=== PATIENT | male | born 1960 | race Caucasian/White ===

== ENCOUNTER 2016-11-18 17:39 | Inpatient (IN) | payer BC ==
[~2016-11-18] VITALS: Ht 177.8 cm; Wt 108.8 kg
[~2016-11-18 17:39] MED LIST: ASPEC325 PO; ATOR-26 PO; CALC500T64 PO; CLB200 PO; CLOP1TAB15 PO; CYM/30 PO; LISI-461 PO; METO-217 PO; OXYSR10 PO; RXC5 PO; SNK PO
--- NOTE | 2016-11-18 18:05 | EMERGENCY ROOM VISIT NOTE ---
History Report prepared by Shannan: Shiv Richter Under the Supervision of: Dr. Albert Pearson M.D. First contact with patient: 17:56 Chief Complaint: ABDOMINAL PAIN Stated Complaint: REFERRED BY DR FOR TEST FOR PANCREATITIS Nursing Triage Summary: Pt presents with epigastric pain since Sat night. states pt had similar sx 6 yrs ago and had 100% blockage in heart. Denies radiation of pain. N/V/D. Pt states he drinks etoh and has high chol and PCP was concerned for pancreatitis. History of Present Illness The patient is a 56 year old male who presents to the Emergency Room with complaints of persistent epigastric pain that started two nights ago. The pain is temporarily relieves with Tums. The pain is not worsened with exertion or when he takes a deep breath. The pain is similar to when he had 100% blockage of the LAD in 2008. The patient had two stents placed. The patient saw his PCP earlier today and was referred to the ED. The patient is on Plavix. He did not take Aspirin today. The patient is on Meloxicam for arthritis. He continues to smoke. Source of History: patient Onset: two nights ago Position: abdomen (epigastric) Timing: other (persistent) Modifying Factors (Worsening): other (NOT worsened with exertion or breathing) Modifying Factors (Relieving): antacids Review of Systems See HPI for pertinent positives & negatives. A total of 10 systems reviewed and were otherwise negative. 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 (15) Myocardial infarction (16) OBESITY, NOS (17) 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 Family History Cancer Diabetes mellitus Heart disease Hypertension Social History Smoking Status: Current Every Day Smoker Alcohol Use: occasionally Drug Use: none Marital Status: Housing Status: lives with family Occupation Status: employed Current/Historical Medications Scheduled Cholecalciferol (Vitamin D3), 5,000 UNITS PO DAILY Clopidogrel (Plavix), 75 MG PO DAILY Coenzyme Q10 (Ubidecarenone) (Coq10), 200 MG PO DAILY Duloxetine HCl (Cymbalta), 60 MG PO DAILY Fenofibrate (Tricor), 160 MG PO DAILY Lisinopril (Zestril), 40 MG PO DAILY Meloxicam (Mobic), 15 MG PO DAILY Metformin Hcl (Glucophage), 1,000 MG PO BID Metoprolol Succinate (Toprol Xl), 50 MG PO DAILY Pravastatin (Pravachol ), 10 MG PO DAILY Turmeric (Curcuma Longa) (Turmeric), 500 MG PO BID Scheduled PRN Omeprazole (Prilosec), 20 MG PO DAILY PRN for GI Upset Tramadol (Ultram), 50 MG PO Q8H PRN for Pain Allergies Coded Allergies: Penicillins (Verified Allergy, Unknown, AMOXICILLIN-RASH, 05/09/14) Adhesives (Unverified Adverse Reaction, Intermediate, Rash, 01/23/15) Physical Exam Vital Signs Date Time Temp Pulse Resp B/P (MAP) Pulse Ox O2 Delivery O2 Flow Rate FiO2 11/18/16 21:25 71 15 168/88 96 Room Air 11/18/16 19:34 76 19 168/88 96 Room Air 11/18/16 18:24 76 11/18/16 18:20 95 Room Air 11/18/16 18:20 95 Room Air 11/18/16 17:53 37.3 76 18 155/84 95 Room Air Physical Exam GENERAL: Patient is a healthy-appearing well-nourished [] HEAD: Normocephalic atraumatic EYES: Ocular movements intact pupils equal and react to light OROPHARYNX mucous membranes are moist no exudates present no erythema or edema present NECK: Supple no nuchal rigidity CHEST: Good equal expansion LUNGS: Clear and equal to auscultation CARDIAC: Normal S1 and S2 ABDOMEN: Tender in the epigastrium. BACK: No CVA tenderness EXTREMITIES: No pain upon palpation normal muscle strength in all groups no clubbing cyanosis or edema NEURO: Patient is following commands and answering questions appropriately. Alert and oriented x3 Cranial Nerves 2-12 grossly intact Medical Decision & Procedures ER Provider Diagnostic Interpretation: X-ray results as stated below per interpretation by me and the radiologist: Radiology results as stated below per my review and radiologist interpretation: CHEST ONE VIEW PORTABLE HISTORY: Atypical CHEST PAIN COMPARISON: Chest 12/29/2014. FINDINGS: The lungs are clear. Cardiac silhouette is normal in size. No pleural effusions. No pneumothorax. Cervical spinal fusion hardware is again noted. IMPRESSION: No acute process. Electronically signed by: Que Cabral M.D. 11/18/2016 6:27 PM Dictated Date/Time: 11/18/2016 6:26 PM ABDOMEN AND PELVIS CT WITH IV CONTRAST CT DOSE: 860.73 mGy.cm HISTORY: Pt c/o epigastric pain TECHNIQUE: Multiaxial CT images of the abdomen and pelvis were performed following the use of intravenous contrast. COMPARISON STUDY: Abdomen and pelvis CT 11/10/2009. FINDINGS: The lung bases are clear. There are few scattered subcentimeter hypodense lesions within the liver. These are too small to characterize but likely represent cysts. The gallbladder, pancreas, spleen, adrenal glands are unremarkable. Moderate calcified plaque within the normal caliber abdominal aorta. The kidneys enhance normally. No hydronephrosis. Mild bilateral perinephric edema. This is similar to the prior study. There is minimal fat stranding adjacent to the posterior wall of the gastric antrum/duodenal bulb. This is best seen on image 162. No pneumoperitoneum. No pneumatosis. No retroperitoneal lymphadenopathy. Normal bladder. No evidence for bowel obstruction. Normal appendix. IMPRESSION: 1. There is minimal fat stranding adjacent to the posterior wall of the gastric antrum/duodenal bulb. This raises the possibility of peptic ulcer disease or a gastritis/duodenitis. Endoscopy is recommended for further evaluation. 2. No evidence for bowel obstruction. 3. Mild bilateral perinephric edema, unchanged. Electronically signed by: Que Cabral M.D. 11/18/2016 8:16 PM Dictated Date/Time: 11/18/2016 8:08 PM Laboratory Results Test 11/18/16 18:28 Erythrocyte Sedimentation Rate 15 mm/hr (0-14) Estimated Average Glucose 148 mg/dl Hemoglobin A1c 6.8 % (4.5-5.6) Phosphorus Level 3.7 mg/dl (2.5-4.9) Total Creatine Kinase 115 U/L (39-308) Creatine Kinase MB < 0.5 ng/ml (0.5-3.6) Creatine Kinase MB Ratio (0-3.0) Troponin I < 0.015 ng/ml (0-0.045) Amylase Level 36 U/L (25-115) Lipase 119 U/L (73-393) 25-Hydroxy Vitamin D Total 41.3 ng/ml (30-100) Thyroid Stimulating Hormone (TSH) 0.958 uIu/ml (0.300-4.500) Labs reviewed by ED physician. Medications Administered Medications (Trade) Dose Ordered Sig/Sanchez Route Start Time Stop Time Status Last Admin Dose Admin Nitroglycerin (Nitrostat Tab) 0.4 mg PRN PRN SL 11/18/16 18:15 11/19/16 02:43 DC 11/18/16 19:08 0.4 MG Famotidine (Pepcid Tab) 20 mg NOW STAT PO 11/18/16 19:18 11/18/16 19:20 DC 11/18/16 19:30 20 MG Sucralfate (Carafate Tab) 1 gm NOW STAT PO 11/18/16 19:18 11/18/16 19:20 DC 11/18/16 19:29 1 GM Sodium Chloride 1,000 ml @ 999 mls/hr Q1H1M STAT IV 11/18/16 19:18 11/18/16 20:18 DC 11/18/16 19:18 999 MLS/HR Lidocaine HCl (Viscous Lidocaine 2% Soln) 20 ml STK-MED ONCE .ROUTE 11/18/16 19:26 11/18/16 19:27 DC 11/18/16 19:30 20 ML Al Hydroxide/Mg Hydroxide (Maalox Susp) 30 ml STK-MED ONCE .ROUTE 11/18/16 19:27 11/18/16 19:28 DC 11/18/16 19:30 30 ML Hydromorphone HCl (Dilaudid Inj) 1 mg NOW STAT IV 11/18/16 19:55 11/18/16 19:57 DC 11/18/16 20:02 1 MG Ondansetron HCl (Zofran Inj) 4 mg NOW STAT IV 11/18/16 19:55 11/18/16 19:57 DC 11/18/16 20:01 4 MG Hydromorphone HCl (Dilaudid Inj) 1 mg NOW STAT IV 11/18/16 20:28 11/18/16 20:29 DC 11/18/16 20:57 1 MG Metoclopramide HCl (Reglan Inj) 10 mg NOW STAT IV 11/18/16 20:28 11/18/16 20:29 DC 11/18/16 20:56 10 MG Pantoprazole Sodium (Protonix IV Bolus/Drip) 1 ea NOW STAT IV 11/18/16 21:28 11/18/16 21:29 DC 11/18/16 21:28 1 EA Pantoprazole Sodium 80 mg/ Dextrose 120 ml @ 480 mls/hr TODAY@2145 IV 11/18/16 21:45 11/18/16 21:59 DC 11/18/16 21:50 480 MLS/HR Pantoprazole Sodium 40 mg/ Dextrose 100 ml @ 20 mls/hr Q5H IV 11/18/16 22:00 11/19/16 02:59 DC 11/19/16 01:47 20 MLS/HR ECG Indication: chest pain Rate (beats per minute): 71 Rhythm: normal sinus Findings: no acute ischemic change, no ectopy, other (old septal infarct) ED Course 1757: Past medical records reviewed. The patient was evaluated in room B11b. A complete history and physical examination was performed. 1814: Nitrostat 0.4 mg SL. 1917: NSS 1000 ml @ 999 mls/hr, Carafate 1 gm PO, Pepcid 20 mg PO, GI Cocktail 24 ml PO. 2019: Reassessed the patient. He would like to stay in the hospital as he still has significant pain. 2027: Reglan 10 mg IV, Dilaudid 1 mg IV. 2114: The patient will be [facility] Decision Differential diagnosis: Etiologies such as cardiac ischemia, aortic dissection, pulmonary embolism, pneumonia, pneumothorax, musculoskeletal, infections, pericarditis, myocarditis , esophageal rupture, gastrointestinal, as well as others were entertained. Blood Pressure Screening: Patient was found to have an elevated blood pressure and was referred to their primary care doctor for recheck and further treatment Medication Reconciliation: I attest that I have personally reviewed the patient' s current medication list This is a 56-year-old male who presents emergency department complaining of severe epigastric pain. The patient notes that he had the same pain when he had a LAD lesion several years ago. Because of this he was given nitroglycerin in the emergency department which did not affect the patient's pain. He has a normal EKG as well as normal CK-MB and troponin. The patient began complaining of even more increased pain therefore he was given a GI cocktail, Pepcid and Carafate with no improvement in his symptoms. He was also given 1 mg of Dilaudid 2, Zofran and Phenergan. Based on my inability to get the patient's pain under control as well as the CAT scan finding as above I did discuss case with the hospitalist service who agreed to admit the patient. The patient also has an elevation in his calcium level Consults Time Called: 2104 Consulting Physician[facility] Con[facility]lin[facility] Returned Call: 2114 The patient will be evaluated. Impression Primary Impression: Epigastric abdominal pain Additional Impression: Ulcer Scribe Attestation The scribe's documentation has been prepared under my direction and personally reviewed by me in its entirety. I confirm that the note above accurately reflects all work, treatment, procedures, and medical decision making performed by me. Departure Information Dispostion Being Evaluated By Hospitalist Referrals Nitish Lam M.D. (PCP) Patient Instructions [facility] Problem Qualifiers
[2016-11-18] MEDS ORDERED: NITROGLYCERIN 0.4 MG SL PER TAB CHARGE SL PRN (18:15)
--- NOTE | 2016-11-18 18:29 | DIAGNOSTIC IMAGING REPORT ---
CHEST ONE VIEW PORTABLE HISTORY: Atypical CHEST PAIN COMPARISON: Chest 12/29/2014. FINDINGS: The lungs are clear. Cardiac silhouette is normal in size. No pleural effusions. No pneumothorax. Cervical spinal fusion hardware is again noted. IMPRESSION: No acute process. Electronically signed by: Que Cabral M.D. 11/18/2016 6:27 PM Dictated Date/Time: 11/18/2016 6:26 PM
[2016-11-18 18:46] LABS: BASO % 0.5 %; BASO ABS # 0.04 K/uL (0-0.2); COMPLETE YES; EOS % 0.6 %; HEMATOCRIT 41.7 % (42-52); IG% 0.5 %; LYMPH % 24.6 %; LYMPH ABS # 2.11 K/uL (1.2-3.4); MEAN CELL VOLUME 93.3 fL (80-100); MEAN CORPUSCULAR HEMOGLOBIN 33.1 pg (25-34); MEAN CORPUSCULAR HGB CONC 35.5 g/dl (32-36); MEAN PLATELET VOLUME 10.6 fL (7.4-10.4); MONO % 7.1 %; NEUT % 66.7 %; PLATELET COUNT 291 K/uL (130-400); RED BLOOD COUNT 4.47 M/uL (4.7-6.1); WHITE BLOOD COUNT 8.56 K/uL (4.8-10.8)
[2016-11-18 19:06] LABS: BLOOD UREA NITROGEN 12 mg/dl (7-18); BUN/CREATININE RATIO 11.3 (10-20); CARBON DIOXIDE 26 mmol/L (21-32); CHLORIDE 102 mmol/L (98-107); GLUCOSE 138 mg/dl (70-99); POTASSIUM 3.9 mmol/L (3.5-5.1); SODIUM 137 mmol/L (136-145)
[2016-11-18 19:11] LABS: ALKALINE PHOSPHATASE 68 U/L (45-117); ALT/SGPT 28 U/L (12-78); AST/SGOT 16 U/L (15-37)
[2016-11-18] MEDS ORDERED: LISI40TA PO (19:16)
[2016-11-18] MEDS ORDERED: GLC/500 PO (19:17)
[2016-11-18] MEDS ORDERED: MELO15TA4 PO (19:17)
[2016-11-18] MEDS ORDERED: SUCRALFATE 1 GM TAB PO STA (19:18)
[2016-11-18] MEDS ORDERED: SODIUM CHLORIDE 0.9% 1000ML 1,000 ML IV STA (19:18)
[2016-11-18] MEDS ORDERED: GI COCKTAIL PO STA (19:18)
[2016-11-18] MEDS ORDERED: FAMOTIDINE 20 MG TAB PO STA (19:18)
[2016-11-18] MEDS ORDERED: FENO1TAB PO (19:19)
[2016-11-18] MEDS ORDERED: COEN1CAP7 PO (19:20)
[2016-11-18] MEDS ORDERED: CHOLCAP5 PO (19:23)
[2016-11-18] MEDS ORDERED: TRAM-10 PO (19:24)
[2016-11-18] MEDS ORDERED: PRLSR20 PO (19:25)
[2016-11-18] MEDS ORDERED: TURM1CAP4 PO (19:26)
[2016-11-18] MEDS ORDERED: LIDOCAINE HCL 2% VISC SOLN 20 ML UDC ONE (19:26)
[2016-11-18] MEDS ORDERED: ALUMINUM/MAGNESIUM SUSP 30 ML UDC ONE (19:27)
[2016-11-18] MEDS ORDERED: PRAV20TA PO (19:31)
[2016-11-18 19:54] LABS: AMYLASE 36 U/L (25-115)
[2016-11-18] MEDS ORDERED: HYDROmorphone INJ 1 MG/ML SYR IV STA ×2 (19:55→20:28)
[2016-11-18] MEDS ORDERED: ONDANSETRON INJ 2 MG/ML 2 ML VIAL IV STA (19:55)
[2016-11-18] MEDS ORDERED: OPTIRAY 320 IV PRN (20:00)
--- NOTE | 2016-11-18 20:17 | DIAGNOSTIC IMAGING REPORT ---
ABDOMEN AND PELVIS CT WITH IV CONTRAST CT DOSE: 860.73 mGy.cm HISTORY: Pt c/o epigastric pain TECHNIQUE: Multiaxial CT images of the abdomen and pelvis were performed following the use of intravenous contrast. COMPARISON STUDY: Abdomen and pelvis CT 11/10/2009. FINDINGS: The lung bases are clear. There are few scattered subcentimeter hypodense lesions within the liver. These are too small to characterize but likely represent cysts. The gallbladder, pancreas, spleen, adrenal glands are unremarkable. Moderate calcified plaque within the normal caliber abdominal aorta. The kidneys enhance normally. No hydronephrosis. Mild bilateral perinephric edema. This is similar to the prior study. There is minimal fat stranding adjacent to the posterior wall of the gastric antrum/duodenal bulb. This is best seen on image 162. No pneumoperitoneum. No pneumatosis. No retroperitoneal lymphadenopathy. Normal bladder. No evidence for bowel obstruction. Normal appendix. IMPRESSION: 1. There is minimal fat stranding adjacent to the posterior wall of the gastric antrum/duodenal bulb. This raises the possibility of peptic ulcer disease or a gastritis/duodenitis. Endoscopy is recommended for further evaluation. 2. No evidence for bowel obstruction. 3. Mild bilateral perinephric edema, unchanged. Electronically signed by: Que Cabral M.D. 11/18/2016 8:16 PM Dictated Date/Time: 11/18/2016 8:08 PM
[2016-11-18] MEDS ORDERED: METOCLOPRAMIDE HCL INJ 5 MG/ML 2 ML VIAL IV STA (20:28)
[2016-11-18] MEDS ORDERED: PANTOprazole INJ 80 MG in DEXTROSE 5% 100ML IV SCH (21:45)
[2016-11-18] MEDS ORDERED: PANTOprazole INJ 40 MG in DEXTROSE 5% 100ML IV SCH (22:00)
[2016-11-18] MEDS ORDERED: NSS + 20MEQ KCL 1000ML 1,000 ML IV SCH (22:12)
[2016-11-18] MEDS ORDERED: ONDANSETRON INJ 2 MG/ML 2 ML VIAL IV PRN (22:15)
[2016-11-18] MEDS ORDERED: GLUCOSE 40% GEL 15 GM TUBE PO PRN (22:30)
[2016-11-18] MEDS ORDERED: GLUCOSE 10 TABS/TUBE PO PRN (22:30)
[2016-11-18] MEDS ORDERED: DEXTROSE 50% 50 ML SYR IV PRN (22:30)
[2016-11-18] MEDS ORDERED: GLUCAGON FOR INJ 1 MG VIAL SQ PRN (22:30)
--- NOTE | 2016-11-18 22:36 | History and Physical ---
History & Physical Date & Time of Service: Nov 18, 2016 at 22:18 Chief Complaint: Referred By For Test For Pancreatitis Primary Care Physician: Nitish Lam M.D. History of Present Illness Source: patient The patient is a 56-year-old male who presents to the emergency department with severe epigastric pain and bloating, which has been accompanied by nausea and vomiting the past 2 nights, who had been seen by his PCP early in the day today , and was referred to the ED for assessment. The patient had an LAD blockage in 2008 that required 2 stents, was concerned that his symptoms might be indicative of a heart issue. He has not had any recent travels or sick exposures. Has not had any change in dietary intake preceding these symptoms, but has had decreased oral intake since that time due to early satiety. He has not had any blood in stool, but has also had loose stools, and has not noted any blood in vomitus. Past Medical/Surgical History Medical Problems: (1) ANXIETY STATE NOS Status: Chronic (2) ASTHMA, UNSPECIFIED Status: Chronic (3) CHR AIRWAY OBSTRUCT NEC Status: Chronic (4) CORON ATHEROSCLER NOS TYPE VESSEL, [place] OR GRAFT Status: Chronic (5) DIAB JOVITA WO COMPL, TYPE II OR UNSPEC TYPE, NOT UNCNTRLD Status: Chronic (6) DIVERTICULOSIS COLON (W/O MENT OF HEMORRHAGE) Status: Chronic (7) ESOPHAGEAL REFLUX Status: Chronic (8) FAM HX-DIABETES MELLITUS Status: Chronic (9) FAMILY HISTORY OF OTHER CARDIOVASCULAR DISEASES Status: Chronic (10) FAMILY HX-MALIGNANCY NOS Status: Chronic (11) HYPERLIPIDEMIA NEC/NOS Status: Chronic (12) HYPERTENSION NOS Status: Chronic (13) 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 Status: Chronic (14) Myocardial infarction Status: Resolved (15) OBESITY, NOS Status: Chronic (16) 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 Family History Cancer Diabetes mellitus Heart disease Hypertension Social History Smoking Status: Current Every Day Smoker Smokeless Tobacco Use: No Alcohol Use: none Drug Use: none Marital Status: Housing status: lives with family Occupational Status: employed Immunizations History of Influenza Vaccine: No History of Tetanus Vaccine?: No History of Pneumococcal: No History of Hepatitis B Vaccine: No Multi-Drug Resistant Organisms History of MDRO: No Allergies Coded Allergies: Penicillins (Verified Allergy, Unknown, AMOXICILLIN-RASH, 05/09/14) Adhesives (Unverified Adverse Reaction, Intermediate, Rash, 01/23/15) Home Medications Scheduled Cholecalciferol (Vitamin D3), 5,000 UNITS PO DAILY Clopidogrel (Plavix), 75 MG PO DAILY Coenzyme Q10 (Ubidecarenone) (Coq10), 200 MG PO DAILY Duloxetine HCl (Cymbalta), 60 MG PO DAILY Fenofibrate (Tricor), 160 MG PO DAILY Lisinopril (Zestril), 40 MG PO DAILY Meloxicam (Mobic), 15 MG PO DAILY Metformin Hcl (Glucophage), 1,000 MG PO BID Metoprolol Succinate (Toprol Xl), 50 MG PO DAILY Pravastatin (Pravachol ), 10 MG PO DAILY Turmeric (Curcuma Longa) (Turmeric), 500 MG PO BID Scheduled PRN Omeprazole (Prilosec), 20 MG PO DAILY PRN for GI Upset Tramadol (Ultram), 50 MG PO Q8H PRN for Pain Review of Systems The patient denies chest pain, shortness of breath, palpitations, lower extremity swelling, sore throat, fevers, chills, sweats, weight change, pelvic pain, blood in urine or stool, dysuria, urinary frequency or urgency, lightheadedness, dizziness, headache, memory loss, rash, abnormal bruising or bleeding, imbalance, focal or generalized weakness, numbness or tingling in arms or legs, arthralgias or myalgias, back or neck pain, night sweats, or allergy symptoms. The review of systems is otherwise negative other than for that already noted above, and at least 10 systems have been reviewed. Physical Exam Vital Signs Date Time Temp Pulse Resp B/P (MAP) Pulse Ox O2 Delivery O2 Flow Rate FiO2 11/18/16 21:25 71 15 168/88 96 Room Air 11/18/16 19:34 76 19 168/88 96 Room Air 11/18/16 18:24 76 11/18/16 18:20 95 Room Air 11/18/16 18:20 95 Room Air 11/18/16 17:53 37.3 76 18 155/84 95 Room Air The patient is awake, well-developed and adequately nourished, alert and oriented 3, normocephalic and atraumatic, lying in bed and in no acute distress. HEENT--PERRL, EOMI, mucous membranes and oropharynx dry. Neck--supple, no JVD or bruits, thyroid normal, trachea midline, no adenopathy. Heart--normal S1 and S2, no extra beats, no murmurs, rubs or gallops. Lungs--clear bilaterally but decreased throughout, no respiratory distress, no accessory muscle use. Abdomen--normal bowel sounds and soft, nontender and nondistended, no hernias or masses, no organomegaly and obese. Extremities--no cyanosis, clubbing or edema. There are good distal pulses b/l. Dermatologic--normal skin turgor, normal color, warm and dry, no abnormal lymph nodes, no rash. Neurologic--cranial nerves II through XII grossly intact. Rheumatologic--normal range of motion, nontender, muscles and joints. Psychiatric--normal affect. Diagnostics Laboratory Results Results Past 24 Hours Test 11/18/16 18:28 11/18/16 22:06 11/18/16 22:10 Range/Units White Blood Count 8.56 4.8-10.8 K/uL Red Blood Count 4.47 4.7-6.1 M/uL Hemoglobin 14.8 14.0-18.0 g/dL Hematocrit 41.7 42-52 % Mean Corpuscular Volume 93.3 80-100 fL Mean Corpuscular Hemoglobin 33.1 25-34 pg Mean Corpuscular Hemoglobin Concent 35.5 32-36 g/dl Platelet Count 291 130-400 K/uL Mean Platelet Volume 10.6 7.4-10.4 fL Neutrophils (%) (Auto) 66.7 % Lymphocytes (%) (Auto) 24.6 % Monocytes (%) (Auto) 7.1 % Eosinophils (%) (Auto) 0.6 % Basophils (%) (Auto) 0.5 % Neutrophils # (Auto) 5.71 1.4-6.5 K/uL Lymphocytes # (Auto) 2.11 1.2-3.4 K/uL Monocytes # (Auto) 0.61 0.11-0.59 K/uL Eosinophils # (Auto) 0.05 0-0.5 K/uL Basophils # (Auto) 0.04 0-0.2 K/uL RDW Standard Deviation 44.2 36.4-46.3 fL RDW Coefficient of Variation 13.0 11.5-14.5 % Immature Granulocyte % (Auto) 0.5 % Immature Granulocyte # (Auto) 0.04 0.00-0.02 K/uL Sodium Level 137 136-145 mmol/L Potassium Level 3.9 3.5-5.1 mmol/L Chloride Level 102 98-107 mmol/L Carbon Dioxide Level 26 21-32 mmol/L Anion Gap 9.0 3-11 mmol/L Blood Urea Nitrogen 12 7-18 mg/dl Creatinine 1.10 0.60-1.40 mg/dl Est Creatinine Clear Calc Drug Dose 90.5 ml/min Estimated GFR () 85.3 Estimated GFR (Non- 73.6 BUN/Creatinine Ratio 11.3 10-20 Random Glucose 138 70-99 mg/dl Calcium Level 12.0 8.5-10.1 mg/dl Total Bilirubin 0.4 0.2-1 mg/dl Direct Bilirubin < 0.1 0-0.2 mg/dl Aspartate Amino Transf (AST/SGOT) 16 15-37 U/L Alanine Aminotransferase (ALT/SGPT) 28 12-78 U/L Alkaline Phosphatase 68 45-117 U/L Total Creatine Kinase 115 39-308 U/L Creatine Kinase MB < 0.5 0.5-3.6 ng/ml Creatine Kinase MB Ratio 0-3.0 Troponin I < 0.015 0-0.045 ng/ml Total Protein 7.7 6.4-8.2 gm/dl Albumin 4.1 3.4-5.0 gm/dl Amylase Level 36 25-115 U/L Lipase 119 73-393 U/L Diagnostic Radiology Patient Name: RAKEL GAXIOLA Unit Number: [id number] Dictated: 11/18/161825 Transcribed: 11/18/161825 [facility] Printed Date/Time: [~ rep prt dt]/[~ rep prt tm] [~ rep ct labl] - [~ rep ct ivnm] [facility] Radiology Department [place], [place] [address] Dictated: 11/18/161825 Transcribed: 11/18/161825 [facility] Printed Date/Time: [~ rep prt dt]/[~ rep prt tm] [~ rep ct labl] - [~ rep ct ivnm] CHEST ONE VIEW PORTABLE HISTORY: Atypical CHEST PAIN COMPARISON: Chest 12/29/2014. FINDINGS: The lungs are clear. Cardiac silhouette is normal in size. No pleural effusions. No pneumothorax. Cervical spinal fusion hardware is again noted. IMPRESSION: No acute process. Electronically signed by: Que Cabral M.D. 11/18/2016 6:27 PM Dictated Date/Time: 11/18/2016 6:26 PM The status of this report is Signed. Draft = Not yet reviewed or approved by Radiologist. Signed = Reviewed and approved by Radiologist. <AttendingPhy></AttendingPhy> <FamilyPhy>Nitish Lam M.D.</FamilyPhy > <PrimaryPhy>Nitish Lam M.D.</PrimaryPhy> <UnitNumber>[id number]</ UnitNumber> <VisitNumber>[id number]</VisitNumber> <PatientName>RAKEL GAXIOLA JR</PatientName> <DateOfBirth>1960</DateOfBirth> <Location>[facility]</ Location> <ServiceDate>11/18/16</ServiceDate> <MNE>ESINDI</MNE> <OrderingPhy> Albert Pearson MD</OrderingPhy> <OrderingPhyMNE>f rep ord dr null</ OrderingPhyMNE> <DictatingPhyMNE>f rep dict dr null</DictatingPhyMNE> <CCListMNE> f rep ct asae</CCListMNE> <AdmittingPhyMNE>f pt admit dr null</AdmittingPhyMNE> < AttendingPhyMNE>f pt attend dr null</AttendingPhyMNE> <ConsultingPhyMNE>f pt consult dr null</ConsultingPhyMNE> <FamilyPhyMNE>f pt fam dr null</FamilyPhyMNE> <OtherPhyMNE>f pt other dr null</OtherPhyMNE> < PrimaryPhyMNE>f pt prim care dr null</PrimaryPhyMNE> <ReferringPhyMNE>f pt referring dr null</ReferringPhyMNE> Patient Name: RAKEL GAXIOLA JR Unit Number: [id number] Dictated: 11/18/162007 Transcribed: 11/18/162007 [facility] Printed Date/Time: [~ rep prt dt]/[~ rep prt tm] [~ rep ct labl] - [~ rep ct ivnm] [facility] [place] [address] Dictated: 11/18/162007 Transcribed: 11/18/162007 [facility] Printed Date/Time: [~ rep prt dt]/[~ rep prt tm] [~ rep ct labl] - [~ rep ct ivnm] ABDOMEN AND PELVIS CT WITH IV CONTRAST CT DOSE: 860.73 mGy.cm HISTORY: Pt c/o epigastric pain TECHNIQUE: Multiaxial CT images of the abdomen and pelvis were performed following the use of intravenous contrast. COMPARISON STUDY: Abdomen and pelvis CT 11/10/2009. FINDINGS: The lung bases are clear. There are few scattered subcentimeter hypodense lesions within the liver. These are too small to characterize but likely represent cysts. The gallbladder, pancreas, spleen, adrenal glands are unremarkable. Moderate calcified plaque within the normal caliber abdominal aorta. The kidneys enhance normally. No hydronephrosis. Mild bilateral perinephric edema. This is similar to the prior study. There is minimal fat stranding adjacent to the posterior wall of the gastric antrum/duodenal bulb. This is best seen on image 162. No pneumoperitoneum. No pneumatosis. No retroperitoneal lymphadenopathy. Normal bladder. No evidence for bowel obstruction. Normal appendix. IMPRESSION: 1. There is minimal fat stranding adjacent to the posterior wall of the gastric antrum/duodenal bulb. This raises the possibility of peptic ulcer disease or a gastritis/duodenitis. Endoscopy is recommended for further evaluation. 2. No evidence for bowel obstruction. 3. Mild bilateral perinephric edema, unchanged. Electronically signed by: Que Cabral M.D. 11/18/2016 8:16 PM Dictated Date/Time: 11/18/2016 8:08 PM The status of this report is Signed. Draft = Not yet reviewed or approved by Radiologist. Signed = Reviewed and approved by Radiologist. <AttendingPhy></AttendingPhy> <FamilyPhy>Nitish Lam M.D.</FamilyPhy > <PrimaryPhy>Nitish Lam M.D.</PrimaryPhy> <UnitNumber>[id number]</ UnitNumber> <VisitNumber>[id number]</VisitNumber> <PatientName>RAKEL GAXIOLA JR</PatientName> <DateOfBirth>1960</DateOfBirth> <Location>C.ED[facility]</ Location> <ServiceDate>11/18/16</ServiceDate> <MNE>ESINDI</MNE> <OrderingPhy> Albert Pearson MD</OrderingPhy> <OrderingPhyMNE>f rep ord dr null</ OrderingPhyMNE> <DictatingPhyMNE>f rep dict dr null</DictatingPhyMNE> <CCListMNE> f rep ct asae</CCListMNE> <AdmittingPhyMNE>f pt admit dr null</AdmittingPhyMNE> < AttendingPhyMNE>f pt attend dr null</AttendingPhyMNE> <ConsultingPhyMNE>f pt consult dr null</ConsultingPhyMNE> <FamilyPhyMNE>f pt fam dr null</FamilyPhyMNE> <OtherPhyMNE>f pt other dr null</OtherPhyMNE> < PrimaryPhyMNE>f pt prim care dr null</PrimaryPhyMNE> <ReferringPhyMNE>f pt referring dr null</ReferringPhyMNE> EKG EKG shows normal sinus rhythm at 71 bpm, old septal [place], no change compared to . Impression Assessment and Plan Epigastric abdominal pain/CT of abdomen and pelvis with questionable peptic ulcer disease versus gastritis or duodenitis--the patient be admitted to the medical floor with nothing by mouth after midnight except meds status. We'll start him on a Protonix bolus and then drip, normal saline with KCl 20 mEq at 100 mils per hour. We'll consult gastroenterology for possible EGD. Hypercalcemia--calcium was normal last year, and admission labs today show a calcium of 12.0. We'll treat him with pamidronate 60 mg IV x 1 tonight, and hydrate as noted above. We'll check a sedimentation rate, STEPHANIE, PTH, TSH, GOOD level, calcium and phosphorus. Order CT of the chest without contrast. Follow serial BMP and magnesium levels. 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 We'll order an MRI the brain to assess for pituitary tumor. Workup also includes for hyperparathyroidism, and possible Alix-Mcgrath syndrome. Separately, he is having laboratories to assess for sarcoidosis. CAD/hypertension/LAD stents 2 in 2008--continue Plavix 75 mg by mouth daily, lisinopril 40 mg by mouth daily and metoprolol succinate 50 mg by mouth daily. Hold meloxicam 15 mg by mouth daily. We'll follow on telemetry for serial cardiac enzymes and cardiac rhythm monitoring. Diabetes mellitus--hold metformin 1000 mg by mouth twice a day. Check a hemoglobin A1c. Place on Accu-Cheks before meals and at bedtime with NovoLog coverage. Hyperlipidemia--tinny Pravachol 10 mg by mouth daily and fenofibrate 160 mg by mouth daily. Depression/myalgias--continue duloxetine 60 mg by mouth daily, CoQ10 200 mg by mouth daily and vitamin D3 5000 into Patrick units by mouth daily. Hold turmeric due to nonformulary status. Level of Care Telemetry Advanced Directives Existing Advance Directive: No Existing Living Will: No Existing Power of Wax Pattern Coater: No Resuscitation Status FULL RESUSCITATION VTE Prophylaxis VTE Risk Assessment Done? Y/N: Yes Risk Level: Moderate Given or contraindicated: SCD's Social Service Consult None Apply
[2016-11-18 22:56] LABS: CALCIUM 11.9 mg/dl (8.5-10.1); PHOSPHORUS 3.7 mg/dl (2.5-4.9); THYROID STIMULATING HORMONE 0.958 uIu/ml (0.300-4.500)
[2016-11-19] VITALS (9 sets, daily range): BP systolic 111–127; BP diastolic 67–78; PULSE 56–67; TEMP 36.5–37; O2SAT 92–97; Ht 177.8 cm; Wt 108.8 kg
[2016-11-19] MEDS: INSULIN ASPART 100 UNITS/ML 3 ML PEN SC SCH ×5 (00:57→21:49)
[2016-11-19] MEDS ORDERED: NURSING VERBAL MED ORDER ONE ×2 (01:30→01:45)
[2016-11-19] MEDS ORDERED: PAMIDRONATE DISODIUM IV INJ 60 MG in SODIUM CHLORIDE 0.9% 1000ML 1,000 ML IV ONE (01:45)
[2016-11-19] MEDS ORDERED: GADAVIST IV PRN (02:00)
[2016-11-19] MEDS ORDERED: MoRPHine SULFATE 2 MG/ML CARP ONE (02:04)
[2016-11-19] MEDS: PANTOprazole INJ 40 MG in DEXTROSE 5% 100ML IV SCH ×2 (05:23→07:32)
[2016-11-19] MEDS: MoRPHine SULFATE 2 MG/ML CARP IV PRN ×3 (05:23→10:03)
[2016-11-19 05:51] LABS: BASO % 0.6 %; BASO ABS # 0.04 K/uL (0-0.2); COMPLETE YES; EOS % 0.9 %; HEMATOCRIT 38.3 % (42-52); IG% 0.3 %; LYMPH % 30.5 %; LYMPH ABS # 1.94 K/uL (1.2-3.4); MEAN CELL VOLUME 94.8 fL (80-100); MEAN CORPUSCULAR HEMOGLOBIN 31.4 pg (25-34); MEAN CORPUSCULAR HGB CONC 33.2 g/dl (32-36); MEAN PLATELET VOLUME 10.4 fL (7.4-10.4); MONO % 10.8 %; NEUT % 56.9 %; PLATELET COUNT 243 K/uL (130-400); RED BLOOD COUNT 4.04 M/uL (4.7-6.1); WHITE BLOOD COUNT 6.36 K/uL (4.8-10.8)
[2016-11-19 06:24] LABS: ESTIMATED AVERAGE GLUCOSE 148 mg/dl; HA1C FLAG Normal (Normal)
[2016-11-19 06:26] LABS: BUN/CREATININE RATIO 14.4 (10-20); CREATININE 1.1 mg/dl (0.60-1.40); MAGNESIUM 2.2 mg/dl (1.8-2.4); POTASSIUM 4.1 mmol/L (3.5-5.1)
--- NOTE | 2016-11-19 08:18 | Gastrointestinal Consultation ---
Gastrointestinal Consultation Date of Consultation: Nov 19, 2016 Attending Physician: Dr. Conklin Consulting Physician: Dr. Gross Reason for Consultation: Epigastric pain History of Present Illness Patient is a 56 year old male with a PMHX of CAD who presented to the ER yesterday with complaints of severe epigastric pain and bloating for the previous 2 days. He did have associated nausea and vomiting, however, he denied any hematemesis, melena or hematochezia. He does have a history of cardiac cath with stent placement, however, his Troponin was unremarkable. His initial H/H was 14.8/41.7. He does admit to daily Ibuprofen use. He underwent CT Abd/pelvis for further evaluation and was noted to have questionable peptic ulcer disease. He was subsequently admitted to the PCU and started on a Protonix gtt. At the time I saw the patient, he stated that he was feeling much better. He did still complain of mid-epigastric abdominal pain 4/10 in intensity, described as sharp and constant, non-radiating, without exacerbating factors. He denied any melena or hematemesis. He further denies any history of undergoing an EGD in the past. He denies any further complaints. Past Medical/Surgical History Medical Problems: (1) Epigastric abdominal pain Status: Acute (2) Ulcer Status: Acute Past Surgical History: None Family History Cancer Diabetes mellitus Heart disease Hypertension Social History Smoking Status: Current Some Day Smoker Alcohol Use: occasionally Drug Use: none Marital Status: Housing Status: lives with family Occupation Status: employed Allergies Coded Allergies: Penicillins (Verified Allergy, Unknown, AMOXICILLIN-RASH, 05/09/14) Adhesives (Unverified Adverse Reaction, Intermediate, Rash, 01/23/15) Current Medications Home Meds and Scripts Medications Dose Route/Sig Max Daily Dose Days Date Category Pravachol (Pravastatin Sodium) 20 Mg Tab 10 Mg PO DAILY 11/18/16 Reported Turmeric (Turmeric (Curcuma Longa)) 500 Mg Cap 500 Mg PO BID 11/18/16 Reported Prilosec (Omeprazole) 20 Mg Capcr 20 Mg PO DAILY PRN 11/18/16 Reported Ultram (Tramadol HCl) 50 Mg Tab 50 Mg PO Q8H PRN 11/18/16 Reported Vitamin D3 (Cholecalciferol) 5,000 Unit Cap 5,000 Units PO DAILY 11/18/16 Reported Coq10 (Coenzyme Q10 (Ubidecarenone)) 200 Mg Cap 200 Mg PO DAILY 11/18/16 Reported Tricor (Fenofibrate) 160 Mg Tab 160 Mg PO DAILY 11/18/16 Reported Glucophage (Metformin Hcl) 500 Mg Tab 1,000 Mg PO BID 11/18/16 Reported Mobic (Meloxicam) 15 Mg Tab 15 Mg PO DAILY 11/18/16 Reported Zestril (Lisinopril) 40 Mg Tab 40 Mg PO DAILY 11/18/16 Reported Cymbalta (Duloxetine HCl) 30 Mg Cap 60 Mg PO DAILY 01/23/15 Reported Toprol Xl (Metoprolol Succinate) 50 Mg Tabcr 50 Mg PO DAILY 03/29/14 Reported Plavix (Clopidogrel Bisulfate) 75 Mg Tab 75 Mg PO DAILY 03/29/14 Reported Review of Systems Constitutional: No fever, No chills Eyes: No eye pain ENT: No unusual epistaxis Respiratory: No cough, No sputum, No shortness of breath Cardiac: No chest pain, No palpitations Abdomen: No nausea, No vomiting, No diarrhea, No GI bleeding, No dysphagia, No odynophagia, No acolic stools, No jaundice, No dark urine Male : No dysuria, No hematuria Neuro: No weakness, No numbness/tingling Psych: No depression symptoms Heme: No abnormal bleeding/bruising Endo: No fatigue Skin: No rash Physical Exam Date Time Temp Pulse Resp B/P (MAP) Pulse Ox O2 Delivery O2 Flow Rate FiO2 11/19/16 07:53 36.5 60 16 121/73 (89) 96 Room Air 11/19/16 04:00 Room Air 11/19/16 03:13 36.7 65 17 123/71 (88) 96 Room Air 11/19/16 01:07 37.0 67 20 122/78 92 Room Air 11/18/16 22:49 69 15 124/67 93 Room Air 11/18/16 21:25 71 15 168/88 96 Room Air 11/18/16 19:34 76 19 168/88 96 Room Air 11/18/16 18:24 76 11/18/16 18:20 95 Room Air 11/18/16 18:20 95 Room Air 11/18/16 17:53 37.3 76 18 155/84 95 Room Air General Appearance: no apparent distress, + obese Eyes: PERRL, EOMI ENT: hearing grossly normal Neck: supple, no adenopathy Respiratory/Chest: lungs clear Cardiovascular: regular rate, rhythm, no edema, no murmur Abdomen: soft, + tenderness (midepigastric) Extremities: no pedal edema Neurologic/Psych: alert, normal mood/affect, oriented x 3 Skin: normal color Laboratory Results Last 24 Hours Test 11/18/16 18:28 11/18/16 22:48 11/19/16 00:49 11/19/16 05:13 White Blood Count 8.56 K/uL 6.36 K/uL Red Blood Count 4.47 M/uL 4.04 M/uL Hemoglobin 14.8 g/dL 12.7 g/dL Hematocrit 41.7 % 38.3 % Mean Corpuscular Volume 93.3 fL 94.8 fL Mean Corpuscular Hemoglobin 33.1 pg 31.4 pg Mean Corpuscular Hemoglobin Concent 35.5 g/dl 33.2 g/dl Platelet Count 291 K/uL 243 K/uL Mean Platelet Volume 10.6 fL 10.4 fL Neutrophils (%) (Auto) 66.7 % 56.9 % Lymphocytes (%) (Auto) 24.6 % 30.5 % Monocytes (%) (Auto) 7.1 % 10.8 % Eosinophils (%) (Auto) 0.6 % 0.9 % Basophils (%) (Auto) 0.5 % 0.6 % Neutrophils # (Auto) 5.71 K/uL 3.61 K/uL Lymphocytes # (Auto) 2.11 K/uL 1.94 K/uL Monocytes # (Auto) 0.61 K/uL 0.69 K/uL Eosinophils # (Auto) 0.05 K/uL 0.06 K/uL Basophils # (Auto) 0.04 K/uL 0.04 K/uL RDW Standard Deviation 44.2 fL 45.2 fL RDW Coefficient of Variation 13.0 % 13.0 % Immature Granulocyte % (Auto) 0.5 % 0.3 % Immature Granulocyte # (Auto) 0.04 K/uL 0.02 K/uL Erythrocyte Sedimentation Rate 15 mm/hr Sodium Level 137 mmol/L 140 mmol/L Potassium Level 3.9 mmol/L 4.1 mmol/L Chloride Level 102 mmol/L 106 mmol/L Carbon Dioxide Level 26 mmol/L 27 mmol/L Anion Gap 9.0 mmol/L 7.0 mmol/L Blood Urea Nitrogen 12 mg/dl 16 mg/dl Creatinine 1.10 mg/dl 1.10 mg/dl Est Creatinine Clear Calc Drug Dose 90.5 ml/min 90.4 ml/min Estimated GFR () 85.3 85.3 Estimated GFR (Non- 73.6 73.6 BUN/Creatinine Ratio 11.3 14.4 Random Glucose 138 mg/dl 127 mg/dl Estimated Average Glucose 148 mg/dl Hemoglobin A1c 6.8 % Calcium Level 11.9 mg/dl Phosphorus Level 3.7 mg/dl Total Bilirubin 0.4 mg/dl 0.4 mg/dl Direct Bilirubin < 0.1 mg/dl 0.1 mg/dl Aspartate Amino Transf (AST/SGOT) 16 U/L 16 U/L Alanine Aminotransferase (ALT/SGPT) 28 U/L 23 U/L Alkaline Phosphatase 68 U/L 57 U/L Total Creatine Kinase 115 U/L Creatine Kinase MB < 0.5 ng/ml Creatine Kinase MB Ratio Troponin I < 0.015 ng/ml Total Protein 7.7 gm/dl 6.4 gm/dl Albumin 4.1 gm/dl 3.4 gm/dl Amylase Level 36 U/L Lipase 119 U/L 25-Hydroxy Vitamin D Total 41.3 ng/ml Thyroid Stimulating Hormone (TSH) 0.958 uIu/ml Parathyroid Hormone (Intact) < 5.5 pg/mL Bedside Glucose 133 mg/dl Prothrombin Time 11.0 SECONDS Prothromb Time International Ratio 1.0 Activated Partial Thromboplast Time 25.2 SECONDS Partial Thromboplastin Ratio 1.0 Magnesium Level 2.2 mg/dl Test 11/19/16 06:48 Bedside Glucose 126 mg/dl Impression Impression: Patient is a 56 year old male with history of CAD who presented with Midepigastric abdominal pain with chronic NSAID use, and CT imaging showing questinable PUD. Plan: Continue Protonix gtt at this time Perform EGD today for further evaluation
--- NOTE | 2016-11-19 08:21 | DIAGNOSTIC IMAGING REPORT ---
CT SCAN OF THE CHEST WITHOUT IV CONTRAST CLINICAL HISTORY: Hypercalcemia. COMPARISON STUDY: Chest radiograph dated 11/18/2016. TECHNIQUE: CT scan of the thorax was performed from the thoracic inlet to the upper abdomen. Images are reviewed in the axial, sagittal, and coronal planes. IV contrast was not administered for this examination as per the referring clinician. CT DOSE: 739.29 mGy.cm FINDINGS: Thyroid: Imaged portions of the thyroid gland are normal in size and attenuation. Thoracic aorta: There is atherosclerotic calcification of the thoracic aorta, which is normal in caliber and demonstrates standard 3-vessel arch anatomy. Heart: The heart is normal in size and without pericardial effusion. The coronary arteries are densely calcified. The pulmonary trunk is mildly dilated, measuring 3.5 cm. This suggests pulmonary artery hypertension. Lungs and pleural spaces: Mild paraseptal emphysematous change is seen at the lung apices. No airspace consolidation or pleural effusion is identified. The trachea and central airways are clear. There are scattered tiny calcified granulomas. No concerning pulmonary lesion is identified. Mediastinum: There is no mediastinal lymphadenopathy. Leslie: Not well assessed without IV contrast. Axillae: There is no axillary lymphadenopathy. Upper abdomen: Excreted contrast is seen within the partially imaged left renal collecting system. There is cortical retention of contrast suggesting acute renal injury. A tiny hiatal hernia is identified. Adrenal glands are normal in appearance. Mild hepatic steatosis is suggested. Skeletal structures: No lytic or blastic bony lesions are seen. Fusion hardware is seen in the lower cervical spine. Degenerative changes noted throughout the thoracic spine. IMPRESSION: 1. Mild emphysema. 2. There is no airspace consolidation. 3. No mediastinal lymphadenopathy is seen. 4. There is excreted contrast present within the partially imaged left renal collecting system. There is cortical retention of contrast with a striated appearance suggesting acute renal injury. Correlation with clinical findings and serum creatinine levels will be required. Electronically signed by: Kevon Hwang M.D. 11/19/2016 8:20 AM Dictated Date/Time: 11/19/2016 8:16 AM
--- NOTE | 2016-11-19 09:08 | DIAGNOSTIC IMAGING REPORT ---
MRI OF THE BRAIN COMBO PITUITARY GLAND PROTOCOL CLINICAL HISTORY: Generalized abdominal pain. Vomiting. Dizziness. COMPARISON STUDY: TECHNIQUE: MRI of the brain was performed utilizing various T1 and T2-weighted sequences in the axial, sagittal, and coronal planes. Contrast-enhanced sequences were acquired following the administration of 10 cc of Gadavist. Additional high-resolution imaging of the pituitary gland is performed both pre and postcontrast. This includes dynamic postcontrast coronal imaging. FINDINGS: Brain parenchyma: There is mild patchy subcortical and periventricular microangiopathic disease. There is no hemorrhage or mass effect. There is no restricted diffusion to suggest acute ischemia. No enhancing mass lesion is identified on the postcontrast images. Tidwell-white matter differentiation is preserved. No extra-axial fluid collection is seen. The cerebellar tonsils are normal in configuration. Ventricles, sulci, and cisterns: Normal in configuration. Pituitary and sella: The pituitary gland and sella are normal in appearance. There is no evidence of pituitary lesion/microadenoma. Intracranial vasculature: Normal flow voids are maintained at the skull base. Orbits: The bony orbits are grossly intact. Orbital contents are normal in appearance. Sinuses and mastoids: Clear. Calvarium: Unremarkable. Cervical cord: Partially visualized cervical spinal cord is normal in morphology and signal intensity. IMPRESSION: 1. No acute intracranial abnormality. 2. No pituitary lesion is identified. Electronically signed by: Kevon Hwang M.D. 11/19/2016 9:07 AM Dictated Date/Time: 11/19/2016 8:27 AM
--- NOTE | 2016-11-19 12:56 | GI REPORT ---
Procedure Date: 11/19/2016 12:23 PM Procedure: Upper GI endoscopy Indications: Epigastric abdominal pain Medicines: Monitored Anesthesia Care Complications: No immediate complications. Estimated Blood Loss: Estimated blood loss: none. Procedure: Pre-Anesthesia Assessment: - Prior to the procedure, a History and Physical was performed, and patient medications and allergies were reviewed. The patient's tolerance of previous anesthesia was also reviewed. The risks and benefits of the procedure and the sedation options and risks were discussed with the patient. All questions were answered, and informed consent was obtained. Prior Anticoagulants: The patient has taken Plavix (clopidogrel), last dose was 1 day prior to procedure. ASA Grade Assessment: III - A patient with severe systemic disease. After reviewing the risks and benefits, the patient was deemed in satisfactory condition to undergo the procedure. After obtaining informed consent, the endoscope was passed under direct vision. Throughout the procedure, the patient's blood pressure, pulse, and oxygen saturations were monitored continuously. The scope was introduced through the mouth, and advanced to the second part of duodenum. The upper GI endoscopy was accomplished without difficulty. The patient tolerated the procedure well. Findings: The esophagus was normal. Localized moderate inflammation characterized by erythema was found in the gastric antrum. Biopsies were taken with a cold forceps for Helicobacter pylori testing. One non-bleeding cratered gastric ulcer with no stigmata of bleeding was found at the pylorus. The lesion was 10 mm in largest dimension. The examined duodenum was normal. Impression: - Normal esophagus. - Gastritis. Biopsied. - Non-bleeding gastric ulcer with no stigmata of bleeding. - Normal examined duodenum. Recommendation: - [facility] care. - Advance diet as tolerated. - Stop Protonix gtt. - Use Protonix (pantoprazole) 40 mg PO BID. Eduardo Gross DO 11/19/2016 12:55:21 PM This report has been signed electronically. Note Initiated On: 11/19/2016 12:23 PM I attest to the content of the Intraoperative Record and orders documented therein, exceptions below
[2016-11-19] MEDS ORDERED: ESMOLOL HCL 10 MG/ML 10 ML VIAL ONE (12:57)
[2016-11-19] MEDS ORDERED: PROPOFOL IV EMULSION 10 MG/ML 20 ML VIAL IV ONE (12:57)
[2016-11-19] MEDS ORDERED: LIDOCAINE HCL 2% 2 ML VIAL (20MG/ML) ONE (12:57)
[2016-11-19 13:24] LABS: CALCIUM 9.8 mg/dl (8.5-10.1)
--- NOTE | 2016-11-19 13:28 | Anesthesiology Progress Note ---
Anesthesia Post Op Note Date & Time Nov 19, 2016 at 13:28 Vital Signs Pain Intensity: 0 Vital Signs Past 12 Hours Date Time Temp Pulse Resp B/P (MAP) Pulse Ox O2 Delivery O2 Flow Rate FiO2 11/19/16 13:14 57 18 123/62 (82) 96 Room Air 11/19/16 12:59 69 18 95/60 (72) 96 Room Air 11/19/16 11:58 36.7 69 20 123/62 (82) 95 Room Air 11/19/16 11:45 Room Air 11/19/16 11:14 36.8 57 18 118/73 (88) 97 Room Air 11/19/16 10:22 36.5 60 16 121/73 96 Room Air 11/19/16 08:00 Room Air 11/19/16 07:53 36.5 60 16 121/73 (89) 96 Room Air 11/19/16 04:00 Room Air 11/19/16 03:13 36.7 65 17 123/71 (88) 96 Room Air Notes Mental Status: alert / awake / arousable, participated in evaluation Pt Amnestic to Procedure: Yes Nausea / Vomiting: adequately controlled Pain: adequately controlled Airway Patency, RR, SpO2: stable & adequate BP & HR: stable & adequate Hydration State: stable & adequate Anesthetic Complications: no major complications apparent
--- NOTE | 2016-11-19 15:54 | Progress Note ---
Subjective Date of Service: Nov 19, 2016. Subjective Pt evaluation today including: conversation w/ patient, physical exam, lab review, review of studies, conversation w/ wardrobe image consultant, review of inpatient medication list Pain: epigastric pain PO Intake: NPO Voiding: no voiding problems patient was c/o epigastric pain, 5 out of 10, relieved with Morphine EGD today, 10mm gastric ulcer, gastritis, biopsies taken transfer to medical no other issues other than the epigastric pain Problem List Medical Problems: (1) Epigastric abdominal pain Status: Acute (2) Ulcer Status: Acute Review of Systems Abdomen: + pain (epigastric) All Other Systems: Reviewed and Negative Medications Current Inpatient Medications Medications (Trade) Dose Ordered Sig/Sanchez Route Start Time Stop Time Status Last Admin Dose Admin Ioversol (Optiray 320) 121 ml UD PRN IV 11/18/16 20:00 11/22/16 19:59 Ondansetron HCl (Zofran Inj) 4 mg Q6H PRN IV 11/18/16 22:15 12/18/16 22:14 Insulin Aspart (novoLOG ASPART) SLIDING SCALE If C... ACHS SC 11/18/16 23:45 12/18/16 23:44 Glucose (Glucose 40% Gel) UD PRN PO 11/18/16 22:30 12/18/16 22:29 Glucose (Glucose Chew Tab) 1 tabs UD PRN PO 11/18/16 22:30 12/18/16 22:29 Dextrose (Dextrose 50% 50ML Syringe) 50 ml UD PRN IV 11/18/16 22:30 12/18/16 22:29 Glucagon (Glucagon Inj) 1 mg UD PRN SQ 11/18/16 22:30 12/18/16 22:29 Gadobutrol (Gadavist) 10 mmol UD PRN IV 11/19/16 02:00 11/23/16 01:59 Morphine Sulfate (MoRPHine SULFATE INJ) 2 mg Q2H PRN IV 11/19/16 02:45 12/03/16 02:44 11/19/16 10:03 2 MG Pantoprazole Sodium (Protonix Tab) 40 mg BID PO 11/19/16 20:00 12/19/16 20:59 Sucralfate (Carafate Susp) 1 gm ACHS PO 11/19/16 16:15 12/19/16 16:14 Objective Vital Signs Date Time Temp Pulse Resp B/P (MAP) Pulse Ox O2 Delivery O2 Flow Rate FiO2 11/19/16 15:35 36.7 56 18 127/76 (93) 96 Room Air 11/19/16 15:11 36.6 60 18 95 11/19/16 13:40 36.6 60 18 111/70 (84) 95 Room Air 11/19/16 13:29 59 18 108/62 (77) 96 Room Air 11/19/16 13:14 57 18 123/62 (82) 96 Room Air 11/19/16 12:59 69 18 95/60 (72) 96 Room Air 11/19/16 11:58 36.7 69 20 123/62 (82) 95 Room Air 11/19/16 11:45 Room Air 11/19/16 11:14 36.8 57 18 118/73 (88) 97 Room Air 11/19/16 10:22 36.5 60 16 121/73 96 Room Air 11/19/16 08:00 Room Air 11/19/16 07:53 36.5 60 16 121/73 (89) 96 Room Air 11/19/16 04:00 Room Air 11/19/16 03:13 36.7 65 17 123/71 (88) 96 Room Air 11/19/16 01:07 37.0 67 20 122/78 92 Room Air 11/18/16 22:49 69 15 124/67 93 Room Air 11/18/16 21:25 71 15 168/88 96 Room Air 11/18/16 19:34 76 19 168/88 96 Room Air 11/18/16 18:24 76 11/18/16 18:20 95 Room Air 11/18/16 18:20 95 Room Air 11/18/16 17:53 37.3 76 18 155/84 95 Room Air Physical Exam General Appearance: WD/WN, no apparent distress Neck: supple, no adenopathy, no JVD, trachea midline Respiratory/Chest: chest non-tender, lungs clear, normal breath sounds, no respiratory distress, no accessory muscle use Cardiovascular: regular rate, rhythm, no edema, no gallop, no JVD, no murmur Abdomen: normal bowel sounds, soft, no organomegaly, + tenderness (epigastric) Extremities: normal range of motion, non-tender, normal inspection, no pedal edema, no calf tenderness, pelvis stable 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, no motor/sensory deficits, alert, normal mood/affect, oriented x 3 Skin: normal color, warm/dry, no rash Lymphatic: no adenopathy Laboratory Results Last 24 Hours Test 11/18/16 18:28 11/18/16 22:48 11/19/16 00:49 11/19/16 05:13 White Blood Count 8.56 K/uL 6.36 K/uL Red Blood Count 4.47 M/uL 4.04 M/uL Hemoglobin 14.8 g/dL 12.7 g/dL Hematocrit 41.7 % 38.3 % Mean Corpuscular Volume 93.3 fL 94.8 fL Mean Corpuscular Hemoglobin 33.1 pg 31.4 pg Mean Corpuscular Hemoglobin Concent 35.5 g/dl 33.2 g/dl Platelet Count 291 K/uL 243 K/uL Mean Platelet Volume 10.6 fL 10.4 fL Neutrophils (%) (Auto) 66.7 % 56.9 % Lymphocytes (%) (Auto) 24.6 % 30.5 % Monocytes (%) (Auto) 7.1 % 10.8 % Eosinophils (%) (Auto) 0.6 % 0.9 % Basophils (%) (Auto) 0.5 % 0.6 % Neutrophils # (Auto) 5.71 K/uL 3.61 K/uL Lymphocytes # (Auto) 2.11 K/uL 1.94 K/uL Monocytes # (Auto) 0.61 K/uL 0.69 K/uL Eosinophils # (Auto) 0.05 K/uL 0.06 K/uL Basophils # (Auto) 0.04 K/uL 0.04 K/uL RDW Standard Deviation 44.2 fL 45.2 fL RDW Coefficient of Variation 13.0 % 13.0 % Immature Granulocyte % (Auto) 0.5 % 0.3 % Immature Granulocyte # (Auto) 0.04 K/uL 0.02 K/uL Erythrocyte Sedimentation Rate 15 mm/hr Sodium Level 137 mmol/L 140 mmol/L Potassium Level 3.9 mmol/L 4.1 mmol/L Chloride Level 102 mmol/L 106 mmol/L Carbon Dioxide Level 26 mmol/L 27 mmol/L Anion Gap 9.0 mmol/L 7.0 mmol/L Blood Urea Nitrogen 12 mg/dl 16 mg/dl Creatinine 1.10 mg/dl 1.10 mg/dl Est Creatinine Clear Calc Drug Dose 90.5 ml/min 90.4 ml/min Estimated GFR () 85.3 85.3 Estimated GFR (Non- 73.6 73.6 BUN/Creatinine Ratio 11.3 14.4 Random Glucose 138 mg/dl 127 mg/dl Estimated Average Glucose 148 mg/dl Hemoglobin A1c 6.8 % Calcium Level 11.9 mg/dl 9.8 mg/dl Phosphorus Level 3.7 mg/dl Total Bilirubin 0.4 mg/dl 0.4 mg/dl Direct Bilirubin < 0.1 mg/dl 0.1 mg/dl Aspartate Amino Transf (AST/SGOT) 16 U/L 16 U/L Alanine Aminotransferase (ALT/SGPT) 28 U/L 23 U/L Alkaline Phosphatase 68 U/L 57 U/L Total Creatine Kinase 115 U/L Creatine Kinase MB < 0.5 ng/ml Creatine Kinase MB Ratio Troponin I < 0.015 ng/ml Total Protein 7.7 gm/dl 6.4 gm/dl Albumin 4.1 gm/dl 3.4 gm/dl Amylase Level 36 U/L Lipase 119 U/L 25-Hydroxy Vitamin D Total 41.3 ng/ml Thyroid Stimulating Hormone (TSH) 0.958 uIu/ml Parathyroid Hormone (Intact) < 5.5 pg/mL Bedside Glucose 133 mg/dl Prothrombin Time 11.0 SECONDS Prothromb Time International Ratio 1.0 Activated Partial Thromboplast Time 25.2 SECONDS Partial Thromboplastin Ratio 1.0 Magnesium Level 2.2 mg/dl Test 11/19/16 06:48 Bedside Glucose 126 mg/dl Assessment and Plan 56 yo male with epigastric pain of several days duration, vomiting several days ago - Epigastric pain: 10mm gastric ulcer, no stigmata of bleeding, gastritis change protonix to PO, start carafate QID, advance diet check labs in the AM, likely d/c tomorrow transfer to medical - Acute anemia: mild, drop to 12 from 14, no evidence of active bleeding on EGD , repeat H/H tomorrow - Hypercalcemia: now normal with fluids and epidronate PTH low so not hyperparathyroidism, Vitamin D normal GOOD and PTrp still pending suspect work up will be completed outpatient CT chest - no adenopathy CAD/hypertension/LAD stents 2 in 2008--continue Plavix 75 mg by mouth daily, lisinopril 40 mg by mouth daily and metoprolol succinate 50 mg by mouth daily no signs of ischemia, transfer to medical Diabetes mellitus--hold metformin 1000 mg by mouth twice a day. diabetic diet and Novolog SS Hyperlipidemia- Pravachol 10 mg by mouth daily and fenofibrate 160 mg by mouth daily. Depression/myalgias--continue duloxetine 60 mg by mouth daily, CoQ10 200 mg by mouth daily and vitamin D3 5000 IU daily
[2016-11-19] MEDS: SUCRALFATE 1 GM/10 ML UDC PO SCH ×2 (18:43→22:00)
[2016-11-19] MEDS: PANTOprazole SOD 40 MG TAB PO SCH (20:22)
[2016-11-20] MEDS ORDERED: NURSING VERBAL MED ORDER ONE (01:30)
[2016-11-20] MEDS ORDERED: ZOLPIDEM TARTRATE 5 MG TAB ONE (02:00)
[2016-11-20] MEDS ORDERED: ZOLPIDEM TARTRATE 5 MG TAB PO SCH (02:15)
[2016-11-20] MEDS: SUCRALFATE 1 GM/10 ML UDC PO SCH (07:14)
[2016-11-20 07:15] VITALS: BP 132/75; PULSE 62; TEMP 36.7; O2SAT 98
[2016-11-20] MEDS: PANTOprazole SOD 40 MG TAB PO SCH (08:25)
[2016-11-20] MEDS: INSULIN ASPART 100 UNITS/ML 3 ML PEN SC SCH (08:30)
[2016-11-20] MEDS ORDERED: PRT40 PO (09:58)
[2016-11-20] MEDS ORDERED: CRFUDL PO (09:58)
--- NOTE | 2016-11-20 10:04 | Discharge Instructions ---
Discharge Instructions Date of Service Nov 20, 2016. Admission Reason for Admission: Epigastic Abdominal Pain, Hypercalcemia Discharge Discharge Diagnosis / Problem: Gastric ulcer, hypercalcemia Discharge Goals Goal(s): Decrease discomfort, Improve function, Improve disease control Activity Recommendations Activity Limitations: resume your previous activity Lifting Limitations: none Exercise/Sports Limitations: as tolerated May Resume Sexual Activity: when tolerated Shower/Bathe: no limitations Driving or Machine Use: no limitations . Instructions / Follow-Up Instructions / Follow-Up Medications: - PROTONIX: take twice a day for 4 weeks then take once a day indefinitely - CARAFATE: take with meals and at bedtime for next 7 days, coats stomach and allows ulcer to heal Peptic ulcer: 10mm, no signs of bleeding, also with some gastritis, treat with Protonix and Carafate H pylori (bacteria that causes ulcers) testing is still pending, if it returns positive I will call in a script for antibiotics and I will notify you you need to follow up with Dr. Gross in 6-8 weeks for repeat EGD to document healing avoid NSAIDs (Advil, Aleve, Meloxicam) as these can cause ulcers avoid alcohol for one month Hypercalcemia (high calcium): suspect this was due to ingestion of large amounts of calcium work up for secondary causes was initiated, all negative your calcium is now normal FOLLOW UP - Dr. Lam in 7-10 days, please call for an appointment - Dr. Gross for repeat EGD in 6-8 weeks, please call his office to schedule, [phone] Current Hospital Diet Patient's current hospital diet: Diabetes Type 2 Diet Discharge Diet Recommended Diet: AHA Diet (Heart Healthy), Diabetes Type 2 Diet Procedures Procedures Performed: EGD with Bx's Pending Studies Studies pending at discharge: yes List of pending studies: pathology results from biopsy, H pylori testing, GOOD level, PTH related peptide Laboratory Results Hemoglobin A1c Test 11/18/16 18:28 Range/Units Estimated Average Glucose 148 mg/dl Hemoglobin A1c 6.8 H 4.5-5.6 % Medical Emergencies . Who to Call and When: Medical Emergencies: If at any time you feel your situation is an emergency, please call 911 immediately. . Non-Emergent Contact Non-Emergency issues call your: Primary Care Provider Call Non-Emergent contact if: your pain is worsening, you have any medication questions . . "Provider Documentation" section prepared by Rm Thornton. . VTE Core Measure Inpt VTE Proph given/why not?: SCD's [place] Drug Monitoring Program Search Results: no issues identified
--- NOTE | 2016-11-20 10:11 | Discharge Summary ---
Discharge Summary Date of Service Nov 20, 2016. Discharge Summary Admission Date: Nov 18, 2016 at 22:09 Discharge Date: Nov 20, 2016 Discharge Disposition: Home Principal Diagnosis: Peptic ulcer disease Problems/Secondary Diagnoses: Hypercalcemia Immunizations: Have You Had Influenza Vaccine: No History of Tetanus Vaccine?: No History of Pneumococcal: No History of Hepatitis B Vaccine: No Procedures: EGD on 11/19 with biopsies Consultations: Gastroenterology Medication Reconciliation New Medications: Pantoprazole (Pantoprazole Sodium) 40 Mg Tab 40 MG PO BID, #60 TAB 1 Refill Sucralfate (Sucralfate) 1 Gm/10 Ml Susp 10 ML PO ACHS, #280 ML 0 Refills Continued Medications: Cholecalciferol (Vitamin D3) 5,000 Unit Cap 5000 UNITS PO DAILY Clopidogrel (Plavix) 75 Mg Tab 75 MG PO DAILY, TAB Coenzyme Q10 (Ubidecarenone) (Coq10) 200 Mg Cap 200 MG PO DAILY Duloxetine HCl (Cymbalta) 30 Mg Cap 60 MG PO DAILY Fenofibrate (Tricor) 160 Mg Tab 160 MG PO DAILY, TAB Lisinopril (Zestril) 40 Mg Tab 40 MG PO DAILY, TAB Metformin Hcl (Glucophage) 500 Mg Tab 1000 MG PO BID, TAB Metoprolol Succinate (Toprol Xl) 50 Mg Tabcr 50 MG PO DAILY, TAB Pravastatin (Pravachol ) 20 Mg Tab 10 MG PO DAILY, TAB Tramadol (Ultram) 50 Mg Tab 50 MG PO Q8H PRN for Pain, TAB Turmeric (Curcuma Longa) (Turmeric) 500 Mg Cap 500 MG PO BID Discontinued Medications: Meloxicam (Mobic) 15 Mg Tab 15 MG PO DAILY, TAB Omeprazole (Prilosec) 20 Mg Capcr 20 MG PO DAILY PRN for GI Upset, CAP Discharge Exam Patient feeling well this AM, no epigastric pain, eating well, no nausea or vomiting. Discussed the H pylori is pending, will call if positive. Discussed the hypercalcemia work up, patient admitted that he was ingesting a large amount of Tums prior to admission. Review of Systems: Constitutional: No fever, No chills, No sweats, No weight loss, No weakness , No fatigue, No problem reported Eyes: No worsening of vision, No eye pain, No redness, No discharge, No diplopia, No problem reported ENT: No hearing loss, No unusual epistaxis, No nasal symptoms, No sore throat, No tinnitus, No dental problems, No trouble swallowing, No problem reported Respiratory: No cough, No sputum, No wheezing, No shortness of breath, No dyspnea on exertion, No dyspnea at rest, No hemoptysis, No problem reported Cardiovascular: No chest pain, No orthopnea, No PND, No edema, No claudication, No palpitations, No problem reported Abdomen: No pain, No nausea, No vomiting, No diarrhea, No constipation, No GI bleeding, No problem reported Musculoskeletal: No joint pain, No muscle pain, No swelling, No calf pain, No problem reported Genitourinary - Male: No hematuria, No dysuria, No urinary frequency, No urinary urgency, No urinary hesitancy, No urinary retention, No urinary incontinence, No penile discharge, No lesions, No impotence, No problem reported Neurologic: No memory loss, No paralysis, No weakness, No numbness/tingling , No vertigo, No balance problems, No problem reported Psychiatric: No depression symptoms, No anhedonism, No anxiety, No insomnia , No substance abuse, No problem reported Endocrine: No fatigue, No excessive thirst, No excessive urination, No problem reported Hematologic / Lymphatic: No abnormal bleeding/bruising, No clotting problems , No swollen lymph nodes, No night sweats, No problem reported Integumentary: No rash, No itch, No new/changing skin lesions, No color change, No bleeding, No problem reported Physical Exam: General Appearance: WD/WN, no apparent distress Eyes: normal inspection, EOMI, sclerae normal ENT: normal ENT inspection, hearing grossly normal, pharynx normal Neck: supple, no adenopathy, no JVD, trachea midline Respiratory/Chest: chest non-tender, lungs clear, normal breath sounds, no respiratory distress, no accessory muscle use Cardiovascular: regular rate, rhythm, no edema, no gallop, no JVD, no murmur , normal peripheral pulses Abdomen / GI: normal bowel sounds, non tender, soft, no organomegaly Extremities: normal inspection, no calf tenderness, normal capillary refill , no pedal edema, normal range of motion, pelvis stable 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, no motor/sensory deficits , alert, normal mood/affect, normal reflexes, oriented x 3 Skin: normal color, warm/dry, no rash Hospital Course 56 yo male with epigastric pain of several days duration, vomiting several days ago - Epigastric pain, peptic ulcer disease, single gastric ulcer: 10mm gastric ulcer, no stigmata of bleeding, gastritis change protonix to PO BID, start carafate QID, advance diet will d/c on Protonix 40mg BID x 4 weeks then once a day Carafate QID x 7 days will follow up on H pylori testing and call patient if positive and initiate triple therapy should have repeat EGD in 6-[address] Gross to document healing, provided with office number instructed to avoid NSAIDs and alcohol - Acute anemia: mild, drop to 12 from 14, no evidence of active bleeding on EGD , likely from fluids - Hypercalcemia: now normal with fluids and epidronate on admission in [facility], likely due to large amount of Tums ingested prior to admission , taking them for several days in large quantity for epigastric pain PTH low so not hyperparathyroidism, Vitamin D normal GOOD and PTrp still pending, PCP can follow up but doubt they will be the cause suspect work up will be completed outpatient CT chest - no adenopathy CAD/hypertension/LAD stents 2 in 2008--continue Plavix 75 mg by mouth daily, lisinopril 40 mg by mouth daily and metoprolol succinate 50 mg by mouth daily no signs of ischemia, transfer to medical Diabetes mellitus-- resume metformin 1000 mg by mouth twice a day. diabetic diet and Novolog SS Hyperlipidemia- Pravachol 10 mg by mouth daily and fenofibrate 160 mg by mouth daily. Depression/myalgias--continue duloxetine 60 mg by mouth daily, CoQ10 200 mg by mouth daily and vitamin D3 5000 IU daily Total Time Spent: Greater than 30 minutes This includes examination of the patient, discharge planning, medication reconciliation, and communication with other providers. Discharge Instructions Please refer to the electronic Patient Visit Report (Discharge Instructions) for additional information. Follow-Up Dr. Lam in one week Dr. Gross in 6-8 weeks Additional Copies To Eduardo Gross D.O.; Nitish Lam M.D.
[2016-11-20 10:48] VITALS: BP 132/75; PULSE 62; TEMP 36.7; O2SAT 98
== END 2016-11-20 12:17 | disposition home or self-care (01) | DRG 384 ==
LOC: C.EDB 17:40 → C.2T 22:09 → ENRESERV 22:25 → C.MS4W 11-19 15:32
PROVIDERS: ADMIT Hospitalist; ATTEND Internal Medicine
PROC: 0DB68ZX Excision of Stomach, Via Natural or Artificial Opening Endoscopic, Diagnostic (ICD-10-PCS; principal; 2016-11-19 11:55)
DX: K25.9 Gastric ulcer, unspecified as acute or chronic, without hemorrhage or perforation (principal); K29.70 Gastritis, unspecified, without bleeding; D64.9 Anemia, unspecified; E83.52 Hypercalcemia; T47.1X5A Adverse effect of other antacids and anti-gastric-secretion drugs, initial encounter; I10 Essential (primary) hypertension; I25.10 Atherosclerotic heart disease of native coronary artery without angina pectoris; E11.9 Type 2 diabetes mellitus without complications; E78.5 Hyperlipidemia, unspecified; M19.90 Unspecified osteoarthritis, unspecified site; M79.1 Myalgia; F32.9 Major depressive disorder, single episode, unspecified; F17.200 Nicotine dependence, unspecified, uncomplicated; I25.2 Old myocardial infarction; Z95.5 Presence of coronary angioplasty implant and graft; Z79.84 Long term (current) use of oral hypoglycemic drugs; Z79.1 Long term (current) use of non-steroidal anti-inflammatories (NSAID); Z79.02 Long term (current) use of antithrombotics/antiplatelets; Z79.891 Long term (current) use of opiate analgesic; Z79.899 Other long term (current) drug therapy

== ENCOUNTER → 2016-12-10 | Outpatient (CLI) | payer BC ==
[~2016-12-10] VITALS: Ht 177.8 cm; Wt 111.0 kg
[~2016-12-10] MED LIST changes: -ASPEC325 PO; -ATOR-26 PO; -CALC500T64 PO; +CHOLCAP5 PO; -CLB200 PO; +COEN1CAP7 PO; +CRFUDL PO; +FENO1TAB PO; +GLC/500 PO; -LISI-461 PO; +LISI40TA PO; -OXYSR10 PO; +PRAV20TA PO; +PRT40 PO; -RXC5 PO; -SNK PO; +TRAM-10 PO; +TURM1CAP4 PO
[2016-12-10 15:45] VITALS: BP 134/80; PULSE 74; Ht 177.8 cm; Wt 111.0 kg
== END | disposition home or self-care (01) ==
LOC: C.NEUR 14:45
PROVIDERS: ATTEND Internal Medicine Pulmonary Disease
DX: R53.83 Other fatigue (principal); R06.83 Snoring; R06.81 Apnea, not elsewhere classified; M25.512 Pain in left shoulder; M25.511 Pain in right shoulder; G89.29 Other chronic pain

== ENCOUNTER → 2016-12-16 | Outpatient (CLI) | payer BC ==
--- NOTE | 2016-12-19 16:13 | POLYSOMNOGRAPH REPORT ---
CLINICAL DATA: 56-year-old male with BMI of 35.[address] Lam and myself for a history of fatigue, snoring, witnessed apneic episodes, and fragmented sleep architecture with significant chronic shoulder pain at night. On the evening of 12/16/2016, a home sleep apnea test was performed using a [employer] type 3 monitor. RECORDING RESULTS: Total recording time was 10 hours. The patient's monitoring time and estimated sleep time was 7.1 hours. RESPIRATORY DATA: Mild sleep apnea was documented. The LANCE was 14.3. There were 32 obstructive apneic episodes and 70 hypopneic episodes. The longest respiratory event was 43 seconds. OXIMETRY DATA: Significant nocturnal hypoxemia was seen. Oxygen prabha was 73%. Mean saturation was 90%. Time below 89% was 116 minutes. HEART RATE DATA: Heart rates ranged from 41-72 beats per minute. SNORING DATA: Snoring was recorded throughout the night. GERMAN TUTOR'S COMMENTS: The patient had hypopneas and apneas seen throughout the night. His oxygen saturations often ran in the mid to high 80s. IMPRESSION: Mild sleep apnea/hypopnea with significant nocturnal hypoxemia. RECOMMENDATIONS: The patient may benefit from a repeat sleep study with CPAP, use of auto CPAP, or use of an oral appliance. Clinical correlation is needed. LAURY
== END | disposition home or self-care (01) ==
LOC: C.NEUR 15:25
PROVIDERS: ATTEND Internal Medicine Pulmonary Disease
DX: G47.30 Sleep apnea, unspecified (principal); M25.512 Pain in left shoulder; M25.511 Pain in right shoulder; R06.83 Snoring; R53.83 Other fatigue; G89.29 Other chronic pain

== ENCOUNTER → 2017-01-03 | Outpatient (CLI) | payer BC ==
[~2017-01-03] VITALS: Ht 177.8 cm; Wt 111.7 kg
[2017-01-03 13:45] VITALS: BP 124/73; PULSE 72; Ht 177.8 cm; Wt 111.7 kg
== END | disposition home or self-care (01) ==
LOC: C.NEUR 13:15
PROVIDERS: ATTEND Physician Assistant
DX: G47.30 Sleep apnea, unspecified (principal); R10.11 Right upper quadrant pain; R10.13 Epigastric pain; D64.9 Anemia, unspecified; I25.10 Atherosclerotic heart disease of native coronary artery without angina pectoris; Z79.899 Other long term (current) drug therapy; E55.9 Vitamin D deficiency, unspecified; I49.3 Ventricular premature depolarization; I25.2 Old myocardial infarction

== ENCOUNTER → 2017-05-14 | Outpatient (CLI) | payer BC ==
[~2017-05-14] MED LIST changes: +ASPI-232 PO; +PRLSR20 PO
[2017-05-14 17:24] LABS: SYNOVIAL FLUID APPEARANCE BLOODY; SYNOVIAL FLUID COLOR RED; SYNOVIAL FLUID MONONUC RELAT 55.6 %; SYNOVIAL FLUID POLYNUC RELAT 44.4 %
== END | disposition home or self-care (01) ==
LOC: C.LAB 14:33
PROVIDERS: ATTEND Physician Assistant Medical
DX: Z96.652 Presence of left artificial knee joint (principal)

== ENCOUNTER → 2017-05-16 | Outpatient (CLI) | payer BC ==
[~2017-05-16] MED LIST changes: +ACET-24 PO; +ASPEC325 PO; +CLB200 PO; +ONDA8TAB6 PO; +OXYSR10 PO; +RXC5 PO; +SENN-61 PO
[2017-05-16 10:01] LABS: BASO % 0.7 %; BASO ABS # 0.05 K/uL (0-0.2); EOS % 1.4 %; HEMATOCRIT 40.9 % (42-52); IG# 0.04 K/uL (0.00-0.02); LYMPH % 21.7 %; MEAN CELL VOLUME 92.7 fL (80-100); MEAN CORPUSCULAR HEMOGLOBIN 31.7 pg (25-34); MEAN CORPUSCULAR HGB CONC 34.2 g/dl (32-36); MEAN PLATELET VOLUME 10.2 fL (7.4-10.4); MONO % 9.5 %; MONO ABS # 0.66 K/uL (0.11-0.59); NEUT % 66.1 %; NEUT ABS # 4.57 K/uL (1.4-6.5); PLATELET COUNT 298 K/uL (130-400); RED CELL DISTRIBUTION WIDTH CV 13.2 % (11.5-14.5); RED CELL DISTRIBUTION WIDTH SD 44.5 fL (36.4-46.3); WHITE BLOOD COUNT 6.92 K/uL (4.8-10.8)
[2017-05-16 10:08] LABS: INR 0.9 (0.9-1.1); PTT PATIENT 28.5 SECONDS (21.0-31.0)
[2017-05-16 10:23] LABS: HEMOGLOBIN A1C 6.5 % (4.5-5.6)
[2017-05-16 11:24] LABS: ALBUMIN 3.8 gm/dl (3.4-5.0); BLOOD UREA NITROGEN 21 mg/dl (7-18); CALCIUM 9.4 mg/dl (8.5-10.1); CARBON DIOXIDE 29 mmol/L (21-32); CREATININE 0.97 mg/dl (0.60-1.40); GLUCOSE 123 mg/dl (70-99); POTASSIUM 4.6 mmol/L (3.5-5.1); SODIUM 133 mmol/L (136-145)
== END | disposition home or self-care (01) ==
LOC: C.LAB 08:42
PROVIDERS: ATTEND Orthopaedic Surgery
DX: M54.12 Radiculopathy, cervical region (principal); T46.6X1A Poisoning by antihyperlipidemic and antiarteriosclerotic drugs, accidental (unintentional), initial encounter; M79.1 Myalgia

== ENCOUNTER → 2017-05-20 | Outpatient (CLI) | payer BC ==
[~2017-05-20] MED LIST changes: -ACET-24 PO; -ASPEC325 PO; -CLB200 PO; -ONDA8TAB6 PO; -OXYSR10 PO; -RXC5 PO; -SENN-61 PO
--- NOTE | 2017-05-20 14:59 | DIAGNOSTIC IMAGING REPORT ---
BONE SCAN 3 PHASE LIMITED CLINICAL HISTORY: LEFT KNEE PAIN pain TECHNIQUE: Multi phase evaluation following the administration of 27.2 mCi technetium 99m HDP. COMPARISON STUDY: None FINDINGS: Dynamic images demonstrate a slight degree of increased vascularity to the left knee region. Blood pool images show increased activity about the left knee. Static images demonstrate a mild increase in activity primarily of the medial femoral condyle of the left knee and to lesser extent tibial plateau. IMPRESSION: Findings suggesting early loosening of the patient's left knee prosthetic. The above report was generated using voice recognition software. It may contain grammatical, syntax or spelling errors. Electronically signed by: Lee Fox M.D. 05/20/2017 2:58 PM Dictated Date/Time: 05/20/2017 2:55 PM
== END | disposition home or self-care (01) ==
LOC: C.NUCL 11:05
PROVIDERS: ATTEND Physician Assistant Medical
DX: M25.562 Pain in left knee (principal); Z96.652 Presence of left artificial knee joint

== ENCOUNTER 2017-06-02 08:32 | Inpatient (IN) | payer BC, OTHER ==
[2017-05-16 08:55] VITALS: BMI 34.0
--- NOTE | 2017-05-16 09:40 | PAT Medication Instructions ---
Service Date May 16, 2017. Current Home Medication List Cholecalciferol (Vitamin D3), 5,000 UNITS PO QAM Clopidogrel (Plavix), 75 MG PO QAM Coenzyme Q10 (Ubidecarenone) (Coq10), 200 MG PO QAM Duloxetine HCl (Cymbalta), 60 MG PO QAM Fenofibrate (Tricor), 160 MG PO QAM Lisinopril (Zestril), 40 MG PO QAM Metformin Hcl (Glucophage), 1,000 MG PO BID Metoprolol Succinate (Toprol Xl), 50 MG PO QAM Omeprazole (Prilosec), 40 MG PO BID Tramadol (Ultram), 100 MG PO Q8H PRN for Pain Medication Instructions For Your Scheduled Surgery - Hold the following medications 2 weeks prior to surgery: Coenzyme Q10 (Ubidecarenone) (Coq10), 200 MG PO QAM - Hold the following medications per your patient safety sitter's instructions (must be held at least 7 days for spinal anesthesia): Clopidogrel (Plavix), 75 MG PO QAM - Hold the following medications 24 hours prior to surgery: Fenofibrate (Tricor), 160 MG PO QAM (do not take the morning of surgery or the day before) - Hold the following medications 48 hours prior to surgery: Metformin Hcl (Glucophage), 1,000 MG PO BID - Hold the following medications the morning of surgery: Lisinopril (Zestril), 40 MG PO QAM Cholecalciferol (Vitamin D3), 5,000 UNITS PO QAM - Take the following medications the morning of surgery with a sip of water: Omeprazole (Prilosec), 40 MG PO BID Duloxetine HCl (Cymbalta), 60 MG PO QAM Tramadol (Ultram), 100 MG PO Q8H PRN for Pain (if needed) Metoprolol Succinate (Toprol Xl), 50 MG PO QAM - Take the following medications as scheduled the night before surgery: Omeprazole (Prilosec), 40 MG PO BID Tramadol (Ultram), 100 MG PO Q8H PRN for Pain (if needed) If you have any questions please call us at [phone] or [phone] or [phone]
--- NOTE | 2017-05-29 14:31 | HISTORY & PHYSICAL EXAMINATION ---
DATE OF ADMISSION: 06/02/2017 CHIEF COMPLAINT: Painful left total knee arthroplasty. HISTORY OF PRESENT ILLNESS: Mr. Becker is a 57-year-old male who had his knee replaced in 2014. The patient has had chronic pain since his surgery; however, over the last few weeks, his pain has gotten significantly worse. He has questionable history of a fall. He is rating his pain at 8/10. Recent x-rays in the office are showing loosening of his patella component. He has been wearing a brace with minimal relief. He is now scheduled for patellar revision with potential exploration and synovectomy and possible revision of the complete joint. PAST MEDICAL HISTORY: Hypertension, hypercholesterolemia, and borderline diabetes. He denies heart disease or DVT. PAST SURGICAL HISTORY: Arthroscopy of left knee, lumbar surgery x2, cardiac stent placement, prostate surgery in 2000, cervical in 2012 and bilateral knee replacements in 2014. SOCIAL HISTORY: The patient drinks 3-4 drinks per day. He smokes half pack a day x20 years. He lives in a single story home. He is . 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 FAMILY HISTORY: Negative for DVT. MEDICATIONS: Metformin 500 mg b.i.d., fenofibrate 160 mg daily, duloxetine 60 mg daily, lisinopril 40 mg daily, metoprolol 50 mg daily, Plavix 75 mg daily, omeprazole 40 mg 2 tablets twice daily, and CoQ10 of 100 mg 2 tablets daily. ALLERGIES: AMOXICILLIN CAUSES RASH. REVIEW OF SYSTEMS: See HPI. Ten other systems reviewed, all negative. PHYSICAL EXAMINATION: VITAL SIGNS: Height 5 feet 10 inches, weight 238 pounds, BMI 35. GENERAL: This is a well-developed and well-nourished male, who is alert and oriented x3. Mood and affect are appropriate. HEENT: Normocephalic and atraumatic. Mucous membranes are moist and intact. NECK: Supple without lymphadenopathy. HEART: Regular rate and rhythm without murmurs, rubs or gallops. LUNGS: Clear to auscultation without wheezes or rhonchi. ABDOMEN: Soft and nontender. Bowel sounds are equal and active. EXTREMITIES: No ecchymosis, redness or warmth. He has a midline incision. He has moderate effusion. His incision is slightly lateral. Range of motion is from 0-110 and reproduces the pain. He has crepitus with range of motion. He is neurovascularly intact. X-RAY EXAMINATION: AP and lateral views show a posterior stabilized knee in adequate position, femoral and tibial components. Patellar component is loose from the bone and is displaced. Patella is thin and potentially avascular. LABORATORY RESULTS: Sed rate is 9. CRP is 3.4. Cultures were no growth and bone scan has questionable lucency. IMPRESSION: Patellar loosening, left total knee replacement. PLAN: The patient will be admitted for exploration and revision of the left knee patellar component and possible poly exchange. He will resume his Plavix postoperatively with aspirin [address] Lam. Medical Language Specialist is Dr. Dhaliwal. He is going to have home physical therapy versus outpatient physical therapy pending his progress.
[~2017-06-02] VITALS: Ht 177.8 cm; Wt 108.5 kg
[2017-06-02] VITALS (8 sets, daily range): BP systolic 104–136; BP diastolic 64–73; PULSE 67–80; TEMP 36.7–36.8; O2SAT 94–97; Ht 177.8 cm; Wt 108.5 kg
[2017-06-02] MEDS: TRANEXAMIC ACID INJ 1,000 MG in SYRINGE 0 ML IV SCH ×2 (06:30→10:25)
[~2017-06-02 08:32] MED LIST changes: +ACETAMINOPHEN 500 MG TAB PO SCH; +BUPIVACAINE 0.5 % 5 MG/1 ML PF 10ML VIAL ONE; +CEFAZOLIN 2000MG IV PUSH 10 ML IV SCH; +CLINDAMYCIN 600 MG/54 ML D5W 54 ML IV SCH; -CRFUDL PO; +CeleBREX 200 MG CAP PO SCH; +DEXAMETHASONE 4 MG TAB PO SCH; +FAMOTIDINE 20 MG TAB PO SCH; +GABAPENTIN 300 MG CAP PO SCH; +LACTATED RINGER'S 1000ML 1,000 ML IV SCH; +LACTATED RINGER'S 1000ML 500 ML IV SCH; +METOCLOPRAMIDE HCL 10 MG TAB PO SCH; -PRAV20TA PO; -PRT40 PO; +ROPIVACAINE 5MG/ML 30 ML 150 MG, BUPIVACAINE 0.5% MPF INJ 30 ML, EpINEphrine HCL INJ 0.... INFIL SCH; -TURM1CAP4 PO
--- NOTE | 2017-06-02 09:05 | History & Physical Bridge Note ---
H&P Re-Evaluation Bridge Note: I have examined the patient, reviewed the History & Physical and in the interval since the performance of the History & Physical I have noted the following changes of clinical significance: No changes noted
[2017-06-02] MEDS ORDERED: MIDAZOLAM HCL 1 MG/ML 2ML VIAL ONE (09:10)
[2017-06-02] MEDS ORDERED: FENTANYL CITRATE INJ 50 MCG/1 ML 2 ML VIAL ONE (09:10)
[2017-06-02] MEDS ORDERED: ORTHO JOINT ANESTHETIC ONE (09:25)
[2017-06-02] MEDS ORDERED: POVIDONE-IODINE OP SOLN 30 ML BTL ONE (09:26)
[2017-06-02] MEDS ORDERED: BACITRACIN 50000 UNIT VIAL ONE (09:26)
[2017-06-02] MEDS ORDERED: ATROPINE SULFATE 0.1 MG/ML 5ML SYR IV PRN (10:00)
[2017-06-02] MEDS ORDERED: EpHEDrine SULFATE INJ 50 MG/ML AMP IV PRN (10:00)
[2017-06-02] MEDS ORDERED: ONDANSETRON INJ 2 MG/ML 2 ML VIAL IV PRN ×2 (10:00→12:30)
[2017-06-02] MEDS ORDERED: FENTANYL CITRATE INJ 50 MCG/1 ML 2 ML VIAL IV PRN (10:00)
[2017-06-02] MEDS ORDERED: LACTATED RINGER'S 1000ML 1,000 ML IV SCH (10:00)
[2017-06-02] MEDS ORDERED: EpHEDrine SULFATE 50MG/5ML SYR ONE (11:31)
[2017-06-02] MEDS ORDERED: PROPOFOL IV EMULSION 10 MG/ML 20 ML VIAL IV ONE (11:31)
--- NOTE | 2017-06-02 12:22 | [facility] Post Operative Brief Note ---
Immediate Operative Summary Operative Date Jun 02, 2017. Pre-Operative Diagnosis Failure internal prosthesis, Aseptic loosening left knee Post-Operative Diagnosis Same as preoperative diagnosis Procedure(s) Performed Left Knee Patellar Revision Total Knee Arthroplasty, Poly Exchange Surgeon Dr. Blair Scholastic Aptitude Test Grader Surgeon(s) Julia Villafuerte PA-C Estimated Blood Loss 25cc Findings see dictated op note Specimens Routine culture & Sensitivity, anerobic culture and stat gram stain set to lab at 11:30 of three separate swabs of Left knee synovial fluid. A. Explanted hardware left knee Drains hmv x2 Complication(s) None Disposition Recovery Room / PACU
[2017-06-02] MEDS ORDERED: PHARMACY GLYCEMIC MGMT CONSULT PRN (12:23)
[2017-06-02] MEDS ORDERED: MoRPHine SULFATE 2 MG/ML CARP IV PRN (12:30)
--- NOTE | 2017-06-02 12:55 | DIAGNOSTIC IMAGING REPORT ---
LEFT KNEE 2 VIEWS HISTORY: AP/LATERAL IN PACU LEFT KNEE COMPARISON: None. FINDINGS: There is no fracture or dislocation. Soft tissues are unremarkable. No radiopaque foreign bodies. IMPRESSION: No fractures. Electronically signed by: Que Cabral M.D. 06/02/2017 12:54 PM Dictated Date/Time: 06/02/2017 12:53 PM
--- NOTE | 2017-06-02 13:43 | Anesthesiology Progress Note ---
Anesthesia Post Op Note Date & Time Jun 02, 2017 at 13:43 Vital Signs Pain Intensity: 0 Vital Signs Past 12 Hours Date Time Temp Pulse Resp B/P (MAP) Pulse Ox O2 Delivery O2 Flow Rate FiO2 06/02/17 13:23 36.9 06/02/17 13:21 66 18 120/62 95 06/02/17 13:21 67 18 06/02/17 13:16 64 15 111/57 99 06/02/17 13:16 65 15 06/02/17 13:11 64 16 06/02/17 13:11 63 16 106/61 98 06/02/17 13:06 63 16 111/55 96 06/02/17 13:06 64 16 06/02/17 13:01 64 13 06/02/17 13:01 63 13 101/57 97 06/02/17 12:56 64 20 105/58 96 06/02/17 12:56 64 20 06/02/17 12:51 66 19 98/59 96 06/02/17 12:51 65 19 06/02/17 12:46 63 22 111/63 96 06/02/17 12:46 64 22 06/02/17 12:41 64 22 101/59 99 06/02/17 12:41 64 22 06/02/17 12:39 99/56 06/02/17 12:36 36.7 64 16 101/59 98 Nasal Cannula 3 06/02/17 09:11 36.7 67 18 134/64 97 Room Air Notes Mental Status: alert / awake / arousable, participated in evaluation Pt Amnestic to Procedure: Yes Nausea / Vomiting: adequately controlled Pain: adequately controlled Airway Patency, RR, SpO2: stable & adequate BP & HR: stable & adequate Hydration State: stable & adequate Neuraxial Anesthesia: was administered, sensory block is resolving Anesthetic Complications: no major complications apparent
--- NOTE | 2017-06-02 13:56 | Pharmacy Progress Note ---
Glycemic Control Intl Consult Date of Service Jun 02, 2017. Scope Glycemic Pharmacist consulted by Dr Blair on 06/02/17 for glycemic control and to write orders per [facility] inpatient glycemic control protocol Objective Weight (Kilograms): 108.50 Accuchecks BSG (last 24hrs): Test 06/02/17 09:06 06/02/17 12:42 Bedside Glucose 146 mg/dl (70-99) 143 mg/dl (70-99) HbA1c 6.5% on 05/16/17 Recent Pertinent Medications Outpatient Anti-diabetic Regimen: * Metformin 1,000mg PO BIDM Risk Factors for Insulin Resistance: * Steroids * Recent Surgery * Diet Assessment & Plan ASSESSMENT: * 57yo T2DM male with excellent outpatient control on Metformin per recent A1c. * Pt is maintained on oral antidiabetic agents as an outpatient * Oral agents are not recommended for inpatient use d/t drug interactions, changing PO intake, and difficulty titrating for acute hyper/hypoglycemia. ADA recommends re-initiating outpatient oral agents 1-2 days prior to discharge if/ when appropriate if they were held on admission. * Will hold oral agents for admission and utilize SQ basal bolus insulin regimen which is the recommended regimen for inpatient glycemic control. * Will initiate weight based insulin dosing for insulin antonia patient and titrate based on BSG trends. * Will start basal insulin if BSG >180 mg/dl PLAN FOR INPATIENT GLYCEMIC CONTROL: * Holding outpatient oral diabetes medications * Resume POD # 1 AM after renal function assessed and PO intake adequate * Basal insulin with Lantus 20 units if BSG >180 mg/dl * Bolus insulin * NovoLog per scale ACHS or Q6hrs while NPO * Goal Range: Low 110 mg/dL - High 140 mg/dL * Correction Factor: 20 mg/dL/unit * Nutritional / Prandial insulin per carb ratio of 1 unit per 7 grams CHO consumed * Please note that the plan above was derived based on current level of insulin resistance and hospital stress. These recommendations are appropriate for inpatient admission only. Plan of care upon discharge will need to be reassessed to avoid potential outpatient hypo/hyperglycemia. Thank you.
[2017-06-02] MEDS ORDERED: DEXTROSE 50% 50 ML SYR IV PRN (14:15)
[2017-06-02] MEDS ORDERED: GLUCOSE 10 TABS/TUBE PO PRN (14:15)
[2017-06-02] MEDS ORDERED: GLUCOSE 40% GEL 15 GM TUBE PO PRN (14:15)
[2017-06-02] MEDS ORDERED: GLUCAGON FOR INJ 1 MG VIAL SQ PRN (14:15)
--- NOTE | 2017-06-02 14:55 | [facility] Operative Report ---
Operative Report Operative Date Jun 02, 2017. Pre-Operative Diagnosis Failure internal prosthesis, Aseptic loosening left knee Post-Operative Diagnosis Same as preoperative diagnosis Procedure(s) Performed Left Knee Patellar Revision Total Knee Arthroplasty, Poly Exchange Surgeon Dr. Blair Fingerprinter Surgeon(s) Julia Villafuerte PA-C Estimated Blood Loss 25cc Findings see dictated op note Specimens Routine culture & Sensitivity, anerobic culture and stat gram stain set to lab at 11:30 of three separate swabs of Left knee synovial fluid. A. Explanted hardware left knee Drains hmv x2 Complication(s) None Disposition Recovery Room / PACU Indications A 57-year-old male presented with a significant history of left knee pain status post left total knee arthroplasty and found to have a loose patellar component as seen on x-ray. He reported a fall prior to his office visit. The patient was adequately worked up for infection which was ruled out based off inflammatory labs and intra-articular synovial fluid aspiration. I have indicated the patient for a revision left total knee arthroplasty patellar component, synovectomy and polyethylene exchange, the risks and benefits and complications of the procedure include but are not limited to infection bleeding damage to bone nerves vessels surrounding soft tissue, blood clots loss of function leg length discrepancy dislocation failure of the components need for additional surgery and . The patient wished to proceed with surgery at this time and informed consent was obtained. Appropriate clearances were obtained. Description of Procedure Following induction of spinal anesthesia, a tourniquet was applied to the proximal aspect of the thigh and the patient's left leg was prepped and draped in the usual sterile manner. A timeout was performed and site maurice verified. Limb was exsanguinated with an esmarch bandage and tourniquet was inflated to 300 mmHg. A longitudinal midline incision was made over the anterior knee in line with the previous incision. Subcutaneous tissue was sharply dissected down to fascia. Electrocautery was used for hemostasis. Next a parapatellar arthrotomy was performed and loose patellar button was encountered. Next synovectomy was performed to remove excess scar tissue to aid in visualization of the patella button and knee joint, including medial and lateral gutters. The patella was everted and the knee was flexed. A rod retractor was used to expose the synovium above on the anterior aspect of the femur and removed down to bone. Next, the anterior fat pad was removed to aid in visualization. The medial face of the tibia was cleared of soft tissue first with a bovie and a cisse elevator. This tissue was retracted posteriorly using a blunt hohmann. The tibial articulating surface was removed utilizing osteotome and mallet. A trial size 5-6x15 tibia articular tray was placed and varus-valgus balance assessed in 0 degrees of extension and 30, 60 and 90 degrees of flexion. A final tibial articular surface size 15 was chosen. Assess was once again gained to the patella and caliper utilized to measure width which was 11mm thick at the thinnest point. Utilizing oscillating saw a free hand bone cut was performed on the patellar surface, caliper was once again used to check width which was 11mm thick. A size 38 patella button was selected and the patella pegs drilled. Trial patella button was placed and tracking was assessed. The knee was found to be well balanced, well aligned with excellent patella tracking. The trials were removed and final components were obtained and assembled. The knee was irrigated copiously with sterile saline solution mixed with bacitracin. Access to the proximal tibia was once again obtained utilizing two bent camron restractors. The final tibial articular surface was placed and final size 38 patella button [address] into place. The knee was injected with the remaining Orthomix solution and irrigated once more with sterile saline solution mixed with bacitracin. Two size 10 hmv drains were placed intra- articular via stab incisions. The capsulotomy was closed with #1 Vicryl followed by subcutaneous closure with 2-0 Vicryl suture. Skin closure was performed using sam followed by xeroform, 4 x 4s and daniela wrap. The patient tolerated the procedure well and was taken to the PACU in stable condition. Due to the complex nature of the procedure, the entire surgery was performed with the operational assistance of Alisha Villafuerte PA-C. The medical assistant float, under direct supervision, was involved in the actual performance of all aspects of the surgical procedure including hemostasis, tissue retraction and incision, instrument management, patient positioning, and wound closure. I attest to the content of the Intraoperative Record and any orders documented therein. Any exceptions are noted below. I attest to the content of the Intraoperative Record and any orders documented therein. Any exceptions are noted below.
[2017-06-02] MEDS: SODIUM CHLORIDE 0.9% 1000ML 1,000 ML IV SCH (15:32)
[2017-06-02] MEDS ORDERED: PHARMACY GLYCEMIC MGMT CONSULT STA (15:34)
--- NOTE | 2017-06-02 16:33 | Orthopedic Progress Note ---
Orthopedic Progress Note Date of Service Jun 02, 2017. Subjective Additional Notes: Postoperative progress note Patient seen at bedside, comfortable, no acute issues, pain well controlled, still under the effects of spinal anesthesia. Objective No apparent distress Still under the effects of regional block, limited physical exam Vascular intact +2 D/P pulse, compartments soft nontender, dressing clean dry and intact, Hemovac drain and intact. Date Time Temp Pulse Resp B/P (MAP) Pulse Ox O2 Delivery O2 Flow Rate FiO2 06/02/17 15:50 67 16 136/71 (92) 06/02/17 14:54 76 16 121/73 (89) 06/02/17 14:20 67 20 136/72 (93) 94 Nasal Cannula 2.0 06/02/17 13:50 Nasal Cannula 2.0 06/02/17 13:50 96 Nasal Cannula 2.0 06/02/17 13:50 36.8 67 16 108/67 (81) 96 Nasal Cannula 2.0 06/02/17 13:35 36.9 122/74 06/02/17 13:23 36.9 06/02/17 13:21 66 18 120/62 95 06/02/17 13:21 67 18 06/02/17 13:16 64 15 111/57 99 06/02/17 13:16 65 15 06/02/17 13:11 64 16 06/02/17 13:11 63 16 106/61 98 06/02/17 13:06 63 16 111/55 96 06/02/17 13:06 64 16 06/02/17 13:01 64 13 06/02/17 13:01 63 13 101/57 97 06/02/17 12:56 64 20 105/58 96 06/02/17 12:56 64 20 06/02/17 12:51 66 19 98/59 96 06/02/17 12:51 65 19 06/02/17 12:46 63 22 111/63 96 06/02/17 12:46 64 22 06/02/17 12:41 64 22 101/59 99 06/02/17 12:41 64 22 06/02/17 12:39 99/56 06/02/17 12:36 36.7 64 16 101/59 98 Nasal Cannula 3 06/02/17 09:11 36.7 67 18 134/64 97 Room Air Assessment & Plan Assessment: s/p Revision L TKA patellar component, poly exchange Plan: -clinda x 24 -DVT PPX - plavix/asa bid -DC drain POD#1 -WBAT LLE -PT/OT -Neuro checks -Pain controlled -am labs -PO XR - Well aligned, well fixed prothesis, no fracture/dislocation
[2017-06-02] MEDS ORDERED: LANTUS PER UNIT CHARGE SQ SCH (17:15)
[2017-06-02] MEDS: CLINDAMYCIN IV 600 MG in DEXTROSE 5% 50ML 50 ML IV SCH (18:11)
[2017-06-02] MEDS: INSULIN ASPART 100 UNITS/ML 3 ML PEN SC SCH ×2 (18:17→21:42)
[2017-06-02] MEDS ORDERED: SENNA 8.6 MG TAB PO SCH (21:00)
[2017-06-02] MEDS ORDERED: ACETAMINOPHEN 500 MG TAB PO SCH (21:00)
[2017-06-02] MEDS: OXYCODONE HCL 10 MG TABCR (OXYCONTIN) PO SCH (21:37)
[2017-06-02] MEDS: ASPIRIN 325 MG ECTAB PO SCH (21:37)
[2017-06-02] MEDS: ACETAMINOPHEN 500 MG TAB PO SCH (21:37)
[2017-06-02] MEDS: DOCUSATE SODIUM 100 MG CAP PO SCH (21:37)
[2017-06-02] MEDS: OXYCODONE HCL IR 5 MG TAB (IMMEDIATE RELEASE) PO PRN (23:21)
--- NOTE | 2017-06-02 23:56 | Progress Note ---
Subjective Date of Service: Jun 02, 2017. Subjective Pt evaluation today including: conversation w/ patient Patient reports feeling well. He reports his pain medicine is working. Patient would like to be discharged tomorrow, Problem List Medical Problems: (1) Epigastric abdominal pain Status: Acute (2) Ulcer Status: Acute Review of Systems Constitutional: No fever, No chills Respiratory: No cough, No sputum Cardiac: No chest pain, No orthopnea Abdomen: No pain Musculoskeletal: + joint pain Male : No dysuria, No urinary frequency Neurologic: No memory loss Heme: No abnormal bleeding/bruising Endo: No fatigue Skin: No see HPI, No rash, No itch All Other Systems: Reviewed and Negative Medications Current Inpatient Medications Medications (Trade) Dose Ordered Sig/Sanchez Route Start Time Stop Time Status Last Admin Dose Admin Lactated Ringer's 1,000 ml @ 15 mls/hr Q24H IV 06/02/17 06:00 06/03/17 05:59 Lactated Ringer's 1,000 ml @ 60 mls/hr [id number] IV 06/02/17 10:00 07/02/17 09:59 Clopidogrel Bisulfate (plAVix TAB) 75 mg QAM PO 06/03/17 09:00 07/03/17 08:59 Duloxetine HCl (Cymbalta Cap) 60 mg QAM PO 06/03/17 09:00 07/03/17 08:59 Lisinopril (Zestril Tab) 40 mg QAM PO 06/03/17 09:00 07/03/17 08:59 Metformin HCl (Glucophage Tab) 1,000 mg BIDM PO 06/03/17 08:30 07/03/17 08:29 Metoprolol Succinate (Toprol Xl Tab) 50 mg QAM PO 06/03/17 09:00 07/03/17 08:59 Sodium Chloride 1,000 ml @ 100 mls/hr Q10H IV 06/02/17 14:30 06/03/17 14:29 06/02/17 15:32 100 MLS/HR Clindamycin Phosphate 600 mg/ Dextrose 54 ml @ 100 mls/hr Q8H IV 06/02/17 18:00 06/03/17 02:33 06/02/17 18:11 100 MLS/HR Oxycodone HCl (Roxicodone Immediate Rel Tab) 1 TABLET FOR PAIN RATING... Q4H PRN PO 06/02/17 12:30 06/16/17 12:29 06/02/17 23:21 10 MG Oxycodone HCl (Oxycontin Tab) 10 mg Q12 PO 06/02/17 21:00 06/16/17 20:59 06/02/17 21:37 10 MG Morphine Sulfate (MoRPHine SULFATE INJ) 4 mg Q4 PRN IV 06/02/17 12:30 06/16/17 12:29 Senna (Senokot Tab) 17.2 mg HS PO 06/02/17 21:00 07/02/17 20:59 06/02/17 21:37 17.2 MG Docusate Sodium (coLACE CAP) 100 mg BID PO 06/02/17 21:00 07/02/17 20:59 06/02/17 21:37 100 MG Diphenhydramine HCl (Benadryl Cap) 25 mg Q8H PRN PO 06/02/17 12:30 07/02/17 12:29 Multivitamins (Multivitamin Tab) 1 tab QAM PO 06/03/17 09:00 07/03/17 08:59 Ondansetron HCl (Zofran Inj) 4 mg Q6H PRN IV 06/02/17 12:30 07/02/17 12:29 Pantoprazole Sodium (Protonix Tab) 40 mg QAM PO 06/03/17 09:00 06/07/17 08:59 Aspirin (Ecotrin Tab) 325 mg BID PO 06/02/17 21:00 07/02/17 20:59 06/02/17 21:37 325 MG Miscellaneous Information (Consult Glycemic Management Pharmacy) 1 ea UD PRN N/A 06/02/17 12:23 07/02/17 12:22 Insulin Aspart (novoLOG ASPART) SLIDING SCALE ACHS SC 06/02/17 17:15 07/02/17 17:14 06/02/17 21:42 3 UNITS Glucose (Glucose 40% Gel) 15-30 GRAMS 15 GRAMS... UD PRN PO 06/02/17 14:15 07/02/17 14:14 Glucose (Glucose Chew Tab) 4-8 Tablets 4 Tabl... UD PRN PO 06/02/17 14:15 07/02/17 14:14 Dextrose (Dextrose 50% 50ML Syringe) 25-50ML OF 50% DW IV FOR... UD PRN IV 06/02/17 14:15 07/02/17 14:14 Glucagon (Glucagon Inj) 1 mg UD PRN SQ 06/02/17 14:15 07/02/17 14:14 Acetaminophen (Tylenol Tab) 1,000 mg Q8H PO 06/02/17 22:00 07/02/17 21:59 06/02/17 21:37 1,000 MG Objective Vital Signs Date Time Temp Pulse Resp B/P (MAP) Pulse Ox O2 Delivery O2 Flow Rate FiO2 06/02/17 23:00 36.7 74 18 104/65 (78) 97 Room Air 06/02/17 21:00 95 Room Air 06/02/17 19:10 36.7 80 18 129/70 (89) 97 Nasal Cannula 2.0 06/02/17 15:50 67 16 136/71 (92) 06/02/17 14:54 76 16 121/73 (89) 06/02/17 14:20 67 20 136/72 (93) 94 Nasal Cannula 2.0 06/02/17 13:50 Nasal Cannula 2.0 06/02/17 13:50 96 Nasal Cannula 2.0 06/02/17 13:50 36.8 67 16 108/67 (81) 96 Nasal Cannula 2.0 06/02/17 13:35 36.9 122/74 06/02/17 13:23 36.9 06/02/17 13:21 66 18 120/62 95 06/02/17 13:21 67 18 06/02/17 13:16 64 15 111/57 99 06/02/17 13:16 65 15 06/02/17 13:11 64 16 06/02/17 13:11 63 16 106/61 98 06/02/17 13:06 63 16 111/55 96 06/02/17 13:06 64 16 06/02/17 13:01 64 13 06/02/17 13:01 63 13 101/57 97 06/02/17 12:56 64 20 105/58 96 06/02/17 12:56 64 20 06/02/17 12:51 66 19 98/59 96 06/02/17 12:51 65 19 06/02/17 12:46 63 22 111/63 96 06/02/17 12:46 64 22 06/02/17 12:41 64 22 101/59 99 06/02/17 12:41 64 22 06/02/17 12:39 99/56 06/02/17 12:36 36.7 64 16 101/59 98 Nasal Cannula 3 06/02/17 09:11 36.7 67 18 134/64 97 Room Air Physical Exam General Appearance: WD/WN, no apparent distress Neck: supple, no adenopathy Respiratory/Chest: chest non-tender, lungs clear, normal breath sounds Cardiovascular: regular rate, rhythm, no edema Abdomen: normal bowel sounds, non tender, soft Extremities: no pedal edema (left knee: dressing dry, hemovac in place) Neurologic/Psychiatric: no motor/sensory deficits, alert, oriented x 3 Skin: normal color Lymphatic: no adenopathy Laboratory Results Last 24 Hours Test 06/02/17 09:06 06/02/17 09:34 06/02/17 12:42 06/02/17 17:04 Bedside Glucose 146 mg/dl 143 mg/dl 198 mg/dl Hepatitis C Antibody Screen NEG Test 06/02/17 20:48 Bedside Glucose 181 mg/dl Assessment and Plan DM2 will continue with current meds. will have patient on insulin sliding scale guy continue with his current dose of metformin. Depression: Continue Cymbalta 60 mg daily GERD, GI prophylaxis: Protonix while inpatient- resume Prilosec at discharge DVT prophylaxis: ASA 325 mg BID as per surgical team
[2017-06-03] MEDS: SODIUM CHLORIDE 0.9% 1000ML 1,000 ML IV SCH ×2 (01:27→09:58)
[2017-06-03] MEDS: CLINDAMYCIN IV 600 MG in DEXTROSE 5% 50ML 50 ML IV SCH (01:33)
[2017-06-03] MEDS ORDERED: NURSING DECISION MEDICATION ORDER SCH (02:30)
[2017-06-03 03:14] VITALS: BP 130/67; PULSE 71; TEMP 36.8; O2SAT 97
[2017-06-03] MEDS: OXYCODONE HCL IR 5 MG TAB (IMMEDIATE RELEASE) PO PRN ×3 (04:13→12:09)
[2017-06-03] MEDS: ACETAMINOPHEN 500 MG TAB PO SCH ×2 (05:39→13:18)
[2017-06-03 06:53] LABS: HEMATOCRIT 32.1 % (42-52); HEMOGLOBIN 10.9 g/dL (14.0-18.0); MEAN CELL VOLUME 93.9 fL (80-100); MEAN CORPUSCULAR HEMOGLOBIN 31.9 pg (25-34); MEAN PLATELET VOLUME 10.9 fL (7.4-10.4); PLATELET COUNT 233 K/uL (130-400); RED CELL DISTRIBUTION WIDTH CV 13.1 % (11.5-14.5); RED CELL DISTRIBUTION WIDTH SD 44.7 fL (36.4-46.3); WHITE BLOOD COUNT 10.92 K/uL (4.8-10.8)
[2017-06-03 07:34] LABS: CALCIUM 8.5 mg/dl (8.5-10.1); CREATININE 0.9 mg/dl (0.60-1.40); POTASSIUM 4.4 mmol/L (3.5-5.1)
[2017-06-03 07:50] VITALS: BP 127/72; PULSE 64; TEMP 36.6; O2SAT 97
--- NOTE | 2017-06-03 07:52 | Orthopedic Progress Note ---
Orthopedic Progress Note Date of Service Jun 03, 2017. Subjective Post OP Day: 1 Reports: feeling well, Denies: chest pain, SOB, nausea / vomiting, light headedness, calf pain Objective calves soft nontender, N/V intact, capillary refill less than 2 sec., dressing C /D/I, A&O x3, toes mobile, hemovac drainage (80/120 CC PER SHIFT) Date Time Temp Pulse Resp B/P (MAP) Pulse Ox O2 Delivery O2 Flow Rate FiO2 06/03/17 03:14 36.8 71 18 130/67 (88) 97 Room Air 06/02/17 23:15 Room Air 06/02/17 23:00 36.7 74 18 104/65 (78) 97 Room Air 06/02/17 21:00 95 Room Air 06/02/17 19:10 36.7 80 18 129/70 (89) 97 Nasal Cannula 2.0 06/02/17 15:50 67 16 136/71 (92) 06/02/17 14:54 76 16 121/73 (89) 06/02/17 14:20 67 20 136/72 (93) 94 Nasal Cannula 2.0 06/02/17 13:50 Nasal Cannula 2.0 06/02/17 13:50 96 Nasal Cannula 2.0 06/02/17 13:50 36.8 67 16 108/67 (81) 96 Nasal Cannula 2.0 06/02/17 13:35 36.9 122/74 06/02/17 13:23 36.9 06/02/17 13:21 66 18 120/62 95 06/02/17 13:21 67 18 06/02/17 13:16 64 15 111/57 99 06/02/17 13:16 65 15 06/02/17 13:11 64 16 06/02/17 13:11 63 16 106/61 98 06/02/17 13:06 63 16 111/55 96 06/02/17 13:06 64 16 06/02/17 13:01 64 13 06/02/17 13:01 63 13 101/57 97 06/02/17 12:56 64 20 105/58 96 06/02/17 12:56 64 20 06/02/17 12:51 66 19 98/59 96 06/02/17 12:51 65 19 06/02/17 12:46 63 22 111/63 96 06/02/17 12:46 64 22 06/02/17 12:41 64 22 101/59 99 06/02/17 12:41 64 22 06/02/17 12:39 99/56 06/02/17 12:36 36.7 64 16 101/59 98 Nasal Cannula 3 06/02/17 09:11 36.7 67 18 134/64 97 Room Air Laboratory Results 24 Hours: Test 06/03/17 06:05 Hematocrit 32.1 % Hemoglobin 10.9 g/dL Prothromb Time International Ratio 1.0 Prothrombin Time 10.6 SECONDS Assessment & Plan Assessment: s/p Revision L TKA patellar component, poly exchange Plan: -clinda x 24 -DVT PPX - plavix/asa bid -DC drain POD#1 -WBAT LLE -PT/OT -Neuro checks -Pain controlled -am labs -PO XR - Well aligned, well fixed prothesis, no fracture/dislocation PAIN MANAGEMENT- GAYATHRI, OXYCONTIN, TYLENOL DC PLANNING- LIKELY DC HOME TODAY IF PAIN CONTROLLED.
[2017-06-03] MEDS ORDERED: SENN-61 PO (07:55)
[2017-06-03] MEDS ORDERED: ACET-24 PO (07:55)
[2017-06-03] MEDS ORDERED: OXYSR10 PO (07:55)
[2017-06-03] MEDS ORDERED: RXC5 PO (07:55)
[2017-06-03] MEDS ORDERED: ASPEC325 PO (07:55)
[2017-06-03] MEDS ORDERED: ONDA8TAB6 PO (07:55)
[2017-06-03] MEDS ORDERED: CLB200 PO (07:55)
--- NOTE | 2017-06-03 07:57 | Discharge Instructions ---
Discharge Instructions Date of Service Jun 03, 2017. Admission Reason for Admission: Left Knee Mechanical Loosening Of Internal Prosthe Discharge Discharge Diagnosis / Problem: SP LEFT TKA POLY EXCHANGE/PATELLA REVISION Discharge Goals Goal(s): Decrease discomfort, Improve function, Increase independence Activity Recommendations Activity Limitations: per Instructions/Follow-up section . Instructions / Follow-Up Instructions / Follow-Up ACTIVITY RECOMMENDATIONS: SELF CARE INSTRUCTIONS AFTER TOTAL KNEE REPLACEMENT A. You may need to continue a physical therapy program after discharge from the hospital. There are several options available to you. Your doctor will assist you in selecting the best one for you. 1. An out-patient facility 2 to 3 times a week for therapy or home therapy. 2. Continue working on all exercises taught to you in the hospital. Your goals should be to increase bending of your knee to 90 degrees and beyond and to fully straighten your knee. B. You may progress at your own pace from walking with a walker or crutches to a cane; then to no assistive devices. C. Make walking a part of your daily routine. Be up as much as comfortable with rest periods throughout the day. Rest with leg elevation is very important. Use the ice wrap frequently for the first 3-4 weeks. D. There are no restrictions on activities. You may ride in a car, shop, participate in cert pharmacy tech and all social activities. E. Wear the long elastic stockings (LE hose) 20 hours a day for 2 weeks after surgery. They can be removed several times a day for laundering and for a bath. F. You may shower, no tub baths until cleared by your doctor. SPECIAL CARE INSTRUCTIONS: VERY IMPORTANT TO READ AND REVIEW A. There are a few signs you need to watch for after you are home. Call [facility] if you notice any of the followin. Increased severe knee pain. Some pain is expected especially when you exercise. 2. Increased swelling in your leg or knee; pain or swelling of the calf muscle in either lower leg. 3. Any fluid drainage from the incision. 4. Shortness of breath or chest pain. B. Please call [facility] at if you have any concerns or questions about your operation or recovery. The doctor or his nurse will return your call promptly. C. You must take antibiotics before dental work, bladder, bowel or other surgery. Your doctor will provide you with a permanent care to carry describing this precaution. IMPORTANT: * REMEMBER TO TAKE ASPIRIN 325 MG, TWICE DAILY FOR 4 WEEKS UNLESS OTHERWISE DIRECTED. THIS IS YOUR BLOOD THINNER. * HIGH RISK PATIENTS MAY BE PRESCRIBED A STRONGER BLOOD THINNER. THIS WILL BE PROVIDED AT DISCHARGE. * CALL IF INCREASED PAIN, REDNESS, DRAINAGE OR FEVER GREATER THAT 101. * WEAR LE HOSE 20 HOURS PER DAY FOR 2 WEEKS. Standard sam/no adhesive- Please keep incision clean and dry. You may shower. Sam should be removed in 10-14 days at the office. This appointment is likely already scheduled for you. Please call if any increased redness, drainage, or swelling. FOLLOW UP VISIT: If appointment is not already scheduled: Please call [facility] to make a follow-up appointment for 2 weeks after your surgery at . Current Hospital Diet Patient's current hospital diet: Diabetes Type 2 Diet Discharge Diet Recommended Diet: Regular Diet Procedures Procedures Performed: Left Knee Patellar Revision Total Knee Arthroplasty, Poly Exchange Pending Studies Studies pending at discharge: no Laboratory Results Hemoglobin A1c Test 05/16/17 09:48 Range/Units Estimated Average Glucose 140 mg/dl Hemoglobin A1c 6.5 H 4.5-5.6 % Medical Emergencies . Who to Call and When: Medical Emergencies: If at any time you feel your situation is an emergency, please call 911 immediately. . Non-Emergent Contact Non-Emergency issues call your: Surgeon . "Provider Documentation" section prepared by Mckenzie Villafuerte. . VTE Core Measure Inpt VTE Proph given/why not?: Other Anticoagulation, T.E.D. Stockings, SCD's [place] Drug Monitoring Program Search Results: no issues identified
--- NOTE | 2017-06-03 08:12 | Anesthesiology Progress Note ---
Anesthesia Post Op Note Date & Time Jun 03, 2017 at 08:11 Vital Signs Pain Intensity: 5.0 Vital Signs Past 12 Hours Date Time Temp Pulse Resp B/P (MAP) Pulse Ox O2 Delivery O2 Flow Rate FiO2 06/03/17 07:50 36.6 64 16 127/72 (90) 97 Room Air 06/03/17 03:14 36.8 71 18 130/67 (88) 97 Room Air 06/02/17 23:15 Room Air 06/02/17 23:00 36.7 74 18 104/65 (78) 97 Room Air 06/02/17 21:00 95 Room Air Notes Mental Status: alert / awake / arousable, participated in evaluation Pt Amnestic to Procedure: Yes Nausea / Vomiting: adequately controlled Pain: adequately controlled Airway Patency, RR, SpO2: stable & adequate BP & HR: stable & adequate Hydration State: stable & adequate Neuraxial Anesthesia: was administered, sensory block resolved Anesthetic Complications: no major complications apparent
[2017-06-03] MEDS ORDERED: METFORMIN HCL 500 MG TAB PO SCH ×2 (08:30)
[2017-06-03] MEDS: OXYCODONE HCL 10 MG TABCR (OXYCONTIN) PO SCH (08:59)
[2017-06-03] MEDS: DOCUSATE SODIUM 100 MG CAP PO SCH (08:59)
[2017-06-03] MEDS ORDERED: DULOXETINE (CYMBALTA) 30 MG CAP PO SCH (09:00)
[2017-06-03] MEDS ORDERED: METOPROLOL SUCC 50MG EXT REL TAB PO SCH (09:00)
[2017-06-03] MEDS: ASPIRIN 325 MG ECTAB PO SCH (09:00)
[2017-06-03] MEDS ORDERED: LISINOPRIL 40 MG TAB PO SCH (09:00)
[2017-06-03] MEDS ORDERED: PANTOprazole SOD 40 MG TAB PO SCH (09:00)
[2017-06-03] MEDS ORDERED: CLOPIDOGREL BISULFATE 75 MG TAB PO SCH (09:00)
[2017-06-03] MEDS ORDERED: MULTIVITAMIN TAB PO SCH (09:00)
[2017-06-03] MEDS: INSULIN ASPART 100 UNITS/ML 3 ML PEN SC SCH ×2 (09:01→12:00)
[2017-06-03 10:47] VITALS: BP 127/72; PULSE 64; TEMP 36.6; O2SAT 97
[2017-06-03 11:10] VITALS: BP 123/71; PULSE 66; TEMP 36.7; O2SAT 97
--- NOTE | 2017-06-03 11:10 | Hospitalist Progress Note ---
Hospitalist Progress Note Date of Service Jun 03, 2017. (Juani Gambino ., MOHANC) Subjective Pt evaluation today including: conversation w/ patient, physical exam, lab review, review of inpatient medication list Voiding: no voiding problems Patient resting in bed. Eating and drinking OK. +flatus postop, no BM. Pain is well controlled. Worked w/ PT w/out significant difficulty. Patient denies any fever, chills, sweats, lightheadedness, dizziness, vision changes, CP, palpitations, edema, SOB, wheezing, cough, abdominal pain, nausea, vomiting, diarrhea, urinary symptoms, melena, numbness/tingling, weakness, anxiety/depression, active bleeding, or new skin discoloration/changes. (Juani Gambino ., MOHANC) Medications Current Inpatient Medications Medications (Trade) Dose Ordered Sig/Sanchez Route Start Time Stop Time Status Last Admin Dose Admin Clopidogrel Bisulfate (plAVix TAB) 75 mg QAM PO 06/03/17 09:00 07/03/17 08:59 Duloxetine HCl (Cymbalta Cap) 60 mg QAM PO 06/03/17 09:00 07/03/17 08:59 06/03/17 09:00 60 MG Lisinopril (Zestril Tab) 40 mg QAM PO 06/03/17 09:00 07/03/17 08:59 06/03/17 09:00 40 MG Metoprolol Succinate (Toprol Xl Tab) 50 mg QAM PO 06/03/17 09:00 07/03/17 08:59 06/03/17 09:00 50 MG Sodium Chloride 1,000 ml @ 100 mls/hr Q10H IV 06/02/17 14:30 06/03/17 14:29 06/03/17 01:27 100 MLS/HR Oxycodone HCl (Roxicodone Immediate Rel Tab) 1 TABLET FOR PAIN RATING... Q4H PRN PO 06/02/17 12:30 06/16/17 12:29 06/03/17 08:04 10 MG Oxycodone HCl (Oxycontin Tab) 10 mg Q12 PO 06/02/17 21:00 06/16/17 20:59 06/03/17 08:59 10 MG Morphine Sulfate (MoRPHine SULFATE INJ) 4 mg Q4 PRN IV 06/02/17 12:30 06/16/17 12:29 06/03/17 10:15 4 MG Senna (Senokot Tab) 17.2 mg HS PO 06/02/17 21:00 07/02/17 20:59 06/02/17 21:37 17.2 MG Docusate Sodium (coLACE CAP) 100 mg BID PO 06/02/17 21:00 07/02/17 20:59 06/03/17 08:59 100 MG Diphenhydramine HCl (Benadryl Cap) 25 mg Q8H PRN PO 06/02/17 12:30 07/02/17 12:29 Multivitamins (Multivitamin Tab) 1 tab QAM PO 06/03/17 09:00 07/03/17 08:59 06/03/17 09:01 1 TAB Ondansetron HCl (Zofran Inj) 4 mg Q6H PRN IV 06/02/17 12:30 07/02/17 12:29 Pantoprazole Sodium (Protonix Tab) 40 mg QAM PO 06/03/17 09:00 06/07/17 08:59 06/03/17 08:59 40 MG Aspirin (Ecotrin Tab) 325 mg BID PO 06/02/17 21:00 07/02/17 20:59 06/03/17 09:00 325 MG Miscellaneous Information (Consult Glycemic Management Pharmacy) 1 ea UD PRN N/A 06/02/17 12:23 07/02/17 12:22 Insulin Aspart (novoLOG ASPART) SLIDING SCALE ACHS SC 06/02/17 17:15 07/02/17 17:14 06/02/17 21:42 3 UNITS Glucose (Glucose 40% Gel) 15-30 GRAMS 15 GRAMS... UD PRN PO 06/02/17 14:15 07/02/17 14:14 Glucose (Glucose Chew Tab) 4-8 Tablets 4 Tabl... UD PRN PO 06/02/17 14:15 07/02/17 14:14 Dextrose (Dextrose 50% 50ML Syringe) 25-50ML OF 50% DW IV FOR... UD PRN IV 06/02/17 14:15 07/02/17 14:14 Glucagon (Glucagon Inj) 1 mg UD PRN SQ 06/02/17 14:15 07/02/17 14:14 Acetaminophen (Tylenol Tab) 1,000 mg Q8H PO 06/02/17 22:00 07/02/17 21:59 06/03/17 05:39 1,000 MG Metformin HCl (Glucophage Tab) 1,000 mg BIDM PO 06/03/17 08:30 07/03/17 08:29 06/03/17 08:59 1,000 MG (Juani Gambino, PAEdith) Objective Vital Signs Date Time Temp Pulse Resp B/P (MAP) Pulse Ox O2 Delivery O2 Flow Rate FiO2 06/03/17 10:47 36.6 64 16 97 Room Air 06/03/17 07:50 36.6 64 16 127/72 (90) 97 Room Air 06/03/17 07:20 Room Air 06/03/17 03:14 36.8 71 18 130/67 (88) 97 Room Air 06/02/17 23:15 Room Air 06/02/17 23:00 36.7 74 18 104/65 (78) 97 Room Air 06/02/17 21:00 95 Room Air 06/02/17 19:10 36.7 80 18 129/70 (89) 97 Nasal Cannula 2.0 06/02/17 15:50 67 16 136/71 (92) 06/02/17 14:54 76 16 121/73 (89) 06/02/17 14:20 67 20 136/72 (93) 94 Nasal Cannula 2.0 06/02/17 13:50 Nasal Cannula 2.0 06/02/17 13:50 96 Nasal Cannula 2.0 06/02/17 13:50 36.8 67 16 108/67 (81) 96 Nasal Cannula 2.0 06/02/17 13:35 36.9 122/74 06/02/17 13:23 36.9 06/02/17 13:21 66 18 120/62 95 06/02/17 13:21 67 18 06/02/17 13:16 64 15 111/57 99 06/02/17 13:16 65 15 06/02/17 13:11 64 16 06/02/17 13:11 63 16 106/61 98 06/02/17 13:06 63 16 111/55 96 06/02/17 13:06 64 16 06/02/17 13:01 64 13 06/02/17 13:01 63 13 101/57 97 06/02/17 12:56 64 20 105/58 96 06/02/17 12:56 64 20 06/02/17 12:51 66 19 98/59 96 06/02/17 12:51 65 19 06/02/17 12:46 63 22 111/63 96 06/02/17 12:46 64 22 06/02/17 12:41 64 22 101/59 99 06/02/17 12:41 64 22 06/02/17 12:39 99/56 06/02/17 12:36 36.7 64 16 101/59 98 Nasal Cannula 3 (Juani Gambino, PA-C) Physical Exam General Appearance: no apparent distress, + obese Eyes: normal inspection, PERRL ENT: hearing grossly normal Neck: supple Respiratory/Chest: lungs clear, no respiratory distress, no accessory muscle use Cardiovascular: regular rate, rhythm Abdomen: normal bowel sounds, non tender, soft Extremities: no pedal edema, no calf tenderness, + pertinent finding (LLE wrapped in GOOD bandage; hemovac w/ bloody output ) Neurologic/Psychiatric: no motor/sensory deficits, alert, normal mood/affect, oriented x 3 Skin: normal color, warm/dry, no rash (Juani Gambino ., PA-C) Laboratory Results Last 24 Hours Test 06/02/17 12:42 06/02/17 17:04 06/02/17 20:48 06/03/17 06:05 Bedside Glucose 143 mg/dl 198 mg/dl 181 mg/dl White Blood Count 10.92 K/uL Red Blood Count 3.42 M/uL Hemoglobin 10.9 g/dL Hematocrit 32.1 % Mean Corpuscular Volume 93.9 fL Mean Corpuscular Hemoglobin 31.9 pg Mean Corpuscular Hemoglobin Concent 34.0 g/dl RDW Standard Deviation 44.7 fL RDW Coefficient of Variation 13.1 % Platelet Count 233 K/uL Mean Platelet Volume 10.9 fL Prothrombin Time 10.6 SECONDS Prothromb Time International Ratio 1.0 Sodium Level 135 mmol/L Potassium Level 4.4 mmol/L Chloride Level 104 mmol/L Carbon Dioxide Level 24 mmol/L Anion Gap 7.0 mmol/L Blood Urea Nitrogen 22 mg/dl Creatinine 0.90 mg/dl Est Creatinine Clear Calc Drug Dose 109.0 ml/min Estimated GFR () 108.0 Estimated GFR (Non- 93.2 BUN/Creatinine Ratio 24.2 Random Glucose 147 mg/dl Calcium Level 8.5 mg/dl Test 06/03/17 07:54 Bedside Glucose 133 mg/dl (Juani Gambino PA-C) Assessment and Plan Patient is a pleasant 57 y/o male, with PMHx of HTN, HLD, T2DM, CAD s/p [place] in 2007, depression, and GERD, s/p revision L TKA patellar component by Dr. Blair on 06/02. s/p revision L TKA patellar component by Dr. Blair on 06/02: - Surgical management, pain management, PT/OT, and DVT prophylaxis as per primary team - Bowel regimen ordered - Encourage incentive spirometer - Postop CBC and PRP- STABLE HTN, HLD, T2DM, CAD s/p [place] w/ cardiac stents in 2007- follows w/ [facility]: Continue ASA, Plavix 75 mg daily, Lisinopril 40 mg daily, Toprol XL 50 mg daily T2DM- hgbA1c 6.5% in 04/2017: - Continue Metformin 1,000 mg BID - BSG ACHS and ISS while inpatient Depression: Continue Cymbalta 60 mg daily GERD, GI prophylaxis: Protonix while inpatient- resume Prilosec at discharge DVT prophylaxis: ASA 325 mg BID as per surgical team Code Status: LEVEL I, FULL Dispo: As per primary team- planning for discharge to home later today (Juani Gambino PA-C) History Physician Plugger Man Supervision Note: patient left before i could see him today. Discussed with CARLEE Gambino and agree with findings and plan as documented in the note. Any exceptions or clarifications are listed here: None Documented By: Misty Munoz (Misty Munoz MD)
--- NOTE | 2017-06-09 08:40 | DISCHARGE SUMMARY ---
DISCHARGE DIAGNOSIS: Mechanical loosening, left knee replacement. SECONDARY DIAGNOSES: Type 2 diabetes. CONSULTS: Norberto Kidd MD. COMPLICATIONS: None. PROCEDURE: The patient underwent revision patellar component and poly exchange, left total knee replacement. BRIEF HISTORY: Please see previously dictated history and physical. HOSPITAL SUMMARY: The patient was admitted on the above day for the above procedure. Procedure went without complication. Postop day 1, the patient was feeling well without complaints. He denied chest pain or shortness of breath. Vital signs were stable. He was afebrile. Dressing was clean, dry and intact. He was neurovascularly intact. Calves were soft and nontender. Hemovac drained 80 and 120 mL per shift. Hemoglobin was 10.9. The patient began physical therapy per protocol. He was on clindamycin x24 hours. He was on aspirin and Plavix for DVT prophylaxis. Two cultures showed no growth. One culture showed a coag negative staph. The patient began physical therapy per protocol. He was discharged to home later that day in stable condition. For further review please see the chart. Lab, x-ray data and discharge instructions as per chart.
== END 2017-06-03 14:20 | disposition home health service (06) | DRG 465 ==
LOC: C.ACU 08:32 → C.3E 12:30 → ENRESERV 13:17
PROVIDERS: ADMIT Orthopaedic Surgery; ATTEND Orthopaedic Surgery
PROC: 0SPD09Z Removal of Liner from Left Knee Joint, Open Approach (ICD-10-PCS; principal; 2017-06-02 11:00)
PROC: 0SUD09C Supplement Left Knee Joint with Liner, Patellar Surface, Open Approach (ICD-10-PCS; principal; 2017-06-02 11:00)
DX: T84.033A Mechanical loosening of internal left knee prosthetic joint, initial encounter (principal); Y83.1 Surgical operation with implant of artificial internal device as the cause of abnormal reaction of the patient, or of later complication, without mention of misadventure at the time of the procedure; I10 Essential (primary) hypertension; E11.9 Type 2 diabetes mellitus without complications; K21.9 Gastro-esophageal reflux disease without esophagitis; I25.10 Atherosclerotic heart disease of native coronary artery without angina pectoris; I25.2 Old myocardial infarction; F32.9 Major depressive disorder, single episode, unspecified; F17.200 Nicotine dependence, unspecified, uncomplicated; Z79.899 Other long term (current) drug therapy; Z79.84 Long term (current) use of oral hypoglycemic drugs; Z79.02 Long term (current) use of antithrombotics/antiplatelets; Z96.652 Presence of left artificial knee joint

== ENCOUNTER → 2017-06-11 | Outpatient (CLI) | payer OTHER ==
[~2017-06-11] MED LIST changes: +ACET-24 PO; -ACETAMINOPHEN 500 MG TAB PO SCH; +ASPEC325 PO; -ASPI-232 PO; -BUPIVACAINE 0.5 % 5 MG/1 ML PF 10ML VIAL ONE; -CEFAZOLIN 2000MG IV PUSH 10 ML IV SCH; +CLB200 PO; -CLINDAMYCIN 600 MG/54 ML D5W 54 ML IV SCH; -CeleBREX 200 MG CAP PO SCH; -DEXAMETHASONE 4 MG TAB PO SCH; -FAMOTIDINE 20 MG TAB PO SCH; -GABAPENTIN 300 MG CAP PO SCH; -LACTATED RINGER'S 1000ML 1,000 ML IV SCH; -LACTATED RINGER'S 1000ML 500 ML IV SCH; -METOCLOPRAMIDE HCL 10 MG TAB PO SCH; +ONDA8TAB6 PO; +OXYSR10 PO; -ROPIVACAINE 5MG/ML 30 ML 150 MG, BUPIVACAINE 0.5% MPF INJ 30 ML, EpINEphrine HCL INJ 0.... INFIL SCH; +RXC5 PO; +SENN-61 PO; -TRAM-10 PO
[2017-06-11 15:40] LABS: BASO ABS # 0.07 K/uL (0-0.2); EOS % 2.9 %; HEMATOCRIT 37.1 % (42-52); HEMOGLOBIN 12.5 g/dL (14.0-18.0); IG# 0.04 K/uL (0.00-0.02); LYMPH % 24.2 %; LYMPH ABS # 1.69 K/uL (1.2-3.4); MEAN CELL VOLUME 94.2 fL (80-100); MEAN CORPUSCULAR HEMOGLOBIN 31.7 pg (25-34); MEAN CORPUSCULAR HGB CONC 33.7 g/dl (32-36); MEAN PLATELET VOLUME 11.3 fL (7.4-10.4); MONO % 7.9 %; MONO ABS # 0.55 K/uL (0.11-0.59); NEUT % 63.4 %; NEUT ABS # 4.42 K/uL (1.4-6.5); PLATELET COUNT 347 K/uL (130-400); RED CELL DISTRIBUTION WIDTH CV 13.5 % (11.5-14.5); RED CELL DISTRIBUTION WIDTH SD 46.3 fL (36.4-46.3); WHITE BLOOD COUNT 6.97 K/uL (4.8-10.8)
[2017-06-11 15:54] LABS: ALBUMIN 3.6 gm/dl (3.4-5.0); BLOOD UREA NITROGEN 20 mg/dl (7-18); CALCIUM 9.1 mg/dl (8.5-10.1); CARBON DIOXIDE 23 mmol/L (21-32); CREATININE 1.26 mg/dl (0.60-1.40); GLUCOSE 161 mg/dl (70-99); POTASSIUM 4.2 mmol/L (3.5-5.1); SODIUM 137 mmol/L (136-145)
[2017-06-11 15:58] LABS: ALKALINE PHOSPHATASE 63 U/L (45-117); ALT/SGPT 37 U/L (12-78); AST/SGOT 17 U/L (15-37); TOTAL PROTEIN 7.1 gm/dl (6.4-8.2)
== END | disposition home or self-care (01) ==
LOC: C.LAB1850 14:36
PROVIDERS: ATTEND Internal Medicine Infectious Disease
DX: T84.54XA Infection and inflammatory reaction due to internal left knee prosthesis, initial encounter (principal); X58.XXXA Exposure to other specified factors, initial encounter

== ENCOUNTER 2019-10-19 08:39 | Inpatient (IN) ==
--- NOTE | 2019-10-07 09:36 | Anesthesiology Consultation ---
Date of Service October 07, 2019 Assessment & Plan (1) Encounter for pre-operative examination: - Travel assessment (as of RN phone interview 08/16/19): negative/RN attempting to obtain more up to date assessment. - Check BMP/BSG AM DOS (most recent out of date) Chart Review Chart Review: Acceptable Risk for Surgery and Patient NOT seen in Pre Admission Testing History Surgery Operation Date: 10/19/19 07:45 Proposed Procedures p L2-S1 Decompression Fusion, Spinal Cord Monitoring - Naresh Khalil DO Height/Weight Height: 5 ft 10 in Weight: 111.13 kg Allergies Allergy/AdvReac Type Severity Reaction Status Date / Time [id number] Reductase Allergy Intermediate body aches Verified 08/16/19 12:04 Inhibitor latex Allergy Mild Rash Verified 08/16/19 12:04 Penicillins Allergy Mild Rash Verified 08/16/19 12:04 gemfibrozil Allergy Verified 09/27/19 10:39 adhesive AdvReac Mild Rash Verified 08/16/19 12:04 Medications Home Medications Medication Instructions Recorded Confirmed Last Taken aspirin 325 mg PO QAM 03/16/19 08/16/19 03/30/19 08:00 cholecalciferol (vitamin D3) 5,000 unit PO QAM 03/16/19 08/16/19 03/30/19 08:00 [Vitamin D3] coQ10 (ubiquinol) 200 mg PO QAM 03/16/19 08/16/19 03/30/19 08:00 lisinopril 40 mg PO QAM 03/16/19 08/16/19 03/31/19 06:30 metformin 1,000 mg PO QAM 03/16/19 08/16/19 03/30/19 08:00 metoprolol succinate 50 mg PO QAM 03/16/19 08/16/19 03/31/19 06:30 duloxetine 60 mg capsule,delayed 60 mg PO QAM #90 cap 03/17/19 08/16/19 03/31/19 06:30 release glimepiride 1 mg tablet 1 mg PO QAM #90 tab 06/29/19 08/16/19 Unknown omeprazole 40 mg capsule,delayed 40 mg PO QAM #90 cap 08/04/19 08/16/19 Unknown release fenofibrate 160 mg PO QAM 08/16/19 08/16/19 Unknown tramadol 50 mg tablet 100 mg PO BID #120 tab 08/30/19 Unknown Past Medical History Medical History (Updated 10/07/19 @ 09:36 by Isela Mckeon) Degenerative disc disease Diabetes mellitus, type 2 GERD (gastroesophageal reflux disease) Hyperlipidemia Hypertension Myocardial infarction 2009 - 2 stents/follows with [facility] cardiology Osteoarthritis Sleep apnea no device Past Family History Family History Mother Family history of diabetes mellitus Father Family history of diabetes mellitus Denies family history of Ovarian cancer Prostate cancer Myocardial infarction Breast cancer Colorectal cancer Past Surgical History Surgical History Fusion of spine CERVICAL History of colonoscopy History of esophagogastroduodenoscopy (EGD) History of heart artery stent 2008>2 STENTS AT [facility] (FOLLOWED BY DR. NASCIMENTO) History of lumbar surgery X 2 History of nasal septoplasty History of total knee replacement RT/LEFT (LEFT REVISION) Hx of transurethral resection of prostate Social History Smoking Status: Current every day smoker tobacco type: cigarettes Smoking cigarettes per day: 6-10 CIG DAILY Do You Dip or Chew Tobacco: Yes (4-5 CANS WEEKLY) Hx Alcohol Use: Yes Alcohol type: beer alcohol intake frequency: 3 or more drinks per day Alcohol Intake Frequency Comment: 6-8 BEERS DAILY Hx Substance Use: No substance use type: does not use Testing Laboratory Results 10/01/19 WBC 8.14 H/H 13.4/40.1 PLATELETS 338 07/23/19 SODIUM 132 POTASSIUM 5.1 CHLORIDE 97 CO2 30 BUN 23 CREATININE 1.06 GLUCOSE 135 HGBA1C 6.5% Electrocardiogram Date: 10/01/19 Findings: + NSR @ (71) Chest X-Ray Date: 10/01/19 Findings: + NAD Stress Test Date: 08/31/14 Negative for ischemia at 74% MPHR by echo and EKG. Baseline echo with normal LV function. No significant valvular disease. EF 60-65%.
--- NOTE | 2019-10-08 13:08 | History & Physical Report ---
Date of Service October 08, 2019 Assessment & Plan (1) Neurogenic claudication due to lumbar spinal stenosis: At this time patient is failed extensive course of nonoperative care is presenting with worsening neurologic decline and progressive weakness we are recommending urgent multilevel lumbar decompression fusion and hopefully avoid permanent long-term neurologic sequelae. Surgery would require a lumbar decompression and fusion L4-5 L5-S1 and possibly L2-3 L3-4. Risk benefits pros cons and alternatives were outlined in detail. Present on Admission?: Yes History of Present Illness Chief Complaint: Back and bilateral leg pain Primary Care Provider: Nitish Lam MD This is a 59-year-old male who presents with worsening back and bilateral leg pain left worse than right. He does have a history of previous lumbar surgery. Unfortunately had a marked decline in status over the past several months now with evidence of weakness affecting the lower extremities. On extensive course of nonoperative care without improvement. Allergies Allergy/AdvReac Type Severity Reaction Status Date / Time Zdmfnus-Ezr-Kfv Reductase Allergy Intermediate body aches Verified 08/16/19 12:04 Inhibitor latex Allergy Mild Rash Verified 08/16/19 12:04 Penicillins Allergy Mild Rash Verified 08/16/19 12:04 gemfibrozil Allergy Verified 09/27/19 10:39 adhesive AdvReac Mild Rash Verified 08/16/19 12:04 Home Medications Home Medications Medication Instructions Recorded Confirmed Type aspirin 325 mg PO QAM 03/16/19 08/16/19 History cholecalciferol (vitamin D3) 5,000 unit PO QAM 03/16/19 08/16/19 History [Vitamin D3] coQ10 (ubiquinol) 200 mg PO QAM 03/16/19 08/16/19 History lisinopril 40 mg PO QAM 03/16/19 08/16/19 History metformin 1,000 mg PO QAM 03/16/19 08/16/19 History metoprolol succinate 50 mg PO QAM 03/16/19 08/16/19 History duloxetine 60 mg capsule,delayed 60 mg PO QAM #90 cap 03/17/19 08/16/19 Rx release glimepiride 1 mg tablet 1 mg PO QAM #90 tab 06/29/19 08/16/19 Rx omeprazole 40 mg capsule,delayed 40 mg PO QAM #90 cap 08/04/19 08/16/19 Rx release fenofibrate 160 mg PO QAM 08/16/19 08/16/19 History tramadol 50 mg tablet 100 mg PO BID #120 tab 08/30/19 Rx Past Med/Surg History Medical History (Updated 10/08/19 @ 13:08 by Naresh Khalil, ) Degenerative disc disease Diabetes mellitus, type 2 GERD (gastroesophageal reflux disease) Hyperlipidemia Hypertension Myocardial infarction 2008 - 2 stents/follows with [facility] cardiology Osteoarthritis Sleep apnea no device Surgical History (Updated 10/08/19 @ 08:41 by Darren Nance PA-C) Fusion of spine CERVICAL History of colonoscopy History of esophagogastroduodenoscopy (EGD) History of heart artery stent 2009>2 STENTS AT [facility] (FOLLOWED BY DR. NASCIMENTO) History of lumbar surgery X 2 History of nasal septoplasty History of total knee replacement RT/LEFT (LEFT REVISION) Hx of transurethral resection of prostate Family History Mother Family history of diabetes mellitus Father Family history of diabetes mellitus Denies family history of Ovarian cancer Prostate cancer Myocardial infarction Breast cancer Colorectal cancer Social History Preferred Language: Congolese Communication Ability: Effective Portable Router Operator Required: No Beliefs That Will Affect Care: None Current Living Situation: Spouse Feels Safe at Home: Yes Smoking Status: Current every day smoker Tobacco Type: cigarettes ; Age Started Using Tobacco: 18 ; Cigarettes Per Day: 6-10 CIG DAILY ; Second Hand Exposure: Yes ; Hx Alcohol Use: Yes Alcohol type: beer Hx Substance Use: No Physical Exam Physical Exam: Patient is alert and oriented Exam is obvious distress. Ambulates with a stooped posture. Bench exam reveals developing foot drop on the left lower extremity compared to the right. Quadriceps are symmetric and intact. There is diminished deep tendon reflexes bilaterally. Heart is regular rate and rhythm Lungs clear to auscultation Results & Data Diagnostic Findings MRI lumbar spine demonstrates significant multilevel spondylosis with evidence of retrolisthesis L4-5 L5-S1 and bilateral neuroforaminal disease. There is evidence of acute disc herniation L4-5 with caudal migration. There is significant central lateral recess stenosis L4-5 L5-S1 as well as L2-3.
[~2019-10-19 08:39] MED LIST changes: -ACET-24 PO; -ASPEC325 PO; -CHOLCAP5 PO; -CLB200 PO; +CLINDAMYCIN 600 MG/54 ML BAG IV SCH; -CLOP1TAB15 PO; -COEN1CAP7 PO; -CYM/30 PO; -FENO1TAB PO; +GABAPENTIN 600 MG DOSE PO SCH; -GLC/500 PO; -LISI40TA PO; -METO-217 PO; -ONDA8TAB6 PO; -OXYSR10 PO; -PRLSR20 PO; +ROCURONIUM BROMIDE 10 MG/ML 5 ML VIAL ONE; -RXC5 PO; -SENN-61 PO; +SODIUM CHLORIDE 0.9% 250 ML IV PRN
[2019-10-19] MEDS ORDERED: GLYCOPYRROLATE 0.2 MG/ML VIAL ONE (09:22)
[2019-10-19] MEDS ORDERED: PROPOFOL IV EMULSION 10 MG/ML 20 ML VIAL IV ONE (09:22)
[2019-10-19] MEDS ORDERED: fentaNYL citrate 100 MCG/2 ML VIAL ONE ×4 (09:22→14:07)
[2019-10-19] MEDS ORDERED: ONDANSETRON INJ 2 MG/ML 2 ML VIAL ONE (09:22)
[2019-10-19] MEDS ORDERED: NEOSTIGMINE METHYLSULFATE 5 MG/5 ML SYR ONE (09:22)
[2019-10-19] MEDS ORDERED: DEXAMETHASONE SOD INJ 4 MG/ML VIAL ONE (09:22)
[2019-10-19] MEDS ORDERED: LIDOCAINE HCL 2% 2 ML VIAL/AMP(20MG/ML) INFIL ONE (09:22)
[2019-10-19] MEDS ORDERED: MIDAZOLAM HCL 1 MG/ML 2ML VIAL ONE (09:22)
--- NOTE | 2019-10-19 09:30 | History & Physical Bridge Note ---
Date of Service October 19, 2019 History & Physical Bridge Note I have examined the patient, reviewed the History & Physical and in the interval since the performance of the History & Physical I have noted the following changes of clinical significance: no changes noted
[2019-10-19 09:47] LABS: BUN Creatinine Ratio 13.6 (10-20); Calcium 9.2 mg/dl (8.5-10.1); Est GFR (Non-African American) 87.2; Potassium 4.3 mmol/L (3.5-5.1)
[2019-10-19] MEDS ORDERED: METOCLOPRAMIDE HCL INJ 5 MG/ML 2 ML VIAL IV PRN ×2 (09:48→16:05)
[2019-10-19] MEDS ORDERED: ONDANSETRON INJ 2 MG/ML 2 ML VIAL IV PRN ×2 (09:48→16:05)
[2019-10-19] MEDS ORDERED: ePHEDrine sulfate 50 MG/ML AMP IV PRN (09:48)
[2019-10-19] MEDS ORDERED: ATROPINE SULFATE 0.1 MG/ML 10ML SYR IV PRN (09:48)
[2019-10-19] MEDS ORDERED: PROMETHAZINE HCL 12.5 MG in SODIUM CHLORIDE 0.9% 50 ML IV PRN ×2 (09:48→16:05)
[2019-10-19] MEDS: LACTATED RINGER'S 1,000 ML IV SCH (09:51)
[2019-10-19] MEDS ORDERED: BUPIVACAINE/EPINEPHRINE 0.25% 1:200,000 30 ML VIAL ONE (09:54)
[2019-10-19] MEDS ORDERED: BACITRACIN INJ 50,000 UNIT VIAL ONE (09:54)
[2019-10-19] MEDS ORDERED: HYDROmorphone INJ 2 MG/ML SYR/VIAL ONE (10:46)
[2019-10-19] MEDS ORDERED: LABETALOL HCL IV 5 MG/ML 20ML IV ONE (10:56)
[2019-10-19] MEDS ORDERED: FLOSEAL HEMOSTATIC MATRIX 10ML TOP ONE (11:42)
[2019-10-19] MEDS ORDERED: ePHEDrine sulfate 50 MG/ML AMP ONE (11:43)
[2019-10-19] MEDS ORDERED: PHENYLEPHRINE 100MCG/ML 5ML SYR ONE (11:43)
[2019-10-19] MEDS ORDERED: ROCURONIUM BROMIDE 10 MG/ML 5 ML VIAL ONE (13:24)
--- NOTE | 2019-10-19 13:33 | Operative Report ---
Post Operative Report Pre & Post Diagnosis Operation Date: 10/19/19 10:05 Pre-Op Diagnosis: Spinal Stenosis, Neurogenic Claudication Post-Op Diagnosis: Spinal Stenosis, Neurogenic Claudication I identified the patient and participated in the time-out.: Yes Procedure Operation Date: 10/19/19 10:05 Actual procedure #1 revision decompression with bilateral medial facetectomies and foraminotomies L3-4 L4-5 L5-S1. #2 posterior spinal fusion L2-3, L3-4, L4-5 and L5-S1. #3 placement posterior segmental instrumentation from L2-S1. #4 interbody fusion L4-5 and L5-S1. #5 placed of titanium 12 x 26 mm cage at L4-5 and 10 x 26 mm at L5-S1. #6 placement locally harvested morselized autograft in the posterior lateral gutters. #7 placement infuse collagen sponge bone master graft in the posterior lateral gutters and ostial amp and interbody space. Surgeon Naresh Khalil, DO Outside Sales Engineer Rachel Vu Estimated Blood Loss 300 Findings See Below Patient is 5 foot 10 inches tall weighing over 113 kg with a BMI in excess of 35. The patient's body habitus did add significant technical difficulty requiring our deepest retractors and longest instruments in order to perform his procedure. This added at least 40% increase to the operative time. Specimens None Indications This is a 59-year-old male known to me the presents with marked decline in neurologic status and subsequently here for the above-mentioned procedure. Description of Procedure Patient was met with identified informed consent obtained. Patient was then taken to the operative suite underwent intubation placed in a prone position the Brock table on top Angel frame. All bony prominences well-padded eyes inspected to ensure no external pressure placed upon them. This point the lumbar spine was prepped and draped in a normal sterile fashion. Sharp dissection with the assistance of Bovie cautery was performed down to and exposing the lamina and transverse processes of L2 L3-L4-L5 and sacral ala bilaterally. From a caudal to cephalad fashion revision complete laminectomy of L5 L4 and L3 was performed including bilateral medial facetectomies and foraminotomies addressing severe spinal stenosis is Sidney Olson is evidence of disc material in the foramen of L4 and L5 on the left. After complete decompression pedicle screws were then placed in L 2 L3-L4-L5 and the S1 bilaterally with with the assistance of fluoroscopy. The appropriate size diana was placed. By way of a transforaminal approach on the left complete discectomy of L5-S1 was performed endplates curetted to subcortical bleeding bone and a 10 x 26 mm titanium cage filled with osteo-bone graft tapped in position. Then pr oceeded L4-[address] of a transforaminal approach on the left complete discectomy was performed endplates curetted to subcortical bleeding bone and a 12 x 26 mm titanium cage filled with osteo-bone graft tapped in position. The rods were then locked in final position bilaterally. The transverse processes of L2 L3-L4-L5 and sacral ala were then burred to subcortical bleeding bone. Infuse collagen sponge master graft and local autograft was then placed in the posterior lateral gutters. 15 round MASON drain inserted. The incision was then closed with 1 Vicryl in the fascia 2-0 Vicryl subcutaneously and 4 Monocryl for final skin closure. Steri-Strip sterile dressings placed. Patient will continue PACU stable addition. Please note spinal cord monitoring was utilized that the procedure no changes noted. Lastly Rcahel Vu was present throughout the entire procedure involved the patient positioning complex portions of the surgery and final skin closure. I attest to the content of the Intraoperative Record and any orders documented therein. Any exceptions are noted below.
--- NOTE | 2019-10-19 14:10 | Fluoroscopy Report ---
FL lumbar spine 2-3V CLINICAL HISTORY: L2-S1 DECOMPRESSION AND FUSION COMPARISON STUDY: None. FLUOROSCOPY TIME: 34 seconds. 3 fluoroscopic spot images. FINDINGS: L2-S1 posterior decompression fusion with pedicle screws and rods. Hardware appears intact. No fractures identified. IMPRESSION: Fluoroscopy provided for L2-S1 posterior decompression and fusion. ACT 112: Negative or not required by law. Electronically signed by: Que Cabral M.D. 10/19/2019 2:09 PM
[2019-10-19] MEDS: fentaNYL citrate 100 MCG/2 ML VIAL IV PRN ×2 (14:25→14:31)
[2019-10-19] MEDS: HYDROmorphone INJ 2 MG/ML SYR/VIAL IV PRN ×4 (14:39→15:06)
[2019-10-19] MEDS ORDERED: METOPROLOL TARTRATE 1 MG/ML VIAL IV ONE (14:42)
[2019-10-19] MEDS ORDERED: METOPROLOL TARTRATE 1 MG/ML VIAL IV STA (14:43)
--- NOTE | 2019-10-19 14:53 | Anesthesiology Progress Note ---
Date of Service October 19, 2019 Anesthesia Post Procedure Vital Signs Vital Signs: Temp Pulse Resp BP Pulse Ox 10/19/19 09:11 37.2 C 79 18 184/82 H 96 Pain Intensity Left Lower Back: Pain Intensity: 5 Transfer of Care Handoff Completed per policy Notes Mental Status: alert / awake / arousable and participated in evaluation Patient Amnestic to Procedure: Yes Nausea / Vomiting: adequately controlled Pain: adequately controlled Airway Patency, RR, SpO2: stable & adequate BP & HR: stable & adequate Hydration State: stable & adequate Anesthetic Complications: no major complications apparent
--- NOTE | 2019-10-19 14:53 | Anesthesiology Progress Note ---
Date of Service October 19, 2019 Anesthesia Post Procedure Vital Signs Vital Signs: Temp Pulse Pulse Pulse Resp BP BP 10/19/19 14:45 102 H 130/83 10/19/19 14:20 112 H 20 10/19/19 14:13 37.4 C 107 H 12 10/19/19 09:11 37.2 C 79 18 184/82 H BP Pulse Ox 10/19/19 14:45 10/19/19 14:20 133/85 99 10/19/19 14:13 148/85 H 99 10/19/19 09:11 96 Pain Intensity Left Lower Back: Pain Intensity: 5 Lower Back: Pain Intensity: 7 Transfer of Care Handoff Completed per policy Notes Mental Status: alert / awake / arousable and participated in evaluation Patient Amnestic to Procedure: Yes Nausea / Vomiting: adequately controlled Pain: adequately controlled Airway Patency, RR, SpO2: stable & adequate BP & HR: stable & adequate Hydration State: stable & adequate Anesthetic Complications: no major complications apparent
[2019-10-19] MEDS ORDERED: LORazepam 0.5 MG TAB PO PRN (16:05)
[2019-10-19] MEDS ORDERED: NALOXONE HCL 0.4 MG/1 ML VIAL/CARP IV PRN (16:05)
[2019-10-19] MEDS ORDERED: ACETAMINOPHEN 500 MG TAB PO PRN (16:05)
[2019-10-19] MEDS ORDERED: bisacodyL 10 MG SUPP PR PRN (16:05)
[2019-10-19] MEDS ORDERED: SOD PHOSPHATE/SOD BIPHOSPHATE ENEMA 132 ML BTL PR PRN (16:05)
[2019-10-19] MEDS ORDERED: HYDROmorphone INJ 0.5 MG/0.5 ML SYR IV PRN (16:05)
[2019-10-19] MEDS ORDERED: LORazepam 0.5 MG/1 ML VIAL IV PRN (16:05)
[2019-10-19] MEDS ORDERED: FAMOTIDINE 20 MG TAB PO PRN (16:05)
[2019-10-19] MEDS ORDERED: DO NOT ADMINISTER FLU VACCINE PRN (16:05)
[2019-10-19] MEDS ORDERED: ONDANSETRON 4 MG OD TAB PO PRN (16:05)
[2019-10-19] MEDS ORDERED: ALUMINUM/MAGNESIUM SUSP 30 ML UDC PO PRN (16:05)
[2019-10-19] MEDS ORDERED: DO NOT ADMINISTER PNEUMOCOCCAL VACCINE PRN (16:05)
[2019-10-19] MEDS ORDERED: ACETAMINOPHEN 1,000 MG/100 ML VIAL IV PRN (16:05)
[2019-10-19] MEDS ORDERED: MAGNESIUM HYDROXIDE SUSP 30 ML UDC PO PRN (16:05)
[2019-10-19] MEDS: SODIUM CHLORIDE 0.9% 1000ML 1,000 ML IV SCH ×2 (16:25→22:55)
[2019-10-19] MEDS ORDERED: PHARMACY GLYCEMIC MGMT CONSULT PRN (16:34)
[2019-10-19] MEDS ORDERED: GLUCAGON FOR INJ 1 MG VIAL SQ PRN (16:45)
[2019-10-19] MEDS ORDERED: CARBOHYDRATES FOR HYPOGLYCEMIA PO PRN (16:45)
[2019-10-19] MEDS ORDERED: DEXTROSE 50% 50 ML SYRINGE IV PRN (16:45)
[2019-10-19] MEDS ORDERED: GLUCOSE 40% GEL 15 GM TUBE PO PRN (16:45)
[2019-10-19] MEDS ORDERED: GLUCOSE 10 TABS/TUBE PO PRN (16:45)
[2019-10-19] MEDS: HYDROmorphone INJ 1 MG/ML SYRINGE IV PRN ×2 (16:53→20:10)
[2019-10-19] MEDS ORDERED: INSULIN GLARGINE SOLOSTAR 100 UNITS/ML 3 ML PEN SC ONE (17:00)
--- NOTE | 2019-10-19 17:56 | Hospitalist Consultation ---
Date of Consultation October 19, 2019 Assessment & Plan (1) Neurogenic claudication due to lumbar spinal stenosis: S/p L3/L4, L4/L5, & L5/S1 spinal fusion with Dr. Khalil on 10/18. - EBL was 300 mL -> At risk for post-operative acute blood loss anemia; trend CBC. - Routine post-operative care per primary team - DVT prophylaxis per primary team once bleeding risk deemed acceptable. (2) Diabetes mellitus, type 2: A1c was 6.5% in 06/2019. - Will hold home oral meds to prevent hypoglycemia - Sliding scale insulin (3) CAD in [place] artery: Prior [place]. - Continue ASA & beta-felicity per cardiology recs prior to surgery. - Will hold ACEi tomorrow until we are sure he doesn't have an increase in his Cr post-operatively. (4) Current smoker: Will offer nicotine patch. (5) Anxiety and depression: - Continue duloxetine (6) DVT prophylaxis: - SCDs and early ambulation. - Presently on ASA 81 mg PO daily for cardiac health; can increase or adjust per primary team. History of Present Illness Attending Physician: Naresh Khalil, History of Present Illness 59yo M w/ hx of CAD and spinal stenosis who presents as a medical consult after L3/L4, L4/L5, & L5/S1 spinal fusion. Surgery went well without any major issues. At present the patient has some back pain, but otherwise is in good spirits. Has ROM of the legs and no other pain. Appetite good. Reports no fevers/chills, chest pain, shortness of breath, abdominal pain, nausea, or vomiting. Allergies Allergy/AdvReac Type Severity Reaction Status Date / Time gemfibrozil Allergy Intermediate BODY ACHES Verified 10/19/19 09:06 Neujzng-Ojx-Jlj Reductase Allergy Intermediate body aches Verified 10/19/19 09:06 Inhibitor latex Allergy Mild Rash Verified 10/19/19 09:06 Penicillins Allergy Mild Rash Verified 10/19/19 09:06 adhesive AdvReac Mild Rash Verified 10/19/19 09:06 Home Medications Home Medications Medication Instructions Recorded Confirmed Type cholecalciferol (vitamin D3) 5,000 unit PO QAM 03/16/19 10/19/19 History [Vitamin D3] coQ10 (ubiquinol) 200 mg PO QAM 03/16/19 10/19/19 History lisinopril 40 mg PO QAM 03/16/19 10/19/19 History metformin 1,000 mg PO QAM 03/16/19 10/19/19 History metoprolol succinate 50 mg PO QAM 03/16/19 10/19/19 History duloxetine 60 mg capsule,delayed 60 mg PO QAM #90 cap 03/17/19 10/19/19 Rx release glimepiride 1 mg tablet 1 mg PO QAM #90 tab 06/29/19 10/19/19 Rx omeprazole 40 mg capsule,delayed 40 mg PO QAM #90 cap 08/04/19 10/19/19 Rx release fenofibrate 160 mg PO QAM 08/16/19 10/19/19 History aspirin 81 mg PO QAM 10/13/19 10/19/19 History evolocumab 140 mg/mL subcutaneous 140 mg SQ .COMPLEX 90 Days #2 ml 10/15/19 10/19/19 Rx pen injector tramadol 150 mg PO BID 10/19/19 10/19/19 History Patient History Medical History Degenerative disc disease Diabetes mellitus, type 2 GERD (gastroesophageal reflux disease) Hyperlipidemia Hypertension Myocardial infarction 2009 - 2 stents/follows with [facility] cardiology Osteoarthritis Sleep apnea no device Surgical History Fusion of spine CERVICAL History of colonoscopy History of esophagogastroduodenoscopy (EGD) History of heart artery stent 2009>2 STENTS AT [facility] (FOLLOWED BY DR. NASCIMENTO) History of lumbar surgery X 2 History of nasal septoplasty History of total knee replacement RT/LEFT (LEFT REVISION) Hx of transurethral resection of prostate Family History Mother Family history of diabetes mellitus Father Family history of diabetes mellitus Denies family history of Ovarian cancer Prostate cancer Myocardial infarction Breast cancer Colorectal cancer Social History Preferred Language: [place] Human Resources Consultant Required: No Beliefs That Will Affect Care: None marital status: Current Living Situation: Spouse Feels Safe at Home: Yes Safety Concerns: Feels Safe At This Time Smoking Status: Current every day smoker Tobacco Type: cigarettes ; Age Started Using Tobacco: 18 ; Cigarettes Per Day: 6-10 CIG DAILY ; Do You Dip or Chew Tobacco: Yes (4-5 CANS WEEKLY) ; Second Hand Exposure: Yes ; Tobacco Cessation Education Requested by Patient: No Hx Alcohol Use: Yes Alcohol type: beer Hx Substance Use: No Dental Care, Regularly: Yes Physical Activity Frequency: Does not Exercise Review of Systems Review of Systems: All systems reviewed & are unremarkable except as noted in HPI & below Physical Exam Constitutional: WD/WN, vitals as above Eyes: EOM intact bilaterally; no conjunctival abnormality ENMT: external ear and nose normal, oropharynx normal Neck: trachea midline, no thyromegaly normal visual inspection Respiratory: normal respiratory effort, lungs clear to auscultation no respiratory distress Cardiovascular: RRR, no murmur, no edema Gastrointestinal (Abdomen): Inspection/Auscultation: abdomen normal to inspection; abdomen not distended Musculoskeletal: no cyanosis or clubbing, extremities motor strength 5/5 Skin: no rashes, warm and dry Neurologic: moves all extremities and awake Psychiatric: Orientation: alert, oriented to person and cooperative Results & Data Results & Data ([facility]) Vital Signs (Past 12 Hours) Vital Signs Temp Pulse Pulse Pulse Pulse Resp BP 10/19/19 16:57 36.9 C 87 16 10/19/19 16:22 36.7 C 82 16 10/19/19 15:50 36.8 C 86 14 10/19/19 15:30 85 12 10/19/19 15:20 37.1 C 89 14 10/19/19 15:10 90 12 10/19/19 15:00 90 17 10/19/19 14:50 91 H 12 10/19/19 14:45 102 H 130/83 10/19/19 14:40 94 H 12 10/19/19 14:30 100 H 15 10/19/19 14:20 112 H 20 10/19/19 14:13 37.4 C 107 H 12 10/19/19 09:11 37.2 C 79 18 BP BP Pulse Ox 10/19/19 16:57 143/75 H 97 10/19/19 16:22 139/75 97 10/19/19 15:50 130/67 97 10/19/19 15:30 112/87 95 10/19/19 15:20 126/74 96 10/19/19 15:10 103/84 96 10/19/19 15:00 130/80 95 10/19/19 14:50 153/74 H 94 10/19/19 14:45 10/19/19 14:40 125/88 92 10/19/19 14:30 120/84 93 10/19/19 14:20 133/85 99 10/19/19 14:13 148/85 H 99 10/19/19 09:11 184/82 H 96 PG Care Time/CCT Total # of Minutes Spent Total Time Spent with Patient: Total time spent is greater than 50% in coordination of care (as documented) at patient's floor/unit and/or counseling patient: Coding Level of Care Code 78743 Inpt Consult Level 4 Diagnoses Neurogenic claudication due to lumbar spinal stenosis M48.062 Diabetes mellitus, type 2 E11.9 CAD in [place] artery I25.10 Current smoker F17.200 Anxiety and depression F41.9; F32.9 DVT prophylaxis Z29.9
[2019-10-19] MEDS: KETOROLAC 30 MG/ML VIAL IV SCH ×2 (18:20→23:52)
[2019-10-19] MEDS: CLINDAMYCIN 600 MG in DEXTROSE 5% 50 ML IV SCH (18:26)
[2019-10-19] MEDS: INSULIN ASPART 100 UNITS/ML 3 ML PEN SC SCH ×3 (18:35→23:48)
[2019-10-19] MEDS: OXYCODONE HCL IR 5 MG TAB (IMMEDIATE RELEASE) PO PRN ×2 (18:49→22:53)
[2019-10-19] MEDS: DOCUSATE SODIUM/SENNA 50/8.6MG TAB PO SCH (20:14)
[2019-10-20] MEDS: TRAMADOL HCL 50 MG TABLET PO PRN ×2 (00:57→04:53)
[2019-10-20] MEDS: CLINDAMYCIN 600 MG in DEXTROSE 5% 50 ML IV SCH (01:02)
[2019-10-20] MEDS: OXYCODONE HCL IR 5 MG TAB (IMMEDIATE RELEASE) PO PRN ×5 (04:07→22:55)
[2019-10-20] MEDS: INSULIN ASPART 100 UNITS/ML 3 ML PEN SC SCH ×5 (04:14→20:48)
[2019-10-20] MEDS: SODIUM CHLORIDE 0.9% 1000ML 1,000 ML IV SCH (05:59)
[2019-10-20] MEDS: KETOROLAC 30 MG/ML VIAL IV SCH ×2 (06:06→11:33)
[2019-10-20] MEDS: POLYETHYLENE (MIRALAX) 17 GM PACK PO SCH ×4 (06:06→23:49)
[2019-10-20 06:07] LABS: Basophils # (auto) 0.04 K/uL (0-0.2); Basophils % (auto) 0.4 %; Eosinophils # (auto) 0.02 K/uL (0-0.5); Eosinophils % (auto) 0.2 %; Hematocrit (blood only) 30.4 % (42-52); Hemoglobin 9.6 g/dL (14.0-18.0); Immature Granulocytes # (auto) 0.06 K/uL (0.00-0.02); Immature Granulocytes % (auto) 0.6 %; Lymphocytes # (auto) 1.57 K/uL (1.2-3.4); Lymphocytes % (auto) 16.5 %; Mean Corpuscular Hemoglobin 33.1 pg (25-34); Mean Corpuscular Hgb Conc 31.6 g/dL (32-36); Mean Corpuscular Volume 104.8 fL (80-100); Mean Platelet Volume 10.7 fL (7.4-10.4); Monocytes # (auto) 0.99 K/uL (0.11-0.59); Monocytes % (auto) 10.4 %; Neutrophils # (auto) 6.81 K/uL (1.4-6.5); Neutrophils % (auto) 71.9 %; Platelet Count 288 K/uL (130-400); RDW Coefficient of Variation 14.1 % (11.5-14.5); RDW Standard Deviation 53.4 fL (36.4-46.3); White Blood Count 9.49 K/uL (4.8-10.8)
[2019-10-20] MEDS: HYDROmorphone INJ 1 MG/ML SYRINGE IV PRN ×5 (06:23→23:51)
[2019-10-20 06:46] LABS: BUN Creatinine Ratio 14.9 (10-20); Calcium 8.1 mg/dl (8.5-10.1); Creatinine Clr Calc Pharmacy 81.5 ml/min; Est GFR (African American) 75.2; Est GFR (Non-African American) 64.9; Potassium 4.4 mmol/L (3.5-5.1)
[2019-10-20] MEDS: CHOLECALCIFEROL 1,000 UNITS 25 MCG TAB PO SCH (08:20)
[2019-10-20] MEDS: PANTOprazole 40 MG TAB PO SCH (08:20)
[2019-10-20] MEDS: DULOXETINE HCL 60 MG CAP PO SCH (08:20)
[2019-10-20] MEDS: METOPROLOL SUCC 50MG EXT REL TAB PO SCH (08:20)
--- NOTE | 2019-10-20 08:20 | Orthopedic Progress Note ---
Date of Service October 20, 2019 Assessment & Plan (1) Neurogenic claudication due to lumbar spinal stenosis: This time initiate physical therapy advance his bowel regiment monitor his MASON output anticipate discharge home in the next few days. Present on Admission?: Yes Admission and Anticipated Discharge Date Admission Date: October 19, 2019 Subjective Back pain controlled leg symptoms improved. Physical Exam Physical Exam: On exam patient is in bed. He appears comfortable. Is good strength testing. He does have foot drop on the left this has been established. Results & Data ([facility]) Vital Signs (Past 12 Hours) Vital Signs Temp Pulse Resp BP Pulse Ox 10/20/19 07:42 36.9 C 86 18 157/88 H 93 10/20/19 03:29 36.6 C 89 16 129/77 98 10/19/19 23:24 36.6 C 93 H 16 126/72 98 10/19/19 21:23 36.9 C 94 H 18 138/77 96
[2019-10-20] MEDS: LACTATED RINGER'S 1,000 ML IV SCH (08:21)
[2019-10-20] MEDS: FENOFIBRATE NANOCRYSTALLIZED 145 MG TABLET PO SCH (08:21)
[2019-10-20] MEDS: ASPIRIN 81 MG ECTAB PO SCH (08:22)
[2019-10-20] MEDS: DEXAMETHASONE SOD PHOSPHATE 8 MG in SYRINGE 0 ML IV SCH (08:48)
[2019-10-20] MEDS ORDERED: NON-FORMULARY MEDICATION (Coq10 (Ubiquinol) 200 MG) PO SCH (09:00)
[2019-10-20] MEDS ORDERED: GLIMEPIRIDE 2 MG TAB PO SCH (09:00)
[2019-10-20] MEDS ORDERED: lisinopriL 40 MG TAB PO SCH (09:00)
--- NOTE | 2019-10-20 14:36 | Pharmacy Report ---
Glycemic Control Consultation - Date of Service October 20, 2019 - Scope Scope: Glycemic Pharmacist consulted for glycemic control and to write orders per [facility] inpatient glycemic control protocol. - Objective Weight: 113.2 kg Accuchecks BSG (last 24hrs): Laboratory Data (last 24hrs): 10/20/19 05:50 Potassium 4.4 Carbon Dioxide 27 Anion Gap 5.0 Creatinine 1.20 Est Cr Clr Drug Dosing 81.5 - Recent Pertinent Medications Outpatient Anti-diabetic Regimen: * Metformin 1000 mg PO QAM * Glimepiride 1 mg PO QAM * A1c = 6.5% on 07/23/2019 The patient is currently receiving: * Basal insulin: Lantus 20 units SQ x 1 * Correctional Insulin: Novolog Correction per scale ACHS Goal Range: Low 110 mg/dL - High 140 mg/dL Correction Factor: 15 mg/dL/unit * Prandial insulin: Per carb ratio of 1 unit per 5 grams CHO consumed Risk Factors for Insulin Resistance: * Steroids: Dexamethasone 8 mg IV Daily * Recent Surgery: POD #1 Spinal Decompression * Diet: T2DM - Assessment & Plan Assessment & Plan: ASSESSMENT: * 59 yo M admitted secondary to spinal stenosis now POD #1 s/p L3/L4, L4/L5, & L5/S1 spinal fusion * A1c from end June 2019 was 6.5% * Pre-op BSG was 195 mg/dL and patient received 8 mg IV dexamethasone prior to procedure * Pharmacy consulted post-op and BSG was 175 mg/dL. Patient was given 20 units of Lantus (0.18 units/kg) and started on Novolog with a CF/CR of 15/5. * Fasting BSG this AM was 137 mg/dL, acceptable. Patient was started on Dexamethasone 8 mg IV daily starting this AM (end date unknown). * Lunchtime BSG was 180 mg/dL so will transition patient to once daily Lantus at HS * Continue current Novolog parameters, will add overnight checks tonight PLAN FOR INPATIENT GLYCEMIC CONTROL: * Holding outpatient oral diabetes medications * Basal insulin * Lantus per scale SQ HS * 20 units for BSG 180 mg/dL or less (0.18 u/kg) * 25 units for BSG greater than 180 mg/dL (0.22 u/kg) * Bolus insulin * NovoLog per scale ACHS or Q6hrs while NPO * Goal Range: Low 110 mg/dL - High 140 mg/dL * Correction Factor: 15 mg/dL/unit * Nutritional / Prandial insulin per carb ratio of 1 unit per 5 grams CHO consumed * Please note that the plan above was derived based on current level of insulin resistance and hospital stress. These recommendations are appropriate for inpatient admission only. Plan of care upon discharge will need to be reassessed to avoid potential outpatient hypo/hyperglycemia. Thank you.
--- NOTE | 2019-10-20 15:56 | Hospitalist Progress Note ---
Date of Service October 20, 2019 Assessment & Plan (1) Neurogenic claudication due to lumbar spinal stenosis: S/p L3/L4, L4/L5, & L5/S1 spinal fusion with Dr. Khalil on 10/18. - EBL was 300 mL -> At risk for post-operative acute blood loss anemia - Hgb dropped from 13.4 to 9.6. Will give IV iron. - Routine post-operative care per primary team - DVT prophylaxis per primary team once bleeding risk deemed acceptable. (2) Diabetes mellitus, type 2: A1c was 6.5% in 06/2019. - Will hold home oral meds to prevent hypoglycemia - Sliding scale insulin -> Sugars largely acceptable. Will tighten meal-time coverage slightly today, then can leave it alone until discharged. (3) CAD in the [place] artery: Prior [place]. - Continue ASA & beta-felicity per cardiology recs prior to surgery. - Restart ACEi tomorrow. (4) Current smoker: Can offer nicotine patch. (5) Anxiety and depression: - Continue duloxetine (6) DVT prophylaxis: - SCDs and early ambulation. - Presently on ASA 81 mg PO daily for cardiac health; can increase or adjust per primary team. Admission and Anticipated Discharge Date Admission Date: October 19, 2019 Subjective He is doing well overall. No major concerns. Back pain is better today. Already up and walking around. Reports no fevers/chills, chest pain, shortness of breath, abdominal pain, nausea, or vomiting. Physical Exam Constitutional: WD/WN, vitals as above Eyes: EOM intact bilaterally; no conjunctival abnormality ENMT: external ear and nose normal, oropharynx normal Neck: trachea midline, no thyromegaly normal visual inspection Respiratory: normal respiratory effort, lungs clear to auscultation no respiratory distress Cardiovascular: RRR, no murmur, no edema Gastrointestinal (Abdomen): Inspection/Auscultation: abdomen normal to inspection; abdomen not distended Musculoskeletal: no cyanosis or clubbing, extremities motor strength 5/5 Spine: + lumbar spine abnormal to inspection (Drain in place.) Skin: no rashes, warm and dry Neurologic: moves all extremities and awake Psychiatric: Orientation: alert, oriented to person and cooperative Results & Data Results & Data ([facility]) Vital Signs (Past 12 Hours) Vital Signs Temp Pulse Resp BP Pulse Ox 10/20/19 15:08 36.9 C 73 18 158/78 H 93 10/20/19 14:06 95 10/20/19 07:42 36.9 C 86 18 157/88 H 93 PG Care Time/CCT Total # of Minutes Spent Total Time Spent with Patient: Total time spent is greater than 50% in coordination of care (as documented) at patient's floor/unit and/or counseling patient: Coding Level of Care Code 90253 Subseq Hosp Care Lvl 3 Diagnoses Neurogenic claudication due to lumbar spinal stenosis M48.062 Diabetes mellitus, type 2 E11.9 CAD in the [place] artery I25.10 Current smoker F17.200 Anxiety and depression F41.9; F32.9 DVT prophylaxis Z29.9
[2019-10-20] MEDS: IRON SUCROSE 200 MG in 0.9 % SODIUM CHLORIDE 100 ML IV SCH (16:49)
[2019-10-20] MEDS: DOCUSATE SODIUM/SENNA 50/8.6MG TAB PO SCH (20:41)
[2019-10-20] MEDS: INSULIN GLARGINE SOLOSTAR 100 UNITS/ML 3 ML PEN SC SCH (20:47)
[2019-10-21] MEDS: INSULIN ASPART 100 UNITS/ML 3 ML PEN SC SCH ×6 (00:52→21:36)
[2019-10-21] MEDS: OXYCODONE HCL IR 5 MG TAB (IMMEDIATE RELEASE) PO PRN ×4 (02:58→18:15)
[2019-10-21] MEDS: HYDROmorphone INJ 1 MG/ML SYRINGE IV PRN ×4 (05:49→21:31)
[2019-10-21] MEDS: POLYETHYLENE (MIRALAX) 17 GM PACK PO SCH ×3 (05:51→18:14)
[2019-10-21 06:29] LABS: Hematocrit (blood only) 29.1 % (42-52); Hemoglobin 9.4 g/dL (14.0-18.0); Mean Corpuscular Hemoglobin 33.5 pg (25-34); Mean Corpuscular Hgb Conc 32.3 g/dL (32-36); Mean Corpuscular Volume 103.6 fL (80-100); Mean Platelet Volume 11.1 fL (7.4-10.4); Platelet Count 277 K/uL (130-400); RDW Coefficient of Variation 13.8 % (11.5-14.5); RDW Standard Deviation 52.4 fL (36.4-46.3); Red Blood Count 2.81 M/uL (4.7-6.1); White Blood Count 9.94 K/uL (4.8-10.8)
[2019-10-21] MEDS: CHOLECALCIFEROL 1,000 UNITS 25 MCG TAB PO SCH (08:12)
[2019-10-21] MEDS: PANTOprazole 40 MG TAB PO SCH (08:13)
[2019-10-21] MEDS: ASPIRIN 81 MG ECTAB PO SCH (08:13)
[2019-10-21] MEDS: METOPROLOL SUCC 50MG EXT REL TAB PO SCH (08:13)
[2019-10-21] MEDS: lisinopriL 40 MG TAB PO SCH (08:13)
[2019-10-21] MEDS: FENOFIBRATE NANOCRYSTALLIZED 145 MG TABLET PO SCH (08:13)
[2019-10-21] MEDS: DULOXETINE HCL 60 MG CAP PO SCH (08:13)
[2019-10-21] MEDS: DEXAMETHASONE SOD PHOSPHATE 8 MG in SYRINGE 0 ML IV SCH (08:14)
[2019-10-21] MEDS: IRON SUCROSE 200 MG in 0.9 % SODIUM CHLORIDE 100 ML IV SCH (08:15)
--- NOTE | 2019-10-21 08:16 | Orthopedic Progress Note ---
Date of Service October 21, 2019 Assessment & Plan (1) Neurogenic claudication due to lumbar spinal stenosis: This time we will continue physical therapy monitor his MASON output and advance his bowel regiment. Hopefully he will be ready for discharge home in the next few days. Present on Admission?: Yes Admission and Anticipated Discharge Date Admission Date: October 19, 2019 Subjective Patient still complaining of significant back pain. Leg pain has improved. Physical Exam Physical Exam: On exam he has good strength testing. Results & Data ([facility]) Vital Signs (Past 12 Hours) Vital Signs Temp Pulse Resp BP Pulse Ox 10/21/19 08:09 162/87 H 10/21/19 07:30 36.9 C 85 16 190/87 H 97 10/20/19 22:53 36.8 C 76 16 147/77 H 92
[2019-10-21] MEDS: LACTATED RINGER'S 1,000 ML IV SCH (08:23)
[2019-10-21] MEDS: INSULIN GLARGINE SOLOSTAR 100 UNITS/ML 3 ML PEN SC SCH (21:35)
[2019-10-21] MEDS: DOCUSATE SODIUM/SENNA 50/8.6MG TAB PO SCH (21:36)
[2019-10-22] MEDS: POLYETHYLENE (MIRALAX) 17 GM PACK PO SCH ×3 (00:02→12:47)
[2019-10-22] MEDS: OXYCODONE HCL IR 5 MG TAB (IMMEDIATE RELEASE) PO PRN ×3 (00:02→11:33)
[2019-10-22] MEDS: DEXAMETHASONE SOD PHOSPHATE 8 MG in SYRINGE 0 ML IV SCH (09:07)
[2019-10-22] MEDS: PANTOprazole 40 MG TAB PO SCH (09:08)
[2019-10-22] MEDS: DULOXETINE HCL 60 MG CAP PO SCH (09:08)
[2019-10-22] MEDS: ASPIRIN 81 MG ECTAB PO SCH (09:08)
[2019-10-22] MEDS: FENOFIBRATE NANOCRYSTALLIZED 145 MG TABLET PO SCH (09:09)
[2019-10-22] MEDS: CHOLECALCIFEROL 1,000 UNITS 25 MCG TAB PO SCH (09:10)
[2019-10-22] MEDS: lisinopriL 40 MG TAB PO SCH (09:11)
[2019-10-22] MEDS: METOPROLOL SUCC 50MG EXT REL TAB PO SCH (09:12)
[2019-10-22] MEDS: INSULIN ASPART 100 UNITS/ML 3 ML PEN SC SCH ×2 (09:14→12:49)
--- NOTE | 2019-10-22 09:30 | Discharge Summary ---
Date of Service October 22, 2019 Admission HPI Per Admitting Provider This is a 59-year-old male who presents with worsening back and bilateral leg pain left worse than right. He does have a history of previous lumbar surgery. Unfortunately had a marked decline in status over the past several months now with evidence of weakness affecting the lower extremities. On extensive course of nonoperative care without improvement. Principal Diagnosis Lumbar spinal stenosis with neurogenic claudication Discharge Data Allergies Allergy/AdvReac Type Severity Reaction Status Date / Time gemfibrozil Allergy Intermediate BODY ACHES Verified 10/19/19 09:06 Hooxjko-Eah-Rrd Reductase Allergy Intermediate body aches Verified 10/19/19 09:06 Inhibitor latex Allergy Mild Rash Verified 10/19/19 09:06 Penicillins Allergy Mild Rash Verified 10/19/19 09:06 adhesive AdvReac Mild Rash Verified 10/19/19 09:06 Consultations 10/19/19 16:05 Consult Case Management - Discharge Planning Routine Consult Hospitalist Routine Procedures Performed Operation Date: 10/19/19 10:05 Actual Procedures p L2-S1 Decompression Fusion, Interbodies at L4-L5 and L5-S1, Spinal Cord Monitoring(Not Applicable) - Naresh Khalil DO Ordered Studies 10/19/19 10:05 FL fluoroscopy <1hr Routine FL lumbar spine 2-3V Routine Hospital Course (1) Neurogenic claudication due to lumbar spinal stenosis: Patient underwent multilevel lumbar decompression fusion tolerated this well was taken to orthopedic floor possibly. Postop day 1 back pain is controlled leg symptoms improved. Rest the postop day #2 on postop day 3 was ambulating well. Strength intact. MASON drain decreasing probably. Pain well controlled. Subsequently discharged home. Discharge orders and instructions found in the chart for further review. Total Time Total Time Spent Total Time Spent (In Minutes): 20 minutes Discharge Plan Discharge Items Patient Disposition: Home - Self-Care Reason For Visit: Spinal Stenosis, Lumbar Region without Neurogenic Discharge Diagnosis: Lumbar spinal stenosis with neurogenic claudication Activity: As commented below Non-emergency contact: Primary Care Provider Call non-emergency contact if: you have any medication questions Follow-up/Referrals: Eb Lam MD [Primary Care Provider] - Diet: Regular Addtl Attending Provider Instructions: ACTIVITY RECOMMENDATIONS: SELF CARE INSTRUCTIONS AFTER THORACIC/LUMBAR FUSIONS 1. You may walk to your tolerance. It is good exercise for your legs and back. Expect some back and intermittent leg aches and pains. 2. You may perform "counter-top" level activities (make a sandwich, leah with a project, etc.). 3. No bending or lifting of more than 10 pounds or back twisting of any nature (roll like a log when turning in bed). 4. You may ride in a car for 20-30 minutes at a time. No driving until after your first visit with your doctor. 5. Frequent changes of position and restricting sitting to 30 minutes at a time will help limit the amount of back spasms and stiffness you may experience. 6. You may discontinue the use of ambulatory aids (cane, crutches, etc.) once your strength and confidence allow. 7. You may networking administrator the shower and let water strike your incision when you arrive home at least once daily. Do not take a tub bath, sit in a hot tub or go into a swimming pool until after your first recheck in the office. SPECIAL CARE INSTRUCTIONS: VERY IMPORTANT TO READ AND REVIEW A. Your surgical incision has been closed with a cosmetic suture under the skin that will dissolve in about 6 weeks. In 14 days, you can use a pair of clean scissors and cut the suture that is left outside of the skin at the ends of your incision. 1. The small skin tapes can be removed 7 days after surgery if they have not fallen off by that point. 2. You may keep the wound open to air as much as possible to promote healing after post-op day number 5 unless told otherwise by your doctor. 3. If you think the wound looks like it is becoming infected (redness or worsening drainage) and/or you are experiencing fever, chill or worsening back pain and muscle spasms, contact the office so that we may evaluate you as soon as possible. B. Complications are uncommon, but please contact us if you have any signs or symptoms of: 1. wound infection (fever higher than 102.5 degrees F, redness, separation of wound, drainage, or increasing pain from the incision) 2. blood clots in legs (pain, swelling, redness and warmth in legs) 3. urinary tract infection (fever higher than 102.5 degrees F, burning upon urination or increased frequency of urination) 4. nerve problems (inability to walk on your toes or heels, numbness, loss of bowel or bladder control) 5. any other symptoms that concern you C. Please call the office at if you have any concerns or questions about your operation or recovery. D. No smoking! Smoking drastically decreases the chance of a solid fusion. E. Do not take any anti-inflammatory medications (Indocin, Advil, Motrin, Aspirin, Naprosyn, etc.) as these may inhibit the chance of a solid fusion. Tylenol is okay to take for pain. MANAGING PAIN AFTER SPINAL SURGERY 1. Narcotic medication is intended for short-term use and will be provided for surgical pain. Surgical pain usually lasts for a period of 4-6 weeks. Narcotic medication includes Percocet, Vicodin, Darvocet, Tylenol #3 or Lortab. 2. Longer-term pain is more appropriately treated with non-narcotic medication such as Tylenol ES. 3. Muscle spasm is not appropriately treated with narcotics. Muscle relaxers such as Soma, Flexeril or Skelaxin can be used along with Tylenol ES. 4. Remember that we all live with some "aches and pains". This is not unusual or uncommon after an injury or as we get older. a. Back pain is expected and may include muscle spasms for 4 to 6 weeks after surgery. The pain should gradually improve. If the pain worsens for no apparent reason, please contact the office. b. Intermittent leg pain may also be experienced and should not be concerned about unless it worsens for no apparent reason. If so, please contact the office. 5. We will provide appropriate medication within the normal guidelines of their prescribed use. We will also be very cautious and aware of potential abuse and extended duration of patients' medication needs. a. Pain medications are for your comfort and to assist with sleep and rest so that the tissue can heal. They are not provided in order to return to normal activity and should not be used through the day. To do so or worsening pain at night can result from ongoing tissue damage and development of tolerance to the prescribed medicine. 6. Please allow 2-3 days to process refills. Prescriptions will not be mailed but must be picked up at the office. FOLLOW UP VISIT: Keep your scheduled follow-up appointment. Any questions, please call the office at . Pending Studies at Discharge: No Stand-Alone Forms: My [facility], Smoking Cessation Medications and DC Order Prescriptions: New oxycodone 5 mg tablet 5 mg PO Q6H PRN (Reason: pain, severe) Qty: 30 RF: 0 tramadol 50 mg tablet 50 mg PO Q6H PRN (Reason: pain, moderate) Qty: 30 RF: 0 Continued duloxetine 60 mg capsule,delayed release(DR/EC) 60 mg PO QAM Qty: 90 RF: 3 glimepiride 1 mg tablet 1 mg PO QAM Qty: 90 RF: 3 omeprazole 40 mg capsule,delayed release(DR/EC) 40 mg PO QAM Qty: 90 RF: 3 Repatha SureClick 140 mg/mL pen injector 140 mg SQ .COMPLEX 90 Days Qty: 2 RF: 5 metformin 500 mg tablet 1,000 mg PO QAM RF: 0 metoprolol succinate 50 mg tablet extended release 24 hr 50 mg PO QAM RF: 0 lisinopril 40 mg tablet 40 mg PO QAM RF: 0 cholecalciferol (vitamin D3) [Vitamin D3] 5,000 unit Tablet 5,000 unit PO QAM RF: 0 coQ10 (ubiquinol) 200 mg Capsule 200 mg PO QAM RF: 0 fenofibrate 160 mg tablet 160 mg PO QAM RF: 0 aspirin 81 mg Tablet,Delayed Release (Dr/Ec) 81 mg PO QAM RF: 0 tramadol 50 mg tablet 150 mg PO BID RF: 0 Discharge Orders: Discharge Order (Routine); Ordered 10/22/19 Ordered By: Naresh Bolivar/Other Patient Handouts: Diabetes and Drinking Alcohol, Diabetes Electrode Cleaner Complications, Diabetes Resources, Blood Sugar Check, Diabetes Healthy Meals, Diabetes Eating Out, Diabetes Keep Feet Healthy, Diabetes Inspect Feet, Diabetes Body Care, Diabetes Activity Tips, Diabetes Manage A1C Test, Diabetes Exercise Plan, Diabetes and High Blood Pressure Admission Data Admit Date/Time: 10/19/19 14:41 Attending Provider: Naresh Khalil Admit Provider: Naresh Khalil Primary Care Provider: Eb Lam Other Providers: Travis Fermin
[2019-10-22] MEDS: IRON SUCROSE 200 MG in 0.9 % SODIUM CHLORIDE 100 ML IV SCH (09:53)
[2019-10-22] MEDS: LACTATED RINGER'S 1,000 ML IV SCH (10:21)
== END 2019-10-22 13:52 | disposition home or self-care (01) | DRG 455 ==
LOC: ASU 08:39 → 3E 14:41

== ENCOUNTER 2021-02-16 21:34 | Inpatient (IN) ==
[2021-02-16] MEDS ORDERED: SODIUM CHLORIDE 0.9% 1000ML 1,000 ML IV SCH (22:15)
[2021-02-16 22:35] LABS: iSTAT Creatinine 1.1 mg/dl (0.6-1.3); iSTAT Hemoglobin 12.6 g/dl (14.0-18.0); iSTAT Ionized Calcium 1.28 mmol/l (1.12-1.32)
[2021-02-16] MEDS ORDERED: STAT IV Infusion **Titration per Protocol STA (22:43)
[2021-02-16] MEDS ORDERED: dilTIAZem HCl 5 MG/ML 5 ML VIAL IV STA ×2 (22:43→22:51)
[2021-02-16 22:45] LABS: Basophils # (auto) 0.02 K/uL (0-0.2); Basophils % (auto) 0.2 %; Eosinophils # (auto) 0.01 K/uL (0-0.5); Eosinophils % (auto) 0.1 %; Hematocrit (blood only) 34.6 % (42-52); Hemoglobin 11.4 g/dL (14.0-18.0); Immature Granulocytes # (auto) 0.18 K/uL (0.00-0.02); Immature Granulocytes % (auto) 2.1 %; Lymphocytes # (auto) 1.42 K/uL (1.2-3.4); Lymphocytes % (auto) 16.2 %; Mean Corpuscular Hemoglobin 35.4 pg (25-34); Mean Corpuscular Hgb Conc 32.9 g/dL (32-36); Mean Corpuscular Volume 107.5 fL (80-100); Mean Platelet Volume 11.1 fL (7.4-10.4); Monocytes # (auto) 0.74 K/uL (0.11-0.59); Monocytes % (auto) 8.4 %; Neutrophils # (auto) 6.41 K/uL (1.4-6.5); Platelet Count 366 K/uL (130-400); RDW Coefficient of Variation 14.2 % (11.5-14.5); RDW Standard Deviation 56.6 fL (36.4-46.3); Red Blood Count 3.22 M/uL (4.7-6.1); White Blood Count 8.78 K/uL (4.8-10.8)
[2021-02-16] MEDS ORDERED: dilTIAZem HCL 125 MG in DEXTROSE 5% 100 ML IV SCH (22:45)
[2021-02-16] MEDS ORDERED: LORazepam 1 MG/2 ML VIAL IV STA (22:52)
[2021-02-16 22:55] LABS: Partial Thromboplastin Time 26.7 Seconds (21.0-31.0)
[2021-02-16 22:55] LABS: Appearance Urine Clear (Clear); Bilirubin Urine Negative (Negative); Blood Urine Negative (Negative); Color Urine Yellow; Glucose Urine UA 1+ (Negative); Ketones Urine Negative (Negative); Leukocyte Esterase Urine Negative (Negative); Nitrite Urine Negative (Negative); Protein Urine Negative (Negative); Specific Gravity Urine 1.006 (1.000-1.030); Urobilinogen Urine Negative (Negative)
[2021-02-16 23:00] LABS: Alanine Aminotransferase 21 U/L (12-78); Albumin Level 3.5 gm/dl (3.4-5.0); Aspartate Aminotransferase 14 U/L (15-37); BUN Creatinine Ratio 16.1 (10-20); Blood Urea Nitrogen 19 mg/dl (7-18); Calcium 8.9 mg/dl (8.5-10.1); Carbon Dioxide 20 mmol/L (21-32); Chloride 101 mmol/L (98-107); Creatinine Clr Calc Pharmacy 83.8 ml/min; Est GFR (African American) 77.8 ml/min; Est GFR (Non-African American) 67.1 ml/min; Glucose 187 mg/dl (70-99); Lipase 155 U/L (73-393); Magnesium 1.6 mg/dl (1.8-2.4); Potassium 3.8 mmol/L (3.5-5.1); Sodium 131 mmol/L (136-145)
[2021-02-16 23:05] LABS: Alkaline Phosphatase 50 U/L (45-117); Bilirubin,Total < 0.1 mg/dl (0.2-1); Globulin 3.6 gm/dl (2.5-4.0); Total Protein 7.1 gm/dl (6.4-8.2); Troponin I < 0.015 ng/ml (0-0.045)
--- NOTE | 2021-02-16 23:30 | XRay Report ---
SINGLE VIEW CHEST CLINICAL HISTORY: Sepsis. FINDINGS: 2 AP, portable, semierect chest radiographs are compared to study dated 10/01/2019. The exami nation is degraded by portable technique and patient rotation. The heart is enlarged noting atheros clerotic calcification of the thoracic aorta. The pulmonary vasculature is noncongested. The lungs an d pleural spaces are clear. No pneumothorax is seen. The skeletal structures are osteopenic. The bony thorax is grossly intact. Fusion hardware is noted in the lower cervical spine. IMPRESSION: Cardiomegaly with no active disease in the chest. ACT 112: Negative or not required by law. Electronically signed by: Kevon Hwang M.D. 02/16/2021 11:29 PM
[2021-02-16 23:48] LABS: Amphetamines+Metham, Urine Neg (Neg); Barbiturates, Urine Neg (Neg); Benzodiazepine, Urine Neg (Neg); Cocaine, Urine Neg (Neg); MDMA (Ecstacy), Urine Neg (Neg); Methadone, Urine Neg (Neg); Opiate, Urine Neg (Neg); Phencyclidine, Urine Neg (Neg)
[2021-02-16] MEDS ORDERED: OPTIRAY 320 125ml IV ONE (23:59)
--- NOTE | 2021-02-17 00:03 | Emergency Department Note ---
History of Present Illness General Chief Complaint: Cardiac Assessment Stated Complaint: SEVERE HEART BURN PAIN IN LOWER JAW/LOW B/P Time Seen by Provider: 02/16/21 22:01 History of Present Illness Provider Complaint: chest pain Onset (ago): hour(s) 1 Duration: constant Onset: during rest Pain Location: substernal Pain Radiation: abdomen Severity: moderate Maximum Pain Intensity: 7 Current Pain Intensity: 7 Quality: + sharp Relieved By: + nothing Exacerbated By: + nothing Context: no recent illness, no recent surgery, no recent immobilization, no recent travel, no trauma/injury, no new medications or no history of DVT/PE Associated symptoms: + nausea and + diaphoresis; no vomiting, no dyspnea, no sense of impending doom, no syncope, no palpitations, no fever, no cough or no leg swelling Patient drinks 7-8 beers/day. Last beer at 1700. polyuria. Home Medications Medication Instructions Recorded Confirmed Type coQ10 (ubiquinol) 200 mg capsule 200 mg PO QAM 03/16/19 02/17/21 History aspirin 81 mg tablet,delayed 81 mg PO QAM 10/13/19 02/17/21 History release metformin 500 mg tablet,extended 2,000 mg PO QAM #360 tab 05/01/20 02/17/21 Rx release 24 hr glimepiride 1 mg tablet 1 mg PO QAM #90 tab 07/03/20 02/17/21 Rx fenofibrate 160 mg tablet 160 mg PO QAM #90 tab 08/01/20 02/17/21 Rx lisinopril 40 mg tablet 40 mg PO QAM #90 tab 11/02/20 02/17/21 Rx acetaminophen 650 mg 1,300 mg PO UD PRN 12/06/20 02/17/21 History tablet,extended release hydrochlorothiazide 12.5 mg capsule 12.5 mg PO QAM 12/06/20 02/17/21 History omeprazole 40 mg capsule,delayed 40 mg PO UD #30 cap 12/13/20 02/17/21 Rx release tadalafil 10 mg tablet 5 mg PO QAM #45 tab 01/08/21 02/17/21 Rx metoprolol succinate 50 mg 50 mg PO QAM #90 tab 01/17/21 02/17/21 Rx tablet,extended release 24 hr duloxetine 60 mg capsule,delayed 60 mg PO QAM #90 cap 01/24/21 02/17/21 Rx release alirocumab 150 mg/mL subcutaneous 150 mg SUBCUT Q14D #2 ml 02/07/21 02/17/21 Rx pen injector (Praluent Pen) tramadol 50 mg tablet 100 mg PO BID #120 tab 02/14/21 02/17/21 Rx clotrimazole-betamethasone 1 See Rx Instructions TOPICAL BID PRN 02/17/21 02/17/21 History %-0.05 % topical cream Allergies Allergy/AdvReac Type Severity Reaction Status Date / Time latex Allergy Unknown Rash Verified 02/17/21 01:11 Penicillins Allergy Unknown Rash Verified 02/17/21 01:11 Tedcukh-Ivs-Psj Reductase AdvReac Intermediate body aches Verified 02/17/21 01:11 Inhibitor adhesive AdvReac Unknown Rash Verified 02/17/21 01:11 gemfibrozil AdvReac Unknown BODY ACHES Verified 02/17/21 01:11 NSAIDS (Non-Steroidal AdvReac Unknown TOLD NOT Verified 02/17/21 01:11 Anti-Inflamma TO TAKE - HX STOMACH ULCER Past Med/Surg History Medical History Degenerative disc disease Diabetes mellitus, type 2 GERD (gastroesophageal reflux disease) History of anesthesia reaction WITH BACK SURGERY 2004 - DISORIENTED, PULLED CATHETER OUT ([facility]) History of gastric ulcer Hyperlipidemia Hypertension Low iron Myocardial infarction 2009 - 2 stents/follows with [facility] cardiology Osteoarthritis Sleep apnea "MODERATE-MILD" no device Surgical History Fusion of spine CERVICAL, "HAVE 80% OF MOTION" History of colonoscopy History of esophagogastroduodenoscopy (EGD) History of heart artery stent 2009>2 STENTS AT [facility] (FOLLOWED BY DR. NASCIMENTO) History of lumbar surgery X 3 - 2004, 2006, 2019 History of nasal septoplasty History of total knee replacement RT/LEFT (LEFT REVISION) Hx of transurethral resection of prostate Family History Mother Family history of diabetes mellitus Father Family history of diabetes mellitus Denies family history of Ovarian cancer Prostate cancer Myocardial infarction Breast cancer Colorectal cancer Social History Smoking Status: Current every day smoker Tobacco Type: Cigarettes Age Started Using Tobacco: 18; Cigarettes Per Day: 6 PER DAY/ADVISED NPO; Second Hand Exposure: Yes; Hx Alcohol Use: Yes Alcohol type: beer Hx Substance Use: No Preferred Language: Belarusian Communication Ability: Effective Visual Impairment: No Limitations Eap Clinician Required: No Beliefs That Will Affect Care: None marital status: Current Living Situation: Spouse Feels Safe at Home: Yes Childhood Exposure to Second-Hand Smoke: Yes Dental Care, Regularly: Yes Physical Activity Frequency: Does not Exercise Seatbelt Use: always Sunscreen Use: No Assistive Devices: Glasses and Walker Review of Systems A total of 10 systems reviewed and were otherwise negative Physical Exam Vital Signs Vital Signs - 24 hr 02/16/21 21:35 02/16/21 21:45 02/16/21 22:48 Temperature 36.3 C L Temperature Source Temporal Artery Scan Pulse Rate 155 H Pulse Rate [Apical] Pulse Rate from SpO2 Sensor Respiratory Rate 18 Respiratory Effort / Characteristics Non-Labored Spontaneous Respiratory Depth Normal Respiratory Pattern Blood Pressure 92/49 L Blood Pressure [Left Arm] Blood Pressure Mean 63 Blood Pressure Mean [Left Arm] Pulse Oximetry 93 96 95 Oxygen Delivery Method Room Air Room Air Room Air Sepsis New/Unexplained Change in Mental Status N/A Sepsis Action Taken by Nursing No Action Required 02/16/21 22:50 02/16/21 23:00 02/16/21 23:10 Temperature Temperature Source Pulse Rate 140 H 144 H 130 H Pulse Rate [Apical] Pulse Rate from SpO2 Sensor Respiratory Rate 20 22 26 H Respiratory Effort / Characteristics Respiratory Depth Respiratory Pattern Blood Pressure 115/66 118/72 112/65 Blood Pressure [Left Arm] Blood Pressure Mean 82 87 80 Blood Pressure Mean [Left Arm] Pulse Oximetry 94 95 94 Oxygen Delivery Method Sepsis New/Unexplained Change in Mental Status Sepsis Action Taken by Nursing 02/16/21 23:21 02/16/21 23:58 02/17/21 00:02 Temperature Temperature Source Pulse Rate 135 H 124 H 144 H Pulse Rate [Apical] 135 H Pulse Rate from SpO2 Sensor 131 H 130 H Respiratory Rate 20 18 22 Respiratory Effort / Characteristics Non-Labored Spontaneous Respiratory Depth Normal Respiratory Pattern Regular Blood Pressure 123/65 Blood Pressure [Left Arm] 136/88 Blood Pressure Mean 84 Blood Pressure Mean [Left Arm] 104 Pulse Oximetry 94 95 95 Oxygen Delivery Method Room Air Sepsis New/Unexplained Change in Mental Status Sepsis Action Taken by Nursing 02/17/21 00:32 02/17/21 01:00 Temperature Temperature Source Pulse Rate 154 H 103 H Pulse Rate [Apical] Pulse Rate from SpO2 Sensor 108 H Respiratory Rate 24 22 Respiratory Effort / Characteristics Respiratory Depth Respiratory Pattern Blood Pressure 111/78 Blood Pressure [Left Arm] Blood Pressure Mean 89 Blood Pressure Mean [Left Arm] Pulse Oximetry 96 Oxygen Delivery Method Sepsis New/Unexplained Change in Mental Status Sepsis Action Taken by Nursing Physical Exam HENT: Exam performed. - Head: Normocephalic and atraumatic. - Right Ear: External ear normal. No mastoid tenderness. - Left Ear: External ear normal. No mastoid tenderness. - Mouth/Throat: The oropharynx is clear and moist. No trismus in the jaw. No dental abscesses or uvula swelling. No oropharyngeal exudate or tonsillar abs cesses. EYES: Conjunctivae and EOM are normal. Pupils are equal, round, and reactive to light. Right eye exhibits no discharge. Left eye exhibits no discharge. No scleral icterus. NECK: Normal range of motion. Neck supple. No JVD present. No spinous process tenderness present. No carotid bruit present. No rigidity. No tracheal deviation and normal range of motion present. No Brudzinski's sign and no Kernig's sign noted. CV: Tachycardic rate, irregular rhythm, normal heart sounds and intact distal pulses. There is no peripheral edema. Palpable radial pulses bue. PULM/CHEST: Effort normal and breath sounds normal. No respiratory distress. No stridor. He has no wheezes. He has no rales. - Chest Wall: He exhibits no tenderness. ABD: The abdomen is soft. Abdomen distended. Pain on palpation the epigastric area. MUSC/SKEL: Normal range of motion. There is no peripheral edema, tenderness or deformity. LYMPH: No cervical adenopathy. NEURO: He is alert and oriented to person, place, and time. He has normal strength. No cranial nerve deficit or sensory deficit. Coordination and gait no rmal. GCS eye subscore is 4. GCS verbal subscore is 5. GCS motor subscore is 6. Cerebellar tests wnl. SKIN: Diaphoretic. PSYCH: He has a normal mood and affect. Behavior is normal. Judgment and thought content normal. Course Course 2200: The patient was evaluated in room C10. A complete history and physical exam was performed Cardiac monitoring: An order was placed for continuous cardiac monitoring. The monitor shows a rate of atrial flutter with 150 rhythm Large-bore IV access was obtained and IV fluids were started. On recheck of blood pressure in his room his blood pressure was stable in both upper extremities. Cardizem boluses ordered to help the patient's ventricular rate. Patient be started on Cardizem drip. CTA of the chest and abdomen ordered to rule out dissection. Ativan also ordered for the patient. 0011: Vital signs improved on Cardizem drip after 2 L IV fluid and 1 mg Ativan.. Ventricular rate stable. Labs show magnesium 1.6. Magnesium replacement started in the emergency department. Lactic acid 2.3. Urine drug screen negative. Troponin and procalcitonin negative. Serum alcohol level 46.2. Is thought that the patient could be going through alcohol withdrawal leading to his tachycardia. Awaiting CT results. We will continue to monitor the patient. We will plan on admitting the patient. 0024: Vital signs stable on Cardizem drip. CTA of the chest and abdomen is negative for dissection. Patient will be [facility] team for atrial flutter with RVR and most likely alcohol withdrawal. Dr. Urena will be notified. Administered Medications Diltiazem HCl 125 mg/ Dextrose 125 mls @ 5 mls/hr IV .Q24H [facility]; Protocol Stop: 03/18/21 22:44 Last Titration: 02/16/21 23:59 Dose: 7.5 mg/hr, 7.5 mls/hr Documented by: [id number] Cosigned by: [id number] Admin: 02/16/21 23:08 Dose: 5 mg/hr, 5 mls/hr Documented by: [id number] Cosigned by: [id number] Discontinued Medications Diltiazem HCl (Diltiazem Hcl 5 Mg/Ml 5 Ml Vial) 20 mg IV NOW STA Stop: 02/16/21 22:44 Last Admin: 02/16/21 22:47 Dose: 20 mg Documented by: [id number] Cosigned by: [id number] Diltiazem HCl (Diltiazem Hcl 5 Mg/Ml 5 Ml Vial) 25 mg IV NOW STA Stop: 02/16/21 22:52 Last Admin: 02/16/21 22:57 Dose: 25 mg Documented by: [id number] Cosigned by: [id number] Sodium Chloride (Nss 1000ml) 1,000 mls @ 999 mls/hr IV .Q1H1M [facility] Stop: 02/16/21 23:15 Last Infusion: 02/16/21 23:51 Dose: 0 mls/hr Documented by: [id number] Admin: 02/16/21 22:48 Dose: 999 mls/hr Documented by: [id number] Lorazepam (Ativan) 1 mg in 2 mls @ 2 mls/min IV NOW STA Stop: 02/16/21 22:53 Last Admin: 02/16/21 22:57 Dose: 2 mls/min Documented by: [id number] Magnesium Sulfate/Dextrose (Magnesium Sulfate / D5w) 1 gm in 100 mls @ 100 mls/hr IV Q1H [facility] Stop: 02/17/21 01:02 Last Admin: 02/17/21 00:05 Dose: 100 mls/hr Documented by: [id number] Ioversol (Optiray 320 125ml) 120 ml IV ONCE ONE Stop: 02/17/21 00:00 Last Admin: 02/16/21 23:59 Dose: 120 ml Documented by: [id number] Medical Decision Making Laboratory Data Result diagrams: 02/16/21 22:14 02/16/21 22:14 Labs: Lab Results 02/16/21 02/16/21 02/16/21 Range/Units 22:14 22:14 22:14 WBC 8.78 (4.8-10.8) K/uL RBC 3.22 L (4.7-6.1) M/uL Hgb 11.4 L (14.0-18.0) g/dL POC Hgb (14.0-18.0) g/dl Hct 34.6 L (42-52) % POC Hct (42-52) % MCV 107.5 H (80-100) fL MCH 35.4 H (25-34) pg MCHC 32.9 (32-36) g/dL RDW Std Deviation 56.6 H (36.4-46.3) fL RDW Coeff of Kvng 14.2 (11.5-14.5) % Plt Count 366 (130-400) K/uL MPV 11.1 H (7.4-10.4) fL Immature Gran % (Auto) 2.1 % Neut % (Auto) 73.0 % Lymph % (Auto) 16.2 % [place] % (Auto) 8.4 % Eos % (Auto) 0.1 % Baso % (Auto) 0.2 % Neut # (Auto) 6.41 (1.4-6.5) K/uL Lymph # (Auto) 1.42 (1.2-3.4) K/uL [place] # (Auto) 0.74 H (0.11-0.59) K/uL Eos # (Auto) 0.01 (0-0.5) K/uL Baso # (Auto) 0.02 (0-0.2) K/uL Immature Gran # (Auto) 0.18 H (0.00-0.02) K/uL PT (9.0-12.0) Seconds INR (0.9-1.1) APTT (21.0-31.0) Seconds PTT Ratio POC Sodium (135-144) mmol/L Sodium 131 L (136-145) mmol/L POC Potassium (3.3-5.0) mmol/L Potassium 3.8 (3.5-5.1) mmol/L POC Chloride (101-112) mmol/L Chloride 101 (98-107) mmol/L Carbon Dioxide 20 L (21-32) mmol/L POC Total CO2 (24-31) mmol/L Anion Gap 9.0 (3-11) POC Anion Gap (16-25) mmol/L POC BUN (7-18) mg/dl BUN 19 H (7-18) mg/dl Creatinine 1.16 (0.6-1.4) mg/dl POC Creatinine (0.6-1.3) mg/dl Est Cr Clr Drug Dosing 83.8 ml/min Est GFR ( Amer) 77.8 ml/min Est GFR (Non-Af Amer) 67.1 ml/min BUN/Creatinine Ratio 16.1 (10-20) Glucose 187 H (70-99) mg/dl POC Glucose (other) (70-99) mg/dl Lactate (0.4-2.0) mmol/L Calcium 8.9 (8.5-10.1) mg/dl POC Ioniz Calcium Sky (1.12-1.32) mmol/l Magnesium 1.6 L (1.8-2.4) mg/dl Total Bilirubin < 0.1 L (0.2-1) mg/dl AST 14 L (15-37) U/L ALT 21 (12-78) U/L Alkaline Phosphatase 50 (45-117) U/L Troponin I < 0.015 (0-0.045) ng/ml Total Protein 7.1 (6.4-8.2) gm/dl Albumin 3.5 (3.4-5.0) gm/dl Globulin 3.6 (2.5-4.0) gm/dl Albumin/Globulin Ratio 1.0 (0.9-2) Lipase 155 (73-393) U/L Procalcitonin < 0.05 (0-0.5) ng/ml Urine Color Urine Appearance (Clear) Urine pH (4.5-7.5) Ur Specific [place] (1.000-1.030) Urine Protein (Negative) Urine Glucose (UA) (Negative) Urine Ketones (Negative) Urine Blood (Negative) Urine Nitrite (Negative) Urine Bilirubin (Negative) Urine Urobilinogen (Negative) Ur Leukocyte Esterase (Negative) Urine Opiates Screen (Neg) Ur Methadone, Qual (Neg) Urine Barbiturates (Neg) Ur Phencyclidine (PCP) (Neg) U Amphetamin/Meth Scrn (Neg) MDMA (Ecstasy) Screen (Neg) U Benzodiazepines Scrn (Neg) Ur Cocaine Metabolite (Neg) U Marijuana (THC) Screen (Neg) Ethyl Alcohol mg/dL (0-3) mg/dl COVID-19 Eval Order SARS-CoV-2 (PCR) (Negative) 02/16/21 02/16/21 02/16/21 Range/Units 22:14 22:14 22:14 WBC (4.8-10.8) K/uL RBC (4.7-6.1) M/uL Hgb (14.0-18.0) g/dL POC Hgb (14.0-18.0) g/dl Hct (42-52) % POC Hct (42-52) % MCV (80-100) fL MCH (25-34) pg MCHC (32-36) g/dL RDW Std Deviation (36.4-46.3) fL RDW Coeff of Kvng (11.5-14.5) % Plt Count (130-400) K/uL MPV (7.4-10.4) fL Immature Gran % (Auto) % Neut % (Auto) % Lymph % (Auto) % [place] % (Auto) % Eos % (Auto) % Baso % (Auto) % Neut # (Auto) (1.4-6.5) K/uL Lymph # (Auto) (1.2-3.4) K/uL [place] # (Auto) (0.11-0.59) K/uL Eos # (Auto) (0-0.5) K/uL Baso # (Auto) (0-0.2) K/uL Immature Gran # (Auto) (0.00-0.02) K/uL PT 10.0 (9.0-12.0) Seconds INR 1.0 (0.9-1.1) APTT 26.7 (21.0-31.0) Seconds PTT Ratio 1.0 POC Sodium (135-144) mmol/L Sodium (136-145) mmol/L POC Potassium (3.3-5.0) mmol/L Potassium (3.5-5.1) mmol/L POC Chloride (101-112) mmol/L Chloride (98-107) mmol/L Carbon Dioxide (21-32) mmol/L POC Total CO2 (24-31) mmol/L Anion Gap (3-11) POC Anion Gap (16-25) mmol/L POC BUN (7-18) mg/dl BUN (7-18) mg/dl Creatinine (0.6-1.4) mg/dl POC Creatinine (0.6-1.3) mg/dl Est Cr Clr Drug Dosing ml/min Est GFR ( Amer) ml/min Est GFR (Non-Af Amer) ml/min BUN/Creatinine Ratio (10-20) Glucose (70-99) mg/dl POC Glucose (other) (70-99) mg/dl Lactate 2.3 H* (0.4-2.0) mmol/L Calcium (8.5-10.1) mg/dl POC Ioniz Calcium Sky (1.12-1.32) mmol/l Magnesium (1.8-2.4) mg/dl Total Bilirubin (0.2-1) mg/dl AST (15-37) U/L ALT (12-78) U/L Alkaline Phosphatase (45-117) U/L Troponin I (0-0.045) ng/ml Total Protein (6.4-8.2) gm/dl Albumin (3.4-5.0) gm/dl Globulin (2.5-4.0) gm/dl Albumin/Globulin Ratio (0.9-2) Lipase (73-393) U/L Procalcitonin (0-0.5) ng/ml Urine Color Urine Appearance (Clear) Urine pH (4.5-7.5) Ur Specific [place] (1.000-1.030) Urine Protein (Negative) Urine Glucose (UA) (Negative) Urine Ketones (Negative) Urine Blood (Negative) Urine Nitrite (Negative) Urine Bilirubin (Negative) Urine Urobilinogen (Negative) Ur Leukocyte Esterase (Negative) Urine Opiates Screen (Neg) Ur Methadone, Qual (Neg) Urine Barbiturates (Neg) Ur Phencyclidine (PCP) (Neg) U Amphetamin/Meth Scrn (Neg) MDMA (Ecstasy) Screen (Neg) U Benzodiazepines Scrn (Neg) Ur Cocaine Metabolite (Neg) U Marijuana (THC) Screen (Neg) Ethyl Alcohol mg/dL 46.2 H (0-3) mg/dl COVID-19 Eval Order SARS-CoV-2 (PCR) (Negative) 02/16/21 02/16/21 02/16/21 Range/Units 22:20 22:46 22:46 WBC (4.8-10.8) K/uL RBC (4.7-6.1) M/uL Hgb (14.0-18.0) g/dL POC Hgb 12.6 L (14.0-18.0) g/dl Hct (42-52) % POC Hct 37 L (42-52) % MCV (80-100) fL MCH (25-34) pg MCHC (32-36) g/dL RDW Std Deviation (36.4-46.3) fL RDW Coeff of Kvng (11.5-14.5) % Plt Count (130-400) K/uL MPV (7.4-10.4) fL Immature Gran % (Auto) % Neut % (Auto) % Lymph % (Auto) % [place] % (Auto) % Eos % (Auto) % Baso % (Auto) % Neut # (Auto) (1.4-6.5) K/uL Lymph # (Auto) (1.2-3.4) K/uL [place] # (Auto) (0.11-0.59) K/uL Eos # (Auto) (0-0.5) K/uL Baso # (Auto) (0-0.2) K/uL Immature Gran # (Auto) (0.00-0.02) K/uL PT (9.0-12.0) Seconds INR (0.9-1.1) APTT (21.0-31.0) Seconds PTT Ratio POC Sodium 131 L (135-144) mmol/L Sodium (136-145) mmol/L POC Potassium 4.0 (3.3-5.0) mmol/L Potassium (3.5-5.1) mmol/L POC Chloride 98 L (101-112) mmol/L Chloride (98-107) mmol/L Carbon Dioxide (21-32) mmol/L POC Total CO2 18 L (24-31) mmol/L Anion Gap (3-11) POC Anion Gap 20.0 (16-25) mmol/L POC BUN 20 H (7-18) mg/dl BUN (7-18) mg/dl Creatinine (0.6-1.4) mg/dl POC Creatinine 1.1 (0.6-1.3) mg/dl Est Cr Clr Drug Dosing ml/min Est GFR ( Amer) ml/min Est GFR (Non-Af Amer) ml/min BUN/Creatinine Ratio (10-20) Glucose (70-99) mg/dl POC Glucose (other) 192 H (70-99) mg/dl Lactate (0.4-2.0) mmol/L Calcium (8.5-10.1) mg/dl POC Ioniz Calcium Sky 1.28 (1.12-1.32) mmol/l Magnesium (1.8-2.4) mg/dl Total Bilirubin (0.2-1) mg/dl AST (15-37) U/L ALT (12-78) U/L Alkaline Phosphatase (45-117) U/L Troponin I (0-0.045) ng/ml Total Protein (6.4-8.2) gm/dl Albumin (3.4-5.0) gm/dl Globulin (2.5-4.0) gm/dl Albumin/Globulin Ratio (0.9-2) Lipase (73-393) U/L Procalcitonin (0-0.5) ng/ml Urine Color Urine Appearance (Clear) Urine pH (4.5-7.5) Ur Specific [place] (1.000-1.030) Urine Protein (Negative) Urine Glucose (UA) (Negative) Urine Ketones (Negative) Urine Blood (Negative) Urine Nitrite (Negative) Urine Bilirubin (Negative) Urine Urobilinogen (Negative) Ur Leukocyte Esterase (Negative) Urine Opiates Screen (Neg) Ur Methadone, Qual (Neg) Urine Barbiturates (Neg) Ur Phencyclidine (PCP) (Neg) U Amphetamin/Meth Scrn (Neg) MDMA (Ecstasy) Screen (Neg) U Benzodiazepines Scrn (Neg) Ur Cocaine Metabolite (Neg) U Marijuana (THC) Screen (Neg) Ethyl Alcohol mg/dL (0-3) mg/dl COVID-19 Eval Order Covid19 at [facility] SARS-CoV-2 (PCR) NEGATIVE (Negative) 02/16/21 02/16/21 02/17/21 Range/Units Unknown Unknown 00:36 WBC (4.8-10.8) K/uL RBC (4.7-6.1) M/uL Hgb (14.0-18.0) g/dL POC Hgb (14.0-18.0) g/dl Hct (42-52) % POC Hct (42-52) % MCV (80-100) fL MCH (25-34) pg MCHC (32-36) g/dL RDW Std Deviation (36.4-46.3) fL RDW Coeff of Kvng (11.5-14.5) % Plt Count (130-400) K/uL MPV (7.4-10.4) fL Immature Gran % (Auto) % Neut % (Auto) % Lymph % (Auto) % [place] % (Auto) % Eos % (Auto) % Baso % (Auto) % Neut # (Auto) (1.4-6.5) K/uL Lymph # (Auto) (1.2-3.4) K/uL [place] # (Auto) (0.11-0.59) K/uL Eos # (Auto) (0-0.5) K/uL Baso # (Auto) (0-0.2) K/uL Immature Gran # (Auto) (0.00-0.02) K/uL PT (9.0-12.0) Seconds INR (0.9-1.1) APTT (21.0-31.0) Seconds PTT Ratio POC Sodium (135-144) mmol/L Sodium (136-145) mmol/L POC Potassium (3.3-5.0) mmol/L Potassium (3.5-5.1) mmol/L POC Chloride (101-112) mmol/L Chloride (98-107) mmol/L Carbon Dioxide (21-32) mmol/L POC Total CO2 (24-31) mmol/L Anion Gap (3-11) POC Anion Gap (16-25) mmol/L POC BUN (7-18) mg/dl BUN (7-18) mg/dl Creatinine (0.6-1.4) mg/dl POC Creatinine (0.6-1.3) mg/dl Est Cr Clr Drug Dosing ml/min Est GFR ( Amer) ml/min Est GFR (Non-Af Amer) ml/min BUN/Creatinine Ratio (10-20) Glucose (70-99) mg/dl POC Glucose (other) (70-99) mg/dl Lactate 1.8 (0.4-2.0) mmol/L Calcium (8.5-10.1) mg/dl POC Ioniz Calcium Sky (1.12-1.32) mmol/l Magnesium (1.8-2.4) mg/dl Total Bilirubin (0.2-1) mg/dl AST (15-37) U/L ALT (12-78) U/L Alkaline Phosphatase (45-117) U/L Troponin I (0-0.045) ng/ml Total Protein (6.4-8.2) gm/dl Albumin (3.4-5.0) gm/dl Globulin (2.5-4.0) gm/dl Albumin/Globulin Ratio (0.9-2) Lipase (73-393) U/L Procalcitonin (0-0.5) ng/ml Urine Color Yellow Urine Appearance Clear (Clear) Urine pH 6.0 (4.5-7.5) Ur Specific [place] 1.006 (1.000-1.030) Urine Protein Negative (Negative) Urine Glucose (UA) 1+ H (Negative) Urine Ketones Negative (Negative) Urine Blood Negative (Negative) Urine Nitrite Negative (Negative) Urine Bilirubin Negative (Negative) Urine Urobilinogen Negative (Negative) Ur Leukocyte Esterase Negative (Negative) Urine Opiates Screen Neg (Neg) Ur Methadone, Qual Neg (Neg) Urine Barbiturates Neg (Neg) Ur Phencyclidine (PCP) Neg (Neg) U Amphetamin/Meth Scrn Neg (Neg) MDMA (Ecstasy) Screen Neg (Neg) U Benzodiazepines Scrn Neg (Neg) Ur Cocaine Metabolite Neg (Neg) U Marijuana (THC) Screen Neg (Neg) Ethyl Alcohol mg/dL (0-3) mg/dl COVID-19 Eval Order SARS-CoV-2 (PCR) (Negative) Imaging Data Chest x-ray: Radiologist's impression: SINGLE VIEW CHEST CLINICAL HISTORY: Sepsis. FINDINGS: 2 AP, portable, semierect chest radiographs are compared to study dated 10/01/2019. The examination is degraded by portable technique and patient rotation. The heart is enlarged noting atherosclerotic calcification of the thoracic aorta. The pulmonary vasculature is noncongested. The lungs and pleural spaces are clear. No pneumothorax is seen. The skeletal structures are osteopenic. The bony thorax is grossly intact. Fusion hardware is noted in the lower cervical spine. IMPRESSION: Cardiomegaly with no active disease in the chest. ACT 112: Negative or not required by law. Electronically signed by: Kevon Hwang M.D. 02/16/2021 11:29 PM Dictated: 02/16/[id number]: 02/16/212327 CT scan - chest: Radiologist's impression: CT ANGIOGRAM OF THE CHEST COMBO; CT ANGIOGRAM OF THE ABDOMEN AND PELVIS CLINICAL HISTORY: Atypical chest pain. Generalized abdominal pain. COMPARISON STUDY: Chest CT dated 11/19/2016. Abdominal CT dated 11/18/2016. TECHNIQUE: Unenhanced CT scan of the chest is performed. Subsequently, following the IV administration of 120 cc of Optiray 320, CT angiogram of the chest, abdomen, and pelvis was performed from the thoracic inlet to the proximal femora. Images are reviewed in the axial, sagittal, and coronal planes. 3-D MIPS images are created and assessed. IV contrast was administered without complication. A dose lowering technique was utilized adhering to the principles of ALARA. The abdominal examination is modestly degraded by motion artifact. CT DOSE: 2405.40 mGy.cm FINDINGS: CHEST: Thyroid: Imaged portions of the thyroid gland are normal in size and attenuation. Thoracic aorta: No intramural hematoma is seen on the unenhanced series. There is atherosclerotic calcification of the thoracic aorta, which is normal in course and caliber. The aortic arch demonstrates standard 3-vessel anatomy. No dissection is seen. The arch vessels are widely patent. Pulmonary vasculature: The pulmonary trunk is normal in caliber. There are no filling defects within the main, lobar, or segmental pulmonary arteries to s uggest pulmonary embolus. Heart: The heart is top normal in size and without pericardial effusion. The coronary arteries are densely calcified. Lungs and pleural spaces: Minimal emphysematous change is seen at the apices. No airspace consolidation or pleural effusion is identified. The trachea and central airways are clear. There are scattered punctate calcified granulomas. A 2 mm left upper lobe pulmonary nodule on image #115 is unchanged from 2017 and of doubtful significance. Minimal calcified pleural plaque is seen on the right. Mediastinum: There is no mediastinal lymphadenopathy. Leslie: Clear. Axillae: There is no axillary lymphadenopathy. Bony thorax: The skeletal structures appear osteopenic. Fusion hardware is noted in the lower cervical spine. No lytic or blastic bony lesions are identified. ABDOMEN AND PELVIS: Liver: The contrast-enhanced liver is normal in size, contour, and attenuation. There is no intrahepatic biliary ductal dilatation. The main portal veins appear patent. Gallbladder: Contracted. Spleen: Normal in size and attenuation. Pancreas: Unremarkable. Adrenal glands: Unremarkable. Kidneys: The contrast enhanced kidneys are normal in size and without hydronephrosis. The kidneys enhance symmetrically. Abdominal aorta and iliac arteries: The abdominal aorta is normal in course and caliber. There is advanced atherosclerotic calcification of the abdominal aorta and iliac arteries. The abdominal aorta and iliac arteries are patent. No dissection is seen. Major branches of the abdominal aorta: The celiac trunk, superior mesenteric, and inferior mesenteric arteries are widely patent. The splenic artery is patent. There is a replaced right hepatic artery which arises from the superior mesenteric artery. Single bilateral renal arteries are widely patent. Stomach and bowel: There is a small hiatal hernia. There is moderate colonic fecal retention. No bowel obstruction is seen. Question wall thickening and hyperemia involving the second and third portions of the duodenum with surrounding infiltration. This is suboptimally assessed due to motion artifact. The appendix is well-visualized and normal. Peritoneum: There is no intraperitoneal free air or abdominal ascites. Lymphadenopathy: None. Pelvic viscera: The bladder, prostate, and seminal vesicles are normal as visualized. Skeletal structures: The skeletal structures appear osteopenic. There is postoperative change from spinal fusion seen from L2-S1. Lucency around the left interpedicular screw at S1 suggests loosening. No lytic or blastic lesions are seen. IMPRESSION: 1. Unremarkable CT angiogram of the thoracic aorta. 2. There is no evidence of pulmonary embolus in the main, lobar, or segmental pulmonary arteries. 3. Mild emphysema. 4. There is no airspace consolidation or pleural effusion. 5. Unremarkable CT angiogram of the abdominal aorta and its major branches. 6. Question mild wall thickening with surrounding inflammation involving the duodenum. Correlate clinically for evidence of duodenitis or possibly ulcer disease. This could be further assessed with endoscopy if clinically warranted. 7. Lucency around the left interpedicular screw at S1 suggests loosening. 8. Additional findings as above. ACT 112: Negative or not required by law. Electronically signed by: Kevon Hwang M.D. 02/17/2021 12:20 AM Dictated: 02/17/21 0001Transcribed: 02/17/21 0001 ECG Data Additional Comments: EKG #1 at 2153: Sinus tachycardia with a rate of 152. LA QRS and QTc intervals are within normal limits. Mild ST elevation in lead aVR mild ST depression in leads V4 through V6. EKG #2 at 2237: Atrial flutter with 2-1 conduction with a ventricular rate of 146. QRS [address] elevation or ST depression. EKG #3 at 2229: Atrial flutter with 2-1 conduction with a ventricular rate of 145. QRS [address] elevation or ST depression. EKG #4 at 2230: Atrial flutter with 2-1 conduction with ventricular rate of 142. QRS and QTc intervals are within normal limits and no ST elevation or ST depression. PVCs present. MDM Narrative 2201: The patient was evaluated in room C10. A complete history and physical exam was performed Cardiac monitoring: An order was placed for continuous cardiac monitoring. The monitor shows a rate of atrial flutter with 150 rhythm Large-bore IV access was obtained and IV fluids were started. On recheck of blood pressure in his room his blood pressure was stable in both upper extr emities. Cardizem boluses ordered to help the patient's ventricular rate. Patient be started on Cardizem drip. CTA of the chest and abdomen ordered to rule out dissection. Ativan also ordered for the patient. 0011: Vital signs improved on Cardizem drip after 2 L IV fluid and 1 mg Ativan.. Ventricular rate stable. Labs show magnesium 1.6. Magnesium replacement started in the emergency department. Lactic acid 2.3. Urine drug screen negative. Troponin and procalcitonin negative. Serum alcohol level 46.2. Is thought that the patient could be going through alcohol withdrawal leading to his tachycardia. Awaiting CT results. We will continue to monitor the patient. We will plan on admitting the patient. 0024: Vital signs stable on Cardizem drip. CTA of the chest and abdomen is ne gative for dissection. [facility] team for atrial flutter with RVR and most likely alcohol withdrawal. Dr. Urena will be notified. Impression & Plan Atrial flutter with rapid ventricular response, Alcohol abuse with withdrawal Critical Care Time Critical Care Time: Yes Total Critical Care Time: 62 I have personally spent greater than 62 minutes of critical care time in the direct management of this patient. This includes bedside care, interpretation of diagnostic studies, and testing, discussion with consultants, patient, and family members, and other required patient management activities. This 62 minutes is in excess of all separately billable procedures. Discharge Plan Visit Data Chief Complaint: Cardiac Assessment Stated Complaint: SEVERE HEART BURN PAIN IN LOWER JAW/LOW B/P ED Provider: Rafael Phelan Discharge Problem: Atrial flutter with rapid ventricular response, Alcohol abuse with withdrawal Patient Disposition: Admitted As Inpatient Forms Stand Alone Forms: My [facility] Prescriptions Prescriptions: No Action metformin 500 mg tablet extended release 24 hr 2,000 mg PO QAM Qty: 360 RF: 3 glimepiride 1 mg tablet 1 mg PO QAM Qty: 90 RF: 3 fenofibrate 160 mg tablet 160 mg PO QAM Qty: 90 RF: 3 lisinopril 40 mg tablet 40 mg PO QAM Qty: 90 RF: 3 omeprazole 40 mg capsule,delayed release(DR/EC) 40 mg PO UD Qty: 30 RF: 11 tadalafil 10 mg tablet 5 mg PO QAM Qty: 45 RF: 3 metoprolol succinate 50 mg tablet extended release 24 hr 50 mg PO QAM Qty: 90 RF: 3 duloxetine 60 mg capsule,delayed release(DR/EC) 60 mg PO QAM Qty: 90 RF: 3 Praluent Pen 150 mg/mL pen injector 150 mg subcut Q14D Qty: 2 RF: 11 tramadol 50 mg tablet 100 mg PO BID Qty: 120 RF: 0 coQ10 (ubiquinol) 200 mg Capsule 200 mg PO QAM RF: 0 aspirin 81 mg Tablet,Delayed Release (Dr/Ec) 81 mg PO QAM RF: 0 hydrochlorothiazide 12.5 mg capsule 12.5 mg PO QAM RF: 0 acetaminophen 650 mg Tablet Extended Release 1,300 mg PO UD PRN (Reason: ARTHRITIS PAIN) RF: 0 clotrimazole-betamethasone 1-0.05 % cream See Rx Instructions topical BID PRN (Reason: flare ups) RF: 0 Referrals Referrals: Nitish Lam MD [Primary Care Provider] -
[2021-02-17] MEDS: MAGNESIUM SULFATE / D5W 1 GM/100 ML BAG IV SCH ×2 (00:05→01:19)
--- NOTE | 2021-02-17 00:21 | CT Scan Report ---
CT ANGIOGRAM OF THE CHEST COMBO; CT ANGIOGRAM OF THE ABDOMEN AND PELVIS CLINICAL HISTORY: Atypical chest pain. Generalized abdominal pain. COMPARISON STUDY: Chest CT dated 11/19/2016. Abdominal CT dated 11/18/2016. TECHNIQUE: Unenhanced CT scan of the chest is performed. Subsequently, following the IV administratio n of 120 cc of Optiray 320, CT angiogram of the chest, abdomen, and pelvis was performed from the tho racic inlet to the proximal femora. Images are reviewed in the axial, sagittal, and coronal planes. 3 -D MIPS images are created and assessed. IV contrast was administered without complication. A dose lo wering technique was utilized adhering to the principles of ALARA. The abdominal examination is modes tly degraded by motion artifact. CT DOSE: 2405.40 mGy.cm FINDINGS: CHEST: Thyroid: Imaged portions of the thyroid gland are normal in size and attenuation. Thoracic aorta: No intramural hematoma is seen on the unenhanced series. There is atherosclerotic griselda cification of the thoracic aorta, which is normal in course and caliber. The aortic arch demonstrates standard 3-vessel anatomy. No dissection is seen. The arch vessels are widely patent. Pulmonary vasculature: The pulmonary trunk is normal in caliber. There are no filling defects within the main, lobar, or segmental pulmonary arteries to suggest pulmonary embolus. Heart: The heart is top normal in size and without pericardial effusion. The coronary arteries are de nsely calcified. Lungs and pleural spaces: Minimal emphysematous change is seen at the apices. No airspace consolidati on or pleural effusion is identified. The trachea and central airways are clear. There are scattered punctate calcified granulomas. A 2 mm left upper lobe pulmonary nodule on image #115 is unchanged fro 2017 and of doubtful significance. Minimal calcified pleural plaque is seen on the right. Mediastinum: There is no mediastinal lymphadenopathy. Leslie: Clear. Axillae: There is no axillary lymphadenopathy. Bony thorax: The skeletal structures appear osteopenic. Fusion hardware is noted in the lower cervica l spine. No lytic or blastic bony lesions are identified. ABDOMEN AND PELVIS: Liver: The contrast-enhanced liver is normal in size, contour, and attenuation. There is no intrahepa tic biliary ductal dilatation. The main portal veins appear patent. Gallbladder: Contracted. Spleen: Normal in size and attenuation. Pancreas: Unremarkable. Adrenal glands: Unremarkable. Kidneys: The contrast enhanced kidneys are normal in size and without hydronephrosis. The kidneys enh ance symmetrically. Abdominal aorta and iliac arteries: The abdominal aorta is normal in course and caliber. There is adv anced atherosclerotic calcification of the abdominal aorta and iliac arteries. The abdominal aorta an d iliac arteries are patent. No dissection is seen. Major branches of the abdominal aorta: The celiac trunk, superior mesenteric, and inferior mesenteric arteries are widely patent. The splenic artery is patent. There is a replaced right hepatic artery w hich arises from the superior mesenteric artery. Single bilateral renal arteries are widely patent. Stomach and bowel: There is a small hiatal hernia. There is moderate colonic fecal retention. No reji l obstruction is seen. Question wall thickening and hyperemia involving the second and third portions of the duodenum with surrounding infiltration. This is suboptimally assessed due to motion artifact. The appendix is well-visualized and normal. Peritoneum: There is no intraperitoneal free air or abdominal ascites. Lymphadenopathy: None. Pelvic viscera: The bladder, prostate, and seminal vesicles are normal as visualized. Skeletal structures: The skeletal structures appear osteopenic. There is postoperative change from sp inal fusion seen from L2-S1. Lucency around the left interpedicular screw at S1 suggests loosening. N o lytic or blastic lesions are seen. IMPRESSION: 1. Unremarkable CT angiogram of the thoracic aorta. 2. There is no evidence of pulmonary embolus in the main, lobar, or segmental pulmonary arteries. 3. Mild emphysema. 4. There is no airspace consolidation or pleural effusion. 5. Unremarkable CT angiogram of the abdominal aorta and its major branches. 6. Question mild wall thickening with surrounding inflammation involving the duodenum. Correlate clin ically for evidence of duodenitis or possibly ulcer disease. This could be further assessed with endo scopy if clinically warranted. 7. Lucency around the left interpedicular screw at S1 suggests loosening. 8. Additional findings as above. ACT 112: Negative or not required by law. Electronically signed by: Kevon Hwang M.D. 02/17/2021 12:20 AM
--- NOTE | 2021-02-17 00:53 | History & Physical Report ---
Date of Service February 17, 2021 Assessment & Plan (1) Atrial flutter with rapid ventricular response: Plan: 60 yo M current smoker with hx CAD s/p stent placement, alcohol abuse, BPH, peptic ulcer disease admitted for new onset atrial flutter with rvr. Aflutter with RVR - as noted on telemetry and EKG - initially started on diltiazem drip in ER without improvement - converted to sinus rhythm and improvement in HR from 150 to 100s with metoprolol tartrate 5 mg IV x2. - PCU monitoring - may require increased beta blockade on discharge or BID dosing instead of current daily regimen - mag 1.6, repleted in ER - troponin negative - TTE - BMP AM Alcohol Abuse - currently drinks 6-8 beers per day. - last drink 5 pm 02/16 - ETOH 46.2, UDS negative - AWSS at risk protocol - lipase 155 - macrocytic anemia (11.4/107.5) - B12, folate levels pending - cbc AM Elevated Lactate - 2.3 in ER, down to 1.8 with heart rate control and fluids - secondary to poor forward flow, low suspicion for infection or ischemic injury JJ - CPAP HS - likely mixed JJ + obesity hypoventilation given BMI 38 - upper extremity venous dopplers for assessment of SVC syndrome given ruborous discoloration PUD - continue omeprazole daily - would benefit from education of disease triggering foods/beverages including alcohol - mild duodenal thickening noted on CT A/P, likely chronic. Chronic Conditions DM2: hold oral medications, SSI HTN: cont lisinopril, metoprolol, hctz CAD: cont ASA, statin Arthritis: continue home tramadol 50 bid DVT PPX: lovenox FEN/GI: heart healthy, carb count diet, continue PPI as above Code Status: FUll Code DIspo: PCU (2) Alcohol abuse with withdrawal: (3) BPH (benign prostatic hyperplasia): (4) Current smoker: (5) CAD in [place] artery: History of Present Illness Primary Care Provider: Nitish Lam MD 60 yo M with hx CAD s/p bare metal stent placement, alcohol abuse, lumbar spine stenosis, BPH, who came to the ER today for acute onset chest pain. He describes the pain as being "heartburn", sharp, mid chest. Says the pain is similar to the pain he had in 2008 when he needed to get stents placed in his heart. he tried to drink some milk and creme to alleviate the pain but didn't find any improvement. He also noticed some jaw pain around the same time, and took his blood pressure and saw it was in the 90s-100s/60s which concerned him. No nausea/vomiting/diarrhea. Mild stomach bloating but no pain. No headache/vision change/numbness/tingling/lightheadedness. No shortness of breath. No palpitations, just that heart rate "feels abnormal". No hx abnormal heart rhythms. notes that he has been tested for sleep apnea and has "mild" apnea, but doesn't use cpap at home. Denies apneic events, overnight SOB. Allergies Allergy/AdvReac Type Severity Reaction Status Date / Time latex Allergy Unknown Rash Verified 02/17/21 01:11 Penicillins Allergy Unknown Rash Verified 02/17/21 01:11 Pxnvbws-Llb-Uzd Reductase AdvReac Intermediate body aches Verified 02/17/21 01:11 Inhibitor adhesive AdvReac Unknown Rash Verified 02/17/21 01:11 gemfibrozil AdvReac Unknown BODY ACHES Verified 02/17/21 01:11 NSAIDS (Non-Steroidal AdvReac Unknown TOLD NOT Verified 02/17/21 01:11 Anti-Inflamma TO TAKE - HX STOMACH ULCER Home Medications Medication Instructions Recorded Confirmed Type coQ10 (ubiquinol) 200 mg capsule 200 mg PO QAM 03/16/19 02/17/21 History aspirin 81 mg tablet,delayed 81 mg PO QAM 10/13/19 02/17/21 History release metformin 500 mg tablet,extended 2,000 mg PO QAM #360 tab 05/01/20 02/17/21 Rx release 24 hr glimepiride 1 mg tablet 1 mg PO QAM #90 tab 07/03/20 02/17/21 Rx fenofibrate 160 mg tablet 160 mg PO QAM #90 tab 08/01/20 02/17/21 Rx lisinopril 40 mg tablet 40 mg PO QAM #90 tab 11/02/20 02/17/21 Rx acetaminophen 650 mg 1,300 mg PO UD PRN 12/06/20 02/17/21 History tablet,extended release hydrochlorothiazide 12.5 mg capsule 12.5 mg PO QAM 12/06/20 02/17/21 History omeprazole 40 mg capsule,delayed 40 mg PO UD #30 cap 12/13/20 02/17/21 Rx release tadalafil 10 mg tablet 5 mg PO QAM #45 tab 01/08/21 02/17/21 Rx metoprolol succinate 50 mg 50 mg PO QAM #90 tab 01/17/21 02/17/21 Rx tablet,extended release 24 hr duloxetine 60 mg capsule,delayed 60 mg PO QAM #90 cap 01/24/21 02/17/21 Rx release alirocumab 150 mg/mL subcutaneous 150 mg SUBCUT Q14D #2 ml 02/07/21 02/17/21 Rx pen injector (Praluent Pen) tramadol 50 mg tablet 100 mg PO BID #120 tab 02/14/21 02/17/21 Rx clotrimazole-betamethasone 1 See Rx Instructions TOPICAL BID PRN 02/17/21 02/17/21 History %-0.05 % topical cream Past Med/Surg History Medical History (Updated 02/17/21 @ 19:35 by Armand Renae MD) CAD in [place] artery s/p stent Degenerative disc disease Diabetes mellitus, type 2 GERD (gastroesophageal reflux disease) History of anesthesia reaction WITH BACK SURGERY 2004 - DISORIENTED, PULLED CATHETER OUT ([facility]) History of gastric ulcer Hyperlipidemia Hypertension Low iron Myocardial infarction Osteoarthritis Sleep apnea "MODERATE-MILD" no device Surgical History (Updated 02/17/21 @ 19:26 by Armand Renae MD) Fusion of spine CERVICAL, "HAVE 80% OF MOTION" History of colonoscopy History of esophagogastroduodenoscopy (EGD) History of heart artery stent History of lumbar surgery X 3 - 2004, 2006, 2019 History of nasal septoplasty History of total knee replacement RT/LEFT (LEFT REVISION) Hx of transurethral resection of prostate Family History Mother Family history of diabetes mellitus Father Family history of diabetes mellitus Denies family history of Ovarian cancer Prostate cancer Myocardial infarction Breast cancer Colorectal cancer Social History (Updated 02/17/21 @ 01:47 by Noy Martinez MD) Smoking Status: Current every day smoker Tobacco Type: Cigarettes Age Started Using Tobacco: 18; Cigarettes Per Day: 6; Second Hand Exposure: No; Do You Dip or Chew Tobacco: No; Tobacco Cessation Education Requested by Patient: No Hx Alcohol Use: Yes Alcohol type: beer Alcohol type Comment: 6-8 beers Hx Substance Use: No Preferred Language: Estonian Communication Ability: Effective Visual Impairment: No Limitations Bet Taker Required: No Beliefs That Will Affect Care: None marital status: Current Living Situation: Spouse Other Information That Helps Us Care for You: No Feels Safe at Home: Yes Safety Concerns: Feels Safe At This Time Childhood Exposure to Second-Hand Smoke: Yes Dental Care, Regularly: Yes Physical Activity Frequency: Does not Exercise Seatbelt Use: always Sunscreen Use: No Assistive Devices: Glasses Review of Systems Review of Systems: All systems reviewed & are unremarkable except as noted in Subjective Physical Exam Physical Exam: Constitutional: obese, in NAD, uncomfortable appearing Skin:rubrous skin coloring in upper chest and neck/head Eyes: EOMI, pupils equal and reactive bilaterally, no scleral icterus Cardiac: tachycardic, irregular rhythm, no m/r/g Pulm: CTA BL, no wheezes, rhonchi, crackles or rubs, breathing easily on room air Abd: soft, nontender, distended, normal bowel sounds, no rebound or guarding Extremities: 2+ peripheral pulses, no edema. large calves BL. negative camron's sign. Neuro: no focal deficits, moving all 4 limbs, A&Ox3 Results & Data Results & Data ([facility]) Vital Signs (Past 12 Hours) Vital Signs Temp Pulse Pulse Resp BP BP Pulse Ox 02/17/21 00:02 144 H 22 123/65 95 02/16/21 23:58 124 H 18 95 02/16/21 23:21 135 H 135 H 20 136/88 94 02/16/21 23:10 130 H 26 H 112/65 94 02/16/21 23:00 144 H 22 118/72 95 02/16/21 22:50 140 H 20 115/66 94 02/16/21 22:48 95 02/16/21 21:45 36.3 C L 155 H 18 92/49 L 96 02/16/21 21:35 93 Laboratory Results Laboratory Results WBC 8.78 K/uL (4.8-10.8) 02/16/21 22:14 RBC 3.22 M/uL (4.7-6.1) L 02/16/21 22:14 Hgb 11.4 g/dL (14.0-18.0) L 02/16/21 22:14 POC Hgb 12.6 g/dl (14.0-18.0) L 02/16/21 22:20 Hct 34.6 % (42-52) L 02/16/21 22:14 POC Hct 37 % (42-52) L 02/16/21 22:20 MCV 107.5 fL (80-100) H 02/16/21 22:14 MCH 35.4 pg (25-34) H 02/16/21 22:14 MCHC 32.9 g/dL (32-36) 02/16/21 22:14 RDW Std Deviation 56.6 fL (36.4-46.3) H 02/16/21 22:14 RDW Coeff of Kvng 14.2 % (11.5-14.5) 02/16/21 22:14 Plt Count 366 K/uL (130-400) 02/16/21 22:14 MPV 11.1 fL (7.4-10.4) H 02/16/21 22:14 Immature Gran % (Auto) 2.1 % 02/16/21 22:14 Neut % (Auto) 73.0 % 02/16/21 22:14 Lymph % (Auto) 16.2 % 02/16/21 22:14 Sullivan % (Auto) 8.4 % 02/16/21 22:14 Eos % (Auto) 0.1 % 02/16/21 22:14 Baso % (Auto) 0.2 % 02/16/21 22:14 Neut # (Auto) 6.41 K/uL (1.4-6.5) 02/16/21 22:14 Lymph # (Auto) 1.42 K/uL (1.2-3.4) 02/16/21 22:14 Sullivan # (Auto) 0.74 K/uL (0.11-0.59) H 02/16/21 22:14 Eos # (Auto) 0.01 K/uL (0-0.5) 02/16/21 22:14 Baso # (Auto) 0.02 K/uL (0-0.2) 02/16/21 22:14 Immature Gran # (Auto) 0.18 K/uL (0.00-0.02) H 02/16/21 22:14 PT 10.0 Seconds (9.0-12.0) 02/16/21 22:14 INR 1.0 (0.9-1.1) 02/16/21 22:14 APTT 26.7 Seconds (21.0-31.0) 02/16/21 22:14 PTT Ratio 1.0 02/16/21 22:14 POC Sodium 131 mmol/L (135-144) L 02/16/21 22:20 Sodium 131 mmol/L (136-145) L 02/16/21 22:14 POC Potassium 4.0 mmol/L (3.3-5.0) 02/16/21 22:20 Potassium 3.8 mmol/L (3.5-5.1) 02/16/21 22:14 POC Chloride 98 mmol/L (101-112) L 02/16/21 22:20 Chloride 101 mmol/L (98-107) 02/16/21 22:14 Carbon Dioxide 20 mmol/L (21-32) L 02/16/21 22:14 POC Total CO2 18 mmol/L (24-31) L 02/16/21 22:20 Anion Gap 9.0 (3-11) 02/16/21 22:14 POC Anion Gap 20.0 mmol/L (16-25) 02/16/21 22:20 POC BUN 20 mg/dl (7-18) H 02/16/21 22:20 BUN 19 mg/dl (7-18) H 02/16/21 22:14 Creatinine 1.16 mg/dl (0.6-1.4) 02/16/21 22:14 POC Creatinine 1.1 mg/dl (0.6-1.3) 02/16/21 22:20 Est Cr Clr Drug Dosing 83.8 ml/min 02/16/21 22:14 Est GFR ( Amer) 77.8 ml/min 02/16/21 22:14 Est GFR (Non-Af Amer) 67.1 ml/min 02/16/21 22:14 BUN/Creatinine Ratio 16.1 (10-20) 02/16/21 22:14 Glucose 187 mg/dl (70-99) H 02/16/21 22:14 POC Glucose (other) 192 mg/dl (70-99) H 02/16/21 22:20 Lactate 1.8 mmol/L (0.4-2.0) 02/17/21 00:36 Calcium 8.9 mg/dl (8.5-10.1) 02/16/21 22:14 POC Ioniz Calcium Sky 1.28 mmol/l (1.12-1.32) 02/16/21 22:20 Magnesium 1.6 mg/dl (1.8-2.4) L 02/16/21 22:14 Total Bilirubin < 0.1 mg/dl (0.2-1) L 02/16/21 22:14 AST 14 U/L (15-37) L 02/16/21 22:14 ALT 21 U/L (12-78) 02/16/21 22:14 Alkaline Phosphatase 50 U/L (45-117) 02/16/21 22:14 Troponin I < 0.015 ng/ml (0-0.045) 02/16/21 22:14 Total Protein 7.1 gm/dl (6.4-8.2) 02/16/21 22:14 Albumin 3.5 gm/dl (3.4-5.0) 02/16/21 22:14 Globulin 3.6 gm/dl (2.5-4.0) 02/16/21 22:14 Albumin/Globulin Ratio 1.0 (0.9-2) 02/16/21 22:14 Lipase 155 U/L (73-393) 02/16/21 22:14 Procalcitonin < 0.05 ng/ml (0-0.5) 02/16/21 22:14 Urine Color Yellow 02/16/21 Unknown Urine Appearance Clear (Clear) 02/16/21 Unknown Urine pH 6.0 (4.5-7.5) 02/16/21 Unknown Ur Specific [place] 1.006 (1.000-1.030) 02/16/21 Unknown Urine Protein Negative (Negative) 02/16/21 Unknown Urine Glucose (UA) 1+ (Negative) H 02/16/21 Unknown Urine Ketones Negative (Negative) 02/16/21 Unknown Urine Blood Negative (Negative) 02/16/21 Unknown Urine Nitrite Negative (Negative) 02/16/21 Unknown Urine Bilirubin Negative (Negative) 02/16/21 Unknown Urine Urobilinogen Negative (Negative) 02/16/21 Unknown Ur Leukocyte Esterase Negative (Negative) 02/16/21 Unknown Urine Opiates Screen Neg (Neg) 02/16/21 Unknown Ur Methadone, Qual Neg (Neg) 02/16/21 Unknown Urine Barbiturates Neg (Neg) 02/16/21 Unknown Ur Phencyclidine (PCP) Neg (Neg) 02/16/21 Unknown U Amphetamin/Meth Scrn Neg (Neg) 02/16/21 Unknown MDMA (Ecstasy) Screen Neg (Neg) 02/16/21 Unknown U Benzodiazepines Scrn Neg (Neg) 02/16/21 Unknown Ur Cocaine Metabolite Neg (Neg) 02/16/21 Unknown U Marijuana (THC) Screen Neg (Neg) 02/16/21 Unknown Ethyl Alcohol mg/dL 46.2 mg/dl (0-3) H 02/16/21 22:14 COVID-19 Eval Order Covid19 at [facility] 02/16/21 22:46 SARS-CoV-2 (PCR) NEGATIVE (Negative) 02/16/21 22:46 Impressions Chest X-Ray 02/16/21 22:07 SINGLE VIEW CHEST CLINICAL HISTORY: Sepsis. FINDINGS: 2 AP, portable, semierect chest radiographs are compared to study dated 10/01/2019. The examination is degraded by portable technique and patient rotation. The heart is enlarged noting atherosclerotic calcification of the thoracic aorta. The pulmonary vasculature is noncongested. The lungs and pleural spaces are clear. No pneumothorax is seen. The skeletal structures are osteopenic. The bony thorax is grossly intact. Fusion hardware is noted in the lower cervical spine. IMPRESSION: Cardiomegaly with no active disease in the chest. ACT 112: Negative or not required by law. Electronically signed by: Kevon Hwang M.D. 02/16/2021 11:29 PM Chest CTA 02/16/21 22:08 CT ANGIOGRAM OF THE CHEST COMBO; CT ANGIOGRAM OF THE ABDOMEN AND PELVIS CLINICAL HISTORY: Atypical chest pain. Generalized abdominal pain. COMPARISON STUDY: Chest CT dated 11/19/2016. Abdominal CT dated 11/18/2016. TECHNIQUE: Unenhanced CT scan of the chest is performed. Subsequently, following the IV administration of 120 cc of Optiray 320, CT angiogram of the chest, abdomen, and pelvis was performed from the thoracic inlet to the proximal femora. Images are reviewed in the axial, sagittal, and coronal planes. 3-D MIPS images are created and assessed. IV contrast was administered without complication. A dose lowering technique was utilized adhering to the principles of ALARA. The abdominal examination is modestly degraded by motion artifact. CT DOSE: 2405.40 mGy.cm FINDINGS: CHEST: Thyroid: Imaged portions of the thyroid gland are normal in size and attenuation. Thoracic aorta: No intramural hematoma is seen on the unenhanced series. There is atherosclerotic calcification of the thoracic aorta, which is normal in course and caliber. The aortic arch demonstrates standard 3-vessel anatomy. No dissection is seen. The arch vessels are widely patent. Pulmonary vasculature: The pulmonary trunk is normal in caliber. There are no filling defects within the main, lobar, or segmental pulmonary arteries to suggest pulmonary embolus. Heart: The heart is top normal in size and without pericardial effusion. The coronary arteries are densely calcified. Lungs and pleural spaces: Minimal emphysematous change is seen at the apices. No airspace consolidation or pleural effusion is identified. The trachea and central airways are clear. There are scattered punctate calcified granulomas. A 2 mm left upper lobe pulmonary nodule on image #115 is unchanged from 2017 and of doubtful significance. Minimal calcified pleural plaque is seen on the right. Mediastinum: There is no mediastinal lymphadenopathy. Leslie: Clear. Axillae: There is no axillary lymphadenopathy. Bony thorax: The skeletal structures appear osteopenic. Fusion hardware is noted in the lower cervical spine. No lytic or blastic bony lesions are identified. ABDOMEN AND PELVIS: Liver: The contrast-enhanced liver is normal in size, contour, and attenuation. There is no intrahepatic biliary ductal dilatation. The main portal veins appear patent. Gallbladder: Contracted. Spleen: Normal in size and attenuation. Pancreas: Unremarkable. Adrenal glands: Unremarkable. Kidneys: The contrast enhanced kidneys are normal in size and without hydronephrosis. The kidneys enhance symmetrically. Abdominal aorta and iliac arteries: The abdominal aorta is normal in course and caliber. There is advanced atherosclerotic calcification of the abdominal aorta and iliac arteries. The abdominal aorta and iliac arteries are patent. No dissection is seen. Major branches of the abdominal aorta: The celiac trunk, superior mesenteric, and inferior mesenteric arteries are widely patent. The splenic artery is patent. There is a replaced right hepatic artery which arises from the superior mesenteric artery. Single bilateral renal arteries are widely patent. Stomach and bowel: There is a small hiatal hernia. There is moderate colonic fecal retention. No bowel obstruction is seen. Question wall thickening and hyperemia involving the second and third portions of the duodenum with surrounding infiltration. This is suboptimally assessed due to motion artifact. The appendix is well-visualized and normal. Peritoneum: There is no intraperitoneal free air or abdominal ascites. Lymphadenopathy: None. Pelvic viscera: The bladder, prostate, and seminal vesicles are normal as visualized. Skeletal structures: The skeletal structures appear osteopenic. There is postoperative change from spinal fusion seen from L2-S1. Lucency around the left interpedicular screw at S1 suggests loosening. No lytic or blastic lesions are seen. IMPRESSION: 1. Unremarkable CT angiogram of the thoracic aorta. 2. There is no evidence of pulmonary embolus in the main, lobar, or segmental pulmonary arteries. 3. Mild emphysema. 4. There is no airspace consolidation or pleural effusion. 5. Unremarkable CT angiogram of the abdominal aorta and its major branches. 6. Question mild wall thickening with surrounding inflammation involving the duodenum. Correlate clinically for evidence of duodenitis or possibly ulcer disease. This could be further assessed with endoscopy if clinically warranted. 7. Lucency around the left interpedicular screw at S1 suggests loosening. 8. Additional findings as above. ACT 112: Negative or not required by law. Electronically signed by: Kevon Hwang M.D. 02/17/2021 12:20 AM Supervising Physician Co-Signing Physician Notes Attending addendum: I have physically seen this patient, have supervised the medical residents activities, and agree with the H&P unless as otherwise noted. Assessment and Plan: Atrial flutter with RVR, 2-1 block- The patient will be admitted to telemetry for serial cardiac enzymes, serial EKG's, cardiac rhythm monitoring and a 2-D echocardiogram with Dopplers. Patient has been started on a Cardizem drip by the ED after getting diltiazem 25 mg and then 20 mg IV pushes, without significant effect. Medicine added Lopressor 5 mg IV x2, and patient converted to normal sinus rhythm while in the ED Optimize magnesium, being 1.6 upon admission, and be given 2 g of magnesium sulfate IV. We will recheck BMP and magnesium levels in a.m. Presently on metoprolol succinate 50 mg every morning, and would add 25 mg dose at bedtime for better 24-hour coverage, and decrease lisinopril to 20 mg daily. Consult cardiology Alcohol abuse/withdrawal- Place on AWSS protocol Thiamine 100 mg p.o. every morning Folic acid 1 mg p.o. every morning Nephrocaps 1 p.o. every morning Remaining orders and notations as noted Resident Activity Tracking Resident Involvement: Resident Care Provided Care Provided: Adult Hospital Medicine
[2021-02-17] MEDS ORDERED: METOPROLOL TARTRATE 1 MG/ML VIAL IV STA ×2 (01:10→01:18)
[2021-02-17] MEDS ORDERED: LORazepam 1 MG/2 ML VIAL IV PRN (02:23)
[2021-02-17] MEDS: METOPROLOL TARTRATE 1 MG/ML VIAL IV PRN ×2 (04:01→05:36)
[2021-02-17 07:16] LABS: Albumin Level 3.3 gm/dl (3.4-5.0); BUN Creatinine Ratio 16.8 (10-20); Creatinine Clr Calc Pharmacy 87.9 ml/min; Est GFR (African American) 82.9 ml/min; Est GFR (Non-African American) 71.6 ml/min; Potassium 4.9 mmol/L (3.5-5.1)
[2021-02-17 07:20] LABS: Albumin Globulin Ratio 0.9 (0.9-2); Bilirubin,Total 0.2 mg/dl (0.2-1); Globulin 3.5 gm/dl (2.5-4.0); Total Protein 6.8 gm/dl (6.4-8.2)
[2021-02-17 07:34] LABS: Basophils # (auto) 0.04 K/uL (0-0.2); Basophils % (auto) 0.5 %; Eosinophils # (auto) 0.01 K/uL (0-0.5); Eosinophils % (auto) 0.1 %; Hematocrit (blood only) 34.4 % (42-52); Immature Granulocytes # (auto) 0.15 K/uL (0.00-0.02); Lymphocytes # (auto) 1.38 K/uL (1.2-3.4); Lymphocytes % (auto) 18.8 %; Mean Corpuscular Hemoglobin 34.6 pg (25-34); Mean Corpuscular Volume 108.2 fL (80-100); Mean Platelet Volume 11.1 fL (7.4-10.4); Monocytes # (auto) 0.82 K/uL (0.11-0.59); Monocytes % (auto) 11.2 %; Neutrophils # (auto) 4.94 K/uL (1.4-6.5); Neutrophils % (auto) 67.4 %; Platelet Count 355 K/uL (130-400); RDW Coefficient of Variation 14.5 % (11.5-14.5); RDW Standard Deviation 57.5 fL (36.4-46.3); Red Blood Count 3.18 M/uL (4.7-6.1); White Blood Count 7.34 K/uL (4.8-10.8)
[2021-02-17] MEDS: ASPIRIN 81 MG ECTAB PO SCH (08:37)
[2021-02-17] MEDS: FENOFIBRATE NANOCRYSTALLIZED 145 MG TABLET PO SCH (08:37)
[2021-02-17] MEDS: hydroCHLOROthiazide 25 MG TAB PO SCH (08:37)
[2021-02-17] MEDS: DULoxetine HCL 60 MG CAP PO SCH (08:37)
[2021-02-17] MEDS: lisinopril 40 MG TAB PO SCH (08:37)
[2021-02-17] MEDS: METOPROLOL SUCC 50MG EXT REL TAB PO SCH (08:37)
[2021-02-17] MEDS: PANTOprazole 40 MG TAB PO SCH (08:37)
[2021-02-17] MEDS: traMADol HCL 50 MG TABLET PO SCH ×2 (08:43→21:17)
[2021-02-17] MEDS ORDERED: Heparin IV Adult Wt-Based Standard *NO* Bolus Protocol IV ONE (10:00)
[2021-02-17] MEDS ORDERED: METOPROLOL SUCC 50MG EXT REL TAB PO STA (10:09)
[2021-02-17 10:40] LABS: Folate (Folic Acid) 11.3 ng/ml (>5.38)
[2021-02-17 11:08] LABS: Partial Thromboplastin Ratio 0.9; Partial Thromboplastin Time 24.4 Seconds (21.0-31.0); Prothrombin Time 10.3 Seconds (9.0-12.0)
[2021-02-17] MEDS: HEPARIN SODIUM/DEXTROSE 25,000 UNITS/500 ML BAG IV SCH (11:21)
[2021-02-17] MEDS ORDERED: STAT IV Infusion **Titration per Protocol STA (14:13)
[2021-02-17] MEDS: dilTIAZem HCL 125 MG in DEXTROSE 5% 100 ML IV SCH (15:18)
--- NOTE | 2021-02-17 16:33 | Communication Note ---
Date of Service: February 17, 2021 Admitted after mid-night Seen this am. Recheck troponin level ordered. continue b felicity. Started on IV heparin drip after discussion with cardio. Monitor for any sign of GI bleed. RVR continues - added extra 50mgs metoprolol succinate for total 100mgs Still with persistent RVR - cardizem started Has h/o mild sleep apnea - will get nocturnal pulse oximetry H/o - AUD - discussed naltrexone. will discuss further and need for D and A counselling. Chronic back pain - self medicates with alcohol - Will further discuss other options to limit alc use.
[2021-02-17 18:25] LABS: Partial Thromboplastin Ratio 1.4; Partial Thromboplastin Time 35.9 Seconds (21.0-31.0)
[2021-02-17] MEDS ORDERED: HEPARIN SOD (PORCINE) 1000 UNIT/ML IV ONE (19:00)
--- NOTE | 2021-02-17 19:15 | Cardiology Consultation ---
Date of Consultation February 17, 2021 Assessment & Plan (1) Atrial flutter with rapid ventricular response: (2) CAD in [place] artery: (3) History of heart artery stent: (4) Alcohol abuse: (5) Elevated troponin: (6) Chest pain: (7) Current smoker: (8) Hypertension: (9) Hyperlipidemia: ASSESSMENT/PLAN: 1. Atrial flutter with rapid ventricular response: We discussed the diagnosis. We discussed potential treatment strategies. Atrial flutter is typically difficult to rate control. It is difficult to know the true onset as he is no longer symptomatic but remains in atrial flutter. Recommended anticoagulation in the form of heparin drip. Discussed transesophageal echo and cardioversion later this hospital stay if he does not spontaneously convert. Beta-felicity has been titrated. Recommended diltiazem drip if no improvement, which was then started by hospitalist service. Also discussed atrial flutter ablation, which would then negate the need for chronic anticoagulation therapy. Anticoagulate for stroke risk reduction but given his history of alcohol abuse and gastric ulcers, monitor closely for bleeding. 2. Elevated troponin: Likely due to demand ischemia in the setting of atrial flutter with rapid ventricular response. Had symptoms concerning for prior angina, which have subsided. Will consider ischemic evaluation at some point in the future. 3. CAD s/p LAD PCI: Had symptoms consistent with prior angina but has had similar symptoms in the past which appeared also to be due to GI etiology. Continue aspirin 81 mg daily indefinitely. Intolerant to statin therapy. Continue PCSK9 inhibitor. Continue beta-felicity and GOOD-inhibitor. 4. Alcohol abuse: Discussed the fact that alcohol abuse can cause atrial arrhythmia such as atrial flutter. Recommended that he refrain from consuming alcohol and at the very least consume no more than 1 or 2 per day if unable to quit. 5. Tobacco abuse: Recommended that he stop smoking. 6. Chest pain: Plan as above. May be related to atrial flutter with rapid ventricular response. Presentation less likely acute coronary syndrome. Echocardiogram ordered. 7. Hypertension: Blood pressure well controlled on average while hospitalized. Continue current plan. 8. Dyslipidemia: Severely elevated LDL but per records has not tolerated statin therapy. He has been prescribed Praluent. Fasting lipid profile ordered for the morning. 9. Sleep apnea: Discussed the fact that untreated sleep apnea can lead to atrial flutter. Recommended appropriate therapy. 10. Disposition: Cardiology will continue to follow. Plan of care discussed with of the primary hospitalist service earlier today shortly after patient was evaluated. Patient's was called as per patient request. We discussed his presentation and treatment plan. Highly complex medical issues for which GLADYS, cardioversion, atrial flutter ablation were considered and discussed. Thank you for allowing me to participate in the care of your patient. Please call for any other questions or concerns. Sincerely, Chao Renae M.D. History of Present Illness Reason for Consultation: Atrial flutter Requesting Physician: Debbi Singh MD Attending Physician: Debbi Singh MD History of Present Illness Mr. Becker is a pleasant 60-year-old gentleman with a history significant for CAD s/p mid LAD PCI x2, hypertension, carotid artery stenosis, dyslipidemia, type 2 diabetes, gastric ulcer, lumbar stenosis, sleep apnea (declined CPAP), and alcohol abuse. He has a history of statin intolerance secondary to severe myalgias. His primary poiser balance is Dr. Dhaliwal. He has had the following studies/procedures: 1. Cardiac catheterization June 2007: Presented with acute anterolateral [place]. 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 Luminal irregularities within circumflex and ramus. Mid RCA 30%. 2. Echo 10/12/2020: Normal LV size, wall motion, systolic function. EF 60- 65%. Mild LVH. No significant valvular abnormalities. He was admitted on 02/17/2021 after presenting to the emergency department with substernal chest discomfort described as indigestion that felt the same as prior angina in 2007. It radiated to the jaw and was associated shortness of breath. He denies diaphoresis. Symptoms occurred while laying in bed watching TV. Symptom onset began after trying to clear phlegm from his throat. Apparently this is a chronic issue and he uses ice cubes to help ease his throat. When the symptoms occurred, he also drank milk and then coffee cream a but no improvement of symptoms noted. Symptoms persisted for approximately 30 minutes. He then checked his blood pressure and his systolic pressure was in the 90s. He recalls feeling bloated. He denies syncope, near-syncope, palpitations, edema. Symptoms of chest discomfort persisted for 2 hours before resolving. When he was seen this morning, he felt back to baseline. He has had indigestion intermittently since 2008. At 1 point he underwent EGD and was diagnosed with gastric ulcers. On presentation in the emergency department, he was noted to be in atrial flutter with rapid ventricular response. He received diltiazem, including diltiazem drip without significant improvement. According to admitting records, he converted to sinus rhythm but remained tachycardic. Available ECGs for personal review, did not demonstrate sinus rhythm, but rather continued atrial flutter. Despite remaining in atrial flutter with rapid ventricular response at the time of today's visit this morning, he was asymptomatic and felt back to baseline. He admits that he consumes 6-10 beers per day. He also smokes approximately 6 cigarettes per day. He denies a history of melena, hematochezia, hematuria, hematemesis. He has been diagnosed with sleep apnea but does not use CPAP. Review of systems: As above. Review of systems otherwise negative/unremarkable. Family history: Positive CAD history. Social history: Smokes 6 cigarettes per day. Has smoked up to 1 pack per day in the past. Consume 6-10 beers daily. Has consume significant alcohol for years. Denies drug abuse. Lives at home with his . He has 4 children. 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 He was unaccompanied. Allergies Allergy/AdvReac Type Severity Reaction Status Date / Time latex Allergy Unknown Rash Verified 02/17/21 01:11 Penicillins Allergy Unknown Rash Verified 02/17/21 01:11 Zilgxoc-Sdo-Jrv Reductase AdvReac Intermediate body aches Verified 02/17/21 01:11 Inhibitor adhesive AdvReac Unknown Rash Verified 02/17/21 01:11 gemfibrozil AdvReac Unknown BODY ACHES Verified 02/17/21 01:11 NSAIDS (Non-Steroidal AdvReac Unknown TOLD NOT Verified 02/17/21 01:11 Anti-Inflamma TO TAKE - HX STOMACH ULCER Home Medications Medication Instructions Recorded Confirmed Type coQ10 (ubiquinol) 200 mg capsule 200 mg PO QAM 03/16/19 02/17/21 History aspirin 81 mg tablet,delayed 81 mg PO QAM 10/13/19 02/17/21 History release metformin 500 mg tablet,extended 2,000 mg PO QAM #360 tab 05/01/20 02/17/21 Rx release 24 hr glimepiride 1 mg tablet 1 mg PO QAM #90 tab 07/03/20 02/17/21 Rx fenofibrate 160 mg tablet 160 mg PO QAM #90 tab 08/01/20 02/17/21 Rx lisinopril 40 mg tablet 40 mg PO QAM #90 tab 11/02/20 02/17/21 Rx acetaminophen 650 mg 1,300 mg PO UD PRN 12/06/20 02/17/21 History tablet,extended release hydrochlorothiazide 12.5 mg capsule 12.5 mg PO QAM 12/06/20 02/17/21 History omeprazole 40 mg capsule,delayed 40 mg PO UD #30 cap 12/13/20 02/17/21 Rx release tadalafil 10 mg tablet 5 mg PO QAM #45 tab 01/08/21 02/17/21 Rx metoprolol succinate 50 mg 50 mg PO QAM #90 tab 01/17/21 02/17/21 Rx tablet,extended release 24 hr duloxetine 60 mg capsule,delayed 60 mg PO QAM #90 cap 01/24/21 02/17/21 Rx release alirocumab 150 mg/mL subcutaneous 150 mg SUBCUT Q14D #2 ml 02/07/21 02/17/21 Rx pen injector (Praluent Pen) tramadol 50 mg tablet 100 mg PO BID #120 tab 02/14/21 02/17/21 Rx clotrimazole-betamethasone 1 See Rx Instructions TOPICAL BID PRN 02/17/21 02/17/21 History %-0.05 % topical cream Patient History Medical History (Updated 02/17/21 @ 19:35 by Armand Renae MD) CAD in [place] artery s/p stent Degenerative disc disease Diabetes mellitus, type 2 GERD (gastroesophageal reflux disease) History of anesthesia reaction WITH BACK SURGERY 2004 - DISORIENTED, PULLED CATHETER OUT ([facility]) History of gastric ulcer Hyperlipidemia Hypertension Low iron Myocardial infarction Osteoarthritis Sleep apnea "MODERATE-MILD" no device Surgical History (Updated 02/17/21 @ 19:26 by Armand Renae MD) Fusion of spine CERVICAL, "HAVE 80% OF MOTION" History of colonoscopy History of esophagogastroduodenoscopy (EGD) History of heart artery stent History of lumbar surgery X 3 - 2004, 2006, 2019 History of nasal septoplasty History of total knee replacement RT/LEFT (LEFT REVISION) Hx of transurethral resection of prostate Family History Mother Family history of diabetes mellitus Father Family history of diabetes mellitus Denies family history of Ovarian cancer Prostate cancer Myocardial infarction Breast cancer Colorectal cancer Social History (Updated 02/17/21 @ 01:47 by Noy Martinez MD) Smoking Status: Current every day smoker Tobacco Type: Cigarettes Age Started Using Tobacco: 18; Cigarettes Per Day: 6; Second Hand Exposure: No; Do You Dip or Chew Tobacco: No; Tobacco Cessation Education Requested by Patient: No Hx Alcohol Use: Yes Alcohol type: beer Alcohol type Comment: 6-8 beers Hx Substance Use: No Preferred Language: Turkmen Communication Ability: Effective Visual Impairment: No Limitations Mirror Framer Required: No Beliefs That Will Affect Care: None marital status: Current Living Situation: Spouse Other Information That Helps Us Care for You: No Feels Safe at Home: Yes Safety Concerns: Feels Safe At This Time Childhood Exposure to Second-Hand Smoke: Yes Dental Care, Regularly: Yes Physical Activity Frequency: Does not Exercise Seatbelt Use: always Sunscreen Use: No Assistive Devices: Glasses Physical Exam Physical Exam: Gen.: No acute distress. Alert and oriented. HEENT: Anicteric sclera. Neck: Thick neck. No bruits. Normal carotid upstrokes bilaterally. Cardiac: PMI was nonpalpable. No ventricular heave. Irregularly irregular and tachycardic. Normal S1-S2. No murmurs, rubs, or gallops. Pulmonary: Clear to auscultation bilaterally without wheezes, rales, or rhonchi. Abdomen: Soft, nontender, nondistended, with normoactive bowel sounds. No bruits noted. Extremities: 2+ radial pulses bilaterally. 2+ posterior tibialis pulses bilaterally. No edema or cyanosis. Psychiatric: Affect appears appropriate. Results & Data ([facility]) Vital Signs (Past 12 Hours) Vital Signs Temp Pulse Resp BP Pulse Ox 02/17/21 18:24 101 H 02/17/21 18:08 147/73 H 02/17/21 15:44 36.6 C 154 H 18 113/87 95 02/17/21 11:47 36.7 C 155 H 22 146/80 H 97 02/17/21 08:38 36.5 C 150 H 18 125/63 95 Laboratory Results Laboratory Results - last 24 hr 02/16/21 02/16/21 02/16/21 22:14 22:14 22:14 WBC 8.78 RBC 3.22 L Hgb 11.4 L POC Hgb Hct 34.6 L POC Hct MCV 107.5 H MCH 35.4 H MCHC 32.9 RDW Std Deviation 56.6 H RDW Coeff of Kvng 14.2 Plt Count 366 MPV 11.1 H Immature Gran % (Auto) 2.1 Neut % (Auto) 73.0 Lymph % (Auto) 16.2 [place] % (Auto) 8.4 Eos % (Auto) 0.1 Baso % (Auto) 0.2 Neut # (Auto) 6.41 Lymph # (Auto) 1.42 [place] # (Auto) 0.74 H Eos # (Auto) 0.01 Baso # (Auto) 0.02 Immature Gran # (Auto) 0.18 H Absolute Nucleated RBC Nucleated RBC % (auto) Neutrophils % (Manual) Band Neutrophils % Lymphocytes % (Manual) Prolymphocyte % Reactive Lymphs % (Man) Monocytes % (Manual) Eosinophils % (Manual) Basophils % (Manual) Metamyelocytes % (Man) Myelocytes % (Man) Promyelocytes % (Man) Blast Cells % (Manual) Plasma Cell % (Manual) Other Cells % Nucleated RBC % Neutrophils # (Manual) Band Neutrophils # Total Absolute Neuts Lymphocytes # (Manual) Prolymphocyte # Reactive Lymphs # Total Abs Lymphocytes Monocytes # (Manual) Eosinophils # (Manual) Basophils # (Manual) Metamyelocytes # (Man) Myelocytes # (Manual) Promyelocytes # (Man) Blast Cells # (Man) Plasma Cell # (Manual) Other Cells # Nucleated RBCs # (Man) Hypersegmented Neuts Hyposegmented Neuts Hypogranular Neuts Large Granular Lymphs # Lrg Granular Lymphs Hairy Cells Smudge Cells Toxic Granulation Toxic Vacuolation Dohle Bodies Atif Rods Platelet Estimate Hypogranular Platelets Clumped Platelets Giant Platelets Platelet Satelliting RBC Morphology Polychromasia Hypochromasia Poikilocytosis Basophilic Stippling Anisocytosis Microcytosis Macrocytosis Spherocytes Pappenheimer Bodies Sickle Cells Target Cells Tear Drop Cells Ovalocytes Stomatocytes Jose Armando Bodies Echinocytes Acanthocytes (Spur) Rouleaux RBC Agglutinates Schistocytes RBC Morph Comment Sezary Cell PT INR APTT PTT Ratio POC Sodium Sodium 131 L POC Potassium Potassium 3.8 POC Chloride Chloride 101 Carbon Dioxide 20 L POC Total CO2 Anion Gap 9.0 POC Anion Gap POC BUN BUN 19 H Creatinine 1.16 POC Creatinine Est Cr Clr Drug Dosing 83.8 Est GFR ( Amer) 77.8 Est GFR (Non-Af Amer) 67.1 BUN/Creatinine Ratio 16.1 Glucose 187 H POC Glucose POC Glucose (other) Lactate Calcium 8.9 POC Ioniz Calcium Sky Magnesium 1.6 L Total Bilirubin < 0.1 L AST 14 L ALT 21 Alkaline Phosphatase 50 Troponin I < 0.015 Total Protein 7.1 Albumin 3.5 Globulin 3.6 Albumin/Globulin Ratio 1.0 Lipase 155 Vitamin B12 Folate Procalcitonin < 0.05 Specimen Hemolysis Urine Color Urine Appearance Urine pH Ur Specific [place] Urine Protein Urine Glucose (UA) Urine Ketones Urine Blood Urine Nitrite Urine Bilirubin Urine Urobilinogen Ur Leukocyte Esterase Urine Opiates Screen Ur Methadone, Qual Urine Barbiturates Ur Phencyclidine (PCP) U Amphetamin/Meth Scrn MDMA (Ecstasy) Screen U Benzodiazepines Scrn Ur Cocaine Metabolite U Marijuana (THC) Screen Ethyl Alcohol mg/dL COVID-19 Eval Order SARS-CoV-2 (PCR) Hepatitis C Ab Screen 02/16/21 02/16/21 02/16/21 22:14 22:14 22:14 WBC RBC Hgb POC Hgb Hct POC Hct MCV MCH MCHC RDW Std Deviation RDW Coeff of Kvng Plt Count MPV Immature Gran % (Auto) Neut % (Auto) Lymph % (Auto) [place] % (Auto) Eos % (Auto) Baso % (Auto) Neut # (Auto) Lymph # (Auto) [place] # (Auto) Eos # (Auto) Baso # (Auto) Immature Gran # (Auto) Absolute Nucleated RBC Nucleated RBC % (auto) Neutrophils % (Manual) Band Neutrophils % Lymphocytes % (Manual) Prolymphocyte % Reactive Lymphs % (Man) Monocytes % (Manual) Eosinophils % (Manual) Basophils % (Manual) Metamyelocytes % (Man) Myelocytes % (Man) Promyelocytes % (Man) Blast Cells % (Manual) Plasma Cell % (Manual) Other Cells % Nucleated RBC % Neutrophils # (Manual) Band Neutrophils # Total Absolute Neuts Lymphocytes # (Manual) Prolymphocyte # Reactive Lymphs # Total Abs Lymphocytes Monocytes # (Manual) Eosinophils # (Manual) Basophils # (Manual) Metamyelocytes # (Man) Myelocytes # (Manual) Promyelocytes # (Man) Blast Cells # (Man) Plasma Cell # (Manual) Other Cells # Nucleated RBCs # (Man) Hypersegmented Neuts Hyposegmented Neuts Hypogranular Neuts Large Granular Lymphs # Lrg Granular Lymphs Hairy Cells Smudge Cells Toxic Granulation Toxic Vacuolation Dohle Bodies Atif Rods Platelet Estimate Hypogranular Platelets Clumped Platelets Giant Platelets Platelet Satelliting RBC Morphology Polychromasia Hypochromasia Poikilocytosis Basophilic Stippling Anisocytosis Microcytosis Macrocytosis Spherocytes Pappenheimer Bodies Sickle Cells Target Cells Tear Drop Cells Ovalocytes Stomatocytes Miranda-[place] Bodies Echinocytes Acanthocytes (Spur) Rouleaux RBC Agglutinates Schistocytes RBC Morph Comment Sezary Cell PT 10.0 INR 1.0 APTT 26.7 PTT Ratio 1.0 POC Sodium Sodium POC Potassium Potassium POC Chloride Chloride Carbon Dioxide POC Total CO2 Anion Gap POC Anion Gap POC BUN BUN Creatinine POC Creatinine Est Cr Clr Drug Dosing Est GFR ( Amer) Est GFR (Non-Af Amer) BUN/Creatinine Ratio Glucose POC Glucose POC Glucose (other) Lactate 2.3 H* Calcium POC Ioniz Calcium Sky Magnesium Total Bilirubin AST ALT Alkaline Phosphatase Troponin I Total Protein Albumin Globulin Albumin/Globulin Ratio Lipase Vitamin B12 Folate Procalcitonin Specimen Hemolysis Urine Color Urine Appearance Urine pH Ur Specific [place] Urine Protein Urine Glucose (UA) Urine Ketones Urine Blood Urine Nitrite Urine Bilirubin Urine Urobilinogen Ur Leukocyte Esterase Urine Opiates Screen Ur Methadone, Qual Urine Barbiturates Ur Phencyclidine (PCP) U Amphetamin/Meth Scrn MDMA (Ecstasy) Screen U Benzodiazepines Scrn Ur Cocaine Metabolite U Marijuana (THC) Screen Ethyl Alcohol mg/dL 46.2 H COVID-19 Eval Order SARS-CoV-2 (PCR) Hepatitis C Ab Screen 02/16/21 02/16/21 02/16/21 22:20 22:46 22:46 WBC RBC Hgb POC Hgb 12.6 L Hct POC Hct 37 L MCV MCH MCHC RDW Std Deviation RDW Coeff of Kvng Plt Count MPV Immature Gran % (Auto) Neut % (Auto) Lymph % (Auto) [place] % (Auto) Eos % (Auto) Baso % (Auto) Neut # (Auto) Lymph # (Auto) [place] # (Auto) Eos # (Auto) Baso # (Auto) Immature Gran # (Auto) Absolute Nucleated RBC Nucleated RBC % (auto) Neutrophils % (Manual) Band Neutrophils % Lymphocytes % (Manual) Prolymphocyte % Reactive Lymphs % (Man) Monocytes % (Manual) Eosinophils % (Manual) Basophils % (Manual) Metamyelocytes % (Man) Myelocytes % (Man) Promyelocytes % (Man) Blast Cells % (Manual) Plasma Cell % (Manual) Other Cells % Nucleated RBC % Neutrophils # (Manual) Band Neutrophils # Total Absolute Neuts Lymphocytes # (Manual) Prolymphocyte # Reactive Lymphs # Total Abs Lymphocytes Monocytes # (Manual) Eosinophils # (Manual) Basophils # (Manual) Metamyelocytes # (Man) Myelocytes # (Manual) Promyelocytes # (Man) Blast Cells # (Man) Plasma Cell # (Manual) Other Cells # Nucleated RBCs # (Man) Hypersegmented Neuts Hyposegmented Neuts Hypogranular Neuts Large Granular Lymphs # Lrg Granular Lymphs Hairy Cells Smudge Cells Toxic Granulation Toxic Vacuolation Dohle Bodies Atif Rods Platelet Estimate Hypogranular Platelets Clumped Platelets Giant Platelets Platelet Satelliting RBC Morphology Polychromasia Hypochromasia Poikilocytosis Basophilic Stippling Anisocytosis Microcytosis Macrocytosis Spherocytes Pappenheimer Bodies Sickle Cells Target Cells Tear Drop Cells Ovalocytes Stomatocytes Miranda-[place] Bodies Echinocytes Acanthocytes (Spur) Rouleaux RBC Agglutinates Schistocytes RBC Morph Comment Sezary Cell PT INR APTT PTT Ratio POC Sodium 131 L Sodium POC Potassium 4.0 Potassium POC Chloride 98 L Chloride Carbon Dioxide POC Total CO2 18 L Anion Gap POC Anion Gap 20.0 POC BUN 20 H BUN Creatinine POC Creatinine 1.1 Est Cr Clr Drug Dosing Est GFR ( Amer) Est GFR (Non-Af Amer) BUN/Creatinine Ratio Glucose POC Glucose POC Glucose (other) 192 H Lactate Calcium POC Ioniz Calcium Sky 1.28 Magnesium Total Bilirubin AST ALT Alkaline Phosphatase Troponin I Total Protein Albumin Globulin Albumin/Globulin Ratio Lipase Vitamin B12 Folate Procalcitonin Specimen Hemolysis Urine Color Urine Appearance Urine pH Ur Specific [place] Urine Protein Urine Glucose (UA) Urine Ketones Urine Blood Urine Nitrite Urine Bilirubin Urine Urobilinogen Ur Leukocyte Esterase Urine Opiates Screen Ur Methadone, Qual Urine Barbiturates Ur Phencyclidine (PCP) U Amphetamin/Meth Scrn MDMA (Ecstasy) Screen U Benzodiazepines Scrn Ur Cocaine Metabolite U Marijuana (THC) Screen Ethyl Alcohol mg/dL COVID-19 Eval Order Covid19 at [facility] SARS-CoV-2 (PCR) NEGATIVE Hepatitis C Ab Screen 02/16/21 02/16/21 02/17/21 Unknown Unknown 00:36 WBC RBC Hgb POC Hgb Hct POC Hct MCV MCH MCHC RDW Std Deviation RDW Coeff of Kvng Plt Count MPV Immature Gran % (Auto) Neut % (Auto) Lymph % (Auto) [place] % (Auto) Eos % (Auto) Baso % (Auto) Neut # (Auto) Lymph # (Auto) [place] # (Auto) Eos # (Auto) Baso # (Auto) Immature Gran # (Auto) Absolute Nucleated RBC Nucleated RBC % (auto) Neutrophils % (Manual) Band Neutrophils % Lymphocytes % (Manual) Prolymphocyte % Reactive Lymphs % (Man) Monocytes % (Manual) Eosinophils % (Manual) Basophils % (Manual) Metamyelocytes % (Man) Myelocytes % (Man) Promyelocytes % (Man) Blast Cells % (Manual) Plasma Cell % (Manual) Other Cells % Nucleated RBC % Neutrophils # (Manual) Band Neutrophils # Total Absolute Neuts Lymphocytes # (Manual) Prolymphocyte # Reactive Lymphs # Total Abs Lymphocytes Monocytes # (Manual) Eosinophils # (Manual) Basophils # (Manual) Metamyelocytes # (Man) Myelocytes # (Manual) Promyelocytes # (Man) Blast Cells # (Man) Plasma Cell # (Manual) Other Cells # Nucleated RBCs # (Man) Hypersegmented Neuts Hyposegmented Neuts Hypogranular Neuts Large Granular Lymphs # Lrg Granular Lymphs Hairy Cells Smudge Cells Toxic Granulation Toxic Vacuolation Dohle Bodies Atif Rods Platelet Estimate Hypogranular Platelets Clumped Platelets Giant Platelets Platelet Satelliting RBC Morphology Polychromasia Hypochromasia Poikilocytosis Basophilic Stippling Anisocytosis Microcytosis Macrocytosis Spherocytes Pappenheimer Bodies Sickle Cells Target Cells Tear Drop Cells Ovalocytes Stomatocytes Miranda-[place] Bodies Echinocytes Acanthocytes (Spur) Rouleaux RBC Agglutinates Schistocytes RBC Morph Comment Sezary Cell PT INR APTT PTT Ratio POC Sodium Sodium POC Potassium Potassium POC Chloride Chloride Carbon Dioxide POC Total CO2 Anion Gap POC Anion Gap POC BUN BUN Creatinine POC Creatinine Est Cr Clr Drug Dosing Est GFR ( Amer) Est GFR (Non-Af Amer) BUN/Creatinine Ratio Glucose POC Glucose POC Glucose (other) Lactate 1.8 Calcium POC Ioniz Calcium Sky Magnesium Total Bilirubin AST ALT Alkaline Phosphatase Troponin I Total Protein Albumin Globulin Albumin/Globulin Ratio Lipase Vitamin B12 Folate Procalcitonin Specimen Hemolysis Urine Color Yellow Urine Appearance Clear Urine pH 6.0 Ur Specific [place] 1.006 Urine Protein Negative Urine Glucose (UA) 1+ H Urine Ketones Negative Urine Blood Negative Urine Nitrite Negative Urine Bilirubin Negative Urine Urobilinogen Negative Ur Leukocyte Esterase Negative Urine Opiates Screen Neg Ur Methadone, Qual Neg Urine Barbiturates Neg Ur Phencyclidine (PCP) Neg U Amphetamin/Meth Scrn Neg MDMA (Ecstasy) Screen Neg U Benzodiazepines Scrn Neg Ur Cocaine Metabolite Neg U Marijuana (THC) Screen Neg Ethyl Alcohol mg/dL COVID-19 Eval Order SARS-CoV-2 (PCR) Hepatitis C Ab Screen 02/17/21 02/17/21 02/17/21 05:59 05:59 05:59 WBC Cancelled RBC Cancelled Hgb Cancelled POC Hgb Hct Cancelled POC Hct MCV Cancelled MCH Cancelled MCHC Cancelled RDW Std Deviation Cancelled RDW Coeff of Kvng Cancelled Plt Count Cancelled MPV Cancelled Immature Gran % (Auto) Cancelled Neut % (Auto) Cancelled Lymph % (Auto) Cancelled [place] % (Auto) Cancelled Eos % (Auto) Cancelled Baso % (Auto) Cancelled Neut # (Auto) Cancelled Lymph # (Auto) Cancelled [place] # (Auto) Cancelled Eos # (Auto) Cancelled Baso # (Auto) Cancelled Immature Gran # (Auto) Cancelled Absolute Nucleated RBC Cancelled Nucleated RBC % (auto) Cancelled Neutrophils % (Manual) Cancelled Band Neutrophils % Cancelled Lymphocytes % (Manual) Cancelled Prolymphocyte % Cancelled Reactive Lymphs % (Man) Cancelled Monocytes % (Manual) Cancelled Eosinophils % (Manual) Cancelled Basophils % (Manual) Cancelled Metamyelocytes % (Man) Cancelled Myelocytes % (Man) Cancelled Promyelocytes % (Man) Cancelled Blast Cells % (Manual) Cancelled Plasma Cell % (Manual) Cancelled Other Cells % Cancelled Nucleated RBC % Cancelled Neutrophils # (Manual) Cancelled Band Neutrophils # Cancelled Total Absolute Neuts Cancelled Lymphocytes # (Manual) Cancelled Prolymphocyte # Cancelled Reactive Lymphs # Cancelled Total Abs Lymphocytes Cancelled Monocytes # (Manual) Cancelled Eosinophils # (Manual) Cancelled Basophils # (Manual) Cancelled Metamyelocytes # (Man) Cancelled Myelocytes # (Manual) Cancelled Promyelocytes # (Man) Cancelled Blast Cells # (Man) Cancelled Plasma Cell # (Manual) Cancelled Other Cells # Cancelled Nucleated RBCs # (Man) Cancelled Hypersegmented Neuts Cancelled Hyposegmented Neuts Cancelled Hypogranular Neuts Cancelled Large Granular Lymphs Cancelled # Lrg Granular Lymphs Cancelled Hairy Cells Cancelled Smudge Cells Cancelled Toxic Granulation Cancelled Toxic Vacuolation Cancelled Dohle Bodies Cancelled Atif Rods Cancelled Platelet Estimate Cancelled Hypogranular Platelets Cancelled Clumped Platelets Cancelled Giant Platelets Cancelled Platelet Satelliting Cancelled RBC Morphology Cancelled Polychromasia Cancelled Hypochromasia Cancelled Poikilocytosis Cancelled Basophilic Stippling Cancelled Anisocytosis Cancelled Microcytosis Cancelled Macrocytosis Cancelled Spherocytes Cancelled Pappenheimer Bodies Cancelled Sickle Cells Cancelled Target Cells Cancelled Tear Drop Cells Cancelled Ovalocytes Cancelled Stomatocytes Cancelled Miranda-[place] Bodies Cancelled Echinocytes Cancelled Acanthocytes (Spur) Cancelled Rouleaux Cancelled RBC Agglutinates Cancelled Schistocytes Cancelled RBC Morph Comment Cancelled Sezary Cell Cancelled PT INR APTT PTT Ratio POC Sodium Sodium 138 D POC Potassium Potassium 4.9 D POC Chloride Chloride 107 Carbon Dioxide 23 POC Total CO2 Anion Gap 8.0 POC Anion Gap POC BUN BUN 18 Creatinine 1.10 POC Creatinine Est Cr Clr Drug Dosing 87.9 Est GFR ( Amer) 82.9 Est GFR (Non-Af Amer) 71.6 BUN/Creatinine Ratio 16.8 Glucose 149 H POC Glucose POC Glucose (other) Lactate Calcium 9.0 POC Ioniz Calcium Sky Magnesium Total Bilirubin 0.2 AST 18 ALT 20 Alkaline Phosphatase 48 Troponin I Total Protein 6.8 Albumin 3.3 L Globulin 3.5 Albumin/Globulin Ratio 0.9 Lipase Vitamin B12 Cancelled Folate Cancelled Procalcitonin Specimen Hemolysis Urine Color Urine Appearance Urine pH Ur Specific Stevenson Urine Protein Urine Glucose (UA) Urine Ketones Urine Blood Urine Nitrite Urine Bilirubin Urine Urobilinogen Ur Leukocyte Esterase Urine Opiates Screen Ur Methadone, Qual Urine Barbiturates Ur Phencyclidine (PCP) U Amphetamin/Meth Scrn MDMA (Ecstasy) Screen U Benzodiazepines Scrn Ur Cocaine Metabolite U Marijuana (THC) Screen Ethyl Alcohol mg/dL COVID-19 Eval Order SARS-CoV-2 (PCR) Hepatitis C Ab Screen 02/17/21 02/17/21 02/17/21 05:59 07:01 07:46 WBC 7.34 RBC 3.18 L Hgb 11.0 L POC Hgb Hct 34.4 L POC Hct MCV 108.2 H MCH 34.6 H MCHC 32.0 RDW Std Deviation 57.5 H RDW Coeff of Kvng 14.5 Plt Count 355 MPV 11.1 H Immature Gran % (Auto) 2.0 Neut % (Auto) 67.4 Lymph % (Auto) 18.8 [place] % (Auto) 11.2 Eos % (Auto) 0.1 Baso % (Auto) 0.5 Neut # (Auto) 4.94 Lymph # (Auto) 1.38 [place] # (Auto) 0.82 H Eos # (Auto) 0.01 Baso # (Auto) 0.04 Immature Gran # (Auto) 0.15 H Absolute Nucleated RBC Nucleated RBC % (auto) Neutrophils % (Manual) Band Neutrophils % Lymphocytes % (Manual) Prolymphocyte % Reactive Lymphs % (Man) Monocytes % (Manual) Eosinophils % (Manual) Basophils % (Manual) Metamyelocytes % (Man) Myelocytes % (Man) Promyelocytes % (Man) Blast Cells % (Manual) Plasma Cell % (Manual) Other Cells % Nucleated RBC % Neutrophils # (Manual) Band Neutrophils # Total Absolute Neuts Lymphocytes # (Manual) Prolymphocyte # Reactive Lymphs # Total Abs Lymphocytes Monocytes # (Manual) Eosinophils # (Manual) Basophils # (Manual) Metamyelocytes # (Man) Myelocytes # (Manual) Promyelocytes # (Man) Blast Cells # (Man) Plasma Cell # (Manual) Other Cells # Nucleated RBCs # (Man) Hypersegmented Neuts Hyposegmented Neuts Hypogranular Neuts Large Granular Lymphs # Lrg Granular Lymphs Hairy Cells Smudge Cells Toxic Granulation Toxic Vacuolation Dohle Bodies Atif Rods Platelet Estimate Hypogranular Platelets Clumped Platelets Giant Platelets Platelet Satelliting RBC Morphology Polychromasia Hypochromasia Poikilocytosis Basophilic Stippling Anisocytosis Microcytosis Macrocytosis Spherocytes Pappenheimer Bodies Sickle Cells Target Cells Tear Drop Cells Ovalocytes Stomatocytes Miranda-[place] Bodies Echinocytes Acanthocytes (Spur) Rouleaux RBC Agglutinates Schistocytes RBC Morph Comment Sezary Cell PT INR APTT PTT Ratio POC Sodium Sodium POC Potassium Potassium POC Chloride Chloride Carbon Dioxide POC Total CO2 Anion Gap POC Anion Gap POC BUN BUN Creatinine POC Creatinine Est Cr Clr Drug Dosing Est GFR ( Amer) Est GFR (Non-Af Amer) BUN/Creatinine Ratio Glucose POC Glucose 184 H POC Glucose (other) Lactate Calcium POC Ioniz Calcium Sky Magnesium Total Bilirubin AST ALT Alkaline Phosphatase Troponin I Total Protein Albumin Globulin Albumin/Globulin Ratio Lipase Vitamin B12 Folate Procalcitonin Specimen Hemolysis Urine Color Urine Appearance Urine pH Ur Specific Stevenson Urine Protein Urine Glucose (UA) Urine Ketones Urine Blood Urine Nitrite Urine Bilirubin Urine Urobilinogen Ur Leukocyte Esterase Urine Opiates Screen Ur Methadone, Qual Urine Barbiturates Ur Phencyclidine (PCP) U Amphetamin/Meth Scrn MDMA (Ecstasy) Screen U Benzodiazepines Scrn Ur Cocaine Metabolite U Marijuana (THC) Screen Ethyl Alcohol mg/dL COVID-19 Eval Order SARS-CoV-2 (PCR) Hepatitis C Ab Screen Pending 02/17/21 02/17/21 02/17/21 09:03 09:03 10:22 WBC RBC Hgb POC Hgb Hct POC Hct MCV MCH MCHC RDW Std Deviation RDW Coeff of Kvng Plt Count MPV Immature Gran % (Auto) Neut % (Auto) Lymph % (Auto) [place] % (Auto) Eos % (Auto) Baso % (Auto) Neut # (Auto) Lymph # (Auto) [place] # (Auto) Eos # (Auto) Baso # (Auto) Immature Gran # (Auto) Absolute Nucleated RBC Nucleated RBC % (auto) Neutrophils % (Manual) Band Neutrophils % Lymphocytes % (Manual) Prolymphocyte % Reactive Lymphs % (Man) Monocytes % (Manual) Eosinophils % (Manual) Basophils % (Manual) Metamyelocytes % (Man) Myelocytes % (Man) Promyelocytes % (Man) Blast Cells % (Manual) Plasma Cell % (Manual) Other Cells % Nucleated RBC % Neutrophils # (Manual) Band Neutrophils # Total Absolute Neuts Lymphocytes # (Manual) Prolymphocyte # Reactive Lymphs # Total Abs Lymphocytes Monocytes # (Manual) Eosinophils # (Manual) Basophils # (Manual) Metamyelocytes # (Man) Myelocytes # (Manual) Promyelocytes # (Man) Blast Cells # (Man) Plasma Cell # (Manual) Other Cells # Nucleated RBCs # (Man) Hypersegmented Neuts Hyposegmented Neuts Hypogranular Neuts Large Granular Lymphs # Lrg Granular Lymphs Hairy Cells Smudge Cells Toxic Granulation Toxic Vacuolation Dohle Bodies Atif Rods Platelet Estimate Hypogranular Platelets Clumped Platelets Giant Platelets Platelet Satelliting RBC Morphology Polychromasia Hypochromasia Poikilocytosis Basophilic Stippling Anisocytosis Microcytosis Macrocytosis Spherocytes Pappenheimer Bodies Sickle Cells Target Cells Tear Drop Cells Ovalocytes Stomatocytes Miranda-[place] Bodies Echinocytes Acanthocytes (Spur) Rouleaux RBC Agglutinates Schistocytes RBC Morph Comment Sezary Cell PT 10.3 INR 1.0 APTT 24.4 PTT Ratio 0.9 POC Sodium Sodium POC Potassium Potassium POC Chloride Chloride Carbon Dioxide POC Total CO2 Anion Gap POC Anion Gap POC BUN BUN Creatinine POC Creatinine Est Cr Clr Drug Dosing Est GFR ( Amer) Est GFR (Non-Af Amer) BUN/Creatinine Ratio Glucose POC Glucose POC Glucose (other) Lactate Calcium POC Ioniz Calcium Sky Magnesium Total Bilirubin AST ALT Alkaline Phosphatase Troponin I 0.711 H* Total Protein Albumin Globulin Albumin/Globulin Ratio Lipase Vitamin B12 367 Folate 11.30 Procalcitonin Specimen Hemolysis Urine Color Urine Appearance Urine pH Ur Specific [place] Urine Protein Urine Glucose (UA) Urine Ketones Urine Blood Urine Nitrite Urine Bilirubin Urine Urobilinogen Ur Leukocyte Esterase Urine Opiates Screen Ur Methadone, Qual Urine Barbiturates Ur Phencyclidine (PCP) U Amphetamin/Meth Scrn MDMA (Ecstasy) Screen U Benzodiazepines Scrn Ur Cocaine Metabolite U Marijuana (THC) Screen Ethyl Alcohol mg/dL COVID-19 Eval Order SARS-CoV-2 (PCR) Hepatitis C Ab Screen 02/17/21 02/17/21 18:05 18:05 WBC RBC Hgb POC Hgb Hct POC Hct MCV MCH MCHC RDW Std Deviation RDW Coeff of Kvng Plt Count MPV Immature Gran % (Auto) Neut % (Auto) Lymph % (Auto) [place] % (Auto) Eos % (Auto) Baso % (Auto) Neut # (Auto) Lymph # (Auto) [place] # (Auto) Eos # (Auto) Baso # (Auto) Immature Gran # (Auto) Absolute Nucleated RBC Nucleated RBC % (auto) Neutrophils % (Manual) Band Neutrophils % Lymphocytes % (Manual) Prolymphocyte % Reactive Lymphs % (Man) Monocytes % (Manual) Eosinophils % (Manual) Basophils % (Manual) Metamyelocytes % (Man) Myelocytes % (Man) Promyelocytes % (Man) Blast Cells % (Manual) Plasma Cell % (Manual) Other Cells % Nucleated RBC % Neutrophils # (Manual) Band Neutrophils # Total Absolute Neuts Lymphocytes # (Manual) Prolymphocyte # Reactive Lymphs # Total Abs Lymphocytes Monocytes # (Manual) Eosinophils # (Manual) Basophils # (Manual) Metamyelocytes # (Man) Myelocytes # (Manual) Promyelocytes # (Man) Blast Cells # (Man) Plasma Cell # (Manual) Other Cells # Nucleated RBCs # (Man) Hypersegmented Neuts Hyposegmented Neuts Hypogranular Neuts Large Granular Lymphs # Lrg Granular Lymphs Hairy Cells Smudge Cells Toxic Granulation Toxic Vacuolation Dohle Bodies Atif Rods Platelet Estimate Hypogranular Platelets Clumped Platelets Giant Platelets Platelet Satelliting RBC Morphology Polychromasia Hypochromasia Poikilocytosis Basophilic Stippling Anisocytosis Microcytosis Macrocytosis Spherocytes Pappenheimer Bodies Sickle Cells Target Cells Tear Drop Cells Ovalocytes Stomatocytes Miranda-[place] Bodies Echinocytes Acanthocytes (Spur) Rouleaux RBC Agglutinates Schistocytes RBC Morph Comment Sezary Cell PT INR APTT 35.9 H PTT Ratio 1.4 POC Sodium Sodium POC Potassium Potassium POC Chloride Chloride Carbon Dioxide POC Total CO2 Anion Gap POC Anion Gap POC BUN BUN Creatinine POC Creatinine Est Cr Clr Drug Dosing Est GFR ( Amer) Est GFR (Non-Af Amer) BUN/Creatinine Ratio Glucose POC Glucose POC Glucose (other) Lactate Calcium POC Ioniz Calcium Sky Magnesium Total Bilirubin AST ALT Alkaline Phosphatase Troponin I 0.632 H* Total Protein Albumin Globulin Albumin/Globulin Ratio Lipase Vitamin B12 Folate Procalcitonin Specimen Hemolysis Urine Color Urine Appearance Urine pH Ur Specific [place] Urine Protein Urine Glucose (UA) Urine Ketones Urine Blood Urine Nitrite Urine Bilirubin Urine Urobilinogen Ur Leukocyte Esterase Urine Opiates Screen Ur Methadone, Qual Urine Barbiturates Ur Phencyclidine (PCP) U Amphetamin/Meth Scrn MDMA (Ecstasy) Screen U Benzodiazepines Scrn Ur Cocaine Metabolite U Marijuana (THC) Screen Ethyl Alcohol mg/dL COVID-19 Eval Order SARS-CoV-2 (PCR) Hepatitis C Ab Screen Diagnostic Findings Telemetry personally reviewed: Atrial flutter versus atrial fibrillation. ECGs personally reviewed: ECG 02/16/2021 at 10:31 p.m.: Atrial flutter 142 bpm with PVC versus aberrantly conducted complex. ECG 02/16/2021 at 9:53 p.m.: Atrial flutter with 2-1 av block at 152 bpm. ECG 02/16/2021 at 10:30 p.m.: Atrial flutter with 2-1 av conduction at 145 bpm. CTA chest/abdomen/pelvis: Unremarkable thoracic aorta. No PE. Mild emphysema. Question mild wall thickening surrounding duodenum per Radiology. Medications Administered Aspirin (Aspirin 81 Mg Ectab) 81 mg PO [facility] Stop: 03/19/21 08:59 Last Admin: 02/17/21 08:37 Dose: 81 mg Documented by: [id number] Duloxetine HCl (Duloxetine Hcl 60 Mg Cap) 60 mg PO [facility] Stop: 03/19/21 08:59 Last Admin: 02/17/21 08:37 Dose: 60 mg Documented by: [id number] Fenofibrate (Fenofibrate Nanocrystallized 145 Mg Tablet) 145 mg PO [facility] Stop: 03/19/21 08:59 Last Admin: 02/17/21 08:37 Dose: 145 mg Documented by: [id number] Hydrochlorothiazide (Hydrochlorothiazide 25 Mg Tab) 12.5 mg PO [facility] Stop: 03/19/21 08:59 Last Admin: 02/17/21 08:37 Dose: 12.5 mg Documented by: [id number] Heparin Sodium/Dextrose (Heparin Sodium/Dextrose) 25,000 units in 500 mls @ 36 mls/hr IV .[id number] [facility]; Protocol Stop: 03/19/21 10:14 Last Titration: 02/17/21 19:09 Dose: 1,800 units/hr, 36 mls/hr Documented by: [id number] Cosigned by: [id number] Titration: 02/17/21 18:31 Dose: 1,800 units/hr, 36 mls/hr Documented by: [id number] Cosigned by: [id number] Admin: 02/17/21 11:21 Dose: 1,600 units/hr, 32 mls/hr Documented by: [id number] Cosigned by: [id number] Diltiazem HCl 125 mg/ Dextrose 125 mls @ 15 mls/hr IV .[id number] [facility]; Protocol Stop: 03/19/21 14:14 Last Titration: 02/17/21 19:09 Dose: 15 mg/hr, 15 mls/hr Documented by: [id number] Cosigned by: [id number] Titration: 02/17/21 17:30 Dose: 15 mg/hr, 15 mls/hr Documented by: [id number] Cosigned by: [id number] Titration: 02/17/21 16:00 Dose: 10 mg/hr, 10 mls/hr Documented by: [id number] Cosigned by: [id number] Admin: 02/17/21 15:18 Dose: 5 mg/hr, 5 mls/hr Documented by: [id number] Cosigned by: [id number] [facility] 40 Mg Tab) [facility] [place]: 03/19/21 08:59 Last Admin: 02/17/21 08:37 Dose: 40 mg Documented by: [id number] Metoprolol Succinate (Metoprolol Succ 50mg Ext Rel Tab) [facility] [place]: 03/19/21 08:59 Last Admin: 02/17/21 08:37 Dose: 50 mg Documented by: [id number] Metoprolol Tartrate (Metoprolol Tartrate 1 Mg/Ml Vial) 5 mg IV Q5M PRN PRN Reason: hr>120 Stop: 03/19/21 03:47 Last Admin: 02/17/21 05:36 Dose: 5 mg Documented by: [id number] Admin: 02/17/21 04:01 Dose: 5 mg Documented by: [id number] Pantoprazole Sodium (Pantoprazole 40 Mg Tab) 40 mg PO DAILY [facility] Stop: 03/19/21 08:59 Last Admin: 02/17/21 08:37 Dose: 40 mg Documented by: [id number] Tramadol HCl (Tramadol Hcl 50 Mg Tablet) 100 mg PO BID [facility] Stop: 03/19/21 08:59 Last Admin: 02/17/21 08:43 Dose: 100 mg Documented by: [id number] Discontinued Medications Diltiazem HCl (Diltiazem Hcl 5 Mg/Ml 5 Ml Vial) 20 mg IV NOW STA Stop: 02/16/21 22:44 Last Admin: 02/16/21 22:47 Dose: 20 mg Documented by: [id number] Cosigned by: [id number] Diltiazem HCl (Diltiazem Hcl 5 Mg/Ml 5 Ml Vial) 25 mg IV NOW STA Stop: 02/16/21 22:52 Last Admin: 02/16/21 22:57 Dose: 25 mg Documented by: [id number] Cosigned by: [id number] Sodium Chloride (Nss 1000ml) 1,000 mls @ 999 mls/hr IV .Q1H1M [facility] Stop: 02/16/21 23:15 Last Infusion: 02/16/21 23:51 Dose: 0 mls/hr Documented by: [id number] Admin: 02/16/21 22:48 Dose: 999 mls/hr Documented by: [id number] Diltiazem HCl 125 mg/ Dextrose 125 mls @ 5 mls/hr IV .Q24H [facility]; Protocol Stop: 03/18/21 22:44 Last Titration: 02/17/21 02:55 Dose: 0 mg/hr, 0 mls/hr Documented by: [id number] Cosigned by: [id number] Titration: 02/16/21 23:59 Dose: 7.5 mg/hr, 7.5 mls/hr Documented by: [id number] Cosigned by: [id number] Admin: 02/16/21 23:08 Dose: 5 mg/hr, 5 mls/hr Documented by: [id number] Cosigned by: [id number] Lorazepam (Ativan) 1 mg in 2 mls @ 2 mls/min IV NOW STA Stop: 02/16/21 22:53 Last Admin: 02/16/21 22:57 Dose: 2 mls/min Documented by: [id number] Magnesium Sulfate/Dextrose (Magnesium Sulfate / D5w) 1 gm in 100 mls @ 100 mls/hr IV Q1H [facility] Stop: 02/17/21 01:02 Last Infusion: 02/17/21 03:25 Dose: 0 mls/hr Documented by: [id number] Admin: 02/17/21 01:19 Dose: 100 mls/hr Documented by: [id number] Infusion: 02/17/21 01:19 Dose: 0 mls/hr Documented by: [id number] Admin: 02/17/21 00:05 Dose: 100 mls/hr Documented by: [id number] Ioversol (Optiray 320 125ml) 120 ml IV ONCE ONE Stop: 02/17/21 00:00 Last Admin: 02/16/21 23:59 Dose: 120 ml Documented by: [id number] Metoprolol Succinate (Metoprolol Succ 50mg Ext Rel Tab) 50 mg PO NOW STA Stop: 02/17/21 10:10 Last Admin: 02/17/21 12:20 Dose: 50 mg Documented by: [id number] Metoprolol Tartrate (Metoprolol Tartrate 1 Mg/Ml Vial) 5 mg IV NOW STA Stop: 02/17/21 01:11 Last Admin: 02/17/21 01:19 Dose: 5 mg Documented by: [id number] Metoprolol Tartrate (Metoprolol Tartrate 1 Mg/Ml Vial) 5 mg IV NOW STA Stop: 02/17/21 01:19 Last Admin: 02/17/21 01:24 Dose: 5 mg Documented by: [id number] Miscellaneous (Stat Iv Infusion Titration Per Protocol) 1 ea N/A NOW STA Stop: 02/16/21 22:44 Last Admin: 02/17/21 01:24 Dose: Not Given Documented by: [id number] PG Care Time/CCT Total # of Minutes Spent Total Time Spent with Patient: Total time spent is greater than 50% in coordination of care (as documented) at patient's floor/unit and/or counseling patient: Coding Level of Care Code 45786 Inpt Consult Level 5 Diagnoses Atrial flutter with rapid ventricular response I48.92 CAD in [place] artery I25.10 History of heart artery stent Z95.5 Alcohol abuse F10.10 Elevated troponin R77.8 Chest pain R07.9 Current smoker F17.200 Hypertension I10 Hyperlipidemia E78.5
--- NOTE | 2021-02-17 21:36 | Billing Data ---
Date of Service February 17, 2021 Coding Level of Care Code 30657 Initial Inpt Care Lvl 3
--- NOTE | 2021-02-17 22:10 | XCELERA ---
[id number] [id number]
[2021-02-18] MEDS: dilTIAZem HCL 125 MG in DEXTROSE 5% 100 ML IV SCH ×3 (02:12→20:25)
[2021-02-18] MEDS: HEPARIN SODIUM/DEXTROSE 25,000 UNITS/500 ML BAG IV SCH ×3 (02:12→15:54)
[2021-02-18 02:15] LABS: Chol HDL Ratio 2; Cholesterol 130 mg/dl (0-200); HDL Cholesterol 56 mg/dl; LDL Cholesterol Calculated 48 mg/dl; Triglycerides 130 mg/dl (0-150); VLDL Cholesterol 26 mg/dl
[2021-02-18 02:20] LABS: Partial Thromboplastin Ratio 2.6
[2021-02-18 03:02] LABS: Partial Thromboplastin Time 67.8 Seconds (21.0-31.0)
--- NOTE | 2021-02-18 06:54 | Electrocardiogram Report ---
Test Reason : Blood Pressure : / mmHG Vent. Rate : 152 BPM Atrial Rate : 152 BPM P-R Int : 128 ms QRS Dur : 082 ms QT Int : 268 ms P-R-T Axes : 000 048 052 degrees QTc Int : 426 ms Atrial flutter with 2:1 A-V conduction Septal infarct , age undetermined Abnormal ECG When compared with ECG of 01-OCT-2019 11:00, Vent. rate has increased BY [address] now depressed in Inferior leads Atrial flutter has replaced Sinus rhythm Confirmed by Armand Renae ([id number]) on 02/18/2021 6:54:13 AM Referred By: REFERRED SELF Confirmed By:Armand Renae
--- NOTE | 2021-02-18 06:57 | Electrocardiogram Report ---
Test Reason : Blood Pressure : / mmHG Vent. Rate : 145 BPM Atrial Rate : 290 BPM P-R Int : 000 ms QRS Dur : 078 ms QT Int : 278 ms P-R-T Axes : 043 050 043 degrees QTc Int : 431 ms Atrial flutter with 2:1 A-V conduction Septal infarct (cited on or before 16-FEB-2021) Abnormal ECG When compared with ECG of 16-FEB-2021 21:53, ST no longer depressed in Inferior leads Confirmed by Armand Renae ([id number]) on 02/18/2021 6:56:35 AM Referred By: REFERRED SELF Confirmed By:Armand Renae
--- NOTE | 2021-02-18 06:57 | Electrocardiogram Report ---
Test Reason : Blood Pressure : / mmHG Vent. Rate : 142 BPM Atrial Rate : 147 BPM P-R Int : 000 ms QRS Dur : 080 ms QT Int : 278 ms P-R-T Axes : 000 045 039 degrees QTc Int : 427 ms Atrial flutter with rapid ventricular response with premature ventricular or aberrantly conducted com plexes Septal infarct (cited on or before 16-FEB-2021) Abnormal ECG When compared with ECG of 16-FEB-2021 22:30, Premature ventricular complexes are now Present Confirmed by Armand Renae ([id number]) on 02/18/2021 6:57:15 AM Referred By: REFERRED SELF Confirmed By:Armand Renae
[2021-02-18] MEDS: PANTOprazole 40 MG TAB PO SCH (08:13)
[2021-02-18] MEDS: FENOFIBRATE NANOCRYSTALLIZED 145 MG TABLET PO SCH (08:13)
[2021-02-18] MEDS: hydroCHLOROthiazide 25 MG TAB PO SCH (08:13)
[2021-02-18] MEDS: lisinopril 40 MG TAB PO SCH (08:14)
[2021-02-18] MEDS: DULoxetine HCL 60 MG CAP PO SCH (08:14)
[2021-02-18] MEDS: METOPROLOL SUCC 50MG EXT REL TAB PO SCH (08:14)
[2021-02-18] MEDS: ASPIRIN 81 MG ECTAB PO SCH (08:14)
[2021-02-18] MEDS: traMADol HCL 50 MG TABLET PO SCH ×2 (08:17→20:26)
[2021-02-18 09:53] LABS: Partial Thromboplastin Time 52.7 Seconds (21.0-31.0)
--- NOTE | 2021-02-18 10:05 | Ultrasound Report ---
ULTRASOUND BILATERAL UPPER EXTREMITY VENOUS CLINICAL HISTORY: Upper extremity edema. COMPARISON STUDY: CT angiogram of the chest dated 02/16/2021. TECHNIQUE: Real-time, grayscale, and color Doppler sonography of the deep veins of the right and left upper extremity is performed to assess the central venous structures. Compression and augmentation w ere utilized. FINDINGS: There is no sonographic evidence of deep venous thrombosis identified in the imaged portion s of the right or left upper extremity. The internal jugular and axillary veins are patent and normal ly compressible bilateral. Imaged portions of the subclavian veins are normal in caliber and patent b ilaterally. IMPRESSION: There is no sonographic evidence of deep venous thrombosis identified in the imaged vesse ls of the right or left upper extremity. ACT 112: Negative or not required by law. Electronically signed by: Kevon Hwang M.D. 02/18/2021 10:04 AM
--- NOTE | 2021-02-18 14:37 | Cardiology Progress Note ---
Date of Service February 18, 2021 Assessment & Plan (1) Atrial flutter with rapid ventricular response: (2) CAD in [place] artery: (3) History of heart artery stent: (4) Alcohol abuse: (5) Elevated troponin: (6) Chest pain: (7) Current smoker: (8) Hypertension: (9) Hyperlipidemia: Plan: ASSESSMENT/PLAN: 1. Atrial flutter with rapid ventricular response: Remains in atrial flutter. Heart rate better controlled with diltiazem drip and oral beta-felicity. Continue current regimen for now. Recommended transesophageal echo and cardioversion tomorrow. He was agreeable. Risks and benefits of the procedures were discussed with him in detail. Long-term, could consider ablation, especially for recurrence. Continue anticoagulation for stroke risk reduction. On discharge, would consider Eliquis. 2. Elevated troponin: Likely due to demand ischemia in the setting of atrial flutter with rapid ventricular response. Had symptoms concerning for prior angina, which have subsided. Peak troponin was 0.7. Given his history, would recommend noninvasive ischemic evaluation, which can be done as an outpatient. 3. CAD s/p LAD PCI: Had symptoms consistent with prior angina but has had similar symptoms in the past which appeared also to be due to GI etiology. No further chest discomfort. Continue aspirin 81 mg daily indefinitely. Intolerant to statin therapy. Continue PCSK9 inhibitor. Continue beta-felicity and GOOD-inhibitor. 4. Alcohol abuse: Recommended that he stop consuming alcohol given significant alcohol consumption, which can lead to atrial arrhythmia such as atrial flutter. Also, we discussed the fact that alcohol can continue to cause issues such as gastritis and ulceration. 5. Tobacco abuse: Recommended that he stop smoking. 6. Chest pain: Plan as above. May be related to atrial flutter with rapid ventricular response. Presentation less likely acute coronary syndrome. Outpatient noninvasive ischemic evaluation recommended. 7. Hypertension: Blood pressure remains well controlled. No changes made today . 8. Dyslipidemia: LDL was severely elevated in September of 2020 but now at goal, less than 70, while on PCSK9 inhibitor. 9. Sleep apnea: As per primary service.. 10. Disposition: Cardiology will continue to follow. Plan of care discussed with of the primary hospitalist service. Follow-up with Dr. Dhaliwal on discharge. Admission and Anticipated Discharge Date Admission Date: February 17, 2021 Subjective Patient was seen this morning. Has occasional palpitations and states that he has had intermittent palpitations over time. No further chest discomfort. He denies shortness of breath, syncope, near-syncope, edema, or bleeding. He was alone in his hospital room. Review of systems: As above. Physical Exam Physical Exam: Gen.: No acute distress. Alert and oriented. HEENT: Anicteric sclera. Neck: Thick neck. Cardiac: No ventricular heave. Irregularly irregular with normal rate. Normal S1-S2. No murmurs, rubs, or gallops. Pulmonary: Clear to auscultation bilaterally without wheezes, rales, or rhonchi. Abdomen: Soft, nontender, nondistended, with normoactive bowel sounds. No bruits noted. Extremities: 2+ radial pulses bilaterally. 2+ posterior tibialis pulses bilaterally. No edema or cyanosis. Psychiatric: Affect appears appropriate. Results & Data ([facility]) Vital Signs (Past 12 Hours) Vital Signs Temp Pulse Resp BP Pulse Ox 02/18/21 11:51 36.7 C 80 20 125/75 95 02/18/21 10:02 160/76 H 02/18/21 08:00 36.8 C 68 18 139/71 96 02/18/21 04:00 36.7 C 69 18 122/77 93 Laboratory Results Laboratory Results - last 24 hr 02/17/21 02/17/21 02/18/21 18:05 18:05 01:32 APTT 35.9 H 67.8 H* PTT Ratio 1.4 2.6 Troponin I 0.632 H* Triglycerides Cholesterol LDL Cholesterol, Calc VLDL Cholesterol, Calc HDL Cholesterol Cholesterol/HDL Ratio 02/18/21 02/18/21 01:32 09:10 APTT 52.7 H* PTT Ratio 2.0 Troponin I Triglycerides 130 Cholesterol 130 LDL Cholesterol, Calc 48 VLDL Cholesterol, Calc 26 HDL Cholesterol 56 Cholesterol/HDL Ratio 2 Diagnostic Findings telemetry personally reviewed: Atrial flutter with improved heart rate, but still episodes of tachycardia. ECG personally reviewed 02/18/2021 8:10 a.m.: Atrial flutter 117 bpm. Possible septal infarct. Echo 02/17/2021: Normal LV size. EF 50-55%. No regional wall motion abnormalities. Moderate LVH. No significant valvular abnormalities. Medications Administered Current Inpatient Medications Aspirin (Aspirin 81 Mg Ectab) 81 mg PO [facility] Stop: 03/19/21 08:59 Last Admin: 02/18/21 08:14 Dose: 81 mg Documented by: Duloxetine HCl (Duloxetine Hcl 60 Mg Cap) 60 mg PO [facility] Stop: 03/19/21 08:59 Last Admin: 02/18/21 08:14 Dose: 60 mg Documented by: Fenofibrate (Fenofibrate Nanocrystallized 145 Mg Tablet) 145 mg PO [facility] Stop: 03/19/21 08:59 Last Admin: 02/18/21 08:13 Dose: 145 mg Documented by: Hydrochlorothiazide (Hydrochlorothiazide 25 Mg Tab) 12.5 mg PO [facility] Stop: 03/19/21 08:59 Last Admin: 02/18/21 08:13 Dose: 12.5 mg Documented by: Lorazepam (Ativan) 1 mg in 2 mls @ 2 mls/min IV ONE PRN; Protocol PRN Reason: EtoH Withdrawal AWSS 6-10 Stop: 03/19/21 02:22 Heparin Sodium/Dextrose (Heparin Sodium/Dextrose) 25,000 units in 500 mls @ 34 mls/hr IV .[id number] [facility]; Protocol Stop: 03/19/21 10:14 Last Titration: 02/18/21 09:55 Dose: 1,700 units/hr, 34 mls/hr Documented by: Diltiazem HCl 125 mg/ Dextrose 125 mls @ 10 mls/hr IV .[id number] [facility]; Protocol Stop: 03/19/21 14:14 Last Titration: 02/18/21 10:02 Dose: 10 mg/hr, 10 mls/hr Documented by: Lisinopril (Lisinopril 40 Mg Tab) 40 mg PO [facility] Stop: 03/19/21 08:59 Last Admin: 02/18/21 08:14 Dose: 40 mg Documented by: Metoprolol Succinate (Metoprolol Succ 50mg Ext Rel Tab) 50 mg PO [facility] Stop: 03/19/21 08:59 Last Admin: 02/18/21 08:14 Dose: 50 mg Documented by: Metoprolol Tartrate (Metoprolol Tartrate 1 Mg/Ml Vial) 5 mg IV Q5M PRN PRN Reason: hr>120 Stop: 03/19/21 03:47 Last Admin: 02/17/21 05:36 Dose: 5 mg Documented by: Pantoprazole Sodium (Pantoprazole 40 Mg Tab) 40 mg PO DAILY [facility] Stop: 03/19/21 08:59 Last Admin: 02/18/21 08:13 Dose: 40 mg Documented by: Tramadol HCl (Tramadol Hcl 50 Mg Tablet) 100 mg PO BID [facility] Stop: 03/19/21 08:59 Last Admin: 02/18/21 08:17 Dose: 100 mg Documented by: PG Care Time/CCT Total # of Minutes Spent Total Time Spent with Patient: Total time spent is greater than 50% in coordination of care (as documented) at patient's floor/unit and/or counseling patient: Coding Level of Care Code 93342 Subseq Hosp Care Lvl 3 Diagnoses Atrial flutter with rapid ventricular response I48.92 CAD in [place] artery I25.10 History of heart artery stent Z95.5 Alcohol abuse F10.10 Elevated troponin R77.8 Chest pain R07.9 Current smoker F17.200 Hypertension I10 Hyperlipidemia E78.5
--- NOTE | 2021-02-18 15:37 | Hospitalist Progress Note ---
Date of Service February 18, 2021 Assessment & Plan (1) Atrial flutter with rapid ventricular response: Plan: 60 yo M current smoker with hx CAD s/p stent placement, alcohol abuse, BPH, peptic ulcer disease admitted for new onset atrial flutter with rvr. Aflutter with RVR - Received Diltiazem drip in ED. Converted to NSR. Back in A flutter and started on Diltiazem drip with multiple IV metoprolol doses. - IV heparin drip. - Continue metoprolol succinate 50mgs. - For possible GLADYS and cardioversion in am. Troponin elevation with h/o CAD s/p stent - Sec to demand ischemia - continue statin, asa, b felicity, ACEi, alirocumab, fenofibrate Elevated Lactate - Likely from poor perfusion from RVR. No concern of sepsis Mild JJ - Not on CPAP due to JJ being mild - Nocturnal oximetry with lowest SaQ2 of 84%. Alcohol Use Ds - currently drinks 6-8 beers per day. - last drink 5 pm 02/16 - ETOH 46.2, UDS negative - AWSS at risk protocol - No concern of withdrawal. - Discussed risks associated of a flutter and PUD. PUD - continue omeprazole daily - mild duodenal thickening noted on CT A/P, likely chronic. - No sign of bleeding while on IV heparin drip. Chronic back pain - self medicates with alcohol. - On cymbalta and tramadol. DM2: hold oral medications, SSI HTN: cont lisinopril, metoprolol, hctz Arthritis: continue home tramadol 50 bid DVT PPX: lovenox FEN/GI: heart healthy, carb count diet, continue PPI as above Code Status: FUll Code DIspo: PCU (2) Alcohol abuse with withdrawal: (3) BPH (benign prostatic hyperplasia): (4) Current smoker: (5) CAD in [place] artery: Admission and Anticipated Discharge Date Admission Date: February 17, 2021 Subjective Didn't get much sleep overnight. No chest pain, shortness of breath, fever. Physical Exam Constitutional: WD/WN, vitals as above Respiratory: normal respiratory effort, lungs clear to auscultation Cardiovascular: RRR, no murmur, no edema Psychiatric: A+Ox3, euthymic affect Results & Data Results & Data ([facility]) Vital Signs (Past 12 Hours) Vital Signs Temp Pulse Resp BP Pulse Ox 02/18/21 11:51 36.7 C 80 20 125/75 95 02/18/21 10:02 160/76 H 02/18/21 08:00 36.8 C 68 18 139/71 96 02/18/21 04:00 36.7 C 69 18 122/77 93
[2021-02-19] MEDS: HEPARIN SODIUM/DEXTROSE 25,000 UNITS/500 ML BAG IV SCH (05:56)
[2021-02-19] MEDS: dilTIAZem HCL 125 MG in DEXTROSE 5% 100 ML IV SCH (05:57)
--- NOTE | 2021-02-19 06:22 | Electrocardiogram Report ---
Test Reason : Blood Pressure : / mmHG Vent. Rate : 117 BPM Atrial Rate : 330 BPM P-R Int : 000 ms QRS Dur : 082 ms QT Int : 282 ms P-R-T Axes : 000 039 -43 degrees QTc Int : 393 ms Atrial flutter with variable A-V block with premature ventricular or aberrantly conducted complexes Septal infarct (cited on or before 16-FEB-2021) Abnormal ECG When compared with ECG of 16-FEB-2021 22:31, No significant change Confirmed by Armand Renae ([id number]) on 02/19/2021 6:22:13 AM Referred By: REFERRED SELF Confirmed By:Armand Renae
[2021-02-19] MEDS: lisinopril 40 MG TAB PO SCH (08:10)
[2021-02-19] MEDS: ASPIRIN 81 MG ECTAB PO SCH (08:10)
[2021-02-19] MEDS: DULoxetine HCL 60 MG CAP PO SCH (08:10)
[2021-02-19] MEDS: hydroCHLOROthiazide 25 MG TAB PO SCH (08:10)
[2021-02-19] MEDS: PANTOprazole 40 MG TAB PO SCH (08:10)
[2021-02-19] MEDS: METOPROLOL SUCC 50MG EXT REL TAB PO SCH (08:10)
[2021-02-19] MEDS: FENOFIBRATE NANOCRYSTALLIZED 145 MG TABLET PO SCH (08:11)
[2021-02-19] MEDS: traMADol HCL 50 MG TABLET PO SCH (08:12)
[2021-02-19 09:23] LABS: Partial Thromboplastin Ratio 1.8
[2021-02-19 09:29] LABS: Partial Thromboplastin Time 47.8 Seconds (21.0-31.0)
[2021-02-19] MEDS ORDERED: LIDOCAINE 2% 2 ML VIAL/AMP(20MG/ML) INFIL ONE (10:26)
[2021-02-19] MEDS ORDERED: PROPOFOL IV EMULSION 10 MG/ML 20 ML VIAL IV ONE (10:26)
[2021-02-19] MEDS ORDERED: PHENYLEPHRINE HCL 10 MG/ML VIAL ONE (10:28)
--- NOTE | 2021-02-19 10:28 | Anesthesiology Consultation ---
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 History Surgery Operation Date: 02/19/21 11:00 Proposed Procedures p Transesophageal Echo w/Anesthesia - Armand Renae MD s Cardioversion Development Lead w/Anesthesia - Armand Renae MD Height/Weight Height: 5 ft 10 in Weight: 108.4 kg Allergies Allergy/AdvReac Type Severity Reaction Status Date / Time latex Allergy Unknown Rash Verified 02/17/21 01:11 Penicillins Allergy Unknown Rash Verified 02/17/21 01:11 Ssndrfi-Icu-Wvl Reductase AdvReac Intermediate body aches Verified 02/17/21 01:11 Inhibitor adhesive AdvReac Unknown Rash Verified 02/17/21 01:11 gemfibrozil AdvReac Unknown BODY ACHES Verified 02/17/21 01:11 NSAIDS (Non-Steroidal AdvReac Unknown TOLD NOT Verified 02/17/21 01:11 Anti-Inflamma TO TAKE - HX STOMACH ULCER Medications Home Medications Medication Instructions Recorded Confirmed Last Taken coQ10 (ubiquinol) 200 mg capsule 200 mg PO QAM 03/16/19 02/17/21 12/12/20 aspirin 81 mg tablet,delayed 81 mg PO QAM 10/13/19 02/17/21 12/13/20 06:00 release metformin 500 mg tablet,extended 2,000 mg PO QAM #360 tab 05/01/20 02/17/21 12/12/20 release 24 hr glimepiride 1 mg tablet 1 mg PO QAM #90 tab 07/03/20 02/17/21 12/12/20 fenofibrate 160 mg tablet 160 mg PO QAM #90 tab 08/01/20 02/17/21 12/11/20 lisinopril 40 mg tablet 40 mg PO QAM #90 tab 11/02/20 02/17/21 12/13/20 06:00 acetaminophen 650 mg 1,300 mg PO UD PRN 12/06/20 02/17/21 12/12/20 tablet,extended release hydrochlorothiazide 12.5 mg capsule 12.5 mg PO QAM 12/06/20 02/17/21 12/12/20 omeprazole 40 mg capsule,delayed 40 mg PO UD #30 cap 12/13/20 02/17/21 Unknown release tadalafil 10 mg tablet 5 mg PO QAM #45 tab 01/08/21 02/17/21 Unknown metoprolol succinate 50 mg 50 mg PO QAM #90 tab 01/17/21 02/17/21 Unknown tablet,extended release 24 hr duloxetine 60 mg capsule,delayed 60 mg PO QAM #90 cap 01/24/21 02/17/21 Unknown release alirocumab 150 mg/mL subcutaneous 150 mg SUBCUT Q14D #2 ml 02/07/21 02/17/21 Unknown pen injector (Praluent Pen) tramadol 50 mg tablet 100 mg PO BID #120 tab 02/14/21 02/17/21 Unknown clotrimazole-betamethasone 1 See Rx Instructions TOPICAL BID PRN 02/17/21 02/17/21 Unknown %-0.05 % topical cream Active Medications Generic Name Dose Route Start Last Admin Trade Name Freq PRN Reason Stop Dose Admin Aspirin 81 mg 02/17/21 09:00 02/19/21 08:10 Aspirin 81 Mg Ectab PO 03/19/21 08:59 81 mg QAM [facility] Administration Duloxetine HCl 60 mg 02/17/21 09:00 02/19/21 08:10 Duloxetine Hcl 60 Mg Cap PO 03/19/21 08:59 60 mg QAM [facility] Administration Fenofibrate 145 mg 02/17/21 09:00 02/19/21 08:11 Fenofibrate Nanocrystallized 145 Mg Tablet PO 03/19/21 08:59 145 mg QAM [facility] Administration Hydrochlorothiazide 12.5 mg 02/17/21 09:00 02/19/21 08:10 Hydrochlorothiazide 25 Mg Tab PO 03/19/21 08:59 12.5 mg QAM [facility] Administration Heparin Sodium/Dextrose 25,000 units in 500 mls @ 34 mls/hr 02/17/21 10:15 05:56 Heparin Sodium/Dextrose IV 03/19/21 10:14 1,700 units/hr .[id number] [facility] 34 mls/hr Administration Protocol 1,700 UNITS/HR Diltiazem HCl 125 mg/ Dextrose 125 mls @ 10 mls/hr 02/17/21 14:15 02/19/21 06:59 IV 03/19/21 14:14 10 mg/hr .[id number] [facility] 10 mls/hr Titration Protocol 10 MG/HR Lisinopril 40 mg 02/17/21 09:00 02/19/21 08:10 Lisinopril 40 Mg Tab PO 03/19/21 08:59 40 mg QAM [facility] Administration Metoprolol Succinate 50 mg 02/17/21 09:00 02/19/21 08:10 Metoprolol Succ 50mg Ext Rel Tab PO 03/19/21 08:59 50 mg QAM [facility] Administration Metoprolol Tartrate 5 mg 02/17/21 03:48 02/17/21 05:36 Metoprolol Tartrate 1 Mg/Ml Vial IV 03/19/21 03:47 5 mg Q5M PRN Administration hr>120 Pantoprazole Sodium 40 mg 02/17/21 09:00 02/19/21 08:10 Pantoprazole 40 Mg Tab PO 03/19/21 08:59 40 mg DAILY [facility] Administration Tramadol HCl 100 mg 02/17/21 09:00 02/19/21 08:12 Tramadol Hcl 50 Mg Tablet PO 03/19/21 08:59 100 mg BID [facility] Administration Past Medical History Medical History CAD in [place] artery s/p stent Degenerative disc disease Diabetes mellitus, type 2 GERD (gastroesophageal reflux disease) History of anesthesia reaction WITH BACK SURGERY 2004 - DISORIENTED, PULLED CATHETER OUT ([facility]) History of gastric ulcer Hyperlipidemia Hypertension Low iron Myocardial infarction Osteoarthritis Sleep apnea "MODERATE-MILD" no device Past Family History Family History Mother Family history of diabetes mellitus Father Family history of diabetes mellitus Denies family history of Ovarian cancer Prostate cancer Myocardial infarction Breast cancer Colorectal cancer Past Surgical History Surgical History Fusion of spine CERVICAL, "HAVE 80% OF MOTION" History of colonoscopy History of esophagogastroduodenoscopy (EGD) History of heart artery stent History of lumbar surgery X 3 - 2004, 2006, 2019 History of nasal septoplasty History of total knee replacement RT/LEFT (LEFT REVISION) Hx of transurethral resection of prostate Social History Smoking Status: Current every day smoker tobacco type: cigarettes Smoking cigarettes per day: 6 Do You Dip or Chew Tobacco: No Hx Alcohol Use: Yes Alcohol type: beer alcohol intake frequency: 3 or more drinks per day Alcohol Intake Frequency Comment: 6-10 beers daily Hx Substance Use: No substance use type: does not use Physical Exam Vital Signs Last Vital Signs Temp 98.4 F 02/19/21 07:25 Pulse 88 02/19/21 07:25 Resp 19 02/19/21 07:25 BP 131/77 02/19/21 07:25 Pulse Ox 94 02/19/21 07:25 Testing Laboratory Results 02/17/21 07:01 02/17/21 05:59 PT 10.3 Seconds (9.0-12.0) 02/17/21 10:22 INR 1.0 (0.9-1.1) 02/17/21 10:22 APTT 47.8 Seconds (21.0-31.0) H* 02/19/21 08:49 Urine Color Yellow 02/16/21 Unknown Urine Appearance Clear (Clear) 02/16/21 Unknown Urine pH 6.0 (4.5-7.5) 02/16/21 Unknown Ur Specific [place] 1.006 (1.000-1.030) 02/16/21 Unknown Urine Protein Negative (Negative) 02/16/21 Unknown Urine Glucose (UA) 1+ (Negative) H 02/16/21 Unknown Urine Ketones Negative (Negative) 02/16/21 Unknown Urine Nitrite Negative (Negative) 02/16/21 Unknown Ur Leukocyte Esterase Negative (Negative) 02/16/21 Unknown 02/16/21 22:14 Aerobic Blood Culture - Preliminary Blood No growth in Aerobic bottle after 48 hours. Anaerobic Blood Culture - Preliminary No growth in Anaerobic bottle after 48 hours. 02/16/21 22:14 Aerobic Blood Culture - Preliminary Blood No growth in Aerobic bottle after 48 hours. Anaerobic Blood Culture - Preliminary No growth in Anaerobic bottle after 48 hours. Laboratory Tests 02/16/21 22:46 SARS-CoV-2 (PCR) NEGATIVE Electrocardiogram Date: 02/18/21 Atrial flutter with variable A-V block with premature ventricular or aberrantly conducted complexes, rate 117 bpm Septal infarct (cited on or before 16-FEB-2021) Abnormal ECG When compared with ECG of 16-FEB-2021 22:31, No significant change Confirmed by Armand Renae ([id number]) on 02/19/2021 6:22:13 AM Chest X-Ray Date: 02/16/21 IMPRESSION: Cardiomegaly with no active disease in the chest. Echocardiogram Date: 02/17/21 Normal LV size with low-normal systolic function. EF 50-55%. No regional wall motion abnormalties. Moderate concentric LVH. No significant valvular abnormalities visualized Rhythm is atrial fulutter with RVR Compared to prior study on 10/12/2020, LV systolic function is now low-normal. Rhythm now appears to be atrial flutter with RVR.
[2021-02-19] MEDS ORDERED: CANNULA ONE (10:44)
--- NOTE | 2021-02-19 11:24 | Cardioversion ---
Date of Service February 19, 2021 PG Electrical Cardioversion Rp Electrical Cardioversion Report Procedure: DC cardioversion (elective) Indication: Atrial flutter with rapid ventricular response Anticoagulation: Heparin drip Consent: Informed written consent was obtained prior to the procedure. Sedation: Provided by Anesthesiology Time out: Performed Transesophageal echo: No left atrial thrombus visualized. Procedural details: Following transesophageal echo, and once he was sufficiently sedated, 100 joules were delivered in a synchronized fashion which successfully converted atrial flutter to sinus rhythm. He tolerated the procedure well. He remained hemodynamically stable. He was able to move all 4 extremities following the procedure. Plan: 1. Continue anticoagulation without interruption for at least 4 weeks. 2. Continue beta-felicity therapy. 3. Discontinue diltiazem drip. Coding Level of Care Code Cardioversion, elective Additional Codes Electrical Cardioversion Report ([id number])
--- NOTE | 2021-02-19 11:50 | Anesthesiology Progress Note ---
Date of Service February 19, 2021 Anesthesia Post Procedure Vital Signs Vital Signs: Temp Pulse Pulse Resp BP BP Pulse Ox 02/19/21 11:30 75 16 111/70 98 02/19/21 11:15 81 16 108/71 98 02/19/21 10:42 85 17 131/90 98 02/19/21 07:25 98.4 F 88 19 131/77 94 02/19/21 04:22 97.9 F 83 20 111/73 96 02/19/21 00:10 98.6 F 85 20 126/78 96 02/18/21 23:36 86 17 99 02/18/21 19:31 97.7 F 86 18 120/63 99 02/18/21 15:00 98.2 F 76 18 115/69 95 02/18/21 11:51 98.1 F 80 20 125/75 95 Transfer of Care Handoff Completed per policy Notes Mental Status: alert / awake / arousable and participated in evaluation Patient Amnestic to Procedure: Yes Nausea / Vomiting: adequately controlled Pain: adequately controlled Airway Patency, RR, SpO2: stable & adequate BP & HR: stable & adequate Hydration State: stable & adequate Anesthetic Complications: no major complications apparent and Pt Satisfied with anesthetic care
--- NOTE | 2021-02-19 11:53 | Cardiology Progress Note ---
Date of Service February 19, 2021 Assessment & Plan (1) Atrial flutter with rapid ventricular response: (2) CAD in [place] artery: (3) History of heart artery stent: (4) Alcohol abuse: (5) Elevated troponin: (6) Chest pain: (7) Current smoker: (8) Hypertension: (9) Hyperlipidemia: Plan: ASSESSMENT/PLAN: 1. Atrial flutter with rapid ventricular response: He underwent successful cardioversion. Continue beta-felicity on discharge. For recurrence, would c onsider atrial flutter ablation. Could also consider ablation given high risk of recurrent arrhythmia given his alcoholism and sleep apnea. Also concern for long-term anticoagulation therapy given gastric ulcers in the past and ablation could indicate the need for indefinite anticoagulation. Recommend Eliquis 5 mg twice daily on discharge with no interruption of anticoagulation therapy for at least 4 weeks following cardioversion, for stroke risk reduction. 2. Elevated troponin: Likely due to demand ischemia in the setting of atrial flutter with rapid ventricular response. Had symptoms concerning for prior angina, which have subsided. Peak troponin was 0.7. Given his history, would recommend noninvasive ischemic evaluation, which can be done as an outpatient. 3. CAD s/p LAD PCI: Had symptoms consistent with prior angina but has had similar symptoms in the past which appeared also to be due to GI etiology. No further chest discomfort with improved heart rate. Continue aspirin 81 mg daily indefinitely. Intolerant to statin therapy. Continue PCSK9 inhibitor. Continue beta-felicity and GOOD-inhibitor. 4. Alcohol abuse: Recommended that he stop consuming alcohol given significant alcohol consumption, which can lead to atrial arrhythmia such as atrial flutter. Also, we discussed the fact that alcohol can continue to cause issues such as gastritis and ulceration. 5. Tobacco abuse: Stop smoking. 6. Chest pain: Plan as above. May be related to atrial flutter with rapid ventricular response. Presentation less likely acute coronary syndrome. 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 Dhaliwal. 7. Hypertension: Blood pressure remains well controlled. No changes made today. 8. Dyslipidemia: LDL was severely elevated in September of 2020 but now at goal, less than 70, while on PCSK9 inhibitor. 9. Sleep apnea: As per primary service. He did tolerate CPAP overnight for 3 hours and stated that he is willing to try CPAP as an outpatient. 10. Disposition: Can be discharged later today from a cardiology perspective if no contraindication or new event. Patient care communicated with primary hospitalist service, Dr. Villanueva. Follow-up with Dr. Dhaliwal on discharge in 1 week. Admission and Anticipated Discharge Date Admission Date: February 17, 2021 Subjective Patient underwent cardioversion today following transesophageal echo. There was no left atrial appendage thrombus visualized. Cardioversion was successful in converting to sinus rhythm. He tolerated the procedure well. He has not had any further chest pain, shortness of breath, syncope, near-syncope, edema, or bleeding. Has only rare palpitations, prior to cardioversion. [place] well following cardioversion. His was updated via telephone. Review of systems: As above. Physical Exam Physical Exam: Gen.: No acute distress. Alert and oriented. HEENT: Anicteric sclera. Neck: Thick neck. Cardiac: No ventricular heave. Irregularly irregular with normal rate (prior to cardioversion). Normal S1-S2. No murmurs, rubs, or gallops. Pulmonary: Clear to auscultation bilaterally without wheezes, rales, or rhonchi. Abdomen: Soft, nontender, nondistended, with normoactive bowel sounds. No bruits noted. Extremities: 2+ radial pulses bilaterally. 2+ posterior tibialis pulses bilaterally. No significant pitting edema or cyanosis. Psychiatric: Affect appears appropriate. Results & Data ([facility]) Vital Signs (Past 12 Hours) Vital Signs Temp Pulse Resp BP BP Pulse Ox 02/19/21 11:30 75 16 111/70 98 02/19/21 11:15 81 16 108/71 98 02/19/21 10:42 85 17 131/90 98 02/19/21 07:25 36.9 C 88 19 131/77 94 02/19/21 04:22 36.6 C 83 20 111/73 96 02/19/21 00:10 37 C 85 20 126/78 96 Laboratory Results Laboratory Results - last 24 hr 02/19/21 08:49 APTT 47.8 H* PTT Ratio 1.8 Diagnostic Findings Transesophageal echo 02/19/2021: Preliminary review demonstrated normal LV systolic function. Trace to mild mitral regurgitation. No left atrial appendage thrombus. Cardioversion 02/19/2021: Successful conversion to sinus rhythm with 100 joules. Medications Administered Current Inpatient Medications Aspirin (Aspirin 81 Mg Ectab) 81 mg PO [facility] Stop: 03/19/21 08:59 Last Admin: 02/19/21 08:10 Dose: 81 mg Documented by: Duloxetine HCl (Duloxetine Hcl 60 Mg Cap) [facility] Stop: 03/19/21 08:59 Last Admin: 02/19/21 08:10 Dose: 60 mg Documented by: Fenofibrate (Fenofibrate Nanocrystallized 145 Mg Tablet) 145 mg PO [facility] Stop: 03/19/21 08:59 Last Admin: 02/19/21 08:11 Dose: 145 mg Documented by: Hydrochlorothiazide (Hydrochlorothiazide 25 Mg Tab) 12.5 mg PO [facility] Stop: 03/19/21 08:59 Last Admin: 02/19/21 08:10 Dose: 12.5 mg Documented by: Lorazepam (Ativan) 1 mg in 2 mls @ 2 mls/min IV ONE PRN; Protocol PRN Reason: EtoH Withdrawal AWSS 6-10 Stop: 03/19/21 02:22 Heparin Sodium/Dextrose (Heparin Sodium/Dextrose) 25,000 units in 500 mls @ 34 mls/hr IV .[id number] [facility]; Protocol Stop: 03/19/21 10:14 Last Admin: 02/19/21 05:56 Dose: 1,700 units/hr, 34 mls/hr Documented by: Diltiazem HCl 125 mg/ Dextrose 125 mls @ 10 mls/hr IV .[id number] [facility]; Protocol Stop: 03/19/21 14:14 Last Titration: 02/19/21 06:59 Dose: 10 mg/hr, 10 mls/hr Documented by: Lisinopril (Lisinopril 40 Mg Tab) 40 mg PO [facility] Stop: 03/19/21 08:59 Last Admin: 02/19/21 08:10 Dose: 40 mg Documented by: Metoprolol Succinate (Metoprolol Succ 50mg Ext Rel Tab) [facility] Stop: 03/19/21 08:59 Last Admin: 02/19/21 08:10 Dose: 50 mg Documented by: Metoprolol Tartrate (Metoprolol Tartrate 1 Mg/Ml Vial) 5 mg IV Q5M PRN PRN Reason: hr>120 Stop: 03/19/21 03:47 Last Admin: 02/17/21 05:36 Dose: 5 mg Documented by: Pantoprazole Sodium (Pantoprazole 40 Mg Tab) 40 mg PO DAILY [facility] Stop: 03/19/21 08:59 Last Admin: 02/19/21 08:10 Dose: 40 mg Documented by: Tramadol HCl (Tramadol Hcl 50 Mg Tablet) 100 mg PO BID [facility] Stop: 03/19/21 08:59 Last Admin: 02/19/21 08:12 Dose: 100 mg Documented by: PG Care Time/CCT Total # of Minutes Spent Total Time Spent with Patient: Total time spent is greater than 50% in coordination of care (as documented) at patient's floor/unit and/or counseling patient: Coding Level of Care Code 26084 Subseq Hosp Care Lvl 3 Diagnoses Atrial flutter with rapid ventricular response I48.92 CAD in [place] artery I25.10 History of heart artery stent Z95.5 Alcohol abuse F10.10 Elevated troponin R77.8 Chest pain R07.9 Current smoker F17.200 Hypertension I10 Hyperlipidemia E78.5
--- NOTE | 2021-02-19 13:11 | Discharge Summary ---
Date of Service February 19, 2021 Admission HPI Per Admitting Provider 60 yo M with hx CAD s/p bare metal stent placement, alcohol abuse, lumbar spine stenosis, BPH, who came to the ER today for acute onset chest pain. He describes the pain as being "heartburn", sharp, mid chest. Says the pain is similar to the pain he had in 2008 when he needed to get stents placed in his heart. he tried to drink some milk and creme to alleviate the pain but didn't find any improvement. He also noticed some jaw pain around the same time, and took his blood pressure and saw it was in the 90s-100s/60s which concerned him. No nausea/vomiting/diarrhea. Mild stomach bloating but no pain. No heada finesse/vision change/numbness/tingling/lightheadedness. No shortness of breath. No palpitations, just that heart rate "feels abnormal". No hx abnormal heart rhythms. notes that he has been tested for sleep apnea and has "mild" apnea, but doesn't use cpap at home. Denies apneic events, overnight SOB. Admission Exam Per Admitting Provider Constitutional: obese, in NAD, uncomfortable appearing Skin:rubrous skin coloring in upper chest and neck/head Eyes: EOMI, pupils equal and reactive bilaterally, no scleral icterus Cardiac: tachycardic, irregular rhythm, no m/r/g Pulm: CTA BL, no wheezes, rhonchi, crackles or rubs, breathing easily on room air Abd: soft, nontender, distended, normal bowel sounds, no rebound or guarding Extremities: 2+ peripheral pulses, no edema. large calves BL. negative camron's sign. Neuro: no focal deficits, moving all 4 limbs, A&Ox3 Principal Diagnosis Aflutter Discharge Exam General: Well appearing, age appropriate Heart: RRR, +S1 S2, no murmurs/gallops/rubs Lungs: cta b/l, no wheezes/rales/rhonchi Abd: soft, NT/ND, +BS Extremities: no swelling, no rashes Discharge Data Allergies Allergy/AdvReac Type Severity Reaction Status Date / Time latex Allergy Unknown Rash Verified 02/17/21 01:11 Penicillins Allergy Unknown Rash Verified 02/17/21 01:11 Fucgawd-Exa-Eob Reductase AdvReac Intermediate body aches Verified 02/17/21 01:11 Inhibitor adhesive AdvReac Unknown Rash Verified 02/17/21 01:11 gemfibrozil AdvReac Unknown BODY ACHES Verified 02/17/21 01:11 NSAIDS (Non-Steroidal AdvReac Unknown TOLD NOT Verified 02/17/21 01:11 Anti-Inflamma TO TAKE - HX STOMACH ULCER Consultations 02/17/21 00:23 ED Decision to Admit Stat 02/17/21 07:42 Consult Cardiology Routine 02/18/21 14:40 Consult Anesthesiology Routine 02/19/21 08:00 Consult Anesthesiology Routine Procedures Performed Operation Date: 02/19/21 11:00 Actual Procedures s Cardioversion - Armand Renae MD p Echo Transesophageal - Armand Renae MD Ordered Studies 02/16/21 22:08 CT angio abdomen pelvis w con Urgent CT angio chest wo/w con Urgent 02/18/21 US venous doppler UE BI Routine Hospital Course (1) Atrial flutter with rapid ventricular response: 60 yo M current smoker with hx CAD s/p stent placement, alcohol abuse, BPH, peptic ulcer disease admitted for new onset atrial flutter with rvr. Aflutter with RVR Noted on telemetry and EKG in ED. Initially started on diltiazem drip in ER without improvement. Converted to sinus rhythm and improvement in HR from 150 to 100s with metoprolol tartrate 5 mg IV x2. Converted back to aflutter. TTE EF 50- 55%, GLADYS no left atrial thrombus visualized. Patient underwent cardioversion converted to sinus rhythm, patient tolerated well no complaints. Patient started at 5mg Eliquis BID for 4 wks, can continue home dose aspirin metoprolol. Patient educated that his aflutter may spontaneously return and the next step may be ablation. Alcohol Abuse Currently drinks 6-8 beers per day. Advised to reduce ETOH intake to less than 3-4 drinks daily. Educated patient that alcohol is cardiotoxic and may have contributed to his aflutter. Elevated Lactate 2.3 in ER, down to 1.8 with heart rate control and fluids. Secondary to poor forward flow, low suspicion for infection or ischemic injury. JJ On CPAP HS in hospital, does not have at home. Likely mixed JJ + obesity hypoventilation given BMI 38. Upper extremity venous dopplers negative. Patient expressed improvement of sleep post use of CPAP. Patient advised to follow with PCP and get a sleep study, educated that JJ may have contributed to his heart strain which led to aflutter and that CPAP may help reduce his risk of recurrence. PUD Continue omeprazole daily. Would benefit from education of disease triggering foods/beverages including alcohol. Mild duodenal thickening noted on CT A/P, likely chronic. Chronic Conditions DM2: continue home regiment HTN: cont lisinopril, metoprolol, hctz CAD: cont ASA, statin Arthritis: continue home tramadol 50 bid (2) Alcohol abuse with withdrawal: (3) BPH (benign prostatic hyperplasia): (4) Current smoker: (5) CAD in [place] artery: Total Time Total Time Spent Total Time Spent (In Minutes): >30 Discharge Plan Discharge Items Patient Disposition: Home - Self-Care Reason For Visit: AFLUTTER, WITHDRAWAL Discharge Diagnosis: Aflutter Activity: Resume your previous activity Non-emergency contact: Primary Care Provider Call non-emergency contact if: your symptoms worsen and you have a fever Follow-up/Referrals: Nitish Lam MD [Primary Care Provider] - 02/23/21 11:30 am (with Sherif BEJARANO) Diet: Regular and Heart Healthy Addtl Attending Provider Instructions: You were admitted to the hospital for aflutter. Your heart was beating in an irregular rhythm, which was causing your chest discomfort. We performed cardio version on your heart, which shocked it back into a normal rhythm. To prevent the risk of blood clotting and stroke after your procedure, we are adding a blood thinner to your medication list. Please take Eliquis twice a day for 4 weeks, and follow up with your family doctor. Please see your family doctor to get a sleep study performed. You have obstructive sleep apnea, which can be contributing to the onset of your irregular heart rhythm. Obtaining a CPAP will help reduce the chance of getting aflutter again in the future and help you sleep better. Please try to reduce your alcohol intake to less than 3-4 beers daily. Alcohol is toxic to the heart, and could have contributed to the onset of your irregular heart rhythm. A discharge summary will be sent to your primary care physician to ensure continuity of care. Please bring this discharge summary with you to your next office appointment so that your provider can review it at that time. Follow-up appointments: Make a follow-up appointment with your PCP within the next week. It is very important that you follow up with them shortly after discharge from the hospital. Keep all your follow-up appointments as already scheduled. If you cannot make an appointment, notify your provider. Medications: Your medication list has been reviewed and reconciled upon discharge to ensure accuracy and continuity of care. An updated list of all your medications is included with your hospital discharge paperwork. Please review this list closely, and make note of any changes. * We sent a new medication called Eliquis to your pharmacy. Take Eliquis 5mg one tablet twice a day for 4 weeks. * Please continue taking the rest of your home medications as usual Take your medications as instructed; do not skip a dose of your medicines. Make sure all of your doctors know every medicine you are taking (including gqpb-bch-qrsfatb medicines, vitamins, and supplements). Call your primary care provider before taking any new medicines (including gwds-ces-qsplqba medicines, vitamins, and supplements), because some of these may interact with your current medications, or may make your symptoms worse. Tell your primary care provider if you cannot afford your medications. CONTACT YOUR PRIMARY CARE PROVIDER if you experience any of the following: trouble breathing, chest tightness, palpitations Difficulty following your treatment plan, or difficulty taking medications CALL 911 OR GO TO THE EMERGENCY DEPARTMENT if you experience any of the following: Sudden, severe abdominal pain or nausea/vomiting Severe chest pain, or chest pain that radiates (moves) to your jaw or arm Sudden, severe shortness of breath or difficulty breathing Thank you for allowing us to participate in your care. ACTIVITY RECOMMENDATIONS: Resume activities as tolerated with no limitations unless specified. __ No lifting over _10_ pounds for 24 hours. __ Do not engage in vigorous exercise, sexual activity, or sports for 24 hours. __ Do not drive or operate any motorized equipment for 24 hours. __ You may return to work/school tomorrow. __ Nothing to eat or drink until gag reflex returns. __ No HOT or WARM liquids for _8_ hours. __ Avoid "scratchy" foods such as potato chips or pretzels for 24 hours following procedure. SPECIAL CARE: If you experience coughing up or vomiting of blood, contact 911 Pending Studies at Discharge: No Stand-Alone Forms: [facility] [place], Smoking Cessation Medications and DC Order Prescriptions: New Eliquis 5 mg tablet 5 mg PO BID 28 Days Qty: 56 RF: 0 thiamine HCl (vitamin B1) 100 mg tablet 100 mg PO DAILY Qty: 30 RF: 0 folic acid 1 mg tablet 1,000 mcg PO DAILY Qty: 30 RF: 0 Continued metformin 500 mg tablet extended release 24 hr 2,000 mg PO QAM Qty: 360 RF: 3 glimepiride 1 mg tablet 1 mg PO QAM Qty: 90 RF: 3 fenofibrate 160 mg tablet 160 mg PO QAM Qty: 90 RF: 3 lisinopril 40 mg tablet 40 mg PO QAM Qty: 90 RF: 3 omeprazole 40 mg capsule,delayed release(DR/EC) 40 mg PO UD Qty: 30 RF: 11 tadalafil 10 mg tablet 5 mg PO QAM Qty: 45 RF: 3 metoprolol succinate 50 mg tablet extended release 24 hr 50 mg PO QAM Qty: 90 RF: 3 duloxetine 60 mg capsule,delayed release(DR/EC) 60 mg PO QAM Qty: 90 RF: 3 Praluent Pen 150 mg/mL pen injector 150 mg subcut Q14D Qty: 2 RF: 11 tramadol 50 mg tablet 100 mg PO BID Qty: 120 RF: 0 coQ10 (ubiquinol) 200 mg Capsule 200 mg PO QAM RF: 0 aspirin 81 mg Tablet,Delayed Release (Dr/Ec) 81 mg PO QAM RF: 0 hydrochlorothiazide 12.5 mg capsule 12.5 mg PO QAM RF: 0 acetaminophen 650 mg Tablet Extended Release 1,300 mg PO UD PRN (Reason: ARTHRITIS PAIN) RF: 0 clotrimazole-betamethasone 1-0.05 % cream See Rx Instructions topical BID PRN (Reason: flare ups) RF: 0 Discharge Orders: Discharge Order (Routine); Ordered 02/19/21 Ordered By: Norberto Villanueva Admission Data Admit Date/Time: 02/17/21 00:51 Attending Provider: Amandeep Salamanca Admit Provider: Noy Martinez Primary Care Provider: Nitish Lam Other Providers: Orville Conklin ; Armand Renae ; Claudia Fortune ; Russel Chaparro ; Shavon Chaparro ; Roland Morgan ; Rodger Herbert ; Marquita Ramsey ; Adelita Rees ; Luci Correa ; Roland Correa V ; Isela Candelaria ; Franny Leone ; Cele Lyons ; Claudia Barnes ; Michael Hassan ; John Baldwin ; Yamilet Harden ; Que Harden ; Angie Santa ; Rm Garcia ; Mckenzie Jean ; Karo Hackett ; Lainey Sy. ; Jose Carlos Alonzo ; Deborah Hoffman ; Mannie Goins ; Rigoberto Oviedo ; Eb Mcarthur ; Veronique Weir ; Nel Huston ; Eb Staley ; Steven Ramirez ; Tong Barron ; Dejon Corral ; Jones Corral ; Red Leon ; Mannie Burden Jr ; Nury Eugene ; Johan Goznalez ; Buster Herrera ; Kelley Roldan ; Roland Giang ; Ezra Guerrero ; Cira Guzman ; Maya Helm ; Isela Mcekon ; Emma Eller ; Lee Eller ; Isha Simmons ; Yoan Cervantes ; Cristina Thornton ; Isha Barone ; John Gates ; Claudette Cha ; Fabian White ; Dina Augustin Other Interventions: Discharge Summary Assessment (RN) Last Done: 02/19/21 16:22 Supervising Physician Co-Signing Physician Notes I personally examined the patient and verified all gerber points of history and exam, discussed case, and agree with decision making with Dr Glaser. Feeling better. Feeling up to going home. Successful cardioversion. Answered all questions to the best my ability. Vitals noted, in general he is awake and alert pleasant no distress. HEENT normocephalic atraumatic mucous membranes moist. Breathing unlabored no accessory muscle use good effort. Skin shows no rashes no pallor or icterus. Neuro without focal deficits. New onset a [place]ow sinus rhythm post cardioversion. Home on metoprolol, anticoagulation. Outpatient follow-up with cardiologyanticipate ablation at some point. Discussed alcohol cessation versus at least cutting down, discussed treating sleep apnea. Alcohol abuseno signs or symptoms of withdrawal while here, discussed cessation versus least cutting down. Thiamine and folate. Sleep apneaexpresses good understanding of the need to treat, unfortunately appears he will need a repeat sleep study since his previous one was years agowe will ask to have this arranged. Stable for home, otherwise as above. Resident Activity Tracking Resident Involvement: Resident Care Provided Care Provided: Adult Hospital Medicine
--- NOTE | 2021-02-19 14:54 | XCELERA ---
[id number] [id number]
[2021-02-19] MEDS ORDERED: APIXABAN 5 MG TABLET PO STA (16:03)
--- NOTE | 2021-02-19 17:48 | Billing Data ---
Date of Service February 19, 2021 Coding Level of Care Code D/C DAY MANAGEMENT >30 MINS
--- NOTE | 2021-02-21 05:59 | Electrocardiogram Report ---
Test Reason : Blood Pressure : / mmHG Vent. Rate : 076 BPM Atrial Rate : 076 BPM P-R Int : 144 ms QRS Dur : 082 ms QT Int : 354 ms P-R-T Axes : 000 041 028 degrees QTc Int : 398 ms Normal sinus rhythm Poor R wave progression, consider anterior RI vs. lead placement vs. LVH When compared with ECG of 18-FEB-2021 08:10, Sinus rhythm has replaced Atrial flutter Atrial fibrillation Vent. rate has decreased BY [address] no longer depressed in Inferior leads Confirmed by Armand Renae ([id number]) on 02/21/2021 5:58:35 AM Referred By: REFERRED SELF Confirmed By:Armand Renae
== END 2021-02-19 16:47 | disposition home or self-care (01) | DRG 309 ==
LOC: ED 21:34 → SUATTDRO 02-17 00:51 → 2S 02-17 00:51

== ENCOUNTER 2022-05-08 10:28 | Inpatient (IN) ==
--- NOTE | 2022-04-24 09:15 | PAT Medication Instructions ---
Medication Instructions Date of Service April 24, 2022 Home Medications Medication Instructions Recorded tadalafil 10 mg tablet 5 mg PO QAM sexual activity #45 01/08/21 tabs lisinopril 40 mg tablet 40 mg PO QAM #90 tabs 05/01/21 metformin 500 mg tablet,extended 2,000 mg PO QAM #360 tabs 05/28/21 release 24 hr glimepiride 1 mg tablet 1 mg PO QAM #90 tabs 07/09/21 fenofibrate 160 mg tablet 160 mg PO QAM #90 tabs 07/17/21 ketoconazole 2 % topical cream See Rx Instructions topical DAILY 10/15/21 #30 grams duloxetine 60 mg capsule,delayed 60 mg PO QAM #90 caps 01/21/22 release metoprolol succinate 50 mg 50 mg PO QAM #90 tabs 03/18/22 tablet,extended release 24 hr alirocumab 150 mg/mL subcutaneous 150 mg subcut Q14D #2 mL 03/21/22 pen injector (Praluent Pen) tramadol 50 mg tablet 100 mg PO BID #120 tabs 04/03/22 coQ10 (ubiquinol) 200 mg capsule 200 mg PO QAM acetaminophen 650 mg tablet,extended release 1,300 mg PO UD PRN tadalafil 10 mg tablet 5 mg PO QAM lisinopril 40 mg tablet 40 mg PO QAM metformin 500 mg tablet,extended release 24 hr 2,000 mg PO QAM glimepiride 1 mg tablet 1 mg PO QAM fenofibrate 160 mg tablet 160 mg PO QAM ketoconazole 2 % topical cream See Rx Instructions topical DAILY duloxetine 60 mg capsule,delayed release 60 mg PO QAM metoprolol succinate 50 mg tablet,extended release 24 hr 50 mg PO QAM alirocumab 150 mg/mL subcutaneous pen injector (Praluent Pen) 150 mg subcut Q14D tramadol 50 mg tablet 100 mg PO BID clopidogrel 75 mg tablet 75 mg PO QAM folic acid 400 mcg tablet 0.4 mg PO QAM mecobalamin (vitamin B12) 1,000 mcg chewable tablet 1,000 mcg PO QAM metoprolol succinate 25 mg tablet,extended release 24 hr 25 mg PO HS pantoprazole 40 mg tablet,delayed release 40 mg PO QAM ASK your prescriber and surgeon alirocumab 150 mg/mL subcutaneous pen injector (Praluent Pen) 150 mg subcut Q14D clopidogrel 75 mg tablet 75 mg PO QAM STOP taking 2 weeks before surgery coQ10 (ubiquinol) 200 mg capsule 200 mg PO QAM STOP taking 48 hours before surgery fenofibrate 160 mg tablet 160 mg PO QAM STOP taking 24 hours before surgery ketoconazole 2 % topical cream See Rx Instructions topical DAILY DO NOT take the morning of surgery tadalafil 10 mg tablet 5 mg PO QAM lisinopril 40 mg tablet 40 mg PO QAM metformin 500 mg tablet,extended release 24 hr 2,000 mg PO QAM glimepiride 1 mg tablet 1 mg PO QAM folic acid 400 mcg tablet 0.4 mg PO QAM mecobalamin (vitamin B12) 1,000 mcg chewable tablet 1,000 mcg PO QAM Take morning of surgery With a small sip of water, OTHERWISE NOTHING TO EAT OR DRINK AFTER MIDNIGHT: acetaminophen 650 mg tablet,extended release 1,300 mg PO UD PRN(if needed) duloxetine 60 mg capsule,delayed release 60 mg PO QAM metoprolol succinate 50 mg tablet,extended release 24 hr 50 mg PO QAM tramadol 50 mg tablet 100 mg PO BID pantoprazole 40 mg tablet,delayed release 40 mg PO QAM Take evening before surgery tramadol 50 mg tablet 100 mg PO BID metoprolol succinate 25 mg tablet,extended release 24 hr 25 mg PO HS Other Notes If you have any questions please call us at [phone] or [phone] or [phone] or [phone]
--- NOTE | 2022-05-02 09:40 | Anesthesiology Consultation ---
Date of Service May 02, 2022 Assessment & Plan (1) Encounter for pre-operative examination: Chart Review Chart Review: Acceptable Risk for Surgery (pending signed cardio note from 04/25/22 and PCP note from 05/03/22 ) and Patient seen in Pre Admission Testing -Awaiting signed cardio note from 04/25/22 -Awaiting PCP note from 05/03/22 - Check BSG AM DOS Pt has high pain tolerance- concerned with pain control post op Drinks >6 beers daily Per PAT appt on 05/02/22, patient denies any recent travel or large group activities. Pt tested Covid positive 03/18/22 with home test- Preop PCR Covid test done 04/26/22=negative. Pt is vaccinated for Covid. Educated on importance of using Covid precautions one week prior to surgery Teaching & Discussion Pre-Anesthesia Teaching/Discussion Notes: Instructed NPO after midnight before surgery,except medications with 15 cc of water. Medication instructions provided according to the PAT guidelines. History Surgery Operation Date: 05/08/22 12:55 Proposed Procedures p Left Femoral Endarterectomy with Patch, - Tyrese Garcia MD s Left Lower Extremity Angiogram with Lithotripsy Popliteal Artery - Tyrese Garcia MD Height/Weight Height: 5 ft 10 in Weight: 111.9 kg Allergies Allergy/AdvReac Type Severity Reaction Status Date / Time latex Allergy Unknown Rash Verified 04/25/22 15:36 Penicillins Allergy Unknown Rash Verified 04/25/22 15:36 [id number]-GTJ-[id number] Reductase AdvReac Intermediate body aches Verified 04/25/22 15:36 Inhibitor [Pcofiwz-Vnz-Ihh Reductase Inhibitor] adhesive AdvReac Unknown Rash Verified 04/25/22 15:36 gemfibrozil AdvReac Unknown BODY ACHES Verified 04/25/22 15:36 NSAIDS (Non-Steroidal AdvReac Unknown TOLD NOT Verified 04/25/22 15:36 Anti-Inflamma TO TAKE - HX STOMACH ULCER Medications Home Medications Medication Instructions Recorded Confirmed Last Taken coQ10 (ubiquinol) 200 mg capsule 200 mg PO QAM 03/16/19 04/25/22 03/10/22 06:00 acetaminophen 650 mg 1,300 mg PO UD PRN ARTHRITIS PAIN 12/06/20 04/25/22 04/09/22 12:00 tablet,extended release tadalafil 10 mg tablet 5 mg PO QAM sexual activity #45 01/08/21 04/25/22 04/03/22 15:00 tabs lisinopril 40 mg tablet 40 mg PO QAM #90 tabs 05/01/21 04/25/22 04/10/22 08:00 glimepiride 1 mg tablet 1 mg PO QAM #90 tabs 07/09/21 04/25/22 04/10/22 08:00 fenofibrate 160 mg tablet 160 mg PO QAM #90 tabs 07/17/21 04/25/22 04/10/22 08:00 ketoconazole 2 % topical cream See Rx Instructions topical DAILY 10/15/21 04/25/22 04/07/22 15:00 #30 grams duloxetine 60 mg capsule,delayed 60 mg PO QAM #90 caps 01/21/22 04/25/22 04/10/22 08:00 release metoprolol succinate 50 mg 50 mg PO QAM #90 tabs 03/18/22 04/25/22 04/10/22 08:00 tablet,extended release 24 hr alirocumab 150 mg/mL subcutaneous 150 mg subcut Q14D #2 mL 03/21/22 04/25/22 04/05/22 15:00 pen injector (Praluent Pen) tramadol 50 mg tablet 100 mg PO BID #120 tabs 04/03/22 04/25/22 04/10/22 08:00 clopidogrel 75 mg tablet 75 mg PO QAM 04/23/22 04/25/22 Unknown folic acid 400 mcg tablet 0.4 mg PO QAM 04/23/22 04/25/22 Unknown mecobalamin (vitamin B12) 1,000 1,000 mcg PO QAM 04/23/22 04/25/22 Unknown mcg chewable tablet metoprolol succinate 25 mg 25 mg PO HS 04/23/22 04/25/22 Unknown tablet,extended release 24 hr pantoprazole 40 mg tablet,delayed 40 mg PO QAM 04/23/22 04/25/22 Unknown release metformin 500 mg tablet,extended 2,000 mg PO QAM #360 tabs 04/24/22 04/25/22 Unknown release 24 hr Past Medical History Medical History (Updated 05/03/22 @ 08:52 by Maya Polanco PA-C) Alcohol abuse Pt admits to >6 beers daily Bilateral carotid artery stenosis Per 11/2021 Carotid Doppler: 50-69% stenosis of right ICA, less than 50% stenosis of left ICA, greater than 50% stenosis of right ECA Antegrade flow in both vertebral arteries CAD in [place] artery s/p LAD stent () Degenerative disc disease Diabetes mellitus, type 2 Hgb A1C 6.6 on 04/24/22 GERD (gastroesophageal reflux disease) Well controlled and stable History of anesthesia reaction WITH BACK SURGERY 2004 - DISORIENTED, PULLED CATHETER OUT ([facility]) History of anxiety History of chronic back pain Neurogenic claudication due to lumbar stenosis (had recent nerve stimulator trial- plans for permanent stimulator after revascularization of left LE) History of COVID-19 03/18/2022, home test, not hosp; sinus drainage, sinus headache, cough>resolved in 6 days. Covid test PCR 04/26/22= negative History of gastric ulcer No recent issues Hyperlipidemia Hypertension Low iron Myocardial infarction Anterolateral CT- 2008, [place], had cardiac cath; f/u [facility] Paroxysmal atrial flutter 01/2021- with excessive alcohol intake- felt to be contributing component No AC. No recurrence per PCP records Peripheral arterial disease Severe occlusive disease- reason for procedure Tolerates Plavix better than ASA Sleep apnea "Mild to moderate"-cpap Exercise / Class Metabolic Activity II 4-5 Yardwork/Stairs/Walk up hill (one flight of stairs - no chest pain or SOB ) Past Family History Family History Mother Family history of diabetes mellitus Father Family history of diabetes mellitus Denies family history of Ovarian cancer Prostate cancer Myocardial infarction Breast cancer Colorectal cancer Past Surgical History Surgical History (Updated 05/02/22 @ 10:55 by Maya Polanco PA-C) Fusion of spine CERVICAL, "HAVE 80% OF MOTION" History of colonoscopy History of esophagogastroduodenoscopy (EGD) History of heart artery stent 2006 or 2007, x1 stent, [place]; f/u [facility] History of lumbar surgery X 3 - 2005, 2006, 2019 History of nasal septoplasty History of total knee replacement RT/LEFT (LEFT REVISION) Hx of cataract extraction rt/lt. Hx of transurethral resection of prostate Past Anesthesia History No Hx of Anesthesia Complications (with exception to remote hx of confusion/disoriention with lumbar surgery - no subsequent issues ) and No Family Hx of Anesthesia Complications History of PONV No Hx of PONV and No Hx of Motion Sickness Social History Smoking Status: Current every day smoker tobacco type: cigarettes Smoking cigarettes per day: 6 cigs Do You Dip or Chew Tobacco: Yes (1 can/3-4 days; advised) Hx Alcohol Use: Yes Alcohol type: beer alcohol intake frequency: 3 or more drinks per day (>6 beers/day ) Hx Substance Use: No substance use type: does not use Review of Systems Rash to foot- no signs of infection per patient- follow with PCP 05/03/22 Patient denies chest pain, shortness of breath, dyspnea on exertion, cough, wheezing, palpitations. No hx of seizures, stroke. No hx of blood clots or blood transfusions Physical Exam Vital Signs VITALS BP 123/77 P 78 TEMP 98.4 SP02 95% RESP 16 Constitutional no acute distress ENMT Mouth: no TMJ clicking Thyromental Distance: > or= 3.5 Finger Breadths (3.5) Mallampati Class: III Neck + limited neck extension (severe ) Respiratory normal respiratory effort; no respiratory distress Auscultation: lungs clear to auscultation bilaterally; no wheezes Cardiovascular Rate/Rhythm: regular rate and regular rhythm Heart Sounds: no murmur Vessels: no carotid bruit Musculoskeletal Spine: + pain with cervical ROM (mild ) Extremities: extremities normal to inspection Psychiatric Orientation: alert Lab Results Anesthesia Preop Results Results Anesthesia Widget: WBC 6.24 K/ul (4.8-10.8) 05/02/22 Hgb 10.8 g/dl (14.0-18.0) L 05/02/22 Hct 32.3 % (40.1-51.0) L 05/02/22 Plt 300 K/uL (130-400) 05/02/22 Na 132 mmol/L (136-145) L 05/02/22 K 5.1 mmol/L (3.5-5.1) 05/02/22 Cl 95 mmol/L (98-107) L 05/02/22 CO2 28 mmol/L (21-32) 05/02/22 BUN 14 mg/dl (6-23) 05/02/22 Creat 0.90 mg/dl (0.6-1.4) 05/02/22 Glucose Level 143 mg/dl (70-99(Fasting)) H 05/02/22 PT 10.8 Seconds (9.0-12.0) 05/02/22 PTT 27.5 Seconds (21.0-31.0) 05/02/22 INR 1.0 (0.9-1.1) 05/02/22 HA1c 6.6 % (4.5-5.6) H 04/24/22 Blood Type O Positive 05/02/22 Antibody Screen NEGATIVE 05/02/22 Testing Electrocardiogram Date: 05/02/22 Unusual P axis, possible ectopic rhythm at 77bpm When compared to EKG from Feb 19, 2021- no significant change per cardio. Chest X-Ray Date: 05/02/22 Findings: + NAD Echocardiogram Date: 02/17/21 Other Findings: no diastolic dysfunction GLADYS Normal LV size with low-normal systolic function. EF 50-55%. No regional wall motion abnormalities. Moderate concentric LVH. No significant valvular abnormalities visualized Rhythm is atrial flutter with RVR Compared to prior study on 10/12/2020, LV systolic function is now low-normal. Rhythm now appears to be atrial flutter with RVR. Other Testing Carotid doppler 12/06/21= 50-69% stenosis of right ICA, <50% stenosis of left ICA, >50% stenosis of right ECA. Antegrade flow in both vertebral arteries. No significant change since 10/06/20. COVID-19 Risk Screen Screening Information COVID-19 Screen Date: 05/02/22 Exposure 21 Days Family/Household +COVID Last 21 Days: No Exposure 10 Days Any COVID Exposure Last 10 Days: No Symptoms Last 10 Days Experienced COVID Sx Last 10 Days: No + COVID 0-90 Days COVID + in Last 0-90 Days: Yes + COVID Test 0-10 Day: No + COVID Test 11-90 Day: Yes Date/Place of COVID-19 Test: 03/18/22 Home test What were Your COVID-19 Symptoms: Nasal drainage, sinus headache, coughing Currently Having Symptoms Related to COVID: No Were You Hospitalized due to COVID-19 and Where: No COVID Testing Site COVID-19 Preop/Pre-Procedure Testing Site: [facility] (04/26/22= negative PCR ) Risk Plan COVID Risk Plan: Last 11-90D + CoV Test Patient Education COVID Preop Screening Education Complete: Yes
[~2022-05-08 10:28] MED LIST changes: -CLINDAMYCIN 600 MG/54 ML BAG IV SCH; +CLINDAMYCIN/D5W 900 MG/50 ML BAG IV SCH; +ESMOLOL HCL INJ 10 MG/ML 10ML VIAL IV ONE; -GABAPENTIN 600 MG DOSE PO SCH; -ROCURONIUM BROMIDE 10 MG/ML 5 ML VIAL ONE; +SODIUM CHLORIDE 0.9% 1000ML 1,000 ML IV SCH; -SODIUM CHLORIDE 0.9% 250 ML IV PRN
[2022-05-08 11:24] LABS: BUN Creatinine Ratio 15.1 (10-20); Calcium 9.3 mg/dl (8.5-10.1); Creatinine Clr Calc Pharmacy 108.7 ml/min; Est GFR (African American) 106.2 ml/min; Est GFR (Non-African American) 91.6 ml/min; Potassium 4.6 mmol/L (3.5-5.1)
--- NOTE | 2022-05-08 12:33 | History & Physical Report ---
Date of Service May 08, 2022 History of Present Illness Primary Care Provider: Nitish Lam MD [facility] [id number] History & Physical Report Signed with Moi Patient:RAKEL GAXIOLA JR Admit Date:04/03/22 MR#:[id number] Att Phy:Tyrese Garcia M.D. Acct ID:[id number] Tina Phy:Nitish Lam MD Date:1960 Fam Phy: Age:62 Location:[facility] Sex:M Room/Bed: cc: ~ *NOTICE TO RECEIVING GREEN PARTY/AGENCY This information is strictly Confidential and protected under [place] law. [place] law prohibits you from making any further disclosure of this information unless further disclosure is expressly permitted by the written consent of the person to whom it pertains or is authorized by law. A general authorization for the release of medical or other information is not sufficient for this purpose. Hospital accepts no responsibility if the information is made available to any other person, INCLUDING THE PATIENT. ADDENDUM 04/10/22 075ddendum April 10, 2022 07:52 Patient does appear to have chronic symptoms of neuropathy/neurogenic claudication. Additionally he also has developed left calf claudication symptoms which seem to be consistent with arterial insufficiency. It is likely that he has a combination of neurogenic and arterial symptoms. His imaging does demonstrate significant disease. We recommends that the patient consider undergoing an aortogram with runoff and possible left leg arterial intervention. We did discuss with the patient that this would likely only alleviate the left calf claudication and that he would likely continue to have the numbness tingling and other pain symptoms that he is experiencing due to his neurogenic issues. Patient expresses understanding of this. The procedure, risks, benefits, and alternatives were discussed. Patient understood and agreed to the procedure. Addendum Signed By: <Electronically signed by Tyrese Garcia MD> 04/10/22753 Addendum Cosigned By: Created: 04/10/22 Date of Service April 10, 2022 History of Present Illness Chief Complaint: Left leg claudication Primary Care Provider: Nitish Lam MD History of Present Illness I the pleasure of seeing Rakel today for evaluation of his left lower extremity claudication. As you know he is a 61-year-old gentleman who in 2020 had back surgery. He does complain of discomfort in his buttocks hips and after his surgery was shooting down to his lateral aspect of his left leg with tingling in his toes. Over the last 10 months he has developed pain in his left calf when walking. He claims he has to walk at a slow pace or flat-footed and he can walk a little further. If he did not walk flat-footed or at a slow pace he could probably make it 30 or 40 feet before he has to stop. He does complain of cramping at night but no distinct pain at night in his foot. Denies any ulcerations of either lower extremity. He denies any pain in his right lower extremity associated with walking. He did have an ultrasound which showed a occlusive lesion in the left lower extremity at the popliteal level and a stenotic region also in the groin level. He claims he has had this study yearly and this year it is changed from what it was previously. He does have a history of hypertension, dyslipidemia, and diabetes. He does have coronary occlusive disease and has 2 coronary stents placed in 2008. He did have a history of history of met in 2020 of having atrial flutter. This was attributed to excessive alcohol intake at that time. He also has a history of carotid artery occlusive disease which is asymptomatic and is in the range of 50 to 69%. Review of Systems 10 systems were reviewed. The only positive findings was an irregular heartbeat other than that the other positive findings are in his HPI. Physical Exam Vitals & Measurements HR: 94 (Monitored) BP: 174/60 SpO2: 97% WT: 108.4 kg Input and Output - Last 24 hours (Last 8 hours) No I/O Data Found: On exam patient is awake alert oriented x3. Is no apparent distress. His blood pressure is 182/62 on the left and 174/60 on the right. His radials carotids and supratemporal's are +2 bilaterally. No carotid bruits lungs are clear his heart had a regular rate and rhythm on exam today. Abdominal exam is benign I cannot appreciate a widened aortic pulse. Femoral pulses are +2 bilaterally. Right lower extremity has +1 dorsalis pedis and posterior tibial pulses. Left lower extremity cannot appreciate pulses below the groin. He does have slight decreased capillary refill on the left when compared to the right. His musculature of his left lower extremity is also smaller than the musculature on the right most likely neurogenic in origin. Neurologic exams however is grossly intact to motor and sensory function. Assessment/Plan 1. Atherosclerosis of [place] arteries of extremities with intermittent claudication, left leg At this point I think he has a combination of neurogenic and arterial claudication of the lower extremities. He has the left leg has a significant contribution from his vascular disease for his claudication of the calf. I did order a CT angiogram to get a better idea of the lesions of the left lower extremity. Further treatment will be determined by the results of the CAT scan. Thank you very much for letting us participate in the care of this patient. Allergies Allergy/AdvReac Type Severity Reaction Status Date / Time latex Allergy Unknown Rash Verified 10/19/21 09:15 Penicillins Allergy Unknown Rash Verified 10/19/21 09:15 Erelefv-LWX-CgN Reductase AdvReac Intermediate body aches Verified 10/19/21 09:15 Inhibitor [Zyyveav-Cqe-Vvi Reductase Inhibitor] adhesive AdvReac Unknown Rash Verified 10/19/21 09:15 gemfibrozil AdvReac Unknown BODY ACHES Verified 10/19/21 09:15 NSAIDS (Non-Steroidal AdvReac Unknown TOLD NOT Verified 10/19/21 09:15 Anti-Inflamma TO TAKE - HX STOMACH ULCER Home Medications Medication Instructions Recorded Confirmed Type coQ10 (ubiquinol) 200 mg capsule 200 mg PO QAM 03/16/19 2 History acetaminophen 650 mg 1,300 mg PO UD PRN ARTHRITIS PAIN 12/06/2011/07 History tablet,extended release tadalafil 10 mg tablet 5 mg PO QAM sexual activity #45 01/08/2110/24 Rx tabs clotrimazole-betamethasone 1 See Rx Instructions topical BID 02/17/21 11/07/21 History %-0.05 % topical cream PRN flare ups folic acid 1 mg tablet 200 mcg PO DAILY 02/27/21 11/07/21 History thiamine HCl (vitamin B1) 100 mg 250 mg PO DAILY 02/27/21 2 History tablet lisinopril 40 mg tablet 40 mg PO QAM #90 tabs 05/01/21 11/07/21 Rx metformin 500 mg tablet,extended 2,000 mg PO QAM #360 tabs 05/28/21 0 11/07/21 Rx release 24 hr metoprolol succinate 25 mg 25 mg PO .COMPLEX #90 tabs 05/28/21 Rx tablet,extended release 24 hr glimepiride 1 mg tablet 1 mg PO QAM #90 tabs 07/09/21 11/07/21 Rx fenofibrate 160 mg tablet 160 mg PO QAM #90 tabs 07/17/21 11/07/21 Rx ketoconazole 2 % topical cream See Rx Instructions topical DAILY 10/15/21 11/07/21 Rx #30 grams mecobalamin (vitamin B12) 1,000 1,000 mcg PO DAILY #30 tabs 10/16/21 11/07/21 Rx mcg chewable tablet aspirin 81 mg tablet,delayed 81 mg PO .every other day 11/07/2111/07 History release omeprazole 40 mg capsule,delayed See Rx Instructions .Route 01/15/22 Rx release .COMPLEX #30 caps duloxetine 60 mg capsule,delayed 60 mg PO QAM #90 caps 01/21/22 Rx release metoprolol succinate 50 mg 50 mg PO QAM #90 tabs 03/18/22 Rx tablet,extended release 24 hr alirocumab 150 mg/mL subcutaneous 150 mg subcut Q14D #2 mL 03/21/22 Rx pen injector (Praluent Pen) tramadol 50 mg tablet 100 mg PO BID #120 tabs 04/03/22 Rx Past Med/Surg History Medical History Alcohol abuse with withdrawal Atrial flutter with rapid ventricular response CAD in [place] artery Chest pain Degenerative disc disease Diabetes mellitus, type 2 Elevated troponin GERD (gastroesophageal reflux disease) History of anesthesia reaction History of gastric ulcer Hyperlipidemia Hypertension Low iron Myocardial infarction Osteoarthritis Sleep apnea Surgical History Fusion of spine History of colonoscopy History of esophagogastroduodenoscopy (EGD) History of heart artery stent History of lumbar surgery History of nasal septoplasty History of total knee replacement Hx of transurethral resection of prostate Family History Mother Family history of diabetes mellitusFather Family history of diabetes mellitusDenies family history of Ovarian cancer Prostate cancer Myocardial infarction Breast cancer Colorectal cancer Social History Smoking Status: Current every day smoker Tobacco Type: Cigarettes Age Started Using Tobacco: 18; Cigarettes Per Day: 6; Second Hand Exposure: No; Hx Alcohol Use: Yes Alcohol type: beer Alcohol type Comment: 6-8 beers Hx Substance Use: No Preferred Language: [place] Communication Ability: Effective Visual Impairment: No Limitations Derrick Man Required: No Beliefs That Will Affect Care: None marital status: Current Living Situation: Spouse How many Children do You have: 4 Feels Safe at Home: Yes Childhood Exposure to Second-Hand Smoke: Yes Dental Care, Regularly: Yes Physical Activity Frequency: Does not Exercise Seatbelt Use: always Sunscreen Use: No Assistive Devices: Cane and Walker Signed By: <Electronically signed by Tyrese Garcia MD> 04/10/22751 Created:04/10/22 075 The status of this report isSigned. Draft = Not yet reviewed or approved by Medical Physician. Signed = Reviewed and approved by Medical Physician. Allergies Allergy/AdvReac Type Severity Reaction Status Date / Time latex Allergy Unknown Rash Verified 05/08/22 10:53 Penicillins Allergy Unknown Rash Verified 05/08/22 10:53 Xacirno-JKP-VsA Reductase AdvReac Intermediate body aches Verified 05/08/22 10:53 Inhibitor [Dfbcthv-Bgg-Mqi Reductase Inhibitor] adhesive AdvReac Unknown Rash Verified 05/08/22 10:53 gemfibrozil AdvReac Unknown BODY ACHES Verified 05/08/22 10:53 NSAIDS (Non-Steroidal AdvReac Unknown TOLD NOT Verified 05/08/22 10:53 Anti-Inflamma TO TAKE - HX STOMACH ULCER Home Medications Medication Instructions Recorded Confirmed Type coQ10 (ubiquinol) 200 mg capsule 200 mg PO QAM 03/16/19 05/08/22 History acetaminophen 650 mg 1,300 mg PO UD PRN ARTHRITIS PAIN 12/06/20 05/08/22 History tablet,extended release lisinopril 40 mg tablet 40 mg PO QAM #90 tabs 05/01/21 05/08/22 Rx glimepiride 1 mg tablet 1 mg PO QAM #90 tabs 07/09/21 05/08/22 Rx fenofibrate 160 mg tablet 160 mg PO QAM #90 tabs 07/17/21 05/08/22 Rx ketoconazole 2 % topical cream See Rx Instructions topical DAILY 10/15/21 05/03/22 Rx #30 grams duloxetine 60 mg capsule,delayed 60 mg PO QAM #90 caps 01/21/22 05/08/22 Rx release metoprolol succinate 50 mg 50 mg PO QAM #90 tabs 03/18/22 05/08/22 Rx tablet,extended release 24 hr alirocumab 150 mg/mL subcutaneous 150 mg subcut Q14D #2 mL 03/21/22 05/08/22 Rx pen injector (Praluent Pen) tramadol 50 mg tablet 100 mg PO BID #120 tabs 04/03/22 05/08/22 Rx clopidogrel 75 mg tablet 75 mg PO QAM 04/23/22 05/08/22 History folic acid 400 mcg tablet 0.4 mg PO QAM 04/23/22 05/08/22 History mecobalamin (vitamin B12) 1,000 1,000 mcg PO QAM 04/23/22 05/03/22 History mcg chewable tablet metoprolol succinate 25 mg 25 mg PO HS 04/23/22 05/08/22 History tablet,extended release 24 hr pantoprazole 40 mg tablet,delayed 40 mg PO QAM 04/23/22 05/08/22 History release metformin 500 mg tablet,extended 2,000 mg PO QAM #360 tabs 04/24/22 05/08/22 Rx release 24 hr oxycodone-acetaminophen 5 mg-325 1 tab PO Q6H PRN pain #30 tabs 05/03/22 05/08/22 Rx mg tablet (Percocet) triamcinolone acetonide 0.1 % 1 applic topical BID #30 grams 05/07/22 Rx topical cream Past Med/Surg History Medical History Alcohol abuse Pt admits to >6 beers daily Bilateral carotid artery stenosis Per 11/2021 Carotid Doppler: 50-69% stenosis of right ICA, less than 50% stenosis of left ICA, greater than 50% stenosis of right ECA Antegrade flow in both vertebral arteries CAD in [place] artery s/p LAD stent () Degenerative disc disease Diabetes mellitus, type 2 Hgb A1C 6.6 on 04/24/22 GERD (gastroesophageal reflux disease) Well controlled and stable History of anesthesia reaction WITH BACK SURGERY 2004 - DISORIENTED, PULLED CATHETER OUT ([facility]) History of anxiety History of chronic back pain Neurogenic claudication due to lumbar stenosis (had recent nerve stimulator trial- plans for permanent stimulator after revascularization of left LE) History of COVID-19 03/18/2022, home test, not hosp; sinus drainage, sinus headache, cough>resolved in 6 days. Covid test PCR 04/26/22= negative History of gastric ulcer No recent issues Hyperlipidemia Hypertension Low iron Myocardial infarction Anterolateral [place]- 2008, [place], had cardiac cath; f/u [facility] Paroxysmal atrial flutter 01/2021- with excessive alcohol intake- felt to be contributing component No AC. No recurrence per PCP records Peripheral arterial disease Severe occlusive disease- reason for procedure Tolerates Plavix better than ASA Sleep apnea "Mild to moderate"-cpap Sore throat Surgical History Fusion of spine CERVICAL, "HAVE 80% OF MOTION" History of colonoscopy History of esophagogastroduodenoscopy (EGD) History of heart artery stent 2006 or 2007, x1 stent, [place]; f/u [facility] History of lumbar surgery X 3 - 2004, 2006, 2019 History of nasal septoplasty History of total knee replacement RT/LEFT (LEFT REVISION) Hx of cataract extraction rt/lt. Hx of transurethral resection of prostate Family History Mother Family history of diabetes mellitus Father Family history of diabetes mellitus Denies family history of Ovarian cancer Prostate cancer Myocardial infarction Breast cancer Colorectal cancer Social History Smoking Status: Current every day smoker Tobacco Type: Cigarettes Age Started Using Tobacco: 18; Cigarettes Per Day: 6-10; Second Hand Exposure: Yes ( smokes); Do You Dip or Chew Tobacco: Yes (1 can/3-4 days; advised); Tobacco Cessation Education Requested by Patient: No Hx Alcohol Use: Yes Alcohol type: beer Alcohol type Comment: 6-8 beers Hx Substance Use: No Preferred Language: [place] Communication Ability: Effective Visual Impairment: No Limitations Derrick Man Required: No Beliefs That Will Affect Care: None marital status: Current Living Situation: Spouse How many Children do You have: 4 Other Information That Helps Us Care for You: No Feels Safe at Home: Yes Safety Concerns: Feels Safe At This Time Childhood Exposure to Second-Hand Smoke: Yes Dental Care, Regularly: Yes Physical Activity Frequency: Does not Exercise Seatbelt Use: always Sunscreen Use: No Assistive Devices: Cane and CPAP Results & Data ([facility]) Vital Signs (Past 12 Hours) Vital Signs Temp Pulse Resp BP BP Pulse Ox O2 Del Method 05/08/22 11:04 36.9 C 78 18 134/74 150/80 H 95 Room Air
--- NOTE | 2022-05-08 12:34 | History & Physical Bridge Note ---
Date of Service May 08, 2022 History & Physical Bridge Note I have examined the patient, reviewed the History & Physical and in the interval since the performance of the History & Physical I have noted the following changes of clinical significance: no changes noted
[2022-05-08] MEDS ORDERED: LIDOCAINE 1% LOCAL 20 ML VIAL ONE (12:53)
[2022-05-08] MEDS ORDERED: BUPIVACAINE/EPINEPHRINE 0.5% MPF 1:200,000 30 ML VIAL ONE (12:53)
[2022-05-08] MEDS ORDERED: GELATIN SPONGE SZ 100 ONE (12:53)
[2022-05-08] MEDS ORDERED: THROMBIN FOR SOLN 20000 UNIT KIT ONE (12:53)
[2022-05-08] MEDS ORDERED: ceFAZolin 330 MG/ML 1 GM VIAL ONE (12:53)
[2022-05-08] MEDS ORDERED: HEPARIN (PORCINE) 1000 UNIT/ML 10 ML (CATH LAB USE ONLY) ONE (12:53)
[2022-05-08] MEDS ORDERED: PAPAVERINE HCL INJ 30 MG/ML 2 ML VIAL ONE (12:53)
[2022-05-08] MEDS ORDERED: PROPOFOL IV EMULSION 10 MG/ML 20 ML VIAL IV ONE (13:28)
[2022-05-08] MEDS ORDERED: ONDANSETRON INJ 2 MG/ML 2 ML VIAL ONE (13:28)
[2022-05-08] MEDS ORDERED: fentaNYL citrate 100 MCG/2 ML VIAL ONE ×2 (13:28→14:29)
[2022-05-08] MEDS ORDERED: DEXAMETHASONE SOD INJ 4 MG/ML VIAL ONE (13:28)
[2022-05-08] MEDS ORDERED: LIDOCAINE 2% MPF LOCAL 5 ML VIAL INFIL ONE (13:28)
[2022-05-08] MEDS ORDERED: MIDAZOLAM HCL 1 MG/ML 2ML VIAL ONE (13:28)
[2022-05-08] MEDS ORDERED: HEPARIN SOD (PORCINE) 1000 UNIT/ML ONE ×2 (13:43→16:06)
[2022-05-08] MEDS ORDERED: ePHEDrine sulfate 50 MG/ML AMP IV PRN (14:17)
[2022-05-08] MEDS ORDERED: ONDANSETRON INJ 2 MG/ML 2 ML VIAL IV PRN ×2 (14:17→18:01)
[2022-05-08] MEDS ORDERED: PROMETHAZINE HCL 6.25 MG in SODIUM CHLORIDE 0.9% 50 ML IV PRN (14:17)
[2022-05-08] MEDS ORDERED: ATROPINE SULFATE 0.1 MG/ML 10ML SYR IV PRN (14:17)
[2022-05-08] MEDS ORDERED: PHENYLEPHRINE HCL 10 MG/ML VIAL ONE (14:39)
[2022-05-08] MEDS ORDERED: KETAMINE 50 MG/5 ML SYRINGE ONE (14:47)
[2022-05-08] MEDS ORDERED: HYDROmorphone INJ 2 MG/ML SYR/VIAL ONE ×2 (15:18→17:18)
[2022-05-08] MEDS ORDERED: PROTAMINE SULFATE 10 MG/ML 5 ML VIAL IV ONE (16:06)
[2022-05-08] MEDS ORDERED: VISIPAQUE IV PRN (16:09)
--- NOTE | 2022-05-08 16:49 | Post Operative Brief Note ---
Immediate Post Op Note v1 Date of Surgery May 08, 2022 Pre & Post Diagnosis Operation Date: 05/08/22 13:00 Pre-Op Diagnosis: Severe stenosis of his left common femoral artery, short occlusion in the distal superficial femoral artery proximal popliteal artery. 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 I identified the patient and participated in the time-out.: Yes Procedure Operation Date: 05/08/22 13:00 Actual Procedures p Left Femoral Endarterectomy with Bovine Patch,(Left) - Tyrese Garcia MD s Left Lower Extremity Angiogram with Lithotripsy Popliteal and superficial femoral artery Artery(Left) - Tyrese Garcia MD Surgeon Tyrese Garcia MD Manager Occupational Chanda,PAC Estimated Blood Loss 100 Findings Consistent with Post-Op Diagnosis Drains Rodríguez Catheter Anesthesia Type General Complications none Disposition Accompanied Patient To Recovery: No Disposition: Recovery Room
[2022-05-08] MEDS: fentaNYL citrate 100 MCG/2 ML VIAL IV PRN ×4 (16:59→17:14)
[2022-05-08] MEDS: HYDROmorphone INJ 0.5 MG/0.5 ML SYR IV PRN ×2 (17:19→17:24)
--- NOTE | 2022-05-08 17:51 | Anesthesiology Progress Note ---
Date of Service May 08, 2022 Anesthesia Post Procedure Vital Signs Vital Signs: Temp Pulse Resp BP BP Pulse Ox O2 Del Method 05/08/22 17:35 36.4 C L 81 16 125/68 99 Oxymask 05/08/22 17:25 85 16 132/80 100 Oxymask 05/08/22 17:15 80 16 156/82 H 99 Oxymask 05/08/22 17:05 80 18 159/87 H 100 Oxymask 05/08/22 16:48 36.4 C L 84 18 183/89 H 100 Oxymask 05/08/22 11:04 36.9 C 78 18 134/74 150/80 H 95 Room Air O2 Flow Rate 05/08/22 17:35 5 05/08/22 17:25 5 05/08/22 17:15 5 05/08/22 17:05 5 05/08/22 16:48 5 05/08/22 11:04 Pain Intensity Left Foot: Pain Intensity: 8 Transfer of Care Handoff Completed per policy Notes Mental Status: alert / awake / arousable and participated in evaluation Patient Amnestic to Procedure: Yes Nausea / Vomiting: adequately controlled Pain: adequately controlled Airway Patency, RR, SpO2: stable & adequate BP & HR: stable & adequate Hydration State: stable & adequate Anesthetic Complications: no major complications apparent and Pt Satisfied with anesthetic care
[2022-05-08] MEDS ORDERED: PHARMACY GLYCEMIC MGMT CONSULT PRN (18:01)
[2022-05-08] MEDS ORDERED: ACETAMINOPHEN 325 MG TAB PO PRN (18:55)
[2022-05-08] MEDS: oxyCODONE/ACETAMINOPHEN 5mg/325mg TAB PO PRN (19:02)
[2022-05-08] MEDS ORDERED: GLUCOSE 10 TAB/TUBE PO PRN (19:15)
[2022-05-08] MEDS ORDERED: GLUCOSE 40% GEL 15 GM TUBE PO PRN (19:15)
[2022-05-08] MEDS ORDERED: CARBOHYDRATES FOR HYPOGLYCEMIA PO PRN (19:15)
[2022-05-08] MEDS ORDERED: GLUCAGON FOR INJ 1 MG VIAL IM PRN (19:15)
[2022-05-08] MEDS ORDERED: DEXTROSE 50% 50 ML SYRINGE IV PRN (19:15)
[2022-05-08] MEDS: D5W AND 1/2NSS 1,000 ML IV SCH ×2 (19:30→21:01)
--- NOTE | 2022-05-08 19:34 | Critical Care Consultation ---
Date of Consultation May 08, 2022 Assessment & Plan (1) Statin intolerance: (2) Contact dermatitis: (3) PAD (peripheral artery disease): (4) Neuropathy: (5) Bilateral carotid artery stenosis: (6) Paroxysmal atrial flutter: (7) Current smoker: (8) Sleep apnea: (9) Diabetes mellitus, type 2: Plan Reason Critically Ill: 62 YOM s/p Vascular endarterectomy of left femoral with patch. To ICU for postoperative monitoring. Neuro - Nueropathy legs, Depression CAM ICU: Negative - Continue Duloxetine, hold Tramadol as you have - Acute pain control with Dilaudid for severe pain and oxycodone/tylenol for mild to moderate pain Cardiac - HX CAD, PAF, HTN, HLD, PAD - history of statin intolerance continue home fenofibrate - Continue GOOD as long as renal indices remain normal - ECG preoperative reviewed- telemetry overnight- ECG for any anginal complaints - electrolyte protocol - PAD- ASA/Plavix per vascular Respiratory - JJ, - Continue home CPAP- 13 cm H20 at home- use while napping and/or sleeping GI - GERD - Continue with PPI RENAL/LYTES - No acute needs - ICU electrolyte protocol - - No acute needs [] ENDO - DM II - Hold oral agents - ICU hyperglycemic protocol goal <180mg/dl HEME - No acute needs ID - Contact Dermatitis - Present prior to admission from soaking foot and using a menthol cream at home- continue ketoconazole cream currently ordered LINES/IV ACCESS - PIV- continue use of these lines DVT PROPHYLAXIS - SCDs, ASA/PLavix DISPO: ICU overnight for vascular checks and hemodyanmics I have personally spent 40 minutes of critical care time in the direct management of this patient. This is a life/limb threatening event. This includes time spent evaluating patient, direct bedside care, chart review, placing orders, interpretation of diagnostic studies, discussion with consultants, patient, and family members, as well as other required patient management activities. This time is exclusive of all separately billable procedures, and separate from and in addition to any other critical care service time. Thank you for allowing us to participate in the care of this patient. Please refer to my attending physician's documentation for any further recommendations. History of Present Illness Reason for Consultation: S/P left femoral endarterectomy with bovie patch Requesting Physician: DR. Simoni Attending Physician: Tyrese Garcia MD History of Present Illness 62 YOM s/p left femoral endarterectomy with bovine patch performed on 05/08/22. Patient recovered and transferred to ICU for continuation of care. Airway was managed with LMA during the case, with GA, Ketamine, Midazolam and Fentanyl. Patient was evaluated in the ICU. Patient is awake, not on supplemental oxygen, and hemodynamics are regular without any vasoactive or rate controlling medications on. His left leg is warm and pulses are palpable and dopplerable. Will add on his home CPAP for when he is sleeping, napping. Patient has medical history of CAD- stent [id number], history of PAF- last reported episode 2020- underwent cardioversion and is not on any chronic anti coagulation, Stable Carotid Artery Stenosis- last imaged 04/16, HTN, HLD, DMII, JJ, chronic neuropathic pain and PAD. Reports no anginal symptom. Allergies Allergy/AdvReac Type Severity Reaction Status Date / Time latex Allergy Unknown Rash Verified 05/08/22 10:53 Penicillins Allergy Unknown Rash Verified 05/08/22 10:53 Udgpyke-STZ-HxP Reductase AdvReac Intermediate body aches Verified 05/08/22 10:53 Inhibitor [Flzpdvt-Ruh-Rtq Reductase Inhibitor] adhesive AdvReac Unknown Rash Verified 05/08/22 10:53 gemfibrozil AdvReac Unknown BODY ACHES Verified 05/08/22 10:53 NSAIDS (Non-Steroidal AdvReac Unknown TOLD NOT Verified 05/08/22 10:53 Anti-Inflamma TO TAKE - HX STOMACH ULCER Home Medications Medication Instructions Recorded Confirmed Type coQ10 (ubiquinol) 200 mg capsule 200 mg PO QAM 03/16/19 05/08/22 History acetaminophen 650 mg 1,300 mg PO UD PRN ARTHRITIS PAIN 12/06/20 05/08/22 History tablet,extended release lisinopril 40 mg tablet 40 mg PO QAM #90 tabs 05/01/21 05/08/22 Rx glimepiride 1 mg tablet 1 mg PO QAM #90 tabs 07/09/21 05/08/22 Rx fenofibrate 160 mg tablet 160 mg PO QAM #90 tabs 07/17/21 05/08/22 Rx ketoconazole 2 % topical cream See Rx Instructions topical DAILY 10/15/21 Rx #30 grams duloxetine 60 mg capsule,delayed 60 mg PO QAM #90 caps 01/21/22 05/08/22 Rx release metoprolol succinate 50 mg 50 mg PO QAM #90 tabs 03/18/22 05/08/22 Rx tablet,extended release 24 hr alirocumab 150 mg/mL subcutaneous 150 mg subcut Q14D #2 mL 03/21/22 05/08/22 Rx pen injector (Praluent Pen) tramadol 50 mg tablet 100 mg PO BID #120 tabs 04/03/22 05/08/22 Rx clopidogrel 75 mg tablet 75 mg PO QAM 04/23/22 05/08/22 History folic acid 400 mcg tablet 0.4 mg PO QAM 04/23/22 05/08/22 History mecobalamin (vitamin B12) 1,000 1,000 mcg PO QAM 04/23/22 05/03/22 History mcg chewable tablet metoprolol succinate 25 mg 25 mg PO HS 04/23/22 05/08/22 History tablet,extended release 24 hr pantoprazole 40 mg tablet,delayed 40 mg PO QAM 04/23/22 05/08/22 History release metformin 500 mg tablet,extended 2,000 mg PO QAM #360 tabs 04/24/22 05/08/22 Rx release 24 hr oxycodone-acetaminophen 5 mg-325 1 tab PO Q6H PRN pain #30 tabs 05/03/22 05/08/22 Rx mg tablet (Percocet) triamcinolone acetonide 0.1 % 1 applic topical BID #30 grams 05/07/22 Rx topical cream Patient History Medical History Alcohol abuse Pt admits to >6 beers daily Bilateral carotid artery stenosis Per 11/2021 Carotid Doppler: 50-69% stenosis of right ICA, less than 50% stenosis of left ICA, greater than 50% stenosis of right ECA Antegrade flow in both vertebral arteries CAD in [place] artery s/p LAD stent () Degenerative disc disease Diabetes mellitus, type 2 Hgb A1C 6.6 on 04/24/22 GERD (gastroesophageal reflux disease) Well controlled and stable History of anesthesia reaction WITH BACK SURGERY 2004 - DISORIENTED, PULLED CATHETER OUT ([facility]) History of anxiety History of chronic back pain Neurogenic claudication due to lumbar stenosis (had recent nerve stimulator trial- plans for permanent stimulator after revascularization of left LE) History of COVID-19 03/18/2022, home test, not hosp; sinus drainage, sinus headache, cough>resolved in 6 days. Covid test PCR 04/26/22= negative History of gastric ulcer No recent issues Hyperlipidemia Hypertension Low iron Myocardial infarction Anterolateral [place]- 2009, [place], had cardiac cath; f/u asa [facility] Paroxysmal atrial flutter 01/2021- with excessive alcohol intake- felt to be contributing component No AC. No recurrence per PCP records Peripheral arterial disease Severe occlusive disease- reason for procedure Tolerates Plavix better than ASA Sleep apnea "Mild to moderate"-cpap Sore throat Surgical History Fusion of spine CERVICAL, "HAVE 80% OF MOTION" History of colonoscopy History of esophagogastroduodenoscopy (EGD) History of heart artery stent 2006 or 2007, x1 stent, [place]; f/u asa [facility] History of lumbar surgery X 3 - 2004, 2006, 2019 History of nasal septoplasty History of total knee replacement RT/LEFT (LEFT REVISION) Hx of cataract extraction rt/lt. Hx of transurethral resection of prostate Family History Mother Family history of diabetes mellitus Father Family history of diabetes mellitus Denies family history of Ovarian cancer Prostate cancer Myocardial infarction Breast cancer Colorectal cancer Social History Smoking Status: Current every day smoker Tobacco Type: Cigarettes Age Started Using Tobacco: 18; Cigarettes Per Day: 6-10; Second Hand Exposure: Yes ( smokes); Do You Dip or Chew Tobacco: Yes (1 can/3-4 days; advised); Tobacco Cessation Education Requested by Patient: No Hx Alcohol Use: Yes Alcohol type: beer Alcohol type Comment: 6-8 beers Hx Substance Use: No Preferred Language: Surinamese Communication Ability: Effective Visual Impairment: No Limitations Android Ui Developer Required: No Beliefs That Will Affect Care: None marital status: Current Living Situation: Spouse How many Children do You have: 4 Other Information That Helps Us Care for You: No Feels Safe at Home: Yes Safety Concerns: Feels Safe At This Time Childhood Exposure to Second-Hand Smoke: Yes Dental Care, Regularly: Yes Physical Activity Frequency: Does not Exercise Seatbelt Use: always Sunscreen Use: No Assistive Devices: Cane and CPAP Review of Systems Review of Systems: REVIEW OF SYSTEMS: Constitutional: No fever, sweats or chills Eyes: No diplopia, no worsening or blurred vision ENT: normal hearing, no trouble swallowing Respiratory: (+) JJ, No cough, sputum, dyspnea at rest or on exertion Cardiovascular: No chest pain, tightness or palpitations Abdomen: No pain, nausea, vomiting, diarrhea or constipation Musculoskeletal:(+) chronic leg pain, Neurologic: (+) neuropathy, No weakness, numbness/tingling, or balance problems Psychiatric: No anxiety or depression Skin: (+) erythremia and skin peeling left foot Physical Exam Physical Exam: PHYSICAL EXAM: General: awake, alert, no apparent distress Head: Normocephalic, atraumatic ENT: PERRL, EOMI, no pharyngeal exudate, mucous membranes moist Neuro: AAO x 3, speech clear and appropriate, strength intact bilaterally 5/5, sensation intact and equal all extremities and dermatomes, no pronator drift Chest: equal rise and fall of the chest, no accessory muscle use, no heaves or thrills, Clear to auscultation, on room air, Cardiac: Regular rate and rhythm, telemetry reviewed- NSR, skin warm dry, cap refill <3 seconds, peripheral pulses +2 no JVD, no murmur, trace edema GI: NABS x 4 quadrants, soft, nontender to palpation, no rebound, guarding or tenderness : Spontaneously voiding, no pain, no CVA tenderness, Extremities: Normal inspection, no peripheral edema or erythema, calfs nontender to palpation Psych: Normal mood and affect Skin: erythema and peeling of skin to left lower foot present on admission Results & Data Results & Data ([facility]) Vital Signs (Past 12 Hours) Vital Signs Temp Pulse Pulse Resp BP BP Pulse Ox 05/08/22 18:01 05/08/22 18:20 72 15 98 05/08/22 18:13 73 16 99 05/08/22 18:00 36.6 C 77 14 134/92 99 05/08/22 17:35 36.4 C L 81 16 125/68 99 05/08/22 17:25 85 16 132/80 100 05/08/22 17:15 80 16 156/82 H 99 05/08/22 17:05 80 18 159/87 H 100 05/08/22 16:48 36.4 C L 84 18 183/89 H 100 05/08/22 11:04 36.9 C 78 18 134/74 150/80 H 95 O2 Del Method O2 Flow Rate 05/08/22 18:01 Oxymask 3 05/08/22 18:20 05/08/22 18:13 05/08/22 18:00 Oxymask 3 05/08/22 17:35 Oxymask 5 05/08/22 17:25 Oxymask 5 05/08/22 17:15 Oxymask 5 05/08/22 17:05 Oxymask 5 05/08/22 16:48 Oxymask 5 05/08/22 11:04 Room Air Laboratory Results Abnormal lab results 05/08/22 05/08/22 05/08/22 Range/Units 10:50 10:50 11:12 Glucose 152 H (70-99(Fasting)) mg/dl POC Glucose 161 H (70-99) mg/dl Crossmatch See Detail 05/08/22 05/08/22 Range/Units 16:52 19:11 Glucose (70-99(Fasting)) mg/dl POC Glucose 181 H 175 H (70-99) mg/dl Crossmatch Medications Administered Home Medications coQ10 (ubiquinol) 200 mg capsule 200 mg PO QAM 03/16/19 [History Confirmed 05/08/22] acetaminophen 650 mg tablet,extended release 1,300 mg PO UD PRN ARTHRITIS PAIN 12/06/20 [History Confirmed 05/08/22] lisinopril 40 mg tablet 40 mg PO QAM #90 tabs 05/01/21 [Rx Confirmed 05/08/22] glimepiride 1 mg tablet 1 mg PO QAM #90 tabs 07/09/21 [Rx Confirmed 05/08/22] fenofibrate 160 mg tablet 160 mg PO QAM #90 tabs 07/17/21 [Rx Confirmed 05/08/22] ketoconazole 2 % topical cream See Rx Instructions topical DAILY #30 grams 10/15/21 [Rx Confirmed 05/03/22] duloxetine 60 mg capsule,delayed release 60 mg PO QAM #90 caps 01/21/22 [Rx Confirmed 05/08/22] metoprolol succinate 50 mg tablet,extended release 24 hr 50 mg PO QAM #90 tabs 03/18/22 [Rx Confirmed 05/08/22] alirocumab 150 mg/mL subcutaneous pen injector (Praluent Pen) 150 mg subcut Q14D #2 mL 03/21/22 [Rx Confirmed 05/08/22] tramadol 50 mg tablet 100 mg PO BID #120 tabs 04/03/22 [Rx Confirmed 05/08/22] clopidogrel 75 mg tablet 75 mg PO QAM 04/23/22 [History Confirmed 05/08/22] folic acid 400 mcg tablet 0.4 mg PO QAM 04/23/22 [History Confirmed 05/08/22] mecobalamin (vitamin B12) 1,000 mcg chewable tablet 1,000 mcg PO QAM 04/23/22 [History Confirmed 05/03/22] metoprolol succinate 25 mg tablet,extended release 24 hr 25 mg PO HS 04/23/22 [History Confirmed 05/08/22] pantoprazole 40 mg tablet,delayed release 40 mg PO QAM 04/23/22 [History Conf irmed 05/08/22] metformin 500 mg tablet,extended release 24 hr 2,000 mg PO QAM #360 tabs 04/24/22 [Rx Confirmed 05/08/22] oxycodone-acetaminophen 5 mg-325 mg tablet (Percocet) 1 tab PO Q6H PRN pain #30 tabs 05/03/22 [Rx Confirmed 05/08/22] triamcinolone acetonide 0.1 % topical cream 1 applic topical BID #30 grams 05/07/22 [Rx] Active Medications Acetaminophen (Acetaminophen 325 Mg Tab) 650 mg PO Q12H PRN PRN Reason: ARTHRITIS PAIN Stop: 06/07/22 18:54 Atropine Sulfate (Atropine Sulfate 0.1 Mg/Ml 10ml Syr) 0.5 mg IV Q1M PRN PRN Reason: PACU Use-HR<40 &/or Bradycardi Stop: 05/08/22 22:17 Clopidogrel Bisulfate (Clopidogrel Bisulfate 75 Mg Tab) 75 mg PO QAM [facility] Stop: 06/08/22 08:59 Cyanocobalamin (Cyanocobalamin (B-12) 500 Mcg Tablet) 1,000 mcg PO QAM [facility] Stop: 06/08/22 08:59 Dextrose (Dextrose 50% 50 Ml Syringe) 25 - 50 ml IV UD PRN; Protocol PRN Reason: Hypoglycemia Protocol Stop: 06/07/22 19:14 Duloxetine HCl (Duloxetine Hcl 60 Mg Cap) 60 mg PO QAM [facility] Stop: 06/08/22 08:59 Ephedrine Sulfate (Ephedrine Sulfate 50 Mg/Ml Amp) 5 mg IV Q5M PRN PRN Reason: PACU Use Only-SBP<90 mmHg Stop: 05/08/22 22:17 Fentanyl Citrate (Fentanyl Citrate 100 Mcg/2 Ml Vial) 50 mcg IV Q5M PRN PRN Reason: PACU Use Only-Pain Stop: 05/08/22 22:17 Last Admin: 05/08/22 17:14 Dose: 50 mcg Folic Acid (Folic Acid 400 Mcg Tab) [facility] [place] Stop: 06/08/22 08:59 Glucagon (Glucagon For Inj 1 Mg Vial) 1 mg IM UD PRN; Protocol PRN Reason: Hypoglycemia Protocol Stop: 06/07/22 19:14 Glucose (Glucose 40% Gel 15 Gm Tube) 15 - 30 gm PO UD PRN; Protocol PRN Reason: Hypoglycemia Protocol Stop: 06/07/22 19:14 Glucose (Glucose 10 Tab/Tube) 4 - 8 tab PO UD PRN; Protocol PRN Reason: Hypoglycemia Protocol Stop: 06/07/22 19:14 Hydromorphone HCl (Hydromorphone Inj 0.5 Mg/0.5 Ml Syr) 0.5 mg IV Q5M PRN PRN Reason: Pain Stop: 05/08/22 22:00 Last Admin: 05/08/22 17:24 Dose: 0.5 mg Promethazine HCl 6.25 mg/ (Sodium Chloride) 50.25 mls @ 204 mls/hr IV ONCE PRN PRN Reason: PACU Use Only-Nausea/Vomiting Stop: 05/08/22 22:17 Clindamycin Phosphate (Cleocin/D5w) 600 mg in 50 mls @ 100 mls/hr IV Q8H [facility] Stop: 05/09/22 04:29 Dextrose/Sodium Chloride (D5w And 1/2nss) 1,000 mls @ 125 mls/hr IV .Q8H [facility] Stop: 06/07/22 18:44 Last Admin: 05/08/22 19:30 Dose: Not Given Insulin Aspart (Insulin Aspart Per Unit) 0 units SC ACHS [facility] Stop: 06/07/22 19:59 Insulin Aspart (Insulin Aspart Per Unit) 0 units SC 0000,0400 [facility] Stop: 05/09/22 04:01 Iodixanol (Visipaque) 50 ml IV UD PRN PRN Reason: Interaction Checking Stop: 05/12/22 16:08 Last Admin: 05/08/22 16:10 Dose: 50 ml Ketoconazole (Ketoconazole 2% Cr 15 Gm Tube) 1 appln EXT HS [facility] Stop: 05/19/22 20:59 Lisinopril (Lisinopril 40 Mg Tab) 40 mg PO QAM [facility] Stop: 06/08/22 08:59 Metoprolol Succinate (Metoprolol Succ 25mg Ext Rel Tab) 25 mg PO HS [facility] Stop: 06/07/22 20:59 Metoprolol Succinate (Metoprolol Succ 50mg Ext Rel Tab) 50 mg PO [facility] Stop: 06/08/22 08:59 Miscellaneous (Order Awaiting Action (Fenofibrate 160 Mg Tablet)) 1 each N/A QS [facility] Stop: 06/08/22 00:00 Miscellaneous (Carbohydrates For Hypoglycemia ) 15 - 30 gm PO UD PRN PRN Reason: Hypoglycemia Treatment Stop: 06/07/22 19:14 Miscellaneous Information (Pharmacy Glycemic Mgmt Consult) 1 each N/A UD PRN; Protocol PRN Reason: Consult Stop: 06/07/22 18:00 Morphine Sulfate (Morphine Sulfate 4 Mg/Ml 1 Ml Carp\\Vial) 1 - 4 mg IV Q2H PRN PRN Reason: Severe Pain Stop: 05/22/22 18:00 Ondansetron HCl (Ondansetron Inj 2 Mg/Ml 2 Ml Vial) 4 mg IV ONCE PRN PRN Reason: PACU Use Only-Nausea/Vomiting Stop: 05/08/22 22:17 Ondansetron HCl (Ondansetron Inj 2 Mg/Ml 2 Ml Vial) 4 mg IV Q6H PRN PRN Reason: Nausea And Vomiting Stop: 06/07/22 18:00 Oxycodone/Acetaminophen (Oxycodone/Acetaminophen 5mg/325mg Tab) 1 tab PO Q6H PRN PRN Reason: MILD TO MODERATE pain Stop: 05/22/22 18:00 Last Admin: 05/08/22 19:02 Dose: 1 tab Pantoprazole Sodium (Pantoprazole 40 Mg Tab) 40 mg PO QAM [facility] Stop: 06/08/22 08:59 ECG Additional Comments: 02-MAY-2022 09:58:47- Reviewed- Unusual P axis, possible ectopic atrial rhythm Abnormal ECG When compared with ECG of 19-FEB-2021 11:12, No significant change Coding Level of Care Code Critical Care 1st 30-74 mins Diagnoses Statin intolerance Z78.9 Contact dermatitis L24.4 Contact dermatitis trigger: drugs in contact with skin Contact dermatitis type: irritant PAD (peripheral artery disease) I73.9 Neuropathy G62.9 Bilateral carotid artery stenosis I65.23 Paroxysmal atrial flutter I48.92 Current smoker F17.200 Sleep apnea G47.30 Diabetes mellitus, type 2 E11.9 (1) Contact dermatitis Contact dermatitis trigger: drugs in contact with skin Contact dermatitis typ e: irritant Qualified Code(s): L24.4 - Irritant contact dermatitis due to drugs in contact with skin
[2022-05-08] MEDS: INSULIN ASPART PER UNIT SC SCH ×2 (19:59→23:10)
[2022-05-08] MEDS: METOPROLOL SUCC 25MG EXT REL TAB PO SCH (20:00)
[2022-05-08] MEDS: CLINDAMYCIN/D5W 600 MG/50 ML BAG IV SCH (20:23)
[2022-05-08] MEDS: MoRPHine SULFATE 4 MG/ML 1 ML CARP\\VIAL IV PRN (21:09)
[2022-05-09] MEDS: oxyCODONE/ACETAMINOPHEN 5mg/325mg TAB PO PRN ×4 (00:13→19:36)
[2022-05-09] MEDS: MoRPHine SULFATE 4 MG/ML 1 ML CARP\\VIAL IV PRN ×8 (02:12→23:50)
[2022-05-09] MEDS: CLINDAMYCIN/D5W 600 MG/50 ML BAG IV SCH (03:59)
[2022-05-09] MEDS: INSULIN ASPART PER UNIT SC SCH ×5 (04:21→20:53)
[2022-05-09 05:06] LABS: Basophils # (auto) 0.04 K/uL (0-0.2); Basophils % (auto) 0.5 %; Hemoglobin 8.5 g/dl (14.0-18.0); Immature Granulocytes # (auto) 0.15 K/uL (0.00-0.02); Immature Granulocytes % (auto) 1.8 %; Lymphocytes # (auto) 1.31 K/uL (1.2-3.4); Lymphocytes % (auto) 16.2 %; Mean Corpuscular Hemoglobin 35.4 pg (25.0-34.0); Mean Corpuscular Hgb Conc 32.7 g/dL (32.0-36.0); Mean Corpuscular Volume 108.3 fL (80.0-100.0); Mean Platelet Volume 11.1 fL (9.4-12.4); Monocytes # (auto) 0.78 K/uL (0.24-0.82); Monocytes % (auto) 9.6 %; Neutrophils # (auto) 5.83 K/uL (1.4-6.5); Neutrophils % (auto) 71.9 %; Platelet Count 274 K/uL (130-400); RDW Coefficient of Variation 14.6 % (11.5-14.5); RDW Standard Deviation 57.9 fL (36.4-46.3); White Blood Count 8.11 K/ul (4.8-10.8)
[2022-05-09 05:36] LABS: BUN Creatinine Ratio 14.1 (10-20); Calcium 7.9 mg/dl (8.5-10.1); Creatinine Clr Calc Pharmacy 101.6 ml/min; Est GFR (African American) 101.5 ml/min; Est GFR (Non-African American) 87.6 ml/min; Potassium 4.5 mmol/L (3.5-5.1)
[2022-05-09] MEDS: lisinopril 40 MG TAB PO SCH (08:00)
[2022-05-09] MEDS: FOLIC ACID 400 MCG TAB PO SCH (08:00)
[2022-05-09] MEDS: CYANOCOBALAMIN (B-12) 500 MCG TABLET PO SCH (08:00)
[2022-05-09] MEDS: METOPROLOL SUCC 50MG EXT REL TAB PO SCH (08:00)
[2022-05-09] MEDS: PANTOprazole 40 MG TAB PO SCH (08:00)
[2022-05-09] MEDS: CLOPIDOGREL BISULFATE 75 MG TAB PO SCH (08:00)
[2022-05-09] MEDS: DULoxetine HCL 60 MG CAP PO SCH (08:00)
--- NOTE | 2022-05-09 08:04 | Critical Care Progress Note ---
Date of Service May 09, 2022 Assessment & Plan (1) Claudication of left lower extremity: Plan: Reason Critically Ill: 62 YOM s/p Vascular endarterectomy of left femoral with patch. To ICU for postoperative monitoring. Neuro - [facility] ICU: Negative Depression - Continue Duloxetine, hold Tramadol as you have Nueropathy legs - Acute pain control with Dilaudid for severe pain and oxycodone/tylenol for mild to moderate pain Cardiac - HX CAD, PAD - ASA/Plavix per vascular PAF - ECG for any anginal complaints HLD - history of statin intolerance continue home fenofibrate HTN - Continue GOOD as long as renal indices remain normal Respiratory - JJ -Continue home CPAP- 13 cm H20 at home- use while napping and/or sleeping GI - GERD - Continue with PPI RENAL/LYTES - - No acute needs - ICU electrolyte protocol - - No acute needs ENDO - DM II - Hold oral agents - ICU hyperglycemic protocol goal <180mg/dl HEME - No acute needs ID - Contact Dermatitis - Present prior to admission from soaking foot and using a menthol cream at home- continue ketoconazole cream currently ordered LINES/IV ACCESS - PIV- continue use of these lines DVT PROPHYLAXIS - SCDs, ASA/PLavix Thank you for allowing us to participate in this patient's care. Please refer to Dr. Saunders's notes for further details. Patient stable for downgrade from ICU at this time. (2) PAD (peripheral artery disease): (3) Diabetes mellitus, type 2: (4) Sleep apnea: (5) Hyperlipidemia: (6) Hypertension: (7) CAD in [place] artery: Admission and Anticipated Discharge Date Admission Date: May 08, 2022 Supervising Physician Co-Signing Physician Notes Dr. Glaser was resident physician during care of patient. I separately evaluated patient for gerber portions of the history and the exam. I was present during the critical portion of medical decision making, and I discussed the case with the resident. I generally agree with the findings and plan. Stable, Critical Care will sign off Subjective Patient seen at bedside, calm comfortable cooperative, complains of some pain in left leg incision site, otherwise feels slightly better in his left leg. Denies headache dizziness SOB CP abd pain nausea vomitting. Review of Systems Review of Systems: All systems reviewed & are unremarkable except as noted in HPI & below Physical Exam Constitutional: well developed, well nourished, + obese, cooperative and com fortable Eyes: PERRL, conjunctivae normal, anicteric sclerae ENMT: external ear and nose normal, oropharynx normal Neck: trachea midline, no thyromegaly Respiratory: normal respiratory effort, lungs clear to auscultation Cardiovascular: Rate/Rhythm: regular rate and regular rhythm Extremities: no edema Gastrointestinal (Abdomen): Inspection/Auscultation: abdomen normal to inspection Percussion/Palpation: abdomen soft; abdomen nontender Skin: incision on left leg groin covered by vacuum. Left foot toes mild erythema and peeling with red border noted. Sensation intact on LLE Results & Data Results [facility]) Vital Signs (Past 12 Hours) Vital Signs Temp Pulse Resp BP Pulse Ox O2 Del Method FiO2 05/09/22 05:30 66 18 124/56 L 93 05/09/22 05:00 63 18 95/62 L 96 Room Air 05/09/22 04:00 67 14 104/57 L 95 Room Air 05/09/22 03:01 63 17 90 Room Air 05/09/22 03:00 63 15 98/58 L 91 Room Air 05/09/22 02:00 65 13 122/68 95 05/09/22 01:00 65 13 99/63 L 94 05/09/22 00:01 67 15 108/59 L 92 05/09/22 00:00 77 05/08/22 23:00 73 15 105/82 97 Room Air 05/08/22 22:37 70 12 99/64 L 92 Room Air 05/08/22 23:18 69 14 96 21 05/08/22 22:11 36.5 C 05/08/22 22:01 70 12 94/45 L 94 05/08/22 21:00 79 19 120/57 L 93 Resident Activity Tracking Resident Involvement: Resident Care Provided Care Provided: Adult Hospital Medicine
[2022-05-09] MEDS ORDERED: NON-FORMULARY MEDICATION (Coq10 (Ubiquinol) 200 mg Capsule) PO SCH (09:00)
[2022-05-09] MEDS ORDERED: GLIMEPIRIDE 2 MG TAB PO SCH (09:00)
--- NOTE | 2022-05-09 10:23 | Surgery Progress Note ---
Date of Service May 09, 2022 Assessment & Plan (1) PAD (peripheral artery disease): Plan: Patient is postoperative day 1 from his left femoral artery endarterectomy and patch as well as lithotripsy of his left superficial femoral artery and popliteal artery. He is doing well with good Doppler signals of the foot and loss of the numbness and tingling in his left foot. We will transfer him to the floor and have him go OT and PT therapy (2) Acute blood loss anemia: Plan: He did have a drop in hemoglobin secondary to surgery. He is not symptomatic from his blood loss anemia at this point. This will be followed conservatively Admission and Anticipated Discharge Date Admission Date: May 08, 2022 Subjective Patient is complaining of [id number] in the left medial thigh. He claims that the numbness tingling of his left foot has totally resolved. Physical Exam Constitutional: WD/WN, vitals as above Respiratory: normal respiratory effort; no respiratory distress Cardiovascular: Rate/Rhythm: regular rate and regular rhythm Extremities: normal capillary refill Good Doppler signals in left foot. Gastrointestinal (Abdomen): Inspection/Auscultation: abdomen normal to inspection Musculoskeletal: no cyanosis or clubbing, extremities motor strength 5/5 Skin: + incision (Prevena dressing in place and working well) Neurologic: moves all extremities Psychiatric: Orientation: alert and oriented x 3 Results & Data ([facility]) Vital Signs (Past 12 Hours) Vital Signs Temp Pulse Resp BP Pulse Ox O2 Del Method FiO2 05/09/22 10:00 82 26 H 133/57 L 96 Room Air 05/09/22 09:00 76 18 96 Room Air 05/09/22 09:00 152/68 H 05/09/22 08:00 79 15 96 05/09/22 08:00 135/69 05/09/22 07:00 69 24 98 Room Air 05/09/22 07:00 157/81 H 05/09/22 06:00 66 14 94 05/09/22 07:10 67 05/09/22 08:00 36.8 C 05/09/22 05:30 66 18 124/56 L 93 05/09/22 05:00 63 18 95/62 L 96 Room Air 05/09/22 04:00 67 14 104/57 L 95 Room Air 05/09/22 03:01 63 17 90 Room Air 05/09/22 03:00 63 15 98/58 L 91 Room Air 05/09/22 02:00 65 13 122/68 95 05/09/22 01:00 65 13 99/63 L 94 05/09/22 00:01 67 15 108/59 L 92 05/09/22 00:00 77 05/08/22 23:00 73 15 105/82 97 Room Air 05/08/22 22:37 70 12 99/64 L 92 Room Air 05/08/22 23:18 69 14 96 21
--- NOTE | 2022-05-09 10:53 | Pharmacy Report ---
Pharmacy Glycemic Short Note 2 - Date of Service May 09, 2022 - Glycemic Short BSG Results (Last 24 hours): 05/08/22 05/08/22 05/08/22 10:50 11:12 16:52 Glucose 152 H POC Glucose 161 H 181 H 05/08/22 05/08/22 05/09/22 19:11 23:05 04:03 Glucose POC Glucose 175 H 164 H 151 H 05/09/22 05/09/22 04:32 07:26 Glucose 135 H POC Glucose 150 H OUTPATIENT ANTIDIABETIC REGIMEN: * Metformin ER 1000 mg PO AM * Glimepiride 1 mg PO AM * HbA1c: 6.6% (04/24/22) ASSESSMENT: * 62 yo M admitted postoperatively following an endarterectomy by Dr. Garcia. Pharmacy has been consulted to assist with inpatient glycemic management. Patient is a well controlled type 2 diabetic on two oral antidiabetic medications as an outpatient. * Stressors are stable postoperatively. Patient is ordered and tolerating a type 2 diabetic diet. Did receive a single dose of IV dexamethasone 4 mg intraoperatively. * Started on Novolog only based on weight/stress of 2 by second shift pharmacist last evening. Received 14 units of Novolog overnight and BSGs were 175-164 mg/dL. * Fasting BSG was 150 mg/dL this AM - acceptable. Expect BSGs to start to normalize over the next 24 hours as Dexamethasone wears off. Will hold off on basal. Continue with current Novolog orders. Plan to transition to orals and sign off once the patient has been 48 hours removed from receiving contrast dye. PLAN FOR INPATIENT GLYCEMIC CONTROL: * Hold outpatient oral diabetes medications * Basal insulin * None * Bolus insulin * NovoLog per scale ACHS or Q6hrs while NPO * Goal Range: Low 110 mg/dL - High 140 mg/dL * Correction Factor: 20 mg/dL/unit * Nutritional / Prandial insulin per carb ratio of 1 unit per 7 grams CHO consumed
[2022-05-09] MEDS: METOPROLOL SUCC 25MG EXT REL TAB PO SCH (20:54)
[2022-05-09] MEDS ORDERED: KETOCONAZOLE 2% CR 15 GM TUBE EXT SCH (21:00)
[2022-05-10] MEDS: oxyCODONE/ACETAMINOPHEN 5mg/325mg TAB PO PRN ×2 (01:24→08:30)
[2022-05-10 05:10] LABS: Hematocrit (blood only) 27.7 % (40.1-51.0); Hemoglobin 8.9 g/dl (14.0-18.0); Mean Corpuscular Hemoglobin 35.3 pg (25.0-34.0); Mean Corpuscular Hgb Conc 32.1 g/dL (32.0-36.0); Mean Corpuscular Volume 109.9 fL (80.0-100.0); Nucleated RBC # (auto) 0.02 K/uL (0-0); Nucleated RBC % (auto) 0.3 %; Platelet Count 287 K/uL (130-400); RDW Coefficient of Variation 14.8 % (11.5-14.5); RDW Standard Deviation 59.5 fL (36.4-46.3); Red Blood Count 2.52 M/uL (4.63-6.08); White Blood Count 6.24 K/ul (4.8-10.8)
[2022-05-10 05:39] LABS: BUN Creatinine Ratio 12.4 (10-20); Calcium 8.4 mg/dl (8.5-10.1); Creatinine Clr Calc Pharmacy 106.3 ml/min; Est GFR (African American) 104.7 ml/min; Est GFR (Non-African American) 90.4 ml/min; Potassium 4.3 mmol/L (3.5-5.1)
[2022-05-10] MEDS: MoRPHine SULFATE 4 MG/ML 1 ML CARP\\VIAL IV PRN (05:44)
[2022-05-10] MEDS: INSULIN ASPART PER UNIT SC SCH ×2 (07:09→11:01)
[2022-05-10] MEDS: lisinopril 40 MG TAB PO SCH (08:29)
[2022-05-10] MEDS: DULoxetine HCL 60 MG CAP PO SCH (08:29)
[2022-05-10] MEDS: CYANOCOBALAMIN (B-12) 500 MCG TABLET PO SCH (08:29)
[2022-05-10] MEDS: FOLIC ACID 400 MCG TAB PO SCH (08:29)
[2022-05-10] MEDS: CLOPIDOGREL BISULFATE 75 MG TAB PO SCH (08:29)
[2022-05-10] MEDS: METOPROLOL SUCC 50MG EXT REL TAB PO SCH (08:29)
[2022-05-10] MEDS: PANTOprazole 40 MG TAB PO SCH (08:29)
[2022-05-10] MEDS ORDERED: FENOFIBRATE NANOCRYSTALLIZED 145 MG TABLET PO SCH (09:00)
--- NOTE | 2022-05-10 09:10 | Surgery Progress Note ---
Date of Service May 10, 2022 Assessment & Plan (1) PAD (peripheral artery disease): Plan: Patient is postoperative day 2 from his left femoral artery endarterectomy and patch as well as lithotripsy of his left superficial femoral artery and popliteal artery. He is doing well with good Doppler signals of the foot and loss of the numbness and tingling in his left foot. Discusssed [facility] for d/c home today. (2) Acute blood loss anemia: Plan: He did have a drop in hemoglobin secondary to surgery. He is asymptomatic. Admission and Anticipated Discharge Date Admission Date: May 08, 2022 Subjective 62 yo m POD #2 after L common femoral endarterectomy with bovine patch and lithotripsy of L sfa and pop arteries, seen inf/u today. Pt states still some tingling, but improved. No new complaints. Has ambulated in room. Review of Systems Review of Systems: All systems reviewed & are unremarkable except as noted in HPI & below Physical Exam Constitutional: WD/WN, vitals as above Respiratory: normal respiratory effort; no respiratory distress Cardiovascular: Rate/Rhythm: regular rate and regular rhythm Extremities: normal capillary refill Gastrointestinal (Abdomen): Inspection/Auscultation: abdomen normal to inspection Musculoskeletal: no cyanosis or clubbing, extremities motor strength 5/5 Skin: + incision (Prevena dressing in place and working well) Neurologic: moves all extremities Psychiatric: Orientation: alert and oriented x 3 Results & Data ([facility]) Vital Signs (Past 12 Hours) Vital Signs Temp BP Pulse Ox Pulse Ox O2 Del Method O2 Del Method 05/10/22 06:00 94 05/10/22 05:00 95 05/10/22 04:19 151/71 H 05/10/22 04:19 95 Room Air 05/10/22 04:00 95 05/10/22 04:19 151/71 H Room Air 05/10/22 03:00 95 05/10/22 02:00 93 05/10/22 01:00 93 05/10/22 00:00 93 05/09/22 23:00 94 05/10/22 00:21 36.7 C 05/09/22 23:59 93 Room Air 05/09/22 22:00 95 Room Air 05/09/22 22:08 36.7 C
--- NOTE | 2022-05-10 10:19 | Discharge Summary ---
Date of Service May 10, 2022 Admission HPI Per Admitting Provider [facility], [id number] History & Physical Report Signed with Moi Patient:RAKEL GAXIOLA JR Admit Date:04/03/22 MR#:[id number] Att Phy:Tyrese Garcia M.D. Acct ID:[id number] Tina Phy:Nitish Lam MD Date:1960 Fam Phy: Age:62 Location:[facility] Sex:M Room/Bed: cc: ~ *NOTICE TO RECEIVING GREEN PARTY/AGENCY This information is strictly Confidential and protected under [place] law. [place] law prohibits you from making any further disclosure of this information unless further disclosure is expressly permitted by the written consent of the person to whom it pertains or is authorized by law. A general authorization for the release of medical or other information is not sufficient for this purpose. Hospital accepts no responsibility if the information is made available to any other person, INCLUDING THE PATIENT. ADDENDUM 04/10/22 075ddendum April 10, 2022 07:52 Patient does appear to have chronic symptoms of neuropathy/neurogenic claudication. Additionally he also has developed left calf claudication symptoms which seem to be consistent with arterial insufficiency. It is likely that he has a combination of neurogenic and arterial symptoms. His imaging does demonstrate significant disease. We recommends that the patient consider undergoing an aortogram with runoff and possible left leg arterial intervention. We did discuss with the patient that this would likely only alleviate the left calf claudication and that he would likely continue to have the numbness tingling and other pain symptoms that he is experiencing due to his neurogenic issues. Patient expresses understanding of this. The procedure, risks, benefits, and alternatives were discussed. Patient understood and agreed to the procedure. Addendum Signed By: <Electronically signed by Tyrese Garcia MD> 04/10/22 075 Addendum Cosigned By: Created: 04/10/22 Date of Service April 10, 2022 History of Present Illness Chief Complaint: Left leg claudication Primary Care Provider: Nitish Lam MD History of Present Illness I the pleasure of seeing Rakel today for evaluation of his left lower extremity claudication. As you know he is a 61-year-old gentleman who in 2020 had back surgery. He does complain of discomfort in his buttocks hips and after his surgery was shooting down to his lateral aspect of his left leg with tingling in his toes. Over the last 10 months he has developed pain in his left calf when walking. He claims he has to walk at a slow pace or flat-footed and he can walk a little further. If he did not walk flat-footed or at a slow pace he could probably make it 30 or 40 feet before he has to stop. He does complain of cramping at night but no distinct pain at night in his foot. Denies any ulcerations of either lower extremity. He denies any pain in his right lower extremity associated with walking. He did have an ultrasound which showed a occlusive lesion in the left lower extremity at the popliteal level and a stenotic region also in the groin level. He claims he has had this study yearly and this year it is changed from what it was previously. He does have a history of hypertension, dyslipidemia, and diabetes. He does have coronary occlusive disease and has 2 coronary stents placed in 2008. He did have a history of history of met in 2020 of having atrial flutter. This was attributed to excessive alcohol intake at that time. He also has a history of carotid artery occlusive disease which is asymptomatic and is in the range of 50 to 69%. Review of Systems 10 systems were reviewed. The only positive findings was an irregular heartbeat other than that the other positive findings are in his HPI. Physical Exam Vitals & Measurements HR: 94 (Monitored) BP: 174/60 SpO2: 97% WT: 108.4 kg Input and Output - Last 24 hours (Last 8 hours) No I/O Data Found: On exam patient is awake alert oriented x3. Is no apparent distress. His blood pressure is 182/62 on the left and 174/60 on the right. His radials carotids and supratemporal's are +2 bilaterally. No carotid bruits lungs are clear his heart had a regular rate and rhythm on exam today. Abdominal exam is benign I cannot appreciate a widened aortic pulse. Femoral pulses are +2 bilaterally. Right lower extremity has +1 dorsalis pedis and posterior tibial pulses. Left lower extremity cannot appreciate pulses below the groin. He does have slight decreased capillary refill on the left when compared to the right. His musculature of his left lower extremity is also smaller than the musculature on the right most likely neurogenic in origin. Neurologic exams however is grossly intact to motor and sensory function. Assessment/Plan 1. Atherosclerosis of [place] arteries of extremities with intermittent c laudication, left leg At this point I think he has a combination of neurogenic and arterial claudication of the lower extremities. He has the left leg has a significant contribution from his vascular disease for his claudication of the calf. I did order a CT angiogram to get a better idea of the lesions of the left lower extremity. Further treatment will be determined by the results of the CAT scan. Thank you very much for letting us participate in the care of this patient. Allergies Allergy/AdvReac Type Severity Reaction Status Date / Time latex Allergy Unknown Rash Verified 10/19/21 09:15 Penicillins Allergy Unknown Rash Verified 10/19/21 09:15 Kwqpmxs-BNS-UqF Reductase AdvReac Intermediate body aches Verified 10/19/21 09:15 Inhibitor [Pypagvb-Pso-Nme Reductase Inhibitor] adhesive AdvReac Unknown Rash Verified 10/19/21 09:15 gemfibrozil AdvReac Unknown BODY ACHES Verified 10/19/21 09:15 NSAIDS (Non-Steroidal AdvReac Unknown TOLD NOT Verified 10/19/21 09:15 Anti-Inflamma TO TAKE - HX STOMACH ULCER Home Medications Medication Instructions Recorded Confirmed Type coQ10 (ubiquinol) 200 mg capsule 200 mg PO QAM 03/16/19 2 History acetaminophen 650 mg 1,300 mg PO UD PRN ARTHRITIS PAIN 12/06/2011/07 History tablet,extended release tadalafil 10 mg tablet 5 mg PO QAM sexual activity #45 01/08/2110/24 Rx tabs clotrimazole-betamethasone 1 See Rx Instructions topical BID 02/17/21 11/07/21 History %-0.05 % topical cream PRN flare ups folic acid 1 mg tablet 200 mcg PO DAILY 02/27/21 11/07/21 History thiamine HCl (vitamin B1) 100 mg 250 mg PO DAILY 02/27/21 2 History tablet lisinopril 40 mg tablet 40 mg PO QAM #90 tabs 05/01/21 11/07/21 Rx metformin 500 mg tablet,extended 2,000 mg PO QAM #360 tabs 05/28/21 0 11/07/21 Rx release 24 hr metoprolol succinate 25 mg 25 mg PO .COMPLEX #90 tabs 05/28/21 Rx tablet,extended release 24 hr glimepiride 1 mg tablet 1 mg PO QAM #90 tabs 07/09/21 11/07/21 Rx fenofibrate 160 mg tablet 160 mg PO QAM #90 tabs 07/17/21 11/07/21 Rx ketoconazole 2 % topical cream See Rx Instructions topical DAILY 10/15/21 11/07/21 Rx #30 grams mecobalamin (vitamin B12) 1,000 1,000 mcg PO DAILY #30 tabs 10/16/21 11/07/21 Rx mcg chewable tablet aspirin 81 mg tablet,delayed 81 mg PO .every other day 11/07/2111/07 History release omeprazole 40 mg capsule,delayed See Rx Instructions .Route 01/15/22 Rx release .COMPLEX #30 caps duloxetine 60 mg capsule,delayed 60 mg PO QAM #90 caps 01/21/22 Rx release metoprolol succinate 50 mg 50 mg PO QAM #90 tabs 03/18/22 Rx tablet,extended release 24 hr alirocumab 150 mg/mL subcutaneous 150 mg subcut Q14D #2 mL 03/21/22 Rx pen injector (Praluent Pen) tramadol 50 mg tablet 100 mg PO BID #120 tabs 04/03/22 Rx Past Med/Surg History Medical History Alcohol abuse with withdrawal Atrial flutter with rapid ventricular response CAD in [place] artery Chest pain Degenerative disc disease Diabetes mellitus, type 2 Elevated troponin GERD (gastroesophageal reflux disease) History of anesthesia reaction History of gastric ulcer Hyperlipidemia Hypertension Low iron Myocardial infarction Osteoarthritis Sleep apnea Surgical History Fusion of spine History of colonoscopy History of esophagogastroduodenoscopy (EGD) History of heart artery stent History of lumbar surgery History of nasal septoplasty History of total knee replacement Hx of transurethral resection of prostate Family History Mother Family history of diabetes mellitusFather Family history of diabetes mellitusDenies family history of Ovarian cancer Prostate cancer Myocardial infarction Breast cancer Colorectal cancer Social History Smoking Status: Current every day smoker Tobacco Type: Cigarettes Age Started Using Tobacco: 18; Cigarettes Per Day: 6; Second Hand Exposure: No; Hx Alcohol Use: Yes Alcohol type: beer Alcohol type Comment: 6-8 beers Hx Substance Use: No Preferred Language: Romanian Communication Ability: Effective Visual Impairment: No Limitations Hr Analyst Required: No Beliefs That Will Affect Care: None marital status: Current Living Situation: Spouse How many Children do You have: 4 Feels Safe at Home: Yes Childhood Exposure to Second-Hand Smoke: Yes Dental Care, Regularly: Yes Physical Activity Frequency: Does not Exercise Seatbelt Use: always Sunscreen Use: No Assistive Devices: Cane and Walker Signed By: <Electronically signed by Tyrese Garcia MD> 04/10/22 075 Created:04/10/22 075 The status of this report isSigned. Draft = Not yet reviewed or approved by Medical Physician. Signed = Reviewed and approved by Medical Physician. Admission Exam Per Admitting Provider On exam patient is awake alert oriented x3. Is no apparent distress. His blood pressure is 182/62 on the left and 174/60 on the right. His radials carotids and supratemporal's are +2 bilaterally. No carotid bruits lungs are clear his heart had a regular rate and rhythm on exam today. Abdominal exam is benign I cannot appreciate a widened aortic pulse. Femoral pulses are +2 bilaterally. Right lower extremity has +1 dorsalis pedis and posterior tibial pulses. Left lower extremity cannot appreciate pulses below the groin. He does have slight decreased capillary refill on the left when compared to the right. His musculature of his left lower extremity is also smaller than the musculature on the right most likely neurogenic in origin. Neurologic exams however is grossly intact to motor and sensory function. Principal Diagnosis 1. s/p L common femoral endarterectomy with bovine patch, lithotripsy of SFA and Popliteal arteries 2. Severe PAD with claudication Discharge Exam Constitutional WD/WN, vitals as above Respiratory normal respiratory effort; no respiratory distress Cardiovascular Rate/Rhythm: regular rate and regular rhythm Extremities: normal capillary refill Gastrointestinal (Abdomen) Inspection/Auscultation: abdomen normal to inspection Musculoskeletal no cyanosis or clubbing, extremities motor strength 5/5 Skin + incision (Prevena dressing in place and working well) Neurologic moves all extremities Psychiatric Orientation: alert and oriented x 3 Discharge Data Allergies Allergy/AdvReac Type Severity Reaction Status Date / Time latex Allergy Unknown Rash Verified 05/08/22 10:53 Penicillins Allergy Unknown Rash Verified 05/08/22 10:53 Fkvlidp-KUK-ImM Reductase AdvReac Intermediate body aches Verified 05/08/22 10:53 Inhibitor [Wbjcvvk-Ixj-Nge Reductase Inhibitor] adhesive AdvReac Unknown Rash Verified 05/08/22 10:53 gemfibrozil AdvReac Unknown BODY ACHES Verified 05/08/22 10:53 NSAIDS (Non-Steroidal AdvReac Unknown TOLD NOT Verified 05/08/22 10:53 Anti-Inflamma TO TAKE - HX STOMACH ULCER Consultations 05/08/22 18:51 Consult Hide Spreader Routine Procedures Performed Operation Date: 05/08/22 13:00 Actual Procedures p Left Femoral Endarterectomy with Bovine Patch,(Left) - Tyrese Garcia MD s Left Lower Extremity Angiogram with Lithotripsy Popliteal Artery and Superficial Femoral Artery (Left) - Tyrese Garcia MD Ordered Studies 05/08/22 11:13 EV angio LE LT Routine Hospital Course (1) PAD (peripheral artery disease): Patient is postoperative day 2 from his left femoral artery endarterectomy and patch as well as lithotripsy of his left superficial femoral artery and popliteal artery. He is doing well with good Doppler signals of the foot and loss of the numbness and tingling in his left foot. Discus[facility]ed [facility] for d/c home today. (2) Acute blood loss anemia: He did have a drop in hemoglobin secondary to surgery. He is asymptomatic. Total Time Total Time Spent Total Time Spent (In Minutes): 0 Discharge Plan Discharge Items Patient Disposition: Home - Self-Care Reason For Visit: Peripheral Artery Disease Discharge Diagnosis: 1. s/p LLE common femoral artery endarterectomy with bovine patch, lithotripsy of SFA and pop arteries 2. Severe PAD Condition on Discharge: Good Activity: Per Instructions section Non-emergency contact: Primary Care Provider and Surgeon Call non-emergency contact if: you have any medication questions, your pain is worsening, your pain is concerning for you, you have a fever, your wound has increased redness and your wound has increased drainage Follow-up/Referrals: Nitish Lam MD [Primary Care Provider] - 05/21/22 1:00 pm (Follow up with PCP within 2 weeks Will be seen by Dr Groves at the [facility]) Tyrese Garcia MD [Physician] - (Follow up with Dr Garcia or Xochitl Cruz PA-C in 2 weeks for staple removal. Office aware patient to follow up on Friday ) Diet: Carb Consistent or DM2 and Heart Healthy Addtl Attending Provider Instructions: ACTIVITY RECOMMENDATIONS: May shower, no bathing No lifting more than 10 lbs You have an incisional wound vac to Left groin. This is a single use unit. When the battery dies and the purple foam expands, remove the dressing and place in garbage. Call office if any questions. SPECIAL CARE INSTRUCTIONS: Call your doctor if: * Temperature above 101 degrees * Pain not relieved by pain medicine ordered * There is increased drainage or redness from any incision * You have any unanswered questions or concerns. Pending Studies at Discharge: No Stand-Alone Forms: [facility], Smoking Cessation Medications and DC Order Prescriptions: Continued glimepiride 1 mg tablet 1 mg PO QAM Qty: 90 3RF fenofibrate 160 mg tablet 160 mg PO QAM Qty: 90 3RF duloxetine 60 mg capsule,delayed release(DR/EC) 60 mg PO QAM Qty: 90 3RF metoprolol succinate 50 mg tablet extended release 24 hr 50 mg PO QAM Qty: 90 3RF Praluent Pen 150 mg/mL pen injector 150 mg subcut Q14D Qty: 2 11RF Rx Instructions: inject into abdomen, thigh, or upper arm (deltoid muscle); rotate sites triamcinolone acetonide 0.1 % cream 1 applic topical BID Qty: 30 1RF ketoconazole 2 % cream See Rx Instructions topical DAILY Qty: 30 1RF Rx Instructions: Apply a small amount to affected foot and leg at bedtime x 2 weeks topical daily; lisinopril 40 mg tablet 40 mg PO QAM Qty: 90 3RF metformin 500 mg tablet extended release 24 hr 2,000 mg PO QAM Qty: 360 3RF coQ10 (ubiquinol) 200 mg Capsule 200 mg PO QAM acetaminophen 650 mg Tablet Extended Release 1,300 mg PO UD PRN (Reason: ARTHRITIS PAIN) Label Comments: takes at least 2 tablets every day. folic acid 400 mcg Tablet 0.4 mg PO QAM clopidogrel 75 mg tablet 75 mg PO QAM Label Comments: just started on 04/20/22 pantoprazole 40 mg tablet,delayed release (DR/EC) 40 mg PO QAM metoprolol succinate 25 mg tablet extended release 24 hr 25 mg PO HS Rx Instructions: 25 mg PO daily bedtime; mecobalamin (vitamin B12) 1,000 mcg tablet,chewable 1,000 mcg PO QAM oxycodone-acetaminophen [Percocet] 5-325 mg tablet 1 tab PO Q6H PRN (Reason: pain) Qty: 30 0RF Discontinued tramadol 50 mg tablet 100 mg PO BID Qty: 120 0RF Discharge Orders: Discharge Order (Routine); Ordered 05/10/22 Ordered By: Xochitl Cruz Admission Data Admit Date/Time: 05/08/22 12:34 Attending Provider: Tyrese Garcia Admit Provider: Tyrese Garcia Primary Care Provider: Nitish Lam Other Providers: Fabian Saunders ; [facility],Home [facility] Other Interventions: Discharge Summary Assessment (RN) Last Done: 05/10/22 09:21
--- NOTE | 2022-06-03 10:06 | Operative Report ---
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 I identified the patient and participated in the time-out.: Yes Procedure Operation Date: 05/08/22 13:00 Actual Procedures p Left Femoral Endarterectomy with Bovine Patch,(Left) - Tyrese Garcia MD s Left Lower Extremity Angiogram with Lithotripsy Popliteal Artery and Superficial Femoral Artery (Left) - Tyrese Garcia MD Surgeon Tyrese Garcia MD Radiation Monitor Chanda,PAC Estimated Blood Loss 100 Findings Consistent with Post-Op Diagnosis Specimens None Anesthesia Type General Complications none Disposition Accompanied Patient To Recovery: No Disposition: Recovery Room Indications This is a 62-year-old gentleman with severe claudication which is limiting his daily activity of the left lower extremity. He was found to have severe stenosis of the left common femoral artery as well as the mid popliteal artery and a stenosis in the distal superficial femoral artery. Endarterectomy of left common femoral artery was recommended as well as intervention on the lower lesions. I have discussed the risks options and benefits of the procedure with the patient. The patient understands the risks options and benefits and agrees to the procedure. Description of Procedure The patient was taken the op room and placed supine position. Left lower extremities were prepped draped in sterile manner. Patient was identified and a timeout was performed. Longitudinal incision was made in the left groin. This was carried down to where the common femoral artery was identified. Is isolated being the ligament down to the bifurcation. Patient was heparinized at that time. The artery itself was severely calcified throughout there was a soft area of the distal external iliac artery just beneath the inguinal ligament. The common femoral was clamped as well as the profunda and superficial femoral artery. A longitudinal arteriotomy was started from the top of the calcification of the common femoral artery to the distal end. This revealed a heavily calcified common femoral artery which is barely open. Endarterectomies and started in the appropriate plane. Once all the plaque was removed, all loose debris and flaps were removed. The distal and the brachial vein was tacked down with 7-0 Prolene's. The arteriotomy was then closed with a bovine patch and 6-0 Prolene suture. After closure was completed clamps removed excellent flow through the common femoral artery. We then punctured the bovine patch inserted a micropuncture sheath. Arteriography left lower extremity showed the lesions of the popliteal artery and distal superficial femoral artery. An 035 wire was inserted into sheath through these lesions and the sheath exchanged to a 5 Palestinian sheath. We then used a 5 x 4 lithotripsy balloon in the popliteal and a 6 x 4 lithotripsy balloon on the superficial femoral artery with excellent results. Residual narrowing was less than 10% of both areas. Excellent flow was seen to the foot with palpable pulses. At this point the sheath was then pulled and the puncture site closed with interrupted 6-0 Prolene. After adequate stasis was noted the wounds were closed in usual fashion using running 2-0 Vicryl suture for the femoral sheath and a 3-0 Vicryl subcutaneous layer. Nahun were used for skin edges. A Prevena graft was then placed on the incision.The patient left the operation room in satisfactory condition and tolerated the procedure well. All needle and sponge counts were correct at the end of the procedure. Xochitl Cruz Pac assisted due to lack of resident availability and was necessary for positioning, draping, retraction, wound closure deep layers, subcutaneous tissue, and skin closure and was necessary for assisting with the case. I attest to the content of the Intraoperative Record and any orders documented therein. Any exceptions are noted below.
== END 2022-05-10 11:22 | disposition home health service (06) | DRG 253 ==
LOC: ASU 10:28 → 1E 12:34

== ENCOUNTER 2022-07-29 07:25 | Inpatient (IN) ==
[2022-07-29] MEDS ORDERED: dilTIAZem HCl 5 MG/ML 5 ML VIAL IV ONE (07:37)
[2022-07-29] MEDS ORDERED: MAGNESIUM SULFATE 1GM / D5W BAG IV ONE (07:45)
[2022-07-29] MEDS ORDERED: STAT IV Infusion **Titration per Protocol STA (07:48)
[2022-07-29] MEDS ORDERED: dilTIAZem HCl 5 MG/ML 5 ML VIAL IV STA (07:48)
[2022-07-29] MEDS ORDERED: SODIUM CHLORIDE 0.9% 1000ML 1,000 ML IV ONE (07:50)
[2022-07-29] MEDS ORDERED: MAGNESIUM SULFATE / D5W 1 GM/100 ML BAG IV STA (07:50)
[2022-07-29 08:02] LABS: Hematocrit (blood only) 30.3 % (42.0-52.0); Mean Corpuscular Hemoglobin 34.1 pg (25.0-34.0); Mean Corpuscular Volume 103.4 fL (80.0-100.0); Mean Platelet Volume 11.3 fL (9.4-12.4); Nucleated RBC # (auto) 0.02 K/uL (0-0.12); Nucleated RBC % (auto) 0.3 %; Platelet Count 322 K/uL (130-400); RDW Coefficient of Variation 15.4 % (11.5-14.5); Red Blood Count 2.93 M/uL (4.70-6.10); White Blood Count 6.52 K/ul (4.8-10.8)
[2022-07-29] MEDS: dilTIAZem HCL 125 MG in DEXTROSE 5% 100 ML IV SCH ×2 (08:06→18:45)
--- NOTE | 2022-07-29 08:19 | Emergency Department Note ---
Impression & Plan Atrial flutter with rapid ventricular response, Elevated troponin, Alcohol use, Abnormal CBC ED Provider Note NAME: RAKEL GAXIOLA JR AGE: 62 SEX: M : 1960 ARRIVES VIA: Walk-In INFORMANT: [Patient] ED PROVIDER(S): [Kevon Richardson MD] CHIEF COMPLAINT: Cardiac assessment HISTORY OF PRESENT ILLNESS: The patient is a 62-year-old male who presents to the ED from same-day surgery. He was there to have a spinal stimulator placed. The patient was found to be in a rapid A-fib/a flutter on ECG. He was sent to our ED. Patient did take his metoprolol this morning. He has been holding his Plavix for the last 4 days. He has a history of previous A-fib/a flutter and states eventually, he was cardioverted. The patient does not feel any different than normal. He was not short of breath, he did not have palpitations, there has been no chest pain. The patient does use alcohol daily. He typically drinks about 6 beers a day. Last alcohol intake was yesterday afternoon. He cannot recall ever having withdrawal symptoms if not drinking alcohol. PMHx/PSHx: See Below SOCIAL HISTORY: See Below. PHYSICAL EXAM: GENERAL: Patient is in no acute distress. HEENT: No acute trauma, normocephalic atraumatic, mucous membranes moist, no nasal congestion. NECK: No stridor, no adenopathy, no meningismus, trachea is midline. LUNGS: Clear to auscultation bilaterally, no wheeze, no rhonchi, breath sounds equal. HEART: Tachycardic and fairly regular, no murmurs heard. ABDOMEN: Soft, nontender, bowel sounds positive, no peritonitis. EXTREMITIES: No cyanosis, full range of motion of all the joints without pain or difficulty, no signs for acute trauma. NEUROLOGIC: Oriented x 3, no acute motor or sensory deficits, no focal weakness. SKIN: No rash, no jaundice, no diaphoresis. DIFFERENTIAL DIAGNOSIS: A-fib or a flutter, alcohol withdrawal, electrolyte imbalance, anemia, d ehydration, SVT, V. tach, IA, among others. EMERGENCY DEPARTMENT COURSE/PROCEDURES: Prior/Outside records reviewed: None. ECG per my interpretation: Indication was tachycardia. The ECG shows what appears to be atrial flutter with a 2-1 block. The rate is 154. There is some nonspecific ST change diffusely. There is a potential old septal infarct. There is no obvious ST elevation, no PVCs. The QTc is 384. Continuous Cardiac Monitoring per my interpretation: An order was placed for continuous cardiac monitoring. The monitor shows a rate of 151 with rapid atrial flutter. Critical Care Note: I have personally spent 53 minutes of critical care time in the direct management of this patient. This includes bedside care, interpretation of diagnostic studies, and testing, discussion with consultants, patient, and family members, and other required patient management activities. This 53 minutes is in excess of all separately billable procedures. MEDICAL DECISION MAKING: There is no leukocytosis. The patient does have an anemia with a hemoglobin of 10, this is baseline for the patient. There was a normal platelet count. No renal failure or significant electrolyte abnormality. No concerning liver enzyme elevation. The patient appeared to be in a euthyroid state. ECG showed atrial flutter with a rapid rate and 2-[address] elevation. Cardiac enzyme testing x1 was slightly elevated, this would be consistent with the tachycardia and potentially cardiac injury. COVID test returned negative. Chest film per my review did not show pneumonia or CHF. On exam, the patient was resting comfortably, he had no complaints. Patient received IV Lopressor, 5 mg was given, a second 5 mg dose was ordered. He was given a bolus of IV diltiazem and placed on a diltiazem drip. He was given a liter of IV saline. He was given 1 g of IV magnesium. After discussing things with cardiology, the patient received 0.25 mg of IV digoxin. The patient's tachycardia has been persistent despite numerous medications. He will require a hospital stay and further work-up. I am concerned that his alcohol use on a daily basis and the lack of alcohol today may be contributing to his presentation/tachycardia. I did speak with cardiology, Dr. Martino. Cardioversion was not indicated as the length of time he has been in this rhythm is unclear. I did speak with the patient about a hospital stay, I did talk with case manag rut. The on-call hospitalist was consulted. Of note, the patient had blast cells on his CBC differential, pathology recommended a hematology/oncology consult, this finding was likely incidental an d unrelated to his presentation. DISPOSITION: The patient's findings and presentation warrant a hospital stay. Past Med/Surg History Medical History Alcohol abuse Pt admits to >6 beers daily Bilateral carotid artery stenosis Per 11/2021 Carotid Doppler: 50-69% stenosis of right ICA, less than 50% stenosis of left ICA, greater than 50% stenosis of right ECA Antegrade flow in both vertebral arteries CAD in [place] artery s/p LAD stent () Chronic anemia Degenerative disc disease Diabetes mellitus, type 2 GERD (gastroesophageal reflux disease) Well controlled and stable History of anxiety History of chronic back pain Neurogenic claudication due to lumbar stenosis History of COVID-19 03/18/2022>resolved History of gastric ulcer No recent issues Hyperlipidemia Hypertension Low iron Myocardial infarction Anterolateral [place]- 2008, [place], had cardiac cath; f/u asa ovalle Neuropathy Paroxysmal atrial flutter 01/2021- with excessive alcohol intake- felt to be contributing component No AC. No recurrence per PCP records Peripheral arterial disease Severe occlusive disease- reason for procedure Tolerates Plavix better than ASA Sleep apnea "Mild to moderate"-cpap (has not been using for months) Surgical History Fusion of spine CERVICAL, "HAVE 80% OF MOTION" History of anesthesia reaction WITH BACK SURGERY 2004 - DISORIENTED, PULLED CATHETER OUT ([facility]) History of colonoscopy History of endarterectomy Left Femoral Endarterectomy with Bovine Patch History of esophagogastroduodenoscopy (EGD) History of heart artery stent 2006 or 2007, x1 stent, [place]; f/u asa ovalle History of lumbar surgery X 3 - 2004, 2006, 2019 History of nasal septoplasty History of total knee replacement RT/LEFT (LEFT REVISION) Hx of cataract extraction rt/lt. Hx of transurethral resection of prostate Family History Mother Family history of diabetes mellitus Father Family history of diabetes mellitus Other No family history of adverse response to anesthesia Denies family history of Ovarian cancer Prostate cancer Myocardial infarction Breast cancer Colorectal cancer Social History Smoking Status: Current every day smoker Tobacco Type: Cigarettes Age Started Using Tobacco: 18; Cigarettes Per Day: 6 cigs >ADVISED; Second Hand Exposure: Yes ( SMOKES); Hx Alcohol Use: Yes Alcohol type: beer Alcohol type Comment: 6-8 beers Hx Substance Use: No Preferred Language: [place] Communication Ability: Effective Visual Impairment: No Limitations Urogynecology Physician Required: No Beliefs That Will Affect Care: None marital status: Current Living Situation: Spouse How many Children do You have: 4 Feels Safe at Home: Yes Safety Concerns: Feels Safe At This Time Childhood Exposure to Second-Hand Smoke: Yes Dental Care, Regularly: Yes Physical Activity Frequency: Does not Exercise Seatbelt Use: always Sunscreen Use: No Assistive Devices: CPAP and Glasses Allergies Allergies Allergy/AdvReac Type Severity Reaction Status Date / Time latex Allergy Mild Rash Verified 07/23/22 09:18 Penicillins Allergy Mild Rash Verified 07/23/22 09:18 gemfibrozil AdvReac Intermediate BODY ACHES Verified 07/23/22 09:18 [id number] Reductase AdvReac Intermediate body aches Verified 07/23/22 09:18 Inhibitor [Ryjvkav-Mia-Aet Reductase Inhibitor] adhesive AdvReac Mild Rash Verified 07/23/22 09:18 NSAIDS (Non-Steroidal AdvReac Unknown TOLD NOT Verified 07/23/22 09:18 Anti-Inflamma TO TAKE - HX STOMACH ULCER Home Meds Home Medications Medication Instructions Recorded Confirmed acetaminophen 650 mg 1,300 mg PO UD PRN ARTHRITIS PAIN 12/06/20 07/29/22 tablet,extended release folic acid 400 mcg tablet 0.4 mg PO QAM 04/23/22 07/29/22 mecobalamin (vitamin B12) 1,000 1,000 mcg PO QAM 04/23/22 07/29/22 mcg chewable tablet Previous Rx's Medication Instructions Recorded fenofibrate 160 mg tablet 160 mg PO QAM #90 tabs 07/17/21 duloxetine 60 mg capsule,delayed 60 mg PO QAM #90 caps 01/21/22 release alirocumab 150 mg/mL subcutaneous 150 mg subcut Q14D #2 mL 03/21/22 pen injector (Praluent Pen) metformin 500 mg tablet,extended 2,000 mg PO QAM #360 tabs 04/24/22 release 24 hr tramadol 50 mg tablet 100 mg PO BID #120 tabs 06/05/22 glimepiride 1 mg tablet 1 mg PO QAM #30 tabs 06/20/22 lisinopril 40 mg tablet 40 mg PO QAM #30 tabs 06/20/22 metoprolol succinate 50 mg 50 mg PO QAM #30 tabs 06/20/22 tablet,extended release 24 hr clotrimazole-betamethasone 1 1 applic topical BID 2 weeks #45 07/03/22 %-0.05 % topical cream grams gabapentin 400 mg capsule 800 mg PO TID #180 caps 07/03/22 metoprolol succinate 25 mg 25 mg PO HS #90 tabs 07/03/22 tablet,extended release 24 hr clopidogrel 75 mg tablet 75 mg PO QAM #90 tabs 07/19/22 pantoprazole 40 mg tablet,delayed 40 mg PO QAM #90 tabs 07/19/22 release Results & Data (ED) Vital Signs Vital Signs - 24 hr 07/29/22 07:27 07/29/22 07:36 07/29/22 07:41 Temperature 37.4 C Temperature Source Oral Pulse Rate 153 H 152 H 153 H Pulse Rate [Left] Pulse Rhythm Regular Pulse Rhythm [Left] Pulse Strength Normal Pulse Strength [Left] Respiratory Rate 17 21 Respiratory Effort / Characteristics Non-Labored Respiratory Depth Normal Respiratory Pattern Regular Blood Pressure 116/56 L 103/74 Blood Pressure [Left Arm] Blood Pressure Mean 76 83 Blood Pressure Mean [Left Arm] Blood Pressure Position Lying Blood Pressure Position [Left Arm] Pulse Oximetry 96 95 Oxygen Delivery Method Room Air Room Air Sepsis Recent Fever Within 48 Hours No Sepsis New/Unexplained Change in Mental Status No Sepsis Action Taken by Nursing No Action Required 07/29/22 07:52 07/29/22 07:53 07/29/22 07:58 Temperature Temperature Source Pulse Rate 153 H 151 H 152 H Pulse Rate [Left] Pulse Rhythm Pulse Rhythm [Left] Pulse Strength Pulse Strength [Left] Respiratory Rate 20 22 20 Respiratory Effort / Characteristics Respiratory Depth Respiratory Pattern Blood Pressure 114/66 114/80 103/75 Blood Pressure [Left Arm] Blood Pressure Mean 82 91 84 Blood Pressure Mean [Left Arm] Blood Pressure Position Blood Pressure Position [Left Arm] Pulse Oximetry 94 94 94 Oxygen Delivery Method Room Air Room Air Room Air Sepsis Recent Fever Within 48 Hours Sepsis New/Unexplained Change in Mental Status Sepsis Action Taken by Nursing 07/29/22 08:15 07/29/22 08:31 07/29/22 08:31 Temperature Temperature Source Pulse Rate 153 H 152 H 152 H Pulse Rate [Left] Pulse Rhythm Pulse Rhythm [Left] Pulse Strength Pulse Strength [Left] Respiratory Rate 20 17 Respiratory Effort / Characteristics Respiratory Depth Respiratory Pattern Blood Pressure 100/82 103/68 103/68 Blood Pressure [Left Arm] Blood Pressure Mean 88 79 Blood Pressure Mean [Left Arm] Blood Pressure Position Blood Pressure Position [Left Arm] Pulse Oximetry 94 93 Oxygen Delivery Method Room Air Room Air Sepsis Recent Fever Within 48 Hours Sepsis New/Unexplained Change in Mental Status Sepsis Action Taken by Nursing 07/29/22 08:40 07/29/22 09:19 07/29/22 09:00 Temperature Temperature Source Pulse Rate 152 H 150 H Pulse Rate [Left] 150 H Pulse Rhythm Pulse Rhythm [Left] Regular Pulse Strength Pulse Strength [Left] Normal Respiratory Rate 17 20 17 Respiratory Effort / Characteristics Non-Labored Respiratory Depth Normal Respiratory Pattern Regular Blood Pressure 103/71 Blood Pressure [Left Arm] 110/73 Blood Pressure Mean 81 Blood Pressure Mean [Left Arm] 85 Blood Pressure Position Blood Pressure Position [Left Arm] Lying Pulse Oximetry 93 98 94 Oxygen Delivery Method Room Air Room Air Room Air Sepsis Recent Fever Within 48 Hours Sepsis New/Unexplained Change in Mental Status Sepsis Action Taken by Nursing 07/29/22 09:10 07/29/22 10:15 07/29/22 10:24 Temperature Temperature Source Pulse Rate 151 H Pulse Rate [Left] 152 H 152 H Pulse Rhythm Pulse Rhythm [Left] Pulse Strength Pulse Strength [Left] Respiratory Rate 16 16 16 Respiratory Effort / Characteristics Non-Labored Respiratory Depth Normal Respiratory Pattern Blood Pressure Blood Pressure [Left Arm] 92/71 L 98/70 L Blood Pressure Mean Blood Pressure Mean [Left Arm] 78 79 Blood Pressure Position Blood Pressure Position [Left Arm] Pulse Oximetry 93 95 95 Oxygen Delivery Method Room Air Room Air Room Air Sepsis Recent Fever Within 48 Hours Sepsis New/Unexplained Change in Mental Status Sepsis Action Taken by Nursing 07/29/22 09:30 07/29/22 09:40 07/29/22 09:45 Temperature Temperature Source Pulse Rate 150 H 151 H 152 H Pulse Rate [Left] Pulse Rhythm Pulse Rhythm [Left] Pulse Strength Pulse Strength [Left] Respiratory Rate 15 17 16 Respiratory Effort / Characteristics Respiratory Depth Respiratory Pattern Blood Pressure 111/77 99/76 L 98/75 L Blood Pressure [Left Arm] Blood Pressure Mean 88 83 82 Blood Pressure Mean [Left Arm] Blood Pressure Position Blood Pressure Position [Left Arm] Pulse Oximetry 94 94 93 Oxygen Delivery Method Room Air Sepsis Recent Fever Within 48 Hours Sepsis New/Unexplained Change in Mental Status Sepsis Action Taken by Nursing 07/29/22 09:50 07/29/22 10:00 07/29/22 10:05 Temperature Temperature Source Pulse Rate 152 H 152 H 152 H Pulse Rate [Left] Pulse Rhythm Pulse Rhythm [Left] Pulse Strength Pulse Strength [Left] Respiratory Rate 16 16 17 Respiratory Effort / Characteristics Respiratory Depth Respiratory Pattern Blood Pressure 107/76 110/69 107/70 Blood Pressure [Left Arm] Blood Pressure Mean 86 82 82 Blood Pressure Mean [Left Arm] Blood Pressure Position Blood Pressure Position [Left Arm] Pulse Oximetry 93 91 Oxygen Delivery Method Room Air Room Air Sepsis Recent Fever Within 48 Hours Sepsis New/Unexplained Change in Mental Status Sepsis Action Taken by Nursing 07/29/22 10:15 07/29/22 10:15 07/29/22 10:20 Temperature Temperature Source Pulse Rate 141 H 152 H Pulse Rate [Left] Pulse Rhythm Pulse Rhythm [Left] Pulse Strength Pulse Strength [Left] Respiratory Rate 13 17 Respiratory Effort / Characteristics Respiratory Depth Respiratory Pattern Blood Pressure 92/71 L 92/71 L Blood Pressure [Left Arm] Blood Pressure Mean 78 78 Blood Pressure Mean [Left Arm] Blood Pressure Position Blood Pressure Position [Left Arm] Pulse Oximetry 93 92 Oxygen Delivery Method Room Air Room Air Sepsis Recent Fever Within 48 Hours Sepsis New/Unexplained Change in Mental Status Sepsis Action Taken by Nursing 07/29/22 10:24 07/29/22 10:24 07/29/22 10:30 Temperature Temperature Source Pulse Rate 141 H Pulse Rate [Left] Pulse Rhythm Pulse Rhythm [Left] Pulse Strength Pulse Strength [Left] Respiratory Rate 16 Respiratory Effort / Characteristics Respiratory Depth Respiratory Pattern Blood Pressure 93/63 L 81/61 L Blood Pressure [Left Arm] Blood Pressure Mean 73 67 Blood Pressure Mean [Left Arm] Blood Pressure Position Blood Pressure Position [Left Arm] Pulse Oximetry Oxygen Delivery Method Sepsis Recent Fever Within 48 Hours Sepsis New/Unexplained Change in Mental Status Sepsis Action Taken by Nursing 07/29/22 10:30 07/29/22 10:32 07/29/22 10:32 Temperature Temperature Source Pulse Rate 130 H 150 H Pulse Rate [Left] Pulse Rhythm Pulse Rhythm [Left] Pulse Strength Pulse Strength [Left] Respiratory Rate 17 27 H Respiratory Effort / Characteristics Respiratory Depth Respiratory Pattern Blood Pressure 103/65 103/65 Blood Pressure [Left Arm] Blood Pressure Mean 77 77 Blood Pressure Mean [Left Arm] Blood Pressure Position Blood Pressure Position [Left Arm] Pulse Oximetry 92 96 Oxygen Delivery Method Room Air Room Air Sepsis Recent Fever Within 48 Hours Sepsis New/Unexplained Change in Mental Status Sepsis Action Taken by Nursing 07/29/22 10:35 07/29/22 10:35 07/29/22 10:39 Temperature Temperature Source Pulse Rate 152 H Pulse Rate [Left] Pulse Rhythm Pulse Rhythm [Left] Pulse Strength Pulse Strength [Left] Respiratory Rate 25 H Respiratory Effort / Characteristics Respiratory Depth Respiratory Pattern Blood Pressure 94/69 L 97/73 L Blood Pressure [Left Arm] Blood Pressure Mean 77 81 Blood Pressure Mean [Left Arm] Blood Pressure Position Blood Pressure Position [Left Arm] Pulse Oximetry 93 Oxygen Delivery Method Room Air Sepsis Recent Fever Within 48 Hours Sepsis New/Unexplained Change in Mental Status Sepsis Action Taken by Nursing 07/29/22 10:39 07/29/22 10:40 07/29/22 10:40 Temperature Temperature Source Pulse Rate 130 H 140 H Pulse Rate [Left] Pulse Rhythm Pulse Rhythm [Left] Pulse Strength Pulse Strength [Left] Respiratory Rate 15 18 Respiratory Effort / Characteristics Respiratory Depth Respiratory Pattern Blood Pressure 93/68 L Blood Pressure [Left Arm] Blood Pressure Mean 76 Blood Pressure Mean [Left Arm] Blood Pressure Position Blood Pressure Position [Left Arm] Pulse Oximetry 94 93 Oxygen Delivery Method Room Air Room Air Sepsis Recent Fever Within 48 Hours Sepsis New/Unexplained Change in Mental Status Sepsis Action Taken by Jail Medications Current Medication List: was personally reviewed by me Laboratory Data Attestation: I reviewed the patient's lab results. 07/29/22 07:35 07/29/22 07:35 Lab Results 07/29/22 07/29/22 07/29/22 Range/Units 07:35 07:35 07:35 WBC 6.52 (4.8-10.8) K/ul RBC 2.93 L (4.70-6.10) M/uL Hgb 10.0 L (14.0-18.0) g/dl Hct 30.3 L (42.0-52.0) % MCV 103.4 H (80.0-100.0) fL MCH 34.1 H (25.0-34.0) pg MCHC 33.0 (32.0-36.0) g/dL RDW Std Deviation 59.0 H (36.4-46.3) fL RDW Coeff of Kvng 15.4 H (11.5-14.5) % Plt Count 322 (130-400) K/uL MPV 11.3 (9.4-12.4) fL Absolute Nucleated RBC 0.02 (0-0.12) K/uL Nucleated RBC % (auto) 0.3 % Neutrophils % (Manual) 72 % Lymphocytes % (Manual) 15 % Monocytes % (Manual) 5 % Eosinophils % (Manual) 3 % Basophils % (Manual) 1 % Metamyelocytes % (Man) 1 % Myelocytes % (Man) 3 % Blast Cells % (Manual) 1 % Neutrophils # (Manual) 4.69 (1.40-6.50) K/uL Total Absolute Neuts 4.69 (1.4-6.5) K/uL Lymphocytes # (Manual) 0.98 L (1.2-3.4) K/uL Total Abs Lymphocytes 0.98 L (1.2-3.4) K/uL Monocytes # (Manual) 0.33 (0.11-0.59) K/uL Eosinophils # (Manual) 0.20 (0-0.50) K/uL Basophils # (Manual) 0.07 (0-0.2) K/uL Metamyelocytes # (Man) 0.07 H (0-0) K/uL Myelocytes # (Manual) 0.20 H (0-0) K/uL Blast Cells # (Man) 0.07 H (0-0) K/uL Blood Smear Review Polychromasia 1+ Sodium 136 (136-145) mmol/L Potassium 4.6 (3.5-5.1) mmol/L Chloride 101 (98-107) mmol/L Carbon Dioxide 29 (21-32) mmol/L Anion Gap 6 (3-11) BUN 18 (6-23) mg/dl Creatinine 0.91 (0.6-1.4) mg/dl Est Cr Clr Drug Dosing 94.0 ml/min Est GFR ( Amer) 102.9 ml/min Est GFR (Non-Af Amer) 88.8 ml/min BUN/Creatinine Ratio 19.8 (10-20) Glucose 170 H (70-99(Fasting)) mg/dl Calcium 9.7 (8.5-10.1) mg/dl Magnesium 2.0 (1.7-2.4) mg/dl Total Bilirubin 0.3 (0.2-1.0) mg/dl AST 14 (13-39) U/L ALT 13 (7-52) U/L Alkaline Phosphatase 57 (34-104) U/L Troponin I High Sens 168.9 H* (0-20) pg/ml Total Protein 7.0 (6.0-8.3) gm/dl Albumin 4.0 (3.4-5.0) gm/dl Globulin 3.0 (2.5-4.0) gm/dl Albumin/Globulin Ratio 1.3 (0.9-2) TSH 1.196 (0.300-4.500) uIu/ml SARS-CoV-2, RNA, NAAT (NEGATIVE) 07/29/22 Range/Units 07:35 WBC (4.8-10.8) K/ul RBC (4.70-6.10) M/uL Hgb (14.0-18.0) g/dl Hct (42.0-52.0) % MCV (80.0-100.0) fL MCH (25.0-34.0) pg MCHC (32.0-36.0) g/dL RDW Std Deviation (36.4-46.3) fL RDW Coeff of Kvng (11.5-14.5) % Plt Count (130-400) K/uL MPV (9.4-12.4) fL Absolute Nucleated RBC (0-0.12) K/uL Nucleated RBC % (auto) % Neutrophils % (Manual) % Lymphocytes % (Manual) % Monocytes % (Manual) % Eosinophils % (Manual) % Basophils % (Manual) % Metamyelocytes % (Man) % Myelocytes % (Man) % Blast Cells % (Manual) % Neutrophils # (Manual) (1.40-6.50) K/uL Total Absolute Neuts (1.4-6.5) K/uL Lymphocytes # (Manual) (1.2-3.4) K/uL Total Abs Lymphocytes (1.2-3.4) K/uL Monocytes # (Manual) (0.11-0.59) K/uL Eosinophils # (Manual) (0-0.50) K/uL Basophils # (Manual) (0-0.2) K/uL Metamyelocytes # (Man) (0-0) K/uL Myelocytes # (Manual) (0-0) K/uL Blast Cells # (Man) (0-0) K/uL Blood Smear Review Polychromasia Sodium (136-145) mmol/L Potassium (3.5-5.1) mmol/L Chloride (98-107) mmol/L Carbon Dioxide (21-32) mmol/L Anion Gap (3-11) BUN (6-23) mg/dl Creatinine (0.6-1.4) mg/dl Est Cr Clr Drug Dosing ml/min Est GFR ( Amer) ml/min Est GFR (Non-Af Amer) ml/min BUN/Creatinine Ratio (10-20) Glucose (70-99(Fasting)) mg/dl Calcium (8.5-10.1) mg/dl Magnesium (1.7-2.4) mg/dl Total Bilirubin (0.2-1.0) mg/dl AST (13-39) U/L ALT (7-52) U/L Alkaline Phosphatase (34-104) U/L Troponin I High Sens (0-20) pg/ml Total Protein (6.0-8.3) gm/dl Albumin (3.4-5.0) gm/dl Globulin (2.5-4.0) gm/dl Albumin/Globulin Ratio (0.9-2) TSH (0.300-4.500) uIu/ml SARS-CoV-2, RNA, NAAT NEGATIVE (NEGATIVE) Administered Medications Gabapentin (Gabapentin 400 Mg Cap) 800 mg PO TID LULU Stop: 08/28/22 13:59 Last Admin: 07/29/22 14:43 Dose: 800 mg Documented By: PAU Diltiazem HCl 125 mg/ Dextrose 125 mls @ 10 mls/hr IV .[id number] LULU; Protocol Stop: 08/28/22 07:59 Last Titration: 07/29/22 15:00 Dose: 10 mg/hr, 10 mls/hr Documented By: PAU Co-signed By: MOISE Titration: 07/29/22 09:32 Dose: 15 mg/hr, 15 mls/hr Documented By: SABRINA Co-signed By: SRIKANTH Titration: 07/29/22 08:46 Dose: 10 mg/hr, 10 mls/hr Documented By: SABRINA Co-signed By: SRIKANTH Admin: 07/29/22 08:06 Dose: 5 mg/hr, 5 mls/hr Documented By: SABRINA Co-signed By: SRIKANTH Thiamine HCl 100 mg/ Syringe 10 mls @ 2 mls/min IV QAM LULU Stop: 08/28/22 11:14 Last Admin: 07/29/22 14:43 Dose: 2 mls/min Documented By: PAU Folic Acid 1 mg/ Syringe 10 mls @ 5 mls/min IV QAM LULU Stop: 08/28/22 11:14 Last Admin: 07/29/22 14:43 Dose: 5 mls/min Documented By: PAU Insulin Aspart (Insulin Aspart Per Unit) 0 units SC Q6H LULU Stop: 08/28/22 11:14 Last Admin: 07/29/22 13:35 Dose: Not Given Documented By: PAU Discontinued Medications Diltiazem HCl (Diltiazem Hcl 5 Mg/Ml 5 Ml Vial) Confirm Administered Dose 25 mg IV .STK-MED ONE Stop: 07/29/22 07:38 Last Admin: 07/29/22 07:53 Dose: Not Given Documented By: SABRINA Diltiazem HCl (Diltiazem Hcl 5 Mg/Ml 5 Ml Vial) 10 mg IV NOW STA Stop: 07/29/22 07:49 Last Admin: 07/29/22 07:51 Dose: 10 mg Documented By: SABRINA Co-signed By: SRIKANTH Magnesium Sulfate/Dextrose (Magnesium Sulfate / D5w) 1 gm in 100 mls @ 100 mls/hr IV NOW STA Stop: 07/29/22 08:49 Last Infusion: 07/29/22 09:00 Dose: 0 mls/hr Documented By: Admin: 07/29/22 07:53 Dose: 100 mls/hr Documented By: SABRINA Sodium Chloride (Nss 1000ml) 1,000 mls @ 999 mls/hr IV .Q1H1M ONE Stop: 07/29/22 08:50 Last Infusion: 07/29/22 09:00 Dose: 0 mls/hr Documented By: Admin: 07/29/22 07:53 Dose: 999 mls/hr Documented By: SABRINA Digoxin 250 mcg/ Syringe 10 mls @ 2 mls/min IV ONE ONE Stop: 07/29/22 10:56 Last Admin: 07/29/22 11:35 Dose: 2 mls/min Documented By: MARIZA Digoxin 250 mcg/ Syringe 10 mls @ 2 mls/min IV ONE ONE Stop: 07/29/22 15:34 Last Admin: 07/29/22 15:46 Dose: 2 mls/min Documented By: PAU Magnesium Sulfate/Dextrose (Magnesium Sulfate 1gm / D5w Bag) Confirm Administered Dose 1 gm IV .STK-MED ONE Stop: 07/29/22 07:46 Last Admin: 07/29/22 07:53 Dose: Not Given Documented By: SABRINA Metoprolol Tartrate (Metoprolol Tartrate 1 Mg/Ml Vial) 5 mg IV NOW STA Stop: 07/29/22 08:30 Last Admin: 07/29/22 08:31 Dose: 5 mg Documented By: SABRINA Metoprolol Tartrate (Metoprolol Tartrate 1 Mg/Ml Vial) Confirm Administered Dose 5 mg IV .STK-MED ONE Stop: 07/29/22 08:31 Last Admin: 07/29/22 08:47 Dose: Not Given Documented By: SABRINA Metoprolol Tartrate (Metoprolol Tartrate 1 Mg/Ml Vial) 5 mg IV NOW STA Stop: 07/29/22 10:13 Last Admin: 07/29/22 10:17 Dose: 2.5 mg Documented By: SRIKANTH Miscellaneous (Stat Iv Infusion Titration Per Protocol) 1 each N/A NOW STA Stop: 07/29/22 07:49 Last Admin: 07/29/22 08:07 Dose: Not Given Documented By: SABRINA Imaging Data Radiologist's Impression: Chest X-Ray 07/29/22 07:50 SINGLE VIEW CHEST CLINICAL HISTORY: Generalized weakness FINDINGS: 2 AP, portable, upright chest radiographs are compared to study dated 06/26/2022 and correlated with chest CT dated 02/16/2021. The examination is degraded by portable technique and apical lordotic positioning. The heart is enlarged noting atherosclerotic calcification of the thoracic aorta. The pulmonary vasculature is noncongested. The lungs and pleural spaces are clear noting mild bibasilar scarring/atelectasis. No pneumothorax is seen. The bony thorax is grossly intact. IMPRESSION: Cardiomegaly with no acute cardiopulmonary abnormality identified. ACT 112: Negative or not required by law. Electronically signed by: Kevon Hwang M.D. 07/29/2022 8:30 AM Discharge Plan Visit Data Chief Complaint: Cardiac Assessment Stated Complaint: AFIB ED Provider: Kevon Richardson Discharge Problem: Atrial flutter with rapid ventricular response, Elevated troponin, Alcohol use, Abnormal CBC Patient Disposition: Admitted As Inpatient Condition: Fair Discharge Instructions Interventions: ED Discharge Assessment Last Done: 07/29/22 12:35
[2022-07-29 08:22] LABS: Albumin Globulin Ratio 1.3 (0.9-2); BUN Creatinine Ratio 19.8 (10-20); Bilirubin,Total 0.3 mg/dl (0.2-1.0); Calcium 9.7 mg/dl (8.5-10.1); Est GFR (African American) 102.9 ml/min; Est GFR (Non-African American) 88.8 ml/min; Potassium 4.6 mmol/L (3.5-5.1)
[2022-07-29] MEDS ORDERED: METOPROLOL TARTRATE 1 MG/ML VIAL IV STA ×2 (08:29→10:12)
[2022-07-29] MEDS ORDERED: METOPROLOL TARTRATE 1 MG/ML VIAL IV ONE (08:30)
--- NOTE | 2022-07-29 08:31 | XRay Report ---
SINGLE VIEW CHEST CLINICAL HISTORY: Generalized weakness FINDINGS: 2 AP, portable, upright chest radiographs are compared to study dated 06/26/2022 and correlat ed with chest CT dated 02/16/2021. The examination is degraded by portable technique and apical lordot ic positioning. The heart is enlarged noting atherosclerotic calcification of the thoracic aorta. The pulmonary vasculature is noncongested. The lungs and pleural spaces are clear noting mild bibasilar scarring/atelectasis. No pneumothorax is seen. The bony thorax is grossly intact. IMPRESSION: Cardiomegaly with no acute cardiopulmonary abnormality identified. ACT 112: Negative or not required by law. Electronically signed by: Kevon Hwang M.D. 07/29/2022 8:30 AM
[2022-07-29 09:17] LABS: Troponin I High Sensitivity 168.9 pg/ml (0-20)
[2022-07-29 10:30] LABS: ALC (manual) 0.98 K/uL (1.2-3.4); ANC (manual) 4.69 K/uL (1.4-6.5); Basophils # (manual) 0.07 K/uL (0-0.2); Basophils % (manual) 1 %; Blast # (manual) 0.07 K/uL (0-0); Blast Cells % (manual) 1 %; Eosinophils % (manual) 3 %; Lymphocytes # (manual) 0.98 K/uL (1.2-3.4); Lymphocytes % (manual) 15 %; Metamyelocytes # (manual) 0.07 K/uL (0-0); Metamyelocytes % (manual) 1 %; Monocytes # (manual) 0.33 K/uL (0.11-0.59); Monocytes % (manual) 5 %; Myelocytes % (manual) 3 %; Neutrophils # (manual) 4.69 K/uL (1.40-6.50); Neutrophils % (manual) 72 %; Polychromasia 1+
[2022-07-29] MEDS ORDERED: DIGOXIN 250 MCG in SYRINGE 9 ML IV ONE ×2 (10:52→15:30)
--- NOTE | 2022-07-29 11:01 | History & Physical Report ---
Date of Service July 29, 2022 Assessment & Plan (1) Atrial flutter with rapid ventricular response: Plan: -Admit to the PCU on tele -The patient is currently afebrile, hemodynamically stable, stable on RA but still with HR in the 140's -Patient is currently on the Diltiazem drip running at 15 mg/hr, coordinating with Nursing Staff to give the initial 250 mcg of Dig JODI -Consulted and spoke with Cardiology, appreciate their help >Continue Dilt drip and give 250 mcg Dig, monitor for improvement >They will evaluate shortly -Will keep patient NPO besides meds until he is evaluated by Cardiology -Will keep cardioversion equipment at bedside in case of hemodynamic instability -Will discuss possible anticoagulation with Cardiology and Dr. Khalil -Hold lisinopril and home metoprolol for now until his HR is controlled -BL SCD's to start for DVT PPX, will add chemical anticoagulation when confirmed with Cards and Dr. Khalil -AM CBC, CMP, PT/INR (2) Elevated troponin: Plan: -Initial high sensitivity trop elevated at 168 -Patient has been asymptomatic, signs of ST depression in the lateral and inferior leads, likely due to demand -Will repeat another high sensitivity trop STAT and trend until it begins to decline -Continue to monitor on tele -FU Cards consult (3) Alcohol abuse: Plan: -Patient noted to drink approximately 6 beers daily, last drink was reported as yesterday afternoon -Recent AWSS score was 3, will start AWSS protocol for possible withdrawal -Will give 100 mg IV thiamine and 1mg IV folic acid, continue in the am -Continue to monitor on tele (4) PAD (peripheral artery disease): Plan: -Continue to hold plavix for now as he was scheduled for lumbar spinal stim placement with Dr. Khalil -Will discussed anticoagulation with Cards and Dr. Khalil (5) Neuropathy: Plan: -Continue Gabapentin (6) Hyperlipidemia: Plan: -Intolerant to statins -Is on Praluent and fenofibrate, hold for now (7) Diabetes mellitus, type 2: Plan: -Hold metformin and glimepiride -Last A1c in 03/2022 was 6.6 -Monitor BSG q6h while NPO, goal is 110-140 -Will start with 5 units Lantus BID, Correction factor of 45 with carb ratio of 15 -Start DM II diet when cleared to eat (8) Macrocytic anemia: Plan: -Stable at 103, has been improving -Continue home B12 -Restart PO folic acid when able to tolerate PO intake (9) Current smoker: Plan: -Approximately 1/2 PPD -Denies the need for nicotine patch at this time -Continue to stress cessation (10) Neurogenic claudication: Plan: -Continue Gabapentin and tramadol Plan The patient was discussed with Dr. Hopkins at the time of the admission History of Present Illness Chief Complaint: Afib/A-flutter Primary Care Provider: Nitish Lam MD Jackson is a 60-year-old gentleman with a history significant for CAD s/p mid LAD PCI x2, atrial flutter s/p cardioversion, peripheral arterial disease s/p L common femoral endarterectomy with bovine patch and lithotripsy of SFA and Popliteal arteries (on Plavix), carotid artery stenosis, hypertension, dyslipidemia (intolerant to statin therapy), type 2 diabetes, gastric ulcer, lumbar stenosis with neurogenic claudication, sleep apnea (declined CPAP), and current alcohol abuse who presented to the [facility] ED from [id number] on 07/29/22 after being found in atrial flutter. Per chart review, the patient was scheduled to have a lumbar spinal stimulator placed with Dr. Khalil today. Upon arrival to [id number] he was found to be in atrial flutter and was sent to the ED. In the ED the patient was found to be afebrile, hemodynamically stable, stable on RA, but tachycardic with HR in the 150s. Labs were significant for a WBC WNL, stable Hgb at 10.0, stable platelets at 322, MCV of 103, stable Cr of 0.91, stable electrolytes, glucose of 179, LFTs WNL, initial high sensitivity trop of 168, TSH WNL, and covid 19 screen negative. Chest xray was read as Cardiomegaly with no acute cardiopulmonary abnormality identified.. Initial ECG shows atrial flutter with a 2:1 AV conduction, ST depressions in the inferior and lateral leads. The patient was initially given 5 mg IV Lopressor, 1L NSS, and 1gm IV magnesium without resolution of his tachycardia. He was then given 10 mg IV diltiazem and required a diltiazem drip at 15 gm/hr. The patient was given an additional 5 mg IV Lopressor but his HR remained in the 130's-140's. The ED staff spoke with Cardiology who recommended 250 mcg of IV Digoxin and to continue the Diltiazem drip until his rate is controlled. At the time of the exam the patient was resting in bed in no acute distress with his and Granddaughter sitting bedside. He states that he has been in his normal state of health when he arrived to the [id number] this am. He confirmed that he took his am dose of 50 mg PO metoprolol succinate. He has been asymptomatic throughout the day including at the time of my exam with his HR in the 140's-150's. He denies recent fevers, chills, chest pain, SOB, heart palpitations, nausea, vomiting, diarrhea, dysuria, hematuria, LE swelling and recent trauma. His las dose of Plavix was on 07/24/22. When asked about his drinking the patient confirms that he drinks approximately 6 beers daily, his last drink was yesterday afternoon. He denies a previous history of serious alcohol withdrawal symptoms including withdrawal seizures. He is still smoking approximately 1/2 PPD and is not interested in nicotine patches while here. Please refer to Dr. Hopkins's attestation for any changes to the treatment plan Allergies Allergy/AdvReac Type Severity Reaction Status Date / Time latex Allergy Mild Rash Verified 07/23/22 09:18 Penicillins Allergy Mild Rash Verified 07/23/22 09:18 gemfibrozil AdvReac Intermediate BODY ACHES Verified 07/23/22 09:18 Jifajti-ZPK-VyD Reductase AdvReac Intermediate body aches Verified 07/23/22 09:18 Inhibitor [Gucibbs-Ejp-Cws Reductase Inhibitor] adhesive AdvReac Mild Rash Verified 07/23/22 09:18 NSAIDS (Non-Steroidal AdvReac Unknown TOLD NOT Verified 07/23/22 09:18 Anti-Inflamma TO TAKE - HX STOMACH ULCER Home Medications Medication Instructions Recorded Confirmed Type acetaminophen 650 mg 1,300 mg PO UD PRN ARTHRITIS PAIN 12/06/20 07/29/22 History tablet,extended release fenofibrate 160 mg tablet 160 mg PO QAM #90 tabs 07/17/21 07/29/22 Rx duloxetine 60 mg capsule,delayed 60 mg PO QAM #90 caps 01/21/22 07/29/22 Rx release alirocumab 150 mg/mL subcutaneous 150 mg subcut Q14D #2 mL 03/21/22 07/29/22 Rx pen injector (Praluent Pen) folic acid 400 mcg tablet 0.4 mg PO QAM 04/23/22 07/29/22 History mecobalamin (vitamin B12) 1,000 1,000 mcg PO QAM 04/23/22 07/29/22 History mcg chewable tablet metformin 500 mg tablet,extended 2,000 mg PO QAM #360 tabs 04/24/22 07/29/22 Rx release 24 hr tramadol 50 mg tablet 100 mg PO BID #120 tabs 06/05/22 07/29/22 Rx glimepiride 1 mg tablet 1 mg PO QAM #30 tabs 06/20/22 07/29/22 Rx lisinopril 40 mg tablet 40 mg PO QAM #30 tabs 06/20/22 07/29/22 Rx metoprolol succinate 50 mg 50 mg PO QAM #30 tabs 06/20/22 07/29/22 Rx tablet,extended release 24 hr clotrimazole-betamethasone 1 1 applic topical BID 2 weeks #45 07/03/22 07/29/22 Rx %-0.05 % topical cream grams gabapentin 400 mg capsule 800 mg PO TID #180 caps 07/03/22 07/29/22 Rx metoprolol succinate 25 mg 25 mg PO HS #90 tabs 07/03/22 07/29/22 Rx tablet,extended release 24 hr clopidogrel 75 mg tablet 75 mg PO QAM #90 tabs 07/19/22 07/29/22 Rx pantoprazole 40 mg tablet,delayed 40 mg PO QAM #90 tabs 07/19/22 07/29/22 Rx release Past Med/Surg History Medical History Alcohol abuse Pt admits to >6 beers daily Bilateral carotid artery stenosis Per 11/2021 Carotid Doppler: 50-69% stenosis of right ICA, less than 50% stenosis of left ICA, greater than 50% stenosis of right ECA Antegrade flow in both vertebral arteries CAD in [place] artery s/p LAD stent () Chronic anemia Degenerative disc disease Diabetes mellitus, type 2 GERD (gastroesophageal reflux disease) Well controlled and stable History of anxiety History of chronic back pain Neurogenic claudication due to lumbar stenosis History of COVID-19 03/18/2022>resolved History of gastric ulcer No recent issues Hyperlipidemia Hypertension Low iron Myocardial infarction Anterolateral [place]- [place], [place], had cardiac cath; f/u [facility] Neuropathy Paroxysmal atrial flutter 01/2021- with excessive alcohol intake- felt to be contributing component No AC. No recurrence per PCP records Peripheral arterial disease Severe occlusive disease- reason for procedure Tolerates Plavix better than ASA Sleep apnea "Mild to moderate"-cpap (has not been using for months) Surgical History Fusion of spine CERVICAL, "HAVE 80% OF MOTION" History of anesthesia reaction WITH BACK SURGERY 2004 - DISORIENTED, PULLED CATHETER OUT ([facility]) History of colonoscopy History of endarterectomy Left Femoral Endarterectomy with Bovine Patch History of esophagogastroduodenoscopy (EGD) History of heart artery stent 2006 or 2007, x1 stent, [place]; f/u [facility] History of lumbar surgery X 3 - 2004, 2006, 2019 History of nasal septoplasty History of total knee replacement RT/LEFT (LEFT REVISION) Hx of cataract extraction rt/lt. Hx of transurethral resection of prostate Family History Mother Family history of diabetes mellitus Father Family history of diabetes mellitus Other No family history of adverse response to anesthesia Denies family history of Ovarian cancer Prostate cancer Myocardial infarction Breast cancer Colorectal cancer Social History Smoking Status: Current every day smoker Tobacco Type: Cigarettes Age Started Using Tobacco: 18; Cigarettes Per Day: 6 cigs >ADVISED; Second Hand Exposure: Yes ( SMOKES); Hx Alcohol Use: Yes Alcohol type: beer Alcohol type Comment: 6-8 beers Hx Substance Use: No Preferred Language: Czech Communication Ability: Effective Visual Impairment: No Limitations 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 Required: No Beliefs That Will Affect Care: None marital status: Current Living Situation: Spouse How many Children do You have: 4 Feels Safe at Home: Yes Safety Concerns: Feels Safe At This Time Childhood Exposure to Second-Hand Smoke: Yes Dental Care, Regularly: Yes Physical Activity Frequency: Does not Exercise Seatbelt Use: always Sunscreen Use: No Assistive Devices: CPAP and Glasses Review of Systems Review of Systems: Denies current fever, chills, headache, changes in vision, hearing, taste, and smell, chest pain, SOB, cough, abdominal pain, nausea, vomiting, diarrhea, hematemesis, melena, dysuria, hematuria, and recent falls. All systems have been reviewed and are otherwise negative. Physical Exam Physical Exam: Physical Exam: General: In no acute distress, stated age, well-nourished, good hygiene, non- toxic appearing HEENT: Normocephalic, atraumatic, no scleral icterus, pupils around round, symmetrical, and reactive to light, moist mucus membranes, trachea midline, no thyromegaly Chest/Pulm: No respiratory distress, symmetrical chest expansion, scattered expiratory wheezing noted Cardiac: tachycardic rate, regular rhythm, no murmurs noted Abdomen: Negative for ascites and bruising, normoactive bowel sounds, soft, non-tender to palpation throughout Musculoskeletal: Symmetrical and without signs of acute trauma, upper and lower extremities with full ROM, no atrophy, spasticity, or flaccidity Extremities: Radial, dorsalis pedis, and posterior tibial pulses are intact and symmetrical, no edema noted in the BL LE's Skin: Warm, dry, no rashes , lesions, or scars noted Neuro: Alert and oriented to person, place, month, year, and president, no focal defects, CN II-XII tested and intact, no tremors noted Psych: No acute distress, calm and cooperative during the exam Results & Data Results & Data ([facility]) Vital Signs (Past 12 Hours) Vital Signs Temp Pulse Pulse Resp BP BP Pulse Ox 07/29/22 10:40 140 H 18 93 07/29/22 10:40 93/68 L 07/29/22 10:39 130 H 15 94 07/29/22 10:39 97/73 L 07/29/22 10:35 94/69 L 07/29/22 10:35 152 H 25 H 93 07/29/22 10:32 103/65 07/29/22 10:32 150 H 27 H 103/65 96 07/29/22 10:30 130 H 17 92 07/29/22 10:30 81/61 L 07/29/22 10:24 141 H 16 07/29/22 10:24 93/63 L 07/29/22 10:20 152 H 17 92 07/29/22 10:15 141 H 13 92/71 L 93 07/29/22 10:15 92/71 L 07/29/22 10:05 152 H 17 107/70 07/29/22 10:00 152 H 16 110/69 91 07/29/22 09:50 152 H 16 107/76 93 07/29/22 09:45 152 H 16 98/75 L 93 07/29/22 09:40 151 H 17 99/76 L 94 07/29/22 09:30 150 H 15 111/77 94 07/29/22 10:24 152 H 16 98/70 L 95 07/29/22 10:15 152 H 16 92/71 L 95 07/29/22 09:10 151 H 16 93 07/29/22 09:00 150 H 17 94 07/29/22 09:19 150 H 20 110/73 98 07/29/22 08:40 152 H 17 103/71 93 07/29/22 08:31 152 H 17 103/68 93 07/29/22 08:31 152 H 103/68 07/29/22 08:15 153 H 20 100/82 94 07/29/22 07:58 152 H 20 103/75 94 07/29/22 07:53 151 H 22 114/80 94 07/29/22 07:52 153 H 20 114/66 94 07/29/22 07:41 153 H 07/29/22 07:36 152 H 21 103/74 95 07/29/22 07:27 37.4 C 153 H 17 116/56 L 96 O2 Del Method 07/29/22 10:40 Room Air 07/29/22 10:40 07/29/22 10:39 Room Air 07/29/22 10:39 07/29/22 10:35 07/29/22 10:35 Room Air 07/29/22 10:32 07/29/22 10:32 Room Air 07/29/22 10:30 Room Air 07/29/22 10:30 07/29/22 10:24 07/29/22 10:24 07/29/22 10:20 Room Air 07/29/22 10:15 Room Air 07/29/22 10:15 07/29/22 10:05 07/29/22 10:00 Room Air 07/29/22 09:50 Room Air 07/29/22 09:45 Room Air 07/29/22 09:40 07/29/22 09:30 07/29/22 10:24 Room Air 07/29/22 10:15 Room Air 07/29/22 09:10 Room Air 07/29/22 09:00 Room Air 07/29/22 09:19 Room Air 07/29/22 08:40 Room Air 07/29/22 08:31 Room Air 07/29/22 08:31 07/29/22 08:15 Room Air 07/29/22 07:58 Room Air 07/29/22 07:53 Room Air 07/29/22 07:52 Room Air 07/29/22 07:41 07/29/22 07:36 Room Air 07/29/22 07:27 Room Air Laboratory Results Abnormal lab results 07/29/22 07/29/22 Range/Units 07:35 07:35 RBC 2.93 L (4.70-6.10) M/uL Hgb 10.0 L (14.0-18.0) g/dl Hct 30.3 L (42.0-52.0) % MCV 103.4 H (80.0-100.0) fL MCH 34.1 H (25.0-34.0) pg RDW Std Deviation 59.0 H (36.4-46.3) fL RDW Coeff of Kvng 15.4 H (11.5-14.5) % Lymphocytes # (Manual) 0.98 L (1.2-3.4) K/uL Total Abs Lymphocytes 0.98 L (1.2-3.4) K/uL Metamyelocytes # (Man) 0.07 H (0-0) K/uL Myelocytes # (Manual) 0.20 H (0-0) K/uL Blast Cells # (Man) 0.07 H (0-0) K/uL Glucose 170 H (70-99(Fasting)) mg/dl Troponin I High Sens 168.9 H* (0-20) pg/ml Diagnostic Findings Chest X-Ray 07/29/22 07:50 SINGLE VIEW CHEST CLINICAL HISTORY: Generalized weakness FINDINGS: 2 AP, portable, upright chest radiographs are compared to study dated 06/26/2022 and correlated with chest CT dated 02/16/2021. The examination is degraded by portable technique and apical lordotic positioning. The heart is enlarged noting atherosclerotic calcification of the thoracic aorta. The pulmonary vasculature is noncongested. The lungs and pleural spaces are clear noting mild bibasilar scarring/atelectasis. No pneumothorax is seen. The bony thorax is grossly intact. IMPRESSION: Cardiomegaly with no acute cardiopulmonary abnormality identified. ACT 112: Negative or not required by law. Electronically signed by: Kevon Hwang M.D. 07/29/2022 8:30 AM ECG Additional Comments: Atrial flutter with 2:1 A-V conduction Septal infarct (cited on or before 26-JUN-2022) Abnormal ECG When compared with ECG of 26-JUN-2022 10:25, Atrial flutter has replaced Ectopic atrial rhythm Vent. rate has increased BY [address] now depressed in Inferior leads ST now depressed in Lateral leads Nonspecific T wave abnormality now evident in Lateral leads Code Status & VTE Plan Code Status Full code VTE Prophylaxis Plan VTE Prophylaxis will be ordered: Yes Supervising Physician Co-Signing Physician Notes Patient seen and examined, chart reviewed, case discussed with Albert Kelly PA-C and I agree with the assessment and plan as above except as otherwise noted Labs and images reviewed 58-year-old male with past medical history of CAD, PCI, atrial flutter with cardioversion, PAD, femoral endarterectomy, and alcohol use who presented after being found in atrial flutter. Patient was scheduled to have a lumbar spinal stimulator placed, this has been deferred due to a flutter. At bedside rate is improved to [id number], regular w/ flutter on monitor. No lightheadedness/diz ziness, normotensive. Patient has received Lopressor, IV magnesium, and diltiazem with diltiazem drip started. No history of reduced ejection fraction. We will continue diltiazem drip above, being loaded with digoxin at this time. On AWSS, continue. Agree with management above. PG Care Time/CCT Total # of Minutes Spent Total Time Spent with Patient: Total time spent is greater than 50% in coordination of care (as documented) at patient's floor/unit and/or counseling patient: Coding [place] [address] INT INP/OBS CARE 3/75MIN Patient Type Established Medical Decision Making High Complexity Diagnoses Atrial flutter with rapid ventricular response I48.92 Elevated troponin R77.8 Alcohol abuse F10.10 PAD (peripheral artery disease) I73.9 Neuropathy G62.9 Hyperlipidemia E78.5 Diabetes mellitus, type 2 E11.9 Macrocytic anemia D53.9 Current smoker F17.200 Neurogenic claudication G95.19
[2022-07-29] MEDS ORDERED: LORazepam 2 MG/1 ML VIAL IV PRN ×3 (11:04)
[2022-07-29] MEDS ORDERED: Ativan IV Alcohol Withdrawal--Active Protocol IV PRN (11:04)
[2022-07-29] MEDS ORDERED: GLUCAGON FOR INJ 1 MG VIAL SQ PRN (11:06)
[2022-07-29] MEDS ORDERED: GLUCOSE 40% GEL 15 GM TUBE PO PRN (11:06)
[2022-07-29] MEDS ORDERED: CARBOHYDRATES FOR HYPOGLYCEMIA PO PRN (11:06)
[2022-07-29] MEDS ORDERED: DEXTROSE 50% 50 ML SYRINGE IV PRN (11:06)
[2022-07-29] MEDS ORDERED: GLUCOSE 10 TAB/TUBE PO PRN (11:06)
--- NOTE | 2022-07-29 12:14 | Cardiology Consultation ---
Date of Consultation July 29, 2022 Assessment & Plan (1) Atrial flutter with rapid ventricular response: (2) CAD in [place] artery: (3) Elevated troponin: (4) Hyperlipidemia: (5) Hypertension: Plan 1. Atrial flutter: He has had recurrence of atrial flutter but the time course is not clear. He believes it is recent due to the fact that his heart rate was unchanged by his recollection several days ago, but the vital sign cuffs, especially the wrist cuffs, may not give an accurate measure and I am concerned that heart rate in the mid 90s seems a bit fast. We know that he was in sinus rhythm a month ago but cannot be confident in between. I would recommend an tempt at rate control, if possible I would try to wait a month on anticoagulation before considering cardioversion. If we cannot do that we can consider GLADYS guided cardioversion. So far intravenous diltiazem (currently 10 mics per minute) and several doses of intravenous metoprolol as well as 1 dose of intravenous digoxin have slowed but not rate controlled his rhythm. I am giving an additional dose of digoxin and will check in several hours to see whether he should get another and I will check a digoxin level in the morning. I am going to continue intravenous diltiazem and make sure he is on an oral beta-felicity starting this evening. Atrial flutter ablation is probably a good alternative in the future. 2. Coronary disease: He has known coronary disease, he does not have symptoms of chest discomfort therefore I do not think this is an acute coronary syndrome. 3. Elevated troponin: This is probably due to demand ischemia due to the fast heart rate. 4. Hyperlipidemia: I understand he is statin intolerant, he does not appear to be on anything for cholesterol. His total cholesterol was 177 in March 2022 with an LDL of 83 and HDL of 54 which is quite good. 5. Hypertension: His blood pressure is quite labile here and may be somewhat inaccurate. He does not have symptoms of hypotension despite low readings. History of Present Illness Reason for Consultation: Atrial flutter with rapid ventricular response Attending Physician: Stu Hopkins MD History of Present Illness This is a 62-year-old male who follows as an outpatient with Dr. Dhaliwal in our office. He has a history of hypertension, hyperlipidemia, peripheral arterial disease as well as carotid arterial disease. He also has known coronary artery disease including an LAD stent in the past. He also has a history of atrial flutter, this was identified in January 2021 and he had a GLADYS guided cardioversion at the time. To my knowledge he did not have specific treatment for it but has had no known recurrence until recently (although since he is virtually asymptomatic currently he may have recurrences that we are unaware of). He is not on an anticoagulant, I believe he was on it for short time following cardioversion and lthough it was recommended in January 2021 but due to the risk of GI bleeding it was discontinued by April 2021. As of July 03, 2022 his heart rate was not elevated and I suspect he was not in atrial flutter, the last electrocardiogram was June 26, 2022 and that showed sinus rhythm. He presented to the emergency room on July 29, 2022 from the [facility]. He was there to have a spinal stimulator placed but was found to be tachycardic and electrocardiography showed typical atrial flutter with 2-1 AV conduction. He was referred to the emergency room. He was evidently asymptomatic. In the emergency room he received intravenous metoprolol, intravenous diltiazem bolus and infusion as well as digoxin 0.25 mg IV (following lack of success with the other agents). His heart rate slowed somewhat but has remained quite elevated. At the time of my evaluation on telemetry he reports feeling quite well and notes that he could not feel the arrhythmia at this time although he did the last time. He notes that he checks his vital signs every several days with a wrist cuff and reported that has not been elevated, however he recalls that 2 days before admission he checked it and his heart rate was in the 90s. That seems a little bit high but he tells me it usually is that high. He has no lightheadedness, dizziness, palpitations or chest discomfort. He has noted no change in his exercise ability. Allergies Allergy/AdvReac Type Severity Reaction Status Date / Time latex Allergy Mild Rash Verified 07/23/22 09:18 Penicillins Allergy Mild Rash Verified 07/23/22 09:18 gemfibrozil AdvReac Intermediate BODY ACHES Verified 07/23/22 09:18 Ipdfhrk-ZKZ-ThW Reductase AdvReac Intermediate body aches Verified 07/23/22 09:18 Inhibitor [Kzfudyg-Mra-Zmj Reductase Inhibitor] adhesive AdvReac Mild Rash Verified 07/23/22 09:18 NSAIDS (Non-Steroidal AdvReac Unknown TOLD NOT Verified 07/23/22 09:18 Anti-Inflamma TO TAKE - HX STOMACH ULCER Home Medications Medication Instructions Recorded Confirmed Type acetaminophen 650 mg 1,300 mg PO UD PRN ARTHRITIS PAIN 12/06/20 07/29/22 History tablet,extended release fenofibrate 160 mg tablet 160 mg PO QAM #90 tabs 07/17/21 07/29/22 Rx duloxetine 60 mg capsule,delayed 60 mg PO QAM #90 caps 01/21/22 07/29/22 Rx release alirocumab 150 mg/mL subcutaneous 150 mg subcut Q14D #2 mL 03/21/22 07/29/22 Rx pen injector (Praluent Pen) folic acid 400 mcg tablet 0.4 mg PO QAM 04/23/22 07/29/22 History mecobalamin (vitamin B12) 1,000 1,000 mcg PO QAM 04/23/22 07/29/22 History mcg chewable tablet metformin 500 mg tablet,extended 2,000 mg PO QAM #360 tabs 04/24/22 07/29/22 Rx release 24 hr tramadol 50 mg tablet 100 mg PO BID #120 tabs 06/05/22 07/29/22 Rx glimepiride 1 mg tablet 1 mg PO QAM #30 tabs 06/20/22 07/29/22 Rx lisinopril 40 mg tablet 40 mg PO QAM #30 tabs 06/20/22 07/29/22 Rx metoprolol succinate 50 mg 50 mg PO QAM #30 tabs 06/20/22 07/29/22 Rx tablet,extended release 24 hr clotrimazole-betamethasone 1 1 applic topical BID 2 weeks #45 07/03/22 07/29/22 Rx %-0.05 % topical cream grams gabapentin 400 mg capsule 800 mg PO TID #180 caps 07/03/22 07/29/22 Rx metoprolol succinate 25 mg 25 mg PO HS #90 tabs 07/03/22 07/29/22 Rx tablet,extended release 24 hr clopidogrel 75 mg tablet 75 mg PO QAM #90 tabs 07/19/22 07/29/22 Rx pantoprazole 40 mg tablet,delayed 40 mg PO QAM #90 tabs 07/19/22 07/29/22 Rx release Patient History Medical History Alcohol abuse Pt admits to >6 beers daily Bilateral carotid artery stenosis Per 11/2021 Carotid Doppler: 50-69% stenosis of right ICA, less than 50% stenosis of left ICA, greater than 50% stenosis of right ECA Antegrade flow in both vertebral arteries CAD in [place] artery s/p LAD stent () Chronic anemia Degenerative disc disease Diabetes mellitus, type 2 GERD (gastroesophageal reflux disease) Well controlled and stable History of anxiety History of chronic back pain Neurogenic claudication due to lumbar stenosis History of COVID-19 03/18/2022>resolved History of gastric ulcer No recent issues Hyperlipidemia Hypertension Low iron Myocardial infarction Anterolateral [place]- [place], had cardiac cath; f/u [facility] Neuropathy Paroxysmal atrial flutter 01/2021- with excessive alcohol intake- felt to be contributing component No AC. No recurrence per PCP records Peripheral arterial disease Severe occlusive disease- reason for procedure Tolerates Plavix better than ASA Sleep apnea "Mild to moderate"-cpap (has not been using for months) Surgical History Fusion of spine CERVICAL, "HAVE 80% OF MOTION" History of anesthesia reaction WITH BACK SURGERY 2004 - DISORIENTED, PULLED CATHETER OUT ([facility]) History of colonoscopy History of endarterectomy Left Femoral Endarterectomy with Bovine Patch History of esophagogastroduodenoscopy (EGD) History of heart artery stent 2006 or 2007, x1 stent, [place]; f/u [facility] History of lumbar surgery X 3 - 2004, 2006, 2019 History of nasal septoplasty History of total knee replacement RT/LEFT (LEFT REVISION) Hx of cataract extraction rt/lt. Hx of transurethral resection of prostate Family History Mother Family history of diabetes mellitus Father Family history of diabetes mellitus Other No family history of adverse response to anesthesia Denies family history of Ovarian cancer Prostate cancer Myocardial infarction Breast cancer Colorectal cancer Social History Smoking Status: Current every day smoker Tobacco Type: Cigarettes Age Started Using Tobacco: 18; Cigarettes Per Day: 6 cigs >ADVISED; Second Hand Exposure: Yes ( SMOKES); Hx Alcohol Use: Yes Alcohol type: beer Alcohol type Comment: 6-8 beers Hx Substance Use: No Preferred Language: Norwegian Communication Ability: Effective Visual Impairment: No Limitations Gre Tutor Required: No Beliefs That Will Affect Care: None marital status: Current Living Situation: Spouse How many Children do You have: 4 Feels Safe at Home: Yes Safety Concerns: Feels Safe At This Time Childhood Exposure to Second-Hand Smoke: Yes Dental Care, Regularly: Yes Physical Activity Frequency: Does not Exercise Seatbelt Use: always Sunscreen Use: No Assistive Devices: CPAP and Glasses Review of Systems Review of Systems: All systems reviewed & are unremarkable except as noted in HPI & below Physical Exam Physical Exam: Constitutional: Alert, cooperative and in no distress. HEENT: Unremarkable Neck: No jugular venous distention, carotid pulses are irregular but otherwise normal and equal bilaterally without bruits. Pulmonary: Clear to auscultation bilaterally. Cardiac: Irregular rhythm with no murmur, gallop or rub. Abdomen: Soft, nontender with normal bowel sounds. Extremities: No edema. Distal pulses intact. Neurologic: No focal findings. Gait is steady. Skin: No rash, ecchymoses or petechiae. Results & Data ([facility]) Vital Signs (Past 12 Hours) Vital Signs Temp Pulse Pulse Resp BP BP Pulse Ox 07/29/22 11:35 131 H 07/29/22 11:14 141 H 07/29/22 10:40 140 H 18 93 07/29/22 10:40 93/68 L 07/29/22 10:39 130 H 15 94 07/29/22 10:39 97/73 L 07/29/22 10:35 94/69 L 07/29/22 10:35 152 H 25 H 93 07/29/22 10:32 103/65 07/29/22 10:32 150 H 27 H 103/65 96 07/29/22 10:30 130 H 17 92 07/29/22 10:30 81/61 L 07/29/22 10:24 141 H 16 07/29/22 10:24 93/63 L 07/29/22 10:20 152 H 17 92 07/29/22 10:15 141 H 13 92/71 L 93 07/29/22 10:15 92/71 L 07/29/22 10:05 152 H 17 107/70 07/29/22 10:00 152 H 16 110/69 91 07/29/22 09:50 152 H 16 107/76 93 07/29/22 09:45 152 H 16 98/75 L 93 07/29/22 09:40 151 H 17 99/76 L 94 07/29/22 09:30 150 H 15 111/77 94 07/29/22 10:24 152 H 16 98/70 L 95 07/29/22 10:15 152 H 16 92/71 L 95 07/29/22 09:10 151 H 16 93 07/29/22 09:00 150 H 17 94 07/29/22 09:19 150 H 20 110/73 98 07/29/22 08:40 152 H 17 103/71 93 07/29/22 08:31 152 H 17 103/68 93 07/29/22 08:31 152 H 103/68 07/29/22 08:15 153 H 20 100/82 94 07/29/22 07:58 152 H 20 103/75 94 07/29/22 07:53 151 H 22 114/80 94 07/29/22 07:52 153 H 20 114/66 94 07/29/22 07:41 153 H 07/29/22 07:36 152 H 21 103/74 95 07/29/22 07:27 37.4 C 153 H 17 116/56 L 96 O2 Del Method 07/29/22 11:35 07/29/22 11:14 07/29/22 10:40 Room Air 07/29/22 10:40 07/29/22 10:39 Room Air 07/29/22 10:39 07/29/22 10:35 07/29/22 10:35 Room Air 07/29/22 10:32 07/29/22 10:32 Room Air 07/29/22 10:30 Room Air 07/29/22 10:30 07/29/22 10:24 07/29/22 10:24 07/29/22 10:20 Room Air 07/29/22 10:15 Room Air 07/29/22 10:15 07/29/22 10:05 07/29/22 10:00 Room Air 07/29/22 09:50 Room Air 07/29/22 09:45 Room Air 07/29/22 09:40 07/29/22 09:30 07/29/22 10:24 Room Air 07/29/22 10:15 Room Air 07/29/22 09:10 Room Air 07/29/22 09:00 Room Air 07/29/22 09:19 Room Air 07/29/22 08:40 Room Air 07/29/22 08:31 Room Air 07/29/22 08:31 07/29/22 08:15 Room Air 07/29/22 07:58 Room Air 07/29/22 07:53 Room Air 07/29/22 07:52 Room Air 07/29/22 07:41 07/29/22 07:36 Room Air 07/29/22 07:27 Room Air Laboratory Results Cardiac Enzymes 07/29/22 07/29/22 Range/Units 07:35 11:39 AST 14 (13-39) U/L Troponin I High Sens 168.9 H* 181.0 H* (0-20) pg/ml CBC 07/29/22 Range/Units 07:35 WBC 6.52 (4.8-10.8) K/ul RBC 2.93 L (4.70-6.10) M/uL Hgb 10.0 L (14.0-18.0) g/dl Hct 30.3 L (42.0-52.0) % Plt Count 322 (130-400) K/uL Comprehensive Metabolic Panel 07/29/22 Range/Units 07:35 Sodium 136 (136-145) mmol/L Potassium 4.6 (3.5-5.1) mmol/L Chloride 101 (98-107) mmol/L Carbon Dioxide 29 (21-32) mmol/L BUN 18 (6-23) mg/dl Creatinine 0.91 (0.6-1.4) mg/dl Glucose 170 H (70-99(Fasting)) mg/dl Calcium 9.7 (8.5-10.1) mg/dl AST 14 (13-39) U/L ALT 13 (7-52) U/L Alkaline Phosphatase 57 (34-104) U/L Total Protein 7.0 (6.0-8.3) gm/dl Albumin 4.0 (3.4-5.0) gm/dl Intake and Output 07/29/22 07/29/22 07/29/22 06:59 14:59 22:59 Intake Total 1111.000 / 1193.000 82 / 1193.000 Balance 1111.000 / 1193.000 82 / 1193.000 Intake: IV 1111.000 / 1193.000 82 / 1193.000 Magnesium Sulfate / D5w 1 gm In 100 / 100 100 ml @ 100 mls/hr IV NOW STA Rx#:[id number] Sodium Chloride 0.9% 1000ML 1, 1000 / 1000 000 ml @ 999 mls/hr IV .Q1H1M ONE Rx#:[id number] dilTIAZem HCL 125 mg In 11.000 / 93.000 82 / 93.000 Dextrose 5% 100 ml @ 5 MG/HR 5 mls/hr IV .Q24H LULU Rx#: [id number] Other: Weight 93.1 kg Weight Measurement Method Built in [facility] Patient Weight 07/30/22 06:59 Weight 93.1 kg Diagnostic Findings Telemetry: Predominantly atrial flutter with 2-1 AV conduction, gradual decrease with addition of rate controlling medications. PG Care Time/CCT Total # of Minutes Spent Total Time Spent with Patient: Total time spent is greater than 50% in coordination of care (as documented) at patient's floor/unit and/or counseling patient: Coding Level of Care Code 10253 INT INP/OBS CARE 3/75MIN Diagnoses Atrial flutter with rapid ventricular response I48.92 CAD in [place] artery I25.10 Elevated troponin R77.8 Hyperlipidemia E78.5 Hyperlipidemia type: unspecified Hypertension I10 Hypertension type: primary hypertension (4) Hyperlipidemia Hyperlipidemia type: unspecified Qualified Code(s): E78.5 - Hyperlipidemia, unspecified (5) Hypertension Hypertension type: primary hypertension Qualified Code(s): I10 - Essential (primary) hypertension
[2022-07-29] MEDS: INSULIN ASPART PER UNIT SC SCH ×3 (13:35→20:51)
[2022-07-29] MEDS: FOLIC ACID 1 MG in SYRINGE 9.8 ML IV SCH (14:43)
[2022-07-29] MEDS: THIAMINE HCL 100 MG in SYRINGE 9 ML IV SCH (14:43)
[2022-07-29] MEDS: GABAPENTIN 400 MG CAP PO SCH ×2 (14:43→20:07)
[2022-07-29] MEDS ORDERED: Nursing to Pharmacy Communication SCH (17:30)
[2022-07-29] MEDS: METOPROLOL TARTRATE 50 MG TAB PO SCH (20:07)
[2022-07-29] MEDS: APIXABAN 5 MG TABLET PO SCH (20:07)
[2022-07-29] MEDS: traMADol HCL 50 MG TABLET PO SCH (20:08)
[2022-07-29] MEDS: LANTUS PER UNIT CHARGE SQ SCH (20:55)
[2022-07-30] MEDS: dilTIAZem HCL 125 MG in DEXTROSE 5% 100 ML IV SCH (05:54)
[2022-07-30 06:45] LABS: Hematocrit (blood only) 29.4 % (42.0-52.0); Hemoglobin 9.4 g/dl (14.0-18.0); Mean Corpuscular Hemoglobin 33.7 pg (25.0-34.0); Mean Corpuscular Volume 105.4 fL (80.0-100.0); Mean Platelet Volume 11.2 fL (9.4-12.4); Platelet Count 304 K/uL (130-400); RDW Coefficient of Variation 15.5 % (11.5-14.5); RDW Standard Deviation 59.8 fL (36.4-46.3); Red Blood Count 2.79 M/uL (4.70-6.10)
[2022-07-30 07:07] LABS: Albumin Globulin Ratio 1.2 (0.9-2); Albumin Level 3.6 gm/dl (3.4-5.0); BUN Creatinine Ratio 15.1 (10-20); Bilirubin,Total 0.3 mg/dl (0.2-1.0); Calcium 9.2 mg/dl (8.5-10.1); Creatinine Clr Calc Pharmacy 92.5 ml/min; Est GFR (African American) 100.2 ml/min; Est GFR (Non-African American) 86.5 ml/min; Globulin 2.9 gm/dl (2.5-4.0); Potassium 4.3 mmol/L (3.5-5.1); Total Protein 6.5 gm/dl (6.0-8.3)
[2022-07-30 07:14] LABS: Troponin I High Sensitivity 198.1 pg/ml (0-20)
[2022-07-30 07:21] LABS: INR 1.1 (0.9-1.1); Prothrombin Time 11.3 Seconds (9.0-12.0)
--- NOTE | 2022-07-30 08:41 | Hospitalist Progress Note ---
Date of Service July 30, 2022 Assessment & Plan (1) Atrial flutter with rapid ventricular response: Plan: acute on chronic unstable, cardiology has adjusted meds -Diltiazem drip running at 15 mg/hr, coordinating with Nursing Staff to give the initial 250 mcg of Dig JODI - continue po metoprolol , hold lisinopril to allow some bp leniency -on apixiban for ac - (2) Elevated troponin: Plan: acute moderate risk -Initial high sensitivity trop elevated at 168 peaked at 261 -demand ischemia due to rate (3) Alcohol abuse: Plan: acute on chronic potential serious risk Patient noted to drink approximately 6 beers daily, last drink was reported as yesterday afternoon -Recent AWSS score was 3, will start AWSS protocol for possible withdrawal -Will give 100 mg IV thiamine and 1mg IV folic acid, continue in the am -Continue to monitor on tele (4) PAD (peripheral artery disease): Plan: -Continue to hold plavix for now as he was scheduled for lumbar spinal stim placement with Dr. Khalil (5) Neuropathy: Plan: -Continue Gabapentin (6) Hyperlipidemia: Plan: -Intolerant to statins -Is on Praluent and fenofibrate, hold for now (7) Diabetes mellitus, type 2: Plan: -Hold metformin and glimepiride -Last A1c in 03/2022 was 6.6 -Monitor BSG q6h while NPO, goal is 110-140 -Will start with 5 units Lantus BID, Correction factor of 45 with carb ratio of 15 -Start DM II diet when cleared to eat (8) Macrocytic anemia: Plan: -Stable at 103, has been improving -Continue home B12 -Restart PO folic acid when able to tolerate PO intake (9) Current smoker: Plan: -Approximately 1/2 PPD -Denies the need for nicotine patch at this time -Continue to stress cessation Plan The patient was discussed with Dr. Hopkins at the time of the admission Admission and Anticipated Discharge Date Admission Date: July 29, 2022 Results & Data Results & Data ([facility]) Vital Signs (Past 12 Hours) Vital Signs Temp Pulse Resp BP Pulse Ox O2 Del Method 07/30/22 07:50 97.9 F 107 H 18 124/72 96 Room Air 07/30/22 05:55 78 138/84 07/30/22 03:52 77 138/81 07/30/22 03:14 98.2 F 79 15 100/65 95 Room Air 07/29/22 23:26 78 103/67 07/29/22 22:14 98.4 F 101 H 16 113/78 95 Room Air 07/29/22 20:48 88 110/69 PG Care Time/CCT Total # of Minutes Spent Total Time Spent with Patient: Total time spent is greater than 50% in coordination of care (as documented) at patient's floor/unit and/or counseling patient: Coding Diagnoses Atrial flutter with rapid ventricular response I48.92 Elevated troponin R77.8 Alcohol abuse F10.10 PAD (peripheral artery disease) I73.9 Neuropathy G62.9 Hyperlipidemia E78.5 Hyperlipidemia type: unspecified Diabetes mellitus, type 2 E11.9 Macrocytic anemia D53.9 Current smoker F17.200 (6) Hyperlipidemia Hyperlipidemia type: unspecified Qualified Code(s): E78.5 - Hyperlipidemia, unspecified
[2022-07-30] MEDS ORDERED: PANTOprazole 40 MG TAB PO SCH (09:00)
[2022-07-30] MEDS ORDERED: DULoxetine HCL 60 MG CAP PO SCH (09:00)
[2022-07-30] MEDS ORDERED: dilTIAZem HCL 240 MG CAPCR PO SCH (09:00)
[2022-07-30] MEDS ORDERED: CYANOCOBALAMIN (B-12) 500 MCG TABLET PO SCH (09:00)
[2022-07-30] MEDS: INSULIN ASPART PER UNIT SC SCH ×2 (09:49→13:05)
[2022-07-30] MEDS: GABAPENTIN 400 MG CAP PO SCH ×2 (09:54→13:05)
[2022-07-30] MEDS: THIAMINE HCL 100 MG in SYRINGE 9 ML IV SCH (09:55)
[2022-07-30] MEDS: METOPROLOL TARTRATE 50 MG TAB PO SCH (09:55)
[2022-07-30] MEDS: APIXABAN 5 MG TABLET PO SCH (09:55)
[2022-07-30] MEDS: FOLIC ACID 1 MG in SYRINGE 9.8 ML IV SCH (09:55)
[2022-07-30] MEDS: traMADol HCL 50 MG TABLET PO SCH (09:58)
[2022-07-30] MEDS: LANTUS PER UNIT CHARGE SQ SCH (10:21)
--- NOTE | 2022-07-30 15:44 | Cardiology Progress Note ---
Date of Service July 30, 2022 Assessment & Plan (1) Atrial flutter with rapid ventricular response: (2) CAD in [place] artery: (3) Elevated troponin: (4) Hyperlipidemia: (5) Hypertension: Plan 1. Atrial flutter: He has had recurrence of atrial flutter but the time course is not clear. He believes it is recent due to the fact that his heart rate was unchanged by his recollection several days ago, but the vital sign cuffs, especially the wrist cuffs, may not give an accurate measure and I am concerned that heart rate in the mid 90s seems a bit fast. We know that he was in sinus rhythm a month ago but cannot be confident in between. I would recommend an tempt at rate control, if possible I would try to wait a month on anticoagulation before considering cardioversion. If we cannot do that we can consider [facility]ADYS guided cardioversion. So far intravenous diltiazem (currently 10 mics per minute) and several doses of intravenous metoprolol as well as 1 dose of intravenous digoxin have slowed but not rate controlled his rhythm. I am giving an additional dose of digoxin and will check in several hours to see whether he should get another and I will check a digoxin level in the morning. I am going to continue intravenous diltiazem and make sure he is on an oral beta -felicity starting this evening. Atrial flutter ablation is probably a good alternative in the future. 2. Coronary disease: He has known coronary disease, he does not have symptoms of chest discomfort therefore I do not think this is an acute coronary syndrome. 3. Elevated troponin: This is probably due to demand ischemia due to the fast heart rate. 4. Hyperlipidemia: I understand he is statin intolerant, he does not appear to be on anything for cholesterol. His total cholesterol was 177 in March 2022 with an LDL of 83 and HDL of 54 which is quite good. 5. Hypertension: His blood pressure is quite labile here and may be somewhat inaccurate. He does not have symptoms of hypotension despite low readings. Admission and Anticipated Discharge Date Admission Date: July 29, 2022 Subjective He is feeling well today, he remains unaware of his heart rhythm and has no complaints. He is tolerating his medications well. Physical Exam Physical Exam: Constitutional: Alert, cooperative and in no distress. HEENT: Unremarkable Neck: No jugular venous distention, carotid pulses are irregular but otherwise normal and equal bilaterally without bruits. Pulmonary: Clear to auscultation bilaterally. Cardiac: Irregular rhythm with no murmur, gallop or rub. Abdomen: Soft, nontender with normal bowel sounds. Extremities: No edema. Distal pulses intact. Neurologic: No focal findings. Gait is steady. Skin: No rash, ecchymoses or petechiae. Results & Data ([facility]) Vital Signs (Past 12 Hours) Vital Signs Temp Pulse Pulse Resp BP Pulse Ox O2 Del Method 07/30/22 11:26 37.2 C 100 H 18 117/70 94 Room Air 07/30/22 10:44 82 07/30/22 07:50 36.6 C 107 H 18 124/72 96 Room Air 07/30/22 05:55 78 138/84 07/30/22 03:52 77 138/81 Laboratory Results Cardiac Enzymes 07/29/22 07/29/22 07/30/22 Range/Units 17:11 22:56 06:10 AST 14 (13-39) U/L Troponin I High Sens 212.1 H* 261.4 H* D 198.1 H* D (0-20) pg/ml 07/30/22 Range/Units 11:27 AST (13-39) U/L Troponin I High Sens 147.7 H* D (0-20) pg/ml Coagulation 07/30/22 Range/Units 06:10 PT 11.3 (9.0-12.0) Seconds CBC 07/30/22 Range/Units 06:10 WBC 5.20 (4.8-10.8) K/ul RBC 2.79 L (4.70-6.10) M/uL Hgb 9.4 L (14.0-18.0) g/dl Hct 29.4 L (42.0-52.0) % Plt Count 304 (130-400) K/uL Comprehensive Metabolic Panel 07/30/22 Range/Units 06:10 Sodium 137 (136-145) mmol/L Potassium 4.3 (3.5-5.1) mmol/L Chloride 104 (98-107) mmol/L Carbon Dioxide 29 (21-32) mmol/L BUN 14 (6-23) mg/dl Creatinine 0.93 (0.6-1.4) mg/dl Glucose 148 H (70-99(Fasting)) mg/dl Calcium 9.2 (8.5-10.1) mg/dl AST 14 (13-39) U/L ALT 14 (7-52) U/L Alkaline Phosphatase 55 (34-104) U/L Total Protein 6.5 (6.0-8.3) gm/dl Albumin 3.6 (3.4-5.0) gm/dl Intake and Output 07/30/22 07/30/22 07/30/22 06:59 14:59 22:59 Intake Total 120.25 / 1590.000 45 / 45 Output Total 1100 / 1600 800 / 800 Balance -979.75 / -10.000 -755 / -755 Intake: IV 120.25 / 1350.000 45 / 45 dilTIAZem HCL 125 mg In 120.25 / 250.000 45 / 45 Dextrose 5% 100 ml @ 10 MG/HR 10 mls/hr IV .[id number] [facility]ULU Rx#: [id number] Output: Urine 1100 / 1600 800 / 800 Other: # Unmeasured Voids 1 Weight 94.2 kg Weight Measurement Method Built in [facility] Diagnostic Findings Telemetry: Atrial flutter, heart rate remains quite well controlled from around 7 PM until now. PG Care Time/CCT Total # of Minutes Spent Total Time Spent with Patient: Total time spent is greater than 50% in coordination of care (as documented) at patient's floor/unit and/or counseling patient: Coding Diagnoses Atrial flutter with rapid ventricular response I48.92 CAD in [place] artery I25.10 Elevated troponin R77.8 Hyperlipidemia E78.5 Hyperlipidemia type: unspecified Hypertension I10 Hypertension type: primary hypertension (4) Hyperlipidemia Hyperlipidemia type: unspecified Qualified Code(s): E78.5 - Hyperlipidemia, unspecified (5) Hypertension Hypertension type: primary hypertension Qualified Code(s): I10 - Essential (primary) hypertension
--- NOTE | 2022-07-30 16:37 | Discharge Summary ---
Date of Service July 30, 2022 Admission HPI Per Admitting Provider Jackson is a 60-year-old gentleman with a history significant for CAD s/p mid LAD PCI x2, atrial flutter s/p cardioversion, peripheral arterial disease s/p L common femoral endarterectomy with bovine patch and lithotripsy of SFA and Popliteal arteries (on Plavix), carotid artery stenosis, hypertension, dyslipidemia (intolerant to statin therapy), type 2 diabetes, gastric ulcer, lumbar stenosis with neurogenic claudication, sleep apnea (declined CPAP), and current alcohol abuse who presented to the [facility] ED from [facility] 07[facility]22 after being found in atrial flutter. Per chart review, the patient was scheduled to have a lumbar spinal stimulator placed with Dr. Khalil today. Upon arrival to [facility] he was found to be in atrial flutter and was sent to the ED. In the ED the patient was found to be afebrile, hemodynamically stable, stable on RA, but tachycardic with HR in the 150s. Labs were significant for a WBC WNL, stable Hgb at 10.0, stable platelets at 322, MCV of 103, stable Cr of 0.91, stable electrolytes, glucose of 179, LFTs WNL, initial high sensitivity trop of 168, TSH WNL, and covid 19 screen negative. Chest xray was read as Cardiomegaly with no acute cardiopulmonary abnormality identified.. Initial ECG shows atrial flutter with a 2:1 AV conduction, ST depressions in the inferior and lateral leads. The patient was initially given 5 mg IV Lopressor, 1L NSS, and 1gm IV magnesium without resolution of his tachycardia. He was then given 10 mg IV diltiazem and required a diltiazem drip at 15 gm/hr. The patient was given an additional 5 mg IV Lopressor but his HR remained in the 130's-140's. The ED staff spoke with Cardiology who recommended 250 mcg of IV Digoxin and to continue the Diltiazem drip until his rate is controlled. At the time of the exam the patient was resting in bed in no acute distress with his and Granddaughter sitting bedside. He states that he has been in his normal state of health when he arrived to [id number] this am. He confirmed that he took his am dose of 50 mg PO metoprolol succinate. He has been asymptomatic throughout the day including at the time of my exam with his HR in the 140's-150's. He denies recent fevers, chills, chest pain, SOB, heart palpitations, nausea, vomiting, diarrhea, dysuria, hematuria, LE swelling and recent trauma. His las dose of Plavix was on 07/24/22. When asked about his drinking the patient confirms that he drinks approximately 6 beers daily, his last drink was yesterday afternoon. He denies a previous history of serious alcohol withdrawal symptoms including withdrawal seizures. He is still smoking approximately 1/2 PPD and is not interested in nicotine patches while here. Please refer to Dr. Hopkins's attestation for any changes to the treatment plan Principal Diagnosis Atrial flutternow rate controlled Tobacco and alcohol abuse Discharge Exam Patient is awake alert. Card exam is regular rate is 100 or below. Lungs are clear Discharge Data Allergies Allergy/AdvReac Type Severity Reaction Status Date / Time latex Allergy Mild Rash Verified 07/23/22 09:18 Penicillins Allergy Mild Rash Verified 07/23/22 09:18 gemfibrozil AdvReac Intermediate BODY ACHES Verified 07/23/22 09:18 Niglpuy-FWE-UzA Reductase AdvReac Intermediate body aches Verified 07/23/22 09:18 Inhibitor [Xaszxpa-Zmi-Mdj Reductase Inhibitor] adhesive AdvReac Mild Rash Verified 07/23/22 09:18 NSAIDS (Non-Steroidal AdvReac Unknown TOLD NOT Verified 07/23/22 09:18 Anti-Inflamma TO TAKE - HX STOMACH ULCER Consultations 07/29/22 10:55 ED Decision to Admit Stat 07/29/22 11:06 Consult Cardiology Routine Atrial flutter: He has had recurrence of atrial flutter but the time course is not clear. He believes it is recent due to the fact that his heart rate was unchanged by his recollection several days ago, but the vital sign cuffs, especially the wrist cuffs, may not give an accurate measure and I am concerned that heart rate in the mid 90s seems a bit fast. We know that he was in sinus rhythm a month ago but cannot be confident in between. I would recommend an tempt at rate control, if possible I would try to wait a month on anticoagulation before considering cardioversion. If we cannot do that we can consider GLADYS guided cardioversion. So far intravenous diltiazem (currently 10 mics per minute) and several doses of intravenous metoprolol as well as 1 dose of intravenous digoxin have slowed his rhythm. atrial flutter ablation is probably a good alternative in the future. Hospital Course (1) Atrial flutter with rapid ventricular response: acute on chronic unstable, cardiology has adjusted meds Patient will be on metoprolol 50 twice daily Cardizem extended release to 40 and digoxin 0.125 have rate controlled as an outpatient for approximately 1 month and then consideration for further treatments by electrophysiology. -on apixiban for ac 30-day coupon given at discharge - (2) Elevated troponin: acute moderate risk -Initial high sensitivity trop elevated at 168 peaked at 261 -demand ischemia due to rate (3) Alcohol abuse: acute on chronic potential serious risk Patient noted to drink approximately 6 beers daily, last drink was reported as yesterday afternoon Patient recommended alcohol cessation to improve his ability to stay in sinus rhythm if he converts (4) PAD (peripheral artery disease): - patient returns to Plavix use postponing any lumbar back surgery based upon his recent cardiac instability (5) Neuropathy: -Continue Gabapentin (6) Hyperlipidemia: -Intolerant to statins -Is on Praluent and fenofibrate, (7) Diabetes mellitus, type 2: Resume metformin and glimepiride -Last A1c in 03/2022 was 6.6 - (8) Macrocytic anemia: -Stable at 103, has been improving -Continue home B12 Multiple vitamin with iron and folic acid at [facility] (9) Current smoker: -Approximately 1/2 PPD -Denies the need for nicotine patch at this time -Continue to stress cessation Total Time Total Time Spent Total Time Spent (In Minutes): It required greater than 30 minutes to prepare this patient for discharge Discharge Plan Discharge Items Patient Disposition: Home - Self-Care Reason For Visit: A FLUTTER Discharge Diagnosis: atrial flutter Condition on Discharge: Fair Activity: Per Instructions section Non-emergency contact: Primary Care Provider Call non-emergency contact if: your symptoms worsen Follow-up/Referrals: Nitish Lam MD [Primary Care Provider] - Diet: Heart Healthy Addtl Attending Provider Instructions: You admitted to the hospital with a rapid heart rhythm called atrial flutter. Atrial flutter can be difficult if your heart rate goes fast but medications have been prescribed to control your heart rate. Further discussion with cardiology about other ways to combat this heart rhythm will be undertaken as an outpatient setting once your heart stabilizes on these medications and you are on a blood thinner for 30 days. Please return to the hospital if you feel lightheaded you feel pressure in your chest or you can sense a rapid heartbeat or feel extremely fatigued. Medication Instructions: Apixaban Your condition is typically treated with an anticoagulant. Anticoagulants will thin your blood to help prevent new clots. * You should take her medication exactly as directed. * Never skip a dose. * Never take a double dose. If you miss a dose, take it as soon as you remember. Call your Primary Care doctor if you experience any of the following: * Swelling or Pain in your leg * Sudden, continuous pain deep in a muscle * Pain that worsens when you are active or when you stand still for a long time * Chest Pain * Sudden Shortness of Breath * Rapid or pounding heart beat * Fainting * Dizziness * Cough with blood or bloody sputum * Sweating more than normal * Bruises * Heavy or uncontrolled bleeding * Blood in your urine, stool or vomit * Black or tarry stools Caring for Your Self at Home: * Avoid sitting, standing or lying down for long periods without moving your legs and feet * When traveling by car, stop to get out and move around at least once every 3 hours * On long airplane, train or bus rides, get up and move around when possible * If you can't get up, wiggle your toes and tighten your calves to keep your blood moving Follow Up: It is important for you to keep your follow up appointments with your medical provider. We recommended that you make every attempt to stop drinking alcohol and smoking Pending Studies at Discharge: No Stand-Alone Forms: My [facility], Smoking Cessation Medications and DC Order Prescriptions: New diltiazem HCl 240 mg Capsule,Extended Release 24hr 240 mg PO QAM Qty: 30 0RF metoprolol tartrate 50 mg Tablet 50 mg PO BID Qty: 60 0RF Eliquis 5 mg Tablet 5 mg PO BID Qty: 60 0RF digoxin 125 mcg (0.125 mg) tablet 125 mcg PO DAILY Qty: 30 5RF Continued fenofibrate 160 mg tablet 160 mg PO QAM Qty: 90 3RF duloxetine 60 mg capsule,delayed release(DR/EC) 60 mg PO QAM Qty: 90 3RF Praluent Pen 150 mg/mL pen injector 150 mg subcut Q14D Qty: 2 11RF Rx Instructions: inject into abdomen, thigh, or upper arm (deltoid muscle); rotate sites tramadol 50 mg tablet 100 mg PO BID Qty: 120 0RF glimepiride 1 mg tablet 1 mg PO QAM Qty: 30 1RF lisinopril 40 mg tablet 40 mg PO QAM Qty: 30 1RF metoprolol succinate 50 mg tablet extended release 24 hr 50 mg PO QAM Qty: 30 1RF pantoprazole 40 mg tablet,delayed release (DR/EC) 40 mg PO QAM Qty: 90 1RF clopidogrel 75 mg tablet 75 mg PO QAM Qty: 90 1RF metformin 500 mg tablet extended release 24 hr 2,000 mg PO QAM Qty: 360 3RF gabapentin 400 mg capsule 800 mg PO TID Qty: 180 5RF clotrimazole-betamethasone 1-0.05 % cream 1 applic topical BID 14 Days Qty: 45 0RF acetaminophen 650 mg Tablet Extended Release 1,300 mg PO UD PRN (Reason: ARTHRITIS PAIN) Patient Comments: takes at least 2 tablets every day. folic acid 400 mcg Tablet 0.4 mg PO QAM mecobalamin (vitamin B12) 1,000 mcg tablet,chewable 1,000 mcg PO QAM Discontinued metoprolol succinate 25 mg tablet extended release 24 hr 25 mg PO HS Qty: 90 3RF Rx Instructions: 25 mg PO daily bedtime; Discharge Orders: Discharge Order (Routine); Ordered 07/30/22 Ordered By: Norberto Kidd Admission Data Admit Date/Time: 07/29/22 11:03 Attending Provider: Norberto Kidd Admit Provider: Stu Hopkins Primary Care Provider: Nitish Lam Other Providers: Stu Hopkins ; Stephen Martino Other Interventions: Discharge Summary Assessment (RN) Last Done: 07/30/22 16:13 Coding Level of Care Code 08285 INP/OBS DISCH >30 MIN Diagnoses Atrial flutter with rapid ventricular response I48.92 Elevated troponin R77.8 Alcohol abuse F10.10 PAD (peripheral artery disease) I73.9 Neuropathy G62.9 Hyperlipidemia E78.5 Hyperlipidemia type: unspecified Diabetes mellitus, type 2 E11.9 Macrocytic anemia D53.9 Current smoker F17.200
== END 2022-07-30 17:27 | disposition home or self-care (01) | DRG 309 ==
LOC: ED 07:25 → SUATTDRO 11:03 → 4W 11:03

== ENCOUNTER 2023-03-11 18:20 | Inpatient (IN) ==
[2023-03-11] MEDS ORDERED: SODIUM CHLORIDE 0.9% 1,000 ML IV STA (18:31)
--- NOTE | 2023-03-11 18:31 | ED Triage Note ---
Date of Service March 11, 2023 History of Present Illness This patient was briefly evaluated while in triage. An abbreviated physical exam was performed. This patient is a 62-year-old Male who presents to the ED for evaluation of tachycardia and irregular heart rate. Pt. recently here for atrial fibrillation approximately 2 weeks ago. Pt. BP has been low and he has been dizzy all day. Does take Eliquis. Physical Exam VITALS: Vitals are noted on the nurse's note and reviewed by myself. GENERAL: This is a 62 year old male, in no acute distress, nondiaphoretic, well- developed well-nourished. SKIN: No obvious rashes, edema, erythema HEAD: Normocephalic atraumatic. EYES: Conjunctivae without injection, sclerae without icterus. NECK: No JVD. LUNGS: No retractions or accessory muscle use. MUSCULOSKELETAL: Normal gait. NEURO: Patient was alert and oriented to person place and time. No focal neurological deficits. Initial orders for labs and / or imaging were placed and patient was placed in the waiting area until a bed is available. Please see further documentation for the full ED course.
[2023-03-11] MEDS ORDERED: SODIUM CHLORIDE 0.9% 1,000 ML IV ONE (19:00)
[2023-03-11] MEDS ORDERED: MULTI-VITAMIN INFUSION 10 ML, THIAMINE HCL 100 MG, FOLIC ACID 1 MG in SODIUM CHLORIDE 0... IV ONE (19:00)
[2023-03-11] MEDS ORDERED: THIAMINE HCL 200 MG in SODIUM CHLORIDE 0.9% 50 ML IV STA (19:00)
[2023-03-11] MEDS ORDERED: METOPROLOL TARTRATE 1 MG/ML VIAL IV STA ×3 (19:00→19:46)
[2023-03-11 19:02] LABS: Basophils # (auto) 0.09 K/uL (0.00-0.20); Basophils % (auto) 0.8 %; Eosinophils # (auto) 0.09 K/uL (0.00-0.50); Eosinophils % (auto) 0.8 %; Hematocrit (blood only) 29.4 % (42.0-52.0); Hemoglobin 9.6 g/dl (14.0-18.0); Immature Granulocytes # (auto) 0.24 K/uL (0.01-0.20); Immature Granulocytes % (auto) 2.1 %; Lymphocytes # (auto) 1.72 K/uL (1.20-3.40); Lymphocytes % (auto) 15.2 %; Mean Corpuscular Hemoglobin 34.9 pg (25.0-34.0); Mean Corpuscular Hgb Conc 32.7 g/dL (32.0-36.0); Mean Corpuscular Volume 106.9 fL (80.0-100.0); Mean Platelet Volume 11.3 fL (9.4-12.4); Monocytes # (auto) 0.89 K/uL (0.11-0.59); Monocytes % (auto) 7.9 %; Neutrophils # (auto) 8.26 K/uL (1.40-6.50); Neutrophils % (auto) 73.2 %; Platelet Count 243 K/uL (130-400); RDW Coefficient of Variation 15.3 % (11.5-14.5); RDW Standard Deviation 59.8 fL (36.4-46.3); Red Blood Count 2.75 M/uL (4.70-6.10); White Blood Count 11.29 K/ul (4.8-10.8)
[2023-03-11 19:16] LABS: iSTAT Creatinine 1.1 mg/dl (0.6-1.3); iSTAT Hemoglobin 9.5 g/dl (14.0-18.0); iSTAT Ionized Calcium 1.25 mmol/l (1.12-1.32); iSTAT Potassium 4.2 mmol/L (3.3-5.0)
[2023-03-11 19:19] LABS: Albumin Globulin Ratio 1.3 (0.9-2); BUN Creatinine Ratio 21.7 (10-20); Bilirubin,Total 0.2 mg/dl (0.2-1.0); Calcium 9.9 mg/dl (8.6-10.3); Est GFR (African American) 73.6 ml/min; Est GFR (Non-African American) 63.5 ml/min; Magnesium 1.6 mg/dl (1.7-2.4); Potassium 4.2 mmol/L (3.5-5.1)
[2023-03-11 19:29] LABS: Phosphorus 3.6 mg/dl (2.5-4.9)
[2023-03-11 19:30] LABS: Partial Thromboplastin Ratio 0.9; Partial Thromboplastin Time 26.6 Seconds (21.0-31.0); Prothrombin Time 10.7 Seconds (9.0-12.0)
[2023-03-11 19:35] LABS: Thyroid Stimulating Hormone 1.33 uIu/ml (0.300-4.500)
[2023-03-11 19:37] LABS: Troponin I High Sensitivity 109.5 pg/ml (0-20)
[2023-03-11] MEDS: MAGNESIUM SULFATE / D5W 1 GM/100 ML BAG IV SCH ×4 (19:42→23:45)
[2023-03-11] MEDS ORDERED: DIGOXIN 0.125 MG TAB PO ONE (19:48)
[2023-03-11] MEDS ORDERED: ASPIRIN CHEW 324 MG PO STA (19:48)
--- NOTE | 2023-03-11 20:02 | Emergency Department Note ---
Impression & Plan Atrial flutter with rapid ventricular response, Elevated troponin, On apixaban therapy, Alcohol abuse ED Provider Note NAME: RAKEL GAXIOLA JR AGE: 62 SEX: M ARRIVES VIA: Walk-In INFORMANT: Patient ED PROVIDER(S): Maxime Fernandez MD CHIEF COMPLAINT: Back pain, dizziness PLAN: Disposition: Admit MEDICAL DECISION MAKING: The patient is a pleasant 62-year-old gentleman with a past medical history of paroxysmal atrial flutter on digoxin, diltiazem, Toprol and Eliquis, hypertension, hyperlipidemia, sleep apnea, PAD, alcohol abuse, chronic pain/arthritis on tramadol who presents to the emergency department via walk-in, accompanied by his for evaluation of ongoing lightheadedness and upper back pain that he noticed around 1230 today. He denies having any chest pain or shortness of breath. He reports he has been having intermittent indigestion over the past couple of days and had single episode of nausea and vomiting over the weekend that resolved. Patient was admitted to this facility from 02/26-03/01 for atrial fibrillation with RVR where electrical cardioversion was planned following [facility] however it was noted that he spontaneously cardioverted during his procedure and so this was not required. Patient reports he has been taking his medications as prescribed and has not missed any doses. He reports he is due her for his medications this evening which he notes his alarm to take his medications went off when he was in triage. He denies any fevers, chills, cough, congestion, diarrhea. On arrival to the emergency department the patient was found to be tachycardic to 160s with hypotension 70s/40s when presenting to triage. Patient was taken to critical care bay where he was evaluated further. Blood pressure was somewhat better upon arriving critical care bay further with initiation of IV fluid hydration. EKG demonstrates atrial flutter with RVR at [address] abnormalities without overt ST elevation. Patient was treated with initial 5 mg of IV Lopressor which improved heart rate to the 130s and improvement in blood pressure initially though fluctuating somewhat but responsive to additional fluids. He was additionally given 5 mg of IV Lopressor x2 for total of 15 mg with heart rate still in the 110s-120s though blood pressure more stable. Patient received total of 2 L normal saline and had been given additional liter maintenance with banana bag. Repeat EKG was improved with atrial flutter with variable AV block at [address] abnormality without overt ST elevation or depression. Chest x-ray performed and suspect increased cardiomegaly related to positional artifact and otherwise no acute cardiopulmonary process per my preliminary review. WBC 11.2, nonspecific. H/H similar to prior. Platelets within normal limits. Chemistry without metabolic acidosis. Sodium 129 suspected to be related to patient's alcoholism with osmolality pending. Chemistry without metabolic acidosis. LFTs are normal. Magnesium 1.6 with IV repletion provided. High- sensitivity troponin initially 109, nonspecific with delta 2.5-hour high- sensitivity troponin downtrending to 90. Medical alcohol was undetectable. Given the patient's tachycardia and complaint of back pain CT of the chest with dissection protocol was performed and was negative for PE or acute aortic pathology. Upon return from CT patient's heart rate still tachycardic in the 110s and so that diltiazem bolus of 5 mg with drip initiated. Patient had also been given full dose aspirin as well as his home dose of digoxin. The patient is agree with plan for admission for further management. Case was discussed [facility] with GIANA Fraga hospitalist, who will evaluate the patient for admission. Triage Nursing notes reviewed and agree them. Prior/outside medical records reviewed Vital Signs: reviewed Differential diagnosis: Premature contractions, electrolyte abnormality, cardiac dysrhythmia, thyroid dysfunction, pulmonary embolism, infection, gastrointestinal, as well as other pathologies. ER treatment provided: See below. Diagnostics interpreted by me: ECG 1843: Atrial flutter with RVR 161 bpm, no ectopy, ST abnormality, no overt ST elevation, QTc 369, QRS 84. ECG 2025: Atrial flutter with RVR, 121 bpm, ST abnormality, no overt ST elevation, QTc 408, QRS 84. Cardiac Monitoring: An order for continuous cardiac monitoring was placed and demonstrated atrial flutter with RVR, 161 bpm. Laboratory studies: See below Imaging studies: See below Consultation(s): [facility] with GIANA Fraga hospitalist HPI: The patient is a pleasant 62-year-old gentleman with a past medical history of paroxysmal atrial flutter on digoxin, diltiazem, Toprol and Eliquis, hypertension, hyperlipidemia, sleep apnea, PAD, alcohol abuse, chronic pain/arthritis on tramadol who presents to the emergency department via walk-in, accompanied by his for evaluation of ongoing lightheadedness and upper back pain that he noticed around 1230 today. He denies having any chest pain or shortness of breath. He reports he has been having intermittent indigestion over the past couple of days and had single episode of nausea and vomiting over the weekend that resolved. Patient was admitted to this facility from 02/26-03/01 for atrial fibrillation with RVR where electrical cardioversion was planned following [facility] however it was noted that he spontaneously cardioverted during his procedure and so this was not required. Patient reports he has been taking his medications as prescribed and has not missed any doses. He reports he is due her for his medications this evening which he notes his alarm to take his medications went off when he was in triage. He denies any fevers, chills, cough, congestion, diarrhea. ROS: See above HPI for pertinent positives & negatives. A total of 10 systems reviewed and were otherwise negative. VITALS:See Below PHYSICAL EXAMINATION: GENERAL: Awake, alert, fatigued-appearing, in no distress HENT: Normocephalic, atraumatic. Oropharynx with dry mucous membranes and otherwise unremarkable. EYES: Normal conjunctiva. Sclera non-icteric. NECK: Supple. No nuchal rigidity. FROM. No JVD. RESPIRATORY: Clear to auscultation. CARDIAC: Tachycardic rate, normal rhythm. Extremities warm and well perfused. Pulses equal. ABDOMEN: Soft, non-distended. No tenderness to palpation. No rebound or guarding. No masses. RECTAL: Deferred. MUSCULOSKELETAL: Chest examination reveals no tenderness. The back is symmetrical on inspection without obvious abnormality. There is no CVA tenderness to palpation. No joint edema. LOWER EXTREMITIES: Calves are equal size bilaterally and non-tender. No edema. No discoloration. NEURO: Normal sensorium. No sensory or motor deficits noted. SKIN: No rash or jaundice noted. ED COURSE: Critical Care: I have personally spent greater than 75 minutes of critical care time in the direct management of this patient. This includes bedside care, interpretation of diagnostic studies, and testing, discussion with consultants, patient, and family members, and other required patient management activities. This 75 minutes is in excess of all separately billable procedures. Maxime Fernandez MD Past Med/Surg History Medical History Alcohol abuse Pt admits to >6 beers daily Bilateral carotid artery stenosis Per 11/2021 Carotid Doppler: 50-69% stenosis of right ICA, less than 50% stenosis of left ICA, greater than 50% stenosis of right ECA Antegrade flow in both vertebral arteries CAD in [place] artery s/p LAD stent x2 () Chronic anemia Degenerative disc disease Diabetes mellitus, type 2 Encounter for pre-operative examination GERD (gastroesophageal reflux disease) Well controlled and stable History of anxiety History of cardioversion 01/2021, [facility]; F/U [facility] History of chronic back pain Neurogenic claudication due to lumbar stenosis History of COVID-19 03/18/2022>resolved History of gastric ulcer No recent issues Hx of transesophageal echocardiography ([facility]) for monitoring 01/2021, [facility] Hyperlipidemia Hypertension Low iron Myocardial infarction Anterolateral SC- 2008, [place], had cardiac cath; f/u [facility] Neuropathy Otalgia, right ear Paroxysmal atrial flutter 01/2021- s/p cardoversion- with excessive alcohol intake- felt to be contributing component. No AC. No recurrence per PCP records 07/29/22- - Recurrence in preop area prior to surgery - sent from ACU to ED- admitted to [facility] 07/29/22-07/30/22 Peripheral arterial disease Severe occlusive disease S/p L common femoral endarterectomy with bovine patch and lithotripsy of SFA and Popliteal arteries Sleep apnea "Mild to moderate"-cpap (has not been using for months) Surgical History Fusion of spine CERVICAL, "HAVE 80% OF MOTION" History of anesthesia reaction WITH BACK SURGERY 2004 - DISORIENTED, PULLED CATHETER OUT ([facility]) History of colonoscopy History of endarterectomy Left Femoral Endarterectomy with Bovine Patch History of esophagogastroduodenoscopy (EGD) History of heart artery stent 2006 or 2007, x1 stent, [place]; f/u [facility] History of lumbar surgery X 3 - 2004, 2006, 2019 History of nasal septoplasty History of total knee replacement RT/LEFT (LEFT REVISION) Hx of cataract extraction rt/lt. Hx of transurethral resection of prostate Family History Mother Family history of diabetes mellitus Father Family history of diabetes mellitus Other No family history of adverse response to anesthesia Denies family history of Ovarian cancer Prostate cancer Myocardial infarction Breast cancer Colorectal cancer Social History Smoking Status: Current every day smoker Tobacco Type: Cigarettes Age Started Using Tobacco: 18; Cigarettes Per Day: 10; Second Hand Exposure: Yes ( SMOKES); Do You Dip or Chew Tobacco: No; Hx Alcohol Use: Yes Alcohol type: beer Alcohol type Comment: 6-8 beers Hx Substance Use: No Preferred Language: [place] Communication Ability: Effective Visual Impairment: No Limitations Alterations Expert Required: No Beliefs That Will Affect Care: None marital status: Current Living Situation: Spouse Current Living Situation Comment: Lives at home with How many Children do You have: 4 Feels Safe at Home: Yes Childhood Exposure to Second-Hand Smoke: Yes Dental Care, Regularly: Yes Physical Activity Frequency: Does not Exercise Seatbelt Use: always Sunscreen Use: No Assistive Devices: Cane and CPAP Allergies Allergies Allergy/AdvReac Type Severity Reaction Status Date / Time latex Allergy Mild Rash Verified 03/11/23 20:06 Penicillins Allergy Mild Rash Verified 03/11/23 20:06 gemfibrozil AdvReac Intermediate BODY ACHES Verified 03/11/23 20:06 [id number]-[id number] Reductase AdvReac Intermediate body aches Verified 03/11/23 20:06 Inhibitor [[id number]-[id number] Reductase Inhibitor] adhesive AdvReac Mild Rash Verified 03/11/23 20:06 NSAIDS (Non-Steroidal AdvReac Unknown TOLD NOT Verified 03/11/23 20:06 Anti-Inflamma TO TAKE - HX STOMACH ULCER Home Meds Home Medications Medication Instructions Recorded Confirmed acetaminophen 650 mg 650 mg PO UD PRN ARTHRITIS PAIN 12/06/20 03/11/23 tablet,extended release folic acid 400 mcg tablet 0.4 mg PO QAM 04/23/22 03/11/23 cholecalciferol (vitamin D3) 125 125 mcg PO QAM 08/14/22 03/11/23 mcg (5,000 unit) capsule cyanocobalamin (vitamin B-12) 1,000 mcg PO QAM 08/26/22 03/11/23 1,000 mcg tablet (Vitamin B-12) digoxin 125 mcg (0.125 mg) tablet 125 mcg PO HS 02/26/23 03/11/23 diltiazem HCl 240 mg 240 mg PO HS 02/26/23 03/11/23 capsule,extended release 24 hr Previous Rx's Medication Instructions Recorded metformin 500 mg tablet,extended 2,000 mg PO QAM #360 tabs 08/13/22 release 24 hr duloxetine 60 mg capsule,delayed 60 mg PO QAM #90 caps 09/11/22 release gabapentin 400 mg capsule 800 mg PO TID #180 caps 12/16/22 pantoprazole 40 mg tablet,delayed 40 mg PO QAM #90 tabs 01/13/23 release clopidogrel 75 mg tablet (Plavix) 75 mg PO DAILY #30 tabs 01/22/23 aspirin 81 mg chewable tablet 81 mg PO QAM #90 tabs 01/28/23 apixaban 5 mg tablet (Eliquis) 5 mg PO BID #180 tabs 01/29/23 glimepiride 1 mg tablet 1 mg PO QAM #90 tabs 02/03/23 lisinopril 40 mg tablet 40 mg PO QAM #90 tabs 02/03/23 metoprolol tartrate 50 mg tablet 50 mg PO BID #180 tabs 02/03/23 tramadol 50 mg tablet 100 mg PO BID #120 tabs 02/03/23 alirocumab 150 mg/mL subcutaneous 150 mg subcut Q14D #2 mL 02/05/23 pen injector (Praluent Pen) tamsulosin 0.4 mg capsule 0.4 mg PO DAILY #90 caps 03/06/23 Results & Data (ED) Vital Signs Vital Signs - 24 hr 03/11/23 18:30 03/11/23 18:53 03/11/23 18:57 Temperature 36.7 C Temperature Source Temporal Artery Scan Pulse Rate 161 H Pulse Rate [Right Foot] 157 H 158 H Pulse Rate from SpO2 Sensor Respiratory Rate 22 22 22 Respiratory Effort / Characteristics Non-Labored Non-Labored Spontaneous Respiratory Depth Normal Normal Blood Pressure 76/46 L Blood Pressure [Right Arm] 95/68 L 102/72 Blood Pressure Mean 56 Blood Pressure Mean [Right Arm] 77 82 Pulse Oximetry 97 97 Oxygen Delivery Method Room Air Room Air Sepsis Recent Fever Within 48 Hours No Sepsis New/Unexplained Change in Mental Status No Sepsis Action Taken by Nursing No Action Required 03/11/23 19:07 03/11/23 19:09 03/11/23 19:20 Temperature Temperature Source Pulse Rate 150 H Pulse Rate [Right Foot] 157 H Pulse Rate from SpO2 Sensor Respiratory Rate 18 Respiratory Effort / Characteristics Non-Labored Respiratory Depth Normal Blood Pressure 118/66 Blood Pressure [Right Arm] 84/59 L Blood Pressure Mean Blood Pressure Mean [Right Arm] 67 Pulse Oximetry 95 Oxygen Delivery Method Room Air Room Air Sepsis Recent Fever Within 48 Hours Sepsis New/Unexplained Change in Mental Status Sepsis Action Taken by Nursing 03/11/23 18:51 03/11/23 18:51 03/11/23 18:55 Temperature Temperature Source Pulse Rate 157 H 159 H Pulse Rate [Right Foot] Pulse Rate from SpO2 Sensor Respiratory Rate 22 20 Respiratory Effort / Characteristics Respiratory Depth Blood Pressure 95/68 L Blood Pressure [Right Arm] Blood Pressure Mean 81 Blood Pressure Mean [Right Arm] Pulse Oximetry Oxygen Delivery Method Sepsis Recent Fever Within 48 Hours Sepsis New/Unexplained Change in Mental Status Sepsis Action Taken by Nursing 03/11/23 18:56 03/11/23 18:56 03/11/23 19:00 Temperature Temperature Source Pulse Rate 157 H Pulse Rate [Right Foot] Pulse Rate from SpO2 Sensor Respiratory Rate 22 Respiratory Effort / Characteristics Respiratory Depth Blood Pressure 102/72 88/66 L Blood Pressure [Right Arm] Blood Pressure Mean 86 75 Blood Pressure Mean [Right Arm] Pulse Oximetry 100 Oxygen Delivery Method Sepsis Recent Fever Within 48 Hours Sepsis New/Unexplained Change in Mental Status Sepsis Action Taken by Nursing 03/11/23 19:00 03/11/23 19:05 03/11/23 19:05 Temperature Temperature Source Pulse Rate 157 H 158 H Pulse Rate [Right Foot] Pulse Rate from SpO2 Sensor Respiratory Rate 18 17 Respiratory Effort / Characteristics Respiratory Depth Blood Pressure 83/63 L Blood Pressure [Right Arm] Blood Pressure Mean 70 Blood Pressure Mean [Right Arm] Pulse Oximetry Oxygen Delivery Method Sepsis Recent Fever Within 48 Hours Sepsis New/Unexplained Change in Mental Status Sepsis Action Taken by Nursing 03/11/23 19:07 03/11/23 19:07 03/11/23 19:10 Temperature Temperature Source Pulse Rate 157 H 156 H Pulse Rate [Right Foot] Pulse Rate from SpO2 Sensor 157 H 156 H Respiratory Rate 20 20 Respiratory Effort / Characteristics Respiratory Depth Blood Pressure 84/59 L Blood Pressure [Right Arm] Blood Pressure Mean 65 Blood Pressure Mean [Right Arm] Pulse Oximetry 95 97 Oxygen Delivery Method Sepsis Recent Fever Within 48 Hours Sepsis New/Unexplained Change in Mental Status Sepsis Action Taken by Nursing 03/11/23 19:13 03/11/23 19:13 03/11/23 19:15 Temperature Temperature Source Pulse Rate 151 H Pulse Rate [Right Foot] Pulse Rate from SpO2 Sensor 151 H Respiratory Rate 22 Respiratory Effort / Characteristics Respiratory Depth Blood Pressure 96/73 L 118/66 Blood Pressure [Right Arm] Blood Pressure Mean 88 88 Blood Pressure Mean [Right Arm] Pulse Oximetry 99 Oxygen Delivery Method Sepsis Recent Fever Within 48 Hours Sepsis New/Unexplained Change in Mental Status Sepsis Action Taken by Nursing 03/11/23 19:15 03/11/23 19:31 03/11/23 19:20 Temperature Temperature Source Pulse Rate 149 H 128 H Pulse Rate [Right Foot] Pulse Rate from SpO2 Sensor 150 H Respiratory Rate 20 Respiratory Effort / Characteristics Respiratory Depth Blood Pressure 104/71 118/77 Blood Pressure [Right Arm] Blood Pressure Mean 92 Blood Pressure Mean [Right Arm] Pulse Oximetry 98 Oxygen Delivery Method Sepsis Recent Fever Within 48 Hours Sepsis New/Unexplained Change in Mental Status Sepsis Action Taken by Nursing 03/11/23 19:20 03/11/23 19:25 03/11/23 19:25 Temperature Temperature Source Pulse Rate 153 H 137 H Pulse Rate [Right Foot] Pulse Rate from SpO2 Sensor Respiratory Rate 20 20 Respiratory Effort / Characteristics Respiratory Depth Blood Pressure 111/73 Blood Pressure [Right Arm] Blood Pressure Mean 91 Blood Pressure Mean [Right Arm] Pulse Oximetry 98 98 Oxygen Delivery Method Room Air Sepsis Recent Fever Within 48 Hours Sepsis New/Unexplained Change in Mental Status Sepsis Action Taken by Nursing 03/11/23 19:30 03/11/23 19:30 03/11/23 19:34 Temperature Temperature Source Pulse Rate 128 H 120 H Pulse Rate [Right Foot] Pulse Rate from SpO2 Sensor Respiratory Rate 18 20 Respiratory Effort / Characteristics Respiratory Depth Blood Pressure 104/71 Blood Pressure [Right Arm] Blood Pressure Mean 85 Blood Pressure Mean [Right Arm] Pulse Oximetry 96 94 Oxygen Delivery Method Sepsis Recent Fever Within 48 Hours Sepsis New/Unexplained Change in Mental Status Sepsis Action Taken by Nursing 03/11/23 19:35 03/11/23 19:35 03/11/23 19:40 Temperature Temperature Source Pulse Rate 120 H 121 H Pulse Rate [Right Foot] Pulse Rate from SpO2 Sensor Respiratory Rate 20 19 Respiratory Effort / Characteristics Respiratory Depth Blood Pressure 104/64 Blood Pressure [Right Arm] Blood Pressure Mean 75 Blood Pressure Mean [Right Arm] Pulse Oximetry 93 95 Oxygen Delivery Method Sepsis Recent Fever Within 48 Hours Sepsis New/Unexplained Change in Mental Status Sepsis Action Taken by Nursing 03/11/23 19:41 03/11/23 19:41 03/11/23 19:59 Temperature Temperature Source Pulse Rate 120 H 127 H Pulse Rate [Right Foot] Pulse Rate from SpO2 Sensor Respiratory Rate 22 Respiratory Effort / Characteristics Respiratory Depth Blood Pressure 102/55 L 119/68 Blood Pressure [Right Arm] Blood Pressure Mean 79 Blood Pressure Mean [Right Arm] Pulse Oximetry 96 Oxygen Delivery Method Room Air Sepsis Recent Fever Within 48 Hours Sepsis New/Unexplained Change in Mental Status Sepsis Action Taken by Nursing 03/11/23 19:45 03/11/23 19:46 03/11/23 19:46 Temperature Temperature Source Pulse Rate 141 H 143 H Pulse Rate [Right Foot] Pulse Rate from SpO2 Sensor Respiratory Rate 16 20 Respiratory Effort / Characteristics Respiratory Depth Blood Pressure 114/73 Blood Pressure [Right Arm] Blood Pressure Mean 74 Blood Pressure Mean [Right Arm] Pulse Oximetry 92 96 Oxygen Delivery Method Sepsis Recent Fever Within 48 Hours Sepsis New/Unexplained Change in Mental Status Sepsis Action Taken by Nursing 03/11/23 19:50 03/11/23 20:14 03/11/23 19:53 Temperature Temperature Source Pulse Rate 127 H 126 H Pulse Rate [Right Foot] Pulse Rate from SpO2 Sensor Respiratory Rate 17 Respiratory Effort / Characteristics Respiratory Depth Blood Pressure 132/96 Blood Pressure [Right Arm] Blood Pressure Mean 98 Blood Pressure Mean [Right Arm] Pulse Oximetry 97 Oxygen Delivery Method Sepsis Recent Fever Within 48 Hours Sepsis New/Unexplained Change in Mental Status Sepsis Action Taken by Nursing 03/11/23 19:53 03/11/23 19:55 03/11/23 19:56 Temperature Temperature Source Pulse Rate 120 H 127 H Pulse Rate [Right Foot] Pulse Rate from SpO2 Sensor Respiratory Rate 20 22 Respiratory Effort / Characteristics Respiratory Depth Blood Pressure 119/68 Blood Pressure [Right Arm] Blood Pressure Mean 88 Blood Pressure Mean [Right Arm] Pulse Oximetry 97 95 Oxygen Delivery Method Sepsis Recent Fever Within 48 Hours Sepsis New/Unexplained Change in Mental Status Sepsis Action Taken by Nursing 03/11/23 19:56 03/11/23 20:00 03/11/23 20:00 Temperature Temperature Source Pulse Rate 128 H 126 H Pulse Rate [Right Foot] Pulse Rate from SpO2 Sensor Respiratory Rate 17 17 Respiratory Effort / Characteristics Respiratory Depth Blood Pressure 92/67 L Blood Pressure [Right Arm] Blood Pressure Mean 75 Blood Pressure Mean [Right Arm] Pulse Oximetry 96 96 Oxygen Delivery Method Room Air Sepsis Recent Fever Within 48 Hours Sepsis New/Unexplained Change in Mental Status Sepsis Action Taken by Nursing 03/11/23 20:01 03/11/23 20:01 03/11/23 20:05 Temperature Temperature Source Pulse Rate 127 H Pulse Rate [Right Foot] Pulse Rate from SpO2 Sensor 137 H Respiratory Rate 16 Respiratory Effort / Characteristics Respiratory Depth Blood Pressure 90/70 L 88/57 L Blood Pressure [Right Arm] Blood Pressure Mean 78 67 Blood Pressure Mean [Right Arm] Pulse Oximetry 96 Oxygen Delivery Method Sepsis Recent Fever Within 48 Hours Sepsis New/Unexplained Change in Mental Status Sepsis Action Taken by Nursing 03/11/23 20:05 03/11/23 20:10 03/11/23 20:10 Temperature Temperature Source Pulse Rate 128 H 127 H Pulse Rate [Right Foot] Pulse Rate from SpO2 Sensor 125 H 144 H Respiratory Rate 17 26 H Respiratory Effort / Characteristics Respiratory Depth Blood Pressure 92/67 L Blood Pressure [Right Arm] Blood Pressure Mean 78 Blood Pressure Mean [Right Arm] Pulse Oximetry 96 96 Oxygen Delivery Method Sepsis Recent Fever Within 48 Hours Sepsis New/Unexplained Change in Mental Status Sepsis Action Taken by Nursing 03/11/23 20:15 03/11/23 20:16 03/11/23 20:16 Temperature Temperature Source Pulse Rate 126 H 119 H Pulse Rate [Right Foot] Pulse Rate from SpO2 Sensor Respiratory Rate 19 18 Respiratory Effort / Characteristics Respiratory Depth Blood Pressure 92/57 L Blood Pressure [Right Arm] Blood Pressure Mean 69 Blood Pressure Mean [Right Arm] Pulse Oximetry 96 96 Oxygen Delivery Method Sepsis Recent Fever Within 48 Hours Sepsis New/Unexplained Change in Mental Status Sepsis Action Taken by Nursing 03/11/23 20:20 03/11/23 20:21 03/11/23 20:21 Temperature Temperature Source Pulse Rate 118 H 119 H Pulse Rate [Right Foot] Pulse Rate from SpO2 Sensor Respiratory Rate 20 18 Respiratory Effort / Characteristics Respiratory Depth Blood Pressure 97/64 L Blood Pressure [Right Arm] Blood Pressure Mean 75 Blood Pressure Mean [Right Arm] Pulse Oximetry 96 97 Oxygen Delivery Method Room Air Sepsis Recent Fever Within 48 Hours Sepsis New/Unexplained Change in Mental Status Sepsis Action Taken by Nursing 03/11/23 20:25 03/11/23 20:26 03/11/23 20:26 Temperature Temperature Source Pulse Rate 117 H 118 H Pulse Rate [Right Foot] Pulse Rate from SpO2 Sensor Respiratory Rate 20 21 Respiratory Effort / Characteristics Respiratory Depth Blood Pressure 117/89 Blood Pressure [Right Arm] Blood Pressure Mean 95 Blood Pressure Mean [Right Arm] Pulse Oximetry 96 96 Oxygen Delivery Method Room Air Sepsis Recent Fever Within 48 Hours Sepsis New/Unexplained Change in Mental Status Sepsis Action Taken by Nursing 03/11/23 18:51 03/11/23 20:30 03/11/23 20:30 Temperature Temperature Source Pulse Rate 158 H 125 H Pulse Rate [Right Foot] Pulse Rate from SpO2 Sensor Respiratory Rate 19 Respiratory Effort / Characteristics Respiratory Depth Blood Pressure 106/50 L Blood Pressure [Right Arm] Blood Pressure Mean 76 Blood Pressure Mean [Right Arm] Pulse Oximetry 96 Oxygen Delivery Method Sepsis Recent Fever Within 48 Hours Sepsis New/Unexplained Change in Mental Status Sepsis Action Taken by Nursing 03/11/23 20:50 03/11/23 20:53 03/11/23 20:53 Temperature Temperature Source Pulse Rate 124 H 118 H Pulse Rate [Right Foot] Pulse Rate from SpO2 Sensor Respiratory Rate 20 19 Respiratory Effort / Characteristics Respiratory Depth Blood Pressure 129/81 Blood Pressure [Right Arm] Blood Pressure Mean 100 Blood Pressure Mean [Right Arm] Pulse Oximetry 97 96 Oxygen Delivery Method Room Air Room Air Sepsis Recent Fever Within 48 Hours Sepsis New/Unexplained Change in Mental Status Sepsis Action Taken by Nursing 03/11/23 21:00 03/11/23 21:01 03/11/23 21:01 Temperature Temperature Source Pulse Rate 126 H 118 H Pulse Rate [Right Foot] Pulse Rate from SpO2 Sensor Respiratory Rate 18 20 Respiratory Effort / Characteristics Respiratory Depth Blood Pressure 146/75 H Blood Pressure [Right Arm] Blood Pressure Mean 97 Blood Pressure Mean [Right Arm] Pulse Oximetry 95 96 Oxygen Delivery Method Sepsis Recent Fever Within 48 Hours Sepsis New/Unexplained Change in Mental Status Sepsis Action Taken by Nursing 03/11/23 21:15 03/11/23 21:15 03/11/23 21:39 Temperature Temperature Source Pulse Rate 118 H 117 H Pulse Rate [Right Foot] Pulse Rate from SpO2 Sensor Respiratory Rate 17 Respiratory Effort / Characteristics Respiratory Depth Blood Pressure 117/78 Blood Pressure [Right Arm] Blood Pressure Mean 93 Blood Pressure Mean [Right Arm] Pulse Oximetry 96 Oxygen Delivery Method Room Air Sepsis Recent Fever Within 48 Hours Sepsis New/Unexplained Change in Mental Status Sepsis Action Taken by Nursing 03/11/23 21:39 03/11/23 21:39 Temperature Temperature Source Pulse Rate 117 H 118 H Pulse Rate [Right Foot] Pulse Rate from SpO2 Sensor Respiratory Rate Respiratory Effort / Characteristics Respiratory Depth Blood Pressure Blood Pressure [Right Arm] Blood Pressure Mean Blood Pressure Mean [Right Arm] Pulse Oximetry Oxygen Delivery Method Sepsis Recent Fever Within 48 Hours Sepsis New/Unexplained Change in Mental Status Sepsis Action Taken by Nursing Laboratory Data 03/11/23 18:47 03/11/23 18:47 Lab Results 03/11/23 03/11/23 03/11/23 Range/Units 18:47 18:47 18:47 WBC 11.29 H (4.8-10.8) K/ul RBC 2.75 L (4.70-6.10) M/uL Hgb 9.6 L (14.0-18.0) g/dl POC Hgb (14.0-18.0) g/dl Hct 29.4 L (42.0-52.0) % POC Hct (42-52) % MCV 106.9 H (80.0-100.0) fL MCH 34.9 H (25.0-34.0) pg MCHC 32.7 (32.0-36.0) g/dL RDW Std Deviation 59.8 H (36.4-46.3) fL RDW Coeff of Kvng 15.3 H (11.5-14.5) % Plt Count 243 (130-400) K/uL MPV 11.3 (9.4-12.4) fL Immature Gran % (Auto) 2.1 % Neut % (Auto) 73.2 % Lymph % (Auto) 15.2 % [place] % (Auto) 7.9 % Eos % (Auto) 0.8 % Baso % (Auto) 0.8 % Neut # (Auto) 8.26 H (1.40-6.50) K/uL Lymph # (Auto) 1.72 (1.20-3.40) K/uL [place] # (Auto) 0.89 H (0.11-0.59) K/uL Eos # (Auto) 0.09 (0.00-0.50) K/uL Baso # (Auto) 0.09 (0.00-0.20) K/uL Immature Gran # (Auto) 0.24 H (0.01-0.20) K/uL PT 10.7 (9.0-12.0) Seconds INR 1.0 (0.9-1.1) APTT 26.6 (21.0-31.0) Seconds PTT Ratio 0.9 POC Sodium (135-144) mmol/L Sodium 129 L (136-145) mmol/L POC Potassium (3.3-5.0) mmol/L Potassium 4.2 (3.5-5.1) mmol/L POC Chloride (101-112) mmol/L Chloride 99 (98-107) mmol/L Carbon Dioxide 21 (21-32) mmol/L POC Total CO2 (24-31) mmol/L Anion Gap 9 (3-11) POC Anion Gap (16-25) mmol/L POC BUN (7-18) mg/dl BUN 26 H (6-23) mg/dl Creatinine 1.20 (0.6-1.4) mg/dl POC Creatinine (0.6-1.3) mg/dl Est Cr Clr Drug Dosing 80.0 ml/min Est GFR ( Amer) 73.6 ml/min Est GFR (Non-Af Amer) 63.5 ml/min BUN/Creatinine Ratio 21.7 H (10-20) Glucose 150 H (70-99(Fasting)) mg/dl POC Glucose (other) (70-99) mg/dl Osmolality (280-300) mOsm/kg Calcium 9.9 (8.6-10.3) mg/dl POC Ioniz Calcium Sky (1.12-1.32) mmol/l Phosphorus 3.6 (2.5-4.9) mg/dl Magnesium 1.6 L (1.7-2.4) mg/dl Total Bilirubin 0.2 (0.2-1.0) mg/dl AST 13 (13-39) U/L ALT 16 (7-52) U/L Alkaline Phosphatase 65 (34-104) U/L Troponin I High Sens 109.5 H* (0-20) pg/ml Total Protein 7.0 (6.0-8.3) gm/dl Albumin 4.0 (3.4-5.0) gm/dl Globulin 3.0 (2.5-4.0) gm/dl Albumin/Globulin Ratio 1.3 (0.9-2) TSH 1.330 (0.300-4.500) uIu/ml Urine Osmolality (500-800) mOsm/kg Ur Random Sodium mmol/L Digoxin (0.8-2.0) ng/ml Ethyl Alcohol mg/dL (<10.0) mg/dl 03/11/23 03/11/23 03/11/23 Range/Units 18:47 18:47 18:47 WBC (4.8-10.8) K/ul RBC (4.70-6.10) M/uL Hgb (14.0-18.0) g/dl POC Hgb (14.0-18.0) g/dl Hct (42.0-52.0) % POC Hct (42-52) % MCV (80.0-100.0) fL MCH (25.0-34.0) pg MCHC (32.0-36.0) g/dL RDW Std Deviation (36.4-46.3) fL RDW Coeff of Kvng (11.5-14.5) % Plt Count (130-400) K/uL MPV (9.4-12.4) fL Immature Gran % (Auto) % Neut % (Auto) % Lymph % (Auto) % [place] % (Auto) % Eos % (Auto) % Baso % (Auto) % Neut # (Auto) (1.40-6.50) K/uL Lymph # (Auto) (1.20-3.40) K/uL [place] # (Auto) (0.11-0.59) K/uL Eos # (Auto) (0.00-0.50) K/uL Baso # (Auto) (0.00-0.20) K/uL Immature Gran # (Auto) (0.01-0.20) K/uL PT (9.0-12.0) Seconds INR (0.9-1.1) APTT (21.0-31.0) Seconds PTT Ratio POC Sodium (135-144) mmol/L Sodium (136-145) mmol/L POC Potassium (3.3-5.0) mmol/L Potassium (3.5-5.1) mmol/L POC Chloride (101-112) mmol/L Chloride (98-107) mmol/L Carbon Dioxide (21-32) mmol/L POC Total CO2 (24-31) mmol/L Anion Gap (3-11) POC Anion Gap (16-25) mmol/L POC BUN (7-18) mg/dl BUN (6-23) mg/dl Creatinine (0.6-1.4) mg/dl POC Creatinine (0.6-1.3) mg/dl Est Cr Clr Drug Dosing ml/min Est GFR ( Amer) ml/min Est GFR (Non-Af Amer) ml/min BUN/Creatinine Ratio (10-20) Glucose (70-99(Fasting)) mg/dl POC Glucose (other) (70-99) mg/dl Osmolality (280-300) mOsm/kg Calcium (8.6-10.3) mg/dl POC Ioniz Calcium Sky (1.12-1.32) mmol/l Phosphorus Cancelled (2.5-4.9) mg/dl Magnesium (1.7-2.4) mg/dl Total Bilirubin (0.2-1.0) mg/dl AST (13-39) U/L ALT (7-52) U/L Alkaline Phosphatase (34-104) U/L Troponin I High Sens (0-20) pg/ml Total Protein (6.0-8.3) gm/dl Albumin (3.4-5.0) gm/dl Globulin (2.5-4.0) gm/dl Albumin/Globulin Ratio (0.9-2) TSH (0.300-4.500) uIu/ml Urine Osmolality (500-800) mOsm/kg Ur Random Sodium mmol/L Digoxin 0.4 L (0.8-2.0) ng/ml Ethyl Alcohol mg/dL < 10.0 (<10.0) mg/dl 03/11/23 03/11/23 03/11/23 Range/Units 18:47 19:03 20:06 WBC (4.8-10.8) K/ul RBC (4.70-6.10) M/uL Hgb (14.0-18.0) g/dl POC Hgb 9.5 L (14.0-18.0) g/dl Hct (42.0-52.0) % POC Hct 28 L (42-52) % MCV (80.0-100.0) fL MCH (25.0-34.0) pg MCHC (32.0-36.0) g/dL RDW Std Deviation (36.4-46.3) fL RDW Coeff of Kvng (11.5-14.5) % Plt Count (130-400) K/uL MPV (9.4-12.4) fL Immature Gran % (Auto) % Neut % (Auto) % Lymph % (Auto) % [place] % (Auto) % Eos % (Auto) % Baso % (Auto) % Neut # (Auto) (1.40-6.50) K/uL Lymph # (Auto) (1.20-3.40) K/uL [place] # (Auto) (0.11-0.59) K/uL Eos # (Auto) (0.00-0.50) K/uL Baso # (Auto) (0.00-0.20) K/uL Immature Gran # (Auto) (0.01-0.20) K/uL PT (9.0-12.0) Seconds INR (0.9-1.1) APTT (21.0-31.0) Seconds PTT Ratio POC Sodium 131 L (135-144) mmol/L Sodium (136-145) mmol/L POC Potassium 4.2 (3.3-5.0) mmol/L Potassium (3.5-5.1) mmol/L POC Chloride 100 L (101-112) mmol/L Chloride (98-107) mmol/L Carbon Dioxide (21-32) mmol/L POC Total CO2 22 L (24-31) mmol/L Anion Gap (3-11) POC Anion Gap 15.0 L (16-25) mmol/L POC BUN 24 H (7-18) mg/dl BUN (6-23) mg/dl Creatinine (0.6-1.4) mg/dl POC Creatinine 1.1 (0.6-1.3) mg/dl Est Cr Clr Drug Dosing ml/min Est GFR ( Amer) ml/min Est GFR (Non-Af Amer) ml/min BUN/Creatinine Ratio (10-20) Glucose (70-99(Fasting)) mg/dl POC Glucose (other) 136 H (70-99) mg/dl Osmolality 279 L (280-300) mOsm/kg Calcium (8.6-10.3) mg/dl POC Ioniz Calcium Sky 1.25 (1.12-1.32) mmol/l Phosphorus (2.5-4.9) mg/dl Magnesium (1.7-2.4) mg/dl Total Bilirubin (0.2-1.0) mg/dl AST (13-39) U/L ALT (7-52) U/L Alkaline Phosphatase (34-104) U/L Troponin I High Sens (0-20) pg/ml Total Protein (6.0-8.3) gm/dl Albumin (3.4-5.0) gm/dl Globulin (2.5-4.0) gm/dl Albumin/Globulin Ratio (0.9-2) TSH (0.300-4.500) uIu/ml Urine Osmolality 279 L (500-800) mOsm/kg Ur Random Sodium mmol/L Digoxin (0.8-2.0) ng/ml Ethyl Alcohol mg/dL (<10.0) mg/dl 03/11/23 03/11/23 Range/Units 20:06 21:26 WBC (4.8-10.8) K/ul RBC (4.70-6.10) M/uL Hgb (14.0-18.0) g/dl POC Hgb (14.0-18.0) g/dl Hct (42.0-52.0) % POC Hct (42-52) % MCV (80.0-100.0) fL MCH (25.0-34.0) pg MCHC (32.0-36.0) g/dL RDW Std Deviation (36.4-46.3) fL RDW Coeff of Kvng (11.5-14.5) % Plt Count (130-400) K/uL MPV (9.4-12.4) fL Immature Gran % (Auto) % Neut % (Auto) % Lymph % (Auto) % [place] % (Auto) % Eos % (Auto) % Baso % (Auto) % Neut # (Auto) (1.40-6.50) K/uL Lymph # (Auto) (1.20-3.40) K/uL [place] # (Auto) (0.11-0.59) K/uL Eos # (Auto) (0.00-0.50) K/uL Baso # (Auto) (0.00-0.20) K/uL Immature Gran # (Auto) (0.01-0.20) K/uL PT (9.0-12.0) Seconds INR (0.9-1.1) APTT (21.0-31.0) Seconds PTT Ratio POC Sodium (135-144) mmol/L Sodium (136-145) mmol/L POC Potassium (3.3-5.0) mmol/L Potassium (3.5-5.1) mmol/L POC Chloride (101-112) mmol/L Chloride (98-107) mmol/L Carbon Dioxide (21-32) mmol/L POC Total CO2 (24-31) mmol/L Anion Gap (3-11) POC Anion Gap (16-25) mmol/L POC BUN (7-18) mg/dl BUN (6-23) mg/dl Creatinine (0.6-1.4) mg/dl POC Creatinine (0.6-1.3) mg/dl Est Cr Clr Drug Dosing ml/min Est GFR ( Amer) ml/min Est GFR (Non-Af Amer) ml/min BUN/Creatinine Ratio (10-20) Glucose (70-99(Fasting)) mg/dl POC Glucose (other) (70-99) mg/dl Osmolality (280-300) mOsm/kg Calcium (8.6-10.3) mg/dl POC Ioniz Calcium Sky (1.12-1.32) mmol/l Phosphorus (2.5-4.9) mg/dl Magnesium (1.7-2.4) mg/dl Total Bilirubin (0.2-1.0) mg/dl AST (13-39) U/L ALT (7-52) U/L Alkaline Phosphatase (34-104) U/L Troponin I High Sens 90.2 H* D (0-20) pg/ml Total Protein (6.0-8.3) gm/dl Albumin (3.4-5.0) gm/dl Globulin (2.5-4.0) gm/dl Albumin/Globulin Ratio (0.9-2) TSH (0.300-4.500) uIu/ml Urine Osmolality (500-800) mOsm/kg Ur Random Sodium 38 mmol/L Digoxin (0.8-2.0) ng/ml Ethyl Alcohol mg/dL (<10.0) mg/dl Administered Medications Diltiazem HCl 125 mg/ Dextrose 125 mls @ 10 mls/hr IV .[id number] [facility]; Protocol Stop: 04/10/23 21:14 Last Titration: 03/11/23 22:50 Dose: 10 mg/hr, 10 mls/hr Documented By: KIANNA Co-signed By: SHANTE Admin: 03/11/23 21:41 Dose: 5 mg/hr, 5 mls/hr Documented By: KIANNA Co-signed By: JADYN Insulin Aspart (Insulin Aspart Per Unit Charge) 0 units SC Q6 [facility] Stop: 04/10/23 22:44 Last Admin: 03/11/23 23:47 Dose: Not Given Documented By: KIANNA Discontinued Medications Aspirin (Aspirin Chew 324 Mg) 324 mg PO NOW STA Stop: 03/11/23 19:49 Last Admin: 03/11/23 19:57 Dose: 324 mg Documented By: JADYN Digoxin (Digoxin 0.125 Mg Tab) 0.125 mg PO NOW ONE Stop: 03/11/23 19:49 Last Admin: 03/11/23 20:14 Dose: 0.125 mg Documented By: JADYN Diltiazem HCl (Diltiazem Hcl 5 Mg/Ml 5 Ml Vial) 5 mg IV NOW STA; Protocol Stop: 03/11/23 21:10 Last Admin: 03/11/23 21:41 Dose: 5 mg Documented By: KIANNA Co-signed By: JADYN Sodium Chloride (Nss) 1,000 mls @ 999 mls/hr IV .Q1H1M STA Stop: 03/11/23 19:31 Last Infusion: 03/11/23 19:40 Dose: 0 mls/hr Documented By: Admin: 03/11/23 18:55 Dose: 999 mls/hr Documented By: ELIZABETH Sodium Chloride (Nss) 1,000 mls @ 999 mls/hr IV .Q1H1M ONE Stop: 03/11/23 20:00 Last Infusion: 03/11/23 20:00 Dose: 0 mls/hr Documented By: Admin: 03/11/23 19:12 Dose: 999 mls/hr Documented By: JADYN Multivitamins 10 ml/ Thiamine HCl 100 mg/ Folic Acid 1 mg/Sodium Chloride 1,011 .2 mls @ 500 mls/hr IV .Q2H2M ONE Stop: 03/11/23 21:01 Last Infusion: 03/12/23 00:37 Dose: 0 mls/hr Documented By: Admin: 03/11/23 20:54 Dose: 500 mls/hr Documented By: JADYN Thiamine HCl 200 mg/ Sodium (Chloride) 52 mls @ 210 mls/hr IV NOW STA Stop: 03/11/23 19:14 Last Infusion: 03/11/23 20:17 Dose: 0 mls/hr Documented By: Admin: 03/11/23 20:01 Dose: 210 mls/hr Documented By: JADYN Magnesium Sulfate/Dextrose (Magnesium Sulfate / D5w) 1 gm in 100 mls @ 100 mls/hr IV Q1H [facility] Stop: 03/11/23 21:27 Last Infusion: 03/11/23 22:09 Dose: 0 mls/hr Documented By: Admin: 03/11/23 20:54 Dose: 100 mls/hr Documented By: Infusion: 03/11/23 20:42 Dose: 100 mls/hr Documented By: Admin: 03/11/23 19:42 Dose: 100 mls/hr Documented By: JADYN Magnesium Sulfate/Dextrose (Magnesium Sulfate / D5w) 1 gm in 100 mls @ 100 mls/hr IV Q1H [facility] Stop: 03/12/23 00:06 Last Infusion: 03/12/23 00:47 Dose: 0 mls/hr Documented By: Admin: 03/11/23 23:45 Dose: 100 mls/hr Documented By: Infusion: 03/11/23 23:41 Dose: 100 mls/hr Documented By: Admin: 03/11/23 22:41 Dose: 100 mls/hr Documented By: KIANNA Ioversol (Optiray 320 500ml) 105 ml IV ONCE ONE Stop: 03/11/23 20:39 Last Admin: 03/11/23 20:38 Dose: 105 ml Documented By: LILIYA Metoprolol Tartrate (Metoprolol Tartrate 1 Mg/Ml Vial) 5 mg IV NOW STA Stop: 03/11/23 19:01 Last Admin: 03/11/23 19:20 Dose: 5 mg Documented By: JADYN Metoprolol Tartrate (Metoprolol Tartrate 1 Mg/Ml Vial) 5 mg IV NOW STA Stop: 03/11/23 19:28 Last Admin: 03/11/23 19:31 Dose: 5 mg Documented By: JADYN Metoprolol Tartrate (Metoprolol Tartrate 1 Mg/Ml Vial) 5 mg IV NOW STA Stop: 03/11/23 19:47 Last Admin: 03/11/23 19:59 Dose: 5 mg Documented By: JADYN Miscellaneous (Stat Iv Infusion Titration Per Protocol) 1 each N/A NOW STA Stop: 03/11/23 21:10 Last Admin: 03/11/23 23:47 Dose: Not Given Documented By: KIANNA Imaging Data Radiologist's Impression: Chest CTA 03/11/23 19:56 Exam(s): CTA CHEST W/WO Contrast IV Amt: 105 ml optiray 320 EXAM: CT Angiography Chest Without and With Intravenous Contrast CLINICAL HISTORY: Reason for exam: back pain, atrial flutter rvr, trop. TECHNIQUE: Axial computed tomographic angiography images of the chest without and with intravenous contrast. Automated exposure control was utilized for the study. A dose lowering technique was utilized adhering to the principles of ALARA. MIP reconstructed images were created and reviewed. CONTRAST: Patient received 105 ml optiray 320 of IV contrast COMPARISON: No relevant prior studies available. FINDINGS: Pulmonary arteries: No pulmonary embolism. Aorta: Normal caliber aorta. No dissection. Lungs: Unremarkable. Pleural space: Unremarkable. Heart: Unremarkable. Bones/joints: No acute fracture. Soft tissues: Unremarkable. Lymph nodes: Unremarkable. Tubes, lines and devices: Spinal stimulator terminates within the mid thoracic spinal canal. IMPRESSION: 1. No pulmonary embolism. 2. Normal caliber aorta. No dissection. Electronically signed by: Andrzej Garcia MD 03/11/23 21:31 PM Discharge Plan Visit Data Chief Complaint: Tachycardia Stated Complaint: LOW BP, HIGH HEART RATE ED Provider: Maxime Fernandez Discharge Problem: Atrial flutter with rapid ventricular response, Elevated troponin, On apixaban therapy, Alcohol abuse Patient Disposition: Against Medical Advice Discharge Instructions Interventions: ED Discharge Assessment Last Done: 03/12/23 01:03
--- NOTE | 2023-03-11 20:20 | History & Physical Report ---
Date of Service March 11, 2023 Assessment & Plan (1) Atrial flutter with rapid ventricular response: Plan: -Admit to the PCU on tele -Currently stable on diltiazem drip at 5 mg/hr -Patient has a hx of atrial flutter with rapid ventricular response, was recently admitted to [facility] with plans for cardioversion but subsequently spontaneously converted to NSR during his GLADYS -Patient has alcohol abuse, tobacco abuse, and has been non-compliant with his HS CPAP, which could all contribute to his condition -Also noted to have a mag level of 1.6 on arrival -Continue Diltiazem drip overnight -Will make him NPO at midnight for possible Cardioversion tomorrow -Cardiology consult placed -Continue Eliquis and metoprolol -Hold PO diltiazem while on Dilt drip -Eliquis for DVT PPX -HH, DMII diet with free water restriction then NPO at midnight -AM CBC, BMP, Mag, PT/INR (2) Elevated troponin: Plan: -Initial high sen trop elevated at 109, 2 hour repeat is in process -Patient has been without chest discomfort, dizziness and back pain have resolved since his HR has been controlled -Likely due to demand from atrial flutter -Continue Eliquis, will monitor high sen trop q6h overnight -Cardiology consult placed -Repeat ECG for any new chest discomfort -Continue to monitor on tele (3) Alcohol abuse: Plan: -Currently drinking 4 beers daily -Last drink was this afternoon around 3 pm -Negative alcohol level in the ED, no sings of withdrawal at this time -Patient denies a hx of withdrawal symptoms when he stops drinking -Continue banana bag -Will continue home B12 and folic acid -Will start PO thiamine tomorrow -Will start AWSS at risk protocol with IV ativan -Patient states he is interested in continuing to cut back on his drinking, continue to stress the importance of cessation (4) Hypomagnesemia: Plan: -1.6 today -Likely due to chronic alcohol use and poor nutrition -S/P 2gm IV mag sulfate in the ED -Will give another 2gm IV mag sulfate to get mag to 2.0 -Monitor am mag level (5) Hyponatremia: Plan: -Sodium at 129 today -Workup started in the ED is consistent with beer potomania -S/P 2L NSS in the ED for hypotension -Will start free water restriction and will monitor repeat sodium level with next troponin level -Monitor am sodium level (6) Diabetes mellitus, type 2: Plan: -Hold metformin and glimepiride -Monitor BSG q6h overnight while NPO, goal is 110-160 -Start CF of 50 q6h for now, will hold basal insulin for now -Adjust regimen as neded (7) Sleep apnea: Plan: -Patient would like to wait and restart HS CPAP when he is home (8) Hypertension: Plan: -Stable -Hold lisinopril while on Dilt drip to avoid hypotension (9) History of heart artery stent: Plan: -Continue aspirin and plavix (10) Anxiety and depression: Plan: -Continue Duloxetine (11) Bilateral carotid artery stenosis: Plan: -Continue aspirin and plavix Plan The patient was discussed with Dr. Mcdonald at the time of the admission History of Present Illness Chief Complaint: Tachycardia, dizziness Primary Care Provider: Nitish Lam MD Jackson Becker is a 62yo male with PMH of A-fib on Eliquis, a flutter with RVR (w/ cardioversion in 2020), CAD s/p anterolateral TX and stents placed in 2007, PAD s/p femoral artery stents Dec 2022, sleep apnea, HLD, DMII, tobacco abuse, and alcohol abuse who presented to the [facility] ED on 03/11 due to recurrent tachycardia with dizziness. In the ED he was noted to be tachycardic with HR in the 160's and systolic BP in the 70's, however, he was reportedly mentating well. Labs were significant for a leukocytosis of 11, stable chronic anemia, sodium of 129, mag of 1.6, initial high sen trop of 109. ECG showed atrial flutter with HR in the 160's. CTA of the chest was negative for PE with normal caliber aorta and clear lungs. The patient was initially given 2L NSS, 324 mg Aspirin, his afternoon dose of Dig, and 3 doses of 5 mg IV metoprolol with improvement of his HR to the 110's. Prior to admission the patient was also ordered a banana bag, given 2gm IV mag-sulfate, and started on a diltiazem drip. At the time of the exam the patient was lying in bed in no acute distress. His HR is currently in the low 110's while on 5 mg/hr of the diltiazem drip. He states that he has been trying to cut back on his drinking since his last admission. He is currently down to 4 beers daily, from 6+ prior to his last admission. He states that he was relaxing earlier this afternoon when he suddenly developed dizziness and back pain, which are his typical symptoms when he goes into atrial flutter. Due to these symptoms he came to the ED. He confirms that he took his am medications including Eliquis and metoprolol. He also confirms that he has not missed a dose of Eliquis since his last discharge as he setup an alarm on his phone to remind him to take it. He denies current chest pain, SOB, lightheadedness, dizziness, abd pain, nausea, vomiting, diarrhea, dysuria, hematuria, melena, LE swelling, and recent trauma. When asked, he states that he has not experienced withdrawal symptoms in the past when he stops drinking. He did not experience withdrawal symptoms during his last admission. He confirms he is a full code and would want his to make medical decisions for him if he cannot make them himself. Please refer to Dr. Mcdonald's attestation for any changes to the treatment plan Allergies Allergy/AdvReac Type Severity Reaction Status Date / Time latex Allergy Mild Rash Verified 03/11/23 20:06 Penicillins Allergy Mild Rash Verified 03/11/23 20:06 gemfibrozil AdvReac Intermediate BODY ACHES Verified 03/11/23 20:06 [id number] Reductase AdvReac Intermediate body aches Verified 03/11/23 2 0:06 Inhibitor [Sfbiord-Oso-Qtt Reductase Inhibitor] adhesive AdvReac Mild Rash Verified 03/11/23 20:06 NSAIDS (Non-Steroidal AdvReac Unknown TOLD NOT Verified 03/11/23 20:06 Anti-Inflamma TO TAKE - HX STOMACH ULCER Home Medications Medication Instructions Recorded Confirmed Type acetaminophen 650 mg 650 mg PO UD PRN ARTHRITIS PAIN 12/06/20 03/11/23 History tablet,extended release folic acid 400 mcg tablet 0.4 mg PO QAM 04/23/22 03/11/23 History metformin 500 mg tablet,extended 2,000 mg PO QAM #360 tabs 08/13/22 03/11/23 Rx release 24 hr cholecalciferol (vitamin D3) 125 125 mcg PO QAM 08/14/22 03/11/23 History mcg (5,000 unit) capsule cyanocobalamin (vitamin B-12) 1,000 mcg PO QAM 08/26/22 03/11/23 History 1,000 mcg tablet (Vitamin B-12) duloxetine 60 mg capsule,delayed 60 mg PO QAM #90 caps 09/11/22 03/11/23 Rx release gabapentin 400 mg capsule 800 mg PO TID #180 caps 12/16/22 03/11/23 Rx pantoprazole 40 mg tablet,delayed 40 mg PO QAM #90 tabs 01/13/23 03/11/23 Rx release clopidogrel 75 mg tablet (Plavix) 75 mg PO DAILY #30 tabs 01/22/23 03/11/23 Rx aspirin 81 mg chewable tablet 81 mg PO QAM #90 tabs 01/28/23 03/11/23 Rx apixaban 5 mg tablet (Eliquis) 5 mg PO BID #180 tabs 01/29/23 03/11/23 Rx glimepiride 1 mg tablet 1 mg PO QAM #90 tabs 02/03/23 03/11/23 Rx lisinopril 40 mg tablet 40 mg PO QAM #90 tabs 02/03/23 03/11/23 Rx metoprolol tartrate 50 mg tablet 50 mg PO BID #180 tabs 02/03/23 03/11/23 Rx tramadol 50 mg tablet 100 mg PO BID #120 tabs 02/03/23 03/11/23 Rx alirocumab 150 mg/mL subcutaneous 150 mg subcut Q14D #2 mL 02/05/23 03/11/23 Rx pen injector (Praluent Pen) digoxin 125 mcg (0.125 mg) tablet 125 mcg PO HS 02/26/23 03/11/23 History diltiazem HCl 240 mg 240 mg PO HS 02/26/23 03/11/23 History capsule,extended release 24 hr tamsulosin 0.4 mg capsule 0.4 mg PO DAILY #90 caps 03/06/23 03/11/23 Rx Past Med/Surg History Medical History Alcohol abuse Pt admits to >6 beers daily Bilateral carotid artery stenosis Per 11/2021 Carotid Doppler: 50-69% stenosis of right ICA, less than 50% stenosis of left ICA, greater than 50% stenosis of right ECA Antegrade flow in both vertebral arteries CAD in [place] artery s/p LAD stent x2 () Chronic anemia Degenerative disc disease Diabetes mellitus, type 2 Encounter for pre-operative examination GERD (gastroesophageal reflux disease) Well controlled and stable History of anxiety History of cardioversion 01/2021, [facility]; F/U [facility] History of chronic back pain Neurogenic claudication due to lumbar stenosis History of COVID-19 03/18/2022>resolved History of gastric ulcer No recent issues Hx of transesophageal echocardiography (GLADYS) for monitoring 01/2021, [facility] Hyperlipidemia Hypertension Low iron Myocardial infarction Anterolateral TX- 2008, [place], had cardiac cath; f/u asa ovalle Neuropathy Otalgia, right ear Paroxysmal atrial flutter 01/2021- s/p cardoversion- with excessive alcohol intake- felt to be contributing component. No AC. No recurrence per PCP records 07/29/22- - Recurrence in preop area prior to surgery - sent from ACU to ED- admitted to [facility] 07/29/22-07/30/22 Peripheral arterial disease Severe occlusive disease S/p L common femoral endarterectomy with bovine patch and lithotripsy of SFA and Popliteal arteries Sleep apnea "Mild to moderate"-cpap (has not been using for months) Surgical History Fusion of spine CERVICAL, "HAVE 80% OF MOTION" History of anesthesia reaction WITH BACK SURGERY 2004 - DISORIENTED, PULLED CATHETER OUT ([facility]) History of colonoscopy History of endarterectomy Left Femoral Endarterectomy with Bovine Patch History of esophagogastroduodenoscopy (EGD) History of heart artery stent 2006 or 2007, x1 stent, [place]; f/u [facility] History of lumbar surgery X 3 - 2004, 2006, 2019 History of nasal septoplasty History of total knee replacement RT/LEFT (LEFT REVISION) Hx of cataract extraction rt/lt. Hx of transurethral resection of prostate Family History Mother Family history of diabetes mellitus Father Family history of diabetes mellitus Other No family history of adverse response to anesthesia Denies family history of Ovarian cancer Prostate cancer Myocardial infarction Breast cancer Colorectal cancer Social History Smoking Status: Current every day smoker Tobacco Type: Cigarettes Age Started Using Tobacco: 18; Cigarettes Per Day: 10; Second Hand Exposure: Yes ( SMOKES); Do You Dip or Chew Tobacco: No; Hx Alcohol Use: Yes Alcohol type: beer Alcohol type Comment: 6-8 beers Hx Substance Use: No Preferred Language: Finnish Communication Ability: Effective Visual Impairment: No Limitations Professional Security Officer Required: No Beliefs That Will Affect Care: None marital status: Current Living Situation: Spouse Current Living Situation Comment: Lives at home with How many Children do You have: 4 Feels Safe at Home: Yes Childhood Exposure to Second-Hand Smoke: Yes Dental Care, Regularly: Yes Physical Activity Frequency: Does not Exercise Seatbelt Use: always Sunscreen Use: No Assistive Devices: Cane and CPAP Physical Exam Physical Exam: Physical Exam: General: In no acute distress, stated age, morbidly obese, non-toxic appearing HEENT: Normocephalic, atraumatic, no scleral icterus, pupils around round, symmetrical, and reactive to light, moist mucus membranes, trachea midline, no thyromegaly Chest/Pulm: No respiratory distress, symmetrical chest expansion, clear breath sounds throughout Cardiac: irregular rate and rhythm, no murmurs noted Abdomen: Negative for ascites and bruising, normoactive bowel sounds, soft, non-tender to palpation throughout Musculoskeletal: Symmetrical and without signs of acute trauma, upper and lower extremities with full ROM, no atrophy, spasticity, or flaccidity Extremities: Radial, dorsalis pedis, and posterior tibial pulses are intact and symmetrical, no edema noted in the BL LE's Skin: Warm, dry, no rashes , lesions, or scars noted Neuro: Alert and oriented to person, place, month, year, and president, no focal defects, CN II-XII tested and intact, finger to nose test negative, no tremors noted Psych: No acute distress, calm and cooperative during the exam Results & Data Results & Data Vital Signs (Past 12 Hours) Vital Signs Temp Pulse Pulse Resp BP BP Pulse Ox 03/11/23 20:10 127 H 26 H 96 03/11/23 20:10 92/67 L 03/11/23 20:05 128 H 17 96 03/11/23 20:05 88/57 L 03/11/23 20:01 90/70 L 03/11/23 20:01 127 H 16 96 03/11/23 20:00 126 H 17 96 03/11/23 20:00 92/67 L 03/11/23 19:56 128 H 17 96 03/11/23 19:56 119/68 03/11/23 19:55 127 H 22 95 03/11/23 19:53 120 H 20 97 03/11/23 19:53 132/96 03/11/23 20:14 126 H 03/11/23 19:50 127 H 17 97 03/11/23 19:46 143 H 20 96 03/11/23 19:46 114/73 03/11/23 19:45 141 H 16 92 03/11/23 19:59 127 H 119/68 03/11/23 19:41 120 H 22 96 03/11/23 19:41 102/55 L 03/11/23 19:40 121 H 19 95 03/11/23 19:35 120 H 20 93 03/11/23 19:35 104/64 03/11/23 19:34 120 H 20 94 03/11/23 19:30 128 H 18 96 03/11/23 19:30 104/71 03/11/23 19:25 137 H 20 98 03/11/23 19:25 111/73 03/11/23 19:20 153 H 20 98 03/11/23 19:20 118/77 03/11/23 19:31 128 H 104/71 03/11/23 19:15 149 H 20 98 03/11/23 19:15 118/66 03/11/23 19:13 96/73 L 03/11/23 19:13 151 H 22 99 03/11/23 19:10 156 H 20 97 03/11/23 19:07 157 H 20 95 03/11/23 19:07 84/59 L 03/11/23 19:05 158 H 17 03/11/23 19:05 83/63 L 03/11/23 19:00 157 H 18 03/11/23 19:00 88/66 L 03/11/23 18:56 157 H 22 100 03/11/23 18:56 102/72 03/11/23 18:55 159 H 20 03/11/23 18:51 157 H 22 03/11/23 18:51 95/68 L 03/11/23 19:20 150 H 118/66 03/11/23 19:09 03/11/23 19:07 157 H 18 84/59 L 95 03/11/23 18:57 158 H 22 102/72 03/11/23 18:53 157 H 22 95/68 L 97 03/11/23 18:30 36.7 C 161 H 22 76/46 L 97 O2 Del Method 03/11/23 20:10 03/11/23 20:10 03/11/23 20:05 03/11/23 20:05 03/11/23 20:01 03/11/23 20:01 03/11/23 20:00 Room Air 03/11/23 20:00 03/11/23 19:56 03/11/23 19:56 03/11/23 19:55 03/11/23 19:53 03/11/23 19:53 03/11/23 20:14 03/11/23 19:50 03/11/23 19:46 03/11/23 19:46 03/11/23 19:45 03/11/23 19:59 03/11/23 19:41 Room Air 03/11/23 19:41 03/11/23 19:40 03/11/23 19:35 03/11/23 19:35 03/11/23 19:34 03/11/23 19:30 03/11/23 19:30 03/11/23 19:25 Room Air 03/11/23 19:25 03/11/23 19:20 03/11/23 19:20 03/11/23 19:31 03/11/23 19:15 03/11/23 19:15 03/11/23 19:13 03/11/23 19:13 03/11/23 19:10 03/11/23 19:07 03/11/23 19:07 03/11/23 19:05 03/11/23 19:05 03/11/23 19:00 03/11/23 19:00 03/11/23 18:56 03/11/23 18:56 03/11/23 18:55 03/11/23 18:51 03/11/23 18:51 03/11/23 19:20 03/11/23 19:09 Room Air 03/11/23 19:07 Room Air 03/11/23 18:57 03/11/23 18:53 Room Air 03/11/23 18:30 Room Air Laboratory Results Abnormal lab results 03/11/23 03/11/23 03/11/23 Range/Units 18:47 18:47 18:47 WBC 11.29 H (4.8-10.8) K/ul RBC 2.75 L (4.70-6.10) M/uL Hgb 9.6 L (14.0-18.0) g/dl POC Hgb (14.0-18.0) g/dl Hct 29.4 L (42.0-52.0) % POC Hct (42-52) % MCV 106.9 H (80.0-100.0) fL MCH 34.9 H (25.0-34.0) pg RDW Std Deviation 59.8 H (36.4-46.3) fL RDW Coeff of Kvng 15.3 H (11.5-14.5) % Neut # (Auto) 8.26 H (1.40-6.50) K/uL [place] # (Auto) 0.89 H (0.11-0.59) K/uL Immature Gran # (Auto) 0.24 H (0.01-0.20) K/uL POC Sodium (135-144) mmol/L Sodium 129 L (136-145) mmol/L POC Chloride (101-112) mmol/L POC Total CO2 (24-31) mmol/L POC Anion Gap (16-25) mmol/L POC BUN (7-18) mg/dl BUN 26 H (6-23) mg/dl BUN/Creatinine Ratio 21.7 H (10-20) Glucose 150 H (70-99(Fasting)) mg/dl POC Glucose (other) (70-99) mg/dl Osmolality 279 L (280-300) mOsm/kg Magnesium 1.6 L (1.7-2.4) mg/dl Troponin I High Sens 109.5 H* (0-20) pg/ml Urine Osmolality (500-800) mOsm/kg 03/11/23 03/11/23 Range/Units 19:03 20:06 WBC (4.8-10.8) K/ul RBC (4.70-6.10) M/uL Hgb (14.0-18.0) g/dl POC Hgb 9.5 L (14.0-18.0) g/dl Hct (42.0-52.0) % POC Hct 28 L (42-52) % MCV (80.0-100.0) fL MCH (25.0-34.0) pg RDW Std Deviation (36.4-46.3) fL RDW Coeff of Kvng (11.5-14.5) % Neut # (Auto) (1.40-6.50) K/uL [place] # (Auto) (0.11-0.59) K/uL Immature Gran # (Auto) (0.01-0.20) K/uL POC Sodium 131 L (135-144) mmol/L Sodium (136-145) mmol/L POC Chloride 100 L (101-112) mmol/L POC Total CO2 22 L (24-31) mmol/L POC Anion Gap 15.0 L (16-25) mmol/L POC BUN 24 H (7-18) mg/dl BUN (6-23) mg/dl BUN/Creatinine Ratio (10-20) Glucose (70-99(Fasting)) mg/dl POC Glucose (other) 136 H (70-99) mg/dl Osmolality (280-300) mOsm/kg Magnesium (1.7-2.4) mg/dl Troponin I High Sens (0-20) pg/ml Urine Osmolality 279 L (500-800) mOsm/kg Diagnostic Findings Chest CTA 03/11/23 19:56 Exam(s): CTA CHEST W/WO Contrast IV Amt: 105 ml optiray 320 EXAM: CT Angiography Chest Without and With Intravenous Contrast CLINICAL HISTORY: Reason for exam: back pain, atrial flutter rvr, trop. TECHNIQUE: Axial computed tomographic angiography images of the chest without and with intravenous contrast. Automated exposure control was utilized for the study. A dose lowering technique was utilized adhering to the principles of ALARA. MIP reconstructed images were created and reviewed. CONTRAST: Patient received 105 ml optiray 320 of IV contrast COMPARISON: No relevant prior studies available. FINDINGS: Pulmonary arteries: No pulmonary embolism. Aorta: Normal caliber aorta. No dissection. Lungs: Unremarkable. Pleural space: Unremarkable. Heart: Unremarkable. Bones/joints: No acute fracture. Soft tissues: Unremarkable. Lymph nodes: Unremarkable. Tubes, lines and devices: Spinal stimulator terminates within the mid thoracic spinal canal. IMPRESSION: 1. No pulmonary embolism. 2. Normal caliber aorta. No dissection. Electronically signed by: Andrzej Garcia MD 03/11/23 21:31 PM ECG Additional Comments: Atrial flutter with variable A-V block Abnormal QRS-T angle, consider primary T wave abnormality Abnormal ECG When compared with ECG of 11-MAR-2023 18:43, (u nconfirmed) Atrial flutter has replaced Sinus rhythm Criteria for Anterior infarct are no longer Present ST no longer depressed in Inferior leads ST no longer depressed in Lateral leads T wave inversion no longer evident in Lateral leads Code Status & VTE Plan Code Status full code VTE Prophylaxis Plan VTE Prophylaxis will be ordered: Yes Supervising Physician Co-Signing Physician Notes Patient seen and examined, chart reviewed, case discussed with SAÚL Kelly and I agree with the assessment and plan as documented above. In brief, patient is a 62yo male with history of atrial fibrillation/flutter on Eliquis anticoagulation, CAD s/p anterolateral TX, PAD, DM presenting with dizziness. Patient with initial heart rate in the 160's with blood pressure in the 70's. He was administered IVF with improvement in BP. EKG confirmed presence of atrial flutter. Patient was adminstered banana bag, Mg sulfate, Metoprolol and Diltiazem drip in the ER. Presently with improved heart rate. Blood pressure stable He has no additional complaints at this time. Feels improved Follows with Cardiology - Dr. Dhaliwal Daily EtOH intake which he is cutting back on On exam he is resting comfortably, NAD Skin - intact, no rash HEENT - MMM, Neck supple, no JVD Heart - +S1/S2, fairly regular, tachycardic, atrial flutter noted on monitor Lungs - CTA Abd - soft, NT/ND Ext - warm, well perfused, 2+ pulses Labs and images reviewed. Hgb low at 8.1 Hct 24.8 Trop 90 --> 110.6 Assessment/Plan - 62yo male with atrial flutter with RVR, improved on Diltiazem drip -Admit to PCU -Continue Diltiazem drip -Continue Eliquis anticoagulation - patient reports compliance, no missed doses -Continue home metoprolol -NPO after midnight -Cardiology consultation - possible cardioversion in AM -Consider additional digoxin dosing - subtherapeutic at 0.4 Hyponatremia - Na 129 --> 134 -Free water restriction -Monitor Na Remainder of plan as above PG Care Time/CCT Total # of Minutes Spent Total Time Spent with Patient: Total time spent is greater than 50% in coordination of care (as documented) at patient's floor/unit and/or counseling patient: C[place] [address] INT INP/OBS CARE 3/75MIN Patient Type Established Medical Decision Making High Complexity Diagnoses Atrial flutter with rapid ventricular response I48.92 Elevated troponin R77.8 Alcohol abuse F10.10 Hypomagnesemia E83.42 Hyponatremia E87.1 Diabetes mellitus, type 2 E11.9 Sleep apnea G47.30 Hypertension I10 Hypertension type: primary hypertension History of heart artery stent Z95.5 Anxiety and depression F41.9; F32.9 Bilateral carotid artery stenosis I65.23 (8) Hypertension Hypertension type: primary hypertension Qualified Code(s): I10 - Essential (primary) hypertension
[2023-03-11] MEDS ORDERED: OPTIRAY 320 500ml IV ONE (20:38)
[2023-03-11] MEDS ORDERED: dilTIAZem HCl 5 MG/ML 5 ML VIAL IV STA (21:09)
[2023-03-11] MEDS ORDERED: STAT IV Infusion **Titration per Protocol STA (21:09)
--- NOTE | 2023-03-11 21:32 | CT Scan Report ---
Exam(s): CTA CHEST W/WO Contrast IV Amt: 105 ml optiray 320 EXAM: CT Angiography Chest Without and With Intravenous Contrast CLINICAL HISTORY: Reason for exam: back pain, atrial flutter rvr, trop. TECHNIQUE: Axial computed tomographic angiography images of the chest without and with intravenous contrast. Automated exposure control was utilized for the study. A dose lowering technique was utilized adhering to the principles of ALARA. MIP reconstructed images were created and reviewed. CONTRAST: Patient received 105 ml optiray 320 of IV contrast COMPARISON: No relevant prior studies available. FINDINGS: Pulmonary arteries: No pulmonary embolism. Aorta: Normal caliber aorta. No dissection. Lungs: Unremarkable. Pleural space: Unremarkable. Heart: Unremarkable. Bones/joints: No acute fracture. Soft tissues: Unremarkable. Lymph nodes: Unremarkable. Tubes, lines and devices: Spinal stimulator terminates within the mid thoracic spinal canal. IMPRESSION: 1. No pulmonary embolism. 2. Normal caliber aorta. No dissection. Electronically signed by: Andrzej Garcia MD 03/11/23 21:31 PM
[2023-03-11] MEDS: dilTIAZem HCL 125 MG in DEXTROSE 5% 100 ML IV SCH (21:41)
[2023-03-11] MEDS ORDERED: LORazepam 2 MG/1 ML VIAL IV PRN (22:11)
[2023-03-11] MEDS ORDERED: GLUCOSE 40% GEL 15 GM TUBE PO PRN (22:23)
[2023-03-11] MEDS ORDERED: GLUCAGON FOR INJ 1 MG VIAL SQ PRN (22:23)
[2023-03-11] MEDS ORDERED: GLUCOSE 10 TAB/TUBE PO PRN (22:23)
[2023-03-11] MEDS ORDERED: CARBOHYDRATES FOR HYPOGLYCEMIA PO PRN (22:23)
[2023-03-11] MEDS ORDERED: DEXTROSE 50% 50 ML SYRINGE IV PRN (22:23)
[2023-03-11] MEDS: INSULIN ASPART PER UNIT CHARGE SC SCH (23:47)
[2023-03-12] MEDS ORDERED: ACETAMINOPHEN 325 MG TAB PO PRN (01:03)
[2023-03-12 02:34] LABS: Basophils # (auto) 0.06 K/uL (0.00-0.20); Basophils % (auto) 0.8 %; Eosinophils # (auto) 0.16 K/uL (0.00-0.50); Eosinophils % (auto) 2.2 %; Hematocrit (blood only) 24.8 % (42.0-52.0); Hemoglobin 8.1 g/dl (14.0-18.0); Immature Granulocytes # (auto) 0.15 K/uL (0.01-0.20); Immature Granulocytes % (auto) 2.1 %; Lymphocytes # (auto) 1.55 K/uL (1.20-3.40); Lymphocytes % (auto) 21.6 %; Mean Corpuscular Hemoglobin 35.1 pg (25.0-34.0); Mean Corpuscular Hgb Conc 32.7 g/dL (32.0-36.0); Mean Corpuscular Volume 107.4 fL (80.0-100.0); Mean Platelet Volume 11.2 fL (9.4-12.4); Monocytes # (auto) 0.62 K/uL (0.11-0.59); Monocytes % (auto) 8.6 %; Neutrophils # (auto) 4.63 K/uL (1.40-6.50); Neutrophils % (auto) 64.7 %; Platelet Count 226 K/uL (130-400); RDW Coefficient of Variation 15.4 % (11.5-14.5); RDW Standard Deviation 60.4 fL (36.4-46.3); Red Blood Count 2.31 M/uL (4.70-6.10); White Blood Count 7.17 K/ul (4.8-10.8)
[2023-03-12 02:56] LABS: BUN Creatinine Ratio 25.9 (10-20); Creatinine Clr Calc Pharmacy 114.4 ml/min; Est GFR (African American) 108.9 ml/min; Est GFR (Non-African American) 93.9 ml/min; Magnesium 2.5 mg/dl (1.7-2.4); Potassium 4.6 mmol/L (3.5-5.1)
[2023-03-12 03:00] LABS: INR 0.9 (0.9-1.1); Prothrombin Time 10.3 Seconds (9.0-12.0)
[2023-03-12] MEDS: INSULIN ASPART PER UNIT CHARGE SC SCH ×3 (06:08→17:11)
--- NOTE | 2023-03-12 07:37 | XRay Report ---
XR chest 1V portable CLINICAL HISTORY: Dysrhythmia. COMPARISON STUDY: Chest CT August 14, 2022. Chest radiograph February 26, 2023. FINDINGS: Postoperative findings within the spine are incidentally noted. There is no pneumothorax or pleural effusion. There is cardiomegaly without evidence for pulmonary edema. Intracanalicular devic e is incidentally noted. There is no consolidation. IMPRESSION: No acute cardiopulmonary findings. Cardiomegaly. ACT 112: Negative or not required by law. Electronically signed by: Tobin Acuna M.D. 03/12/2023 7:36 AM
[2023-03-12] MEDS: APIXABAN 5 MG TABLET PO SCH ×2 (09:00→20:05)
[2023-03-12] MEDS: SODIUM CHLORIDE 0.9% 1,000 ML IV SCH ×2 (09:00→21:26)
[2023-03-12] MEDS: ASPIRIN 81 MG ECTAB PO SCH (09:01)
[2023-03-12] MEDS: CLOPIDOGREL BISULFATE 75 MG TAB PO SCH (09:01)
[2023-03-12] MEDS: CYANOCOBALAMIN (B-12) 500 MCG TABLET PO SCH (09:02)
[2023-03-12] MEDS: DULoxetine HCL 60 MG CAP PO SCH (09:02)
[2023-03-12] MEDS: GABAPENTIN 400 MG CAP PO SCH ×3 (09:03→20:05)
[2023-03-12] MEDS: METOPROLOL TARTRATE 50 MG TAB PO SCH ×2 (09:03→20:06)
[2023-03-12] MEDS: FOLIC ACID 400 MCG TAB PO SCH (09:03)
[2023-03-12] MEDS: PANTOprazole 40 MG TAB PO SCH (09:04)
[2023-03-12] MEDS: TAMSULOSIN HCL 0.4 MG CAP PO SCH (09:04)
[2023-03-12] MEDS: THIAMINE HCL 100 MG TAB PO SCH (09:04)
--- NOTE | 2023-03-12 09:06 | Cardiology Consultation ---
Date of Consultation March 12, 2023 Assessment & Plan (1) Atrial flutter with rapid ventricular response: Mr. Becker is a 62-year-old male with a history of CAD s/p Anterolateral [place] s/p Mid LAD PCI x 2, Paroxysmal Atrial Flutter s/p Cardioversion, PAD s/p L Common Femoral Endarterectomy with Bovine Patch, SFA and Popliteal Arteries, Carotid Artery Stenosis, Hypertension, Dyslipidemia, Type 2 Diabetes Mellitus, Gastric Ulcer, Anemia, Lumbar Spinal Stenosis, Sleep Apnea (refused CPAP), Alcohol Abuse, and Statin Intolerance secondary to severe myalgias who presented to [facility] ER yesterday with Atrial Flutter with RVR, Hypotension, Hypomagnesemia, Hyponatremia, and an Elevated High Sensitivity Troponin I. He complained of ongoing lightheadedness and upper back pain that had its onset around 1230 yesterday. He denied having any associated chest pain or shortness of breath. He has been having intermittent indigestion over the past couple of days and had a single episode of nausea and vomiting over the weekend that resolved. Patient was previously admitted to this facility from 02/26/23 thro [facility] 03/01/23 for atrial fibrillation with RVR where electrical cardioversion was planned following a GLADYS -- however the patient spontaneously cardioverted back to a NSR during the GLADYS -- so a Cardioversion was not required. Patient has been taking his medications as prescribed and has not missed any doses. On arrival to the ER the patient was found to be tachycardic with a HR in the 160s and hypotensive with BP in the 70s/40s in triage. Patient was taken to critical care bay where he was evaluated further. Blood pressure was somewhat better upon arriving in the critical care bay with initiation of IV fluid hydration. EKG demonstrated atrial flutter with RVR at [address] abnormalities without overt ST elevation. Patient was initially treated with 5 mg of IV Lopressor which improved his heart rate to the 130s and improvement in blood pressure initially although BP was fluctuating but it responsive to additional fluids. He was additionally given 5 mg of IV Lopressor x 2 for total of 15 mg with heart rate still in the 110s-120s and his blood pressure was more stable. Patient received total of 2 L normal saline and had been given additional liter maintenance with banana bag. Repeat EKG was improved with atrial flutter with variable AV block at [address] abnormality without overt ST elevation or depression. CXR 03/11/23 showed cardiomegaly. WBC 11.2. Hgb was 9.6 g/dL on admission and is 8.1 g/dL this morning -- may have a dilutional component. Platelets within normal limits. Serum sodium is low. LFTs are normal. Magnesium 1.6 mg/dL so IV Magnesium was given. High-sensitivity troponin initially 109 pg/mL with nonspecific with delta 2.5-hour high-sensitivity troponin downtrending to 90 pg/mL. Medical alcohol was undetectable. Given the patient's tachycardia and complaint of back pain CT of the Chest with dissection protocol was performed and was negative for PE or acute aortic pathology. Upon return from CT patient's heart rate still tachycardic in the 110s and so an IV bolus of Diltiazem 5 mg was given and Diltiazem drip was started. Patient was also given a dose of Aspirin 325 mg as well as his usual home dose of Digoxin. Serum Digoxin level was subtherapeutic on admission. He is currently maintained on Eliquis 5 mg b.i.d. -- he denies missing any doses of this medication in the last 4 weeks. This does not appear to be typical right sided atrial flutter. Catheter based ablation will likely be the most beneficial in the long run however this would need to be done at [facility] -- however the best strategy right now would be an elective electrical cardioversion. Recommend the followin. Continue IV Diltiazem drip for the time being. 2. Continue Metoprolol Tartrate 50 mg b.i.d.. 3. As his Digoxin Level is subtherapeutic -- Give IV Digoxin 500 mcg now followed by 250 mcg in 6 hours. 4. Resume oral Digoxin 125 mcg daily as of 03/13/23. 5. Continue Eliquis 5 mg b.i.d. without interruption. 6. Hypomagnesemia has been corrected, serum Mg level today is 2.5 mg/dL. 7. Arrange for Cardioversion -- if not this afternoon, tomorrow morning. (2) Elevated troponin: He has a known history of CAD s/p Mid LAD stents x 2 and presented in rapid atrial flutter. -- HS Troponin I levels are 109.5, 90.2, and 110.6 pg/mL. -- These are not trending in a fashion consistent with myocardial injury. -- Continue usual cardiac regimen including beta felicity, aspirin, ACEI, and PCSK9 inhibitor. (3) CAD in [place] artery: CAD s/p Anterolateral [place] s/p Mid LAD Drug Eluting Stents. -- Continue usual cardiac regimen including beta felicity, aspirin, ACEI, and PCSK9 inhibitor. (4) Hypertension: He was markedly hypotensive on presentation but his BP has improved with IVF's and improved heart rate control. -- Continue IVF's as needed. (5) Hyperlipidemia: -- Continue Praluent 150 mg SQ injection every 2 weeks. (6) Statin intolerance: -- Avoid statins due to severe myalgias. -- Continue PCSK9 inhibitor. We will continue to closely follow this patient while hospitalized and he already has a follow-up appointment scheduled with [facility] Cardiology. We will refer him to the EP Dept at [facility] for atrial flutter ablation at his follow-up appointment. History of Present Illness Attending Physician: Aleks Billy MD History of Present Illness Mr. Becker is a 62-year-old male with a history of CAD s/p Anterolateral [place] s/p Mid LAD PCI x 2, Paroxysmal Atrial Flutter s/p Cardioversion, PAD s/p L Common Femoral Endarterectomy with Bovine Patch, SFA and Popliteal Arteries, Carotid Artery Stenosis, Hypertension, Dyslipidemia, Type 2 Diabetes Mellitus, Gastric Ulcer, Anemia, Lumbar Spinal Stenosis, Sleep Apnea (refused CPAP), Alcohol Abuse, and Statin Intolerance secondary to severe myalgias who presented to [facility] ER yesterday for evaluation of ongoing lightheadedness and upper back pain that he noticed around 1230 yesterday. He denied having any chest pain or shortness of breath. He has been having intermittent indigestion over the past couple of days and had a single episode of nausea and vomiting over the weekend that resolved. Patient was previously admitted to this facility from 02/26/23 through 03/01/23 for atrial fibrillation with RVR where electrical cardioversion was planned following a GLADYS -- however the patient spontaneously cardioverted back to a NSR during the GLADYS -- so a Cardioversion was not required. Patient has been taking his medications as prescribed and has not missed any doses. On arrival to the ER the patient was found to be tachycardic with a HR in the 160s and hypotensive with BP in the 70s/40s in triage. Patient was taken to critical care bay where he was evaluated further. Blood pressure was somewhat better upon arriving in the critical care bay with initiation of IV fluid hydration. EKG demonstrated atrial flutter with RVR at [address] abnormalities without overt ST elevation. Patient was initially treated with 5 mg of IV Lopressor which improved his heart rate to the 130s and improvement in blood pressure initially although BP was fluctuating but it responsive to additional fluids. He was additionally given 5 mg of IV Lopressor x 2 for total of 15 mg with heart rate still in the 110s-120s and his blood pressure was more stable. Patient received total of 2 L normal saline and had been given additional liter maintenance with banana bag. Repeat EKG was improved with atrial flutter with variable AV block at [address] abnormality without overt ST elevation or depression. CXR 03/11/23 showed cardiomegaly. WBC 11.2. Hgb was 9.6 g/dL on admission and is 8.1 g/dL this morning. Platelets within normal limits. Serum sodium is low. LFTs are normal. Magnesium 1.6 mg/dL so IV Magnesium was given. High- sensitivity troponin initially 109 pg/mL with nonspecific with delta 2.5-hour high-sensitivity troponin downtrending to 90 pg/mL. Medical alcohol was undetec table. Given the patient's tachycardia and complaint of back pain CT of the Chest with dissection protocol was performed and was negative for PE or acute aortic pathology. Upon return from CT patient's heart rate still tachycardic in the 110s and so an IV bolus of Diltiazem 5 mg was given and Diltiazem drip was started. Patient was also given a dose of Aspirin 325 mg as well as his usual home dose of Digoxin. Serum Digoxin level was subtherapeutic. Historically, the patient was not on chronic anticoagulation therapy due to his history of gastric ulcers, iron deficiency anemia, and chronic alcohol abuse. However he is currently maintained on Eliquis 5 mg b.i.d. -- he denies missing any doses of this medication in the last 4 weeks. He has had the following studies/procedures: 1. Cardiac Catheterization June 2007: Presented with acute anterolateral KY. Mid LAD 100% and underwent PCI with 3 x 15 [employer] Project [employer] BMS and 2.5 x 18 mm Micro [employer] Project [employer]. Luminal irregularities within LCx and Ramus. Mid RCA 30% stenosis. 2. Echo 10/12/2020: Normal LV size, wall motion, systolic function. EF 60%- 65%. Mild LVH. No significant valvular abnormalities. 3. Carotid Ultrasound 10/06/2020 with 50%-69% bilateral internal carotid artery stenoses. 4.GLADYS Guided Cardioversion 02/19/21: No thrombus noted. Successful conversion of atrial flutter to sinus rhythm. 5. Aortic and LLE Angiography 04/10/2022: No significant stenoses in the aorta or iliac arteries. Severe left common femoral arterial stenosis. Occlusion of left popliteal artery. Reconstitution distal vessels via collateral flow. Allergies Allergy/AdvReac Type Severity Reaction Status Date / Time latex Allergy Mild Rash Verified 03/11/23 20:06 Penicillins Allergy Mild Rash Verified 03/11/23 20:06 gemfibrozil AdvReac Intermediate BODY ACHES Verified 03/11/23 20:06 [id number]-[id number] Reductase AdvReac Intermediate body aches Verified 03/11/23 20:06 Inhibitor [Ltvonrz-Rpf-Amx Reductase Inhibitor] adhesive AdvReac Mild Rash Verified 03/11/23 20:06 NSAIDS (Non-Steroidal AdvReac Unknown TOLD NOT Verified 03/11/23 20:06 Anti-Inflamma TO TAKE - HX STOMACH ULCER Home Medications Medication Instructions Recorded Confirmed Type acetaminophen 650 mg 650 mg PO UD PRN ARTHRITIS PAIN 12/06/20 03/11/23 History tablet,extended release folic acid 400 mcg tablet 0.4 mg PO QAM 04/23/22 03/11/23 History metformin 500 mg tablet,extended 2,000 mg PO QAM #360 tabs 08/13/22 03/11/23 Rx release 24 hr cholecalciferol (vitamin D3) 125 125 mcg PO QAM 08/14/22 03/11/23 History mcg (5,000 unit) capsule cyanocobalamin (vitamin B-12) 1,000 mcg PO QAM 08/26/22 03/11/23 History 1,000 mcg tablet (Vitamin B-12) duloxetine 60 mg capsule,delayed 60 mg PO QAM #90 caps 09/11/22 03/11/23 Rx release gabapentin 400 mg capsule 800 mg PO TID #180 caps 12/16/22 03/11/23 Rx pantoprazole 40 mg tablet,delayed 40 mg PO QAM #90 tabs 01/13/23 03/11/23 Rx release clopidogrel 75 mg tablet (Plavix) 75 mg PO DAILY #30 tabs 01/22/23 03/11/23 Rx aspirin 81 mg chewable tablet 81 mg PO QAM #90 tabs 01/28/23 03/11/23 Rx apixaban 5 mg tablet (Eliquis) 5 mg PO BID #180 tabs 01/29/23 03/11/23 Rx glimepiride 1 mg tablet 1 mg PO QAM #90 tabs 02/03/23 03/11/23 Rx lisinopril 40 mg tablet 40 mg PO QAM #90 tabs 02/03/23 03/11/23 Rx metoprolol tartrate 50 mg tablet 50 mg PO BID #180 tabs 02/03/23 03/11/23 Rx tramadol 50 mg tablet 100 mg PO BID #120 tabs 02/03/23 03/11/23 Rx alirocumab 150 mg/mL subcutaneous 150 mg subcut Q14D #2 mL 02/05/23 03/11/23 Rx pen injector (Praluent Pen) digoxin 125 mcg (0.125 mg) tablet 125 mcg PO HS 02/26/23 03/11/23 History diltiazem HCl 240 mg 240 mg PO HS 02/26/23 03/11/23 History capsule,extended release 24 hr tamsulosin 0.4 mg capsule 0.4 mg PO DAILY #90 caps 03/06/23 03/11/23 Rx Patient History Medical History Alcohol abuse Pt admits to >6 beers daily Bilateral carotid artery stenosis Per 11/2021 Carotid Doppler: 50-69% stenosis of right ICA, less than 50% stenosis of left ICA, greater than 50% stenosis of right ECA Antegrade flow in both vertebral arteries CAD in [place] artery s/p LAD stent x2 () Chronic anemia Degenerative disc disease Diabetes mellitus, type 2 Encounter for pre-operative examination GERD (gastroesophageal reflux disease) Well controlled and stable History of anxiety History of cardioversion 01/2021, [facility]; F/U [facility] History of chronic back pain Neurogenic claudication due to lumbar stenosis History of COVID-19 03/18/2022>resolved History of gastric ulcer No recent issues Hx of transesophageal echocardiography (GLADYS) for monitoring 01/2021, [facility] Hyperlipidemia Hypertension Low iron Myocardial infarction Anterolateral [place]- 2008, [place], had cardiac cath; f/u asa oval[facility] Neuropathy Otalgia, right ear Paroxysmal atrial flutter 01/2021- s/p cardoversion- with excessive alcohol intake- felt to be contr ibuting component. No AC. No recurrence per PCP records 07/29/22- - Recurrence in preop area prior to surgery - sent from ACU to ED- admitted to [facility] 07/29/22-07/30/22 Peripheral arterial disease Severe occlusive disease S/p L common femoral endarterectomy with bovine patch and lithotripsy of SFA and Popliteal arteries Sleep apnea "Mild to moderate"-cpap (has not been using for months) Surgical History Fusion of spine CERVICAL, "HAVE 80% OF MOTION" History of anesthesia reaction WITH BACK SURGERY 2004 - DISORIENTED, PULLED CATHETER OUT ([facility]) History of colonoscopy History of endarterectomy Left Femoral Endarterectomy with Bovine Patch History of esophagogastroduodenoscopy (EGD) History of heart artery stent 2006 or 2007, x1 stent, [place]; f/u [facility] History of lumbar surgery X 3 - 2004, 2006, 2019 History of nasal septoplasty History of total knee replacement RT/LEFT (LEFT REVISION) Hx of cataract extraction rt/lt. Hx of transurethral resection of prostate Family History Mother Family history of diabetes mellitus Father Family history of diabetes mellitus Other No family history of adverse response to anesthesia Denies family history of Ovarian cancer Prostate cancer Myocardial infarction Breast cancer Colorectal cancer Social History Smoking Status: Current every day smoker Tobacco Type: Cigarettes Age Started Using Tobacco: 18; Cigarettes Per Day: 10; Second Hand Exposure: Yes ( SMOKES); Do You Dip or Chew Tobacco: No; Hx Alcohol Use: Yes Alcohol type: beer Alcohol type Comment: 6-8 beers Hx Substance Use: No Preferred Language: [place] Communication Ability: Effective Visual Impairment: No Limitations Technical Producer Required: No Beliefs That Will Affect Care: None marital status: Current Living Situation: Spouse Current Living Situation Comment: Lives at home with How many Children do You have: 4 Feels Safe at Home: Yes Childhood Exposure to Second-Hand Smoke: Yes Dental Care, Regularly: Yes Physical Activity Frequency: Does not Exercise Seatbelt Use: always Sunscreen Use: No Assistive Devices: Cane and CPAP Physical Exam Physical Exam: BP is 150/70, HR 80's and 90's on ekg monitor. GENERAL: Patient in no acute distress. HEENT: Head is atraumatic, normocephalic. EOM's intact. Facies symmetric. No perioral cyanosis. NECK: No JVD. JVP is not elevated. Carotid upstrokes are + 2 bilaterally without bruits. CHEST/LUNGS: Clear to auscultation throughout all lung burgos. No wheezes, rales, or crackles. CVS: S1 and S2 are regular without murmurs, gallops, or rubs. PMI is nonpalpable. No lifts, heaves, or thrills. No abdominal aortic or renal bruits. ABDOMINAL EXAM: Bowel sounds are present. No masses, organomegaly, or tenderness. EXTREMITIES: No clubbing or cyanosis. No leg edema. Intact radial pulses bilaterally. NEUROLOGIC EXAM: Patient is awake, alert, and oriented. Pleasant and cooperati ve. Answers questions appropriately. Speech is clear. EKG 03/12/23: -- Atrial flutter with variable AV block, noon-specific T wave abnormality. -- Abnormal EKG. Results & Data Vital Signs (Past 12 Hours) Vital Signs Temp Pulse Pulse Pulse Resp BP BP 03/12/23 08:46 36.6 C 116 H 18 131/85 03/12/23 08:00 93 H 18 151/84 H 03/12/23 07:10 126 H 03/12/23 05:00 104 H 23 137/72 03/11/23 22:55 119 H 03/12/23 03:00 91 H 19 137/82 03/12/23 01:03 03/12/23 01:00 101 H 18 136/83 03/12/23 01:00 03/12/23 00:00 100 H 15 120/76 10/17/23 23:00 111 H 03/11/23 22:43 137 H 24 134/75 03/11/23 21:39 118 H 03/11/23 21:39 117 H 03/11/23 21:39 117 H 03/11/23 21:15 118 H 17 03/11/23 21:15 117/78 03/11/23 21:01 146/75 H 03/11/23 21:01 118 H 20 03/11/23 21:00 126 H 18 Pulse Ox O2 Del Method O2 Del Method 03/12/23 08:46 97 Room Air 03/12/23 08:00 96 Room Air 03/12/23 07:10 03/12/23 05:00 95 Room Air 03/11/23 22:55 03/12/23 03:00 97 Room Air 03/12/23 01:03 Room Air 03/12/23 01:00 95 Room Air 03/12/23 01:00 Room Air 03/12/23 00:00 95 03/11/23 23:00 03/11/23 22:43 97 03/11/23 21:39 03/11/23 21:39 03/11/23 21:39 03/11/23 21:15 96 Room Air 03/11/23 21:15 03/11/23 21:01 03/11/23 21:01 96 03/11/23 21:00 95 Laboratory Results Laboratory Results - last 24 hr 03/11/23 03/11/23 03/11/23 18:47 18:47 18:47 WBC 11.29 H RBC 2.75 L Hgb 9.6 L POC Hgb Hct 29.4 L POC Hct MCV 106.9 H MCH 34.9 H MCHC 32.7 RDW Std Deviation 59.8 H RDW Coeff of Kvng 15.3 H Plt Count 243 MPV 11.3 Immature Gran % (Auto) 2.1 Neut % (Auto) 73.2 Lymph % (Auto) 15.2 [place] % (Auto) 7.9 Eos % (Auto) 0.8 Baso % (Auto) 0.8 Neut # (Auto) 8.26 H Lymph # (Auto) 1.72 [place] # (Auto) 0.89 H Eos # (Auto) 0.09 Baso # (Auto) 0.09 Immature Gran # (Auto) 0.24 H PT 10.7 INR 1.0 APTT 26.6 PTT Ratio 0.9 POC Sodium Sodium 129 L POC Potassium Potassium 4.2 POC Chloride Chloride 99 Carbon Dioxide 21 POC Total CO2 Anion Gap 9 POC Anion Gap POC BUN BUN 26 H Creatinine 1.20 POC Creatinine Est Cr Clr Drug Dosing 80.0 Est GFR ( Amer) 73.6 Est GFR (Non-Af Amer) 63.5 BUN/Creatinine Ratio 21.7 H Glucose 150 H POC Glucose POC Glucose (other) Osmolality Calcium 9.9 POC Ioniz Calcium Sky Phosphorus 3.6 Magnesium 1.6 L Total Bilirubin 0.2 AST 13 ALT 16 Alkaline Phosphatase 65 Troponin I High Sens 109.5 H* Total Protein 7.0 Albumin 4.0 Globulin 3.0 Albumin/Globulin Ratio 1.3 TSH 1.330 Urine Osmolality Ur Random Sodium Digoxin Ethyl Alcohol mg/dL 03/11/23 03/11/23 03/11/23 18:47 18:47 18:47 WBC RBC Hgb POC Hgb Hct POC Hct MCV MCH MCHC RDW Std Deviation RDW Coeff of Kvng Plt Count MPV Immature Gran % (Auto) Neut % (Auto) Lymph % (Auto) [place] % (Auto) Eos % (Auto) Baso % (Auto) Neut # (Auto) Lymph # (Auto) [place] # (Auto) Eos # (Auto) Baso # (Auto) Immature Gran # (Auto) PT INR APTT PTT Ratio POC Sodium Sodium POC Potassium Potassium POC Chloride Chloride Carbon Dioxide POC Total CO2 Anion Gap POC Anion Gap POC BUN BUN Creatinine POC Creatinine Est Cr Clr Drug Dosing Est GFR ( Amer) Est GFR (Non-Af Amer) BUN/Creatinine Ratio Glucose POC Glucose POC Glucose (other) Osmolality Calcium POC Ioniz Calcium Sky Phosphorus Cancelled Magnesium Total Bilirubin AST ALT Alkaline Phosphatase Troponin I High Sens Total Protein Albumin Globulin Albumin/Globulin Ratio TSH Urine Osmolality Ur Random Sodium Digoxin 0.4 L Ethyl Alcohol mg/dL < 10.0 03/11/23 03/11/23 03/11/23 18:47 19:03 20:06 WBC RBC Hgb POC Hgb 9.5 L Hct POC Hct 28 L MCV MCH MCHC RDW Std Deviation RDW Coeff of Kvng Plt Count MPV Immature Gran % (Auto) Neut % (Auto) Lymph % (Auto) [place] % (Auto) Eos % (Auto) Baso % (Auto) Neut # (Auto) Lymph # (Auto) [place] # (Auto) Eos # (Auto) Baso # (Auto) Immature Gran # (Auto) PT INR APTT PTT Ratio POC Sodium 131 L Sodium POC Potassium 4.2 Potassium POC Chloride 100 L Chloride Carbon Dioxide POC Total CO2 22 L Anion Gap POC Anion Gap 15.0 L POC BUN 24 H BUN Creatinine POC Creatinine 1.1 Est Cr Clr Drug Dosing Est GFR ( Amer) Est GFR (Non-Af Amer) BUN/Creatinine Ratio Glucose POC Glucose POC Glucose (other) 136 H Osmolality 279 L Calcium POC Ioniz Calcium Sky 1.25 Phosphorus Magnesium Total Bilirubin AST ALT Alkaline Phosphatase Troponin I High Sens Total Protein Albumin Globulin Albumin/Globulin Ratio TSH Urine Osmolality 279 L Ur Random Sodium Digoxin Ethyl Alcohol mg/dL 03/11/23 03/11/23 03/11/23 20:06 21:26 22:36 WBC RBC Hgb POC Hgb Hct POC Hct MCV MCH MCHC RDW Std Deviation RDW Coeff of Kvng Plt Count MPV Immature Gran % (Auto) Neut % (Auto) Lymph % (Auto) [place] % (Auto) Eos % (Auto) Baso % (Auto) Neut # (Auto) Lymph # (Auto) [place] # (Auto) Eos # (Auto) Baso # (Auto) Immature Gran # (Auto) PT INR APTT PTT Ratio POC Sodium Sodium POC Potassium Potassium POC Chloride Chloride Carbon Dioxide POC Total CO2 Anion Gap POC Anion Gap POC BUN BUN Creatinine POC Creatinine Est Cr Clr Drug Dosing Est GFR ( Amer) Est GFR (Non-Af Amer) BUN/Creatinine Ratio Glucose POC Glucose 129 H POC Glucose (other) Osmolality Calcium POC Ioniz Calcium Sky Phosphorus Magnesium Total Bilirubin AST ALT Alkaline Phosphatase Troponin I High Sens 90.2 H* D Total Protein Albumin Globulin Albumin/Globulin Ratio TSH Urine Osmolality Ur Random Sodium 38 Digoxin Ethyl Alcohol mg/dL 03/12/23 03/12/23 03/12/23 02:21 02:21 02:21 WBC 7.17 RBC 2.31 L Hgb 8.1 L POC Hgb Hct 24.8 L POC Hct MCV 107.4 H MCH 35.1 H MCHC 32.7 RDW Std Deviation 60.4 H RDW Coeff of Kvng 15.4 H Plt Count 226 MPV 11.2 Immature Gran % (Auto) 2.1 Neut % (Auto) 64.7 Lymph % (Auto) 21.6 [place] % (Auto) 8.6 Eos % (Auto) 2.2 Baso % (Auto) 0.8 Neut # (Auto) 4.63 Lymph # (Auto) 1.55 [place] # (Auto) 0.62 H Eos # (Auto) 0.16 Baso # (Auto) 0.06 Immature Gran # (Auto) 0.15 PT INR APTT PTT Ratio POC Sodium Sodium Cancelled POC Potassium Potassium POC Chloride Chloride Carbon Dioxide POC Total CO2 Anion Gap POC Anion Gap POC BUN BUN Creatinine POC Creatinine Est Cr Clr Drug Dosing Est GFR ( Amer) Est GFR (Non-Af Amer) BUN/Creatinine Ratio Glucose POC Glucose POC Glucose (other) Osmolality Calcium POC Ioniz Calcium Sky Phosphorus Magnesium Total Bilirubin AST ALT Alkaline Phosphatase Troponin I High Sens 110.6 H* D Total Protein Albumin Globulin Albumin/Globulin Ratio TSH Urine Osmolality Ur Random Sodium Digoxin Ethyl Alcohol mg/dL 03/12/23 03/12/23 03/12/23 02:21 02:21 05:51 WBC RBC Hgb POC Hgb Hct POC Hct MCV MCH MCHC RDW Std Deviation RDW Coeff of Kvng Plt Count MPV Immature Gran % (Auto) Neut % (Auto) Lymph % (Auto) [place] % (Auto) Eos % (Auto) Baso % (Auto) Neut # (Auto) Lymph # (Auto) [place] # (Auto) Eos # (Auto) Baso # (Auto) Immature Gran # (Auto) PT 10.3 INR 0.9 APTT PTT Ratio POC Sodium Sodium 134 L POC Potassium Potassium 4.6 POC Chloride Chloride 106 Carbon Dioxide 23 POC Total CO2 Anion Gap 5 POC Anion Gap POC BUN BUN 21 Creatinine 0.81 D POC Creatinine Est Cr Clr Drug Dosing 114.4 Est GFR ( Amer) 108.9 Est GFR (Non-Af Amer) 93.9 BUN/Creatinine Ratio 25.9 H Glucose 152 H POC Glucose 138 H POC Glucose (other) Osmolality Calcium 9.0 POC Ioniz Calcium Sky Phosphorus Magnesium 2.5 H Total Bilirubin AST ALT Alkaline Phosphatase Troponin I High Sens Total Protein Albumin Globulin Albumin/Globulin Ratio TSH Urine Osmolality Ur Random Sodium Digoxin Ethyl Alcohol mg/dL Diagnostic Findings CXR 03/11/23: -- No acute cardiopulmonary findings. -- Cardiomegaly. CTA CHEST 03/11/23: Pulmonary arteries: No pulmonary embolism. Aorta: Normal caliber aorta. No dissection. Lungs: Unremarkable. Pleural space: Unremarkable. Heart: Unremarkable. Bones/joints: No acute fracture. Soft tissues: Unremarkable. Lymph nodes: Unremarkable. Tubes, lines and devices: Spinal stimulator terminates within the mid thoracic spinal canal. IMPRESSION: 1. No pulmonary embolism. 2. Normal caliber aorta. No dissection. Medications Administered Medication List Apixaban (Apixaban 5 Mg Tablet) 5 mg PO BID [facility] Stop: 04/11/23 08:59 Last Admin: 03/12/23 09:00 Dose: 5 mg Documented By: JACY Aspirin (Aspirin 81 Mg Ectab) 81 mg PO [facility] Stop: 04/11/23 08:59 Last Admin: 03/12/23 09:01 Dose: 81 mg Documented By: JACY Clopidogrel Bisulfate (Clopidogrel Bisulfate 75 Mg Tab) 75 mg PO DAILY [facility] Stop: 04/11/23 08:59 Last Admin: 03/12/23 09:01 Dose: 75 mg Documented By: JACY Cyanocobalamin (Cyanocobalamin (B-12) 500 Mcg Tablet) 1,000 mcg PO [facility] Stop: 04/11/23 08:59 Last Admin: 03/12/23 09:02 Dose: 1,000 mcg Documented By: JACY Duloxetine HCl (Duloxetine Hcl 60 Mg Cap) 60 mg PO M [facility] Stop: 04/11/23 08:59 Last Admin: 03/12/23 09:02 Dose: 60 mg Documented By: JACY Folic Acid (Folic Acid 400 Mcg Tab) 400 mcg PO M [facility] Stop: 04/11/23 08:59 Last Admin: 03/12/23 09:03 Dose: 400 mcg Documented By: JACY Gabapentin (Gabapentin 400 Mg Cap) 800 mg PO TID [facility] Stop: 04/11/23 08:59 Last Admin: 03/12/23 09:03 Dose: 800 mg Documented By: JACY Diltiazem HCl 125 mg/ Dextrose 125 mls @ 10 mls/hr IV .[id number] [facility]; Protocol Stop: 04/10/23 21:14 Last Titration: 03/11/23 22:50 Dose: 10 mg/hr, 10 mls/hr Documented By: KIANNA Co-signed By: SHANTE Admin: 03/11/23 21:41 Dose: 5 mg/hr, 5 mls/hr Documented By: KIANNA Co-signed By: JADYN Sodium Chloride (Nss) 1,000 mls @ 80 mls/hr IV .[id number] [facility] Stop: 04/11/23 08:14 Last Admin: 03/12/23 09:00 Dose: 80 mls/hr Documented By: JACY Insulin Aspart (Insulin Aspart Per Unit Charge) 0 units SC Q6 [facility] Stop: 04/10/23 22:44 Last Admin: 03/12/23 06:08 Dose: Not Given Documented By: KIANNA Co-signed By: DEMI Admin: 03/11/23 23:47 Dose: Not Given Documented By: KIANNA Metoprolol Tartrate (Metoprolol Tartrate 50 Mg Tab) 50 mg PO BID [facility] Stop: 04/11/23 08:59 Last Admin: 03/12/23 09:03 Dose: 50 mg Documented By: JACY Pantoprazole Sodium ([facility]oprazole 40 Mg Tab) [facility]: 04/11/23 08:59 Last Admin: 03/12/23 09:04 Dose: 40 mg Documented By: JACY Tamsulosin HCl (Tamsulosin Hcl 0.4 Mg Cap) 0.4 mg PO DAILY [facility] Stop: 04/11/23 08:59 Last Admin: 03/12/23 09:04 Dose: 0.4 mg Documented By: JACY Thiamine HCl (Thiamine Hcl 100 Mg Tab) 100 mg PO QAM [facility] Stop: 04/11/23 08:59 Last Admin: 03/12/23 09:04 Dose: 100 mg Documented By: JACY Tramadol HCl (Tramadol Hcl 50 Mg Tablet) 100 mg PO BID [facility] Stop: 04/11/23 08:59 Last Admin: 03/12/23 09:10 Dose: 100 mg Documented By: JACY Discontinued Medications Aspirin (Aspirin Chew 324 Mg) 324 mg PO NOW STA Stop: 03/11/23 19:49 Last Admin: 03/11/23 19:57 Dose: 324 mg Documented By: JADYN Digoxin (Digoxin 0.125 Mg Tab) 0.125 mg PO NOW ONE Stop: 03/11/23 19:49 Last Admin: 03/11/23 20:14 Dose: 0.125 mg Documented By: JADYN Diltiazem HCl (Diltiazem Hcl 5 Mg/Ml 5 Ml Vial) 5 mg IV NOW STA; Protocol Stop: 03/11/23 21:10 Last Admin: 03/11/23 21:41 Dose: 5 mg Documented By: KIANNA Co-signed By: JADYN Sodium Chloride (Nss) 1,000 mls @ 999 mls/hr IV .Q1H1M STA Stop: 03/11/23 19:31 Last Infusion: 03/11/23 19:40 Dose: 0 mls/hr Documented By: Admin: 03/11/23 18:55 Dose: 999 mls/hr Documented By: ELIZABETH Sodium Chloride (Nss) 1,000 mls @ 999 mls/hr IV .Q1H1M ONE Stop: 03/11/23 20:00 Last Infusion: 03/11/23 20:00 Dose: 0 mls/hr Documented By: Admin: 03/11/23 19:12 Dose: 999 mls/hr Documented By: JADYN Multivitamins 10 ml/ Thiamine HCl 100 mg/ Folic Acid 1 mg/Sodium Chloride 1,011.2 mls @ 500 mls/hr IV .Q2H2M ONE Stop: 03/11/23 21:01 Last Infusion: 03/12/23 00:37 Dose: 0 mls/hr Documented By: Admin: 03/11/23 20:54 Dose: 500 mls/hr Documented By: JADYN Thiamine HCl 200 mg/ Sodium (Chloride) 52 mls @ 210 mls/hr IV NOW STA Stop: 03/11/23 19:14 Last Infusion: 03/11/23 20:17 Dose: 0 mls/hr Documented By: Admin: 03/11/23 20:01 Dose: 210 mls/hr Documented By: JADYN Magnesium Sulfate/Dextrose (Magnesium Sulfate / D5w) 1 gm in 100 mls @ 100 mls/hr IV Q1H [facility] Stop: 03/11/23 21:27 Last Infusion: 03/11/23 22:09 Dose: 0 mls/hr Documented By: Admin: 03/11/23 20:54 Dose: 100 mls/hr Documented By: Infusion: 03/11/23 20:42 Dose: 100 mls/hr Documented By: Admin: 03/11/23 19:42 Dose: 100 mls/hr Documented By: JADYN Magnesium Sulfate/Dextrose (Magnesium Sulfate / D5w) 1 gm in 100 mls @ 100 mls/hr IV Q1H [facility] Stop: 03/12/23 00:06 Last Infusion: 03/12/23 00:47 Dose: 0 mls/hr Documented By: Admin: 03/11/23 23:45 Dose: 100 mls/hr Documented By: Infusion: 03/11/23 23:41 Dose: 100 mls/hr Documented By: Admin: 03/11/23 22:41 Dose: 100 mls/hr Documented By: KIANNA Ioversol (Optiray 320 500ml) 105 ml IV ONCE ONE Stop: 03/11/23 20:39 Last Admin: 03/11/23 20:38 Dose: 105 ml Documented By: LILIYA Lorazepam (Lorazepam 2 Mg/1 Ml Vial) 1 mg IV ONE PRN; Protocol PRN Reason: EtoH Withdrawal AWSS 6-10 Last Admin: 03/12/23 08:55 Dose: 1 mg Documented By: JACY Metoprolol Tartrate (Metoprolol Tartrate 1 Mg/Ml Vial) 5 mg IV NOW STA Stop: 03/11/23 19:01 Last Admin: 03/11/23 19:20 Dose: 5 mg Documented By: JADYN Metoprolol Tartrate (Metoprolol Tartrate 1 Mg/Ml Vial) 5 mg IV NOW STA Stop: 03/11/23 19:28 Last Admin: 03/11/23 19:31 Dose: 5 mg Documented By: JADYN Metoprolol Tartrate (Metoprolol Tartrate 1 Mg/Ml Vial) 5 mg IV NOW STA Stop: 03/11/23 19:47 Last Admin: 03/11/23 19:59 Dose: 5 mg Documented By: JADYN Miscellaneous (Stat Iv Infusion Titration Per Protocol) 1 each N/A NOW STA Stop: 03/11/23 21:10 Last Admin: 03/11/23 23:47 Dose: Not Given Documented By: KIANNA PG Care Time/CCT Total # of Minutes Spent Total Time Spent with Patient: Total time spent is greater than 50% in coordination of care (as documented) at patient's floor/unit and/or counseling patient:54 Coding [place] [address] IN/OBS CONSULT LVL 5,80M Patient Type Established History Comprehensive Exam Comprehensive Medical Decision Making High Complexity Diagnoses Atrial flutter with rapid ventricular response I48.92 Elevated troponin R77.8 CAD in [place] artery I25.10 Hypertension I10 Hypertension type: primary hypertension Hyperlipidemia E78.5 Hyperlipidemia type: unspecified Statin intolerance Z78.9 Time Spent (min) 84 (4) Hypertension Hypertension type: primary hypertension Qualified Code(s): I10 - Essential (primary) hypertension (5) Hyperlipidemia Hyperlipidemia type: unspecified Qualified Code(s): E78.5 - Hyperlipidemia, unspecified
[2023-03-12] MEDS: traMADol HCL 50 MG TABLET PO SCH ×2 (09:10→20:05)
[2023-03-12] MEDS ORDERED: DIGOXIN 500 MCG in SYRINGE 8 ML IV STA (09:39)
[2023-03-12] MEDS: dilTIAZem HCL 125 MG in DEXTROSE 5% 100 ML IV SCH (10:54)
--- NOTE | 2023-03-12 14:11 | Electrocardiogram Report ---
Test Reason : Blood Pressure : / mmHG Vent. Rate : 161 BPM Atrial Rate : 000 BPM P-R Int : 000 ms QRS Dur : 084 ms QT Int : 226 ms P-R-T Axes : 000 019 223 degrees QTc Int : 369 ms Atrial flutter with 2 to 1 block Anterior infarct , age undetermined Abnormal ECG When compared with ECG of 28-FEB-2023 13:35, Atrial flutter has replaced Ectopic atrial rhythm Vent. rate has increased BY [address] more depressed Lateral leads Confirmed by Stephen Martino ([id number]) on 03/12/2023 2:11:33 PM Referred By: REFERRED SELF Confirmed By:Stephen Martino
--- NOTE | 2023-03-12 14:14 | Electrocardiogram Report ---
Test Reason : Blood Pressure : / mmHG Vent. Rate : 121 BPM Atrial Rate : 312 BPM P-R Int : 000 ms QRS Dur : 084 ms QT Int : 288 ms P-R-T Axes : 000 032 -32 degrees QTc Int : 408 ms Atrial flutter with variable A-V block Abnormal ECG When compared with ECG of 11-MAR-2023 18:43, (unconfirmed) HR has decreased Criteria for Anterior infarct are no longer Present ST no longer depressed in Lateral leads Confirmed by Stephen Martino ([id number]) on 03/12/2023 2:14:21 PM Referred By: REFERRED SELF Confirmed By:Stephen Martino
--- NOTE | 2023-03-12 14:46 | Hospitalist Progress Note ---
Date of Service March 12, 2023 Assessment & Plan (1) Atrial flutter with rapid ventricular response: Plan: Continue diltiazem drip. Addi is on hold. He has been seen by cardiology. DC cardioversion will be done later today. (2) Elevated troponin: Plan: Probably rate related supply/demand mismatch. No evidence of acute coronary syndrome. Telemetry. (3) Alcohol abuse: Plan: Counseled to stop drinking alcohol. Supportive care (4) Hypomagnesemia: Plan: Corrected with parenteral replacement. Serial labs (5) Hyponatremia: Plan: Mild. Improved to 134. Serial labs (6) Diabetes mellitus, type 2: Plan: Holding metformin and glimepiride . ADA diet. Sliding scale coverage (7) Sleep apnea: Plan: Patient would like to wait and restart HS CPAP when he is home (8) Hypertension: Plan: Stable . Holding lisinopril while on Dilt drip to avoid hypotension (9) History of heart artery stent: Plan: Stable Continue aspirin and plavix (10) Anxiety and depression: Plan: Stable. Continue Duloxetine Plan Hopeful discharge to home tomorrow, March 13 Admission and Anticipated Discharge Date Admission Date: March 11, 2023 Subjective Alert and oriented. Hemodynamically stable. He has been seen by cardiology. DC cardioversion will be done later today, March 12. IV fluids have been started. Thyroid profile is pending. He remains on a diltiazem drip Review of Systems Review of Systems: Constitutional-no fever or chills ENT-no blurred vision, no double vision, no epistaxis, no sore throat Respiratory-no cough, no wheezing, no shortness of breath Cardiac- no chest pain, no syncope GI-no nausea, vomiting, diarrhea, melena, hematochezia -no urinary retention, no urinary incontinence, no dysuria, no hematuria Musculoskeletal-no joint pain, no muscle tenderness Skin-no bruising, no rashes, no pruritus Neuro-no isolated weakness, no paresthesia, no weakness Psych-no depression, no anxiety Physical Exam 2 Physical Exam: General-alert and oriented x3, no fevers, no chills HEENT-head atraumatic and normocephalic, pupils equal and reactive to light, extraocular muscles intact Neck-no lymphadenopathy or thyromegaly, trachea midline Chest-clear to auscultation percussion. No rales wheezing or rhonchi Cardiac-tachycardic irregular rhythm, normal S1 and S2 Abdomen-normal bowel sounds, nontender, no hepatosplenomegaly Extremities-no cyanosis, clubbing, or edema Neuro-cranial nerves II through XII intact, motor and sensory function within normal limits, strength symmetrical , no focal deficits Psych-normal affect, normal mood Results & Data Results & Data Vital Signs (Past 12 Hours) Vital Signs Temp Pulse Pulse Pulse Resp BP Pulse Ox 03/12/23 14:00 83 14 118/70 97 03/12/23 13:00 82 14 109/63 96 03/12/23 11:00 81 19 135/76 95 03/12/23 10:00 95 H 24 139/80 03/12/23 09:00 129 H 23 150/70 H 97 03/12/23 10:49 92 H 03/12/23 08:46 36.6 C 116 H 18 131/85 97 03/12/23 08:00 93 H 18 151/84 H 96 03/12/23 07:10 126 H 03/12/23 05:00 104 H 23 137/72 95 03/12/23 03:00 91 H 19 137/82 97 O2 Del Method 03/12/23 14:00 Room Air 03/12/23 13:00 Room Air 03/12/23 11:00 Room Air 03/12/23 10:00 Room Air 03/12/23 09:00 Room Air 03/12/23 10:49 03/12/23 08:46 Room Air 03/12/23 08:00 Room Air 03/12/23 07:10 03/12/23 05:00 Room Air 03/12/23 03:00 Room Air Laboratory Results 03/12/23 02:21 03/12/23 02:21 PG Care Time/CCT Total # of Minutes Spent Total Time Spent with Patient: Total time spent is greater than 50% in coordination of care (as documented) at patient's floor/unit and/or counseling patient: Coding Level of Care Code 05446 SUB INP/OBS CARE 3/50MIN Diagnoses Atrial flutter with rapid ventricular response I48.92 Elevated troponin R77.8 Alcohol abuse F10.10 Hypomagnesemia E83.42 Hyponatremia E87.1 Diabetes mellitus, type 2 E11.9 Sleep apnea G47.30 Hypertension I10 Hypertension type: primary hypertension History of heart artery stent Z95.5 Anxiety and depression F41.9; F32.9 (8) Hypertension Hypertension type: primary hypertension Qualified Code(s): I10 - Essential (primary) hypertension
[2023-03-12] MEDS ORDERED: DIGOXIN 250 MCG in SYRINGE 9 ML IV ONE (15:15)
[2023-03-12] MEDS ORDERED: DIGOXIN 0.125 MG TAB PO SCH (21:00)
[2023-03-12] MEDS ORDERED: INSULIN ASPART PER UNIT CHARGE SC SCH (21:00)
[2023-03-12] MEDS ORDERED: LORazepam 2 MG/1 ML VIAL IV PRN (21:30)
[2023-03-13 03:40] LABS: Basophils # (auto) 0.05 K/uL (0.00-0.20); Basophils % (auto) 0.8 %; Eosinophils # (auto) 0.23 K/uL (0.00-0.50); Eosinophils % (auto) 3.6 %; Hematocrit (blood only) 23.8 % (42.0-52.0); Hemoglobin 7.7 g/dl (14.0-18.0); Immature Granulocytes # (auto) 0.12 K/uL (0.01-0.20); Immature Granulocytes % (auto) 1.9 %; Lymphocytes # (auto) 1.36 K/uL (1.20-3.40); Lymphocytes % (auto) 21.1 %; Mean Corpuscular Hemoglobin 34.7 pg (25.0-34.0); Mean Corpuscular Hgb Conc 32.4 g/dL (32.0-36.0); Mean Corpuscular Volume 107.2 fL (80.0-100.0); Mean Platelet Volume 10.7 fL (9.4-12.4); Monocytes # (auto) 0.58 K/uL (0.11-0.59); Neutrophils # (auto) 4.12 K/uL (1.40-6.50); Neutrophils % (auto) 63.6 %; Platelet Count 211 K/uL (130-400); RDW Coefficient of Variation 15.2 % (11.5-14.5); RDW Standard Deviation 59.5 fL (36.4-46.3); Red Blood Count 2.22 M/uL (4.70-6.10); White Blood Count 6.46 K/ul (4.8-10.8)
[2023-03-13 04:02] LABS: RBC Morphology Unremarkable
[2023-03-13 04:34] LABS: BUN Creatinine Ratio 21.7 (10-20); Calcium 8.1 mg/dl (8.6-10.3); Creatinine Clr Calc Pharmacy 134.3 ml/min; Est GFR (African American) 116.3 ml/min; Est GFR (Non-African American) 100.3 ml/min; Magnesium 1.8 mg/dl (1.7-2.4); Potassium 4.5 mmol/L (3.5-5.1)
[2023-03-13] MEDS ORDERED: INSULIN ASPART PER UNIT CHARGE SC SCH ×2 (06:00→11:30)
[2023-03-13] MEDS: SODIUM CHLORIDE 0.9% 1,000 ML IV SCH (08:42)
[2023-03-13] MEDS: PANTOprazole 40 MG TAB PO SCH (08:43)
[2023-03-13] MEDS: THIAMINE HCL 100 MG TAB PO SCH (08:43)
[2023-03-13] MEDS: APIXABAN 5 MG TABLET PO SCH (08:43)
[2023-03-13] MEDS: CLOPIDOGREL BISULFATE 75 MG TAB PO SCH (08:43)
[2023-03-13] MEDS: ASPIRIN 81 MG ECTAB PO SCH (08:43)
[2023-03-13] MEDS: METOPROLOL TARTRATE 50 MG TAB PO SCH (08:44)
[2023-03-13] MEDS: CYANOCOBALAMIN (B-12) 500 MCG TABLET PO SCH (08:44)
[2023-03-13] MEDS: GABAPENTIN 400 MG CAP PO SCH ×2 (08:44→13:23)
[2023-03-13] MEDS: FOLIC ACID 400 MCG TAB PO SCH (08:45)
[2023-03-13] MEDS: TAMSULOSIN HCL 0.4 MG CAP PO SCH (08:47)
[2023-03-13] MEDS: DULoxetine HCL 60 MG CAP PO SCH (08:48)
[2023-03-13] MEDS: traMADol HCL 50 MG TABLET PO SCH (08:52)
--- NOTE | 2023-03-13 11:08 | Discharge Summary ---
Date of Service March 13, 2023 Admission HPI Per Admitting Provider Jackson Becker is a 62yo male with PMH of A-fib on Eliquis, a flutter with RVR (w/ cardioversion in 2020), CAD s/p anterolateral VT and stents placed in 2007, PAD s/p femoral artery stents Dec 2022, sleep apnea, HLD, DMII, tobacco abuse, and alcohol abuse who presented to the [facility] ED on 03/11 due to recurrent tachycardia with dizziness. In the ED he was noted to be tachycardic with HR in the 160's and systolic BP in the 70's, however, he was reportedly mentating well. Labs were significant for a leukocytosis of 11, stable chronic anemia, sodium of 129, mag of 1.6, initial high sen trop of 109. ECG showed atrial flutter with HR in the 160's. CTA of the chest was negative for PE with normal caliber aorta and clear lungs. The patient was initially given 2L NSS, 324 mg Aspirin, his afternoon dose of Dig, and 3 doses of 5 mg IV metoprolol with improvement of his HR to the 110's. Prior to admission the patient was also ordered a banana bag, given 2gm IV mag-sulfate, and started on a diltiazem drip. At the time of the exam the patient was lying in bed in no acute distress. His HR is currently in the low 110's while on 5 mg/hr of the diltiazem drip. He states that he has been trying to cut back on his drinking since his last admission. He is currently down to 4 beers daily, from 6+ prior to his last admission. He states that he was relaxing earlier this afternoon when he suddenly developed dizziness and back pain, which are his typical symptoms when he goes into atrial flutter. Due to these symptoms he came to the ED. He confirms that he took his am medications including Eliquis and metoprolol. He also confirms that he has not missed a dose of Eliquis since his last discharge as he setup an alarm on his phone to remind him to take it. He denies current chest pain, SOB, lightheadedness, dizziness, abd pain, nausea, vomiting, diarrhea, dysuria, hematuria, melena, LE swelling, and recent trauma. When asked, he states that he has not experienced withdrawal symptoms in the past when he stops drinking. He did not experience withdrawal symptoms during his last admission. He confirms he is a full code and would want his to make medical decisions for him if he cannot make them himself. Please refer to Dr. Mcdonald's attestation for any changes to the treatment plan Principal Diagnosis Atrial flutter with rapid ventricular rate, hyponatremia, hypomagnesemia, demand ischemia Discharge Exam General-alert and oriented x3, no fevers, no chills HEENT-head atraumatic and normocephalic, pupils equal and reactive to light, extraocular muscles intact Neck-no lymphadenopathy or thyromegaly, trachea midline Chest-clear to auscultation percussion. No rales wheezing or rhonchi Cardiac-tachycardic irregular rhythm, normal S1 and S2 Abdomen-normal bowel sounds, nontender, no hepatosplenomegaly Extremities-no cyanosis, clubbing, or edema Neuro-cranial nerves II through XII intact, motor and sensory function within normal limits, strength symmetrical , no focal deficits Psych-normal affect, normal mood Discharge Data Allergies Allergy/AdvReac Type Severity Reaction Status Date / Time latex Allergy Mild Rash Verified 03/11/23 20:06 Penicillins Allergy Mild Rash Verified 03/11/23 20:06 gemfibrozil AdvReac Intermediate BODY ACHES Verified 03/11/23 20:06 Gkqkxap-MUQ-IbD Reductase AdvReac Intermediate body aches Verified 03/11/23 20:06 Inhibitor [Skpepxm-Szz-Jmz Reductase Inhibitor] adhesive AdvReac Mild Rash Verified 03/11/23 20:06 NSAIDS (Non-Steroidal AdvReac Unknown TOLD NOT Verified 03/11/23 20:06 Anti-Inflamma TO TAKE - HX STOMACH ULCER Consultations 03/11/23 21:04 ED Decision to Admit Stat 03/11/23 22:18 Consult Cardiology Routine Ordered Studies 03/11/23 19:56 CT angio chest dissec wo/w con Stat Hospital Course (1) Atrial flutter with rapid ventricular response: He was treated while hospitalized with a diltiazem drip. He converted back to normal sinus rhythm before electrical cardioversion could be done. Eliquis has been restarted. He is stable for discharge home today, March 13 .appreciate cardiology consultation and recommendations (2) Elevated troponin: Probably rate related supply/demand mismatch. No evidence of acute coronary syndrome. Telemetry. (3) Alcohol abuse: Counseled to stop drinking alcohol. Supportive care (4) Hypomagnesemia: Corrected with parenteral replacement. Serial labs (5) Hyponatremia: Mild. Asymptomatic. (6) Diabetes mellitus, type 2: Holding metformin and glimepiride while hospitalized. Restart at discharge. ADA diet. Sliding scale coverage (7) Sleep apnea: Patient would like to wait and restart HS CPAP when he is home (8) Hypertension: Stable . Lisinopril will be restarted at discharge. (9) History of heart artery stent: Stable Continue aspirin and plavix (10) Anxiety and depression: Stable. Continue Duloxetine Plan Home today, March 13 Total Time Total Time Spent Total Time Spent (In Minutes): 40-minute Discharge Plan Discharge Items Patient Disposition: Home - Self-Care Reason For Visit: ATRIAL FLUTTER Discharge Diagnosis: Recurrent atrial flutter with rapid ventricular rate, demand ischemia, hyponatremia, hypomagnesemia Activity: Resume your previous activity Non-emergency contact: Primary Care Provider and Comic Book Writer Call non-emergency contact if: you have any medication questions and your symptoms worsen Follow-up/Referrals: Nitish Lam MD [Primary Care Provider] - Diet: Carb Consistent or DM2 and Heart Healthy Addtl Attending Provider Instructions: Follow-up with cardiology as recommended Pending Studies at Discharge: No Stand-Alone Forms: [employer], Smoking Cessation Medications and DC Order Prescriptions: Continued metformin 500 mg tablet extended release 24 hr 2,000 mg PO QAM Qty: 360 3RF duloxetine 60 mg capsule,delayed release(DR/EC) 60 mg PO QAM Qty: 90 3RF gabapentin 400 mg capsule 800 mg PO TID Qty: 180 5RF pantoprazole 40 mg tablet,delayed release (DR/EC) 40 mg PO QAM Qty: 90 1RF aspirin 81 mg tablet,chewable 81 mg PO QAM Qty: 90 3RF Eliquis 5 mg tablet 5 mg PO BID Qty: 180 3RF tramadol 50 mg tablet 100 mg PO BID Qty: 120 0RF metoprolol tartrate 50 mg tablet 50 mg PO BID Qty: 180 3RF lisinopril 40 mg tablet 40 mg PO QAM Qty: 90 3RF glimepiride 1 mg tablet 1 mg PO QAM Qty: 90 3RF Praluent Pen 150 mg/mL pen injector 150 mg subcut Q14D Qty: 2 11RF Rx Instructions: inject into abdomen, thigh, or upper arm (deltoid muscle); rotate sites tamsulosin 0.4 mg capsule 0.4 mg PO DAILY Qty: 90 3RF cholecalciferol (vitamin D3) 125 mcg (5,000 unit) capsule 125 mcg PO QAM acetaminophen 650 mg Tablet Extended Release 650 mg PO UD PRN (Reason: ARTHRITIS PAIN) Patient Comments: takes at least 2 tablets every day. cyanocobalamin (vitamin B-12) [Vitamin B-12] 1,000 mcg Tablet 1,000 mcg PO QAM clopidogrel [Plavix] 75 mg tablet 75 mg PO DAILY Qty: 30 0RF folic acid 400 mcg Tablet 0.4 mg PO QAM diltiazem HCl 240 mg capsule,extended release 24hr 240 mg PO HS digoxin 125 mcg (0.125 mg) tablet 125 mcg PO HS Discharge Orders: Discharge Order (Routine); Ordered 03/13/23 Ordered By: Aleks Billy Admission Data Admit Date/Time: 03/11/23 22:00 Attending Provider: Aleks Billy Admit Provider: Nel Mcdonald Primary Care Provider: Nitish Lam Other Providers: Nel Mcdonald ; Nitish Casillas Coding Level of Care Code 82619 INP/OBS DISCH >30 MIN Diagnoses Atrial flutter with rapid ventricular response I48.92 Elevated troponin R77.8 Alcohol abuse F10.10 Hypomagnesemia E83.42 Hyponatremia E87.1 Diabetes mellitus, type 2 E11.9 Sleep apnea G47.30 Hypertension I10 Hypertension type: primary hypertension History of heart artery stent Z95.5 Anxiety and depression F41.9; F32.9
--- NOTE | 2023-03-13 11:26 | Cardiology Progress Note ---
Date of Service March 13, 2023 Assessment & Plan (1) Atrial flutter with rapid ventricular response: (2) Hypomagnesemia: (3) Macrocytic anemia: (4) Alcohol abuse: Plan 62-year-old man with recurrent atrial flutter who presented with rapid ventricular response and hypotension. Fortunately, rhythm returned to sinus overnight. Precipitating factors likely chronic alcohol use with hypomagnesemia, counseled patient on importance of alcohol abstinence or at least reduction in alcohol intake. Would recommend oral magnesium supplement (e.g., magnesium chloride 64 mg twice daily) upon discharge given probability of ongoing alcohol use and risk of recurrent hypomagnesemia. His renal function is normal so the risk of hypermagnesemia is low. His outpatient regiment was diltiazem 240 mg daily, metoprolol 50 mg twice daily, and digoxin 125 mcg daily. Would shift from calcium channel felicity to higher dose of beta-felicity to reduce the risk of recurrent hypotension should he have recurrent atrial flutter. Wean off IV diltiazem, increase metoprolol to 100 mg twice daily, continue digoxin. If he remains in sinus on beta-felicity and digoxin, would not immediately restart diltiazem (to reduce risk of recurrent hypotension). Worsening anemia (hemoglobin dropped from 9.6 to 7.7) may be dilutional, but follow-up will be necessary to ensure he does not profoundly anemic prior to any cardiac procedure (such as a flutter ablation). Poor candidate for antiarrhythmics given tendency to electrolyte abnormalities, alcohol use, medication noncompliance. His atrial flutter was determined to be a type that would require tertiary care intervention, will arrange for electrophysiology evaluation at [facility] as outpatient. Admission and Anticipated Discharge Date Admission Date: March 11, 2023 Subjective Feels better today. Rhythm converted last evening from atrial flutter to sinus with PACs/PVCs rate 70 to 80 bpm. He denies any chest pain, dyspnea, subjective palpitations (not noted even when in a flutter). No somatic complaints currently Physical Exam Physical Exam: No distress. BP normotensive. Pulse 76 bpm and regular. Skin: no ecchymoses or generalized lesions. HEENT: unremarkable. Neck: JVP at the clavicle at 90 degrees, no carotid bruits. Lungs: clear. Cardiac: regular rhythm, normal S1-2, no murmur. Abdomen: benign. Extremities: no edema, pulses intact. Neurologic: normal affect and conversation, nonfocal. Results & Data Vital Signs (Past 12 Hours) Vital Signs Temp Pulse Pulse Resp BP Pulse Ox O2 Del Method 03/13/23 09:00 77 03/13/23 07:08 97.9 F 73 19 125/77 94 Room Air 03/13/23 03:04 97.9 F 76 21 122/67 96 Room Air Laboratory Results Sodium 135, potassium 4.5, BUN 15, creatinine 0.69. Magnesium 1.8. Troponin 49077 range on 8 draws over the past 2 days with flat trajectory. Hemoglobin 7.7, normal white count and platelet count. Diagnostic Findings ECG showed sinus rhythm with PACs and possible old septal infarct. Compared with yesterday, sinus rhythm has replaced atrial flutter. PG Care Time/CCT Total # of Minutes Spent Total Time Spent with Patient: Total time spent is greater than 50% in coordination of care (as documented) at patient's floor/unit and/or counseling patient: Coding Level of Care Code 23725 SUB INP/OBS CARE 3/50MIN Diagnoses Atrial flutter with rapid ventricular response I48.92 Hypomagnesemia E83.42 Macrocytic anemia D53.9 Alcohol abuse F10.10
[2023-03-13] MEDS ORDERED: METOPROLOL TARTRATE 50 MG TAB PO STA (12:14)
--- NOTE | 2023-03-13 13:01 | Electrocardiogram Report ---
Test Reason : Blood Pressure : / mmHG Vent. Rate : 084 BPM Atrial Rate : 084 BPM P-R Int : 164 ms QRS Dur : 094 ms QT Int : 334 ms P-R-T Axes : 053 042 -34 degrees QTc Int : 394 ms Sinus rhythm with frequent Premature atrial complexes Possible Old Septal infarct Abnormal ECG When compared with ECG of 11-MAR-2023 20:26, Sinus rhythm has replaced Atrial flutter HR has decreased by 37 bpm Confirmed by Chi Guido ([id number]) on 03/13/2023 1:01:35 PM Referred By: REFERRED SELF Confirmed By:Chi Guido
== END 2023-03-13 16:34 | disposition home or self-care (01) | DRG 309 ==
LOC: ED 18:20 → EDINP 22:00 → SUATTDRO 22:00 → 2S 03-12 01:03
DX: Z96.89 Presence of other specified functional implants; F17.210 Nicotine dependence, cigarettes, uncomplicated; Z79.01 Long term (current) use of anticoagulants; I48.92 Unspecified atrial flutter; Z98.1 Arthrodesis status; I25.2 Old myocardial infarction; Z91.040 Latex allergy status; I73.9 Peripheral vascular disease, unspecified; Z88.0 Allergy status to penicillin; Z96.653 Presence of artificial knee joint, bilateral; Z95.5 Presence of coronary angioplasty implant and graft; E83.42 Hypomagnesemia; Z86.16 Personal history of COVID-19; I25.10 Atherosclerotic heart disease of native coronary artery without angina pectoris; I24.89 Other forms of acute ischemic heart disease; I48.0 Paroxysmal atrial fibrillation; E11.51 Type 2 diabetes mellitus with diabetic peripheral angiopathy without gangrene; F10.10 Alcohol abuse, uncomplicated; I65.23 Occlusion and stenosis of bilateral carotid arteries; E78.5 Hyperlipidemia, unspecified; I10 Essential (primary) hypertension; G47.30 Sleep apnea, unspecified; E87.1 Hypo-osmolality and hyponatremia; F41.8 Other specified anxiety disorders; I44.30 Unspecified atrioventricular block

== ENCOUNTER 2023-03-21 18:54 | Inpatient (IN) ==
[2023-03-21] MEDS ORDERED: SODIUM CHLORIDE 0.9% 1,000 ML IV STA (19:11)
[2023-03-21] MEDS ORDERED: STAT IV Infusion **Titration per Protocol STA (19:11)
[2023-03-21] MEDS ORDERED: MAGNESIUM SULFATE / D5W 1 GM/100 ML BAG IV STA ×2 (19:11→22:48)
--- NOTE | 2023-03-21 19:20 | Emergency Department Note ---
Impression & Plan Atrial fibrillation with rapid ventricular response ED Provider Note NAME: RAKEL GAXIOLA JR AGE: 63 SEX: M : 1960 ARRIVES VIA: Walk-In INFORMANT: Patient, ED PROVIDER(S): Bandar Paulson DO CHIEF COMPLAINT: Palpitations HPI: The patient is a 63-year-old male who presented to the emergency department for an evaluation of palpitations. The patient has a history of paroxysmal atrial fibrillation. He states that earlier today he felt that he was going into atrial fibrillation. He started having dizziness upon standing and weakne ss. The patient describes near syncope. The patient denies having any rectal bleeding. He does complain of some chest discomfort especially on the right side. He denies having any lower extremity swelling greater than usual. He states that he has been compliant with his outpatient medications. This is the third time that he has had this problem. ROS: See above HPI for pertinent positives & negatives. A total of 10 systems reviewed and were otherwise negative. PAST MEDICAL HISTORY: See Below PAST SURGICAL HISTORY: See Below FAMILY HISTORY: See Below SOCIAL HISTORY: See Below HOME MEDICATIONS: See Below ALLERGIES: See Below VITALS: See Below PHYSICAL EXAMINATION: GENERAL: Patient is awake alert in no acute distress patient is resting comfortably and showing no signs of anxiety EYES: The conjunctivae are clear. The pupils are round and reactive. EARS, NOSE, MOUTH AND THROAT: The nose is without any evidence of any deformity. NECK: The neck is nontender and supple. RESPIRATORY: Normal respiratory effort is noted there is no evidence of wheezing rhonchi or rales CARDIOVASCULAR: Tachycardic and irregular heart sounds were noted to auscultation. There is no definite murmur. GASTROINTESTINAL: The abdomen is soft. Abdomen is nontender. MUSCULOSKELETAL/EXTREMITIES: There is no evidence of gross deformity full range of motion is noted in the hips and shoulders. SKIN: There is no obvious evidence of any rash. There are no petechiae, pallor or cyanosis noted. NEUROLOGIC: Patient is awake alert and oriented x3. MEDICAL DECISION MAKING: The patient is a 63-year-old male who has a history of paroxysmal atrial fibrillation who presented to the emergency department for fast heart rate. The patient has a history of similar episode in the past. He was treated with IV fluids IV magnesium and IV Cardizem in the emergency department. His blood pressure was low initially. For this reason he was placed on a Cardizem drip. The patient was reevaluated multiple times. He was improved with his heart rate as well as his symptoms. I discussed the patient's laboratory and radiographic studies with him. The patient was felt to be a good candidate for inpatient management. For this reason the [facility] hospitalist was notified about the patient. Triage Nursing notes reviewed. Prior medical records reviewed Vital Signs: reviewed and remarkable for tachycardia. Differential diagnosis: Premature contractions, electrolyte abnormality, cardiac dysrhythmia, thyroid dysfunction, pulmonary embolism, infection, gastrointestinal, as well as other pathologies. ER treatment provided: See below Diagnostics interpreted by me: ECG: EKG was obtained in the emergency department. My interpretation is atrial fibrillation with RVR at 150 bpm. Anterior Q waves were noted. Nonspecific ST segment abnormalities were noted. This was compared to a tracing from March 13, 2023. Sinus rhythm has been replaced with atrial fibrillation Cardiac Monitoring: An order was placed for continuous cardiac monitoring. The monitor shows a rate of 126 bpm with atrial fibrillation and RVR. Laboratory studies: As stated above and show below. Imaging studies: See below. Radiographic imaging was reviewed by myself Consultation(s): I discussed this case with Dr. Conklin. He is agreed to evaluate the patient in the emergency department for further management and disposition. ED COURSE: Procedures: none Critical Care: I have personally spent greater than 40 minutes of critical care time in the direct management of this patient. This includes bedside care, interpretation of diagnostic studies, and testing, discussion with consultants, patient, and family members, and other required patient management activities. This 40 minutes is in excess of all separately billable procedures. Past Med/Surg History Medical History Alcohol abuse Pt admits to >6 beers daily Bilateral carotid artery stenosis Per 11/2021 Carotid Doppler: 50-69% stenosis of right ICA, less than 50% stenosis of left ICA, greater than 50% stenosis of right ECA Antegrade flow in both vertebral arteries CAD in [place] artery s/p LAD stent x2 () Chronic anemia Degenerative disc disease Diabetes mellitus, type 2 Encounter for pre-operative examination GERD (gastroesophageal reflux disease) Well controlled and stable History of anxiety History of cardioversion 01/2021, [facility]; F/U [facility]YEN History of chronic back pain Neurogenic claudication due to lumbar stenosis History of COVID-19 03/18/2022>resolved History of gastric ulcer No recent issues Hx of transesophageal echocardiography (GLADYS) for monitoring 01/2021, [facility] Hyperlipidemia Hypertension Low iron Myocardial infarction Anterolateral DC- 2008, [facility], had cardiac cath; f/u asa ovalle Neuropathy Otalgia, right ear Paroxysmal atrial flutter 01/2021- s/p cardoversion- with excessive alcohol intake- felt to be contributing component. No AC. No recurrence per PCP records 07/29/22- - Recurrence in preop area prior to surgery - sent from ACU to ED- admitted to [facility] 07/29/22-07/30/22 Peripheral arterial disease Severe occlusive disease S/p L common femoral endarterectomy with bovine patch and lithotripsy of SFA and Popliteal arteries Sleep apnea "Mild to moderate"-cpap (has not been using for months) Surgical History Fusion of spine CERVICAL, "HAVE 80% OF MOTION" History of anesthesia reaction WITH BACK SURGERY 2004 - DISORIENTED, PULLED CATHETER OUT ([facility]) History of colonoscopy History of endarterectomy Left Femoral Endarterectomy with Bovine Patch History of esophagogastroduodenoscopy (EGD) History of heart artery stent 2006 or 2007, x1 stent, ASA; f/u [facility]a ovalle History of lumbar surgery X 3 - 2004, 2006, 2019 History of nasal septoplasty History of total knee replacement RT/LEFT (LEFT REVISION) Hx of cataract extraction rt/lt. Hx of transurethral resection of prostate Family History Mother Family history of diabetes mellitus Father Family history of diabetes mellitus Other No family history of adverse response to anesthesia Denies family history of Ovarian cancer Prostate cancer Myocardial infarction Breast cancer Colorectal cancer Social History Smoking Status: Current some day smoker Tobacco Type: Cigarettes Age Started Using Tobacco: 18; Cigarettes Per Day: 10; Second Hand Exposure: Yes ( SMOKES); Do You Dip or Chew Tobacco: No; Hx Alcohol Use: Yes Alcohol type: beer Alcohol type Comment: 6-8 beers Hx Substance Use: No Preferred Language: Slovenian Communication Ability: Effective Visual Impairment: No Limitations Director Of Vendor Management Required: No Beliefs That Will Affect Care: None marital status: Current Living Situation: Spouse Current Living Situation Comment: Lives at home with How many Children do You have: 4 Feels Safe at Home: Yes Childhood Exposure to Second-Hand Smoke: Yes Dental Care, Regularly: Yes Physical Activity Frequency: Does not Exercise Seatbelt Use: always Sunscreen Use: No Assistive Devices: Cane, CPAP and Walker Allergies Allergies Allergy/AdvReac Type Severity Reaction Status Date / Time latex Allergy Mild Rash Verified 03/11/23 20:06 Penicillins Allergy Mild Rash Verified 03/11/23 20:06 gemfibrozil AdvReac Intermediate BODY ACHES Verified 03/11/23 20:06 Tdtrvak-VNF-BiB Reductase AdvReac Intermediate body aches Verified 03/11/23 20:06 Inhibitor [Inlephy-Kny-Wul Reductase Inhibitor] adhesive AdvReac Mild Rash Verified 03/11/23 20:06 NSAIDS (Non-Steroidal AdvReac Unknown TOLD NOT Verified 03/11/23 20:06 Anti-Inflamma TO TAKE - HX STOMACH ULCER Home Meds Home Medications Medication Instructions Recorded Confirmed acetaminophen 650 mg 650 mg PO UD PRN ARTHRITIS PAIN 12/06/20 03/21/23 tablet,extended release folic acid 400 mcg tablet 0.4 mg PO QAM 04/23/22 03/21/23 cholecalciferol (vitamin D3) 125 125 mcg PO QAM 08/14/22 03/21/23 mcg (5,000 unit) capsule cyanocobalamin (vitamin B-12) 1,000 mcg PO QAM 08/26/22 03/21/23 1,000 mcg tablet (Vitamin B-12) digoxin 125 mcg (0.125 mg) tablet 125 mcg PO HS 02/26/23 03/21/23 diltiazem HCl 240 mg 240 mg PO HS 02/26/23 03/21/23 capsule,extended release 24 hr Previous Rx's Medication Instructions Recorded metformin 500 mg tablet,extended 2,000 mg PO QAM #360 tabs 08/13/22 release 24 hr duloxetine 60 mg capsule,delayed 60 mg PO QAM #90 caps 09/11/22 release gabapentin 400 mg capsule 800 mg PO TID #180 caps 12/16/22 pantoprazole 40 mg tablet,delayed 40 mg PO QAM #90 tabs 01/13/23 release clopidogrel 75 mg tablet (Plavix) 75 mg PO DAILY #30 tabs 01/22/23 apixaban 5 mg tablet (Eliquis) 5 mg PO BID #180 tabs 01/29/23 glimepiride 1 mg tablet 1 mg PO QAM #90 tabs 02/03/23 lisinopril 40 mg tablet 40 mg PO QAM #90 tabs 02/03/23 tramadol 50 mg tablet 100 mg PO BID #120 tabs 02/03/23 alirocumab 150 mg/mL subcutaneous 150 mg subcut Q14D #2 mL 02/05/23 pen injector (Praluent Pen) tamsulosin 0.4 mg capsule 0.4 mg PO DAILY #90 caps 03/06/23 magnesium oxide 400 mg PO BID #60 caps 03/13/23 metoprolol tartrate 100 mg tablet 100 mg PO BID #60 tabs 03/13/23 Results & Data (ED) Vital Signs Vital Signs - 24 hr 03/21/23 18:59 03/21/23 19:48 03/21/23 19:50 Temperature 36.9 C Temperature Source Oral Pulse Rate 155 H 153 H Pulse Rate [Apical] 129 H Pulse Rhythm [Apical] Pulse Strength [Apical] Respiratory Rate 18 18 Respiratory Effort / Characteristics Non-Labored Spontaneous Respiratory Depth Normal Blood Pressure 72/47 L Blood Pressure [Right Arm] 103/64 Blood Pressure Mean 55 Blood Pressure Mean [Right Arm] 77 Pulse Oximetry 96 94 Oxygen Delivery Method Room Air Room Air Sepsis Recent Fever Within 48 Hours No Sepsis New/Unexplained Change in Mental Status No Sepsis Action Taken by Nursing Physician Notified 03/21/23 19:51 03/21/23 20:05 03/21/23 20:20 Temperature Temperature Source Pulse Rate Pulse Rate [Apical] 132 H 125 H Pulse Rhythm [Apical] Pulse Strength [Apical] Respiratory Rate 19 18 Respiratory Effort / Characteristics Respiratory Depth Blood Pressure Blood Pressure [Right Arm] 104/63 96/65 L Blood Pressure Mean Blood Pressure Mean [Right Arm] 76 75 Pulse Oximetry 94 94 92 Oxygen Delivery Method Room Air Room Air Room Air Sepsis Recent Fever Within 48 Hours Sepsis New/Unexplained Change in Mental Status Sepsis Action Taken by Nursing 03/21/23 20:35 03/21/23 20:50 03/21/23 21:05 Temperature Temperature Source Pulse Rate Pulse Rate [Apical] 111 H 104 H 147 H Pulse Rhythm [Apical] Regular Pulse Strength [Apical] Normal Respiratory Rate 20 18 18 Respiratory Effort / Characteristics Respiratory Depth Blood Pressure Blood Pressure [Right Arm] 128/75 108/67 102/65 Blood Pressure Mean Blood Pressure Mean [Right Arm] 92 80 77 Pulse Oximetry 93 95 92 Oxygen Delivery Method Room Air Room Air Sepsis Recent Fever Within 48 Hours Sepsis New/Unexplained Change in Mental Status Sepsis Action Taken by Nursing 03/21/23 21:20 03/21/23 21:35 03/21/23 21:50 Temperature Temperature Source Pulse Rate Pulse Rate [Apical] 147 H 124 H 126 H Pulse Rhythm [Apical] Pulse Strength [Apical] Respiratory Rate 18 18 18 Respiratory Effort / Characteristics Respiratory Depth Blood Pressure Blood Pressure [Right Arm] 104/71 107/73 121/91 Blood Pressure Mean Blood Pressure Mean [Right Arm] 82 84 101 Pulse Oximetry 95 95 93 Oxygen Delivery Method Room Air Room Air Sepsis Recent Fever Within 48 Hours Sepsis New/Unexplained Change in Mental Status Sepsis Action Taken by [facility] Medications Current Medication List: was personally reviewed by me Laboratory Data Attestation: I reviewed the patient's lab results. 03/21/23 Unknown 03/21/23 Unknown Lab Results 03/21/23 03/21/23 03/21/23 Range/Units 20:19 Unknown Unknown WBC 8.32 (4.8-10.8) K/ul RBC 2.72 L (4.70-6.10) M/uL Hgb 9.3 L (14.0-18.0) g/dl Hct 28.4 L (42.0-52.0) % MCV 104.4 H (80.0-100.0) fL MCH 34.2 H (25.0-34.0) pg MCHC 32.7 (32.0-36.0) g/dL RDW Std Deviation 57.8 H (36.4-46.3) fL RDW Coeff of Kvng 14.9 H (11.5-14.5) % Plt Count 337 (130-400) K/uL MPV 10.5 (9.4-12.4) fL Immature Gran % (Auto) 1.9 % Neut % (Auto) 62.9 % Lymph % (Auto) 20.3 % [place] % (Auto) 12.4 % Eos % (Auto) 1.7 % Baso % (Auto) 0.8 % Neut # (Auto) 5.23 (1.40-6.50) K/uL Lymph # (Auto) 1.69 (1.20-3.40) K/uL [place] # (Auto) 1.03 H (0.11-0.59) K/uL Eos # (Auto) 0.14 (0.00-0.50) K/uL Baso # (Auto) 0.07 (0.00-0.20) K/uL Immature Gran # (Auto) 0.16 (0.01-0.20) K/uL Absolute Nucleated RBC 0.02 (0.00-0.12) K/uL Nucleated RBC % (auto) 0.2 % PT 11.2 (9.0-12.0) Seconds INR 1.0 (0.9-1.1) APTT 27.5 (21.0-31.0) Seconds PTT Ratio 1.0 Sodium (136-145) mmol/L Potassium (3.5-5.1) mmol/L Chloride (98-107) mmol/L Carbon Dioxide (21-32) mmol/L Anion Gap (3-11) BUN (6-23) mg/dl Creatinine (0.6-1.4) mg/dl Est Cr Clr Drug Dosing ml/min Est GFR ( Amer) ml/min Est GFR (Non-Af Amer) ml/min BUN/Creatinine Ratio (10-20) Glucose (70-99(Fasting)) mg/dl Calcium (8.6-10.3) mg/dl Magnesium (1.7-2.4) mg/dl Total Bilirubin (0.2-1.0) mg/dl AST (13-39) U/L ALT (7-52) U/L Alkaline Phosphatase (34-104) U/L Troponin I High Sens (0-20) pg/ml Total Protein (6.0-8.3) gm/dl Albumin (3.4-5.0) gm/dl Globulin (2.5-4.0) gm/dl Albumin/Globulin Ratio (0.9-2) TSH (0.300-4.500) uIu/ml Ethyl Alcohol mg/dL < 10.0 (<10.0) mg/dl 03/21/23 Range/Units Unknown WBC (4.8-10.8) K/ul RBC (4.70-6.10) M/uL Hgb (14.0-18.0) g/dl Hct (42.0-52.0) % MCV (80.0-100.0) fL MCH (25.0-34.0) pg MCHC (32.0-36.0) g/dL RDW Std Deviation (36.4-46.3) fL RDW Coeff of Kvng (11.5-14.5) % Plt Count (130-400) K/uL MPV (9.4-12.4) fL Immature Gran % (Auto) % Neut % (Auto) % Lymph % (Auto) % [place] % (Auto) % Eos % (Auto) % Baso % (Auto) % Neut # (Auto) (1.40-6.50) K/uL Lymph # (Auto) (1.20-3.40) K/uL [place] # (Auto) (0.11-0.59) K/uL Eos # (Auto) (0.00-0.50) K/uL Baso # (Auto) (0.00-0.20) K/uL Immature Gran # (Auto) (0.01-0.20) K/uL Absolute Nucleated RBC (0.00-0.12) K/uL Nucleated RBC % (auto) % PT (9.0-12.0) Seconds INR (0.9-1.1) APTT (21.0-31.0) Seconds PTT Ratio Sodium 133 L (136-145) mmol/L Potassium 3.9 (3.5-5.1) mmol/L Chloride 100 (98-107) mmol/L Carbon Dioxide 24 (21-32) mmol/L Anion Gap 9 (3-11) BUN 14 (6-23) mg/dl Creatinine 1.11 (0.6-1.4) mg/dl Est Cr Clr Drug Dosing 83.3 ml/min Est GFR ( Amer) 80.3 ml/min Est GFR (Non-Af Amer) 69.3 ml/min BUN/Creatinine Ratio 12.6 (10-20) Glucose 100 H (70-99(Fasting)) mg/dl Calcium 9.3 (8.6-10.3) mg/dl Magnesium 1.7 (1.7-2.4) mg/dl Total Bilirubin 0.3 (0.2-1.0) mg/dl AST 13 (13-39) U/L ALT 14 (7-52) U/L Alkaline Phosphatase 69 (34-104) U/L Troponin I High Sens 12.4 (0-20) pg/ml Total Protein 6.8 (6.0-8.3) gm/dl Albumin 3.8 (3.4-5.0) gm/dl Globulin 3.0 (2.5-4.0) gm/dl Albumin/Globulin Ratio 1.3 (0.9-2) TSH 2.148 (0.300-4.500) uIu/ml Ethyl Alcohol mg/dL (<10.0) mg/dl Administered Medications Diltiazem HCl 125 mg/ Dextrose 125 mls @ 5 mls/hr IV .Q24H [facility]; Protocol Stop: 04/20/23 19:14 Last Titration: 03/21/23 21:11 Dose: 10 mg/hr, 10 mls/hr Documented By: ANDREA Co-signed By: ACC Admin: 03/21/23 19:54 Dose: 5 mg/hr, 5 mls/hr Documented By: ANDREA Co-signed By: MARIZA Discontinued Medications Sodium Chloride (Nss) 1,000 mls @ 999 mls/hr IV .Q1H1M STA Stop: 03/21/23 20:11 Last Infusion: 03/21/23 21:05 Dose: 999 mls/hr Documented By: Admin: 03/21/23 19:32 Dose: 999 mls/hr Documented By: MARIZA Magnesium Sulfate/Dextrose (Magnesium Sulfate / D5w) 1 gm in 100 mls @ 100 mls/hr IV NOW STA Stop: 03/21/23 20:10 Last Infusion: 03/21/23 21:05 Dose: 100 mls/hr Documented By: Admin: 03/21/23 19:32 Dose: 100 mls/hr Documented By: MARIZA Sodium Chloride (Nss) 500 mls @ 999 mls/hr IV .Q31M ONE Stop: 03/21/23 21:47 Last Admin: 03/21/23 21:26 Dose: 999 mls/hr Documented By: ANDREA Sodium Chloride (Nss) 500 mls @ 999 mls/hr IV .Q31M ONE Stop: 03/21/23 21:53 Last Admin: 03/21/23 21:55 Dose: 999 mls/hr Documented By: ANDREA Lorazepam (Lorazepam 2 Mg/1 Ml Vial) 1 mg IV NOW STA Stop: 03/21/23 21:24 Last Admin: 03/21/23 21:55 Dose: 1 mg Documented By: ANDREA Imaging Data Attestation: I personally reviewed and interpreted this imaging study as follows: My Impression: 1 view chest x-ray was obtained in the emergency department. My interpretation is no free air or definite infiltrate, final report below. Radiologist's Impression: Chest X-Ray 03/21/23 19:11 XR chest 1V portable HISTORY: 63 years-old Male Dysrhythmia COMPARISON: 03/11/2023 TECHNIQUE: AP view of the chest FINDINGS: Cardiac silhouette is enlarged. No pneumothorax, pleural effusion, airspace consolidation or pulmonary edema. Degenerative changes of the shoulders and spine. Cervical spinal fusion hardware. IMPRESSION: No acute process. ACT 112: Negative or not required by law. The above report was generated using voice recognition software. It may contain grammatical, syntax or spelling errors. Electronically signed by: Juan Cid M.D. 03/21/2023 9:12 PM Discharge Plan Visit Data Chief Complaint: Tachycardia Stated Complaint: HEART FLUTTER, HYPOTENSION ED Provider: Bandar Paulson Discharge Problem: Atrial fibrillation with rapid ventricular response Patient Disposition: Being Evaluated by Hospitalist Forms Stand Alone Forms: My [facility] Prescriptions Prescriptions: No Action metformin 500 mg tablet extended release 24 hr 2,000 mg PO QAM Qty: 360 3RF duloxetine 60 mg capsule,delayed release(DR/EC) 60 mg PO QAM Qty: 90 3RF gabapentin 400 mg capsule 800 mg PO TID Qty: 180 5RF pantoprazole 40 mg tablet,delayed release (DR/EC) 40 mg PO QAM Qty: 90 1RF Eliquis 5 mg tablet 5 mg PO BID Qty: 180 3RF tramadol 50 mg tablet 100 mg PO BID Qty: 120 0RF lisinopril 40 mg tablet 40 mg PO QAM Qty: 90 3RF glimepiride 1 mg tablet 1 mg PO QAM Qty: 90 3RF Praluent Pen 150 mg/mL pen injector 150 mg subcut Q14D Qty: 2 11RF Rx Instructions: inject into abdomen, thigh, or upper arm (deltoid muscle); rotate sites tamsulosin 0.4 mg capsule 0.4 mg PO DAILY Qty: 90 3RF cholecalciferol (vitamin D3) 125 mcg (5,000 unit) capsule 125 mcg PO QAM acetaminophen 650 mg Tablet Extended Release 650 mg PO UD PRN (Reason: ARTHRITIS PAIN) Patient Comments: takes at least 2 tablets every day. cyanocobalamin (vitamin B-12) [Vitamin B-12] 1,000 mcg Tablet 1,000 mcg PO QAM clopidogrel [Plavix] 75 mg tablet 75 mg PO DAILY Qty: 30 0RF metoprolol tartrate 100 mg tablet 100 mg PO BID Qty: 60 0RF magnesium oxide 400 mg magnesium capsule 400 mg PO BID Qty: 60 0RF folic acid 400 mcg Tablet 0.4 mg PO QAM diltiazem HCl 240 mg capsule,extended release 24hr 240 mg PO HS digoxin 125 mcg (0.125 mg) tablet 125 mcg PO HS Referrals Referrals: Nitish Lam MD [Primary Care Provider] -
[2023-03-21] MEDS: dilTIAZem HCL 125 MG in DEXTROSE 5% 100 ML IV SCH (19:54)
[2023-03-21 20:01] LABS: Basophils # (auto) 0.07 K/uL (0.00-0.20); Basophils % (auto) 0.8 %; Eosinophils # (auto) 0.14 K/uL (0.00-0.50); Eosinophils % (auto) 1.7 %; Hematocrit (blood only) 28.4 % (42.0-52.0); Hemoglobin 9.3 g/dl (14.0-18.0); Immature Granulocytes # (auto) 0.16 K/uL (0.01-0.20); Immature Granulocytes % (auto) 1.9 %; Lymphocytes # (auto) 1.69 K/uL (1.20-3.40); Lymphocytes % (auto) 20.3 %; Mean Corpuscular Hemoglobin 34.2 pg (25.0-34.0); Mean Corpuscular Hgb Conc 32.7 g/dL (32.0-36.0); Mean Corpuscular Volume 104.4 fL (80.0-100.0); Mean Platelet Volume 10.5 fL (9.4-12.4); Monocytes # (auto) 1.03 K/uL (0.11-0.59); Monocytes % (auto) 12.4 %; Neutrophils # (auto) 5.23 K/uL (1.40-6.50); Neutrophils % (auto) 62.9 %; Nucleated RBC # (auto) 0.02 K/uL (0.00-0.12); Nucleated RBC % (auto) 0.2 %; Platelet Count 337 K/uL (130-400); RDW Coefficient of Variation 14.9 % (11.5-14.5); RDW Standard Deviation 57.8 fL (36.4-46.3); Red Blood Count 2.72 M/uL (4.70-6.10); White Blood Count 8.32 K/ul (4.8-10.8)
[2023-03-21 20:19] LABS: Partial Thromboplastin Time 27.5 Seconds (21.0-31.0); Prothrombin Time 11.2 Seconds (9.0-12.0)
[2023-03-21 20:22] LABS: Albumin Globulin Ratio 1.3 (0.9-2); Albumin Level 3.8 gm/dl (3.4-5.0); BUN Creatinine Ratio 12.6 (10-20); Bilirubin,Total 0.3 mg/dl (0.2-1.0); Calcium 9.3 mg/dl (8.6-10.3); Creatinine Clr Calc Pharmacy 83.3 ml/min; Est GFR (African American) 80.3 ml/min; Est GFR (Non-African American) 69.3 ml/min; Magnesium 1.7 mg/dl (1.7-2.4); Potassium 3.9 mmol/L (3.5-5.1); Total Protein 6.8 gm/dl (6.0-8.3)
[2023-03-21 20:28] LABS: Troponin I High Sensitivity 12.4 pg/ml (0-20)
[2023-03-21 20:37] LABS: Thyroid Stimulating Hormone 2.148 uIu/ml (0.300-4.500)
--- NOTE | 2023-03-21 21:13 | XRay Report ---
XR chest 1V portable HISTORY: 63 years-old Male Dysrhythmia COMPARISON: 03/11/2023 TECHNIQUE: AP view of the chest FINDINGS: Cardiac silhouette is enlarged. No pneumothorax, pleural effusion, airspace consolidation or pulmonar y edema. Degenerative changes of the shoulders and spine. Cervical spinal fusion hardware. IMPRESSION: No acute process. ACT 112: Negative or not required by law. The above report was generated using voice recognition software. It may contain grammatical, syntax o r spelling errors. Electronically signed by: Juan Cid M.D. 03/21/2023 9:12 PM
[2023-03-21] MEDS ORDERED: SODIUM CHLORIDE 0.9% 500 ML IV ONE ×3 (21:17→22:03)
[2023-03-21] MEDS ORDERED: LORazepam 2 MG/1 ML VIAL IV STA (21:23)
[2023-03-21] MEDS ORDERED: DIGOXIN 125 MCG in SYRINGE 9.5 ML IV ONE (22:21)
[2023-03-21] MEDS ORDERED: POTASSIUM CHLORIDE 10 MEQ TABCR PO STA (22:21)
[2023-03-21] MEDS ORDERED: LACTATED RINGER'S 500 ML IV ONE (22:43)
--- NOTE | 2023-03-21 23:12 | History & Physical Report ---
Date of Service March 21, 2023 Assessment & Plan (1) Atrial fibrillation with rapid ventricular response: Plan: -AF w/ RVR likely multifactorial in etiology- alcohol abuse, sleep apnea, electrolyte deficiencies, subtherapeutic digoxin level -S/p 3L fluid repletion, digoxin 125 mcg, magnesium 2 g IV, diltiazem infusion in ER -Continue metoprolol 100 mg BID, digoxin 125 mcg HS, diltiazem infusion ongoing -Rate control appears to be gradually improving to HR 100s -GLADYS done on 02/28 without atrial appendage thrombus identified -Maintain K > 4, Mg > 2 -Telemetry monitoring -Cardiology consulted (2) Hypotension: Plan: -Noted borderline hypotension to 90s/60s after diltiazem infusion and then to 80s/50s while on diltiazem infusion -S/p 3L fluid repletion, started on maintenance IVF with LR -BP improving with fluid repletion -Holding home lisinopril, tamsulosin -Will continue diltiazem, metoprolol for rate control (3) Hyponatremia: Plan: -Mild hyponatremia with Na 133 on admission -Likely beer potomania -Monitor BMP (4) Hypomagnesemia: Plan: -Chronic hypomagnesemia, likely contributory to AF w/ RVR -Continue home magnesium PO supplementation -S/p Mg 2 g IV in ER -Maintain Mg > 4 given CAD -Monitor Mg (5) Alcohol use: Plan: -Ongoing significant alcohol abuse, likely contributory to AF w/ RVR -Blood alcohol level normal on admission -Pt not currently in alcohol intoxication, but will continue folate and add thiamine, MVI -Suspect he will need AWSS protocol during hospitalization (6) Macrocytic anemia: Plan: -Hgb 9.3 on admission, MCV 104 -Likely due to alcohol abuse, folate deficiency -Continue folic acid repletion -Monitor CBC (7) CAD in [place] artery: Plan: -Continue Plavix, metoprolol -Not on statin due to intolerance -Holding lisinopril for hypotension -Stable, no ACS at present suspected (8) Diabetes mellitus, type 2: Plan: -Holding metformin, glimepiride -Lantus 5u BID, SSI -Continue duloxetine, gabapentin for neuropathy (9) Anxiety and depression: Plan: -Continue duloxetine (10) Hypertension: Plan: -Chronic hypertension on multiple medications -Continue diltiazem infusion, metoprolol with hold parameters -Holding lisinopril and Flomax -BP stable, improving with fluid repletion (11) Sleep apnea: Plan: -History of JJ noted, may be contributory to AF -CPAP Hs (12) BPH (benign prostatic hyperplasia): Plan: -Holding Flomax for hypotension (13) GERD (gastroesophageal reflux disease): Plan: -Continue pantoprazole Plan FENGI: NPO in case of cardioversion Code status: Full DVT prophylaxis: Eliquis Isolation: None Disposition: PCU History of Present Illness Chief Complaint: Lightheadedness Primary Care Provider: Nitish Lam MD Pt is 63 yo M with PMH pAF on Eliquis requiring cardioversion in the past, alcohol abuse, CAD s/p PCI with SAE, chronic macrocytic anemia, DM2, GERD, anxiety, chronic back pain, HTN, JJ presenting with lightheadedness. Pt was recently admitted 03/11-03/13 for atrial fibrillation w/ RVR which resolved with diltiazem. Metoprolol 50 mg BID increased to 100 mg BID on discharge. Initially felt well though today, pt reports onset of palpitations in afternoon with dizziness and lightheadedness causing him to nearly fall. He denied having any overt chest pain at the time. Pt looked at his wrist watch which indicated tachycardia and he came to ER for further evaluation. Pt arrived to ER in AF w/ RVR to HR 140s, BP 90s/60s (after initiation of diltiazem). Initial evaluation significant for Hgb 9.3, Na 133, K 3.9, Mg 1.7, negative troponin, normal TSH, digoxin level 0.5. CXR negative. EKG demonstrating AF w/ RVR and rate [address] segment abnormalities without overt elevations/depressions. ER interventions include 2.5L NSS repletion, 0.5L LR bolus, magnesium 2 g IV, Ativan 1 mg IV, KCl 10 meq, digoxin 125 mcg IV, diltiazem infusion. Pt sleeping on evaluation. Upon awakening, he reported feeling somewhat better but still having palpitations. States he has been adherent to all medications including Eliquis since discharge. Allergies Allergy/AdvReac Type Severity Reaction Status Date / Time latex Allergy Mild Rash Verified 03/11/23 20:06 Penicillins Allergy Mild Rash Verified 03/11/23 20:06 gemfibrozil AdvReac Intermediate BODY ACHES Verified 03/11/23 20:06 [id number] Reductase AdvReac Intermediate body aches Verified 03/11/23 20:06 Inhibitor [Jdyeney-Aok-Xnt Reductase Inhibitor] adhesive AdvReac Mild Rash Verified 03/11/23 20:06 NSAIDS (Non-Steroidal AdvReac Unknown TOLD NOT Verified 03/11/23 20:06 Anti-Inflamma TO TAKE - HX STOMACH ULCER Home Medications Medication Instructions Recorded Confirmed Type acetaminophen 650 mg 650 mg PO UD PRN ARTHRITIS PAIN 12/06/20 03/21/23 History tablet,extended release folic acid 400 mcg tablet 0.4 mg PO QAM 04/23/22 03/21/23 History metformin 500 mg tablet,extended 2,000 mg PO QAM #360 tabs 08/13/22 03/21/23 Rx release 24 hr cholecalciferol (vitamin D3) 125 125 mcg PO QAM 08/14/22 03/21/23 History mcg (5,000 unit) capsule cyanocobalamin (vitamin B-12) 1,000 mcg PO QAM 08/26/22 03/21/23 History 1,000 mcg tablet (Vitamin B-12) duloxetine 60 mg capsule,delayed 60 mg PO QAM #90 caps 09/11/22 03/21/23 Rx release gabapentin 400 mg capsule 800 mg PO TID #180 caps 12/16/22 03/21/23 Rx pantoprazole 40 mg tablet,delayed 40 mg PO QAM #90 tabs 01/13/23 03/21/23 Rx release clopidogrel 75 mg tablet (Plavix) 75 mg PO DAILY #30 tabs 01/22/23 03/21/23 Rx apixaban 5 mg tablet (Eliquis) 5 mg PO BID #180 tabs 01/29/23 03/21/23 Rx glimepiride 1 mg tablet 1 mg PO QAM #90 tabs 02/03/23 03/21/23 Rx lisinopril 40 mg tablet 40 mg PO QAM #90 tabs 02/03/23 03/21/23 Rx tramadol 50 mg tablet 100 mg PO BID #120 tabs 02/03/23 03/21/23 Rx alirocumab 150 mg/mL subcutaneous 150 mg subcut Q14D #2 mL 02/05/23 03/21/23 Rx pen injector (Praluent Pen) digoxin 125 mcg (0.125 mg) tablet 125 mcg PO HS 02/26/23 03/21/23 History diltiazem HCl 240 mg 240 mg PO HS 02/26/23 03/21/23 History capsule,extended release 24 hr tamsulosin 0.4 mg capsule 0.4 mg PO DAILY #90 caps 03/06/23 03/21/23 Rx magnesium oxide 400 mg PO BID #60 caps 03/13/23 03/21/23 Rx metoprolol tartrate 100 mg tablet 100 mg PO BID #60 tabs 03/13/23 03/21/23 Rx Past Med/Surg History Medical History (Updated 03/21/23 @ 23:40 by Francine Whelan MD) Alcohol abuse Pt admits to >6 beers daily Bilateral carotid artery stenosis Per 11/2021 Carotid Doppler: 50-69% stenosis of right ICA, less than 50% stenosis of left ICA, greater than 50% stenosis of right ECA Antegrade flow in both vertebral arteries CAD in [place] artery s/p LAD stent x2 () Chronic anemia Degenerative disc disease Diabetes mellitus, type 2 Encounter for pre-operative examination GERD (gastroesophageal reflux disease) Well controlled and stable History of anxiety History of cardioversion 01/2021, [facility]; F/U [facility] History of chronic back pain Neurogenic claudication due to lumbar stenosis History of COVID-19 03/18/2022>resolved History of gastric ulcer No recent issues Hx of transesophageal echocardiography (GLADYS) for monitoring 01/2021, [facility] Hyperlipidemia Hypertension Low iron Myocardial infarction Anterolateral DC- 2008, [place], had cardiac cath; f/u [facility] Neuropathy Otalgia, right ear Paroxysmal atrial flutter 01/2021- s/p cardoversion- with excessive alcohol intake- felt to be contributing component. No AC. No recurrence per PCP records 07/29/22- - Recurrence in preop area prior to surgery - sent from ACU to ED- admitted to [facility] 07/29/22-07/30/22 Peripheral arterial disease Severe occlusive disease S/p L common femoral endarterectomy with bovine patch and lithotripsy of SFA and Popliteal arteries Sleep apnea "Mild to moderate"-cpap (has not been using for months) Surgical History Fusion of spine CERVICAL, "HAVE 80% OF MOTION" History of anesthesia reaction WITH BACK SURGERY 2005 - DISORIENTED, PULLED CATHETER OUT ([facility]) History of colonoscopy History of endarterectomy Left Femoral Endarterectomy with Bovine Patch History of esophagogastroduodenoscopy (EGD) History of heart artery stent 2006 or 2008, x1 stent, [place]; f/u [facility] History of lumbar surgery X 3 - 2004, 2006, 2019 History of nasal septoplasty History of total knee replacement RT/LEFT (LEFT REVISION) Hx of cataract extraction rt/lt. Hx of transurethral resection of prostate Family History Mother Family history of diabetes mellitus Father Family history of diabetes mellitus Other No family history of adverse response to anesthesia Denies family history of Ovarian cancer Prostate cancer Myocardial infarction Breast cancer Colorectal cancer Social History Smoking Status: Current every day smoker Tobacco Type: Cigarettes Age Started Using Tobacco: 18; Cigarettes Per Day: 10; Second Hand Exposure: Yes ( SMOKES); Do You Dip or Chew Tobacco: No; Hx Alcohol Use: Yes Alcohol type: beer Alcohol type Comment: 6-8 beers Hx Substance Use: No Preferred Language: Mongolian Communication Ability: Effective Visual Impairment: No Limitations 3Rd Grade Teacher Required: No Beliefs That Will Affect Care: None marital status: Current Living Situation: Spouse Current Living Situation Comment: Lives at home with How many Children do You have: 4 Feels Safe at Home: Yes Childhood Exposure to Second-Hand Smoke: Yes Dental Care, Regularly: Yes Physical Activity Frequency: Does not Exercise Seatbelt Use: always Sunscreen Use: No Assistive Devices: Cane, CPAP and Walker Review of Systems Review of Systems: Per HPI/Subjective Physical Exam Physical Exam: General: sleeping, no acute distress HEENT: PERRL, conjunctivae clear without injection, anicteric sclerae, moist mucous membranes Neck: supple, trachea midline, no thyromegaly, no JVD, no cervical lymphadenopathy CV: Irregular rhythm with tachycardia, normal S1 and S2, no murmurs Resp: CTAB, no increased work of breathing, no crackles or wheezes Abd: Soft, nontender, nondistended, no guarding or rebound, no hepatosplenomegaly Neuro: AOx3 though drowsy, no focal motor or sensory deficits Skin: no rashes or lesions, warm and dry Ext: no LE peripheral edema Results & Data Results & Data Vital Signs (Past 12 Hours) Vital Signs Temp Pulse Pulse Resp BP BP Pulse Ox 03/21/23 23:00 138 H 18 107/65 94 03/21/23 23:02 138 H 03/21/23 22:45 124 H 16 92/68 L 92 03/21/23 22:20 146 H 16 92 03/21/23 22:05 141 H 16 121/80 92 03/21/23 21:50 126 H 18 121/91 93 03/21/23 21:35 124 H 18 107/73 95 03/21/23 21:20 147 H 18 104/71 95 03/21/23 21:05 147 H 18 102/65 92 03/21/23 20:50 104 H 18 108/67 95 03/21/23 20:35 111 H 20 128/75 93 03/21/23 20:20 125 H 18 96/65 L 92 03/21/23 20:05 132 H 19 104/63 94 03/21/23 19:51 94 03/21/23 19:50 129 H 18 103/64 94 03/21/23 19:48 153 H 03/21/23 18:59 36.9 C 155 H 18 72/47 L 96 O2 Del Method 03/21/23 23:00 Room Air 03/21/23 23:02 03/21/23 22:45 Room Air 03/21/23 22:20 Room Air 03/21/23 22:05 03/21/23 21:50 Room Air 03/21/23 21:35 Room Air 03/21/23 21:20 03/21/23 21:05 03/21/23 20:50 Room Air 03/21/23 20:35 Room Air 03/21/23 20:20 Room Air 03/21/23 20:05 Room Air 03/21/23 19:51 Room Air 03/21/23 19:50 Room Air 03/21/23 19:48 03/21/23 18:59 Room Air Supervising Physician Co-Signing Physician Notes Attending addendum: I have physically seen this patient, have supervised the medical residents activities, and agree with the H&P unless as otherwise noted. Assessment and Plan: Atrial fibrillation with RVR/PAF history/hypertension/relative hypotension The patient will be admitted to telemetry for serial cardiac enzymes, serial EKG's, cardiac rhythm monitoring and a 2-D echocardiogram with Dopplers. Status post 3 L normal saline from the ED Continue Cardizem drip IV for now, but may need to DC due to declining blood pressures Digoxin level 0.5 on 125 mcg p.o. daily Give digoxin 0.25 mg IV now Continue metoprolol tartrate with hold parameters, give additional fluid boluses as noted to improve blood pressure Continue apixaban, clopidogrel Hold lisinopril and Cardizem CD for now Replete potassium to greater than 4 and magnesium to greater than 2 Diabetes mellitus- Insulin glargine with coverage scale as noted Check hemoglobin A1c Alcohol abuse- Thiamine and folic acid supplementation as noted AWSS protocol Resident Activity Tracking Resident Involvement: Resident Care Provided Care Provided: Adult Hospital Medicine (10) Hypertension Hypertension type: primary hypertension Qualified Code(s): I10 - Essential (primary) hypertension
[2023-03-21] MEDS ORDERED: DIGOXIN 250 MCG in SYRINGE 9 ML IV ONE (23:15)
[2023-03-22] MEDS ORDERED: GLUCOSE 10 TAB/TUBE PO PRN (00:40)
[2023-03-22] MEDS ORDERED: DEXTROSE 50% 50 ML SYRINGE IV PRN (00:40)
[2023-03-22] MEDS ORDERED: GLUCOSE 40% GEL 15 GM TUBE PO PRN (00:40)
[2023-03-22] MEDS ORDERED: GLUCAGON FOR INJ 1 MG VIAL SQ PRN (00:40)
[2023-03-22] MEDS ORDERED: CARBOHYDRATES FOR HYPOGLYCEMIA PO PRN (00:40)
[2023-03-22] MEDS: LACTATED RINGER'S 1,000 ML IV SCH ×2 (01:46→14:03)
[2023-03-22] MEDS: dilTIAZem HCL 125 MG in DEXTROSE 5% 100 ML IV SCH (04:57)
--- NOTE | 2023-03-22 05:31 | Billing Data ---
Date of Service March 22, 2023 Coding Level of Care Code 66870 INT INP/OBS CARE
[2023-03-22] MEDS: INSULIN ASPART PER UNIT CHARGE SC SCH ×4 (06:22→21:03)
--- NOTE | 2023-03-22 06:51 | Hospitalist Progress Note ---
Date of Service March 22, 2023 Assessment & Plan (1) Atrial fibrillation with rapid ventricular response: Plan: -AF w/ RVR likely multifactorial in etiology- alcohol abuse, sleep apnea, electrolyte deficiencies, subtherapeutic digoxin level -S/p 3L fluid repletion, digoxin 125 mcg, magnesium 2 g IV, diltiazem infusion in ER -Continue metoprolol 100 mg BID, digoxin 125 mcg HS, diltiazem infusion ongoing -GLADYS done on 02/28 without atrial appendage thrombus identified -Maintain K > 4, Mg > 2 -Telemetry monitoring, converted back to sinus rhythm on 03/22. -Cardiology consulted -Awaiting recommendations. (2) Hypotension: Plan: -Noted borderline hypotension to 90s/60s after diltiazem infusion and then to 80s/50s while on diltiazem infusion -S/p 3L fluid repletion, started on maintenance IVF with LR -BP improving with fluid repletion -Holding home lisinopril, tamsulosin -Will continue diltiazem, metoprolol for rate control (3) Hyponatremia: Plan: -Mild hyponatremia with Na 133 on admission -Likely beer potomania -Resolved (4) Hypomagnesemia: Plan: -Chronic hypomagnesemia, likely contributory to AF w/ RVR -Continue home magnesium PO supplementation -S/p Mg 2 g IV in ER -Maintain Mg > 4 given CAD -Resolved, will continue to monitor magnesium in daily labs. (5) Alcohol use: Plan: -Ongoing significant alcohol abuse, likely contributory to AF w/ RVR -Blood alcohol level normal on admission -Pt not currently in alcohol intoxication, but will continue folate and add thiamine, MVI -Suspect he will need AWSS protocol during hospitalization (6) Macrocytic anemia: Plan: -Hgb 9.3 on admission, MCV 104 -Likely due to alcohol abuse, folate deficiency -Continue folic acid repletion -Monitor CBC (7) CAD in [place] artery: Plan: -Continue Plavix, metoprolol -Not on statin due to intolerance -Holding lisinopril for hypotension -Stable, no ACS at present suspected (8) Diabetes mellitus, type 2: Plan: -Holding metformin, glimepiride -Lantus 5u BID, SSI -Continue duloxetine, gabapentin for neuropathy (9) Anxiety and depression: Plan: -Continue duloxetine (10) Hypertension: Plan: -Chronic hypertension on multiple medications -Continue diltiazem infusion, metoprolol with hold parameters -Holding lisinopril and Flomax -BP stable, improving with fluid repletion (11) Sleep apnea: Plan: -History of JJ noted, may be contributory to AF -CPAP Hs (12) BPH (benign prostatic hyperplasia): Plan: -Holding Flomax for hypotension (13) GERD (gastroesophageal reflux disease): Plan: -Continue pantoprazole Plan FENGI: NPO in case of cardioversion Code status: Full DVT prophylaxis: Eliquis Isolation: None Disposition: PCU Admission and Anticipated Discharge Date Admission Date: March 21, 2023 Supervising Physician Co-Signing Physician Notes I personally examined the patient and verified all gerber points of history and exam, discussed case, and agree with decision making with Dr Del Real feeling okay. Cardiology input appreciated. No new complaints now. Vitals noted, in general he is awake and alert pleasant no distress. HEENT normocep halic atraumatic mucous membranes moist. Cardio shows him to be in a flutter at about 66 on the monitor right before enter the room. Atrial flutternow rate controlled. Cardiology notes he will have a need for rhythm management, and given his prior track record certainly seems reasonable. Alcohol use and sleep apnea may be contributing to the refractory difficulties with controlling his rhythms. Appreciate cardiology input. Otherwise as above Subjective Patient seen bedside this morning. No issues or concerns at this time. States that his dizziness has passed and he feels better today. Review of Systems Review of Systems: All systems reviewed & are unremarkable except as noted in Subjective Physical Exam Physical Exam: Constitutional: well-appearing, no acute distress HEENT: PERRL, conjunctivae clear without injection, anicteric sclerae, moist mucous membranes Neck: supple, trachea midline, no thyromegaly, no JVD, no cervical lymphadenopathy CV: Irregular rhythm with tachycardia, normal S1 and S2, no murmurs Resp: CTAB, no increased work of breathing, no crackles or wheezes Abd: Soft, nontender, nondistended, no guarding or rebound, no hepatosplenomegaly Neuro: AOx3 though drowsy, no focal motor or sensory deficits Skin: no rashes or lesions, warm and dry Ext: no LE peripheral edema Results & Data Results & Data Vital Signs (Past 12 Hours) Vital Signs Temp Pulse Pulse Resp BP BP BP 03/22/23 04:11 36.5 C 77 20 119/62 03/22/23 00:40 36.8 C 95 H 18 112/58 L 03/22/23 00:40 03/22/23 00:50 03/22/23 00:50 86 03/22/23 00:50 36.8 C 98 H 16 112/58 L 03/21/23 23:06 135 H 03/21/23 23:45 99 H 18 115/66 03/21/23 23:00 138 H 18 107/65 03/21/23 23:02 138 H 03/21/23 22:45 124 H 16 92/68 L 03/21/23 22:20 146 H 16 03/21/23 22:05 141 H 16 121/80 03/21/23 21:50 126 H 18 121/91 03/21/23 21:35 124 H 18 107/73 03/21/23 21:20 147 H 18 104/71 03/21/23 21:05 147 H 18 102/65 03/21/23 20:50 104 H 18 108/67 03/21/23 20:35 111 H 20 128/75 03/21/23 20:20 125 H 18 96/65 L 03/21/23 20:05 132 H 19 104/63 03/21/23 19:51 03/21/23 19:50 129 H 18 103/64 03/21/23 19:48 153 H 03/21/23 18:59 36.9 C 155 H 18 72/47 L Pulse Ox Pulse Ox Pulse Ox O2 Del Method O2 Del Method O2 Del Method 03/22/23 04:11 96 Room Air 03/22/23 00:40 91 Room Air 03/22/23 00:40 91 Room Air 03/22/23 00:50 95 Room Air 03/22/23 00:50 03/22/23 00:50 95 Room Air 03/21/23 23:06 03/21/23 23:45 94 Room Air 03/21/23 23:00 94 Room Air 03/21/23 23:02 03/21/23 22:45 92 Room Air 03/21/23 22:20 92 Room Air 03/21/23 22:05 92 03/21/23 21:50 93 Room Air 03/21/23 21:35 95 Room Air 03/21/23 21:20 95 03/21/23 21:05 92 03/21/23 20:50 95 Room Air 03/21/23 20:35 93 Room Air 03/21/23 20:20 92 Room Air 03/21/23 20:05 94 Room Air 03/21/23 19:51 94 Room Air 03/21/23 19:50 94 Room Air 03/21/23 19:48 03/21/23 18:59 96 Room Air Resident Activity Tracking Resident Involvement: Resident Care Provided Care Provided: Adult Hospital Medicine (10) Hypertension Hypertension type: primary hypertension Qualified Code(s): I10 - Essential (primary) hypertension
[2023-03-22 07:01] LABS: Hematocrit (blood only) 26.4 % (42.0-52.0); Hemoglobin 8.2 g/dl (14.0-18.0); Mean Corpuscular Hemoglobin 33.3 pg (25.0-34.0); Mean Corpuscular Hgb Conc 31.1 g/dL (32.0-36.0); Mean Corpuscular Volume 107.3 fL (80.0-100.0); Mean Platelet Volume 10.7 fL (9.4-12.4); Platelet Count 285 K/uL (130-400); RDW Coefficient of Variation 15.1 % (11.5-14.5); RDW Standard Deviation 58.5 fL (36.4-46.3); Red Blood Count 2.46 M/uL (4.70-6.10); White Blood Count 5.56 K/ul (4.8-10.8)
[2023-03-22 07:28] LABS: BUN Creatinine Ratio 16.5 (10-20); Calcium 8.5 mg/dl (8.6-10.3); Creatinine Clr Calc Pharmacy 108.4 ml/min; Est GFR (Non-African American) 91.4 ml/min; Magnesium 2.2 mg/dl (1.7-2.4); Potassium 4.5 mmol/L (3.5-5.1)
--- NOTE | 2023-03-22 07:43 | Electrocardiogram Report ---
Test Reason : Blood Pressure : / mmHG Vent. Rate : 150 BPM Atrial Rate : 000 BPM P-R Int : 000 ms QRS Dur : 088 ms QT Int : 276 ms P-R-T Axes : 000 021 -50 degrees QTc Int : 436 ms atriaal flutter with rapid ventricular response Poor R wave progression, consider anterior TN vs. lead placement vs. LVH Marked ST abnormality, possible inferior subendocardial injury Abnormal ECG When compared with ECG of 13-MAR-2023 08:30, atrial flutter has replaced Sinus rhythm Vent. rate has increased BY 66 BPM Confirmed by Nitish Casillas ([id number]) on 03/22/2023 7:43:38 AM Referred By: REFERRED SELF Confirmed By:Oz Casillas
[2023-03-22] MEDS: LANTUS PER UNIT CHARGE SQ SCH ×2 (08:43→21:03)
[2023-03-22] MEDS: MAGNESIUM OXIDE 400 MG TAB PO SCH ×2 (08:44→20:16)
[2023-03-22] MEDS: PANTOprazole 40 MG TAB PO SCH (08:44)
[2023-03-22] MEDS: GABAPENTIN 400 MG CAP PO SCH ×3 (08:44→20:15)
[2023-03-22] MEDS: METOPROLOL TARTRATE 100 MG TAB PO SCH ×2 (08:44→20:16)
[2023-03-22] MEDS: APIXABAN 5 MG TABLET PO SCH ×2 (08:45→20:17)
[2023-03-22] MEDS: CLOPIDOGREL BISULFATE 75 MG TAB PO SCH (08:45)
[2023-03-22] MEDS: DULoxetine HCL 60 MG CAP PO SCH (08:45)
[2023-03-22] MEDS: FOLIC ACID 400 MCG TAB PO SCH (08:45)
[2023-03-22] MEDS: THIAMINE HCL 100 MG TAB PO SCH ×2 (08:48→20:16)
--- NOTE | 2023-03-22 12:54 | Cardiology Consultation ---
Date of Consultation March 22, 2023 Assessment & Plan (1) Atrial flutter with rapid ventricular response: (2) CAD in lummi artery: (3) Peripheral arterial disease: (4) Ectopic atrial rhythm: Plan 1. Atrial flutter: He has history of atrial flutter. He appears to have had 4- 5 episodes over a few years. However, 3 admissions this month for atrial flutter. I think we need to adopt a new strategy. He has been referred for catheter-based therapy which would be the best treatment overall. While his EKG suggests an atypical atrial flutter, there is still a high likelihood that this represents isthmus dependent right atrial flutter. As such, I offered him the option of EP testing and ablation locally perhaps even in the next few days. However, he has an appointment to meet one of the electrophysiologists later this week at [facility] and prefers to simply continue with that option. In the past he has always converted spontaneously to a sinus rhythm. Hopefully he will convert on his own again. Otherwise, we can plan a cardioversion on Friday. I think he will benefit from antiarrhythmic therapy as well. He seems to have more frequent recurrences resulting in hospitalization. There are few options given his history of coronary disease. I did mention sotalol and dofetilide which would require him to stay in the hospital for 2-3 more days. He was more anxious to be discharged on an oral medication that does not require prolonged hospitalization. I think dronedarone would be a reasonable option although the efficacy may be questionable. We will continue his systemic anticoagulation. At this point his diltiazem infusion has been discontinued due to relative bradycardia. We will continue him on his metoprolol, reduce his digoxin and start dronedarone. 2. Ectopic atrial rhythm: Documented in the past. No overt symptoms. Adequate rates. 3. Coronary disease: No recent symptoms. Cardiac biomarkers normal. Continue aggressive secondary prevention. History of Present Illness Reason for Consultation: Atrial flutter Attending Physician: Amandeep Salamanca DO History of Present Illness The patient is a 63-year-old gentleman with a history of coronary artery disease having previously suffered an anterolateral myocardial infarction, peripheral vascular disease, diabetes, alcohol abuse and atrial flutter. The patient has been hospitalized twice previously this month for atrial flutter. On both occasions he converted spontaneously and was discharged home on a regimen of rate control. Based on the appearance of the atrial flutter on EKG he was referred to [facility] for possible ablation. Patient states he was feeling well until yesterday when he began to experience symptoms of dizziness. He recognized this as a symptom of atrial flutter. He has a blood pressure cuff at home and when he checked his pulse and blood pressure his blood pressure was low and his pulse was high. He presented to the emergency room where he was found to have atrial flutter and rapid ventricular rate. The patient was started on a diltiazem infusion and admitted to the hospital. He is otherwise maintaining his usual level of activity. In between episodes he does not generally have significant dizziness or lightheadedness. He did not report any associated chest discomfort or significant breathing difficulty. This morning he claims to be feeling well. He has not been out of bed yet, but did report getting up to the bedside commode. No associated dizziness. No chest pain. No current sense of palpitation. Allergies Allergy/AdvReac Type Severity Reaction Status Date / Time latex Allergy Mild Rash Verified 03/11/23 20:06 Penicillins Allergy Mild Rash Verified 03/11/23 20:06 gemfibrozil AdvReac Intermediate BODY ACHES Verified 03/11/23 20:06 Uuznnly-PUT-NgE Reductase AdvReac Intermediate body aches Verified 03/11/23 20:06 Inhibitor [Dbazhma-Aui-Yvv Reductase Inhibitor] adhesive AdvReac Mild Rash Verified 03/11/23 20:06 NSAIDS (Non-Steroidal AdvReac Unknown TOLD NOT Verified 03/11/23 20:06 Anti-Inflamma TO TAKE - HX STOMACH ULCER Home Medications Medication Instructions Recorded Confirmed Type acetaminophen 650 mg 650 mg PO UD PRN ARTHRITIS PAIN 12/06/20 03/21/23 History tablet,extended release folic acid 400 mcg tablet 0.4 mg PO QAM 04/23/22 03/21/23 History metformin 500 mg tablet,extended 2,000 mg PO QAM #360 tabs 08/13/22 03/21/23 Rx release 24 hr cholecalciferol (vitamin D3) 125 125 mcg PO QAM 08/14/22 03/21/23 History mcg (5,000 unit) capsule cyanocobalamin (vitamin B-12) 1,000 mcg PO QAM 08/26/22 03/21/23 History 1,000 mcg tablet (Vitamin B-12) duloxetine 60 mg capsule,delayed 60 mg PO QAM #90 caps 09/11/22 03/21/23 Rx release gabapentin 400 mg capsule 800 mg PO TID #180 caps 12/16/22 03/21/23 Rx pantoprazole 40 mg tablet,delayed 40 mg PO QAM #90 tabs 01/13/23 03/21/23 Rx release clopidogrel 75 mg tablet (Plavix) 75 mg PO DAILY #30 tabs 01/22/23 03/21/23 Rx apixaban 5 mg tablet (Eliquis) 5 mg PO BID #180 tabs 01/29/23 03/21/23 Rx glimepiride 1 mg tablet 1 mg PO QAM #90 tabs 02/03/23 03/21/23 Rx lisinopril 40 mg tablet 40 mg PO QAM #90 tabs 02/03/23 03/21/23 Rx tramadol 50 mg tablet 100 mg PO BID #120 tabs 02/03/23 03/21/23 Rx alirocumab 150 mg/mL subcutaneous 150 mg subcut Q14D #2 mL 02/05/23 03/21/23 Rx pen injector (Praluent Pen) digoxin 125 mcg (0.125 mg) tablet 125 mcg PO HS 02/26/23 03/21/23 History diltiazem HCl 240 mg 240 mg PO HS 02/26/23 03/21/23 History capsule,extended release 24 hr tamsulosin 0.4 mg capsule 0.4 mg PO DAILY #90 caps 03/06/23 03/21/23 Rx magnesium oxide 400 mg PO BID #60 caps 03/13/23 03/21/23 Rx metoprolol tartrate 100 mg tablet 100 mg PO BID #60 tabs 03/13/23 03/21/23 Rx Patient History Medical History (Updated 03/21/23 @ 23:40 by Francine Whelan MD) Alcohol abuse Pt admits to >6 beers daily Bilateral carotid artery stenosis Per 11/2021 Carotid Doppler: 50-69% stenosis of right ICA, less than 50% stenosis of left ICA, greater than 50% stenosis of right ECA Antegrade flow in both vertebral arteries CAD in lummi artery s/p LAD stent x2 () Chronic anemia Degenerative disc disease Diabetes mellitus, type 2 Encounter for pre-operative examination GERD (gastroesophageal reflux disease) Well controlled and stable History of anxiety History of cardioversion 01/2021, [facility]; F/U ASA NGUYEN History of chronic back pain Neurogenic claudication due to lumbar stenosis History of COVID-19 03/18/2022>resolved History of gastric ulcer No recent issues Hx of transesophageal echocardiography (GLADYS) for monitoring 01/2021, [facility] Hyperlipidemia Hypertension Low iron Myocardial infarction Anterolateral SD- 2008, [place], had cardiac cath; f/u asa ovalle Neuropathy Otalgia, right ear Paroxysmal atrial flutter 01/2021- s/p cardoversion- with excessive alcohol intake- felt to be contributing component. No AC. No recurrence per PCP records 07/29/22- - Recurrence in preop area prior to surgery - sent from ACU to ED- admitted to [facility] 07/29/22-07/30/22 Peripheral arterial disease Severe occlusive disease S/p L common femoral endarterectomy with bovine patch and lithotripsy of SFA and Popliteal arteries Sleep apnea "Mild to moderate"-cpap (has not been using for months) Surgical History Fusion of spine CERVICAL, "HAVE 80% OF MOTION" History of anesthesia reaction WITH BACK SURGERY 2004 - DISORIENTED, PULLED CATHETER OUT ([facility]) History of colonoscopy History of endarterectomy Left Femoral Endarterectomy with Bovine Patch History of esophagogastroduodenoscopy (EGD) History of heart artery stent 2006 or 2007, x1 stent, [place]; f/u asa ovalle History of lumbar surgery X 3 - 2004, 2006, 2019 History of nasal septoplasty History of total knee replacement RT/LEFT (LEFT REVISION) Hx of cataract extraction rt/lt. Hx of transurethral resection of prostate Family History Mother Family history of diabetes mellitus Father Family history of diabetes mellitus Other No family history of adverse response to anesthesia Denies family history of Ovarian cancer Prostate cancer Myocardial infarction Breast cancer Colorectal cancer Social History Smoking Status: Current every day smoker Tobacco Type: Cigarettes Age Started Using Tobacco: 18; Cigarettes Per Day: 10; Second Hand Exposure: Yes ( SMOKES); Do You Dip or Chew Tobacco: No; Hx Alcohol Use: Yes Alcohol type: beer Alcohol type Comment: 6-8 beers Hx Substance Use: No Preferred Language: Chinese Communication Ability: Effective Visual Impairment: No Limitations Manager Application Required: No Beliefs That Will Affect Care: None marital status: Current Living Situation: Spouse Current Living Situation Comment: Lives at home with How many Children do You have: 4 Feels Safe at Home: Yes Childhood Exposure to Second-Hand Smoke: Yes Dental Care, Regularly: Yes Physical Activity Frequency: Does not Exercise Seatbelt Use: always Sunscreen Use: No Assistive Devices: CPAP, Walker and Other Physical Exam Physical Exam: The patient is alert and oriented. Mood and affect appeared normal. He answered all questions appropriately. HEENT: Pupils are equal and reactive to light and accommodation. Extraocular movements are intact. The sclerae are anicteric. Neuro: Cranial nerves intact Neck: Patient's neck is supple. He has palpable carotid pulses bilaterally without bruits on auscultation. There is no evidence of jugular venous distention. The thyroid is not enlarged. Lungs: Clear to auscultation bilaterally. He has good air movement without use of accessory muscles. No rales wheezes or rhonchi. Cardiac: Heart demonstrates a regular rate and rhythm. Normal S1 and S2. No murmurs on examination. Pulses: The patient has palpable radial pulses bilaterally that are equal in intensity Extremities: There was no evidence of hypoperfusion. There is no cyanosis or clubbing. There is no edema. Skin: I did not appreciate any rashes on examination today. Atrial fibrillation Results & Data Vital Signs (Past 12 Hours) Vital Signs Temp Pulse Pulse Resp BP BP Pulse Ox 03/22/23 12:04 36.9 C 61 18 104/54 L 94 03/22/23 07:51 36.4 C L 76 18 148/69 H 96 03/22/23 04:11 36.5 C 77 20 119/62 96 03/22/23 00:50 03/22/23 00:50 86 03/22/23 00:50 36.8 C 98 H 16 112/58 L 95 Pulse Ox O2 Del Method O2 Del Method 03/22/23 12:04 Room Air 03/22/23 07:51 Room Air 03/22/23 04:11 Room Air 03/22/23 00:50 95 Room Air 03/22/23 00:50 03/22/23 00:50 Room Air Laboratory Results Abnormal Lab Results 03/21/23 03/21/23 03/21/23 20:19 Unknown Unknown WBC 8.32 RBC 2.72 L Hgb 9.3 L Hct 28.4 L MCV 104.4 H MCH 34.2 H MCHC 32.7 RDW Std Deviation 57.8 H RDW Coeff of Kvng 14.9 H Plt Count 337 MPV 10.5 Immature Gran % (Auto) 1.9 Neut % (Auto) 62.9 Lymph % (Auto) 20.3 [place] % (Auto) 12.4 Eos % (Auto) 1.7 Baso % (Auto) 0.8 Neut # (Auto) 5.23 Lymph # (Auto) 1.69 [place] # (Auto) 1.03 H Eos # (Auto) 0.14 Baso # (Auto) 0.07 Immature Gran # (Auto) 0.16 Absolute Nucleated RBC 0.02 Nucleated RBC % (auto) 0.2 PT 11.2 INR 1.0 APTT 27.5 PTT Ratio 1.0 Sodium Potassium Chloride Carbon Dioxide Anion Gap BUN Creatinine Est Cr Clr Drug Dosing Est GFR ( Amer) Est GFR (Non-Af Amer) BUN/Creatinine Ratio Glucose POC Glucose Calcium Magnesium Total Bilirubin AST ALT Alkaline Phosphatase Troponin I High Sens Total Protein Albumin Globulin Albumin/Globulin Ratio TSH Digoxin Ethyl Alcohol mg/dL < 10.0 03/21/23 03/21/23 03/22/23 Unknown Unknown 06:07 WBC RBC Hgb Hct MCV MCH MCHC RDW Std Deviation RDW Coeff of Kvng Plt Count MPV Immature Gran % (Auto) Neut % (Auto) Lymph % (Auto) [place] % (Auto) Eos % (Auto) Baso % (Auto) Neut # (Auto) Lymph # (Auto) [place] # (Auto) Eos # (Auto) Baso # (Auto) Immature Gran # (Auto) Absolute Nucleated RBC Nucleated RBC % (auto) PT INR APTT PTT Ratio Sodium 133 L Potassium 3.9 Chloride 100 Carbon Dioxide 24 Anion Gap 9 BUN 14 Creatinine 1.11 Est Cr Clr Drug Dosing 83.3 Est GFR ( Amer) 80.3 Est GFR (Non-Af Amer) 69.3 BUN/Creatinine Ratio 12.6 Glucose 100 H POC Glucose 145 H Calcium 9.3 Magnesium 1.7 Total Bilirubin 0.3 AST 13 ALT 14 Alkaline Phosphatase 69 Troponin I High Sens 12.4 Total Protein 6.8 Albumin 3.8 Globulin 3.0 Albumin/Globulin Ratio 1.3 TSH 2.148 Digoxin 0.5 L Ethyl Alcohol mg/dL 03/22/23 03/22/23 03/22/23 06:10 06:10 11:48 WBC 5.56 RBC 2.46 L Hgb 8.2 L Hct 26.4 L MCV 107.3 H MCH 33.3 MCHC 31.1 L RDW Std Deviation 58.5 H RDW Coeff of Kvng 15.1 H Plt Count 285 MPV 10.7 Immature Gran % (Auto) Neut % (Auto) Lymph % (Auto) [place] % (Auto) Eos % (Auto) Baso % (Auto) Neut # (Auto) Lymph # (Auto) [place] # (Auto) Eos # (Auto) Baso # (Auto) Immature Gran # (Auto) Absolute Nucleated RBC Nucleated RBC % (auto) PT INR APTT PTT Ratio Sodium 140 Potassium 4.5 Chloride 107 Carbon Dioxide 28 Anion Gap 5 BUN 14 Creatinine 0.85 Est Cr Clr Drug Dosing 108.4 Est GFR ( Amer) 106.0 Est GFR (Non-Af Amer) 91.4 BUN/Creatinine Ratio 16.5 Glucose 131 H POC Glucose 150 H Calcium 8.5 L Magnesium 2.2 Total Bilirubin AST ALT Alkaline Phosphatase Troponin I High Sens Total Protein Albumin Globulin Albumin/Globulin Ratio TSH Digoxin Ethyl Alcohol mg/dL PG Care Time/CCT Total # of Minutes Spent Total Time Spent with Patient: Total time spent is greater than 50% in coordination of care (as documented) at patient's floor/unit and/or counseling patient: Coding Level of Care Code 69375 IN/OBS CONSULT LVL 4,60M Diagnoses Atrial flutter with rapid ventricular response I48.92 CAD in lummi artery I25.10 Peripheral arterial disease I73.9 Ectopic atrial rhythm I49.1
--- NOTE | 2023-03-22 18:18 | Billing Data ---
Date of Service March 22, 2023 Coding Level of Care Code 48206 SUB INP/OBS CARE
[2023-03-22] MEDS ORDERED: DIGOXIN 0.125 MG TAB PO SCH (21:00)
[2023-03-22] MEDS ORDERED: LORazepam 1 MG TAB PO PRN (22:32)
[2023-03-23 06:49] LABS: Hematocrit (blood only) 25.8 % (42.0-52.0); Hemoglobin 8.4 g/dl (14.0-18.0); Mean Corpuscular Hemoglobin 34.7 pg (25.0-34.0); Mean Corpuscular Hgb Conc 32.6 g/dL (32.0-36.0); Mean Corpuscular Volume 106.6 fL (80.0-100.0); Mean Platelet Volume 10.8 fL (9.4-12.4); Platelet Count 297 K/uL (130-400); RDW Coefficient of Variation 15.2 % (11.5-14.5); RDW Standard Deviation 59.4 fL (36.4-46.3); Red Blood Count 2.42 M/uL (4.70-6.10); White Blood Count 5.82 K/ul (4.8-10.8)
--- NOTE | 2023-03-23 07:19 | Hospitalist Progress Note ---
Date of Service March 23, 2023 Assessment & Plan (1) Atrial fibrillation with rapid ventricular response: Plan: -AF w/ RVR likely multifactorial in etiology- alcohol abuse, sleep apnea, electrolyte deficiencies, subtherapeutic digoxin level -S/p 3L fluid repletion, digoxin 125 mcg, magnesium 2 g IV, diltiazem infusion in ER -Continue metoprolol 100 mg BID, digoxin 125 mcg HS, diltiazem infusion ongoing -GLADYS done on 02/28 without atrial appendage thrombus identified -Maintain K > 4, Mg > 2 -Telemetry monitoring, converted back to sinus rhythm on 03/22. -Cardiology consulted (2) Hypotension: Plan: -Noted borderline hypotension to 90s/60s after diltiazem infusion and then to 80s/50s while on diltiazem infusion -S/p 3L fluid repletion, started on maintenance IVF with LR -BP improving with fluid repletion -Holding home lisinopril, tamsulosin -Will continue diltiazem, metoprolol for rate control (3) Hyponatremia: Plan: -Mild hyponatremia with Na 133 on admission -Likely beer potomania -Resolved (4) Hypomagnesemia: Plan: -Chronic hypomagnesemia, likely contributory to AF w/ RVR -Continue home magnesium PO supplementation -S/p Mg 2 g IV in ER -Maintain Mg > 4 given CAD -Resolved, will continue to monitor magnesium in daily labs. (5) Alcohol use: Plan: -Ongoing significant alcohol abuse, likely contributory to AF w/ RVR -Blood alcohol level normal on admission -Pt not currently in alcohol intoxication, but will continue folate and add thiamine, MVI -Suspect he will need AWSS protocol during hospitalization (6) Macrocytic anemia: Plan: -Hgb 9.3 on admission, MCV 104 -Likely due to alcohol abuse, folate deficiency -Continue folic acid repletion -Monitor CBC (7) CAD in circle artery: Plan: -Continue Plavix, metoprolol -Not on statin due to intolerance -Holding lisinopril for hypotension -Stable, no ACS at present suspected (8) Diabetes mellitus, type 2: Plan: -Holding metformin, glimepiride -Lantus 5u BID, SSI -Continue duloxetine, gabapentin for neuropathy (9) Anxiety and depression: Plan: -Continue duloxetine (10) Hypertension: Plan: -Chronic hypertension on multiple medications -Continue diltiazem infusion, metoprolol with hold parameters -Holding lisinopril and Flomax -BP stable, improving with fluid repletion (11) Sleep apnea: Plan: -History of JJ noted, may be contributory to AF -CPAP Hs (12) BPH (benign prostatic hyperplasia): Plan: -Holding Flomax for hypotension (13) GERD (gastroesophageal reflux disease): Plan: -Continue pantoprazole Plan FENGI: NPO in case of cardioversion Code status: Full DVT prophylaxis: Eliquis Isolation: None Disposition: PCU Admission and Anticipated Discharge Date Admission Date: March 21, 2023 Results & Data Results & Data Vital Signs (Past 12 Hours) Vital Signs Temp Pulse Pulse Resp BP Pulse Ox O2 Del Method 03/23/23 03:16 36.8 C 68 18 94/55 L 96 Room Air 03/22/23 22:51 36.5 C 65 20 104/65 98 Room Air 03/22/23 21:03 77 03/22/23 19:52 36.7 C 77 18 114/59 L 94 Room Air (10) Hypertension Hypertension type: primary hypertension Qualified Code(s): I10 - Essential (primary) hypertension
[2023-03-23 07:23] LABS: Albumin Globulin Ratio 1.3 (0.9-2); Albumin Level 3.6 gm/dl (3.4-5.0); BUN Creatinine Ratio 14.9 (10-20); Bilirubin,Total 0.2 mg/dl (0.2-1.0); Calcium 8.9 mg/dl (8.6-10.3); Creatinine Clr Calc Pharmacy 123.5 ml/min; Est GFR (African American) 112.2 ml/min; Est GFR (Non-African American) 96.8 ml/min; Globulin 2.7 gm/dl (2.5-4.0); Magnesium 2.1 mg/dl (1.7-2.4); Potassium 4.4 mmol/L (3.5-5.1); Total Protein 6.3 gm/dl (6.0-8.3)
[2023-03-23] MEDS: LANTUS PER UNIT CHARGE SQ SCH (09:05)
[2023-03-23] MEDS: THIAMINE HCL 100 MG TAB PO SCH (09:06)
[2023-03-23] MEDS: APIXABAN 5 MG TABLET PO SCH (09:06)
[2023-03-23] MEDS: GABAPENTIN 400 MG CAP PO SCH (09:06)
[2023-03-23] MEDS: INSULIN ASPART PER UNIT CHARGE SC SCH (09:06)
[2023-03-23] MEDS: METOPROLOL TARTRATE 100 MG TAB PO SCH (09:06)
[2023-03-23] MEDS: MAGNESIUM OXIDE 400 MG TAB PO SCH (09:07)
[2023-03-23] MEDS: CLOPIDOGREL BISULFATE 75 MG TAB PO SCH (09:07)
[2023-03-23] MEDS: PANTOprazole 40 MG TAB PO SCH (09:07)
[2023-03-23] MEDS: DULoxetine HCL 60 MG CAP PO SCH (09:07)
[2023-03-23] MEDS: FOLIC ACID 400 MCG TAB PO SCH (09:07)
--- NOTE | 2023-03-23 10:34 | Discharge Summary ---
Date of Service March 23, 2023 Admission HPI Per Admitting Provider Pt is 63 yo M with PMH pAF on Eliquis requiring cardioversion in the past, alcohol abuse, CAD s/p PCI with SAE, chronic macrocytic anemia, DM2, GERD, anxiety, chronic back pain, HTN, JJ presenting with lightheadedness. Pt was recently admitted 03/11-03/13 for atrial fibrillation w/ RVR which resolved with diltiazem. Metoprolol 50 mg BID increased to 100 mg BID on discharge. Initially felt well though today, pt reports onset of palpitations in afternoon with dizziness and lightheadedness causing him to nearly fall. He denied having any overt chest pain at the time. Pt looked at his wrist watch which indicated tachycardia and he came to ER for further evaluation. Pt arrived to ER in AF w/ RVR to HR 140s, BP 90s/60s (after initiation of diltiazem). Initial evaluation significant for Hgb 9.3, Na 133, K 3.9, Mg 1.7, negative troponin, normal TSH, digoxin level 0.5. CXR negative. EKG demonstrating AF w/ RVR and rate [address] segment abnormalities without overt elevations/depressions. ER interventions include 2.5L NSS repletion, 0.5L LR bolus, magnesium 2 g IV, Ativan 1 mg IV, KCl 10 meq, digoxin 125 mcg IV, diltiazem infusion. Pt sleeping on evaluation. Upon awakening, he reported feeling somewhat better but still having palpitations. States he has been adherent to all medications including Eliquis since discharge. Admission Exam Per Admitting Provider General: sleeping, no acute distress HEENT: PERRL, conjunctivae clear without injection, anicteric sclerae, moist mucous membranes Neck: supple, trachea midline, no thyromegaly, no JVD, no cervical lymphadenopathy CV: Irregular rhythm with tachycardia, normal S1 and S2, no murmurs Resp: CTAB, no increased work of breathing, no crackles or wheezes Abd: Soft, nontender, nondistended, no guarding or rebound, no hepatosplenomegaly Neuro: AOx3 though drowsy, no focal motor or sensory deficits Skin: no rashes or lesions, warm and dry Ext: no LE peripheral edema Principal Diagnosis . Atrial flutter with RVR Discharge Exam Constitutional: well-appearing, no acute distress HEENT: NCAT, no conjunctival injection CV: regular rhythm, no murmur appreciated, extremities well-perfused, no LE edema Resp: CTABL, no wheezes/rales/rhonchi appreciated, no increased work of breathing GI: soft, nondistended, nontender, BS normoactive MSK: no gross deformities appreciated Skin: warm, dry, no rash appreciated Neuro: alert, oriented, no focal neurologic deficit appreciated Discharge Data Allergies Allergy/AdvReac Type Severity Reaction Status Date / Time latex Allergy Mild Rash Verified 03/11/23 20:06 Penicillins Allergy Mild Rash Verified 03/11/23 20:06 gemfibrozil AdvReac Intermediate BODY ACHES Verified 03/11/23 20:06 Oulqanu-HWW-UaN Reductase AdvReac Intermediate body aches Verified 03/11/23 20:06 Inhibitor [Oallqqn-Dae-Ggg Reductase Inhibitor] adhesive AdvReac Mild Rash Verified 03/11/23 20:06 NSAIDS (Non-Steroidal AdvReac Unknown TOLD NOT Verified 03/11/23 20:06 Anti-Inflamma TO TAKE - HX STOMACH ULCER Consultations 03/21/23 21:59 ED Decision to Admit Stat 03/22/23 00:40 Consult Cardiology Routine Ordered Studies Chest X-Ray 03/21/23 19:11 XR chest 1V portable HISTORY: 63 years-old Male Dysrhythmia COMPARISON: 03/11/2023 TECHNIQUE: AP view of the chest FINDINGS: Cardiac silhouette is enlarged. No pneumothorax, pleural effusion, airspace consolidation or pulmonary edema. Degenerative changes of the shoulders and spine. Cervical spinal fusion hardware. IMPRESSION: No acute process. ACT 112: Negative or not required by law. The above report was generated using voice recognition software. It may contain grammatical, syntax or spelling errors. Electronically signed by: Juan Cid M.D. 03/21/2023 9:12 PM Hospital Course (1) Atrial fibrillation with rapid ventricular response: (2) Hypotension: (3) Hyponatremia: (4) Hypomagnesemia: (5) Alcohol use: (6) Macrocytic anemia: (7) CAD in [place] artery: (8) Diabetes mellitus, type 2: (9) Anxiety and depression: (10) Hypertension: (11) Sleep apnea: (12) BPH (benign prostatic hyperplasia): (13) GERD (gastroesophageal reflux disease): Plan #Atrial flutter with rapid ventricular response: -AF w/ RVR likely multifactorial in etiology- alcohol abuse, sleep apnea, electrolyte deficiencies, subtherapeutic digoxin level -S/p 3L fluid repletion, digoxin 125 mcg, magnesium 2 g IV, diltiazem infusion in ER -Continue metoprolol 100 mg BID, digoxin 125 mcg HS, diltiazem infusion ongoing -GLADYS done on 02/28 without atrial appendage thrombus identified -Maintain K > 4, Mg > 2 -Telemetry monitoring, converted back to sinus rhythm on 03/22. -Cardiology consulted -start dronedarone 400 mg twice daily -Discontinue diltiazem -Discontinue digoxin -Continue metoprolol tartrate 50 mg twice daily -Full cardiac recommendations were received after discharge. Patient's paperwork may reflect a difference in above. Called patient after discharge and updated his discharge instructions as stated above. #Hypotension -Noted borderline hypotension to 90s/60s after diltiazem infusion and then to 80s/50s while on diltiazem infusion -S/p 3L fluid repletion, started on maintenance IVF with LR -BP improving with fluid repletion -Held held home lisinopril, tamsulosin on admission. #Hyponatremia -Mild hyponatremia with Na 133 on admission -Likely beer potomania -Resolved #Hypomagnesemia -Chronic hypomagnesemia, likely contributory to AF w/ RVR -Continue home magnesium PO supplementation -S/p Mg 2 g IV in ER -Maintain Mg > 4 given CAD -Resolved #Alcohol use -Ongoing significant alcohol abuse, likely contributory to AF w/ RVR -Blood alcohol level normal on admission -Pt not currently in alcohol intoxication, but will continue folate and add thiamine, MVI -Suspect he will need AWSS protocol during hospitalization #Macrocytic anemia -Hgb 9.3 on admission, MCV 104 -Likely due to alcohol abuse, folate deficiency -Continue folic acid repletion #CAD in [place] artery -Continue Plavix, metoprolol -Not on statin due to intolerance -Holding lisinopril for hypotension -Stable, no ACS at present suspected #Diabetes mellitus, type 2 -Held metformin, glimepiride during admission. -Lantus 5u BID, SSI -Continue duloxetine, gabapentin for neuropathy #Anxiety and depression -Continue duloxetine #Hypertension -Chronic hypertension on multiple medications -Continue diltiazem infusion, metoprolol with hold parameters -Holding lisinopril and Flomax -BP stable, improving with fluid repletion #Sleep apnea -History of JJ noted, may be contributory to AF -CPAP Hs #BPH (benign prostatic hyperplasia) -Holding Flomax for hypotension #GERD (gastroesophageal reflux disease) -Continue pantoprazole Total Time Total Time Spent Total Time Spent (In Minutes): <30 Discharge Plan Discharge Items Patient Disposition: Home - Self-Care Reason For Visit: AF W/ RVR Discharge Diagnosis: Atrial flutter with rapid ventricular response Activity: Resume your previous activity Non-emergency contact: Primary Care Provider and Certified Vehicle Fire Investigator Call non-emergency contact if: you have any medication questions, your pain is unusual for you and your temperature is above 101.5 Follow-up/Referrals: Nitish Lam MD [Primary Care Provider] - Diet: Carb Consistent or DM2 and Heart Healthy Addtl Attending Provider Instructions: You were admitted to the hospital for atrial flutter with rapid ventricular response. You received medications and converted back to a normal heart rhythm, also known as sinus rhythm. A discharge summary will be sent to your primary care physician to ensure continuity of care. Please bring this discharge summary with you to your next office appointment so that your provider can review it at that time. Follow-up appointments: * Make a follow-up appointment with your PCP within the next week. It is very important that you follow up with them shortly after discharge from the hospital. * You had a cardiology appointment with Dr. Dhaliwal (phlebotomy director) on 03/25/2023 at 3:30 PM. It is very important that you keep this appointment. If you are unable to make this appointment please call their office to reschedule this appointment. * Keep all your follow-up appointments as already scheduled. If you cannot make an appointment, notify your provider. Medications: Your medication list has been reviewed and reconciled upon discharge to ensure accuracy and continuity of care. An updated list of all your medications is included with your hospital discharge paperwork. Please review this list closely, and make note of any changes. * We sent a new medication called Multaq to your pharmacy. Take Multaq 400 mg twice a day. * We sent a new medication called thiamine to your pharmacy. Take thiamine 100 mg twice a day. * Please stop your digoxin at this time. * If you have any issues filling these prescriptions, please call [phone] and ask to leave a message for Dr. Del Real. * Take your medications as instructed; do not skip a dose of your medicines. Make sure all of your doctors know every medicine you are taking (including asrt-ccg-vchywip medicines, vitamins, and supplements). Call your primary care provider before taking any new medicines (including over- the-counter medicines, vitamins, and supplements), because some of these may interact with your current medications, or may make your symptoms worse. Tell your primary care provider if you cannot afford your medications. CONTACT YOUR PRIMARY CARE PROVIDER if you experience any of the following: * Worsening of symptoms * Fever, chills, or fatigue * Difficulty following your treatment plan, or difficulty taking medications CALL 911 OR GO TO THE EMERGENCY DEPARTMENT if you experience any of the following: * Sudden, severe abdominal pain or nausea/vomiting * Severe chest pain, or chest pain that radiates (moves) to your jaw or arm * Sudden, severe shortness of breath or difficulty breathing Thank you for allowing us to participate in your care. Pending Studies at Discharge: No Stand-Alone Forms: My [facility], Smoking Cessation Medications and DC Order Prescriptions: New thiamine HCl (vitamin B1) 100 mg Tablet 100 mg PO BID 30 Days Qty: 60 0RF Multaq 400 mg tablet 400 mg PO BID Qty: 30 0RF Rx Instructions: must administer with a meal/food Continued metformin 500 mg tablet extended release 24 hr 2,000 mg PO QAM Qty: 360 3RF duloxetine 60 mg capsule,delayed release(DR/EC) 60 mg PO QAM Qty: 90 3RF gabapentin 400 mg capsule 800 mg PO TID Qty: 180 5RF pantoprazole 40 mg tablet,delayed release (DR/EC) 40 mg PO QAM Qty: 90 1RF Eliquis 5 mg tablet 5 mg PO BID Qty: 180 3RF tramadol 50 mg tablet 100 mg PO BID Qty: 120 0RF lisinopril 40 mg tablet 40 mg PO QAM Qty: 90 3RF glimepiride 1 mg tablet 1 mg PO QAM Qty: 90 3RF Praluent Pen 150 mg/mL pen injector 150 mg subcut Q14D Qty: 2 11RF Rx Instructions: inject into abdomen, thigh, or upper arm (deltoid muscle); rotate sites tamsulosin 0.4 mg capsule 0.4 mg PO DAILY Qty: 90 3RF cholecalciferol (vitamin D3) 125 mcg (5,000 unit) capsule 125 mcg PO QAM acetaminophen 650 mg Tablet Extended Release 650 mg PO UD PRN (Reason: ARTHRITIS PAIN) Patient Comments: takes at least 2 tablets every day. cyanocobalamin (vitamin B-12) [Vitamin B-12] 1,000 mcg Tablet 1,000 mcg PO QAM clopidogrel [Plavix] 75 mg tablet 75 mg PO DAILY Qty: 30 0RF metoprolol tartrate 100 mg tablet 100 mg PO BID Qty: 60 0RF magnesium oxide 400 mg magnesium capsule 400 mg PO BID Qty: 60 0RF folic acid 400 mcg Tablet 0.4 mg PO QAM diltiazem HCl 240 mg capsule,extended release 24hr 240 mg PO HS Discontinued digoxin 125 mcg (0.125 mg) tablet 125 mcg PO HS Discharge Orders: Discharge Order (Routine); Ordered 03/23/23 Ordered By: Kevon Del Real Admission Data Admit Date/Time: 03/21/23 22:58 Attending Provider: Amandeep Salamanca Admit Provider: Francine Whelan Primary Care Provider: Nitish Lam Other Providers: Orville Conklin ; Darren Nance ; Chi Guido ; Bandar Bearden ; Tong Iniguez ; Stephen Martino ; Alec Dhaliwal Jr ; Armand Renae ; Dot Funes ; Annette Holder ; Nitish Smith ; Nitish Casillas ; Aleks Kauffman ; Mckenzie Villafuerte ; Bernice Wright ; Harry Cruz ; Saad Hyde ; Tong Cabral V. ; James Marino Other Interventions: Discharge Summary Assessment (RN) Last Done: 03/23/23 11:22 Supervising Physician Co-Signing Physician Notes I personally examined the patient and verified all gerber points of history and exam, discussed case, and agree with decision making with Dr Del Real Feels good, feels up to going home. Converted to sinus rhythm.. Vitals noted, in general he is awake and alert pleasant no distress. HEENT normocephalic atraumatic mucous membranes moist. Breathing unlabored no accessory muscle use good effort. Skin shows no rashes no pallor or icterus. Atrial flutternow rate controlled. Cardiology notes he will have a need for rhythm management, and given his prior track record certainly seems reasonable. He will pursue this at [place]. Alcohol use and sleep apnea may be contributing to the refractory difficulties with controlling his rhythms- we discussed this, and he has just recently started using his CPAP again, emphasized importance and applauded his efforts, and he has started to try to cut down on drinkingagain emphasized importance and applauded his efforts. Appreciate cardiology input. Otherwise as above
--- NOTE | 2023-03-23 11:40 | Cardiology Progress Note ---
Date of Service March 23, 2023 Assessment & Plan (1) Atrial flutter with rapid ventricular response: (2) CAD in [place] artery: (3) Peripheral arterial disease: (4) Ectopic atrial rhythm: Plan 1. Atrial flutter: As has been his pattern, he spontaneously converted back to a sinus rhythm. Overall rate control seems adequate yesterday with discontinuation of diltiazem. Given the frequent recurrence, would seem reasonable to initiate antiarrhythmic therapy. The patient was not interested in staying in the hospital for few days to have loading of sotalol or dofetilide. I think we will try dronedarone given its ease of use. Perhaps less efficacious. However, he does have an appointment to discuss catheter based therapy later this week and hopefully he will only need the medication for few weeks. I think he would be fine for discharge today Will start dronedarone 400 mg twice daily Discontinue diltiazem Discontinue digoxin Continue metoprolol tartrate 50 mg twice daily (patient had significant dizziness with higher doses) 2. Ectopic atrial rhythm: Documented in the past. No overt symptoms. Adequate rates. 3. Coronary disease: No recent symptoms. Continue aggressive secondary prevention. Admission and Anticipated Discharge Date Admission Date: March 21, 2023 Subjective This morning patient claimed he feeling well. He was told that he converted back to sinus rhythm. He did not appear to be overtly aware. He has been ambulatory. No current dyspnea or chest pain. No sense of palpitation. No significant dizziness. Review of Systems Review of Systems: Per HPI Physical Exam Physical Exam: The patient is alert and oriented. Mood and affect appeared normal. He answered all questions appropriately. HEENT: Pupils are equal and reactive to light and accommodation. Extraocular movements are intact. The sclerae are anicteric. Neuro: Cranial nerves intact Lungs: Clear to auscultation bilaterally. He has good air movement without use of accessory muscles. No rales wheezes or rhonchi. Cardiac: Heart demonstrates a regular rate and rhythm. Normal S1 and S2. No murmurs on examination. Extremities: There was no evidence of hypoperfusion. There is no cyanosis or clubbing. Skin: I did not appreciate any rashes on examination today. Results & Data Vital Signs (Past 12 Hours) Vital Signs Temp Pulse Resp BP BP Pulse Ox O2 Del Method 03/23/23 11:22 36.9 C 78 18 162/73 H 112/58 L 97 03/23/23 07:47 36.9 C 78 18 162/73 H 97 Room Air 03/23/23 03:16 36.8 C 68 18 94/55 L 96 Room Air Laboratory Results Abnormal Lab Results 03/22/23 03/22/23 03/22/23 11:48 16:46 20:19 WBC RBC Hgb Hct MCV MCH MCHC RDW Std Deviation RDW Coeff of Kvng Plt Count MPV Sodium Potassium Chloride Carbon Dioxide Anion Gap BUN Creatinine Est Cr Clr Drug Dosing Est GFR ( Amer) Est GFR (Non-Af Amer) BUN/Creatinine Ratio Glucose POC Glucose 150 H 109 H 106 H Calcium Magnesium Total Bilirubin AST ALT Alkaline Phosphatase Total Protein Albumin Globulin Albumin/Globulin Ratio 03/23/23 03/23/23 03/23/23 05:26 05:26 07:31 WBC 5.82 RBC 2.42 L Hgb 8.4 L Hct 25.8 L MCV 106.6 H MCH 34.7 H MCHC 32.6 RDW Std Deviation 59.4 H RDW Coeff of Kvng 15.2 H Plt Count 297 MPV 10.8 Sodium 139 Potassium 4.4 Chloride 106 Carbon Dioxide 28 Anion Gap 5 BUN 11 Creatinine 0.74 Est Cr Clr Drug Dosing 123.5 Est GFR ( Amer) 112.2 Est GFR (Non-Af Amer) 96.8 BUN/Creatinine Ratio 14.9 Glucose 115 H POC Glucose 136 H Calcium 8.9 Magnesium 2.1 Total Bilirubin 0.2 AST 11 L ALT 11 Alkaline Phosphatase 59 Total Protein 6.3 Albumin 3.6 Globulin 2.7 Albumin/Globulin Ratio 1.3 PG Care Time/CCT Total # of Minutes Spent Total Time Spent with Patient: Total time spent is greater than 50% in coordination of care (as documented) at patient's floor/unit and/or counseling patient: Coding Level of Care Code 01889 SUB INP/OBS CARE 2/35MIN Diagnoses Atrial flutter with rapid ventricular response I48.92 CAD in [place] artery I25.10 Peripheral arterial disease I73.9 Ectopic atrial rhythm I49.1
--- NOTE | 2023-03-23 19:46 | Billing Data ---
Date of Service March 23, 2023 Coding Level of Care Code 30955 IN/OBS DISCH 30 MIN/LESS
[2023-03-23] MEDS ORDERED: METOPROLOL TARTRATE 50 MG TAB PO SCH (21:00)
== END 2023-03-23 11:53 | disposition home or self-care (01) | DRG 309 ==
LOC: ED 18:54 → 2S 22:58 → SUATTDRO 22:58 → 2S 23:56
DX: I48.0 Paroxysmal atrial fibrillation; K21.9 Gastro-esophageal reflux disease without esophagitis; Z88.6 Allergy status to analgesic agent; Z83.3 Family history of diabetes mellitus; Z91.040 Latex allergy status; Z95.5 Presence of coronary angioplasty implant and graft; I48.92 Unspecified atrial flutter; I25.10 Atherosclerotic heart disease of native coronary artery without angina pectoris; F10.10 Alcohol abuse, uncomplicated; E11.40 Type 2 diabetes mellitus with diabetic neuropathy, unspecified; Z79.01 Long term (current) use of anticoagulants; G47.30 Sleep apnea, unspecified; F17.210 Nicotine dependence, cigarettes, uncomplicated; I10 Essential (primary) hypertension; E83.42 Hypomagnesemia; E87.1 Hypo-osmolality and hyponatremia; Z86.16 Personal history of COVID-19; E11.51 Type 2 diabetes mellitus with diabetic peripheral angiopathy without gangrene; D53.9 Nutritional anemia, unspecified; Z98.1 Arthrodesis status; N40.0 Benign prostatic hyperplasia without lower urinary tract symptoms; Z79.84 Long term (current) use of oral hypoglycemic drugs; I25.2 Old myocardial infarction

== ENCOUNTER 2023-05-28 06:55 | Inpatient (IN) ==
--- NOTE | 2023-05-21 09:16 | Anesthesiology Consultation ---
Date of Service May 21, 2023 Assessment & Plan (1) Encounter for pre-operative examination: Plan - check BSG, CBC with diff, BMP, coags, type and screen and EKG STAT am DOS if not completed prior to surgery. Per Sam with surgeon's office, they are going to call patient to remind him to have testing done prior to surgery. - PCP office visit 04/29/23 [place]: "...Medically complex patient here today for routine follow up. Reviewed his multiple problems as noted in HPI...cold sensation in the right lower leg from about the ankle down whenever his leg is elevated or he lays on his right side. This is concerning for decreased blood flow. He is scheduled to see Dr. Garcia next week and plans to follow up with him. He is to have imaging that day as well...increased neuropathy symptoms in his feet as well with hypersensitivity rather than loss of sensation. He is already on Cymbalta 60mg daily and gabapentin 800mg TID. He called neurology to establish with someone there and I advised that is reasonable. His implanted ne rve stimulator does not affect his neuropathy symptoms. Says he only gets benefits down to the thighs from that...cardiac ablation for A-flutter in 03/2023 and states he has had no recurrence of the arrhythmia since then. He remains on long-term Eliquis 5mg BID as well as plavix. Will plan to repeat carotid u/s. Last done 11/2021...has decreased his ETOH consumption to 3-4 beers per day. I recommended cessation altogether due to blood dyscrasias seeming to stem from the alcohol...due to have repeat labs for hematology prior to his next appointment with them in early May,. Did receive 2 units of IV iron from hematology in February,..." - I contacted patient who confirmed that ablation was done 04/09/23, states dizziness and lightheadedness have resolved since ablation; carotid imaging is scheduled after surgery 06/03/23. Case discussed in detail with Dr. Goins who advised patient is acceptable to proceed as scheduled prior to carotid imaging. - cardiology office visit 04/09/23: "...EPS/possible ablation for symptomatic AFL..." - Per heading machine operator on 05/15/2023: No known infectious disease contacts, current infectious disease symptoms in past 10 days or COVID positive test result in the past 30 days. Chart Review Chart Review: Acceptable Risk for Surgery (pending anesthesiologist evaluation am DOS) and Patient NOT seen in Pre Admission Testing History Surgery Operation Date: 05/28/23 07:30 Proposed Procedures p Right Common Femoral Artery Endarterectomy with Patch - Tyrese Garcia MD Height/Weight Height: 5 ft 10 in Weight: 107.955 kg Allergies Allergy/AdvReac Type Severity Reaction Status Date / Time latex Allergy Mild Rash Verified 05/15/23 13:03 Penicillins Allergy Mild Rash Verified 05/15/23 13:03 dronedarone AdvReac Intermediate Fatigued Verified 05/15/23 13:03 gemfibrozil AdvReac Intermediate BODY ACHES Verified 05/15/23 13:03 Nrzjurn-OSM-DqM Reductase AdvReac Intermediate body aches Verified 05/15/23 13:03 Inhibitor [Xflicgj-Wra-Bbz Reductase Inhibitor] adhesive AdvReac Mild Rash Verified 05/15/23 13:03 NSAIDS (Non-Steroidal AdvReac Unknown TOLD NOT Verified 05/15/23 13:03 Anti-Inflamma TO TAKE - HX STOMACH ULCER Medications Home Medications Medication Instructions Recorded Confirmed Last Taken acetaminophen 650 mg 650 mg PO UD PRN ARTHRITIS PAIN 12/06/20 05/15/23 01/20/23 17:00 tablet,extended release folic acid 400 mcg tablet 0.4 mg PO QAM 04/23/22 05/15/23 03/21/23 08:00 metformin 500 mg tablet,extended 2,000 mg (4 x 500 mg) PO QAM #360 08/13/22 05/15/23 03/21/23 08:00 release 24 hr tabs cholecalciferol (vitamin D3) 125 125 mcg PO QAM 08/14/22 05/15/23 01/22/23 06:15 mcg (5,000 unit) capsule cyanocobalamin (vitamin B-12) 1,000 mcg PO QAM 08/26/22 05/15/23 01/22/23 06:15 1,000 mcg tablet (Vitamin B-12) duloxetine 60 mg capsule,delayed 60 mg PO QAM #90 caps 09/11/22 05/15/23 03/21/23 08:00 release gabapentin 400 mg capsule 800 mg (2 x 400 mg) PO TID #180 12/16/22 05/15/23 03/21/23 18:30 caps pantoprazole 40 mg tablet,delayed 40 mg PO QAM #90 tabs 01/13/23 05/15/23 03/21/23 08:00 release clopidogrel 75 mg tablet (Plavix) 75 mg PO DAILY #30 tabs 01/22/23 05/15/23 03/21/23 08:00 apixaban 5 mg tablet (Eliquis) 5 mg PO BID #180 tabs 01/29/23 05/15/23 Unknown glimepiride 1 mg tablet 1 mg PO QAM #90 tabs 02/03/23 05/15/23 03/21/23 09:00 lisinopril 40 mg tablet 40 mg PO QAM #90 tabs 02/03/23 05/15/23 03/21/23 08:00 alirocumab 150 mg/mL subcutaneous 150 mg subcut Q14D #2 mL 02/05/23 05/15/23 03/14/23 pen injector (Praluent Pen) tamsulosin 0.4 mg capsule 0.4 mg PO DAILY #90 caps 03/06/23 05/15/23 03/21/23 magnesium oxide 400 mg PO BID #60 caps 03/13/23 05/15/23 03/21/23 18:30 metoprolol tartrate 100 mg tablet 50 mg PO BID 03/25/23 05/15/23 Unknown tramadol 50 mg tablet 100 mg (2 x 50 mg) PO BID #120 tabs 04/11/23 05/15/23 Unknown doxepin 10 mg capsule 10 mg PO DAILY #30 caps 05/15/23 05/15/23 Unknown Past Medical History Medical History (Updated 05/21/23 @ 09:13 by Kelley Roldan PA-C) Presence of neurostimulator Hx of atrial flutter ablation done [place] [facility] [place] neuropathy History of cardioversion 01/2021, [facility]; F/U DR. [place], [place] Hx of transesophageal echocardiography (GLADYS) for monitoring 01/2021, [facility] Chronic anemia Neuropathy Peripheral arterial disease Severe occlusive disease S/p L common femoral endarterectomy with bovine patch and lithotripsy of SFA and Popliteal arteries , status post bilateral common iliac artery [facility] and stents. History of chronic back pain Neurogenic claudication due to lumbar stenosis History of COVID-19 03/18/2022>resolved History of anxiety Paroxysmal atrial flutter 01/2021- s/p cardoversion- with excessive alcohol intake- felt to be contributing component. No AC. No recurrence per PCP records 07/29/22- - Recurrence in preop area prior to surgery - sent from ACU to ED- admitted to [facility] 07/29/22-07/30/22 Alcohol abuse Pt admits to >4 beers daily Bilateral carotid artery stenosis Per 11/2021 Carotid Doppler: 50-69% stenosis of right ICA, less than 50% stenosis of left ICA, greater than 50% stenosis of right ECA Antegrade flow in both vertebral arteries CAD in [place] artery s/p LAD stent x2 () History of gastric ulcer No recent issues Degenerative disc disease GERD (gastroesophageal reflux disease) Well controlled and stable Diabetes mellitus, type 2 NIDDM Hypertension Hyperlipidemia Sleep apnea "Mild to moderate"-cpap has not been using recently due to getting up multiple times per night Myocardial infarction Anterolateral [place]- 2008, [place], had cardiac cath; f/u asa ovalle Past Family History Family History Mother Family history of diabetes mellitus Father Family history of diabetes mellitus Other No family history of adverse response to anesthesia Denies family history of Ovarian cancer Prostate cancer Myocardial infarction Breast cancer Colorectal cancer Past Surgical History Surgical History History of cardiac radiofrequency ablation 04/09/2023 [facility] [place] S/P insertion of iliac artery stent History of endarterectomy Left Femoral Endarterectomy with Bovine Patch Hx of cataract extraction rt/lt. History of anesthesia reaction WITH BACK SURGERY 2004 - DISORIENTED, PULLED CATHETER OUT ([facility]) Fusion of spine CERVICAL, "HAVE 80% OF MOTION" History of lumbar surgery X 3 - 2004, 2006, 2019 History of total knee replacement RT/LEFT (LEFT REVISION) Hx of transurethral resection of prostate History of esophagogastroduodenoscopy (EGD) History of colonoscopy History of nasal septoplasty History of heart artery stent 2006 or 2007, x1 stent, [place]; f/u asa ovalle Social History Smoking Status: Current every day smoker tobacco type: cigarettes Smoking cigarettes per day: 10 PER DAY - ADVISED Do You Dip or Chew Tobacco: Yes (ADVISED) Hx Alcohol Use: Yes Alcohol type: beer alcohol intake frequency: 3 or more drinks per day Hx Substance Use: No substance use type: does not use Testing Chest X-Ray Date: 03/21/23 *1view* No acute process. Echocardiogram Date: 02/28/23 GLADYS: no thrombus is detected in the left atrial appendage Transthoracic echo 02/17/21 EF 50-55% No regional wall motion abnormalities Moderate cLVH No significant valvular abnormalities Other Testing Chest CTA 03/11/23 1. No pulmonary embolism. 2. Normal caliber aorta. No dissection. Carotid doppler 12/06/21 1. 50-69% stenosis right ICA. 2. < 50% stenosis left ICA. 3. > 50% stenosis of the right external carotid artery.
[~2023-05-28 06:55] MED LIST changes: -ESMOLOL HCL INJ 10 MG/ML 10ML VIAL IV ONE; +LACTATED RINGER'S 1,000 ML BAG IV SCH; -SODIUM CHLORIDE 0.9% 1000ML 1,000 ML IV SCH
[2023-05-28] MEDS ORDERED: ONDANSETRON INJ 2 MG/ML 2 ML VIAL IV PRN ×2 (07:03→12:45)
[2023-05-28] MEDS ORDERED: ATROPINE SULFATE 0.1 MG/ML 10ML SYR IV PRN (07:03)
[2023-05-28] MEDS ORDERED: BUPIVACAINE 0.5 % 5 MG/1 ML MPF 30ML VIAL ONE (07:06)
[2023-05-28] MEDS ORDERED: HEPARIN (PORCINE) 1000 UNIT/ML 10 ML (CATH LAB USE ONLY) ONE (07:06)
[2023-05-28] MEDS ORDERED: PAPAVERINE HCL INJ 30 MG/ML 2 ML VIAL ONE (07:06)
[2023-05-28] MEDS ORDERED: GELATIN SPONGE SZ 100 ONE (07:07)
[2023-05-28] MEDS ORDERED: THROMBIN FOR SOLN 20000 UNIT KIT ONE (07:07)
[2023-05-28] MEDS ORDERED: LIDOCAINE 1% LOCAL 20 ML VIAL ONE (07:07)
[2023-05-28] MEDS ORDERED: ceFAZolin 330 MG/ML 1 GM VIAL ONE (07:07)
[2023-05-28] MEDS ORDERED: MIDAZOLAM HCL 1 MG/ML 2ML VIAL ONE (07:19)
[2023-05-28] MEDS ORDERED: fentaNYL citrate PF 100 MCG/2 ML VIAL ONE ×2 (07:19→10:20)
--- NOTE | 2023-05-28 07:22 | History & Physical Bridge Note ---
Date of Service May 28, 2023 History & Physical Bridge Note I have examined the patient, reviewed the History & Physical and in the interval since the performance of the History & Physical I have noted the following changes of clinical significance: no changes noted
--- NOTE | 2023-05-28 07:22 | History & Physical Report ---
Date of Service May 28, 2023 History of Present Illness Primary Care Provider: Nitish Lam MD May 12, 2023 Name: RAKEL BECKER Patient Number: [id number] : [id number] Date of Service: 05/12/[address] Lam, We had the pleasure of seeing Mr. Becker today at our vascular surgery clinic. As you know, he is a 63 year old male with history of aortoiliac stenosis and PAD s/p bilateral common iliac artery stents and left common femoral artery endarterectomy (CFEA), DM2, lower extremity neuropathy (below the ankles), depression, discectomy, hypertension, hyperlipidemia, tobacco use, obstructive sleep apnea, CAD and atrial flutter s/p recent ablation (04/09/23, Dr. Li at [facility] [place]) who follows with us regarding his peripheral artery disease. He states that he has increased sensitivity of his right foot as well as cramping pain of his right calf. He states that at time his right foot feels cool since about two months ago and he has to put warm blankets on it for it to feel better. His left calf pain has resolved since he had the iliac stents and left CFEA. He can walk about 50 feet before he has significant pain of his right calf and cramping. He states sometimes it takes days for the pain to completely resolve. He is retired but sometimes has the pain even with activities of daily living, including elevating his legs on the recliner at home. He is on Eliquis and Plavix. Physical Exam: He is awake, alert and oriented x3. He is cooperative with exam. BP is 126/38. HR is 87. There is no increased work of breathing on RA, Sat 96%. Lungs are clear. His heart has a regular, rate and rhythm. His abdomen is soft, nontender, nondistended. There is no pulsatile mass. Bilateral groins have palpable femoral pulses. Left groin has a well healed scar with no evidence of erythema or drainage. Bilateral lower extremities are warm and well perfused. There is no discoloration of the lower extremities. There is some dependent rubor (R>L). No pulsatile masses appreciated behind the knees bilaterally. He has AT and PT signals bilaterally, although these are biphasic on the right. Motor strength is 5/5 on BLE. Sensation is preserved but decreased below the level of the ankle bilaterally. He does have hyperalgesia of the right foot. No wounds visible on BLE. Noninvasive studies April Aortoiliac and LE duplex: No aortic aneurysm. Bilateral FUAD stents are patent with no evidence of stenosis. B/l e xternal iliac arteries and left TECHNICAL PRODUCT MANAGER are patent with no stenosis. Right common femoral artery has 75-99% stenosis with monophasic flow distally. No significant stenosis of distal iliac, femoral or tibial vessels except peroneal which has occlusion at level of the ankle, but otherwise patent. The right SHAUNA is 0.53 (from 0.43). The left lower extremity duplex shows no evidence of restenosis of L CFEA and 50-74% stenosis of the distal SFA. Left SHAUNA is 0.68 Assessment/Plan: 1. Right lower extremity claudication 63 year old M with history of bilateral lower extremity claudication s/p bilateral FUAD stenting and L CFEA who now presents with right calf cramping and pain, as well as R foot hyperalgesia. On exam, there are no open wounds. No rest pain. No evidence of CLTI. On most recent ultrasound, SHAUNA is 0.53 on the right and 0.68 on the left. There is significant right TECHNICAL PRODUCT MANAGER stenosis of 75-99%. There is no discoloration of the RLE. At this time, we recommend right femoral artery endarterectomy with bovine pericardial patch. Risks and benefits were discussed and patient is in agreement with this. He is on Eliquis and Plavix. Thank you for allowing us to participate in the care of this patient. Please do not hesitate to contact us with any questions or concerns. I saw and evaluated the patient. Discussed with the resident and agree with the resident's findings and plan as documented in the resident's note. Signature Line Electronic Signature on File CC: Nitish Lam MD [address] [place] [id number] * Alta Corado MD Author Signature Dt/Tm: 05/12/2023 03:04 PM Resident, Division of Vascular Surgery Electronically Reviewed/Signed by: MD Paramjit Valadezigner Signature Dt/Tm: 05/12/2023 03:06 PM Retail Coverage Merchandiser [facility], [address] [place] [address] RV Result Type: .Outpt Ltr Date of Service: May 12, 2023 14:45 EST Authorization Status: Final Author or Import Date: Siddharth Corado MD, Alta on May 12, 2023 14:48 EST Verified By: MD Radha, Tyrese Harper on May 12, 2023 15:06 EST Encounter info: [id number], [place] [id number], Clinic, 05/12/2023 - 05/12/2023 Allergies Allergy/AdvReac Type Severity Reaction Status Date / Time latex Allergy Mild Rash Verified 05/28/23 07:11 Penicillins Allergy Mild Rash Verified 05/28/23 07:11 dronedarone AdvReac Intermediate Fatigued Verified 05/28/23 07:11 gemfibrozil AdvReac Intermediate BODY ACHES Verified 05/28/23 07:11 Siffnul-YDB-CnY Reductase AdvReac Intermediate body aches Verified 05/28/23 07:11 Inhibitor [Menncrp-Jsy-Fcn Reductase Inhibitor] adhesive AdvReac Mild Rash Verified 05/28/23 07:11 NSAIDS (Non-Steroidal AdvReac Unknown TOLD NOT Verified 05/28/23 07:11 Anti-Inflamma TO TAKE - HX STOMACH ULCER Home Medications Medication Instructions Recorded Confirmed Type acetaminophen 650 mg 650 mg PO UD PRN ARTHRITIS PAIN 12/06/20 05/28/23 History tablet,extended release folic acid 400 mcg tablet 0.4 mg PO QAM 04/23/22 05/28/23 History metformin 500 mg tablet,extended 2,000 mg (4 x 500 mg) PO QAM #360 08/13/22 05/28/23 Rx release 24 hr tabs cholecalciferol (vitamin D3) 125 125 mcg PO QAM 08/14/22 05/28/23 History mcg (5,000 unit) capsule cyanocobalamin (vitamin B-12) 1,000 mcg PO QAM 08/26/22 05/28/23 History 1,000 mcg tablet (Vitamin B-12) gabapentin 400 mg capsule 800 mg (2 x 400 mg) PO TID #180 12/16/22 05/28/23 Rx caps pantoprazole 40 mg tablet,delayed 40 mg PO QAM #90 tabs 01/13/23 05/28/23 Rx release clopidogrel 75 mg tablet (Plavix) 75 mg PO DAILY #30 tabs 01/22/23 05/28/23 Rx apixaban 5 mg tablet (Eliquis) 5 mg PO BID #180 tabs 01/29/23 05/28/23 Rx glimepiride 1 mg tablet 1 mg PO QAM #90 tabs 02/03/23 05/28/23 Rx lisinopril 40 mg tablet 40 mg PO QAM #90 tabs 02/03/23 05/28/23 Rx alirocumab 150 mg/mL subcutaneous 150 mg subcut Q14D #2 mL 02/05/23 05/28/23 Rx pen injector (Praluent Pen) tamsulosin 0.4 mg capsule 0.4 mg PO DAILY #90 caps 03/06/23 05/28/23 Rx magnesium oxide 400 mg PO BID #60 caps 03/13/23 05/28/23 Rx metoprolol tartrate 100 mg tablet 50 mg PO BID 03/25/23 05/28/23 History tramadol 50 mg tablet 100 mg (2 x 50 mg) PO BID #120 tabs 04/11/23 05/28/23 Rx doxepin 10 mg capsule 10 mg PO DAILY #30 caps 05/15/23 05/28/23 Rx duloxetine 60 mg capsule,delayed 60 mg PO QAM 05/28/23 05/28/23 History release (Cymbalta) Past Med/Surg History Medical History Presence of neurostimulator Hx of atrial flutter ablation done 01/2023 [facility] [place] Diabetic neuropathy History of cardioversion 01/2021, [facility]; F/U DR. 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 History of chronic back pain Neurogenic claudication due to lumbar stenosis History of COVID-19 03/18/2022>resolved History of anxiety Paroxysmal atrial flutter 01/2021- s/p cardoversion- with excessive alcohol intake- felt to be contributing component. No AC. No recurrence per PCP records 07/29/22- - Recurrence in preop area prior to surgery - sent from ACU to ED- admitted to [facility] 07/29/22-07/30/22 Alcohol abuse Pt admits to >4 beers daily Bilateral carotid artery stenosis Per 11/2021 Carotid Doppler: 50-69% stenosis of right ICA, less than 50% stenosis of left ICA, greater than 50% stenosis of right ECA Antegrade flow in both vertebral arteries CAD in [place] artery s/p LAD stent x2 () History of gastric ulcer No recent issues Degenerative disc disease GERD (gastroesophageal reflux disease) Well controlled and stable Diabetes mellitus, type 2 NIDDM Hypertension Hyperlipidemia Sleep apnea "Mild to moderate"-cpap has not been using recently due to getting up multiple times per night Myocardial infarction Anterolateral [place]- 2008, [place], had cardiac cath; f/u asa ovalle Surgical History History of cardiac radiofrequency ablation 04/09/2023 [facility] [place] for a-flutter S/P insertion of iliac artery stent History of endarterectomy Left Femoral Endarterectomy with Bovine Patch Hx of cataract extraction rt/lt. History of anesthesia reaction WITH BACK SURGERY 2004 - DISORIENTED, PULLED CATHETER OUT ([facility]) Fusion of spine CERVICAL, "HAVE 80% OF MOTION" History of lumbar surgery X 3 - 2004, 2006, 2019 History of total knee replacement RT/LEFT (LEFT REVISION) Hx of transurethral resection of prostate History of esophagogastroduodenoscopy (EGD) History of colonoscopy History of nasal septoplasty History of heart artery stent 2006 or 2007, x1 stent, [place]; f/u asa ovalle Family History Mother Family history of diabetes mellitus Father Family history of diabetes mellitus Other No family history of adverse response to anesthesia Denies family history of Ovarian cancer Prostate cancer Myocardial infarction Breast cancer Colorectal cancer Social History Smoking Status: Current every day smoker Tobacco Type: Cigarettes and Smokeless Tobacco (Dip or Chew) Age Started Using Tobacco: 18; Cigarettes Per Day: 10 PER DAY - ADVISED; Second Hand Exposure: Yes ( SMOKES); Do You Dip or Chew Tobacco: Yes (ADVISED); Tobacco Cessation Education Requested by Patient: No Hx Alcohol Use: Yes Alcohol type: beer Alcohol type Comment: 6-8 beers Hx Substance Use: No Preferred Language: Panamanian Communication Ability: Effective Visual Impairment: No Limitations Sizing Sponger Required: No Beliefs That Will Affect Care: None marital status: Current Living Situation: Spouse Current Living Situation Comment: Lives at home with How many Children do You have: 4 Other Information That Helps Us Care for You: No Feels Safe at Home: Yes Safety Concerns: Feels Safe At This Time Childhood Exposure to Second-Hand Smoke: Yes Dental Care, Regularly: Yes Physical Activity Frequency: Does not Exercise Seatbelt Use: always Sunscreen Use: No Assistive Devices: Cane and CPAP
[2023-05-28] MEDS ORDERED: ONDANSETRON INJ 2 MG/ML 2 ML VIAL ONE (07:23)
[2023-05-28] MEDS ORDERED: DEXAMETHASONE SOD INJ 4 MG/ML VIAL ONE (07:23)
[2023-05-28] MEDS ORDERED: ROCURONIUM BROMIDE 10 MG/ML 5 ML VIAL IV ONE ×2 (07:23→09:08)
[2023-05-28] MEDS ORDERED: LIDOCAINE 2% 2 ML VIAL/AMP(20MG/ML) INFIL ONE (07:23)
[2023-05-28] MEDS ORDERED: PROPOFOL IV EMULSION 10 MG/ML 20 ML VIAL IV ONE (07:23)
[2023-05-28] MEDS ORDERED: ALBUMIN HUMAN 5% 12.5 GM/250 ML VIAL IV ONE (07:25)
[2023-05-28 07:26] LABS: Basophils # (auto) 0.12 K/uL (0.00-0.20); Basophils % (auto) 1.5 %; Eosinophils # (auto) 0.15 K/uL (0.00-0.50); Eosinophils % (auto) 1.9 %; Hematocrit (blood only) 37.9 % (42.0-52.0); Hemoglobin 12.3 g/dl (14.0-18.0); Immature Granulocytes # (auto) 0.21 K/uL (0.01-0.20); Immature Granulocytes % (auto) 2.7 %; Lymphocytes # (auto) 1.66 K/uL (1.20-3.40); Lymphocytes % (auto) 21.3 %; Mean Corpuscular Hemoglobin 34.4 pg (25.0-34.0); Mean Corpuscular Hgb Conc 32.5 g/dL (32.0-36.0); Mean Corpuscular Volume 105.9 fL (80.0-100.0); Mean Platelet Volume 11.8 fL (9.4-12.4); Monocytes # (auto) 0.84 K/uL (0.11-0.59); Monocytes % (auto) 10.8 %; Neutrophils # (auto) 4.81 K/uL (1.40-6.50); Neutrophils % (auto) 61.8 %; Platelet Count 277 K/uL (130-400); RDW Coefficient of Variation 16.5 % (11.5-14.5); RDW Standard Deviation 65.1 fL (36.4-46.3); Red Blood Count 3.58 M/uL (4.70-6.10); White Blood Count 7.79 K/ul (4.8-10.8)
[2023-05-28 07:40] LABS: BUN Creatinine Ratio 23.9 (10-20); Calcium 9.4 mg/dl (8.6-10.3); Creatinine Clr Calc Pharmacy 80.8 ml/min; Est GFR (African American) 78.6 ml/min; Est GFR (Non-African American) 67.8 ml/min; Potassium 4.8 mmol/L (3.5-5.1)
[2023-05-28 07:51] LABS: Partial Thromboplastin Time 28 Seconds (21-31); Prothrombin Time 10.7 Seconds (9.0-12.0)
[2023-05-28] MEDS ORDERED: HEPARIN SOD (PORCINE) 1000 UNIT/ML ONE (08:52)
[2023-05-28] MEDS ORDERED: PROTAMINE SULFATE 10 MG/ML 5 ML VIAL IV ONE (09:41)
[2023-05-28] MEDS ORDERED: SUGAMMADEX SODIUM 200 MG/2 ML VIAL IV ONE (09:42)
--- NOTE | 2023-05-28 10:18 | Operative Report ---
Post Operative Report Pre & Post Diagnosis Operation Date: 05/28/23 07:30 Pre-Op Diagnosis: Right Common Femoral Artery Stenosis Post-Op Diagnosis: Right Common Femoral Artery Stenosis I identified the patient and participated in the time-out.: Yes Procedure Operation Date: 05/28/23 07:30 Actual Procedures p Right Common Femoral Artery Endarterectomy with Bovine Patch Angioplasty(Right) - Tyrese Garcia MD Surgeon Tyrese Garcia MD Grout Pump Operator Chanda,LUZ MARIA Estimated Blood Loss 50 Findings Consistent with Post-Op Diagnosis Specimens right common femoral artery plaque Anesthesia Type General Complications none Disposition Accompanied Patient To Recovery: No Indications This is a 63-year-old gentleman who has severe claudication right lower extremity. He was found to have a severe stenosis of his right common femoral artery on CT angiogram. Right common femoral artery endarterectomy with patch angioplasty was recommended. I have discussed the risks options and benefits of the procedure with the patient. The patient understands the risks options and benefits and agrees to the procedure. Description of Procedure The patient was taken to the operating room and placed supine position. after general anesthesia was accomplished the patient was prepped and draped in the usual fashion. A timeout was performed and the patient was identified. A longitudinal incision was made in the right groin. This was carried down to the common femoral artery. This was isolated from the inguinal ligament down through the superficial femoral artery beyond the the plaque which extended down from the common femoral. The profunda was also freed up. A Star closure device was seen in overlying the common femoral artery proximally. This was removed. Once everything was isolated the patient was heparinized. The common femoral artery was then clamped above the plaque. The superficial femoral was clamped below the plaque and the profunda femoral artery was also clamped. Longitudinal arteriotomy was started on the common femoral artery. This was extended upward to the inguinal ligament and downward to beyond the plaque on the superficial femoral artery. There is a large plaque seen in the distal common femoral artery overlying the origin of both the superficial femoral and profundofemoral artery. The lumen was barely patent. Endarterectomy was then started in appropriate plane. This was carried upward. Nice further breakoff point was seen proximally. Good inflow was noted. The endograft was then carried down distally. The plaque pulled out of the profundofemoral artery nicely. The superficial femoral artery was endarterectomized down to beyond the large plaque which was extended down from the common femoral artery. A nice further breakoff point was seen distally. Good backbleeding was noted. All loose debris was then removed. Tacking stitch was then placed in the posterior wall of the superficial femoral artery at its origin to tack down the piece of loose plaque that was seen at that level. This would lead flow surface was irrigated. No loose flaps were noted. A bovine patch was then brought to the operative field was trimmed the appropriate fashion and sewn in place with a 6-0 Prolene suture. Prior to completing this closure backbleeding for bleeding was allowed to occur. The flow site was then irrigated heparinized saline. The final few sutures were then placed and securely tied. Clamps and removed. There is excellent Doppler signals heard in the profunda and superficial femoral arteries distally. Adequate hemostasis was then obtained. We did need 3 interrupted repair sutures in between the suture line to control some small amount of bleeding between these placed sutures. After this was done after hemostasis was seen. The wound was irrigated. The wound was then closed in usual fashion using running 2-0 Vicryl for the femoral sheath and 3-0 Vicryl for subcutaneous layer. Nahun were used for the skin. A Prevena dressing was then placed over the wound.The patient left the operation room in satisfactory condition and tolerated the procedure well. All needle and sponge counts were correct at the end of the procedure. Xochitl Cruz Pac assisted due to lack of resident availability and was necessary for positioning, draping, retraction, wound closure deep layers, subcutaneous tissue, and skin closure and was necessary for assisting with the case. I attest to the content of the Intraoperative Record and any orders documented therein. Any exceptions are noted below.
[2023-05-28] MEDS ORDERED: HYDROmorphone INJ 2 MG/ML SYR/VIAL ONE (10:21)
[2023-05-28] MEDS ORDERED: INSULIN ASPART PER UNIT CHARGE SC STA (10:33)
[2023-05-28] MEDS ORDERED: HYDROmorphone INJ 1 MG/ML SYRINGE IV PRN (10:36)
[2023-05-28] MEDS ORDERED: ACETAMINOPHEN 1,000 MG/100 ML VIAL IV STA (10:38)
[2023-05-28] MEDS: fentaNYL citrate PF 100 MCG/2 ML VIAL IV PRN ×4 (10:43→10:59)
[2023-05-28] MEDS: ePHEDrine sulfate 50 MG/ML AMP IV PRN ×4 (11:02→11:40)
--- NOTE | 2023-05-28 11:16 | Electrocardiogram Report ---
Test Reason : Blood Pressure : / mmHG Vent. Rate : 068 BPM Atrial Rate : 068 BPM P-R Int : 154 ms QRS Dur : 088 ms QT Int : 368 ms P-R-T Axes : 000 046 053 degrees QTc Int : 391 ms Poor data quality, interpretation may be adversely affected Unusual P axis, possible ectopic atrial rhythm Poor R wave progression, consider anterior OH vs. lead placement vs. LVH Abnormal ECG When compared with ECG of 21-MAR-2023 19:24, Significant changes have occurred Confirmed by Bandar Bearden ([id number]) on 05/28/2023 11:15:55 AM Referred By: Tyrese Garcia Confirmed By:Bandar Bearden
--- NOTE | 2023-05-28 12:19 | Anesthesiology Progress Note ---
Date of Service May 28, 2023 Anesthesia Post Procedure Vital Signs Vital Signs: Temp Pulse Resp BP Pulse Ox O2 Del Method O2 Flow Rate 05/28/23 12:05 36.7 C 71 24 90/51 L 96 Nasal Cannula 2 05/28/23 11:55 67 26 H 96/45 L 97 Nasal Cannula 2 05/28/23 11:45 67 23 93/45 L 95 Nasal Cannula 2 05/28/23 11:35 76 15 93/49 L 97 Nasal Cannula 2 05/28/23 11:25 67 21 93/51 L 97 Nasal Cannula 2 05/28/23 11:15 66 16 89/50 L 97 Nasal Cannula 2 05/28/23 11:05 65 16 117/64 94 Nasal Cannula 2 05/28/23 10:55 67 16 88/48 L 95 Nasal Cannula 2 05/28/23 10:45 66 15 96/53 L 99 Nasal Cannula 2 05/28/23 10:35 80 23 107/58 L 99 Nasal Cannula 2 05/28/23 10:29 36.1 C L 67 16 134/65 100 Oxymask 6 05/28/23 07:16 36.6 C 66 20 143/66 H 96 Room Air Pain Intensity Right Groin: Pain Intensity: 4 Transfer of Care Handoff Completed per policy Notes Mental Status: alert / awake / arousable Patient Amnestic to Procedure: Yes Nausea / Vomiting: adequately controlled Pain: adequately controlled Airway Patency, RR, SpO2: stable & adequate BP & HR: stable & adequate Hydration State: stable & adequate Anesthetic Complications: no major complications apparent and Pt Satisfied with anesthetic care
[2023-05-28] MEDS ORDERED: ACETAMINOPHEN 325 MG TAB PO PRN (13:10)
[2023-05-28] MEDS: oxyCODONE/ACETAMINOPHEN 5mg/325mg TAB PO PRN ×3 (14:10→22:29)
[2023-05-28] MEDS: LACTATED RINGER'S 1,000 ML IV SCH ×2 (14:14→22:30)
[2023-05-28] MEDS: GABAPENTIN 400 MG CAP PO SCH ×2 (14:14→20:09)
[2023-05-28] MEDS: MoRPHine SULFATE 4 MG/ML 1 ML CARP\\VIAL IV PRN (16:06)
[2023-05-28] MEDS: CLINDAMYCIN/D5W 600 MG/50 ML BAG IV SCH (16:07)
[2023-05-28] MEDS: MAGNESIUM OXIDE 400 MG TAB PO SCH (20:09)
[2023-05-28] MEDS: METOPROLOL TARTRATE 50 MG TAB PO SCH (20:09)
[2023-05-29] MEDS: CLINDAMYCIN/D5W 600 MG/50 ML BAG IV SCH (00:09)
[2023-05-29] MEDS: MoRPHine SULFATE 4 MG/ML 1 ML CARP\\VIAL IV PRN ×2 (00:46→08:43)
[2023-05-29] MEDS: oxyCODONE/ACETAMINOPHEN 5mg/325mg TAB PO PRN ×3 (04:36→14:18)
[2023-05-29] MEDS: LACTATED RINGER'S 1,000 ML IV SCH (06:27)
[2023-05-29] MEDS ORDERED: metFORMIN HCL ER 500 MG TABCR PO SCH (07:30)
[2023-05-29] MEDS ORDERED: GLIMEPIRIDE 2 MG TAB PO SCH (07:30)
[2023-05-29 07:35] LABS: Hematocrit (blood only) 29.4 % (42.0-52.0); Hemoglobin 9.2 g/dl (14.0-18.0); Mean Corpuscular Hemoglobin 34.5 pg (25.0-34.0); Mean Corpuscular Hgb Conc 31.3 g/dL (32.0-36.0); Mean Corpuscular Volume 110.1 fL (80.0-100.0); Mean Platelet Volume 11.7 fL (9.4-12.4); Platelet Count 195 K/uL (130-400); RDW Coefficient of Variation 17.1 % (11.5-14.5); RDW Standard Deviation 70.4 fL (36.4-46.3); Red Blood Count 2.67 M/uL (4.70-6.10); White Blood Count 10.74 K/ul (4.8-10.8)
[2023-05-29 08:00] LABS: Basophils # (auto) 0.06 K/uL (0.00-0.20); Basophils % (auto) 0.6 %; Eosinophils # (auto) 0.03 K/uL (0.00-0.50); Eosinophils % (auto) 0.3 %; Immature Granulocytes # (auto) 0.09 K/uL (0.01-0.20); Immature Granulocytes % (auto) 0.8 %; Lymphocytes # (auto) 1.61 K/uL (1.20-3.40); Monocytes # (auto) 1.15 K/uL (0.11-0.59); Monocytes % (auto) 10.7 %; Neutrophils % (auto) 72.6 %; Poikilocytosis Present; Stomatocytes 1+
[2023-05-29] MEDS: MAGNESIUM OXIDE 400 MG TAB PO SCH (08:32)
[2023-05-29] MEDS: GABAPENTIN 400 MG CAP PO SCH ×2 (08:32→13:17)
[2023-05-29] MEDS: METOPROLOL TARTRATE 50 MG TAB PO SCH (08:34)
[2023-05-29] MEDS ORDERED: CLOPIDOGREL BISULFATE 75 MG TAB PO SCH (09:00)
[2023-05-29] MEDS ORDERED: CHOLECALCIFEROL 5,000 UNITS 125 MCG TAB PO SCH (09:00)
[2023-05-29] MEDS ORDERED: lisinopril 40 MG TAB PO SCH (09:00)
[2023-05-29] MEDS ORDERED: FOLIC ACID 400 MCG TAB PO SCH (09:00)
[2023-05-29] MEDS ORDERED: TAMSULOSIN HCL 0.4 MG CAP PO SCH (09:00)
[2023-05-29] MEDS ORDERED: APIXABAN 5 MG TABLET PO SCH (09:00)
[2023-05-29] MEDS ORDERED: DOXEPIN HCL 10 MG CAPSULE PO SCH (09:00)
[2023-05-29] MEDS ORDERED: DULoxetine HCL 60 MG CAP PO SCH (09:00)
[2023-05-29] MEDS ORDERED: CYANOCOBALAMIN (B-12) 500 MCG TABLET PO SCH (09:00)
[2023-05-29] MEDS ORDERED: PANTOprazole 40 MG TAB PO SCH (09:00)
[2023-05-29] MEDS ORDERED: traMADol HCL 50 MG TABLET PO PRN (11:36)
--- NOTE | 2023-05-29 14:15 | Surgery Progress Note ---
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 Doing well. No claudication. Will d/c home today. Admission and Anticipated Discharge Date Admission Date: May 28, 2023 Subjective Patient without complaint. Walked around floor three times without claudication Physical Exam Constitutional: WD/WN, vitals as above Respiratory: normal respiratory effort; no respiratory distress Cardiovascular: Rate/Rhythm: regular rate and regular rhythm Extremities: normal capillary refill good pedal doppler pulses Skin: + incision (prevena dressing in place) Neurologic: CN's II-XI intact bilaterally and moves all extremities Results & Data Vital Signs (Past 12 Hours) Vital Signs Temp Pulse Resp BP Pulse Ox O2 Del Method 05/29/23 11:43 36.5 C 62 18 120/69 96 Room Air 05/29/23 07:33 36.9 C 68 18 147/75 H 97 Room Air 05/29/23 04:31 73 117/73 05/29/23 02:29 36.7 C 75 16 94/50 L 96 Room Air
--- NOTE | 2023-05-30 08:35 | Discharge Summary ---
Date of Service May 30, 2023 Admission HPI Per Admitting Provider May 12, 2023 Name: RAKEL BECKER Patient Number: [id number] : 1960 Date of Service: 05/12/[address] Lam, We had the pleasure of seeing Mr. Becker today at our vascular surgery clinic. As you know, he is a 63 year old male with history of aortoiliac stenosis and PAD s/p bilateral common iliac artery stents and left common femoral artery endarterectomy (CFEA), DM2, lower extremity neuropathy (below the ankles), depression, discectomy, hypertension, hyperlipidemia, tobacco use, obstructive sleep apnea, CAD and atrial flutter s/p recent ablation (04/09/23, Dr. Li at [facility]) who follows with us regarding his peripheral artery disease. He states that he has increased sensitivity of his right foot as well as cramping pain of his right calf. He states that at time his right foot feels cool since about two months ago and he has to put warm blankets on it for it to feel better. His left calf pain has resolved since he had the iliac stents and left CFEA. He can walk about 50 feet before he has significant pain of his right calf and cramping. He states sometimes it takes days for the pain to completely resolve. He is retired but sometimes has the pain even with activities of daily living, including elevating his legs on the recliner at home. He is on Eliquis and Plavix. Physical Exam: He is awake, alert and oriented x3. He is cooperative with exam. BP is 126/38. HR is 87. There is no increased work of breathing on RA, Sat 96%. Lungs are clear. His heart has a regular, rate and rhythm. His abdomen is soft, nontender, nondistended. There is no pulsatile mass. Bilateral groins have palpable femoral pulses. Left groin has a well healed scar with no evidence of erythema or drainage. Bilateral lower extremities are warm and well perfused. There is no discoloration of the lower extremities. There is some dependent rubor (R>L). No pulsatile masses appreciated behind the knees bilaterally. He has AT and PT signals bilaterally, although these are biphasic on the right. Motor strength is 5/5 on BLE. Sensation is preserved but decreased below the level of the ankle bilaterally. He does have hyperalgesia of the right foot. No wounds visible on BLE. Noninvasive studies April Aortoiliac and LE duplex: No aortic aneurysm. Bilateral FUAD stents are patent with no evidence of stenosis. B/l external iliac arteries and left ENGINEERING OPERATOR are patent with no stenosis. Right common femoral artery has 75-99% stenosis with monophasic flow distally. No significant stenosis of distal iliac, femoral or tibial vessels except peroneal which has occlusion at level of the ankle, but otherwise patent. The right SHAUNA is 0.53 (from 0.43). The left lower extremity duplex shows no evidence of restenosis of L CFEA and 50-74% stenosis of the distal SFA. Left SHAUNA is 0.68 Assessment/Plan: 1. Right lower extremity claudication 63 year old M with history of bilateral lower extremity claudication s/p bilateral FUAD stenting and L CFEA who now presents with right calf cramping and pain, as well as R foot hyperalgesia. On exam, there are no open wounds. No rest pain. No evidence of CLTI. On most recent ultrasound, SHAUNA is 0.53 on the right and 0.68 on the left. There is significant right ENGINEERING OPERATOR stenosis of 75-99%. There is no discoloration of the RLE. At this time, we recommend right femoral artery endarterectomy with bovine pericardial patch. Risks and benefits were discussed and patient is in agreement with this. He is on Eliquis and Plavix. Thank you for allowing us to participate in the care of this patient. Please do not hesitate to contact us with any questions or concerns. I saw and evaluated the patient. Discussed with the resident and agree with the resident's findings and plan as documented in the resident's note. Signature Line Electronic Signature on File CC: Nitish Lam MD [address] [place] [id number] * Alta Corado MD Author Signature Dt/Tm: 05/12/2023 03:04 PM Resident, Division of Vascular Surgery Electronically Reviewed/Signed by: MD Paramjit Valadezigner Signature Dt/Tm: 05/12/2023 03:06 PM Muck Boss Jeremi [facility] [place] [address], [address] [place] [address] RV Result Type: .Outpt Ltr Date of Service: May 12, 2023 14:45 EST Authorization Status: Final Author or Import Date: Siddharth Corado MD, Alta on May 12, 2023 14:48 EST Verified By: MD Radha, Tyrese Harper on May 12, 2023 15:06 EST Encounter info: [id number], JUSTIN SCAries, Clinic, 05/12/2023 - 05/12/2023 Admission Exam Per Admitting Provider Physical Exam: He is awake, alert and oriented x3. He is cooperative with exam. BP is 126/38. HR is 87. There is no increased work of breathing on RA, Sat 96%. Lungs are clear. His heart has a regular, rate and rhythm. His abdomen is soft, nontender, nondistended. There is no pulsatile mass. Bilateral groins have palpable femoral pulses. Left groin has a well healed scar with no evidence of erythema or drainage. Bilateral lower extremities are warm and well perfused. There is no discoloration of the lower extremities. There is some dependent rubor (R>L). No pulsatile masses appreciated behind the knees bilaterally. He has AT and PT signals bilaterally, although these are biphasic on the right. Motor strength is 5/5 on BLE. Sensation is preserved but decreased below the level of the ankle bilaterally. He does have hyperalgesia of the right foot. No wounds visible on BLE. Principal Diagnosis 1. s/p R ENGINEERING OPERATOR endarterectomy with bovine patch angioplasty 2. R ENGINEERING OPERATOR occlusion Discharge Exam Constitutional WD/WN, vitals as above Respiratory normal respiratory effort; no respiratory distress Cardiovascular Rate/Rhythm: regular rate and regular rhythm Extremities: normal capillary refill Skin + incision (prevena dressing in place) Neurologic CN's II-XI intact bilaterally and moves all extremities Discharge Data Allergies Allergy/AdvReac Type Severity Reaction Status Date / Time latex Allergy Mild Rash Verified 05/28/23 07:11 Penicillins Allergy Mild Rash Verified 05/28/23 07:11 dronedarone AdvReac Intermediate Fatigued Verified 05/28/23 07:11 gemfibrozil AdvReac Intermediate BODY ACHES Verified 05/28/23 07:11 Nerfdxq-LRI-UpC Reductase AdvReac Intermediate body aches Verified 05/28/23 07:11 Inhibitor [Elvwono-Azs-Jlp Reductase Inhibitor] adhesive AdvReac Mild Rash Verified 05/28/23 07:11 NSAIDS (Non-Steroidal AdvReac Unknown TOLD NOT Verified 05/28/23 07:11 Anti-Inflamma TO TAKE - HX STOMACH ULCER Procedures Performed Operation Date: 05/28/23 07:30 Actual Procedures p Right Common Femoral Artery Endarterectomy with Bovine Patch Angioplasty(Right) - Tyrese Garcia MD Hospital Course (1) Peripheral vascular disease: Patient POD 1 of right warp coiler endart with patch. Doing well. No claudication. Will d/c home today. Total Time Total Time Spent Total Time Spent (In Minutes): 0 Discharge Plan Discharge Items Patient Disposition: Home - Self-Care Reason For Visit: Right Common Femoral Artery Stenosis Discharge Diagnosis: Right common femoral artery stenosis Activity: Per Instructions section Non-emergency contact: Surgeon Call non-emergency contact if: your temperature is above 101.5, your wound has increased redness, your wound has increased drainage and your wound pain has increased Follow-up/Referrals: Nitish Lam MD [Primary Care Provider] - Diet: Carb Consistent or DM2 and Heart Healthy Addtl Attending Provider Instructions: ACTIVITY RECOMMENDATIONS: Leave dressing vac in place until suction no longer functions. Then remove and replace with 4x4 and tape if any drainage SPECIAL CARE INSTRUCTIONS: Call your doctor if: * Temperature above 101 degrees * Pain not relieved by pain medicine ordered * There is increased drainage or redness from any incision * You have any unanswered questions or concerns. Call [phone] to schedule a follow up appointment if one not already scheduled. Pending Studies at Discharge: No Stand-Alone Forms: My [facility] Zadspace, Smoking Cessation Medications and DC Order Prescriptions: New oxycodone 5 mg capsule 5 mg PO Q6H PRN (Reason: pain) Qty: 30 0RF Continued metformin 500 mg tablet extended release 24 hr 2,000 mg PO QAM Qty: 360 3RF gabapentin 400 mg capsule 800 mg PO TID Qty: 180 5RF pantoprazole 40 mg tablet,delayed release (DR/EC) 40 mg PO QAM Qty: 90 1RF Eliquis 5 mg tablet 5 mg PO BID Qty: 180 3RF lisinopril 40 mg tablet 40 mg PO QAM Qty: 90 3RF glimepiride 1 mg tablet 1 mg PO QAM Qty: 90 3RF Praluent Pen 150 mg/mL pen injector 150 mg subcut Q14D Qty: 2 11RF Rx Instructions: inject into abdomen, thigh, or upper arm (deltoid muscle); rotate sites tramadol 50 mg tablet 100 mg PO BID Qty: 120 0RF tamsulosin 0.4 mg capsule 0.4 mg PO DAILY Qty: 90 3RF doxepin 10 mg capsule 10 mg PO DAILY Qty: 30 2RF metoprolol tartrate 100 mg tablet 50 mg PO BID cholecalciferol (vitamin D3) 125 mcg (5,000 unit) capsule 125 mcg PO QAM acetaminophen 650 mg Tablet Extended Release 650 mg PO UD PRN (Reason: ARTHRITIS PAIN) Patient Comments: takes at least 2 tablets every day. cyanocobalamin (vitamin B-12) [Vitamin B-12] 1,000 mcg Tablet 1,000 mcg PO QAM clopidogrel [Plavix] 75 mg tablet 75 mg PO DAILY Qty: 30 0RF magnesium oxide 400 mg magnesium capsule 400 mg PO BID Qty: 60 0RF duloxetine [Cymbalta] 60 mg capsule,delayed release(DR/EC) 60 mg PO QAM folic acid 400 mcg Tablet 0.4 mg PO QAM Discharge Orders: Discharge Order (Routine); Ordered 05/29/23 Ordered By: Tyrese Garcia Admission Data Admit Date/Time: 05/28/23 07:22 Attending Provider: Tyrese Garcia Admit Provider: Tyrese Garcia Primary Care Provider: Nitish Lam Other Interventions: Discharge Summary Assessment (RN) Last Done: 05/29/23 15:20
== END 2023-05-29 16:06 | disposition home or self-care (01) | DRG 254 ==
LOC: ASU 06:55 → 3E 07:22

== ENCOUNTER 2023-07-26 14:12 | Inpatient (IN) ==
--- NOTE | 2023-07-26 15:10 | XRay Report ---
XR chest 1V portable HISTORY: 63 years-old Male Fever COMPARISON: 03/21/2023 TECHNIQUE: Supine AP view of the chest FINDINGS: Cardiac silhouette is enlarged. No pneumothorax, pleural effusion, airspace consolidation or pulmonar y edema. Degenerative changes of the shoulders and spine. Partially imaged stimulator leads overlie t he mid thoracic spine with battery pack projected over the left upper quadrant abdomen. Cervical spin al fusion hardware. IMPRESSION: No acute process. ACT 112: Negative or not required by law. The above report was generated using voice recognition software. It may contain grammatical, syntax o r spelling errors. Electronically signed by: Juan Cid M.D. 07/26/2023 3:09 PM
[2023-07-26 15:11] LABS: Basophils # (auto) 0.05 K/uL (0.00-0.20); Basophils % (auto) 0.4 %; Eosinophils # (auto) 0.04 K/uL (0.00-0.50); Eosinophils % (auto) 0.4 %; Hematocrit (blood only) 27.6 % (42.0-52.0); Hemoglobin 8.7 g/dl (14.0-18.0); Immature Granulocytes # (auto) 0.18 K/uL (0.01-0.20); Immature Granulocytes % (auto) 1.6 %; Lymphocytes % (auto) 8.8 %; Mean Corpuscular Hemoglobin 33.2 pg (25.0-34.0); Mean Corpuscular Hgb Conc 31.5 g/dL (32.0-36.0); Mean Corpuscular Volume 105.3 fL (80.0-100.0); Mean Platelet Volume 11.4 fL (9.4-12.4); Monocytes % (auto) 9.7 %; Neutrophils # (auto) 8.95 K/uL (1.40-6.50); Neutrophils % (auto) 79.1 %; Nucleated RBC # (auto) 0.02 K/uL (0.00-0.12); Nucleated RBC % (auto) 0.2 %; Platelet Count 278 K/uL (130-400); RDW Coefficient of Variation 15.9 % (11.5-14.5); RDW Standard Deviation 61.4 fL (36.4-46.3); Red Blood Count 2.62 M/uL (4.70-6.10); White Blood Count 11.32 K/ul (4.8-10.8)
[2023-07-26] MEDS: ACETAMINOPHEN 1,000 MG/100 ML VIAL IV STA (15:14)
[2023-07-26] MEDS: SODIUM CHLORIDE 0.9% 1,000 ML IV STA (15:16)
[2023-07-26] MEDS: CEFEPIME 2,000 MG/20 ML VIAL IV STA (15:22)
--- NOTE | 2023-07-26 15:22 | XRay Report ---
XR knee LT 1 or 2V routine HISTORY: 63 years-old Male ? septic joint chronic left knee pain COMPARISON: 06/02/2017 TECHNIQUE: 2 views of the left knee FINDINGS: Moderate-sized joint effusion. Total joint arthroplasty with patellar resurfacing. No acute fracture or dislocation. Arterial calcifications. Lucency is noted at the interface with the dorsal patella an d the patellar hardware with tiny adjacent subcentimeter bone fragments. IMPRESSION: 1. No acute fracture or dislocation. 2. Total joint arthroplasty with possible loosening of the patellar hardware. 3. Moderate-sized joint effusion. ACT 112: Negative or not required by law. The above report was generated using voice recognition software. It may contain grammatical, syntax o r spelling errors. Electronically signed by: Juan Cid M.D. 07/26/2023 3:21 PM
--- NOTE | 2023-07-26 15:36 | Emergency Department Note ---
Impression & Plan Encephalopathy, Peripheral vascular disease, Fever, Effusion of knee joint, left, History of total knee arthroplasty ED Provider Note CHIEF COMPLAINT: left knee pain, fever, delirium HISTORY OF PRESENT ILLNESS: This 63-year-old male patient with past medical history of peripheral arterial disease, bilateral total knee arthroplasty, lumbar laminectomy, alcohol use, atrial flutter, smoking presents emergency department with his and daughter, stating he has had a fever for about 24 hours. Today he became a bit delirious periodically. The patient has been complaining of severe left knee pain and swelling. This is a site of previous total knee arthroplasty and revision secondary to hardware loosening. Patient states he follows with [facility] for [place]ics and [place]. They note he took a COVID test several days ago that was negative. The bruising on his lower extremities they state is normal because he is on blood thinners due to atrial flutter. There was a fall several days ago after the patient tripped over his dog however it was unwitnessed. The patient reported to family that he did not hit his head. No one else in the house is sick. REVIEW OF SYSTEMS: A review of systems was performed with positives and pertinent negatives listed in the history of present illness. 10 systems were reviewed and are otherwise negative. ALLERGIES: see below MEDICATIONS: see below PMH: see below SOCIAL HISTORY: see below DDx: Septic joint, Lyme disease, anaplasmosis, hemarthrosis, viral etiology such as influenza, COVID, UTI, pneumonia , intracranial hemorrhage,among others PHYSICAL EXAM: Vital signs reviewed. General: somewhat ill-appearing 63-year-old male, no significant distress. HEENT: No scleral icterus, PERRLA, neck supple. Moist mucous membranes Cardiovascular: Regular rate and rhythm, no extra sounds. Pulmonary: Clear to auscultation bilaterally, normal work of breathing. Abdomen: Soft, nontender, nondistended, positive bowel sounds. Musculoskeletal: Atraumatic, left knee with significant effusion and tenderness to palpation. Previous surgical scars indicated on both knees, well-healed. Patient is uncomfortable with any movement of the left lower extremity due to knee pain. Neurovascularly intact distally. Neurologic: Patient awake alert and pleasantly confused although answers most questions appropriately. Answers slowly and sometimes makes statements out of context. Skin: Warm, dry, ecchymosis noted to all 4 extremities anteriorly in various stages of healing. Skin changes indicating arterial insufficiency noted in the left greater than right distal lower extremities. EMERGENCY DEPARTMENT COURSE/MDM: This patient was evaluated and appeared to be in no significant distress. IV access was obtained and laboratory work was drawn. Patient was placed on the rn cardiac. He was placed on nasal cannula oxygen for supplementation. Patient is noted to be febrile. Tylenol 1000 mg IV was administered. Blood cultures were obtained. Patient's lactate is within normal limits. Sed rate and CRP are noted to be elevated. WBC is slightly elevated at 11.3. Respiratory bio fire panel is negative. UA is negative. Patient was hydrated with normal saline solution, covered with IV cefepime and vancomycin. Head CT was performed due to the recent fall and delirium, the study is negative for acute intracranial hemorrhage. Patient's mentioned that he has a CTA neck pending this week and asked that we perform the testing today. As the patient will likely be hospitalized and is altered at times, I did oblige. Patient has significant atherosclerosis through the carotid, internal carotid arteries as well as vertebral arteries. He does follow with Dr. Garcia of vascular surgery. The left the x-ray did reveal patellar as well as joint effusion. Given the patient's fever and significant left knee tenderness, joint aspiration was performed. This was sent to the lab for further testing. Patient was medicated with IV morphine and Zofran for his continued discomfort. Patient's blood pressures remained over 100 systolic with the exception of 1 drop to 96. His mental status did seem to be clearing once the fever was treated. The patient and family were updated to the findings and plan. Dr. Eduardo of orthopedic surgery was consulted as the left knee joint is likely infected. Case was discussed with the hospitalist service for admission and further management. Patient/family expressed understanding of the plan and agreed. PROCEDURE: Left knee effusion aspiration. Please see details below. This procedure was significant for purulent fluid, approximately 30 mL drawn and sent to the lab. MONITORING: An order for cardiac monitoring was placed and the patient is noted to be in a atrial fib vs sinus tach with PAC at 111 beats per minute. RADIOLOGY: chest x-ray to my interpretation reveals no evidence of focal lung consolidation or failure. Otherwise defer to radiology. Left knee x-ray to my interpretation reveals evidence of total knee arthroplasty and joint effusion. See radiology's read below. Head CT to my review reveals no evidence of acute intracranial process, otherwise refer to radiology's over read below. CT angiogram of the neck per radiology: IMPRESSION: 1. Extensive atherosclerosis of the carotid bulbs results in high-grade narrowing of the proximal cervical segments of the internal carotid arteries. 2. High-grade stenosis at the origin of the vertebral arteries. 3. 4 mm solid nodule noted within the apical segment right upper lobe. Six-month follow-up chest CT recommended. EKG: to my interpretation reveals likely atrial fibrillation with RVR versus sinus rhythm with frequent PACs at 105 bpm. Poor quality baseline for interpretation. DISPOSITION: Admission I have personally spent greater than 50 minutes of critical care time in the direct management of this patient. This includes bedside care, interpretation of diagnostic studies, and testing, discussion with consultants, patient, and family members, and other required patient management activities. This 50 minutes is in excess of all separately billable procedures. Past Med/Surg History Medical History (Updated 07/28/23 @ 07:31 by Luci Coles MD) Hx of atrial flutter ablation done 01/2023 [facility] [place] Nocturia Presence of neurostimulator Diabetic neuropathy History of cardioversion 01/2021, [facility]; F/U DR. NASCIMENTO, OR Hx of transesophageal echocardiography (GLADYS) for monitoring 01/2021, [facility] Chronic anemia Neuropathy Peripheral arterial disease Severe occlusive disease S/p L common femoral endarterectomy with bovine patch and lithotripsy of SFA and Popliteal arteries , status post bilateral common iliac artery COLLAR PADDER BLINDSTITCH and stents. History of chronic back pain Neurogenic claudication due to lumbar stenosis History of COVID-19 03/18/2022>resolved 06/28/23 + home test - congestion. Tx with pill. Resolved. No current s/s. History of anxiety Paroxysmal atrial flutter 01/2021- s/p cardoversion- with excessive alcohol intake- felt to be contributing component. No AC. No recurrence per PCP records 07/29/22- - Recurrence in preop area prior to surgery - sent from ACU to ED- admitted to [facility] 07/29/22-07/30/22 Alcohol abuse Pt admits to >4 beers daily Bilateral carotid artery stenosis Per 11/2021 Carotid Doppler: 50-69% stenosis of right ICA, less than 50% stenosis of left ICA, greater than 50% stenosis of right ECA Antegrade flow in both vertebral arteries CAD in [place] artery s/p LAD stent x2 () History of gastric ulcer No recent issues Degenerative disc disease GERD (gastroesophageal reflux disease) Well controlled and stable Diabetes mellitus, type 2 NIDDM Hypertension Hyperlipidemia Sleep apnea "Mild to moderate"-cpap has not been using for sometimes/recently been trying to get back to using. Has trouble tolerating mask. Myocardial infarction Anterolateral MS- 2008, [place], had cardiac cath; f/u [facility] Surgical History (Updated 07/28/23 @ 07:31 by Luci Coles MD) Presence of neurostimulator 2022 History of cardiac radiofrequency ablation 04/09/2023 [facility] for a-flutter S/P insertion of iliac artery stent Dec 2022? about 6 mon ago/ Dr. Garcia/2 stents. History of endarterectomy Left Femoral Endarterectomy with Bovine Patch 05/08/2022 & right side done 05/28/2023 Hx of cataract extraction rt/lt. History of anesthesia reaction WITH BACK SURGERY 2004 - DISORIENTED, PULLED CATHETER OUT ([facility]) Fusion of spine CERVICAL, "HAVE 80% OF MOTION" History of lumbar surgery X 3 - 2004, 2006, 2019 History of total knee replacement RT/LEFT (LEFT REVISION) Hx of transurethral resection of prostate History of esophagogastroduodenoscopy (EGD) History of colonoscopy History of nasal septoplasty History of heart artery stent 2006 or 2007, x2 stent, [place]; f/u [facility] Family History Mother Family history of diabetes mellitus Father Family history of diabetes mellitus Other No family history of adverse response to anesthesia Denies family history of Ovarian cancer Prostate cancer Myocardial infarction Breast cancer Colorectal cancer Social History Smoking Status: Current every day smoker Tobacco Type: Cigarettes Age Started Using Tobacco: 18; Cigarettes Per Day: 10 cigs per day/advised npo; Second Hand Exposure: No; Do You Dip or Chew Tobacco: No; Tobacco Cessation Education Requested by Patient: No Hx Alcohol Use: Yes Alcohol type: beer Alcohol type Comment: 6-8 beers Hx Substance Use: No Preferred Language: Maori Communication Ability: Effective Visual Impairment: No Limitations 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 Required: No Beliefs That Will Affect Care: None marital status: Current Living Situation: Spouse Current Living Situation Comment: Lives at home with How many Children do You have: 4 Other Information That Helps Us Care for You: No Feels Safe at Home: Yes Safety Concerns: Feels Safe At This Time Childhood Exposure to Second-Hand Smoke: Yes Dental Care, Regularly: Yes Physical Activity Frequency: Does not Exercise Seatbelt Use: always Sunscreen Use: No Assistive Devices: CPAP, Glasses and Walker Allergies Allergies Allergy/AdvReac Type Severity Reaction Status Date / Time latex Allergy Unknown Rash Verified 07/18/23 11:58 Penicillins Allergy Unknown Rash Verified 07/18/23 11:58 adhesive AdvReac Unknown Rash Verified 07/18/23 11:58 dronedarone AdvReac Unknown Fatigued Verified 07/18/23 11:58 gemfibrozil AdvReac Unknown BODY ACHES Verified 07/18/23 11:58 NSAIDS (Non-Steroidal AdvReac Unknown TOLD NOT Verified 07/18/23 11:58 Anti-Inflamma TO TAKE - HX STOMACH ULCER [id number] Reductase AdvReac Unknown body aches Verified 07/18/23 11:58 Inhibitor [Mqevmfk-Fpu-Kso Reductase Inhibitor] Home Meds Home Medications Medication Instructions Recorded Confirmed acetaminophen 650 mg 650 mg PO UD PRN ARTHRITIS PAIN 12/06/20 07/26/23 tablet,extended release folic acid 400 mcg tablet 0.4 mg PO QAM 04/23/22 07/26/23 cholecalciferol (vitamin D3) 125 125 mcg PO QAM 08/14/22 07/26/23 mcg (5,000 unit) capsule cyanocobalamin (vitamin B-12) 1,000 mcg PO QAM 08/26/22 07/26/23 1,000 mcg tablet (Vitamin B-12) metoprolol tartrate 100 mg tablet 50 mg PO BID 03/25/23 07/26/23 clopidogrel 75 mg tablet (Plavix) 75 mg PO QAM 07/18/23 07/26/23 doxepin 10 mg capsule 10 mg PO HS 07/18/23 07/26/23 magnesium oxide 400 mg PO QAM 07/18/23 07/26/23 tamsulosin 0.4 mg capsule 0.4 mg PO HS 07/18/23 07/26/23 Previous Rx's Medication Instructions Recorded glimepiride 1 mg tablet 1 mg PO QAM #90 tabs 02/03/23 lisinopril 40 mg tablet 40 mg PO QAM #90 tabs 02/03/23 tramadol 50 mg tablet 100 mg (2 x 50 mg) PO BID #120 tabs 06/09/23 gabapentin 400 mg capsule 800 mg (2 x 400 mg) PO TID #180 06/25/23 caps apixaban 5 mg tablet (Eliquis) 5 mg PO BID #180 tabs 06/30/23 duloxetine 60 mg capsule,delayed 60 mg PO QAM #90 caps 07/02/23 release (Cymbalta) metformin 500 mg tablet,extended 2,000 mg (4 x 500 mg) PO QAM #360 07/02/23 release 24 hr tabs pantoprazole 40 mg tablet,delayed 40 mg PO QAM #90 tabs 07/02/23 release evolocumab 140 mg/mL subcutaneous 140 mg subcut .every 2 weeks #6 mL 07/15/23 pen injector ([employer]) Results & Data (ED) Vital Signs Vital Signs - 24 hr 07/26/23 14:45 07/26/23 14:56 07/26/23 16:04 Temperature 38.4 C H Temperature Source Oral Pulse Rate 104 H 95 H Pulse Rate [Apical] 111 H Respiratory Rate 24 28 H Respiratory Effort / Characteristics Respiratory Depth Respiratory Pattern Regular Blood Pressure 165/68 H Blood Pressure [Left Arm] 144/88 H Blood Pressure Mean 100 Blood Pressure Mean [Left Arm] 106 Pulse Oximetry 93 89 L Oxygen Delivery Method Room Air Room Air Oxygen Flow Rate Sepsis Recent Fever Within 48 Hours Yes Sepsis New/Unexplained Change in Mental Status N/A Sepsis Action Taken by Nursing Physician Notified 07/26/23 16:25 Temperature Temperature Source Pulse Rate Pulse Rate [Apical] 92 H Respiratory Rate 22 Respiratory Effort / Characteristics Non-Labored Respiratory Depth Normal Respiratory Pattern Regular Blood Pressure Blood Pressure [Left Arm] 116/62 Blood Pressure Mean Blood Pressure Mean [Left Arm] 80 Pulse Oximetry 97 Oxygen Delivery Method Nasal Cannula Oxygen Flow Rate 2 Sepsis Recent Fever Within 48 Hours Sepsis New/Unexplained Change in Mental Status Sepsis Action Taken by Detention Medications Current Medication List: was personally reviewed by me Laboratory Data Attestation: I reviewed the patient's lab results. 07/28/23 00:31 07/28/23 05:46 Lab Results 07/26/23 07/26/23 07/26/23 Range/Units 14:52 14:55 15:20 WBC 11.32 H (4.8-10.8) K/ul RBC 2.62 L (4.70-6.10) M/uL Hgb 8.7 L (14.0-18.0) g/dl Hct 27.6 L (42.0-52.0) % MCV 105.3 H (80.0-100.0) fL MCH 33.2 (25.0-34.0) pg MCHC 31.5 L (32.0-36.0) g/dL RDW Std Deviation 61.4 H (36.4-46.3) fL RDW Coeff of Kvng 15.9 H (11.5-14.5) % Plt Count 278 (130-400) K/uL MPV 11.4 (9.4-12.4) fL Immature Gran % (Auto) 1.6 % Neut % (Auto) 79.1 % Lymph % (Auto) 8.8 % [place] % (Auto) 9.7 % Eos % (Auto) 0.4 % Baso % (Auto) 0.4 % Neut # (Auto) 8.95 H (1.40-6.50) K/uL Lymph # (Auto) 1.00 L (1.20-3.40) K/uL [place] # (Auto) 1.10 H (0.11-0.59) K/uL Eos # (Auto) 0.04 (0.00-0.50) K/uL Baso # (Auto) 0.05 (0.00-0.20) K/uL Immature Gran # (Auto) 0.18 (0.01-0.20) K/uL Absolute Nucleated RBC 0.02 (0.00-0.12) K/uL Nucleated RBC % (auto) 0.2 % ESR 53 H (0-20) mm/hr Sodium 130 L (136-145) mmol/L Potassium 4.0 (3.5-5.1) mmol/L Chloride 96 L (98-107) mmol/L Carbon Dioxide 25 (21-32) mmol/L Anion Gap 9 (3-11) BUN 20 (6-23) mg/dl Creatinine 0.98 (0.6-1.4) mg/dl Est Cr Clr Drug Dosing 83.6 ml/min Est GFR ( Amer) 93.4 ml/min Est GFR (Non-Af Amer) 80.6 ml/min BUN/Creatinine Ratio 20.4 H (10-20) Glucose 137 H (70-99(Fasting)) mg/dl Lactate 1.1 (0.4-2.0) mmol/L Calcium 8.9 (8.6-10.3) mg/dl Total Bilirubin 0.3 (0.2-1.0) mg/dl AST 16 (13-39) U/L ALT 12 (7-52) U/L Alkaline Phosphatase 67 (34-104) U/L Troponin I High Sens 13.1 (0-20) pg/ml C-Reactive Protein 16.45 H (0-0.5) mg/dl Total Protein 7.0 (6.0-8.3) gm/dl Albumin 3.8 (3.4-5.0) gm/dl Globulin 3.2 (2.5-4.0) gm/dl Albumin/Globulin Ratio 1.2 (0.9-2) Procalcitonin 0.12 (0-0.5) ng/ml Urine Color Yellow Urine Appearance Clear (Clear) Urine pH 5.5 (4.5-7.5) Ur Specific [place] 1.020 (1.000-1.030) Urine Protein 1+ H (Negative) Urine Glucose (UA) Negative (Negative) Urine Ketones Negative (Negative) Urine Blood Negative (Negative) Urine Nitrite Negative (Negative) Urine Bilirubin Negative (Negative) Urine Urobilinogen Negative (Negative) Ur Leukocyte Esterase Negative (Negative) Urine WBC (Auto) 1-5 (0-5) /hpf Urine RBC (Auto) 0-4 (0-4) /hpf U Hyaline Cast (Auto) 1-5 (0-5) /lpf U Epithel Cells (Auto) 0-5 (0-5) /lpf Urine Bacteria (Auto) Negative (Negative) Fluid Comment Synovial Source Synovial Color Synovial Appearance Synovial WBC (Auto) (0-200) /ul Synovial RBC (Auto) /uL Synovial Polynuclear % % Synovial Mononuclear % % Synovial Crystals Adenovirus (PCR) (NotDetected) Anaplasma Smear See Comment B. pertussis DNA (PCR) (NotDetected) B.parapertussis DNA PCR (NotDetected) Lyme Disease Screen Negative (Negative) C. pneumoniae DNA (PCR) (NotDetected) Coronavirus OC43 (PCR) (NotDetected) Coronavirus HKU1 (PCR) (NotDetected) Coronavirus 229E (PCR) (NotDetected) SARS-CoV-2 (PCR) (NotDetected) Coronavirus NL63 (PCR) (NotDetected) Enterococc faecalis PCR DETECTED A (NotDetected) Human Metapneumovir PCR (NotDetected) Influenza Type A (PCR) (NotDetected) Influenza Type B (PCR) (NotDetected) M. pneumoniae (PCR) (NotDetected) Parainfluenza 1 (PCR) (NotDetected) Parainfluenza 2 (PCR) (NotDetected) Parainfluenza 3 (PCR) (NotDetected) Parainfluenza 4 (PCR) (NotDetected) RSV (PCR) (NotDetected) Entero/Rhino (PCR) (NotDetected) Aaron/B-Vanco Res Genes VRE Not Detected (NotDetected) Bld Cult ID Panel PCR See PCR Comment (NotDetected) 07/26/23 07/26/23 Range/Units 15:27 16:51 WBC (4.8-10.8) K/ul RBC (4.70-6.10) M/uL Hgb (14.0-18.0) g/dl Hct (42.0-52.0) % MCV (80.0-100.0) fL MCH (25.0-34.0) pg MCHC (32.0-36.0) g/dL RDW Std Deviation (36.4-46.3) fL RDW Coeff of Kvng (11.5-14.5) % Plt Count (130-400) K/uL MPV (9.4-12.4) fL Immature Gran % (Auto) % Neut % (Auto) % Lymph % (Auto) % [place] % (Auto) % Eos % (Auto) % Baso % (Auto) % Neut # (Auto) (1.40-6.50) K/uL Lymph # (Auto) (1.20-3.40) K/uL [place] # (Auto) (0.11-0.59) K/uL Eos # (Auto) (0.00-0.50) K/uL Baso # (Auto) (0.00-0.20) K/uL Immature Gran # (Auto) (0.01-0.20) K/uL Absolute Nucleated RBC (0.00-0.12) K/uL Nucleated RBC % (auto) % ESR (0-20) mm/hr Sodium (136-145) mmol/L Potassium (3.5-5.1) mmol/L Chloride (98-107) mmol/L Carbon Dioxide (21-32) mmol/L Anion Gap (3-11) BUN (6-23) mg/dl Creatinine (0.6-1.4) mg/dl Est Cr Clr Drug Dosing ml/min Est GFR ( Amer) ml/min Est GFR (Non-Af Amer) ml/min BUN/Creatinine Ratio (10-20) Glucose (70-99(Fasting)) mg/dl Lactate (0.4-2.0) mmol/L Calcium (8.6-10.3) mg/dl Total Bilirubin (0.2-1.0) mg/dl AST (13-39) U/L ALT (7-52) U/L Alkaline Phosphatase (34-104) U/L Troponin I High Sens (0-20) pg/ml C-Reactive Protein (0-0.5) mg/dl Total Protein (6.0-8.3) gm/dl Albumin (3.4-5.0) gm/dl Globulin (2.5-4.0) gm/dl Albumin/Globulin Ratio (0.9-2) Procalcitonin (0-0.5) ng/ml Urine Color Urine Appearance (Clear) Urine pH (4.5-7.5) Ur Specific [place] (1.000-1.030) Urine Protein (Negative) Urine Glucose (UA) (Negative) Urine Ketones (Negative) Urine Blood (Negative) Urine Nitrite (Negative) Urine Bilirubin (Negative) Urine Urobilinogen (Negative) Ur Leukocyte Esterase (Negative) Urine WBC (Auto) (0-5) /hpf Urine RBC (Auto) (0-4) /hpf U Hyaline Cast (Auto) (0-5) /lpf U Epithel Cells (Auto) (0-5) /lpf Urine Bacteria (Auto) (Negative) Fluid Comment Synovial Source Left Knee Synovial Color Kayli Synovial Appearance Cloudy Synovial WBC (Auto) 22589 H (0-200) /ul Synovial RBC (Auto) 05343 /uL Synovial Polynuclear % 78.3 % Synovial Mononuclear % 21.7 % Synovial Crystals Adenovirus (PCR) Not Detected (NotDetected) Anaplasma Smear B. pertussis DNA (PCR) Not Detected (NotDetected) B.parapertussis DNA PCR Not Detected (NotDetected) Lyme Disease Screen (Negative) C. pneumoniae DNA (PCR) Not Detected (NotDetected) Coronavirus OC43 (PCR) Not Detected (NotDetected) Coronavirus HKU1 (PCR) Not Detected (NotDetected) Coronavirus 229E (PCR) Not Detected (NotDetected) SARS-CoV-2 (PCR) Not Detected (NotDetected) Coronavirus NL63 (PCR) Not Detected (NotDetected) Enterococc faecalis PCR (NotDetected) Human Metapneumovir PCR Not Detected (NotDetected) Influenza Type A (PCR) Not Detected (NotDetected) Influenza Type B (PCR) Not Detected (NotDetected) M. pneumoniae (PCR) Not Detected (NotDetected) Parainfluenza 1 (PCR) Not Detected (NotDetected) Parainfluenza 2 (PCR) Not Detected (NotDetected) Parainfluenza 3 (PCR) Not Detected (NotDetected) Parainfluenza 4 (PCR) Not Detected (NotDetected) RSV (PCR) Not Detected (NotDetected) Entero/Rhino (PCR) Not Detected (NotDetected) Aaron/B-Vanco Res Genes (NotDetected) Bld Cult ID Panel PCR (NotDetected) Administered Medications Acetaminophen (Acetaminophen 325 Mg Tab) 650 mg PO Q4H PRN PRN Reason: Pain or Fever Stop: 08/25/23 21:45 Last Admin: 07/27/23 18:56 Dose: 650 mg Documented By: Admin: 07/27/23 02:29 Dose: 650 mg Documented By: SND Clopidogrel Bisulfate (Clopidogrel Bisulfate 75 Mg Tab) 75 mg PO QAM [facility] Stop: 08/26/23 08:59 Last Admin: 07/27/23 08:24 Dose: 75 mg Documented By: Cyanocobalamin (Cyanocobalamin (B-12) 500 Mcg Tablet) 1,000 mcg PO QAM [facility] Stop: 08/26/23 08:59 Last Admin: 07/27/23 08:23 Dose: 1,000 mcg Documented By: Doxepin HCl (Doxepin Hcl 10 Mg Capsule) 10 mg PO HS [facility] Stop: 08/25/23 21:45 Last Admin: 07/27/23 21:08 Dose: 10 mg Documented By: Admin: 07/26/23 23:06 Dose: 10 mg Documented By: GABY Duloxetine HCl (Duloxetine Hcl 60 Mg Cap) [facility] [place] Stop: 08/26/23 08:59 Last Admin: 07/27/23 08:24 Dose: 60 mg Documented By: Folic Acid (Folic Acid 400 Mcg Tab) [facility] [place] Stop: 08/26/23 08:59 Last Admin: 07/27/23 08:23 Dose: 400 mcg Documented By: Gabapentin (Gabapentin 800 Mg Tab) 800 mg PO TID [facility] Stop: 08/25/23 21:45 Last Admin: 07/27/23 21:08 Dose: 800 mg Documented By: Admin: 07/27/23 14:45 Dose: 800 mg Documented By: Admin: 07/27/23 08:22 Dose: 800 mg Documented By: Admin: 07/26/23 23:05 Dose: 800 mg Documented By: GABY Hydromorphone HCl (Hydromorphone Inj 0.5 Mg/0.5 Ml Syr) 0.25 mg IV Q4H PRN PRN Reason: Pain Stop: 08/10/23 12:02 Last Admin: 07/28/23 06:09 Dose: 0.25 mg Documented By: Admin: 07/28/23 00:40 Dose: 0.25 mg Documented By: Admin: 07/27/23 19:45 Dose: 0.25 mg Documented By: Admin: 07/27/23 15:43 Dose: 0.25 mg Documented By: Potassium Chloride/Sodium Chloride (Normal Saline W/20 Meq Kcl) 20 meq in 1,000 mls @ 50 mls/hr IV .Q20H LULU; Protocol Stop: 08/25/23 17:59 Last Admin: 07/28/23 04:44 Dose: 50 mls/hr Documented By: Infusion: 07/28/23 04:43 Dose: Infused Documented By: Admin: 07/27/23 15:09 Dose: 100 mls/hr Documented By: Infusion: 07/27/23 15:09 Dose: Infused Documented By: Admin: 07/27/23 06:09 Dose: 100 mls/hr Documented By: Infusion: 07/27/23 05:04 Dose: Infused Documented By: Admin: 07/26/23 19:04 Dose: 100 mls/hr Documented By: LUIS Heparin Sodium/Dextrose (Heparin Sodium/Dextrose) 25,000 units in 500 mls @ 0 mls/hr IV .Q0M LLUU; Protocol Stop: 08/25/23 18:29 Last Titration: 07/28/23 05:55 Dose: 0 units/hr, 0 mls/hr Documented By: GABY Co-signed By: GIBSON Admin: 07/27/23 17:41 Dose: 1,100 units/hr, 22 mls/hr Documented By: Co-signed By: SAE Titration: 07/27/23 17:41 Dose: Infused Documented By: Co-signed By: SAE Titration: 07/27/23 07:26 Dose: 1,100 units/hr, 22 mls/hr Documented By: GABY Co-signed By: Titration: 07/27/23 04:39 Dose: 1,100 units/hr, 22 mls/hr Documented By: GABY Co-signed By: DE Titration: 07/27/23 02:38 Dose: 0 units/hr, 0 mls/hr Documented By: GABY Co-signed By: DE Admin: 07/26/23 19:18 Dose: 1,400 units/hr, 28 mls/hr Documented By: LUIS Co-signed By: BLAIR Cefepime HCl 2,000 mg/ Syringe 20 mls @ 5 mls/min IV Q8H LULU; Protocol Stop: 09/07/23 00:00 Last Admin: 07/27/23 23:56 Dose: 5 mls/min Documented By: Admin: 07/27/23 15:43 Dose: 5 mls/min Documented By: Admin: 07/27/23 08:17 Dose: 5 mls/min Documented By: Admin: 07/26/23 23:31 Dose: 5 mls/min Documented By: GABY Vancomycin HCl 1,500 mg/ (Sodium Chloride) 530 mls @ 200 mls/hr IV Q12H [facility] Stop: 09/07/23 05:59 Last Admin: 07/28/23 06:10 Dose: 200 mls/hr Documented By: Infusion: 07/27/23 21:01 Dose: Infused Documented By: Admin: 07/27/23 17:46 Dose: 200 mls/hr Documented By: Insulin Aspart (Insulin Aspart Per Unit Charge) 0 units SC ACHS [facility] Stop: 08/25/23 21:45 Last Admin: 07/27/23 20:54 Dose: Not Given Documented By: Admin: 07/27/23 17:41 Dose: 5 units Documented By: Co-signed By: SAE Admin: 07/27/23 12:40 Dose: Not Given Documented By: Admin: 07/27/23 08:35 Dose: Not Given Documented By: Admin: 07/26/23 21:56 Dose: Not Given Documented By: GABY Magnesium Oxide (Magnesium Oxide 400 Mg Tab) [facility] [place] Stop: 08/26/23 08:59 Last Admin: 07/27/23 08:22 Dose: 400 mg Documented By: Metoprolol Tartrate (Metoprolol Tartrate 50 Mg Tab) 50 mg PO BID [facility] [place] Stop: 08/25/23 21:45 Last Admin: 07/27/23 21:07 Dose: 50 mg Documented By: Admin: 07/27/23 08:24 Dose: 50 mg Documented By: Admin: 07/26/23 21:56 Dose: Not Given Documented By: GABY Nicotine (Nicotine 14 Mg/24 Hr Patch) [facility] [place] Stop: 08/26/23 12:44 Last Admin: 07/27/23 15:08 Dose: 14 mg Documented By: Pantoprazole Sodium (Pantoprazole 40 Mg Tab) [facility] [place] Stop: 08/26/23 08:59 Last Admin: 07/27/23 08:23 Dose: 40 mg Documented By: Tamsulosin HCl (Tamsulosin Hcl 0.4 Mg Cap) 0.4 mg PO HS [facility] [place] Stop: 08/25/23 21:45 Last Admin: 07/27/23 21:08 Dose: 0.4 mg Documented By: Admin: 07/26/23 23:05 Dose: 0.4 mg Documented By: GABY Tramadol HCl (Tramadol Hcl 50 Mg Tablet) 100 mg PO BID [facility] [place] Stop: 08/25/23 21:45 Last Admin: 07/27/23 21:08 Dose: 100 mg Documented By: Admin: 07/27/23 08:23 Dose: 100 mg Documented By: Admin: 07/26/23 23:21 Dose: 100 mg Documented By: GABY Vitamin D (Cholecalciferol 125 Mcg (5,000 Units) Tab) 125 mcg PO QAM [facility] [place] Stop: 08/26/23 08:59 Last Admin: 07/27/23 08:25 Dose: 125 mcg Documented By: Discontinued Medications Acetaminophen (Acetaminophen 500 Mg Tab) 1,000 mg PO ONCE ONE Stop: 07/27/23 18:18 Last Admin: 07/27/23 19:00 Dose: 1,000 mg Documented By: Colchicine (Colchicine 0.6 Mg Tab) 0.6 mg PO BID [facility] [place] Stop: 08/25/23 21:29 Last Admin: 07/27/23 08:25 Dose: 0.6 mg Documented By: Admin: 07/26/23 23:06 Dose: 0.6 mg Documented By: GABY Fentanyl Citrate (Fentanyl Citrate Pf 100 Mcg/2 Ml Vial) 25 mcg IV NOW STA Stop: 07/26/23 19:56 Last Admin: 07/26/23 20:11 Dose: 25 mcg Documented By: LUIS Hydromorphone HCl (Hydromorphone Inj 0.5 Mg/0.5 Ml Syr) 0.25 mg IV NOW STA Stop: 07/27/23 10:47 Last Admin: 07/27/23 11:18 Dose: 0.25 mg Documented By: Sodium Chloride (Nss) 1,000 mls @ 999 mls/hr IV .Q1H1M STA Stop: 07/26/23 15:53 Last Infusion: 07/26/23 16:23 Dose: Infused Documented By: Admin: 07/26/23 15:16 Dose: 999 mls/hr Documented By: WILFRED Acetaminophen (Ofirmev) 1,000 mg in 100 mls @ 400 mls/hr IV NOW STA Stop: 07/26/23 15:07 Last Infusion: 07/26/23 16:23 Dose: Infused Documented By: Admin: 07/26/23 15:14 Dose: 400 mls/hr Documented By: WILFRED Cefepime HCl (Maxipime) 2,000 mg in 20 mls @ 5 mls/min IV NOW STA; Protocol Stop: 07/26/23 14:56 Last Admin: 07/26/23 15:22 Dose: 5 mls/min Documented By: WILFRED Vancomycin HCl 2,250 mg/ (Sodium Chloride) 545 mls @ 200 mls/hr IV NOW ONE Stop: 07/26/23 19:36 Last Infusion: 07/26/23 22:32 Dose: Infused Documented By: Admin: 07/26/23 18:18 Dose: 200 mls/hr Documented By: WILFRED Sodium Chloride (Nss) 1,000 mls @ 150 mls/hr IV .Q6H40M [facility] [place] Stop: 08/25/23 17:14 Last Admin: 07/26/23 18:36 Dose: Not Given Documented By: LUIS Vancomycin HCl 1,250 mg/ (Sodium Chloride) 275 mls @ 200 mls/hr IV Q12H [facility] [place] Stop: 09/07/23 05:59 Last Infusion: 07/27/23 07:58 Dose: Infused Documented By: Admin: 07/27/23 06:26 Dose: 200 mls/hr Documented By: GABY Magnesium Sulfate/Dextrose (Magnesium Sulfate / D5w) 1 gm in 100 mls @ 50 mls/hr IV Q2H [facility] [place] Stop: 07/27/23 11:59 Last Infusion: 07/27/23 12:33 Dose: Infused Documented By: Admin: 07/27/23 10:20 Dose: 50 mls/hr Documented By: Infusion: 07/27/23 10:20 Dose: Infused Documented By: Admin: 07/27/23 08:36 Dose: 50 mls/hr Documented By: Ioversol (Optiray 320 125ml) 117 ml IV ONCE ONE Stop: 07/26/23 15:51 Last Admin: 07/26/23 15:51 Dose: 117 ml Documented By: CHACHA Lidocaine HCl (Lidocaine 1% Local 20 Ml Vial) 10 ml INFIL NOW ONE Stop: 07/26/23 15:25 Last Admin: 07/26/23 16:44 Dose: 10 ml Documented By: MIAN Miscellaneous (Heparin~Stop Order) 1 each N/A ONE ONE Stop: 07/28/23 06:01 Last Admin: 07/28/23 06:09 Dose: 1 each Documented By: GABY Morphine Sulfate (Morphine Sulfate 4 Mg/Ml 1 Ml Carp\\Vial) 4 mg IV NOW STA Stop: 07/26/23 16:20 Last Admin: 07/26/23 16:44 Dose: 4 mg Documented By: WILFRED Morphine Sulfate (Morphine Sulfate 2 Mg/Ml Carp) 1 mg IV NOW STA Stop: 07/27/23 00:49 Last Admin: 07/27/23 01:04 Dose: 1 mg Documented By: GABY Morphine Sulfate (Morphine Sulfate 2 Mg/Ml Carp) 2 mg IV Q3H PRN PRN Reason: Pain Stop: 08/10/23 07:58 Last Admin: 07/27/23 08:14 Dose: 2 mg Documented By: Ondansetron HCl (Ondansetron Inj 2 Mg/Ml 2 Ml Vial) 4 mg IV NOW STA Stop: 07/26/23 16:20 Last Admin: 07/26/23 16:44 Dose: 4 mg Documented By: WILFRED Pneumococcal 20-Valent Conj Vacc (Pneumococcal Vaccine (Pcv20) 20-Cheri Conj-Dip Crm/Pf 0.5 Ml Syr) 0.5 ml IM .ONCE ONE Stop: 07/26/23 22:20 Last Admin: 07/27/23 08:07 Dose: Not Given Documented By: Imaging Data Radiologist's Impression: Chest X-Ray 07/26/23 14:54 XR chest 1V portable HISTORY: 63 years-old Male Fever COMPARISON: 03/21/2023 TECHNIQUE: Supine AP view of the chest FINDINGS: Cardiac silhouette is enlarged. No pneumothorax, pleural effusion, airspace consolidation or pulmonary edema. Degenerative changes of the shoulders and spine. Partially imaged stimulator leads overlie the mid thoracic spine with battery pack projected over the left upper quadrant abdomen. Cervical spinal fusion hardware. IMPRESSION: No acute process. ACT 112: Negative or not required by law. The above report was generated using voice recognition software. It may contain grammatical, syntax or spelling errors. Electronically signed by: Juan Cid M.D. 07/26/2023 3:[address] 07/26/23 15:00 CT head/brain wo con CLINICAL HISTORY: 63 years-old Male with AMS, fever recent fall. Acute fever with altered mental status. TECHNIQUE: Multiple axial CT images of the head were obtained without contrast. A dose lowering technique was utilized adhering to the principles of ALARA. COMPARISON: CTA neck of same day FINDINGS: No acute intracranial hemorrhage, midline shift, intracranial mass, hydrocephalus, territorial ischemia or abnormal extra-axial collection. And involutional changes with suggestion of mild chronic microvascular ischemic disease. The calvarium is intact. The paranasal sinuses, mastoid air cells, and middle ear cavities are clear. IMPRESSION: No acute intracranial abnormality. ACT 112: Negative or not required by law. The above report was generated using voice recognition software. It may contain grammatical, syntax or spelling errors. Electronically signed by: Juan Cid M.D. 07/26/2023 4:13 PM Knee X-Ray 07/26/23 15:00 XR knee LT 1 or 2V routine HISTORY: 63 years-old Male ? septic joint chronic left knee pain COMPARISON: 06/02/2017 TECHNIQUE: 2 views of the left knee FINDINGS: Moderate-sized joint effusion. Total joint arthroplasty with patellar resurfacing. No acute fracture or dislocation. Arterial calcifications. Lucency is noted at the interface with the dorsal patella and the patellar hardware with tiny adjacent subcentimeter bone fragments. IMPRESSION: 1. No acute fracture or dislocation. 2. Total joint arthroplasty with possible loosening of the patellar hardware. 3. Moderate-sized joint effusion. ACT 112: Negative or not required by law. The above report was generated using voice recognition software. It may contain grammatical, syntax or spelling errors. Electronically signed by: Juan Cid M.D. 07/26/2023 3:21 PM Neck CTA 07/26/23 15:40 CT angio neck with con CLINICAL HISTORY: 63 years-old Male with per vascular surg, R carotid occlusion. History of right carotid occlusion COMPARISON STUDY: CT cervical spine 02/18/2013, CTA chest 03/11/2023 TECHNIQUE: Following the IV administration of 118 of Optiray, CT angiogram of the neck was performed from the aortic arch to the skull base. Images are reviewed in the axial, sagittal, and coronal planes. 3-D MIPS images are created and assessed. IV contrast was administered without complication. All measurements were calculated based on NASCET criteria. A dose lowering technique was utilized adhering to the principles of ALARA. CT DOSE: 1161.24 mGy.cm FINDINGS: Three-vessel morphology of the thoracic aortic arch. Patency of the innominate and image subclavian arteries. Common carotid arteries are patent. Severe calcified plaque of the carotid bulbs and proximal cervical segments results in 70% stenosis of the left ICA on image 236 and 80% stenosis of the right ICA on image 227. There is greater than 50% stenosis involving the cavernous, clinoid and supraclinoid segments of the internal carotid arteries. The vertebral arteries are codominant. A high-grade stenosis at the origins of the vertebral arteries appears chronic. No pneumothorax. 4 mm solid nodule in the right lung apex on image 82 previously measured 2 mm. Unremarkable soft tissues. Degenerative changes of the cervical spine with anterior fusion hardware. IMPRESSION: 1. Extensive atherosclerosis of the carotid bulbs results in high-grade narrowing of the proximal cervical segments of the internal carotid arteries. 2. High-grade stenosis at the origin of the vertebral arteries. 3. 4 mm solid nodule noted within the apical segment right upper lobe. Six-month follow-up chest CT recommended. ACT 112: Negative or not required by law. The above report was generated using voice recognition software. It may contain grammatical, syntax or spelling errors. Electronically signed by: Juan Cid M.D. 07/26/2023 4:23 PM Discharge Plan Visit Data Chief Complaint: Fever Stated Complaint: knee pain, fever, chills ED Provider: Luci Coles Discharge Problem: Encephalopathy, Peripheral vascular disease, Fever, Effusion of knee joint, left, History of total knee arthroplasty Patient Disposition: Admitted As Inpatient Discharge Instructions Interventions: ED Discharge Assessment Last Done: 07/26/23 21:21 Procedures Joint Aspiration/Injection Joint Asp./Inject. 1: Side of body: left Joint Aspirated: knee Ultrasound Guidance: No Skin Prep: Povidone-Iodine1% Local Anesthetic: lidocaine 1% Amount of anesthesia used (mL): 1 Needle Size Used: 18G Fluid Obtained: turbid Total fluid obtained (mL): 30 Patient Tolerated Procedure: well Complications: none Discharge Problem: Fever Qualifiers: Fever type: due to other condition Qualified Code(s): R50.81 - Fever presenting with conditions classified elsewhere History of total knee arthroplasty Qualifiers: Laterality: left Qualified Code(s): Z96.652 - Presence of left artificial knee joint
[2023-07-26 15:38] LABS: Appearance Urine Clear (Clear); Bacteria Urine Automated Negative (Negative); Bilirubin Urine Negative (Negative); Blood Urine Negative (Negative); Color Urine Yellow; Epithelial Cell Urine Auto 0-5 /lpf (0-5); Glucose Urine UA Negative (Negative); Ketones Urine Negative (Negative); Leukocyte Esterase Urine Negative (Negative); Nitrite Urine Negative (Negative); Protein Urine 1+ (Negative); RBC Urine Automated 0-4 /hpf (0-4); Urobilinogen Urine Negative (Negative); pH Urine 5.5 (4.5-7.5)
[2023-07-26 15:45] LABS: Albumin Globulin Ratio 1.2 (0.9-2); Albumin Level 3.8 gm/dl (3.4-5.0); BUN Creatinine Ratio 20.4 (10-20); Bilirubin,Total 0.3 mg/dl (0.2-1.0); Calcium 8.9 mg/dl (8.6-10.3); Creatinine Clr Calc Pharmacy 83.6 ml/min; Est GFR (African American) 93.4 ml/min; Est GFR (Non-African American) 80.6 ml/min; Globulin 3.2 gm/dl (2.5-4.0)
[2023-07-26] MEDS: OPTIRAY 320 125ml IV ONE (15:51)
[2023-07-26 15:52] LABS: Troponin I High Sensitivity 13.1 pg/ml (0-20)
--- NOTE | 2023-07-26 16:15 | CT Scan Report ---
CT head/brain wo con CLINICAL HISTORY: 63 years-old Male with AMS, fever recent fall. Acute fever with altered mental sta tus. TECHNIQUE: Multiple axial CT images of the head were obtained without contrast. A dose lowering tech nique was utilized adhering to the principles of ALARA. COMPARISON: CTA neck of same day FINDINGS: No acute intracranial hemorrhage, midline shift, intracranial mass, hydrocephalus, territorial ischem ia or abnormal extra-axial collection. And involutional changes with suggestion of mild chronic micro vascular ischemic disease. The calvarium is intact. The paranasal sinuses, mastoid air cells, and middle ear cavities are clear . IMPRESSION: No acute intracranial abnormality. ACT 112: Negative or not required by law. The above report was generated using voice recognition software. It may contain grammatical, syntax o r spelling errors. Electronically signed by: Juan Cid M.D. 07/26/2023 4:13 PM
--- NOTE | 2023-07-26 16:25 | CT Scan Report ---
CT angio neck with con CLINICAL HISTORY: 63 years-old Male with per vascular surg, R carotid occlusion. History of right carotid occlusion COMPARISON STUDY: CT cervical spine 02/18/2013, CTA chest 03/11/2023 TECHNIQUE: Following the IV admi nistration of 118 of Optiray, CT angiogram of the neck was performed from the aortic arch to the skul l base. Images are reviewed in the axial, sagittal, and coronal planes. 3-D MIPS images are created a nd assessed. IV contrast was administered without complication. All measurements were calculated base d on NASCET criteria. A dose lowering technique was utilized adhering to the principles of ALARA. CT DOSE: 1161.24 mGy.cm FINDINGS: Three-vessel morphology of the thoracic aortic arch. Patency of the innominate and image temple bclavian arteries. Common carotid arteries are patent. Severe calcified plaque of the carotid bulbs a nd proximal cervical segments results in 70% stenosis of the left ICA on image 236 and 80% stenosis o f the right ICA on image 227. There is greater than 50% stenosis involving the cavernous, clinoid and supraclinoid segments of the internal carotid arteries. The vertebral arteries are codominant. A hig h-grade stenosis at the origins of the vertebral arteries appears chronic. No pneumothorax. 4 mm solid nodule in the right lung apex on image 82 previously measured 2 mm. Unrem arkable soft tissues. Degenerative changes of the cervical spine with anterior fusion hardware. IMPRESSION: 1. Extensive atherosclerosis of the carotid bulbs results in high-grade narrowing of the proximal cer vical segments of the internal carotid arteries. 2. High-grade stenosis at the origin of the vertebral arteries. 3. 4 mm solid nodule noted within the apical segment right upper lobe. Six-month follow-up chest CT r ecommended. ACT 112: Negative or not required by law. The above report was generated using voice recognition software. It may contain grammatical, syntax o r spelling errors. Electronically signed by: Juan Cid M.D. 07/26/2023 4:23 PM
[2023-07-26] MEDS: MoRPHine SULFATE 4 MG/ML 1 ML CARP\\VIAL IV STA (16:44)
[2023-07-26] MEDS: ONDANSETRON INJ 2 MG/ML 2 ML VIAL IV STA (16:44)
[2023-07-26] MEDS: LIDOCAINE 1% LOCAL 20 ML VIAL INFIL ONE (16:44)
[2023-07-26 16:48] LABS: C Reactive Protein 16.45 mg/dl (0-0.5)
[2023-07-26] MEDS ORDERED: VANCOMYCIN CONSULT ACTIVE PRN ×2 (16:53→21:46)
[2023-07-26 16:58] LABS: Adenovirus PCR Not Detected (NotDetected); Bordetella parapertussis PCR Not Detected (NotDetected); Bordetella pertussis PCR Not Detected (NotDetected); Chlamydia pneumoniae PCR Not Detected (NotDetected); Coronavirus 229E PCR Not Detected (NotDetected); Coronavirus CoV-2 (COVID19)PCR Not Detected (NotDetected); Coronavirus HKU1 PCR Not Detected (NotDetected); Coronavirus NL63 PCR Not Detected (NotDetected); Coronavirus OC43PCR Not Detected (NotDetected); Human Metapneumovirus PCR Not Detected (NotDetected); Influenza A PCR Not Detected (NotDetected); Influenza B PCR Not Detected (NotDetected); Mycoplasma pneumoniae PCR Not Detected (NotDetected); Parainfluenza Virus 1 PCR Not Detected (NotDetected); Parainfluenza Virus 2 PCR Not Detected (NotDetected); Parainfluenza Virus 3 PCR Not Detected (NotDetected); Parainfluenza Virus 4 PCR Not Detected (NotDetected); Respiratory Syncytial VirusPCR Not Detected (NotDetected); Rhinovirus/Enterovirus PCR Not Detected (NotDetected)
[2023-07-26 17:22] LABS: Appearance Synovial Fluid Cloudy; Color Synovial Fluid Amber; Mononuclear WBC Synovial 21.7 %; Polynuclear WBC Synovial 78.3 %; RBC Synovial Fluid Auto 20000 /uL; Source Synovial Fluid Left Knee; WBC Synovial Fluid Auto 36520 /ul (0-200)
--- NOTE | 2023-07-26 18:09 | History & Physical Report ---
Date of Service July 26, 2023 Assessment & Plan (1) Painful total knee replacement, left: (2) Idiopathic polyneuropathy: (3) Stenosis of both vertebral arteries: (4) Peripheral vascular disease: (5) On apixaban therapy: (6) Chronic anticoagulation: (7) Alcohol use: (8) Tobacco use disorder: (9) Anxiety and depression: Plan Painful left TKA- Emergency department reports draining 120 cc of puslike material Follow culture and sensitivity Follow blood culture and sensitivity Tickborne studies Empiric treatment with colchicine for possible gout Empiric antibiotics with vancomycin and cefepime IV Acetaminophen 650 mg by mouth every 6 hours as needed for mild pain or fever Tramadol 100 mg p.o. twice daily continued from outpatient setting Pain management options are limited due to patient's relatively low blood pressure Orthopedic surgery Dr. Alesha caruso As been consulted. If surgery is to be performed, it would not likely be performed before 48 hours due to use of apixaban Consult vascular surgery Dr. Garcia Consult cardiology Dr. 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 twice daily with hold parameters Continue clopidogrel 75 mg every morning Hold apixaban, with last dosing 6:30 in the morning, and start heparin drip at 6:30 PM this evening Tobacco use/alcohol use- Stressed the importance to patient and family have complete cessation Family reports he has been smoking more lately to help deal with the stress of his situation History of Present Illness Chief Complaint: The patient presents to the emergency department due to worsening left knee pain and swelling that began from a fall a few days ago, and today developed fever and disorientation and confusion Primary Care Provider: Nitish Lam MD The patient is a 63-year-old male with a past medical history including idiopathic polyneuropathy, right ICA stenosis, peripheral vascular disease, atrial fibrillation with RVR, hyponatremia, chronic anticoagulation with apixaban, 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 The patient presents to the emergency department due to concerns regarding worsening left knee swelling afte r a fall a few days ago, and today developed a temperature and became disoriented and confused. Allergies Allergy/AdvReac Type Severity Reaction Status Date / Time latex Allergy Unknown Rash Verified 07/18/23 11:58 Penicillins Allergy Unknown Rash Verified 07/18/23 11:58 adhesive AdvReac Unknown Rash Verified 07/18/23 11:58 dronedarone AdvReac Unknown Fatigued Verified 07/18/23 11:58 gemfibrozil AdvReac Unknown BODY ACHES Verified 07/18/23 11:58 NSAIDS (Non-Steroidal AdvReac Unknown TOLD NOT Verified 07/18/23 11:58 Anti-Inflamma TO TAKE - HX STOMACH ULCER Gtjoxzi-[id number]-TiQ Reductase AdvReac Unknown body aches Verified 07/18/23 11:58 Inhibitor [Qtvppav-Yzw-Mry Reductase Inhibitor] Home Medications Medication Instructions Recorded Confirmed Type acetaminophen 650 mg 650 mg PO UD PRN ARTHRITIS PAIN 12/06/20 07/26/23 History tablet,extended release folic acid 400 mcg tablet 0.4 mg PO QAM 04/23/22 07/26/23 History cholecalciferol (vitamin D3) 125 125 mcg PO QAM 08/14/22 07/26/23 History mcg (5,000 unit) capsule cyanocobalamin (vitamin B-12) 1,000 mcg PO QAM 08/26/22 07/26/23 History 1,000 mcg tablet (Vitamin B-12) glimepiride 1 mg tablet 1 mg PO QAM #90 tabs 02/03/23 07/26/23 Rx lisinopril 40 mg tablet 40 mg PO QAM #90 tabs 02/03/23 07/26/23 Rx metoprolol tartrate 100 mg tablet 50 mg PO BID 03/25/23 07/26/23 History tramadol 50 mg tablet 100 mg (2 x 50 mg) PO BID #120 tabs 06/09/23 07/26/23 Rx gabapentin 400 mg capsule 800 mg (2 x 400 mg) PO TID #180 06/25/23 07/26/23 Rx caps apixaban 5 mg tablet (Eliquis) 5 mg PO BID #180 tabs 06/30/23 07/26/23 Rx duloxetine 60 mg capsule,delayed 60 mg PO QAM #90 caps 07/02/23 07/26/23 Rx release (Cymbalta) metformin 500 mg tablet,extended 2,000 mg (4 x 500 mg) PO QAM #360 07/02/23 07/26/23 Rx release 24 hr tabs pantoprazole 40 mg tablet,delayed 40 mg PO QAM #90 tabs 07/02/23 07/26/23 Rx release evolocumab 140 mg/mL subcutaneous 140 mg subcut .every 2 weeks #6 mL 07/15/23 07/26/23 Rx pen injector (Sally Bentonick) clopidogrel 75 mg tablet (Plavix) 75 mg PO QAM 07/18/23 07/26/23 History doxepin 10 mg capsule 10 mg PO HS 07/18/23 07/26/23 History magnesium oxide 400 mg PO QAM 07/18/23 07/26/23 History tamsulosin 0.4 mg capsule 0.4 mg PO HS 07/18/23 07/26/23 History Past Med/Surg History Medical History (Updated 07/27/23 @ 05:18 by Orville Conklin MD) Nocturia Presence of neurostimulator Hx of atrial flutter ablation done 01/2023 [facility] [place] Diabetic neuropathy History of cardioversion 01/2021, [facility]; F/U DR. [place] Hx of transesophageal echocardiography (GLADYS) for monitoring 01/2021, 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 History of chronic back pain Neurogenic claudication due to lumbar stenosis History of COVID-19 03/18/2022>resolved 06/28/23 + home test - congestion. Tx with pill. Resolved. No current s/s. History of anxiety Paroxysmal atrial flutter 01/2021- s/p cardoversion- with excessive alcohol intake- felt to be contributing component. No AC. No recurrence per PCP records 07/29/22- - Recurrence in preop area prior to surgery - sent from ACU to ED- admitted to [facility] 07/29/22-07/30/22 Alcohol abuse Pt admits to >4 beers daily Bilateral carotid artery stenosis Per 11/2021 Carotid Doppler: 50-69% stenosis of right ICA, less than 50% stenosis of left ICA, greater than 50% stenosis of right ECA Antegrade flow in both vertebral arteries CAD in [place] artery s/p LAD stent x2 () History of gastric ulcer No recent issues Degenerative disc disease GERD (gastroesophageal reflux disease) Well controlled and stable Diabetes mellitus, type 2 NIDDM Hypertension Hyperlipidemia Sleep apnea "Mild to moderate"-cpap has not been using for sometimes/recently been trying to get back to using. Has trouble tolerating mask. Myocardial infarction Anterolateral SC- 2008, [place], had cardiac cath; f/u [facility] Surgical History (Updated 07/18/23 @ 12:20 by Brian Da Silva RN) Presence of neurostimulator 2022 History of cardiac radiofrequency ablation 04/09/2023 [facility] [place] for a-flutter S/P insertion of iliac artery stent Dec 2022? about 6 mon ago/ Dr. Garcia/2 stents. History of endarterectomy Left Femoral Endarterectomy with Bovine Patch 05/08/2022 & right side done 05/28/2023 Hx of cataract extraction rt/lt. History of anesthesia reaction WITH BACK SURGERY 2004 - DISORIENTED, PULLED CATHETER OUT ([facility]) Fusion of spine CERVICAL, "HAVE 80% OF MOTION" History of lumbar surgery X 3 - 2004, 2006, 2019 History of total knee replacement RT/LEFT (LEFT REVISION) Hx of transurethral resection of prostate History of esophagogastroduodenoscopy (EGD) History of colonoscopy History of nasal septoplasty History of heart artery stent 2006 or 2007, x2 stent, [place]; f/u [facility] Family History Mother Family history of diabetes mellitus Father Family history of diabetes mellitus Other No family history of adverse response to anesthesia Denies family history of Ovarian cancer Prostate cancer Myocardial infarction Breast cancer Colorectal cancer Social History Smoking Status: Current every day smoker Tobacco Type: Cigarettes Age Started Using Tobacco: 18; Cigarettes Per Day: 10 cigs per day/advised npo; Second Hand Exposure: No; Do You Dip or Chew Tobacco: No; Tobacco Cessation Education Requested by Patient: No Hx Alcohol Use: Yes Alcohol type: beer Alcohol type Comment: 6-8 beers Hx Substance Use: No Preferred Language: Yi Communication Ability: Effective Visual Impairment: No Limitations Claims Counsel Required: No Beliefs That Will Affect Care: None marital status: Current Living Situation: Spouse Current Living Situation Comment: Lives at home with How many Children do You have: 4 Other Information That Helps Us Care for You: No Feels Safe at Home: Yes Safety Concerns: Feels Safe At This Time Childhood Exposure to Second-Hand Smoke: Yes Dental Care, Regularly: Yes Physical Activity Frequency: Does not Exercise Seatbelt Use: always Sunscreen Use: No Assistive Devices: CPAP, Glasses and Walker Review of Systems Review of Systems: The patient denies chest pain, palpitations, shortness of breath, dyspnea on exertion, cough, sore throat, nausea, vomiting, diarrhea , constipation, abdominal pain, pelvic pain, blood in urine or stool, dysuria, lightheadedness, dizziness, headache, memory loss, loss of consciousness, abnormal bruising or bleeding, focal or generalized weakness, numbness or tingling in arms , or night sweats. The review of systems is otherwise negative other than for that already noted above, and at least 10 systems have been reviewed. Physical Exam Physical Exam: The patient is awake, alert and oriented 3, well developed and well nourished, normocephalic and atraumatic, lying in bed and in no acute distress. HEENT--PERRL, EOMI, mucous membranes and oropharynx dry. Neck--supple. No JVD. No bruits. Thyroid normal, trachea midline, no adenopathy. Heart--normal S1 and S2. No murmurs, rubs or gallops. Lungs--clear bilaterally, no respiratory distress, no accessory muscle use. Abdomen--normal bowel sounds and soft. Nontender. Nondistended, no hernias or masses, no organomegaly. Extremities--No edema. Dermatologic--no rash Neurologic--cranial nerves II through XII grossly intact. Rheumatologic--normal range of motion except for left knee Psychiatric--normal affect. Results & Data Results & Data Vital Signs (Past 12 Hours) Vital Signs Temp Pulse Pulse Resp BP BP Pulse Ox 07/26/23 16:25 92 H 22 116/62 97 07/26/23 16:04 95 H 07/26/23 14:56 111 H 28 H 144/88 H 89 L 07/26/23 14:45 38.4 C H 104 H 24 165/68 H 93 O2 Del Method O2 Flow Rate 07/26/23 16:25 Nasal Cannula 2 07/26/23 16:04 07/26/23 14:56 Room Air 07/26/23 14:45 Room Air Laboratory Results Laboratory Results WBC 9.26 K/ul (4.8-10.8) 07/27/23 01:33 RBC 2.12 M/uL (4.70-6.10) L 07/27/23 01:33 Hgb 7.1 g/dl (14.0-18.0) L 07/27/23 01:33 Hct 22.5 % (42.0-52.0) L 07/27/23 01:33 MCV 106.1 fL (80.0-100.0) H 07/27/23 01:33 MCH 33.5 pg (25.0-34.0) 07/27/23 01:33 MCHC 31.6 g/dL (32.0-36.0) L 07/27/23 01:33 RDW Std Deviation 63.1 fL (36.4-46.3) H 07/27/23 01:33 RDW Coeff of Kvng 16.2 % (11.5-14.5) H 07/27/23 01:33 Plt Count 259 K/uL (130-400) 07/27/23 01:33 MPV 10.9 fL (9.4-12.4) 07/27/23 01:33 Immature Gran % (Auto) 1.4 % 07/27/23 01:33 Neut % (Auto) 68.2 % 07/27/23 01:33 Lymph % (Auto) 14.0 % 07/27/23 01:33 [place] % (Auto) 16.0 % 07/27/23 01:33 Eos % (Auto) 0.1 % 07/27/23 01:33 Baso % (Auto) 0.3 % 07/27/23 01:33 Neut # (Auto) 6.31 K/uL (1.40-6.50) 07/27/23 01:33 Lymph # (Auto) 1.30 K/uL (1.20-3.40) 07/27/23 01:33 [place] # (Auto) 1.48 K/uL (0.11-0.59) H 07/27/23 01:33 Eos # (Auto) 0.01 K/uL (0.00-0.50) 07/27/23 01:33 Baso # (Auto) 0.03 K/uL (0.00-0.20) 07/27/23 01:33 Immature Gran # (Auto) 0.13 K/uL (0.01-0.20) 07/27/23 01:33 Absolute Nucleated RBC 0.02 K/uL (0.00-0.12) 07/27/23 01:33 Nucleated RBC % (auto) 0.2 % 07/27/23 01:33 Polychromasia 1+ 07/27/23 01:33 ESR 53 mm/hr (0-20) H 07/26/23 14:55 PT 12.5 Seconds (9.0-12.0) H 07/26/23 19:03 INR 1.2 (0.9-1.1) H 07/26/23 19:03 APTT 36 Seconds (21-31) H 07/26/23 19:03 PTT Ratio 1.3 07/26/23 19:03 Heparin Anti-Xa, Unfract 1.05 IU/ml (0.3-0.7) H* 07/27/23 01:33 Sodium 130 mmol/L (136-145) L 07/27/23 01:33 Potassium 3.8 mmol/L (3.5-5.1) 07/27/23 01:33 Chloride 99 mmol/L (98-107) 07/27/23 01:33 Carbon Dioxide 23 mmol/L (21-32) 07/27/23 01:33 Anion Gap 8 (3-11) 07/27/23 01:33 BUN 15 mg/dl (6-23) 07/27/23 01:33 Creatinine 0.79 mg/dl (0.6-1.4) 07/27/23 01:33 Est Cr Clr Drug Dosing 119.7 ml/min 07/27/23 01:33 Est GFR ( Amer) 109.2 ml/min 07/27/23 01:33 Est GFR (Non-Af Amer) 94.2 ml/min 07/27/23 01:33 BUN/Creatinine Ratio 19.0 (10-20) 07/27/23 01:33 Glucose 103 mg/dl (70-99(Fasting)) H 07/27/23 01:33 POC Glucose 104 mg/dl (70-99) H 07/26/23 21:49 Lactate 1.1 mmol/L (0.4-2.0) 07/26/23 15:20 Calcium 7.8 mg/dl (8.6-10.3) L 07/27/23 01:33 Magnesium 1.4 mg/dl (1.7-2.4) L 07/27/23 01:33 Total Bilirubin 0.3 mg/dl (0.2-1.0) 07/27/23 01:33 AST 12 U/L (13-39) L 07/27/23 01:33 ALT 9 U/L (7-52) 07/27/23 01:33 Alkaline Phosphatase 54 U/L (34-104) 07/27/23 01:33 Troponin I High Sens 13.1 pg/ml (0-20) 07/26/23 14:52 C-Reactive Protein 16.45 mg/dl (0-0.5) H 07/26/23 14:52 Total Protein 6.0 gm/dl (6.0-8.3) 07/27/23 01:33 Albumin 3.2 gm/dl (3.4-5.0) L 07/27/23 01:33 Globulin 2.8 gm/dl (2.5-4.0) 07/27/23 01:33 Albumin/Globulin Ratio 1.1 (0.9-2) 07/27/23 01:33 Procalcitonin 0.12 ng/ml (0-0.5) 07/26/23 14:52 Urine Color Yellow 07/26/23 14:55 Urine Appearance Clear (Clear) 07/26/23 14:55 Urine pH 5.5 (4.5-7.5) 07/26/23 14:55 Ur Specific [place] 1.020 (1.000-1.030) 07/26/23 14:55 Urine Protein 1+ (Negative) H 07/26/23 14:55 Urine Glucose (UA) Negative (Negative) 07/26/23 14:55 Urine Ketones Negative (Negative) 07/26/23 14:55 Urine Blood Negative (Negative) 07/26/23 14:55 Urine Nitrite Negative (Negative) 07/26/23 14:55 Urine Bilirubin Negative (Negative) 07/26/23 14:55 Urine Urobilinogen Negative (Negative) 07/26/23 14:55 Ur Leukocyte Esterase Negative (Negative) 07/26/23 14:55 Urine WBC (Auto) 1-5 /hpf (0-5) 07/26/23 14:55 Urine RBC (Auto) 0-4 /hpf (0-4) 07/26/23 14:55 U Hyaline Cast (Auto) 1-5 /lpf (0-5) 07/26/23 14:55 U Epithel Cells (Auto) 0-5 /lpf (0-5) 07/26/23 14:55 Urine Bacteria (Auto) Negative (Negative) 07/26/23 14:55 Fluid Comment 07/26/23 16:51 Synovial Source Left Knee 07/26/23 16:51 Synovial Color Kayli 07/26/23 16:51 Synovial Appearance Cloudy 07/26/23 16:51 Synovial WBC (Auto) 42655 /ul (0-200) H 07/26/23 16:51 Synovial RBC (Auto) 76894 /uL 07/26/23 16:51 Synovial Polynuclear % 78.3 % 07/26/23 16:51 Synovial Mononuclear % 21.7 % 07/26/23 16:51 Adenovirus (PCR) Not Detected (NotDetected) 07/26/23 15:27 Anaplasma Smear See Comment 07/26/23 14:52 B. pertussis DNA (PCR) Not Detected (NotDetected) 07/26/23 15:27 B.parapertussis DNA PCR Not Detected (NotDetected) 07/26/23 15:27 Lyme Disease Screen Negative (Negative) 07/26/23 14:52 C. pneumoniae DNA (PCR) Not Detected (NotDetected) 07/26/23 15:27 Coronavirus OC43 (PCR) Not Detected (NotDetected) 07/26/23 15:27 Coronavirus HKU1 (PCR) Not Detected (NotDetected) 07/26/23 15:27 Coronavirus 229E (PCR) Not Detected (NotDetected) 07/26/23 15:27 SARS-CoV-2 (PCR) Not Detected (NotDetected) 07/26/23 15:27 Coronavirus NL63 (PCR) Not Detected (NotDetected) 07/26/23 15:27 Enterococc faecalis PCR DETECTED (NotDetected) A 07/26/23 14:52 Human Metapneumovir PCR Not Detected (NotDetected) 07/26/23 15:27 Influenza Type A (PCR) Not Detected (NotDetected) 07/26/23 15:27 Influenza Type B (PCR) Not Detected (NotDetected) 07/26/23 15:27 M. pneumoniae (PCR) Not Detected (NotDetected) 07/26/23 15:27 Parainfluenza 1 (PCR) Not Detected (NotDetected) 07/26/23 15:27 Parainfluenza 2 (PCR) Not Detected (NotDetected) 07/26/23 15:27 Parainfluenza 3 (PCR) Not Detected (NotDetected) 07/26/23 15:27 Parainfluenza 4 (PCR) Not Detected (NotDetected) 07/26/23 15:27 RSV (PCR) Not Detected (NotDetected) 07/26/23 15:27 Entero/Rhino (PCR) Not Detected (NotDetected) 07/26/23 15:27 Aaron/B-Vanco Res Genes VRE Not Detected (NotDetected) 07/26/23 14:52 Bld Cult ID Panel PCR See PCR Comment (NotDetected) 07/26/23 14:52 Impressions Chest X-Ray 07/26/23 14:54 XR chest 1V portable HISTORY: 63 years-old Male Fever COMPARISON: 03/21/2023 TECHNIQUE: Supine AP view of the chest FINDINGS: Cardiac silhouette is enlarged. No pneumothorax, pleural effusion, airspace consolidation or pulmonary edema. Degenerative changes of the shoulders and spine. Partially imaged stimulator leads overlie the mid thoracic spine with battery pack projected over the left upper quadrant abdomen. Cervical spinal fusion hardware. IMPRESSION: No acute process. ACT 112: Negative or not required by law. The above report was generated using voice recognition software. It may contain grammatical, syntax or spelling errors. Electronically signed by: Juan Cid M.D. 07/26/2023 3:[address] 07/26/23 15:00 CT head/brain wo con CLINICAL HISTORY: 63 years-old Male with AMS, fever recent fall. Acute fever with altered mental status. TECHNIQUE: Multiple axial CT images of the head were obtained without contrast. A dose lowering technique was utilized adhering to the principles of ALARA. COMPARISON: CTA neck of same day FINDINGS: No acute intracranial hemorrhage, midline shift, intracranial mass, h ydrocephalus, territorial ischemia or abnormal extra-axial collection. And involutional changes with suggestion of mild chronic microvascular ischemic disease. The calvarium is intact. The paranasal sinuses, mastoid air cells, and middle ear cavities are clear. IMPRESSION: No acute intracranial abnormality. ACT 112: Negative or not required by law. The above report was generated using voice recognition software. It may contain grammatical, syntax or spelling errors. Electronically signed by: Juan Cid M.D. 07/26/2023 4:13 PM Knee X-Ray 07/26/23 15:00 XR knee LT 1 or 2V routine HISTORY: 63 years-old Male ? septic joint chronic left knee pain COMPARISON: 06/02/2017 TECHNIQUE: 2 views of the left knee FINDINGS: Moderate-sized joint effusion. Total joint arthroplasty with patellar resurfacing. No acute fracture or dislocation. Arterial calcifications. Lucency is noted at the interface with the dorsal patella and the patellar hardware with tiny adjacent subcentimeter bone fragments. IMPRESSION: 1. No acute fracture or dislocation. 2. Total joint arthroplasty with possible loosening of the patellar hardware. 3. Moderate-sized joint effusion. ACT 112: Negative or not required by law. The above report was generated using voice recognition software. It may contain grammatical, syntax or spelling errors. Electronically signed by: Juan Cid M.D. 07/26/2023 3:21 PM Neck CTA 07/26/23 15:40 CT angio neck with con CLINICAL HISTORY: 63 years-old Male with per vascular surg, R carotid occlusion. History of right carotid occlusion COMPARISON STUDY: CT cervical spine 02/18/2013, CTA chest 03/11/2023 TECHNIQUE: Following the IV administration of 118 of Optiray, CT angiogram of the neck was performed from the aortic arch to the skull base. Images are reviewed in the axial, sagittal, and coronal planes. 3-D MIPS images are created and assessed. IV contrast was administered without complication. All measurements were calculated based on NASCET criteria. A dose lowering technique was utilized adhering to the principles of ALARA. CT DOSE: 1161.24 mGy.cm FINDINGS: Three-vessel morphology of the thoracic aortic arch. Patency of the innominate and image subclavian arteries. Common carotid arteries are patent. Severe calcified plaque of the carotid bulbs and proximal cervical segments results in 70% stenosis of the left ICA on image 236 and 80% stenosis of the right ICA on image 227. There is greater than 50% stenosis involving the cavernous, clinoid and supraclinoid segments of the internal carotid arteries. The vertebral arteries are codominant. A high-grade stenosis at the origins of the vertebral arteries appears chronic. No pneumothorax. 4 mm solid nodule in the right lung apex on image 82 previously measured 2 mm. Unremarkable soft tissues. Degenerative changes of the cervical spine with anterior fusion hardware. IMPRESSION: 1. Extensive atherosclerosis of the carotid bulbs results in high-grade narrowing of the proximal cervical segments of the internal carotid arteries. 2. High-grade stenosis at the origin of the vertebral arteries. 3. 4 mm solid nodule noted within the apical segment right upper lobe. Six-month follow-up chest CT recommended. ACT 112: Negative or not required by law. The above report was generated using voice recognition software. It may contain grammatical, syntax or spelling errors. Electronically signed by: Juan Cid M.D. 07/26/2023 4:23 PM Code Status & VTE Plan Code Status Full code VTE Prophylaxis Plan VTE Prophylaxis will be ordered: Yes PG Care Time/CCT Total # of Minutes Spent Total Time Spent with Patient: Total time spent is greater than 50% in coordination of care (as documented) at patient's floor/unit and/or counseling patient: Coding Level of Care Code 64392 INT INP/OBS CARE 375MIN Diagnoses Painful total knee replacement, left T84.84XA; Z96.652 Idiopathic polyneuropathy G60.9 Stenosis of both vertebral arteries I65.03 Peripheral vascular disease I73.9 On apixaban therapy Z79.01 Chronic anticoagulation Z79.01 Alcohol use Z78.9 Tobacco use disorder F17.200 Anxiety and depression F41.9; F32.9
[2023-07-26] MEDS ORDERED: Heparin IV Adult Wt-Based Standard *NO* INITIAL Bolus Protocol IV SCH (18:15)
[2023-07-26] MEDS: VANCOMYCIN HCL 2,250 MG in SODIUM CHLORIDE 0.9% 500 ML IV ONE (18:18)
[2023-07-26] MEDS: SODIUM CHLORIDE 0.9% 1,000 ML IV SCH (18:36)
[2023-07-26] MEDS: NSS + 20MEQ KCL 20 MEQ/1,000 ML BAG IV SCH (19:04)
[2023-07-26] MEDS: HEPARIN SODIUM/DEXTROSE 25,000 UNITS/500 ML BAG IV SCH (19:18)
[2023-07-26 19:50] LABS: INR 1.2 (0.9-1.1); Partial Thromboplastin Ratio 1.3; Partial Thromboplastin Time 36 Seconds (21-31); Prothrombin Time 12.5 Seconds (9.0-12.0)
[2023-07-26] MEDS: fentaNYL citrate PF 100 MCG/2 ML VIAL IV STA (20:11)
[2023-07-26] MEDS ORDERED: ONDANSETRON INJ 2 MG/ML 2 ML VIAL IV PRN (21:46)
[2023-07-26] MEDS ORDERED: GLUCOSE 40% GEL 15 GM TUBE PO PRN (21:46)
[2023-07-26] MEDS ORDERED: CARBOHYDRATES FOR HYPOGLYCEMIA PO PRN (21:46)
[2023-07-26] MEDS ORDERED: GLUCAGON FOR INJ 1 MG VIAL SQ PRN (21:46)
[2023-07-26] MEDS ORDERED: GLUCOSE 10 TAB/TUBE PO PRN (21:46)
[2023-07-26] MEDS ORDERED: DEXTROSE 50% 50 ML SYRINGE IV PRN (21:46)
[2023-07-26] MEDS: INSULIN ASPART PER UNIT CHARGE SC SCH (21:56)
[2023-07-26] MEDS: METOPROLOL TARTRATE 50 MG TAB PO SCH (21:56)
[2023-07-26] MEDS: GABAPENTIN 800 MG TAB PO SCH (23:05)
[2023-07-26] MEDS: TAMSULOSIN HCL 0.4 MG CAP PO SCH (23:05)
[2023-07-26] MEDS: DOXEPIN HCL 10 MG CAPSULE PO SCH (23:06)
[2023-07-26] MEDS: COLCHICINE 0.6 MG TAB PO SCH (23:06)
[2023-07-26] MEDS: traMADol HCL 50 MG TABLET PO SCH (23:21)
[2023-07-26] MEDS: CEFEPIME 2,000 MG in SYRINGE 0 ML IV SCH (23:31)
[2023-07-27] MEDS: MoRPHine SULFATE 2 MG/ML CARP IV STA (01:04)
[2023-07-27 01:56] LABS: Basophils # (auto) 0.03 K/uL (0.00-0.20); Basophils % (auto) 0.3 %; Eosinophils # (auto) 0.01 K/uL (0.00-0.50); Eosinophils % (auto) 0.1 %; Hematocrit (blood only) 22.5 % (42.0-52.0); Hemoglobin 7.1 g/dl (14.0-18.0); Immature Granulocytes # (auto) 0.13 K/uL (0.01-0.20); Immature Granulocytes % (auto) 1.4 %; Mean Corpuscular Hemoglobin 33.5 pg (25.0-34.0); Mean Corpuscular Hgb Conc 31.6 g/dL (32.0-36.0); Mean Corpuscular Volume 106.1 fL (80.0-100.0); Mean Platelet Volume 10.9 fL (9.4-12.4); Monocytes # (auto) 1.48 K/uL (0.11-0.59); Neutrophils # (auto) 6.31 K/uL (1.40-6.50); Neutrophils % (auto) 68.2 %; Nucleated RBC # (auto) 0.02 K/uL (0.00-0.12); Nucleated RBC % (auto) 0.2 %; Platelet Count 259 K/uL (130-400); RDW Coefficient of Variation 16.2 % (11.5-14.5); RDW Standard Deviation 63.1 fL (36.4-46.3); Red Blood Count 2.12 M/uL (4.70-6.10); White Blood Count 9.26 K/ul (4.8-10.8)
[2023-07-27 02:07] LABS: Albumin Globulin Ratio 1.1 (0.9-2); Albumin Level 3.2 gm/dl (3.4-5.0); Bilirubin,Total 0.3 mg/dl (0.2-1.0); Calcium 7.8 mg/dl (8.6-10.3); Creatinine Clr Calc Pharmacy 119.7 ml/min; Est GFR (African American) 109.2 ml/min; Est GFR (Non-African American) 94.2 ml/min; Globulin 2.8 gm/dl (2.5-4.0); Magnesium 1.4 mg/dl (1.7-2.4); Potassium 3.8 mmol/L (3.5-5.1)
[2023-07-27] MEDS: ACETAMINOPHEN 325 MG TAB PO PRN (02:29)
[2023-07-27 02:30] LABS: ANTI-Xa, UFH(UnfractionatedHep 1.05 IU/ml (0.3-0.7)
[2023-07-27 02:31] LABS: Polychromasia 1+
[2023-07-27 04:54] LABS: A calco-baum cmplx NotReported Not Detected (NotDetected); Bact fragilis Not Reported Not Detected (NotDetected); Blood Culture Id Panel See PCR Comment (NotDetected); C auris Not Reported Not Detected (NotDetected); Calbicans Not Reported Not Detected (NotDetected); Candida glabrata Not Reported Not Detected (NotDetected); Candida krusei Not Reported Not Detected (NotDetected); Cneoformans/gatti Not Reported Not Detected (NotDetected); Cparapsilosis Not Reported Not Detected (NotDetected); E cloacae compx Not Reported Not Detected (NotDetected); Efaecalis Not Reported DETECTED (NotDetected); Efaecium Not Reported Not Detected (NotDetected); Enterobacterales Not Reported Not Detected (NotDetected); Escherichia coli Not Reported Not Detected (NotDetected); H influenzae Not Reported Not Detected (NotDetected); K aerogenes Not Reported Not Detected (NotDetected); Koxytoca Not Reported Not Detected (NotDetected); Kpneumoniae grp Not Reported Not Detected (NotDetected); Lmonocyt Not Reported Not Detected (NotDetected); N meningitidis Not Reported Not Detected (NotDetected); P aeruginosa Not Reported Not Detected (NotDetected); Proteus spp Not Reported Not Detected (NotDetected); Salmonella spp Not Reported Not Detected (NotDetected); Smarcescens Not Reported Not Detected (NotDetected); Staph lugdunensis Not Reported Not Detected (NotDetected); Staph spp. Not Reported Not Detected (NotDetected); Staphaureus Not Reported Not Detected (NotDetected); Staphepi Not Reported Not Detected (NotDetected); Stenmaltophilia Not Reported Not Detected (NotDetected); Strep agal(GrpB) Not Reported Not Detected (NotDetected); Strep pneum Not Reported Not Detected (NotDetected); Strep pyog (GrpA) Not Reported Not Detected (NotDetected); Strep spp Not Reported Not Detected (NotDetected); VanAB Resistant Gene VRE Not Detected (NotDetected)
[2023-07-27 05:07] LABS: Enterococcus faecalis DETECTED (NotDetected)
[2023-07-27] MEDS ORDERED: SODIUM CHLORIDE 0.9% 250 ML IV PRN ×2 (05:15→18:16)
--- NOTE | 2023-07-27 05:57 | Communication Note ---
Notified of hemoglobin=7.1. Consent for transfusion obtained and 1 unit pRBC ordered. Also notified of +blood cultures, both vials growing Enterococcus faecalis, not VRE. On vancomycin/cefepime. TTE ordered. Will need f/u cultures. Date of Service: July 27, 2023
[2023-07-27] MEDS: VANCOMYCIN HCL 1,250 MG in SODIUM CHLORIDE 0.9% 250 ML IV SCH (06:26)
[2023-07-27] MEDS ORDERED: VANCOMYCIN HCL 1,750 MG in SODIUM CHLORIDE 0.9% 500 ML IV SCH (07:00)
[2023-07-27] MEDS: PNEUMOCOCCAL VACCINE (PCV20) 20-VAL CONJ-DIP CRM/PF 0.5 ML SYR IM ONE (08:07)
[2023-07-27] MEDS: MoRPHine SULFATE 2 MG/ML CARP IV PRN (08:14)
[2023-07-27] MEDS: MAGNESIUM OXIDE 400 MG TAB PO SCH (08:22)
[2023-07-27] MEDS: CYANOCOBALAMIN (B-12) 500 MCG TABLET PO SCH (08:23)
[2023-07-27] MEDS: FOLIC ACID 400 MCG TAB PO SCH (08:23)
[2023-07-27] MEDS: PANTOprazole 40 MG TAB PO SCH (08:23)
[2023-07-27] MEDS: CLOPIDOGREL BISULFATE 75 MG TAB PO SCH (08:24)
[2023-07-27] MEDS: DULoxetine HCL 60 MG CAP PO SCH (08:24)
[2023-07-27] MEDS: CHOLECALCIFEROL 125 MCG (5,000 UNITS) TAB PO SCH (08:25)
--- NOTE | 2023-07-27 08:29 | Electrocardiogram Report ---
Test Reason : Blood Pressure : / mmHG Vent. Rate : 105 BPM Atrial Rate : 000 BPM P-R Int : 000 ms QRS Dur : 086 ms QT Int : 308 ms P-R-T Axes : 000 028 -01 degrees QTc Int : 407 ms Poor data quality, interpretation may be adversely affected Atrial fibrillation with rapid ventricular response Abnormal ECG When compared with ECG of 28-MAY-2023 07:11, Atrial fibrillation has replaced Ectopic atrial rhythm Vent. rate has increased BY 37 BPM Confirmed by Chi Guido ([id number]) on 07/27/2023 8:29:02 AM Referred By: REFERRED SELF Confirmed By:Chi Guido
[2023-07-27] MEDS: MAGNESIUM SULFATE / D5W 1 GM/100 ML BAG IV SCH (08:36)
--- NOTE | 2023-07-27 09:15 | Orthopedic Progress Note ---
Date of Service July 27, 2023 Assessment & Plan (1) Painful total knee replacement, left: Plan: The knee joint fluid aspirated was not bloody. I asked the pathologist to examine for crystals today. He has a [employer] journey implant done August [address], [address] Woods. Size and implants are available. He is anemic today and will be receiving blood.. Spoke with Dr. Nikunj Roque and reviewed the situation with him. Patient will need to be medically optimized and has consultation with cardiology today. Blood cultures have grown out gram-positive cocci. Identification pending. Left knee joint likely acutely infected. Cultures will be available later today or tomorrow. He needs to be medically optimized and receive blood today. Also he will need to be off of his Eliquis for 4 doses which will be tomorrow. Kcentra not felt to be an option. His heparin drip will need to be stopped prior to surgery. He is placed on the schedule for tomorrow. Admission and Anticipated Discharge Date Admission Date: July 26, 2023 Subjective Reports continued pain in his left knee. He would like stronger pain medication. I think his medication has been limited because of blood pressure and perfusion concerns. Physical Exam Physical Exam: The knee is not red warm or swollen. It is tender mainly superior and lateral. He cannot bend the knee or lift his leg. He can flex and extend his ankle toes invert and jeff with 4+ to 5- out of 5 strength limited by pain. The leg is not swollen. Results & Data Vital Signs (Past 12 Hours) Vital Signs Temp Pulse Pulse Resp BP BP Pulse Ox 07/27/23 07:45 36.7 C 77 18 104/65 99 07/27/23 07:41 84 07/27/23 04:06 36.8 C 90 20 106/63 90 07/26/23 23:05 37.7 C H 94 H 20 135/71 90 07/26/23 22:32 07/26/23 22:20 95 H 07/26/23 21:48 37.4 C 86 18 110/66 96 07/26/23 21:45 88 O2 Del Method O2 Flow Rate 07/27/23 07:45 Nasal Cannula 4.0 07/27/23 07:41 07/27/23 04:06 Room Air 07/26/23 23:05 Room Air 07/26/23 22:32 Room Air 07/26/23 22:20 07/26/23 21:48 Room Air 07/26/23 21:45 Laboratory Results Laboratory Results WBC 9.26 K/ul (4.8-10.8) 07/27/23 01:33 RBC 2.12 M/uL (4.70-6.10) L 07/27/23 01:33 Hgb 7.1 g/dl (14.0-18.0) L 07/27/23 01:33 Hct 22.5 % (42.0-52.0) L 07/27/23 01:33 MCV 106.1 fL (80.0-100.0) H 07/27/23 01:33 MCH 33.5 pg (25.0-34.0) 07/27/23 01:33 MCHC 31.6 g/dL (32.0-36.0) L 07/27/23 01:33 RDW Std Deviation 63.1 fL (36.4-46.3) H 07/27/23 01:33 RDW Coeff of Kvng 16.2 % (11.5-14.5) H 07/27/23 01:33 Plt Count 259 K/uL (130-400) 07/27/23 01:33 MPV 10.9 fL (9.4-12.4) 07/27/23 01:33 Immature Gran % (Auto) 1.4 % 07/27/23 01:33 Neut % (Auto) 68.2 % 07/27/23 01:33 Lymph % (Auto) 14.0 % 07/27/23 01:33 Nolan % (Auto) 16.0 % 07/27/23 01:33 Eos % (Auto) 0.1 % 07/27/23 01:33 Baso % (Auto) 0.3 % 07/27/23 01:33 Neut # (Auto) 6.31 K/uL (1.40-6.50) 07/27/23 01:33 Lymph # (Auto) 1.30 K/uL (1.20-3.40) 07/27/23 01:33 Nolan # (Auto) 1.48 K/uL (0.11-0.59) H 07/27/23 01:33 Eos # (Auto) 0.01 K/uL (0.00-0.50) 07/27/23 01:33 Baso # (Auto) 0.03 K/uL (0.00-0.20) 07/27/23 01:33 Immature Gran # (Auto) 0.13 K/uL (0.01-0.20) 07/27/23 01:33 Absolute Nucleated RBC 0.02 K/uL (0.00-0.12) 07/27/23 01:33 Nucleated RBC % (auto) 0.2 % 07/27/23 01:33 Polychromasia 1+ 07/27/23 01:33 ESR 53 mm/hr (0-20) H 07/26/23 14:55 PT 12.5 Seconds (9.0-12.0) H 07/26/23 19:03 INR 1.2 (0.9-1.1) H 07/26/23 19:03 APTT 36 Seconds (21-31) H 07/26/23 19:03 PTT Ratio 1.3 07/26/23 19:03 Heparin Anti-Xa, Unfract 1.05 IU/ml (0.3-0.7) H* 07/27/23 01:33 Sodium 130 mmol/L (136-145) L 07/27/23 01:33 Potassium 3.8 mmol/L (3.5-5.1) 07/27/23 01:33 Chloride 99 mmol/L (98-107) 07/27/23 01:33 Carbon Dioxide 23 mmol/L (21-32) 07/27/23 01:33 Anion Gap 8 (3-11) 07/27/23 01:33 BUN 15 mg/dl (6-23) 07/27/23 01:33 Creatinine 0.79 mg/dl (0.6-1.4) 07/27/23 01:33 Est Cr Clr Drug Dosing 119.7 ml/min 07/27/23 01:33 Est GFR ( Amer) 109.2 ml/min 07/27/23 01:33 Est GFR (Non-Af Amer) 94.2 ml/min 07/27/23 01:33 BUN/Creatinine Ratio 19.0 (10-20) 07/27/23 01:33 Glucose 103 mg/dl (70-99(Fasting)) H 07/27/23 01:33 POC Glucose 123 mg/dl (70-99) H 07/27/23 07:43 Lactate 1.1 mmol/L (0.4-2.0) 07/26/23 15:20 Uric Acid 6.5 mg/dl (2.6-7.2) 07/27/23 06:37 Calcium 7.8 mg/dl (8.6-10.3) L 07/27/23 01:33 Magnesium 1.4 mg/dl (1.7-2.4) L 07/27/23 01:33 Total Bilirubin 0.3 mg/dl (0.2-1.0) 07/27/23 01:33 AST 12 U/L (13-39) L 07/27/23 01:33 ALT 9 U/L (7-52) 07/27/23 01:33 Alkaline Phosphatase 54 U/L (34-104) 07/27/23 01:33 Troponin I High Sens 13.1 pg/ml (0-20) 07/26/23 14:52 C-Reactive Protein 16.45 mg/dl (0-0.5) H 07/26/23 14:52 Total Protein 6.0 gm/dl (6.0-8.3) 07/27/23 01:33 Albumin 3.2 gm/dl (3.4-5.0) L 07/27/23 01:33 Globulin 2.8 gm/dl (2.5-4.0) 07/27/23 01:33 Albumin/Globulin Ratio 1.1 (0.9-2) 07/27/23 01:33 Procalcitonin 0.12 ng/ml (0-0.5) 07/26/23 14:52 Urine Color Yellow 07/26/23 14:55 Urine Appearance Clear (Clear) 07/26/23 14:55 Urine pH 5.5 (4.5-7.5) 07/26/23 14:55 Ur Specific [place] 1.020 (1.000-1.030) 07/26/23 14:55 Urine Protein 1+ (Negative) H 07/26/23 14:55 Urine Glucose (UA) Negative (Negative) 07/26/23 14:55 Urine Ketones Negative (Negative) 07/26/23 14:55 Urine Blood Negative (Negative) 07/26/23 14:55 Urine Nitrite Negative (Negative) 07/26/23 14:55 Urine Bilirubin Negative (Negative) 07/26/23 14:55 Urine Urobilinogen Negative (Negative) 07/26/23 14:55 Ur Leukocyte Esterase Negative (Negative) 07/26/23 14:55 Urine WBC (Auto) 1-5 /hpf (0-5) 07/26/23 14:55 Urine RBC (Auto) 0-4 /hpf (0-4) 07/26/23 14:55 U Hyaline Cast (Auto) 1-5 /lpf (0-5) 07/26/23 14:55 U Epithel Cells (Auto) 0-5 /lpf (0-5) 07/26/23 14:55 Urine Bacteria (Auto) Negative (Negative) 07/26/23 14:55 Fluid Comment 07/26/23 16:51 Synovial Source Left Knee 07/26/23 16:51 Synovial Color Kayli 07/26/23 16:51 Synovial Appearance Cloudy 07/26/23 16:51 Synovial WBC (Auto) 65339 /ul (0-200) H 07/26/23 16:51 Synovial RBC (Auto) 63381 /uL 07/26/23 16:51 Synovial Polynuclear % 78.3 % 07/26/23 16:51 Synovial Mononuclear % 21.7 % 07/26/23 16:51 Adenovirus (PCR) Not Detected (NotDetected) 07/26/23 15:27 Anaplasma Smear See Comment 07/26/23 14:52 B. pertussis DNA (PCR) Not Detected (NotDetected) 07/26/23 15:27 B.parapertussis DNA PCR Not Detected (NotDetected) 07/26/23 15:27 Lyme Disease Screen Negative (Negative) 07/26/23 14:52 C. pneumoniae DNA (PCR) Not Detected (NotDetected) 07/26/23 15:27 Coronavirus OC43 (PCR) Not Detected (NotDetected) 07/26/23 15:27 Coronavirus HKU1 (PCR) Not Detected (NotDetected) 07/26/23 15:27 Coronavirus 229E (PCR) Not Detected (NotDetected) 07/26/23 15:27 SARS-CoV-2 (PCR) Not Detected (NotDetected) 07/26/23 15:27 Coronavirus NL63 (PCR) Not Detected (NotDetected) 07/26/23 15:27 Enterococc faecalis PCR DETECTED (NotDetected) A 07/26/23 14:52 Human Metapneumovir PCR Not Detected (NotDetected) 07/26/23 15:27 Influenza Type A (PCR) Not Detected (NotDetected) 07/26/23 15:27 Influenza Type B (PCR) Not Detected (NotDetected) 07/26/23 15:27 M. pneumoniae (PCR) Not Detected (NotDetected) 07/26/23 15:27 Parainfluenza 1 (PCR) Not Detected (NotDetected) 07/26/23 15:27 Parainfluenza 2 (PCR) Not Detected (NotDetected) 07/26/23 15:27 Parainfluenza 3 (PCR) Not Detected (NotDetected) 07/26/23 15:27 Parainfluenza 4 (PCR) Not Detected (NotDetected) 07/26/23 15:27 RSV (PCR) Not Detected (NotDetected) 07/26/23 15:27 Entero/Rhino (PCR) Not Detected (NotDetected) 07/26/23 15:27 Aaron/B-Vanco Res Genes VRE Not Detected (NotDetected) 07/26/23 14:52 Bld Cult ID Panel PCR See PCR Comment (NotDetected) 07/26/23 14:52 Blood Type O Positive 07/27/23 06:37 Antibody Screen NEGATIVE 07/27/23 06:37 Crossmatch See Detail 07/27/23 06:37 Impressions Chest X-Ray 07/26/23 14:54 XR chest 1V portable HISTORY: 63 years-old Male Fever COMPARISON: 03/21/2023 TECHNIQUE: Supine AP view of the chest FINDINGS: Cardiac silhouette is enlarged. No pneumothorax, pleural effusion, airspace consolidation or pulmonary edema. Degenerative changes of the shoulders and spine. Partially imaged stimulator leads overlie the mid thoracic spine with battery pack projected over the left upper quadrant abdomen. Cervical spinal fusion hardware. IMPRESSION: No acute process. ACT 112: Negative or not required by law. The above report was generated using voice recognition software. It may contain grammatical, syntax or spelling errors. Electronically signed by: Juan Cid M.D. 07/26/2023 3:[address] 07/26/23 15:00 CT head/brain wo con CLINICAL HISTORY: 63 years-old Male with AMS, fever recent fall. Acute fever with altered mental status. TECHNIQUE: Multiple axial CT images of the head were obtained without contrast. A dose lowering technique was utilized adhering to the principles of ALARA. COMPARISON: CTA neck of same day FINDINGS: No acute intracranial hemorrhage, midline shift, intracranial mass, hydrocephalus, territorial ischemia or abnormal extra-axial collection. And involutional changes with suggestion of mild chronic microvascular ischemic disease. The calvarium is intact. The paranasal sinuses, mastoid air cells, and middle ear cavities are clear. IMPRESSION: No acute intracranial abnormality. ACT 112: Negative or not required by law. The above report was generated using voice recognition software. It may contain grammatical, syntax or spelling errors. Electronically signed by: Juan Cid M.D. 07/26/2023 4:13 PM Knee X-Ray 07/26/23 15:00 XR knee LT 1 or 2V routine HISTORY: 63 years-old Male ? septic joint chronic left knee pain COMPARISON: 06/02/2017 TECHNIQUE: 2 views of the left knee FINDINGS: Moderate-sized joint effusion. Total joint arthroplasty with patellar resurfacing. No acute fracture or dislocation. Arterial calcifications. Lucency is noted at the interface with the dorsal patella and the patellar hardware with tiny adjacent subcentimeter bone fragments. IMPRESSION: 1. No acute fracture or dislocation. 2. Total joint arthroplasty with possible loosening of the patellar hardware. 3. Moderate-sized joint effusion. ACT 112: Negative or not required by law. The above report was generated using voice recognition software. It may contain grammatical, syntax or spelling errors. Electronically signed by: Juan Cid M.D. 07/26/2023 3:21 PM Neck CTA 07/26/23 15:40 CT angio neck with con CLINICAL HISTORY: 63 years-old Male with per vascular surg, R carotid occlusion. History of right carotid occlusion COMPARISON STUDY: CT cervical spine 02/18/2013, CTA chest 03/11/2023 TECHNIQUE: Following the IV administration of 118 of Optiray, CT angiogram of the neck was performed from the aortic arch to the skull base. Images are reviewed in the axial, sagittal, and coronal planes. 3-D MIPS images are created and assessed. IV contrast was administered without complication. All measurements were calculated based on NASCET criteria. A dose lowering technique was utilized adhering to the principles of ALARA. CT DOSE: 1161.24 mGy.cm FINDINGS: Three-vessel morphology of the thoracic aortic arch. Patency of the innominate and image subclavian arteries. Common carotid arteries are patent. Severe calcified plaque of the carotid bulbs and proximal cervical segments results in 70% stenosis of the left ICA on image 236 and 80% stenosis of the right ICA on image 227. There is greater than 50% stenosis involving the cavernous, clinoid and supraclinoid segments of the internal carotid arteries. The vertebral arteries are codominant. A high-grade stenosis at the origins of the vertebral arteries appears chronic. No pneumothorax. 4 mm solid nodule in the right lung apex on image 82 previously measured 2 mm. Unremarkable soft tissues. Degenerative changes of the cervical spine with anterior fusion hardware. IMPRESSION: 1. Extensive atherosclerosis of the carotid bulbs results in high-grade narrowing of the proximal cervical segments of the internal carotid arteries. 2. High-grade stenosis at the origin of the vertebral arteries. 3. 4 mm solid nodule noted within the apical segment right upper lobe. Six-month follow-up chest CT recommended. ACT 112: Negative or not required by law. The above report was generated using voice recognition software. It may contain grammatical, syntax or spelling errors. Electronically signed by: Juan Cid M.D. 07/26/2023 4:23 PM
--- NOTE | 2023-07-27 09:45 | Anesthesiology Consultation ---
Date of Service July 27, 2023 Assessment & Plan Chart Review Chart Review: Acceptable Risk for Surgery and Patient NOT seen in Pre Admission Testing Consults Requested none ASA ASA4 Proposed Anesthesia Anesthesia Type: General Anesthesia Line Insertion: Arterial line History Surgery Operation Date: 07/28/23 07:30 Proposed Procedures p Total Knee Arthroplasty - Stu Eduardo MD Height/Weight Height: 5 ft 10 in Weight: 117.4 kg Allergies Allergy/AdvReac Type Severity Reaction Status Date / Time latex Allergy Unknown Rash Verified 07/18/23 11:58 Penicillins Allergy Unknown Rash Verified 07/18/23 11:58 adhesive AdvReac Unknown Rash Verified 07/18/23 11:58 dronedarone AdvReac Unknown Fatigued Verified 07/18/23 11:58 gemfibrozil AdvReac Unknown BODY ACHES Verified 07/18/23 11:58 NSAIDS (Non-Steroidal AdvReac Unknown TOLD NOT Verified 07/18/23 11:58 Anti-Inflamma TO TAKE - HX STOMACH ULCER [id number] Reductase AdvReac Unknown body aches Verified 07/18/23 11:58 Inhibitor [Cpdzzmr-Dbr-Fne Reductase Inhibitor] Medications Home Medications Medication Instructions Recorded Confirmed Last Taken acetaminophen 650 mg 650 mg PO UD PRN ARTHRITIS PAIN 12/06/20 07/26/23 05/27/23 tablet,extended release folic acid 400 mcg tablet 0.4 mg PO QAM 04/23/22 07/26/23 05/27/23 08:00 cholecalciferol (vitamin D3) 125 125 mcg PO QAM 08/14/22 07/26/23 01/22/23 06:15 mcg (5,000 unit) capsule cyanocobalamin (vitamin B-12) 1,000 mcg PO QAM 08/26/22 07/26/23 05/27/23 08:00 1,000 mcg tablet (Vitamin B-12) glimepiride 1 mg tablet 1 mg PO QAM #90 tabs 02/03/23 07/26/23 05/28/23 06:15 lisinopril 40 mg tablet 40 mg PO QAM #90 tabs 02/03/23 07/26/23 03/21/23 08:00 metoprolol tartrate 100 mg tablet 50 mg PO BID 03/25/23 07/26/23 05/28/23 06:15 tramadol 50 mg tablet 100 mg (2 x 50 mg) PO BID #120 tabs 06/09/23 07/26/23 Unknown gabapentin 400 mg capsule 800 mg (2 x 400 mg) PO TID #180 06/25/23 07/26/23 Unknown caps apixaban 5 mg tablet (Eliquis) 5 mg PO BID #180 tabs 06/30/23 07/26/23 Unknown duloxetine 60 mg capsule,delayed 60 mg PO QAM #90 caps 07/02/23 07/26/23 Unknown release (Cymbalta) metformin 500 mg tablet,extended 2,000 mg (4 x 500 mg) PO QAM #360 07/02/23 07/26/23 Unknown release 24 hr tabs pantoprazole 40 mg tablet,delayed 40 mg PO QAM #90 tabs 07/02/23 07/26/23 Unknown release evolocumab 140 mg/mL subcutaneous 140 mg subcut .every 2 weeks #6 mL 07/15/23 07/26/23 Unknown pen injector (Sally Villavicencio) clopidogrel 75 mg tablet (Plavix) 75 mg PO QAM 07/18/23 07/26/23 Unknown doxepin 10 mg capsule 10 mg PO HS 07/18/23 07/26/23 Unknown magnesium oxide 400 mg PO QAM 07/18/23 07/26/23 Unknown tamsulosin 0.4 mg capsule 0.4 mg PO HS 07/18/23 07/26/23 Unknown Active Medications Generic Name Dose Route Start Last Admin Trade Name Freq PRN Reason Stop Dose Admin Acetaminophen 650 mg 07/26/23 21:46 07/27/23 02:29 Acetaminophen 325 Mg Tab PO 08/25/23 21:45 650 mg Q4H PRN Administration Pain or Fever Clopidogrel Bisulfate 75 mg 07/27/23 09:00 07/27/23 08:24 Clopidogrel Bisulfate 75 Mg Tab PO 08/26/23 08:59 75 mg QAM LULU Administration Colchicine 0.6 mg 07/26/23 21:30 07/27/23 08:25 Colchicine 0.6 Mg Tab PO 08/25/23 21:29 0.6 mg BID LULU Administration Cyanocobalamin 1,000 mcg 07/27/23 09:00 07/27/23 08:23 Cyanocobalamin (B-12) 500 Mcg Tablet PO 08/26/23 08:59 1,000 mcg QAM LULU Administration Doxepin HCl 10 mg 07/26/23 21:46 07/26/23 23:06 Doxepin Hcl 10 Mg Capsule PO 08/25/23 21:45 10 mg HS LULU Administration Duloxetine HCl 60 mg 07/27/23 09:00 07/27/23 08:24 Duloxetine Hcl 60 Mg Cap PO 08/26/23 08:59 60 mg QAM LULU Administration Folic Acid 400 mcg 07/27/23 09:00 07/27/23 08:23 Folic Acid 400 Mcg Tab PO 08/26/23 08:59 400 mcg QAM LULU Administration Gabapentin 800 mg 07/26/23 21:46 07/27/23 08:22 Gabapentin 800 Mg Tab PO 08/25/23 21:45 800 mg TID LULU Administration Potassium Chloride/Sodium Chloride 20 meq in 1,000 mls @ 100 mls/hr 07/26/23 18:00 07/27/23 06:09 Normal Saline W/20 Meq Kcl IV 08/25/23 17:59 100 mls/hr .Q10H LULU Administration Protocol Heparin Sodium/Dextrose 25,000 units in 500 mls @ 22 mls/hr 07/26/23 18:30 07/27/23 07:26 Heparin Sodium/Dextrose IV 08/25/23 18:29 1,100 units/hr .[id number] LULU 22 mls/hr Titration Protocol 1,100 UNITS/HR Cefepime HCl 2,000 mg/ Syringe 20 mls @ 5 mls/min 07/27/23 00:00 07/27/23 08:17 IV 09/07/23 00:00 5 mls/min Q8H LULU Administration Protocol Vancomycin HCl 1,250 mg/ 275 mls @ 200 mls/hr 07/27/23 06:00 07/27/23 07:58 Sodium Chloride IV 09/07/23 05:59 Infused Q12H LULU Infusion Magnesium Sulfate/Dextrose 1 gm in 100 mls @ 50 mls/hr 07/27/23 08:00 07/27/23 08:36 Magnesium Sulfate / D5w IV 07/27/23 11:59 50 mls/hr Q2H LULU Administration Insulin Aspart 0 units 07/26/23 21:46 07/27/23 08:35 Insulin Aspart Per Unit Charge SC 08/25/23 21:45 Not Given ACHS LULU Magnesium Oxide 400 mg 07/27/23 09:00 07/27/23 08:22 Magnesium Oxide 400 Mg Tab PO 08/26/23 08:59 400 mg QAM LULU Administration Metoprolol Tartrate 50 mg 07/26/23 21:46 07/27/23 08:24 Metoprolol Tartrate 50 Mg Tab PO 08/25/23 21:45 50 mg BID LULU Administration Morphine Sulfate 2 mg 07/27/23 07:59 07/27/23 08:14 Morphine Sulfate 2 Mg/Ml Carp IV 08/10/23 07:58 2 mg Q3H PRN Administration Pain Pantoprazole Sodium 40 mg 07/27/23 09:00 07/27/23 08:23 Pantoprazole 40 Mg Tab PO 08/26/23 08:59 40 mg QAM LULU Administration Tamsulosin HCl 0.4 mg 07/26/23 21:46 07/26/23 23:05 Tamsulosin Hcl 0.4 Mg Cap PO 08/25/23 21:45 0.4 mg HS LULU Administration Tramadol HCl 100 mg 07/26/23 21:46 07/27/23 08:23 Tramadol Hcl 50 Mg Tablet PO 08/25/23 21:45 100 mg BID LULU Administration Vitamin D 125 mcg 07/27/23 09:00 07/27/23 08:25 Cholecalciferol 125 Mcg (5,000 Units) Tab PO 08/26/23 08:59 125 mcg QAM LULU Administration Past Medical History Medical History Nocturia Presence of neurostimulator Hx of [place] [facility] [place] of cardioversion 01/2021, [facility]; F/U DR. [place]CIM[place]O [place] Hx of transesophageal echocardiography (GLADYS) for monitoring 01/2021, [facility] Chronic anemia Neuropathy Peripheral arterial disease Severe occlusive disease S/p L common femoral endarterectomy with bovine patch and lithotripsy of SFA and Popliteal arteries , status post bilateral common iliac artery [employer] and stents. History of chronic back pain Neurogenic claudication due to lumbar stenosis History of COVID-19 03/18/2022>resolved 06/28/23 + home test - congestion. Tx with pill. Resolved. No current s/s. History of anxiety Paroxysmal atrial flutter 01/2021- s/p cardoversion- with excessive alcohol intake- felt to be contributing component. No AC. No recurrence per PCP records 07/29/22- - Recurrence in preop area prior to surgery - sent from ACU to ED- admitted to [facility] 07/29/22-07/30/22 Alcohol abuse Pt admits to >4 beers daily Bilateral carotid artery stenosis Per 11/2021 Carotid Doppler: 50-69% stenosis of right ICA, less than 50% stenosis of left ICA, greater than 50% stenosis of right ECA Antegrade flow in both vertebral arteries CAD in galena artery s/p LAD stent x2 () History of gastric ulcer No recent issues Degenerative disc disease GERD (gastroesophageal reflux disease) Well controlled and stable Diabetes mellitus, type 2 NIDDM Hypertension Hyperlipidemia Sleep apnea "Mild to moderate"-cpap has not been using for sometimes/recently been trying to get back to using. Has trouble tolerating mask. Myocardial infarction Anterolateral [place]- 2008, [place], had cardiac cath; f/u [facility] Exercise / Class Metabolic Activity III < 4 Walking/Shop/Light housework Past Family History Family History Mother Family history of diabetes mellitus Father Family history of diabetes mellitus Other No family history of adverse response to anesthesia Denies family history of Ovarian cancer Prostate cancer Myocardial infarction Breast cancer Colorectal cancer Past Surgical History Surgical History Presence of neurostimulator 2022 History of cardiac radiofrequency [place] [facility] [place] S/P insertion of iliac artery stent Dec 2022? about 6 mon ago/ Dr. Garcia/2 stents. History of endarterectomy Left Femoral Endarterectomy with Bovine Patch 05/08/2022 & right side done 05/28/2023 Hx of cataract extraction rt/lt. History of anesthesia reaction WITH BACK SURGERY 2004 - DISORIENTED, PULLED CATHETER OUT ([facility]) Fusion of spine CERVICAL, "HAVE 80% OF MOTION" History of lumbar surgery X 3 - 2004, 2006, 2019 History of total knee replacement RT/LEFT (LEFT REVISION) Hx of transurethral resection of prostate History of esophagogastroduodenoscopy (EGD) History of colonoscopy History of nasal septoplasty History of heart artery stent 2006 or 2007, x2 stent, [place]; f/u [facility] Past Anesthesia History No Hx of Anesthesia Complications and No Family Hx of Anesthesia Complications History of PONV No Hx of PONV and No Hx of Motion Sickness Social History Smoking Status: Current every day smoker tobacco type: cigarettes Smoking cigarettes per day: 10 cigs per day/advised npo Do You Dip or Chew Tobacco: No Hx Alcohol Use: Yes Alcohol type: beer alcohol intake frequency: 3 or more drinks per day Hx Substance Use: No substance use type: does not use Physical Exam Vital Signs Last Vital Signs Temp 36.7 C 07/27/23 07:45 Pulse 77 07/27/23 07:45 Resp 18 07/27/23 07:45 BP 104/65 07/27/23 07:45 Pulse Ox 99 07/27/23 07:45 O2 Del Method Nasal Cannula 07/27/23 07:45 O2 Flow Rate 4.0 07/27/23 07:45 Testing Laboratory Results 07/27/23 01:33 07/27/23 01:33 PT 12.5 Seconds (9.0-12.0) H 07/26/23 19:03 INR 1.2 (0.9-1.1) H 07/26/23 19:03 APTT 36 Seconds (21-31) H 07/26/23 19:03 Urine Color Yellow 07/26/23 14:55 Urine Appearance Clear (Clear) 07/26/23 14:55 Urine pH 5.5 (4.5-7.5) 07/26/23 14:55 Ur Specific [place] 1.020 (1.000-1.030) 07/26/23 14:55 Urine Protein 1+ (Negative) H 07/26/23 14:55 Urine Glucose (UA) Negative (Negative) 07/26/23 14:55 Urine Ketones Negative (Negative) 07/26/23 14:55 Urine Nitrite Negative (Negative) 07/26/23 14:55 Ur Leukocyte Esterase Negative (Negative) 07/26/23 14:55 Urine WBC (Auto) 1-5 /hpf (0-5) 07/26/23 14:55 Urine RBC (Auto) 0-4 /hpf (0-4) 07/26/23 14:55 U Hyaline Cast (Auto) 1-5 /lpf (0-5) 07/26/23 14:55 U Epithel Cells (Auto) 0-5 /lpf (0-5) 07/26/23 14:55 Urine Bacteria (Auto) Negative (Negative) 07/26/23 14:55 Blood Type O Positive 07/27/23 06:37 Antibody Screen NEGATIVE 07/27/23 06:37 07/26/23 16:51 Gram Stain - Final Knee,Left 07/26/23 15:20 Aerobic Blood Culture - Preliminary Blood Gram positive cocci in chains Anaerobic Blood Culture - Preliminary Gram positive cocci in chains 07/26/23 14:52 Aerobic Blood Culture - Preliminary Blood Gram positive cocci in chains Anaerobic Blood Culture - Preliminary Gram positive cocci in chains 07/27/23 07/26/23 07:43 21:49 POC Glucose 123 H 104 H Electrocardiogram Date: 07/26/23 Findings: + AFIB @ (A Fib @ 105/RVR) Chest X-Ray Date: 07/26/23 Findings: + NAD, + cardiomegaly and + other (C Spine fusion hardware; Thoracic spine stimulator leads) Echocardiogram Date: 02/28/23 EF: grossly nl 50% LV Function: normal RWMA: + none Other Findings: + LVH (moderate) Valvular Disease: + no significant valvular disease
--- NOTE | 2023-07-27 09:53 | Communication Note ---
Date of Service: July 27, 2023 I have discussed Patient w/ Dr Eduardo. Pt requires PRBC transfusin. Pt 's A Fib w/ RVR requires rate control.PPt w/ hyponatremia needs to be addressed. In summary,pt. needs optimization to the extent possible. Hopefully, will be ready for the OR tomorrow.
[2023-07-27 10:53] LABS: Basophils # (auto) 0.03 K/uL (0.00-0.20); Basophils % (auto) 0.3 %; Eosinophils # (auto) 0.02 K/uL (0.00-0.50); Eosinophils % (auto) 0.2 %; Hemoglobin 7.1 g/dl (14.0-18.0); Immature Granulocytes % (auto) 1.1 %; Lymphocytes # (auto) 1.21 K/uL (1.20-3.40); Lymphocytes % (auto) 13.5 %; Mean Corpuscular Hemoglobin 32.9 pg (25.0-34.0); Mean Corpuscular Hgb Conc 30.9 g/dL (32.0-36.0); Mean Corpuscular Volume 106.5 fL (80.0-100.0); Mean Platelet Volume 10.9 fL (9.4-12.4); Monocytes # (auto) 1.24 K/uL (0.11-0.59); Monocytes % (auto) 13.8 %; Neutrophils # (auto) 6.38 K/uL (1.40-6.50); Neutrophils % (auto) 71.1 %; Platelet Count 260 K/uL (130-400); RDW Coefficient of Variation 16.2 % (11.5-14.5); Red Blood Count 2.16 M/uL (4.70-6.10); White Blood Count 8.98 K/ul (4.8-10.8)
[2023-07-27 11:17] LABS: Anisocytosis Present; Polychromasia 1+
[2023-07-27] MEDS: HYDROmorphone INJ 0.5 MG/0.5 ML SYR IV STA (11:18)
--- NOTE | 2023-07-27 11:29 | Cardiology Consultation ---
Date of Consultation July 27, 2023 Assessment & Plan (1) Atrial fibrillation with rapid ventricular response: (2) Hx of atrial flutter: (3) Peripheral vascular disease: (4) CAD (coronary artery disease): (5) Painful total knee replacement, left: Plan 63-year-old male with complex cardiac history admitted with septic left knee for which operative intervention is planned. Initial rhythm atrial fibrillation with mildly elevated ventricular rate, currently sinus. Continue his usual dose of metoprolol tartrate 50 mg twice daily, if recurrent atrial fibrillation additional doses of oral and/or IV metoprolol tartrate can be administered to achieve ventricular rate less than 100 bpm. Chronically anticoagulated with apixaban, held for anticipated orthopedic surgery (last dose 07/26/2023). Although heparin bridging is not generally recommended, in his case with recent peripheral arterial disease intervention reasonable to continue heparin until 6 to 12 hours prior to planned surgery. Would not resume heparin or apixaban for at least 24 hours after surgery to ensure lower risk of postoperative bleeding. Since he has normal renal function, apixaban should be cleared later today and certainly by tomorrow morning, could proceed with orthopedic surgery at that time. Known coronary artery disease with remote stenting, no evidence of ongoing myocardial ischemia. Not on aspirin, if able continue clopidogrel for CAD and PAD, but given his significant anemia of these could be interrupted if bleeding becomes an issue. Ensure adequate analgesia to diminish adrenergic milieu, may have some degree of narcotic tolerance due to chronic tramadol use. Will continue to follow along from a cardiac standpoint. History of Present Illness Reason for Consultation: CAD/stents, PAD, CVD, septic knee Requesting Physician: Travis Fermin MD Attending Physician: Travis Fermin MD History of Present Illness 63-year-old man with complex cardiac history admitted 07/26/2023 with apparent septic left knee for which she is to undergo operative intervention in the next day or so. Cardiovascular history includes: Peripheral arterial disease with most recent intervention May 2023 endarterectomy right common femoral artery by Dr. Garcia Atrial flutter with ablation March 2023 Dyslipidemia, statin intolerant, on PCSK9 inhibitor Carotid disease, 50 to 69% left ICA 2021 CAD, anterolateral OR 2007, occluded LAD which was stented, nonocclusive disease elsewhere Hypertension Other significant medical issues include: immoderate alcohol use Ongoing tobacco use Obstructive sleep apnea, does not use recommended CPAP He denies any recent chest pain, dyspnea on exertion, palpitations, presyncope or syncope. No orthopnea, PND, or significant leg edema. He complained of left leg pain and requested an increase in his analgesics, no other somatic complaints at the time of my evaluation this morning. Rhythm was initially atrial fibrillation, overnight rhythm was sinus with PACs. Allergies Allergy/AdvReac Type Severity Reaction Status Date / Time latex Allergy Unknown Rash Verified 07/18/23 11:58 Penicillins Allergy Unknown Rash Verified 07/18/23 11:58 adhesive AdvReac Unknown Rash Verified 07/18/23 11:58 dronedarone AdvReac Unknown Fatigued Verified 07/18/23 11:58 gemfibrozil AdvReac Unknown BODY ACHES Verified 07/18/23 11:58 NSAIDS (Non-Steroidal AdvReac Unknown TOLD NOT Verified 07/18/23 11:58 Anti-Inflamma TO TAKE - HX STOMACH ULCER Euerzrk-VJA-AoW Reductase AdvReac Unknown body aches Verified 07/18/23 11:58 Inhibitor [Hkjllxb-Trv-Gjp Reductase Inhibitor] Home Medications Medication Instructions Recorded Confirmed Type acetaminophen 650 mg 650 mg PO UD PRN ARTHRITIS PAIN 12/06/20 07/26/23 History tablet,extended release folic acid 400 mcg tablet 0.4 mg PO QAM 04/23/22 07/26/23 History cholecalciferol (vitamin D3) 125 125 mcg PO QAM 08/14/22 07/26/23 History mcg (5,000 unit) capsule cyanocobalamin (vitamin B-12) 1,000 mcg PO QAM 08/26/22 07/26/23 History 1,000 mcg tablet (Vitamin B-12) glimepiride 1 mg tablet 1 mg PO QAM #90 tabs 02/03/23 07/26/23 Rx lisinopril 40 mg tablet 40 mg PO QAM #90 tabs 02/03/23 07/26/23 Rx metoprolol tartrate 100 mg tablet 50 mg PO BID 03/25/23 07/26/23 History tramadol 50 mg tablet 100 mg (2 x 50 mg) PO BID #120 tabs 06/09/23 07/26/23 Rx gabapentin 400 mg capsule 800 mg (2 x 400 mg) PO TID #180 06/25/23 07/26/23 Rx caps apixaban 5 mg tablet (Eliquis) 5 mg PO BID #180 tabs 06/30/23 07/26/23 Rx duloxetine 60 mg capsule,delayed 60 mg PO QAM #90 caps 07/02/23 07/26/23 Rx release (Cymbalta) metformin 500 mg tablet,extended 2,000 mg (4 x 500 mg) PO QAM #360 07/02/23 07/26/23 Rx release 24 hr tabs pantoprazole 40 mg tablet,delayed 40 mg PO QAM #90 tabs 07/02/23 07/26/23 Rx release evolocumab 140 mg/mL subcutaneous 140 mg subcut .every 2 weeks #6 mL 07/15/23 07/26/23 Rx pen injector (Sally Villavicencio) clopidogrel 75 mg tablet (Plavix) 75 mg PO QAM 07/18/23 07/26/23 History doxepin 10 mg capsule 10 mg PO HS 07/18/23 07/26/23 History magnesium oxide 400 mg PO QAM 07/18/23 07/26/23 History tamsulosin 0.4 mg capsule 0.4 mg PO HS 07/18/23 07/26/23 History Patient History Medical History (Updated 07/27/23 @ 12:04 by Chi Guido MD) Nocturia Presence of neurostimulator Hx of atrial flutter [place] [facility] [place] History of cardioversion 01/2021, [facility]; F/U DR. [place]CIMENTO, [place] Hx of transesophageal echocardiography (GLADYS) for monitoring 01/2021, [facility] Chronic anemia Neuropathy Peripheral arterial disease Severe occlusive disease S/p L common femoral endarterectomy with bovine patch and lithotripsy of SFA and Popliteal arteries , status post bilateral common iliac artery NECK PINNER and stents. History of chronic back pain Neurogenic claudication due to lumbar stenosis History of COVID-19 03/18/2022>resolved 06/28/23 + home test - congestion. Tx with pill. Resolved. No current s/s. History of anxiety Paroxysmal atrial flutter 01/2021- s/p cardoversion- with excessive alcohol intake- felt to be contributing component. No AC. No recurrence per PCP records 07/29/22- - Recurrence in preop area prior to surgery - sent from ACU to ED- admitted to [facility] 07/29/22-07/30/22 Alcohol abuse Pt admits to >4 beers daily Bilateral carotid artery stenosis Per 11/2021 Carotid Doppler: 50-69% stenosis of right ICA, less than 50% stenosis of left ICA, greater than 50% stenosis of right ECA Antegrade flow in both vertebral arteries CAD in [place] artery s/p LAD stent x2 () History of gastric ulcer No recent issues Degenerative disc disease GERD (gastroesophageal reflux disease) Well controlled and stable Diabetes mellitus, type 2 NIDDM Hypertension Hyperlipidemia Sleep apnea "Mild to moderate"-cpap has not been using for sometimes/recently been trying to get back to using. Has trouble tolerating mask. Myocardial infarction Anterolateral OR- 2008, [place], had cardiac cath; f/u [facility] Surgical History Presence of neurostimulator 2022 History of cardiac radiofrequency [place] [facility] [place] S/P insertion of iliac artery stent Dec 2022? about 6 mon ago/ Dr. Garcia/2 stents. History of endarterectomy Left Femoral Endarterectomy with Bovine Patch 05/08/2022 & right side done 05/28/2023 Hx of cataract extraction rt/lt. History of anesthesia reaction WITH BACK SURGERY 2004 - DISORIENTED, PULLED CATHETER OUT ([facility]) Fusion of spine CERVICAL, "HAVE 80% OF MOTION" History of lumbar surgery X 3 - 2004, 2006, 2019 History of total knee replacement RT/LEFT (LEFT REVISION) Hx of transurethral resection of prostate History of esophagogastroduodenoscopy (EGD) History of colonoscopy History of nasal septoplasty History of heart artery stent 2006 or 2007, x2 stent, [place]; f/u [facility] Family History Mother Family history of diabetes mellitus Father Family history of diabetes mellitus Other No family history of adverse response to anesthesia Denies family history of Ovarian cancer Prostate cancer Myocardial infarction Breast cancer Colorectal cancer Social History Smoking Status: Current every day smoker Tobacco Type: Cigarettes Age Started Using Tobacco: 18; Cigarettes Per Day: 10 cigs per day/advised npo; Second Hand Exposure: No; Do You Dip or Chew Tobacco: No; Tobacco Cessation Education Requested by Patient: No Hx Alcohol Use: Yes Alcohol type: beer Alcohol type Comment: 6-8 beers Hx Substance Use: No Preferred Language: Citizen Of [place] Communication Ability: Effective Visual Impairment: No Limitations Ethnology Teacher Required: No Beliefs That Will Affect Care: None marital status: Current Living Situation: Spouse Current Living Situation Comment: Lives at home with How many Children do You have: 4 Other Information That Helps Us Care for You: No Feels Safe at Home: Yes Safety Concerns: Feels Safe At This Time Childhood Exposure to Second-Hand Smoke: Yes Dental Care, Regularly: Yes Physical Activity Frequency: Does not Exercise Seatbelt Use: always Sunscreen Use: No Assistive Devices: CPAP, Glasses and Walker Physical Exam Physical Exam: Appears mildly uncomfortable but not acutely distressed. Afebrile. BP normotensive. Pulse 75 bpm and regular. Respirations 19 and unlabored. Skin: Few scattered ecchymoses, no generalized lesions. HEENT: unremarkable. Neck: JVP at the clavicle at 90 degrees, no carotid bruits. Lungs: clear. Cardiac: regular rhythm, normal S1-2, no murmur. Abdomen: benign. Extremities: Left knee swollen, mild pretibial edema, peripheral pulses intact. Neurologic: normal affect and conversation, nonfocal. Results & Data Vital Signs (Past 12 Hours) Vital Signs Temp Pulse Pulse Resp BP BP Pulse Ox 07/27/23 11:13 98.4 F 75 19 104/68 90 07/27/23 07:45 98.1 F 77 18 104/65 99 07/27/23 07:41 84 07/27/23 04:06 98.2 F 90 20 106/63 90 O2 Del Method O2 Flow Rate 07/27/23 11:13 Room Air 07/27/23 07:45 Nasal Cannula 4.0 07/27/23 07:41 07/27/23 04:06 Room Air Laboratory Results Troponin 13.1. Sodium 130, potassium 3.8, BUN 15, creatinine 0.79. Hemoglobin 7.1 with normal white count and platelet count. Diagnostic Findings ECG on admission showed atrial fibrillation with ventricular rate 105 bpm, otherwise unremarkable. Compared with 05/28/2023 study, A-fib has replaced ectopic atrial rhythm and ventricular rate had increased by 37 bpm. Chest x-ray with no acute process. PG Care Time/CCT Total # of Minutes Spent Total Time Spent with Patient: Total time spent is greater than 50% in coordination of care (as documented) at patient's floor/unit and/or counseling patient: Coding Level of Care Code 23479 IN/OBS CONSULT LVL 5,80M Diagnoses Atrial fibrillation with rapid ventricular response I48.91 Hx of atrial flutter Z86.79 Peripheral vascular disease I73.9 CAD (coronary artery disease) I25.10 Painful total knee replacement, left T84.84XA; Z96.652
--- NOTE | 2023-07-27 11:33 | Pharmacy Report ---
Pharmacy PK ABX Note - Date of Service July 27, 2023 - Assessment and Plan Assessment 63 year old M receiving vanc/cefepime for treatment of septic L knee. Pertinent microbiologic data includes: Blood culture 4/4 gram positive cocci in chains, E. faecalis on BCID2, knee culture pending. Continuing vanc/cefepime for now- possible de-escalation pending knee culture. Plan Vancomycin * Loading dose: 2250mg IV x 1 * Maintenance dose: 1500 mg IV every 12 hours * Regimen is predicted to achieve target AUC/KEISHA of 400-600 mg/L.hr * Early level to help assess dosing with AM labs tomorrow Pharmacy will continue to follow and will adjust dose/frequency as necessary. Thank you. Pharmacy has transitioned to AUC monitoring for vancomycin. AUC/KEISHA is the preferred PK/PD target and is associated with decreased risk of nephrotoxicity compared to traditional trough targets.
[2023-07-27] MEDS ORDERED: VANCOMYCIN HCL 1,500 MG in SODIUM CHLORIDE 0.9% 500 ML IV SCH (12:00)
--- NOTE | 2023-07-27 12:05 | Hospitalist Progress Note ---
Date of Service July 27, 2023 Assessment & Plan (1) Bacteremia: Plan: 08/27 blood cx's + for GPC cocci --> biofire is positive for enterococcus. remains on cefepime/vanco but can likely d/c cefepime if no gram negatives are isolated (unlikely to grow such). source - no evidence of pneumonia; no evidence of UTI. I believe the suspected septic L knee is secondary, not the primary, cause of his bacteremia. I am concerned that his vascular surgery in May 2023 -- Right Common Femoral Artery Endarterectomy with Bovine Patch Angioplasty -- could have been the source (ie - skin entry)? mentions there was an irritated staple near the groin line post-op?? We have consulted Dr Garcia for his opinion. He does have hardware in his c-spine. He does have a neurostimulator device in his back as well. Plan to repeat blood cultures tomorrow. To OR tomorrow for washout / I and D procedure of L TKR. Will need ID consultation. Hopefully the enterococcus is amp sensitive. (2) Sepsis due to Enterococcus: Plan: as above he will need echo to r/o SBE (3) Chronic anemia: Plan: baseline Hb about 8-10 Hb today 7.1 Tx 1 unit; post-transfusion Hb still <8. Tx a 2nd unit. recheck CBC in am. Fe studies in 05/2023 c/w Fe deficiency (despite the macrocytosis, which is likely from chronic etoh abuse). B12/folate levels in the recent past wnl. TSH wnl. (4) Painful total knee replacement, left: Plan: s/p arthrocentesis yesterday with large # of WBCs, cloudy fluid, and culture with "pinpoint" growth. in light of enterococcus in the blood this is worrisome for septic TKR. appreciate Dr Eduardo's consultation. to OR tomorrow for I/D, etc. NPO after MN tonight. cont IV abx. cont IV dilaudid prn. cont chronic tramadol BID. 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 (angioplasty with bovine patch) by Dr Garcia cont plavix he is statin intolerant by history (7) Chronic anticoagulation: Plan: eliquis - on hold for upcoming left knee surgery on heparin bridge will need to turn off such pre-op at least 4 hours prior (8) Alcohol use: Plan: 5 beers/day confirms this amount place on AWSS protocol he is already on gabapentin at high doses monitor for withdrawal (9) Tobacco use disorder: 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 (14) Diabetes mellitus, type 2: Plan: a1c 6.7% in fall 2022 recheck a1c am hold PO meds novolog SSI (15) Sleep apnea: Plan: noncompliant with CPAP device but started reusing it 2 weeks ago at home to bring home unit in (16) Hypomagnesemia: Plan: 2nd to etoh abuse 2 grams mag sulfate ordered recheck level after replacement (17) Hyponatremia: Plan: somewhat chronic (but intermittent) based on previous labs he looks volume depleted today provide isotonic fluids serial labs (18) Chronic prescription opiate use: Plan: tramadol 100mg BID - for back pain cont such dilaudid prn for L knee pain (19) DVT prophylaxis: Plan: heparin drip hold tomorrow am pending OR for the left knee (20) Foot trauma: Plan: left foot check x-rays - r/o toe fracture Plan extensively updated by phone this evening questions answered care plan reviewed had [place] correspondence with orthopedics today very complex care coordination total care time about 90 minutes between chart review, speaking with , blood consent process, and overall care coordination Admission and Anticipated Discharge Date Admission Date: July 26, 2023 Subjective patient reports severe L knee pain morphine was not helpful this am; thus gave IV dilaudid and this did help the pain he also reports minor L foot pain - he banged it on a piece of furniture on Friday denies pain in the right leg he does state he drinks about 5 beers daily and has never gone through etoh withdrawal he smokes about 10 cigarettes each day as well and is receptive to using a nicoderm patch denies any issues with the right groin at the site of his prior vascular procedure with Dr Garcia in 05/2023 we had lengthy discussion about his anemia and reviewed the blood consent process he ultimately gave written consent for transfusion had not been using his CPAP for about a year, then resumed using it 2 weeks ago to bring home unit in later today since admission tele has been wnl Review of Systems Review of Systems: gen - fevers & chills at home but none since arrival here, poor appetite cv - no cp, no orthopnea pulm - no dyspnea GI - no abd pain Physical Exam Physical Exam: gen - obese, NAD (had received IV dilaudid recently) mouth - MM mildly dry neck - no JVD heart - RRR, s1 s2 lungs - mild end-exp wheezes b/l, no increased work of breathing, no rales abd - soft NT ND BS+ skin - right groin - previous vascular surgery site well-healed, no hematoma, no purulent drainage or erythema ext - no edema, pulses 2+ b/l musculo - left TKR vertical scar present; exquisite tenderness to palpation of the joint; effusion present; warm to touch; I did not place the joint through passive ROM; left foot- multiple toes with ecchymoses neuro - no tremors or signs of etoh withdrawal Results & Data Results & Data Vital Signs (Past 12 Hours) Vital Signs Temp Pulse Pulse Resp BP BP Pulse Ox 07/27/23 11:13 36.9 C 75 19 104/68 90 07/27/23 07:45 36.7 C 77 18 104/65 99 07/27/23 07:41 84 07/27/23 04:06 36.8 C 90 20 106/63 90 O2 Del Method O2 Flow Rate 07/27/23 11:13 Room Air 07/27/23 07:45 Nasal Cannula 4.0 07/27/23 07:41 07/27/23 04:06 Room Air Laboratory Results Laboratory Results - last 24 hr 07/26/23 07/27/23 07/27/23 16:51 06:37 07:43 WBC RBC Hgb Hct MCV MCH MCHC RDW Std Deviation RDW Coeff of Kvng Plt Count MPV Immature Gran % (Auto) Neut % (Auto) Lymph % (Auto) [place] % (Auto) Eos % (Auto) Baso % (Auto) Neut # (Auto) Lymph # (Auto) [place] # (Auto) Eos # (Auto) Baso # (Auto) Immature Gran # (Auto) Polychromasia Anisocytosis Heparin Anti-Xa, Unfract Sodium Potassium Chloride Carbon Dioxide Anion Gap BUN Creatinine Est Cr Clr Drug Dosing Est GFR ( Amer) Est GFR (Non-Af Amer) BUN/Creatinine Ratio Glucose POC Glucose 123 H Uric Acid 6.5 Calcium Magnesium Total Bilirubin AST ALT Alkaline Phosphatase Total Protein Albumin Globulin Albumin/Globulin Ratio Synovial Crystals Random Vancomycin Blood Type O Positive Antibody Screen NEGATIVE Crossmatch See Detail 07/27/23 07/27/23 07/27/23 10:17 12:37 16:21 WBC 8.98 RBC 2.16 L Hgb 7.1 L Hct 23.0 L MCV 106.5 H MCH 32.9 MCHC 30.9 L RDW Std Deviation 63.0 H RDW Coeff of Kvng 16.2 H Plt Count 260 MPV 10.9 Immature Gran % (Auto) 1.1 Neut % (Auto) 71.1 Lymph % (Auto) 13.5 [place] % (Auto) 13.8 Eos % (Auto) 0.2 Baso % (Auto) 0.3 Neut # (Auto) 6.38 Lymph # (Auto) 1.21 [place] # (Auto) 1.24 H Eos # (Auto) 0.02 Baso # (Auto) 0.03 Immature Gran # (Auto) 0.10 Polychromasia 1+ Anisocytosis Present Heparin Anti-Xa, Unfract 0.70 Sodium Potassium Chloride Carbon Dioxide Anion Gap BUN Creatinine Est Cr Clr Drug Dosing Est GFR ( Amer) Est GFR (Non-Af Amer) BUN/Creatinine Ratio Glucose POC Glucose 137 H 110 H Uric Acid Calcium Magnesium Total Bilirubin AST ALT Alkaline Phosphatase Total Protein Albumin Globulin Albumin/Globulin Ratio Synovial Crystals Random Vancomycin Blood Type Antibody Screen Crossmatch 07/27/23 17:30 WBC RBC Hgb 7.5 L Hct 23.8 L MCV MCH MCHC RDW Std Deviation RDW Coeff of Kvng Plt Count MPV Immature Gran % (Auto) Neut % (Auto) Lymph % (Auto) [place] % (Auto) Eos % (Auto) Baso % (Auto) Neut # (Auto) Lymph # (Auto) [place] # (Auto) Eos # (Auto) Baso # (Auto) Immature Gran # (Auto) Polychromasia Anisocytosis Heparin Anti-Xa, Unfract Sodium 130 L Potassium 4.3 Chloride 102 Carbon Dioxide 23 Anion Gap 5 BUN 11 Creatinine 0.80 Est Cr Clr Drug Dosing 118.2 Est GFR ( Amer) 108.7 Est GFR (Non-Af Amer) 93.7 BUN/Creatinine Ratio 13.8 Glucose 130 H POC Glucose Uric Acid Calcium 7.8 L Magnesium 1.8 Total Bilirubin AST ALT Alkaline Phosphatase Total Protein Albumin Globulin Albumin/Globulin Ratio Synovial Crystals Random Vancomycin Blood Type Antibody Screen Crossmatch PG Care Time/CCT Total # of Minutes Spent Total Time Spent with Patient: Total time spent is greater than 50% in coordination of care (as documented) at patient's floor/unit and/or counseling patient: Prolonged Care Time Prolonged Care Time: Yes Total Prolonged Care Time: 90 Coding Level of Care Code 13300 SUB INP/OBS CARE 3/50MIN (25 - SIGNIFICANT, SEPARATELY IDENTIFIABLE ) Diagnoses Bacteremia R78.81 Sepsis due to Enterococcus A41.81 Chronic anemia D64.9 Painful total knee replacement, left T84.84XA; Z96.652 Idiopathic polyneuropathy G60.9 Peripheral vascular disease I73.9 Chronic anticoagulation Z79.01 Alcohol use Z78.9 Tobacco use disorder F17.200 Anxiety and depression F41.9; F32.9 CAD (coronary artery disease) I25.10 Hx of atrial flutter Z86.79 Presence of neurostimulator Z96.82 Diabetes mellitus, type 2 E11.9 Sleep apnea G47.30 Hypomagnesemia E83.42 Hyponatremia E87.1 Chronic prescription opiate use Z79.891 DVT prophylaxis Z29.9 Foot trauma S99.929A Additional Codes Prolonged Care Time - Prolonged Care Time: Yes ([id number])
--- NOTE | 2023-07-27 12:59 | XCELERA ---
[id number] \\[id number]
--- NOTE | 2023-07-27 13:14 | XRay Report ---
XR foot LT min 3V routine HISTORY: 63 years-old Male trauma, bruising multiple toes; r/o Fx acute left foot pain COMPARISON: 01/07/2023 TECHNIQUE: 3 views of the left foot FINDINGS: Minimal multifocal osteoarthritis. No acute fracture, dislocation, osseous erosion or opaque foreign body. Limited positioning on the lateral view. Calcaneal enthesophytes. IMPRESSION: No acute fracture or dislocation. ACT 112: Negative or not required by law. The above report was generated using voice recognition software. It may contain grammatical, syntax o r spelling errors. Electronically signed by: Juan Cid M.D. 07/27/2023 1:13 PM
[2023-07-27] MEDS: NICOTINE 14 MG/24 HR PATCH TD SCH (15:08)
[2023-07-27] MEDS: HYDROmorphone INJ 0.5 MG/0.5 ML SYR IV PRN (15:43)
[2023-07-27 17:42] LABS: Hematocrit (blood only) 23.8 % (42.0-52.0); Hemoglobin 7.5 g/dl (14.0-18.0)
[2023-07-27] MEDS: VANCOMYCIN HCL 1,500 MG in SODIUM CHLORIDE 0.9% 500 ML IV SCH (17:46)
[2023-07-27 18:00] LABS: BUN Creatinine Ratio 13.8 (10-20); Calcium 7.8 mg/dl (8.6-10.3); Creatinine Clr Calc Pharmacy 118.2 ml/min; Est GFR (African American) 108.7 ml/min; Est GFR (Non-African American) 93.7 ml/min; Magnesium 1.8 mg/dl (1.7-2.4); Potassium 4.3 mmol/L (3.5-5.1)
[2023-07-27] MEDS: ACETAMINOPHEN 500 MG TAB PO ONE (19:00)
[2023-07-28 00:43] LABS: Basophils # (auto) 0.06 K/uL (0.00-0.20); Basophils % (auto) 0.6 %; Eosinophils # (auto) 0.08 K/uL (0.00-0.50); Eosinophils % (auto) 0.8 %; Hematocrit (blood only) 27.9 % (42.0-52.0); Hemoglobin 8.8 g/dl (14.0-18.0); Immature Granulocytes # (auto) 0.16 K/uL (0.01-0.20); Immature Granulocytes % (auto) 1.7 %; Lymphocytes # (auto) 1.52 K/uL (1.20-3.40); Lymphocytes % (auto) 16.1 %; Mean Corpuscular Hemoglobin 32.5 pg (25.0-34.0); Mean Corpuscular Hgb Conc 31.5 g/dL (32.0-36.0); Mean Platelet Volume 10.4 fL (9.4-12.4); Monocytes # (auto) 1.29 K/uL (0.11-0.59); Monocytes % (auto) 13.6 %; Neutrophils # (auto) 6.36 K/uL (1.40-6.50); Neutrophils % (auto) 67.2 %; Platelet Count 258 K/uL (130-400); RDW Coefficient of Variation 18.2 % (11.5-14.5); RDW Standard Deviation 68.6 fL (36.4-46.3); Red Blood Count 2.71 M/uL (4.70-6.10); White Blood Count 9.47 K/ul (4.8-10.8)
--- NOTE | 2023-07-28 03:56 | Communication Note ---
Notified about tentative plan for surgery tomorrow morning. Reached out to orthopedists process controls technician, Dr. Eduardo, to confirm. Tentative for Dr. Woods to do surgery tomorrow, likely after 1200. Will plan to pause heparin drip 6 hours prior, so 0600 per cardiology recommendations. Date of Service: July 28, 2023
[2023-07-28 06:44] LABS: Albumin Level 3.2 gm/dl (3.4-5.0); BUN Creatinine Ratio 15.9 (10-20); Bilirubin,Total 0.5 mg/dl (0.2-1.0); Calcium 8.1 mg/dl (8.6-10.3); Est GFR (African American) 119.9 ml/min; Est GFR (Non-African American) 103.4 ml/min; Globulin 3.1 gm/dl (2.5-4.0); Magnesium 1.8 mg/dl (1.7-2.4); Potassium 4.2 mmol/L (3.5-5.1); Total Protein 6.3 gm/dl (6.0-8.3)
[2023-07-28 07:18] LABS: ANTI-Xa, UFH(UnfractionatedHep 0.38 IU/ml (0.3-0.7)
[2023-07-28 08:25] LABS: Estimated Average Glucose 154 mg/dl
--- NOTE | 2023-07-28 11:12 | Pharmacy Report ---
Pharmacy PK ABX Note - Date of Service July 28, 2023 - Assessment and Plan Assessment 07/28: Reviewed vancomycin level, predicting subtherapeutic AUC/KEISHA, frequency increased. Knee culture growing GPCs, d/w Dr. Fermin, ampicillin reasonable for bacteremia (no resistance noted for E. faecalis on BCID2, antibiogram shows strong sensitivity to ampicillin), will await blood/knee culture identification before de-escalation. 07/26: 63 year old M receiving vanc/cefepime for treatment of septic L knee. Pertinent microbiologic data includes: Blood culture 08/27 gram positive cocci in chains, E. faecalis on BCID2, knee culture pending. Continuing vanc/cefepime for now- possible de-escalation pending knee culture. Plan Vancomycin * Maintenance dose: increase to vancomycin 1500 mg IV every 8 hours * Regimen is predicted to achieve target AUC/KEISHA of 400-600 mg/L.hr * Vancomycin trough ordered for 07/28 @1300. Pharmacy will continue to follow and will adjust dose/frequency as necessary. Thank you. Pharmacy has transitioned to AUC monitoring for vancomycin. AUC/KEISHA is the preferred PK/PD target and is associated with decreased risk of nephrotoxicity compared to traditional trough targets.
--- NOTE | 2023-07-28 11:52 | Ultrasound Report ---
US soft tissue groin CLINICAL HISTORY: evaluate for fluid around common femoral artery TECHNIQUE: Real-time grayscale sonographic images of the right groin were obtained. Comparison: None available at the time of this dictation. FINDINGS/IMPRESSION: No collection is seen at the right groin, a surgical scar is seen. ACT 112: Negative or not required by law. Electronically signed by: Rm Yoder M.D. 07/28/2023 11:51 AM
--- NOTE | 2023-07-28 11:56 | Hospitalist Progress Note ---
Date of Service July 28, 2023 Assessment & Plan (1) Septic arthritis of knee, left: Plan: patient is s/p TKR of left knee in the past he presented with a swollen, warm, and painful L knee in the setting of fever s/p arthrocentesis of the L knee at ER presentation culture from the L knee is growing GPC - likely to be enterococcus given his positive blood cultures for such to OR today with Dr Woods for I/D of L TKR (2) Bacteremia: Plan: 08/27 admission blood cx's + for GPC cocci --> biofire is positive for enterococcus. remains on cefepime/vanco but can d/c cefepime today. cont vanco for now but can likely transition to ampicillin once full sensitivity panel is back. repeat blood cx's dispatched today to ensure sterility. source - no evidence of pneumonia; no evidence of UTI. I believe the suspected septic L knee is secondary, not the primary, cause of his bacteremia. May 2023 -- Right Common Femoral Artery Endarterectomy with Bovine Patch Angioplasty performed by Dr Garcia -- could this have allowed skin entry of enterococcus? Dr Garcia's team saw him in consult today; ultrasound of right groin operative site performed - no evidence of any abnormalities. He does have hardware in his c-spine. He does have a neurostimulator device as well. Echo done - no valvular vegetations although he has new onset mild-moderate and mild-moderate MR - NEW from his 02/2023 echo. Need for GLADYS?? but he will end up needing 6+ weeks of antibiotics regardless. Will need ID consultation - can obtain this on 07/28 or 07/29. (3) Sepsis due to Enterococcus: Plan: as above repeat blood cx's today (4) Chronic anemia: Plan: baseline Hb about 8-10 Hb on 07/27/23 - 7.1 s/p 2 units PRBCs with nice response to such. Fe studies in 05/2023 c/w Fe deficiency (despite the macrocytosis, which is likely from chronic etoh abuse). B12/folate levels in the recent past wnl. TSH wnl. Repeat CBC in am. (5) Painful total knee replacement, left: Plan: see #1 above (6) Idiopathic polyneuropathy: Plan: cont gabapentin (7) Peripheral vascular disease: Plan: severe multiple procedures of his vascular system in the past including his 05/28/23 procedure on his right [employer]INEER (angioplasty with bovine patch) by Dr Garcia cont plavix he is statin intolerant by history see discussion above re: right groin operative site (8) Chronic anticoagulation: Plan: eliquis - on hold for left knee surgery today was on heparin bridge yesterday/this am but now stopped in prep for his L TKR washout per Dr Woods can resume eliquis AM of 07/30/23 (9) Alcohol use: Plan: 5 beers/day confirms this amount placed on AWSS protocol he is already on gabapentin at high doses monitor for withdrawal - none seen thus far place on thiamine + folic acid (10) Tobacco use disorder: Plan: corrections counselor to quit nicoderm patch 14mg/day (11) Anxiety and depression: Plan: cont cymbalta, etc (12) CAD (coronary artery disease): Plan: anterolateral [place] 2007 2nd to occluded LAD which was stented nonocclusive disease elsewhere by report again statin intolerant cont BB cont plavix (13) Hx of atrial flutter: Plan: s/p ablation procedure 2022 cont telemetry holding eliquis in prep for L knee surgery cont BB (14) Presence of neurostimulator: Plan: could this be the source of his enterococcus? (15) Diabetes mellitus, type 2: Plan: a1c 7% today hold PO meds novolog SSI (16) Sleep apnea: Plan: noncompliant with CPAP device for 1-2 years but started reusing it 2 weeks ago at home to bring home unit in (17) Hypomagnesemia: Plan: 2nd to etoh abuse s/p replacement with normalization (18) Hyponatremia: Plan: somewhat chronic (but intermittent) based on previous labs s/p isotonic fluids with improved Na level this am repeat BMP am (19) Chronic prescription opiate use: Plan: tramadol 100mg BID - for chronic back pain --> cont such dilaudid prn for L knee pain - change dosing interval from q4h to q3h (20) DVT prophylaxis: Plan: heparin drip / Eliquis ALL on hold post-op (21) Foot trauma: Plan: left foot checked x-rays - no fractures Plan extensively updated by phone yesterday evening daughter updated at bedside today appreciate ortho, cardiology assistance Admission and Anticipated Discharge Date Admission Date: July 26, 2023 Subjective tele overnight - NSR, no afib or aflutter during my AM visit his daughter was at bedside reports ongoing L knee pain - dilaudid helps but doesn't completely relieve the pain any movement of the L knee causes pain reports he has been on tramadol 100mg BID for 7+ years denies any dyspnea this am denies abd pain or chest pain Review of Systems Review of Systems: gen - no fevers or chills overnight cv - no orthopnea pulm - no dyspnea at rest neuro - denies tremors, denies etoh withdrawal symptoms GI - no N/V Physical Exam Physical Exam: gen - obese, NAD - tired appearing mouth - MMM neck - no JVD heart - RRR, s1 s2, 1-2/6 systolic murmur RUSB lungs - mild end-exp wheezes b/l unchanged; no increased work of breathing, no rales abd - soft NT ND BS+ skin - left foot ecchymoses unchanged ext - no edema, pulses 2+ b/l musculo - left TKR vertical scar present; tenderness to palpation of the left knee joint; mod-large effusion present; warm to touch neuro - no tremors or signs of etoh withdrawal Results & Data Results & Data Vital Signs (Past 12 Hours) Vital Signs Temp Pulse Pulse Resp BP BP Pulse Ox 07/28/23 09:13 37.1 C 89 18 151/75 H 92 07/28/23 08:50 07/28/23 05:58 88 07/28/23 03:55 36.6 C 81 23 138/73 92 O2 Del Method 07/28/23 09:13 Room Air 07/28/23 08:50 Room Air 07/28/23 05:58 07/28/23 03:55 Room Air Laboratory Results Laboratory Results - last 24 hr 07/27/23 07/27/23 07/27/23 01:33 06:37 12:37 WBC RBC Hgb Hct MCV MCH MCHC RDW Std Deviation RDW Coeff of Kvng Plt Count MPV Immature Gran % (Auto) Neut % (Auto) Lymph % (Auto) [place] % (Auto) Eos % (Auto) Baso % (Auto) Neut # (Auto) Lymph # (Auto) [place] # (Auto) Eos # (Auto) Baso # (Auto) Immature Gran # (Auto) Heparin Anti-Xa, Unfract Sodium Potassium Chloride Carbon Dioxide Anion Gap BUN Creatinine Est Cr Clr Drug Dosing Est GFR ( Amer) Est GFR (Non-Af Amer) BUN/Creatinine Ratio Glucose POC Glucose 137 H Estimat Average Glucose 154 Hemoglobin A1c 7.0 H Calcium Magnesium Total Bilirubin AST ALT Alkaline Phosphatase Total Protein Albumin Globulin Albumin/Globulin Ratio Random Vancomycin Blood Type O Positive Antibody Screen NEGATIVE Crossmatch See Detail 07/27/23 07/27/23 07/27/23 16:21 17:30 20:33 WBC RBC Hgb 7.5 L Hct 23.8 L MCV MCH MCHC RDW Std Deviation RDW Coeff of Kvng Plt Count MPV Immature Gran % (Auto) Neut % (Auto) Lymph % (Auto) [place] % (Auto) Eos % (Auto) Baso % (Auto) Neut # (Auto) Lymph # (Auto) [place] # (Auto) Eos # (Auto) Baso # (Auto) Immature Gran # (Auto) Heparin Anti-Xa, Unfract Sodium 130 L Potassium 4.3 Chloride 102 Carbon Dioxide 23 Anion Gap 5 BUN 11 Creatinine 0.80 Est Cr Clr Drug Dosing 118.2 Est GFR ( Amer) 108.7 Est GFR (Non-Af Amer) 93.7 BUN/Creatinine Ratio 13.8 Glucose 130 H POC Glucose 110 H 117 H Estimat Average Glucose Hemoglobin A1c Calcium 7.8 L Magnesium 1.8 Total Bilirubin AST ALT Alkaline Phosphatase Total Protein Albumin Globulin Albumin/Globulin Ratio Random Vancomycin Blood Type Antibody Screen Crossmatch 07/28/23 07/28/23 07/28/23 00:31 05:46 07:16 WBC 9.47 RBC 2.71 L Hgb 8.8 L Hct 27.9 L MCV 103.0 H MCH 32.5 MCHC 31.5 L RDW Std Deviation 68.6 H RDW Coeff of Kvng 18.2 H Plt Count 258 MPV 10.4 Immature Gran % (Auto) 1.7 Neut % (Auto) 67.2 Lymph % (Auto) 16.1 [place] % (Auto) 13.6 Eos % (Auto) 0.8 Baso % (Auto) 0.6 Neut # (Auto) 6.36 Lymph # (Auto) 1.52 [place] # (Auto) 1.29 H Eos # (Auto) 0.08 Baso # (Auto) 0.06 Immature Gran # (Auto) 0.16 Heparin Anti-Xa, Unfract 0.38 Sodium 132 L Potassium 4.2 Chloride 104 Carbon Dioxide 23 Anion Gap 5 BUN 10 Creatinine 0.63 Est Cr Clr Drug Dosing 150.0 Est GFR ( Amer) 119.9 Est GFR (Non-Af Amer) 103.4 BUN/Creatinine Ratio 15.9 Glucose 106 H POC Glucose 113 H Estimat Average Glucose Hemoglobin A1c Calcium 8.1 L Magnesium 1.8 Total Bilirubin 0.5 AST 21 ALT 20 Alkaline Phosphatase 56 Total Protein 6.3 Albumin 3.2 L Globulin 3.1 Albumin/Globulin Ratio 1.0 Random Vancomycin 7.7 L Blood Type Antibody Screen Crossmatch Diagnostic Findings Microbiology 07/26/23 16:51 Knee,Left Gram Stain - Final 07/26/23 16:51 Knee,Left Aerobic and Anaerobic Culture - Preliminary Gram positive cocci 07/26/23 15:20 Blood Aerobic Blood Culture - Preliminary Gram positive cocci in chains 07/26/23 15:20 Blood Anaerobic Blood Culture - Preliminary Gram positive cocci in chains 07/26/23 14:52 Blood Aerobic Blood Culture - Preliminary Gram positive cocci in chains 07/26/23 14:52 Blood Anaerobic Blood Culture - Preliminary Gram positive cocci in chains PG Care Time/CCT Total # of Minutes Spent Total Time Spent with Patient: Total time spent is greater than 50% in coordination of care (as documented) at patient's floor/unit and/or counseling patient: Coding Level of Care Code 64021 SUB INP/OBS CARE 3/50MIN Diagnoses Septic arthritis of knee, left M00.9 Bacteremia R78.81 Sepsis due to Enterococcus A41.81 Chronic anemia D64.9 Painful total knee replacement, left T84.84XA; Z96.652 Idiopathic polyneuropathy G60.9 Peripheral vascular disease I73.9 Chronic anticoagulation Z79.01 Alcohol use Z78.9 Tobacco use disorder F17.200 Anxiety and depression F41.9; F32.9 CAD (coronary artery disease) I25.10 Hx of atrial flutter Z86.79 Presence of neurostimulator Z96.82 Diabetes mellitus, type 2 E11.9 Sleep apnea G47.30 Hypomagnesemia E83.42 Hyponatremia E87.1 Chronic prescription opiate use Z79.891 DVT prophylaxis Z29.9 Foot trauma S99.929A
--- NOTE | 2023-07-28 12:34 | Cardiology Progress Note ---
Date of Service July 28, 2023 Assessment & Plan (1) Atrial fibrillation with rapid ventricular response: (2) Hx of atrial flutter: (3) Peripheral vascular disease: (4) CAD (coronary artery disease): (5) Painful total knee replacement, left: Plan 63-year-old male with complex cardiac history admitted with septic left knee for which operative intervention is planned. Rhythm remains sinus, continue metoprolol tartrate 50 mg twice daily. Off heparin in anticipation of surgery. Would not resume heparin or apixaban for least 24 hours after surgery to reduce risk of postoperative bleeding. Continue clopidogrel. Hemodynamics reasonable. Admission and Anticipated Discharge Date Admission Date: July 26, 2023 Subjective Uneventful night, remains in sinus rhythm. Plans for surgery this afternoon. No chest pain, dyspnea, or other cardiopulmonary complaints. Knee pain better controlled than yesterday. Physical Exam Physical Exam: No distress. Mildly hypertensive. Pulse 89 bpm and regular. Respirations 18 unlabored. Skin: Few scattered ecchymoses, no generalized lesions. HEENT: unremarkable. Neck: JVP at the clavicle at 90 degrees, no carotid bruits. Lungs: clear. Cardiac: regular rhythm, normal S1-2, no murmur. Abdomen: benign. Extremities: Left knee swollen, mild pretibial edema, peripheral pulses intact. Neurologic: normal affect and conversation, nonfocal. Results & Data Vital Signs (Past 12 Hours) Vital Signs Temp Pulse Pulse Resp BP BP Pulse Ox 07/28/23 09:13 98.8 F 89 18 151/75 H 92 07/28/23 08:50 07/28/23 05:58 88 07/28/23 03:55 97.9 F 81 23 138/73 92 O2 Del Method 07/28/23 09:13 Room Air 07/28/23 08:50 Room Air 07/28/23 05:58 07/28/23 03:55 Room Air Laboratory Results Normal electrolytes, BUN 10, creatinine 0.63. Diagnostic Findings Echocardiogram showed EF 50 to 55% with mild LVH, mild to moderate , mild to moderate MR. Compared with 2022 study, valvular disease now seen, otherwise no significant change. PG Care Time/CCT Total # of Minutes Spent Total Time Spent with Patient: Total time spent is greater than 50% in coordination of care (as documented) at patient's floor/unit and/or counseling patient: Coding Level of Care Code 25020 SUB INP/OBS CARE MIN Diagnoses Atrial fibrillation with rapid ventricular response I48.91 Hx of atrial flutter Z86.79 Peripheral vascular disease I73.9 CAD (coronary artery disease) I25.10 Painful total knee replacement, left T84.84XA; Z96.652
[2023-07-28] MEDS: HYDROmorphone INJ 0.5 MG/0.5 ML SYR IV PRN (12:44)
[2023-07-28] MEDS ORDERED: fentaNYL citrate PF 100 MCG/2 ML VIAL ONE ×2 (12:48→15:25)
[2023-07-28] MEDS ORDERED: MIDAZOLAM HCL 1 MG/ML 2ML VIAL ONE (12:48)
--- NOTE | 2023-07-28 12:53 | Anesthesiology Consultation ---
Date of Service July 28, 2023 Assessment & Plan (1) Encounter for pre-operative examination: Chart Review Chart Review: Acceptable Risk for Surgery History Surgery Operation Date: 07/28/23 07:00 Proposed Procedures p Left Knee DAIR Procedure - Carter Woods MD Operation Date: 07/28/23 07:30 Proposed Procedures p Total Knee Arthroplasty - Stu Eduardo MD Height/Weight Height: 5 ft 10 in Weight: 117.3 kg Allergies Allergy/AdvReac Type Severity Reaction Status Date / Time latex Allergy Unknown Rash Verified 07/18/23 11:58 Penicillins Allergy Unknown Rash Verified 07/18/23 11:58 adhesive AdvReac Unknown Rash Verified 07/18/23 11:58 dronedarone AdvReac Unknown Fatigued Verified 07/18/23 11:58 gemfibrozil AdvReac Unknown BODY ACHES Verified 07/18/23 11:58 NSAIDS (Non-Steroidal AdvReac Unknown TOLD NOT Verified 07/18/23 11:58 Anti-Inflamma TO TAKE - HX STOMACH ULCER Nqjnjeh-OIK-XlN Reductase AdvReac Unknown body aches Verified 07/18/23 11:58 Inhibitor [Tuuqtqw-Eky-Vua Reductase Inhibitor] Medications Home Medications Medication Instructions Recorded Confirmed Last Taken acetaminophen 650 mg 650 mg PO UD PRN ARTHRITIS PAIN 12/06/20 07/26/23 05/27/23 tablet,extended release folic acid 400 mcg tablet 0.4 mg PO QAM 04/23/22 07/26/23 05/27/23 08:00 cholecalciferol (vitamin D3) 125 125 mcg PO QAM 08/14/22 07/26/23 01/22/23 06:15 mcg (5,000 unit) capsule cyanocobalamin (vitamin B-12) 1,000 mcg PO QAM 08/26/22 07/26/23 05/27/23 08:00 1,000 mcg tablet (Vitamin B-12) glimepiride 1 mg tablet 1 mg PO QAM #90 tabs 02/03/23 07/26/23 05/28/23 06:15 lisinopril 40 mg tablet 40 mg PO QAM #90 tabs 02/03/23 07/26/23 03/21/23 08:00 metoprolol tartrate 100 mg tablet 50 mg PO BID 03/25/23 07/26/23 05/28/23 06:15 tramadol 50 mg tablet 100 mg (2 x 50 mg) PO BID #120 tabs 06/09/23 07/26/23 Unknown gabapentin 400 mg capsule 800 mg (2 x 400 mg) PO TID #180 06/25/23 07/26/23 Unknown caps apixaban 5 mg tablet (Eliquis) 5 mg PO BID #180 tabs 06/30/23 07/26/23 Unknown duloxetine 60 mg capsule,delayed 60 mg PO QAM #90 caps 07/02/23 07/26/23 Unknown release (Cymbalta) pantoprazole 40 mg tablet,delayed 40 mg PO QAM #90 tabs 07/02/23 07/26/23 Unknown release evolocumab 140 mg/mL subcutaneous 140 mg subcut .every 2 weeks #6 mL 07/15/23 07/26/23 Unknown pen injector (Sally Villavicencio) clopidogrel 75 mg tablet (Plavix) 75 mg PO QAM 07/18/23 07/26/23 Unknown doxepin 10 mg capsule 10 mg PO HS 07/18/23 07/26/23 Unknown magnesium oxide 400 mg PO QAM 07/18/23 07/26/23 Unknown tamsulosin 0.4 mg capsule 0.4 mg PO HS 07/18/23 07/26/23 Unknown metformin 500 mg tablet,extended 2,000 mg (4 x 500 mg) PO QAM #360 07/28/23 Unknown release 24 hr tabs Active Medications Generic Name Dose Route Start Last Admin Trade Name Freq PRN Reason Stop Dose Admin Acetaminophen 650 mg 07/26/23 21:46 07/27/23 18:56 Acetaminophen 325 Mg Tab PO 08/25/23 21:45 650 mg Q4H PRN Administration Pain or Fever Clopidogrel Bisulfate 75 mg 07/27/23 09:00 07/27/23 08:24 Clopidogrel Bisulfate 75 Mg Tab PO 08/26/23 08:59 75 mg QAM LULU Administration Cyanocobalamin 1,000 mcg 07/27/23 09:00 07/28/23 10:17 Cyanocobalamin (B-12) 500 Mcg Tablet PO 08/26/23 08:59 Not Given QAM LULU Doxepin HCl 10 mg 07/26/23 21:46 07/27/23 21:08 Doxepin Hcl 10 Mg Capsule PO 08/25/23 21:45 10 mg HS LULU Administration Duloxetine HCl 60 mg 07/27/23 09:00 07/28/23 10:16 Duloxetine Hcl 60 Mg Cap PO 08/26/23 08:59 60 mg QAM LULU Administration Folic Acid 400 mcg 07/27/23 09:00 07/28/23 10:17 Folic Acid 400 Mcg Tab PO 08/26/23 08:59 Not Given QAM LULU Gabapentin 800 mg 07/26/23 21:46 07/28/23 10:16 Gabapentin 800 Mg Tab PO 08/25/23 21:45 800 mg TID LULU Administration Hydromorphone HCl 0.25 mg 07/28/23 11:56 07/28/23 12:44 Hydromorphone Inj 0.5 Mg/0.5 Ml Syr IV 08/10/23 12:02 0.25 mg Q3H PRN Administration Pain Potassium Chloride/Sodium Chloride 20 meq in 1,000 mls @ 50 mls/hr 07/26/23 18:00 07/28/23 04:44 Normal Saline W/20 Meq Kcl IV 08/25/23 17:59 50 mls/hr .Q20H LULU Administration Protocol Heparin Sodium/Dextrose 25,000 units in 500 mls @ 0 mls/hr 07/26/23 18:30 07/28/23 09:34 Heparin Sodium/Dextrose IV 08/25/23 18:29 Not Given .Q0M LULU Protocol 0 UNITS/HR Insulin Aspart 0 units 07/26/23 21:46 07/28/23 12:45 Insulin Aspart Per Unit Charge SC 08/25/23 21:45 Not Given ACHS LULU Magnesium Oxide 400 mg 07/27/23 09:00 07/28/23 10:17 Magnesium Oxide 400 Mg Tab PO 08/26/23 08:59 Not Given QAM LULU Metoprolol Tartrate 50 mg 07/26/23 21:46 07/28/23 10:16 Metoprolol Tartrate 50 Mg Tab PO 08/25/23 21:45 50 mg BID LULU Administration Miscellaneous 1 each 07/28/23 08:59 07/28/23 09:33 Remove Nicoderm Patch N/A 08/27/23 08:58 Not Given DAILY@0859 [facility] Nicotine 14 mg 07/27/23 12:45 07/28/23 09:33 Nicotine 14 Mg/24 Hr Patch TD 08/26/23 12:44 Not Given QAM LULU Pantoprazole Sodium 40 mg 07/27/23 09:00 07/28/23 10:16 Pantoprazole 40 Mg Tab PO 08/26/23 08:59 40 mg QAM LULU Administration Tamsulosin HCl 0.4 mg 07/26/23 21:46 07/27/23 21:08 Tamsulosin Hcl 0.4 Mg Cap PO 08/25/23 21:45 0.4 mg HS LULU Administration Tramadol HCl 100 mg 07/26/23 21:46 07/28/23 10:21 Tramadol Hcl 50 Mg Tablet PO 08/25/23 21:45 100 mg BID LULU Administration Vitamin D 125 mcg 07/27/23 09:00 07/28/23 10:17 Cholecalciferol 125 Mcg (5,000 Units) Tab PO 08/26/23 08:59 Not Given QAM LULU Past Medical History Medical History Hx of atrial flutter ablation done 01/20[place] [facility] [place] Nocturia Presence of neurostimulator Diabetic neuropathy History of cardioversion 01/2021, [facility]; F/U DR. 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 History of chronic back pain Neurogenic claudication due to lumbar stenosis History of COVID-19 03/18/2022>resolved 06/28/23 + home test - congestion. Tx with pill. Resolved. No current s/s. History of anxiety Paroxysmal atrial flutter 01/2021- s/p cardoversion- with excessive alcohol intake- felt to be contributing component. No AC. No recurrence per PCP records 07/29/22- - Recurrence in preop area prior to surgery - sent from ACU to ED- admitted to [facility] 07/29/22-07/30/22 Alcohol abuse Pt admits to >4 beers daily Bilateral carotid artery stenosis Per 11/2021 Carotid Doppler: 50-69% stenosis of right ICA, less than 50% stenosis of left ICA, greater than 50% stenosis of right ECA Antegrade flow in both vertebral arteries CAD in [place] artery s/p LAD stent x2 (2006/2007) History of gastric ulcer No recent issues Degenerative disc disease GERD (gastroesophageal reflux disease) Well controlled and stable Diabetes mellitus, type 2 NIDDM Hypertension Hyperlipidemia Sleep apnea "Mild to moderate"-cpap has not been using for sometimes/recently been trying to get back to using. Has trouble tolerating mask. Myocardial infarction Anterolateral [place]- 2008, [place], had cardiac cath; f/u [facility] Past Family History Family History Mother Family history of diabetes mellitus Father Family history of diabetes mellitus Other No family history of adverse response to anesthesia Denies family history of Ovarian cancer Prostate cancer Myocardial infarction Breast cancer Colorectal cancer Past Surgical History Surgical History Presence of neurostimulator 2022 History of cardiac radiofrequency ablation 04/09/20[place] [facility] [place] a-flutter S/P insertion of iliac artery stent Dec 2022? about 6 mon ago/ Dr. Garcia/2 stents. History of endarterectomy Left Femoral Endarterectomy with Bovine Patch 05/08/2022 & right side done 05/28/2023 Hx of cataract extraction rt/lt. History of anesthesia reaction WITH BACK SURGERY 2004 - DISORIENTED, PULLED CATHETER OUT ([facility]) Fusion of spine CERVICAL, "HAVE 80% OF MOTION" History of lumbar surgery X 3 - 2004, 2006, 2019 History of total knee replacement RT/LEFT (LEFT REVISION) Hx of transurethral resection of prostate History of esophagogastroduodenoscopy (EGD) History of colonoscopy History of nasal septoplasty History of heart artery stent 2006 or 2007, x2 stent, [place]; f/u [facility] Social History Smoking Status: Current every day smoker tobacco type: cigarettes Smoking cigarettes per day: 10 cigs per day/advised npo Do You Dip or Chew Tobacco: No Hx Alcohol Use: Yes Alcohol type: beer alcohol intake frequency: 3 or more drinks per day Hx Substance Use: No substance use type: does not use Physical Exam Vital Signs Last Vital Signs Temp 37.1 C 07/28/23 09:13 Pulse 89 07/28/23 09:13 Resp 18 07/28/23 09:13 BP 151/75 H 07/28/23 09:13 Pulse Ox 92 07/28/23 09:13 O2 Del Method Room Air 07/28/23 09:13 O2 Flow Rate 2 07/27/23 22:41 Testing Laboratory Results 07/28/23 00:31 07/28/23 05:46 PT 12.5 Seconds (9.0-12.0) H 07/26/23 19:03 INR 1.2 (0.9-1.1) H 07/26/23 19:03 APTT 36 Seconds (21-31) H 07/26/23 19:03 Hemoglobin A1c 7.0 % (4.5-5.6) H 07/27/23 01:33 Urine Color Yellow 07/26/23 14:55 Urine Appearance Clear (Clear) 07/26/23 14:55 Urine pH 5.5 (4.5-7.5) 07/26/23 14:55 Ur Specific [place] 1.020 (1.000-1.030) 07/26/23 14:55 Urine Protein 1+ (Negative) H 07/26/23 14:55 Urine Glucose (UA) Negative (Negative) 07/26/23 14:55 Urine Ketones Negative (Negative) 07/26/23 14:55 Urine Nitrite Negative (Negative) 07/26/23 14:55 Ur Leukocyte Esterase Negative (Negative) 07/26/23 14:55 Urine WBC (Auto) 1-5 /hpf (0-5) 07/26/23 14:55 Urine RBC (Auto) 0-4 /hpf (0-4) 07/26/23 14:55 U Hyaline Cast (Auto) 1-5 /lpf (0-5) 07/26/23 14:55 U Epithel Cells (Auto) 0-5 /lpf (0-5) 07/26/23 14:55 Urine Bacteria (Auto) Negative (Negative) 07/26/23 14:55 Blood Type O Positive 07/27/23 06:37 Antibody Screen NEGATIVE 07/27/23 06:37 07/26/23 16:51 Gram Stain - Final Knee,Left Aerobic and Anaerobic Culture - Preliminary Gram positive cocci 07/26/23 15:20 Aerobic Blood Culture - Preliminary Blood Gram positive cocci in chains Anaerobic Blood Culture - Preliminary Gram positive cocci in chains 07/26/23 14:52 Aerobic Blood Culture - Preliminary Blood Gram positive cocci in chains Anaerobic Blood Culture - Preliminary Gram positive cocci in chains 07/28/23 07/28/23 12:33 07:16 POC Glucose 126 H 113 H Electrocardiogram Date: 07/26/23 Findings: + AFIB @ (105) Echocardiogram Date: 07/27/23 EF: 50-55% LV Function: normal Valvular Disease: + (mild to mod) and + MR (mild to mod)
[2023-07-28] MEDS: VANCOMYCIN HCL 1,500 MG in SODIUM CHLORIDE 0.9% 500 ML IV SCH (13:57)
--- NOTE | 2023-07-28 13:57 | Consultation ---
Date of Consultation July 28, 2023 Assessment & Plan (1) Peripheral vascular disease: Pt with hx of multiple vascular procedures, including BL common femoral endarterectomies. Bovine tissue patches were used for both, which decreases chance of infection. No obvious external indicators of infection at vascular surgical sites. Pt currently with gram positive bacteremia and infected L knee tka. DIscussed with Dr Garcia. Recommends check R groin for any fluid collection via US. Further recommendations pending results. Pt agreeable. History of Present Illness Reason for Consultation: PAD Attending Physician: Travis Fermin MD History of Present Illness 63yo m with hx of PAD, AIOD, anemia, a fib/flutter, CAD, DMII, JJ, neuropathy, BPH, osteoarthritis, lumbar spinal stenosis, HTN, GERD, chronic pain, admitted with septic L TKA and bacteremia, seen in consultation today for hx of PAD. Pt well known to Dr Garcia's vascular surgical practice for multiple revascularization procedures, including remote BL common iliac stenting, remote L common femoral endarterectomy with bovine patch, and more recently a R common femoral endarterectomy with bovine patch performed in 06/18. Post operatively, pt was seen in office and noted to have mild cellulitis of proximal end of R groin incision, placed on abx x 2 weeks and had complete resolution of erythema. Pain was well controlled throughout. Pt states he felt ill and had increased pain in L knee, so came to [facility]. Pt scheduled for LLE knee procedure today. Of note, pt also with hx of lumbar spinal surgeries and indwelling neurostimulator. Pt denies DAVALOS, chest pain, SOB, abd pain, N/V, rest pain, claudication, other complaints. Allergies Allergy/AdvReac Type Severity Reaction Status Date / Time latex Allergy Unknown Rash Verified 07/18/23 11:58 Penicillins Allergy Unknown Rash Verified 07/18/23 11:58 adhesive AdvReac Unknown Rash Verified 07/18/23 11:58 dronedarone AdvReac Unknown Fatigued Verified 07/18/23 11:58 gemfibrozil AdvReac Unknown BODY ACHES Verified 07/18/23 11:58 NSAIDS (Non-Steroidal AdvReac Unknown TOLD NOT Verified 07/18/23 11:58 Anti-Inflamma TO TAKE - HX STOMACH ULCER [id number] Reductase AdvReac Unknown body aches Verified 07/18/23 11:58 Inhibitor [Yinjajk-Wld-Kxo Reductase Inhibitor] Home Medications Medication Instructions Recorded Confirmed Type acetaminophen 650 mg 650 mg PO UD PRN ARTHRITIS PAIN 12/06/20 07/26/23 History tablet,extended release folic acid 400 mcg tablet 0.4 mg PO QAM 04/23/22 07/26/23 History cholecalciferol (vitamin D3) 125 125 mcg PO QAM 08/14/22 07/26/23 History mcg (5,000 unit) capsule cyanocobalamin (vitamin B-12) 1,000 mcg PO QAM 08/26/22 07/26/23 History 1,000 mcg tablet (Vitamin B-12) glimepiride 1 mg tablet 1 mg PO QAM #90 tabs 02/03/23 07/26/23 Rx lisinopril 40 mg tablet 40 mg PO QAM #90 tabs 02/03/23 07/26/23 Rx metoprolol tartrate 100 mg tablet 50 mg PO BID 03/25/23 07/26/23 History tramadol 50 mg tablet 100 mg (2 x 50 mg) PO BID #120 tabs 06/09/23 07/26/23 Rx gabapentin 400 mg capsule 800 mg (2 x 400 mg) PO TID #180 06/25/23 07/26/23 Rx caps apixaban 5 mg tablet (Eliquis) 5 mg PO BID #180 tabs 06/30/23 07/26/23 Rx duloxetine 60 mg capsule,delayed 60 mg PO QAM #90 caps 07/02/23 07/26/23 Rx release (Cymbalta) pantoprazole 40 mg tablet,delayed 40 mg PO QAM #90 tabs 07/02/23 07/26/23 Rx release evolocumab 140 mg/mL subcutaneous 140 mg subcut .every 2 weeks #6 mL 07/15/23 07/26/23 Rx pen injector (Repatha SureClick) clopidogrel 75 mg tablet (Plavix) 75 mg PO QAM 07/18/23 07/26/23 History doxepin 10 mg capsule 10 mg PO HS 07/18/23 07/26/23 History magnesium oxide 400 mg PO QAM 07/18/23 07/26/23 History tamsulosin 0.4 mg capsule 0.4 mg PO HS 07/18/23 07/26/23 History metformin 500 mg tablet,extended 2,000 mg (4 x 500 mg) PO QAM #360 07/28/23 Rx release 24 hr tabs Patient History Medical History Hx of atrial flutter ablation done 01/2023 [facility] [place] Nocturia Presence of neurostimulator Diabetic neuropathy History of cardioversion 01/2021, [facility]; F/U [facility]YEN Hx of transesophageal echocardiography (GLADYS) for monitoring 01/2021, [facility] Chronic anemia Neuropathy Peripheral arterial disease Severe occlusive disease S/p L common femoral endarterectomy with bovine patch and lithotripsy of SFA and Popliteal arteries , status post bilateral common iliac artery SEED PELLETER and stents. History of chronic back pain Neurogenic claudication due to lumbar stenosis History of COVID-19 03/18/2022>resolved 06/28/23 + home test - congestion. Tx with pill. Resolved. No current s/s. History of anxiety Paroxysmal atrial flutter 01/2021- s/p cardoversion- with excessive alcohol intake- felt to be contributing component. No AC. No recurrence per PCP records 07/29/22- - Recurrence in preop area prior to surgery - sent from ACU to ED- admitted to [facility] 07/29/22-07/30/22 Alcohol abuse Pt admits to >4 beers daily Bilateral carotid artery stenosis Per 11/2021 Carotid Doppler: 50-69% stenosis of right ICA, less than 50% stenosis of left ICA, greater than 50% stenosis of right ECA Antegrade flow in both vertebral arteries CAD in [place] artery s/p LAD stent x2 () History of gastric ulcer No recent issues Degenerative disc disease GERD (gastroesophageal reflux disease) Well controlled and stable Diabetes mellitus, type 2 NIDDM Hypertension Hyperlipidemia Sleep apnea "Mild to moderate"-cpap has not been using for sometimes/recently been trying to get back to using. Has trouble tolerating mask. Myocardial infarction Anterolateral MT- 2008, [place], had cardiac cath; f/u [facility] Surgical History Presence of neurostimulator 2022 History of cardiac radiofrequency ablation 04/09/2023 [facility] for a-flutter S/P insertion of iliac artery stent Dec 2022? about 6 mon ago/ Dr. Garcia/2 stents. History of endarterectomy Left Femoral Endarterectomy with Bovine Patch 05/08/2022 & right side done 05/28/2023 Hx of cataract extraction rt/lt. History of anesthesia reaction WITH BACK SURGERY 2004 - DISORIENTED, PULLED CATHETER OUT ([facility]) Fusion of spine CERVICAL, "HAVE 80% OF MOTION" History of lumbar surgery X 3 - 2004, 2006, 2019 History of total knee replacement RT/LEFT (LEFT REVISION) Hx of transurethral resection of prostate History of esophagogastroduodenoscopy (EGD) History of colonoscopy History of nasal septoplasty History of heart artery stent 2006 or 2007, x2 stent, [place]; f/u dr gutierrez, asa Family History Mother Family history of diabetes mellitus Father Family history of diabetes mellitus Other No family history of adverse response to anesthesia Denies family history of Ovarian cancer Prostate cancer Myocardial infarction Breast cancer Colorectal cancer Social History Smoking Status: Current every day smoker Tobacco Type: Cigarettes Age Started Using Tobacco: 18; Cigarettes Per Day: 10 cigs per day/advised npo; Second Hand Exposure: No; Do You Dip or Chew Tobacco: No; Hx Alcohol Use: Yes Alcohol type: beer Alcohol type Comment: 6-8 beers Hx Substance Use: No Preferred Language: [place] Citizen Communication Ability: Effective Visual Impairment: No Limitations Automotive Quality Engineer Required: No Beliefs That Will Affect Care: None marital status: Current Living Situation: Spouse Current Living Situation Comment: Lives at home with How many Children do You have: 4 Feels Safe at Home: Yes Childhood Exposure to Second-Hand Smoke: Yes Dental Care, Regularly: Yes Physical Activity Frequency: Does not Exercise Seatbelt Use: always Sunscreen Use: No Assistive Devices: CPAP, Glasses and Walker Review of Systems Review of Systems: All systems reviewed & are unremarkable except as noted in HPI & below Physical Exam Constitutional: WD/WN, vitals as above cooperative; not in distress Neck: trachea midline Respiratory: normal respiratory effort, lungs clear to auscultation Auscultation: + diminished lung sounds Cardiovascular: Rate/Rhythm: regular rate and regular rhythm Vessels: femoral pulses present, posterior tibial pulses present, dorsalis pedis pulses present and radial pulses present; + abnormal peripheral pulses Extremities: normal capillary refill Gastrointestinal (Abdomen): Inspection/Auscultation: abdomen normal to in spection and normal bowel sounds Percussion/Palpation: abdomen soft; abdomen nontender Musculoskeletal: no cyanosis or clubbing, extremities motor strength 5/5 Knee: + effusion and + skin erythema Skin: no rashes, warm and dry Neurologic: moves all extremities and awake; no focal motor deficits and not confused Psychiatric: A+Ox3, euthymic affect Results & Data Vital Signs (Past 12 Hours) Vital Signs Temp Pulse Pulse Resp BP BP Pulse Ox 07/28/23 09:13 37.1 C 89 18 151/75 H 92 07/28/23 08:50 07/28/23 05:58 88 07/28/23 03:55 36.6 C 81 23 138/73 92 O2 Del Method 07/28/23 09:13 Room Air 07/28/23 08:50 Room Air 07/28/23 05:58 07/28/23 03:55 Room Air
[2023-07-28] MEDS ORDERED: ROCURONIUM BROMIDE 10 MG/ML 5 ML VIAL IV ONE (14:02)
[2023-07-28] MEDS ORDERED: ONDANSETRON INJ 2 MG/ML 2 ML VIAL ONE (14:02)
[2023-07-28] MEDS ORDERED: PROPOFOL IV EMULSION 10 MG/ML 20 ML VIAL IV ONE (14:02)
[2023-07-28] MEDS ORDERED: DEXAMETHASONE SOD INJ 4 MG/ML VIAL ONE (14:03)
[2023-07-28] MEDS ORDERED: ATROPINE SULFATE 0.1 MG/ML 10ML SYR IV PRN (14:23)
[2023-07-28] MEDS ORDERED: ACETAMINOPHEN 1000 MG/100 ML IV IV ONE (14:43)
[2023-07-28] MEDS ORDERED: FAMOTIDINE/PF 20 MG/2 ML VIAL IV ONE (14:44)
[2023-07-28] MEDS ORDERED: HYDROmorphone INJ 2 MG/ML SYR/VIAL ONE (14:46)
--- NOTE | 2023-07-28 14:57 | History & Physical Bridge Note ---
Date of Service July 28, 2023 History & Physical Bridge Note I have examined the patient, reviewed the History & Physical and in the interval since the performance of the History & Physical I have noted the following changes of clinical significance: no changes noted
[2023-07-28] MEDS ORDERED: PHENYLEPHRINE HCL 10 MG/ML VIAL ONE (15:21)
[2023-07-28] MEDS ORDERED: METOCLOPRAMIDE HCL INJ 5 MG/ML 2 ML VIAL ONE (15:49)
[2023-07-28] MEDS ORDERED: SUGAMMADEX SODIUM 200 MG/2 ML VIAL IV ONE (16:11)
--- NOTE | 2023-07-28 16:15 | Post Operative Brief Note ---
Immediate Post Op Note v1 Date of Surgery July 28, 2023 Pre & Post Diagnosis Operation Date: 07/28/23 07:30 <No data on this case meets the specified criteria> I identified the patient and participated in the time-out.: Yes Procedure Operation Date: 07/28/23 07:30 Actual Procedures p DAIR procedure - Winston Bello MD Surgeon Carter Woods MD Information Security Manager Johan Roblero PA-C Estimated Blood Loss 5 Findings Consistent with Post-Op Diagnosis Drains Hemovac Drain
--- NOTE | 2023-07-28 16:34 | Operative Report ---
Post Operative Report Pre & Post Diagnosis Preop diagnosis: Acute hematogenous infection left total knee replacement Postoperative diagnosis: Same Operation Date: 07/28/23 07:30 <No data on this case meets the specified criteria> I identified the patient and participated in the time-out.: Yes Procedure Operation Date: 07/28/23 07:30 Actual Procedures p DAIR procedure Surgeon Carter Woods MD Joinery Patternmaker Johan Roblero PA-C Estimated Blood Loss 5 Findings Consistent with Post-Op Diagnosis Very mild purulent material the synovium was not overly angry and there was no tissue destruction at all the process appeared to be early Specimens Synovial tissue explanted polyethylene Indications Patient is a chronically ill 63-year-old male with a history of severe peripheral vascular disease chronic atrial fibrillation and type 2 diabetes poorly controlled. He had an injury and fall approximately 4 or 5 days prior. 3 days prior he developed acute pain and swelling was evaluated in the emergency room 2 days prior and was found to have purulent knee with greater than 36,000 white cells and a high poly more for a nuclear percentage. Description of Procedure Following satisfactory general anesthesia the patient was supine on the operating room table. A tourniquet was placed. The lower extremity was prepared with ChloraPrep and draped sterilely. A surgical timeout was performed. Following gravity exsanguination the tourniquet was inflated to 275 mmHg. Using the old knee incision a midline incision was made. Full-thickness flaps were elevated. A median parapatellar arthrotomy was performed. There was approximately 50 to 60 cc of watery purulent looking material. The synovial tissue overall appeared to be benign. A complete synovectomy was performed in the superior lateral superior medial and superior recesses of the knee. This was done using a combination of electro cautery and the Versajet debridement system. When the synovial tissue was debrided back to healthy tissue the tibial polyethylene insert was removed. The Versajet was then used to reach the posterior recesses and clean these as well thoroughly. A Betadine scrub brush and toothbrush was then used to scrub all metallic and polyethylene surfaces to remove biofilm. The knee was then irrigated with 6 L of pulsatile lavage. The knee looks much furniture cleaner at this point. Another liter of Versajet had been used. An additional 500 cc of experience irrigation was placed and the wound was allowed to soak. The entire surgical team then regowned and redraped with a new set of surgical instruments. The knee had previously been trialed for a 15 insert prior to breaking down the set up. The 15 mm high flex 556 highly cross-linked polyethylene insert was then placed and snapped into place. The knee showed good stability. The wound was irrigated with another 500 cc of experience irrigation. 2 Hemovac drains were placed. The arthrotomy was closed with medicated 1 Vicryl interrupted sutures. The subcutaneous tissues were closed deep with medicated 2-0 Vicryl sutures and the skin with surgical sam. A- pressure wound dressing followed by compressive bandage was applied. The patient was returned to his bed in stable condition. Note: Johan BEJARANO was present and assisted throughout due to the complicated nature of this case. He help with preparation and set up, he assistant golf course superintendent throughout. He assisted with hemostasis and exposure throughout the procedure. He also closed the capsule subcutaneous and skin layers and applied the postop dressing. I attest to the content of the Intraoperative Record and any orders documented therein. Any exceptions are noted below.
[2023-07-28] MEDS: PROMETHAZINE HCL 6.25 MG in SODIUM CHLORIDE 0.9% 50 ML IV PRN (17:07)
[2023-07-28] MEDS: HYDROmorphone INJ 1 MG/ML SYRINGE IV PRN (17:08)
--- NOTE | 2023-07-28 17:50 | Anesthesiology Progress Note ---
Date of Service July 28, 2023 Anesthesia Post Procedure Vital Signs Vital Signs: Temp Pulse Pulse Pulse Resp BP BP 07/28/23 17:40 99.1 F 78 17 07/28/23 17:30 90 15 07/28/23 17:20 84 19 07/28/23 17:10 86 12 07/28/23 17:00 87 20 07/28/23 16:50 98.8 F 82 18 07/28/23 14:21 97.9 F 86 18 07/28/23 09:13 98.8 F 89 18 07/28/23 08:50 07/28/23 05:58 88 07/28/23 03:55 97.9 F 81 23 138/73 07/27/23 22:41 97.9 F 76 18 113/73 07/27/23 22:35 98.2 F 77 18 118/77 07/27/23 22:00 77 07/27/23 21:35 98.1 F 80 18 127/79 07/27/23 20:35 98.4 F 88 18 133/74 07/27/23 20:05 97.9 F 89 20 137/77 07/27/23 20:00 07/27/23 19:50 98.6 F 103 H 20 156/74 H 07/27/23 19:32 99.0 F 98 H 20 155/74 H 07/27/23 19:21 99.0 F 98 H 21 155/74 H BP Pulse Ox O2 Del Method O2 Flow Rate 07/28/23 17:40 119/72 96 Nasal Cannula 4 07/28/23 17:30 127/80 97 Nasal Cannula 4 07/28/23 17:20 123/72 97 Oxymask 4 07/28/23 17:10 102/82 99 Oxymask 6 07/28/23 17:00 132/63 99 Oxymask 6 07/28/23 16:50 120/61 96 Oxymask 8 07/28/23 14:21 169/114 H 92 Room Air 07/28/23 09:13 151/75 H 92 Room Air 07/28/23 08:50 Room Air 07/28/23 05:58 07/28/23 03:55 92 Room Air 07/27/23 22:41 97 2 07/27/23 22:35 94 2 07/27/23 22:00 07/27/23 21:35 98 2 07/27/23 20:35 96 07/27/23 20:05 92 2 07/27/23 20:00 Nasal Cannula 2 07/27/23 19:50 90 07/27/23 19:32 90 07/27/23 19:21 90 Room Air Pain Intensity Left Knee: Pain Intensity: 7 Transfer of Care Handoff Completed per policy Notes Mental Status: alert / awake / arousable and participated in evaluation Patient Amnestic to Procedure: Yes Nausea / Vomiting: adequately controlled Pain: adequately controlled Airway Patency, RR, SpO2: stable & adequate BP & HR: stable & adequate Hydration State: stable & adequate Anesthetic Complications: no major complications apparent and Pt Satisfied with anesthetic care
[2023-07-28] MEDS ORDERED: METOCLOPRAMIDE HCL INJ 5 MG/ML 2 ML VIAL IV PRN (17:56)
[2023-07-28] MEDS ORDERED: ONDANSETRON INJ 2 MG/ML 2 ML VIAL IV PRN (17:56)
[2023-07-28] MEDS ORDERED: MAGNESIUM HYDROXIDE SUSP 30 ML UDC PO PRN (17:56)
[2023-07-28] MEDS ORDERED: bisacodyL 10 MG SUPP PR PRN (17:56)
[2023-07-28] MEDS ORDERED: NALOXONE HCL 0.4 MG/1 ML VIAL/CARP IV PRN (17:56)
[2023-07-28] MEDS: PROMETHAZINE HCL INJ 25 MG/ML 1 ML VIAL ONE (18:07)
[2023-07-28] MEDS: SODIUM CHLORIDE 0.9% 50 ML BAG ONE (18:07)
[2023-07-28] MEDS: SODIUM CHLORIDE 0.9% 1,000 ML IV SCH (18:13)
[2023-07-28] MEDS: DOCUSATE SODIUM 100 MG CAP PO SCH (20:57)
[2023-07-28] MEDS: SENNA 8.6 MG TAB PO SCH (20:57)
[2023-07-29 06:05] LABS: Hematocrit (blood only) 23.1 % (42.0-52.0); Hemoglobin 7.3 g/dl (14.0-18.0); Mean Corpuscular Hemoglobin 32.4 pg (25.0-34.0); Mean Corpuscular Hgb Conc 31.6 g/dL (32.0-36.0); Mean Corpuscular Volume 102.7 fL (80.0-100.0); Mean Platelet Volume 10.8 fL (9.4-12.4); Platelet Count 296 K/uL (130-400); RDW Coefficient of Variation 17.5 % (11.5-14.5); RDW Standard Deviation 66.4 fL (36.4-46.3); Red Blood Count 2.25 M/uL (4.70-6.10)
[2023-07-29 06:19] LABS: BUN Creatinine Ratio 16.4 (10-20); Calcium 7.7 mg/dl (8.6-10.3); Creatinine Clr Calc Pharmacy 131.2 ml/min; Est GFR (African American) 112.8 ml/min; Est GFR (Non-African American) 97.3 ml/min; Potassium 4.4 mmol/L (3.5-5.1)
--- NOTE | 2023-07-29 07:28 | Orthopedic Progress Note ---
Date of Service July 29, 2023 Assessment & Plan (1) Septic arthritis of knee, left: Plan: Postop day 1 status post open irrigation and debridement with polyethylene bearing change left septic TKA PT/OT protocols. Weightbearing as tolerated. Gentle range of motion. Patient may sit up in a chair at the bedside with left leg elevated. DVT prophylaxis-apixaban p.o. twice daily, SCDs. Pain management as written. Cultures pending. Gram-positive cocci in chains noted on blood culture. Gram- positive cocci noted on aspirate. Currently on vancomycin. DC planning-patient will require 6 weeks of IV antibiotics with use of oral antibiotics once IV antibiotics finished. Discussed with patient. Admission and Anticipated Discharge Date Admission Date: July 26, 2023 Subjective Postop day 1 Patient sitting up in bed awake and alert. Patient was having some muscle spasms in the left knee off and on during the night but currently is doing okay. States he feels still kind of "rough" this morning but somewhat better from yesterday. No other complaints at this time. Patient having a desire to sit at the bedside for short period of time. Physical Exam Physical Exam: Dressings are clean, dry, and intact. Calves are soft nontender. Neurovascular appears intact. Toes are mobile. He has good dorsiflexion and plantarflexion of the left foot. Hemovac drainage was 300 cc from the previous shift. Results & Data Vital Signs (Past 12 Hours) Vital Signs Temp Pulse Pulse Resp BP BP Pulse Ox 07/29/23 07:10 36.8 C 87 18 167/74 H 94 07/29/23 05:58 83 07/29/23 03:23 36.7 C 99 H 18 137/78 95 07/28/23 23:03 36.7 C 94 H 17 112/65 94 07/28/23 22:00 64 07/28/23 20:26 36.7 C 88 20 136/68 95 O2 Del Method O2 Flow Rate 07/29/23 07:10 Room Air 07/29/23 05:58 07/29/23 03:23 Room Air 07/28/23 23:03 Room Air 07/28/23 22:00 07/28/23 20:26 Nasal Cannula 2 Laboratory Results Laboratory Results WBC 11.10 K/ul (4.8-10.8) H 07/29/23 05:36 RBC 2.25 M/uL (4.70-6.10) L 07/29/23 05:36 Hgb 7.3 g/dl (14.0-18.0) L 07/29/23 05:36 Hct 23.1 % (42.0-52.0) L 07/29/23 05:36 MCV 102.7 fL (80.0-100.0) H 07/29/23 05:36 MCH 32.4 pg (25.0-34.0) 07/29/23 05:36 MCHC 31.6 g/dL (32.0-36.0) L 07/29/23 05:36 RDW Std Deviation 66.4 fL (36.4-46.3) H 07/29/23 05:36 RDW Coeff of Kvng 17.5 % (11.5-14.5) H 07/29/23 05:36 Plt Count 296 K/uL (130-400) 07/29/23 05:36 MPV 10.8 fL (9.4-12.4) 07/29/23 05:36 Immature Gran % (Auto) 1.7 % 07/28/23 00:31 Neut % (Auto) 67.2 % 07/28/23 00:31 Lymph % (Auto) 16.1 % 07/28/23 00:31 Bulloch % (Auto) 13.6 % 07/28/23 00:31 Eos % (Auto) 0.8 % 07/28/23 00:31 Baso % (Auto) 0.6 % 07/28/23 00:31 Neut # (Auto) 6.36 K/uL (1.40-6.50) 07/28/23 00:31 Lymph # (Auto) 1.52 K/uL (1.20-3.40) 07/28/23 00:31 Bulloch # (Auto) 1.29 K/uL (0.11-0.59) H 07/28/23 00:31 Eos # (Auto) 0.08 K/uL (0.00-0.50) 07/28/23 00:31 Baso # (Auto) 0.06 K/uL (0.00-0.20) 07/28/23 00:31 Immature Gran # (Auto) 0.16 K/uL (0.01-0.20) 07/28/23 00:31 Absolute Nucleated RBC 0.02 K/uL (0.00-0.12) 07/27/23 01:33 Nucleated RBC % (auto) 0.2 % 07/27/23 01:33 Polychromasia 1+ 07/27/23 10:17 Anisocytosis Present 07/27/23 10:17 ESR 53 mm/hr (0-20) H 07/26/23 14:55 PT 12.5 Seconds (9.0-12.0) H 07/26/23 19:03 INR 1.2 (0.9-1.1) H 07/26/23 19:03 APTT 36 Seconds (21-31) H 07/26/23 19:03 PTT Ratio 1.3 07/26/23 19:03 Heparin Anti-Xa, Unfract 0.38 IU/ml (0.3-0.7) 07/28/23 05:46 Sodium 133 mmol/L (136-145) L 07/29/23 05:36 Potassium 4.4 mmol/L (3.5-5.1) 07/29/23 05:36 Chloride 103 mmol/L (98-107) 07/29/23 05:36 Carbon Dioxide 21 mmol/L (21-32) 07/29/23 05:36 Anion Gap 9 (3-11) 07/29/23 05:36 BUN 12 mg/dl (6-23) 07/29/23 05:36 Creatinine 0.73 mg/dl (0.6-1.4) 07/29/23 05:36 Est Cr Clr Drug Dosing 131.2 ml/min 07/29/23 05:36 Est GFR ( Amer) 112.8 ml/min 07/29/23 05:36 Est GFR (Non-Af Amer) 97.3 ml/min 07/29/23 05:36 BUN/Creatinine Ratio 16.4 (10-20) 07/29/23 05:36 Glucose 152 mg/dl (70-99(Fasting)) H 07/29/23 05:36 POC Glucose 192 mg/dl (70-99) H 07/28/23 20:31 Estimat Average Glucose 154 mg/dl 07/27/23 01:33 Hemoglobin A1c 7.0 % (4.5-5.6) H 07/27/23 01:33 Lactate 1.1 mmol/L (0.4-2.0) 07/26/23 15:20 Uric Acid 6.5 mg/dl (2.6-7.2) 07/27/23 06:37 Calcium 7.7 mg/dl (8.6-10.3) L 07/29/23 05:36 Magnesium 1.8 mg/dl (1.7-2.4) 07/28/23 05:46 Total Bilirubin 0.5 mg/dl (0.2-1.0) 07/28/23 05:46 AST 21 U/L (13-39) 07/28/23 05:46 ALT 20 U/L (7-52) 07/28/23 05:46 Alkaline Phosphatase 56 U/L (34-104) 07/28/23 05:46 Troponin I High Sens 13.1 pg/ml (0-20) 07/26/23 14:52 C-Reactive Protein 16.45 mg/dl (0-0.5) H 07/26/23 14:52 Total Protein 6.3 gm/dl (6.0-8.3) 07/28/23 05:46 Albumin 3.2 gm/dl (3.4-5.0) L 07/28/23 05:46 Globulin 3.1 gm/dl (2.5-4.0) 07/28/23 05:46 Albumin/Globulin Ratio 1.0 (0.9-2) 07/28/23 05:46 Procalcitonin 0.12 ng/ml (0-0.5) 07/26/23 14:52 Urine Color Yellow 07/26/23 14:55 Urine Appearance Clear (Clear) 07/26/23 14:55 Urine pH 5.5 (4.5-7.5) 07/26/23 14:55 Ur Specific [place] 1.020 (1.000-1.030) 07/26/23 14:55 Urine Protein 1+ (Negative) H 07/26/23 14:55 Urine Glucose (UA) Negative (Negative) 07/26/23 14:55 Urine Ketones Negative (Negative) 07/26/23 14:55 Urine Blood Negative (Negative) 07/26/23 14:55 Urine Nitrite Negative (Negative) 07/26/23 14:55 Urine Bilirubin Negative (Negative) 07/26/23 14:55 Urine Urobilinogen Negative (Negative) 07/26/23 14:55 Ur Leukocyte Esterase Negative (Negative) 07/26/23 14:55 Urine WBC (Auto) 1-5 /hpf (0-5) 07/26/23 14:55 Urine RBC (Auto) 0-4 /hpf (0-4) 07/26/23 14:55 U Hyaline Cast (Auto) 1-5 /lpf (0-5) 07/26/23 14:55 U Epithel Cells (Auto) 0-5 /lpf (0-5) 07/26/23 14:55 Urine Bacteria (Auto) Negative (Negative) 07/26/23 14:55 Fluid Comment 07/26/23 16:51 Synovial Source Left Knee 07/26/23 16:51 Synovial Color Kayli 07/26/23 16:51 Synovial Appearance Cloudy 07/26/23 16:51 Synovial WBC (Auto) 35842 /ul (0-200) H 07/26/23 16:51 Synovial RBC (Auto) 38728 /uL 07/26/23 16:51 Synovial Polynuclear % 78.3 % 07/26/23 16:51 Synovial Mononuclear % 21.7 % 07/26/23 16:51 Synovial Crystals 07/26/23 16:51 Random Vancomycin 7.7 mcg/ml (10-20) L 07/28/23 05:46 Adenovirus (PCR) Not Detected (NotDetected) 07/26/23 15:27 Anaplasma Smear See Comment 07/26/23 14:52 B. pertussis DNA (PCR) Not Detected (NotDetected) 07/26/23 15:27 B.parapertussis DNA PCR Not Detected (NotDetected) 07/26/23 15:27 Lyme Disease Screen Negative (Negative) 07/26/23 14:52 C. pneumoniae DNA (PCR) Not Detected (NotDetected) 07/26/23 15:27 Coronavirus OC43 (PCR) Not Detected (NotDetected) 07/26/23 15:27 Coronavirus HKU1 (PCR) Not Detected (NotDetected) 07/26/23 15:27 Coronavirus 229E (PCR) Not Detected (NotDetected) 07/26/23 15:27 SARS-CoV-2 (PCR) Not Detected (NotDetected) 07/26/23 15:27 Coronavirus NL63 (PCR) Not Detected (NotDetected) 07/26/23 15:27 Enterococc faecalis PCR DETECTED (NotDetected) A 07/26/23 14:52 Human Metapneumovir PCR Not Detected (NotDetected) 07/26/23 15:27 Influenza Type A (PCR) Not Detected (NotDetected) 07/26/23 15:27 Influenza Type B (PCR) Not Detected (NotDetected) 07/26/23 15:27 M. pneumoniae (PCR) Not Detected (NotDetected) 07/26/23 15:27 Parainfluenza 1 (PCR) Not Detected (NotDetected) 07/26/23 15:27 Parainfluenza 2 (PCR) Not Detected (NotDetected) 07/26/23 15:27 Parainfluenza 3 (PCR) Not Detected (NotDetected) 07/26/23 15:27 Parainfluenza 4 (PCR) Not Detected (NotDetected) 07/26/23 15:27 RSV (PCR) Not Detected (NotDetected) 07/26/23 15:27 Entero/Rhino (PCR) Not Detected (NotDetected) 07/26/23 15:27 Aaron/B-Vanco Res Genes VRE Not Detected (NotDetected) 07/26/23 14:52 Bld Cult ID Panel PCR See PCR Comment (NotDetected) 07/26/23 14:52 Blood Type O Positive 07/27/23 06:37 Antibody Screen NEGATIVE 07/27/23 06:37 Crossmatch See Detail 07/27/23 06:37 Impressions Knee X-Ray 07/26/23 15:00 XR knee LT 1 or 2V routine HISTORY: 63 years-old Male ? septic joint chronic left knee pain COMPARISON: 06/02/2017 TECHNIQUE: 2 views of the left knee FINDINGS: Moderate-sized joint effusion. Total joint arthroplasty with patellar resurfacing. No acute fracture or dislocation. Arterial calcifications. Lucency is noted at the interface with the dorsal patella and the patellar hardware with tiny adjacent subcentimeter bone fragments. IMPRESSION: 1. No acute fracture or dislocation. 2. Total joint arthroplasty with possible loosening of the patellar hardware. 3. Moderate-sized joint effusion. ACT 112: Negative or not required by law. The above report was generated using voice recognition software. It may contain grammatical, syntax or spelling errors. Electronically signed by: Juan Cid M.D. 07/26/2023 3:21 PM Electronically signed by: Juan Cid M.D. 07/26/2023 4:23 PM Foot X-Ray 07/27/23 12:05 XR foot LT min 3V routine HISTORY: 63 years-old Male trauma, bruising multiple toes; r/o Fx acute left fo ot pain COMPARISON: 01/07/2023 TECHNIQUE: 3 views of the left foot FINDINGS: Minimal multifocal osteoarthritis. No acute fracture, dislocation, osseous erosion or opaque foreign body. Limited positioning on the lateral view. Calcaneal enthesophytes. IMPRESSION: No acute fracture or dislocation. ACT 112: Negative or not required by law. The above report was generated using voice recognition software. It may contain grammatical, syntax or spelling errors. Electronically signed by: Juan Cid M.D. 07/27/2023 1:13 PM
--- NOTE | 2023-07-29 08:02 | Hospitalist Progress Note ---
Date of Service July 29, 2023 Assessment & Plan (1) Septic arthritis of knee, left: Plan: 63 y/o with severe PAD, complex cardiac history, DM and other medical comorbidities as reported below admitted with sepsis due to enterococcus bacteremia and prosthetic joint infection. Hx TKA bilateral knees. Presented with malaise, fever, L knee pain warmth and swelling. Arthrocentesis in ED confirmed septic joint. Had I&D of L knee 07/[address] Woods blood cultures with GPCs, non-VRE E. faecalis by molecular assay operative culture with GPC Further history obtained - Immediately prior to onset of symptoms above he had a fall and scraped left calf Had red swollen L foot starting 2021. This persisted 6 months, he states it was "infected for 6 months" In the interval had vascular procedure on L leg. October 2022 was treated by PCP with a "strong" oral antibiotic for 10 days and L foot redness and pain resolved. He shows me a photo from 10/2022 foot appears cellulitic at that time with small purulent appearing wound on dorsum of foot Has spinal stimulator as well as c-spine and l-spine hardware, however, no change to chronic neck and back symptoms. Has R TKA and having no pain or swelling at this location. Has chronic L shoulder pain and has been planning a future surgical procedure for this. Ablation for aflutter 03/2023 TTE this admission - no valvular vegetations although he has new onset mild- moderate and mild-moderate MR - NEW from his 02/2023 echo. Multiple vascular procedures - 05/2023 R [employer] CAPTAIN endarterectomy. Also Hx same procedure on L, both sides with bovine tissue patches. US R groin 07/27 without evidence of fluid collection. Vascular surgery consulted this admission. Plan: -continue vancomycin, will require prolonged course of IV antibiotics -consult infectious disease -await blood cultures for clearance -address pain control, add scheduled APAP, PRN IV hydromorphone, add PRN oxycodone -eventual PICC (2) Bacteremia: Plan: see above (3) Sepsis due to Enterococcus: Plan: as above (4) Chronic anemia: Plan: baseline Hb about 8-10 Hb on 07/27/23 - 7.1 s/p 2 units PRBCs with nice response to such. Fe studies in 05/2023 c/w Fe deficiency (despite the macrocytosis, which is likely from chronic etoh abuse). B12/folate levels in the recent past wnl. TSH wnl. CBC today with drop in H/H compared to yesterday but same as 07/26. was transfused 2 units 07/26. Component of acute blood loss anemia related to surgery exacerbated by anticoagulation, 300 mL output from hemovac drain 3/4 -AM CBC (5) Idiopathic polyneuropathy: Plan: cont gabapentin (6) Peripheral vascular disease: Plan: severe multiple procedures of his vascular system in the past including his 05/28/23 procedure on his right [employer] CAPTAIN (angioplasty with bovine patch) by Dr Garcia Also has carotid and vertebral stenoses cont plavix he is statin intolerant by history see discussion above re: right groin operative site follow up with Dr. Garcia in office (7) Chronic anticoagulation: Plan: per Dr Woods can resume eliquis AM of 07/30/23 (ordered) (8) Alcohol use: Plan: 5 beers/day confirms this amount placed on AWSS protocol he is already on gabapentin at high doses monitor for withdrawal - none seen thus far thiamine + folic acid (9) Tobacco use disorder: Plan: work counselor to quit nicoderm patch 14mg/day (10) Anxiety and depression: Plan: cont cymbalta, etc (11) CAD (coronary artery disease): Plan: anterolateral OK 2007 2nd to occluded LAD which was stented nonocclusive disease elsewhere by report again statin intolerant cont BB cont plavix (12) Hx of atrial flutter: Plan: s/p ablation procedure 2022 cont telemetry holding eliquis for L knee surgery cont BB (13) Presence of neurostimulator: (14) Diabetes mellitus, type 2: Plan: a1c 7% hold PO meds novolog SSI -BG at goal (15) Sleep apnea: Plan: noncompliant with CPAP device for 1-2 years but started reusing it 2 weeks ago at home to bring home unit in (16) Hypomagnesemia: Plan: 2nd to etoh abuse s/p replacement with normalization (17) Hyponatremia: Plan: somewhat chronic (but intermittent) based on previous labs stable / mild at 133 (18) Chronic prescription opiate use: Plan: tramadol 100mg BID - for chronic back pain - reviewed PDMP (19) Foot trauma: Plan: left foot checked x-rays - no fractures Plan Extensive PAD, CTA neck on admission - bilateral ICA and vertebral stenoses - follow up with Dr. Holloway Pulmonary nodule 4mm RUL - chest CT recommended in 6 mo for follow up updated by phone 07/26 daughter updated at bedside 07/27, 07/28 Admission and Anticipated Discharge Date Admission Date: July 26, 2023 Subjective L knee pain, remains severe had IV hydromorphone one hour prior to PT but reports it "didn't do anything" Typically takes tramadol 150 mg twice a day Reports L foot infection summer 2021 and scrape to L calf immediately prior to this admission, prior to onset of fevers/malaise and symptoms in L knee Further history as documented below. Has postnasal drip and related cough chronically reports no change to typical symptoms Physical Exam 2 Physical Exam: PHYSICAL EXAMINATION Last 24h vital signs reviewed, see documentation in flowsheet General: lying flat on bed HEENT: Normocephalic, atraumatic, pupils round and equal, sclerae anicteric, no conjunctival injection, moist mucus membranes Lungs: Normal respiratory effort. Clear to auscultation bilaterally. No RRW Heart: Regular rate and rhythm, no murmurs. No JVD Abdomen: Soft, nontender, nondistended. Bowel sounds present. Extremities: Warm, dry, well-perfused. LLE is in GOOD wrap, hemovac drain present. L foot wwp, no wounds, no erythema or tenderness, small scar dorsum left side of forefoot, no deformity. Old ecchymosis L 3/4 toes. Neuro: Alert and oriented x 4, face symmetric, moves 4 extremities well Psych: Normal affect and behavior Results & Data Results & Data Vital Signs (Past 12 Hours) Vital Signs Temp Pulse Pulse Resp BP BP Pulse Ox 07/29/23 07:10 36.8 C 87 18 167/74 H 94 07/29/23 05:58 83 07/29/23 03:23 36.7 C 99 H 18 137/78 95 07/28/23 23:03 36.7 C 94 H 17 112/65 94 07/28/23 22:00 64 07/28/23 20:26 36.7 C 88 20 136/68 95 O2 Del Method O2 Flow Rate 07/29/23 07:10 Room Air 07/29/23 05:58 07/29/23 03:23 Room Air 07/28/23 23:03 Room Air 07/28/23 22:00 07/28/23 20:26 Nasal Cannula 2 Laboratory Results 07/29/23 05:36 07/29/23 05:36 PG Care Time/CCT Total # of Minutes Spent Total Time Spent with Patient: I personally spent: 50 minutes today on clinical care activities including: reviewing chart notes and vital signs reviewing labs reviewing studies arranging consultation examining and counseling the patient counseling the patient's family writing orders documentation Coding Level of Care Code 91213 SUB INP/OBS CARE 3/50MIN Diagnoses Septic arthritis of knee, left M00.9 Bacteremia R78.81 Sepsis due to Enterococcus A41.81 Chronic anemia D64.9 Idiopathic polyneuropathy G60.9 Peripheral vascular disease I73.9 Chronic anticoagulation Z79.01 Alcohol use Z78.9 Tobacco use disorder F17.200 Anxiety and depression F41.9; F32.9 CAD (coronary artery disease) I25.10 Hx of atrial flutter Z86.79 Presence of neurostimulator Z96.82 Diabetes mellitus, type 2 E11.9 Sleep apnea G47.30 Hypomagnesemia E83.42 Hyponatremia E87.1 Chronic prescription opiate use Z79.891 Foot trauma S99.929A
[2023-07-29] MEDS: THIAMINE HCL 100 MG TAB PO SCH (08:07)
[2023-07-29] MEDS: MULTIVITAMIN TAB PO SCH (08:07)
--- NOTE | 2023-07-29 09:32 | Communication Note ---
Date of Service: July 29, 2023 Ultrasound of R groin surgical site indicates no infection. External examination also demonstrates no sign of infection. No indications for vascular surgical intervention at this time. Pt also noted recently to have significant carotid stenosis. He is asymptomatic from this; any vascular intervention will need to be performed after he is cleared from his bacteremia/joint infection. This will be addressed in office a few weeks from now. Please call if needed.
[2023-07-29] MEDS ORDERED: HYDROmorphone INJ 0.5 MG/0.5 ML SYR IV PRN ×2 (12:34→12:35)
--- NOTE | 2023-07-29 14:18 | Pharmacy Report ---
Pharmacy PK ABX Note - Date of Service July 29, 2023 - Assessment and Plan Assessment 07/28: Reviewed vancomycin level, predicting an AUC/KEISHA within goal range. Continue current regimen. Awaiting further identification and sensitivities from cultures. 07/27: Reviewed vancomycin level, predicting subtherapeutic AUC/KEISHA, frequency increased. Knee culture growing GPCs, d/w Dr. Fermin, ampicillin reasonable for bacteremia (no resistance noted for E. faecalis on BCID2, antibiogram shows strong sensitivity to ampicillin), will await blood/knee culture identification before de-escalation. 07/26: 63 year old M receiving vanc/cefepime for treatment of septic L knee. Pertinent microbiologic data includes: Blood culture 08/27 gram positive cocci in chains, E. faecalis on BCID2, knee culture pending. Continuing vanc/cefepime for now- possible de-escalation pending knee culture. Plan Vancomycin * Maintenance dose: continue vancomycin 1500 mg IV every 8 hours * Regimen is predicted to achieve target AUC/KEISHA of 400-600 mg/L.hr * Vancomycin trough ordered as clinically indicated. Pharmacy will continue to follow and will adjust dose/frequency as necessary. Thank you. Pharmacy has transitioned to AUC monitoring for vancomycin. AUC/KEISHA is the preferred PK/PD target and is associated with decreased risk of nephrotoxicity compared to traditional trough targets.
[2023-07-29] MEDS: ACETAMINOPHEN 325 MG TAB PO SCH (14:22)
[2023-07-29] MEDS: oxyCODONE HCL IR 5 MG TAB (IMMEDIATE RELEASE) PO PRN (15:11)
--- NOTE | 2023-07-30 07:16 | Orthopedic Progress Note ---
Date of Service July 30, 2023 Assessment & Plan (1) Septic arthritis of knee, left: Plan: Postop day 2 status post open irrigation and debridement with polyethylene bearing change left septic TKA Patient with episode of confusion last night getting out of bed and ambulating in his room and inadvertently removing his Hemovac drain. Patient currently oriented this morning. PT/OT protocols. Weightbearing as tolerated. Gentle range of motion. Patient may sit up in a chair at the bedside with left leg elevated. DVT prophylaxis-apixaban p.o. twice daily, SCDs. Pain management as written. Cultures showing Enterococcus species. Infectious disease consult has been placed. Await their input. Currently on vancomycin. Labs pending. DC planning-patient will require 6 weeks of IV antibiotics with use of oral antibiotics once IV antibiotics finished. Discussed with patient. Admission and Anticipated Discharge Date Admission Date: July 26, 2023 Subjective Postop day 2 Patient sleeping upon arrival. Easily awoken. Patient is alert after waking up and not confused. Apparently the patient had become confused at some point in the middle of the night with use of narcotics etc. and was found ambulating in the room. Patient did not have any type of fall and once he realized where he was they were able to get back into bed. His drain was inadvertently removed. Dressings remained on. Patient remembers the incident. No new complaints this morning. Pain controlled currently. Physical Exam Physical Exam: Dressings are clean, dry, and intact. Patient's claudia dressing is still functioning. His drain has been removed. No overt bloody drainage noted on the dressing. Calves are soft and nontender. Neurovascular intact. Results & Data Vital Signs (Past 12 Hours) Vital Signs Temp Pulse Pulse Resp BP Pulse Ox O2 Del Method 07/30/23 03:23 36.7 C 75 24 132/67 91 Room Air 07/29/23 23:23 36.6 C 72 18 137/74 98 Nasal Cannula 07/29/23 22:00 73 07/29/23 19:29 37.0 C 86 17 123/70 94 Room Air O2 Flow Rate 07/30/23 03:23 07/29/23 23:23 2 07/29/23 22:00 07/29/23 19:29
[2023-07-30 08:28] LABS: Potassium 3.9 mmol/L (3.5-5.1)
[2023-07-30 08:30] LABS: Creatinine Clr Calc Pharmacy 152.4 ml/min; Est GFR (African American) 119.9 ml/min; Est GFR (Non-African American) 103.4 ml/min
[2023-07-30 08:34] LABS: BUN Creatinine Ratio 18.8 (10-20); C Reactive Protein 12.37 mg/dl (0-0.5); Creatinine Clr Calc Pharmacy 150.1 ml/min; Est GFR (African American) 119.1 ml/min; Est GFR (Non-African American) 102.7 ml/min
[2023-07-30] MEDS: APIXABAN 5 MG TABLET PO SCH (09:35)
--- NOTE | 2023-07-30 11:32 | Cardiology Progress Note ---
Date of Service July 30, 2023 Assessment & Plan (1) Hx of atrial flutter: (2) Peripheral vascular disease: (3) CAD (coronary artery disease): (4) Painful total knee replacement, left: Plan 63-year-old male with complex cardiac history admitted with septic left knee for which he underwent operative intervention on 07/28/2023. Doing well from a cardiac standpoint, continue his usual dose of metoprolol tartrate 50 mg twice daily and apixaban 5 mg twice daily. Continue clopidogrel for peripheral arterial disease. Will sign off, please contact if any change in clinical status (such as recurrent atrial fibrillation). Admission and Anticipated Discharge Date Admission Date: July 26, 2023 Subjective Had operative drainage of his knee 07/28/2023, uneventful hospital course since. No chest pain or dyspnea, rhythm remains sinus with frequent PACs. Physical Exam Physical Exam: No distress. Mildly hypertensive. Pulse 73 bpm and regular with ectopy. Respirations 18 unlabored. Skin: Few scattered ecchymoses, no generalized lesions. HEENT: unremarkable. Neck: JVP at the clavicle at 90 degrees, no carotid bruits. Lungs: clear. Cardiac: regular rhythm with ectopy, normal S1-2, no murmur. Abdomen: benign. Extremities: mild pretibial edema, peripheral pulses intact. Neurologic: normal affect and conversation, nonfocal. Results & Data Vital Signs (Past 12 Hours) Vital Signs Temp Pulse Pulse Resp BP Pulse Ox O2 Del Method 07/30/23 11:15 97.5 F L 73 19 165/79 H 95 Room Air 07/30/23 08:07 69 07/30/23 07:54 98.1 F 71 18 151/77 H 96 Room Air 07/30/23 03:23 98.1 F 75 24 132/67 91 Room Air Laboratory Results Normal electrolytes, BUN 12, creatinine 0.64. PG Care Time/CCT Total # of Minutes Spent Total Time Spent with Patient: Total time spent is greater than 50% in coordination of care (as documented) at patient's floor/unit and/or counseling patient: Coding Level of Care Code 26651 SUB INP/OBS CARE 2/35MIN Diagnoses Hx of atrial flutter Z86.79 Peripheral vascular disease I73.9 CAD (coronary artery disease) I25.10 Painful total knee replacement, left T84.84XA; Z96.652
--- NOTE | 2023-07-30 12:34 | Infectious Disease Consult ---
Date of Consultation July 30, 2023 Assessment & Plan (1) Septic arthritis of knee, left: (2) History of total knee arthroplasty: (3) Sepsis due to Enterococcus: Plan #E. faecalis, AmpS, cleared 07/27 #PJI s/p DAIR OR cultures E.faecalis AmpS #PCN allergy? Hives 63 yo M with h/o idiopathic polyneuropathy, right ICA stenosis, peripheral vascular disease, atrial fibrillation with RVR, hyponatremia, chronic anticoagulation with apixaban, s/p [employer] endarterectomy on 05/28/2023, status post ablation for atrial flutter on 04-09-2023, neurogenic claudication, osteoarthritis, bare-metal stent and anterior descending branch of left coronary artery, right rotator cuff repair admitted to [facility] with fevers, chills s/p fall on left knee. Patient reports he was fixing his home toilet and fell on his right arm, which caused swelling and pain in that area. He began having fevers and chills and soon after. He fell on his left knee and scraped it. Fevers/chills continued and he was brought to ED in setting of left knee swelling. Febrile on admission, WBC 11, 0.7 3/ E. faecalis ampS, 07/26 knee aspiration 07/26 2DE no vegetation Underwent DAIR on 07/[address] Woods, OR cx grew E. faecalis 07/27 repeat blood cultures are NG RECOMMEND: -Patient will need 6 weeks of IV followed by oral suppressive therapy -I discussed with him challenging him with Ampicillin If he doesnt tolerate will recommend daptomycin 10mg/kg IV daily -Will ask micro to add doxycycline sensi as an option for oral suppressive therapy ID will follow Jesusita Grijalva MD Infectious Diseases Consultation Information Consultation was provided via telemedicine using two-way real-time interactive telecommunication between the patient and the telemedicine provider. For the duration of the visit, the provider was performing the assessment from a different facility than the patient. This includesuse of bluetooth stethoscope forauscultationperformed by the telepresenter that the telemedicine provider can hear if described in the physical exam. Event Coordinator Marketing And Sales contact information: Please call [facility] . (Phone Number For Physician Use Only) After establishing a telemedicine visit, patient was: Patient was verified with two unique identifiers, Patient/authorized rep acknowledged consent and understanding and Gave permission to continue telehealth session Time Spent with Patient: Initial => 55 min History of Present Illness Reason for Consultation: PJI Bacteremia Requesting Physician: Dr. De La Cruz Attending Physician: Tricia De La Cruz MD History of Present Illness 63 yo M with h/o idiopathic polyneuropathy, right ICA stenosis, peripheral vascular disease, atrial fibrillation with RVR, hyponatremia, chronic anticoagulation with apixaban, s/p [employer] endarterectomy on 05/28/2023, status post ablation for atrial flutter on 04-09-2023, neurogenic claudication, osteoarthritis, bare-metal stent and anterior descending branch of left coronary artery, right rotator cuff repair admitted to [facility] with fevers, chills s/p fall on left knee. Patient reports he was fixing his home toilet and fell on his right arm, which caused swelling and pain in that area. He began having fevers and chills and soon after. He fell on his left knee and scraped it. Fevers/chills continued and he was brought to ED in setting of left knee swelling. Febrile on admission, WBC 11, 0.7 3/ E. faecalis ampS, / knee aspiration 3 2DE no vegetation Underwent DAIR on 07/[address] Woods, OR cx grew E. faecalis / repeat blood cultures are NG Allergies Allergy/AdvReac Type Severity Reaction Status Date / Time latex Allergy Unknown Rash Verified 07/18/23 11:58 Penicillins Allergy Unknown Rash Verified 07/18/23 11:58 adhesive AdvReac Unknown Rash Verified 07/18/23 11:58 dronedarone AdvReac Unknown Fatigued Verified 07/18/23 11:58 gemfibrozil AdvReac Unknown BODY ACHES Verified 07/18/23 11:58 NSAIDS (Non-Steroidal AdvReac Unknown TOLD NOT Verified 07/18/23 11:58 Anti-Inflamma TO TAKE - HX STOMACH ULCER Pmeghba-MJZ-FwB Reductase AdvReac Unknown body aches Verified 07/18/23 11:58 Inhibitor [Oelxddy-Yqy-Dym Reductase Inhibitor] Home Medications Medication Instructions Recorded Confirmed Type acetaminophen 650 mg 650 mg PO UD PRN ARTHRITIS PAIN 12/06/20 07/26/23 History tablet,extended release folic acid 400 mcg tablet 0.4 mg PO QAM 04/23/22 07/26/23 History cholecalciferol (vitamin D3) 125 125 mcg PO QAM 08/14/22 07/26/23 History mcg (5,000 unit) capsule cyanocobalamin (vitamin B-12) 1,000 mcg PO QAM 08/26/22 07/26/23 History 1,000 mcg tablet (Vitamin B-12) glimepiride 1 mg tablet 1 mg PO QAM #90 tabs 02/03/23 07/26/23 Rx lisinopril 40 mg tablet 40 mg PO QAM #90 tabs 02/03/23 07/26/23 Rx metoprolol tartrate 100 mg tablet 50 mg PO BID 03/25/23 07/26/23 History tramadol 50 mg tablet 100 mg (2 x 50 mg) PO BID #120 tabs 06/09/23 07/26/23 Rx gabapentin 400 mg capsule 800 mg (2 x 400 mg) PO TID #180 06/25/23 07/26/23 Rx caps apixaban 5 mg tablet (Eliquis) 5 mg PO BID #180 tabs 06/30/23 07/26/23 Rx duloxetine 60 mg capsule,delayed 60 mg PO QAM #90 caps 07/02/23 07/26/23 Rx release (Cymbalta) pantoprazole 40 mg tablet,delayed 40 mg PO QAM #90 tabs 07/02/23 07/26/23 Rx release evolocumab 140 mg/mL subcutaneous 140 mg subcut .every 2 weeks #6 mL 07/15/23 07/26/23 Rx pen injector (Sally Villavicencio) clopidogrel 75 mg tablet (Plavix) 75 mg PO QAM 07/18/23 07/26/23 History doxepin 10 mg capsule 10 mg PO HS 07/18/23 07/26/23 History magnesium oxide 400 mg PO QAM 07/18/23 07/26/23 History tamsulosin 0.4 mg capsule 0.4 mg PO HS 07/18/23 07/26/23 History metformin 500 mg tablet,extended 2,000 mg (4 x 500 mg) PO QAM #360 07/28/23 Rx release 24 hr tabs Patient History Medical History Hx of atrial flutter ablation done 01/2023 [facility] Nocturia Presence of neurostimulator Diabetic neuropathy History of cardioversion 01/2021, [facility]; F/U ASA NGUYEN Hx of transesophageal echocardiography (GLADYS) for monitoring 01/2021, [facility] Chronic anemia Neuropathy Peripheral arterial disease Severe occlusive disease S/p L common femoral endarterectomy with bovine patch and lithotripsy of SFA and Popliteal arteries , 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 History of chronic back pain Neurogenic claudication due to lumbar stenosis History of COVID-19 03/18/2022>resolved 06/28/23 + home test - congestion. Tx with pill. Resolved. No current s/s. History of anxiety Paroxysmal atrial flutter 01/2021- s/p cardoversion- with excessive alcohol intake- felt to be contributing component. No AC. No recurrence per PCP records 07/29/22- - Recurrence in preop area prior to surgery - sent from ACU to ED- admitted to [facility] 07/29/22-07/30/22 Alcohol abuse Pt admits to >4 beers daily Bilateral carotid artery stenosis Per 11/2021 Carotid Doppler: 50-69% stenosis of right ICA, less than 50% stenosis of left ICA, greater than 50% stenosis of right ECA Antegrade flow in both vertebral arteries CAD in [place] artery s/p LAD stent x2 () History of gastric ulcer No recent issues Degenerative disc disease GERD (gastroesophageal reflux disease) Well controlled and stable Diabetes mellitus, type 2 NIDDM Hypertension Hyperlipidemia Sleep apnea "Mild to moderate"-cpap has not been using for sometimes/recently been trying to get back to using. Has trouble tolerating mask. Myocardial infarction Anterolateral AR- 2008, [place], had cardiac cath; f/u asa ovalle Surgical History Presence of neurostimulator 2022 History of cardiac radiofrequency ablation 04/09/2023 [facility] for a-flutter S/P insertion of iliac artery stent Dec 2022? about 6 mon ago/ Dr. Garcia/2 stents. History of endarterectomy Left Femoral Endarterectomy with Bovine Patch 05/08/2022 & right side done 05/28/2023 Hx of cataract extraction rt/lt. History of anesthesia reaction WITH BACK SURGERY 2004 - DISORIENTED, PULLED CATHETER OUT ([facility]) Fusion of spine CERVICAL, "HAVE 80% OF MOTION" History of lumbar surgery X 3 - 2004, 2006, 2019 History of total knee replacement RT/LEFT (LEFT REVISION) Hx of transurethral resection of prostate History of esophagogastroduodenoscopy (EGD) History of colonoscopy History of nasal septoplasty History of heart artery stent 2006 or 2007, x2 stent, [place]; f/u asa ovalle Family History Mother Family history of diabetes mellitus Father Family history of diabetes mellitus Other No family history of adverse response to anesthesia Denies family history of Ovarian cancer Prostate cancer Myocardial infarction Breast cancer Colorectal cancer Social History Smoking Status: Current every day smoker Tobacco Type: Cigarettes Age Started Using Tobacco: 18; Cigarettes Per Day: 10 cigs per day/advised npo; Second Hand Exposure: No; Do You Dip or Chew Tobacco: No; Hx Alcohol Use: Yes Alcohol type: beer Alcohol type Comment: 6-8 beers Hx Substance Use: No Preferred Language: Kazakh Communication Ability: Effective Visual Impairment: No Limitations Reeling Machine Operator Required: No Beliefs That Will Affect Care: None marital status: Current Living Situation: Spouse Current Living Situation Comment: Lives at home with How many Children do You have: 4 Feels Safe at Home: Yes Childhood Exposure to Second-Hand Smoke: Yes Dental Care, Regularly: Yes Physical Activity Frequency: Does not Exercise Seatbelt Use: always Sunscreen Use: No Assistive Devices: Cane, CPAP, Walker and Other Physical Exam Physical Exam: NAD L leg wrapped R arm healed sore Results & Data Vital Signs (Past 12 Hours) Vital Signs Temp Pulse Pulse Resp BP Pulse Ox O2 Del Method 07/30/23 11:15 36.4 C L 73 19 165/79 H 95 Room Air 07/30/23 08:07 69 07/30/23 07:54 36.7 C 71 18 151/77 H 96 Room Air 07/30/23 03:23 36.7 C 75 24 132/67 91 Room Air Laboratory Results Laboratory Results - last 48 hr 07/29/23 07/29/23 07/29/23 05:36 11:34 12:52 WBC 11.10 H RBC 2.25 L Hgb 7.3 L Hct 23.1 L MCV 102.7 H MCH 32.4 MCHC 31.6 L RDW Std Deviation 66.4 H RDW Coeff of Kvng 17.5 H Plt Count 296 MPV 10.8 Sodium 133 L Potassium 4.4 Chloride 103 Carbon Dioxide 21 Anion Gap 9 BUN 12 Creatinine 0.73 Est Cr Clr Drug Dosing 131.2 Est GFR ( Amer) 112.8 Est GFR (Non-Af Amer) 97.3 BUN/Creatinine Ratio 16.4 Glucose 152 H POC Glucose 148 H Calcium 7.7 L C-Reactive Protein Random Vancomycin 15.0 07/29/23 07/29/23 07/30/23 16:25 20:38 07:17 WBC RBC Hgb Hct MCV MCH MCHC RDW Std Deviation RDW Coeff of Kvng Plt Count MPV Sodium Potassium Chloride Carbon Dioxide Anion Gap BUN Creatinine Est Cr Clr Drug Dosing Est GFR ( Amer) Est GFR (Non-Af Amer) BUN/Creatinine Ratio Glucose POC Glucose 142 H 132 H 128 H Calcium C-Reactive Protein Random Vancomycin 07/30/23 07/30/23 07/30/23 07:41 07:41 07:41 WBC RBC Hgb Hct MCV MCH MCHC RDW Std Deviation RDW Coeff of Kvng Plt Count MPV Sodium 140 Potassium 3.9 Chloride 109 H Carbon Dioxide 24 Anion Gap 7 BUN 12 Creatinine 0.63 0.64 Est Cr Clr Drug Dosing 152.4 150.1 Est GFR ( Amer) 119.9 Est GFR (Non-Af Amer) BUN/Creatinine Ratio Glucose POC Glucose Calcium C-Reactive Protein Random Vancomycin 07/30/23 07/30/23 07/30/23 07:41 07:41 11:14 WBC RBC Hgb Hct MCV MCH MCHC RDW Std Deviation RDW Coeff of Kvng Plt Count MPV Sodium Potassium Chloride Carbon Dioxide Anion Gap BUN Creatinine Est Cr Clr Drug Dosing Est GFR ( Amer) 119.1 Est GFR (Non-Af Amer) 103.4 102.7 BUN/Creatinine Ratio 18.8 Glucose 109 H POC Glucose 133 H Calcium 8.0 L C-Reactive Protein 12.37 H Random Vancomycin 07/30/23 07/30/23 16:16 20:27 WBC RBC Hgb Hct MCV MCH MCHC RDW Std Deviation RDW Coeff of Kvng Plt Count MPV Sodium Potassium Chloride Carbon Dioxide Anion Gap BUN Creatinine Est Cr Clr Drug Dosing Est GFR ( Amer) Est GFR (Non-Af Amer) BUN/Creatinine Ratio Glucose POC Glucose 112 H 169 H Calcium C-Reactive Protein Random Vancomycin Medications Administered Current Inpatient Medications Acetaminophen (Acetaminophen 325 Mg Tab) 650 mg PO Q6H [facility] Stop: 08/28/23 12:44 Last Admin: 07/30/23 17:09 Dose: 650 mg Apixaban (Apixaban 5 Mg Tablet) 5 mg PO BID [facility] Stop: 08/29/23 08:59 Last Admin: 07/30/23 21:41 Dose: 5 mg Bisacodyl (Bisacodyl 10 Mg Supp) 10 mg AL DAILY PRN PRN Reason: Constipation Stop: 08/27/23 17:55 Clopidogrel Bisulfate (Clopidogrel Bisulfate 75 Mg Tab) 75 mg PO QAM [facility] Stop: 08/26/23 08:59 Last Admin: 07/30/23 09:35 Dose: 75 mg Cyanocobalamin (Cyanocobalamin (B-12) 500 Mcg Tablet) 1,000 mcg PO QAM [facility] Stop: 08/26/23 08:59 Last Admin: 07/30/23 09:36 Dose: 1,000 mcg Dextrose (Dextrose 50% 50 Ml Syringe) 25 - 50 ml IV UD PRN; Protocol PRN Reason: Hypoglycemia Protocol Stop: 08/25/23 21:45 Docusate Sodium (Docusate Sodium 100 Mg Cap) 100 mg PO BID [facility] Stop: 08/27/23 20:59 Last Admin: 07/30/23 21:41 Dose: Not Given Doxepin HCl (Doxepin Hcl 10 Mg Capsule) 10 mg PO HS [facility] Stop: 08/25/23 21:45 Last Admin: 07/30/23 21:41 Dose: 10 mg Duloxetine HCl (Duloxetine Hcl 60 Mg Cap) 60 mg PO QAM [facility] Stop: 08/26/23 08:59 Last Admin: 07/30/23 09:36 Dose: 60 mg Folic Acid (Folic Acid 400 Mcg Tab) 400 mcg PO QAM [facility] Stop: 08/26/23 08:59 Last Admin: 07/30/23 09:36 Dose: 400 mcg Gabapentin (Gabapentin 800 Mg Tab) 800 mg PO TID [facility] Stop: 08/25/23 21:45 Last Admin: 07/30/23 21:41 Dose: 800 mg Glucagon (Glucagon For Inj 1 Mg Vial) 1 mg SQ UD PRN; Protocol PRN Reason: Hypoglycemia Protocol Stop: 08/25/23 21:45 Glucose (Glucose 10 Tab/Tube) 4 - 8 tab PO UD PRN; Protocol PRN Reason: Hypoglycemia Treatment Stop: 08/25/23 21:45 Glucose (Glucose 40% Gel 15 Gm Tube) 15 - 30 gm PO UD PRN; Protocol PRN Reason: Hypoglycemia Protocol Stop: 08/25/23 21:45 Hydromorphone HCl (Hydromorphone Inj 0.5 Mg/0.5 Ml Syr) 0.25 mg IV Q3H PRN PRN Reason: Severe Pain (Scale 7, 8, 9,10) Stop: 08/10/23 12:02 Hydromorphone HCl (Hydromorphone Hcl 4 Mg Tab) 4 mg PO Q4H PRN PRN Reason: Mod-Sev Pain (Scale 4-10) Stop: 08/13/23 13:48 Vancomycin HCl 1,500 mg/ (Sodium Chloride) 530 mls @ 200 mls/hr IV Q8H [facility] Stop: 09/08/23 13:59 Last Admin: 07/30/23 21:41 Dose: 200 mls/hr Insulin Aspart (Insulin Aspart Per Unit Charge) 0 units SC ACHS [facility] Stop: 08/25/23 21:45 Last Admin: 07/30/23 21:50 Dose: 1 units Magnesium Hydroxide (Magnesium Hydroxide Susp 30 Ml Udc) 30 ml PO Q6H PRN PRN Reason: Constipation Stop: 08/27/23 17:55 Magnesium Oxide (Magnesium Oxide 400 Mg Tab) 400 mg PO QAM [facility] Stop: 08/26/23 08:59 Last Admin: 07/30/23 09:37 Dose: 400 mg Metoclopramide HCl (Metoclopramide Hcl Inj 5 Mg/Ml 2 Ml Vial) 10 mg IV Q6H PRN PRN Reason: Nausea And Vomiting Stop: 08/27/23 17:55 Metoprolol Tartrate (Metoprolol Tartrate 50 Mg Tab) 50 mg PO BID [facility] Stop: 08/25/23 21:45 Last Admin: 07/30/23 21:41 Dose: 50 mg Miscellaneous (Carbohydrates For Hypoglycemia ) 15 - 30 gm PO UD PRN PRN Reason: Hypoglycemia Protocol Stop: 08/25/23 21:45 Miscellaneous (Remove Nicoderm Patch) 1 each N/A DAILY@0859 [facility] Stop: 08/27/23 08:58 Last Admin: 07/30/23 09:35 Dose: 1 each Miscellaneous Information (Vancomycin Consult Active) 1 each N/A UD PRN PRN Reason: Consult Stop: 08/25/23 21:45 Multivitamins ([facility]itamin Tab) [facility] Stop: 08/28/23 08:59 Last Admin: 07/30/23 09:37 Dose: 1 tab Naloxone HCl (Naloxone Hcl 0.4 Mg/1 Ml Vial/Carp) 0.1 mg IV Q5M PRN PRN Reason: Oversedation/Resp Depression Stop: 08/27/23 17:55 Nicotine (Nicotine 14 Mg/24 Hr Patch) 14 mg TD [facility] Stop: 08/26/23 12:44 Last Admin: 07/30/23 09:37 Dose: 14 mg Ondansetron HCl (Ondansetron Inj 2 Mg/Ml 2 Ml Vial) 4 mg IV Q6H PRN PRN Reason: Nausea Stop: 08/25/23 21:45 Ondansetron HCl (Ondansetron Inj 2 Mg/Ml 2 Ml Vial) 4 mg IV Q6H PRN PRN Reason: Nausea And Vomiting Stop: 08/27/23 17:55 Pantoprazole Sodium (Pantoprazole 40 Mg Tab) 40 mg PO [facility] Stop: 08/26/23 08:59 Last Admin: 07/30/23 09:37 Dose: 40 mg Sennosides (Senna 8.6 Mg Tab) 17.2 mg PO [facility] Stop: 08/27/23 20:59 Last Admin: 07/30/23 21:41 Dose: Not Given Tamsulosin HCl (Tamsulosin Hcl 0.4 Mg Cap) 0.4 mg PO [facility] Stop: 08/25/23 21:45 Last Admin: 07/30/23 21:41 Dose: 0.4 mg Thiamine HCl (Thiamine Hcl 100 Mg Tab) 200 mg PO BID [facility] Stop: 08/28/23 08:59 Last Admin: 07/30/23 21:41 Dose: 200 mg Vitamin D (Cholecalciferol 125 Mcg (5,000 Units) Tab) 125 mcg PO [facility] Stop: 08/26/23 08:59 Last Admin: 07/30/23 09:35 Dose: 125 mcg (2) History of total knee arthroplasty Laterality: left Qualified Code(s): Z96.652 - Presence of left artificial knee joint
--- NOTE | 2023-07-30 17:31 | Hospitalist Progress Note ---
Date of Service July 30, 2023 Assessment & Plan (1) Septic arthritis of knee, left: Plan: 63 y/o with severe PAD, complex cardiac history, DM and other medical comorbidities as reported below admitted with sepsis due to enterococcus bacteremia and prosthetic joint infection. Hx TKA bilateral knees. Presented with malaise, fever, L knee pain warmth and swelling. Arthrocentesis in ED confirmed septic joint. Had I&D of L knee 07/[address] Woods blood cultures and operative culture with E. faecalis S to PCN, vancomycin follow up blood cultures NGTD at >48h Further history obtained - Immediately prior to onset of symptoms above he had a fall and scraped left calf Had red swollen L foot starting 2021. This persisted 6 months, he states it was "infected for 6 months" In the interval had vascular procedure on L leg. October 2022 was treated by PCP with a "strong" oral antibiotic for 10 days and L foot redness and pain resolved. He shows me a photo from 10/2022 foot appears cellulitic at that time with small purulent appearing wound on dorsum of foot Has spinal stimulator as well as c-spine and l-spine hardware, however, no change to chronic neck and back symptoms. Has R TKA and having no pain or swelling at this location. Has chronic L shoulder pain and has been planning a future surgical procedure for this. Ablation for aflutter 03/2023 TTE this admission - no valvular vegetations although he has new onset mild- moderate and mild-moderate MR - NEW from his 02/2023 echo. Multiple vascular procedures - 05/2023 R CLAM GROWER endarterectomy. Also Hx same procedure on L, both sides with bovine tissue patches. US R groin 07/27 without evidence of fluid collection. Vascular surgery consulted this admission. Plan: -continue vancomycin, will require prolonged course of IV antibiotics -consulted infectious disease - appreciate -await blood cultures for clearance -address pain control - confused after oxycodone 5 mg so try oral hydromorphone 4 mg prn, cont scheduled APAP - improved -eventual PICC (2) Bacteremia: Plan: see above (3) Sepsis due to Enterococcus: Plan: as above (4) Chronic anemia: Plan: baseline Hb about 8-10 Hb on 07/27/23 - 7.1 s/p 2 units PRBCs with nice response to such. Fe studies in 05/2023 c/w Fe deficiency (despite the macrocytosis, which is likely from chronic etoh abuse). B12/folate levels in the recent past wnl. TSH wnl. CBC today with drop in H/H compared to yesterday but same as 07/26. was transfused 2 units 07/26. Component of acute blood loss anemia related to surgery exacerbated by anticoagulation, 300 mL output from hemovac drain 34 -AM CBC ordered (5) Idiopathic polyneuropathy: Plan: cont gabapentin - reduce dose if confusion recurs, this is his usual dose (6) Peripheral vascular disease: Plan: severe multiple procedures of his vascular system in the past including his 05/28/23 procedure on his right CLAM GROWER (angioplasty with bovine patch) by Dr Garcia Also has carotid and vertebral stenoses cont plavix he is statin intolerant by history see discussion above re: right groin operative site follow up with Dr. Garcia in office (7) Chronic anticoagulation: Plan: resumed apixaban 3 AM (8) Alcohol use: Plan: 5 beers/day confirms this amount placed on AWSS protocol he is already on gabapentin at high doses monitor for withdrawal - none seen thus far - confused overnight but no e/o withdrawal based on vitals, exam thiamine + folic acid (9) Tobacco use disorder: Plan: group home counselor to quit nicoderm patch 14mg/day (10) Anxiety and depression: Plan: cont cymbalta, etc (11) CAD (coronary artery disease): Plan: anterolateral LA 2007 06 to occluded LAD which was stented nonocclusive disease elsewhere by report again statin intolerant cont BB cont plavix (12) Hx of atrial flutter: Plan: s/p ablation procedure 2022 cont apixaban, metoprolol (13) Presence of neurostimulator: (14) Diabetes mellitus, type 2: Plan: a1c 7% hold PO meds novolog SSI -BG at goal (15) Sleep apnea: Plan: noncompliant with CPAP device for 1-2 years but started reusing it 2 weeks ago at home to bring home unit in (16) Hypomagnesemia: Plan: 2nd to etoh abuse s/p replacement with normalization (17) Hyponatremia: Plan: somewhat chronic (but intermittent) based on previous labs normal 07/29 at 140 (18) Chronic prescription opiate use: Plan: tramadol 100mg BID - for chronic back pain - reviewed PDMP - held currently (19) Foot trauma: Plan: left foot checked x-rays - no fractures Plan Extensive PAD, CTA neck on admission - bilateral ICA and vertebral stenoses - follow up with Dr. Holloway Pulmonary nodule 4mm RUL - chest CT recommended in 6 mo for follow up updated by phone 07/26 daughter updated at bedside 07/27, 07/28 Admission and Anticipated Discharge Date Admission Date: July 26, 2023 Subjective L knee pain improved since yesterday Overnight was confused (though knew he was in hospital, verbal, alert) had to urinate and forgot about urinal, got OOB unassisted and inadvertently pulled out hemovac drain. He recalls all of this. Had vistaril and gabapentin which are usual for him, had oxycodone 5 mg at bedtime and no IV opioids, reviewed [facility] Physical Exam 2 Physical Exam: PHYSICAL EXAMINATION Last 24h vital signs reviewed, see documentation in flowsheet General: lying on bed awake and alert HEENT: Normocephalic, atraumatic, pupils round and equal, sclerae anicteric, no conjunctival injection, moist mucus membranes Lungs: Normal respiratory effort. Clear to auscultation bilaterally. No RRW Heart: Regular rate and rhythm, no murmurs. No JVD Abdomen: Soft, nontender, nondistended. Bowel sounds present. Extremities: Warm, dry, well-perfused. LLE is in GOOD wrap, hemovac drain was removed. L foot wwp Neuro: Alert and oriented x 4, face symmetric, moves 4 extremities well Psych: Normal affect and behavior Results & Data Results & Data Vital Signs (Past 12 Hours) Vital Signs Temp Pulse Pulse Resp BP Pulse Ox O2 Del Method 07/30/23 14:53 36.6 C 79 18 162/75 H 96 Room Air 07/30/23 11:15 36.4 C L 73 19 165/79 H 95 Room Air 07/30/23 08:07 69 07/30/23 07:54 36.7 C 71 18 151/77 H 96 Room Air Laboratory Results 07/29/23 05:36 07/30/23 07:41 PG Care Time/CCT Total # of Minutes Spent Total Time Spent with Patient: Total time spent is greater than 50% in coordination of care (as documented) at patient's floor/unit and/or counseling patient: Coding Level of Care Code 76175 SUB INP/OBS CARE MIN Diagnoses Septic arthritis of knee, left M00.9 Bacteremia R78.81 Sepsis due to Enterococcus A41.81 Chronic anemia D64.9 Idiopathic polyneuropathy G60.9 Peripheral vascular disease I73.9 Chronic anticoagulation Z79.01 Alcohol use Z78.9 Tobacco use disorder F17.200 Anxiety and depression F41.9; F32.9 CAD (coronary artery disease) I25.10 Hx of atrial flutter Z86.79 Presence of neurostimulator Z96.82 Diabetes mellitus, type 2 E11.9 Sleep apnea G47.30 Hypomagnesemia E83.42 Hyponatremia E87.1 Chronic prescription opiate use Z79.891 Foot trauma S99.929A
[2023-07-30] MEDS: BENZONATATE 100 MG CAPSULE PO PRN (23:35)
[2023-07-31 00:52] LABS: Lyme DNA PCR CSF or Synovial Not Detected (Not Detected); Lyme DNA Source SYNOVIAL FLUID
[2023-07-31 07:43] LABS: Hematocrit (blood only) 23.2 % (42.0-52.0); Hemoglobin 7.3 g/dl (14.0-18.0); Mean Corpuscular Hemoglobin 32.6 pg (25.0-34.0); Mean Corpuscular Hgb Conc 31.5 g/dL (32.0-36.0); Mean Corpuscular Volume 103.6 fL (80.0-100.0); Mean Platelet Volume 10.5 fL (9.4-12.4); Nucleated RBC # (auto) 0.03 K/uL (0.00-0.12); Nucleated RBC % (auto) 0.4 %; Platelet Count 483 K/uL (130-400); RDW Coefficient of Variation 16.7 % (11.5-14.5); RDW Standard Deviation 63.2 fL (36.4-46.3); Red Blood Count 2.24 M/uL (4.70-6.10)
[2023-07-31 08:05] LABS: BUN Creatinine Ratio 14.1 (10-20); Calcium 8.3 mg/dl (8.6-10.3); Creatinine Clr Calc Pharmacy 149.7 ml/min; Est GFR (African American) 119.1 ml/min; Est GFR (Non-African American) 102.7 ml/min; Potassium 3.5 mmol/L (3.5-5.1)
[2023-07-31] MEDS: HYDROmorphone HCL 4 MG TAB PO PRN (08:27)
--- NOTE | 2023-07-31 12:08 | Infectious Disease Progress Nt ---
Date of Service July 31, 2023 Assessment & Plan (1) Septic arthritis of knee, left: (2) History of total knee arthroplasty: (3) Sepsis due to Enterococcus: Plan #E. faecalis, AmpS, cleared 07/27 #PJI s/p DAIR OR cultures E.faecalis AmpS - Sensitive to Amp, Levofloxacin #PCN allergy? Hives 63 yo M with h/o idiopathic polyneuropathy, right ICA stenosis, peripheral vascular disease, atrial fibrillation with RVR, hyponatremia, chronic anticoagulation with apixaban, s/p [employer] endarterectomy on 05/28/2023, status post ablation for atrial flutter on 04-09-2023, neurogenic claudication, osteoarthritis, bare-metal stent and anterior descending branch of left coronary artery, right rotator cuff repair admitted to [facility] with fevers, chills s/p fall on left knee. Patient reports he was fixing his home toilet and fell on his right arm, which caused swelling and pain in that area. He began having fevers and chills and soon after. He fell on his left knee and scraped it. Fevers/chills continued and he was brought to ED in setting of left knee swelling. Febrile on admission, WBC 11, 0.7 3/2 E. faecalis ampS, / knee aspiration 07/26 2DE no vegetation Underwent DAIR on 07/[address] Woods, OR cx grew E. faecalis 07/27 repeat blood cultures are NG I had a discussion with microbiology the E. faecalis is sensitive to Levofloxacin (they are unable to release results until okd by pathology physician in lab) and will update me if they are able to add doxycycline RECOMMEND: -Patient will need 6 weeks of IV followed by oral suppressive therapy -Given he had a penicillin allergy will avoid ampicillin, start daptomycin 10mg/kg IV daily anticipate 6 weeks therapy from surgery (07/27-09/15/23) -Dc vancomycin -Check baseline CPK, patient not on statin -Outpatient Labs will need to include CBC with diff, CMP, ESR, CRP, CPK -Once he is done with IV, recommend change to oral suppressive abx, ideally this will be doxycycline 100mg po BID x 6 months..if not sensitive then consider levofloxacin -Can place PICC line -Microbiology has updated me that they can doxycycline sensi so this can be a potential option for oral suppressive therapy -Strongly recommend he sees ID as outpatient D/W Primary team, Dr. De La Cruz and Ortho Dr. Peggy Wagoner.Terrell patient and his , Vero at bedside - discussed picc line hygiene as well as AEs of Daptomycin ID will sign off at this time Jesusita Grijalva MD Infectious Diseases Admission and Anticipated Discharge Date Admission Date: July 26, 2023 Subjective Subsequent visit was provided via telemedicine using two-way real-time interactive telecommunication between the patient and the telemedicine provider. For the duration of the visit, the provider was performing the assessment from a different facility than the patient. This includesuse of bluetooth stethoscope forauscultationperformed by the telepresenter that the telemedicine provider can hear if described in the physical exam. [employer] contact information: Please call [facility] . (Phone Number For Physician Use Only) After establishing a telemedicine visit, patient was: Patient was verified with two unique identifiers, Patient/authorized rep acknowledged consent and understanding and Gave permission to continue telehealth session Time Spent with Patient: Subsequent => 25 min Physical Exam Physical Exam: NAD L leg wrapped R arm healed sore Results & Data Vital Signs (Past 12 Hours) Vital Signs Temp Pulse Resp BP BP Pulse Ox O2 Del Method 07/31/23 11:20 36.3 C L 73 19 185/83 H 95 Room Air 07/31/23 10:03 Room Air 07/31/23 07:29 36.7 C 71 20 182/84 H 95 Room Air 07/31/23 03:11 36.3 C L 66 20 162/81 H 93 Room Air Laboratory Results Laboratory Results - last 48 hr 07/26/23 07/29/23 07/29/23 16:51 12:52 16:25 WBC RBC Hgb Hct MCV MCH MCHC RDW Std Deviation RDW Coeff of Kvng Plt Count MPV Absolute Nucleated RBC Nucleated RBC % (auto) Sodium Potassium Chloride Carbon Dioxide Anion Gap BUN Creatinine Est Cr Clr Drug Dosing Est GFR ( Amer) Est GFR (Non-Af Amer) BUN/Creatinine Ratio Glucose POC Glucose 142 H Calcium C-Reactive Protein Fld Lyme DNA (PCR) Not Detected Random Vancomycin 15.0 Lyme Specimen Source SYNOVIAL FLUID Lyme DNA Comment see note 07/29/23 07/30/23 07/30/23 20:38 07:17 07:41 WBC RBC Hgb Hct MCV MCH MCHC RDW Std Deviation RDW Coeff of Kvng Plt Count MPV Absolute Nucleated RBC Nucleated RBC % (auto) Sodium 140 Potassium 3.9 Chloride 109 H Carbon Dioxide 24 Anion Gap 7 BUN 12 Creatinine 0.63 Est Cr Clr Drug Dosing Est GFR ( Amer) Est GFR (Non-Af Amer) BUN/Creatinine Ratio Glucose POC Glucose 132 H 128 H Calcium C-Reactive Protein Fld Lyme DNA (PCR) Random Vancomycin Lyme Specimen Source Lyme DNA Comment 07/30/23 07/30/23 07/30/23 07:41 07:41 07:41 WBC RBC Hgb Hct MCV MCH MCHC RDW Std Deviation RDW Coeff of Kvng Plt Count MPV Absolute Nucleated RBC Nucleated RBC % (auto) Sodium Potassium Chloride Carbon Dioxide Anion Gap BUN Creatinine 0.64 Est Cr Clr Drug Dosing 152.4 150.1 Est GFR ( Amer) 119.9 119.1 Est GFR (Non-Af Amer) 103.4 BUN/Creatinine Ratio Glucose POC Glucose Calcium C-Reactive Protein Fld Lyme DNA (PCR) Random Vancomycin Lyme Specimen Source Lyme DNA Comment 07/30/23 07/30/23 07/30/23 07:41 11:14 16:16 WBC RBC Hgb Hct MCV MCH MCHC RDW Std Deviation RDW Coeff of Kvng Plt Count MPV Absolute Nucleated RBC Nucleated RBC % (auto) Sodium Potassium Chloride Carbon Dioxide Anion Gap BUN Creatinine Est Cr Clr Drug Dosing Est GFR ( Amer) Est GFR (Non-Af Amer) 102.7 BUN/Creatinine Ratio 18.8 Glucose 109 H POC Glucose 133 H 112 H Calcium 8.0 L C-Reactive Protein 12.37 H Fld Lyme DNA (PCR) Random Vancomycin Lyme Specimen Source Lyme DNA Comment 07/30/23 07/31/23 07/31/23 20:27 06:52 07:13 WBC 7.30 RBC 2.24 L Hgb 7.3 L Hct 23.2 L MCV 103.6 H MCH 32.6 MCHC 31.5 L RDW Std Deviation 63.2 H RDW Coeff of Kvng 16.7 H Plt Count 483 H MPV 10.5 Absolute Nucleated RBC 0.03 Nucleated RBC % (auto) 0.4 Sodium 140 Potassium 3.5 Chloride 107 Carbon Dioxide 25 Anion Gap 8 BUN 9 Creatinine 0.64 Est Cr Clr Drug Dosing 149.7 Est GFR ( Amer) 119.1 Est GFR (Non-Af Amer) 102.7 BUN/Creatinine Ratio 14.1 Glucose 99 POC Glucose 169 H 111 H Calcium 8.3 L C-Reactive Protein Fld Lyme DNA (PCR) Random Vancomycin Lyme Specimen Source Lyme DNA Comment 07/31/23 11:00 WBC RBC Hgb Hct MCV MCH MCHC RDW Std Deviation RDW Coeff of Kvng Plt Count MPV Absolute Nucleated RBC Nucleated RBC % (auto) Sodium Potassium Chloride Carbon Dioxide Anion Gap BUN Creatinine Est Cr Clr Drug Dosing Est GFR ( Amer) Est GFR (Non-Af Amer) BUN/Creatinine Ratio Glucose POC Glucose 143 H Calcium C-Reactive Protein Fld Lyme DNA (PCR) Random Vancomycin Lyme Specimen Source Lyme DNA Comment Microbiology 07/26/23 16:51 Knee,Left Gram Stain - Final 07/26/23 16:51 Knee,Left Aerobic and Anaerobic Culture - Final Enterococcus faecalis 07/28/23 09:55 Blood Aerobic Blood Culture - Preliminary No growth in Aerobic bottle after 48 hours. 07/28/23 09:55 Blood Anaerobic Blood Culture - Preliminary No growth in Anaerobic bottle after 48 hours. 07/28/23 09:43 Blood Aerobic Blood Culture - Preliminary No growth in Aerobic bottle after 48 hours. 07/28/23 09:43 Blood Anaerobic Blood Culture - Preliminary No growth in Anaerobic bottle after 48 hours. 07/26/23 15:20 Blood Aerobic Blood Culture - Final Enterococcus faecalis 07/26/23 15:20 Blood Anaerobic Blood Culture - Final Enterococcus faecalis 07/26/23 14:52 Blood Aerobic Blood Culture - Final Enterococcus faecalis 07/26/23 14:52 Blood Anaerobic Blood Culture - Final Enterococcus faecalis (2) History of total knee arthroplasty Laterality: left Qualified Code(s): Z96.652 - Presence of left artificial knee joint
[2023-07-31] MEDS: HYDROmorphone INJ 0.5 MG/0.5 ML SYR IV PRN (13:30)
--- NOTE | 2023-07-31 14:22 | Cardiology Progress Note ---
Date of Service July 31, 2023 Assessment & Plan (1) Hypertension: (2) Hx of atrial flutter: (3) Peripheral vascular disease: (4) CAD (coronary artery disease): (5) Painful total knee replacement, left: Plan 63-year-old male with complex cardiac history admitted with septic left knee for which he underwent operative intervention on 07/28/2023. Doing well from a cardiac standpoint, no rhythm issues postoperatively, with history of atrial flutter would continue his usual dose of metoprolol tartrate 50 mg twice daily and apixaban 5 mg twice daily. Continue clopidogrel for peripheral arterial disease. BP was low normal postoperatively but is now moderately hypertensive, would resume his home antihypertensive of lisinopril 40 mg daily. Will sign off from a cardiac standpoint, please notify if any change in clinical status (dysrhythmia, etc.). Admission and Anticipated Discharge Date Admission Date: July 26, 2023 Subjective Uneventful night. No chest pain or dyspnea. No ongoing cardiac issues. Telemetry showed sinus rhythm with PACs, rate in the 70 bpm range. Physical Exam Physical Exam: No distress. Moderately hypertensive. Pulse 73 bpm and regular with ectopy. Respirations 18 unlabored. Skin: Few scattered ecchymoses, no generalized lesions. HEENT: unremarkable. Neck: JVP at the clavicle at 90 degrees, no carotid bruits. Lungs: clear. Cardiac: regular rhythm with ectopy, normal S1-2, no murmur. Abdomen: benign. Extremities: mild pretibial edema, peripheral pulses intact. Neurologic: normal affect and conversation, nonfocal. Results & Data Vital Signs (Past 12 Hours) Vital Signs Temp Pulse Resp BP BP Pulse Ox O2 Del Method 07/31/23 11:20 97.3 F L 73 19 185/83 H 95 Room Air 07/31/23 10:03 Room Air 07/31/23 07:29 98.1 F 71 20 182/84 H 95 Room Air 07/31/23 03:11 97.3 F L 66 20 162/81 H 93 Room Air Laboratory Results Hemoglobin 7.3. Normal electrolytes, BUN 9, creatinine 0.64. PG Care Time/CCT Total # of Minutes Spent Total Time Spent with Patient: Total time spent is greater than 50% in coordination of care (as documented) at patient's floor/unit and/or counseling patient: Coding Level of Care Code 74741 SUB INP/OBS CARE 06/19MIN Diagnoses Primary hypertension I10 Hypertension type: primary hypertension Hx of atrial flutter Z86.79 Peripheral vascular disease I73.9 CAD (coronary artery disease) I25.10 Painful total knee replacement, left T84.84XA; Z96.652 (1) Hypertension Hypertension type: primary hypertension Qualified Code(s): I10 - Essential (primary) hypertension
[2023-07-31] MEDS: DAPTOmycin 925 MG in SYRINGE 0 ML IV SCH (15:13)
--- NOTE | 2023-07-31 16:39 | Orthopedic Progress Note ---
Date of Service July 31, 2023 Assessment & Plan (1) Septic arthritis of knee, left: Plan: Postop day 3 status post open irrigation and debridement with polyethylene bearing change left septic TKA Patient progressively getting better. PT/OT protocols. Weightbearing as tolerated. Gentle range of motion. Patient may sit up in a chair at the bedside with left leg elevated. DVT prophylaxis-apixaban p.o. twice daily, SCDs. Pain management as written. Cultures showing Enterococcus species. Infectious disease consult has been placed. Final IV antibiotics will be daptomycin 10 mg/kg for 6 weeks. Currently awaiting input on use of oral antibiotics once IV antibiotics are PICC line placement pending Prescriptions placed in chart for weekly lab draws and home health care for PICC line DC planning- likely home with home health services for IV antibiotics and physical therapy. Admission and Anticipated Discharge Date Admission Date: July 26, 2023 Subjective postop day 3 patient currently eating his dinner. Patient looks much better today. States he did better in his physical therapy. Overall he feels a lot better than he was. Patient continues to be seen by medicine service as well as infectious disease. Final recommendations placed in by infectious disease team although waiting on oral antibiotic recommendations post IV antibiotics. No complaints of the patient today at this time. patient states that he thought he might be getting his PICC line today however they have not come to his room yet. Physical Exam Physical Exam: Breezy dressing has some scant dried drainage noted on it. Otherwise it is benign. He has swelling consistent with surgery. Calves are soft nontender. Neurovascular intact. Results & Data Vital Signs (Past 12 Hours) Vital Signs Temp Pulse Resp BP Pulse Ox O2 Del Method 07/31/23 14:54 36.3 C L 70 20 170/77 H 94 Room Air 07/31/23 11:20 36.3 C L 73 19 185/83 H 95 Room Air 07/31/23 10:03 Room Air 07/31/23 07:29 36.7 C 71 20 182/84 H 95 Room Air Laboratory Results Laboratory Results WBC 7.30 K/ul (4.8-10.8) 07/31/23 06:52 RBC 2.24 M/uL (4.70-6.10) L 07/31/23 06:52 Hgb 7.3 g/dl (14.0-18.0) L 07/31/23 06:52 Hct 23.2 % (42.0-52.0) L 07/31/23 06:52 MCV 103.6 fL (80.0-100.0) H 07/31/23 06:52 MCH 32.6 pg (25.0-34.0) 07/31/23 06:52 MCHC 31.5 g/dL (32.0-36.0) L 07/31/23 06:52 RDW Std Deviation 63.2 fL (36.4-46.3) H 07/31/23 06:52 RDW Coeff of Kvng 16.7 % (11.5-14.5) H 07/31/23 06:52 Plt Count 483 K/uL (130-400) H 07/31/23 06:52 MPV 10.5 fL (9.4-12.4) 07/31/23 06:52 Immature Gran % (Auto) 1.7 % 07/28/23 00:31 Neut % (Auto) 67.2 % 07/28/23 00:31 Lymph % (Auto) 16.1 % 07/28/23 00:31 Davie % (Auto) 13.6 % 07/28/23 00:31 Eos % (Auto) 0.8 % 07/28/23 00:31 Baso % (Auto) 0.6 % 07/28/23 00:31 Neut # (Auto) 6.36 K/uL (1.40-6.50) 07/28/23 00:31 Lymph # (Auto) 1.52 K/uL (1.20-3.40) 07/28/23 00:31 Davie # (Auto) 1.29 K/uL (0.11-0.59) H 07/28/23 00:31 Eos # (Auto) 0.08 K/uL (0.00-0.50) 07/28/23 00:31 Baso # (Auto) 0.06 K/uL (0.00-0.20) 07/28/23 00:31 Immature Gran # (Auto) 0.16 K/uL (0.01-0.20) 07/28/23 00:31 Absolute Nucleated RBC 0.03 K/uL (0.00-0.12) 07/31/23 06:52 Nucleated RBC % (auto) 0.4 % 07/31/23 06:52 Polychromasia 1+ 07/27/23 10:17 Anisocytosis Present 07/27/23 10:17 ESR 53 mm/hr (0-20) H 07/26/23 14:55 PT 12.5 Seconds (9.0-12.0) H 07/26/23 19:03 INR 1.2 (0.9-1.1) H 07/26/23 19:03 APTT 36 Seconds (21-31) H 07/26/23 19:03 PTT Ratio 1.3 07/26/23 19:03 Heparin Anti-Xa, Unfract 0.38 IU/ml (0.3-0.7) 07/28/23 05:46 Sodium 140 mmol/L (136-145) 07/31/23 06:52 Potassium 3.5 mmol/L (3.5-5.1) 07/31/23 06:52 Chloride 107 mmol/L (98-107) 07/31/23 06:52 Carbon Dioxide 25 mmol/L (21-32) 07/31/23 06:52 Anion Gap 8 (3-11) 07/31/23 06:52 BUN 9 mg/dl (6-23) 07/31/23 06:52 Creatinine 0.64 mg/dl (0.6-1.4) 07/31/23 06:52 Est Cr Clr Drug Dosing 149.7 ml/min 07/31/23 06:52 Est GFR ( Amer) 119.1 ml/min 07/31/23 06:52 Est GFR (Non-Af Amer) 102.7 ml/min 07/31/23 06:52 BUN/Creatinine Ratio 14.1 (10-20) 07/31/23 06:52 Glucose 99 mg/dl (70-99(Fasting)) 07/31/23 06:52 POC Glucose 108 mg/dl (70-99) H 07/31/23 16:14 Estimat Average Glucose 154 mg/dl 07/27/23 01:33 Hemoglobin A1c 7.0 % (4.5-5.6) H 07/27/23 01:33 Lactate 1.1 mmol/L (0.4-2.0) 07/26/23 15:20 Uric Acid 6.5 mg/dl (2.6-7.2) 07/27/23 06:37 Calcium 8.3 mg/dl (8.6-10.3) L 07/31/23 06:52 Magnesium 1.8 mg/dl (1.7-2.4) 07/28/23 05:46 Total Bilirubin 0.5 mg/dl (0.2-1.0) 07/28/23 05:46 AST 21 U/L (13-39) 07/28/23 05:46 ALT 20 U/L (7-52) 07/28/23 05:46 Alkaline Phosphatase 56 U/L (34-104) 07/28/23 05:46 Troponin I High Sens 13.1 pg/ml (0-20) 07/26/23 14:52 C-Reactive Protein 12.37 mg/dl (0-0.5) H 07/30/23 07:41 Total Protein 6.3 gm/dl (6.0-8.3) 07/28/23 05:46 Albumin 3.2 gm/dl (3.4-5.0) L 07/28/23 05:46 Globulin 3.1 gm/dl (2.5-4.0) 07/28/23 05:46 Albumin/Globulin Ratio 1.0 (0.9-2) 07/28/23 05:46 Procalcitonin 0.12 ng/ml (0-0.5) 07/26/23 14:52 Urine Color Yellow 07/26/23 14:55 Urine Appearance Clear (Clear) 07/26/23 14:55 Urine pH 5.5 (4.5-7.5) 07/26/23 14:55 Ur Specific [place] 1.020 (1.000-1.030) 07/26/23 14:55 Urine Protein 1+ (Negative) H 07/26/23 14:55 Urine Glucose (UA) Negative (Negative) 07/26/23 14:55 Urine Ketones Negative (Negative) 07/26/23 14:55 Urine Blood Negative (Negative) 07/26/23 14:55 Urine Nitrite Negative (Negative) 07/26/23 14:55 Urine Bilirubin Negative (Negative) 07/26/23 14:55 Urine Urobilinogen Negative (Negative) 07/26/23 14:55 Ur Leukocyte Esterase Negative (Negative) 07/26/23 14:55 Urine WBC (Auto) 1-5 /hpf (0-5) 07/26/23 14:55 Urine RBC (Auto) 0-4 /hpf (0-4) 07/26/23 14:55 U Hyaline Cast (Auto) 1-5 /lpf (0-5) 07/26/23 14:55 U Epithel Cells (Auto) 0-5 /lpf (0-5) 07/26/23 14:55 Urine Bacteria (Auto) Negative (Negative) 07/26/23 14:55 Fld Lyme DNA (PCR) Not Detected (Not Detected) 07/26/23 16:51 Fluid Comment 07/26/23 16:51 Synovial Source Left Knee 07/26/23 16:51 Synovial Color Kayli 07/26/23 16:51 Synovial Appearance Cloudy 07/26/23 16:51 Synovial WBC (Auto) 53918 /ul (0-200) H 07/26/23 16:51 Synovial RBC (Auto) 16139 /uL 07/26/23 16:51 Synovial Polynuclear % 78.3 % 07/26/23 16:51 Synovial Mononuclear % 21.7 % 07/26/23 16:51 Synovial Crystals 07/26/23 16:51 Random Vancomycin 15.0 mcg/ml (10-20) 07/29/23 12:52 Adenovirus (PCR) Not Detected (NotDetected) 07/26/23 15:27 Anaplasma Smear See Comment 07/26/23 14:52 A. phagocytophilum DNA Negative (Negative) 07/26/23 14:52 B. pertussis DNA (PCR) Not Detected (NotDetected) 07/26/23 15:27 B.parapertussis DNA PCR Not Detected (NotDetected) 07/26/23 15:27 Lyme Specimen Source SYNOVIAL FLUID 07/26/23 16:51 Lyme Disease Screen Negative (Negative) 07/26/23 14:52 Lyme DNA Comment see note 07/26/23 16:51 C. pneumoniae DNA (PCR) Not Detected (NotDetected) 07/26/23 15:27 Coronavirus OC43 (PCR) Not Detected (NotDetected) 07/26/23 15:27 Coronavirus HKU1 (PCR) Not Detected (NotDetected) 07/26/23 15:27 Coronavirus 229E (PCR) Not Detected (NotDetected) 07/26/23 15:27 SARS-CoV-2 (PCR) Not Detected (NotDetected) 07/26/23 15:27 Coronavirus NL63 (PCR) Not Detected (NotDetected) 07/26/23 15:27 Enterococc faecalis PCR DETECTED (NotDetected) A 07/26/23 14:52 Human Metapneumovir PCR Not Detected (NotDetected) 07/26/23 15:27 Influenza Type A (PCR) Not Detected (NotDetected) 07/26/23 15:27 Influenza Type B (PCR) Not Detected (NotDetected) 07/26/23 15:27 M. pneumoniae (PCR) Not Detected (NotDetected) 07/26/23 15:27 Parainfluenza 1 (PCR) Not Detected (NotDetected) 07/26/23 15:27 Parainfluenza 2 (PCR) Not Detected (NotDetected) 07/26/23 15:27 Parainfluenza 3 (PCR) Not Detected (NotDetected) 07/26/23 15:27 Parainfluenza 4 (PCR) Not Detected (NotDetected) 07/26/23 15:27 RSV (PCR) Not Detected (NotDetected) 07/26/23 15:27 Entero/Rhino (PCR) Not Detected (NotDetected) 07/26/23 15:27 Aaron/B-Vanco Res Genes VRE Not Detected (NotDetected) 07/26/23 14:52 Bld Cult ID Panel PCR See PCR Comment (NotDetected) 07/26/23 14:52 Blood Type O Positive 07/27/23 06:37 Antibody Screen NEGATIVE 07/27/23 06:37 Crossmatch See Detail 07/27/23 06:37
--- NOTE | 2023-07-31 20:05 | Hospitalist Progress Note ---
Date of Service July 31, 2023 Assessment & Plan (1) Septic arthritis of knee, left: Plan: 63 y/o with severe PAD, complex cardiac history, DM and other medical comorbidities as reported below admitted with sepsis due to enterococcus bacteremia and prosthetic joint infection. Hx TKA bilateral knees. Presented with malaise, fever, L knee pain warmth and swelling. Arthrocentesis in ED confirmed septic joint. Had I&D of L knee 07/[address] Woods blood cultures and operative culture with E. faecalis S to PCN, vancomycin follow up blood cultures NGTD at >48h TTE this admission - no valvular vegetations although he has new onset mild- moderate and mild-moderate MR - NEW from his 02/2023 echo. 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 Also Hx same procedure on L, both sides with bovine tissue patches. US R groin 07/27 without evidence of fluid collection. Vascular surgery consulted this admission. Plan: -discussed with ID Dr. Grijalva, has PCN allergy recommended daptomycin 10 mg/kg which I discussed with pharmacist and ordered -CK ordered -consented for PICC, ordered -FU blood cultures for clearance -needs ID follow up, suppressive oral abx after 6 weeks IV -weekly monitoring labs (2) Bacteremia: Plan: see above (3) Sepsis due to Enterococcus: Plan: as above (4) Chronic anemia: Plan: baseline Hb about 8-10 Hb on 07/27/23 - 7.1 s/p 2 units PRBCs with nice response to such. Fe studies in 05/2023 c/w Fe deficiency (despite the macrocytosis, which is likely from chronic etoh abuse). B12/folate levels in the recent past wnl. TSH wnl. CBC today with drop in H/H compared to yesterday but same as 07/26. was transfused 2 units 07/26. 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 Garcia in office (7) Chronic anticoagulation: Plan: resumed apixaban 3/6 AM (8) Alcohol use: Plan: 5 beers/day confirms this amount placed on AWSS protocol he is already on gabapentin at high doses monitor for withdrawal - none seen thus far thiamine + folic acid (9) Tobacco use disorder: Plan: after school counselor to quit nicoderm patch 14mg/day (10) Anxiety and depression: Plan: cont cymbalta, etc (11) CAD (coronary artery disease): Plan: anterolateral [place] 2007 2nd to occluded LAD which was stented nonocclusive disease elsewhere by report again statin intolerant cont BB cont plavix (12) Hx of atrial flutter: Plan: s/p ablation procedure 2022 cont apixaban, metoprolol cough, leg edema - oral lasix 40 mg x 2 days (13) Presence of neurostimulator: (14) Diabetes mellitus, type 2: Plan: a1c 7% hold PO meds novolog SSI -BG at goal (15) Sleep apnea: Plan: noncompliant with CPAP device for 1-2 years but started reusing it 2 weeks ago at home to bring home unit in (16) Hypomagnesemia: Plan: 2nd to etoh abuse s/p replacement with normalization (17) Hyponatremia: Plan: somewhat chronic (but intermittent) based on previous labs normal 07/30 at 140 (18) Chronic prescription opiate use: Plan: tramadol 100mg BID - for chronic back pain - reviewed PDMP - held currently (19) Foot trauma: Plan: left foot checked x-rays - no fractures Plan Extensive PAD, CTA neck on admission - bilateral ICA and vertebral stenoses - follow up with Dr. Holloway Pulmonary nodule 4mm RUL - chest CT recommended in 6 mo for follow up updated by phone 07/26 daughter updated at bedside 07/27, 07/28 Admission and Anticipated Discharge Date Admission Date: July 26, 2023 Subjective L knee pain improved, controlled on po meds, has done PT, no further confusion episodes, has cough Physical Exam 2 Physical Exam: PHYSICAL EXAMINATION Last 24h vital signs reviewed, see documentation in flowsheet General: lying on bed awake and alert exam unchanged 07/30 HEENT: Normocephalic, atraumatic, pupils round and equal, sclerae anicteric, no conjunctival injection, moist mucus membranes Lungs: Normal respiratory effort. Clear to auscultation bilaterally. No RRW Heart: Regular rate and rhythm, no murmurs. No JVD Abdomen: Soft, nontender, nondistended. Bowel sounds present. Extremities: Warm, dry, well-perfused. LLE is no longer in GOOD wrap, incisions cdi no erythema Neuro: Alert and oriented x 4, face symmetric, moves 4 extremities well Psych: Normal affect and behavior Results & Data Results & Data Vital Signs (Past 12 Hours) Vital Signs Temp Pulse Pulse Resp BP BP Pulse Ox 07/31/23 19:05 36.5 C 98 H 18 169/74 H 98 07/31/23 18:18 74 07/31/23 14:54 36.3 C L 70 20 170/77 H 94 07/31/23 11:20 36.3 C L 73 19 185/83 H 95 07/31/23 10:03 O2 Del Method 07/31/23 19:05 Room Air 07/31/23 18:18 07/31/23 14:54 Room Air 07/31/23 11:20 Room Air 07/31/23 10:03 Room Air Laboratory Results 07/31/23 06:52 07/31/23 06:52 PG Care Time/CCT Total # of Minutes Spent Total Time Spent with Patient: 50 minutes spent today in reviewing chart/labs/vitals, discussion with ID oracle bpm consultant and clinical pharmacist, examining and counseling patient, discussing risks/benefits of PICC, writing orders, documentation Coding Level of Care Code 31444 SUB INP/OBS CARE 3/50MIN Diagnoses Septic arthritis of knee, left M00.9 Bacteremia R78.81 Sepsis due to Enterococcus A41.81 Chronic anemia D64.9 Idiopathic polyneuropathy G60.9 Peripheral vascular disease I73.9 Chronic anticoagulation Z79.01 Alcohol use Z78.9 Tobacco use disorder F17.200 Anxiety and depression F41.9; F32.9 CAD (coronary artery disease) I25.10 Hx of atrial flutter Z86.79 Presence of neurostimulator Z96.82 Diabetes mellitus, type 2 E11.9 Sleep apnea G47.30 Hypomagnesemia E83.42 Hyponatremia E87.1 Chronic prescription opiate use Z79.891 Foot trauma S99.929A
[2023-08-01] MEDS ORDERED: VANCOMYCIN LEVEL ONE (05:00)
[2023-08-01 06:48] LABS: Hematocrit (blood only) 23.5 % (42.0-52.0); Hemoglobin 7.6 g/dl (14.0-18.0); Mean Corpuscular Hemoglobin 32.3 pg (25.0-34.0); Mean Corpuscular Hgb Conc 32.3 g/dL (32.0-36.0); Mean Platelet Volume 10.2 fL (9.4-12.4); Nucleated RBC # (auto) 0.05 K/uL (0.00-0.12); Nucleated RBC % (auto) 0.6 %; Platelet Count 537 K/uL (130-400); RDW Coefficient of Variation 16.4 % (11.5-14.5); RDW Standard Deviation 59.7 fL (36.4-46.3); Red Blood Count 2.35 M/uL (4.70-6.10); White Blood Count 7.92 K/ul (4.8-10.8)
[2023-08-01 07:20] LABS: BUN Creatinine Ratio 11.6 (10-20); Calcium 8.5 mg/dl (8.6-10.3); Creatinine Clr Calc Pharmacy 137.9 ml/min; Est GFR (African American) 115.5 ml/min; Est GFR (Non-African American) 99.6 ml/min; Potassium 3.3 mmol/L (3.5-5.1)
--- NOTE | 2023-08-01 07:43 | Orthopedic Progress Note ---
Date of Service August 01, 2023 Assessment & Plan (1) Septic arthritis of knee, left: Plan: Postop day 4 status post open irrigation and debridement with polyethylene bearing change left septic TKA Patient progressively getting better. PT/OT protocols. Weightbearing as tolerated. Gentle range of motion. Patient may sit up in a chair at the bedside with left leg elevated. DVT prophylaxis-apixaban p.o. twice daily, SCDs. Pain management as written. Cultures showing Enterococcus species. Infectious disease consult has been placed. Final IV antibiotics will be daptomycin 10 mg/kg for 6 weeks. Currently awaiting input on use of oral antibiotics once IV antibiotics are done. PICC line placement pending Prescriptions placed in chart for weekly lab draws and home health care for PICC line DC to home when PICC line placed and medically stable. DC planning- likely home with home health services for IV antibiotics and physical therapy. Admission and Anticipated Discharge Date Admission Date: July 26, 2023 Subjective Postop day 4 Patient sitting up in bed awake and alert. Patient continues to feel better each day. States that he and his daughter walked around in his room and just outside of his room yesterday without difficulty. Pain is controlled currently. Patient states that he will be getting his PICC line in today. No new complaints. Physical Exam Physical Exam: Breezy dressing remains benign. Swelling around the knee is about the same. Consistent with surgery. Calves are soft nontender. Neurovascular intact. Results & Data Vital Signs (Past 12 Hours) Vital Signs Temp Pulse Pulse Resp BP Pulse Ox O2 Del Method 08/01/23 03:01 36.7 C 73 16 167/69 H 94 Room Air 07/31/23 22:26 36.6 C 91 H 16 175/97 H 96 Room Air 07/31/23 22:00 94 H 07/31/23 20:30 Room Air Laboratory Results 08/01/23 08/01/23 07/31/23 Range/Units 07:27 06:14 20:11 WBC 7.92 (4.8-10.8) K/ul RBC 2.35 L (4.70-6.10) M/uL Hgb 7.6 L (14.0-18.0) g/dl Hct 23.5 L (42.0-52.0) % MCV 100.0 (80.0-100.0) fL MCH 32.3 (25.0-34.0) pg MCHC 32.3 (32.0-36.0) g/dL RDW Std Deviation 59.7 H (36.4-46.3) fL RDW Coeff of Kvng 16.4 H (11.5-14.5) % Plt Count 537 H (130-400) K/uL MPV 10.2 (9.4-12.4) fL Absolute Nucleated RBC 0.05 (0.00-0.12) K/uL Nucleated RBC % (auto) 0.6 % Sodium 140 (136-145) mmol/L Potassium 3.3 L (3.5-5.1) mmol/L Chloride 106 (98-107) mmol/L Carbon Dioxide 26 (21-32) mmol/L Anion Gap 8 (3-11) BUN 8 (6-23) mg/dl Creatinine 0.69 (0.6-1.4) mg/dl Est Cr Clr Drug Dosing 137.9 ml/min Est GFR ( Amer) 115.5 ml/min Est GFR (Non-Af Amer) 99.6 ml/min BUN/Creatinine Ratio 11.6 (10-20) Glucose 122 H (70-99(Fasting)) mg/dl POC Glucose 137 H 135 H (70-99) mg/dl Calcium 8.5 L (8.6-10.3) mg/dl Total Creatine Kinase 74 (30-223) U/L A. phagocytophilum DNA (Negative) Misc Micro Test 07/31/23 07/31/23 07/31/23 Range/Units 16:14 11:00 06:52 WBC 7.30 (4.8-10.8) K/ul RBC 2.24 L (4.70-6.10) M/uL Hgb 7.3 L (14.0-18.0) g/dl Hct 23.2 L (42.0-52.0) % MCV 103.6 H (80.0-100.0) fL MCH 32.6 (25.0-34.0) pg MCHC 31.5 L (32.0-36.0) g/dL RDW Std Deviation 63.2 H (36.4-46.3) fL RDW Coeff of Kvng 16.7 H (11.5-14.5) % Plt Count 483 H (130-400) K/uL MPV 10.5 (9.4-12.4) fL Absolute Nucleated RBC 0.03 (0.00-0.12) K/uL Nucleated RBC % (auto) 0.4 % Sodium 140 (136-145) mmol/L Potassium 3.5 (3.5-5.1) mmol/L Chloride 107 (98-107) mmol/L Carbon Dioxide 25 (21-32) mmol/L Anion Gap 8 (3-11) BUN 9 (6-23) mg/dl Creatinine 0.64 (0.6-1.4) mg/dl Est Cr Clr Drug Dosing 149.7 ml/min Est GFR ( Amer) 119.1 ml/min Est GFR (Non-Af Amer) 102.7 ml/min BUN/Creatinine Ratio 14.1 (10-20) Glucose 99 (70-99(Fasting)) mg/dl POC Glucose 108 H 143 H (70-99) mg/dl Calcium 8.3 L (8.6-10.3) mg/dl Total Creatine Kinase (30-223) U/L A. phagocytophilum DNA (Negative) Misc Micro Test 07/26/23 07/26/23 Range/Units 16:51 14:52 WBC (4.8-10.8) K/ul RBC (4.70-6.10) M/uL Hgb (14.0-18.0) g/dl Hct (42.0-52.0) % MCV (80.0-100.0) fL MCH (25.0-34.0) pg MCHC (32.0-36.0) g/dL RDW Std Deviation (36.4-46.3) fL RDW Coeff of Kvng (11.5-14.5) % Plt Count (130-400) K/uL MPV (9.4-12.4) fL Absolute Nucleated RBC (0.00-0.12) K/uL Nucleated RBC % (auto) % Sodium (136-145) mmol/L Potassium (3.5-5.1) mmol/L Chloride (98-107) mmol/L Carbon Dioxide (21-32) mmol/L Anion Gap (3-11) BUN (6-23) mg/dl Creatinine (0.6-1.4) mg/dl Est Cr Clr Drug Dosing ml/min Est GFR ( Amer) ml/min Est GFR (Non-Af Amer) ml/min BUN/Creatinine Ratio (10-20) Glucose (70-99(Fasting)) mg/dl POC Glucose (70-99) mg/dl Calcium (8.6-10.3) mg/dl Total Creatine Kinase (30-223) U/L A. phagocytophilum DNA Negative (Negative) Misc Micro Test Pending
--- NOTE | 2023-08-01 07:59 | Orthopedic Progress Note ---
Date of Service August 01, 2023 Assessment & Plan (1) Septic arthritis of knee, left: Plan: Postop day 4 status post open irrigation and debridement with polyethylene bearing change left septic TKA Patient progressively getting better. PT/OT protocols. Weightbearing as tolerated. Gentle range of motion. Patient may sit up in a chair at the bedside with left leg elevated. DVT prophylaxis-apixaban p.o. twice daily, SCDs. Pain management as written. Cultures showing Enterococcus species. Infectious disease consult has been placed. Final IV antibiotics will be daptomycin 10 mg/kg for 6 weeks. Currently awaiting input on use of oral antibiotics once IV antibiotics are done. PICC line placement pending Prescriptions placed in chart for weekly lab draws and home health care for PICC line DC to home when PICC line placed and medically stable. DC planning- likely home with home health services for IV antibiotics and physical therapy. Pain control may be an issue as the patient is chronically on pain medication we will leave this to medicine to decide Admission and Anticipated Discharge Date Admission Date: July 26, 2023 Subjective Postop day 4 Patient sitting up in bed awake and alert. Patient continues to feel better each day. States that he and his daughter walked around in his room and just outside of his room yesterday without difficulty. Pain is controlled currently. Patient states that he will be getting his PICC line in today. No new complaints. Physical Exam Physical Exam: claudia dressing is clean with a few small spots of drainage but overall dry and intact. There is moderate bruising and swelling of the leg with a small effusion. His range of motion in bed is easily 0 to 90 degrees Results & Data Vital Signs (Past 12 Hours) Vital Signs Temp Pulse Pulse Resp BP Pulse Ox O2 Del Method 08/01/23 03:01 36.7 C 73 16 167/69 H 94 Room Air 07/31/23 22:26 36.6 C 91 H 16 175/97 H 96 Room Air 07/31/23 22:00 94 H 07/31/23 20:30 Room Air
[2023-08-01 08:54] LABS: C Reactive Protein 5.58 mg/dl (0-0.5)
[2023-08-01] MEDS ORDERED: FUROSEMIDE 40 MG TAB PO SCH (09:00)
[2023-08-01] MEDS: lisinopril 40 MG TAB PO SCH (09:18)
[2023-08-01] MEDS: POTASSIUM CHLORIDE CRTAB 20 MEQ TABCR PO STA (09:18)
[2023-08-01] MEDS ORDERED: HEPARIN 100 UNIT/ML 5ML FLUSH FLUSH PRN (12:37)
[2023-08-01] MEDS: FUROSEMIDE INJ 20 MG/2 ML VIAL IV ONE (12:53)
[2023-08-01] MEDS: POTASSIUM CHLORIDE CRTAB 20 MEQ TABCR PO ONE (14:47)
--- NOTE | 2023-08-01 15:51 | Hospitalist Progress Note ---
Date of Service August 01, 2023 Assessment & Plan (1) Septic arthritis of knee, left: Plan: 63 y/o with severe PAD, complex cardiac history, DM and other medical comorbidities as reported below admitted with sepsis due to enterococcus bacteremia and prosthetic joint infection. Hx TKA bilateral knees. Presented with malaise, fever, L knee pain warmth and swelling. Arthrocentesis in ED confirmed septic joint. Had I&D of L knee 07/[address] Woods blood cultures and operative culture with E. faecalis S to PCN, vancomycin follow up blood cultures 07/27 NGTD TTE this admission - no valvular vegetations although he has new onset mild- moderate and mild-moderate MR - NEW from his 02/2023 echo. 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 Also Hx same procedure on L, both sides with bovine tissue patches. US R groin 07/27 without evidence of fluid collection. Vascular surgery consulted this admission. Consulted ID recommended daptomycin 10 mg/kg x 6 weeks for prosthetic joint infection followed by oral antibiotic suppression, ID follow up -discussed with ID Dr. Grijalva, has PCN allergy recommended daptomycin 10 mg/kg which I discussed with pharmacist and ordered -CK normal 07/31 -consented for PICC, ordered - pending -weekly monitoring labs -discussed with care coordination - home infusion set up could discharge after 3pm ABX dose tomorrow (2) Bacteremia: Plan: see above (3) Sepsis due to Enterococcus: Plan: as above (4) Chronic anemia: Plan: baseline Hb about 8-10 Hb on 07/27/23 - 7.1 s/p 2 units PRBCs with nice response to such. Fe studies in 05/2023 c/w Fe deficiency (despite the macrocytosis, which is likely from chronic etoh abuse). B12/folate levels in the recent past wnl. TSH wnl. 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 Garcia in office (7) Chronic anticoagulation: Plan: resumed apixaban 3/6 AM (8) Alcohol use: Plan: no alcohol withdrawal occurred this admission thiamine + folic acid supplemented (9) Tobacco use disorder: Plan: memorial counselor to quit nicoderm patch 14mg/day (10) Anxiety and depression: Plan: cont cymbalta, etc (11) CAD (coronary artery disease): Plan: anterolateral [place] 2007 2nd to occluded LAD which was stented nonocclusive disease elsewhere by report again statin intolerant cont BB cont plavix resumed GOOD collections technician consulted this admission (12) Hx of atrial flutter: Plan: s/p ablation procedure 2022 cont apixaban, metoprolol cough, leg edema, wheezing this AM - replaced hypokalemia then ordered trial of lasix 20 mg IV x 1, assess response. Possible volume overload, not known to have lung disease but does smoke. (13) Presence of neurostimulator: (14) Diabetes mellitus, type 2: Plan: a1c 7% hold PO meds novolog SSI -BG at goal (15) Sleep apnea: Plan: noncompliant with CPAP device for 1-2 years but started reusing it 2 weeks ago at home to bring home unit in (16) Hypomagnesemia: Plan: 2nd to etoh abuse s/p replacement with normalization (17) Hyponatremia: Plan: somewhat chronic (but intermittent) based on previous labs normal 07/31 at 140 (18) Chronic prescription opiate use: Plan: tramadol 100mg BID - for chronic back pain - reviewed PDMP - held currently (19) Foot trauma: Plan: left foot checked x-rays - no fractures Plan Extensive PAD, CTA neck on admission - bilateral ICA and vertebral stenoses - follow up with Dr. Holloway Pulmonary nodule 4mm RUL - chest CT recommended in 6 mo for follow up Hypokalemia - 3.3 - replaced with 40 po this AM, then IV lasix, 40 mg po ordered this afternoon, AM BMP updated by phone 07/26 daughter updated at bedside 07/27, 07/28 Admission and Anticipated Discharge Date Admission Date: July 26, 2023 Subjective L knee pain slowly improving, mobility improved - two x walk in HW yesterday, up to commode, moving bowels Has wheezing this AM, cough at night after lying down, no chest pain Physical Exam 2 Physical Exam: PHYSICAL EXAMINATION Last 24h vital signs reviewed, see documentation in flowsheet General: lying on bed awake and alert HEENT: Normocephalic, atraumatic, pupils round and equal, sclerae anicteric, no conjunctival injection, moist mucus membranes Lungs: Normal respiratory effort. Exp wheezing ant bilaterally Heart: Regular rate and rhythm, no murmurs. hard to see neck veins Abdomen: Soft, nontender, nondistended. Bowel sounds present. Extremities: Warm, dry, well-perfused. LLE expected postop swelling and mild distal edema, minimal RLE edema. Knee incision dressed cdi no warmth or erythema Neuro: Alert and oriented x 4, face symmetric, moves 4 extremities well Psych: Normal affect and behavior Results & Data Results & Data Vital Signs (Past 12 Hours) Vital Signs Temp Pulse Pulse Resp BP Pulse Ox O2 Del Method 08/01/23 12:04 36.6 C 73 19 171/74 H 97 Room Air 08/01/23 10:15 78 08/01/23 08:00 37.1 C 81 18 177/79 H 94 Room Air Laboratory Results 08/01/23 06:14 08/01/23 06:14 PG Care Time/CCT Total # of Minutes Spent Total Time Spent with Patient: Total time spent is greater than 50% in coordination of care (as documented) at patient's floor/unit and/or counseling patient: Coding Level of Care Code 48921 SUB INP/OBS CARE 2/35MIN Diagnoses Septic arthritis of knee, left M00.9 Bacteremia R78.81 Sepsis due to Enterococcus A41.81 Chronic anemia D64.9 Idiopathic polyneuropathy G60.9 Peripheral vascular disease I73.9 Chronic anticoagulation Z79.01 Alcohol use Z78.9 Tobacco use disorder F17.200 Anxiety and depression F41.9; F32.9 CAD (coronary artery disease) I25.10 Hx of atrial flutter Z86.79 Presence of neurostimulator Z96.82 Diabetes mellitus, type 2 E11.9 Sleep apnea G47.30 Hypomagnesemia E83.42 Hyponatremia E87.1 Chronic prescription opiate use Z79.891 Foot trauma S99.929A
[2023-08-01 23:08] LABS: BUN Creatinine Ratio 12.5 (10-20); Calcium 8.5 mg/dl (8.6-10.3); Creatinine Clr Calc Pharmacy 132.1 ml/min; Est GFR (African American) 113.5 ml/min; Est GFR (Non-African American) 97.9 ml/min; Magnesium 1.6 mg/dl (1.7-2.4); Potassium 3.4 mmol/L (3.5-5.1)
[2023-08-02] MEDS: MAGNESIUM SULFATE / D5W 1 GM/100 ML BAG IV SCH (00:23)
[2023-08-02] MEDS: POTASSIUM CHLORIDE CRTAB 20 MEQ TABCR PO STA ×2 (00:23→07:58)
[2023-08-02 07:25] LABS: Calcium 8.7 mg/dl (8.6-10.3); Creatinine Clr Calc Pharmacy 129.5 ml/min; Est GFR (African American) 112.8 ml/min; Est GFR (Non-African American) 97.3 ml/min; Potassium 3.9 mmol/L (3.5-5.1)
--- NOTE | 2023-08-02 11:58 | Cardiology Progress Note ---
Date of Service August 02, 2023 Assessment & Plan (1) Ventricular tachycardia (paroxysmal): (2) Hypertension: (3) Hx of atrial flutter: (4) Peripheral vascular disease: (5) CAD (coronary artery disease): (6) Painful total knee replacement, left: Plan Suspect electrolyte depletion resulted in electrical instability/recurrent but asymptomatic ventricular tachycardia. Prudent to remain on telemetry throughout today and perhaps overnight to ensure that correction of electrolytes results and resolution of ventricular dysrhythmia. If he were to have recurrent ventricular tachycardia despite normal electrolytes, further evaluation would be warranted since this is new (he had ventricular ectopy but had not had ventricular tachycardia prior to yesterday). Continue metoprolol, may consider increase if ventricular ectopy persists. Will resume following from cardiology standpoint, if no significant recurrence of ventricular dysrhythmia may be appropriate for discharge later today or tomorrow. Admission and Anticipated Discharge Date Admission Date: July 26, 2023 Subjective He did have some bronchospasm yesterday and wasn't felt to be volume overloaded, received IV Lasix and subsequently had some degree of hypokalemia/hypomagnesemia. Telemetry monitoring showed increased ventricular ectopy with short but generally nonsustained runs of ventricular tachycardia (longest 20-30 seconds), which were apparently asymptomatic. He denies any dyspnea, chest pain, or subjective palpitations. No lightheadedness, presyncope, or syncope. Physical Exam Physical Exam: No distress. Moderately hypertensive. Pulse 76 bpm and regular with ectopy. Respirations 18 unlabored. Skin: Few scattered ecchymoses, no generalized lesions. HEENT: unremarkable. Neck: JVP at the clavicle at 90 degrees, no carotid bruits. Lungs: Occasional expiratory wheeze noted. No accessory muscle use. Cardiac: regular rhythm with ectopy, normal S1-2, no murmur. Abdomen: benign. Extremities: mild pretibial edema, peripheral pulses intact. Neurologic: normal affect and conversation, nonfocal. Results & Data Vital Signs (Past 12 Hours) Vital Signs Temp Pulse Resp BP Pulse Ox O2 Del Method 08/02/23 07:18 98.1 F 76 19 160/70 H 94 Room Air 08/02/23 03:25 98.9 F 94 H 20 142/74 H 94 Room Air Laboratory Results Normal WBC, hemoglobin 7.6, platelet count 537,000. Electrolytes currently normal with BUN of 8 and creatinine 0.73. Magnesium 2.0. Potassium was 3.4 yesterday with magnesium 1.6. PG Care Time/CCT Total # of Minutes Spent Total Time Spent with Patient: Total time spent is greater than 50% in coordination of care (as documented) at patient's floor/unit and/or counseling patient: Coding Level of Care Code 83419 SUB INP/OBS CARE 2/35MIN Diagnoses Ventricular tachycardia (paroxysmal) I47.29 Primary hypertension I10 Hypertension type: primary hypertension Hx of atrial flutter Z86.79 Peripheral vascular disease I73.9 CAD (coronary artery disease) I25.10 Painful total knee replacement, left T84.84XA; Z96.652 (2) Hypertension Hypertension type: primary hypertension Qualified Code(s): I10 - Essential (primary) hypertension
[2023-08-02] MEDS: MAGNESIUM OXIDE 400 MG TAB PO SCH (12:09)
--- NOTE | 2023-08-02 12:44 | Hospitalist Progress Note ---
Date of Service August 02, 2023 Assessment & Plan (1) Septic arthritis of knee, left: Plan: 63 y/o with severe PAD, complex cardiac history, DM and other medical comorbidities as reported below admitted with sepsis due to enterococcus bacteremia and prosthetic joint infection. Hx TKA bilateral knees. Presented with malaise, fever, L knee pain warmth and swelling. Arthrocentesis in ED confirmed septic joint. Had I&D of L knee 07/[address] Woods blood cultures and operative culture with E. faecalis S to PCN, vancomycin follow up blood cultures 07/27 negative TTE this admission - no valvular vegetations although he has new onset mild- moderate and mild-moderate MR - NEW from his 02/2023 echo. Multiple vascular procedures - 05/2023 R SHOT TUBE MACHINE TENDER endarterectomy. Also Hx same procedure on L, both sides with bovine tissue patches. US R groin 07/27 without evidence of fluid collection. Vascular surgery consulted this admission. Consulted ID recommended daptomycin 10 mg/kg x 6 weeks for prosthetic joint infection followed by oral antibiotic suppression, ID follow up -CK normal 07/31 -PICC placed 07/31 -weekly monitoring labs -discussed with care coordination - home infusion - not discharging today but probable for tomorrow (2) Ventricular tachycardia (paroxysmal): Plan: Around 3 am 07/31 had multiple episodes of NSVT and one episode of sustained VT 120 beats, was asymptomatic. No history of VT -no history of this, likely related to low electrolytes since had dose of IV lasix earlier in the day (with potassium replacement) but K was 3.4 and mag 1.6 when checked overnight -mag 2.0 and K 3.9 this AM, ordered oral K/mag supplements -K/mag replaced IV and no arrhythmia since, reviewed tele monitors -is on metoprolol -discussed with Dr. Guido, seems electrolyte related but will monitor overnight to make sure not recurring post electrolyte correction (3) Bacteremia: Plan: see above (4) Sepsis due to Enterococcus: Plan: as above (5) Chronic anemia: Plan: baseline Hb about 8-10 Hb on 07/27/23 - 7.1 s/p 2 units PRBCs with nice response to such. Fe studies in 05/2023 c/w Fe deficiency (despite the macrocytosis, which is likely from chronic etoh abuse). B12/folate levels in the recent past wnl. TSH wnl. Component of acute blood loss anemia related to surgery exacerbated by anticoagulation, 300 mL output from hemovac drain 07/27 Hct stable 08/01 -iron replacement po at discharge (6) Idiopathic polyneuropathy: Plan: cont gabapentin - reduce dose if confusion recurs, this is his usual dose (7) Peripheral vascular disease: Plan: severe multiple procedures of his vascular system in the past including his 05/28/23 procedure on his right SHOT TUBE MACHINE TENDER (angioplasty with bovine patch) by Dr Garcia Also has carotid and vertebral stenoses cont plavix he is statin intolerant by history see discussion above re: right groin operative site follow up with Dr. Garcia in office (8) Chronic anticoagulation: Plan: resumed apixaban 3/6 AM (9) Alcohol use: Plan: no alcohol withdrawal occurred this admission thiamine + folic acid supplemented (10) Tobacco use disorder: Plan: counselor [employer] to quit nicoderm patch 14mg/day (11) Anxiety and depression: Plan: cont cymbalta, etc (12) CAD (coronary artery disease): Plan: anterolateral MA 2007 2nd to occluded LAD which was stented nonocclusive disease elsewhere by report again statin intolerant cont BB cont plavix resumed GOOD color maker consulted this admission (13) Hx of atrial flutter: Plan: s/p ablation procedure 2022 cont apixaban, metoprolol (14) Presence of neurostimulator: (15) Diabetes mellitus, type 2: Plan: a1c 7% hold PO meds novolog SSI -BG at goal (16) Sleep apnea: Plan: noncompliant with CPAP device for 1-2 years but started reusing it 2 weeks ago at home to bring home unit in (17) Hypomagnesemia: Plan: 2nd to etoh abuse s/p replacement with normalization (18) Hyponatremia: Plan: somewhat chronic (but intermittent) based on previous labs normal 08/01 at 140 (19) Chronic prescription opiate use: Plan: tramadol 100mg BID - for chronic back pain - reviewed PDMP - held currently (20) Foot trauma: Plan: left foot checked x-rays - no fractures Plan Extensive PAD, CTA neck on admission - bilateral ICA and vertebral stenoses - follow up with Dr. Holloway Pulmonary nodule 4mm RUL - chest CT recommended in 6 mo for follow up updated by phone 07/26 daughter updated at bedside 07/27, 07/28 Admission and Anticipated Discharge Date Admission Date: July 26, 2023 Subjective Feels good, no shortness of breath or wheezing, continues with nocturnal cough Had episodes of NSVT last night around 3am and one sustained episode about 1.5 min No chest pain palpitations or dyspnea associated, was asymptomatic Mag/K mildly low at that time Physical Exam 2 Physical Exam: PHYSICAL EXAMINATION Last 24h vital signs reviewed, see documentation in flowsheet General: lying on bed awake and alert HEENT: Normocephalic, atraumatic, pupils round and equal, sclerae anicteric, no conjunctival injection, moist mucus membranes Lungs: Normal respiratory effort. CTAB ant and post, except very slight exp wheeze anteriorly - significantly improved Heart: Regular rate and rhythm, no murmurs. hard to see neck veins Abdomen: Soft, nontender, nondistended. Bowel sounds present. Extremities: Warm, dry, well-perfused. LLE expected postop swelling and mild distal edema improved, trace RLE edema. Knee incision dressed cdi no warmth or erythema Neuro: Alert and oriented x 4, face symmetric, moves 4 extremities well Psych: Normal affect and behavior Results & Data Results & Data Vital Signs (Past 12 Hours) Vital Signs Temp Pulse Resp BP Pulse Ox O2 Del Method 08/02/23 10:52 36.6 C 72 20 158/83 H 95 Room Air 08/02/23 07:18 36.7 C 76 19 160/70 H 94 Room Air 08/02/23 03:25 37.2 C 94 H 20 142/74 H 94 Room Air Laboratory Results 08/01/23 06:14 08/02/23 06:17 PG Care Time/CCT Total # of Minutes Spent Total Time Spent with Patient: Total time spent is greater than 50% in coordination of care (as documented) at patient's floor/unit and/or counseling patient: Coding Level of Care Code 85799 SUB INP/OBS CARE 235MIN Diagnoses Septic arthritis of knee, left M00.9 Ventricular tachycardia (paroxysmal) I47.29 Bacteremia R78.81 Sepsis due to Enterococcus A41.81 Chronic anemia D64.9 Idiopathic polyneuropathy G60.9 Peripheral vascular disease I73.9 Chronic anticoagulation Z79.01 Alcohol use Z78.9 Tobacco use disorder F17.200 Anxiety and depression F41.9; F32.9 CAD (coronary artery disease) I25.10 Hx of atrial flutter Z86.79 Presence of neurostimulator Z96.82 Diabetes mellitus, type 2 E11.9 Sleep apnea G47.30 Hypomagnesemia E83.42 Hyponatremia E87.1 Chronic prescription opiate use Z79.891 Foot trauma S99.581G
--- NOTE | 2023-08-03 12:17 | Cardiology Progress Note ---
Date of Service August 03, 2023 Assessment & Plan (1) Ventricular tachycardia (paroxysmal): (2) Hypertension: (3) Hx of atrial flutter: (4) Peripheral vascular disease: (5) CAD (coronary artery disease): (6) Painful total knee replacement, left: Plan Doing well, suspect his transient ventricular dysrhythmias were due to electrolyte depletion. Hemodynamics favorable, no need to adjust vasoactive regimen (metoprolol/lisinopril). Okay for discharge from a cardiac standpoint. Admission and Anticipated Discharge Date Admission Date: July 26, 2023 Subjective Uneventful night, no further ventricular dysrhythmias. He feels well and is anxious to return home. No chest pain, dyspnea, palpitations, presyncope, or syncope. Telemetry showed sinus rhythm in the 70 bpm range with PACs. Physical Exam Physical Exam: No distress. BP normotensive. Pulse 80 bpm and regular with ectopy. Respirations 18 unlabored. Skin: Few scattered ecchymoses, no generalized lesions. HEENT: unremarkable. Neck: JVP at the clavicle at 90 degrees, no carotid bruits. Lungs: Occasional expiratory wheeze noted. No accessory muscle use. Cardiac: regular rhythm with ectopy, normal S1-2, no murmur. Abdomen: benign. Extremities: mild pretibial edema, peripheral pulses intact. Neurologic: normal affect and conversation, nonfocal. Results & Data Vital Signs (Past 12 Hours) Vital Signs Temp Pulse Pulse Resp BP Pulse Ox O2 Del Method 08/03/23 11:51 98.4 F 81 18 137/80 95 Room Air 08/03/23 07:57 98.4 F 80 19 169/80 H 94 Room Air 08/03/23 07:53 78 08/03/23 03:26 97.7 F 75 18 104/61 96 Room Air PG Care Time/CCT Total # of Minutes Spent Total Time Spent with Patient: Total time spent is greater than 50% in coordination of care (as documented) at patient's floor/unit and/or counseling patient: Coding Level of Care Code 67808 SUB INP/OBS CARE 1/25MIN Diagnoses Ventricular tachycardia (paroxysmal) I47.29 Primary hypertension I10 Hypertension type: primary hypertension Hx of atrial flutter Z86.79 Peripheral vascular disease I73.9 CAD (coronary artery disease) I25.10 Painful total knee replacement, left T84.84XA; Z96.652 (2) Hypertension Hypertension type: primary hypertension Qualified Code(s): I10 - Essential (primary) hypertension
--- NOTE | 2023-08-03 16:04 | Discharge Summary ---
Date of Service August 03, 2023 Admission HPI Per Admitting Provider The patient is a 63-year-old male with a past medical history including idiopathic polyneuropathy, right ICA stenosis, peripheral vascular disease, atrial fibrillation with RVR, hyponatremia, chronic anticoagulation with apixaban, status post right CARPET RENOVATOR endarterectomy on 05-28-2023, status post ablation for atrial flutter on 04-09-2023, neurogenic claudication, osteoarthritis, bare- metal stent and anterior descending branch of left coronary artery, mechanical loosening of left TKA and right surgical repair. The patient presents to the emergency department due to concerns regarding worsening left knee swelling after a fall a few days ago, and today developed a temperature and became disoriented and confused. Principal Diagnosis Sepsis due to enterococcus bacteremia and left sided septic TKA, prosthetic joint infection Discharge Exam PHYSICAL EXAMINATION Last 24h vital signs reviewed, see documentation in flowsheet General: lying on bed awake and alert HEENT: Normocephalic, atraumatic, pupils round and equal, sclerae anicteric, no conjunctival injection, moist mucus membranes Lungs: Normal respiratory effort. CTAB no further wheezing Heart: Regular rate and rhythm, no murmurs. hard to see neck veins Abdomen: Soft, nontender, nondistended. Bowel sounds present. Extremities: Warm, dry, well-perfused. LLE expected postop swelling and mild distal edema improved, trace RLE edema. Knee incision dressed cdi no warmth or erythema Neuro: Alert and oriented x 4, face symmetric, moves 4 extremities well Psych: Normal affect and behavior Discharge Data Allergies Allergy/AdvReac Type Severity Reaction Status Date / Time latex Allergy Unknown Rash Verified 07/18/23 11:58 Penicillins Allergy Unknown Rash Verified 07/18/23 11:58 adhesive AdvReac Unknown Rash Verified 07/18/23 11:58 dronedarone AdvReac Unknown Fatigued Verified 07/18/23 11:58 gemfibrozil AdvReac Unknown BODY ACHES Verified 07/18/23 11:58 NSAIDS (Non-Steroidal AdvReac Unknown TOLD NOT Verified 07/18/23 11:58 Anti-Inflamma TO TAKE - HX STOMACH ULCER Ibhktsa-RZU-AvH Reductase AdvReac Unknown body aches Verified 07/18/23 11:58 Inhibitor [Xargfxp-Xty-Edq Reductase Inhibitor] Consultations 07/26/23 17:48 ED Decision to Admit Stat 07/27/23 05:25 Consult Vascular Surgery Routine 07/27/23 05:28 Consult Cardiology Routine 07/27/23 07:41 Consult Anesthesiology Routine 07/29/23 12:05 Consult Infectious Diseases Routine Procedures Performed Operation Date: 07/28/23 07:30 Actual Procedures p DAIR procedure - Stu Eduardo MD Ordered Studies 07/26/23 15:00 CT head/brain wo con Stat 07/26/23 15:40 CT angio neck with con Stat 07/28/23 08:23 US soft tissue groin Routine 08/01/23 06:14 08/02/23 06:17 Hospital Course (1) Septic arthritis of knee, left: 63 y/o with severe PAD, complex cardiac history, DM and other medical comorbidities as reported below admitted with sepsis due to enterococcus bacteremia and prosthetic joint infection. Hx TKA bilateral knees. Presented with malaise, fever, L knee pain warmth and swelling. Arthrocentesis in ED confirmed septic joint. Had I&D of L knee 07/[address] Woods blood cultures and operative culture with E. faecalis S to PCN, vancomycin follow up blood cultures 07/27 negative TTE this admission - no valvular vegetations although he has new onset mild- moderate and mild-moderate MR - NEW from his 02/2023 echo. Multiple vascular procedures - 05/2023 R CARPET RENOVATOR endarterectomy. Also Hx same procedure on L, both sides with bovine tissue patches. US R groin 07/27 without evidence of fluid collection. Vascular surgery consulted this admission. Consulted ID recommended daptomycin 10 mg/kg x 6 weeks for prosthetic joint infection followed by oral antibiotic suppression, ID follow up -CK normal 07/31 -PICC placed 07/31 -weekly monitoring labs CBC CMP ESR CRP CK -home infusion set up -follow up with ID and Dr. Woods (2) Ventricular tachycardia (paroxysmal): Around 3 am 07/31 had multiple episodes of NSVT and one episode of sustained VT 120 beats, was asymptomatic. No history of VT -no history of this, likely related to low electrolytes since had dose of IV lasix earlier in the day (with potassium replacement) but K was 3.4 and mag 1.6 when checked overnight -K/mag replaced IV and no arrhythmia since, reviewed tele monitors 08/02 -is on metoprolol -consulted Dr. Guido, electrolyte related and not recurring post electrolyte correction, continue metoprolol and lisinopril -continue home potassium and magnesium supplement (3) Bacteremia: see above (4) Sepsis due to Enterococcus: as above (5) Chronic anemia: baseline Hb about 8-10 Hb on 07/27/23 - 7.1 s/p 2 units PRBCs with nice response to such. Fe studies in 05/2023 c/w Fe deficiency (despite the macrocytosis, which is likely from chronic etoh abuse). B12/folate levels in the recent past wnl. TSH wnl. Component of acute blood loss anemia related to surgery exacerbated by anticoagulation, 300 mL output from hemovac drain 07/27 Hct stable 08/01 -iron replacement po at discharge (6) Idiopathic polyneuropathy: cont gabapentin (7) Peripheral vascular disease: severe multiple procedures of his vascular system in the past including his 05/28/23 procedure on his right CARPET RENOVATOR (angioplasty with bovine patch) by Dr Garcia Also has carotid and vertebral stenoses cont plavix he is statin intolerant by history see discussion above re: right groin operative site follow up with Dr. 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 (13) Hx of atrial flutter: s/p ablation procedure 2022 cont apixaban, metoprolol (14) Presence of neurostimulator: (15) Diabetes mellitus, type 2: A1c 7 resumed home regimen (16) Sleep apnea: noncompliant with CPAP device for 1-2 years but started reusing it 2 weeks ago at home (17) Hypomagnesemia: replaced continue home mag supplement (18) Hyponatremia: somewhat chronic (but intermittent) based on previous labs normal 08/01 at 140 (19) Chronic prescription opiate use: tramadol 100mg BID - for chronic back pain - reviewed PDMP (20) Foot trauma: left foot checked x-rays - no fractures Plan Extensive PAD, CTA neck on admission - bilateral ICA and vertebral stenoses - follow up with Dr. Garcia Pulmonary nodule 4mm RUL - chest CT recommended in 6 mo for follow up -sent message to Dr. Lam about this, has appt 12/2023 Upcoming shoulder procedure should be deferred until after infection cleared -sent message to Dr. Stanley Total Time Total Time Spent Total Time Spent (In Minutes): I personally spent: 40 minutes today on clinical care activities including: reviewing chart notes and vital signs, reviewing tele reviewing labs discussion with care partner examining and counseling the patient writing discharge orders and instructions documentation Discharge Plan Discharge Items Patient Disposition: Home - Home Health Services Reason For Visit: SEPTIC KNEE Discharge Diagnosis: Septic left TKA Activity: Per Instructions section Weightbearing: Full weightbearing Non-emergency contact: Surgeon Call non-emergency contact if: you have any medication questions, your pain is not controlled, your temperature is above 101.5, your wound has increased redness and your wound has increased drainage Follow-up/Referrals: Nitish Lam MD [Primary Care Provider] - 08/13/23 2:00 pm (with CRNP. Jazmin) Carter Woods MD [Surgeon] - ( follow-up with Dr. Woods or his PA in 2 weeks from the day of surgery for your first postoperative visit) Tyrese Garcia MD [Physician] - Diet: Carb Consistent or DM2 Addtl Attending Provider Instructions: Right upper lobe 4 mm pulmonary nodule - this was an incidental finding on imaging - recommend chest CT in 6 months to follow up and make sure unchanged/resolved -follow up with Dr. Lam for this Take oral iron supplement for 4-6 weeks and follow up with Dr. Lam for anemia Continue taking your usual magnesium and potassium supplements. If you have constipation you can use miralax and/or senna as directed - these are available over the counter You will need follow up with an Infectious Disease specialist - we are working on a referral for this You will need to delay your shoulder procedure - the knee infection will have to be resolved first I strongly advise you stop smoking - this is the best thing you can do for your health to prevent worsening heart and vascular disease -nicotine replacement is available over the counter as patches, gum, or lozenges - use as directed -talk to your doctor if you wish to consider other medications to help quit smoking like bupropion or varenicline Do not drive or use alcohol while taking opioid pain medications like hydromorphone, this combination can be very hazardous Addtl Lump Receiver Provider Instructions: You will be receiving IV antibiotics for 6 weeks. Home health services will be providing help with your PICC line etc as well as the possibility of having PT. Home Health will also blood for laboratory values we will need to be watching weekly. These lab values will be sent to Dr. Woods and possibly to Infectious Disease team or to Dr. Lam. Infectious Disease Recommendations -Patient will need 6 weeks of IV followed by oral suppressive therapy -Given he had a penicillin allergy will avoid ampicillin, start daptomycin 10mg/kg IV daily anticipate 6 weeks therapy from surgery (07/27-09/15/23) -Dc vancomycin -Check baseline CPK, patient not on statin -Outpatient Labs will need to include CBC with diff, CMP, ESR, CRP, CPK -Once he is done with IV, recommend change to oral suppressive abx, ideally this will be doxycycline 100mg po BID x 6 months..if not sensitive then consider levofloxacin -Can place PICC line -Microbiology has updated me that they can doxycycline sensi so this can be a potential option for oral suppressive therapy -Strongly recommend he sees ID as outpatient DR. FRAZIER POST-OP INSTRUCTIONS FOR TOTAL KNEE ARTHROPLASTY PLEASE REVIEW PRIOR TO SURGERY Day of Surgery You will be admitted and meet the nursing and anesthesia team. Dr. Woods will see you and sign your operative side. Anesthesia will place your spinal anesthetic in the pre-op area Your surgery will be performed and last approximately 1 2 hours. Upon waking, you will notice a dressing and ice pack on your knee. If you purchased the Breg Cold Compression unit, this will be applied to your knee. You will remain in the recovery room for 1 2 hours, then be transferred to your room in the ambulatory surgical area if you are to go home the same day of your surgery or on the orthopedic floor if you will be staying overnight. Most of Dr. Frazier total knee patients go home the same day as surgery. This depends on how well you feel. Patients generally seem to feel better in their own home environment, and the risk of exposure to bad bugs is much lower. (Your post-operative medications will be sent to your pharmacy approximately 1-2 days prior to your procedure) Day 1 post-op (if you have an overnight stay in the hospital) You will have bloodwork drawn in the morning Physical therapy will evaluate you in the morning. You will start getting out of bed and ambulating with a walker. They will instruct you on knee motion exercises. Use your cold packs or your cold compression unit as instructed. This will decrease swelling and minimize pain. administrative services coordinator will discuss your discharge plan. Discharge will generally be around 11am Day 1 post-op (all patients) Continue taking your apixaban 5 mg p.o. twice daily. You will most likely have a drain and VIOLETTA (superficial wound VAC) dressing post-operatively covered by an good wrap dressing. (home nurse will remove good wrap/drain) This will keep your incision dry as well as aid in early healing. The batteries will wear out and the VAC will lose suction around day 6 7 post-op. At that time, you may turn off the device and disconnect it from your dressing. You may remove your dressing 10 days after surgery if it becomes bothersome and irritating to your skin. If the dressing appears to be saturated, please call our office. Day 2-14 post-op You will have a home nurse visit to assess your status and remove your good wrap/drain on post-op day 2. You are permitted to shower immediately with the VAC. Do not soak the dressing let the shower flow on your opposite side, and pat dry the plastic. Once the dressing has been removed, you may shower normally with the incision exposed. Do not rub the area simply let soapy water run over the incision and lightly pat dry. Therapy will begin on post-op day 3. Your therapy prescription will be sent to your home therapy company/therapist You should continue doing your home exercises Week 2 post-op and forward You will have your first post-op appointment 2 weeks after surgery which should have been scheduled for you by our office. This appointment will be to check your incision, progression of therapy and pain control. You will continue to use a cane or a walker until you feel safe enough to stop using it. You will have a 6-week post-op appointment which should have been scheduled for you by our office. X-rays will be taken to evaluate the prosthesis. You will continue to advance range of motion. By 3 to 4 months after surgery, you should have almost full range of motion and may resume most activities. You may have some pain around the knee with certain activities this is completely normal. You will be scheduled for a 1-year post-op appointment to assess your outcome (sooner if Dr. Woods feels it is necessary). Pain: The immediate post-op period after knee replacement surgery can be painful. You should take your pain medicine as you need it, especially prior to physical therapy and bedtime. Your pain WILL get better, and you may transition to a milder pain medicine (with less side effects, such as Tylenol) as soon as possible. It is common to have pain at night that interferes with sleep this can last for several months. Pain medicines can cause nausea and constipation do not take more than you need. You may be prescribed one or more of the following medications: 1. Celebrex this controls inflammation and makes pain medications more effective it will be taken once or twice a day 2. Tylenol a pain medicine that can help to decrease your pain you should take 1000mg three times a day 3. Tramadol a pain medicine that can be taken every 4-6 hours (instead of Oxycodone) as needed to control your pain 4. Oxycodone a VERY strong pain medicine that can be taken every 4- 6 hours (instead of Tramadol) as needed to control your pain. This medication has the most side effects. 5. Apixaban 5mg twice daily blood thinning medication to help minimize the risk of development of blood clots unfortunate side effects of pain medicine include nausea and constipation if you experience these issues or have any questions about your post-op medications, call [facility] at for assistance/advice on how to manage these issues Physical therapy is a VERY important part of knee replacement surgery. The office will arrange for a therapist to come to your home to instruct you on exercises. It is very important to practice on your own (or with the assistance of a family member). While in the hospital, you will be shown a series of home exercises you should perform these exercises 3 4 times daily in addition to physical therapy. After the completion of home therapy (approx. 2 weeks), most therapy exercises can be done on your own. You should get up to walk several times a day. Try not to stand longer than 1 hour at a time to minimize swelling. If you develop swelling, you need to elevate your legs/feet at or above the level of your heart. You may progress from walker to cane to ambulating independently as you feel comfortable. Unless it is an emergency, YOU ARE NOT PERMITTED TO HAVE ANY DENTAL CLEANING/WORK UNTIL 3 MONTHS AFTER SURGERY. You will be required to take an antibiotic prior to any dental cleaning or dental work in order to prevent your joint prothesis from getting infected. This medication is a one time per visit dose to be taken one hour prior to appointment. You may call our office for this prescription or your dentist may be willing to prescribe the medication. Remember to contact [facility] at if you develop any signs of infection which include increased swelling, pain, redness, drainage from incision, warmth, fever, chills or severe pain unrelieved by pain medication. If you develop any chest pain or shortness of breath, you should proceed immediately to the closest Emergency Room. It is normal to run a low-grade fever after surgery. If your fever is consistent at 101.0 or higher, you will need to contact the office. Pending Studies at Discharge: No Stand-Alone Forms: My [facility], Pain - Opioid Pain Management, Smoking Cessation Medications and DC Order Prescriptions: New daptomycin 500 mg recon soln 925 mg IV DAILY 42 Days Qty: 10 0RF Rx Instructions: administer over 30 mins hydromorphone 4 mg Tablet 4 mg PO Q4H PRN (Reason: pain) Qty: 14 0RF Continued lisinopril 40 mg tablet 40 mg PO QAM Qty: 90 3RF glimepiride 1 mg tablet 1 mg PO QAM Qty: 90 3RF tramadol 50 mg tablet 100 mg PO BID Qty: 120 0RF gabapentin 400 mg capsule 800 mg PO TID Qty: 180 5RF Eliquis 5 mg tablet 5 mg PO BID Qty: 180 3RF pantoprazole 40 mg tablet,delayed release (DR/EC) 40 mg PO QAM Qty: 90 3RF duloxetine [Cymbalta] 60 mg capsule,delayed release(DR/EC) 60 mg PO QAM Qty: 90 3RF Repatha SureClick 140 mg/mL pen injector 140 mg subcut .every 2 weeks Qty: 6 3RF Patient Comments: due 07/18/23 metformin 500 mg tablet extended release 24 hr 2,000 mg PO QAM Qty: 360 3RF metoprolol tartrate 100 mg tablet 50 mg PO BID cholecalciferol (vitamin D3) 125 mcg (5,000 unit) capsule 125 mcg PO QAM acetaminophen 650 mg Tablet Extended Release 650 mg PO UD PRN (Reason: ARTHRITIS PAIN) Patient Comments: takes at least 2 tablets every day. cyanocobalamin (vitamin B-12) [Vitamin B-12] 1,000 mcg Tablet 1,000 mcg PO QAM folic acid 400 mcg Tablet 0.4 mg PO QAM clopidogrel [Plavix] 75 mg tablet 75 mg PO QAM doxepin 10 mg capsule 10 mg PO HS tamsulosin 0.4 mg capsule 0.4 mg PO HS magnesium oxide 400 mg magnesium capsule 400 mg PO QAM Discharge Orders: Discharge Order (Routine); Ordered 08/03/23 Ordered By: Tricia Bolivar/Other Patient Handouts: COPD and Heart Disease, Diabetes and Heart Disease, Caring for Your PICC Dc, PICC Line Flushing Home Ch, ED PICC Line Care Admission Data Admit Date/Time: 07/26/23 18:08 Attending Provider: Tricia De La Cruz Admit Provider: Orville Conklin Primary Care Provider: Nitish Lam Other Providers: Orville Conklin; Tyrese Garcia; Chi Guido; Yoan Cervantes; Asia Walsh; Kim Villasenor; Deborah Pavon; Jesusita Grijalva; Torri Flores; Sriram Sanches; Tricia Meredith; Elda Zhou; [facility] Other Interventions: Discharge Summary Assessment (RN) Last Done: 08/03/23 12:58 Coding Level of Care Code 36009 INP/OBS DISCH >30 MIN Diagnoses Septic arthritis of knee, left M00.9 Ventricular tachycardia (paroxysmal) I47.29 Bacteremia R78.81 Sepsis due to Enterococcus A41.81 Chronic anemia D64.9 Idiopathic polyneuropathy G60.9 Peripheral vascular disease I73.9 Chronic anticoagulation Z79.01 Alcohol use Z78.9 Tobacco use disorder F17.200 Anxiety and depression F41.9; F32.9 CAD (coronary artery disease) I25.10 Hx of atrial flutter Z86.79 Presence of neurostimulator Z96.82 Diabetes mellitus, type 2 E11.9 Sleep apnea G47.30 Hypomagnesemia E83.42 Hyponatremia E87.1 Chronic prescription opiate use Z79.891 Foot trauma S99.076B
== END 2023-08-03 13:43 | disposition home health service (06) | DRG 463 ==
LOC: ED 14:12 → SUATTDRO 18:08 → 2S 18:08

== ENCOUNTER 2023-09-16 07:28 | Observation (INO) ==
--- NOTE | 2023-09-16 07:47 | Emergency Department Note ---
History of Present Illness General Chief complaint: Knee Injury/Pain Time Seen by Provider: 09/16/23 07:38 History of Present Illness Maximum Pain Intensity: 8 This is a 63-year-old male that presents to the emergency department via private vehicle with complaints of "left knee pain". Patient notes ongoing left knee issues and is status post surgery on the left knee for septic arthritis that was performed here on 07/29/2023. Patient currently on oral doxycycline as suppressive therapy following the IV antibiotics. Patient notes that last evening he began with return of similar symptoms that prompted his first ED visit for the left knee in early July,. He notes that he began with pain and swelling to the left knee. He has tried Tylenol and ice today. Patient notes significant difficulty in weightbearing to the left knee which is new comparative to the past few weeks. Patient denies any fever today. No chest pain or shortness of breath. Currently anticoagulated on Eliquis. Per review of the EMR blood culture as well as knee aspirate from 07/26/23 grew out Enterococcus facialis. ED visit from 07/26/2023 reviewed and noted that the patient was seen here for left knee pain, fever and delirium and at that time was found to have left knee septic arthritis and was admitted to the hospital. Operative note from 07/28/2023 revealed DAIR procedure on the left knee. Patient was then discharged on 08/03/2023. At that time he was discharged home on daptomycin via PICC line x 6 weeks. Discharge instructions provided that time were reviewed as available in the EMR and they had noted recommendation of oral suppressive antibiotics following the IV antibiotics. He was also recommended to see infectious disease as an outpatient. There was a follow-up orthopedic visit on 08/13/2023. At that point he was just over 2-week postop. From the irrigation and debridement and polyethylene bearing change of the left infected TKA. Home Medications Medication Instructions Recorded Confirmed Type acetaminophen 650 mg 650 mg PO Q8H PRN ARTHRITIS PAIN 12/06/20 09/16/23 History tablet,extended release folic acid 400 mcg tablet 0.4 mg PO QAM 04/23/22 09/16/23 History cyanocobalamin (vitamin B-12) 1,000 mcg PO QAM 08/26/22 09/16/23 History 1,000 mcg tablet (Vitamin B-12) glimepiride 1 mg tablet 1 mg PO QAM #90 tabs 02/03/23 09/16/23 Rx lisinopril 40 mg tablet 40 mg PO QAM #90 tabs 02/03/23 09/16/23 Rx gabapentin 400 mg capsule 800 mg (2 x 400 mg) PO TID #180 06/25/23 09/16/23 Rx caps apixaban 5 mg tablet (Eliquis) 5 mg PO BID #180 tabs 06/30/23 09/16/23 Rx duloxetine 60 mg capsule,delayed 60 mg PO QAM #90 caps 07/02/23 09/16/23 Rx release (Cymbalta) pantoprazole 40 mg tablet,delayed 40 mg PO QAM #90 tabs 07/02/23 09/16/23 Rx release clopidogrel 75 mg tablet (Plavix) 75 mg PO QAM 07/18/23 09/16/23 History magnesium oxide 400 mg PO QAM 07/18/23 09/16/23 History tamsulosin 0.4 mg capsule 0.4 mg PO HS 07/18/23 09/16/23 History metformin 500 mg tablet,extended 2,000 mg (4 x 500 mg) PO QAM #360 07/28/23 09/16/23 Rx release 24 hr tabs tramadol 50 mg tablet 100 mg (2 x 50 mg) PO BID #120 tabs 08/13/23 09/16/23 Rx doxepin 10 mg capsule 10 mg PO HS 09/16/23 09/16/23 History doxycycline hyclate 100 mg tablet 0 mg PO DAILY 09/16/23 09/16/23 History evolocumab 140 mg/mL subcutaneous 140 mg subcut UD 09/16/23 09/16/23 History pen injector (Sally Villavicencio) metoprolol tartrate 50 mg tablet 50 mg PO BID 09/16/23 09/16/23 History Allergies Allergy/AdvReac Type Severity Reaction Status Date / Time latex Allergy Unknown Rash Verified 09/16/23 10:18 Penicillins Allergy Unknown Rash Verified 09/16/23 10:18 adhesive AdvReac Unknown Rash Verified 09/16/23 10:18 dronedarone AdvReac Unknown Fatigued Verified 09/16/23 10:18 gemfibrozil AdvReac Unknown BODY ACHES Verified 09/16/23 10:18 NSAIDS (Non-Steroidal AdvReac Unknown TOLD NOT Verified 09/16/23 10:18 Anti-Inflamma TO TAKE - HX STOMACH ULCER Ihojqax-BJK-UoT Reductase AdvReac Unknown body aches Verified 09/16/23 10:18 Inhibitor [Hcezpnc-Fkk-Yty Reductase Inhibitor] Past Med/Surg History Medical History Pulmonary nodule Hx of atrial [place] [facility] [place] Presence of neurostimulator Diabetic neuropathy History of cardioversion 01/2021, [facility]; F/U [facility] NGUYEN Hx of transesophageal echocardiography (GLADYS) for monitoring 01/2021, [facility] Chronic anemia Neuropathy Peripheral arterial disease Severe occlusive disease S/p L common femoral endarterectomy with bovine patch and lithotripsy of SFA and Popliteal arteries , status post bilateral common iliac artery HOSE MENDER and stents. History of chronic back pain Neurogenic claudication due to lumbar stenosis History of COVID-19 03/18/2022>resolved 06/28/23 + home test - congestion. Tx with pill. Resolved. No current s/s. History of anxiety Paroxysmal atrial flutter 01/2021- s/p cardoversion- with excessive alcohol intake- felt to be contributing component. No AC. No recurrence per PCP records 07/29/22- - Recurrence in preop area prior to surgery - sent from ACU to ED- admitted to [facility] 07/29/22-07/30/22 Alcohol abuse Pt admits to >4 beers daily Bilateral carotid artery stenosis Per 11/2021 Carotid Doppler: 50-69% stenosis of right ICA, less than 50% stenosis of left ICA, greater than 50% stenosis of right ECA Antegrade flow in both vertebral arteries CAD in [place] artery s/p LAD stent x2 () History of gastric ulcer No recent issues Degenerative disc disease GERD (gastroesophageal reflux disease) Well controlled and stable Diabetes mellitus, type 2 NIDDM Hypertension Hyperlipidemia Sleep apnea "Mild to moderate"-cpap has not been using for sometimes/recently been trying to get back to using. Has trouble tolerating mask. Myocardial infarction Anterolateral [place]- 2008, [place], had cardiac cath; f/u asa [facility] Surgical History Presence of neurostimulator 2022 History of cardiac radiofrequency [place] [facility] [place] S/P insertion of iliac artery stent Dec 2022? about 6 mon ago/ Dr. Garcia/2 stents. History of endarterectomy Left Femoral Endarterectomy with Bovine Patch 05/08/2022 & right side done 05/28/2023 Hx of cataract extraction rt/lt. History of anesthesia reaction WITH BACK SURGERY 2004 - DISORIENTED, PULLED CATHETER OUT ([facility]) Fusion of spine CERVICAL, "HAVE 80% OF MOTION" History of lumbar surgery X 3 - 2004, 2006, 2019 History of total knee replacement RT/LEFT (LEFT REVISION) Hx of transurethral resection of prostate History of esophagogastroduodenoscopy (EGD) History of colonoscopy History of nasal septoplasty History of heart artery stent 2006 or 2007, x2 stent, [place]; f/u dr gutierrez, asa Family History Mother Family history of diabetes mellitus Father Family history of diabetes mellitus Other No family history of adverse response to anesthesia Denies family history of Ovarian cancer Prostate cancer Myocardial infarction Breast cancer Colorectal cancer Social History Smoking Status: Current every day smoker Tobacco Type: Cigarettes Age Started Using Tobacco: 18; Cigarettes Per Day: 10 cigs per day/advised npo; Second Hand Exposure: No; Do You Dip or Chew Tobacco: No; Hx Alcohol Use: Yes Alcohol type: beer Alcohol type Comment: 6-8 beers Hx Substance Use: No Preferred Language: Mexican Communication Ability: Effective Visual Impairment: No Limitations Cafe Server Required: No Beliefs That Will Affect Care: None marital status: Current Living Situation: Spouse Current Living Situation Comment: Lives at home with current occupational status: retired How many Children do You have: 4 Feels Safe at Home: Yes Childhood Exposure to Second-Hand Smoke: Yes Diet: regular caffeine: Yes Dental Care, Regularly: Yes Physical Activity Frequency: Does not Exercise Seatbelt Use: always Sunscreen Use: No Assistive Devices: Cane, CPAP, Walker and Other Review of Systems A total of 10 systems reviewed and were otherwise negative Physical Exam Vital Signs Vital Signs - 24 hr 09/16/23 07:30 09/16/23 08:34 09/16/23 09:06 Temperature 36.7 C Temperature Source Temporal Artery Scan Pulse Rate 87 73 Pulse Rate [Apical] 77 Respiratory Rate 18 19 18 Respiratory Effort / Characteristics Non-Labored Respiratory Depth Normal Respiratory Pattern Regular Blood Pressure 146/77 H Blood Pressure [Right Arm] 131/105 H Blood Pressure Mean 100 Blood Pressure Mean [Right Arm] 113 Pulse Oximetry 97 96 96 Oxygen Delivery Method Room Air Room Air Room Air Sepsis Recent Fever Within 48 Hours No Sepsis New/Unexplained Change in Mental Status No Sepsis Action Taken by Nursing No Action Required 09/16/23 10:05 Temperature Temperature Source Pulse Rate Pulse Rate [Apical] 73 Respiratory Rate 18 Respiratory Effort / Characteristics Non-Labored Respiratory Depth Normal Respiratory Pattern Regular Blood Pressure Blood Pressure [Right Arm] 188/96 H Blood Pressure Mean Blood Pressure Mean [Right Arm] 126 Pulse Oximetry 95 Oxygen Delivery Method Room Air Sepsis Recent Fever Within 48 Hours Sepsis New/Unexplained Change in Mental Status Sepsis Action Taken by Nursing VITAL SIGNS - Vital signs and nursing notes were reviewed. Stable and afebrile. GENERAL - 63-year-old male appearing his stated age who is in no acute distress. Communicates well with provider and answers questions appropriately. SKIN - Without rashes. HEAD - NC/AT. EYES - PERRL with EOMI bilaterally. Sclera anicteric. EARS - No deformities of external structures noted on gross examination bilaterally. NOSE - Midline and without cyanosis. No epistaxis or purulent drainage noted. MOUTH/OROPHARYNX - Without perioral cyanosis. NECK - Neck with FROM. No nuchal rigidity. LUNGS - Chest wall symmetric without accessory muscle use, intercostals retractions, or central cyanosis. Normal vesicular breath sounds CTA B/L. No wheezes, rales, or rhonchi appreciated. CARDIAC - RRR EXTREMITIES - No clubbing or peripheral cyanosis. L knee edema, small wound/abrasion to the L knee. Decreased active and passive ROM of L knee secondary to pain. +5/5 strength noted in UE/LE bilaterally. L knee with increased warmth compared to right and L knee edematous compared to the right. No erythema. Left lower extremity appropriately warm and well-perfused NEUROLOGIC - Cranial nerves II through XII grossly intact. PSYCH - A&O, cooperative. Pt is very pleasant and interacts well with examiner. Course Administered Medications Discontinued Medications Hydromorphone HCl (Hydromorphone Inj 0.5 Mg/0.5 Ml Syr) 0.5 mg IV NOW STA Stop: 09/16/23 08:13 Last Admin: 09/16/23 08:35 Dose: 0.5 mg Documented By: WILFRED Hydromorphone HCl (Hydromorphone Inj 0.5 Mg/0.5 Ml Syr) 0.5 mg IV NOW STA Stop: 09/16/23 09:23 Last Admin: 09/16/23 09:29 Dose: 0.5 mg Documented By: WILFRED Hydromorphone HCl (Hydromorphone Inj 0.5 Mg/0.5 Ml Syr) 0.25 mg IV NOW STA Stop: 09/16/23 10:07 Last Admin: 09/16/23 10:25 Dose: 0.25 mg Documented By: WILFRED Hydromorphone HCl (Hydromorphone Inj 0.5 Mg/0.5 Ml Syr) 0.25 mg IV NOW STA Stop: 09/16/23 12:22 Last Admin: 09/16/23 12:48 Dose: 0.25 mg Documented By: WILFRED Sodium Chloride (Nss) 1,000 mls @ 125 mls/hr IV .Q8H LULU Stop: 10/16/23 08:29 Last Admin: 09/16/23 08:35 Dose: 125 mls/hr Documented By: WILFRED Medical Decision Making Laboratory Data 09/16/23 08:07 09/16/23 08:07 Lab Results 09/16/23 09/16/23 09/16/23 Range/Units 08:07 08:12 09:32 WBC 17.18 H (4.8-10.8) K/ul RBC 3.05 L (4.70-6.10) M/uL Hgb 10.4 L (14.0-18.0) g/dl Hct 31.9 L (42.0-52.0) % MCV 104.6 H (80.0-100.0) fL MCH 34.1 H (25.0-34.0) pg MCHC 32.6 (32.0-36.0) g/dL RDW Std Deviation 64.9 H (36.4-46.3) fL RDW Coeff of Kvng 16.7 H (11.5-14.5) % Plt Count 277 (130-400) K/uL MPV 11.5 (9.4-12.4) fL Immature Gran % (Auto) 2.1 % Neut % (Auto) 78.3 % Lymph % (Auto) 8.1 % [place] % (Auto) 10.1 % Eos % (Auto) 0.9 % Baso % (Auto) 0.5 % Neut # (Auto) 13.44 H (1.40-6.50) K/uL Lymph # (Auto) 1.40 (1.20-3.40) K/uL [place] # (Auto) 1.74 H (0.11-0.59) K/uL Eos # (Auto) 0.15 (0.00-0.50) K/uL Baso # (Auto) 0.09 (0.00-0.20) K/uL Immature Gran # (Auto) 0.36 H (0.01-0.20) K/uL ESR 20 (0-20) mm/hr PT 11.2 (9.0-12.0) Seconds INR 1.0 (0.9-1.1) APTT 30 (21-31) Seconds PTT Ratio 1.1 Sodium 130 L (136-145) mmol/L Potassium 4.6 (3.5-5.1) mmol/L Chloride 101 (98-107) mmol/L Carbon Dioxide 22 (21-32) mmol/L Anion Gap 7 (3-11) BUN 22 (6-23) mg/dl Creatinine 0.74 (0.6-1.4) mg/dl Est Cr Clr Drug Dosing 123.1 ml/min Est GFR ( Amer) 112.2 ml/min Est GFR (Non-Af Amer) 96.8 ml/min BUN/Creatinine Ratio 29.7 H (10-20) Glucose 131 H (70-99(Fasting)) mg/dl Lactate 1.4 (0.4-2.0) mmol/L Uric Acid 7.5 H (2.6-7.2) mg/dl Calcium 9.5 (8.6-10.3) mg/dl Magnesium 1.6 L (1.7-2.4) mg/dl Total Bilirubin 0.3 (0.2-1.0) mg/dl AST 13 (13-39) U/L ALT 14 (7-52) U/L Alkaline Phosphatase 80 (34-104) U/L C-Reactive Protein < 0.50 (0-0.5) mg/dl Total Protein 7.0 (6.0-8.3) gm/dl Albumin 4.0 (3.4-5.0) gm/dl Globulin 3.0 (2.5-4.0) gm/dl Albumin/Globulin Ratio 1.3 (0.9-2) Procalcitonin 0.03 (0-0.5) ng/ml Urine Color Yellow Urine Appearance Clear (Clear) Urine pH 5.5 (4.5-7.5) Ur Specific [place] 1.009 (1.000-1.030) Urine Protein Negative (Negative) Urine Glucose (UA) Negative (Negative) Urine Ketones Negative (Negative) Urine Blood Negative (Negative) Urine Nitrite Negative (Negative) Urine Bilirubin Negative (Negative) Urine Urobilinogen Negative (Negative) Ur Leukocyte Esterase Negative (Negative) Imaging Data Radiologist's Impression: Knee X-Ray 09/16/23 07:53 XR knee LT 3V CLINICAL HISTORY: L knee pain, hx of septic knee COMPARISON: Left knee radiographs July 26, 2023. FINDINGS: Alignment of the total left knee arthroplasty is anatomic. There is no lucency adjacent to the femoral or tibial components. No fractures are present. Moderate size joint effusion is present. Extensive vascular calcification is incidentally noted. There is left knee soft tissue swelling. IMPRESSION: 1. Status post total left knee arthroplasty. No periprosthetic fracture or lucency. 2. Moderate-sized left knee joint effusion. Left knee soft tissue swelling. ACT 112: Negative or not required by law. Electronically signed by: Tobin Acuna M.D. 09/16/2023 9:11 AM MDM Narrative Patient was seen and evaluated as above in room B10. Review was performed of triage nursing notes and vital signs. I did review pertinent previous visits and patient history. After obtaining a thorough history and physical examination the above work up was performed. Patient presents to us today for evaluation of left knee pain. He has a significant and complex past medical history and as of recent did have a septic left knee in early July of this year and is status post intervention here surgically. Patient was receiving IV antibiotics now currently on oral doxycycline for suppressive therapy and noted return of symptoms last night into today. He states that he has been able to walk without assistance as of recent and was doing very well. Then he notes last evening into today can barely put any weight on the area and is brought to the bed in a wheelchair. On examination the left knee is edematous, with increased warmth compared to the left and is tender to palpation as well as with any passive or active range of motion of the left knee patient states that his symptoms today are identical to what brought him in here early last month except for there is no fever at the current time. Options of care were discussed with the patient. IV access was established. Labs were drawn. Left knee x-ray was obtained per my interpretation there is no fracture. There is a joint effusion seen. Labs reveal leukocytosis 17.18 which is new. Minor anemia noted with hemoglobin at 10.4. Mild hyponatremia 130. There is no evidence of emergent kidney or liver failure. Mild hypomagnesemia 1.6. Uric acid is now elevated at 7.5 compared to 6.5 early July. Lactate normal. CRP and ESR normal which is improved from previous. Procalcitonin 0.03. Urinalysis is negative. The patient is experiencing a significant amount of left knee pain and particularly with attempted movement of the left knee joint and weightbearing. No reported trauma or injury. Patient required several IV doses of pain medication here today. Maintenance rate IV hydration also provided. I did discuss presentation with the on-call orthopedist, Dr. Nelson at 10:15 AM and the patient's surgeon Dr. Woods at 11:36 AM. We discussed the findings. At the present time recommendation is to continue the patient's current regimen of suppressive antibiotic therapy, not add additional antibiotics, hold off on arthrocentesis, and then orthopedics will be consulted while the patient is inpatient to further assess and provide further recommendations. Case discussed with the hospitalist service. Please refer to further documentation regarding his stay. GCS: 15 In the evaluation and treatment of this patient the following differential diagnoses were entertained: Gouty arthritis, septic knee, inflammatory condition, fracture, dislocation, subluxation, contusion, among others Impression & Plan Knee pain, left, Effusion of left knee, Leukocytosis Discharge Plan Visit Data Chief Complaint: Knee Injury/Pain ED Provider: [facility] ED Midlevel Provider: Raj Adam Discharge Problem: Knee pain, left, Effusion of left knee, Leukocytosis Patient Disposition: Admitted As Inpatient Condition: Good Discharge Instructions Interventions: ED Discharge Assessment Last Done: 09/16/23 15:21
[2023-09-16 08:32] LABS: Basophils # (auto) 0.09 K/uL (0.00-0.20); Basophils % (auto) 0.5 %; Eosinophils # (auto) 0.15 K/uL (0.00-0.50); Eosinophils % (auto) 0.9 %; Hematocrit (blood only) 31.9 % (42.0-52.0); Hemoglobin 10.4 g/dl (14.0-18.0); Immature Granulocytes # (auto) 0.36 K/uL (0.01-0.20); Immature Granulocytes % (auto) 2.1 %; Lymphocytes % (auto) 8.1 %; Mean Corpuscular Hemoglobin 34.1 pg (25.0-34.0); Mean Corpuscular Hgb Conc 32.6 g/dL (32.0-36.0); Mean Corpuscular Volume 104.6 fL (80.0-100.0); Mean Platelet Volume 11.5 fL (9.4-12.4); Monocytes # (auto) 1.74 K/uL (0.11-0.59); Monocytes % (auto) 10.1 %; Neutrophils # (auto) 13.44 K/uL (1.40-6.50); Neutrophils % (auto) 78.3 %; Platelet Count 277 K/uL (130-400); RDW Coefficient of Variation 16.7 % (11.5-14.5); RDW Standard Deviation 64.9 fL (36.4-46.3); Red Blood Count 3.05 M/uL (4.70-6.10); White Blood Count 17.18 K/ul (4.8-10.8)
[2023-09-16] MEDS: HYDROmorphone INJ 0.5 MG/0.5 ML SYR IV STA ×4 (08:35→12:48)
[2023-09-16] MEDS: SODIUM CHLORIDE 0.9% 1,000 ML IV SCH (08:35)
[2023-09-16 08:47] LABS: Alanine Aminotransferase 14 U/L (7-52); Albumin Globulin Ratio 1.3 (0.9-2); Alkaline Phosphatase 80 U/L (34-104); Anion Gap 7 (3-11); Aspartate Aminotransferase 13 U/L (13-39); BUN Creatinine Ratio 29.7 (10-20); Bilirubin,Total 0.3 mg/dl (0.2-1.0); Blood Urea Nitrogen 22 mg/dl (6-23); C Reactive Protein < 0.50 mg/dl (0-0.5); Calcium 9.5 mg/dl (8.6-10.3); Carbon Dioxide 22 mmol/L (21-32); Chloride 101 mmol/L (98-107); Creatinine Clr Calc Pharmacy 123.1 ml/min; Est GFR (African American) 112.2 ml/min; Est GFR (Non-African American) 96.8 ml/min; Glucose 131 mg/dl (70-99(Fasting)); Magnesium 1.6 mg/dl (1.7-2.4); Potassium 4.6 mmol/L (3.5-5.1); Sodium 130 mmol/L (136-145); Uric Acid 7.5 mg/dl (2.6-7.2)
[2023-09-16 08:57] LABS: Partial Thromboplastin Ratio 1.1; Partial Thromboplastin Time 30 Seconds (21-31); Prothrombin Time 11.2 Seconds (9.0-12.0)
--- NOTE | 2023-09-16 09:13 | XRay Report ---
XR knee LT 3V CLINICAL HISTORY: L knee pain, hx of septic knee COMPARISON: Left knee radiographs July 26, 2023. FINDINGS: Alignment of the total left knee arthroplasty is anatomic. There is no lucency adjacent to the femoral or tibial components. No fractures are present. Moderate size joint effusion is present. Extensive vascular calcification is incidentally noted. There is left knee soft tissue swelling. IMPRESSION: 1. Status post total left knee arthroplasty. No periprosthetic fracture or lucency. 2. Moderate-sized left knee joint effusion. Left knee soft tissue swelling. ACT 112: Negative or not required by law. Electronically signed by: Tobin Acuna M.D. 09/16/2023 9:11 AM
[2023-09-16 10:18] LABS: Appearance Urine Clear (Clear); Bilirubin Urine Negative (Negative); Blood Urine Negative (Negative); Color Urine Yellow; Glucose Urine UA Negative (Negative); Ketones Urine Negative (Negative); Leukocyte Esterase Urine Negative (Negative); Nitrite Urine Negative (Negative); Protein Urine Negative (Negative); Specific Gravity Urine 1.009 (1.000-1.030); Urobilinogen Urine Negative (Negative); pH Urine 5.5 (4.5-7.5)
--- NOTE | 2023-09-16 12:34 | History & Physical Report ---
Date of Service September 16, 2023 Assessment & Plan (1) Effusion, left knee: Plan: Concerning recent history of septic knee arthritis with Enterococcus faecalis bacteremia treated with I&D poly exchange left TKA and daptomycin for 6 weeks. Remains on doxycycline prophylaxis. Avoid escalating antibiotics until seen by orthopedics to decide on knee aspiration given normal CRP/ESR/procalcitonin, follow-up blood cultures No prior history of gout therefore would advise aspiration of joint prior to empirically treating for this ? traumatic inflammation hemarthrosis - Mild trauma on Friday and on Eliquis, ortho to consider aspiration but for now will continue Eliquis unless hemarthrosis confirmed Ice pack ordered. Treatment of knee pain as below Consult orthopedics (2) Knee pain, left: Plan: Secondary to the effusion as above Acetaminophen 1 g p.o. TID Oxycodone 5 to 10 mg PRN first-line, Dilaudid 0.25 to 0.5 mg PRN second line Ice pack to knee Will consider Voltaren gel vs. short course of Toradol (noted prior stomach ulcers and Eliquis use) depending on ortho plan to aspirate the knee (3) Hypertension: Plan: Continue lisinopril and metoprolol (4) Atrial fibrillation: Plan: Continue Eliquis Continue rate control with metoprolol (5) Alcohol use disorder: Plan: Monitor for alcohol withdrawal although no history of this Plan VTE Prophylaxis - Eliquis Diet - T2DM Disposition - observe on med/surg Admission and Anticipated Discharge Date Admission Date: September 16, 2023 History of Present Illness Chief Complaint: Left knee pain Primary Care Provider: Nitish Lam MD Jackson Becker is a 63 year old male who presents to the ER with left knee swelling and pain. 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 He was treated with 6 weeks of daptomycin and now on doxycycline 100mg PO BID. Sudden onset worsening of swelling and pain and he can no longer weight bear that started last night. He feels he is unable to currently manage at home. He denies any fever or chills. He reports working on his car and brushing his knee causing a slight bruise on Friday but otherwise no trauma. He has no history of gout. He feels this is how it started last time when it became septic. Allergies Allergy/AdvReac Type Severity Reaction Status Date / Time latex Allergy Unknown Rash Verified 09/16/23 10:18 Penicillins Allergy Unknown Rash Verified 09/16/23 10:18 adhesive AdvReac Unknown Rash Verified 09/16/23 10:18 dronedarone AdvReac Unknown Fatigued Verified 09/16/23 10:18 gemfibrozil AdvReac Unknown BODY ACHES Verified 09/16/23 10:18 NSAIDS (Non-Steroidal AdvReac Unknown TOLD NOT Verified 09/16/23 10:18 Anti-Inflamma TO TAKE - HX STOMACH ULCER Ltplvqo-OAJ-JhD Reductase AdvReac Unknown body aches Verified 09/16/23 10:18 Inhibitor [Yviwjdo-Zjf-Gku Reductase Inhibitor] Home Medications Medication Instructions Recorded Confirmed Type acetaminophen 650 mg 650 mg PO Q8H PRN ARTHRITIS PAIN 12/06/20 09/16/23 History tablet,extended release folic acid 400 mcg tablet 0.4 mg PO QAM 04/23/22 09/16/23 History cyanocobalamin (vitamin B-12) 1,000 mcg PO QAM 08/26/22 09/16/23 History 1,000 mcg tablet (Vitamin B-12) glimepiride 1 mg tablet 1 mg PO QAM #90 tabs 02/03/23 09/16/23 Rx lisinopril 40 mg tablet 40 mg PO QAM #90 tabs 02/03/23 09/16/23 Rx gabapentin 400 mg capsule 800 mg (2 x 400 mg) PO TID #180 06/25/23 09/16/23 Rx caps apixaban 5 mg tablet (Eliquis) 5 mg PO BID #180 tabs 06/30/23 09/16/23 Rx duloxetine 60 mg capsule,delayed 60 mg PO QAM #90 caps 07/02/23 09/16/23 Rx release (Cymbalta) pantoprazole 40 mg tablet,delayed 40 mg PO QAM #90 tabs 07/02/23 09/16/23 Rx release clopidogrel 75 mg tablet (Plavix) 75 mg PO QAM 07/18/23 09/16/23 History magnesium oxide 400 mg PO QAM 07/18/23 09/16/23 History tamsulosin 0.4 mg capsule 0.4 mg PO HS 07/18/23 09/16/23 History metformin 500 mg tablet,extended 2,000 mg (4 x 500 mg) PO QAM #360 07/28/23 09/16/23 Rx release 24 hr tabs tramadol 50 mg tablet 100 mg (2 x 50 mg) PO BID #120 tabs 08/13/23 09/16/23 Rx doxepin 10 mg capsule 10 mg PO HS 09/16/23 09/16/23 History doxycycline hyclate 100 mg tablet 0 mg PO DAILY 09/16/23 09/16/23 History evolocumab 140 mg/mL subcutaneous 140 mg subcut UD 09/16/23 09/16/23 History pen injector (Sally Villavicencio) metoprolol tartrate 50 mg tablet 50 mg PO BID 09/16/23 09/16/23 History Past Med/Surg History Medical History Pulmonary nodule Hx of atrial flutter ablation done 01/2023 [facility] [place] [facility] [place] Nocturia Presence of neurostimulator Diabetic neuropathy History of cardioversion 01/2021, [facility]; F/U DR. 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 History of chronic back pain Neurogenic claudication due to lumbar stenosis History of COVID-19 03/18/2022>resolved 06/28/23 + home test - congestion. Tx with pill. Resolved. No current s/s. History of anxiety Paroxysmal atrial flutter 01/2021- s/p cardoversion- with excessive alcohol intake- felt to be contributing component. No AC. No recurrence per PCP records 07/29/22- - Recurrence in preop area prior to surgery - sent from ACU to ED- admitted to [facility] 07/29/22-07/30/22 Alcohol abuse Pt admits to >4 beers daily Bilateral carotid artery stenosis Per 11/2021 Carotid Doppler: 50-69% stenosis of right ICA, less than 50% stenosis of left ICA, greater than 50% stenosis of right ECA Antegrade flow in both vertebral arteries CAD in [place] artery s/p LAD stent x2 () History of gastric ulcer No recent issues Degenerative disc disease GERD (gastroesophageal reflux disease) Well controlled and stable Diabetes mellitus, type 2 NIDDM Hypertension Hyperlipidemia Sleep apnea "Mild to moderate"-cpap has not been using for sometimes/recently been trying to get back to using. Has trouble tolerating mask. Myocardial infarction Anterolateral [place]- 2008, [place], had cardiac cath; f/u [facility] Surgical History Presence of neurostimulator 2022 History of cardiac radiofrequency ablation 04/09/2023 [facility] [place] [facility] [place]-flutter S/P insertion of iliac artery stent Dec 2022? about 6 mon ago/ Dr. Garcia/2 stents. History of endarterectomy Left Femoral Endarterectomy with Bovine Patch 05/08/2022 & right side done 05/28/2023 Hx of cataract extraction rt/lt. History of anesthesia reaction WITH BACK SURGERY 2004 - DISORIENTED, PULLED CATHETER OUT ([facility]) Fusion of spine CERVICAL, "HAVE 80% OF MOTION" History of lumbar surgery X 3 - 2004, 2006, 2019 History of total knee replacement RT/LEFT (LEFT REVISION) Hx of transurethral resection of prostate History of esophagogastroduodenoscopy (EGD) History of colonoscopy History of nasal septoplasty History of heart artery stent 2006 or 2007, x2 stent, [place]; f/u [facility] Family History Mother Family history of diabetes mellitus Father Family history of diabetes mellitus Other No family history of adverse response to anesthesia Denies family history of Ovarian cancer Prostate cancer Myocardial infarction Breast cancer Colorectal cancer Social History Smoking Status: Current every day smoker Tobacco Type: Cigarettes Age Started Using Tobacco: 18; Cigarettes Per Day: 10 cigs per day/advised npo; Second Hand Exposure: No; Do You Dip or Chew Tobacco: No; Hx Alcohol Use: Yes Alcohol type: beer Alcohol type Comment: 6-8 beers Hx Substance Use: No Preferred Language: [place] Communication Ability: Effective Visual Impairment: No Limitations Distributor Cleaner Required: No Beliefs That Will Affect Care: None marital status: Current Living Situation: Spouse Current Living Situation Comment: Lives at home with current occupational status: retired How many Children do You have: 4 Other Information That Helps Us Care for You: No Feels Safe at Home: Yes Safety Concerns: Feels Safe At This Time Childhood Exposure to Second-Hand Smoke: Yes Diet: regular caffeine: Yes Dental Care, Regularly: Yes Physical Activity Frequency: Does not Exercise Seatbelt Use: always Sunscreen Use: No Assistive Devices: None Review of Systems Review of Systems: All systems reviewed & are unremarkable except as noted in HPI & below Physical Exam Constitutional: WD/WN, vitals as above ENMT: external ear and nose normal, oropharynx normal Respiratory: normal respiratory effort, lungs clear to auscultation Cardiovascular: Rate/Rhythm: regular rate and + irregularly irregular Heart Sounds: no murmur Extremities: normal capillary refill; no calf tenderness and no pedal edema Gastrointestinal (Abdomen): normal bowel sounds, soft, nontender, no hepatosplenomegaly Musculoskeletal: Left knee joint effusion with pain over patellar Skin: no rashes, warm and dry Neurologic: moves all extremities and awake; not confused Psychiatric: A+Ox3, euthymic affect Results & Data Results & Data Vital Signs (Past 12 Hours) Vital Signs Temp Pulse Pulse Resp BP BP Pulse Ox 09/16/23 10:05 73 18 188/96 H 95 09/16/23 09:06 73 18 96 09/16/23 08:34 77 19 131/105 H 96 09/16/23 07:30 36.7 C 87 18 146/77 H 97 O2 Del Method 09/16/23 10:05 Room Air 09/16/23 09:06 Room Air 09/16/23 08:34 Room Air 09/16/23 07:30 Room Air Laboratory Results Abnormal lab results 09/16/23 09/16/23 09/16/23 Range/Units 08:07 15:40 18:14 WBC 17.18 H (4.8-10.8) K/ul RBC 3.05 L (4.70-6.10) M/uL Hgb 10.4 L (14.0-18.0) g/dl Hct 31.9 L (42.0-52.0) % MCV 104.6 H (80.0-100.0) fL MCH 34.1 H (25.0-34.0) pg RDW Std Deviation 64.9 H (36.4-46.3) fL RDW Coeff of Kvng 16.7 H (11.5-14.5) % Neut # (Auto) 13.44 H (1.40-6.50) K/uL [place] # (Auto) 1.74 H (0.11-0.59) K/uL Immature Gran # (Auto) 0.36 H (0.01-0.20) K/uL Sodium 130 L (136-145) mmol/L BUN/Creatinine Ratio 29.7 H (10-20) Glucose 131 H (70-99(Fasting)) mg/dl POC Glucose 154 H 194 H (70-99) mg/dl Uric Acid 7.5 H (2.6-7.2) mg/dl Magnesium 1.6 L (1.7-2.4) mg/dl Diagnostic Findings XR knee LT 3V CLINICAL HISTORY: L knee pain, hx of septic knee COMPARISON: Left knee radiographs July 26, 2023. FINDINGS: Alignment of the total left knee arthroplasty is anatomic. There is no lucency adjacent to the femoral or tibial components. No fractures are present. Moderate size joint effusion is present. Extensive vascular calcification is incidentally noted. There is left knee soft tissue swelling. IMPRESSION: 1. Status post total left knee arthroplasty. No periprosthetic fracture or lucency. 2. Moderate-sized left knee joint effusion. Left knee soft tissue swelling. Medications Administered ER Medications Given: Dilaudid 0.5mg IV Normal saline @ 125ml/hr Dilaudid 0.5mg IV Dilaudid 0.25mg IV Dilaudid 0.25mg IV Code Status & VTE Plan Code Status Full VTE Prophylaxis Plan VTE Prophylaxis will be ordered: Yes PG Care Time/CCT Total # of Minutes Spent Total Time Spent with Patient: Total time spent is greater than 50% in coordination of care (as documented) at patient's floor/unit and/or counseling patient: Coding Level of Care Code 57301 INT INP/OBS CARE 3/75MIN Diagnoses Effusion, left knee M25.462 Knee pain, left M25.562 Primary hypertension I10 Hypertension type: primary hypertension Atrial fibrillation I48.91 Alcohol use disorder F10.90 (3) Hypertension Hypertension type: primary hypertension Qualified Code(s): I10 - Essential (primary) hypertension
[2023-09-16] MEDS ORDERED: DEXTROSE 50% 50 ML SYRINGE IV PRN (15:20)
[2023-09-16] MEDS ORDERED: GLUCOSE 40% GEL 15 GM TUBE PO PRN (15:20)
[2023-09-16] MEDS ORDERED: GLUCAGON FOR INJ 1 MG VIAL SQ PRN (15:20)
[2023-09-16] MEDS ORDERED: HYDROmorphone INJ 0.5 MG/0.5 ML SYR IV PRN (15:20)
[2023-09-16] MEDS ORDERED: POLYETHYLENE (MIRALAX) 17 GM PACK PO PRN (15:20)
[2023-09-16] MEDS ORDERED: GLUCOSE 10 TAB/TUBE PO PRN (15:20)
[2023-09-16] MEDS ORDERED: CARBOHYDRATES FOR HYPOGLYCEMIA PO PRN (15:20)
[2023-09-16] MEDS: ACETAMINOPHEN 500 MG TAB PO SCH (15:50)
[2023-09-16] MEDS: HYDROmorphone INJ 0.5 MG/0.5 ML SYR IV PRN (15:52)
[2023-09-16] MEDS: GABAPENTIN 800 MG TAB PO SCH (16:14)
[2023-09-16] MEDS: MAGNESIUM SULFATE / D5W 1 GM/100 ML BAG IV SCH (16:17)
--- NOTE | 2023-09-16 17:51 | Orthopedic Consultation ---
Date of Consultation September 16, 2023 Assessment & Plan (1) Knee pain, left: 63-year-old male status post left I&D with poly change left knee due to sepsis. Organism was Enterobacter faecalis. Patient had finished up his IV daptomycin in the recent past and had been started on oral antibiotics which were doxycycline 100 mg p.o. twice daily. Sudden onset of pain in the middle of the night. No history of falls. Patient did bump his knee recently causing a mild hematoma as well as small cut over the anterolateral aspect of the knee. X-rays have been reviewed by myself and Dr. Woods. These have been compared to previous films done in the past. No major changes noted. No fractures identified. No lucencies or areas of loosening noted. Effusion noted but no signs of debris with the effusion in the knee itself. White count of 17,000 with a sed rate of 20 and a CRP of 0.5. Patient states that he is able to move the knee and the lower extremity better since he arrived this morning. He does not examine overtly as a acute septic knee. I have discussed the case with the admitting physician Dr. Taylor. Question of an inflammatory reaction versus contusion. There is also a chance of reinfection of the knee. Patient will be started on some pain control as well as some low-dose Toradol for 24 hours. After discussing this with Dr. Woods, he would like to wait on aspiration of the knee at this time. Patient will be admitted for pain control and be continued on his doxycycline twice daily. We will plan to consult infectious disease for repeat check for their input. If they require an aspiration of the knee then this can be done tomorrow. If patient begins to improve with his pain control over the next 12 hours, he can be out of bed weightbearing as tolerated. No plans for surgery just at this time and patient may have a diet. 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 Patient had a previous left total knee arthroplasty performed by Dr. Woods in 2011. He developed a left total knee infection in early July. At that point in time, the patient underwent open irrigation and debridement of the left septic TKA along with polyethylene bearing change. Infectious disease was consulted and cultures were taken showing Enterococcus faecalis. Patient was essentially sent home on IV daptomycin for 6 weeks with plans for p.o. doxycycline 100 mg p.o. twice daily for 6 months thereafter. Patient has been in to the office for several visits and has been doing well and improving. He in the recent past finished up his IV antibiotics and was started on his daptomycin twice daily. Patient states that he has been doing well. He had been ambulating around the house. He had also been working in his garage. At 1 point recently the patient bumped his left knee against something causing some swelling and a small cut over the proximal medial region of his knee. He treated the small cut and had a Band-Aid on it. Patient states that yesterday was a typical normal day. He denies any type of fever, chills, night sweats. Denies nausea or vomiting. Patient denies any kind of flu or cold-like symptoms. He states that he had some mild soreness in the knee in the evening. He then went to bed and in the middle of the night tried to get up to use the restroom. He had moderate to severe knee pain in the left knee region and was u nable to ambulate. He was brought to the emergency room and his case was discussed with Dr. Woods lab values were showing a white count of 17,000 however his sed rate and CRP were normal. Patient was afebrile and vital signs are stable. Patient is being admitted by the medicine service currently for ambulation dysfunction. On seeing the patient, he is awake and alert and in no acute distress. He states that this knee pain is not like when he was first infected. He is feeling better currently since coming into the ER. He states he able to move the LE better. No other complaints at this time. Denies LBP or radiculopathy. Denies left hip pain. Allergies Allergy/AdvReac Type Severity Reaction Status Date / Time latex Allergy Unknown Rash Verified 09/16/23 10:18 Penicillins Allergy Unknown Rash Verified 09/16/23 10:18 adhesive AdvReac Unknown Rash Verified 09/16/23 10:18 dronedarone AdvReac Unknown Fatigued Verified 09/16/23 10:18 gemfibrozil AdvReac Unknown BODY ACHES Verified 09/16/23 10:18 NSAIDS (Non-Steroidal AdvReac Unknown TOLD NOT Verified 09/16/23 10:18 Anti-Inflamma TO TAKE - HX STOMACH ULCER Auisllm-OHX-MyR Reductase AdvReac Unknown body aches Verified 09/16/23 10:18 Inhibitor [Ukaljeb-Wrc-Qio Reductase Inhibitor] Home Medications Medication Instructions Recorded Confirmed Type acetaminophen 650 mg 650 mg PO Q8H PRN ARTHRITIS PAIN 12/06/20 09/16/23 History tablet,extended release folic acid 400 mcg tablet 0.4 mg PO QAM 04/23/22 09/16/23 History cyanocobalamin (vitamin B-12) 1,000 mcg PO QAM 08/26/22 09/16/23 History 1,000 mcg tablet (Vitamin B-12) glimepiride 1 mg tablet 1 mg PO QAM #90 tabs 02/03/23 09/16/23 Rx lisinopril 40 mg tablet 40 mg PO QAM #90 tabs 02/03/23 09/16/23 Rx gabapentin 400 mg capsule 800 mg (2 x 400 mg) PO TID #180 06/25/23 09/16/23 Rx caps apixaban 5 mg tablet (Eliquis) 5 mg PO BID #180 tabs 06/30/23 09/16/23 Rx duloxetine 60 mg capsule,delayed 60 mg PO QAM #90 caps 07/02/23 09/16/23 Rx release (Cymbalta) pantoprazole 40 mg tablet,delayed 40 mg PO QAM #90 tabs 07/02/23 09/16/23 Rx release clopidogrel 75 mg tablet (Plavix) 75 mg PO QAM 07/18/23 09/16/23 History magnesium oxide 400 mg PO QAM 07/18/23 09/16/23 History tamsulosin 0.4 mg capsule 0.4 mg PO HS 07/18/23 09/16/23 History metformin 500 mg tablet,extended 2,000 mg (4 x 500 mg) PO QAM #360 07/28/23 09/16/23 Rx release 24 hr tabs tramadol 50 mg tablet 100 mg (2 x 50 mg) PO BID #120 tabs 08/13/23 09/16/23 Rx doxepin 10 mg capsule 10 mg PO HS 09/16/23 09/16/23 History doxycycline hyclate 100 mg tablet 0 mg PO DAILY 09/16/23 09/16/23 History evolocumab 140 mg/mL subcutaneous 140 mg subcut UD 09/16/23 09/16/23 History pen injector (Repatha SureClick) metoprolol tartrate 50 mg tablet 50 mg PO BID 09/16/23 09/16/23 History Patient History Medical History Pulmonary nodule Hx of atrial flutter ablation done 01/2023 [facility] Nocturia Presence of neurostimulator Diabetic neuropathy History of cardioversion 01/2021, [facility]; F/U DR. 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 History of chronic back pain Neurogenic claudication due to lumbar stenosis History of COVID-19 03/18/2022>resolved 06/28/23 + home test - congestion. Tx with pill. Resolved. No current s/s. History of anxiety Paroxysmal atrial flutter 01/2021- s/p cardoversion- with excessive alcohol intake- felt to be contributing component. No AC. No recurrence per PCP records 07/29/22- - Recurrence in preop area prior to surgery - sent from ACU to ED- admitted to [facility] 07/29/22-07/30/22 Alcohol abuse Pt admits to >4 beers daily Bilateral carotid artery stenosis Per 11/2021 Carotid Doppler: 50-69% stenosis of right ICA, less than 50% stenosis of left ICA, greater than 50% stenosis of right ECA Antegrade flow in both vertebral arteries CAD in [place] artery s/p LAD stent x2 () History of gastric ulcer No recent issues Degenerative disc disease GERD (gastroesophageal reflux disease) Well controlled and stable Diabetes mellitus, type 2 NIDDM Hypertension Hyperlipidemia Sleep apnea "Mild to moderate"-cpap has not been using for sometimes/recently been trying to get back to using. Has trouble tolerating mask. Myocardial infarction Anterolateral IA- 2008, [place], had cardiac cath; f/u [facility] Surgical History Presence of neurostimulator 2022 History of cardiac radiofrequency ablation 04/09/2023 [facility] for a-flutter S/P insertion of iliac artery stent Dec 2022? about 6 mon ago/ Dr. Garcia/2 stents. History of endarterectomy Left Femoral Endarterectomy with Bovine Patch 05/08/2022 & right side done 05/28/2023 Hx of cataract extraction rt/lt. History of anesthesia reaction WITH BACK SURGERY 2004 - DISORIENTED, PULLED CATHETER OUT ([facility]) Fusion of spine CERVICAL, "HAVE 80% OF MOTION" History of lumbar surgery X 3 - 2004, 2006, 2019 History of total knee replacement RT/LEFT (LEFT REVISION) Hx of transurethral resection of prostate History of esophagogastroduodenoscopy (EGD) History of colonoscopy History of nasal septoplasty History of heart artery stent 2006 or 2007, x2 stent, [place]; f/u [facility] Family History Mother Family history of diabetes mellitus Father Family history of diabetes mellitus Other No family history of adverse response to anesthesia Denies family history of Ovarian cancer Prostate cancer Myocardial infarction Breast cancer Colorectal cancer Social History Smoking Status: Current every day smoker Tobacco Type: Cigarettes Age Started Using Tobacco: 18; Cigarettes Per Day: 10 cigs per day/advised npo; Second Hand Exposure: No; Do You Dip or Chew Tobacco: No; Hx Alcohol Use: Yes Alcohol type: beer Alcohol type Comment: 6-8 beers Hx Substance Use: No Preferred Language: Sinhala Communication Ability: Effective Visual Impairment: No Limitations I&C Technician Required: No Beliefs That Will Affect Care: None marital status: Current Living Situation: Spouse Current Living Situation Comment: Lives at home with current occupational status: retired How many Children do You have: 4 Other Information That Helps Us Care for You: No Feels Safe at Home: Yes Safety Concerns: Feels Safe At This Time Childhood Exposure to Second-Hand Smoke: Yes Diet: regular caffeine: Yes Dental Care, Regularly: Yes Physical Activity Frequency: Does not Exercise Seatbelt Use: always Sunscreen Use: No Assistive Devices: None Physical Exam 2 Physical Exam: Pt currently awake and alert. Oriented x 3. NAD. Pleasant and cooperative. On examination of his left knee, he has a small pillow underneath the left knee keeping it slightly flexed at approximately 20 to 30 degrees. Patient has an area over the lateral aspect of his knee more proximal to the incision that was an old cut of the had recently obtained over the last couple of days. There is no covering on it at this point in time it is not draining. There is no erythema around this area. He has a small area of hematoma in the same area where he said he bumped the knee. He does have an effusion which is not grossly tense. He has some mild inflammatory warmth around the medial lateral joint line but the remainder of the knee is not overtly hot and there is no erythema. He has no tenderness over the medial lateral joint line at this time. He has some mild pain on palpation over the superior pole the patella and proximal portion of the incision. He has no pain on palpation of the posterior portion of the knee at this time. Collaterals feel stable. I am able to get him into extension. Taking him through gentle range of motion is minimal and he complains of most of the pain over the posterior medial aspect of the thigh starting at the distal femur and traveling proximally. He states the pain does not feel like it is in the knee itself. The incision is well-healed from previous surgery. Calves are soft nontender. Neurovascular is intact this time. Patient denies any radiculopathy from low back pain. No buttock pain. Denies any left hip pain with range of motion. Results & Data Vital Signs (Past 12 Hours) Vital Signs Temp Pulse Pulse Resp BP BP Pulse Ox 09/16/23 16:49 68 09/16/23 16:00 74 18 95/54 L 96 09/16/23 12:48 142/79 H 09/16/23 12:43 70 18 96 09/16/23 10:05 73 18 188/96 H 95 09/16/23 09:06 73 18 96 09/16/23 08:34 77 19 131/105 H 96 09/16/23 07:30 36.7 C 87 18 146/77 H 97 O2 Del Method 09/16/23 16:49 09/16/23 16:00 Room Air 09/16/23 12:48 09/16/23 12:43 Room Air 09/16/23 10:05 Room Air 09/16/23 09:06 Room Air 09/16/23 08:34 Room Air 09/16/23 07:30 Room Air Laboratory Results Laboratory Results WBC 17.18 K/ul (4.8-10.8) H 09/16/23 08:07 RBC 3.05 M/uL (4.70-6.10) L 09/16/23 08:07 Hgb 10.4 g/dl (14.0-18.0) L 09/16/23 08:07 Hct 31.9 % (42.0-52.0) L 09/16/23 08:07 MCV 104.6 fL (80.0-100.0) H 09/16/23 08:07 MCH 34.1 pg (25.0-34.0) H 09/16/23 08:07 MCHC 32.6 g/dL (32.0-36.0) 09/16/23 08:07 RDW Std Deviation 64.9 fL (36.4-46.3) H 09/16/23 08:07 RDW Coeff of Kvng 16.7 % (11.5-14.5) H 09/16/23 08:07 Plt Count 277 K/uL (130-400) 09/16/23 08:07 MPV 11.5 fL (9.4-12.4) 09/16/23 08:07 Immature Gran % (Auto) 2.1 % 09/16/23 08:07 Neut % (Auto) 78.3 % 09/16/23 08:07 Lymph % (Auto) 8.1 % 09/16/23 08:07 [place] % (Auto) 10.1 % 09/16/23 08:07 Eos % (Auto) 0.9 % 09/16/23 08:07 Baso % (Auto) 0.5 % 09/16/23 08:07 Neut # (Auto) 13.44 K/uL (1.40-6.50) H 09/16/23 08:07 Lymph # (Auto) 1.40 K/uL (1.20-3.40) 09/16/23 08:07 [place] # (Auto) 1.74 K/uL (0.11-0.59) H 09/16/23 08:07 Eos # (Auto) 0.15 K/uL (0.00-0.50) 09/16/23 08:07 Baso # (Auto) 0.09 K/uL (0.00-0.20) 09/16/23 08:07 Immature Gran # (Auto) 0.36 K/uL (0.01-0.20) H 09/16/23 08:07 ESR 20 mm/hr (0-20) 09/16/23 08:07 PT 11.2 Seconds (9.0-12.0) 09/16/23 08:07 INR 1.0 (0.9-1.1) 09/16/23 08:07 APTT 30 Seconds (21-31) 09/16/23 08:07 PTT Ratio 1.1 09/16/23 08:07 Sodium 130 mmol/L (136-145) L 09/16/23 08:07 Potassium 4.6 mmol/L (3.5-5.1) 09/16/23 08:07 Chloride 101 mmol/L (98-107) 09/16/23 08:07 Carbon Dioxide 22 mmol/L (21-32) 09/16/23 08:07 Anion Gap 7 (3-11) 09/16/23 08:07 BUN 22 mg/dl (6-23) 09/16/23 08:07 Creatinine 0.74 mg/dl (0.6-1.4) 09/16/23 08:07 Est Cr Clr Drug Dosing 123.1 ml/min 09/16/23 08:07 Est GFR ( Amer) 112.2 ml/min 09/16/23 08:07 Est GFR (Non-Af Amer) 96.8 ml/min 09/16/23 08:07 BUN/Creatinine Ratio 29.7 (10-20) H 09/16/23 08:07 Glucose 131 mg/dl (70-99(Fasting)) H 09/16/23 08:07 POC Glucose 154 mg/dl (70-99) H 09/16/23 15:40 Lactate 1.4 mmol/L (0.4-2.0) 09/16/23 08:12 Uric Acid 7.5 mg/dl (2.6-7.2) H 09/16/23 08:07 Calcium 9.5 mg/dl (8.6-10.3) 09/16/23 08:07 Magnesium 1.6 mg/dl (1.7-2.4) L 09/16/23 08:07 Total Bilirubin 0.3 mg/dl (0.2-1.0) 09/16/23 08:07 AST 13 U/L (13-39) 09/16/23 08:07 ALT 14 U/L (7-52) 09/16/23 08:07 Alkaline Phosphatase 80 U/L (34-104) 09/16/23 08:07 C-Reactive Protein < 0.50 mg/dl (0-0.5) 09/16/23 08:07 Total Protein 7.0 gm/dl (6.0-8.3) 09/16/23 08:07 Albumin 4.0 gm/dl (3.4-5.0) 09/16/23 08:07 Globulin 3.0 gm/dl (2.5-4.0) 09/16/23 08:07 Albumin/Globulin Ratio 1.3 (0.9-2) 09/16/23 08:07 Procalcitonin 0.03 ng/ml (0-0.5) 09/16/23 08:07 Urine Color Yellow 09/16/23 09:32 Urine Appearance Clear (Clear) 09/16/23 09:32 Urine pH 5.5 (4.5-7.5) 09/16/23 09:32 Ur Specific [place] 1.009 (1.000-1.030) 09/16/23 09:32 Urine Protein Negative (Negative) 09/16/23 09:32 Urine Glucose (UA) Negative (Negative) 09/16/23 09:32 Urine Ketones Negative (Negative) 09/16/23 09:32 Urine Blood Negative (Negative) 09/16/23 09:32 Urine Nitrite Negative (Negative) 09/16/23 09:32 Urine Bilirubin Negative (Negative) 09/16/23 09:32 Urine Urobilinogen Negative (Negative) 09/16/23 09:32 Ur Leukocyte Esterase Negative (Negative) 09/16/23 09:32 Impressions Knee X-Ray 09/16/23 07:53 XR knee LT 3V CLINICAL HISTORY: L knee pain, hx of septic knee COMPARISON: Left knee radiographs July 26, 2023. FINDINGS: Alignment of the total left knee arthroplasty is anatomic. There is no lucency adjacent to the femoral or tibial components. No fractures are present. Moderate size joint effusion is present. Extensive vascular calci fication is incidentally noted. There is left knee soft tissue swelling. IMPRESSION: 1. Status post total left knee arthroplasty. No periprosthetic fracture or lucency. 2. Moderate-sized left knee joint effusion. Left knee soft tissue swelling. ACT 112: Negative or not required by law. Electronically signed by: Tobin Acuna M.D. 09/16/2023 9:11 AM
[2023-09-16] MEDS: INSULIN ASPART PER UNIT CHARGE SC SCH (18:19)
[2023-09-16] MEDS: METOPROLOL TARTRATE 50 MG TAB PO SCH (20:24)
[2023-09-16] MEDS: DOXYCYCLINE HYCLATE 100 MG CAP PO SCH (20:24)
[2023-09-16] MEDS: APIXABAN 5 MG TABLET PO SCH (20:24)
[2023-09-16] MEDS: DOXEPIN HCL 10 MG CAPSULE PO SCH (20:24)
[2023-09-16] MEDS: TAMSULOSIN HCL 0.4 MG CAP PO SCH (20:24)
[2023-09-16] MEDS: MELATONIN 3 MG TAB PO PRN (23:38)
[2023-09-17] MEDS: FAMOTIDINE 20MG IV PUSH 20 MG/5 ML SYR IV SCH (00:12)
[2023-09-17] MEDS: KETOROLAC TROMETHAMINE 15 MG/ML VIAL IV SCH (00:12)
[2023-09-17 08:05] LABS: Basophils # (auto) 0.09 K/uL (0.00-0.20); Basophils % (auto) 1.2 %; Eosinophils # (auto) 0.12 K/uL (0.00-0.50); Eosinophils % (auto) 1.6 %; Hemoglobin 8.8 g/dl (14.0-18.0); Immature Granulocytes # (auto) 0.23 K/uL (0.01-0.20); Lymphocytes # (auto) 1.24 K/uL (1.20-3.40); Lymphocytes % (auto) 16.1 %; Mean Corpuscular Hemoglobin 34.6 pg (25.0-34.0); Mean Corpuscular Hgb Conc 32.6 g/dL (32.0-36.0); Mean Corpuscular Volume 106.3 fL (80.0-100.0); Mean Platelet Volume 11.5 fL (9.4-12.4); Monocytes # (auto) 1.21 K/uL (0.11-0.59); Monocytes % (auto) 15.7 %; Neutrophils # (auto) 4.81 K/uL (1.40-6.50); Neutrophils % (auto) 62.4 %; Platelet Count 230 K/uL (130-400); RDW Coefficient of Variation 16.9 % (11.5-14.5); RDW Standard Deviation 66.3 fL (36.4-46.3); Red Blood Count 2.54 M/uL (4.70-6.10)
[2023-09-17] MEDS: DULoxetine HCL 60 MG CAP PO SCH (08:32)
--- NOTE | 2023-09-17 08:32 | Infectious Disease Consult ---
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 He recently finished his abx and was on PO doxy. He bumped his left knee against something causing swelling and a small cut over the proximal medial region of his knee. The night of presentation, he developed moderate to severe knee pain and was unable to ambulate and came to the ED. No fevers, chills, or night sweats. Here, he has been afebrile. BP stable. WBC 17.18, Cr and LFT wnl. ESR 20, CRP < 0.50, PCT 0.03. UA negative. XR left knee with moderate sized joint effusion, left knee soft tissue swelling. BCx in process. He was seen by ortho and aspiration held as pain possibly believed to be related to inflammatory reaction or contusion. I do not feel like the left knee is infected at this time. I agree with orthopedics in monitoring, especially since knee is better today without pain and no e/o redness or warmth. WBC is also normalized today. Would continue on suppression with doxycycline. # Left knee pain/swelling # H/o recent left PJI 2/2 E faecalis, on suppressive abx # h/o PCN allergy - agree with holding on invasive measures for his left knee given improvement - no e/o septic joint at this time - continue on suppression with doxycycline - monitor clinically ID will discontinue active follow up at this time. Please do not hesitate to reconsult the Infectious Diseases service as needed. Torri Flores MD [facility], Division of Infectious Diseases [facility]: [phone] Consultation Information Consultation was provided via telemedicine using two-way real-time interactive telecommunication between the patient and the telemedicine provider. For the duration of the visit, the provider was performing the assessment from a different facility than the patient. This includesuse of bluetooth stethoscope forauscultationperformed by the telepresenter that the telemedicine provider can hear if described in the physical exam. Post Anesthesia Room Nurse contact information: Please call [facility] Call Center [phone]. (Phone Number For Physician Use Only) After establishing a telemedicine visit, patient was: Patient was verified with two unique identifiers, Patient/authorized rep acknowledged consent and u nderstanding and Gave permission to continue telehealth session Time Spent with Patient: Initial => 75 min History of Present Illness Reason for Consultation: recent septic TKA Attending Physician: Travis Fermin MD History of Present Illness 63yo M with h/o idiopathic polyneuropathy, right ICA stenosis, PVD, atrial fibrillation/flutter s/p ablation, hyponatremia, s/p ANIMAL GENETICIST endarterectomy on 05/28/2023, neurogenic claudication, osteoarthritis, CAD s/p PCI, s/p left TKA in 2011 c/b PJI in July 2023 due to Amp-S E faecalis with bacteremia s/p DAIR tx with daptomycin x 6 weeks followed by PO doxy x 6mo (due to PCN allergy) who presented on 09/15 with left knee pain. He recently finished his abx and was on PO doxy. He bumped his left knee against something causing swelling and a small cut over the proximal medial region of his knee. The night of presentation, he developed moderate to severe knee pain and was unable to ambulate and came to the ED. No fevers, chills, or night sweats. Here, he has been afebrile. BP stable. WBC 17.18, Cr and LFT wnl. ESR 20, CRP < 0.50, PCT 0.03. UA negative. XR left knee with moderate sized joint effusion, left knee soft tissue swelling. BCx in process. He was seen by ortho and aspiration held as pain possibly believed to be related to inflammatory reaction or contusion. On evaluation, patient feeling well. Able to move leg better and no longer tender. Yesterday, couldnt ambulate due to pain. Notes that he had spasm on back side of the knee that were primarily causing the pain. Knee feels a bit more swollen then usual, knee joint itself was sore but not painful. No redness of the knee or leg. No n/v/d or other rashes. Allergies Allergy/AdvReac Type Severity Reaction Status Date / Time latex Allergy Unknown Rash Verified 09/16/23 10:18 Penicillins Allergy Unknown Rash Verified 09/16/23 10:18 adhesive AdvReac Unknown Rash Verified 09/16/23 10:18 dronedarone AdvReac Unknown Fatigued Verified 09/16/23 10:18 gemfibrozil AdvReac Unknown BODY ACHES Verified 09/16/23 10:18 NSAIDS (Non-Steroidal AdvReac Unknown TOLD NOT Verified 09/16/23 10:18 Anti-Inflamma TO TAKE - HX STOMACH ULCER Fxayggd-VLF-DwV Reductase AdvReac Unknown body aches Verified 09/16/23 10:18 Inhibitor [Pjrjcot-Adw-Ews Reductase Inhibitor] Home Medications Medication Instructions Recorded Confirmed Type acetaminophen 650 mg 650 mg PO Q8H PRN ARTHRITIS PAIN 12/06/20 09/16/23 History tablet,extended release folic acid 400 mcg tablet 0.4 mg PO QAM 04/23/22 09/16/23 History cyanocobalamin (vitamin B-12) 1,000 mcg PO QAM 08/26/22 09/16/23 History 1,000 mcg tablet (Vitamin B-12) glimepiride 1 mg tablet 1 mg PO QAM #90 tabs 02/03/23 09/16/23 Rx lisinopril 40 mg tablet 40 mg PO QAM #90 tabs 02/03/23 09/16/23 Rx gabapentin 400 mg capsule 800 mg (2 x 400 mg) PO TID #180 06/25/23 09/16/23 Rx caps apixaban 5 mg tablet (Eliquis) 5 mg PO BID #180 tabs 06/30/23 09/16/23 Rx duloxetine 60 mg capsule,delayed 60 mg PO QAM #90 caps 07/02/23 09/16/23 Rx release (Cymbalta) pantoprazole 40 mg tablet,delayed 40 mg PO QAM #90 tabs 07/02/23 09/16/23 Rx release clopidogrel 75 mg tablet (Plavix) 75 mg PO QAM 07/18/23 09/16/23 History magnesium oxide 400 mg PO QAM 07/18/23 09/16/23 History tamsulosin 0.4 mg capsule 0.4 mg PO HS 07/18/23 09/16/23 History metformin 500 mg tablet,extended 2,000 mg (4 x 500 mg) PO QAM #360 07/28/23 09/16/23 Rx release 24 hr tabs tramadol 50 mg tablet 100 mg (2 x 50 mg) PO BID #120 tabs 08/13/23 09/16/23 Rx doxepin 10 mg capsule 10 mg PO HS 09/16/23 09/16/23 History doxycycline hyclate 100 mg tablet 0 mg PO DAILY 09/16/23 09/16/23 History evolocumab 140 mg/mL subcutaneous 140 mg subcut UD 09/16/23 09/16/23 History pen injector (Sally Vilalvicencio) metoprolol tartrate 50 mg tablet 50 mg PO BID 09/16/23 09/16/23 History Patient History Medical History Pulmonary nodule Hx of atrial fl[place] [facility] [place] Presence of neurostimulator Diabetic neuropathy History of cardioversion 01/2021, [facility]; F/U DR. NASCIMENTO, [place] Hx of transesophageal echocardiography (GLADYS) for monitoring 01/2021, [facility] Chronic anemia Neuropathy Peripheral arterial disease Severe occlusive disease S/p L common femoral endarterectomy with bovine patch and lithotripsy of SFA and Popliteal arteries , status post bilateral common iliac artery [employer] and stents. History of chronic back pain Neurogenic claudication due to lumbar stenosis History of COVID-19 03/18/2022>resolved 06/28/23 + home test - congestion. Tx with pill. Resolved. No current s/s. History of anxiety Paroxysmal atrial flutter 01/2021- s/p cardoversion- with excessive alcohol intake- felt to be contributing component. No AC. No recurrence per PCP records 07/29/22- - Recurrence in preop area prior to surgery - sent from ACU to ED- admitted to [facility] 07/29/22-07/30/22 Alcohol abuse Pt admits to >4 beers daily Bilateral carotid artery stenosis Per 11/2021 Carotid Doppler: 50-69% stenosis of right ICA, less than 50% stenosis of left ICA, greater than 50% stenosis of right ECA Antegrade flow in both vertebral arteries CAD in [place] artery s/p LAD stent x2 (2006/2007) History of gastric ulcer No recent issues Degenerative disc disease GERD (gastroesophageal reflux disease) Well controlled and stable Diabetes mellitus, type 2 NIDDM Hypertension Hyperlipidemia Sleep apnea "Mild to moderate"-cpap has not been using for sometimes/recently been trying to get back to using. Has trouble tolerating mask. Myocardial infarction Anterolateral [place]- 2008, [place], had cardiac cath; f/u [facility] Surgical History Presence of neurostimulator 2022 History of cardiac radiofrequency [place] [facility] S/P insertion of iliac artery stent Dec 2022? about 6 mon ago/ Dr. Garcia/2 stents. History of endarterectomy Left Femoral Endarterectomy with Bovine Patch 05/08/2022 & right side done 05/28/2023 Hx of cataract extraction rt/lt. History of anesthesia reaction WITH BACK SURGERY 2004 - DISORIENTED, PULLED CATHETER OUT ([facility]) Fusion of spine CERVICAL, "HAVE 80% OF MOTION" History of lumbar surgery X 3 - 2004, 2006, 2019 History of total knee replacement RT/LEFT (LEFT REVISION) Hx of transurethral resection of prostate History of esophagogastroduodenoscopy (EGD) History of colonoscopy History of nasal septoplasty History of heart artery stent 2006 or 2007, x2 stent, [place]; f/u [facility] Family History Mother Family history of diabetes mellitus Father Family history of diabetes mellitus Other No family history of adverse response to anesthesia Denies family history of Ovarian cancer Prostate cancer Myocardial infarction Breast cancer Colorectal cancer Social History Smoking Status: Current every day smoker Tobacco Type: Cigarettes Age Started Using Tobacco: 18; Cigarettes Per Day: 10 cigs per day/advised npo; Second Hand Exposure: No; Do You Dip or Chew Tobacco: No; Hx Alcohol Use: Yes Alcohol type: beer Alcohol type Comment: 6-8 beers Hx Substance Use: No Preferred Language: Kiswahili Communication Ability: Effective Visual Impairment: No Limitations Paper Box Maker Required: No Beliefs That Will Affect Care: None marital status: Current Living Situation: Spouse Current Living Situation Comment: Lives at home with current occupational status: retired How many Children do You have: 4 Other Information That Helps Us Care for You: No Feels Safe at Home: Yes Safety Concerns: Feels Safe At This Time Childhood Exposure to Second-Hand Smoke: Yes Diet: regular caffeine: Yes Dental Care, Regularly: Yes Physical Activity Frequency: Does not Exercise Seatbelt Use: always Sunscreen Use: No Assistive Devices: None Review of System 10-point review of systems reviewed and are negative except for as above. Physical Exam Physical Exam: General: Awake, alert, no acute distress HEENT: NC/AT, EOMI, mmm Neck: supple Lungs: respirations non-labored Heart: nl peripheral perfusion Abdomen: soft, NT/ND Ext: no LE edema, left knee with some swelling, no erythema, tenderness and not warm Skin: no rash Neuro: O x 3 Results & Data Vital Signs (Past 12 Hours) Vital Signs Temp Pulse Resp BP Pulse Ox O2 Del Method 09/17/23 07:22 36.6 C 83 16 112/66 98 Room Air Laboratory Results Labs reviewed Diagnostic Findings Imaging reviewed (3) History of total knee arthroplasty Laterality: left Qualified Code(s): Z96.652 - Presence of left artificial knee joint
[2023-09-17] MEDS: FOLIC ACID 400 MCG TAB PO SCH (08:33)
[2023-09-17] MEDS: lisinopril 40 MG TAB PO SCH (08:33)
[2023-09-17] MEDS: PANTOprazole 40 MG TAB PO SCH (08:33)
[2023-09-17] MEDS: CLOPIDOGREL BISULFATE 75 MG TAB PO SCH (08:33)
[2023-09-17 09:14] LABS: Magnesium 2.2 mg/dl (1.7-2.4); Potassium 4.9 mmol/L (3.5-5.1)
[2023-09-17 09:19] LABS: BUN Creatinine Ratio 30.5 (10-20); C Reactive Protein 14.91 mg/dl (0-0.5); Creatinine Clr Calc Pharmacy 111.1 ml/min; Est GFR (African American) 107.6 ml/min; Est GFR (Non-African American) 92.8 ml/min
--- NOTE | 2023-09-17 10:17 | Orthopedic Progress Note ---
Date of Service September 17, 2023 Assessment & Plan (1) Knee pain, left: Plan: Infectious disease note seen and appreciated recommendations. No need for aspiration at this time since patient has markedly less pain today. This is all likely due to the possibility of injuring his knee in the last couple days likely causing hemarthrosis or hematoma in the soft tissues causing his discomfort. His white count has normalized. Plan to make sure the patient is ambulatory whether with nursing helping him or with PT OT. He can be weightbearing as tolerated. Continue suppression as per infectious disease team. Patient can follow-up with orthopedics with his next scheduled visit. Admission and Anticipated Discharge Date Admission Date: September 16, 2023 Subjective Patient seen this morning around 7 AM. Patient awake and alert. Patient is feeling much better this morning. He is able to take his knee through range of motion without difficulty. He no longer has the pain he had yesterday. He denies fevers or nausea. Overall he feels much better this morning. Physical Exam Physical Exam: On examination of his left knee, he continues to have an effusion which is not tense. He is no longer tender on palpation over the superior pole of the patella. He is nontender around the medial lateral joint lines or posteriorly. Patient is able to take his knee through gentle range of motion without pain. He is able to fully extend the knee without pain. He no longer has the posterior thigh pain that it had last night. Patient is able to sit up at the bedside without difficulty. Calves are soft nontender and neurovascular is in tact. Results & Data Vital Signs (Past 12 Hours) Vital Signs Temp Pulse Resp BP Pulse Ox O2 Del Method 09/17/23 08:31 65 122/69 09/17/23 07:22 36.6 C 83 16 112/66 98 Room Air Laboratory Results 09/17/23 09/17/23 09/16/23 Range/Units 07:34 07:25 20:39 WBC 7.70 (4.8-10.8) K/ul RBC 2.54 L (4.70-6.10) M/uL Hgb 8.8 L (14.0-18.0) g/dl Hct 27.0 L (42.0-52.0) % MCV 106.3 H (80.0-100.0) fL MCH 34.6 H (25.0-34.0) pg MCHC 32.6 (32.0-36.0) g/dL RDW Std Deviation 66.3 H (36.4-46.3) fL RDW Coeff of Kvng 16.9 H (11.5-14.5) % Plt Count 230 (130-400) K/uL MPV 11.5 (9.4-12.4) fL Immature Gran % (Auto) 3.0 % Neut % (Auto) 62.4 % Lymph % (Auto) 16.1 % [place] % (Auto) 15.7 % Eos % (Auto) 1.6 % Baso % (Auto) 1.2 % Neut # (Auto) 4.81 (1.40-6.50) K/uL Lymph # (Auto) 1.24 (1.20-3.40) K/uL [place] # (Auto) 1.21 H (0.11-0.59) K/uL Eos # (Auto) 0.12 (0.00-0.50) K/uL Baso # (Auto) 0.09 (0.00-0.20) K/uL Immature Gran # (Auto) 0.23 H (0.01-0.20) K/uL Sodium 133 L (136-145) mmol/L Potassium 4.9 (3.5-5.1) mmol/L Chloride 104 (98-107) mmol/L Carbon Dioxide 21 (21-32) mmol/L Anion Gap 8 (3-11) BUN 25 H (6-23) mg/dl Creatinine 0.82 (0.6-1.4) mg/dl Est Cr Clr Drug Dosing 111.1 ml/min Est GFR ( Amer) 107.6 ml/min Est GFR (Non-Af Amer) 92.8 ml/min BUN/Creatinine Ratio 30.5 H (10-20) Glucose 117 H (70-99(Fasting)) mg/dl POC Glucose 123 H 154 H (70-99) mg/dl Calcium 9.0 (8.6-10.3) mg/dl Magnesium 2.2 (1.7-2.4) mg/dl C-Reactive Protein 14.91 H (0-0.5) mg/dl Urine Color Urine Appearance (Clear) Urine pH (4.5-7.5) Ur Specific Trevor (1.000-1.030) Urine Protein (Negative) Urine Glucose (UA) (Negative) Urine Ketones (Negative) Urine Blood (Negative) Urine Nitrite (Negative) Urine Bilirubin (Negative) Urine Urobilinogen (Negative) Ur Leukocyte Esterase (Negative) 09/16/23 09/16/23 09/16/23 Range/Units 18:14 15:40 09:32 WBC (4.8-10.8) K/ul RBC (4.70-6.10) M/uL Hgb (14.0-18.0) g/dl Hct (42.0-52.0) % MCV (80.0-100.0) fL MCH (25.0-34.0) pg MCHC (32.0-36.0) g/dL RDW Std Deviation (36.4-46.3) fL RDW Coeff of Kvng (11.5-14.5) % Plt Count (130-400) K/uL MPV (9.4-12.4) fL Immature Gran % (Auto) % Neut % (Auto) % Lymph % (Auto) % [place] % (Auto) % Eos % (Auto) % Baso % (Auto) % Neut # (Auto) (1.40-6.50) K/uL Lymph # (Auto) (1.20-3.40) K/uL [place] # (Auto) (0.11-0.59) K/uL Eos # (Auto) (0.00-0.50) K/uL Baso # (Auto) (0.00-0.20) K/uL Immature Gran # (Auto) (0.01-0.20) K/uL Sodium (136-145) mmol/L Potassium (3.5-5.1) mmol/L Chloride (98-107) mmol/L Carbon Dioxide (21-32) mmol/L Anion Gap (3-11) BUN (6-23) mg/dl Creatinine (0.6-1.4) mg/dl Est Cr Clr Drug Dosing ml/min Est GFR ( Amer) ml/min Est GFR (Non-Af Amer) ml/min BUN/Creatinine Ratio (10-20) Glucose (70-99(Fasting)) mg/dl POC Glucose 194 H 154 H (70-99) mg/dl Calcium (8.6-10.3) mg/dl Magnesium (1.7-2.4) mg/dl C-Reactive Protein (0-0.5) mg/dl Urine Color Yellow Urine Appearance Clear (Clear) Urine pH 5.5 (4.5-7.5) Ur Specific [place] 1.009 (1.000-1.030) Urine Protein Negative (Negative) Urine Glucose (UA) Negative (Negative) Urine Ketones Negative (Negative) Urine Blood Negative (Negative) Urine Nitrite Negative (Negative) Urine Bilirubin Negative (Negative) Urine Urobilinogen Negative (Negative) Ur Leukocyte Esterase Negative (Negative)
--- NOTE | 2023-09-17 12:58 | Hospitalist Progress Note ---
Date of Service September 17, 2023 Assessment & Plan (1) Effusion, left knee: Plan: -Patient presented with sudden onset left knee swelling and pain with inability to bear weight. This began personal coach of 09/16/2023. -Concerning recent history of septic knee arthritis with Enterococcus faecalis bacteremia treated with I&D poly exchange left TKA and daptomycin for 6 weeks. Remains on doxycycline prophylaxis, scheduled 6-month regimen. -CRP, ESR, procalcitonin normal on admission. Leukocytosis on admission, now resolved. -Blood cultures have been negative x 24 hours -No prior history of gout and aspiration from early July revealed no crystals. Low suspicion for gout or pseudogout at this time. Therefore would advise aspiration of joint prior to empirically treating for this. -Possible traumatic inflammation and hemarthrosis. Mild trauma on Friday when doing activities at home, patient is on Eliquis. -Ortho was consulted and did not feel any need for aspiration at this time since the patient has markedly less pain today. -Continue suppression as per infectious disease team. -Recommend close outpatient follow-up with Ortho upon discharge. (2) Knee pain, left: Plan: Secondary to the effusion as above Acetaminophen 1 g p.o. TID Oxycodone 5 to 10 mg PRN first-line, Dilaudid 0.25 to 0.5 mg PRN second line Ice pack to knee (3) Hypertension: Plan: Continue lisinopril and metoprolol (4) Atrial fibrillation: Plan: Continue Eliquis Continue rate control with metoprolol (5) Alcohol use disorder: Plan: Monitor for alcohol withdrawal although no history of this Plan VTE Prophylaxis - Eliquis CODE STATUS: Full code Admission and Anticipated Discharge Date Admission Date: September 16, 2023 Subjective Patient seen and evaluated at bedside with . He reports that he is significantly improved compared to yesterday. He states that he is able to bear weight and has full range of motion without difficulty today. He has no complaints at this time. I had a thorough discussion with the patient and his and answered their questions. Patient reports he would like to stay the night to ensure he is improved, and then discharge home tomorrow if everything is okay overnight. Physical Exam Physical Exam: General: No acute distress, nondiaphoretic, well-developed, well-nourished. Skin: The skin was without rashes, erythema, edema, or bruising. Cardiac: Regular rate and rhythm without murmurs gallops or rubs. Pulm: Clear to auscultation bilaterally without wheezes, rales or rhonchi. No retractions or accessory muscle use. Abdominal: Positive bowel sounds x 4. Soft, nontender, without masses or organomegaly. No guarding or rebound tenderness. Neuro: A&O x3. No focal neurological deficits. Extremities: Effusion of left knee. Abrasion on lateral aspect of left knee. Not tender to palpation. Normal passive and active range of motion without pain. Calves are soft nontender and neurovascular is intact. Results & Data Results & Data Vital Signs (Past 12 Hours) Vital Signs Temp Pulse Resp BP Pulse Ox O2 Del Method 09/17/23 08:31 65 122/69 09/17/23 07:22 36.6 C 83 16 112/66 98 Room Air Laboratory Results Reviewed CBC Reviewed chemistries Reviewed blood cultures PG Care Time/CCT Total # of Minutes Spent Total Time Spent with Patient: Total time spent is greater than 50% in coordination of care (as documented) at patient's floor/unit and/or counseling patient: Coding Level of Care Code 87655 SUB INP/OBS CARE 2/35MIN Diagnoses Effusion, left knee M25.462 Knee pain, left M25.562 Primary hypertension I10 Hypertension type: primary hypertension Atrial fibrillation I48.91 Alcohol use disorder F10.90 (3) Hypertension Hypertension type: primary hypertension Qualified Code(s): I10 - Essential (primary) hypertension
[2023-09-17] MEDS: oxyCODONE HCL IR 5 MG TAB (IMMEDIATE RELEASE) PO PRN ×2 (19:26→23:29)
[2023-09-18 06:34] LABS: Hematocrit (blood only) 26.5 % (42.0-52.0); Hemoglobin 8.7 g/dl (14.0-18.0); Mean Corpuscular Hemoglobin 34.8 pg (25.0-34.0); Mean Corpuscular Hgb Conc 32.8 g/dL (32.0-36.0); Mean Platelet Volume 11.8 fL (9.4-12.4); Platelet Count 213 K/uL (130-400); RDW Coefficient of Variation 16.8 % (11.5-14.5); White Blood Count 5.83 K/ul (4.8-10.8)
[2023-09-18 07:01] LABS: BUN Creatinine Ratio 25.3 (10-20); C Reactive Protein 11.29 mg/dl (0-0.5); Calcium 9.4 mg/dl (8.6-10.3); Creatinine Clr Calc Pharmacy 121.5 ml/min; Est GFR (African American) 111.6 ml/min; Est GFR (Non-African American) 96.3 ml/min; Potassium 4.8 mmol/L (3.5-5.1)
--- NOTE | 2023-09-18 18:45 | Discharge Summary ---
Date of Service September 18, 2023 Admission HPI Per Admitting Provider Jackson Becker is a 63 year old male who presents to the ER with left knee swelling and pain. 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 He was treated with 6 weeks of daptomycin and now on doxycycline 100mg PO BID. Sudden onset worsening of swelling and pain and he can no longer weight bear that started last night. He feels he is unable to currently manage at home. He denies any fever or chills. He reports working on his car and brushing his knee causing a slight bruise on Friday but othe rwise no trauma. He has no history of gout. He feels this is how it started last time when it became septic. Admission Exam Per Admitting Provider Constitutional: WD/WN, vitals as above ENMT: external ear and nose normal, oropharynx normal Respiratory: normal respiratory effort, lungs clear to auscultation Cardiovascular: Rate/Rhythm: regular rate and + irregularly irregular Heart Sounds: no murmur Extremities: normal capillary refill; no calf tenderness and no pedal edema Gastrointestinal (Abdomen): normal bowel sounds, soft, nontender, no hepatosplenomegaly Musculoskeletal: Left knee joint effusion with pain over patellar Skin: no rashes, warm and dry Neurologic: moves all extremities and awake; not confused Psychiatric: A+Ox3, euthymic affect Principal Diagnosis Left knee effusion Discharge Exam General: No acute distress, nondiaphoretic, well-developed, well-nourished. Skin: The skin was without rashes, erythema, edema, or bruising. Cardiac: Regular rate and rhythm without murmurs gallops or rubs. Pulm: Clear to auscultation bilaterally without wheezes, rales or rhonchi. No retractions or accessory muscle use. Abdominal: Positive bowel sounds x 4. Soft, nontender, without masses or organomegaly. No guarding or rebound tenderness. Neuro: A&O x3. No focal neurological deficits. Extremities: Effusion of left knee. Abrasion on lateral aspect of left knee. Not tender to palpation. Normal passive and active range of motion without pain. Calves are soft nontender and neurovascular is intact. Discharge Data Allergies Allergy/AdvReac Type Severity Reaction Status Date / Time latex Allergy Unknown Rash Verified 09/16/23 10:18 Penicillins Allergy Unknown Rash Verified 09/16/23 10:18 adhesive AdvReac Unknown Rash Verified 09/16/23 10:18 dronedarone AdvReac Unknown Fatigued Verified 09/16/23 10:18 gemfibrozil AdvReac Unknown BODY ACHES Verified 09/16/23 10:18 NSAIDS (Non-Steroidal AdvReac Unknown TOLD NOT Verified 09/16/23 10:18 Anti-Inflamma TO TAKE - HX STOMACH ULCER [id number]-[id number]-FtX Reductase AdvReac Unknown body aches Verified 09/16/23 10:18 Inhibitor [Zxuyxkp-Nkf-Ebo Reductase Inhibitor] Consultations 09/16/23 12:17 Consult Orthopedic Surgery Routine 09/16/23 18:25 Consult Infectious Diseases Routine Hospital Course (1) Effusion, left knee: -Patient presented with sudden onset left knee swelling and pain with inability to bear weight. 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 -Concerning recent history of septic knee arthritis with Enterococcus faecalis bacteremia treated with I&D poly exchange left TKA and daptomycin for 6 weeks. Remains on doxycycline prophylaxis, scheduled 6-month regimen. -CRP, ESR, procalcitonin normal on admission. Leukocytosis on admission, now resolved. -Blood cultures have been negative x 24 hours -No prior history of gout and aspiration from early July revealed no crystals. Low suspicion for gout or pseudogout at this time. Therefore would advise aspiration of joint prior to empirically treating for this. -Possible traumatic inflammation and hemarthrosis. Mild trauma on Friday when doing activities at home, patient is on Eliquis. -Ortho was consulted and did not feel any need for aspiration at this time since the patient has markedly less pain today. -Continue suppression as per infectious disease team. -Close outpatient follow-up with Ortho upon discharge. (2) Knee pain, left: Secondary to the effusion as above Continue with acetaminophen as needed for pain, and ice pack to knee as needed for inflammation. (3) Hypertension: Continue lisinopril and metoprolol (4) Atrial fibrillation: Continue Eliquis Continue rate control with metoprolol (5) Alcohol use disorder: Monitor for alcohol withdrawal although no history of this Plan CODE STATUS: Full code Total Time Total Time Spent Total Time Spent (In Minutes): Greater than 30 minutes spent completing this discharge process including direct patient care, medication reconciliation, documentation, review of labs and images, and coordination of care. Discharge Plan Discharge Items Patient Disposition: Home - Self-Care Reason For Visit: INTRACTABLE KNEE PAIN Discharge Diagnosis: Left knee effusion Condition on Discharge: Good Activity: Resume your previous activity Non-emergency contact: Primary Care Provider and Surgeon Call non-emergency contact if: you have any medication questions and your symptoms worsen Follow-up/Referrals: Nitish Lam MD [Primary Care Provider] - 09/23/23 10:00 am Diet: Carb Consistent or DM2 Addtl Attending Provider Instructions: Mr. Becker, You were admitted to the hospital with a left knee effusion. This is what caused your symptoms of left knee swelling, pain, and inability to bear weight. This is most likely due to hemarthrosis or traumatic inflammation, most likely secondary to hitting your knee while doing activities at home. While you are in the hospital, the orthopedics team saw you, and did not feel that there was any need for aspirating the knee at this time. Additionally, the infectious disease team saw you, and they agreed with Ortho and recommended continuing the antibiotic course that you have been on. Your white blood cell count has remained normal for 2 days now, your blood cultures have been negative for over 24 hours, and your inflammatory markers remain only mildly elevated on your day of discharge. Upon discharge from the hospital: * Continue your antibiotic suppression regimen as prescribed. * Follow-up with orthopedics next week. Their office will call you with an appointment date and time. * You can continue to use an ice pack on your knee, safely perform activities as tolerated, and take acetaminophen as needed for pain. * Continue all of your other home medication as prescribed. Please return to the hospital if you experience any of the following: Fever > 100.4 or chills, significant left knee pain, fast heartbeat, shortness of breath, prolonged nausea/vomiting, chest pain, lightheadedness, or fainting. It was a pleasure taking care of you while you were in the hospital, Tricia Gaming PA-C Pending Studies at Discharge: Yes Studies:: Blood cultures Stand-Alone Forms: My [facility] [employer], Smoking Cessation Medications and DC Order Prescriptions: Continued lisinopril 40 mg tablet 40 mg PO QAM Qty: 90 3RF glimepiride 1 mg tablet 1 mg PO QAM Qty: 90 3RF gabapentin 400 mg capsule 800 mg PO TID Qty: 180 5RF Eliquis 5 mg tablet 5 mg PO BID Qty: 180 3RF pantoprazole 40 mg tablet,delayed release (DR/EC) 40 mg PO QAM Qty: 90 3RF duloxetine [Cymbalta] 60 mg capsule,delayed release(DR/EC) 60 mg PO QAM Qty: 90 3RF metformin 500 mg tablet extended release 24 hr 2,000 mg PO QAM Qty: 360 3RF tramadol 50 mg tablet 100 mg PO BID Qty: 120 0RF acetaminophen 650 mg Tablet Extended Release 650 mg PO Q8H PRN (Reason: ARTHRITIS PAIN) Patient Comments: takes at least 2 tablets every day. cyanocobalamin (vitamin B-12) [Vitamin B-12] 1,000 mcg Tablet 1,000 mcg PO QAM folic acid 400 mcg Tablet 0.4 mg PO QAM clopidogrel [Plavix] 75 mg tablet 75 mg PO QAM tamsulosin 0.4 mg capsule 0.4 mg PO HS magnesium oxide 400 mg magnesium capsule 400 mg PO QAM metoprolol tartrate 50 mg tablet 50 mg PO BID doxycycline hyclate 100 mg tablet 0 mg PO DAILY Rx Instructions: Pt: "I take 100mg by mouth twice daily. The pharmacy dispensed the medication incorrectly." Original Directions: 100mg by mouth daily doxepin 10 mg capsule 10 mg PO HS Repatha SureClick 140 mg/mL pen injector 140 mg subcut UD Patient Comments: due 07/18/23 Rx Instructions: Every 2 weeks Discharge Orders: Discharge Order (Routine); Ordered 09/18/23 Ordered By: Tricia Gaming Admission Data Admit Date/Time: 09/16/23 12:17 Attending Provider: Norberto Kidd Admit Provider: Travis Taylor Primary Care Provider: Nitish Lam Other Providers: Carter Woods Other Interventions: Discharge Summary Assessment (RN) Last Done: 09/18/23 13:08 Coding Level of Care Code 36222 INP/OBS DISCH >30 MIN Diagnoses Effusion, left knee M25.462 Knee pain, left M25.562 Primary hypertension I10 Hypertension type: primary hypertension Atrial fibrillation I48.91 Alcohol use disorder F10.90
== END 2023-09-18 14:58 | disposition home or self-care (01) ==
LOC: ED 07:28 → EDINP 07:28 → SUATTDRO 12:17 → 3W 18:04

== ENCOUNTER 2024-03-07 17:14 | Inpatient (IN) ==
[2024-03-07 18:05] LABS: Basophils # (auto) 0.07 K/uL (0.00-0.20); Basophils % (auto) 0.7 %; Eosinophils # (auto) 0.03 K/uL (0.00-0.50); Eosinophils % (auto) 0.3 %; Hematocrit (blood only) 25.2 % (42.0-52.0); Hemoglobin 7.7 g/dl (14.0-18.0); Immature Granulocytes # (auto) 0.08 K/uL (0.01-0.20); Immature Granulocytes % (auto) 0.8 %; Lymphocytes # (auto) 1.22 K/uL (1.20-3.40); Lymphocytes % (auto) 12.3 %; Mean Corpuscular Hemoglobin 31.4 pg (25.0-34.0); Mean Corpuscular Hgb Conc 30.6 g/dL (32.0-36.0); Mean Corpuscular Volume 102.9 fL (80.0-100.0); Mean Platelet Volume 10.9 fL (9.4-12.4); Monocytes # (auto) 0.79 K/uL (0.11-0.59); Neutrophils # (auto) 7.73 K/uL (1.40-6.50); Neutrophils % (auto) 77.9 %; Nucleated RBC # (auto) 0.16 K/uL (0.00-0.12); Nucleated RBC % (auto) 1.6 %; Platelet Count 438 K/uL (130-400); RDW Coefficient of Variation 19.2 % (11.5-14.5); RDW Standard Deviation 72.8 fL (36.4-46.3); Red Blood Count 2.45 M/uL (4.70-6.10); White Blood Count 9.92 K/ul (4.8-10.8)
--- NOTE | 2024-03-07 18:18 | XRay Report ---
XR chest 1V portable HISTORY: 63 years-old Male Dyspnea COMPARISON: 07/26/2023 TECHNIQUE: AP view of the chest FINDINGS: Cardiac silhouette is enlarged. No pneumothorax, pleural effusion, airspace consolidation or pulmonar y edema. Degenerative changes of the shoulders and spine. Partially imaged stimulator leads overlie t he mid thoracic spine. Cervical spinal fusion hardware. IMPRESSION: Cardiomegaly without acute process. ACT 112: Negative or not required by law. The above report was generated using voice recognition software. It may contain grammatical, syntax o r spelling errors. Electronically signed by: Juan Cid M.D. 03/07/2024 6:16 PM
[2024-03-07 18:22] LABS: Albumin Globulin Ratio 1.2 (0.9-2); Albumin Level 3.8 gm/dl (3.4-5.0); Bilirubin,Total 0.4 mg/dl (0.2-1.0); Calcium 8.9 mg/dl (8.6-10.3); Creatinine Clr Calc Pharmacy 100.9 ml/min; Globulin 3.1 gm/dl (2.5-4.0); Potassium 3.7 mmol/L (3.5-5.1); Total Protein 6.9 gm/dl (6.0-8.3)
[2024-03-07 18:23] LABS: Polychromasia 1+; Stomatocytes 1+
[2024-03-07 18:26] LABS: Appearance Urine Clear (Clear); Bilirubin Urine Negative (Negative); Blood Urine Negative (Negative); Color Urine Yellow; Glucose Urine UA Negative (Negative); Ketones Urine Negative (Negative); Leukocyte Esterase Urine Negative (Negative); Nitrite Urine Negative (Negative); Protein Urine Negative (Negative); Urobilinogen Urine Negative (Negative)
[2024-03-07] MEDS ORDERED: SODIUM CHLORIDE 0.9% 250 ML IV PRN (18:29)
[2024-03-07 19:21] LABS: Troponin I High Sensitivity 20.3 pg/ml (0-20)
[2024-03-07 19:27] LABS: Influenza A virus by PCR Negative (Neg); Influenza B virus by PCR Negative (Neg); RSV by PCR Negative (Neg); SARS CoV2 RNA(COVID-19) Ceph NEGATIVE (Negative)
--- NOTE | 2024-03-07 20:49 | History & Physical Report ---
Date of Service March 07, 2024 Assessment & Plan (1) Symptomatic anemia: (2) Infection of prosthetic left knee joint: (3) Nonsustained ventricular tachycardia: (4) CAD (coronary artery disease): (5) Hx of atrial flutter: (6) Postlaminectomy syndrome of lumbar region: (7) Peripheral arterial disease: (8) BPH (benign prostatic hyperplasia): (9) Anxiety and depression: (10) Sleep apnea: (11) Hypertension: (12) History of right-sided carotid endarterectomy: (13) History of angioplasty of peripheral vessel: Plan Symptomatic anemia- Hemoglobin 7.7 on admission with progressive shortness of breath and dyspnea on exertion Lab review from outpatient [facility] labs revealed hemoglobin of 7.8 on 02/10/2024. He reports that he was told to take iron, B12, vitamin C and recheck labs this past week, however, he was too tired to get them done Will transfuse 1 unit PRBCs as ordered by the ED, and reassess H&H in the a.m. Suspect his hemoglobin was low post procedure right CEA on 01/20/2024, as patient has been short of breath since that time and fatigued. He reports having had a normal EGD and colonoscopy several months ago Hemoccult stools COVID, flu and RSV testing negative Left TKA periprosthetic infection/Enterococcus bacteremia- Completed 6 weeks of daptomycin IV, begun on 07/26/2023, and since that time has been on suppressive therapy with doxycycline 100 mg p.o. twice daily He has been following with infectious disease, and review of notes suggest he is to continue doxycycline at least until April He still has persistent discomfort, which does affect his ability to ambulate somewhat, but he feels ambulation is limited in general due to multiple orthope dic issues He now follows with Dr. Boyd, orthopedic surgery at [place], and is to return there if he decides to get a revision of his left TKA CAD/hypertension/PAD/carotid artery disease/PAF/history of nonsustained V. tach- Continue apixaban, aspirin, clopidogrel, metoprolol tartrate, lisinopril, mag oxide Troponin 20.3, will reassess in a.m. Surgeries performed by Dr. Gonzales at [facility]: 12/31/2023-status post left SFA/pop angioplasty. 01/20/2024 status post right CEA Give Klor-Con 40 mEq p.o. now, for potassium of 3.7, and add magnesium levels to ED labs Diabetes mellitus- Hold metformin and glimepiride Place on Accu-Cheks with NovoLog SSI Check a hemoglobin A1c History of Present Illness Chief Complaint: The patient presents to the emergency department with fatigue and dyspnea on exertion since having undergone a right CEA on 01/20/2024, that he reports has particularly worsened over the past 1 to 2 weeks. Primary Care Provider: Nitish Lam MD The patient is a 63-year-old male with a past medical history including nonsustained V. tach, status post ablation for atrial flutter, left TKA septic joint on chronic suppressive therapy, peripheral vascular disease status post left SFA and popliteal angioplasty on 12/31/2023, CAD, stenosis of both vertebral arteries, idiopathic polyneuropathy, lumbar postlaminectomy syndrome, BPH, diabetes mellitus, anxiety and depression, and sleep apnea. The patient presents to the emergency department due to worsening shortness of breath, generalized fatigue and myalgias arthralgias over the past 1 to 2 weeks. His hemoglobin was found to be 7.7 on ED labs, and has been prescribed 1 unit PRBCs by the ED, [facility]. Allergies Allergy/AdvReac Type Severity Reaction Status Date / Time latex Allergy Unknown Rash Verified 02/09/24 13:59 Penicillins Allergy Unknown Rash Verified 02/09/24 13:59 adhesive AdvReac Unknown Rash Verified 02/09/24 13:59 dronedarone AdvReac Unknown Fatigued Verified 02/09/24 13:59 gemfibrozil AdvReac Unknown BODY ACHES Verified 02/09/24 13:59 NSAIDS (Non-Steroidal AdvReac Unknown TOLD NOT Verified 02/09/24 13:59 Anti-Inflamma TO TAKE - HX STOMACH ULCER Bjjtkru-RWU-MeP Reductase AdvReac Unknown body aches Verified 02/09/24 13:59 Inhibitor [Pgqcvyx-Oxp-Jko Reductase Inhibitor] Home Medications Medication Instructions Recorded Confirmed Type acetaminophen 650 mg 650 mg PO Q8H PRN ARTHRITIS PAIN 12/06/20 03/07/24 History tablet,extended release cyanocobalamin (vitamin B-12) 1,000 mcg PO QAM 08/26/22 03/07/24 History 1,000 mcg tablet (Vitamin B-12) glimepiride 1 mg tablet 1 mg PO QAM #90 tabs 02/03/23 03/07/24 Rx apixaban 5 mg tablet (Eliquis) 5 mg PO BID #180 tabs 06/30/23 03/07/24 Rx duloxetine 60 mg capsule,delayed 60 mg PO QAM #90 caps 07/02/23 03/07/24 Rx release (Cymbalta) pantoprazole 40 mg tablet,delayed 40 mg PO QAM #90 tabs 07/02/23 03/07/24 Rx release clopidogrel 75 mg tablet (Plavix) 75 mg PO QAM 07/18/23 03/07/24 History tamsulosin 0.4 mg capsule 0.4 mg PO HS 07/18/23 03/07/24 History metformin 500 mg tablet,extended 2,000 mg (4 x 500 mg) PO QAM #360 07/28/23 03/07/24 Rx release 24 hr tabs evolocumab 140 mg/mL subcutaneous 140 mg subcut USEASDIRECTD 09/16/23 03/07/24 History pen injector (Repatha SureClick) metoprolol tartrate 50 mg tablet 50 mg PO BID 09/16/23 03/07/24 History doxycycline hyclate 100 mg tablet 100 mg PO BID 09/22/23 03/07/24 History magnesium oxide 400 mg PO QPM 09/22/23 03/07/24 History aspirin 81 mg tablet,delayed 81 mg PO QAM 10/07/23 03/07/24 History release (Adult Low Dose Aspirin) lactobacillus comb no.10 20 20,000 mmu cells PO QPM 10/08/23 03/07/24 History billion cell capsule (Probiotic) lisinopril 40 mg tablet 40 mg PO QAM #90 tabs 02/10/24 03/07/24 Rx gabapentin 400 mg capsule 800 mg (2 x 400 mg) PO TID 90 days 02/13/24 03/07/24 Rx #540 caps tramadol 50 mg tablet 100 mg (2 x 50 mg) PO BID PRN pain 02/13/24 03/07/24 Rx #120 tabs Past Med/Surg History Problem List (Updated 03/07/24 @ 21:13 by Orville Conklin MD) History of angioplasty of peripheral vessel History of right-sided carotid endarterectomy Infection of prosthetic left knee joint Symptomatic anemia Rotator cuff arthropathy of both shoulders Nonsustained ventricular tachycardia S/P ablation of atrial flutter Pulmonary nodule Ventricular tachycardia (paroxysmal) History of total knee arthroplasty (Acute) Peripheral vascular disease (Acute) CAD (coronary artery disease) Stenosis of both vertebral arteries Idiopathic polyneuropathy Stenosis of right internal carotid artery Hx of atrial flutter ablation done [place] [facility] [place] Diabetic neuropathy Nocturia Postlaminectomy syndrome of lumbar region Chronic anemia Statin intolerance Peripheral arterial disease Severe occlusive disease S/p L common femoral endarterectomy with bovine patch and lithotripsy of SFA and Popliteal arteries , 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 Nocturnal hypoxemia Ectopic atrial rhythm BPH (benign prostatic hyperplasia) (Acute) Osteoarthritis of right hip Trochanteric bursitis of left hip Presence of bare metal stent in anterior descending branch of left coronary artery Male erectile disorder of organic origin Vitamin D deficiency Diabetes mellitus, type 2 NIDDM Anxiety and depression Hypertension Sleep apnea "Mild to moderate"-cpap has not been using for sometimes/recently been trying to get back to using. Has trouble tolerating mask. Medical History Peripheral arterial disease Peripheral vascular disease Diabetes mellitus, type 2 History of anemia Stenosis of right internal carotid artery Ventricular tachycardia Sleep apnea Hx of solitary pulmonary nodule BPH (benign prostatic hyperplasia) Anxiety and depression Nocturia History of cardioversion Neuropathy History of chronic back pain History of COVID-19 History of anxiety Paroxysmal atrial flutter Bilateral carotid artery stenosis CAD in [place] artery History of gastric ulcer Degenerative disc disease GERD (gastroesophageal reflux disease) Hyperlipidemia Myocardial infarction Surgical History Hx of transesophageal echocardiography (GLADYS) for monitoring History of revision of total knee arthroplasty Hx of cardiac cath Presence of neurostimulator History of cardiac radiofrequency ablation S/P insertion of iliac artery stent History of endarterectomy Hx of cataract extraction History of anesthesia reaction Fusion of spine History of lumbar surgery History of total knee replacement Hx of transurethral resection of prostate History of esophagogastroduodenoscopy (EGD) History of colonoscopy History of nasal septoplasty History of heart artery stent Family History Mother Heart disease Diabetes Father Cancer Heart disease Brother Lung cancer Carotid artery stenosis Brother Diabetes Brother Coronary heart disease Sister No problems noted. Other No family history of adverse response to anesthesia Denies family history of Ovarian cancer Prostate cancer Myocardial infarction Breast cancer Colorectal cancer Social History Smoking Status: Current every day smoker Tobacco Type: Cigarettes Age Started Using Tobacco: 18; Cigarettes Per Day: 10; Second Hand Exposure: Yes; Do You Dip or Chew Tobacco: Yes (uses pouches, 2 cans/week; advised); Hx Alcohol Use: Yes Alcohol type: beer Alcohol type Comment: 6-8 beers Hx Substance Use: No Preferred Language: Slovak Communication Ability: Effective Visual Impairment: No Limitations Pantograph Transferrer Required: No Beliefs That Will Affect Care: None marital status: Current Living Situation: Spouse Current Living Situation Comment: Lives at home with current occupational status: retired How many Children do You have: 4 Feels Safe at Home: Yes Childhood Exposure to Second-Hand Smoke: Yes Diet: regular caffeine: Yes Dental Care, Regularly: Yes Physical Activity Frequency: Does not Exercise Seatbelt Use: always Sunscreen Use: No Assistive Devices: Glasses Review of Systems Review of Systems: The patient denies chest pain, palpitations, cough, sore throat, fevers, chills, sweats, nausea, vomiting, diarrhea , constipation, abdominal pain, pelvic pain, blood in urine or stool, dysuria, urinary frequency or urgency, lightheadedness, dizziness, headache, memory loss, loss of consciousness, rash, abnormal bruising or bleeding, focal or generalized weakness, numbness or tingling in arms, or night sweats. The review of systems is otherwise negative other than for that already noted above, and at least 10 systems have been reviewed. Physical Exam Physical Exam: The patient is awake, alert and oriented 3, well developed and well nourished, normocephalic and atraumatic, lying in bed and in no acute distress. HEENT--PERRL, EOMI, mucous membranes and oropharynx normal Neck--supple. No JVD. No bruits. Thyroid normal, trachea midline, no adenopathy. Heart--irregularly irregular. No murmurs, rubs or gallops. Lungs--clear bilaterally, no respiratory distress, no accessory muscle use. Abdomen--normal bowel sounds and soft. Nontender. Nondistended. Obese Extremities-- No edema. There are good distal pulses b/l. Dermatologic--normal skin turgor, normal color Neurologic--cranial nerves II through XII grossly intact. Rheumatologic--normal range of motion, except for left knee due to mild discomfort Psychiatric--normal affect. Results & Data Results & Data Vital Signs (Past 12 Hours) Vital Signs Temp Pulse Pulse Resp BP BP Pulse Ox 03/07/24 20:23 36.9 C 72 24 160/99 H 94 03/07/24 19:53 37.1 C 80 21 169/96 H 93 03/07/24 19:38 37.0 C 127 H 19 161/80 H 93 03/07/24 19:16 36.9 C 79 23 155/65 H 95 03/07/24 19:15 76 22 155/65 H 94 03/07/24 17:27 108 H 03/07/24 17:24 93 H 30 H 183/75 H 96 03/07/24 17:24 97 03/07/24 17:16 36.5 C 111 H 20 153/80 H 96 O2 Del Method 03/07/24 20:23 03/07/24 19:53 03/07/24 19:38 03/07/24 19:16 03/07/24 19:15 Room Air 03/07/24 17:27 03/07/24 17:24 Room Air 03/07/24 17:24 Room Air 03/07/24 17:16 Room Air Laboratory Results Laboratory Results WBC 9.92 K/ul (4.8-10.8) 03/07/24 17:32 RBC 2.45 M/uL (4.70-6.10) L 03/07/24 17:32 Hgb 7.7 g/dl (14.0-18.0) L 03/07/24 17:32 Hct 25.2 % (42.0-52.0) L 03/07/24 17:32 MCV 102.9 fL (80.0-100.0) H 03/07/24 17:32 MCH 31.4 pg (25.0-34.0) 03/07/24 17:32 MCHC 30.6 g/dL (32.0-36.0) L 03/07/24 17: RDW Std Deviation 72.8 fL (36.4-46.3) H 03/07/24 17: RDW Coeff of Kvng 19.2 % (11.5-14.5) H 03/07/24 17: Plt Count 438 K/uL (130-400) H 03/07/24 17: MPV 10.9 fL (9.4-12.4) 03/07/24 17: Immature Gran % (Auto) 0.8 % 03/07/24 17: Neut % (Auto) 77.9 % 03/07/24 17: Lymph % (Auto) 12.3 % 03/07/24 17: [place] % (Auto) 8.0 % 03/07/24 17: Eos % (Auto) 0.3 % 03/07/24 17: Baso % (Auto) 0.7 % 03/07/24 17: Neut # (Auto) 7.73 K/uL (1.40-6.50) H 03/07/24 17:32 Lymph # (Auto) 1.22 K/uL (1.20-3.40) 03/07/24 17:32 [place] # (Auto) 0.79 K/uL (0.11-0.59) H 03/07/24 17:32 Eos # (Auto) 0.03 K/uL (0.00-0.50) 03/07/24 17: Baso # (Auto) 0.07 K/uL (0.00-0.20) 03/07/24 17: Immature Gran # (Auto) 0.08 K/uL (0.01-0.20) 03/07/24 17: Absolute Nucleated RBC 0.16 K/uL (0.00-0.12) H 03/07/24 17: Nucleated RBC % (auto) 1.6 % 03/07/24 17:32 Polychromasia 1+ 03/07/24 17:32 Stomatocytes 1+ 03/07/24 17:32 Sodium 134 mmol/L (136-145) L 03/07/24 17:32 Potassium 3.7 mmol/L (3.5-5.1) 03/07/24 17:32 Chloride 102 mmol/L (98-107) 03/07/24 17:32 Carbon Dioxide 23 mmol/L (21-32) 03/07/24 17:32 Anion Gap 9 (3-11) 03/07/24 17:32 BUN 16 mg/dl (6-23) 03/07/24 17:32 Creatinine 0.94 mg/dl (0.6-1.4) 03/07/24 17:32 Est Cr Clr Drug Dosing 100.9 ml/min 03/07/24 17:32 eGFR 89.96 03/07/24 17:32 BUN/Creatinine Ratio 17.0 (10-20) 03/07/24 17:32 Glucose 152 mg/dl (70-99(Fasting)) H 03/07/24 17:32 Calcium 8.9 mg/dl (8.6-10.3) 03/07/24 17:32 Total Bilirubin 0.4 mg/dl (0.2-1.0) 03/07/24 17:32 AST 19 U/L (13-39) 03/07/24 17:32 ALT 28 U/L (7-52) 03/07/24 17:32 Alkaline Phosphatase 73 U/L (34-104) 03/07/24 17:32 Troponin I High Sens 18.5 pg/ml (0-20) 03/07/24 19:43 Total Protein 6.9 gm/dl (6.0-8.3) 03/07/24 17:32 Albumin 3.8 gm/dl (3.4-5.0) 03/07/24 17:32 Globulin 3.1 gm/dl (2.5-4.0) 03/07/24 17:32 Albumin/Globulin Ratio 1.2 (0.9-2) 03/07/24 17:32 Urine Color Yellow 03/07/24 18:08 Urine Appearance Clear (Clear) 03/07/24 18:08 Urine pH 6.0 (4.5-7.5) 03/07/24 18:08 Ur Specific Calcium 1.010 (1.000-1.030) 03/07/24 18:08 Urine Protein Negative (Negative) 03/07/24 18:08 Urine Glucose (UA) Negative (Negative) 03/07/24 18:08 Urine Ketones Negative (Negative) 03/07/24 18:08 Urine Blood Negative (Negative) 03/07/24 18:08 Urine Nitrite Negative (Negative) 03/07/24 18:08 Urine Bilirubin Negative (Negative) 03/07/24 18:08 Urine Urobilinogen Negative (Negative) 03/07/24 18:08 Ur Leukocyte Esterase Negative (Negative) 03/07/24 18:08 SARS-CoV-2 (PCR) NEGATIVE (Negative) 03/07/24 18:37 Influenza Type A (PCR) Negative (Neg) 03/07/24 18:37 Influenza Type B (PCR) Negative (Neg) 03/07/24 18:37 RSV (RT-PCR) Negative (Neg) 03/07/24 18:37 Blood Type O Positive 03/07/24 18:02 Antibody Screen NEGATIVE 03/07/24 18:02 Crossmatch See Detail 03/07/24 18:02 Impressions Chest X-Ray 03/07/24 17:51 XR chest 1V portable HISTORY: 63 years-old Male Dyspnea COMPARISON: 07/26/2023 TECHNIQUE: AP view of the chest FINDINGS: Cardiac silhouette is enlarged. No pneumothorax, pleural effusion, airspace consolidation or pulmonary edema. Degenerative changes of the shoulders and spine. Partially imaged stimulator leads overlie the mid thoracic spine. Cervical spinal fusion hardware. IMPRESSION: Cardiomegaly without acute process. ACT 112: Negative or not required by law. The above report was generated using voice recognition software. It may contain grammatical, syntax or spelling errors. Electronically signed by: Juan Cid M.D. 03/07/2024 6:16 PM Code Status & VTE Plan Code Status Full code VTE Prophylaxis Plan VTE Prophylaxis will be ordered: Yes PG Care Time/CCT Total # of Minutes Spent Total Time Spent with Patient: Total time spent is greater than 50% in coordination of care (as documented) at patient's floor/unit and/or counseling patient: Coding Level of Care Code 81577 INT INP/OBS CARE 3/75MIN Diagnoses Symptomatic anemia D64.9 Infection of prosthetic left knee joint T84.54XA Nonsustained ventricular tachycardia I47.29 CAD (coronary artery disease) I25.10 Hx of atrial flutter Z86.79 Postlaminectomy syndrome of lumbar region M96.1 Peripheral arterial disease I73.9 BPH (benign prostatic hyperplasia) N40.0 Anxiety and depression F41.9; F32.9 Sleep apnea G47.30 Primary hypertension I10 Hypertension type: primary hypertension History of right-sided carotid endarterectomy Z98.890 History of angioplasty of peripheral vessel Z98.62 (11) Hypertension Hypertension type: primary hypertension Qualified Code(s): I10 - Essential (primary) hypertension
[2024-03-07 21:13] LABS: Magnesium 1.8 mg/dl (1.7-2.4)
[2024-03-07] MEDS: POTASSIUM CHLORIDE CRTAB 20 MEQ TABCR PO STA (21:32)
[2024-03-07] MEDS ORDERED: GLUCOSE 10 TAB/TUBE PO PRN (22:16)
[2024-03-07] MEDS ORDERED: ACETAMINOPHEN 325 MG TAB PO PRN (22:16)
[2024-03-07] MEDS ORDERED: GLUCAGON FOR INJ 1 MG VIAL SQ PRN (22:16)
[2024-03-07] MEDS ORDERED: CARBOHYDRATES FOR HYPOGLYCEMIA PO PRN (22:16)
[2024-03-07] MEDS ORDERED: traMADol HCL 50 MG TABLET PO PRN (22:16)
[2024-03-07] MEDS ORDERED: GLUCOSE 40% GEL 15 GM TUBE PO PRN (22:16)
[2024-03-07] MEDS ORDERED: DEXTROSE 50% 50 ML SYRINGE IV PRN (22:16)
[2024-03-07] MEDS: ADVANCED PROBIOTIC 625 MG CAPSULE PO SCH (23:07)
[2024-03-07] MEDS: MAGNESIUM OXIDE 400 MG TAB PO SCH (23:07)
[2024-03-07] MEDS: METOPROLOL TARTRATE 50 MG TAB PO SCH (23:07)
[2024-03-07] MEDS: TAMSULOSIN HCL 0.4 MG CAP PO SCH (23:07)
[2024-03-07] MEDS: DOXYCYCLINE HYCLATE 100 MG CAP PO SCH (23:08)
[2024-03-07] MEDS: GABAPENTIN 800 MG TAB PO SCH (23:08)
[2024-03-07] MEDS: APIXABAN 5 MG TABLET PO SCH (23:08)
[2024-03-07] MEDS: INSULIN ASPART PER UNIT CHARGE SC SCH (23:13)
[2024-03-07] MEDS: MELATONIN 3 MG TAB PO PRN (23:24)
[2024-03-08 06:44] LABS: Basophils # (auto) 0.06 K/uL (0.00-0.20); Basophils % (auto) 0.9 %; Eosinophils # (auto) 0.06 K/uL (0.00-0.50); Eosinophils % (auto) 0.9 %; Hematocrit (blood only) 27.6 % (42.0-52.0); Hemoglobin 8.3 g/dl (14.0-18.0); Immature Granulocytes # (auto) 0.05 K/uL (0.01-0.20); Immature Granulocytes % (auto) 0.8 %; Lymphocytes # (auto) 1.09 K/uL (1.20-3.40); Mean Corpuscular Hemoglobin 31.4 pg (25.0-34.0); Mean Corpuscular Hgb Conc 30.1 g/dL (32.0-36.0); Mean Corpuscular Volume 104.5 fL (80.0-100.0); Mean Platelet Volume 10.8 fL (9.4-12.4); Monocytes # (auto) 0.72 K/uL (0.11-0.59); Monocytes % (auto) 11.2 %; Neutrophils # (auto) 4.44 K/uL (1.40-6.50); Neutrophils % (auto) 69.2 %; Nucleated RBC # (auto) 0.07 K/uL (0.00-0.12); Nucleated RBC % (auto) 1.1 %; Platelet Count 376 K/uL (130-400); RDW Coefficient of Variation 20.1 % (11.5-14.5); RDW Standard Deviation 75.1 fL (36.4-46.3); Red Blood Count 2.64 M/uL (4.70-6.10); White Blood Count 6.42 K/ul (4.8-10.8)
[2024-03-08 06:58] LABS: Albumin Level 3.6 gm/dl (3.4-5.0); Bilirubin,Total 0.4 mg/dl (0.2-1.0); Calcium 9.1 mg/dl (8.6-10.3); Potassium 4.6 mmol/L (3.5-5.1)
[2024-03-08 07:04] LABS: Albumin Globulin Ratio 1.2 (0.9-2); BUN Creatinine Ratio 20.5 (10-20); Creatinine Clr Calc Pharmacy 127.7 ml/min; Globulin 2.9 gm/dl (2.5-4.0); Total Protein 6.5 gm/dl (6.0-8.3)
[2024-03-08 07:39] LABS: Anisocytosis Present; Polychromasia 1+
[2024-03-08 07:51] LABS: Estimated Average Glucose 123 mg/dl; Hemoglobin A1C 5.9 % (4.5-5.6)
--- NOTE | 2024-03-08 08:23 | Electrocardiogram Report ---
Test Reason : Blood Pressure : */* mmHG Vent. Rate : 118 BPM Atrial Rate : * BPM P-R Int : * ms QRS Dur : 86 ms QT Int : 350 ms P-R-T Axes : * 20 2 degrees QTcB Int : 490 ms Atrial fibrillation with rapid ventricular response with premature ventricular or aberrantly conducte d complexes Nonspecific ST abnormality Abnormal ECG When compared with ECG of 26-Jul-2023 14:43, No significant change was found Confirmed by Chi Guido ([id number]) on 03/08/2024 8:23:17 AM Referred By: Confirmed By: Chi Guido
[2024-03-08 08:45] LABS: Troponin I High Sensitivity 13.9 pg/ml (0-20)
[2024-03-08] MEDS: CYANOCOBALAMIN (B-12) 500 MCG TABLET PO SCH (08:58)
[2024-03-08] MEDS: DULoxetine HCL 60 MG CAP PO SCH (08:58)
[2024-03-08] MEDS: CLOPIDOGREL BISULFATE 75 MG TAB PO SCH (08:58)
[2024-03-08] MEDS: ASPIRIN 81 MG ECTAB PO SCH (08:58)
[2024-03-08] MEDS: lisinopril 40 MG TAB PO SCH (08:58)
[2024-03-08] MEDS: PANTOprazole 40 MG TAB PO SCH (08:58)
[2024-03-08 09:11] LABS: Folate (Folic Acid),Ser orPlas > 22.30 ng/ml (>5.38)
[2024-03-08 09:12] LABS: Vitamin B12 1312 pg/ml (180-914)
[2024-03-08 11:02] LABS: C Reactive Protein 0.87 mg/dl (0-0.5)
--- NOTE | 2024-03-08 13:28 | Hospitalist Progress Note ---
Date of Service March 08, 2024 Assessment & Plan (1) Symptomatic anemia: Plan: Hb 7.7 at time of hospital admission Hb was 7.8 via [employer] system in mid-January his dyspnea only started 1-2 weeks making the anemia unlikely to be the PRIMARY lifter driver of his presentation [id number] the anemia certainly will exacerbate any underlying cardiopulmonary disease s/p 1 unit PRBCs overnight Hb today 8.3 he has macrocytosis (see below) he has Fe deficiency (see below) (2) Iron deficiency anemia: Plan: transferrin sat 5% ferritin 23 c/w severe FE deficiency he has been anemic for 5+ years, but there has been progression of such over the last 12+ months check a fecal occult -- certainly at risk of underlying GI bleeding in the setting of DAPT + Eliquis IV venofer 300mg x 1 today will repeat another dose of venofer tomorrow repeat CBC am of note - pt does have prior h/o gastric ulcer cont PPI once daily (3) Macrocytosis: Plan: despite the severe Fe deficiency he is not microcytic on CBC instead he is macrocytic on microscopy he has stomatocytes suspect macrocytosis is from chronic etoh abuse B12/folate wnl TSH wnl he was taking a B12 supplement at home - cont for now (4) Acute heart failure with preserved ejection fraction: Plan: pt's dyspnea, cough, etc may be due to acute diastolic CHF in the setting of severe anemia, +/- rapid a.fib/a.tach, potentially other factors [facility] consulted lasix administered by them re-eval tomorrow for ongoing need for diuresis [facility] limited echo ordered by [facility] previous echo 07/2023 - EF 50-55% (5) Atrial tachycardia, paroxysmal: Plan: multiple brief runs of a.tach (vs a.fib) on tele since admission cont metoprolol BID (6) Atrial fibrillation with rapid ventricular response: Plan: patient's admission EKG with a.fib with RVR he has prior h/o a.flutter (s/p ablation) and prior h/o PAF per records did patient develop a.fib in the last 1-2 weeks at home? if yes, did that precipitate his acute CHF and cardiopulmonary symptoms? cont Eliquis cont metoprolol consider outpatient monitoring to assess a.fib burden, etc. defer that decision to cardiology, however (7) History of right-sided carotid endarterectomy: Plan: right CEA on 01/20/2024 ([facility]) cont DAPT (8) Infection of prosthetic left knee joint: Plan: Left TKA periprosthetic infection/Enterococcus bacteremia- Completed 6 weeks of daptomycin IV, begun on 07/26/2023, and since that time has been on suppressive therapy with doxycycline 100 mg p.o. twice daily check a surveillance blood culture to ensure his fatigue, etc is not from occult bacteremia (has a neurostimulator device - if this device was infected you would expect blood cultures to be +) (9) S/P ablation of atrial flutter: Plan: history of such no a.flutter seen since admission (10) Pulmonary nodule: Plan: 02/10/[address]: "7 mm subsolid nodule within the right lung apex which contains a 3 mm solid component. This has increased in size compared to 10/14/2022 chest CTA. Therefore, this is suspicious for a primary bronchogenic malignancy along the adenocarcinoma spectrum. Pulmonary consultation and [address] follow-up recommended for further evaluation." refer to [facility] (or [facility]) pulmonary for this certainly if there is lung ca this could be contributing to anemia, fatigue, etc. (11) CAD (coronary artery disease): Plan: h/o AR late h/o LAD stents he was having chest tightness/discomfort last 3 days prior to admission perhaps his anemia along with dysrhythmia unmasked ischemia?? defer work-up to [facility] cont BB cont aspirin cont plavix statin intolerant (12) Diabetes mellitus, type 2: Plan: a1c 5.9% hold metformin novolog SSI BSGs ac/hs (13) Hypertension: Plan: cont metoprolol cont lisinopril cont flomax (mainly for BPH, however) (14) Alcohol abuse: Plan: 4-6 beers/day no prior h/o etoh withdrawal add thiamine 200mg BID B12/folate levels wnl thus far no signs of withdrawal but low threshold to initiate AWSS protocol his alcohol abuse is likely contributing to his macrocytic anemia, could contribute to CHF decompensation, etc. Plan DVT proph - Eliquis Admission and Anticipated Discharge Date Admission Date: March 07, 2024 Subjective patient reports his dyspnea & fatigue are better today s/p 1 unit PRBCs we had lengthy discussion about the dyspnea -- present 1-2 weeks prior to admission had dyspnea at rest and with exertion some cough with sputum production for about 3 days also about 3-4 days ago he had had intermittent chest "tightness" typically with ambulation did not have the chest tightness at rest he cannot recall if the chest tightness in the last few days was similar to when he had coronary stents years ago denies any melena stools denies BRBPR we discussed that he was severely anemic in January as well but he did not have dyspnea then I mentioned he was in a.fib when he arrived at [facility] yesterday denies palpitations despite the a.fib seen since admission numerous brief episodes of atach vs afib otherwise NSR finally, admits to 6 pack of beer daily at home no h/o withdrawal Review of Systems Review of Systems: gen - fatigue cv - see subjective portion of note; +edema (mainly LLE); no PND pulm - cough/congestion/dyspnea/dyspnea on exertion GI - no abd pain or N/V - no LUTS Physical Exam Physical Exam: gen - NAD, pleasant; laid flat in bed w/o orthopnea neck - no obvious JVD mouth - MMM skin - generalized pallor heart - RRR, s1 s2 lungs - CTA b/l, no rales or wheeze abd - soft NT ND BS+ ext - trace edema LLE, no edema RLE; pulses 2+ b/l psych - a/o x 3 Results & Data Results & Data Vital Signs (Past 12 Hours) Vital Signs Temp Pulse Pulse Resp BP BP Pulse Ox 03/08/24 11:26 36.4 C L 81 20 144/85 H 95 03/08/24 07:28 36.6 C 65 20 161/66 H 96 03/08/24 07:25 62 03/08/24 05:41 61 03/08/24 03:15 36.9 C 116 H 16 137/74 95 O2 Del Method 03/08/24 11:26 Room Air 03/08/24 07:28 Room Air 03/08/24 07:25 03/08/24 05:41 03/08/24 03:15 Room Air Laboratory Results Laboratory Results - last 24 hr 03/07/24 03/07/24 03/07/24 17:32 18:02 18:08 WBC 9.92 RBC 2.45 L Hgb 7.7 L Hct 25.2 L MCV 102.9 H MCH 31.4 MCHC 30.6 L RDW Std Deviation 72.8 H RDW Coeff of Kvng 19.2 H Plt Count 438 H MPV 10.9 Immature Gran % (Auto) 0.8 Neut % (Auto) 77.9 Lymph % (Auto) 12.3 [place] % (Auto) 8.0 Eos % (Auto) 0.3 Baso % (Auto) 0.7 Neut # (Auto) 7.73 H Lymph # (Auto) 1.22 [place] # (Auto) 0.79 H Eos # (Auto) 0.03 Baso # (Auto) 0.07 Immature Gran # (Auto) 0.08 Absolute Nucleated RBC 0.16 H Nucleated RBC % (auto) 1.6 Polychromasia 1+ Anisocytosis Stomatocytes 1+ ESR Sodium 134 L Potassium 3.7 Chloride 102 Carbon Dioxide 23 Anion Gap 9 BUN 16 Creatinine 0.94 Est Cr Clr Drug Dosing 100.9 eGFR 89.96 BUN/Creatinine Ratio 17.0 Glucose 152 H POC Glucose Estimat Average Glucose Hemoglobin A1c Calcium 8.9 Magnesium 1.8 Iron TIBC Unsaturated IBC Transferrin % Sat Ferritin Total Bilirubin 0.4 AST 19 ALT 28 Alkaline Phosphatase 73 Troponin I High Sens 20.3 H C-Reactive Protein Total Protein 6.9 Albumin 3.8 Globulin 3.1 Albumin/Globulin Ratio 1.2 Vitamin B12 Folate Urine Color Yellow Urine Appearance Clear Urine pH 6.0 Ur Specific [place] 1.010 Urine Protein Negative Urine Glucose (UA) Negative Urine Ketones Negative Urine Blood Negative Urine Nitrite Negative Urine Bilirubin Negative Urine Urobilinogen Negative Ur Leukocyte Esterase Negative SARS-CoV-2 (PCR) Influenza Type A (PCR) Influenza Type B (PCR) RSV (RT-PCR) Blood Type O Positive Antibody Screen NEGATIVE Crossmatch See Detail 03/07/24 03/07/24 03/07/24 18:37 19:43 23:10 WBC RBC Hgb Hct MCV MCH MCHC RDW Std Deviation RDW Coeff of Kvng Plt Count MPV Immature Gran % (Auto) Neut % (Auto) Lymph % (Auto) [place] % (Auto) Eos % (Auto) Baso % (Auto) Neut # (Auto) Lymph # (Auto) [place] # (Auto) Eos # (Auto) Baso # (Auto) Immature Gran # (Auto) Absolute Nucleated RBC Nucleated RBC % (auto) Polychromasia Anisocytosis Stomatocytes ESR Sodium Potassium Chloride Carbon Dioxide Anion Gap BUN Creatinine Est Cr Clr Drug Dosing eGFR BUN/Creatinine Ratio Glucose POC Glucose 109 H Estimat Average Glucose Hemoglobin A1c Calcium Magnesium Iron TIBC Unsaturated IBC Transferrin % Sat Ferritin Total Bilirubin AST ALT Alkaline Phosphatase Troponin I High Sens 18.5 C-Reactive Protein Total Protein Albumin Globulin Albumin/Globulin Ratio Vitamin B12 Folate Urine Color Urine Appearance Urine pH Ur Specific [place] Urine Protein Urine Glucose (UA) Urine Ketones Urine Blood Urine Nitrite Urine Bilirubin Urine Urobilinogen Ur Leukocyte Esterase SARS-CoV-2 (PCR) NEGATIVE Influenza Type A (PCR) Negative Influenza Type B (PCR) Negative RSV (RT-PCR) Negative Blood Type Antibody Screen Crossmatch 03/08/24 03/08/24 03/08/24 05:59 07:27 08:05 WBC 6.42 RBC 2.64 L Hgb 8.3 L Hct 27.6 L MCV 104.5 H MCH 31.4 MCHC 30.1 L RDW Std Deviation 75.1 H RDW Coeff of Kvng 20.1 H Plt Count 376 MPV 10.8 Immature Gran % (Auto) 0.8 Neut % (Auto) 69.2 Lymph % (Auto) 17.0 [place] % (Auto) 11.2 Eos % (Auto) 0.9 Baso % (Auto) 0.9 Neut # (Auto) 4.44 Lymph # (Auto) 1.09 L [place] # (Auto) 0.72 H Eos # (Auto) 0.06 Baso # (Auto) 0.06 Immature Gran # (Auto) 0.05 Absolute Nucleated RBC 0.07 Nucleated RBC % (auto) 1.1 Polychromasia 1+ Anisocytosis Present Stomatocytes ESR Cancelled Sodium 139 Potassium 4.6 D Chloride 107 Carbon Dioxide 25 Anion Gap 7 BUN 15 Creatinine 0.73 Est Cr Clr Drug Dosing 127.7 eGFR 100.97 BUN/Creatinine Ratio 20.5 H Glucose 117 H POC Glucose 130 H Estimat Average Glucose 123 Hemoglobin A1c 5.9 H Calcium 9.1 Magnesium 2.0 Iron TIBC Unsaturated IBC Transferrin % Sat Ferritin Total Bilirubin 0.4 AST 18 ALT 24 Alkaline Phosphatase 67 Troponin I High Sens 13.9 D C-Reactive Protein Total Protein 6.5 Albumin 3.6 Globulin 2.9 Albumin/Globulin Ratio 1.2 Vitamin B12 1312 H Folate > 22.30 Urine Color Urine Appearance Urine pH Ur Specific [place] Urine Protein Urine Glucose (UA) Urine Ketones Urine Blood Urine Nitrite Urine Bilirubin Urine Urobilinogen Ur Leukocyte Esterase SARS-CoV-2 (PCR) Influenza Type A (PCR) Influenza Type B (PCR) RSV (RT-PCR) Blood Type Antibody Screen Crossmatch 03/08/24 03/08/24 03/08/24 10:08 10:14 11:25 WBC RBC Hgb Hct MCV MCH MCHC RDW Std Deviation RDW Coeff of Kvng Plt Count MPV Immature Gran % (Auto) Neut % (Auto) Lymph % (Auto) [place] % (Auto) Eos % (Auto) Baso % (Auto) Neut # (Auto) Lymph # (Auto) [place] # (Auto) Eos # (Auto) Baso # (Auto) Immature Gran # (Auto) Absolute Nucleated RBC Nucleated RBC % (auto) Polychromasia Anisocytosis Stomatocytes ESR 26 H Sodium Potassium Chloride Carbon Dioxide Anion Gap BUN Creatinine Est Cr Clr Drug Dosing eGFR BUN/Creatinine Ratio Glucose POC Glucose 119 H Estimat Average Glucose Hemoglobin A1c Calcium Magnesium Iron 21 L TIBC 447 Unsaturated IBC 426 H Transferrin % Sat 5 L Ferritin 23.0 Total Bilirubin AST ALT Alkaline Phosphatase Troponin I High Sens C-Reactive Protein 0.87 H Total Protein Albumin Globulin Albumin/Globulin Ratio Vitamin B12 Folate Urine Color Urine Appearance Urine pH Ur Specific [place] Urine Protein Urine Glucose (UA) Urine Ketones Urine Blood Urine Nitrite Urine Bilirubin Urine Urobilinogen Ur Leukocyte Esterase SARS-CoV-2 (PCR) Influenza Type A (PCR) Influenza Type B (PCR) RSV (RT-PCR) Blood Type Antibody Screen Crossmatch PG Care Time/CCT Total # of Minutes Spent Total Time Spent with Patient: Total time spent is greater than 50% in coordination of care (as documented) at patient's floor/unit and/or counseling patient: Coding Level of Care Code 42024 SUB INP/OBS CARE 3/50MIN Diagnoses Symptomatic anemia D64.9 Iron deficiency anemia D50.9 Macrocytosis D75.89 Acute heart failure with preserved ejection fraction I50.31 Atrial tachycardia, paroxysmal I47.19 Atrial fibrillation with rapid ventricular response I48.91 History of right-sided carotid endarterectomy Z98.890 Infection of prosthetic left knee joint T84.54XA S/P ablation of atrial flutter Z98.890; Z86.79 Pulmonary nodule R91.1 CAD (coronary artery disease) I25.10 Diabetes mellitus, type 2 E11.9 Primary hypertension I10 Hypertension type: primary hypertension Alcohol abuse F10.10 (13) Hypertension Hypertension type: primary hypertension Qualified Code(s): I10 - Essential (primary) hypertension
[2024-03-08] MEDS: IRON SUCROSE 300 MG in SODIUM CHLORIDE 0.9% 250 ML IV ONE (14:17)
--- NOTE | 2024-03-08 15:06 | Cardiology Consultation ---
Date of Consultation March 08, 2024 Assessment & Plan (1) Symptomatic anemia: (2) Atrial tachycardia, paroxysmal: (3) S/P ablation of atrial flutter: (4) Acute heart failure with preserved ejection fraction: Supervising Physician Co-Signing Physician Notes Attending Staff: * Patient seen and evaluated with AP Staff * Concur with Observations and Plans 63 yo man presenting with fatigue and dyspnea x 2 weeks Consultation for possible Afib * HgB 7.7 * + Significant Peripheral Vascular Disease * R - CEA (12/2023) * L - Leg BUYERS' AGENT (12/2023) * Iliac Artery - BUYERS' AGENT/Stent (12/2022) * Concerns for repeat Afib * Aflutter Ablation in 01/2023 * LVEF 55%, -mild to moderate, MR - mild to moderate (07/2023) Plans: * Limited ECHO - eval LVEF, , IVC * Check ProBNP * Lasix 40 mg IV x 1 * K+ goal 4.5-5 * Mag goal >2 * Unclear that patient is in or had afib as part of the presentation * Continue DOAC * On ASa/Plavix * Check for potential sites of bleeding given that he is on triple therapy for anticoagulation * JJ evaluation * PFTs as an outpt * Walking oximetry in hospital * Continue Telemetry * Stop Lopresor * Start Toprol XL 75 mg po BID Suhail Eng History of Present Illness Reason for Consultation: Atrial flutter Requesting Physician: Dr. Fermin Attending Physician: Dr. Suhail Eng History of Present Illness Patient is a complex 63 year old male who presented to [facility] with complaints of fatigue, SOB, myalgias over the last 1-2 weeks. Upon admission, hbg was found to be 7.7. He was treated with 1 unit PRBC's in the ER. Hbg improved to 8.3 this morning. Patient with recent vascular surgery. Hbg was in the 7-8 range since December 2023. He was to start iron supplementation but apparently was not taking. Upon admission, EKG demonstrated NSR with possible brief runs of atrial tach vs atrial fib. Patient had self reduced his metoprolol several weeks ago but then at f/u appt metoprolol succinate was increased to 50 mg BID> He is on chronic triple therapy given recent vascular interventions with ASA, Plavix and Eliquis for anticoagulation/stroke prophylaxis. Hs troponin unremarkable x2 since admission. Negative viral panel He admits to orthopnea and weight gain for several weeks. Does not take diuretics as an outpatient History is complex and includes: 1. ASCVD Status post anterolateral IL in June 2007 Catheterization at the time of the IL revealed a normal left main, 100% mid-LAD occlusion, luminal irregularities of the left circumflex and ramus intermedius, large caliber right coronary artery with 30% narrowing in the midvessel. At that time patient underwent PCI with 2 bare metal stents. 2. Preserved LV systolic function 3. Aortic stenosis mild to moderate per echo in 07/2023 4. Mitral regurgitation 5. Paroxysmal atrial flutter Status post January 2021 cardioversion Status post flutter ablation at [facility] in March 2023 6. Nonsustained ventricular tachycardia when hospitalized with a septic left knee, bacteremia 7. Hypertension, hypertensive heart disease 8. Dyslipidemia 9. History of statin intolerance, severe myalgias 10. Type 2 diabetes mellitus with neuropathy 11. PVD with Vertebral artery stenosis 12. -Bilateral internal carotid artery disease 13. -Status post bilateral common iliac artery angioplasty and stents in December 2022 14. -Status post angioplasty of the left superficial femoral and popliteal artery due to critical left lower extremity limb ischemia on December 31, 2023 15. -Status pos right carotid endarterectomy with reimplantation and placement of a pericardial patch for high-grade right internal carotid artery stenosis on January 20, 2024 16. Untreated obstructive sleep apnea 17. Nocturnal hypoxemia 18. Longstanding tobacco and alcohol use/abuse 19. COPD 20. Pulmonary nodule 21. GERD 22. Gastric ulcer 23. Iron deficiency anemia 24. Lumbar spine stenosis status post lumbar spine decompression and fusion by Dr. Khalil in September 2019. 25. Status post nerve stimulator implantation, T8-T10, rechargeable battery, August 2022 26. BPH 27. Osteoarthritis 28. Erectile dysfunction 29. Vitamin-D deficiency 30. Anxiety and depression 31. Status post transurethral resection of the prostate Allergies Allergy/AdvReac Type Severity Reaction Status Date / Time latex Allergy Unknown Rash Verified 02/09/24 13:59 Penicillins Allergy Unknown Rash Verified 02/09/24 13:59 adhesive AdvReac Unknown Rash Verified 02/09/24 13:59 dronedarone AdvReac Unknown Fatigued Verified 02/09/24 13:59 gemfibrozil AdvReac Unknown BODY ACHES Verified 02/09/24 13:59 NSAIDS (Non-Steroidal AdvReac Unknown TOLD NOT Verified 02/09/24 13:59 Anti-Inflamma TO TAKE - HX STOMACH ULCER [id number] Reductase AdvReac Unknown body aches Verified 02/09/24 13:59 Inhibitor [[id number] Reductase Inhibitor] Home Medications Medication Instructions Recorded Confirmed Type acetaminophen 650 mg 650 mg PO Q8H PRN ARTHRITIS PAIN 12/06/20 03/07/24 History tablet,extended release cyanocobalamin (vitamin B-12) 1,000 mcg PO QAM 08/26/22 03/07/24 History 1,000 mcg tablet (Vitamin B-12) glimepiride 1 mg tablet 1 mg PO QAM #90 tabs 02/03/23 03/07/24 Rx apixaban 5 mg tablet (Eliquis) 5 mg PO BID #180 tabs 06/30/23 03/07/24 Rx duloxetine 60 mg capsule,delayed 60 mg PO QAM #90 caps 07/02/23 03/07/24 Rx release (Cymbalta) pantoprazole 40 mg tablet,delayed 40 mg PO QAM #90 tabs 07/02/23 03/07/24 Rx release clopidogrel 75 mg tablet (Plavix) 75 mg PO QAM 07/18/23 03/07/24 History tamsulosin 0.4 mg capsule 0.4 mg PO HS 07/18/23 03/07/24 History metformin 500 mg tablet,extended 2,000 mg (4 x 500 mg) PO QAM #360 07/28/23 03/07/24 Rx release 24 hr tabs evolocumab 140 mg/mL subcutaneous 140 mg subcut USEASDIRECTD 09/16/23 03/07/24 History pen injector (Repatha SureClick) metoprolol tartrate 50 mg tablet 50 mg PO BID 09/16/23 03/07/24 History doxycycline hyclate 100 mg tablet 100 mg PO BID 09/22/23 03/07/24 History magnesium oxide 400 mg PO QPM 09/22/23 03/07/24 History aspirin 81 mg tablet,delayed 81 mg PO QAM 10/07/23 03/07/24 History release (Adult Low Dose Aspirin) lactobacillus comb no.10 20 20,000 mmu cells PO QPM 10/08/23 03/07/24 History billion cell capsule (Probiotic) lisinopril 40 mg tablet 40 mg PO QAM #90 tabs 02/10/24 03/07/24 Rx gabapentin 400 mg capsule 800 mg (2 x 400 mg) PO TID 90 days 02/13/24 03/07/24 Rx #540 caps tramadol 50 mg tablet 100 mg (2 x 50 mg) PO BID PRN pain 02/13/24 03/07/24 Rx #120 tabs Patient History Medical History Peripheral arterial disease Peripheral vascular disease Diabetes mellitus, type 2 History of anemia Stenosis of right internal carotid artery Ventricular tachycardia Sleep apnea Hx of solitary pulmonary nodule BPH (benign prostatic hyperplasia) Anxiety and depression Nocturia History of cardioversion Neuropathy History of chronic back pain History of COVID-19 History of anxiety Paroxysmal atrial flutter Bilateral carotid artery stenosis CAD in [place] artery History of gastric ulcer Degenerative disc disease GERD (gastroesophageal reflux disease) Hyperlipidemia Myocardial infarction Surgical History Hx of transesophageal echocardiography (GLADYS) for monitoring History of revision of total knee arthroplasty Hx of cardiac cath Presence of neurostimulator History of cardiac radiofrequency ablation S/P insertion of iliac artery stent History of endarterectomy Hx of cataract extraction History of anesthesia reaction Fusion of spine History of lumbar surgery History of total knee replacement Hx of transurethral resection of prostate History of esophagogastroduodenoscopy (EGD) History of colonoscopy History of nasal septoplasty History of heart artery stent Family History Mother Heart disease Diabetes Father Cancer Heart disease Brother Lung cancer Carotid artery stenosis Brother Diabetes Brother Coronary heart disease Sister No problems noted. Other No family history of adverse response to anesthesia Denies family history of Ovarian cancer Prostate cancer Myocardial infarction Breast cancer Colorectal cancer Social History Smoking Status: Current every day smoker Tobacco Type: Cigarettes and Smokeless Tobacco (Dip or Chew) Age Started Using Tobacco: 18; Cigarettes Per Day: 10; Second Hand Exposure: Yes; Do You Dip or Chew Tobacco: Yes; Hx Alcohol Use: Yes Alcohol type: beer Alcohol type Comment: 6-8 beers Hx Substance Use: No Preferred Language: Divehi Communication Ability: Effective Visual Impairment: No Limitations Chili [employer]inder Required: No Beliefs That Will Affect Care: None marital status: Current Living Situation: Spouse Current Living Situation Comment: Lives at home with current occupational status: retired How many Children do You have: 4 Feels Safe at Home: Yes Safety Concerns: Feels Safe At This Time Childhood Exposure to Second-Hand Smoke: Yes Diet: regular caffeine: Yes Dental Care, Regularly: Yes Physical Activity Frequency: Does not Exercise Seatbelt Use: always Sunscreen Use: No Assistive Devices: Cane and Scooter/Electric Scooter Review of Systems Review of Systems: All systems reviewed & are unremarkable except as noted in HPI & below Physical Exam Physical Exam: Obese JVP 14 cmH20 S1S22/6 Systolic [place] CTA B No C/C/E Warm and perfusing Results & Data Vital Signs (Past 12 Hours) Vital Signs Temp Pulse Pulse Resp BP BP Pulse Ox 03/08/24 11:26 36.4 C L 81 20 144/85 H 95 03/08/24 07:28 36.6 C 65 20 161/66 H 96 03/08/24 07:25 62 03/08/24 05:41 61 03/08/24 03:15 36.9 C 116 H 16 137/74 95 O2 Del Method 03/08/24 11:26 Room Air 03/08/24 07:28 Room Air 03/08/24 07:25 03/08/24 05:41 03/08/24 03:15 Room Air Laboratory Results Cardiac Enzymes 03/07/24 03/07/24 03/08/24 Range/Units 17:32 19:43 05:59 AST 19 18 (13-39) U/L Troponin I High Sens 20.3 H 18.5 13.9 D (0-20) pg/ml CBC 03/07/24 03/08/24 Range/Units 17:32 05:59 WBC 9.92 6.42 (4.8-10.8) K/ul RBC 2.45 L 2.64 L (4.70-6.10) M/uL Hgb 7.7 L 8.3 L (14.0-18.0) g/dl Hct 25.2 L 27.6 L (42.0-52.0) % Plt Count 438 H 376 (130-400) K/uL Neut # (Auto) 7.73 H 4.44 (1.40-6.50) K/uL Lymph # (Auto) 1.22 1.09 L (1.20-3.40) K/uL [place] # (Auto) 0.79 H 0.72 H (0.11-0.59) K/uL Eos # (Auto) 0.03 0.06 (0.00-0.50) K/uL Baso # (Auto) 0.07 0.06 (0.00-0.20) K/uL Comprehensive Metabolic Panel 03/07/24 03/08/24 Range/Units 17:32 05:59 Sodium 134 L 139 (136-145) mmol/L Potassium 3.7 4.6 D (3.5-5.1) mmol/L Chloride 102 107 (98-107) mmol/L Carbon Dioxide 23 25 (21-32) mmol/L BUN 16 15 (6-23) mg/dl Creatinine 0.94 0.73 (0.6-1.4) mg/dl Glucose 152 H 117 H (70-99(Fasting)) mg/dl Calcium 8.9 9.1 (8.6-10.3) mg/dl AST 19 18 (13-39) U/L ALT 28 24 (7-52) U/L Alkaline Phosphatase 73 67 (34-104) U/L Total Protein 6.9 6.5 (6.0-8.3) gm/dl Albumin 3.8 3.6 (3.4-5.0) gm/dl Intake and Output 03/08/24 03/08/24 03/08/24 06:59 14:59 22:59 Intake Total 250 / 534 830 / 830 Output Total 2250 / 2250 1100 / 1100 Balance -2000 / -1716 -270 / -270 Intake: Oral 250 / 250 830 / 830 Output: Urine 2250 / 2250 1100 / 1100 Other: Weight 114.3 kg Weight Measurement Method Built in [facility] Diagnostic Findings Telemetry reviewed: NSR with frequent PAC's, possible short runs of atrial tach EKG reviewed from 03/07/24: Appears to be NSR with short runs of atrial fib vs atrial tach Chest X-Ray 03/07/24 17:51 XR chest 1V portable HISTORY: 63 years-old Male Dyspnea COMPARISON: 07/26/2023 TECHNIQUE: AP view of the chest FINDINGS: Cardiac silhouette is enlarged. No pneumothorax, pleural effusion, airspace consolidation or pulmonary edema. Degenerative changes of the shoulders and spine. Partially imaged stimulator leads overlie the mid thoracic spine. Cervical spinal fusion hardware. IMPRESSION: Cardiomegaly without acute process. ACT 112: Negative or not required by law. The above report was generated using voice recognition software. It may contain grammatical, syntax or spelling errors. Electronically signed by: Juan Cid M.D. 03/07/2024 6:16 PM Prior outside data reviewed: echo reviewed from 07/27/23: Normal LVEF 50-55% LV wall motion is normal mild LVH Mild to moderate Mild to moderate MR Compared with prior study in Feb 2023 - mild to moderate and MR now noted. Medications Administered Current Inpatient Medications Acetaminophen (Acetaminophen 325 Mg Tab) 650 mg PO Q4H PRN PRN Reason: Pain or Fever Stop: 04/06/24 22:15 Apixaban (Apixaban 5 Mg Tablet) 5 mg PO BID [facility] Stop: 04/06/24 22:15 Last Admin: 03/08/24 08:57 Dose: 5 mg Aspirin (Aspirin 81 Mg Ectab) 81 mg PO QAM [facility] Stop: 04/07/24 08:59 Last Admin: 03/08/24 08:58 Dose: 81 mg Clopidogrel Bisulfate (Clopidogrel Bisulfate 75 Mg Tab) 75 mg PO QAM [facility] Stop: 04/07/24 08:59 Last Admin: 03/08/24 08:58 Dose: 75 mg Cyanocobalamin (Cyanocobalamin (B-12) 500 Mcg Tablet) 1,000 mcg PO QAM [facility] Stop: 04/07/24 08:59 Last Admin: 03/08/24 08:58 Dose: 1,000 mcg Dextrose (Dextrose 50% 50 Ml Syringe) 25 - 50 ml IV UD PRN; Protocol PRN Reason: Hypoglycemia Protocol Stop: 04/06/24 22:15 Doxycycline Hyclate (Doxycycline Hyclate 100 Mg Cap) 100 mg PO BID [facility] Stop: 04/06/24 22:15 Last Admin: 03/08/24 08:57 Dose: 100 mg Duloxetine HCl (Duloxetine Hcl 60 Mg Cap) 60 mg PO QAM [facility] Stop: 04/07/24 08:59 Last Admin: 03/08/24 08:58 Dose: 60 mg Gabapentin (Gabapentin 800 Mg Tab) 800 mg PO TID [facility] Stop: 04/06/24 22:15 Last Admin: 03/08/24 14:17 Dose: 800 mg Glucagon (Glucagon For Inj 1 Mg Vial) 1 mg SQ UD PRN; Protocol PRN Reason: Hypoglycemia Protocol Stop: 04/06/24 22:15 Glucose (Glucose 40% Gel 15 Gm Tube) 15 - 30 gm PO UD PRN; Protocol PRN Reason: Hypoglycemia Protocol Stop: 04/06/24 22:15 Glucose (Glucose 10 Tab/Tube) 4 - 8 tab PO UD PRN; Protocol PRN Reason: Hypoglycemia Treatment Stop: 04/06/24 22:15 Insulin Aspart (Insulin Aspart Per Unit Charge) 0 units SC ACHS [facility] Stop: 04/06/24 22:15 Last Admin: 03/08/24 12:23 Dose: 1 units Lactobacillus Acidophilus (Advanced Probiotic 625 Mg Capsule) 1,250 mg PO QPM [facility] Stop: 04/06/24 22:15 Last Admin: 03/07/24 23:07 Dose: 1,250 mg Lisinopril (Lisinopril 40 Mg Tab) 40 mg PO QAM [facility] Stop: 04/07/24 08:59 Last Admin: 03/08/24 08:58 Dose: 40 mg Magnesium Oxide (Magnesium Oxide 400 Mg Tab) 400 mg PO QPM [facility] Stop: 04/06/24 22:15 Last Admin: 03/07/24 23:07 Dose: 400 mg Melatonin (Melatonin 3 Mg Tab) 6 mg PO HS PRN PRN Reason: Sleep Stop: 04/06/24 23:04 Last Admin: 03/07/24 23:24 Dose: 6 mg Metoprolol Tartrate (Metoprolol Tartrate 50 Mg Tab) 50 mg PO BID [facility] Stop: 04/06/24 22:15 Last Admin: 03/08/24 08:57 Dose: 50 mg Miscellaneous (Carbohydrates For Hypoglycemia ) 15 - 30 gm PO UD PRN PRN Reason: Hypoglycemia Protocol Stop: 04/06/24 22:15 Ondansetron HCl (Ondansetron Inj 2 Mg/Ml 2 Ml Vial) 4 mg IV Q6H PRN PRN Reason: Nausea Stop: 04/06/24 22:15 Pantoprazole Sodium (Pantoprazole 40 Mg Tab) 40 mg PO QAM [facility] Stop: 04/07/24 08:59 Last Admin: 03/08/24 08:58 Dose: 40 mg Tamsulosin HCl (Tamsulosin Hcl 0.4 Mg Cap) 0.4 mg PO [facility] Stop: 04/06/24 22:15 Last Admin: 03/07/24 23:07 Dose: 0.4 mg Tramadol HCl (Tramadol Hcl 50 Mg Tablet) 100 mg PO BID PRN PRN Reason: Moderate Pain (Scale 4, 5, 6) Stop: 04/06/24 22:15
[2024-03-08] MEDS: FUROSEMIDE 40 MG/4 ML VIAL IV ONE (16:49)
[2024-03-08] MEDS: ONDANSETRON INJ 2 MG/ML 2 ML VIAL IV PRN (21:04)
[2024-03-08] MEDS: METOPROLOL SUCC 50MG EXT REL TAB PO SCH (21:11)
[2024-03-08] MEDS: diphenhydrAMINE Capsule 25 MG CAP PO ONE (23:28)
[2024-03-09 07:02] LABS: Hematocrit (blood only) 29.5 % (42.0-52.0); Hemoglobin 9.1 g/dl (14.0-18.0)
[2024-03-09 07:18] LABS: BUN Creatinine Ratio 24.4 (10-20); Calcium 9.6 mg/dl (8.6-10.3); Creatinine Clr Calc Pharmacy 119.7 ml/min; Potassium 4.6 mmol/L (3.5-5.1)
[2024-03-09] MEDS: IRON SUCROSE 300 MG in SODIUM CHLORIDE 0.9% 250 ML IV ONE (07:57)
[2024-03-09] MEDS: THIAMINE HCL 100 MG TAB PO SCH (07:59)
--- NOTE | 2024-03-09 08:03 | Cardiology Progress Note ---
Date of Service March 09, 2024 Assessment & Plan (1) Acute heart failure with preserved ejection fraction: (2) Symptomatic anemia: Plan 63 yo man presenting with fatigue and dyspnea x 2 weeks Consultation for possible Afib * HgB 7.7 * + Significant Peripheral Vascular Disease * R - CEA (12/2023) * L - Leg LUNCHROOM OPERATOR (12/2023) * Iliac Artery - LUNCHROOM OPERATOR/Stent (12/2022) * Concerns for repeat Afib * Aflutter Ablation in 01/2023 * LVEF 55%, -mild to moderate, MR - mild to moderate (07/2023) Plans: * ECHO - LVEF 55-60%, - mild to moderate, MR mild to moderate, IVC - not dilated * ProBNP - 262 * Lasix 40 mg IV x 1 - diuresed overnight * STOP IV LASIX * START Lasix 20 mg po per day * K+ goal 4.5-5 * Mag goal >2 * 4 gm Magnesium Sulfate - this will help with the PAC burden * Unclear that patient is in or had afib as part of the presentation * Continue DOAC * On ASA/Plavix * Check for potential sites of bleeding given that he is on triple therapy for anticoagulation * JJ evaluation as an outpt * PFTs as an outpt * Walking oximetry in hospital * Telemetry - reviewed. Sinus with PACs * Lopressor (OFF) * Continue Toprol XL - increase to 75 mg po BID * SBP 150's mmHg - pt is Diabetic * Consider ARB if patient's SBP >140 mmHg on higher dose of Toprol * Please call back with additional questions Suhail Eng Admission and Anticipated Discharge Date Admission Date: March 07, 2024 Subjective Events Overnight: * Diuresed * 03/08/24 08:01 - 03/09/24 08:01 Total [id number] mL Total [id number] mL Balance-1665 mL Subjective: * Breathing improved Review of Systems Review of Systems: All systems reviewed & are unremarkable except as noted in HPI & below Physical Exam Physical Exam: Obese JVP at base of neck S1S2 2/6 systolic murmur CTA B No C/C/E - warm and perfused Results & Data Vital Signs (Past 12 Hours) Vital Signs Temp Pulse Pulse Resp BP BP Pulse Ox 03/09/24 07:13 75 03/09/24 07:04 36.5 C 68 17 150/82 H 91 03/09/24 03:16 36.9 C 16 116/72 94 03/08/24 22:42 36.7 C 75 19 152/72 H 91 03/08/24 21:55 67 O2 Del Method 03/09/24 07:13 03/09/24 07:04 Room Air 03/09/24 03:16 Room Air 03/08/24 22:42 Room Air 03/08/24 21:55 Laboratory Results Cardiac Enzymes 03/08/24 03/09/24 Range/Units 05:59 06:33 Troponin I High Sens 13.9 D (0-20) pg/ml B-Natriuretic Peptide 262 H (0-100) pg/ml Coagulation 03/09/24 Range/Units 06:33 B-Natriuretic Peptide 262 H (0-100) pg/ml CBC 03/09/24 Range/Units 06:33 Hgb 9.1 L (14.0-18.0) g/dl Hct 29.5 L (42.0-52.0) % Comprehensive Metabolic Panel 03/09/24 Range/Units 06:33 Sodium 140 (136-145) mmol/L Potassium 4.6 (3.5-5.1) mmol/L Chloride 104 (98-107) mmol/L Carbon Dioxide 29 (21-32) mmol/L BUN 19 (6-23) mg/dl Creatinine 0.78 (0.6-1.4) mg/dl Glucose 138 H (70-99(Fasting)) mg/dl Calcium 9.6 (8.6-10.3) mg/dl Intake and Output 03/08/24 03/09/24 03/09/24 22:59 06:59 14:59 Intake Total 265 / 1565 470 / 1565 Output Total 460 / 2530 970 / 2530 700 / 700 Balance -195 / -965 -500 / -965 -700 / -700 Intake: IV 265 / 265 Iron Sucrose 300 mg In Sodium 265 / 265 Chloride 0.9% 250 ml @ 176.667 mls/hr IV TODAY ONE Rx#: [id number] Oral 470 / 1300 Output: Urine 460 / 2530 970 / 2530 700 / 700 Other: # Unmeasured Voids 1 Weight 114.5 kg Weight Measurement Method Built in [facility] Diagnostic Findings ECHOcardiogram: 03-09-2024 * LVEF 55-60% * Mild LVH * - Mild to Moderate * MR - Mild to Moderate Medications Administered Current Inpatient Medications Acetaminophen (Acetaminophen 325 Mg Tab) 650 mg PO Q4H PRN PRN Reason: Pain or Fever Stop: 04/06/24 22:15 Apixaban (Apixaban 5 Mg Tablet) 5 mg PO BID [facility] Stop: 04/06/24 22:15 Last Admin: 03/08/24 21:12 Dose: 5 mg Aspirin (Aspirin 81 Mg Ectab) 81 mg PO [facility] Stop: 04/07/24 08:59 Last Admin: 03/08/24 08:58 Dose: 81 mg Clopidogrel Bisulfate (Clopidogrel Bisulfate 75 Mg Tab) 75 mg PO [facility] Stop: 04/07/24 08:59 Last Admin: 03/08/24 08:58 Dose: 75 mg Cyanocobalamin (Cyanocobalamin (B-12) 500 Mcg Tablet) 1,000 mcg PO [facility] Stop: 04/07/24 08:59 Last Admin: 03/08/24 08:58 Dose: 1,000 mcg Dextrose (Dextrose 50% 50 Ml Syringe) 25 - 50 ml IV UD PRN; Protocol PRN Reason: Hypoglycemia Protocol Stop: 04/06/24 22:15 Doxycycline Hyclate (Doxycycline Hyclate 100 Mg Cap) 100 mg PO BID [facility] Stop: 04/06/24 22:15 Last Admin: 03/08/24 21:12 Dose: 100 mg Duloxetine HCl (Duloxetine Hcl 60 Mg Cap) [facility] [place]: 04/07/24 08:59 Last Admin: 03/08/24 08:58 Dose: 60 mg Gabapentin (Gabapentin 800 Mg Tab) 800 mg PO TID [facility] Stop: 04/06/24 22:15 Last Admin: 03/08/24 21:13 Dose: 800 mg Glucagon (Glucagon For Inj 1 Mg Vial) 1 mg SQ UD PRN; Protocol PRN Reason: Hypoglycemia Protocol Stop: 04/06/24 22:15 Glucose (Glucose 40% Gel 15 Gm Tube) 15 - 30 gm PO UD PRN; Protocol PRN Reason: Hypoglycemia Protocol Stop: 04/06/24 22:15 Glucose (Glucose 10 Tab/Tube) 4 - 8 tab PO UD PRN; Protocol PRN Reason: Hypoglycemia Treatment Stop: 04/06/24 22:15 Iron Sucrose 300 mg/ Sodium (Chloride) 265 mls @ 176.667 mls/hr IV ONE ONE; Protocol Stop: 03/09/24 08:59 Insulin Aspart (Insulin Aspart Per Unit Charge) 0 units SC ACHS [facility] Stop: 04/06/24 22:15 Last Admin: 03/08/24 21:09 Dose: 1 units Lactobacillus Acidophilus (Advanced Probiotic 625 Mg Capsule) 1,250 mg PO QPM [facility] Stop: 04/06/24 22:15 Last Admin: 03/08/24 21:11 Dose: 1,250 mg Lisinopril (Lisinopril 40 Mg Tab) 40 mg PO QAM [facility] Stop: 04/07/24 08:59 Last Admin: 03/08/24 08:58 Dose: 40 mg Magnesium Oxide (Magnesium Oxide 400 Mg Tab) 400 mg PO QPM [facility] Stop: 04/06/24 22:15 Last Admin: 03/08/24 21:13 Dose: 400 mg Melatonin (Melatonin 3 Mg Tab) 6 mg PO HS PRN PRN Reason: Sleep Stop: 04/06/24 23:04 Last Admin: 03/08/24 21:44 Dose: 6 mg Metoprolol Succinate (Metoprolol Succ 50mg Ext Rel Tab) 50 mg PO BID [facility] Stop: 04/07/24 20:59 Last Admin: 03/08/24 21:11 Dose: 50 mg Miscellaneous (Carbohydrates For Hypoglycemia ) 15 - 30 gm PO UD PRN PRN Reason: Hypoglycemia Protocol Stop: 04/06/24 22:15 Ondansetron HCl (Ondansetron Inj 2 Mg/Ml 2 Ml Vial) 4 mg IV Q6H PRN PRN Reason: Nausea Stop: 04/06/24 22:15 Last Admin: 03/08/24 21:04 Dose: 4 mg Pantoprazole Sodium (Pantoprazole 40 Mg Tab) 40 mg PO QAM [facility] Stop: 04/07/24 08:59 Last Admin: 03/08/24 08:58 Dose: 40 mg Tamsulosin HCl (Tamsulosin Hcl 0.4 Mg Cap) 0.4 mg PO HS [facility] Stop: 04/06/24 22:15 Last Admin: 03/08/24 21:11 Dose: 0.4 mg Thiamine HCl (Thiamine Hcl 100 Mg Tab) 200 mg PO BID [facility] Stop: 04/08/24 08:59 Tramadol HCl (Tramadol Hcl 50 Mg Tablet) 100 mg PO BID PRN PRN Reason: Moderate Pain (Scale 4, 5, 6) Stop: 04/06/24 22:15
[2024-03-09] MEDS: METOPROLOL SUCC 25MG EXT REL TAB PO ONE (11:38)
[2024-03-09] MEDS: FUROSEMIDE 20 MG TAB PO SCH (11:38)
--- NOTE | 2024-03-09 12:42 | Hospitalist Progress Note ---
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 Patient has not had a bowel movement yet. I encouraged him to ambulate down the hallway. IV venofer 300mg x x 2 on 03/08 and 03/09 of note - pt does have prior h/o gastric ulcer cont PPI once daily (3) Acute heart failure with preserved ejection fraction: Plan: pt's dyspnea, cough, etc may be due to acute diastolic CHF in the setting of severe anemia, +/- rapid a.fib/a.tach, potentially other factors [facility] lasix administered by them IV on 03/08. Today switched to p.o. Lasix 20 mg appreciate [employer] [facility] assistance limited echo ordered by [employer] [facility]. No changes found. (4) Atrial tachycardia, paroxysmal: Plan: multiple brief runs of a.tach (vs a.fib) on tele since admission Switch from metoprolol to tartrate to metoprolol succinate. Increased the dose to 75 mg p.o. twice daily today (5) Atrial fibrillation with rapid ventricular response: Plan: patient's admission EKG with a.fib with RVR he has prior h/o a.flutter (s/p ablation) and prior h/o PAF per records did patient develop a.fib in the last 1-2 weeks at home? if yes, did that precipitate his acute CHF and cardiopulmonary symptoms? cont Eliquis Changed metoprolol from tartrate to succinate at 75 mg twice daily consider outpatient monitoring to assess a.fib burden, etc. defer that decision to cardiology, however (6) Macrocytosis: Plan: despite the severe Fe deficiency he is not microcytic on CBC instead he is macrocytic on microscopy he has stomatocytes suspect macrocytosis is from chronic etoh abuse B12/folate wnl TSH wnl he was taking a B12 supplement at home - cont for now (7) History of right-sided carotid endarterectomy: Plan: right CEA on 01/20/2024 ([facility]) cont DAPT (8) Infection of prosthetic left knee joint: Plan: Left TKA periprosthetic infection/Enterococcus bacteremia- Completed 6 weeks of daptomycin IV, begun on 07/26/2023, and since that time has been on suppressive therapy with doxycycline 100 mg p.o. twice daily check a surveillance blood culture to ensure his fatigue, etc is not from occult bacteremia. Blood culture drawn on 03/08 negative so far. (has a neurostimulator device - if this device was infected you would expect blood cultures to be +) (9) S/P ablation of atrial flutter: Plan: history of such no a.flutter seen since admission (10) Pulmonary nodule: Plan: 02/10/[address]: "7 mm subsolid nodule within the right lung apex which contains a 3 mm solid c omponent. This has increased in size compared to 10/14/2022 chest CTA. Therefore, this is suspicious for a primary bronchogenic malignancy along the adenocarcinoma spectrum. Pulmonary consultation and [address] follow-up recommended for further evaluation." refer to [facility] (or [facility]) pulmonary for this certainly if there is lung ca this could be contributing to anemia, fatigue, etc. (11) CAD (coronary artery disease): Plan: h/o GA late h/o LAD stents he was having chest tightness/discomfort last 3 days prior to admission perhaps his anemia along with dysrhythmia unmasked ischemia?? defer work-up to [facility] cont BB cont aspirin cont plavix statin intolerant (12) Diabetes mellitus, type 2: Plan: a1c 5.9% hold metformin novolog SSI BSGs ac/hs (13) Hypertension: Plan: cont metoprolol cont lisinopril cont flomax (mainly for BPH, however) (14) Alcohol abuse: Plan: 4-6 beers/day no prior h/o etoh withdrawal add thiamine 200mg BID B12/folate levels wnl thus far no signs of withdrawal but low threshold to initiate AWSS protocol his alcohol abuse is likely contributing to his macrocytic anemia, could contribute to CHF decompensation, etc. Plan DVT proph - Eliquis Likely discharge tomorrow provided stable on med adjustments and stool guaiac negative Admission and Anticipated Discharge Date Admission Date: March 07, 2024 Subjective Patient was seen and examined at 11:30 AM. He says that he is feeling much better overall. Breathing better. His leg swelling is down. He is feeling stronger as well. Review of Systems Review of Systems: All systems reviewed & are unremarkable except as noted in Subjective Physical Exam Physical Exam: General: Awake, conversant Heart: S1, S2/regular rate and rhythm, no murmur rubs or gallops Lungs: Clear to auscultation bilaterally. Normal effort Abdomen: Soft/nontender/nondistended. No hepatosplenomegaly Extremities: No clubbing/cyanosis. No edema Behavior: Appropriate, cooperative Results & Data Results & Data Vital Signs (Past 12 Hours) Vital Signs Temp Pulse Pulse Resp BP Pulse Ox O2 Del Method 03/09/24 11:17 36.9 C 71 15 152/65 H 95 Room Air 03/09/24 07:13 75 03/09/24 07:04 36.5 C 68 17 150/82 H 91 Room Air 03/09/24 03:16 36.9 C 16 116/72 94 Room Air Laboratory Results Abnormal lab results 03/08/24 03/08/24 03/09/24 Range/Units 16:11 20:24 06:33 Hgb 9.1 L (14.0-18.0) g/dl Hct 29.5 L (42.0-52.0) % BUN/Creatinine Ratio 24.4 H (10-20) Glucose 138 H (70-99(Fasting)) mg/dl POC Glucose 128 H 144 H (70-99) mg/dl B-Natriuretic Peptide 262 H (0-100) pg/ml 03/09/24 03/09/24 Range/Units 07:03 10:58 Hgb (14.0-18.0) g/dl Hct (42.0-52.0) % BUN/Creatinine Ratio (10-20) Glucose (70-99(Fasting)) mg/dl POC Glucose 145 H 127 H (70-99) mg/dl B-Natriuretic Peptide (0-100) pg/ml PG Care Time/CCT Total # of Minutes Spent Total Time Spent with Patient: Total time spent is greater than 50% in coordination of care (as documented) at patient's floor/unit and/or counseling patient: Coding Level of Care Code 95263 SUB INP/OBS CARE 2/35MIN Diagnoses Symptomatic anemia D64.9 Iron deficiency anemia D50.9 Acute heart failure with preserved ejection fraction I50.31 Atrial tachycardia, paroxysmal I47.19 Atrial fibrillation with rapid ventricular response I48.91 Macrocytosis D75.89 History of right-sided carotid endarterectomy Z98.890 Infection of prosthetic left knee joint T84.54XA S/P ablation of atrial flutter Z98.890; Z86.79 Pulmonary nodule R91.1 CAD (coronary artery disease) I25.10 Diabetes mellitus, type 2 E11.9 Primary hypertension I10 Hypertension type: primary hypertension Alcohol abuse F10.10 (13) Hypertension Hypertension type: primary hypertension Qualified Code(s): I10 - Essential (primary) hypertension
[2024-03-09] MEDS: METOPROLOL SUCC 25MG EXT REL TAB PO SCH (20:45)
[2024-03-09] MEDS: diphenhydrAMINE Capsule 25 MG CAP PO ONE (22:22)
--- NOTE | 2024-03-10 00:29 | Emergency Department Note ---
Impression & Plan Symptomatic anemia, Atrial fibrillation with RVR, FLAHERTY (dyspnea on exertion) ED Provider Note CHIEF COMPLAINT: SOB HISTORY OF PRESENT ILLNESS: This 63 yo male patient Past medical history of atrial fibrillation on anticoagulation status post ablation, type 2 diabetes, anxiety/depression, peripheral vascular disease status post right carotid endarterectomy, coronary artery disease, ventricular tachycardia, heart failure, alcohol abuse and chronic tobacco smoking presents to the emergency department with c/o SOB for 1-2 weeks. Pt states he cut his right neck shaving today. This is the site of his previous carotid endarterectomy and thus the scar is vulnerable to shaving nicks. His has had difficult time getting the bleeding under control due to his anticoagulation. Patient denies any fevers, significant change in his baseline coughing, chest pain. He states he knows he is anemic, he has been for a while. He denies any blood in his stools. REVIEW OF SYSTEMS: A review of systems was performed with positives and pertinent negatives listed in the history of present illness. 10 systems were reviewed and are otherwise negative. ALLERGIES: see below MEDICATIONS: see below PMH: see below SOCIAL HISTORY: see below DDx: Atrial fibrillation, atrial flutter, anemia, acute coronary syndrome, congestive heart failure, pneumonia, GI bleed, infectious etiology among others. PHYSICAL EXAM: Vital signs reviewed. General: Chronically ill-appearing 63-year-old male, in no significant distress. Pale HEENT: Pale conjunctivae, no scleral icterus, PERRLA, neck supple. Moist mucous membranes. Cardiovascular: Irregular, tachycardic, no extra sounds. Pulmonary: Clear to auscultation bilaterally, slightly increased work of breathing. Abdomen: Soft, nontender, nondistended, positive bowel sounds. Musculoskeletal: Atraumatic, no peripheral edema. Neurologic: Patient awake alert and oriented x 3, speech is clear Skin: Warm, dry, no rash. Tiny avulsion injury to R neck along scar line. Minimal bleeding noted. EMERGENCY DEPARTMENT COURSE/MDM: This pt was evaluated and appeared to be in no distress. IV access was obtained and lab work was drawn. Pt is noted to be in a rapid atrial fib on telemetry. A christie is noted to be oozing on R side of the neck, bandage was replaced. Pt is pale in appearance. Lab work reveals a worsening anemia with hbg of 7.7. Review of medical records indicates hbg is usually 8.5-10. Type and cross was performed and PRBCs ordered. Pt was consented for blood transfusion as he is not tolerating the anemia, likely secondary to multisystem disease. CXR was performed and is negative for acute process. EKG is atrial fib with RVR. Lab work otherwise reveals a + HS troponin. I discussed the findings with pt and his , pt will be evaluated by the hospitalist for admission and further management. MONITORING: An order for cardiac monitoring was placed and the patient is noted to be in a atrial fibrillation at 93 beats per minute. RADIOLOGY: chest x-ray to my interpretation reveals evidence of cardiomegaly without evidence of acute infiltrate or failure. EKG: To my interpretation reveals atrial fibrillation [address] changes. QTc of 490. DISPOSITION: Admission I have personally spent greater than 32 minutes of critical care time in the direct management of this patient. This includes bedside care, interpretation of diagnostic studies, and testing, discussion with consultants, patient, and family members, and other required patient management activities. This 32 minutes is in excess of all separately billable procedures. Past Med/Surg History Problem List (Updated 03/14/24 @ 07:24 by Luci Coles MD) FLAHERTY (dyspnea on exertion) (Acute) Symptomatic anemia (Acute) Atrial fibrillation with RVR (Acute) Rotator cuff arthropathy of both shoulders Ventricular tachycardia (paroxysmal) History of total knee arthroplasty (Acute) Peripheral vascular disease (Acute) Stenosis of both vertebral arteries Idiopathic polyneuropathy Stenosis of right internal carotid artery Diabetic neuropathy Nocturia Chronic anemia Statin intolerance Nocturnal hypoxemia Ectopic atrial rhythm Osteoarthritis of right hip Trochanteric bursitis of left hip Presence of bare metal stent in anterior descending branch of left coronary artery Male erectile disorder of organic origin Vitamin D deficiency Medical History Peripheral arterial disease Peripheral vascular disease Diabetes mellitus, type 2 History of anemia Stenosis of right internal carotid artery Ventricular tachycardia Sleep apnea Hx of solitary pulmonary nodule BPH (benign prostatic hyperplasia) Anxiety and depression Nocturia History of cardioversion Neuropathy History of chronic back pain History of COVID-19 History of anxiety Paroxysmal atrial flutter Bilateral carotid artery stenosis CAD in three affiliated artery History of gastric ulcer Degenerative disc disease GERD (gastroesophageal reflux disease) Hyperlipidemia Myocardial infarction Surgical History Hx of transesophageal echocardiography (GLADYS) for monitoring History of revision of total knee arthroplasty Hx of cardiac cath Presence of neurostimulator History of cardiac radiofrequency ablation S/P insertion of iliac artery stent History of endarterectomy Hx of cataract extraction History of anesthesia reaction Fusion of spine History of lumbar surgery History of total knee replacement Hx of transurethral resection of prostate History of esophagogastroduodenoscopy (EGD) History of colonoscopy History of nasal septoplasty History of heart artery stent Family History Mother Heart disease Diabetes Father Cancer Heart disease Brother Lung cancer Carotid artery stenosis Brother Diabetes Brother Coronary heart disease Sister No problems noted. Other No family history of adverse response to anesthesia Denies family history of Ovarian cancer Prostate cancer Myocardial infarction Breast cancer Colorectal cancer Social History Smoking Status: Current every day smoker Tobacco Type: Cigarettes and Smokeless Tobacco (Dip or Chew) Age Started Using Tobacco: 18; Cigarettes Per Day: 10; Second Hand Exposure: Yes; Do You Dip or Chew Tobacco: Yes; Hx Alcohol Use: Yes Alcohol type: beer Alcohol type Comment: 6-8 beers Hx Substance Use: No Preferred Language: Slovenian Communication Ability: Effective Visual Impairment: No Limitations Currency Examiner Required: No Beliefs That Will Affect Care: None marital status: Current Living Situation: Spouse Current Living Situation Comment: Lives at home with current occupational status: retired How many Children do You have: 4 Feels Safe at Home: Yes Childhood Exposure to Second-Hand Smoke: Yes Diet: regular caffeine: Yes Dental Care, Regularly: Yes Physical Activity Frequency: Does not Exercise Seatbelt Use: always Sunscreen Use: No Assistive Devices: Cane and Scooter/Electric Scooter Allergies Allergies Allergy/AdvReac Type Severity Reaction Status Date / Time latex Allergy Unknown Rash Verified 02/09/24 13:59 Penicillins Allergy Unknown Rash Verified 02/09/24 13:59 adhesive AdvReac Unknown Rash Verified 02/09/24 13:59 dronedarone AdvReac Unknown Fatigued Verified 02/09/24 13:59 gemfibrozil AdvReac Unknown BODY ACHES Verified 02/09/24 13:59 NSAIDS (Non-Steroidal AdvReac Unknown TOLD NOT Verified 02/09/24 13:59 Anti-Inflamma TO TAKE - HX STOMACH ULCER Yuhvewv-ASW-KdJ Reductase AdvReac Unknown body aches Verified 02/09/24 13:59 Inhibitor [Akhbfcl-Oof-Mjp Reductase Inhibitor] Home Meds Home Medications Medication Instructions Recorded Confirmed acetaminophen 650 mg 650 mg PO Q8H PRN ARTHRITIS PAIN 12/06/20 03/11/24 tablet,extended release cyanocobalamin (vitamin B-12) 1,000 mcg PO QAM 08/26/22 03/11/24 1,000 mcg tablet (Vitamin B-12) clopidogrel 75 mg tablet (Plavix) 75 mg PO QAM 07/18/23 03/11/24 tamsulosin 0.4 mg capsule 0.4 mg PO HS 07/18/23 03/11/24 evolocumab 140 mg/mL subcutaneous 140 mg subcut USEASDIRECTD 09/16/23 03/11/24 pen injector (Sally Villavicencio) doxycycline hyclate 100 mg tablet 100 mg PO BID 09/22/23 03/11/24 magnesium oxide 400 mg PO QPM 09/22/23 03/11/24 aspirin 81 mg tablet,delayed 81 mg PO QAM 10/07/23 03/11/24 release (Adult Low Dose Aspirin) lactobacillus comb no.10 20 20,000 mmu cells PO QPM 10/08/23 03/11/24 billion cell capsule (Probiotic) ascorbic acid (vitamin C) 500 mg 500 mg PO DAILY 03/11/24 03/11/24 tablet Previous Rx's Medication Instructions Recorded glimepiride 1 mg tablet 1 mg PO QAM #90 tabs 02/03/23 apixaban 5 mg tablet (Eliquis) 5 mg PO BID #180 tabs 06/30/23 duloxetine 60 mg capsule,delayed 60 mg PO QAM #90 caps 07/02/23 release (Cymbalta) pantoprazole 40 mg tablet,delayed 40 mg PO QAM #90 tabs 07/02/23 release metformin 500 mg tablet,extended 2,000 mg (4 x 500 mg) PO QAM #360 07/28/23 release 24 hr tabs lisinopril 40 mg tablet 40 mg PO QAM #90 tabs 02/10/24 gabapentin 400 mg capsule 800 mg (2 x 400 mg) PO TID 90 days 02/13/24 #540 caps tramadol 50 mg tablet 100 mg (2 x 50 mg) PO BID PRN pain 02/13/24 #120 tabs furosemide 20 mg tablet 20 mg PO QAM #30 tabs 03/10/24 metoprolol succinate 25 mg 75 mg (3 x 25 mg) PO BID #180 tabs 03/11/24 tablet,extended release 24 hr Results & Data (ED) Vital Signs Vital Signs - 24 hr 03/09/24 03:16 03/09/24 07:04 03/09/24 07:04 Temperature 36.9 C 36.5 C Temperature Source Oral Oral Pulse Rate Pulse Rate [Finger] 68 Pulse Rhythm [Finger] Pulse Strength [Finger] Respiratory Rate 16 17 Respiratory Effort / Characteristics Non-Labored Spontaneous Respiratory Depth Normal Normal Respiratory Pattern Regular Blood Pressure [Left Arm] 116/72 150/82 H Blood Pressure Mean [Left Arm] 86 104 Blood Pressure Position [Left Arm] Sitting Sitting Pulse Oximetry 94 91 Oxygen Delivery Method Room Air Room Air EWS Level of Consciousness - Last Result Spontaneously Alert EWS Temperature - Last Result 36.9 EWS Respiratory Rate - Last Result 16 EWS Oxygen Saturation - Last Result 94 EWS Oxygen in Use - Last Result No EWS Score 1 EWS Clinical Risk Low Risk 03/09/24 07:13 03/09/24 11:17 Temperature 36.9 C Temperature Source Oral Pulse Rate 75 Pulse Rate [Finger] 71 Pulse Rhythm [Finger] Regular Pulse Strength [Finger] Normal Respiratory Rate 15 Respiratory Effort / Characteristics Non-Labored Respiratory Depth Normal Respiratory Pattern Regular Blood Pressure [Left Arm] 152/65 H Blood Pressure Mean [Left Arm] 94 Blood Pressure Position [Left Arm] Pulse Oximetry 95 Oxygen Delivery Method Room Air EWS Level of Consciousness - Last Result EWS Temperature - Last Result EWS Respiratory Rate - Last Result EWS Oxygen Saturation - Last Result EWS Oxygen in Use - Last Result EWS Score EWS Clinical Risk Home Medications Current Medication List: was personally reviewed by me Laboratory Data Attestation: I reviewed the patient's lab results. 03/10/24 08:42 03/09/24 06:33 Lab Results 03/07/24 03/07/24 03/07/24 Range/Units 17:32 18:02 18:08 WBC 9.92 (4.8-10.8) K/ul RBC 2.45 L (4.70-6.10) M/uL Hgb 7.7 L (14.0-18.0) g/dl Hct 25.2 L (42.0-52.0) % MCV 102.9 H (80.0-100.0) fL MCH 31.4 (25.0-34.0) pg MCHC 30.6 L (32.0-36.0) g/dL RDW Std Deviation 72.8 H (36.4-46.3) fL RDW Coeff of Kvng 19.2 H (11.5-14.5) % Plt Count 438 H (130-400) K/uL MPV 10.9 (9.4-12.4) fL Immature Gran % (Auto) 0.8 % Neut % (Auto) 77.9 % Lymph % (Auto) 12.3 % [place] % (Auto) 8.0 % Eos % (Auto) 0.3 % Baso % (Auto) 0.7 % Neut # (Auto) 7.73 H (1.40-6.50) K/uL Lymph # (Auto) 1.22 (1.20-3.40) K/uL [place] # (Auto) 0.79 H (0.11-0.59) K/uL Eos # (Auto) 0.03 (0.00-0.50) K/uL Baso # (Auto) 0.07 (0.00-0.20) K/uL Immature Gran # (Auto) 0.08 (0.01-0.20) K/uL Absolute Nucleated RBC 0.16 H (0.00-0.12) K/uL Nucleated RBC % (auto) 1.6 % Polychromasia 1+ Anisocytosis Stomatocytes 1+ ESR Sodium 134 L (136-145) mmol/L Potassium 3.7 (3.5-5.1) mmol/L Chloride 102 (98-107) mmol/L Carbon Dioxide 23 (21-32) mmol/L Anion Gap 9 (3-11) BUN 16 (6-23) mg/dl Creatinine 0.94 (0.6-1.4) mg/dl Est Cr Clr Drug Dosing 100.9 ml/min eGFR 89.96 BUN/Creatinine Ratio 17.0 (10-20) Glucose 152 H (70-99(Fasting)) mg/dl POC Glucose (70-99) mg/dl Estimat Average Glucose mg/dl Hemoglobin A1c (4.5-5.6) % Calcium 8.9 (8.6-10.3) mg/dl Magnesium 1.8 (1.7-2.4) mg/dl Iron (35-175) mcg/dl TIBC (250-450) mcg/dl Unsaturated IBC (155-355) mcg/dl Transferrin % Sat (20-50) % Ferritin (8-388) ng/ml Total Bilirubin 0.4 (0.2-1.0) mg/dl AST 19 (13-39) U/L ALT 28 (7-52) U/L Alkaline Phosphatase 73 (34-104) U/L Troponin I High Sens 20.3 H (0-20) pg/ml C-Reactive Protein (0-0.5) mg/dl B-Natriuretic Peptide (0-100) pg/ml Total Protein 6.9 (6.0-8.3) gm/dl Albumin 3.8 (3.4-5.0) gm/dl Globulin 3.1 (2.5-4.0) gm/dl Albumin/Globulin Ratio 1.2 (0.9-2) Vitamin B12 (180-914) pg/ml Folate (>5.38) ng/ml Urine Color Yellow Urine Appearance Clear (Clear) Urine pH 6.0 (4.5-7.5) Ur Specific [place]pi[place] 1.010 (1.000-1.030) Urine Protein Negative (Negative) Urine Glucose (UA) Negative (Negative) Urine Ketones Negative (Negative) Urine Blood Negative (Negative) Urine Nitrite Negative (Negative) Urine Bilirubin Negative (Negative) Urine Urobilinogen Negative (Negative) Ur Leukocyte Esterase Negative (Negative) SARS-CoV-2 (PCR) (Negative) Influenza Type A (PCR) (Neg) Influenza Type B (PCR) (Neg) RSV (RT-PCR) (Neg) Blood Type O Positive Antibody Screen NEGATIVE Crossmatch See Detail 03/07/24 03/07/24 03/07/24 Range/Units 18:37 19:43 23:10 WBC (4.8-10.8) K/ul RBC (4.70-6.10) M/uL Hgb (14.0-18.0) g/dl Hct (42.0-52.0) % MCV (80.0-100.0) fL MCH (25.0-34.0) pg MCHC (32.0-36.0) g/dL RDW Std Deviation (36.4-46.3) fL RDW Coeff of Kvng (11.5-14.5) % Plt Count (130-400) K/uL MPV (9.4-12.4) fL Immature Gran % (Auto) % Neut % (Auto) % Lymph % (Auto) % [place] % (Auto) % Eos % (Auto) % Baso % (Auto) % Neut # (Auto) (1.40-6.50) K/uL Lymph # (Auto) (1.20-3.40) K/uL [place] # (Auto) (0.11-0.59) K/uL Eos # (Auto) (0.00-0.50) K/uL Baso # (Auto) (0.00-0.20) K/uL Immature Gran # (Auto) (0.01-0.20) K/uL Absolute Nucleated RBC (0.00-0.12) K/uL Nucleated RBC % (auto) % Polychromasia Anisocytosis Stomatocytes ESR Sodium (136-145) mmol/L Potassium (3.5-5.1) mmol/L Chloride (98-107) mmol/L Carbon Dioxide (21-32) mmol/L Anion Gap (3-11) BUN (6-23) mg/dl Creatinine (0.6-1.4) mg/dl Est Cr Clr Drug Dosing ml/min eGFR BUN/Creatinine Ratio (10-20) Glucose (70-99(Fasting)) mg/dl POC Glucose 109 H (70-99) mg/dl Estimat Average Glucose mg/dl Hemoglobin A1c (4.5-5.6) % Calcium (8.6-10.3) mg/dl Magnesium (1.7-2.4) mg/dl Iron (35-175) mcg/dl TIBC (250-450) mcg/dl Unsaturated IBC (155-355) mcg/dl Transferrin % Sat (20-50) % Ferritin (8-388) ng/ml Total Bilirubin (0.2-1.0) mg/dl AST (13-39) U/L ALT (7-52) U/L Alkaline Phosphatase (34-104) U/L Troponin I High Sens 18.5 (0-20) pg/ml C-Reactive Protein (0-0.5) mg/dl B-Natriuretic Peptide (0-100) pg/ml Total Protein (6.0-8.3) gm/dl Albumin (3.4-5.0) gm/dl Globulin (2.5-4.0) gm/dl Albumin/Globulin Ratio (0.9-2) Vitamin B12 (180-914) pg/ml Folate (>5.38) ng/ml Urine Color Urine Appearance (Clear) Urine pH (4.5-7.5) Ur Specific [place]pi[place] (1.000-1.030) Urine Protein (Negative) Urine Glucose (UA) (Negative) Urine Ketones (Negative) Urine Blood (Negative) Urine Nitrite (Negative) Urine Bilirubin (Negative) Urine Urobilinogen (Negative) Ur Leukocyte Esterase (Negative) SARS-CoV-2 (PCR) NEGATIVE (Negative) Influenza Type A (PCR) Negative (Neg) Influenza Type B (PCR) Negative (Neg) RSV (RT-PCR) Negative (Neg) Blood Type Antibody Screen Crossmatch 03/08/24 03/08/24 03/08/24 Range/Units 05:59 07:27 08:05 WBC 6.42 (4.8-10.8) K/ul RBC 2.64 L (4.70-6.10) M/uL Hgb 8.3 L (14.0-18.0) g/dl Hct 27.6 L (42.0-52.0) % MCV 104.5 H (80.0-100.0) fL MCH 31.4 (25.0-34.0) pg MCHC 30.1 L (32.0-36.0) g/dL RDW Std Deviation 75.1 H (36.4-46.3) fL RDW Coeff of Kvng 20.1 H (11.5-14.5) % Plt Count 376 (130-400) K/uL MPV 10.8 (9.4-12.4) fL Immature Gran % (Auto) 0.8 % Neut % (Auto) 69.2 % Lymph % (Auto) 17.0 % [place] % (Auto) 11.2 % Eos % (Auto) 0.9 % Baso % (Auto) 0.9 % Neut # (Auto) 4.44 (1.40-6.50) K/uL Lymph # (Auto) 1.09 L (1.20-3.40) K/uL [place] # (Auto) 0.72 H (0.11-0.59) K/uL Eos # (Auto) 0.06 (0.00-0.50) K/uL Baso # (Auto) 0.06 (0.00-0.20) K/uL Immature Gran # (Auto) 0.05 (0.01-0.20) K/uL Absolute Nucleated RBC 0.07 (0.00-0.12) K/uL Nucleated RBC % (auto) 1.1 % Polychromasia 1+ Anisocytosis Present Stomatocytes ESR Cancelled Sodium 139 (136-145) mmol/L Potassium 4.6 D (3.5-5.1) mmol/L Chloride 107 (98-107) mmol/L Carbon Dioxide 25 (21-32) mmol/L Anion Gap 7 (3-11) BUN 15 (6-23) mg/dl Creatinine 0.73 (0.6-1.4) mg/dl Est Cr Clr Drug Dosing 127.7 ml/min eGFR 100.97 BUN/Creatinine Ratio 20.5 H (10-20) Glucose 117 H (70-99(Fasting)) mg/dl POC Glucose 130 H (70-99) mg/dl Estimat Average Glucose 123 mg/dl Hemoglobin A1c 5.9 H (4.5-5.6) % Calcium 9.1 (8.6-10.3) mg/dl Magnesium 2.0 (1.7-2.4) mg/dl Iron (35-175) mcg/dl TIBC (250-450) mcg/dl Unsaturated IBC (155-355) mcg/dl Transferrin % Sat (20-50) % Ferritin (8-388) ng/ml Total Bilirubin 0.4 (0.2-1.0) mg/dl AST 18 (13-39) U/L ALT 24 (7-52) U/L Alkaline Phosphatase 67 (34-104) U/L Troponin I High Sens 13.9 D (0-20) pg/ml C-Reactive Protein (0-0.5) mg/dl B-Natriuretic Peptide (0-100) pg/ml Total Protein 6.5 (6.0-8.3) gm/dl Albumin 3.6 (3.4-5.0) gm/dl Globulin 2.9 (2.5-4.0) gm/dl Albumin/Globulin Ratio 1.2 (0.9-2) Vitamin B12 1312 H (180-914) pg/ml Folate > 22.30 (>5.38) ng/ml Urine Color Urine Appearance (Clear) Urine pH (4.5-7.5) Ur Specific [place]pi[place] (1.000-1.030) Urine Protein (Negative) Urine Glucose (UA) (Negative) Urine Ketones (Negative) Urine Blood (Negative) Urine Nitrite (Negative) Urine Bilirubin (Negative) Urine Urobilinogen (Negative) Ur Leukocyte Esterase (Negative) SARS-CoV-2 (PCR) (Negative) Influenza Type A (PCR) (Neg) Influenza Type B (PCR) (Neg) RSV (RT-PCR) (Neg) Blood Type Antibody Screen Crossmatch 03/08/24 03/08/24 03/08/24 Range/Units 10:08 10:14 11:25 WBC (4.8-10.8) K/ul RBC (4.70-6.10) M/uL Hgb (14.0-18.0) g/dl Hct (42.0-52.0) % MCV (80.0-100.0) fL MCH (25.0-34.0) pg MCHC (32.0-36.0) g/dL RDW Std Deviation (36.4-46.3) fL RDW Coeff of Kvng (11.5-14.5) % Plt Count (130-400) K/uL MPV (9.4-12.4) fL Immature Gran % (Auto) % Neut % (Auto) % Lymph % (Auto) % [place] % (Auto) % Eos % (Auto) % Baso % (Auto) % Neut # (Auto) (1.40-6.50) K/uL Lymph # (Auto) (1.20-3.40) K/uL [place] # (Auto) (0.11-0.59) K/uL Eos # (Auto) (0.00-0.50) K/uL Baso # (Auto) (0.00-0.20) K/uL Immature Gran # (Auto) (0.01-0.20) K/uL Absolute Nucleated RBC (0.00-0.12) K/uL Nucleated RBC % (auto) % Polychromasia Anisocytosis Stomatocytes ESR 26 H Sodium (136-145) mmol/L Potassium (3.5-5.1) mmol/L Chloride (98-107) mmol/L Carbon Dioxide (21-32) mmol/L Anion Gap (3-11) BUN (6-23) mg/dl Creatinine (0.6-1.4) mg/dl Est Cr Clr Drug Dosing ml/min eGFR BUN/Creatinine Ratio (10-20) Glucose (70-99(Fasting)) mg/dl POC Glucose 119 H (70-99) mg/dl Estimat Average Glucose mg/dl Hemoglobin A1c (4.5-5.6) % Calcium (8.6-10.3) mg/dl Magnesium (1.7-2.4) mg/dl Iron 21 L (35-175) mcg/dl TIBC 447 (250-450) mcg/dl Unsaturated IBC 426 H (155-355) mcg/dl Transferrin % Sat 5 L (20-50) % Ferritin 23.0 (8-388) ng/ml Total Bilirubin (0.2-1.0) mg/dl AST (13-39) U/L ALT (7-52) U/L Alkaline Phosphatase (34-104) U/L Troponin I High Sens (0-20) pg/ml C-Reactive Protein 0.87 H (0-0.5) mg/dl B-Natriuretic Peptide (0-100) pg/ml Total Protein (6.0-8.3) gm/dl Albumin (3.4-5.0) gm/dl Globulin (2.5-4.0) gm/dl Albumin/Globulin Ratio (0.9-2) Vitamin B12 (180-914) pg/ml Folate (>5.38) ng/ml Urine Color Urine Appearance (Clear) Urine pH (4.5-7.5) Ur Specific [place]pi[place] (1.000-1.030) Urine Protein (Negative) Urine Glucose (UA) (Negative) Urine Ketones (Negative) Urine Blood (Negative) Urine Nitrite (Negative) Urine Bilirubin (Negative) Urine Urobilinogen (Negative) Ur Leukocyte Esterase (Negative) SARS-CoV-2 (PCR) (Negative) Influenza Type A (PCR) (Neg) Influenza Type B (PCR) (Neg) RSV (RT-PCR) (Neg) Blood Type Antibody Screen Crossmatch 03/08/24 03/08/24 03/09/24 Range/Units 16:11 20:24 06:33 WBC (4.8-10.8) K/ul RBC (4.70-6.10) M/uL Hgb 9.1 L (14.0-18.0) g/dl Hct 29.5 L (42.0-52.0) % MCV (80.0-100.0) fL MCH (25.0-34.0) pg MCHC (32.0-36.0) g/dL RDW Std Deviation (36.4-46.3) fL RDW Coeff of Kvng (11.5-14.5) % Plt Count (130-400) K/uL MPV (9.4-12.4) fL Immature Gran % (Auto) % Neut % (Auto) % Lymph % (Auto) % [place] % (Auto) % Eos % (Auto) % Baso % (Auto) % Neut # (Auto) (1.40-6.50) K/uL Lymph # (Auto) (1.20-3.40) K/uL [place] # (Auto) (0.11-0.59) K/uL Eos # (Auto) (0.00-0.50) K/uL Baso # (Auto) (0.00-0.20) K/uL Immature Gran # (Auto) (0.01-0.20) K/uL Absolute Nucleated RBC (0.00-0.12) K/uL Nucleated RBC % (auto) % Polychromasia Anisocytosis Stomatocytes ESR Sodium 140 (136-145) mmol/L Potassium 4.6 (3.5-5.1) mmol/L Chloride 104 (98-107) mmol/L Carbon Dioxide 29 (21-32) mmol/L Anion Gap 7 (3-11) BUN 19 (6-23) mg/dl Creatinine 0.78 (0.6-1.4) mg/dl Est Cr Clr Drug Dosing 119.7 ml/min eGFR 98.97 BUN/Creatinine Ratio 24.4 H (10-20) Glucose 138 H (70-99(Fasting)) mg/dl POC Glucose 128 H 144 H (70-99) mg/dl Estimat Average Glucose mg/dl Hemoglobin A1c (4.5-5.6) % Calcium 9.6 (8.6-10.3) mg/dl Magnesium (1.7-2.4) mg/dl Iron (35-175) mcg/dl TIBC (250-450) mcg/dl Unsaturated IBC (155-355) mcg/dl Transferrin % Sat (20-50) % Ferritin (8-388) ng/ml Total Bilirubin (0.2-1.0) mg/dl AST (13-39) U/L ALT (7-52) U/L Alkaline Phosphatase (34-104) U/L Troponin I High Sens (0-20) pg/ml C-Reactive Protein (0-0.5) mg/dl B-Natriuretic Peptide 262 H (0-100) pg/ml Total Protein (6.0-8.3) gm/dl Albumin (3.4-5.0) gm/dl Globulin (2.5-4.0) gm/dl Albumin/Globulin Ratio (0.9-2) Vitamin B12 (180-914) pg/ml Folate (>5.38) ng/ml Urine Color Urine Appearance (Clear) Urine pH (4.5-7.5) Ur Specific [place]pi[place] (1.000-1.030) Urine Protein (Negative) Urine Glucose (UA) (Negative) Urine Ketones (Negative) Urine Blood (Negative) Urine Nitrite (Negative) Urine Bilirubin (Negative) Urine Urobilinogen (Negative) Ur Leukocyte Esterase (Negative) SARS-CoV-2 (PCR) (Negative) Influenza Type A (PCR) (Neg) Influenza Type B (PCR) (Neg) RSV (RT-PCR) (Neg) Blood Type Antibody Screen Crossmatch 03/09/24 03/09/24 Range/Units 07:03 10:58 WBC (4.8-10.8) K/ul RBC (4.70-6.10) M/uL Hgb (14.0-18.0) g/dl Hct (42.0-52.0) % MCV (80.0-100.0) fL MCH (25.0-34.0) pg MCHC (32.0-36.0) g/dL RDW Std Deviation (36.4-46.3) fL RDW Coeff of Kvng (11.5-14.5) % Plt Count (130-400) K/uL MPV (9.4-12.4) fL Immature Gran % (Auto) % Neut % (Auto) % Lymph % (Auto) % [place] % (Auto) % Eos % (Auto) % Baso % (Auto) % Neut # (Auto) (1.40-6.50) K/uL Lymph # (Auto) (1.20-3.40) K/uL [place] # (Auto) (0.11-0.59) K/uL Eos # (Auto) (0.00-0.50) K/uL Baso # (Auto) (0.00-0.20) K/uL Immature Gran # (Auto) (0.01-0.20) K/uL Absolute Nucleated RBC (0.00-0.12) K/uL Nucleated RBC % (auto) % Polychromasia Anisocytosis Stomatocytes ESR Sodium (136-145) mmol/L Potassium (3.5-5.1) mmol/L Chloride (98-107) mmol/L Carbon Dioxide (21-32) mmol/L Anion Gap (3-11) BUN (6-23) mg/dl Creatinine (0.6-1.4) mg/dl Est Cr Clr Drug Dosing ml/min eGFR BUN/Creatinine Ratio (10-20) Glucose (70-99(Fasting)) mg/dl POC Glucose 145 H 127 H (70-99) mg/dl Estimat Average Glucose mg/dl Hemoglobin A1c (4.5-5.6) % Calcium (8.6-10.3) mg/dl Magnesium (1.7-2.4) mg/dl Iron (35-175) mcg/dl TIBC (250-450) mcg/dl Unsaturated IBC (155-355) mcg/dl Transferrin % Sat (20-50) % Ferritin (8-388) ng/ml Total Bilirubin (0.2-1.0) mg/dl AST (13-39) U/L ALT (7-52) U/L Alkaline Phosphatase (34-104) U/L Troponin I High Sens (0-20) pg/ml C-Reactive Protein (0-0.5) mg/dl B-Natriuretic Peptide (0-100) pg/ml Total Protein (6.0-8.3) gm/dl Albumin (3.4-5.0) gm/dl Globulin (2.5-4.0) gm/dl Albumin/Globulin Ratio (0.9-2) Vitamin B12 (180-914) pg/ml Folate (>5.38) ng/ml Urine Color Urine Appearance (Clear) Urine pH (4.5-7.5) Ur Specific [place] (1.000-1.030) Urine Protein (Negative) Urine Glucose (UA) (Negative) Urine Ketones (Negative) Urine Blood (Negative) Urine Nitrite (Negative) Urine Bilirubin (Negative) Urine Urobilinogen (Negative) Ur Leukocyte Esterase (Negative) SARS-CoV-2 (PCR) (Negative) Influenza Type A (PCR) (Neg) Influenza Type B (PCR) (Neg) RSV (RT-PCR) (Neg) Blood Type Antibody Screen Crossmatch Administered Medications Discontinued Medications Apixaban (Apixaban 5 Mg Tablet) 5 mg PO BID [facility] Stop: 04/06/24 22:15 Last Admin: 03/10/24 08:06 Dose: 5 mg Documented By: Admin: 03/09/24 20:41 Dose: 5 mg Documented By: Admin: 03/09/24 07:59 Dose: 5 mg Documented By: Admin: 03/08/24 21:12 Dose: 5 mg Documented By: Admin: 03/08/24 08:57 Dose: 5 mg Documented By: Admin: 03/07/24 23:08 Dose: 5 mg Documented By: CONRAD Aspirin (Aspirin 81 Mg Ectab) 81 mg PO [facility] Stop: 04/07/24 08:59 Last Admin: 03/10/24 08:06 Dose: 81 mg Documented By: Admin: 03/09/24 07:58 Dose: 81 mg Documented By: Admin: 03/08/24 08:58 Dose: 81 mg Documented By: JAVAN Clopidogrel Bisulfate (Clopidogrel Bisulfate 75 Mg Tab) 75 mg PO [facility] Stop: 04/07/24 08:59 Last Admin: 03/10/24 08:06 Dose: 75 mg Documented By: Admin: 03/09/24 07:58 Dose: 75 mg Documented By: Admin: 03/08/24 08:58 Dose: 75 mg Documented By: JAVAN Cyanocobalamin (Cyanocobalamin (B-12) 500 Mcg Tablet) 1,000 mcg PO QAM [facility] Stop: 04/07/24 08:59 Last Admin: 03/10/24 08:06 Dose: 1,000 mcg Documented By: Admin: 03/09/24 07:58 Dose: 1,000 mcg Documented By: Admin: 03/08/24 08:58 Dose: 1,000 mcg Documented By: JAVAN Diphenhydramine HCl (Diphenhydramine Capsule 25 Mg Cap) 25 mg PO NOW ONE Stop: 03/08/24 23:18 Last Admin: 03/08/24 23:28 Dose: 25 mg Documented By: CHIO Diphenhydramine HCl (Diphenhydramine Capsule 25 Mg Cap) 25 mg PO NOW ONE Stop: 03/09/24 21:50 Last Admin: 03/09/24 22:22 Dose: 25 mg Documented By: FRANCES Doxycycline Hyclate (Doxycycline Hyclate 100 Mg Cap) 100 mg PO BID [facility] Stop: 04/06/24 22:15 Last Admin: 03/10/24 08:06 Dose: 100 mg Documented By: Admin: 03/09/24 20:40 Dose: 100 mg Documented By: Admin: 03/09/24 07:59 Dose: 100 mg Documented By: Admin: 03/08/24 21:12 Dose: 100 mg Documented By: Admin: 03/08/24 08:57 Dose: 100 mg Documented By: Admin: 03/07/24 23:08 Dose: 100 mg Documented By: CONRAD Duloxetine HCl (Duloxetine Hcl 60 Mg Cap) [facility] Stop: 04/07/24 08:59 Last Admin: 03/10/24 08:06 Dose: 60 mg Documented By: Admin: 03/09/24 07:58 Dose: 60 mg Documented By: Admin: 03/08/24 08:58 Dose: 60 mg Documented By: JAVAN Furosemide (Furosemide 40 Mg/4 Ml Vial) 40 mg IV ONE ONE Stop: 03/08/24 16:22 Last Admin: 03/08/24 16:49 Dose: 40 mg Documented By: JAVAN Furosemide (Furosemide 20 Mg Tab) 20 mg [facility] Stop: 04/08/24 10:29 Last Admin: 03/10/24 08:05 Dose: 20 mg Documented By: Admin: 03/09/24 11:38 Dose: 20 mg Documented By: JAVAN Gabapentin (Gabapentin 800 Mg Tab) 800 mg PO TID [facility] Stop: 04/06/24 22:15 Last Admin: 03/10/24 08:06 Dose: 800 mg Documented By: Admin: 03/09/24 20:39 Dose: 800 mg Documented By: Admin: 03/09/24 14:10 Dose: 800 mg Documented By: Admin: 03/09/24 07:59 Dose: 800 mg Documented By: Admin: 03/08/24 21:13 Dose: 800 mg Documented By: Admin: 03/08/24 14:17 Dose: 800 mg Documented By: Admin: 03/08/24 08:57 Dose: 800 mg Documented By: Admin: 03/07/24 23:08 Dose: 800 mg Documented By: CONRAD Iron Sucrose 300 mg/ Sodium (Chloride) 265 mls @ 176.667 mls/hr IV TODAY ONE; Protocol Stop: 03/08/24 15:09 Last Infusion: 03/08/24 16:15 Dose: Infused Documented By: Admin: 03/08/24 14:17 Dose: 176.7 mls/hr Documented By: JAVAN Iron Sucrose 300 mg/ Sodium (Chloride) 265 mls @ 176.667 mls/hr IV ONE ONE; Protocol Stop: 03/09/24 08:59 Last Infusion: 03/09/24 10:12 Dose: Infused Documented By: Admin: 03/09/24 07:57 Dose: 176.7 mls/hr Documented By: JAVAN Insulin Aspart (Insulin Aspart Per Unit Charge) 0 units SC ACHS [facility] Stop: 04/06/24 22:15 Last Admin: 03/10/24 11:53 Dose: Not Given Documented By: Admin: 03/10/24 07:57 Dose: 2 units Documented By: ZHANNA Co-signed By: PK Admin: 03/09/24 20:10 Dose: Not Given Documented By: Admin: 03/09/24 17:21 Dose: 2 units Documented By: JAVAN Co-signed By: AM Admin: 03/09/24 12:06 Dose: 2 units Documented By: JAVAN Co-signed By: MALORIE Admin: 03/09/24 07:57 Dose: 3 units Documented By: JAVAN Co-signed By: MALORIE Admin: 03/08/24 21:09 Dose: 1 units Documented By: CHIO Co-signed By: COLTON Admin: 03/08/24 16:48 Dose: 2 units Documented By: JAVAN Co-signed By: REJI Admin: 03/08/24 12:23 Dose: 1 units Documented By: JAVAN Co-signed By: REJI Admin: 03/08/24 08:56 Dose: 2 units Documented By: JAVAN Co-signed By: REJI Admin: 03/07/24 23:13 Dose: Not Given Documented By: CONRAD Lactobacillus Acidophilus (Advanced Probiotic 625 Mg Capsule) 1,250 mg PO QPM [facility] Stop: 04/06/24 22:15 Last Admin: 03/09/24 20:41 Dose: 1,250 mg Documented By: Admin: 03/08/24 21:11 Dose: 1,250 mg Documented By: Admin: 03/07/24 23:07 Dose: 1,250 mg Documented By: CONRAD Lisinopril (Lisinopril 40 Mg Tab) 40 mg PO QAM [facility] Stop: 04/07/24 08:59 Last Admin: 03/10/24 08:06 Dose: 40 mg Documented By: Admin: 03/09/24 07:59 Dose: 40 mg Documented By: Admin: 03/08/24 08:58 Dose: 40 mg Documented By: JAVAN Magnesium Oxide (Magnesium Oxide 400 Mg Tab) 400 mg PO QPM [facility] Stop: 04/06/24 22:15 Last Admin: 03/09/24 20:38 Dose: 400 mg Documented By: Admin: 03/08/24 21:13 Dose: 400 mg Documented By: Admin: 03/07/24 23:07 Dose: 400 mg Documented By: CONRAD Melatonin (Melatonin 3 Mg Tab) 6 mg PO HS PRN PRN Reason: Sleep Stop: 04/06/24 23:04 Last Admin: 03/08/24 21:44 Dose: 6 mg Documented By: Admin: 03/07/24 23:24 Dose: 6 mg Documented By: CONRAD Metoprolol Succinate (Metoprolol Succ 50mg Ext Rel Tab) 50 mg PO BID [facility] Stop: 04/07/24 20:59 Last Admin: 03/09/24 07:59 Dose: 50 mg Documented By: Admin: 03/08/24 21:11 Dose: 50 mg Documented By: CHIO Metoprolol Succinate (Metoprolol Succ 25mg Ext Rel Tab) 75 mg PO BID [facility] Stop: 04/08/24 20:59 Last Admin: 03/10/24 08:05 Dose: 75 mg Documented By: Admin: 03/09/24 20:45 Dose: 75 mg Documented By: FRANCES Metoprolol Succinate (Metoprolol Succ 25mg Ext Rel Tab) 25 mg PO ONE ONE Stop: 03/09/24 10:28 Last Admin: 03/09/24 11:38 Dose: 25 mg Documented By: JAVAN Metoprolol Tartrate (Metoprolol Tartrate 50 Mg Tab) 50 mg PO BID [facility] Stop: 04/06/24 22:15 Last Admin: 03/08/24 08:57 Dose: 50 mg Documented By: Admin: 03/07/24 23:07 Dose: 50 mg Documented By: CORNAD Ondansetron HCl (Ondansetron Inj 2 Mg/Ml 2 Ml Vial) 4 mg IV Q6H PRN PRN Reason: Nausea Stop: 04/06/24 22:15 Last Admin: 03/08/24 21:04 Dose: 4 mg Documented By: CHIO Pantoprazole Sodium (Pantoprazole 40 Mg Tab) 40 mg PO QAM [facility] Stop: 04/07/24 08:59 Last Admin: 03/10/24 08:06 Dose: 40 mg Documented By: Admin: 03/09/24 07:58 Dose: 40 mg Documented By: Admin: 03/08/24 08:58 Dose: 40 mg Documented By: JAVAN Potassium Chloride (Potassium Chloride Crtab 20 Meq Tabcr) 40 meq PO NOW STA Stop: 03/07/24 20:37 Last Admin: 03/07/24 21:32 Dose: 40 meq Documented By: MARIA ALEJANDRA Tamsulosin HCl (Tamsulosin Hcl 0.4 Mg Cap) 0.4 mg PO HS [facility] Stop: 04/06/24 22:15 Last Admin: 03/09/24 20:40 Dose: 0.4 mg Documented By: Admin: 03/08/24 21:11 Dose: 0.4 mg Documented By: Admin: 03/07/24 23:07 Dose: 0.4 mg Documented By: CONRAD Thiamine HCl (Thiamine Hcl 100 Mg Tab) 200 mg PO BID [facility] Stop: 04/08/24 08:59 Last Admin: 03/10/24 08:05 Dose: 200 mg Documented By: Admin: 03/09/24 20:44 Dose: 200 mg Documented By: Admin: 03/09/24 07:59 Dose: 200 mg Documented By: JAVAN Discharge Plan Visit Data Chief Complaint: Shortness of Breath/Dyspnea Stated Complaint: SOB, PULSE LOW, HIGH BLOOD PRESSURE, WEAKNESS ED Provider: Luci Coles Discharge Problem: Symptomatic anemia, Atrial fibrillation with RVR, FLAHERTY (dyspnea on exertion) Patient Disposition: Admitted As Inpatient Discharge Instructions Interventions: ED Discharge Assessment Last Done: 03/07/24 21:39
[2024-03-10 07:37] VITALS: RESP 16
--- NOTE | 2024-03-10 08:03 | Hospitalist Progress Note ---
Date of Service March 10, 2024 Assessment & Plan (1) Symptomatic anemia: Plan: Hb 7.7 at time of hospital admission s/p 1 unit PRBCs anemia will exacerbate any underlying cardiopulmonary disease Hb today 9.1 he has a hx of macrocytosis & Fe deficiency (2) Acute heart failure with preserved ejection fraction: Plan: acute diastolic CHF in the setting of severe anemia, +/- rapid a.fib/a.tach, potentially other factors [facility] consulted appreciate management lasix IV on 03/08. 03/09 switched to p.o. Lasix 20 mg limited echo. No changes found. (3) Atrial fibrillation with rapid ventricular response: Plan: H/O CAD -> h/o [place] late LAD with stent Aflutter with ablation in past patient's admission EKG with a.fib with RVR he has prior h/o a.flutter (s/p ablation) and prior h/o PAF per records Changed metoprolol from tartrate to succinate at 75 mg twice daily continues cautiously on eliquis in face of anemia (4) Iron deficiency anemia: Plan: Severe FE deficiency Iron 21 transferrin sat 5%, ferritin 23 he has been anemic for 5+ years, but there has been progression of such over the last 12+ months certainly at risk of underlying GI bleeding in the setting of DAPT + Eliquis. of note - pt does have prior h/o gastric ulcer IV venofer 300mg x x 2 on 03/08 and 03/09 cont PPI once daily (5) Macrocytosis: Plan: suspect macrocytosis is from chronic etoh abuse B12/folate wnl TSH wnl he was taking a B12 supplement at home - cont for now (6) Infection of prosthetic left knee joint: Plan: Left TKA periprosthetic infection/Enterococcus bacteremia- Completed 6 weeks of daptomycin IV, begun on 07/26/2023, and since that time has been on suppressive therapy with doxycycline 100 mg p.o. twice daily check a surveillance blood culture to ensure his fatigue, etc is not from occult bacteremia. Blood culture drawn on 03/08 negative so far. (has a neurostimulator device - if this device was infected you would expect blood cultures to be +) (7) Diabetes mellitus, type 2: Plan: a1c 5.9% hold metformin novolog SSI BSGs ac/hs (8) Alcohol abuse: Plan: 4-6 beers/day no prior h/o etoh withdrawal -> add thiamine 200mg BID thus far no signs of withdrawal but low threshold to initiate AWSS protocol his alcohol abuse is likely contributing to his macrocytic anemia, could contribute to CHF decompensation, etc. Plan DVT proph - [facility] cont DAPT 02/10/[address]: "7 mm subsolid nodule within the right lung apex which contains a 3 mm solid component. This has increased in size compared to 10/14/2022 chest CTA. Therefore, this is suspicious for a primary bronchogenic malignancy along the adenocarcinoma spectrum. Pulmonary consultation and [address] follow-up recommended for further evaluation." refer to [facility] (or [facility]) pulmonary for this Admission and Anticipated Discharge Date Admission Date: March 09, 2024 Results & Data Results & Data Vital Signs (Past 12 Hours) Vital Signs Temp Pulse Pulse Resp BP Pulse Ox Pulse Ox 03/10/24 07:36 98.6 F 66 16 127/76 95 03/10/24 04:00 98.1 F 62 18 126/73 95 03/09/24 23:14 98.6 F 95 H 14 131/61 95 03/09/24 22:00 03/09/24 22:00 96 03/09/24 21:46 77 O2 Del Method O2 Del Method 03/10/24 07:36 Room Air 03/10/24 04:00 Room Air 03/09/24 23:14 Room Air 03/09/24 22:00 Room Air 03/09/24 22:00 Room Air 03/09/24 21:46 PG Care Time/CCT Total # of Minutes Spent Total Time Spent with Patient: Total time spent is greater than 50% in coordination of care (as documented) at patient's floor/unit and/or counseling patient: Coding Diagnoses Symptomatic anemia D64.9 Acute heart failure with preserved ejection fraction I50.31 Atrial fibrillation with rapid ventricular response I48.91 Iron deficiency anemia D50.9 Macrocytosis D75.89 Infection of prosthetic left knee joint T84.54XA Diabetes mellitus, type 2 E11.9 Alcohol abuse F10.10
[2024-03-10 11:47] VITALS: BP 163/77; PULSE 63; TEMP 98.8; O2SAT 93
--- NOTE | 2024-03-10 17:13 | Discharge Summary ---
Discharge Summary Date of Service March 10, 2024 Principal Dx & Hospital Course #1 = Principal Diagnosis (1) Symptomatic anemia: Hb 7.7 at time of hospital admission s/p 1 unit PRBCs anemia will exacerbate any underlying cardiopulmonary disease Hb at dc is 9.6, with recurrent anemia and macrocytosis will have Hematology evaluate and follow (2) Acute heart failure with preserved ejection fraction: acute diastolic CHF in the setting of severe anemia, +/- rapid a.fib/a.tach, potentially other factors [facility] consulted appreciate management lasix IV on 03/08. 03/09 switched to p.o. Lasix 20 mg at time of discharge limited echo. No changes found. (3) Atrial fibrillation with rapid ventricular response: H/O CAD -> h/o [place] late LAD with stent Aflutter with ablation in past patient's admission EKG with a.fib with RVR he has prior h/o a.flutter (s/p ablation) and prior h/o PAF per records Changed metoprolol from tartrate to succinate at 75 mg twice daily( difficult out pt dose maybe try to get to 100 or 50) continues cautiously on eliquis in face of anemia (4) Iron deficiency anemia: Severe FE deficiency Iron 21 transferrin sat 5%, ferritin 23 he has been anemic for 5+ years, but there has been progression of such over the last 12+ months certainly at risk of underlying GI bleeding in the setting of DAPT + Eliq uis. of note - pt does have prior h/o gastric ulcer IV venofer 300mg x x 2 on 03/08 and 03/09 cont PPI once daily (5) Macrocytosis: suspect macrocytosis is from chronic etoh abuse B12/folate wnl TSH wnl he was taking a B12 supplement at home - cont for now (6) Infection of prosthetic left knee joint: Left TKA periprosthetic infection/Enterococcus bacteremia- Completed 6 weeks of daptomycin IV, begun on 07/26/2023, and since that time has been on suppressive therapy with doxycycline 100 mg p.o. twice daily check a surveillance blood culture to ensure his fatigue, etc is not from occult bacteremia. Blood culture drawn on 03/08 negative so far. (has a neurostimulator device - if this device was infected you would expect blood cultures to be +) (7) Diabetes mellitus, type 2: a1c 5.9% hold metformin novolog SSI BSGs ac/hs (8) Alcohol abuse: 4-6 beers/day cessation councelling performed no prior h/o etoh withdrawal -> add thiamine 200mg BID thus far no signs of withdrawal but low threshold to initiate AWSS protocol his alcohol abuse is likely contributing to his macrocytic anemia, could contribute to CHF decompensation, etc. Plan DVT proph - Eliquis right CEA on 01/20/2024 ([facility]) cont DAPT 02/10/[address]: "7 mm subsolid nodule within the right lung apex which contains a 3 mm solid component. This has increased in size compared to 10/14/2022 chest CTA. Therefore, this is suspicious for a primary bronchogenic malignancy along the adenocarcinoma spectrum. Pulmonary consultation and [address] follow-up recommended for further evaluation." pt informed of nodule will discuss with pcp or heme onc appt Notes For Next Care Provider need nodule followed up consider titration of metoprolol succinate Heme will follow for need of additional venofer if needed Admission HPI Per Admitting Provider The patient is a 63-year-old male with a past medical history including nonsustained V. tach, status post ablation for atrial flutter, left TKA septic joint on chronic suppressive therapy, peripheral vascular disease status post left SFA and popliteal angioplasty on 12/31/2023, CAD, stenosis of both vertebral arteries, idiopathic polyneuropathy, lumbar postlaminectomy syndrome, BPH, diabetes mellitus, anxiety and depression, and sleep apnea. The patient presents to the emergency department due to worsening shortness of breath, generalized fatigue and myalgias arthralgias over the past 1 to 2 weeks. His hemoglobin was found to be 7.7 on ED labs, and has been prescribed 1 unit PRBCs by the ED, [facility]. Discharge Exam right eye subconjunctival hemorrhage cardiac sounds rate controlled lungs are clear Discharge Plan Discharge Items Patient Disposition: Home - Self-Care Reason For Visit: SYMPTOMATIC ANEMIA Discharge Diagnosis: low blood count with symptoms s/p transfusion low iron level with infusion of iron irregular heart beat with medication changes by cardiology lung nodule with recommended follow up outpt cat scan Activity: Resume your previous activity Non-emergency contact: Primary Care Provider, Family Assistant and Association Executive Call non-emergency contact if: your symptoms worsen Follow-up/Referrals: Mya Iqbal PA-C [Physician Element Setter] - 03/17/24 11:00 am (Dr. Lam did not have any available appointments. ) Diet: Regular Addtl Attending Provider Instructions: please avoid drinking alcohol please eat a healthy diet and consider taking a multiple vitamin follow up with Dr Lam for recheck of your blood count, discussion about colonoscopy and your lung nodule Pending Studies at Discharge: No Stand-Alone Forms: My [facility], Smoking Cessation Medications and DC Order Prescriptions: New metoprolol succinate 25 mg Tablet Extended Release 24 Hr 75 mg PO BID Qty: 180 2RF furosemide 20 mg Tablet 20 mg PO QAM Qty: 30 2RF Continued glimepiride 1 mg tablet 1 mg PO QAM Qty: 90 3RF Eliquis 5 mg tablet 5 mg PO BID Qty: 180 3RF pantoprazole 40 mg tablet,delayed release (DR/EC) 40 mg PO QAM Qty: 90 3RF duloxetine [Cymbalta] 60 mg capsule,delayed release(DR/EC) 60 mg PO QAM Qty: 90 3RF metformin 500 mg tablet extended release 24 hr 2,000 mg PO QAM Qty: 360 3RF lisinopril 40 mg tablet 40 mg PO QAM Qty: 90 3RF gabapentin 400 mg capsule 800 mg PO TID 90 Days Qty: 540 3RF tramadol 50 mg tablet 100 mg PO BID PRN (Reason: pain) Qty: 120 0RF aspirin [Adult Low Dose Aspirin] 81 mg tablet,delayed release (DR/EC) 81 mg PO QAM doxycycline hyclate 100 mg tablet 100 mg PO BID Rx Instructions: Pt: "I take 100mg by mouth twice daily. The pharmacy dispensed the medication incorrectly." Original Directions: 100mg by mouth daily magnesium oxide 400 mg magnesium capsule 400 mg PO QPM Rx Instructions: See notes in tcm- Pt has questions about this med for PCP at appt. acetaminophen 650 mg Tablet Extended Release 650 mg PO Q8H PRN (Reason: ARTHRITIS PAIN) Patient Comments: takes at least 2 tablets every day. cyanocobalamin (vitamin B-12) [Vitamin B-12] 1,000 mcg Tablet 1,000 mcg PO QAM clopidogrel [Plavix] 75 mg tablet 75 mg PO QAM tamsulosin 0.4 mg capsule 0.4 mg PO HS Repatha SureClick 140 mg/mL pen injector 140 mg subcut USEASDIRECTD Rx Instructions: Every 2 weeks Probiotic 20 billion cell Capsule 20,000 mmu cells PO QPM Rx Instructions: administer with a meal Discontinued metoprolol tartrate 50 mg tablet 50 mg PO BID Discharge Orders: Discharge Order (Routine); Ordered 03/10/24 Ordered By: Norberto Kidd Admission Data Admit Date/Time: 03/09/24 12:39 Attending Provider: Norberto Kidd Admit Provider: Mauricio Victoria Primary Care Provider: Nitish Lam Other Providers: Orville Conklin Other Interventions: Discharge Summary Assessment (RN) Last Done: 03/10/24 11:46 Hospital Stay Data Consultations 03/07/24 19:21 ED Decision to Admit Stat 03/08/24 13:35 Consult Cardiology Routine Pending Results Patient Have Any Pending Studies at Discharge: No Discharge Instructions Given to Patient (Per Discharging Provider) please avoid drinking alcohol please eat a healthy diet and consider taking a multiple vitamin follow up with Dr Lam for recheck of your blood count, discussion about colonoscopy and your lung nodule Total Time Total Time Spent Total Time Spent (In Minutes): It required greater than 30 minutes to prepare this patient for discharge. Coding Level of Care Code 56517 INP/OBS DISCH >30 MIN Diagnoses Symptomatic anemia D64.9 Acute heart failure with preserved ejection fraction I50.31 Atrial fibrillation with rapid ventricular response I48.91 Iron deficiency anemia D50.9 Macrocytosis D75.89 Infection of prosthetic left knee joint T84.54XA Diabetes mellitus, type 2 E11.9 Alcohol abuse F10.10
== END 2024-03-10 12:54 | disposition home or self-care (01) | DRG 811 ==
LOC: ED 17:14 → 2S 17:14 → SUATTDRO 20:48 → 2S 21:39 → SUATTDRO 03-09 12:39
DX: Z79.01 Long term (current) use of anticoagulants; Z79.02 Long term (current) use of antithrombotics/antiplatelets; Z98.62 Peripheral vascular angioplasty status; I11.0 Hypertensive heart disease with heart failure; D50.9 Iron deficiency anemia, unspecified; F41.9 Anxiety disorder, unspecified; E11.51 Type 2 diabetes mellitus with diabetic peripheral angiopathy without gangrene; T84.54XA Infection and inflammatory reaction due to internal left knee prosthesis, initial encounter; N40.0 Benign prostatic hyperplasia without lower urinary tract symptoms; Z88.8 Allergy status to other drugs, medicaments and biological substances; R91.8 Other nonspecific abnormal finding of lung field; Z88.0 Allergy status to penicillin; Z91.040 Latex allergy status; I47.19 Other supraventricular tachycardia; Z79.899 Other long term (current) drug therapy; I48.91 Unspecified atrial fibrillation; F32.A Depression, unspecified; I50.31 Acute diastolic (congestive) heart failure; Z95.5 Presence of coronary angioplasty implant and graft; E11.42 Type 2 diabetes mellitus with diabetic polyneuropathy; F10.10 Alcohol abuse, uncomplicated; G47.30 Sleep apnea, unspecified; Z86.16 Personal history of COVID-19; Z79.82 Long term (current) use of aspirin; I73.9 Peripheral vascular disease, unspecified; I25.10 Atherosclerotic heart disease of native coronary artery without angina pectoris; I25.2 Old myocardial infarction; Z11.52 Encounter for screening for COVID-19; K21.9 Gastro-esophageal reflux disease without esophagitis; Z79.84 Long term (current) use of oral hypoglycemic drugs; D75.89 Other specified diseases of blood and blood-forming organs; M96.1 Postlaminectomy syndrome, not elsewhere classified

== ENCOUNTER 2024-03-24 16:14 | Inpatient (IN) ==
--- NOTE | 2024-03-24 16:32 | Emergency Department Note ---
History of Present Illness General Chief complaint: Hypotension Stated complaint: dark stool, bp low, unable to walk, dizzy Time Seen by Provider: 03/24/24 16:21 History of Present Illness Provider Complaint: + melena Onset (ago): 1 week(s) Pain Consistency: + constant Maximum Pain Intensity: 5 Current Pain Intensity: 5 Relieved By: + none Exacerbated By: + bowel movement Context: + history of GI bleed, + alcohol abuse, + anticoagulant use (Eliquis) and + easy bruising; no alcohol ingestion(in addition to abuse) or no bleeding gums Associated symptoms: + abdominal pain (Epigastric); no nausea, no vomiting, no epistaxis, no fever, no chills, no headaches or no shortness of breath Home Medications Medication Instructions Recorded Confirmed Type acetaminophen 650 mg 650 mg PO Q8H PRN ARTHRITIS PAIN 12/06/20 03/17/24 History tablet,extended release cyanocobalamin (vitamin B-12) 1,000 mcg PO QAM 08/26/22 03/17/24 History 1,000 mcg tablet (Vitamin B-12) apixaban 5 mg tablet (Eliquis) 5 mg PO BID #180 tabs 06/30/23 03/17/24 Rx duloxetine 60 mg capsule,delayed 60 mg PO QAM #90 caps 07/02/23 03/17/24 Rx release (Cymbalta) pantoprazole 40 mg tablet,delayed 40 mg PO QAM #90 tabs 07/02/23 03/17/24 Rx release clopidogrel 75 mg tablet (Plavix) 75 mg PO QAM 07/18/23 03/17/24 History tamsulosin 0.4 mg capsule 0.4 mg PO HS 07/18/23 03/17/24 History metformin 500 mg tablet,extended 2,000 mg (4 x 500 mg) PO QAM #360 07/28/23 03/17/24 Rx release 24 hr tabs evolocumab 140 mg/mL subcutaneous 140 mg subcut USEASDIRECTD 09/16/23 03/17/24 History pen injector (Sally Villavicencio) doxycycline hyclate 100 mg tablet 100 mg PO BID 09/22/23 03/17/24 History magnesium oxide 400 mg PO QPM 09/22/23 03/17/24 History aspirin 81 mg tablet,delayed 81 mg PO QAM 10/07/23 03/17/24 History release (Adult Low Dose Aspirin) lactobacillus comb no.10 20 20,000 mmu cells PO QPM 10/08/23 03/17/24 History billion cell capsule (Probiotic) lisinopril 40 mg tablet 40 mg PO QAM #90 tabs 02/10/24 03/17/24 Rx gabapentin 400 mg capsule 800 mg (2 x 400 mg) PO TID 90 days 02/13/24 03/17/24 Rx #540 caps tramadol 50 mg tablet 100 mg (2 x 50 mg) PO BID PRN pain 02/13/24 03/17/24 Rx #120 tabs furosemide 20 mg tablet 20 mg PO QAM #30 tabs 03/10/24 03/17/24 Rx ascorbic acid (vitamin C) 500 mg 500 mg PO DAILY 03/11/24 03/17/24 History tablet metoprolol succinate 25 mg 75 mg (3 x 25 mg) PO BID #180 tabs 03/11/24 03/17/24 Rx tablet,extended release 24 hr glimepiride 1 mg tablet 1 mg PO QAM #90 tabs 03/18/24 Rx Allergies Allergy/AdvReac Type Severity Reaction Status Date / Time latex Allergy Unknown Rash Verified 02/09/24 13:59 Penicillins Allergy Unknown Rash Verified 02/09/24 13:59 adhesive AdvReac Unknown Rash Verified 02/09/24 13:59 dronedarone AdvReac Unknown Fatigued Verified 02/09/24 13:59 gemfibrozil AdvReac Unknown BODY ACHES Verified 02/09/24 13:59 NSAIDS (Non-Steroidal AdvReac Unknown TOLD NOT Verified 02/09/24 13:59 Anti-Inflamma TO TAKE - HX STOMACH ULCER Zfckutz-[id number] Reductase AdvReac Unknown body aches Verified 02/09/24 13:59 Inhibitor [Zeldnrq-Swf-Lsk Reductase Inhibitor] Past Med/Surg History Problem List (Updated 03/24/24 @ 18:51 by Rafael Phelan MD) GI bleed (Acute) Abnormal CT scan, lung Infection of prosthetic left knee joint Pulmonary nodule Iron deficiency anemia FLAHERTY (dyspnea on exertion) (Acute) Symptomatic anemia (Acute) Atrial fibrillation with RVR (Acute) Rotator cuff arthropathy of both shoulders Ventricular tachycardia (paroxysmal) History of total knee arthroplasty (Acute) Peripheral vascular disease (Acute) Stenosis of both vertebral arteries Idiopathic polyneuropathy Stenosis of right internal carotid artery Diabetic neuropathy Nocturia Chronic anemia Statin intolerance Nocturnal hypoxemia Ectopic atrial rhythm Osteoarthritis of right hip Trochanteric bursitis of left hip Presence of bare metal stent in anterior descending branch of left coronary artery Male erectile disorder of organic origin Vitamin D deficiency Medical History Alcohol abuse Macrocytosis Acute heart failure with preserved ejection fraction Atrial tachycardia, paroxysmal CAD (coronary artery disease) Postlaminectomy syndrome of lumbar region Peripheral arterial disease Severe occlusive disease S/p L common femoral endarterectomy with bovine patch and lithotripsy of SFA and Popliteal arteries , status post bilateral common iliac artery SURVEILLANCE MONITOR and stents. BPH (benign prostatic hyperplasia) Diabetes mellitus, type 2 NIDDM Anxiety and depression Hypertension Sleep apnea "Mild to moderate"-cpap has not been using for sometimes/recently been trying to get back to using. Has trouble tolerating mask. Peripheral arterial disease Peripheral vascular disease Diabetes mellitus, type 2 NIDDM History of anemia Stenosis of right internal carotid artery f/u dr. garcia-"reason for upcoming procedure" Ventricular tachycardia f/u dr. gutierrez Sleep apnea does not use his CPAP Hx of solitary pulmonary nodule monitoring>no change in size since 2021 BPH (benign prostatic hyperplasia) Anxiety and depression Nocturia History of cardioversion 01/2021, [facility]; f/u dr. gutierrez Neuropathy History of chronic back pain Neurogenic claudication due to lumbar stenosis History of COVID-19 03/18/2022>resolved 06/28/23 + home test - congestion. Tx with pill. Resolved. No current s/s. History of anxiety Paroxysmal atrial flutter 01/2021- s/p cardoversion- with excessive alcohol intake- felt to be contributing component. No AC. No recurrence per PCP records 07/29/22- - Recurrence in preop area prior to surgery - sent from ACU to ED- admitted to [facility] 07/29/22-07/30/22; f/u dr. gutierrez, [place] Bilateral carotid artery stenosis Per 11/2021 Carotid Doppler: 50-69% stenosis of right ICA, less than 50% stenosis of left ICA, greater than 50% stenosis of right ECA Antegrade flow in both vertebral arteries CAD in [place] artery s/p LAD stent x2 () History of gastric ulcer No recent issues Degenerative disc disease GERD (gastroesophageal reflux disease) Well controlled and stable Hyperlipidemia Myocardial infarction Anterolateral AL- 2008, [place], had cardiac cath w/2 stents; f/u [facility]a [facility] Surgical History History of right-sided carotid endarterectomy S/P ablation of atrial flutter Hx of transesophageal echocardiography (GLADYS) for monitoring 01/2021, [facility] History of revision of total knee arthroplasty left knee, with "clean out" per pt; sepsis in left knee in 07/2023, no current issues per pt-finished 6 week abx thru PICC line 09/10/23. Hx of cardiac cath 2008, "bad indigestion," x2 stents; asa abbasi Presence of neurostimulator 2022 History of cardiac radiofrequency ablation 04/09/2023 [facility] [place] for a-flutter S/P insertion of iliac artery stent 2022, [facility], Dr. Garcia/2 stents. History of endarterectomy Left Femoral Endarterectomy with Bovine Patch 05/08/2022 & right side done 05/28/2023 Hx of cataract extraction rt/lt. History of anesthesia reaction WITH BACK SURGERY 2004 - DISORIENTED, PULLED CATHETER OUT ([facility]) Fusion of spine ~2012, C4-C7, "HAVE 80% OF MOTION" History of lumbar surgery X 3 - 2004, 2006, 2019, [facility] History of total knee replacement right/left Hx of transurethral resection of prostate History of esophagogastroduodenoscopy (EGD) History of colonoscopy History of nasal septoplasty History of heart artery stent 2008, x2 stent, [place]; f/u [facility] Family History Mother Heart disease Diabetes Father Cancer Head and Neck Heart disease Brother Lung cancer Carotid artery stenosis Brother Diabetes Brother Coronary heart disease Sister No problems noted. Other No family history of adverse response to anesthesia Denies family history of Ovarian cancer Prostate cancer Myocardial infarction Breast cancer Colorectal cancer Social History Smoking Status: Current some day smoker Tobacco Type: Cigarettes and Smokeless Tobacco (Dip or Chew) Age Started Using Tobacco: 18; packs per day: 0.5; Cigarettes Per Day: 10; Second Hand Exposure: Yes; Do You Dip or Chew Tobacco: Yes; Hx Alcohol Use: Yes Alcohol type: beer Alcohol type Comment: 6-8 beers Hx Substance Use: No Preferred Language: Omani Communication Ability: Effective Visual Impairment: No Limitations Hosted Services Analyst Required: No Beliefs That Will Affect Care: None marital status: Current Living Situation: Spouse Current Living Situation Comment: Lives at home with current occupational status: retired How many Children do You have: 4 Feels Safe at Home: Yes Childhood Exposure to Second-Hand Smoke: Yes Diet: regular caffeine: Yes Dental Care, Regularly: Yes Physical Activity Frequency: Does not Exercise Seatbelt Use: always Sunscreen Use: No Assistive Devices: Cane and Scooter/Electric Scooter Physical Exam 2 Vital Signs: Vital Signs - 24 hr 03/24/24 16:16 03/24/24 16:48 03/24/24 17:24 Temperature 36.8 C Temperature Source Skin Pulse Rate 83 78 69 Pulse Rate [Apical ] Respiratory Rate 18 Respiratory Effort / Characteristics Respiratory Depth Respiratory Patter n Blood Pressure 83/54 L Blood Pressure [Le ft Arm] Blood Pressure Alison n 63 Blood Pressure Alison n [Left Arm] Blood Pressure Pos ition [Left Arm] Pulse Oximetry 97 Oxygen Delivery Me thod Room Air Room Air Sepsis Recent Feve r Within 48 Hours No Sepsis New/Unexpla ined Change in Men manpreet Status No Sepsis Action Take n by Nursing No Action Required 03/24/24 17:28 03/24/24 18:47 Temperature Temperature Source Pulse Rate Pulse Rate [Apical ] 74 Respiratory Rate 18 Respiratory Effort / Characteristics Non-Labored Sponta neous Respiratory Depth Normal Respiratory Patter n Regular Blood Pressure Blood Pressure [Le ft Arm] 108/51 L Blood Pressure Alison n Blood Pressure Alison n [Left Arm] 70 Blood Pressure Pos ition [Left Arm] Lying Pulse Oximetry 95 Oxygen Delivery Me thod Room Air Room Air Sepsis Recent Feve r Within 48 Hours Sepsis New/Unexpla ined Change in Men manpreet Status Sepsis Action Take n by Nursing Physical Exam: Physical Exam GENERAL: oriented to person, place, and time. appears well-developed and well- nourished. She does not appear distressed. HENT: Exam performed. -Head: Normocephalic and atraumatic. -Right Ear: External ear normal. No mastoid erythema -Left Ear: External ear normal. No mastoid erythema -Mouth/Throat: The oropharynx is clear and moist. No trismus in the jaw. No dental abscesses or uvula swelling. No oropharyngeal exudate or tonsillar abscesses. EYES: Conjunctivae and EOM are normal.Right eye exhibits no discharge. Left eye exhibits no discharge. No scleral icterus. NECK: Normal range of motion. Neck supple. No JVD present. No tracheal deviation and normal range of motion present. CV: Normal rate, irregular rhythm, normal heart sounds and intact distal pulses. There is no peripheral edema. Palpable radial pulses bue. PULM/CHEST: Effort normal and breath sounds normal. No respiratory distress. No stridor. no wheezes.no rales. -Chest Wall: no tenderness to palpation ABD: The abdomen is soft. Bowel sounds are normal. no distension. No mass is present. There is tenderness to palpation of the epigastric area. There is no rebound, no guarding, no De La Cruz's sign and no tenderness at McBurney's point. Rovsig negative Rectal: Melanotic stool. Hemoccult positive. MUSC/SKEL: Normal range of motion. There is no peripheral edema, tenderness or deformity. NEURO: Motor and sensation grossly intact. SKIN: Skin is warm and dry. not diaphoretic. PSYCH: normal mood and affect. Behavior is normal. Judgment and thought content normal. Course Course 1621: The patient was evaluated in room C12. A complete history and physical exam was performed Cardiac monitoring: An order was placed for continuous cardiac monitoring. The monitor shows a rate of 80 with atrial fibrilation rhythm interpreted by in 1748: Vital signs improved status post IV fluid administration. Labs show white blood cell count of 10.06. Hemoglobin 9.4. Platelet count 279. Coagulation studies unremarkable. Lipase and LFTs unremarkable. CT abdomen pelvis shows possible heterogeneous enhancement of the left upper pole of the kidney likely related to a streak artifact however a focus of pyelonephritis could appear similar. Urinalysis pending. Given the patient having history of alcohol abuse, GI bleed requiring blood transfusions, and currently on Eliquis will admit the patient for GI bleed and serial hemoglobin/GI evaluation. Patient continued on Protonix drip. Administered Medications Pantoprazole Sodium 40 mg/ (Dextrose) 100 mls @ 20 mls/hr IV Q5H LULU Stop: 04/23/24 16:44 Last Admin: 03/24/24 17:33 Dose: 8 mg/hr, 20 mls/hr Documented By: NAOMI Discontinued Medications Sodium Chloride (Nss) 1,000 mls @ 999 mls/hr IV .Q1H1M ONE Stop: 03/24/24 17:28 Last Infusion: 03/24/24 17:55 Dose: Infused Documented By: Admin: 03/24/24 16:38 Dose: 999 mls/hr Documented By: CHARLI Pantoprazole Sodium 80 mg/ (Dextrose) 120 mls @ 480 mls/hr IV NOW ONE Stop: 03/24/24 16:42 Last Infusion: 03/24/24 17:55 Dose: Infused Documented By: Admin: 03/24/24 17:33 Dose: 480 mls/hr Documented By: NAOMI Ioversol (Optiray 320 100ml) 91 ml IV ONCE ONE Stop: 03/24/24 17:14 Last Admin: 03/24/24 17:14 Dose: 91 ml Documented By: LILIYA Pantoprazole Sodium (Pantoprazole Bolus/Drip) 1 each IV NOW STA Stop: 03/24/24 16:29 Last Admin: 03/24/24 18:07 Dose: Not Given Documented By: ZENA Medical Decision Making Laboratory Data Attestation: I reviewed the patient's lab results. 03/24/24 16:34 03/24/24 16:34 Lab Results 03/24/24 03/24/24 03/24/24 Range/Units 16:34 16:49 17:59 WBC 10.06 (4.8-10.8) K/ul RBC 2.92 L (4.70-6.10) M/uL Hgb 9.4 L (14.0-18.0) g/dl POC Hgb 9.9 L (14.0-18.0) g/dl Hct 30.0 L (42.0-52.0) % POC Hct 29 L (42-52) % MCV 102.7 H (80.0-100.0) fL MCH 32.2 (25.0-34.0) pg MCHC 31.3 L (32.0-36.0) g/dL RDW Std Deviation 71.0 H (36.4-46.3) fL RDW Coeff of Kvng 18.9 H (11.5-14.5) % Plt Count 279 (130-400) K/uL MPV 11.3 (9.4-12.4) fL Immature Gran % (Auto) 2.8 % Neut % (Auto) 67.7 % Lymph % (Auto) 17.5 % [place] % (Auto) 9.8 % Eos % (Auto) 1.3 % Baso % (Auto) 0.9 % Neut # (Auto) 6.81 H (1.40-6.50) K/uL Lymph # (Auto) 1.76 (1.20-3.40) K/uL [place] # (Auto) 0.99 H (0.11-0.59) K/uL Eos # (Auto) 0.13 (0.00-0.50) K/uL Baso # (Auto) 0.09 (0.00-0.20) K/uL Immature Gran # (Auto) 0.28 H (0.01-0.20) K/uL Absolute Nucleated RBC 0.02 (0.00-0.12) K/uL Nucleated RBC % (auto) 0.2 % PT 11.4 (9.0-12.0) Seconds INR 1.1 (0.9-1.1) APTT 25 (21-31) Seconds PTT Ratio 0.9 POC Sodium 129 L (135-144) mmol/L Sodium 130 L (136-145) mmol/L POC Potassium 4.1 (3.3-5.0) mmol/L Potassium 4.4 (3.5-5.1) mmol/L POC Chloride 96 L (101-112) mmol/L Chloride 96 L (98-107) mmol/L Carbon Dioxide 22 (21-32) mmol/L POC Total CO2 18 L (24-31) mmol/L Anion Gap 12 H (3-11) POC Anion Gap 19.0 (16-25) mmol/L POC BUN 25 H (7-18) mg/dl BUN 26 H (6-23) mg/dl Creatinine 0.93 (0.6-1.4) mg/dl POC Creatinine 1.1 (0.6-1.3) mg/dl Est Cr Clr Drug Dosing Not Reportable eGFR 90.56 BUN/Creatinine Ratio 28.0 H (10-20) Glucose 83 (70-99(Fasting)) mg/dl POC Glucose (other) 83 (70-99) mg/dl Calcium 9.7 (8.6-10.3) mg/dl POC Ioniz Calcium Sky 1.18 (1.12-1.32) mmol/l Total Bilirubin 0.2 (0.2-1.0) mg/dl Direct Bilirubin 0.1 (0-0.2) mg/dl AST 17 (13-39) U/L ALT 21 (7-52) U/L Alkaline Phosphatase 75 (34-104) U/L Total Protein 7.1 (6.0-8.3) gm/dl Albumin 4.0 (3.4-5.0) gm/dl Lipase 37 (11-82) U/L Urine Color Yellow Urine Appearance Clear (Clear) Urine pH 5.5 (4.5-7.5) Ur Specific [place] 1.032 H (1.000-1.030) Urine Protein Negative (Negative) Urine Glucose (UA) Negative (Negative) Urine Ketones Trace H (Negative) Urine Blood Negative (Negative) Urine Nitrite Negative (Negative) Urine Bilirubin Negative (Negative) Urine Urobilinogen Negative (Negative) Ur Leukocyte Esterase Negative (Negative) Blood Type O Positive Antibody Screen NEGATIVE Imaging Data Radiologist's Impression: Abdomen/Pelvis CT 03/24/24 16:28 CT OF THE ABDOMEN AND PELVIS WITH CONTRAST CLINICAL HISTORY: epigastric abd pain etoh abuse COMPARISON STUDY: MRI of the abdomen March 04, 2024. CTA of the abdomen January 03, 2023. TECHNIQUE: Following IV administration of 91 mL of Optiray, axial images of the abdomen and pelvis were obtained from the lung bases to the proximal femurs. Images were reviewed in the axial, sagittal, and coronal planes. IV contrast was administered without complication. Automated exposure control was utilized for the study. A dose lowering technique was utilized adhering to the principles of ALARA. CT DOSE: 1442.85 mGy.cm FINDINGS: No pneumatosis, free air or portal venous gas is present. There are no suspicious hepatic lesions. There is no biliary or pancreatic ductal dilatation. Spleen, adrenal glands, right kidney and pancreas are unremarkable. There is a left renal cyst. There is possible heterogeneous enhancement of the upper pole of the left kidney on image 116 and 385. This may be artifactual, related to the adjacent stimulator battery pack. There is no hydronephrosis. The appendix is normal. Caliber and wall thickness of small and large bowel are normal. There is no evidence for a bowel obstruction. There is no lymphadenopathy. There are no fluid collections. Extensive aortoiliac atherosclerotic plaque is noted. Bilateral common iliac artery stents are suboptimally assessed on this exam but appear grossly patent. There is mild hepatic steatosis. IMPRESSION: 1. Possible heterogeneous enhancement within the upper pole of the left kidney. This is likely related to streak artifact from the adjacent stimulator battery pack. However, a focus of pyelonephritis or small renal infarct could appear similar. 2. No bowel obstruction. No bowel wall thickening. 3. Hepatic steatosis. ACT 112: Negative or not required by law. Electronically signed by: Tobin Acuna M.D. 03/24/2024 5:31 PM ECG Data Attestation: I personally reviewed and interpreted this ECG as follows: Rate (beats per minute): 72 Rhythm: normal sinus Findings: no ST depression, no ST elevation or no prolonged QT [facility] Narrative 1621: The patient was evaluated in room C12. A complete history and physical exam was performed Cardiac monitoring: An order was placed for continuous cardiac monitoring. The monitor shows a rate of 80 with atrial fibrilation rhythm interpreted by in 1748: Vital signs improved status post IV fluid administration. Labs show white blood cell count of 10.06. Hemoglobin 9.4. Platelet count 279. Coagulation studies unremarkable. Lipase and LFTs unremarkable. CT abdomen pelvis shows possible heterogeneous enhancement of the left upper pole of the kidney likely related to a streak artifact however a focus of pyelonephritis could appear similar. Urinalysis pending. Given the patient having history of alcohol abuse, GI bleed requiring blood transfusions, and currently on Eliquis will admit the patient for GI bleed and serial hemoglobin/GI evaluation. Patient continued on Protonix drip. Impression & Plan GI bleed Discharge Plan Visit Data Chief Complaint: Hypotension Stated Complaint: dark stool, bp low, unable to walk, dizzy ED Provider: Rafael Phelan Discharge Problem: GI bleed Patient Disposition: Admitted As Inpatient Forms Stand Alone Forms: [facility] Prescriptions Prescriptions: No Action Eliquis 5 mg tablet 5 mg PO BID Qty: 180 3RF pantoprazole 40 mg tablet,delayed release (DR/EC) 40 mg PO QAM Qty: 90 3RF duloxetine [Cymbalta] 60 mg capsule,delayed release(DR/EC) 60 mg PO QAM Qty: 90 3RF metformin 500 mg tablet extended release 24 hr 2,000 mg PO QAM Qty: 360 3RF lisinopril 40 mg tablet 40 mg PO QAM Qty: 90 3RF gabapentin 400 mg capsule 800 mg PO TID 90 Days Qty: 540 3RF tramadol 50 mg tablet 100 mg PO BID PRN (Reason: pain) Qty: 120 0RF metoprolol succinate 25 mg tablet extended release 24 hr 75 mg PO BID Qty: 180 2RF glimepiride 1 mg tablet 1 mg PO QAM Qty: 90 3RF aspirin [Adult Low Dose Aspirin] 81 mg tablet,delayed release (DR/EC) 81 mg PO QAM doxycycline hyclate 100 mg tablet 100 mg PO BID Rx Instructions: Pt: "I take 100mg by mouth twice daily. The pharmacy dispensed the medication incorrectly." Original Directions: 100mg by mouth daily magnesium oxide 400 mg magnesium capsule 400 mg PO QPM Rx Instructions: See notes in tcm- Pt has questions about this med for PCP at appt. ascorbic acid (vitamin C) 500 mg tablet 500 mg PO DAILY acetaminophen 650 mg Tablet Extended Release 650 mg PO Q8H PRN (Reason: ARTHRITIS PAIN) Patient Comments: takes at least 2 tablets every day. cyanocobalamin (vitamin B-12) [Vitamin B-12] 1,000 mcg Tablet 1,000 mcg PO QAM clopidogrel [Plavix] 75 mg tablet 75 mg PO QAM tamsulosin 0.4 mg capsule 0.4 mg PO HS Repatha SureClick 140 mg/mL pen injector 140 mg subcut USEASDIRECTD Rx Instructions: Every 2 weeks Probiotic 20 billion cell Capsule 20,000 mmu cells PO QPM Rx Instructions: administer with a meal furosemide 20 mg Tablet 20 mg PO QAM Qty: 30 2RF Referrals Referrals: Nitish Lam MD [Primary Care Provider] - Discharge Problem: GI bleed Qualifiers: GI bleed type/associated pathology: unspecified gastrointestinal hemorrhage type Qualified Code(s): K92.2 - Gastrointestinal hemorrhage, unspecified
[2024-03-24] MEDS: SODIUM CHLORIDE 0.9% 1,000 ML IV ONE (16:38)
[2024-03-24 16:49] LABS: Basophils # (auto) 0.09 K/uL (0.00-0.20); Basophils % (auto) 0.9 %; Eosinophils # (auto) 0.13 K/uL (0.00-0.50); Eosinophils % (auto) 1.3 %; Hemoglobin 9.4 g/dl (14.0-18.0); Immature Granulocytes # (auto) 0.28 K/uL (0.01-0.20); Immature Granulocytes % (auto) 2.8 %; Lymphocytes # (auto) 1.76 K/uL (1.20-3.40); Lymphocytes % (auto) 17.5 %; Mean Corpuscular Hemoglobin 32.2 pg (25.0-34.0); Mean Corpuscular Hgb Conc 31.3 g/dL (32.0-36.0); Mean Corpuscular Volume 102.7 fL (80.0-100.0); Mean Platelet Volume 11.3 fL (9.4-12.4); Monocytes # (auto) 0.99 K/uL (0.11-0.59); Monocytes % (auto) 9.8 %; Neutrophils # (auto) 6.81 K/uL (1.40-6.50); Neutrophils % (auto) 67.7 %; Nucleated RBC # (auto) 0.02 K/uL (0.00-0.12); Nucleated RBC % (auto) 0.2 %; Platelet Count 279 K/uL (130-400); RDW Coefficient of Variation 18.9 % (11.5-14.5); Red Blood Count 2.92 M/uL (4.70-6.10); White Blood Count 10.06 K/ul (4.8-10.8)
[2024-03-24 17:01] LABS: iSTAT Creatinine 1.1 mg/dl (0.6-1.3); iSTAT Hemoglobin 9.9 g/dl (14.0-18.0); iSTAT Ionized Calcium 1.18 mmol/l (1.12-1.32); iSTAT Potassium 4.1 mmol/L (3.3-5.0)
[2024-03-24 17:05] LABS: Alanine Aminotransferase 21 U/L (7-52); Alkaline Phosphatase 75 U/L (34-104); Anion Gap 12 (3-11); Aspartate Aminotransferase 17 U/L (13-39); Bilirubin Direct 0.1 mg/dl (0-0.2); Bilirubin,Total 0.2 mg/dl (0.2-1.0); Blood Urea Nitrogen 26 mg/dl (6-23); Calcium 9.7 mg/dl (8.6-10.3); Carbon Dioxide 22 mmol/L (21-32); Chloride 96 mmol/L (98-107); Glucose 83 mg/dl (70-99(Fasting)); Lipase 37 U/L (11-82); Potassium 4.4 mmol/L (3.5-5.1); Sodium 130 mmol/L (136-145); Total Protein 7.1 gm/dl (6.0-8.3)
[2024-03-24 17:14] LABS: INR 1.1 (0.9-1.1); Partial Thromboplastin Ratio 0.9; Partial Thromboplastin Time 25 Seconds (21-31); Prothrombin Time 11.4 Seconds (9.0-12.0)
[2024-03-24] MEDS: OPTIRAY 320 100ml IV ONE (17:14)
[2024-03-24] MEDS: PANTOprazole 40 MG in DEXTROSE 5% MINI-B 100 ML IV SCH (17:33)
[2024-03-24] MEDS: PANTOprazole 80 MG in DEXTROSE 5% 100 ML IV ONE (17:33)
--- NOTE | 2024-03-24 17:34 | CT Scan Report ---
CT OF THE ABDOMEN AND PELVIS WITH CONTRAST CLINICAL HISTORY: epigastric abd pain etoh abuse COMPARISON STUDY: MRI of the abdomen March 04, 2024. CTA of the abdomen January 03, 2023. TECHNIQUE: Following IV administration of 91 mL of Optiray, axial images of the abdomen and pelvis we re obtained from the lung bases to the proximal femurs. Images were reviewed in the axial, sagittal, and coronal planes. IV contrast was administered without complication. Automated exposure control wa s utilized for the study. A dose lowering technique was utilized adhering to the principles of ALARA . CT DOSE: 1442.85 mGy.cm FINDINGS: No pneumatosis, free air or portal venous gas is present. There are no suspicious hepatic l esions. There is no biliary or pancreatic ductal dilatation. Spleen, adrenal glands, right kidney and pancreas are unremarkable. There is a left renal cyst. There is possible heterogeneous enhancement o f the upper pole of the left kidney on image 116 and 385. This may be artifactual, related to the adj acent stimulator battery pack. There is no hydronephrosis. The appendix is normal. Caliber and wall t hickness of small and large bowel are normal. There is no evidence for a bowel obstruction. There is no lymphadenopathy. There are no fluid collections. Extensive aortoiliac atherosclerotic plaque is no nandini. Bilateral common iliac artery stents are suboptimally assessed on this exam but appear grossly p atent. There is mild hepatic steatosis. IMPRESSION: 1. Possible heterogeneous enhancement within the upper pole of the left kidney. This is likely relate d to streak artifact from the adjacent stimulator battery pack. However, a focus of pyelonephritis or small renal infarct could appear similar. 2. No bowel obstruction. No bowel wall thickening. 3. Hepatic steatosis. ACT 112: Negative or not required by law. Electronically signed by: Toibn Acuna M.D. 03/24/2024 5:31 PM
[2024-03-24] MEDS: PANTOPRAZOLE BOLUS/DRIP IV STA (18:07)
[2024-03-24 18:12] LABS: Appearance Urine Clear (Clear); Bilirubin Urine Negative (Negative); Blood Urine Negative (Negative); Color Urine Yellow; Glucose Urine UA Negative (Negative); Ketones Urine Trace (Negative); Leukocyte Esterase Urine Negative (Negative); Nitrite Urine Negative (Negative); Protein Urine Negative (Negative); Specific Gravity Urine 1.032 (1.000-1.030); Urobilinogen Urine Negative (Negative); pH Urine 5.5 (4.5-7.5)
--- NOTE | 2024-03-24 20:19 | History & Physical Report ---
Date of Service March 24, 2024 Assessment & Plan (1) Pre-syncope: (2) Hypotension: (3) Melena: (4) Abdominal pain: (5) Upper GI bleed: (6) Acute blood loss anemia: (7) Diabetes mellitus: (8) Atrial fibrillation with RVR: Plan 1. Presyncope/Hypotension Pt presented to ED with c/o dizziness and presyncope that began today. Only recent home medication change was metoprolol 50mg increased to 75mg, change was made 2 weeks ago. Pt was in A-fib RVR at his last admission, but on EKG today, pt is in sinus rhythm. Will consider presyncope as symptom of a-fib at home with conversion upon presenting to ED or mistaken extra dose of home BP meds as cause for dizziness and hypotension vs acute blood loss. - Hold lisinopril and tamsulosin - Continue metoprolol 75 mg BID 2. Abdominal pain/melena He reports black stools and mid epigastric abdominal pain for the last 5 days. He is hypotensive with a positive fecal occult blood, and this Hgb is stable at 9.4 (baseline is approx 10.5). CTAB noted mild hepatic steatosis, heterogenous enhancement of the upper pole of the left kidney indicating either a possible cyst or artifact- no hydronephrosis. - Consult GI for EGD tomorrow - NPO after midnight - Continue pantoprazole drip - Hold Eliquis, aspirin, and Plavix 3. Acute blood loss anemia/Upper GI bleed Report of melena x 5 days and history of gastric ulcer. Fecal occult was positive in ED, Hgb currently stable at 9.4. Pt was admitted 2 weeks ago at [facility] for anemia with a hgb of 7.7 and received 1 unit of pRBCs, his d/c hgb was 9.6. - Repeat H&H at midnight - Transfusion threshold is 7 4. DM2 Last known A1c was 5.9% -Hold home meds of metformin and glimepiride -NovoLog SSI, correction factor of 50 5. Hx of A-fib with RVR Present at last admission on 03/07. Pt currently in sinus rhythm. - Admit to med tele - Continue metoprolol 75mg BID 6. Alcohol use Pt endorses 2-6 beers daily with his last drink this afternoon. Pt did not have withdrawal during last admission over 4 days. - Continue Gabapentin 800mg TID - Consider AWSS protocol during his stay Other chronic conditions: Peripherial Vascular disease- holding DAPT and Eliquis due to possible Upper GI bleed, will resume if ruled out Hx of L TKA septic joint- Continue Doxycycline 100mg qd Diabetic neuropathy- Continue Duloxetine 60mg qd and gabapentin 800mg TID Iron deficiency anemia-During last hospital stay on 03/10, pt's Fe was 21, transferrin sat was 5% and ferritin was 23. On 03/18, Fe was 95, transferrin was 333. He was given 300mg IV Venofer x 2 over 2 days. His B12 and folate where within normal limits. - Consider IV Venofer Dispo- Med tele Diet- Clear liquids, NPO after midnight VTE prophylaxis- SCDs Code-full History of Present Illness Chief Complaint: Presyncope, abdominal pain, black stools Primary Care Provider: Nitish Lam MD Pt is a 64 yo male with PMH of DM2, iron deficiency anemia, A-fib with RVR, peripheral vascular disease with recent right CEA and left FEA in Dec 2023, bilateral TKA with ongoing post surgical infection at left knee and hx of gastric ulcer. Pt presents with presyncope that began this afternoon as well as 5 days of upper, mid gastric abdominal pain and black stools. Pt states his abdominal pain is constant without anything that makes it worse or better. He states that his stools are dark, but formed. He denies emily blood in the commode following a bowel movement. Pt had nausea earlier today with some "dry heaving". He denies vomiting, bloody emesis, or diarrhea. Pt also denies chest pain, SOB, dysuria, hematuria. Pt states his blood pressure medication of metoprolol was increased from 50mg to 75 mg 2 weeks ago, today was the first day he noted dizziness and low blood pressures. Pt endorses daily use of alcohol ranging from 2-6 beers per day. Pt states he drank 2 beers this afternoon. Allergies Allergy/AdvReac Type Severity Reaction Status Date / Time latex Allergy Unknown Rash Verified 03/24/24 19:03 Penicillins Allergy Unknown Rash Verified 03/24/24 19:03 adhesive AdvReac Unknown Rash Verified 03/24/24 19:03 dronedarone AdvReac Unknown Fatigued Verified 03/24/24 19:03 gemfibrozil AdvReac Unknown BODY ACHES Verified 03/24/24 19:03 NSAIDS (Non-Steroidal AdvReac Unknown TOLD NOT Verified 03/24/24 19:03 Anti-Inflamma TO TAKE - HX STOMACH ULCER Nfrtdlk-RJF-AmJ Reductase AdvReac Unknown body aches Verified 03/24/24 19:03 Inhibitor [Bgtoeem-Acx-Lzh Reductase Inhibitor] Home Medications Medication Instructions Recorded Confirmed Type acetaminophen 650 mg 650 mg PO Q8H PRN ARTHRITIS PAIN 12/06/20 03/24/24 History tablet,extended release cyanocobalamin (vitamin B-12) 1,000 mcg PO QAM 08/26/22 03/24/24 History 1,000 mcg tablet (Vitamin B-12) apixaban 5 mg tablet (Eliquis) 5 mg PO BID #180 tabs 06/30/23 03/24/24 Rx duloxetine 60 mg capsule,delayed 60 mg PO QAM #90 caps 07/02/23 03/24/24 Rx release (Cymbalta) pantoprazole 40 mg tablet,delayed 40 mg PO QAM #90 tabs 07/02/23 03/24/24 Rx release clopidogrel 75 mg tablet (Plavix) 75 mg PO QAM 07/18/23 03/24/24 History tamsulosin 0.4 mg capsule 0.4 mg PO HS 07/18/23 03/24/24 History metformin 500 mg tablet,extended 2,000 mg (4 x 500 mg) PO QAM #360 07/28/23 03/24/24 Rx release 24 hr tabs evolocumab 140 mg/mL subcutaneous 140 mg subcut USEASDIRECTD 09/16/23 03/24/24 History pen injector (Repatha SureClick) doxycycline hyclate 100 mg tablet 100 mg PO BID 09/22/23 03/24/24 History magnesium oxide 400 mg PO QPM 09/22/23 03/24/24 History aspirin 81 mg tablet,delayed 81 mg PO QAM 10/07/23 03/24/24 History release (Adult Low Dose Aspirin) lactobacillus comb no.10 20 20,000 mmu cells PO QPM 10/08/23 03/24/24 History billion cell capsule (Probiotic) lisinopril 40 mg tablet 40 mg PO QAM #90 tabs 02/10/24 03/24/24 Rx gabapentin 400 mg capsule 800 mg (2 x 400 mg) PO TID 90 days 02/13/24 03/24/24 Rx #540 caps tramadol 50 mg tablet 100 mg (2 x 50 mg) PO BID PRN pain 02/13/24 03/24/24 Rx #120 tabs furosemide 20 mg tablet 20 mg PO QAM #30 tabs 03/10/24 03/24/24 Rx metoprolol succinate 25 mg 75 mg (3 x 25 mg) PO BID #180 tabs 03/11/24 03/24/24 Rx tablet,extended release 24 hr glimepiride 1 mg tablet 1 mg PO QAM #90 tabs 03/18/24 03/24/24 Rx Past Med/Surg History Problem List Alcohol abuse Diabetes mellitus Upper GI bleed Acute blood loss anemia Abdominal pain Hypotension Melena Black stool Abdominal pain Pre-syncope GI bleed (Acute) Abnormal CT scan, lung Infection of prosthetic left knee joint Pulmonary nodule Iron deficiency anemia FLAHERTY (dyspnea on exertion) (Acute) Symptomatic anemia (Acute) Atrial fibrillation with RVR (Acute) Rotator cuff arthropathy of both shoulders Ventricular tachycardia (paroxysmal) History of total knee arthroplasty (Acute) Peripheral vascular disease (Acute) Stenosis of both vertebral arteries Idiopathic polyneuropathy Stenosis of right internal carotid artery Diabetic neuropathy Nocturia Chronic anemia Statin intolerance Nocturnal hypoxemia Ectopic atrial rhythm Osteoarthritis of right hip Trochanteric bursitis of left hip Presence of bare metal stent in anterior descending branch of left coronary artery Male erectile disorder of organic origin Vitamin D deficiency Medical History Macrocytosis Acute heart failure with preserved ejection fraction Atrial tachycardia, paroxysmal CAD (coronary artery disease) Postlaminectomy syndrome of lumbar region Peripheral arterial disease Severe occlusive disease S/p L common femoral endarterectomy with bovine patch and lithotripsy of SFA and Popliteal arteries , status post bilateral common iliac artery FRUIT LOADER and stents. BPH (benign prostatic hyperplasia) Diabetes mellitus, type 2 NIDDM Anxiety and depression Hypertension Sleep apnea "Mild to moderate"-cpap has not been using for sometimes/recently been trying to get back to using. Has trouble tolerating mask. Peripheral arterial disease Peripheral vascular disease Diabetes mellitus, type 2 NIDDM History of anemia Stenosis of right internal carotid artery f/u dr. garcia-"reason for upcoming procedure" Ventricular tachycardia f/u dr. gutierrez Sleep apnea does not use his CPAP Hx of solitary pulmonary nodule monitoring>no change in size since 2021 BPH (benign prostatic hyperplasia) Anxiety and depression Nocturia History of cardioversion 01/2021, [facility]; f/u dr. gutierrez Neuropathy History of chronic back pain Neurogenic claudication due to lumbar stenosis History of COVID-19 03/18/2022>resolved 06/28/23 + home test - congestion. Tx with pill. Resolved. No current s/s. History of anxiety Paroxysmal atrial flutter 01/2021- s/p cardoversion- with excessive alcohol intake- felt to be contributing component. No AC. No recurrence per PCP records 07/29/22- - Recurrence in preop area prior to surgery - sent from ACU to ED- admitted to [facility] 07/29/22-07/30/22; f/u asa abbasi Bilateral carotid artery stenosis Per 11/2021 Carotid Doppler: 50-69% stenosis of right ICA, less than 50% stenosis of left ICA, greater than 50% stenosis of right ECA Antegrade flow in both vertebral arteries CAD in [place] artery s/p LAD stent x2 () History of gastric ulcer No recent issues Degenerative disc disease GERD (gastroesophageal reflux disease) Well controlled and stable Hyperlipidemia Myocardial infarction Anterolateral [place]- [place], [place], had cardiac cath w/2 stents; f/u asa ovalle Surgical History History of right-sided carotid endarterectomy S/P ablation of atrial flutter Hx of transesophageal echocardiography (GLADYS) for monitoring 01/2021, [facility] History of revision of total knee arthroplasty left knee, with "clean out" per pt; sepsis in left knee in 07/2023, no current issues per pt-finished 6 week abx thru PICC line 09/10/23. Hx of cardiac cath 2008, "bad indigestion," x2 stents; asa abbasi Presence of neurostimulator 2022 History of cardiac radiofrequency ablation 04/09/2023 [facility] [place] S/P insertion of iliac artery stent 2022, [facility], Dr. Garcia/2 stents. History of endarterectomy Left Femoral Endarterectomy with Bovine Patch 05/08/2022 & right side done 05/28/2023 Hx of cataract extraction rt/lt. History of anesthesia reaction WITH BACK SURGERY 2004 - DISORIENTED, PULLED CATHETER OUT ([facility]) Fusion of spine ~2013, C4-C7, "HAVE 80% OF MOTION" History of lumbar surgery X 3 - 2004, 2006, 2019, [facility] History of total knee replacement right/left Hx of transurethral resection of prostate History of esophagogastroduodenoscopy (EGD) History of colonoscopy History of nasal septoplasty History of heart artery stent 2009, x2 stent, [place]; f/u asa ovalle Family History Mother Heart disease Diabetes Father Cancer Head and Neck Heart disease Brother Lung cancer Carotid artery stenosis Brother Diabetes Brother Coronary heart disease Sister No problems noted. Other No family history of adverse response to anesthesia Denies family history of Ovarian cancer Prostate cancer Myocardial infarction Breast cancer Colorectal cancer Social History Smoking Status: Current every day smoker Tobacco Type: Cigarettes Age Started Using Tobacco: 18; packs per day: 0.5; Cigarettes Per Day: 6-8; Second Hand Exposure: No; Do You Dip or Chew Tobacco: No; Tobacco Cessation Education Requested by Patient: No Hx Alcohol Use: Yes Alcohol type: beer Alcohol type Comment: 6-8 beers Hx Substance Use: No Preferred Language: Albanian Communication Ability: Effective Visual Impairment: No Limitations Surgical Garment Fitter Required: No Beliefs That Will Affect Care: None marital status: Current Living Situation: Spouse Current Living Situation Comment: Lives at home with current occupational status: retired How many Children do You have: 4 Other Information That Helps Us Care for You: No Feels Safe at Home: Yes Safety Concerns: Feels Safe At This Time Childhood Exposure to Second-Hand Smoke: Yes Diet: regular caffeine: Yes Dental Care, Regularly: Yes Physical Activity Frequency: Does not Exercise Seatbelt Use: always Sunscreen Use: No Assistive Devices: Cane, CPAP and Scooter/Electric Scooter Assistive Devices Comment: for long periods of ambulation Review of Systems Review of Systems: As per HPI Physical Exam Constitutional: well developed and + obese; not in distress Eyes: PERRL, conjunctivae normal, anicteric sclerae Neck: trachea midline, no thyromegaly Respiratory: normal respiratory effort, lungs clear to auscultation Cardiovascular: Rate/Rhythm: regular rate and regular rhythm Heart Sounds: no gallop and no murmur Extremities: no edema Gastrointestinal (Abdomen): Inspection/Auscultation: abdomen normal to inspection and normal bowel sounds; abdomen not distended Skin: no rashes, warm and dry Neurologic: PERRL, EOMI, accommodation nl, no face palsy, no dysarthria Psychiatric: A+Ox3, euthymic affect Results & Data Results & Data Vital Signs (Past 12 Hours) Vital Signs Temp Pulse Pulse Resp BP BP Pulse Ox 03/24/24 17:28 74 18 108/51 L 95 03/24/24 17:24 69 03/24/24 16:48 78 03/24/24 16:16 36.8 C 83 18 83/54 L 97 O2 Del Method 03/24/24 17:28 Room Air 03/24/24 17:24 Room Air 03/24/24 16:48 03/24/24 16:16 Room Air Laboratory Results 03/24/24 03/24/24 03/24/24 Range/Units 17:59 16:49 16:34 WBC 10.06 (4.8-10.8) K/ul RBC 2.92 L (4.70-6.10) M/uL Hgb 9.4 L (14.0-18.0) g/dl POC Hgb 9.9 L (14.0-18.0) g/dl Hct 30.0 L (42.0-52.0) % POC Hct 29 L (42-52) % MCV 102.7 H (80.0-100.0) fL MCH 32.2 (25.0-34.0) pg MCHC 31.3 L (32.0-36.0) g/dL RDW Std Deviation 71.0 H (36.4-46.3) fL RDW Coeff of Kvng 18.9 H (11.5-14.5) % Plt Count 279 (130-400) K/uL MPV 11.3 (9.4-12.4) fL Immature Gran % (Auto) 2.8 % Neut % (Auto) 67.7 % Lymph % (Auto) 17.5 % Clare % (Auto) 9.8 % Eos % (Auto) 1.3 % Baso % (Auto) 0.9 % Neut # (Auto) 6.81 H (1.40-6.50) K/uL Lymph # (Auto) 1.76 (1.20-3.40) K/uL Clare # (Auto) 0.99 H (0.11-0.59) K/uL Eos # (Auto) 0.13 (0.00-0.50) K/uL Baso # (Auto) 0.09 (0.00-0.20) K/uL Immature Gran # (Auto) 0.28 H (0.01-0.20) K/uL Absolute Nucleated RBC 0.02 (0.00-0.12) K/uL Nucleated RBC % (auto) 0.2 % PT 11.4 (9.0-12.0) Seconds INR 1.1 (0.9-1.1) APTT 25 (21-31) Seconds PTT Ratio 0.9 POC Sodium 129 L (135-144) mmol/L Sodium 130 L (136-145) mmol/L POC Potassium 4.1 (3.3-5.0) mmol/L Potassium 4.4 (3.5-5.1) mmol/L POC Chloride 96 L (101-112) mmol/L Chloride 96 L (98-107) mmol/L Carbon Dioxide 22 (21-32) mmol/L POC Total CO2 18 L (24-31) mmol/L Anion Gap 12 H (3-11) POC Anion Gap 19.0 (16-25) mmol/L POC BUN 25 H (7-18) mg/dl BUN 26 H (6-23) mg/dl Creatinine 0.93 (0.6-1.4) mg/dl POC Creatinine 1.1 (0.6-1.3) mg/dl Est Cr Clr Drug Dosing Not Reportable eGFR 90.56 BUN/Creatinine Ratio 28.0 H (10-20) Glucose 83 (70-99(Fasting)) mg/dl POC Glucose (other) 83 (70-99) mg/dl Calcium 9.7 (8.6-10.3) mg/dl POC Ioniz Calcium Sky 1.18 (1.12-1.32) mmol/l Total Bilirubin 0.2 (0.2-1.0) mg/dl Direct Bilirubin 0.1 (0-0.2) mg/dl AST 17 (13-39) U/L ALT 21 (7-52) U/L Alkaline Phosphatase 75 (34-104) U/L Total Protein 7.1 (6.0-8.3) gm/dl Albumin 4.0 (3.4-5.0) gm/dl Lipase 37 (11-82) U/L Urine Color Yellow Urine Appearance Clear (Clear) Urine pH 5.5 (4.5-7.5) Ur Specific [place] 1.032 H (1.000-1.030) Urine Protein Negative (Negative) Urine Glucose (UA) Negative (Negative) Urine Ketones Trace H (Negative) Urine Blood Negative (Negative) Urine Nitrite Negative (Negative) Urine Bilirubin Negative (Negative) Urine Urobilinogen Negative (Negative) Ur Leukocyte Esterase Negative (Negative) Blood Type O Positive Antibody Screen NEGATIVE Fecal occult was positive Diagnostic Findings Abdomen/Pelvis CT 03/24/24 16:28 CT OF THE ABDOMEN AND PELVIS WITH CONTRAST CLINICAL HISTORY: epigastric abd pain etoh abuse COMPARISON STUDY: MRI of the abdomen March 04, 2024. CTA of the abdomen January 03, 2023. TECHNIQUE: Following IV administration of 91 mL of Optiray, axial images of the abdomen and pelvis were obtained from the lung bases to the proximal femurs. Images were reviewed in the axial, sagittal, and coronal planes. IV contrast was administered without complication. Automated exposure control was utilized for the study. A dose lowering technique was utilized adhering to the principles of ALARA. CT DOSE: 1442.85 mGy.cm FINDINGS: No pneumatosis, free air or portal venous gas is present. There are no suspicious hepatic lesions. There is no biliary or pancreatic ductal dilatation. Spleen, adrenal glands, right kidney and pancreas are unremarkable. There is a left renal cyst. There is possible heterogeneous enhancement of the upper pole of the left kidney on image 116 and 385. This may be artifactual, related to the adjacent stimulator battery pack. There is no hydronephrosis. The appendix is normal. Caliber and wall thickness of small and large bowel are normal. There is no evidence for a bowel obstruction. There is no lymphadenopathy. There are no fluid collections. Extensive aortoiliac atherosclerotic plaque is noted. Bilateral common iliac artery stents are suboptimally assessed on this exam but appear grossly patent. There is mild hepatic steatosis. IMPRESSION: 1. Possible heterogeneous enhancement within the upper pole of the left kidney. This is likely related to streak artifact from the adjacent stimulator battery pack. However, a focus of pyelonephritis or small renal infarct could appear similar. 2. No bowel obstruction. No bowel wall thickening. 3. Hepatic steatosis. ACT 112: Negative or not required by law. Electronically signed by: Tobin Acuna M.D. 03/24/2024 5:31 PM Supervising Physician Co-Signing Physician Notes I personally saw and examined the patient. I independently reviewed the labs, EKG, imaging, problem list, medication list, past medical history and family history. I verified all gerber points and agree with resident physician Dr Arleen Hoskins, with the following exceptions and/or additions: 64 year old male presents to the ER with presyncope/hypotension in setting of chronic alcohol use and melena for the last week. Recent carotid endaterectomy on aspirin, clopidogrel and Eliquis. Hgb stable although prescynope is new today. He does not think he took any extra medications. Anti-hypertensives recently increased in setting of a. fib RVR. Currently in NSR on arrival to ER O/E HS RRR, systolic murmur, Chest CTAB, Abdo mild epigastric pain, no guarding or rebound tenderness A/P Presyncope/hypotension - suspect related to either acute GI bleed vs. mix up of medications vs. conversion to NSR Acute GI bleed, acute blood loss anemia, Melena - FOB positive in ER. In setting of ongoing alcohol, antiplatelet and anticoagulation use recommend GI consult to consider EGD to determine ongoing risk of these medications Resident Activity Tracking Resident Involvement: Resident Care Provided Care Provided: Adult Hospital Medicine
[2024-03-24] MEDS ORDERED: PANTOprazole 40 MG in DEXTROSE 5% MINI-B 100 ML IV SCH (21:44)
[2024-03-24] MEDS ORDERED: traMADol HCL 50 MG TABLET PO PRN (21:44)
[2024-03-24] MEDS ORDERED: ACETAMINOPHEN 325 MG TAB PO PRN (21:47)
[2024-03-24] MEDS ORDERED: GLUCOSE 40% GEL 15 GM TUBE PO PRN (22:00)
[2024-03-24] MEDS ORDERED: GLUCAGON FOR INJ 1 MG VIAL SQ PRN (22:00)
[2024-03-24] MEDS ORDERED: DEXTROSE 50% 50 ML SYRINGE IV PRN (22:00)
[2024-03-24] MEDS ORDERED: GLUCOSE 10 TAB/TUBE PO PRN (22:00)
[2024-03-24] MEDS ORDERED: CARBOHYDRATES FOR HYPOGLYCEMIA PO PRN (22:00)
[2024-03-24] MEDS: DOXYCYCLINE HYCLATE 100 MG CAP PO SCH (22:10)
[2024-03-24] MEDS: GABAPENTIN 400 MG CAP PO SCH (22:36)
[2024-03-24] MEDS: diphenhydrAMINE HCl 12.5 MG/5 ML UDC PO PRN (22:36)
--- OUTSIDE RECORDS SUMMARY | 2024-03-24 23:39 | External Medical Summary | Summary of Care ---
Author Name Unknown Organization [facility] Address [address] [facility] [place] [address] Phone [phone] Care Team Providers Care Airport Shuttle Driver Name Role Phone Nitish Lam MD Primary Care [facility] Reason for Referral * Evaluate & Treat - Unlimited Visits (Within 10 days (routine)) - Authorized Specialty Diagnoses / Procedures Referred By Contac t Referred To Contact Pulmonary Diseases / Pulmonary Diagnoses SOB (shortness of breath) Nitish Lam MD [address] [place] [address] [facility] [place] [id number] Referral ID Status Reason Start Date Expiration Date Visits Requested Visits Authorized [id number] Authorized Specialty Services Required [phone] Question Answer Referral Priority Within 10 days (routine) Where should this appointment be scheduled? [facility] Reason for Referral? Other - SOB Encounter Details Date Type Department Care Team (Late st Contact Info) Description 2024 Orders Only Access Center, [place] [address] [facility] *DO NOT REMOVE THIS DEPARTMENT* [place] [phone] Request, External Referral SOB (shortness of breath)* Allergies Active Allergy Reactions Criticality Noted Date Comments Adhesive Tape Rash 03/21/2021 Amoxicillin Rash 06/13/2013 Gemfibrozil 03/21/2021 Body aches Latex Rash 03/21/2021 Nsaids 03/21/2021 Advised not to take- h/o gastric ulcer Statins 03/21/2021 Body aches documented as of this encounter (statuses as of 2024) Medications Medication Sig Dispensed Refills Start Date End Date Status DULoxetine (CYMBALTA) 30 MG CPEP 1 daily 0 12/27/2014 Active metFORMIN (GLUCOPHAGE) 500 MG Tablet Take 4 Tablets by mouth daily with breakfast. 1 daily 0 01/15/2015 Active Ferrous Sulfate (IRON) 142 (45 FE) MG TBCR 1 daily Activ e Ubiquinol 200 MG Oral Capsule Take by mouth daily. Active Glimepiride 1 MG Oral Tablet (Amaryl) Take 1 Tablet by mouth in the morning. Active Fenofibrate 160 MG Oral Tablet (Lofibra) Take 1 Tablet by mouth in the morning. Active Acetaminophen ER 650 MG Oral Tablet Extended Release (Tylenol 8 Hour) Take 2 Tablets by mouth as needed. Active Omeprazole 40 MG Oral Capsule Delayed Release (PriLOSEC) Take 1 Capsule by mouth in the morning. Active Metoprolol Succinate 50 MG Oral Capsule ER 24 Hour Sprinkle Take by mouth 2 times a day. Active DULoxetine HCl 60 MG Oral Capsule Delayed Release Particles (Cymbalta) Take 1 Capsule by mouth in the morning. Active traMADol HCl 50 MG Oral Tablet (Ultram) Take 1 Tablet by mouth every 6 hours as needed. Active Apixaban 5 MG Oral Tablet (Eliquis) Take 1 Tablet by mouth in the morning and 1 Tablet before bedtime. Active Folic Acid 1 MG Oral Tablet Take 1 Tablet by mouth in the morning. Active Gabapentin 300 MG Oral Capsule (Neurontin) Take 400 mg by mouth in the morning and 400 mg at noon and 400 mg before bedtime. 05/04/2021 Active metFORMIN HCl ER 500 MG Oral Tablet Extended Release 24 Hour (Glucophage XR) 04/30/2021 Acti ve Doxycycline Hyclate 100 MG Oral Tablet Delayed Release Take 1 Tablet by mouth in the morning and 1 Tablet before bedtime. Active Lisinopril 40 MG Oral Tablet Take 1 Tablet by mouth in the morning. Active Tamsulosin HCl 0.4 MG Oral Capsule (Flomax) Take 1 Capsule by mouth in the morning. Active B-12 100-5000 MCG Sublingual Tablet Sublingual Take by mouth daily. Active Doxepin HCl 10 MG Oral Capsule (SINEquan) Take 1 Capsule by mouth at bedtime. 12/27/2023 Active Repatha SureClick 140 MG/ML Subcutaneous Solution Auto-injector Inject 140 mg under the skin every 14 days. 08/27/2023 Active Clopidogrel Bisulfate 75 MG Oral Tablet (Plavix) Take 1 Tablet by mouth in the morning. 30 Tablet 6 12/31/2023 Active Vitamin C 500 MG Oral Tablet Chewable Take 1 Tablet by mouth in the morning. Active Magnesium 400 MG Oral Tablet Take by mouth. Active documented as of this encounter (statuses as of 2024) Active Problems Problem Noted Date Diagnosed Date Carotid stenosis, non-symptomatic, bilateral 10/2023 PAD (peripheral artery disease) 12/30/2023 Typical atrial flutter 12/30/2023 Cigarette smoker 12/30/2023 JJ (obstructive sleep apnea) 12/30/2023 Type 2 diabetes mellitus wit h diabetic peripheral angiopathy without gangrene, without long-term current use of insulin 12/30/2023 Dyslipidemia, goal LDL below 70 12/30/2023 Iron deficiency anemia 12/30/2023 Chronic sinusitis 11/18/2005 Overview: Wan Allergic rhinitis 11/18/2005 Overview: Wan CAD (coronary artery disease) Overview: history [place] Osteoarthritis HTN, goal below 130/80 Anxiety documented as of this encounter (statuses as of 2024) Immunizations Name Administration Dates Next Due Seasonal Influenza, High Dos e, Trivalent, PF, IM (Fluzone HD) 02/26/2024 documented as of this encounter Social History Tobacco Use Types Packs/Day Years Used Date Smoking Tobacco: Every Day Cigarettes 0.5 49.8 Started: 1976 Smokeless Tobacco: Current Comments:02/26/24 1/2 pack da johnny, declined pamphlet Alcohol Use Standard Drinks/Week Comments Yes 0 (1 standard drink = 0.6 oz pur e alcohol) 2-6 beers per day Personal Safety Answer Date Recorded Do you feel unsafe or have concerns for your saf ety? No 01/21/2024 Do you have concerns for you r family's safety? (Household - for ages 0-17 years) Not on file 01/21/2024 Utilities Answer Date Recorded Do you have trouble paying y our heating, water, or electric bill? No 01/21/2024 Is your family able to pay t he heat, water, or electric bill? (Household - for ages 0-17 years) Not on file 01/21/2024 Does your family have access to good internet? (Household - for ages 0-17 years) Not on file 01/21/2024 Social Connections Answer Date Recorded How often do you feel lonely or isolated from those around you? (Adult - for ages 18 years and over) Not on file 11/11/2023 Transportation Needs Answer Date Record ed Do you have trouble getting a ride to medical visits or work? (Adult - for ages 18 years and over) Not on file 01/21/2024 Does your family have a hard time getting a ride to doctors visits? (Household - for ages 0-17 years) Not on file 01/21/2024 Has lack of transportation k ept you from medical appointments, meetings, work, or from getting things needed for daily living? Check all that apply. No 01/21/2024 Do you (or your family) have trouble finding or paying for a ride (transportation)? (Household - for ages 0-17 years) Not on file 01/21/2024 Housing Stability Answer Date Recorded Do you currently live in a s helter or have no steady place to sleep at night? (Adult - for ages 18 years and over) Not on file 01/21/2024 Do you think you are at risk of becoming homeless? (Adult - for ages 18 years and over) Not on file 01/21/2024 Does your family worry about paying for your home or becoming homeless? (Household - for ages 0-17 years) Not on file 0 01/21/2024 Are you homeless or worried that you might be in the future? No 01/21/2024 Are you (or your family) bianca eless or worried that you might be in the future? (Household - for ages 0-17 years) Not on file Food Insecurity Answer Date Recorded Do you need food for this week? No 01/21/2024 Are you able to get enough f ood for your family? (Household - for ages 0-17 years) Not on file 01/21/2024 Does your family need food t his week? (Household - for ages 0-17 years) Not on file 01/21/2024 Do you always have enough fo od for your family? (Household - for ages 0-17 years) Not on file 01/21/2024 Sex and Gender Information Value Date Recorded Sex Assigned at Not on file Gender Identity Not on file Sexual Orientation Not on file Job Start Date Occupation Industry Not on file Not on file Not on file documented as of this encounter Plan of Treatment Upcoming Encounters Date Type Department Care Team (Late st Contact Info) Description 03/19/2024 2:30 PM EDT Office Visit Pulmonary Medicine, [place] [address] [place] [address] Femi Shields MD [address] [place] [address] 08/09/2024 10:45 AM EDT Imaging Radiology [address] [address] 08/27/2024 11:00 AM EDT Appointment Vascular Lab [facility], [address] [address] 08/27/2024 12:00 PM EDT Appointment Vascular Lab [facility], [address] [address] 08/27/2024 12:40 PM EDT Office Visit Vascular Surg [place] [address] [place] [address] Tong Gonzales MD [address] [place] [address] Scheduled Referrals Name Type Priority Associated Diagnoses Orde r Schedule PULMONARY REFERRAL OP Referral Within 10 days (routine) SOB (shortness of breath) Ordered: 2024 Health Maintenance Due Date Last Done Comments DISCUSS TOBACCO CESSATION (REFER TO SMARTSET #7645) 1958 HbA1c 1964 Pneumococcal Vaccine: 65+ Years (1 of 2 - PCV) 1964 Depression Screening 1970 Albumin/Creatinine Ratio 1976 Diabetic Eye Exam 1976 Diabetic Foot Exam 1976 Hepatitis C Screening 1976 DTap/Tdap Vaccines (1 - Tdap) 1977 Cologuard 2003 Colonoscopy 2003 Colorectal Cancer Screening 2003 Fecal Occult Blood Test 2003 Sigmoidoscopy 2003 Zoster Vaccines (1 of 2) 2008 COVID-19 Vaccine ( season) 2024 GFR 02/09/2025 02/10/2024, 12/25, 01/20/2024, Additional history exists AAA Screening Completed 12/31/2023 Lung Cancer Screening Completed 02/10/2024 Influenza Vaccine (FLU shot) Completed 02/26/2024 HPV (Gardasil) Vaccine Aged Out No lo nger eligible based on patient's age to complete this topic Hepatitis B Vaccine Aged Out No longe r eligible based on patient's age to complete this topic MENINGOCOCCAL (MENACTRA/MENVEO) Aged Out No longer eligible based on patient's age to complete this topic documented as of this encounter Medical Devices Implanted Type Area Hot Saw Helper Device Identifier Shelf Expiration Date Model / Serial / Lot Lens Intraoc 20.5 - [id number] - [id number] Implanted:Qty: 1 on 03/30/2021 by Jerrell Mtz MD at [facility] Left: Eye [employer] 12/23/2025 [id number] / [id number] / [id number] Lens Intraoc 19.5 - [id number] - [id number] Implanted:Qty: 1 on 04/05/2021 by Jerrell Mtz MD at OR [facility] Right: Eye [employer]OM[employer] 12/23/2025 [id number] / [id number] / [id number] Patch Xenosure [id number] - [id number] Implanted:Qty: 1 on 01/20/2024 by Tong Gonzales MD [place] [facility] [employer] [id number] 07/23/2029 E0.8P8 / [id number] / [id number] documented as of this encounter Visit Diagnoses Diagnosis SOB (shortness of breath)- Primary Shortness of breath documented in this encounter Advance Directives * Full Code (Latest Code Status on File) Date Activated Date Inactivated Comments 01/20/2024 5:57 PM 01/21/2024 7:59 PM This order r eflects the patients wishes and were consensually agreed upon. Question Answer Comments Discussion of Advance Directives occurred with: Patient Care Teams Airport Shuttle Driver Relationship Specialty Start Date End Date Nitish Lam MD [address] [facility] [place] [address] PCP - General Internal Medicine 11/03/14 documented as of this encounter
--- OUTSIDE RECORDS SUMMARY | 2024-03-24 23:39 | External Medical Summary | Summary of Care ---
Author Name Unknown Organization [facility] Address [address] [place] [address] Phone [phone] Care Team Providers Care Aquaculture And Fisheries Professor Name Role Phone Nitish Lam MD Primary Care [facility] Reason for Visit * Evaluate & Treat - Unlimited Visits (Within 10 days (routine)) - Authorized Specialty Diagnoses / Procedures Referred By Contac t Referred To Contact Pulmonary Diseases / Pulmonary Diagnoses SOB (shortness of breath) Nitish Lam MD [facility] [place] [address] Referral ID Status Reason Start Date Expiration Date Visits Requested Visits Authorized [id number] Authorized Specialty Services Required [phone] Encounter Details Date Type Department Care Team (Late st Contact Info) Description 03/19/2024 2:30 PM EDT Office Visit Pulmonary Medicine, [place] [address] [place] [address] Femi Shields MD [address] [place] [address] No-show for appointment* Allergies Active Allergy Reactions Criticality Noted Date Comments Adhesive Tape Rash 03/21/2021 Amoxicillin Rash 06/13/2013 Gemfibrozil 03/21/2021 Body aches Latex Rash 03/21/2021 Nsaids 03/21/2021 Advised not to take- h/o gastric ulcer Statins 03/21/2021 Body aches documented as of this encounter (statuses as of 03/19/2024) Medications Medication Sig Dispensed Refills Start Date [...] as of this encounter (statuses as of 03/19/2024) Active Problems Problem Noted Date Diagnosed Date [...] Wan CAD (coronary artery disease) Overview: history [place] Osteoarthritis HTN, goal below 130/80 Anxiety documented as of this encounter (statuses as of 03/19/2024) Immunizations Name Administration Dates Next Due Seasonal [...] on file documented as of this encounter Progress Notes * Femi Shields MD - 03/19/2024 1:44 PM EDT No show: Patient scheduled for pulmonology outpatient visit with me. Patient did not show up for scheduled appointment time. Femi Shields MD Pulmonary/Critical Care Medicine documented in this encounter Plan of Treatment Upcoming Encounters Date Type Department Care Team (Late st Contact Info) Description 08/09/2024 10:45 AM EDT Imaging Radiology [address] [address] 08/27/2024 11:00 AM EDT Appointment Vascular Lab [address] [address] 08/27/2024 12:00 PM EDT Appointment Vascular Lab [place] [address] [place] [address] 08/27/2024 12:40 PM EDT Office Visit Vascular Surg [place] [address] [place] [address] Tong Gonzales MD [address] [place] [address] Scheduled Referrals Name Type Priority Associated Diagnoses Orde r Schedule PULMONARY REFERRAL OP Referral Within 10 days (routine) SOB (shortness of breath) Ordered: 2024 Health Maintenance Due Date Last Done Comments DISCUSS TOBACCO CESSATION (REFER TO SMARTSET #2165) 1958 HbA1c 1964 Pneumococcal Vaccine: 65+ Years [...] this encounter Medical Devices Implanted Type Area Payroll Services Analyst Device Identifier Shelf Expiration Date Model / Serial / Lot Lens Intraoc 20.5 - [id number] - [id number] Implanted:Qty: 1 on 03/30/2021 by Jerrell Mtz MD at OR [facility] Left: Eye [employer] 12/23/2025 [id number] / [id number] / [id number] Lens Intraoc 19.5 - [id number] - [id number] Implanted:Qty: 1 on 04/05/2021 by Jerrell Mtz MD at OR [facility] Right: Eye [employer] 12/23/2025 [id number] / [id number] / [id number] Patch Xenosure 0.2dgm9oz - [id number] Implanted:Qty: 1 on 01/20/2024 by Tong Gonzales MD at [place] [facility] [employer] [id number] 07/23/2029 E0.8P8 / [id number] / [id number] documented as of this encounter Visit Diagnoses Diagnosis No-show for appointment- Primary documented in this encounter Advance Directives * Full Code (Latest Code Status on File) Date Activated Date Inactivated Comments 01/20/2024 5:57 PM 01/21/2024 7:59 PM This order r eflects the patients wishes and were consensually agreed upon. Question Answer Comments Discussion of Advance Directives occurred with: Patient Care Teams Aquaculture And Fisheries Professor Relationship Specialty Start Date End Date Nitish Lam MD [address] [facility] [place] [address] PCP - General Internal Medicine 11/03/14 documented as of this encounter
[2024-03-25 00:52] LABS: Hemoglobin 8.6 g/dl (14.0-18.0)
--- NOTE | 2024-03-25 07:21 | Hospitalist Progress Note ---
Date of Service March 25, 2024 Assessment & Plan (1) Pre-syncope: Plan: Presyncope/Hypotension, initial concern for hypovolemia from acute blood loss vs recent increase in medication Presented with dizziness and presyncope recent home medication change was metoprolol 50mg increased to 75mg, 2 weeks ago. - Hold lisinopril and tamsulosin - Continue metoprolol 75 mg BID (2) Upper GI bleed: Plan: Abdominal pain/melena, black stools and mid epigastric abdominal pain for the last 5 days. He is hypotensive with a positive fecal occult blood, and this Hgb is stable at 9.4 (baseline is approx 10.5). CTAB noted mild hepatic steatosis, heterogenous enhancement of the upper pole of the left kidney indicating either a possible cyst or artifact- no hydronephrosis. - Consult GI for EGD 03/25/24- Gastritis and erosions friability and shallow ulcerations - Bid protonix - Hold Eliquis, aspirin, and Plavix if stable restart aspirin and plavix on 03/26/24 and eliquis in one week Acute blood loss anemia/Upper GI bleed received 1 unit of pRBCs, (3) Diabetes mellitus: Plan: Last known A1c was 5.9% -Hold home meds of metformin and glimepiride -NovoLog SSI, correction factor of 50 (4) Atrial fibrillation with RVR: Plan: Hx of A-fib with RVR, now nsr - - Continue metoprolol 75mg BID (5) Hyponatremia: Plan: mild hyponatremia, holding daniela , follow and consider fluid restriction Plan Alcohol use Pt endorses 2-6 beers daily with his last drink this afternoon. Pt did not have withdrawal during last admission over 4 days. - Continue Gabapentin 800mg TID -no signs of withdrawal Other chronic conditions: Peripherial Vascular disease- holding DAPT and Eliquis due to possible Upper GI bleed, will resume if ruled out Hx of L TKA septic joint- Continue Doxycycline 100mg qd Diabetic neuropathy- Continue Duloxetine 60mg qd and gabapentin 800mg TID Iron deficiency anemia-During last hospital stay on 03/10, pt's Fe was 21, tr ansferrin sat was 5% and ferritin was 23. On 03/18, Fe was 95, transferrin was 333. He was given 300mg IV Venofer x 2 over 2 days. His B12 and folate where within normal limits. - did get additional iron with transfusion VTE prophylaxis- SCDs Code-full Admission and Anticipated Discharge Date Admission Date: March 24, 2024 Results & Data Results & Data Vital Signs (Past 12 Hours) Vital Signs Temp Pulse Pulse Pulse Resp BP Pulse Ox 03/25/24 07:10 59 L 03/25/24 03:14 97.3 F L 62 20 103/61 97 03/24/24 22:46 62 03/24/24 21:52 03/24/24 21:52 97.7 F 64 18 106/62 95 03/24/24 21:00 60 18 98/52 L 98 03/24/24 20:47 63 03/24/24 19:37 64 18 115/56 L 98 O2 Del Method 03/25/24 07:10 03/25/24 03:14 Room Air 03/24/24 22:46 03/24/24 21:52 Room Air 03/24/24 21:52 Room Air 03/24/24 21:00 Room Air 03/24/24 20:47 03/24/24 19:37 Room Air PG Care Time/CCT Total # of Minutes Spent Total Time Spent with Patient: Total time spent is greater than 50% in coordination of care (as documented) at patient's floor/unit and/or counseling patient: Coding Level of Care Code 58589 SUB INP/OBS CARE 3/50MIN Diagnoses Pre-syncope R55 Upper GI bleed K92.2 Diabetes mellitus E11.9 Atrial fibrillation with RVR I48.91 Hyponatremia E87.1
[2024-03-25 07:25] LABS: Basophils # (auto) 0.08 K/uL (0.00-0.20); Basophils % (auto) 1.2 %; Eosinophils # (auto) 0.19 K/uL (0.00-0.50); Eosinophils % (auto) 2.8 %; Hematocrit (blood only) 28.6 % (42.0-52.0); Hemoglobin 8.9 g/dl (14.0-18.0); Immature Granulocytes # (auto) 0.29 K/uL (0.01-0.20); Immature Granulocytes % (auto) 4.3 %; Lymphocytes # (auto) 1.52 K/uL (1.20-3.40); Lymphocytes % (auto) 22.8 %; Mean Corpuscular Hemoglobin 31.8 pg (25.0-34.0); Mean Corpuscular Hgb Conc 31.1 g/dL (32.0-36.0); Mean Corpuscular Volume 102.1 fL (80.0-100.0); Mean Platelet Volume 11.3 fL (9.4-12.4); Monocytes # (auto) 0.68 K/uL (0.11-0.59); Monocytes % (auto) 10.2 %; Neutrophils # (auto) 3.92 K/uL (1.40-6.50); Neutrophils % (auto) 58.7 %; Platelet Count 283 K/uL (130-400); RDW Coefficient of Variation 18.9 % (11.5-14.5); RDW Standard Deviation 71.5 fL (36.4-46.3); White Blood Count 6.68 K/ul (4.8-10.8)
[2024-03-25 07:37] LABS: Albumin Globulin Ratio 1.3 (0.9-2); Albumin Level 3.8 gm/dl (3.4-5.0); BUN Creatinine Ratio 28.1 (10-20); Bilirubin,Total 0.4 mg/dl (0.2-1.0); Calcium 9.4 mg/dl (8.6-10.3); Creatinine Clr Calc Pharmacy 101.1 ml/min; Potassium 4.8 mmol/L (3.5-5.1); Total Protein 6.8 gm/dl (6.0-8.3)
[2024-03-25] MEDS ORDERED: FUROSEMIDE 20 MG TAB PO SCH (09:00)
[2024-03-25] MEDS: INSULIN ASPART PER UNIT CHARGE SC SCH (09:31)
[2024-03-25] MEDS: METOPROLOL SUCC 25MG EXT REL TAB PO SCH (09:34)
[2024-03-25] MEDS: DULoxetine HCL 60 MG CAP PO SCH (09:35)
--- NOTE | 2024-03-25 10:12 | Gastroenterology Progress Note ---
Date of Service March 25, 2024 Assessment & Plan (1) Acute blood loss anemia: (2) Melena: Plan: Continue current therapy and supportive care Proceed with EGD now Further recommendations to follow. Admission and Anticipated Discharge Date Admission Date: March 24, 2024 Subjective Still with complaints of mid-epigastric abdominal pain, up to 4/10 in intensity, but improved since his admission. States that he has had 5-6 days of black stools. Denies any fevers, chills, nausea, vomiting, lightheadedness or dizziness at present. No further complaints. Review of Systems Review of Systems: All systems reviewed & are unremarkable except as noted in Subjective Physical Exam Constitutional: WD/WN, vitals as above Respiratory: normal respiratory effort, lungs clear to auscultation Cardiovascular: RRR, no murmur, no edema Gastrointestinal (Abdomen): normal bowel sounds, soft, nontender, no hepatosplenomegaly Results & Data Results & Data Vital Signs (Past 12 Hours) Vital Signs Temp Pulse Pulse Pulse Resp BP Pulse Ox 03/25/24 09:55 36.9 C 67 18 139/67 97 03/25/24 07:30 36.7 C 60 18 135/64 95 03/25/24 07:10 59 L 03/25/24 03:14 36.3 C L 62 20 103/61 97 03/24/24 22:46 62 O2 Del Method 03/25/24 09:55 Room Air 03/25/24 07:30 Room Air 03/25/24 07:10 03/25/24 03:14 Room Air 03/24/24 22:46 PG Care Time/CCT Total # of Minutes Spent Total Time Spent with Patient: Total time spent is greater than 50% in coordination of care (as documented) at patient's floor/unit and/or counseling patient: Coding Level of Care Code 48360 SUB INP/OBS CARE 3/50MIN Diagnoses Acute blood loss anemia D62 Melena K92.1
--- NOTE | 2024-03-25 10:33 | Gastrointestinal Consultation ---
Date of Consultation March 25, 2024 Assessment & Plan (1) Acute blood loss anemia: (2) Melena: Continue Protonix gtt at this time Transfuse as needed to maintain Hgb >8 Proceed with EGD now Further recommendations to follow (3) Alcohol abuse: AWSS protocol as per primary team History of Present Illness Reason for Consultation: Melana, Acute blood loss anemia Attending Physician: Norberto Kidd MD History of Present Illness Jackson Becker is a 64 yo CM who presented to the ER with complaints of 5-6 days of dark tarry stools, and epigastric abdominal pain. He described the pain as 6/10 in intensity, non-radiating without alleviating or exacerbating factors. In the ER, he was noted to be hypotensive and anemic with a Hgb of 9.4. His hypotension responded to fluid administration. He was placed on PPI gtt. At the time I saw the patient he was feeling improved from his initial evaluation. He does admit to drinking up to 6 beers per day, but denies any NSAID use. He has undergone a workup for Iron deficiency anemia in the past with and EGD, Colonoscopy and VCE at [facility] in 2020, without a source of bleeding found. He denies any further complaints at this time. Allergies Allergy/AdvReac Type Severity Reaction Status Date / Time latex Allergy Unknown Rash Verified 03/24/24 19:03 Penicillins Allergy Unknown Rash Verified 03/24/24 19:03 adhesive AdvReac Unknown Rash Verified 03/24/24 19:03 dronedarone AdvReac Unknown Fatigued Verified 03/24/24 19:03 gemfibrozil AdvReac Unknown BODY ACHES Verified 03/24/24 19:03 NSAIDS (Non-Steroidal AdvReac Unknown TOLD NOT Verified 03/24/24 19:03 Anti-Inflamma TO TAKE - HX STOMACH ULCER Gmskvnt-AWV-EcC Reductase AdvReac Unknown body aches Verified 03/24/24 19:03 Inhibitor [Njzmrsl-Aql-Lyv Reductase Inhibitor] Home Medications Medication Instructions Recorded Confirmed Type acetaminophen 650 mg 650 mg PO Q8H PRN ARTHRITIS PAIN 12/06/20 03/24/24 History tablet,extended release cyanocobalamin (vitamin B-12) 1,000 mcg PO QAM 08/26/22 03/24/24 History 1,000 mcg tablet (Vitamin B-12) apixaban 5 mg tablet (Eliquis) 5 mg PO BID #180 tabs 06/30/23 03/24/24 Rx duloxetine 60 mg capsule,delayed 60 mg PO QAM #90 caps 07/02/23 03/24/24 Rx release (Cymbalta) pantoprazole 40 mg tablet,delayed 40 mg PO QAM #90 tabs 07/02/23 03/24/24 Rx release clopidogrel 75 mg tablet (Plavix) 75 mg PO QAM 07/18/23 03/24/24 History tamsulosin 0.4 mg capsule 0.4 mg PO HS 07/18/23 03/24/24 History metformin 500 mg tablet,extended 2,000 mg (4 x 500 mg) PO QAM #360 07/28/23 03/24/24 Rx release 24 hr tabs evolocumab 140 mg/mL subcutaneous 140 mg subcut USEASDIRECTD 09/16/23 03/24/24 History pen injector (Repatha SureClick) doxycycline hyclate 100 mg tablet 100 mg PO BID 09/22/23 03/24/24 History magnesium oxide 400 mg PO QPM 09/22/23 03/24/24 History aspirin 81 mg tablet,delayed 81 mg PO QAM 10/07/23 03/24/24 History release (Adult Low Dose Aspirin) lactobacillus comb no.10 20 20,000 mmu cells PO QPM 10/08/23 03/24/24 History billion cell capsule (Probiotic) lisinopril 40 mg tablet 40 mg PO QAM #90 tabs 02/10/24 03/24/24 Rx gabapentin 400 mg capsule 800 mg (2 x 400 mg) PO TID 90 days 02/13/24 03/24/24 Rx #540 caps tramadol 50 mg tablet 100 mg (2 x 50 mg) PO BID PRN pain 02/13/24 03/24/24 Rx #120 tabs furosemide 20 mg tablet 20 mg PO QAM #30 tabs 03/10/24 03/24/24 Rx metoprolol succinate 25 mg 75 mg (3 x 25 mg) PO BID #180 tabs 03/11/24 03/24/24 Rx tablet,extended release 24 hr glimepiride 1 mg tablet 1 mg PO QAM #90 tabs 03/18/24 03/24/24 Rx Patient History Medical History Macrocytosis Acute heart failure with preserved ejection fraction Atrial tachycardia, paroxysmal CAD (coronary artery disease) Postlaminectomy syndrome of lumbar region Peripheral arterial disease Severe occlusive disease S/p L common femoral endarterectomy with bovine patch and lithotripsy of SFA and Popliteal arteries , status post bilateral common iliac artery [employer]ING [employer] and stents. BPH (benign prostatic hyperplasia) Diabetes mellitus, type 2 NIDDM Anxiety and depression Hypertension Sleep apnea "Mild to moderate"-cpap has not been using for sometimes/recently been trying to get back to using. Has trouble tolerating mask. Peripheral arterial disease Peripheral vascular disease Diabetes mellitus, type 2 NIDDM History of anemia Stenosis of right internal carotid artery f/u dr. garcia-"reason for upcoming procedure" Ventricular tachycardia f/u dr. gutierrez Sleep apnea does not use his CPAP Hx of solitary pulmonary nodule monitoring>no change in size since 2021 BPH (benign prostatic hyperplasia) Anxiety and depression Nocturia History of cardioversion 01/2021, [facility]; f/u dr. gutierrez Neuropathy History of chronic back pain Neurogenic claudication due to lumbar stenosis History of COVID-19 03/18/2022>resolved 06/28/23 + home test - congestion. Tx with pill. Resolved. No current s/s. History of anxiety Paroxysmal atrial flutter 01/2021- s/p cardoversion- with excessive alcohol intake- felt to be contributing component. No AC. No recurrence per PCP records 07/29/22- - Recurrence in preop area prior to surgery - sent from ACU to ED- admitted to [facility] 07/29/22-07/30/22; f/u asa abbasi Bilateral carotid artery stenosis Per 11/2021 Carotid Doppler: 50-69% stenosis of right ICA, less than 50% stenosis of left ICA, greater than 50% stenosis of right ECA Antegrade flow in both vertebral arteries CAD in [place] artery s/p LAD stent x2 () History of gastric ulcer No recent issues Degenerative disc disease GERD (gastroesophageal reflux disease) Well controlled and stable Hyperlipidemia Myocardial infarction Anterolateral NM- 2008, [place], had cardiac cath w/2 stents; f/u asa ovalle Surgical History History of right-sided carotid endarterectomy S/P ablation of atrial flutter Hx of transesophageal echocardiography (GLADYS) for monitoring 01/2021, [facility] History of revision of total knee arthroplasty left knee, with "clean out" per pt; sepsis in left knee in 07/2023, no current issues per pt-finished 6 week abx thru PICC line 09/10/23. Hx of cardiac cath 2008, "bad indigestion," x2 stents; asa abbasi Presence of neurostimulator 2022 History of cardiac radiofrequency ablation 04/09/2023 [facility] [place] S/P insertion of iliac artery stent 2022, [facility], Dr. Garcia/2 stents. History of endarterectomy Left Femoral Endarterectomy with Bovine Patch 05/08/2022 & right side done 05/28/2023 Hx of cataract extraction rt/lt. History of anesthesia reaction WITH BACK SURGERY 2004 - DISORIENTED, PULLED CATHETER OUT ([facility]) Fusion of spine ~2012, C4-C7, "HAVE 80% OF MOTION" History of lumbar surgery X 3 - 2004, 2006, 2019, [facility] History of total knee replacement right/left Hx of transurethral resection of prostate History of esophagogastroduodenoscopy (EGD) History of colonoscopy History of nasal septoplasty History of heart artery stent 2008, x2 stent, ASA; f/u asa ovalle Family History Mother Heart disease Diabetes Father Cancer Head and Neck Heart disease Brother Lung cancer Carotid artery stenosis Brother Diabetes Brother Coronary heart disease Sister No problems noted. Other No family history of adverse response to anesthesia Denies family history of Ovarian cancer Prostate cancer Myocardial infarction Breast cancer Colorectal cancer Social History Smoking Status: Current every day smoker Tobacco Type: Cigarettes Age Started Using Tobacco: 18; packs per day: 0.5; Cigarettes Per Day: 6-8; Second Hand Exposure: No; Do You Dip or Chew Tobacco: No; Tobacco Cessation Education Requested by Patient: No Hx Alcohol Use: Yes Alcohol type: beer Alcohol type Comment: 6-8 beers Hx Substance Use: No Preferred Language: Panamanian Communication Ability: Effective Visual Impairment: No Limitations Prospecting Observer Required: No Beliefs That Will Affect Care: None marital status: Current Living Situation: Spouse Current Living Situation Comment: Lives at home with current occupational status: retired How many Children do You have: 4 Other Information That Helps Us Care for You: No Feels Safe at Home: Yes Safety Concerns: Feels Safe At This Time Childhood Exposure to Second-Hand Smoke: Yes Diet: regular caffeine: Yes Dental Care, Regularly: Yes Physical Activity Frequency: Does not Exercise Seatbelt Use: always Sunscreen Use: No Assistive Devices: Scooter/Electric Scooter Assistive Devices Comment: for long periods of ambulation Review of Systems Review of Systems: All systems reviewed & are unremarkable except as noted in Subjective Physical Exam Constitutional: WD/WN, vitals as above Eyes: PERRL, conjunctivae normal, anicteric sclerae Neck: trachea midline, no thyromegaly Respiratory: normal respiratory effort, lungs clear to auscultation Cardiovascular: RRR, no murmur, no edema Gastrointestinal (Abdomen): normal bowel sounds, soft, nontender, no hepatosplenomegaly Psychiatric: A+Ox3, euthymic affect Results & Data Vital Signs (Past 12 Hours) Vital Signs Temp Pulse Pulse Pulse Resp BP Pulse Ox 03/25/24 09:55 36.9 C 67 18 139/67 97 03/25/24 07:30 36.7 C 60 18 135/64 95 03/25/24 07:10 59 L 03/25/24 03:14 36.3 C L 62 20 103/61 97 03/24/24 22:46 62 O2 Del Method 03/25/24 09:55 Room Air 03/25/24 07:30 Room Air 03/25/24 07:10 03/25/24 03:14 Room Air 03/24/24 22:46 PG Care Time/CCT Total # of Minutes Spent Total Time Spent with Patient: Total time spent is greater than 50% in coordination of care (as documented) at patient's floor/unit and/or counseling patient: Coding Level of Care Code 96525 IN/OBS CONSULT LVL 4,60M Diagnoses Acute blood loss anemia D62 Melena K92.1 Alcohol abuse F10.10
--- NOTE | 2024-03-25 11:31 | GI REPORT ---
[facility] Patient: RAKEL GAXIOLA : 1960 Sex at : Male Age: 64 Years Procedure: Upper GI endoscopy Date: 03/25/2024 Attending Physician: Eduardo Gross DO Referring MD: Nitish Lam Indications: - Acute post hemorrhagic anemia - Melena Medications: - Monitored Anesthesia Care Complications: - No immediate complications. Estimated Blood Loss: - Estimated blood loss: None. Procedure: - Prior to the procedure, a History and Physical was performed, and patient medications and allergies were reviewed. The patient's tolerance of previous anesthesia was also reviewed. The risks and benefits of the procedure and the sedation options and risks were discussed with the patient. All questions were answered, and informed consent was obtained. Prior Anticoagulants: The patient last took Eliquis (apixaban) 1 day and Plavix (clopidogrel) 1 day prior to the procedure. ASA Grade Assessment: III - A patient with severe systemic disease. After reviewing the risks and benefits, the patient was deemed in satisfactory condition to undergo the procedure. - The egd scope was introduced through the mouth and advanced to the second part of the duodenum. - The upper GI endoscopy was accomplished without difficulty. - The patient tolerated the procedure well. Findings: - The examined esophagus was normal. - Localized severe inflammation characterized by erosions, friability and shallow ulcerations was found in the gastric antrum. Biopsies were taken with a cold forceps for histology. - The examined duodenum was normal. Impression: - Normal esophagus. - Gastritis, characterized by erosions, friability and shallow ulcerations. Biopsied. - Normal examined duodenum. Recommendation: - Discharge patient to home (ambulatory). - Resume previous diet. - Continue present medications. - Stop Protonix drip. Use Protonix (pantoprazole) 40 mg PO BID. - Resume Plavix (clopidogrel) tomorrow and Eliquis (apixaban) tomorrow at prior doses. - Await pathology results. - Return to primary care physician as previously scheduled. - Patient has a contact number available for emergencies. The signs and symptoms of potential delayed complications were discussed with the patient. Return to normal activities tomorrow. Written discharge instructions were provided to the patient. Procedure Code(s): - 09953, Esophagogastroduodenoscopy, flexible, transoral; with biopsy, single or multiple Diagnosis Code(s): - D62, Acute posthemorrhagic anemia - K92.1, Melena (includes Hematochezia) - K29.70, Gastritis, unspecified, without bleeding CPT(R) - 2022 copyright [employer]. All Rights Reserved. The CPT codes, CCI edits and ICD codes generated are intended as suggestions and were generated based on input data. These codes are preliminary and upon mammalogy teacher review may be revised to meet current compliance and payer requirements. The provider is responsible for the final determination of appropriate codes, and modifiers. Dr. Eduardo Gross, DO This document has been electronically signed. Note Initiated:03/25/2024 Note Completed:03/25/2024 11:31 AM \\[email or web address]\[id number]
[2024-03-25] MEDS: fentaNYL citrate PF 100 MCG/2 ML VIAL ONE (11:57)
[2024-03-25] MEDS: PROPOFOL IV EMULSION 10 MG/ML 20 ML VIAL IV ONE ×3 (11:57→11:58)
[2024-03-25] MEDS: LIDOCAINE 2% 2 ML VIAL/AMP(20MG/ML) INFIL ONE ×2 (11:57→11:58)
[2024-03-25] MEDS: MIDAZOLAM HCL 1 MG/ML 2ML VIAL ONE (11:58)
[2024-03-25] MEDS: ONDANSETRON INJ 2 MG/ML 2 ML VIAL ONE (11:58)
--- NOTE | 2024-03-25 13:55 | Anesthesiology Progress Note ---
Date of Service March 25, 2024 Anesthesia Post Procedure Vital Signs Vital Signs: Temp Pulse Pulse Pulse Pulse Resp BP 03/25/24 11:31 63 18 03/25/24 11:16 64 18 03/25/24 11:01 75 16 03/25/24 09:55 36.9 C 67 18 03/25/24 07:30 36.7 C 60 18 03/25/24 07:10 59 L 03/25/24 03:14 36.3 C L 62 20 03/24/24 22:46 62 03/24/24 21:52 03/24/24 21:52 36.5 C 64 18 03/24/24 21:00 60 18 03/24/24 20:47 63 03/24/24 19:37 64 18 03/24/24 18:47 03/24/24 17:28 74 18 03/24/24 17:24 69 03/24/24 16:48 78 03/24/24 16:16 36.8 C 83 18 83/54 L BP Pulse Ox O2 Del Method 03/25/24 11:31 118/57 L 95 Room Air 03/25/24 11:16 144/65 H 97 Room Air 03/25/24 11:01 100/64 99 Room Air 03/25/24 09:55 139/67 97 Room Air 03/25/24 07:30 135/64 95 Room Air 03/25/24 07:10 03/25/24 03:14 103/61 97 Room Air 03/24/24 22:46 03/24/24 21:52 Room Air 03/24/24 21:52 106/62 95 Room Air 03/24/24 21:00 98/52 L 98 Room Air 03/24/24 20:47 03/24/24 19:37 115/56 L 98 Room Air 03/24/24 18:47 Room Air 03/24/24 17:28 108/51 L 95 Room Air 03/24/24 17:24 Room Air 03/24/24 16:48 03/24/24 16:16 97 Room Air Transfer of Care Handoff Completed per policy Notes Mental Status: alert / awake / arousable and participated in evaluation Nausea / Vomiting: adequately controlled Pain: adequately controlled Airway Patency, RR, SpO2: stable & adequate BP & HR: stable & adequate Hydration State: stable & adequate Anesthetic Complications: no major complications apparent and Pt Satisfied with anesthetic care
--- NOTE | 2024-03-25 14:32 | Electrocardiogram Report ---
Test Reason : Blood Pressure : */* mmHG Vent. Rate : 72 BPM Atrial Rate : 72 BPM P-R Int : 156 ms QRS Dur : 94 ms QT Int : 360 ms P-R-T Axes : * 27 6 degrees QTcB Int : 394 ms Sinus rhythm with Premature atrial complexes Otherwise normal ECG When compared with ECG of 07-Mar-2024 17:24, Sinus rhythm has replaced Atrial fibrillation Vent. rate has decreased by 46 bpm Confirmed by Nitish Casillas ([id number]) on 03/25/2024 2:32:49 PM Referred By: Nitish Lam Confirmed By: Nitish Casillas
--- NOTE | 2024-03-25 15:37 | Billing Data ---
Date of Service March 24, 2024 Coding Level of Care Code 70625 INT INP/OBS CARE
[2024-03-25] MEDS: PANTOprazole 40 MG TAB PO SCH (20:46)
[2024-03-26 03:53] LABS: Basophils # (auto) 0.06 K/uL (0.00-0.20); Basophils % (auto) 1.2 %; Eosinophils # (auto) 0.18 K/uL (0.00-0.50); Eosinophils % (auto) 3.7 %; Hematocrit (blood only) 28.5 % (42.0-52.0); Immature Granulocytes # (auto) 0.22 K/uL (0.01-0.20); Immature Granulocytes % (auto) 4.5 %; Lymphocytes # (auto) 1.18 K/uL (1.20-3.40); Lymphocytes % (auto) 24.1 %; Mean Corpuscular Hgb Conc 31.6 g/dL (32.0-36.0); Mean Corpuscular Volume 101.4 fL (80.0-100.0); Mean Platelet Volume 11.2 fL (9.4-12.4); Monocytes % (auto) 12.3 %; Neutrophils # (auto) 2.65 K/uL (1.40-6.50); Neutrophils % (auto) 54.2 %; Platelet Count 261 K/uL (130-400); RDW Coefficient of Variation 18.8 % (11.5-14.5); RDW Standard Deviation 70.4 fL (36.4-46.3); Red Blood Count 2.81 M/uL (4.70-6.10); White Blood Count 4.89 K/ul (4.8-10.8)
[2024-03-26 04:10] LABS: Albumin Globulin Ratio 1.2 (0.9-2); Albumin Level 3.7 gm/dl (3.4-5.0); BUN Creatinine Ratio 27.2 (10-20); Bilirubin,Total 0.3 mg/dl (0.2-1.0); Calcium 9.2 mg/dl (8.6-10.3); Creatinine Clr Calc Pharmacy 97.8 ml/min; Potassium 4.6 mmol/L (3.5-5.1); Total Protein 6.7 gm/dl (6.0-8.3)
[2024-03-26 08:05] VITALS: RESP 18
--- NOTE | 2024-03-26 09:42 | Communication Note ---
Date of Service: March 26, 2024 Patient is a 64 yo male who underwent an EGD on 03/25/24 with findings of erosive gastritis. H/H today 9.0/28.5. No documented melena since 03/24/24. Dr. Gross recommended intiation of Protonix 40 mg BID. Continue this medication and follow-up as an outpatient at which time we can revaluate and determine further need for colonoscopy to be repeated.
[2024-03-26 11:45] VITALS: BP 148/73; TEMP 97.7
[2024-03-26 11:46] VITALS: O2SAT 96
--- NOTE | 2024-03-26 11:55 | Discharge Summary ---
Discharge Summary Date of Service March 26, 2024 Principal Dx & Hospital Course #1 = Principal Diagnosis (1) Acute blood loss anemia: Patient presented to [facility] ER on 03/24/2024 complaining of generalized abdominal pain/melena for the 5 days preceding admission date 03/24/2024. Patient was also hypotensive with GUAIAC+ blood (03/24/2024) with admitting Hb 9.4g/dL, MCV 102.7, MCHC 31.3 (03/24/2024, 4:34pm). Cf., baseline Hb range, progressively declining from 11.0 g/dL (02/17/2021, 7:01am) to 10.6 g/dL (03/18/2024, 11:57am). Subsequently, CT abdomen/pelvis with contrast (03/24/2024) noted mild hepatic steatosis, heterogenous enhancement of the upper pole of the left kidney indicating either a possible cyst or artifact; no hydronephrosis. Subsequently, GI Dr. Eduardo Gross performed EGD (03/25/2024, 11:31am), who noted a normal esophagus, gastric erosions with gastric antral friability and shallow ulcerations with gastric antral biopsies taken for histology. Subsequently, patient was held off his home-scheduled ASA 81mg PO daily, plavix 75mg PO daily, and eliquis 5mg PO bid while in [facility]. Subsequently, patient was continued on protonix infusion @ 8mg/hr (03/24/2024, 4:28pm), followed by transition to protonix 40mg PO bid (03/25/2024, 9:00pm), and which the patient will continue on hospital discharge home on 03/26/2024. To this end, patient's [facility] ([address] [place] [address]) received an electronic prescription for this medication on 03/26/2024, prior to hospital discharge home on 03/26/2024. Of note, patient will resume his home-scheduled ASA 81mg PO daily, plavix 75mg PO daily, and eliquis 5mg PO bid on hospital discharge home on 03/26/2024. Of note, patient will follow up with his PCP Dr. Nitish Lam within 3-5 days of hospital discharge to discuss the official results of gastric antral biopsies taken for histology during 03/25/2024, 11:31am EGD with GI Dr. Eduardo Gross. Of note, patient was advised to abstain from ETOH consumption in order to mitigate potential risk for ETOH-mediated acute blood loss anemia. Of final note, patient did not require or receive any packed RBC transfusions while in [facility]. (2) Upper GI bleed: See PLAN as described above for Acute Blood Loss Anemia. (3) Pre-syncope: Presyncope/Hypotension. Patient presented initially with dizziness and pre- syncope. Hence, there were initial concerns for hypovolemia from acute blood loss anemia versus recent increase in medication (e.g., metoprolol was increased from 50mg PO bid to 75mg PO bid ~2 weeks ago). Subsequently, patient was initially held off his home-scheduled metoprolol 75mg PO bid while in [facility] given the potential for this medication to exacerbate hypotension. In addition, patient was initially held off his home-scheduled lisinopril 40mg PO daily and his home-scheduled tamsulosin 0.4mg PO qhs while in [facility] given the potential for either/both medications to exacerbate hypotension Subsequently, patient was restarted on his home-scheduled metoprolol 75mg PO bid (03/25/2024, 9:00am) to provide continued rate-control given patient's past medical history of paroxysmal AFIB. Subsequently, patient was discharged home on 03/26/2024, and will continue his home-scheduled metoprolol 75mg PO bid and patient will also resume his home- scheduled lisinopril 40mg PO daily and tamsulosin 0.4mg PO qhs on hospital discharge home on 03/26/2024. (4) Diabetes mellitus: Long-term glycemic control remains unknown despite HbA1c 5.9% (03/08/2024, 5:59am). The reason that long term glycemic control remains unknown is that in anemic states, increased red blood cell turnover leads to concomitant reductions in both Hb and HbA1c levels. Hence, attention turned towards serum glucose levels instead of HbA1c levels to gauge short-term glycemic control in the hospital setting. cf., admission serum glucose 83 mg/dL (03/24/2024, 4:34pm). cf., repeat serum glucose 102 mg/dL (03/25/2024, 6:51am). cf., discharge serum glucose 121 mg/dL (03/26/2024. 3:35am). While in [facility], patient did not receive his home-scheduled metformin 2000mg PO qam (given potential for this medication to cause dyspepsia in this patient diagnosed with acute blood loss anemia) or his home-scheduled glimepiride 1mg PO daily (given potential for this medication to cause hypoglycemia). Instead, patient received a NovoLog insulin sliding scale before every meal and nightly, and POC glucose measurements before every meal and nightly while in [facility]. Now that acute blood loss anemia has resolved and also given that patient is being discharged back to his home today, 03/26/2024, on a carbohydrate consistent diet, patient will resume his homescheduled metformin 2000mg PO qam and his home-scheduled glimepiride 1mg PO daily on 03/26/2024, after patient arrives home. (5) Atrial fibrillation with RVR: Patient has a past medical history of paroxysmal atrial fibrillation with RVR. Admission EKG (03/24/2024, 4:55pm) revealed normal sinus rhythm at 72 with premature atrial complexes, no Q waves, no T wave inversions, and no acute ST segment elevations or depressions (by my review). -As stated in the PLAN section for Pre-Syncope above, patient was initially held off his home-scheduled metoprolol 75mg PO bid while in [facility] given the potential for this medication to exacerbate hypotension. Subsequently, patient was restarted on his home-scheduled metoprolol 75mg PO bid (03/25/2024, 9:00am) to provide continued rate-control given patient's past medical history of paroxysmal AFIB. Subsequently, patient was discharged home on 03/26/2024, and will continue his home-scheduled metoprolol 75mg PO bid. Patient will also resume his home- scheduled apixaban 5mg PO bid after being discharged back to his home on 05/2023, to provide continued, long-term active anticoagulation against potential thrombo-embolus in the setting of paroxysmal AFIB with RVR as patient has a CHADS2-VASC score = 4 points (e.g., 1 point for age 65-74 years, 1 point for HTN, 1 point for DM, and 1 point for PAD/PVD). (6) Hyponatremia: Chronic euvolemic hyponatremia with baseline Na range, 129-134 mmol/L (04/26 - 03/18/2024). cf., admission Na 130 mmol/L (03/24/2024, 4:34pm). cf., repeat Na 131 mmol/L (03/25/2024, 6:51am). cf., discharge Na 133 mmol/L (03/26/2024, 3:35am). Etiology of chronic euvolemic hyponatremia is due to ETOH-mediated dilution of serum Na levels AND to ETOH-mediated natri-uresis. Patient remained/remains asymptomatic with this mild degree of chronic euvolemic hyponatremia, and hence, was advised to abstain from ETOH imbibition while in [facility]. To this end, patient agreed to abstain from EtOH imbibition while [facility]. Plan Other chronic/miscellaneous medical conditions worth notin. Chronic ETOH (ab)use. Patient concedes to drinking 2 to 6 cans of beer on daily basis including the very day of admission, 03/24/2024 afternoon hours prior to arrival to [facility] ER. Of note, patient did not display any signs or symptoms of acute EtOH withdrawal/intoxication while in [facility] during this current hospitalization (03/24/2024 - 03/26/2024). 2. 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 Asymptomatic on home-scheduled gabapentin 800mg PO tid and duloxetine 60mg PO daily while in [facility]. Patient will continue both home-scheduled medications on hospital discharge home on 03/26/2024. 3. Peripheral Vascular Disease. Patient did not receive secondary prophylaxis against peripheral vascular disease utilizing his home-scheduled ASA 81mg PO daily and plavix 75mg PO daily while in [facility], given the potential for either/both medications to exacerbate patient's admitting diagnosis of acute blood loss anemia. Now that acute blood loss anemia has resolved, patient will resume both home-scheduled medications on hospital discharge home on 03/26/2024. 4. Past medical history of septic left TKA. Patient remained afebrile with a normal admitting WBC 10.06 (03/24/2024, 4:34pm), a normal repeat WBC 6.68 (03/25/2024, 6:51am) and a normal discharge WBC 4.89 (03/26/2024, 3:35am) with no erythema, edema, induration, warmth, tenderness, crepitus, fluctuance, discharge (sanguineous, serous, or suppurative), or lymphangitic streaking at left TKA site. Patient received suppressive therapy utilizing his home- scheduled doxycycline 100mg PO bid while in [facility]. Patient will continue this home-scheduled medication on hospital discharge home on 03/26/2024. 5. DVT prophylaxis. Patient did not receive pharmacologic DVT prophylaxis utilizing heparin or Lovenox given the potential for either medication to exacerbate patient's admitting diagnosis of acute blood loss anemia. Instead, patient received mechanical DVT prophylaxis utilizing sequential compression devices applied to the bilateral lower extremities while in [facility]. Of note, patient had no complaints of calf pain, leg swelling, or pleurisy, to suggest either DVT or PE while in [facility]. 6. Code status, FULL CODE. ACLS was never administered. There were no adverse events noted with this hospitalization. Condition of patient remains fair. As patient's principal admitting diagnosis of acute blood loss anemia has resolved, patient was subsequently discharged back to his home today, 03/26/2024, and will follow-up with his PCP Dr. Nitish Lam within 3 to 5 days of hospital discharge to discuss the official results of gastric antral biopsies taken for histology during 03/25/2024, 11:31am EGD with GI Dr. Eduardo Gross. Of final note, I spoke with the patient at the bedside and [facility] mid the surge bed #[id number], today, 03/26/2024, and the patient concurs with the assessment and plan as described above. Discharge time, 35 minutes. Of this time period, 17 minutes were spent in coordinating patient's discharge. 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 Pt presents with presyncope that began this afternoon as well as 5 days of upper, mid gastric abdominal pain and black stools. Pt states his abdominal pain is constant without anything that makes it worse or better. He states that his stools are dark, but formed. He denies emily blood in the commode following a bowel movement. Pt had nausea earlier today with some "dry heaving". He denies vomiting, bloody emesis, or diarrhea. Pt also denies chest pain, SOB, dysuria, hematuria. Pt states his blood pressure medication of metoprolol was increased from 50mg to 75 mg 2 weeks ago, today was the first day he noted dizziness and low blood pressures. Pt endorses daily use of alcohol ranging from 2-6 beers per day. Pt states he drank 2 beers this afternoon. Discharge Exam General: comfortable, coherent, cooperative. Wide awake and alert. Not confused, lethargic, or obtunded. Patient speaks in complete, fluent, and articulate sentences without pause, interruption, cough, or wheeze. HEENT: NC/AT. EOMI. PERRL. No nystagmus, gaze paresis, anisocoria, miosis, chemosis, mydriasis, hyphema, scleral injection, conjunctivitis, or pterygium. No otorrhea or rhinorrhea. No pharyngeal discharge or erythema. Neck: Supple, no stridor, bruit, goiter, JVD, or HJR. Chest: Symmetric rise and fall with respirations. Lungs: CTA/P. No audible expiratory wheeze, egophony, pectoriloquy, increase in tactile fremitus, or flatness/dullness to percussion at the bases. Heart: RRR, S1 and S2 noted. No S3 or S4 summation gallop. Grade II/ early systolic murmur @ LLSB, without radiation to the carotids, axilla, or back, and which remains invariant in regards to the respiratory cycle. Abdomen: Soft, NT, ND, no organomegaly. Bowel sounds auscultated in all 4 quadrants. Extremities: No clubbing, cyanosis, or edema. 2+ pedal pulses bilaterally. Skin: No decubitus ulcer, exanthem, or enanthem. Neurology: Alert and oriented in regards to person, place, time, or situation. 5/5 motor strength in all 4 extremities, both proximally and distally. Urology: No clancy catheter. No urethral discharge. Discharge Plan Discharge Items Patient Disposition: Home - Self-Care Reason For Visit: ABDOMINAL PAIN, BLACK STOOLS, PRESYNCOPAL Discharge Diagnosis: Acute blood loss anemia with gastric erosions (noted on 03/25/2024, 11:31am EGD, GI Dr. Eduardo Gross) Activity: Resume your previous activity Non-emergency contact: Primary Care Provider Call non-emergency contact if: you have any medication questions Follow-up/Referrals: Nitish Lam MD [Primary Care Provider] - Diet: Carb Consistent or DM2, Heart Healthy, Low Fat and Low Sodium (2gm) Addtl Attending Provider Instructions: Follow up with your PCP Dr. Nitish Lam within 3-5 days of hospital discharge to discuss the official results of gastric antral biopsies taken during 03/25/2024, 11:31am EGD with GI Dr. Eduardo Gross. Pending Studies at Discharge: No Stand-Alone Forms: My [facility], Smoking Cessation Medications and DC Order Prescriptions: New pantoprazole 40 mg Tablet,Delayed Release (Dr/Ec) 40 mg PO BID Qty: 60 0RF doxycycline hyclate 100 mg Capsule 100 mg PO BID Qty: 60 0RF Continued Eliquis 5 mg tablet 5 mg PO BID Qty: 180 3RF duloxetine [Cymbalta] 60 mg capsule,delayed release(DR/EC) 60 mg PO QAM Qty: 90 3RF metformin 500 mg tablet extended release 24 hr 2,000 mg PO QAM Qty: 360 3RF lisinopril 40 mg tablet 40 mg PO QAM Qty: 90 3RF gabapentin 400 mg capsule 800 mg PO TID 90 Days Qty: 540 3RF tramadol 50 mg tablet 100 mg PO BID PRN (Reason: pain) Qty: 120 0RF metoprolol succinate 25 mg tablet extended release 24 hr 75 mg PO BID Qty: 180 2RF glimepiride 1 mg tablet 1 mg PO QAM Qty: 90 3RF aspirin [Adult Low Dose Aspirin] 81 mg tablet,delayed release (DR/EC) 81 mg PO QAM magnesium oxide 400 mg magnesium capsule 400 mg PO QPM acetaminophen 650 mg Tablet Extended Release 650 mg PO Q8H PRN (Reason: ARTHRITIS PAIN) Patient Comments: takes at least 2 tablets every day. cyanocobalamin (vitamin B-12) [Vitamin B-12] 1,000 mcg Tablet 1,000 mcg PO QAM clopidogrel [Plavix] 75 mg tablet 75 mg PO QAM tamsulosin 0.4 mg capsule 0.4 mg PO HS Repatha SureClick 140 mg/mL pen injector 140 mg subcut USEASDIRECTD Rx Instructions: Every 2 weeks Probiotic 20 billion cell Capsule 20,000 mmu cells PO QPM Rx Instructions: administer with a meal furosemide 20 mg Tablet 20 mg PO QAM Qty: 30 2RF Discontinued pantoprazole 40 mg tablet,delayed release (DR/EC) 40 mg PO QAM Qty: 90 3RF doxycycline hyclate 100 mg tablet 100 mg PO BID Rx Instructions: Pt: "I take 100mg by mouth twice daily. The pharmacy dispensed the medication incorrectly." Original Directions: 100mg by mouth daily Discharge Orders: Discharge Order (Routine); Ordered 03/26/24 Ordered By: Ash Graf Admission Data Admit Date/Time: 03/24/24 18:59 Attending Provider: Ash Graf Admit Provider: Travis Taylor Primary Care Provider: Nitish Lam Other Providers: Travis Taylor; Reid Garces; Arleen Hoskins Hospital Stay Data Consultations 03/24/24 17:48 ED Decision to Admit Stat 03/25/24 00:40 Consult Gastroenterology Routine Procedures Performed Operation Date: 03/25/24 17:10 Actual Procedures p EGD Biopsy Cytology - Eduardo Gross, DO Diagnostic Imagining Performed 03/24/24 16:28 CT abd pelvis IV con only Stat Pending Results Patient Have Any Pending Studies at Discharge: No Discharge Instructions Given to Patient (Per Discharging Provider) Follow up with your PCP Dr. Nitish Lam within 3-5 days of hospital discharge to discuss the official results of gastric antral biopsies taken during 03/25/2024, 11:31am EGD with GI Dr. Eduardo Gross. Total Time Total Time Spent Total Time Spent (In Minutes): 35 minutes Coding Level of Care Code 73271 INP/OBS DISCH >30 MIN Diagnoses Acute blood loss anemia D62 Upper GI bleed K92.2 Pre-syncope R55 Diabetes mellitus E11.9 Atrial fibrillation with RVR I48.91 Hyponatremia E87.1
[2024-03-26 13:36] VITALS: PULSE 63
== END 2024-03-26 14:29 | disposition home or self-care (01) | DRG 378 ==
LOC: ED 16:14 → 2N 18:59 → SUATTDRO 18:59 → 2N 22:20

== ENCOUNTER 2024-08-03 15:56 | Inpatient (IN) ==
[2024-08-03] MEDS: ADENOSINE IV SOLN 3 MG/ML 2 ML VIAL IV ONE ×5 (16:15→17:06)
[2024-08-03 16:20] LABS: iSTAT Hemoglobin 12.9 g/dl (14.0-18.0); iSTAT Ionized Calcium 1.08 mmol/l (1.12-1.32); iSTAT Potassium 3.2 mmol/L (3.3-5.0)
[2024-08-03] MEDS ORDERED: STAT IV Infusion **Titration per Protocol STA ×2 (16:25→18:44)
[2024-08-03] MEDS ORDERED: dilTIAZem HCL 125 MG in DEXTROSE 5% 100 ML IV SCH (16:30)
[2024-08-03] MEDS: MAGNESIUM SULFATE 1GM / D5W BAG IV ONE (16:36)
[2024-08-03 17:08] LABS: Albumin Level 4.1 gm/dl (3.4-5.0); Bilirubin,Total 0.3 mg/dl (0.2-1.0); Calcium 9.7 mg/dl (8.6-10.3); Creatinine Clr Calc Pharmacy 127.9 ml/min; Globulin 4.1 gm/dl (2.5-4.0); Potassium 3.2 mmol/L (3.5-5.1); Total Protein 8.2 gm/dl (6.0-8.3)
[2024-08-03] MEDS: DILTIAZEM IV STA (17:10)
[2024-08-03] MEDS: dilTIAZem HCl 5 MG/ML 5 ML VIAL IV ONE (17:11)
[2024-08-03 17:17] LABS: Basophils % (auto) 0.9 %; Eosinophils # (auto) 0.16 K/uL (0.00-0.50); Eosinophils % (auto) 1.4 %; Hemoglobin 12.2 g/dl (14.0-18.0); Immature Granulocytes # (auto) 0.23 K/uL (0.01-0.20); Lymphocytes # (auto) 2.43 K/uL (1.20-3.40); Lymphocytes % (auto) 21.6 %; Mean Corpuscular Hemoglobin 35.4 pg (25.0-34.0); Mean Corpuscular Volume 107.2 fL (80.0-100.0); Mean Platelet Volume 11.1 fL (9.4-12.4); Monocytes # (auto) 1.11 K/uL (0.11-0.59); Monocytes % (auto) 9.9 %; Neutrophils # (auto) 7.21 K/uL (1.40-6.50); Neutrophils % (auto) 64.2 %; Nucleated RBC # (auto) 0.03 K/uL (0.00-0.12); Nucleated RBC % (auto) 0.3 %; Platelet Count 339 K/uL (130-400); RDW Coefficient of Variation 15.9 % (11.5-14.5); RDW Standard Deviation 63.8 fL (36.4-46.3); Red Blood Count 3.45 M/uL (4.70-6.10); Troponin I High Sensitivity 91.2 pg/ml (0-20); White Blood Count 11.24 K/ul (4.8-10.8)
--- NOTE | 2024-08-03 17:23 | Emergency Department Note ---
Impression & Plan Sustained SVT, Chest pain, Elevated troponin, Demand ischemia ED Provider Note NAME: RAKEL GAXIOLA AGE: 64 SEX: M : 1960 ARRIVES VIA: Walk-In INFORMANT: Patient, ED PROVIDER(S): Ethan Park MD CHIEF COMPLAINT: Elevated heart HPI: This is a 64-year-old male presenting for elevated heart rate. Patient notes that he had episode yesterday where he felt his heart racing and he felt somewhat short of breath. This resolved about 1 hour. This happened again today and is heart rate was elevated which he took on a home blood pressure monitor. He notes heart rate was about 199 prior to coming in. Patient is a history of A-fib as well as previous AL. He is on blood thinners including Plavix and Eliquis. He notes no current pleurisy or chest pain. ROS: See above HPI for pertinent positives & negatives. A total of 10 systems reviewed and were otherwise negative. PAST MEDICAL HISTORY: See Below PAST SURGICAL HISTORY: See Below FAMILY HISTORY: See Below SOCIAL HISTORY: See Below HOME MEDICATIONS: See Below ALLERGIES: See Below VITALS: See Below PHYSICAL EXAMINATION: General: resting comfortably in no acute distress Head: Normocephalic and atraumatic Eyes: Normal inspection, extraocular muscles intact Ear, nose, throat: Normal external exam Neck: Normal range of motion Respiratory: lungs clear to auscultation bilaterally Cardiovascular: Regular rate/rhythm, no murmur GI: soft, nontender, no guarding or rebound Extremities: nontender, moves all extremities Neuro: The patient awake and alert, appropriately conversive, no focal deficits, symmetric faces Skin: Warm, dry, and intact MEDICAL DECISION MAKING: This is a 64-year-old male presents for elevated heart rate. Patient currently is in SVT with a rate of 210. EKG does confirm SVT. Did discuss options including adenosine and cardioversion. Patient states he is not care and request I make the decision -Initially attempted revert maneuver. This did not improve heart rate x 2. -Patient then attempted for adenosine cardioversion. Adenosine given, 6 mg with initial slowing of rates. He had a few beats of what appears to be sinus on the EKG strip. Then he went back into his SVT. -This was attempted 2 more times with 12 mg of adenosine. Each time he was slow down to a sinus rhythm for about 10-15 beats and then go back into a SVT rhythm. -After third time, patient became diaphoretic with chest pain. He was having normal blood pressures about 120 systolic. Decision made to give diltiazem, 10 mg at this time -After 10 mg IV bolus, patient spontaneously converted to sinus rhythm within 10 to 20 minutes -He notes resolution of chest pain but does feel tired at this time -slightly low potassium as well, given oral repletion -Otherwise patient was given 2 g magnesium during chemical cardioversion attempt -Patient opponent appears elevated at over 91 -Due to elevated troponin, reported chest pain, will admit for further workup. Could be may ischemia from patient's tachycardia otherwise -First ECG independently interpreted by me with supraventricular tachycardia rate of 212, incomplete right bundle branch noted, normal QTc, no ST segment elevations consistent with STEMI criteria -Second ECG independently interpreted by me with normal sinus rhythm, rate of 83, normal IN, normal QRS, normal QTc, no ST segment elevations consistent with STEMI criteria slight ST depression in leads V5, V6 Differential diagnosis: SVT, A-fib, tachydysrhythmia Independent History obtained from: Diagnostics interpreted by me: ECG: See above Cardiac Monitoring: An order was placed for continuous cardiac monitoring. The monitor shows a rate of 94 with sinus rhythm. Critical Care Note: I have personally spent 55 minutes of critical care time in the direct management of this patient. This includes bedside care, interpretation of diagnostic studies, and testing, discussion with consultants, patient, and family members, and other required patient management activities. This 55 minutes is in excess of all separately billable procedures. Past Med/Surg History Problem List (Updated 08/03/24 @ 18:49 by Princess Al MD) A-fib Obesity Alcohol use Tobacco use SVT (supraventricular tachycardia) Statin myopathy Black stool Abdominal pain Abnormal CT scan, lung Iron deficiency anemia FLAHERTY (dyspnea on exertion) (Acute) Symptomatic anemia Infection of prosthetic left knee joint Rotator cuff arthropathy of both shoulders Pulmonary nodule Ventricular tachycardia (paroxysmal) History of total knee arthroplasty (Acute) Peripheral vascular disease (Acute) Stenosis of both vertebral arteries Idiopathic polyneuropathy Stenosis of right internal carotid artery Diabetic neuropathy Nocturia Chronic anemia Statin intolerance Nocturnal hypoxemia Ectopic atrial rhythm Osteoarthritis of right hip Trochanteric bursitis of left hip Presence of bare metal stent in anterior descending branch of left coronary artery Male erectile disorder of organic origin Vitamin D deficiency Medical History Hx of ventricular tachycardia hx - no recent issues per patient - f/u [facility] Cardiology (Lee Ordonez) History of bleeding ulcers Summer 2023 - treated at [facility] Hx of myocardial infarction Anterolateral AL- 2007, [place], had cardiac cath w/2 stents; hx of seeing [facility] Cardiology, currently follows with [facility] Cardiology (Lee Ordonez) Pulmonary nodule monitoring with [facility] Tadeo Conde. History of atrial fibrillation resolved. Hx of sepsis July 2023 r/t laceration and infection - treated at [facility]. Alcohol abuse Macrocytosis hx - resolved Acute heart failure with preserved ejection fraction resolved - Fall 2023 with severe anemia Atrial tachycardia, paroxysmal pt denies any current issues Postlaminectomy syndrome of lumbar region Peripheral arterial disease Severe occlusive disease S/p L common femoral endarterectomy with bovine patch and lithotripsy of SFA and Popliteal arteries , status post bilateral common iliac artery [employer] and stents. Hypertension Sleep apnea "Mild to moderate"- unable to tolerate machine. Diabetes mellitus, type 2 NIDDM History of anemia Hx of solitary pulmonary nodule monitoring>no change in size since 2021 BPH (benign prostatic hyperplasia) Nocturia History of cardioversion 01/2021, [facility]; f/u dr. gutierrez (per medical record - pt denies/[place]) Neuropathy History of chronic back pain Neurogenic claudication due to lumbar stenosis History of COVID-19 03/18/2022>resolved 06/28/23 + home test - congestion. Tx with pill. Resolved. No current s/s. History of anxiety Paroxysmal atrial flutter 01/2021- s/p cardoversion- with excessive alcohol intake- felt to be contributing component. No AC. No recurrence per PCP records 07/29/22- - Recurrence in preop area prior to surgery - sent from ACU to ED- admitted to [facility] 07/29/22-07/30/22; f/u dr. gutierrez, [place] Bilateral carotid artery stenosis Per 11/2021 Carotid Doppler: 50-69% stenosis of right ICA, less than 50% stenosis of left ICA, greater than 50% stenosis of right ECA Antegrade flow in both vertebral arteries CAD in [place] artery s/p LAD stent x2 () History of gastric ulcer No recent issues Degenerative disc disease GERD (gastroesophageal reflux disease) Well controlled and stable Hyperlipidemia Surgical History History of cardiac cath (2007) x2 cardiac stents History of right-sided carotid endarterectomy REGINA Thompson (12/2023) S/P [place] of [place] [facility] [place] of transesophageal echocardiography (GLADYS) for monitoring 01/2021, [facility] History of revision of total knee arthroplasty left knee, with "clean out" per pt; sepsis in left knee in 07/2023, no current issues per pt-finished 6 week abx thru PICC line 09/10/23. Hx of cardiac cath 2007, x2 stents; asa abbasi Presence of neurostimulator 2022 S/P insertion of iliac artery stent 2022, [facility], Dr. Garcia/2 stents. History of endarterectomy Left Femoral Endarterectomy with Bovine Patch 05/08/2022 & right side done 05/28/2023 Hx of cataract extraction rt/lt. History of anesthesia reaction with back surgery in 2004, disoriented, pulled catheter out at [facility] Fusion of spine ~2012, C4-C7, "HAVE 80% OF MOTION" History of lumbar surgery X 3 - 2004, 2006, 2019, [facility] History of total knee replacement right/left (remote history) Hx of transurethral resection of prostate History of esophagogastroduodenoscopy (EGD) History of colonoscopy History of nasal septoplasty History of heart artery stent 2007, x2 stent, [place]; f/u [facility] ovalle Family History Mother Heart disease Diabetes Father Cancer Head and Neck Heart disease Brother Lung cancer Carotid artery stenosis Brother Diabetes Brother Coronary heart disease Sister No problems noted. Other No family history of adverse response to anesthesia Denies family history of Ovarian cancer Prostate cancer Myocardial infarction Breast cancer Colorectal cancer Social History Smoking Status: Current every day smoker Tobacco Type: Cigarettes Age Started Using Tobacco: 18; packs per day: 0.5; Cigarettes Per Day: 6-8; Second Hand Exposure: No; Do You Dip or Chew Tobacco: Yes (1 can/4 days (advised on policy)); Hx Alcohol Use: Yes Alcohol type: beer Alcohol type Comment: 6-8 beers Hx Substance Use: No Preferred Language: Niuean Communication Ability: Effective Visual Impairment: No Limitations Gis Consultant Required: No Beliefs That Will Affect Care: None marital status: Current Living Situation: Spouse Current Living Situation Comment: Lives at home with current occupational status: retired How many Children do You have: 4 Feels Safe at Home: Yes Childhood Exposure to Second-Hand Smoke: Yes Diet: regular caffeine: Yes Dental Care, Regularly: Yes Physical Activity Frequency: Does not Exercise Seatbelt Use: always Sunscreen Use: No Assistive Devices: Cane Allergies Allergies Allergy/AdvReac Type Severity Reaction Status Date / Time latex Allergy Unknown Rash Verified 07/13/24 14:00 Penicillins Allergy Unknown Rash Verified 07/13/24 14:00 adhesive AdvReac Unknown Rash Verified 07/13/24 14:00 dronedarone AdvReac Unknown Fatigued Verified 07/13/24 14:00 gemfibrozil AdvReac Unknown BODY ACHES Verified 07/13/24 14:00 NSAIDS (Non-Steroidal AdvReac Unknown TOLD NOT Verified 07/13/24 14:00 Anti-Inflamma TO TAKE - HX STOMACH ULCER Nrllxyu-BSA-UhO Reductase AdvReac Unknown body aches Verified 07/13/24 14:00 Inhibitor [Svhuice-Sib-Rwo Reductase Inhibitor] Home Meds Home Medications Medication Instructions Recorded Confirmed acetaminophen 650 mg 650 mg PO Q8H PRN ARTHRITIS PAIN 12/06/20 08/03/24 tablet,extended release cyanocobalamin (vitamin B-12) 1,000 mcg PO QAM 08/26/22 08/03/24 1,000 mcg tablet (Vitamin B-12) clopidogrel 75 mg tablet (Plavix) 75 mg PO QAM 07/18/23 08/03/24 magnesium oxide 400 mg PO QPM 09/22/23 08/03/24 lactobacillus comb no.10 20 20,000 mmu cells PO QPM 10/08/23 08/03/24 billion cell capsule (Probiotic) apixaban 5 mg tablet (Eliquis) 2.5 mg PO BID 04/16/24 08/03/24 doxycycline hyclate 100 mg capsule 100 mg PO QAM prevention 06/22/24 08/03/24 Previous Rx's Medication Instructions Recorded gabapentin 400 mg capsule 800 mg (2 x 400 mg) PO TID 90 days 02/13/24 #540 caps glimepiride 1 mg tablet 1 mg PO QAM #90 tabs 03/18/24 evolocumab 140 mg/mL subcutaneous 140 mg subcut Q14D #6 mL 06/01/24 pen injector (Sally Villavicencio) furosemide 20 mg tablet 20 mg PO QAM #90 tabs 06/01/24 pantoprazole 40 mg tablet,delayed 40 mg PO BID #180 tabs 06/11/24 release duloxetine 60 mg capsule,delayed 60 mg PO QAM #90 caps 07/08/24 release (Cymbalta) metformin 500 mg tablet,extended 2,000 mg (4 x 500 mg) PO QAM #360 07/08/24 release 24 hr tabs metoprolol succinate 25 mg 75 mg (3 x 25 mg) PO BID #270 tabs 07/08/24 tablet,extended release 24 hr tamsulosin 0.4 mg capsule 0.4 mg PO HS #90 caps 08/02/24 tramadol 50 mg tablet 100 mg (2 x 50 mg) PO BID PRN pain 08/02/24 #120 tabs Results & Data (ED) Vital Signs Vital Signs - 24 hr 08/03/24 15:56 08/03/24 16:03 08/03/24 16:06 Temperature 36.7 C Temperature Source Temporal Artery Scan Pulse Rate 211 H 211 H 210 H Pulse Rate [Right Finger] Pulse Rate from SpO2 Sensor 209 H Respiratory Rate 20 37 H Respiratory Effort / Characteristics Blood Pressure 134/80 146/90 H Blood Pressure [Right Arm] Blood Pressure Mean 98 108 Blood Pressure Mean [Right Arm] Blood Pressure Position [Right Arm] Pulse Oximetry 94 94 Oxygen Delivery Method Room Air Oxygen Flow Rate Sepsis Recent Fever Within 48 Hours No Sepsis New/Unexplained Change in Mental Status N/A Sepsis Action Taken by Nursing No Action Required 08/03/24 16:15 08/03/24 16:29 08/03/24 16:30 Temperature Temperature Source Pulse Rate 211 H 208 H Pulse Rate [Right Finger] Pulse Rate from SpO2 Sensor 208 H Respiratory Rate 31 H Respiratory Effort / Characteristics Blood Pressure 109/75 124/82 118/95 Blood Pressure [Right Arm] Blood Pressure Mean 89 96 102 Blood Pressure Mean [Right Arm] Blood Pressure Position [Right Arm] Pulse Oximetry 94 Oxygen Delivery Method Oxygen Flow Rate Sepsis Recent Fever Within 48 Hours Sepsis New/Unexplained Change in Mental Status Sepsis Action Taken by Nursing 08/03/24 16:30 08/03/24 16:30 08/03/24 16:41 Temperature Temperature Source Pulse Rate 85 Pulse Rate [Right Finger] Pulse Rate from SpO2 Sensor Respiratory Rate 28 H Respiratory Effort / Characteristics Blood Pressure 118/95 118/95 Blood Pressure [Right Arm] Blood Pressure Mean 106 106 Blood Pressure Mean [Right Arm] Blood Pressure Position [Right Arm] Pulse Oximetry 94 95 Oxygen Delivery Method Nasal Cannula Nasal Cannula Oxygen Flow Rate 2 2 Sepsis Recent Fever Within 48 Hours Sepsis New/Unexplained Change in Mental Status Sepsis Action Taken by Nursing 08/03/24 16:44 08/03/24 16:45 08/03/24 16:50 Temperature Temperature Source Pulse Rate 85 83 Pulse Rate [Right Finger] 91 H Pulse Rate from SpO2 Sensor Respiratory Rate 34 H 34 H Respiratory Effort / Characteristics Blood Pressure 113/64 Blood Pressure [Right Arm] Blood Pressure Mean 89 Blood Pressure Mean [Right Arm] Blood Pressure Position [Right Arm] Pulse Oximetry 97 95 Oxygen Delivery Method Nasal Cannula Nasal Cannula Oxygen Flow Rate 2 2 Sepsis Recent Fever Within 48 Hours Sepsis New/Unexplained Change in Mental Status Sepsis Action Taken by Nursing 08/03/24 17:09 08/03/24 18:00 Temperature Temperature Source Pulse Rate 85 Pulse Rate [Right Finger] 94 H Pulse Rate from SpO2 Sensor 74 Respiratory Rate 24 18 Respiratory Effort / Characteristics Non-Labored Spontaneous Blood Pressure 117/64 Blood Pressure [Right Arm] 132/64 Blood Pressure Mean 81 Blood Pressure Mean [Right Arm] 86 Blood Pressure Position [Right Arm] Lying Pulse Oximetry 95 91 Oxygen Delivery Method Nasal Cannula Room Air Oxygen Flow Rate 2 Sepsis Recent Fever Within 48 Hours Sepsis New/Unexplained Change in Mental Status Sepsis Action Taken by Nursing Laboratory Data 08/03/24 16:03 08/03/24 16:03 Lab Results 08/03/24 08/03/24 08/03/24 Range/Units 16:03 16:05 16:09 WBC 11.24 H (4.8-10.8) K/ul RBC 3.45 L (4.70-6.10) M/uL Hgb 12.2 L (14.0-18.0) g/dl POC Hgb 12.9 L (14.0-18.0) g/dl Hct 37.0 L (42.0-52.0) % POC Hct 38 L (42-52) % MCV 107.2 H (80.0-100.0) fL MCH 35.4 H (25.0-34.0) pg MCHC 33.0 (32.0-36.0) g/dL RDW Std Deviation 63.8 H (36.4-46.3) fL RDW Coeff of Kvng 15.9 H (11.5-14.5) % Plt Count 339 (130-400) K/uL MPV 11.1 (9.4-12.4) fL Immature Gran % (Auto) 2.0 % Neut % (Auto) 64.2 % Lymph % (Auto) 21.6 % [place] % (Auto) 9.9 % Eos % (Auto) 1.4 % Baso % (Auto) 0.9 % Neut # (Auto) 7.21 H (1.40-6.50) K/uL Lymph # (Auto) 2.43 (1.20-3.40) K/uL [place] # (Auto) 1.11 H (0.11-0.59) K/uL Eos # (Auto) 0.16 (0.00-0.50) K/uL Baso # (Auto) 0.10 (0.00-0.20) K/uL Immature Gran # (Auto) 0.23 H (0.01-0.20) K/uL Absolute Nucleated RBC 0.03 (0.00-0.12) K/uL Nucleated RBC % (auto) 0.3 % POC Sodium 135 (135-144) mmol/L Sodium 134 L (136-145) mmol/L POC Potassium 3.2 L (3.3-5.0) mmol/L Potassium 3.2 L (3.5-5.1) mmol/L POC Chloride 97 L (101-112) mmol/L Chloride 96 L (98-107) mmol/L Carbon Dioxide 24 (21-32) mmol/L POC Total CO2 23 L (24-31) mmol/L Anion Gap 14 H (3-11) POC Anion Gap 19.0 (16-25) mmol/L POC BUN 7 (7-18) mg/dl BUN 8 (6-23) mg/dl Creatinine 0.73 (0.6-1.4) mg/dl POC Creatinine 1.0 (0.6-1.3) mg/dl Est Cr Clr Drug Dosing 127.9 ml/min eGFR 100.34 BUN/Creatinine Ratio 11.0 (10-20) Glucose 112 H (70-99(Fasting)) mg/dl POC Glucose (other) 115 H (70-99) mg/dl Calcium 9.7 (8.6-10.3) mg/dl POC Ioniz Calcium Sky 1.08 L (1.12-1.32) mmol/l Total Bilirubin 0.3 (0.2-1.0) mg/dl AST 20 (13-39) U/L ALT 21 (7-52) U/L Alkaline Phosphatase 94 (34-104) U/L Troponin I High Sens 91.2 H* (0-20) pg/ml Total Protein 8.2 (6.0-8.3) gm/dl Albumin 4.1 (3.4-5.0) gm/dl Globulin 4.1 H (2.5-4.0) gm/dl Albumin/Globulin Ratio 1.0 (0.9-2) Lipase 29 (11-82) U/L Adenovirus (PCR) Not Detected (NotDetected) B. pertussis DNA (PCR) Not Detected (NotDetected) B.parapertussis DNA PCR Not Detected (NotDetected) C. pneumoniae DNA (PCR) Not Detected (NotDetected) Coronavirus OC43 (PCR) Not Detected (NotDetected) Coronavirus HKU1 (PCR) Not Detected (NotDetected) Coronavirus 229E (PCR) Not Detected (NotDetected) SARS-CoV-2 (PCR) Not Detected (NotDetected) Coronavirus NL63 (PCR) Not Detected (NotDetected) Human Metapneumovir PCR Not Detected (NotDetected) Influenza Type A (PCR) Not Detected (NotDetected) Influenza Type B (PCR) Not Detected (NotDetected) M. pneumoniae (PCR) Not Detected (NotDetected) Parainfluenza 1 (PCR) Not Detected (NotDetected) Parainfluenza 2 (PCR) Not Detected (NotDetected) Parainfluenza 3 (PCR) Not Detected (NotDetected) Parainfluenza 4 (PCR) Not Detected (NotDetected) RSV (PCR) Not Detected (NotDetected) Entero/Rhino (PCR) Not Detected (NotDetected) Administered Medications Discontinued Medications Adenosine (Adenosine Iv Soln 3 Mg/Ml 2 Ml Vial) Confirm Administered Dose 6 mg IV .STK-MED ONE Stop: 08/03/24 16:04 Last Admin: 08/03/24 17:06 Dose: Not Given [place]ed [place] [facility] [place] Adenosine (Adenosine Iv Soln 3 Mg/Ml 2 Ml Vial) Confirm Administered Dose 24 mg IV .STK-MED ONE Stop: 08/03/24 16:06 Last Admin: 08/03/24 17:06 Dose: Not Given Documented By: [facility] [place] Adenosine (Adenosine Iv Soln 3 Mg/Ml 2 Ml Vial) 6 mg IV NOW ONE Stop: 08/03/24 17:01 Last Admin: 08/03/24 16:15 Dose: 6 mg Documented By[place] [facility] [place] Adenosine (Adenosine Iv Soln 3 Mg/Ml 2 Ml Vial) 12 mg IV NOW ONE Stop: 08/03/24 17:01 Last Admin: 08/03/24 16:18 Dose: 12 mg Documented By: [facility] [place] Adenosine (Adenosine Iv Soln 3 Mg/Ml 2 Ml Vial) 12 mg IV NOW ONE Stop: 08/03/24 17:01 Last Admin: 08/03/24 16:21 Dose: 12 mg Documented By: [facility] [place] Diltiazem HCl (Diltiazem Hcl 5 Mg/Ml 5 Ml Vial) Confirm Administered Dose 25 mg IV .STK-MED ONE Stop: 08/03/24 16:25 Last Admin: 08/03/24 17:11 Dose: Not Given [place]ed By: [facility] [place] Diltiazem HCl (Cardizem) 2 mls @ 5 mls/min IV NOW STA Stop: 08/03/24 16:28 Last Admin: 08/03/24 17:10 Dose: 5 mls/min [place]ed By: [facility] [place] Co-signed By: CC Calcium Gluconate () 1,000 mg in 60 mls @ 240 mls/hr IV NOW STA Stop: 08/03/24 18:53 Last Admin: 08/03/24 19:06 Dose: 240 mls/hr Documented By: ISAC Amiodarone HCl/Dextrose (Nexterone / D5w) 150 mg in 100 mls @ 600 mls/hr IV NOW STA Stop: 08/03/24 18:53 Last Admin: 08/03/24 19:05 Dose: 600 mls/hr Documented By: ISAC Co-signed By: FREDA Magnesium Sulfate/Dextrose (Magnesium Sulfate 1gm / D5w Bag) Confirm Administered Dose 2 gm IV .STK-MED ONE Stop: 08/03/24 16:30 Last Admin: 08/03/24 16:36 Dose: 2 gm Documented By: VICKI Potassium Chloride (Potassium Chloride Crtab 20 Meq Tabcr) 40 meq PO NOW STA Stop: 08/03/24 17:14 Last Admin: 08/03/24 17:28 Dose: 40 meq Documented By: VICKI Potassium Chloride (Potassium Chloride Crtab 20 Meq Tabcr) 40 meq PO NOW STA Stop: 08/03/24 18:02 Last Admin: 08/03/24 18:15 Dose: 40 meq Documented By: ISAC Imaging Data Radiologist's Impression: Chest X-Ray 08/03/24 16:41 EXAM: Radiograph of the Chest 1 View INDICATION: Chest pain TECHNIQUE: Frontal view of the chest. COMPARISON: 03/07/2024 FINDINGS: Lungs and pleural spaces: No consolidation or pulmonary edema. No pleural effusion or pneumothorax. Heart: Stable large cardiac shadow. Mediastinum: Normal contour. Bones/joints: No fracture, erosion or dislocation. Soft tissues: No abnormality noted. No radiopaque foreign body noted. Tubes, lines and devices: Stable spinal stimulator. Upper abdomen: No abnormality noted. IMPRESSION: No acute cardiopulmonary disease. ACT 112: N/A Electronically signed by Reba Handy 08-03-2024 5:38 PM Discharge Plan Visit Data Chief Complaint: Cardiac Assessment Stated Complaint: CHEST PAIN ED Provider: Ethan Park Discharge Problem: Sustained SVT, Chest pain, Elevated troponin, Demand ischemia Forms Stand Alone Forms: My Thumb Reading Prescriptions Prescriptions: No Action gabapentin 400 mg capsule 800 mg PO TID 90 Days Qty: 540 3RF glimepiride 1 mg tablet 1 mg PO QAM Qty: 90 3RF furosemide 20 mg tablet 20 mg PO QAM Qty: 90 3RF Repatha SureClick 140 mg/mL pen injector 140 mg subcut Q14D Qty: 6 3RF Rx Instructions: JUST RESTARTED pantoprazole 40 mg tablet,delayed release (DR/EC) 40 mg PO BID Qty: 180 3RF metformin 500 mg tablet extended release 24 hr 2,000 mg PO QAM Qty: 360 3RF metoprolol succinate 25 mg tablet extended release 24 hr 75 mg PO BID Qty: 270 3RF duloxetine [Cymbalta] 60 mg capsule,delayed release(DR/EC) 60 mg PO QAM Qty: 90 3RF tamsulosin 0.4 mg capsule 0.4 mg PO HS Qty: 90 3RF tramadol 50 mg tablet 100 mg PO BID PRN (Reason: pain) Qty: 120 0RF magnesium oxide 400 mg magnesium capsule 400 mg PO QPM acetaminophen 650 mg Tablet Extended Release 650 mg PO Q8H PRN (Reason: ARTHRITIS PAIN) Patient Comments: takes at least 2 tablets every day. cyanocobalamin (vitamin B-12) [Vitamin B-12] 1,000 mcg Tablet 1,000 mcg PO QAM clopidogrel [Plavix] 75 mg tablet 75 mg PO QAM Probiotic 20 billion cell Capsule 20,000 mmu cells PO QPM Rx Instructions: administer with a meal doxycycline hyclate 100 mg capsule 100 mg PO QAM Eliquis 5 mg tablet 2.5 mg PO BID Referrals Referrals: Nitish Lam MD [Primary Care Provider] -
[2024-08-03] MEDS: POTASSIUM CHLORIDE CRTAB 20 MEQ TABCR PO STA ×2 (17:28→18:15)
--- NOTE | 2024-08-03 17:38 | XRay Report ---
EXAM: Radiograph of the Chest 1 View INDICATION: Chest pain TECHNIQUE: Frontal view of the chest. COMPARISON: 03/07/2024 FINDINGS: Lungs and pleural spaces: No consolidation or pulmonary edema. No pleural effusion or pneumothorax. Heart: Stable large cardiac shadow. Mediastinum: Normal contour. Bones/joints: No fracture, erosion or dislocation. Soft tissues: No abnormality noted. No radiopaque foreign body noted. Tubes, lines and devices: Stable spinal stimulator. Upper abdomen: No abnormality noted. IMPRESSION: No acute cardiopulmonary disease. ACT 112: N/A Electronically signed by Reba Handy 08-03-2024 5:38 PM
--- NOTE | 2024-08-03 17:46 | History & Physical Report ---
Date of Service August 03, 2024 Assessment & Plan (1) SVT (supraventricular tachycardia): Plan: Patient with multiple risk factors for a fib/SVT - alcohol use, tobacco use, likely OHS/JJ, atrial dilation, CAD with prior FL etc. Did break with adenosine 6 mg x1, 12 mg x 2. Given dilt 10 mg x 1. CP, SOB, and diaphoresis have resolved. Discussed with Dr. Shipman - will start amio gtt with bolus. Defer on repeat ECHO to cardiology team. Patient on 2.5 mg BID Eliquis due to bleeding. Continue metoprolol succinate 75 mg BID and furosemide 20 mg daily. Electrolytes optimized - Given Mg 1g x 2, K 40 mg PO x 2, and 1 g calcium gluconate. check TSH, HbA1c, lipids trend trops - up-trending, if CP returns would start heparin gtt K > 4 Mg > 2 cards consult - appreciate recs amio gtt for now (2) Diabetes mellitus, type 2: Plan: Hold outpatient meds while admitted. SSI insulin with basal 10 units BID. Can adjust as needed. (3) Presence of bare metal stent in anterior descending branch of left coronary artery: Plan: Continue Plavix and Repatha. Per chart review patient did not tolerate statin therapy. (4) Tobacco use: Plan: Patient may have COPD. Strongly recommend smoking cessation. (5) Alcohol use: Plan: Strongly recommend cessation. (6) Obesity: Plan: There may be a component of OHS/JJ. Consider outpatient sleep study. (7) A-fib: Plan: On Eliquis 2.5 mg BID and metoprolol 75 mg BID (8) Elevated troponin: Plan Chronic pain: continue duloxetine and gabapentin. PDMP reviewed. Will continue tramadol PRN while inpatient to avoid withdrawal BPH: continue tamsulosin GERD: continue pantoprazole On chronic suppressive therapy with doxycycline 100 mg, continue probiotic as well Code status: full DVT ppx: on Eliquis 2.5 mg BID FENGI: HH and carb consistent Dispo: PCU/Tele History of Present Illness Chief Complaint: palpitations Primary Care Provider: Nitish Lam MD 64 y/o male with a PMHx of a fib on Eliquis 2.5 mg BID, CAD s/p FL with PCI and SAE placement, GERD, HLD - statin intolerant, chronic pain, and BPH presents with palpitations, elevated HR, lightheadedness/fatigue. Patient had a short bout of palpitations / that did not last long. Had a few episodes today - throwing the trash over the side of the deck, while moving a vehicle, and then most notably when he got out of the car after moving it. He checked his pulse and it was 199. Patient called his to take him to the hospital. Patient did have a few beers today with a neighbor and is a regular smoker. Patient has a history of a fib, but he has not had a pulse this elevated before. No chest pain at that time. Did have some shortness of breath. In the ED: Patient was found to be in SVT in the 200s. Treated with adenosine 6 mg x 1, 12 mg x 2 - SVT broke. Patient then experienced significant SOB, CP, and diaphoresis, which resolved on its own. Patient was also given dilt 10 mg x 1 and the hospitalist team was consulted for admission. Allergies Allergy/AdvReac Type Severity Reaction Status Date / Time latex Allergy Unknown Rash Verified 07/13/24 14:00 Penicillins Allergy Unknown Rash Verified 07/13/24 14:00 adhesive AdvReac Unknown Rash Verified 07/13/24 14:00 dronedarone AdvReac Unknown Fatigued Verified 07/13/24 14:00 gemfibrozil AdvReac Unknown BODY ACHES Verified 07/13/24 14:00 NSAIDS (Non-Steroidal AdvReac Unknown TOLD NOT Verified 07/13/24 14:00 Anti-Inflamma TO TAKE - HX STOMACH ULCER Dmnobcw-PYZ-McI Reductase AdvReac Unknown body aches Verified 07/13/24 14:00 Inhibitor [Rjcobtz-Ppd-Bzz Reductase Inhibitor] Home Medications Medication Instructions Recorded Confirmed Type acetaminophen 650 mg 650 mg PO Q8H PRN ARTHRITIS PAIN 12/06/20 08/03/24 History tablet,extended release cyanocobalamin (vitamin B-12) 1,000 mcg PO QAM 08/26/22 08/03/24 History 1,000 mcg tablet (Vitamin B-12) clopidogrel 75 mg tablet (Plavix) 75 mg PO QAM 07/18/23 08/03/24 History magnesium oxide 400 mg PO QPM 09/22/23 08/03/24 History lactobacillus comb no.10 20 20,000 mmu cells PO QPM 10/08/23 08/03/24 History billion cell capsule (Probiotic) gabapentin 400 mg capsule 800 mg (2 x 400 mg) PO TID 90 days 02/13/24 08/03/24 Rx #540 caps glimepiride 1 mg tablet 1 mg PO QAM #90 tabs 03/18/24 08/03/24 Rx apixaban 5 mg tablet (Eliquis) 2.5 mg PO BID 04/16/24 08/03/24 History evolocumab 140 mg/mL subcutaneous 140 mg subcut Q14D #6 mL 06/01/24 08/03/24 Rx pen injector (Repatha SureClick) furosemide 20 mg tablet 20 mg PO QAM #90 tabs 06/01/24 08/03/24 Rx pantoprazole 40 mg tablet,delayed 40 mg PO BID #180 tabs 06/11/24 08/03/24 Rx release doxycycline hyclate 100 mg capsule 100 mg PO QAM prevention 06/22/24 08/03/24 History duloxetine 60 mg capsule,delayed 60 mg PO QAM #90 caps 07/08/24 08/03/24 Rx release (Cymbalta) metformin 500 mg tablet,extended 2,000 mg (4 x 500 mg) PO QAM #360 07/08/24 08/03/24 Rx release 24 hr tabs metoprolol succinate 25 mg 75 mg (3 x 25 mg) PO BID #270 tabs 07/08/24 08/03/24 Rx tablet,extended release 24 hr tamsulosin 0.4 mg capsule 0.4 mg PO HS #90 caps 08/02/24 08/03/24 Rx tramadol 50 mg tablet 100 mg (2 x 50 mg) PO BID PRN pain 08/02/24 08/03/24 Rx #120 tabs Past Med/Surg History Problem List (Updated 08/03/24 @ 18:49 by Princess Al MD) A-fib Obesity Alcohol use Tobacco use SVT (supraventricular tachycardia) Statin myopathy Black stool Abdominal pain Abnormal CT scan, lung Iron deficiency anemia FLAHERTY (dyspnea on exertion) (Acute) Symptomatic anemia Infection of prosthetic left knee joint Rotator cuff arthropathy of both shoulders Pulmonary nodule Ventricular tachycardia (paroxysmal) History of total knee arthroplasty (Acute) Peripheral vascular disease (Acute) Stenosis of both vertebral arteries Idiopathic polyneuropathy Stenosis of right internal carotid artery Diabetic neuropathy Nocturia Chronic anemia Statin intolerance Nocturnal hypoxemia Ectopic atrial rhythm Osteoarthritis of right hip Trochanteric bursitis of left hip Presence of bare metal stent in anterior descending branch of left coronary artery Male erectile disorder of organic origin Vitamin D deficiency Medical History Hx of ventricular tachycardia hx - no recent issues per patient - f/u [facility] [place] [facility]iology (Lee Ordonez) History of bleeding ulcers Summer 2023 - treated at [facility] Hx of myocardial infarction Anterolateral FL- 2007, [place], had cardiac cath w/2 stents; hx of seeing [facility] [place] [facility], currently follows with [facility] [place] [facility] (Lee Ordonez) Pulmonary nodule monitoring with [facility] [place] Tadeo Conde. History of atrial fibrillation resolved. Hx of sepsis July 2023 r/t laceration and infection - treated at [facility]. Alcohol abuse Macrocytosis hx - resolved Acute heart failure with preserved ejection fraction resolved - Fall 2023 with severe anemia Atrial tachycardia, paroxysmal pt denies any current issues Postlaminectomy syndrome of lumbar region Peripheral arterial disease Severe occlusive disease S/p L common femoral endarterectomy with bovine patch and lithotripsy of SFA and Popliteal arteries , status post bilateral common iliac artery [employer]ANT [employer] and stents. Hypertension Sleep apnea "Mild to moderate"- unable to tolerate machine. Diabetes mellitus, type 2 NIDDM History of anemia Hx of solitary pulmonary nodule monitoring>no change in size since 2021 BPH (benign prostatic hyperplasia) Nocturia History of cardioversion 01/2021, [facility]; f/u dr. gutierrez (per medical record - pt denies/unaware) Neuropathy History of chronic back pain Neurogenic claudication due to lumbar stenosis History of COVID-19 03/18/2022>resolved 06/28/23 + home test - congestion. Tx with pill. Resolved. No current s/s. History of anxiety Paroxysmal atrial flutter 01/2021- s/p cardoversion- with excessive alcohol intake- felt to be contributing component. No AC. No recurrence per PCP records 07/29/22- - Recurrence in preop area prior to surgery - sent from ACU to ED- admitted to [facility] 07/29/22-07/30/22; f/u dr. gutierrez, asa Bilateral carotid artery stenosis Per 11/2021 Carotid Doppler: 50-69% stenosis of right ICA, less than 50% stenosis of left ICA, greater than 50% stenosis of right ECA Antegrade flow in both vertebral arteries CAD in [place] artery s/p LAD stent x2 () History of gastric ulcer No recent issues Degenerative disc disease GERD (gastroesophageal reflux disease) Well controlled and stable Hyperlipidemia Surgical History History of cardiac cath (2007) x2 cardiac stents History of right-sided carotid endarterectomy REGINA Thompson (12/2023) S/P ablation of atrial flutter 04/09/[facility] [place] of transesophageal echocardiography (GLADYS) for monitoring 01/2021, [facility] History of revision of total knee arthroplasty left knee, with "clean out" per pt; sepsis in left knee in 07/2023, no current issues per pt-finished 6 week abx thru PICC line 09/10/23. Hx of cardiac cath 2007, x2 stents; asa abbasi Presence of neurostimulator 2022 S/P insertion of iliac artery stent 2022, [facility], Dr. Garcia/2 stents. History of endarterectomy Left Femoral Endarterectomy with Bovine Patch 05/08/2022 & right side done 05/28/2023 Hx of cataract extraction rt/lt. History of anesthesia reaction with back surgery in 2004, disoriented, pulled catheter out at [facility] Fusion of spine ~2012, C4-C7, "HAVE 80% OF MOTION" History of lumbar surgery X 3 - 2004, 2006, 2019, [facility] History of total knee replacement right/left (remote history) Hx of transurethral resection of prostate History of esophagogastroduodenoscopy (EGD) History of colonoscopy History of nasal septoplasty History of heart artery stent 2007, x2 stent, [place]; f/u [facility]le Family History Mother Heart disease Diabetes Father Cancer Head and Neck Heart disease Brother Lung cancer Carotid artery stenosis Brother Diabetes Brother Coronary heart disease Sister No problems noted. Other No family history of adverse response to anesthesia Denies family history of Ovarian cancer Prostate cancer Myocardial infarction Breast cancer Colorectal cancer Social History Smoking Status: Current every day smoker Tobacco Type: Cigarettes Age Started Using Tobacco: 18; packs per day: 0.5; Cigarettes Per Day: 10 cigarettes/day; Second Hand Exposure: No; Do You Dip or Chew Tobacco: Yes; Tobacco Cessation Education Requested by Patient: No Hx Alcohol Use: Yes Alcohol type: beer Alcohol type Comment: 6-8 beers Hx Substance Use: No Preferred Language: Ukrainian Communication Ability: Effective Visual Impairment: No 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: No Beliefs That Will Affect Care: None marital status: Current Living Situation: Spouse Current Living Situation Comment: Lives w/ at home current occupational status: retired How many Children do You have: 4 Other Information That Helps Us Care for You: No Feels Safe at Home: Yes Safety Concerns: Feels Safe At This Time Childhood Exposure to Second-Hand Smoke: Yes Diet: regular caffeine: Yes Dental Care, Regularly: Yes Physical Activity Frequency: Does not Exercise Seatbelt Use: always Sunscreen Use: No Assistive Devices: Scooter/Electric Scooter Review of Systems 2 Review of Systems: See HPI Physical Exam 2 Physical Exam: Gen: obese appearing patient in NAD HEENT: AT NC MMM Resp: scattered end expiratory wheezing otherwise clear lung burgos, mildly increased work of breathing likely due to habitus CV: RRR no m/r/g clinically well perfused Abd: soft, non-tender, non-distended MSK: no obvious deformities Skin: no rashes or bruising Neuro: alert and oriented Psych: appropriate mood and affect Results & Data Results & Data Vital Signs (Past 12 Hours) Vital Signs Temp Pulse Pulse Resp BP Pulse Ox O2 Del Method 08/03/24 17:09 85 24 117/64 95 Nasal Cannula 08/03/24 16:50 91 H 34 H 95 Nasal Cannula 08/03/24 16:45 83 34 H 113/64 97 Nasal Cannula 08/03/24 16:44 85 08/03/24 16:41 95 Nasal Cannula 08/03/24 16:30 85 28 H 118/95 94 Nasal Cannula 08/03/24 16:30 118/95 08/03/24 16:30 208 H 31 H 118/95 94 08/03/24 16:29 124/82 08/03/24 16:15 211 H 109/75 08/03/24 16:06 210 H 08/03/24 16:03 211 H 37 H 146/90 H 94 08/03/24 15:56 36.7 C 211 H 20 134/80 94 Room Air O2 Flow Rate 08/03/24 17:09 2 08/03/24 16:50 2 08/03/24 16:45 2 08/03/24 16:44 08/03/24 16:41 2 08/03/24 16:30 2 08/03/24 16:30 08/03/24 16:30 08/03/24 16:29 08/03/24 16:15 08/03/24 16:06 08/03/24 16:03 08/03/24 15:56 Laboratory Results 08/03/24 16:03 08/03/24 16:03 Diagnostic Findings Chest X-Ray 08/03/24 16:41 FINDINGS: Lungs and pleural spaces: No consolidation or pulmonary edema. No pleural effusion or pneumothorax. Heart: Stable large cardiac shadow. Mediastinum: Normal contour. Bones/joints: No fracture, erosion or dislocation. Soft tissues: No abnormality noted. No radiopaque foreign body noted. Tubes, lines and devices: Stable spinal stimulator. Upper abdomen: No abnormality noted. IMPRESSION: No acute cardiopulmonary disease. Supervising Physician Co-Signing Physician Notes Attending addendum: I have physically seen this patient, have supervised the medical residents activities, and agree with the H&P unless as otherwise noted. Assessment and Plan: The patient is a 64-year-old male with a past medical history including atrial fibrillation on Eliquis, CAD status post FL with PCI and SAE placement, GERD, hyperlipidemia statin intolerant, chronic pain syndrome, BPH with LUTS, who presents to the emergency department with palpitations, elevated heart rate, lightheadedness, dizziness and fatigue. He reports symptoms happened a few episodes during the day today, when being physically active such as throwing trash over the side of his deck, while moving a vehicle, then most notably when he got out of the car after moving it. He reports he checked his pulse at that time, and it was 199, at which time his took him to the hospital for assessment. Patient reports he did have a few beers today with a neighbor, and does smoke regularly. In the emergency department, patient was found to be in SVT, with EKG rate of 212. He received doses of adenosine 6 mg IV x 1, and then 12 mg IV x 2, which broke from SVT to sinus rhythm with PACs and PVCs. [facility] with consult to [facility]. [facility], Dr. Shipman was consulted by our service, and agreed that the patient should be started on amiodarone bolus/drip, and admitted to the PCU. #SVT/supraventricular tachycardia/history of atrial fibrillation/CAD/stents- The patient will be admitted to telemetry for serial cardiac enzymes, serial EKG's, cardiac rhythm monitoring and a 2-D echocardiogram with Dopplers. Continue amiodarone bolus/drip per protocol Initial troponin 91.2, with follow-up pending. Will expect troponins to be elevated due to high heart rate Continue clopidogrel, Eliquis, metoprolol succinate. Patient reports being on a lower dose of Eliquis of 2.5 mg twice daily due to history of bleeding on higher dosages Chronic medical conditions: Diabetes mellitus-holding metformin, glimepiride. Patient Accu-Cheks with NovoLog SSI as noted B12 deficiency-continue supplementation Alcohol use-recommend cessation due to likely association with precipitation of today's events Tobacco use-again strongly recommend smoking cessation BPH and LUTS-continue tamsulosin GERD-continue pantoprazole Chronic pain syndrome continue duloxetine and gabapentin Hyperlipidemia on Repatha as outpatient Resident Activity Tracking Resident Involvement: Resident Care Provided Care Provided: Adult Hospital Medicine
[2024-08-03 18:28] LABS: Adenovirus PCR Not Detected (NotDetected); Bordetella parapertussis PCR Not Detected (NotDetected); Bordetella pertussis PCR Not Detected (NotDetected); Chlamydia pneumoniae PCR Not Detected (NotDetected); Coronavirus 229E PCR Not Detected (NotDetected); Coronavirus CoV-2 (COVID19)PCR Not Detected (NotDetected); Coronavirus HKU1 PCR Not Detected (NotDetected); Coronavirus NL63 PCR Not Detected (NotDetected); Coronavirus OC43PCR Not Detected (NotDetected); Human Metapneumovirus PCR Not Detected (NotDetected); Influenza A PCR Not Detected (NotDetected); Influenza B PCR Not Detected (NotDetected); Mycoplasma pneumoniae PCR Not Detected (NotDetected); Parainfluenza Virus 1 PCR Not Detected (NotDetected); Parainfluenza Virus 2 PCR Not Detected (NotDetected); Parainfluenza Virus 3 PCR Not Detected (NotDetected); Parainfluenza Virus 4 PCR Not Detected (NotDetected); Respiratory Syncytial VirusPCR Not Detected (NotDetected); Rhinovirus/Enterovirus PCR Not Detected (NotDetected)
[2024-08-03] MEDS ORDERED: 0.2 MICRON FILTER SET 1 EACH IV STA (18:44)
[2024-08-03] MEDS ORDERED: AMIODARONE IV BOLUS & DRIP IV STA (18:44)
[2024-08-03] MEDS: AMIODARONE / D5W 150 MG/100 ML BAG IV STA (19:05)
[2024-08-03] MEDS: CALCIUM GLUCONATE 1,000 MG/60 ML BAG IV STA (19:06)
[2024-08-03 19:13] LABS: Magnesium 2.1 mg/dl (1.7-2.4)
[2024-08-03] MEDS: AMIODARONE / D5W 360 MG/200 ML BAG IV ONE (19:18)
[2024-08-03 19:24] LABS: Troponin I High Sensitivity 1359.3 pg/ml (0-20)
[2024-08-03 19:31] LABS: Thyroid Stimulating Hormone 0.99 uIu/ml (0.300-4.500)
[2024-08-03] MEDS ORDERED: MAGNESIUM HYDROXIDE SUSP 30 ML UDC PO PRN (20:31)
[2024-08-03] MEDS ORDERED: GLUCOSE 40% GEL 15 GM TUBE PO PRN (20:31)
[2024-08-03] MEDS ORDERED: GLUCAGON FOR INJ 1 MG VIAL SQ PRN (20:31)
[2024-08-03] MEDS ORDERED: ALUMINUM/MAGNESIUM SUSP 30 ML UDC PO PRN (20:31)
[2024-08-03] MEDS ORDERED: GLUCOSE 10 TAB/TUBE PO PRN (20:31)
[2024-08-03] MEDS ORDERED: CARBOHYDRATES FOR HYPOGLYCEMIA PO PRN (20:31)
[2024-08-03] MEDS ORDERED: traMADol HCL 50 MG TABLET PO PRN (20:31)
[2024-08-03] MEDS ORDERED: DEXTROSE 50% 50 ML SYRINGE IV PRN (20:31)
[2024-08-03] MEDS ORDERED: POLYETHYLENE (MIRALAX) 17 GM PACK PO PRN (20:31)
[2024-08-03] MEDS ORDERED: APIXABAN 2.5 MG TAB PO ONE (21:00)
[2024-08-03] MEDS ORDERED: METOPROLOL SUCC 25MG EXT REL TAB PO ONE (21:00)
[2024-08-03] MEDS: PANTOprazole 40 MG TAB PO SCH (21:01)
[2024-08-03] MEDS: METOPROLOL SUCC 25MG EXT REL TAB PO SCH (21:01)
[2024-08-03] MEDS: GABAPENTIN 400 MG CAP PO SCH (21:01)
[2024-08-03] MEDS: TAMSULOSIN HCL 0.4 MG CAP PO SCH (21:01)
[2024-08-03] MEDS: ADVANCED PROBIOTIC 625 MG CAPSULE PO SCH (21:02)
[2024-08-03] MEDS: APIXABAN 2.5 MG TAB PO SCH (21:02)
[2024-08-03] MEDS: INSULIN ASPART PER UNIT CHARGE SC SCH (21:02)
[2024-08-03] MEDS: LANTUS PER UNIT CHARGE SQ SCH (21:02)
[2024-08-03 21:19] LABS: Magnesium 1.9 mg/dl (1.7-2.4)
[2024-08-03 21:28] LABS: Troponin I High Sensitivity 3519.2 pg/ml (0-20)
--- OUTSIDE RECORDS SUMMARY | 2024-08-04 00:02 | External Medical Summary | Summary of Care ---
Author Name Unknown Organization [facility] Address [address] [facility] [place] [address] Phone [phone] Care Team Providers Care Yarn Dyer Name Role Phone Nitish Lam MD Primary Care Provi tamela Reason for Visit * Reason Onset Date Comments Precert In Process 07/20/2024 26-SAE HMRK p raluent Encounter Details Date Type Department Care Team (Late st Contact Info) Description 07/20/2024 Telephone Cardiology, [facility] [address] [place] [address] Lee Banuelos, PA-C [address] [place] [phone] Precert In Process (26-SAE HMRK praluent) Allergies Active Allergy Reactions Criticality Noted Date Comments Adhesive Tape Rash 03/21/2021 Amoxicillin Rash 06/13/2013 Gemfibrozil 03/21/2021 Body aches Latex Rash 03/21/2021 Nsaids 03/21/2021 Advised not to take- h/o gastric ulcer Statins 03/21/2021 Body aches documented as of this encounter (statuses as of 07/21/2024) Medications metFORMIN (GLUCOPHAGE) 500 MG Tablet Take 4 Tablets by mouth daily with breakfast. 1 daily 0 5 Active Ferrous Sulfate (IRON) 142 (45 FE) MG TBCR 1 daily Active Glimepiride 1 MG Oral Tablet (Amaryl) Take 1 Tablet by mouth in the morning. Active Acetaminophen ER 650 MG Oral Tablet Extended Release (Tylenol 8 Hour) Take 2 Tablets by mouth as needed. Active Omeprazole 40 MG Oral Capsule Delayed Release (PriLOSEC) Take 1 Capsule by mouth in the morning. Active Metoprolol Succinate 50 MG Oral Capsule ER 24 Hour Sprinkle Take 75 Capsules by mouth in the morning and 75 Capsules in the evening. Active traMADol HCl 50 MG Oral Tablet (Ultram) Take 1 Tablet by mouth every 6 hours as needed. Active Folic Acid 1 MG Oral Tablet Take 1 Tablet by mouth in the morning. Active Gabapentin 300 MG Oral Capsule (Neurontin) Take 400 mg by mouth in the morning and 400 mg at noon and 400 mg before bedtime. 1 Active Doxycycline Hyclate 100 MG Oral Tablet Delayed Release Take 1 Tablet by mouth in the morning and 1 Tablet before bedtime. Active Tamsulosin HCl 0.4 MG Oral Capsule (Flomax) Take 1 Capsule by mouth in the morning. Active B-12 100-5000 MCG Sublingual Tablet Sublingual Take by mouth daily. Active Repatha SureClick 140 MG/ML Subcutaneous Solution Auto-injector Inject 140 mg under the skin every 14 days. 4 Active Clopidogrel Bisulfate 75 MG Oral Tablet (Plavix) Take 1 Tablet by mouth in the morning. 30 Tablet 6 4 Active Magnesium 400 MG Oral Tablet Take by mouth. Active Probiotic & Acidophilus Ex St Oral Capsule Take 1 Capsule by mouth in the morning and 1 Capsule at noon and 1 Capsule in the evening. Take with meals. Active Furosemide 20 MG Oral Tablet (Lasix) Take 1 Tablet by mouth in the morning. 5 Active Apixaban 5 MG Oral Tablet (Eliquis) Take 0.5 Tablets by mouth in the morning and 0.5 Tablets before bedtime. 5 Active Hospital, Clinic, or Other Facility Administered Medication Ordered Dose Route Frequency Start Date End Date Status Albuterol Sulfate (Proventil) (2.5 MG/3ML) 0.083% inhalation solution 2.5 mgIndications:Dyspnea and respiratory abnormalities 2.5 mg NEBULIZER PRN 05/31/2024 05/31/2025 Active Albuterol Sulfate (Proventil) (5 MG/ML) 0.5% *conc* inhalation solution 2.5 mgIndications:Dyspnea and respiratory abnormalities 2.5 mg NEBULIZER PRN 05/31/2024 05/31/2025 Active documented as of this encounter (statuses as of 07/21/2024) Active Problems Problem Noted Date Diagnosed Date Carotid stenosis, non-symptomatic, bilateral 10/2023 PAD (peripheral artery disease) 12/30/2023 Typical atrial flutter 12/30/2023 Cigarette smoker 12/30/2023 JJ (obstructive sleep apnea) 12/30/2023 Type 2 diabetes mellitus wit h diabetic peripheral angiopathy without gangrene, without long-term current use of insulin 12/30/2023 Dyslipidemia, goal LDL below 70 12/30/2023 Iron deficiency anemia 12/30/2023 Chronic sinusitis 11/18/2005 Overview (08/10/2007): Wan Allergic rhinitis 11/18/2005 Overview (08/10/2007): Wan CAD (coronary artery disease) Overview (01/18/2015): history [place] Osteoarthritis HTN, goal below 130/80 Anxiety documented as of this encounter (statuses as of 07/21/2024) Immunizations Name Administration Dates Next Due Seasonal Influenza, High Dos e, Trivalent, PF, IM (Fluzone HD) 02/26/2024 documented as of this encounter Social History Tobacco Use Types Packs/Day Years Used Date Smoking Tobacco: Every Day Cigarettes 0.5 27.2 Started: 1983; Last attempted to quit: 2003 Smokeless Tobacco: Current Alcohol Use Standard Drinks/Week Comments Yes 0 [...] ages 0-17 years) Not on file 01/21/2024 Transportation Needs Answer Date Record ed Do [...] ages 0-17 years) Not on file 01/21/2024 Food Insecurity Answer Date Recorded Worried About Running Out of Food in the Last Ye ar Not on file 01/21/2024 Ran Out of Food in the Last Year Not on file 01/21/2024 Do you need food for this week? 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 file Not on file No t on file documented as of this encounter Miscellaneous Notes * Telephone Encounter - Shayy Cantrell, JJ - 07/20/2024 11:05 AM EST Marj Castañeda RPh routed conversation to Med Pre Cert - Orals/Self-Injectables2 hours ago (8:51 AM) Marj Castañeda RPh2 hours ago (8:51 AM) Prior-Authorization Request: [employer] Inhibitor- Praluent Medication Information: Medication/Dose/Route/Interval: [employer] Inhibitor Praluent 150 mg Autoinjector, inject 150 mg subcutaneously, every 2 weeks Quantity & Day Supply: # 6 Autoinjectors/Pens for 84-day supply Estimated Duration of Therapy: Indefinite Diagnosis/ICD-10 code: ASCVD- Coronary Artery Disease: I25.10, ASCVD- Carotid Artery Disease: I65.29, and Diabetes Mellitus Type 2: E11.9 Treatment Goals LDL Goal: < 55 mg/dL and Triglyceride Goal: < 150 mg/dL Pre-Treatment Level= 184 mg/dL on Date: 07/19/24 Recertification Request: NO, new start. Currently on Repatha (although has been out of it for several doses), insurance no longer covering and preferring Praluent Results for orders placed or performed in visit on 07/19/24 LIPID PANEL WITH DIRECT LDL IF TG IS HIGH Result Value Ref Range Triglycerides 173 <=174 mg/dL Cholesterol 260 (H) <200 mg/dL HDL Cholesterol 41 >39 mg/dL Non-HDL Cholesterol 219 (H) <=159 mg/dL LDL Cholesterol 184 (H) <=129 mg/dL Relevant Patient History: Pt was on Repatha 140 mg every 2 weeks, however currently not taking as he ran out due to insuranceissue Previously Failed/Intolerant/Contraindicated Antihyperlipidemic Therapies: Atorvastatin Rosuvastatin Thinks he has tried other statins but can't remember the names *myalgia with all statins he tried Cardiology Ordering Provider: Lee Banuelos Last Visit: 06/04/24 @ [facility] cardio clinic Last MTDM Visit: none Please submit requests with most recent provider note from above visit. Please submit to BOTH primary insurance and secondary insurance (ex PACE/PACE NET) if applicable. Route referral message to CARDIOLOGY PHARMACIST [facility] [p [phone]]. documented in this encounter Plan of Treatment Upcoming Encounters Date Type Department Care Team (Late st Contact Info) Description 08/09/2024 10:45 AM EDT Imaging Radiology [facility] 1st [facility] [address] [facility] [place] [phone] 08/09/2024 12:00 PM EDT Office Visit Pulmonary Medicine, [facility] [address] [facility] [place] [address] Michael Mukherjee MD [address] [facility] [place] [address] 08/27/2024 11:00 AM EDT Appointment Vascular Lab [address] [address] 08/27/2024 12:00 PM EDT Appointment Vascular Lab [address] [address] 08/27/2024 12:40 PM EDT Office Visit Vascular Surg [place] [address] [place] [address] Tong Gonzales MD [address] [place], [place] [phone] Health Maintenance Due Date Last Done Comments DISCUSS TOBACCO CESSATION (REFER TO SMARTSET #3812) 1958 HbA1c 1964 Depression Screening 1970 Albumin/Creatinine Ratio 1976 Diabetic Eye Exam 1976 Diabetic Foot Exam 1976 Hepatitis C Screening 1976 DTap/Tdap Vaccines (1 - Tdap) 1977 Pneumococcal Vaccine: 50+ Years (1 of 2 - PCV) 1977 Cologuard 2003 Colonoscopy 2003 Colorectal Cancer Screening 2003 Fecal Occult Blood Test 2003 Sigmoidoscopy 2003 Zoster Vaccines (1 of 2) 2008 COVID-19 Vaccine (1 - season) 2024 GFR 07/19/2025 07/19/2024, 01/24, 01/21/2024, Additional history exists AAA Screening Completed 12/31/2023 Influenza Vaccine (FLU shot) Completed 02/26/2024 HPV (Gardasil) Vaccine Aged Out No lo nger eligible based on patient's age to complete this topic Hepatitis B Vaccine Aged Out No longe r eligible based on patient's age to complete this topic MENINGOCOCCAL (MENACTRA/MENVEO) Aged Out No longer eligible based on patient's age to complete this topic Meningitis B Vaccine (Bexsero/Trumemba) Aged Out No longer eligible based on patient's age to complete this topic documented as of this encounter Medical Devices Implanted Type Area Meat Stuffer Device Identifier Shelf Expiration Date Model / Serial / Lot Lens Intraoc 20.5 - [id number] - [id number] Implanted:Qty: 1 on 03/30/2021 by Jerrell Mtz MD at OR [facility] Left: Eye [employer]CH [employer]OMB 12/23/2025 [id number] / [id number] / [id number] Lens Intraoc 19.5 - [id number] - [id number] Implanted:Qty: 1 on 04/05/2021 by Jerrell Mtz MD at OR [facility] Right: Eye BAUSCH [employer] LOMB 12/23/2025 [id number] / [id number] / [id number] Patch Xenosure [id number] - [id number] Implanted:Qty: 1 on 01/20/2024 by Tong Gonzales MD [facility] [place] [facility] [id number] 07/23/2029 E0.8P8 / [id number] / [id number] documented as of this encounter Advance Directives * Full Code (Latest Code Status on File) Date Activated Date Inactivated Comments 01/20/2024 5:57 PM 01/21/2024 7:59 PM This order r eflects the patients wishes and were consensually agreed upon. Question Answer Comments Discussion of Advance Directives occurred with: Patient Care Teams Yarn Dyer Relationship Specialty Start Date End Date Nitish Lam MD [address] [place] [address] [place] [id number] PCP - General Internal Medicine 11/03/14 documented as of this encounter
--- OUTSIDE RECORDS SUMMARY | 2024-08-04 00:02 | External Medical Summary | Summary of Care ---
Author Name Unknown Organization [facility] Address [address] [facility] [place] [address] Phone [phone] Care Team Providers Care Computing Machine Operator Name Role Phone Nitish Lam MD Primary Care Provi tamela Reason for Visit * Reason Onset Date Comments Precert Approved 07/20/2024 praluent Encounter Details Date Type Department Care Team (Late st Contact Info) Description 07/20/2024 Telephone Cardiology, [facility] [address] [place] [address] Lee Banuelos, PAQuincyC [address] [place] [address] Precert Approved ( praluent) Allergies Active Allergy Reactions Criticality Noted [...] anemia 12/30/2023 Chronic sinusitis 11/18/2005 Overview (08/10/2007): aWn Allergic rhinitis 11/18/2005 Overview (08/10/2007): Wan CAD (coronary artery disease) Overview (01/18/2015): history [place] Osteoarthritis HTN, goal below 130/80 Anxiety documented [...] Job Start Date Job End Date 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 Please submit to BOTH primary insurance and secondary insurance (ex PACE/PACE NET) if applicable. Route referral message to CARDIOLOGY PHARMACIST [place] [p [phone]]. documented in this encounter Plan of Treatment Upcoming Encounters Date Type Department Care Team (Late st Contact Info) Description 08/09/2024 10:45 AM EDT Imaging Rad[facility] [place] [phone] 08/09/2024 12:00 PM EDT Office Visit Pulmonary Medicine, [facility] [address] [facility] [place] [address] Michael Mukherjee MD [address] [facility] [place] [address] 08/27/2024 11:00 AM EDT Appointment Vascular Lab [address] [address] 08/27/2024 12:00 PM EDT Appointment Vascular Lab [place] [address] [place] [address] 08/27/2024 12:40 PM EDT Office Visit Vascular Surg [facility], [place] [address] [place] [address] Tong Gonzales MD [address], [place] [phone] Health Maintenance Due Date Last Done Comments DISCUSS TOBACCO CESSATION (REFER TO SMARTSET #6658) 1958 HbA1c 1964 Depression Screening 1970 Albumin/Creatinine [...] this encounter Medical Devices Implanted Type Area Jewelry Jobber Device Identifier Shelf Expiration Date Model / Serial / Lot Lens Intraoc 20.5 - [id number] - [id number] Implanted:Qty: 1 on 03/30/2021 by Jerrell Mtz MD at OR [facility] Left: Eye BAUSCH [employer] LOMB 12/23/2025 [id number] / [id number] / [id number] Lens Intraoc 19.5 - [id number] - [id number] Implanted:Qty: 1 on 04/05/2021 by Jerrell Mtz MD at OR [facility] Right: Eye BAUSCH [employer] LOMB 12/23/2025 [id number] / [id number] / [id number] Patch Xenosure [id number] - [id number] Implanted:Qty: 1 on 01/20/2024 by Tong Gonzales MD at [place] [facility] [employer] [id number] 07/23/2029 E0.8P8 / [id number] / [id number] documented as of this encounter Advance Directives * Full Code (Latest Code Status on File) Date Activated Date Inactivated Comments 01/20/2024 5:57 PM 01/21/2024 7:59 PM This order r eflects the patients wishes and were consensually agreed upon. Question Answer Comments Discussion of Advance Directives occurred with: Patient Care Teams Computing Machine Operator Relationship Specialty Start Date End Date Nitish Lam MD [address] [place] [address] [place] [address] PCP - General Internal Medicine 11/03/14 documented as of this encounter
--- OUTSIDE RECORDS SUMMARY | 2024-08-04 00:03 | External Medical Summary ---
Author Name Unknown Address Unknown Organization K[facility] [place] [address] Laboratory Report Ordering Provider Test Date Status RENATA SALINAS 07/19/2024 08:06:15 Final Observation Date Value Abnormality Reference (Units ) Status WBC, Total 07/19/2024 08:06:15 6.55 4.00-10.8 0 (K/uL) Final RBC 07/19/2024 08:06:15 3.43 4.50-5.25 (M/uL) Final Hemoglobin 07/19/2024 08:06:15 12.4 Below low normal 14 .0-16.8 (g/dL) Final HCT 07/19/2024 08:06:15 38.1 Below low normal 40. 0-48.4 (%) Final MCV 07/19/2024 08:06:15 111.1 82.0-99.5 (fL) Final MCH 07/19/2024 08:06:15 36.2 27.0-34.0 (pg) Final MCHC 07/19/2024 08:06:15 32.5 32.0-36.0 (g/dL) Final RDW 07/19/2024 08:06:15 16.8 11.5-15.5 (%) Final Platelets 07/19/2024 08:06:15 288 140-400 (K /uL) Final MPV 07/19/2024 08:06:15 11.4 6.6-11.1 ( fL) Final Performing Location [facility] [address] - [address] [place] [address]
--- OUTSIDE RECORDS SUMMARY | 2024-08-04 00:03 | External Medical Summary | Summary of Care ---
Author Name Unknown Organization [facility] Address [address] [place] [place] [address] Phone [phone] Care Team Providers Care Transit Clerk Name Role Phone Nitish Lam MD [facility] Reason for Visit * Reason Comments Outpatient Testing Encounter Details Date Type Department Care Team (Late st Contact Info) Description 07/19/2024 8:00 AM EST Laboratory Laboratory, [facility] [address] [place] [phone] [facility] [address] [place] [address] [employer] Other*[id number]; Other iron deficiency anemia; HTN, goal below 130/80; Hypomagnesemia; Dyslipidemia, goal LDL below 70 Allergies Active Allergy Reactions Criticality Noted Date Comments Adhesive Tape Rash 03/21/2021 Amoxicillin Rash 06/13/2013 Gemfibrozil 03/21/2021 Body aches Latex Rash 03/21/2021 Nsaids 03/21/2021 Advised not to take- h/o gastric ulcer Statins 03/21/2021 Body aches documented as of this encounter (statuses as of 07/19/2024) Medications metFORMIN (GLUCOPHAGE) 500 MG Tablet Take [...] as of this encounter (statuses as of 07/19/2024) Active Problems Problem Noted Date Diagnosed Date [...] CAD (coronary artery disease) Overview (01/18/2015): history [place] Osteoarthritis HTN, goal below 130/80 Anxiety documented as of this encounter (statuses as of 07/19/2024) Immunizations Name Administration Dates Next Due Seasonal Influenza, High Dos e, Trivalent, PF, IM (Fluzone HD) 02/26/2024 documented as of this encounter Social History Tobacco Use Types Packs/Day Years Used Date Smoking Tobacco: Every Day Cigarettes 0.5 27.1 Started: 1983; Last attempted to quit: 2003 [...] Job 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 Date Job 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 Date 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 file No t on file documented as of this encounter Plan of Treatment Upcoming Encounters Date Type Department Care Team (Late st Contact Info) Description 08/09/2024 10:45 AM EDT Imaging Radiology [facility] 1st [facility], [place] [address] [place] [phone] 08/27/2024 11:00 AM EDT Appointment Vascular Lab [place] [address] [place] [address] 08/27/2024 12:00 PM EDT Appointment Vascular Lab [place] [address] [place] [address] 08/27/2024 12:40 PM EDT Office Visit Vascular Surg [place] [address] [place] [address] Tong Gonzales MD [address] [place] [address] Pending Results Name Type Priority Associated Diagnoses Date /Time MYCODE SUBSEQUENT ADULT Lab Routine MyCode Research Other*[id number] 07/19/2024 8:06 AM EST BASIC METABOLIC PANEL Lab Routine Other iron deficiency anemia HTN, goal below 130/80 Hypomagnesemia 07/19/2024 8:06 AM EST MAGNESIUM Lab Routine Other iron deficiency anemia HTN, goal below 130/80 Hypomagnesemia 07/19/2024 8:06 AM EST LIPID PANEL WITH DIRECT LDL IF TG IS HIGH Lab Routine Dyslipidemia, goal LDL below 70 07/19/2024 8:06 AM EST MYCODE SST1 Lab Routine [employer] Other*[id number] 07/19/2024 8:06 AM EST MYCODE SST2 Lab Routine My[employer] Other*[id number] 07/19/2024 8:06 AM EST Health Maintenance Due Date Last Done Comments DISCUSS TOBACCO CESSATION (REFER TO SMARTSET #7933) 1958 HbA1c 1964 Depression Screening 1970 Albumin/Creatinine Ratio 1976 Diabetic Eye Exam 1976 Diabetic Foot Exam 1976 Hepatitis C Screening 1976 DTap/Tdap Vaccines (1 - Tdap) 1977 Pneumococcal Vaccine: 50+ Years (1 of 2 - PCV) 1977 Cologuard 2003 Colonoscopy 2003 Colorectal Cancer Screening 2003 Fecal Occult Blood Test 2003 Sigmoidoscopy 2003 Zoster Vaccines (1 of 2) 2008 COVID-19 Vaccine ( - 2023- season) 2024 GFR 02/09/2025 02/10/2024, 12/25, 01/20/2024, [...] this encounter Medical Devices Implanted Type Area Covering Machine Tender Device Identifier Shelf Expiration Date Model / Serial / Lot Lens Intraoc 20.5 - [id number] - [id number] Implanted:Qty: 1 on 03/30/2021 by Jerrell Mtz MD at OR [facility] Left: Eye BAUSCH [employer] LOMB 12/23/2025 [id number] / [id number] / [id number] Lens Intraoc 19.5 - [id number] - [id number] Implanted:Qty: 1 on 04/05/2021 by Jerrell Mtz MD at OR [facility] Right: Eye BAUSCH & LOMB 12/23/2025 [id number] / [id number] / [id number] Patch Xenosure [id number] - [id number] Implanted:Qty: 1 on 01/20/2024 by Tong Gonzales MD at OR [facility] [id number] 07/23/2029 E0.8P8 / [id number] / [id number] documented as of this encounter Procedures Procedure Name Priority Date/Time Associated Diagnosis Comments CBC Routine 07/19/2024 8:06 AM EST Other iron deficiency anemia HTN, goal below 130/80 Hypomagnesemia documented in this encounter Results * (ABNORMAL) CBC (07/19/2024 8:06 AM EST) WBC 6.55 4.00 - 10.80 K/uL 07/19/2024 8:40 AM EST [facility] [place] [facility] [facility]10 RBC 3.43 4.50 - 5.25 M/uL 07/19/2024 8:40 AM EST [facility] [place] [facility] 57-10 HGB 12.4(L) 14.0 - 16.8 g/dL 07/19/2024 8:40 AM EST [facility] [place] [facility] 57[facility]10 HCT 38.1(L) 40.0 - 48.4 % 07/19/2024 8:40 AM EST [facility]10 MCV 111.1 82.0 - 99.5 fL 07/19/2024 8:40 AM EST [facility] [place] [facility] [facility] MCH 36.2 27.0 - 34.0 pg 07/19/2024 8:40 AM EST [facility] [place] [facility]10 MCHC 32.5 32.0 - 36.0 g/dL 07/19/2024 8:40 AM EST [facility] [place] [facility]10 RDW 16.8 11.5 - 15.5 % 07/19/2024 8:40 AM EST [facility] [place] [facility]10 PLT 288 140 - 400 K/uL 07/19/2024 8:40 AM EST [facility] [place] [facility] MPV 11.4 6.6 - 11.1 fL 07/19/2024 8:40 AM EST [facility] [place] [facility] [facility]10 Blood Venous blood specimen / Unknown Venipuncture / Unknown 07/19/2024 8:06 AM EST 07/19/2024 8:06 AM EST Lee Banuelos PA-C LAB BLOOD ORDERABLES Final Result [facility] [facility] [place] [address] documented in this encounter Visit Diagnoses Diagnosis MyCode Research Other*[id number] Other iron deficiency anemia HTN, goal below 130/80 Unspecified essential hypertension Hypomagnesemia Disorders of magnesium metabolism Dyslipidemia, goal LDL below 70 Other and unspecified hyperlipidemia documented in this encounter Advance Directives * Full Code (Latest Code Status on File) Date Activated Date Inactivated Comments 01/20/2024 5:57 PM 01/21/2024 7:59 PM This order r eflects the patients wishes and were consensually agreed upon. Question Answer Comments Discussion of Advance Directives occurred with: Patient Care Teams Transit Clerk Relationship Specialty Start Date End Date Nitish Lam MD [address] [place] [address] [place] [address] PCP - General Internal Medicine 11/03/14 documented as of this encounter
--- OUTSIDE RECORDS SUMMARY | 2024-08-04 00:03 | External Medical Summary | Summary of Care ---
Author Name Unknown Organization [facility] Address [address] [facility] [place] [address] Phone [phone] Care Team Providers Care Assistant To The Ceo Name Role Phone Nitish Lam MD Primary Care Provi tamela Reason for Visit * Reason Onset Date Comments Pre Cert/Prior Auth 07/20/2024 praluent Encounter Details Date Type Department Care Team (Late st Contact Info) Description 07/20/2024 Telephone Cardiology, [facility] [place] [address] [place] [address] Lee Banuelos PA-C [address] [place] [address] Pre Cert/Prior Auth (praluent) Allergies Active Allergy Reactions Criticality Noted Date Comments Adhesive Tape Rash 03/21/2021 Amoxicillin Rash 06/13/2013 Gemfibrozil 03/21/2021 Body aches Latex Rash 03/21/2021 Nsaids 03/21/2021 Advised not to take- h/o gastric ulcer Statins 03/21/2021 Body aches documented as of this encounter (statuses as of 07/20/2024) Medications metFORMIN (GLUCOPHAGE) 500 MG Tablet Take [...] as of this encounter (statuses as of 07/20/2024) Active Problems Problem Noted Date Diagnosed Date [...] CAD (coronary artery disease) Overview (01/18/2015): history [place] Osteoarthritis HTN, goal below 130/80 Anxiety documented as of this encounter (statuses as of 07/20/2024) Immunizations Name Administration Dates Next Due Seasonal [...] Industry 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 Please submit to BOTH primary insurance and secondary insurance (ex PACE/PACE NET) if applicable. Route referral message to [facility] [place] [p [phone]]. documented in this encounter Plan of Treatment Upcoming Encounters Date Type Department Care Team (Late st Contact Info) Description 08/09/2024 10:45 AM EDT Imaging Rad[facility] [address] [place] [phone] 08/09/2024 12:00 PM EDT Office Visit Pulmonary Medicine, [facility] [place] [address] [facility] [place] [address] Michael Mukherjee MD [address] [place] [facility] [place] [address] 08/27/2024 11:00 AM EDT Appointment Vascular Lab [place] [address] [place] [address] 08/27/2024 12:00 PM EDT Appointment Vascular Lab [place] [address] [place] [address] 08/27/2024 12:40 PM EDT Office Visit Vascular Surg [facility] [address] [place] [address] Tong Gonzales MD [address] [place] [address] Health Maintenance Due Date Last Done Comments DISCUSS TOBACCO CESSATION (REFER TO SMARTSET #4528) 1958 HbA1c 1964 Depression Screening 1970 Albumin/Creatinine [...] this encounter Medical Devices Implanted Type Area Hooker Machine Tender Device Identifier Shelf Expiration Date Model / Serial / Lot Lens Intraoc 20.5 - [id number] - [id number] Implanted:Qty: 1 on 03/30/2021 by Jerrell Mtz MD at OR [facility] Left: Eye [employer] 12/23/2025 [id number] / [id number] / [id number] Lens Intraoc 19.5 - [id number] - [id number] Implanted:Qty: 1 on 04/05/2021 by Jerrell Mtz MD at OR [facility] Right: Eye [employer] 12/23/2025 [id number] / [id number] / [id number] Patch Xenosure [id number] - [id number] Implanted:Qty: 1 on 01/20/2024 by Tong Gonzales MD at OR [facility] [place] [employer] [id number] 07/23/2029 E0.8P8 / [id number] / [id number] documented as of this encounter Advance Directives * Full Code (Latest Code Status on File) Date Activated Date Inactivated Comments 01/20/2024 5:57 PM 01/21/2024 7:59 PM This order r eflects the patients wishes and were consensually agreed upon. Question Answer Comments Discussion of Advance Directives occurred with: Patient Care Teams Assistant To The Ceo Relationship Specialty Start Date End Date Nitish Lam MD [address] [place] [address] [place] [address] PCP - General Internal Medicine 11/03/14 documented as of this encounter
--- OUTSIDE RECORDS SUMMARY | 2024-08-04 00:03 | External Medical Summary ---
Author Name Unknown Address Unknown Organization [id number]:[facility] [place] [address] [facility] [place] [address] Laboratory Report Ordering Provider Test Date Status WILFREDO MILES 07/19/2024 08:06:15 Final Observation Date Value Abnormality Reference (Units ) Status Triglyceride 07/19/2024 08:06:15 173 <=174 ( mg/dL) Final Triglyceride Reference Range s (mg/dL):
<150 Acceptable
150-174 Borderline high
175-499 High
>=500 Very high Cholesterol 07/19/2024 08:06:15 260 Above high normal <200 (mg/dL) Final Total Cholesterol Reference Ranges (mg/dL):
<200 Desirable
200-239 Borderline high
>=240 High HDL 07/19/2024 08:06:15 41 >39 (mg/dL ) Final HDL Cholesterol Reference Ra nges (mg/dL):
>=60 High (Desirable)
<50 Low (Undesirable) For Females
<40 Low (Undesirable) For Males NON-HDL CHOLESTEROL 07/19/2024 08:06:15 219 Above high normal <=159 (mg/dL) Final Non-HDL Cholesterol Referenc e Range (mg/dL):
<100 Target level for high risk ASCVD patient
<130 Optimal for general population
130-159 Near optimal for general population
160-189 Borderline High
190-219 High
>=220 Very High LDL, (calculated) 07/19/2024 08:06:15 184 Above high n ormal <=129 (mg/dL) Final LDL Cholesterol Reference Ra nges (mg/dL):
<70 Target level for high risk ASCVD patient
<100 Optimal for general population
100-129 Near optimal for general population
130-159 Borderline high
160-189 High
>=190 Very high Performing Location [facility] [place] [address] [facility] [address]
--- OUTSIDE RECORDS SUMMARY | 2024-08-04 00:03 | External Medical Summary ---
Author Name Unknown Address Unknown Organization K01:[facility] - [address] [place] [address] Laboratory Report Ordering Provider Test Date Status DALIA SALINASO 07/19/2024 08:06:15 Final Observation Date Value Abnormality Reference (Units ) Status Magnesium 07/19/2024 08:06:15 2.0 1.5-2.6 (m g/dL) Final Performing Location [facility] - [address] [place] [address]
--- OUTSIDE RECORDS SUMMARY | 2024-08-04 00:03 | External Medical Summary ---
Author Name Unknown Address Unknown Organization K01:[facility]ATORY [facility] [place] - [address] [place] [address] Laboratory Report Ordering Provider Test Date Status ANTONY MORENO 07/19/2024 08:06:15 Final Observation Date Value Abnormality Reference (Units ) Status MYCODE SPECIMEN-SST 07/19/2024 08:06:15 Freezing of extracted DNA, whole blood and/or serum. Final Performing Location LABORATORY C - [address] [place] [address]
--- OUTSIDE RECORDS SUMMARY | 2024-08-04 00:03 | External Medical Summary ---
Author Name Unknown Address Unknown Organization K01:LABORATORY [facility] [place] - [address] [place] [address] Laboratory Report Ordering Provider Test Date Status ANTONY MORENO 07/19/2024 08:06:15 Final Observation Date Value Abnormality Reference (Units ) Status MYCODE SPECIMEN-SST 07/19/2024 08:06:15 Freezing of extracted DNA, whole blood and/or serum. Final Performing Location LABORATORY C - [address] [place] [address]
--- OUTSIDE RECORDS SUMMARY | 2024-08-04 00:03 | External Medical Summary ---
Author Name Unknown Address Unknown Organization K0G:LAB[facility]ATORY [facility] - [address] [place] [address] Laboratory Report Ordering Provider Test Date Status RENATA SALINAS 07/19/2024 08:06:15 Final Observation Date Value Abnormality Reference (Units ) Status BUN 07/19/2024 08:06:15 15 6-20 (mg/dL) Final Creatinine 07/19/2024 08:06:15 0.9 0.6-1.2 (mg/dL) Final Glomerular filtration rate/1.73 sq M.predicted [Volume Rate/Area] in Serum, Plasma or Blood by Creatinine-based formula (CKD-EPI) 07/19/2024 08:06:15 >90 >=60 (mL/min) Final eGFR is calculated based on the CKD-EPI 2020 equation. Sodium 07/19/2024 08:06:15 139 135-146 (m mol/L) Final Potassium 07/19/2024 08:06:15 4.7 3.5-5.1 (m mol/L) Final Cl 07/19/2024 08:06:15 99 98-107 (mm ol/L) Final CO2 07/19/2024 08:06:15 29 22-32 (mmo l/L) Final Anion gap 07/19/2024 08:06:15 11 7-15 (mmol /L) Final Glucose 07/19/2024 08:06:15 172 Above high normal 70 -120 (mg/dL) Final Calcium 07/19/2024 08:06:15 10.1 8.4-10.2 ( mg/dL) Final Performing Location [facility] - [address] [place] [address]
--- OUTSIDE RECORDS SUMMARY | 2024-08-04 00:03 | External Medical Summary | Summary of Care ---
Author Name Unknown Organization [facility] Address [address] [facility] [place] [address] Phone [phone] Care Team Providers Care Die Repair Name Role Phone Nitish Lam MD Primary Care Provi tamela Reason for Visit * Reason Onset Date Comments Test Results 07/20/2024 Encounter Details Date Type Department Care Team (Late st Contact Info) Description 07/20/2024 Telephone Cardiology, [facility] [address] [place] [address] Lee Banuelos PA-C [address] [facility] [place] [address] Test Results Allergies Active Allergy Reactions Criticality Noted Date [...] CAD (coronary artery disease) Overview (01/18/2015): history [place] Osteoarthritis HTN, goal below 130/80 Anxiety documented [...] Start Date Job 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 ----- Message from Lee Banuelos sent at 07/20/2024 4:25 PM EST ----- OK/stable. documented in this encounter Plan of Treatment Upcoming Encounters Date Type Department Care Team (Late st Contact Info) Description 08/09/2024 10:45 AM EDT Imaging Radiology [facility] [address]st [address] [phone] 08/09/2024 12:00 PM EDT Office Visit Pulmonary Medicine, [address] [address] [facility] [address] [facility] [address] 08/27/2024 11:00 AM EDT Appointment Vascular Lab [address] [address] 08/27/2024 12:00 PM EDT Appointment Vascular Lab [facility], [address] [address] 08/27/2024 12:40 PM EDT Office Visit Vascular Surg [facility], [address] [address] Tong Gonzales MD [address] [place] [address] Health Maintenance Due Date Last Done Comments DISCUSS TOBACCO CESSATION (REFER TO SMARTSET #8374) 1958 HbA1c 1964 Depression Screening 1970 Albumin/Creatinine Ratio 1976 Diabetic Eye Exam 1976 Diabetic Foot Exam 1976 Hepatitis C Screening 1976 DTap/Tdap Vaccines (1 - Tdap) 1977 Pneumococcal Vaccine: 50+ Years (1 of 2 - PCV) 1977 Cologuard 2003 Colonoscopy 2003 Colorectal Cancer Screening 2003 Fecal Occult Blood Test 2003 Sigmoidoscopy 2003 Zoster Vaccines (1 of 2) 2008 COVID-19 Vaccine ( - season) 2024 GFR 07/19/2025 07/19/2024, 01/24, [...] this encounter Medical Devices Implanted Type Area Distribution Systems Serviceperson Device Identifier Shelf Expiration Date Model / Serial / Lot Lens Intraoc 20.5 - [id number] - [id number] Implanted:Qty: 1 on 03/30/2021 by Jerrell Mtz MD at OR [facility] Left: Eye [employer] 12/23/2025 [id number] / [id number] / [id number] Lens Intraoc 19.5 - [id number] - [id number] Implanted:Qty: 1 on 04/05/2021 by Jerrell Mtz MD at OR [facility] Right: Eye [employer] 12/23/2025 [id number] / [id number] / [id number] Patch Xenosure [id number] - [id number] Implanted:Qty: 1 on 01/20/2024 by Tong Gonzales MD at [facility] [employer] [id number] 07/23/2029 E0.8P8 / [id number] / [id number] documented as of this encounter Advance Directives * Full Code (Latest Code Status on File) Date Activated Date Inactivated Comments 01/20/2024 5:57 PM 01/21/2024 7:59 PM This order r eflects the patients wishes and were consensually agreed upon. Question Answer Comments Discussion of Advance Directives occurred with: Patient Care Teams Die Repair Relationship Specialty Start Date End Date Nitish Lam MD [address] [facility] [place] [address] PCP - General Internal Medicine 11/03/14 documented as of this encounter
[2024-08-04] MEDS: AMIODARONE / D5W 360 MG/200 ML BAG IV SCH (01:09)
[2024-08-04 02:31] LABS: Basophils # (auto) 0.08 K/uL (0.00-0.20); Basophils % (auto) 1.3 %; Eosinophils # (auto) 0.13 K/uL (0.00-0.50); Eosinophils % (auto) 2.2 %; Hematocrit (blood only) 31.3 % (42.0-52.0); Hemoglobin 10.2 g/dl (14.0-18.0); Immature Granulocytes # (auto) 0.15 K/uL (0.01-0.20); Immature Granulocytes % (auto) 2.5 %; Lymphocytes # (auto) 1.23 K/uL (1.20-3.40); Lymphocytes % (auto) 20.5 %; Mean Corpuscular Hemoglobin 35.3 pg (25.0-34.0); Mean Corpuscular Hgb Conc 32.6 g/dL (32.0-36.0); Mean Corpuscular Volume 108.3 fL (80.0-100.0); Mean Platelet Volume 10.7 fL (9.4-12.4); Monocytes % (auto) 11.6 %; Neutrophils # (auto) 3.72 K/uL (1.40-6.50); Neutrophils % (auto) 61.9 %; Platelet Count 278 K/uL (130-400); RDW Coefficient of Variation 15.9 % (11.5-14.5); RDW Standard Deviation 63.7 fL (36.4-46.3); Red Blood Count 2.89 M/uL (4.70-6.10); White Blood Count 6.01 K/ul (4.8-10.8)
[2024-08-04 02:53] LABS: Albumin Level 3.3 gm/dl (3.4-5.0); BUN Creatinine Ratio 12.9 (10-20); Bilirubin,Total 0.2 mg/dl (0.2-1.0); Calcium 8.9 mg/dl (8.6-10.3); Chol HDL Ratio 4.5 (0-5); Creatinine Clr Calc Pharmacy 130.6 ml/min; Globulin 3.3 gm/dl (2.5-4.0); Potassium 4.2 mmol/L (3.5-5.1); Total Protein 6.6 gm/dl (6.0-8.3)
--- NOTE | 2024-08-04 05:53 | Billing Data ---
Date of Service August 04, 2024 Coding Level of Care Code 40250 INT INP/OBS CARE
[2024-08-04 08:32] LABS: Estimated Average Glucose 157 mg/dl; Hemoglobin A1C 7.1 % (4.5-5.6)
[2024-08-04] MEDS: DOXYCYCLINE HYCLATE 100 MG CAP PO SCH (08:32)
[2024-08-04] MEDS: DULoxetine HCL 60 MG CAP PO SCH (08:34)
[2024-08-04] MEDS: FUROSEMIDE 20 MG TAB PO SCH (08:35)
[2024-08-04] MEDS: CLOPIDOGREL BISULFATE 75 MG TAB PO SCH (08:35)
--- NOTE | 2024-08-04 09:26 | Hospitalist Progress Note ---
Date of Service August 04, 2024 Assessment & Plan (1) SVT (supraventricular tachycardia): Plan: Patient on 2.5 mg BID Eliquis due to bleeding. Continue metoprolol succinate 75 mg BID and furosemide 20 mg daily. Electrolytes optimized - Given Mg 1g x 2, K 40 mg PO x 2, and 1 g calcium gluconate. cards consult - pending Con't amio gtt for now (2) Diabetes mellitus, type 2: Plan: Hold outpatient meds while admitted. SSI insulin with basal 10 units BID. Can adjust as needed. (3) Presence of bare metal stent in anterior descending branch of left coronary artery: Plan: Continue Plavix and Repatha. Per chart review patient did not tolerate statin therapy. (4) Tobacco use: Plan: Patient may have COPD. Strongly recommend smoking cessation. (5) Alcohol use: Plan: Strongly recommend cessation. (6) Obesity: Plan: There may be a component of OHS/JJ. Consider outpatient sleep study. (7) A-fib: Plan: On Eliquis 2.5 mg BID and metoprolol 75 mg BID (8) Elevated troponin: Plan: -likely rate related -trending down Plan Code status: full DVT ppx: on Eliquis 2.5 mg BID FENGI: HH and carb consistent Dispo: PCU/Tele Admission and Anticipated Discharge Date Admission Date: August 03, 2024 Subjective No events overnight. Pt resting comfortably in bed. Review of Systems Review of Systems: CONST: Negative for fever, body aches and chills. HENT: Negative for neck pain/stiffness, headache, congestion, sore throat, swelling. EYES: Negative for discharge/pain or vision changes. RESP: Negative for cough/hemoptysis and shortness of breath. CV: Negative chest pain, difficulty breathing, palpitations. ABD: Negative pain, nausea, vomiting. : Negative increase frequency, dysuria, blood in urine or stool. MUSC: Negative for muscle aches, edema. SKIN: Negative rash, lesions/sores. NEURO: Negative headache, dizziness, weakness. Physical Exam Physical Exam: GENERAL APPEARANCE NAD, activity normal for age, well developed/ well nourished, no cyanosis, pallor, or diaphoresis. EYES lids/conjunctiva normal. EARS/NOSE/THROAT Mucous membranes moist, nares normal, lips/teeth normal uvula midline without oral pharyngeal erythema, exudate or swelling TMs normal bilaterally. No lymphangitis/lymphedema. HEAD/NECK normocephalic atraumatic, no facial trauma, neck is supple. RESPIRATORY respiratory effort normal, speaks in full sentences, no tripod position, no accessory muscle use. Lungs clear to auscultation without rhonchi, wheezes, rales CARDIAC Regular rate and rhythm, no edema. ABDOMINAL Soft, ND/NT. No evidence of fluid wave. No pulsatile masses on exam, rebound tenderness, De La Cruz sign or pain over Mcburney's point. MUSCLES/EXTREMITIES No abnormal range of motion, no swelling. SKIN Warm, pink and dry. No rashes, dermatoses, petechiae or lesions. NEUROLOGICAL Speech is clear and appropriate. Normal level of consciousness. Gait and coordination are normal. 5/5 strength in all extremities. PSYCH Normal mood and affect. Judgement/competence is appropriate Results & Data Results & Data Vital Signs (Past 12 Hours) Vital Signs Temp Pulse Pulse Resp BP Pulse Ox O2 Del Method 08/04/24 08:00 67 08/04/24 07:33 36.7 C 74 18 125/72 92 Room Air 08/04/24 02:21 36.8 C 72 18 123/70 93 Room Air 08/03/24 22:34 37.2 C 79 18 135/70 94 Room Air 08/03/24 21:47 80 PG Care Time/CCT Total # of Minutes Spent Total Time Spent with Patient: Total time spent is greater than 50% in coordination of care (as documented) at patient's floor/unit and/or counseling patient: Coding Level of Care Code 20993 SUB INP/OBS CARE 2/35MIN Diagnoses SVT (supraventricular tachycardia) I47.10 Diabetes mellitus, type 2 E11.9 Presence of bare metal stent in anterior descending branch of left coronary artery Z95.5 Tobacco use Z72.0 Alcohol use F10.90 Obesity E66.9 A-fib I48.91 Elevated troponin R77.8
[2024-08-04] MEDS ORDERED: LORazepam 2 MG/1 ML VIAL IV PRN (09:37)
--- NOTE | 2024-08-04 11:50 | Cardiology Consultation ---
Date of Consultation August 04, 2024 Assessment & Plan (1) SVT (supraventricular tachycardia): (2) ASCVD (arteriosclerotic cardiovascular disease): (3) Tobacco use: (4) Alcohol use: (5) Aortic valve stenosis: Plan Complex 64-year-old male admitted with symptomatic supraventricular tachycardia nonresponsive to adenosine, concerning for possible atrial flutter with 1:1 conduction (history of ? partially successful atrial flutter ablation in 2022); supply-demand ischemia with peak high sensitivity troponin of 3,853.5 pg/mL. Resting echocardiography with preserved LV systolic function, EF 50 to 55% without regional wall motion abnormality. Moderate concentric LVH noted along with mild to moderate aortic valve stenosis. Recommendations: * Continue IV amiodarone with transition to oral. * Continue metoprolol succinate * Maintain normokalemia and normomagnesemia. * Continue telemetry at least overnight * Outpatient Electrophysiology Referral. * Alcohol withdrawn prophylaxis/treatment as per Hospitalist. Supervising Physician Co-Signing Physician Notes Patient was seen and personally examined, records reviewed. Full assessment and plan as outlined by advanced provider as above. Care and management discussed and personally endorsed Patient is a 64-year-old male with known atrial arrhythmias with prior flutter ablation "partial" March 2023, atherosclerotic coronary disease chronic left anterior descending occlusion, atherosclerotic carotid disease hypertension, diabetes mellitus. Patient presented with chest pain and very rapid narrow complex tachycardia with spontaneous conversion to sinus rhythm. Records reviewed findings likely reflect atrial flutter with very rapid response, one-to-one conduction with rates greater than 220 bpm. Begun on IV amiodarone. Troponins elevated likely secondary to demand ischemia Continue IV amiodarone till bag complete then begin transition to oral amiodarone. Would maintain telemetry at least additional 24 to 48 hours depen ding on EKG response to antiarrhythmic therapy. Continue metoprolol succinate Will warrant repeat evaluation by electrophysiology given rapid rate conduction History of Present Illness Reason for Consultation: SVT Requesting Physician: Dr. Princess Al Attending Physician: Dr. Jabari Arellano MD History of Present Illness Mr. Jackson Becker is a 64-year-old male referred for evaluation of SVT. Patient describes being in his usual state of health until the day before yesterday when he was out in the yard raking the grass and twigs into a pile up to burn. He notes starting to gag on phlegm, difficulty expectorating, feeling significantly short of breath and with a raw feeling in his throat. Symptoms resolved spontaneously.. Yesterday around 1 PM symptoms reoccurred, also with associated dizziness. He notes checking his blood pressure and heart rate on home monitor and observing a heart rate of 199 bpm. At that time he summoned his and was taken to the [facility] emergency room. Initial EKG revealed narrow complex tachycardia with ventricular rate of 212 bpm. In the ER patient received adenosine x 3 (6 and then 12 then 12 mg) without benefit. Thereafter he received 10 mg of Cardizem with improvement in rhythm as well as symptoms (chest discomfort, shortness of breath, diaphoresis). Subsequent EKGs revealed sinus rhythm in the 80s with marked ST depression inferiorly and laterally. IV amiodarone initiated after discussion with Dr. Shipman. Laboratory work notable for hypokalemia with a potassium of 3.2. Magnesium was 1.9. Troponin: 91.2 -> 1,359.3 -> 3,519.2 -> 3,853.5 -> 2,494.2 pg/mL. Patient notes no recurrence of symptoms since hospitalization. No issues overnight. Notes above symptoms reminiscent of those associated with MA back in 2007. Patient compliant with medications via a 7-day traffic and transport planner. Alcohol intake typically 6-8 beers per day. Chronic tobacco use noted, currently 1/2 pack/day. Problem List: 1. ASCVD 2. Status post anterolateral MA in June 2007 3. Catheterization at the time of the MA revealed a normal left main, 100% mid- LAD occlusion, luminal irregularities of the left circumflex and ramus intermedius, large caliber right coronary artery with 30% narrowing in the midvessel. At that time patient underwent PCI with 2 bare metal stents. 4. Preserved LV systolic function 5. Aortic stenosis 6. Mitral regurgitation 7. Paroxysmal atrial flutter 8. Status post January 2021 cardioversion 9. Status post flutter ablation at [facility] in March 2023 10. Nonsustained ventricular tachycardia when hospitalized with a septic left knee, bacteremia 11. Hypertension, hypertensive heart disease 12. Dyslipidemia 13. History of statin intolerance, severe myalgias 14. Type 2 diabetes mellitus with neuropathy 15. Vertebral artery stenosis 16. Bilateral internal carotid artery disease 17. Status post bilateral common iliac artery angioplasty and stents in December 2022 18. Status post angioplasty of the left superficial femoral and popliteal artery due to critical left lower extremity limb ischemia on December 31, 2023 19. Status post right carotid endarterectomy with reimplantation and placement of a pericardial patch for high-grade right internal carotid artery stenosis on January 20, 2024 20. Untreated obstructive sleep apnea 21. Nocturnal hypoxemia 22. Longstanding tobacco and alcohol use/abuse 23. COPD 24. Pulmonary nodule 25. GERD 26. Gastric ulcer 27. Iron deficiency anemia 28. Status post cervical spine surgery 29. Lumbar spine stenosis status post lumbar spine decompression and fusion by Dr. Khalil in September 2019. 30. Status post nerve stimulator implantation, T8-T10, rechargeable battery, August 2022 31. BPH 32. Osteoarthritis 33. Erectile dysfunction 34. Vitamin-D deficiency 35. Anxiety and depression 36. Status post transurethral resection of the prostate 37. Hospitalized in March 2024, GI bleeding, status post 2 units of packed red blood cells, IV iron. Allergies Allergy/AdvReac Type Severity Reaction Status Date / Time latex Allergy Unknown Rash Verified 07/13/24 14:00 Penicillins Allergy Unknown Rash Verified 07/13/24 14:00 adhesive AdvReac Unknown Rash Verified 07/13/24 14:00 dronedarone AdvReac Unknown Fatigued Verified 07/13/24 14:00 gemfibrozil AdvReac Unknown BODY ACHES Verified 07/13/24 14:00 NSAIDS (Non-Steroidal AdvReac Unknown TOLD NOT Verified 07/13/24 14:00 Anti-Inflamma TO TAKE - HX STOMACH ULCER Mlbbwgi-TVC-QcT Reductase AdvReac Unknown body aches Verified 07/13/24 14:00 Inhibitor [Ubtcxdy-Nij-Unj Reductase Inhibitor] Home Medications Medication Instructions Recorded Confirmed Type acetaminophen 650 mg 650 mg PO Q8H PRN ARTHRITIS PAIN 12/06/20 08/03/24 History tablet,extended release cyanocobalamin (vitamin B-12) 1,000 mcg PO QAM 08/26/22 08/03/24 History 1,000 mcg tablet (Vitamin B-12) clopidogrel 75 mg tablet (Plavix) 75 mg PO QAM 07/18/23 08/03/24 History magnesium oxide 400 mg PO QPM 09/22/23 08/03/24 History lactobacillus comb no.10 20 20,000 mmu cells PO QPM 10/08/23 08/03/24 History billion cell capsule (Probiotic) gabapentin 400 mg capsule 800 mg (2 x 400 mg) PO TID 90 days 02/13/24 08/03/24 Rx #540 caps glimepiride 1 mg tablet 1 mg PO QAM #90 tabs 03/18/24 08/03/24 Rx apixaban 5 mg tablet (Eliquis) 2.5 mg PO BID 04/16/24 08/03/24 History evolocumab 140 mg/mL subcutaneous 140 mg subcut Q14D #6 mL 06/01/24 08/03/24 Rx pen injector (Repatha SureClick) furosemide 20 mg tablet 20 mg PO QAM #90 tabs 06/01/24 08/03/24 Rx pantoprazole 40 mg tablet,delayed 40 mg PO BID #180 tabs 06/11/24 08/03/24 Rx release doxycycline hyclate 100 mg capsule 100 mg PO QAM prevention 06/22/24 08/03/24 History duloxetine 60 mg capsule,delayed 60 mg PO QAM #90 caps 07/08/24 08/03/24 Rx release (Cymbalta) metformin 500 mg tablet,extended 2,000 mg (4 x 500 mg) PO QAM #360 07/08/24 08/03/24 Rx release 24 hr tabs metoprolol succinate 25 mg 75 mg (3 x 25 mg) PO BID #270 tabs 07/08/24 08/03/24 Rx tablet,extended release 24 hr tamsulosin 0.4 mg capsule 0.4 mg PO HS #90 caps 08/02/24 08/03/24 Rx tramadol 50 mg tablet 100 mg (2 x 50 mg) PO BID PRN pain 08/02/24 08/03/24 Rx #120 tabs Patient History Medical History Hx of ventricular tachycardia hx - no recent issues per patient - f/u [facility] Cardiology (Lee Ordonez) History of bleeding ulcers Summer 2023 - treated at [facility] Hx of myocardial infarction Anterolateral MA- 2007, [place], had cardiac cath w/2 stents; hx of seeing [facility] Cardiology, currently follows with [facility] Cardiology (Lee Ordonez) Pulmonary nodule monitoring with Tadeo Yadav. History of atrial fibrillation resolved. Hx of sepsis July 2023 r/t laceration and infection - treated at [facility]. Alcohol abuse Macrocytosis hx - resolved Acute heart failure with preserved ejection fraction resolved - Fall 2023 with severe anemia Atrial tachycardia, paroxysmal pt denies any current issues Postlaminectomy syndrome of lumbar region Peripheral arterial disease Severe occlusive disease S/p L common femoral endarterectomy with bovine patch and lithotripsy of SFA and Popliteal arteries , status post bilateral common iliac artery [employer] and stents. Hypertension Sleep apnea "Mild to moderate"- unable to tolerate machine. Diabetes mellitus, type 2 NIDDM History of anemia Hx of solitary pulmonary nodule monitoring>no change in size since 2021 BPH (benign prostatic hyperplasia) Nocturia History of cardioversion 01/2021, [facility]; f/u dr. gutierrez (per medical record - pt denies/unaware) Neuropathy History of chronic back pain Neurogenic claudication due to lumbar stenosis History of COVID-19 03/18/2022>resolved 06/28/23 + home test - congestion. Tx with pill. Resolved. No current s/s. History of anxiety Paroxysmal atrial flutter 01/2021- s/p cardoversion- with excessive alcohol intake- felt to be contributing component. No AC. No recurrence per PCP records 07/29/22- - Recurrence in preop area prior to surgery - sent from ACU to ED- admitted to [facility] 07/29/22-07/30/22; f/u dr. gutierrez, [place] Bilateral carotid artery stenosis Per 11/2021 Carotid Doppler: 50-69% stenosis of right ICA, less than 50% stenosis of left ICA, greater than 50% stenosis of right ECA Antegrade flow in both vertebral arteries CAD in [place] chin artery s/p LAD stent x2 () History of gastric ulcer No recent issues Degenerative disc disease GERD (gastroesophageal reflux disease) Well controlled and stable Hyperlipidemia Surgical History History of cardiac cath (2007) x2 cardiac stents History of right-sided carotid endarterectomy REGINA Thompson (12/2023) S/P ablation of atrial flutter 04/09/2023 [facility] Hx of transesophageal echocardiography (GLADYS) for monitoring 01/2021, [facility] History of revision of total knee arthroplasty left knee, with "clean out" per pt; sepsis in left knee in 07/2023, no current issues per pt-finished 6 week abx thru PICC line 09/10/23. Hx of cardiac cath 2007, x2 stents; asa abbasi Presence of neurostimulator 2022 S/P insertion of iliac artery stent 2022, [facility], Dr. Garcia/2 stents. History of endarterectomy Left Femoral Endarterectomy with Bovine Patch 05/08/2022 & right side done 05/28/2023 Hx of cataract extraction rt/lt. History of anesthesia reaction with back surgery in 2004, disoriented, pulled catheter out at [facility] Fusion of spine ~2012, C4-C7, "HAVE 80% OF MOTION" History of lumbar surgery X 3 - 2004, 2006, 2019, [facility] History of total knee replacement right/left (remote history) Hx of transurethral resection of prostate History of esophagogastroduodenoscopy (EGD) History of colonoscopy History of nasal septoplasty History of heart artery stent 2007, x2 stent, [place]; f/u [facility] Family History Mother Heart disease Diabetes Father Cancer Head and Neck Heart disease Brother Lung cancer Carotid artery stenosis Brother Diabetes Brother Coronary heart disease Sister No problems noted. Other No family history of adverse response to anesthesia Denies family history of Ovarian cancer Prostate cancer Myocardial infarction Breast cancer Colorectal cancer Social History Smoking Status: Current every day smoker Tobacco Type: Cigarettes Age Started Using Tobacco: 18; packs per day: 0.5; Cigarettes Per Day: 10 cigarettes/day; Second Hand Exposure: No; Do You Dip or Chew Tobacco: Yes; Tobacco Cessation Education Requested by Patient: No Hx Alcohol Use: Yes Alcohol type: beer Alcohol type Comment: 6-8 beers Hx Substance Use: No Preferred Language: Wolof Communication Ability: Effective Visual Impairment: No Limitations Treater Helper Required: No Beliefs That Will Affect Care: None marital status: Current Living Situation: Spouse Current Living Situation Comment: Lives w/ at home current occupational status: retired How many Children do You have: 4 Other Information That Helps Us Care for You: No Feels Safe at Home: Yes Safety Concerns: Feels Safe At This Time Childhood Exposure to Second-Hand Smoke: Yes Diet: regular caffeine: Yes Dental Care, Regularly: Yes Physical Activity Frequency: Does not Exercise Seatbelt Use: always Sunscreen Use: No Assistive Devices: Scooter/Electric Scooter Review of Systems Review of Systems: Complete Review of Systems is as stated above, negative, or noncontributory Physical Exam Physical Exam: General: Alert and oriented x3. Diaphoretic. Cooperative. Skin: Tattoos noted on chest, upper extremities Eyes: PER. Conjunctiva pink, sclera pale HENT: Normocephalic. Atraumatic. Neck: Right carotid endarterectomy scar. Bilateral carotid bruits. No JVD. Heart: RRR, 76 bpm. Grade II/ systolic ejection murmur. Lungs: Diminished. Decrease. No wheeze. Abdomen: +BS. Soft. Nontender. No masses. No organomegaly. Extremities: Minimal edema, left greater than right. No clubbing. No cyanosis. Limited neurological examination: No focal deficit. Results & Data Vital Signs (Past 12 Hours) Vital Signs Temp Pulse Pulse Resp BP Pulse Ox O2 Del Method 08/04/24 11:07 36.9 C 72 18 123/72 94 Room Air 08/04/24 08:00 67 08/04/24 07:33 36.7 C 74 18 125/72 92 Room Air 08/04/24 02:21 36.8 C 72 18 123/70 93 Room Air Laboratory Results Cardiac Enzymes 08/03/24 08/03/24 08/03/24 Range/Units 16:03 18:37 20:47 AST 20 (13-39) U/L Troponin I High Sens 91.2 H* 1359.3 H* D 3519.2 H* D (0-20) pg/ml 08/04/24 08/04/24 Range/Units 02:17 08:37 AST 32 (13-39) U/L Troponin I High Sens 3853.5 H* 2494.2 H* D (0-20) pg/ml Lipids 08/04/24 Range/Units 02:17 Triglycerides 264 H (0-150) mg/dl Cholesterol 150 (0-200) mg/dl HDL Cholesterol 33 mg/dl Cholesterol/HDL Ratio 4.5 (0-5) CBC 08/03/24 08/04/24 Range/Units 16:03 02:17 WBC 11.24 H 6.01 (4.8-10.8) K/ul RBC 3.45 L 2.89 L (4.70-6.10) M/uL Hgb 12.2 L 10.2 L (14.0-18.0) g/dl Hct 37.0 L 31.3 L (42.0-52.0) % Plt Count 339 278 (130-400) K/uL Neut # (Auto) 7.21 H 3.72 (1.40-6.50) K/uL Lymph # (Auto) 2.43 1.23 (1.20-3.40) K/uL Bennett # (Auto) 1.11 H 0.70 H (0.11-0.59) K/uL Eos # (Auto) 0.16 0.13 (0.00-0.50) K/uL Baso # (Auto) 0.10 0.08 (0.00-0.20) K/uL Comprehensive Metabolic Panel 08/03/24 08/04/24 Range/Units 16:03 02:17 Sodium 134 L 138 (136-145) mmol/L Potassium 3.2 L 4.2 D (3.5-5.1) mmol/L Chloride 96 L 104 (98-107) mmol/L Carbon Dioxide 24 29 (21-32) mmol/L BUN 8 9 (6-23) mg/dl Creatinine 0.73 0.70 (0.6-1.4) mg/dl Glucose 112 H 135 H (70-99(Fasting)) mg/dl Calcium 9.7 8.9 (8.6-10.3) mg/dl AST 20 32 (13-39) U/L ALT 21 18 (7-52) U/L Alkaline Phosphatase 94 76 (34-104) U/L Total Protein 8.2 6.6 (6.0-8.3) gm/dl Albumin 4.1 3.3 L (3.4-5.0) gm/dl Intake and Output 08/03/24 08/04/24 08/04/24 22:59 06:59 14:59 Intake Total 360 / 660 300 / 660 Output Total 350 / 1050 700 / 1050 Balance 10 / -390 -400 / -390 Intake: IV 160 / 360 200 / 360 Amiodarone / D5w 150 mg In 100 100 / 100 ml @ 600 mls/hr IV NOW STA Rx#: [id number] Amiodarone / D5w 360 mg In 200 200 / 200 ml @ 1 MG/MIN 33.333 mls/hr IV ONE ONE Rx#:[id number] Calcium Gluconate 1,000 mg In 60 / 60 60 ml @ 240 mls/hr IV NOW STA Rx#:[id number] Oral 200 / 300 100 / 300 Output: Urine 350 / 1050 700 / 1050 Other: Weight 112.9 kg 113 kg Weight Measurement Method Built in [facility] Diagnostic Findings Telemetry: Sinus in the 70's. PAT at 1:30 AM LFT's and TFT's obtained this admission and within normal range.
[2024-08-04] MEDS: MULTIVITAMIN TAB PO SCH (11:54)
[2024-08-04] MEDS: FOLIC ACID 1 MG in SYRINGE 9.8 ML IV SCH (11:54)
[2024-08-04] MEDS: THIAMINE HCL 100 MG in SYRINGE 9 ML IV SCH (11:54)
[2024-08-04] MEDS ORDERED: AMIODARONE 200 MG TAB PO SCH (14:00)
[2024-08-04 20:18] VITALS: RESP 18
[2024-08-04] MEDS: ACETAMINOPHEN 500 MG TAB PO PRN (20:19)
[2024-08-04] MEDS: AMIODARONE 200 MG TAB PO SCH (21:04)
--- NOTE | 2024-08-05 06:09 | Electrocardiogram Report ---
Test Reason : Blood Pressure : */* mmHG Vent. Rate : 212 BPM Atrial Rate : * BPM P-R Int : * ms QRS Dur : 110 ms QT Int : 202 ms P-R-T Axes : * -17 124 degrees QTcB Int : 379 ms Supraventricular tachycardia Incomplete right bundle branch block Septal infarct , age undetermined Nonspecific ST abnormality Abnormal ECG When compared with ECG of 24-Mar-2024 16:55, Premature atrial complexes are no longer Present Supraventricular tachycardia has replaced Sinus rhythm Vent. rate has increased by 140 bpm Incomplete right bundle branch block is now Present Septal infarct is now Present Confirmed by Armand Renae ([id number]) on 08/05/2024 6:08:41 AM Referred By: REFERRED SELF Confirmed By: Armand Renae
--- NOTE | 2024-08-05 06:11 | Electrocardiogram Report ---
Test Reason : Blood Pressure : */* mmHG Vent. Rate : 80 BPM Atrial Rate : 80 BPM P-R Int : 162 ms QRS Dur : 92 ms QT Int : 380 ms P-R-T Axes : * 82 14 degrees QTcB Int : 438 ms Sinus rhythm with occasional Premature ventricular complexes and Premature atrial complexes Septal infarct (cited on or before 03-Aug-2024) Marked ST abnormality, possible inferior subendocardial injury Abnormal ECG When compared with ECG of 03-Aug-2024 16:37, No significant change was found Confirmed by Armand Renae ([id number]) on 08/05/2024 6:11:27 AM Referred By: REFERRED SELF Confirmed By: Armand Renae
--- NOTE | 2024-08-05 06:11 | Electrocardiogram Report ---
Test Reason : Blood Pressure : */* mmHG Vent. Rate : 87 BPM Atrial Rate : 75 BPM P-R Int : 150 ms QRS Dur : 94 ms QT Int : 374 ms P-R-T Axes : 51 62 19 degrees QTcB Int : 450 ms Sinus rhythm with occasional Premature ventricular complexes and Premature atrial complexes Septal infarct (cited on or before 03-Aug-2024) Marked ST abnormality, possible inferior subendocardial injury Abnormal ECG When compared with ECG of 03-Aug-2024 16:36, Fusion complexes are no longer Present Confirmed by Armand Renae ([id number]) on 08/05/2024 6:11:04 AM Referred By: REFERRED SELF Confirmed By: Armand Renae
--- NOTE | 2024-08-05 06:11 | Electrocardiogram Report ---
Test Reason : Blood Pressure : */* mmHG Vent. Rate : 83 BPM Atrial Rate : 83 BPM P-R Int : 162 ms QRS Dur : 100 ms QT Int : 360 ms P-R-T Axes : 25 51 5 degrees QTcB Int : 423 ms Sinus rhythm with Premature ventricular complexes or Fusion complexes Premature atrial complexes Septal infarct (cited on or before 03-Aug-2024) Marked ST abnormality, possible inferior subendocardial injury Abnormal ECG When compared with ECG of 03-Aug-2024 15:59, Fusion complexes are now Present Premature ventricular complexes are now Present Sinus rhythm has replaced Supraventricular tachycardia Vent. rate has decreased by 129 bpm Confirmed by Armand Renae ([id number]) on 08/05/2024 6:10:34 AM Referred By: REFERRED SELF Confirmed By: Armand Renae
--- NOTE | 2024-08-05 06:14 | Electrocardiogram Report ---
Test Reason : Blood Pressure : */* mmHG Vent. Rate : 81 BPM Atrial Rate : 81 BPM P-R Int : 142 ms QRS Dur : 92 ms QT Int : 370 ms P-R-T Axes : -48 6 37 degrees QTcB Int : 429 ms Unusual P axis, possible ectopic atrial rhythm Abnormal ECG When compared with ECG of 03-Aug-2024 16:39, Ectopic atrial rhythm has replaced Sinus rhythm Questionable change in QRS axis ST no longer depressed in Inferior leads ST no longer depressed in Lateral leads Premature ventricular complexes are no longer Present Premature atrial complexes are no longer Present Confirmed by Armand Renae ([id number]) on 08/05/2024 6:13:52 AM Referred By: REFERRED SELF Confirmed By: Armand Renae
[2024-08-05 07:49] VITALS: BP 141/77; PULSE 66; TEMP 97.9; O2SAT 94
[2024-08-05 08:26] LABS: Hematocrit (blood only) 34.5 % (42.0-52.0); Hemoglobin 11.1 g/dl (14.0-18.0)
[2024-08-05 08:48] LABS: Albumin Globulin Ratio 1.1 (0.9-2); Albumin Level 3.6 gm/dl (3.4-5.0); BUN Creatinine Ratio 14.7 (10-20); Bilirubin,Total 0.3 mg/dl (0.2-1.0); Creatinine Clr Calc Pharmacy 122.4 ml/min; Globulin 3.3 gm/dl (2.5-4.0); Magnesium 1.8 mg/dl (1.7-2.4); Potassium 3.8 mmol/L (3.5-5.1); Total Protein 6.9 gm/dl (6.0-8.3)
--- NOTE | 2024-08-05 10:00 | Discharge Summary ---
Discharge Summary Date of Service August 05, 2024 Principal Dx & Hospital Course #1 = Principal Diagnosis (1) SVT (supraventricular tachycardia): Patient on 2.5 mg BID Eliquis due to bleeding. Continue metoprolol succinate 75 mg BID and furosemide 20 mg daily. Electrolytes optimized - Given Mg 1g x 2, K 40 mg PO x 2, and 1 g calcium gluconate. cards consult - pending Con't amio gtt for now Changed to amiodarone po, pt HR stable overnight. (2) Diabetes mellitus, type 2: Hold outpatient meds while admitted. SSI insulin with basal 10 units BID. Can adjust as needed. (3) Presence of bare metal stent in anterior descending branch of left coronary artery: Continue Plavix and Repatha. Per chart review patient did not tolerate statin therapy. (4) Tobacco use: Patient may have COPD. Strongly recommend smoking cessation. (5) Alcohol use: Strongly recommend cessation. (6) Obesity: There may be a component of OHS/JJ. Consider outpatient sleep study. (7) A-fib: On Eliquis 2.5 mg BID and metoprolol 75 mg BID (8) Elevated troponin: -likely rate related -trending down Plan Code status: full DVT ppx: on Eliquis 2.5 mg BID FENGI: HH and carb consistent Dispo: PCU/Tele Admission HPI Per Admitting Provider 64 y/o male with a PMHx of a fib on Eliquis 2.5 mg BID, CAD s/p [place] with PCI and SAE placement, GERD, HLD - statin intolerant, chronic pain, and BPH presents with palpitations, elevated HR, lightheadedness/fatigue. Patient had a short bout of palpitations 3/10 that did not last long. Had a few episodes today - throwing the trash over the side of the deck, while moving a vehicle, and then most notably when he got out of the car after moving it. He checked his pulse and it was 199. Patient called his to take him to the hospital. Patient did have a few beers today with a neighbor and is a regular smoker. Patient has a history of a fib, but he has not had a pulse this elevated before. No chest pain at that time. Did have some shortness of breath. In the ED: Patient was found to be in SVT in the 200s. Treated with adenosine 6 mg x 1, 12 mg x 2 - SVT broke. Patient then experienced significant SOB, CP, and diaphoresis, which resolved on its own. Patient was also given dilt 10 mg x 1 and the hospitalist team was consulted for admission. Discharge Exam GENERAL APPEARANCE NAD, activity normal for age, well developed/ well nourished, no cyanosis, pallor, or diaphoresis. EYES lids/conjunctiva normal. EARS/NOSE/THROAT Mucous membranes moist, nares normal, lips/teeth normal uvula midline without oral pharyngeal erythema, exudate or swelling TMs normal bilaterally. No lymphangitis/lymphedema. HEAD/NECK normocephalic atraumatic, no facial trauma, neck is supple. RESPIRATORY respiratory effort normal, speaks in full sentences, no tripod position, no accessory muscle use. Lungs clear to auscultation without rhonchi, wheezes, rales CARDIAC Regular rate and rhythm, no edema. ABDOMINAL Soft, ND/NT. No evidence of fluid wave. No pulsatile masses on exam, rebound tenderness, De La Cruz sign or pain over Mcburney's point. MUSCLES/EXTREMITIES No abnormal range of motion, no swelling. SKIN Warm, pink and dry. No rashes, dermatoses, petechiae or lesions. NEUROLOGICAL Speech is clear and appropriate. Normal level of consciousness. Gait and coordination are normal. 5/5 strength in all extremities. PSYCH Normal mood and affect. Judgement/competence is appropriate Discharge Plan Discharge Items Patient Disposition: Home - Self-Care Reason For Visit: SVT Discharge Diagnosis: SVT Activity: Resume your previous activity Non-emergency contact: Primary Care Provider Call non-emergency contact if: you have any medication questions Follow-up/Referrals: Nitish Lam MD [Primary Care Provider] - Diet: Regular Addtl Attending Provider Instructions: Follow up with PMD in 2 weeks Pending Studies at Discharge: No Stand-Alone Forms: My [employer] Smoking Cessation Medications and DC Order Prescriptions: New amiodarone 200 mg Tablet 200 mg PO TID Qty: 90 0RF Continued gabapentin 400 mg capsule 800 mg PO TID 90 Days Qty: 540 3RF glimepiride 1 mg tablet 1 mg PO QAM Qty: 90 3RF furosemide 20 mg tablet 20 mg PO QAM Qty: 90 3RF Repatha SureClick 140 mg/mL pen injector 140 mg subcut Q14D Qty: 6 3RF Rx Instructions: JUST RESTARTED pantoprazole 40 mg tablet,delayed release (DR/EC) 40 mg PO BID Qty: 180 3RF metformin 500 mg tablet extended release 24 hr 2,000 mg PO QAM Qty: 360 3RF metoprolol succinate 25 mg tablet extended release 24 hr 75 mg PO BID Qty: 270 3RF duloxetine [Cymbalta] 60 mg capsule,delayed release(DR/EC) 60 mg PO QAM Qty: 90 3RF tamsulosin 0.4 mg capsule 0.4 mg PO HS Qty: 90 3RF tramadol 50 mg tablet 100 mg PO BID PRN (Reason: pain) Qty: 120 0RF magnesium oxide 400 mg magnesium capsule 400 mg PO QPM acetaminophen 650 mg Tablet Extended Release 650 mg PO Q8H PRN (Reason: ARTHRITIS PAIN) Patient Comments: takes at least 2 tablets every day. cyanocobalamin (vitamin B-12) [Vitamin B-12] 1,000 mcg Tablet 1,000 mcg PO QAM clopidogrel [Plavix] 75 mg tablet 75 mg PO QAM Probiotic 20 billion cell Capsule 20,000 mmu cells PO QPM Rx Instructions: administer with a meal doxycycline hyclate 100 mg capsule 100 mg PO QAM Eliquis 5 mg tablet 2.5 mg PO BID Discharge Orders: Discharge Order (Routine); Ordered 08/05/24 Ordered By: Jabari Bolivar/Other Patient Handouts: Managing Type 2 Diabetes Admission Data Admit Date/Time: 08/03/24 18:15 Attending Provider: Jabari Arellano Admit Provider: Princess Al Primary Care Provider: Nitish Lam Other Providers: Orville Conklin; Tong Shipman Hospital Stay Data Consultations 08/03/24 17:40 ED Decision to Admit Stat 08/03/24 18:32 Consult Cardiology Routine Pending Results Patient Have Any Pending Studies at Discharge: No Discharge Instructions Given to Patient (Per Discharging Provider) Follow up with PMD in 2 weeks Total Time Total Time Spent Total Time Spent (In Minutes): 50 Coding Level of Care Code 82179 INP/OBS DISCH >30 MIN Diagnoses SVT (supraventricular tachycardia) I47.10 Diabetes mellitus, type 2 E11.9 Presence of bare metal stent in anterior descending branch of left coronary artery Z95.5 Tobacco use Z72.0 Alcohol use F10.90 Obesity E66.9 A-fib I48.91 Elevated troponin R77.8
--- NOTE | 2024-08-05 10:13 | Cardiology Progress Note ---
Date of Service August 05, 2024 Assessment & Plan (1) SVT (supraventricular tachycardia): (2) ASCVD (arteriosclerotic cardiovascular disease): (3) Tobacco use: (4) Alcohol use: (5) Aortic valve stenosis: Plan Complex 64-year-old male admitted with symptomatic supraventricular tachycardia nonresponsive to adenosine, concerning for possible atrial flutter with 1:1 conduction (history of ? partial atrial flutter ablation in March 2023); supply-demand ischemia with peak high sensitivity troponin of 3,853.5 pg/mL. Resting echocardiography with preserved LV systolic function, EF 50 to 55% without regional wall motion abnormality. Moderate concentric LVH noted along with mild to moderate aortic valve stenosis. Recommendations: * Amiodarone 200 mg by mouth twice per day * Continue prior to arrival metoprolol succinate, and all other cardiac medications. * Outpatient Electrophysiology Referral; patient considering [place] versus [facility] * Outpatient General Cardiology follow-up in 3 weeks, with EKG Admission and Anticipated Discharge Date Admission Date: August 03, 2024 Supervising Physician Co-Signing Physician Notes Patient was seen and personally examined. Full assessment and plan as advanced provider above documented. Care and management discussed in detail and personally endorsed Clinically improved since hospitalization. No further arrhythmias with patient transition to oral amiodarone Stable for discharge today Discussed management of recurrent atrial flutter with one-to-one conduction high rate with resultant demand ischemia Amiodarone initially to prevent further recurrences Arrangements being made for patient to reconnect with [facility] Dr. Kate, electrophysiology for further reassessment and treatment Subjective Patient seen and examined. Chart, medications, telemetry reviewed. No complaints. No chest pain, shortness of breath, or palpitations. Notes plans to abstain from drinking alcohol hereinafter Telemetry: Sinus rhythm in the 60s and 70s. EKG this morning demonstrates sinus rhythm at 69 bpm. QTc 441 ms. Review of Systems Review of Systems: Complete Review of Systems is as stated above, negative, or noncontributory Physical Exam Physical Exam: General: Alert and oriented x3. No acute distress. Pleasant. Comfortable. Cooperative. Skin: + Tattoos Eyes: PER. Conjunctiva pink, sclera pale HENT: Normocephalic. Atraumatic. Neck: Right carotid endarterectomy scar. Bilateral carotid bruits. No JVD. Heart: RRR, 66 bpm. Grade II/ systolic ejection murmur. Lungs: Diminished. Decreased. No wheeze. Abdomen: +BS. Soft. Nontender. No masses. No organomegaly. Extremities: No edema. No clubbing. No cyanosis. Limited neurological examination: No focal deficit. Results & Data Vital Signs (Past 12 Hours) Vital Signs Temp Pulse Resp BP Pulse Ox O2 Del Method 08/05/24 07:48 36.6 C 66 18 141/77 H 94 Room Air 08/05/24 03:21 36.3 C L 62 18 113/67 95 Room Air 08/04/24 23:14 36.6 C 72 18 143/75 H 94 Room Air Laboratory Results Cardiac Enzymes 08/04/24 08/05/24 Range/Units 14:43 08:02 AST 20 (13-39) U/L Troponin I High Sens 1669.8 H* D (0-20) pg/ml CBC 08/05/24 Range/Units 08:02 Hgb 11.1 L (14.0-18.0) g/dl Hct 34.5 L (42.0-52.0) % Comprehensive Metabolic Panel 08/05/24 Range/Units 08:02 Sodium 138 (136-145) mmol/L Potassium 3.8 (3.5-5.1) mmol/L Chloride 103 (98-107) mmol/L Carbon Dioxide 29 (21-32) mmol/L BUN 11 (6-23) mg/dl Creatinine 0.75 (0.6-1.4) mg/dl Glucose 226 H (70-99(Fasting)) mg/dl Calcium 9.0 (8.6-10.3) mg/dl AST 20 (13-39) U/L ALT 19 (7-52) U/L Alkaline Phosphatase 73 (34-104) U/L Total Protein 6.9 (6.0-8.3) gm/dl Albumin 3.6 (3.4-5.0) gm/dl Intake and Output 08/04/24 08/05/24 08/05/24 22:59 06:59 14:59 Intake Total 740 / 2230.937 700 / 2230.937 Output Total 900 / 0 900 / 2050 Balance -160 / 180.937 -200 / 180.937 Intake: IV 200 / 390.937 Amiodarone / D5w 360 mg In 200 200 / 390.937 ml @ 0.5 MG/MIN 16.667 mls/hr IV .Q12H [facility] Rx#:[id number] Oral 740 / 1840 500 / 1840 Output: Urine 900 / 0 900 / 0 Other: # Unmeasured Voids 1 Weight 113.761 kg 113.761 kg Weight Measurement Method Built in [facility] Patient Weight 08/06/24 06:59 Weight 113.761 kg
--- NOTE | 2024-08-09 14:36 | Electrocardiogram Report ---
Test Reason : Blood Pressure : */* mmHG Vent. Rate : 69 BPM Atrial Rate : 69 BPM P-R Int : 148 ms QRS Dur : 102 ms QT Int : 412 ms P-R-T Axes : * 58 20 degrees QTcB Int : 441 ms Ectopic atrial rhythm Poor R wave progression, consider anterior MO vs. lead placement vs. LVH Confirmed by Nitish Casillas ([id number]) on 08/09/2024 2:36:02 PM Referred By: REFERRED SELF Confirmed By: Nitish Casillas
== END 2024-08-05 11:40 | disposition home or self-care (01) | DRG 309 ==
LOC: ED 15:56 → 2S 18:15 → SUATTDRO 18:15 → 2S 19:56